=== PATIENT | male | born 1945 | race Caucasian/White ===

== ENCOUNTER 2016-05-31 23:19 | Inpatient (IN) | payer OTHER, BC ==
[2016-05-31 23:43] VITALS: BMI 30.3
--- NOTE | 2016-06-01 01:01 | PDOC ---
History of Present Illness - General History Source: Patient <Ilya Ashford - Last Filed: 06/01/16 03:55> - General History Source: Patient Exam Limitations: No Limitations - History of Present Illness Initial Comments: 06/01/16 01:01 The patient is a 71 year old male with a significant past medical history of diabetes, GOUT, HTN, HLD, CAD s/p stents x3 and hiatal hernia who presents to the ED with complaints of shortness of breath for 2 weeks. The patient reports shortness of breath worsened with exertion. He state he is unable to go up half a flight of stairs without having to catch his breath. He notes he sleeps in a chair. Patient also reports pallor and generalized weakness associated with present symptoms. Patient states that for the last several months he has had recurrent pneumonia. He states he had a bronchoscopy and drained his right lung in March. He visited Dr. Waters last week and was diagnosed with a sinus infection and put on an antibiotic. Patient visited Dr. Trujillo yesterday and is scheduled for a bronchoscopy of the right lung on Friday. Denies fevers or chills. Denies chest pain or cough. Denies abdominal pain, nausea, vomiting, or diarrhea. Denies any other symptoms. PCP: Dr. Boris Rojas <Daniela Cramer - Last Filed: 06/01/16 07:01> - General Chief Complaint: Shortness of Breath Stated Complaint: SOB Time Seen by Provider: 06/01/16 00:56 Past History - Past Medical History Anemia: No Asthma: No Cancer: Yes (SKIN) Cardiac Disorders: Yes (STENTS ) CVA: No COPD: No (hx pneumonia) CHF: Yes Dementia: No Diabetes: Yes GI Disorders: No Disorders: No HTN: Yes Hypercholesterolemia: Yes Liver Disease: No Seizures: No Thyroid Disease: No - Surgical History Abdominal Surgery: Yes (HERNIA) Cardiac Surgery: Yes (STENTS /) Lung Surgery: (bronchoscopy 03/17) - Immunization History Td Vaccination: Yes Immunization Up to Date: Yes - Psycho/Social/Smoking Cessation Hx Anxiety: Yes Suicidal Ideation: No Smoking Status: No Smoking History: Unknown if ever smoked Have you smoked in the past 12 months: No Number of Cigarettes Smoked Daily: 0 If you are a former smoker, when did you quit?: 35 YEARS AGO 'Breaking Loose' booklet given: 08/15/15 Hx Alcohol Use: No Drug/Substance Use Hx: No Substance Use Type: None <Ilya Ashford - Last Filed: 06/01/16 03:55> <Daniela Cramer - Last Filed: 06/01/16 07:01> - Past Medical History Allergies/Adverse Reactions: Allergies Allergy/AdvReac Type Severity Reaction Status Date / Time pioglitazone HCl [From Actos] AdvReac Severe CHF Verified 05/31/16 23:39 Home Medications: Ambulatory Orders Allopurinol [Zyloprim -] 300 mg PO DAILY 04/03/14 Carvedilol 25 mg PO BID 04/03/14 Cholecalciferol (Vitamin D3) [Vitamin D3] 1,000 unit PO DAILY 04/03/14 Furosemide [Lasix -] 20 mg PO DAILY 04/03/14 Glyburide 10 mg PO BID 04/03/14 Aspirin [Ecotrin] 81 mg PO DAILY 03/26/16 Gabapentin 600 mg PO HS 03/26/16 Vitamin B Complex 1 each PO DAILY 03/26/16 Review of Systems - Review of Systems Able to Perform ROS?: Yes Comments:: 06/01/16 01:01 CONSTITUTIONAL: + generalized weakness No reported: Fever, Chills, Diaphoresis, Malaise, Loss of Appetite HEENT: No reported: Rhinorrhea, Nasal Congestion, Throat Pain, Throat Swelling, Difficulty Swallowing, Mouth Swelling, Ear Pain, Eye Pain, Visual Changes CARDIOVASCULAR: No reported: Chest Pain, Syncope, Palpitations, Irregular Heart Rate, Lightheadedness, Peripheral Edema RESPIRATORY: + Shortness of Breath, SOB with Exertion No reported: Cough, Orthopnea, Wheezing, Stridor, Hemoptysis GASTROINTESTINAL: No reported: Abdominal pain, Abdominal Distension, Nausea, Vomiting, Diarrhea, Constipation, Melena, Hematochezia GENITOURINARY: No reported: Dysuria, Frequency, Urgency, Hesitancy, Flank Pain, Genital Pain MUSCULOSKELETAL: No reported: Myalgia, Arthralgia, Joint Swelling, Back pain, Neck Pain SKIN: + pallor No reported: Rash, Itching HEMEATOLOGIC/IMMUNOLOGIC: No reported: Easy Bleeding, Easy Bruising, Lymphadenopathy, Frequent infections ENDOCRINE: No reported: Unexplained Weight Gain, Unexplained Weight Loss, Heat Intolerance , Cold Intolerance NEUROLOGIC: No reported: Headache, Focal Weakness, Paresthesias, Vertigo, Lightheadedness, Unsteady Gait, Seizure, Mental Status Changes, Incontinence PSYCHIATRIC: No reported: Anxiety, Depression All Other Systems: Reviewed and Negative <Daniela Cramer - Last Filed: 06/01/16 07:01> *Physical Exam - Vital Signs Last Vital Signs Temp Pulse Resp BP Pulse Ox 98.2 F 90 20 137/75 95 05/31/16 23:41 05/31/16 23:41 05/31/16 23:41 05/31/16 23:41 05/31/16 23:41 <BartraIlya - Last Filed: 06/01/16 03:55> - Vital Signs Last Vital Signs Temp Pulse Resp BP Pulse Ox 98.2 F 90 20 137/75 95 05/31/16 23:41 05/31/16 23:41 05/31/16 23:41 05/31/16 23:41 05/31/16 23:41 - Physical Exam Comments: 06/01/16 01:01 GENERAL: Well developed, well nourished. Awake and alert. No acute distress. HEENT: Normocephalic, atraumatic. PERRLA, EOMI. No conjunctival pallor. Sclera are non- icteric. Moist mucous membranes. Oropharynx is clear. NECK: Supple. Full ROM. No JVD. Carotid pulses 2+ and symmetric, without bruits. No thyromegaly. No lymphadenopathy. CARDIOVASCULAR: Regular rate and rhythm. No murmurs, rubs, or gallops. Distal pulses are 2+ and symmetric. PULMONARY: + diffuse wheezing most prominent in the left upper lobe. No rales or rhonchi. ABDOMINAL: Soft. Non-tender. Non-distended. No rebound or guarding. No organomegaly. Normoactive bowel sounds. MUSCULOSKELETAL Normal range of motion at all joints. No bony deformities or tenderness. No CVA tenderness. EXTREMITIES: No cyanosis. No clubbing. No edema. No calf tenderness. SKIN: Warm and dry. Normal capillary refill. No rashes. No jaundice. NEUROLOGICAL: Alert, awake, appropriate. Cranial nerves 2-12 intact. No deficits to light touch and temperature in face, upper extremities and lower extremities. No motor deficits in the in face, upper extremities and lower extremities. Normoreflexic in the upper and lower extremities. Normal speech. Toes are down- going bilaterally. Gait is normal without ataxia. PSYCHIATRIC: Cooperative. Good eye contact. Appropriate mood and affect. <Daniela Cramer - Last Filed: 06/01/16 07:01> Heart Score/ECG Review #1 06/01/16 01:01 Reviewed and interpreted by Dr. Ashford: Impression: Sinus rhythm with occasional premature ventricular complexes Possible Left atrial enlargement Left axis deviation Anteroseptal infarct, age undetermined T wave abnormality, consider lateral ischemia Vent rate 93 bpm [place] interval 192 ms QRS duration 100 ms <Daniela Cramer - Last Filed: 06/01/16 07:01> ED Treatment Course - LABORATORY CBC & Chemistry Diagram: 06/01/16 01:20 06/01/16 01:20 <Ilya Ashford - Last Filed: 06/01/16 03:55> - LABORATORY CBC & Chemistry Diagram: 06/01/16 01:20 06/01/16 01:20 - RADIOLOGY Radiograph Interpretation: 06/01/16 07:01 CHEST X-RAY: Impression: Pneumonia Reported by: Dr. Ashford <Daniela Cramer - Last Filed: 06/01/16 07:01> Medical Decision Making - Medical Decision Making 06/01/16 03:55 Dr. Ashford: The scribe's documentation has been prepared under my direction and personally reviewed by me in its entirery. I confirm that the note above accurately reflects all work, treatment, procedures, and medical decision making performed by me. <Ilya Ashford - Last Filed: 06/01/16 03:55> *DC/Admit/Observation/Transfer - Discharge Dispostion Admit: Yes <Ilya Ashford - Last Filed: 06/01/16 03:55> <Daniela Cramer - Last Filed: 06/01/16 07:01> Diagnosis at time of Disposition: Pneumonia Qualifiers: Laterality: right Lung location: lower lobe of lung - Referrals
[2016-06-01 01:46] LABS: BASOPHIL 0.9 % (0-2.0); EOSINOPHIL 5.3 % (0-4.5); MCH 29.5 pg (25.7-33.7); MCHC 32.3 g/dl (32.0-35.9); MEAN CELL VOLUME 91.4 fl (80-96); MEAN PLT VOLUME 8.3 fl (7.5-11.1); NEUTROPHILS 54.9 % (42.8-82.8); PLATELET COUNT 168 K/MM3 (134-434); RDW 19.6 % (11.9-15.9); WHITE BLOOD COUNT 5.7 K/mm3 (4.0-10.0)
[2016-06-01 02:38] LABS: ALBUMIN 2.7 g/dl (3.4-5.0); ANION GAP 11 (8-16); BILIRUBIN,TOTAL 0.7 mg/dL (0.2-1.0); CALCIUM 8.4 mg/dL (8.5-10.1); CO2 28 mmol/L (21-32); CREATININE 1.1 mg/dL (0.7-1.3); GLUCOSE,RANDOM 170 mg/dL (74-106); MAGNESIUM 1.9 mg/dL (1.8-2.4); SGOT/AST 13 U/L (15-37); SGPT/ALT 29 U/L (12-78); TOT PROT 7.2 g/dl (6.4-8.2)
[2016-06-01 02:40] LABS: ALK PHOS 129 U/L (45-117)
[2016-06-01] MEDS ORDERED: LORAZEPAM CARPU-JECT 2 MG/ML DISP.SYRIN IVPUSH ONE ×2 (02:48→05:49)
[2016-06-01] MEDS ORDERED: LORAZEPAM CARPU-JECT 2 MG/ML DISP.SYRIN ONE ×2 (02:52→05:50)
[2016-06-01] MEDS ORDERED: LEVOFLOXACIN 750 MG IVPB 150 ML IVPB ONE ×2 (03:53→22:00)
--- NOTE | 2016-06-01 04:02 | PN ---
Teaching Attending Note ATTENDING PHYSICIAN STATEMENT I saw and evaluated the patient. I reviewed the resident's note and discussed the case with the resident. I agree with the resident's findings and plan as documented. SUBJECTIVE: OBJECTIVE: ASSESSMENT AND PLAN:
[2016-06-01] MEDS ORDERED: FUROSEMIDE 40 MG/4 ML INJECTABLE VIAL IVPUSH ONE (04:04)
--- NOTE | 2016-06-01 04:05 | PN ---
<Jacqueline Sharma - Last Filed: 06/01/16 04:04> Teaching Attending Note Name of Resident: Marisela Jenkins ATTENDING PHYSICIAN STATEMENT I saw and evaluated the patient. I reviewed the resident's note and discussed the case with the resident. I agree with the resident's findings and plan as documented. SUBJECTIVE: OBJECTIVE: ASSESSMENT AND PLAN: <Flor Villayna - Last Filed: 06/01/16 04:54> Teaching Attending Note ATTENDING PHYSICIAN STATEMENT I saw and evaluated the patient. I reviewed the resident's note and discussed the case with the resident. I agree with the resident's findings and plan as documented. SUBJECTIVE: The patient is a 71 year old male with a significant past medical history of diabetes, HTN, HLD, CAD s/p stents x3, gout and hiatal hernia who presents to the ED with complaints of shortness of breath for two weeks. He notes his SOB is worse with exertion. He also reports severe orthopnea. States that he had recurrent pneumonia and s/p bronch of right lung. He notes recent dx of sinusitis was placed on abx. He states he has a bronchoscopy of right lung on 06/04. He denies any chest pain or pressure. He also notes that SOB has improved. OBJECTIVE: Physical: VS: Last Vital Signs Temp Pulse Resp BP Pulse Ox 98.2 F 90 20 137/75 95 05/31/16 23:41 05/31/16 23:41 05/31/16 23:41 05/31/16 23:41 05/31/16 23:41 GEN: resting in bed, no distress HEENT: NCAT, PERRLA CARD: RRR, S1S2 RESP: decreased breath sounds at bases bilaterally ABD: soft, non tender, BWS x4 EXT: 2+ pitting edema up to mid calf bilateral LE LABS: CBCD WBC 5.7 K/mm3 (4.0-10.0) D 06/01/16 01:20 RBC 4.03 M/mm3 (4.00-5.60) 06/01/16 01:20 Hgb 11.9 GM/dL (11.7-16.9) 06/01/16 01:20 Hct 36.9 % (35.4-49) 06/01/16 01:20 MCV 91.4 fl (80-96) 06/01/16 01:20 MCHC 32.3 g/dl (32.0-35.9) 06/01/16 01:20 RDW 19.6 % (11.9-15.9) H 06/01/16 01:20 Plt Count 168 K/MM3 (134-434) 06/01/16 01:20 MPV 8.3 fl (7.5-11.1) D 06/01/16 01:20 CMP Sodium 145 mmol/L (136-145) 06/01/16 01:20 Potassium 4.2 mmol/L (3.5-5.1) 06/01/16 01:20 Chloride 106 mmol/L (98-107) 06/01/16 01:20 Carbon Dioxide 28 mmol/L (21-32) 06/01/16 01:20 Anion Gap 11 (8-16) 06/01/16 01:20 BUN 27 mg/dL (7-18) H 06/01/16 01:20 Creatinine 1.1 mg/dL (0.7-1.3) 06/01/16 01:20 Creat Clearance w eGFR > 60 (>60) 06/01/16 01:20 Calcium 8.4 mg/dL (8.5-10.1) L 06/01/16 01:20 Total Bilirubin 0.7 mg/dL (0.2-1.0) 06/01/16 01:20 AST 13 U/L (15-37) L D 06/01/16 01:20 ALT 29 U/L (12-78) 06/01/16 01:20 Alkaline Phosphatase 129 U/L (45-117) H 06/01/16 01:20 Total Protein 7.2 g/dl (6.4-8.2) 06/01/16 01:20 Albumin 2.7 g/dl (3.4-5.0) L 06/01/16 01:20 ASSESSMENT AND PLAN: The patient is a 71 year old male with a significant past medical history of diabetes, HTN, HLD, CAD s/p stents x3, who presents with SOB being admitted for CHF and community acquired pneumonia. 1.) Community acquired pneumonia - Continue with Levaquin - Urine antigens - Sputum culture - CT chest with contrast 2.) CHF - ECHO in AM - No prior ECHO on record - Trend troponin - Chest Xray - mild vascular congestion, patchy infiltrates bilaterally - Fluid restrict - Strict I&O - Sodium restricted diet - Daily weight - S/p Lasix 40 IV 3.) Diabetes - Finger sticks - Q4 RISS 4.) CAD - Continue home meds 5.) HTN - Continue home meds 6.) HLD - Continue Statin - Continue home meds 7.) DVT ppx - Heparin 5,000 Q8 Admit to Med-Surg. Documentation prepared by Jamila Villa, acting as medical device sales for Jacqueline Sharma D.O.
--- NOTE | 2016-06-01 04:17 | HP ---
CHIEF COMPLAINT: I have trouble breathing PCP:Dr. Boris Rojas HISTORY OF PRESENT ILLNESS: This is a 71 YO M with PMH of DM, HTN, HLD, CHF, CAD s/p stents x3, skin CA, GOUT and hiatal hernia, who presents due to worsening SOB x 2 weeks. He reports worsening exertional SOB, unable to climb half a flight of stairs, worsening orthopnea (sleeps litting up) and cough productive of clear flem. He also reports generalized weakness and LE edema. In March he was hospitalized with R middle and lower lobe PNA and had a bronchoscopy of R lung done by Dr Paul. 1 Month ago he had a chest CT that showed persistent R mid lobe atelectais, scarring and infiltrate and persistent RLL atelectasis, scarring and trace effusion. 1 W ago he was diagnosed by [facility] with sinus infection due to copious green nasal discharge and was placed on abx with symptom resolution. He saw Dr. Trujillo yesterday and is scheduled for a bronchoscopy of the R lung on Fri. He denies f/c, chest pain, palpitations, hemoptysis, n/v, diarrhea/ costipation or dysuria. ER course was notable for: (1)lasix, levaquion (2)cxr (3)labs Recent Travel: denies PAST MEDICAL HISTORY: as above PAST SURGICAL HISTORY: hernia repair, cardiac stents 1994, 1995, broncoscopy Social History: lives at home Smoking: denies Alcohol:denies Drugs: denies Allergies pioglitazone HCl [From Actos] Adverse Reaction (Severe, Verified 05/31/16 23:39) HOME MEDICATIONS: Medication Instructions Recorded Allopurinol [Zyloprim -] 300 mg PO DAILY 04/03/14 Carvedilol 25 mg PO BID 04/03/14 Cholecalciferol (Vitamin D3) 1,000 unit PO DAILY 04/03/14 [Vitamin D3] Furosemide [Lasix -] 20 mg PO DAILY 04/03/14 Glyburide 10 mg PO BID 04/03/14 Aspirin [Ecotrin] 81 mg PO DAILY 03/26/16 Gabapentin 600 mg PO HS 03/26/16 Vitamin B Complex 1 each PO DAILY 03/26/16 REVIEW OF SYSTEMS CONSTITUTIONAL: Absent: fever, chills, loss of appetite, weight change HEENT: Absent: rhinorrhea, throat pain, throat swelling, difficulty swallowing, ear pain CARDIOVASCULAR: Absent: chest pain, syncope, palpitations, irregular heart rate, lightheadedness RESPIRATORY: Absent: wheezing, stridor, hemoptysis GASTROINTESTINAL: Absent: abdominal pain, abdominal distension, nausea, vomiting, diarrhea, constipation GENITOURINARY: Absent: dysuria MUSCULOSKELETAL: Absent: myalgia, arthralgia SKIN: Absent: rash, itching, pallor HEMATOLOGIC/IMMUNOLOGIC: Absent: frequent infections ENDOCRINE: Absent: unexplained weight gain, unexplained weight loss NEUROLOGIC: Absent: headache, focal weakness or paresthesias, dizziness, unsteady gait, seizure PSYCHIATRIC: Absent: anxiety, depression PHYSICAL EXAMINATION Vital Signs - 24 hr 05/31/16 23:41 Temperature 98.2 F Pulse Rate 90 Respiratory 20 Rate Blood Pressure 137/75 O2 Sat by Pulse 95 Oximetry (%) GENERAL: Awake, alert, and fully oriented, in no acute distress. HEAD: Normal with no signs of trauma. EYES: Pupils equal, round and reactive to light, extraocular movements intact, sclera anicteric, conjunctiva clear. EARS, NOSE, THROAT: oropharynx clear without exudates. Moist mucous membranes. NECK: supple without lymphadenopathy LUNGS: reduced breath sounds at bases b/l. bibasilar ronchi HEART: Regular rate and rhythm, normal S1 and S2 ABDOMEN: Soft, nontender, not distended, normoactive bowel sounds MUSCULOSKELETAL: No CVA tenderness. UPPER EXTREMITIES: 2+ pulses, warm, well-perfused. No peripheral edema. LOWER EXTREMITIES: 2+ pulses, warm, well-perfused. No calf tenderness. 2+ peripheral edema up to knees b/l. NEUROLOGICAL: Cranial nerves II-XII grossly intact. Slurred speech. PSYCHIATRIC: Cooperative. Good eye contact. Appropriate mood and affect. SKIN: Warm, dry Laboratory Results - last 24 hr 06/01/16 06/01/16 06/01/16 01:20 01:20 01:45 WBC 5.7 D RBC 4.03 Hgb 11.9 Hct 36.9 MCV 91.4 MCHC 32.3 RDW 19.6 H Plt Count 168 MPV 8.3 D Neutrophils % 54.9 Lymphocytes % 29.3 Monocytes % 9.6 Eosinophils % 5.3 H Basophils % 0.9 Sodium 145 Potassium 4.2 Chloride 106 Carbon Dioxide 28 Anion Gap 11 BUN 27 H Creatinine 1.1 Creat Clearance w eGFR > 60 Random Glucose 170 H D Lactic Acid 1.007 Calcium 8.4 L Magnesium 1.9 Total Bilirubin 0.7 AST 13 L D ALT 29 Alkaline Phosphatase 129 H B-Natriuretic Peptide 6071.45 H Total Protein 7.2 Albumin 2.7 L ASSESSMENT/PLAN: This is a 71 YO M with PMH of DM, HTN, HLD, CHF, CAD s/p stents x3, skin CA, GOUT and hiatal hernia, who presents due to worsening SOB x 2 weeks. + exertional SOB, +orthopnea +cough productive of clear flem +generalized weakness + LE edema. chest CT May 01: persistent R mid lobe atelectais, scarring and infiltrate and persistent RLL atelectasis, scarring and trace effusion. Today CXR: persistent R mid lobe atelectasisi compared to March but increased b/l vessel cephalization and bibasilar opacities Acute on chronic CHF exacerbation vs PNA -imaging and clinical presentation more consistent with chf exacerbation -BNP elevated 6071, no baseline to compare -trend trop -Ct chest w/o contrast -TTE -volume overloaded; s/p IV lasix; consider daily IV lasix -am BMP -Strict I and O, daily weights -continue levaquin -f/u blood cultures -Pulm consult HTN -diurese with IV lasix. -ideally should be on Acei or Arb HLD -lipid panel CAD -resume coreg 25 bid once confirmed -resume asa 81 once confirmed -resume clopidogrel once confirmed DM -fingerstick TIDAC -85 Kg weight based -Levemir 21 u HS -novolog 7 u TID AC -Sliding scale Gout -currently asymptomatic -resume allopurinol and colchicine once confirmed FEN diurese stable lytes DVT GI PPX: SCD, hep, PPI Diabetic diet Dispo: admit to med surge Problem List - Problem (1) Pneumonia Code(s): J18.9 - PNEUMONIA, UNSPECIFIED ORGANISM Qualifiers: Laterality: right Lung location: lower lobe of lung (2) CAD (coronary artery disease) Code(s): I25.10 - ATHSCL HEART DISEASE OF [place] CORONARY ARTERY W/O ANG PCTRS (3) HTN (hypertension) Code(s): I10 - ESSENTIAL (PRIMARY) HYPERTENSION (4) Hyperlipidemia Code(s): E78.5 - HYPERLIPIDEMIA, UNSPECIFIED (5) Insulin dependent diabetes mellitus Code(s): E11.9 - TYPE 2 DIABETES MELLITUS WITHOUT COMPLICATIONS Z79.4 - SKILLED NURSING (CURRENT) USE OF INSULIN (6) CHF (congestive heart failure) Code(s): I50.9 - HEART FAILURE, UNSPECIFIED (7) CHF (congestive heart failure), NYHA class III Code(s): I50.9 - HEART FAILURE, UNSPECIFIED (8) CHF exacerbation Code(s): I50.9 - HEART FAILURE, UNSPECIFIED Visit type - Emergency Visit Emergency Visit: Yes Care time: The patient presented to the Emergency Department on the above date and was hospitalized for further evaluation of their emergent condition. - New Patient This patient is new to me today: Yes Date on this admission: 06/01/16 - Critical Care Critical Care patient: No
[2016-06-01] MEDS ORDERED: LEVOFLOXACIN 250 MG IVPB 50 ML IVPB ONE (04:51)
[2016-06-01] MEDS ORDERED: FUROSEMIDE 40 MG/4 ML INJECTABLE VIAL ONE (04:51)
[2016-06-01] MEDS ORDERED: LEVOFLOXACIN 500 MG IVPB 100 ML IVPB ONE (04:51)
[2016-06-01] MEDS: INSULIN (NOVOLOG) ASPART 100 UNITS/ML 10ML VIAL SQ SCH ×3 (07:00→17:37)
[2016-06-01] MEDS ORDERED: INSULIN SLIDING SCALE (NOVOLOG) 1 VIAL SQ SCH (07:00)
[2016-06-01] MEDS ORDERED: PANTOPRAZOLE 20 MG TABLET (FP) PO SCH (10:00)
--- NOTE | 2016-06-01 10:21 | CONSULT ---
Consult Consult Specialty:: PULM/CCM Referred by:: ENA Reason for Consultation:: SOB - History of Present Illness Chief Complaint: SOB History of Present Illness: 71 M, with history of DM, HTN, HLD, CHF, CAD s/p stents x3, skin CA, gout, hiatal hernia, and Bronchoscopy 03/2016 here at [facility]. Microbiology on one sample revealed MRSA (? colonization). I do not see any cytology report. He was recently seen by ENT and was placed on an unknown ABX. He is schedule for a repeat bronchoscopy on 06/05/2016. Admitted due to [place], generalized weakness, bilateral LE edema, and orthopnea. No travel history or sick contacts. No hemoptysis. Denies fever or chills. CT Chest is pending. - History Source History Provided By: Patient, Medical Record Limitations to Obtaining History: Poor Historian - Past Medical History Cardio/Vascular: Yes: CAD, CHF, HTN, Hyperlipdemia, SC Gastrointestinal: Yes: GERD, Irritable Bowel Disease Renal/: Yes: BPH Musculoskeletal: Yes: Osteoarthritis Endocrine: Yes: Diabetes Mellitus, Other (Hypogonadism Nodular goiter) - Past Surgical History Past Surgical History: Yes: Cataract Removal (both eyes), Hernia Repair ( umbillical) - Alcohol/Substance Use Hx Alcohol Use: No History of Substance Use: reports: None - Smoking History Smoking history: Unknown if ever smoked Have you smoked in the past 12 months: No Aproximately how many cigarettes per day: 0 If you are a former smoker, when did you quit?: 35 YEARS AGO - Social History ADL: Independent History of Recent Travel: No Home Medications - Allergies Allergies/Adverse Reactions: Allergies Allergy/AdvReac Type Severity Reaction Status Date / Time pioglitazone HCl [From Actos] AdvReac Severe CHF Verified 05/31/16 23:39 - Home Medications Home Medications: Ambulatory Orders Allopurinol [Zyloprim -] 300 mg PO DAILY 04/03/14 Carvedilol 25 mg PO BID 04/03/14 Cholecalciferol (Vitamin D3) [Vitamin D3] 1,000 unit PO DAILY 04/03/14 Furosemide [Lasix -] 20 mg PO DAILY 04/03/14 Glyburide 10 mg PO BID 04/03/14 Aspirin [Ecotrin] 81 mg PO DAILY 03/26/16 Gabapentin 600 mg PO HS 03/26/16 Vitamin B Complex 1 each PO DAILY 03/26/16 Review of Systems - Review of Systems Constitutional: reports: Lethargy, Loss of Appetite, Malaise, Weakness. denies : Chills, Fever, Night Sweats Eyes: reports: No Symptoms HENT: reports: Nasal Congestion. denies: Epistaxis Neck: reports: No Symptoms Cardiovascular: reports: Edema, Shortness of Breath. denies: Chest Pain, Palpitations Respiratory: reports: Cough, Orthopnea, Snoring, SOB, SOB on Exertion. denies: Hemoptysis, Wheezing Gastrointestinal: reports: No Symptoms Genitourinary: reports: No Symptoms Musculoskeletal: reports: Muscle Cramps, Muscle Weakness Integumentary: reports: No Symptoms Neurological: reports: No Symptoms Endocrine: reports: No Symptoms Hematology/Lymphatic: reports: No Symptoms Psychiatric: reports: No Symptoms Physical Exam Vital Sings: Vital Signs Temperature 98.2 F 05/31/16 23:41 Pulse Rate 87 06/01/16 09:37 Respiratory Rate 18 06/01/16 09:37 Blood Pressure 137/80 06/01/16 09:37 O2 Sat by Pulse Oximetry (%) 99 06/01/16 09:37 Constitutional: Yes: No Distress, Calm, Pallor Eyes: Yes: WNL, Conjunctiva Clear, EOM Intact HENT: Yes: Atraumatic, Normocephalic. No: Epistaxis, Pharyngeal Erythema Neck: Yes: WNL Cardiovascular: Yes: Regular Rate and Rhythm. No: JVD, Gallop Respiratory: Yes: Diminished, On Nasal O2, Rhonchi. No: Accessory Muscle Use, Stridor, Wheezes ...Inspection: Yes: WNL ...Clubbing: No Gastrointestinal: Yes: Normal Bowel Sounds, Soft Musculoskeletal: Yes: WNL Extremities: Yes: WNL Edema: Yes Peripheral Pulses WNL: Yes Integumentary: Yes: WNL Neurological: Yes: Alert, Oriented. No: Dysarthria, Facial Droop ...Motor Strength: WNL Psychiatric: Yes: Alert, Oriented Imaging - Results Chest X-ray: Report Reviewed, Image Reviewed (Bilateral congestive changes / infiltrates / cephalization of vessels) Problem List - Problems (1) CHF (congestive heart failure) Code(s): I50.9 - HEART FAILURE, UNSPECIFIED (2) CHF exacerbation Code(s): I50.9 - HEART FAILURE, UNSPECIFIED (3) Pneumonia Code(s): J18.9 - PNEUMONIA, UNSPECIFIED ORGANISM Qualifiers: Laterality: right Lung location: lower lobe of lung (4) CAD (coronary artery disease) Code(s): I25.10 - ATHSCL HEART DISEASE OF [place] CORONARY ARTERY W/O ANG PCTRS (5) HTN (hypertension) Code(s): I10 - ESSENTIAL (PRIMARY) HYPERTENSION (6) Hyperlipidemia Code(s): E78.5 - HYPERLIPIDEMIA, UNSPECIFIED (7) Insulin dependent diabetes mellitus Code(s): E11.9 - TYPE 2 DIABETES MELLITUS WITHOUT COMPLICATIONS Z79.4 - NURSING HOME (CURRENT) USE OF INSULIN Assessment/Plan PLAN: Agree with empiric Levaquin MRSA on bronchoscopy from 03/2016 may be colonization Repeat sputums O2 to maintain saturation For CT Chest BD TX Daily Medrol Daily assessment for Lasix If stable -> Bronchoscopy is scheduled Dr Bella
[2016-06-01] MEDS ORDERED: HEPARIN NA (PORCINE) 5,000 UNITS/ML 1ML VIAL ONE (11:09)
[2016-06-01] MEDS: PANTOPRAZOLE 40 MG TABLET (FP) PO SCH (11:16)
[2016-06-01] MEDS: HEPARIN NA (PORCINE) 5,000 UNITS/ML 1ML VIAL SQ SCH ×2 (11:16→22:05)
[2016-06-01] MEDS: INSULIN SLIDING SCALE (NOVOLOG) 1 VIAL SQ SCH ×2 (11:42→17:22)
[2016-06-01] MEDS ORDERED: INSULIN (NOVOLOG) ASPART 100 UNITS/ML 10ML VIAL ONE (11:44)
[2016-06-01] MEDS ORDERED: ONDANSETRON 4 MG/2 ML VIAL ONE (11:59)
[2016-06-01] MEDS ORDERED: ONDANSETRON 4 MG/2 ML VIAL IVPUSH ONE (11:59)
--- NOTE | 2016-06-01 13:54 | EKG ---
Test Reason : Blood Pressure : / mmHG Vent. Rate : 093 BPM Atrial Rate : 093 BPM P-R Int : 192 ms QRS Dur : 100 ms QT Int : 356 ms P-R-T Axes : 050 -34 126 degrees QTc Int : 442 ms POOR DATA QUALITY, INTERPRETATION MAY BE ADVERSELY AFFECTED SINUS RHYTHM WITH OCCASIONAL PREMATURE VENTRICULAR COMPLEXES POSSIBLE LEFT ATRIAL ENLARGEMENT LEFT AXIS DEVIATION ANTEROSEPTAL INFARCT (CITED ON OR BEFORE 26-MAR-2016) T WAVE ABNORMALITY, CONSIDER LATERAL ISCHEMIA ABNORMAL ECG Confirmed by MD YUSRA, CAROLINE ([id number]) on 06/01/2016 1:54:33 PM Referred By: Overread By: CAROLINE MENG MD
[2016-06-01 16:44] LABS: CALCIUM 8.7 mg/dL (8.5-10.1); MAGNESIUM 1.9 mg/dL (1.8-2.4); PHOSPHOROUS 4.2 mg/dL (2.5-4.9)
--- NOTE | 2016-06-01 16:58 | HOSP ---
Subjective - Review of Symptoms Subjective: resting comfortable in bed. states SOB has significantly improved since admission. continues to have non productive cough. denies CP, SOB, fever, chills. General Lethargic Lungs coarse breath sounds anteriorly. no wheezing Plan: 1. CAP- currently saturating 97% on 2L NC. on Levaquin. Ulegionella pending. f/ u Cx. pulmonary consulted. and possibility of bronch. will hold asa/plavix for possible procedure. continue supplemental oxygen to maintain SpO2 >90% 2. Acute CHF exacerbation- no old echo to review. lasix 40mg given today with good effect. will cont for now, strict I&O, daily weights 3. DM- hold oral hypoglycemics. cont lantus. iss, bgm 4. HTN- controlled. 5. DVT ppx- hep sq Physical Examination Vital Signs: Vital Signs Temperature 98.2 F 05/31/16 23:41 Pulse Rate 88 06/01/16 15:03 Respiratory Rate 18 06/01/16 15:03 Blood Pressure 121/88 06/01/16 15:03 O2 Sat by Pulse Oximetry (%) 100 06/01/16 15:03 Labs: CBC, BMP 06/01/16 16:10
[2016-06-01] MEDS: CARVEDILOL 25 MG TABLET (FP) PO SCH (21:57)
[2016-06-01] MEDS: GABAPENTIN 300 MG CAPSULE (FP) PO SCH (21:57)
[2016-06-01] MEDS ORDERED: INSULIN DETEMIR 100 UNITS/ML MDV SQ SCH (22:00)
[2016-06-02 00:19] LABS: TROPONIN I 0.07 ng/ml (0.00-0.05)
[2016-06-02] MEDS: INSULIN (NOVOLOG) ASPART 100 UNITS/ML 10ML VIAL SQ SCH (06:33)
[2016-06-02] MEDS: INSULIN SLIDING SCALE (NOVOLOG) 1 VIAL SQ SCH ×3 (06:34→17:19)
[2016-06-02] MEDS ORDERED: DEXTROSE 50%-WATER 50 ML VIAL IVPUSH ONE (07:28)
[2016-06-02] MEDS ORDERED: DEXTROSE 50%-WATER 50 ML DISP.SYRIN ONE (07:32)
--- NOTE | 2016-06-02 07:36 | PN ---
Physical Exam: SUBJECTIVE: Patient seen and examined at be side this am. Patient sitting comfortably reports feeling better, breathing better attributes it to oxygen NC.has occasional productive cough whitish to green. Denies fevers, chills , N/V/D, CP, palpitations, last BM 2 days ago. OBJECTIVE: Vital Signs Period Temp Pulse Resp BP Sys/Desai Pulse Ox Last 24 Hr 97.3 F-97.8 F 81-88 18-22 117-143/68-88 96-100 GENERAL: Awake, alert, and fully oriented, in no acute distress. HEAD: Normal with no signs of trauma. EYES: Pupils equal, round and reactive to light, extraocular movements intact, sclera anicteric, conjunctiva clear. EARS, NOSE, THROAT: oropharynx clear without exudates. Moist mucous membranes. NECK: supple without lymphadenopathy LUNGS: reduced breath sounds at bibasilar , bibasilar ronchi HEART: Regular rate and rhythm, normal S1 and S2 ABDOMEN: Soft, nontender, not distended, normoactive bowel sounds MUSCULOSKELETAL: No CVA tenderness. LOWER EXTREMITIES: 2+ pulses, warm, well-perfused. No calf tenderness. 2+ peripheral edema up to knees b/l. NEUROLOGICAL: Cranial nerves II-XII grossly intact. Slurred speech. PSYCHIATRIC: Cooperative. Good eye contact. Appropriate mood and affect. SKIN: Warm, dry Laboratory Results - last 24 hr 06/01/16 06/01/16 06/01/16 07:51 11:38 16:10 Sodium 141 Potassium 4.5 Chloride 104 Carbon Dioxide 29 Anion Gap 8 BUN 24 H Creatinine 1.0 POC Glucometer 142.94137 [phone] Random Glucose 154 H Calcium 8.7 Phosphorus 4.2 Magnesium 1.9 Creatine Kinase Troponin I 06/01/16 06/01/16 06/01/16 16:10 17:17 22:00 Sodium Potassium Chloride Carbon Dioxide Anion Gap BUN Creatinine POC Glucometer 140 128 Random Glucose Calcium Phosphorus Magnesium Creatine Kinase Troponin I 0.07 H 06/01/16 06/02/16 23:30 06:32 Sodium Potassium Chloride Carbon Dioxide Anion Gap BUN Creatinine POC Glucometer 50 Random Glucose Calcium Phosphorus Magnesium Creatine Kinase 64 Troponin I 0.07 H Active Medications Generic Name Dose Route Start Last Admin Trade Name Freq PRN Reason Stop Dose Admin Carvedilol 25 mg 06/01/16 22:00 06/01/16 21:57 Coreg - PO 25 mg BID MARY Administration Cholecalciferol 1,000 unit 06/02/16 10:00 Vitamin D3 - PO DAILY MARY Clopidogrel Bisulfate 75 mg 06/02/16 10:00 Plavix - PO DAILY MARY Gabapentin 600 mg 06/01/16 22:00 06/01/16 21:57 Neurontin - PO 600 mg HS MARY Administration Heparin Sodium (Porcine) 5,000 unit 06/01/16 10:00 06/01/16 22:05 Heparin - SQ 5,000 unit BID MARY Administration Levofloxacin 150 mls @ 100 mls/hr 06/02/16 10:00 Levaquin 750 Mg Premixed Ivpb - IVPB DAILY [facility] Insulin Aspart 7 units 06/01/16 07:00 06/02/16 06:33 Novolog Vial SQ Not Given TIDAC [facility] Protocol Insulin Aspart 1 vial 06/01/16 08:04 06/02/16 06:34 Novolog Vial Sliding Scale - SQ Not Given TIDAC [facility] Protocol Insulin Detemir 21 units 06/01/16 22:00 06/01/16 22:05 Levemir Vial SQ Not Given HS MARY Pantoprazole Sodium 40 mg 06/01/16 10:00 06/01/16 11:16 Protonix - PO 40 mg DAILY MARY Administration Active Medications Levofloxacin (Levaquin 750 Mg Premixed Ivpb -) 150 mls @ 100 mls/hr IVPB DAILY [facility] Carvedilol (Coreg -) 25 mg PO BID [facility] Cholecalciferol (Vitamin D3 -) 1,000 unit PO DAILY [facility] Clopidogrel Bisulfate (Plavix -) 75 mg PO DAILY [facility] Gabapentin (Neurontin -) 600 mg PO HS [facility] Insulin Aspart (Novolog Vial) 7 units SQ TIDAC [facility] Insulin Aspart (Novolog Vial Sliding Scale -) 1 vial SQ TIDAC [facility] Insulin Detemir (Levemir Vial) 21 units SQ HS [facility] Pantoprazole Sodium (Protonix -) 40 mg PO DAILY [facility] Heparin Sodium (Porcine) (Heparin -) 5,000 unit SQ BID SC ASSESSMENT/PLAN: BS in 50's and 40's thsi am, despite levemir or ISS was held last night: gave 1 am 50% dextrose, repeat BS This is a 71 YO M with PMH of DM, HTN, HLD, CHF, CAD s/p stents x3, skin CA, GOUT and hiatal hernia, who presents due to worsening SOB x 2 weeks. +exertional SOB, +orthopnea +cough productive of clear flem +generalized weakness + LE edema. chest CT May 01: persistent R mid lobe atelectais, scarring and infiltrate and persistent RLL atelectasis, scarring and trace effusion. CXR: persistent R mid lobe atelectasisi compared to March but increased b/l vessel cephalization and bibasilar opacities Acute on chronic CHF exacerbation vs PNA-imaging and clinical presentation more consistent with chf exacerbation: saturating 95% on 2L NC. -BNP elevated 6071, no baseline to compare -trend trop -Ct chest w/o contrast -TTE -plan for outpatient bronchoscopy prior to admission. plan to do inpatient vs thoracentesis? per pulmonary. -am BMP -Strict I and O, daily weights -continue levaquin day 2 -f/u blood cultures - continue to diurese HTN -diurese with IV lasix. -ideally should be on Acei or Arb HLD -lipid panel CAD -resume coreg 25 bid once confirmed -resume asa 81 once confirmed -resume clopidogrel once confirmed DM_ episode hypoglycemia over night will hold novolog standing and lantus and monitor sugars -fingerstick TIDAC -85 Kg weight based -Sliding scale will slowly re-start meds and titrate to optimize control. Gout -currently asymptomatic -resume allopurinol and colchicine once confirmed FEN diurese stable lytes DVT GI PPX: SCD, hep, PPI Diabetic diet Dispo: admit to med surge Visit type - Emergency Visit Emergency Visit: Yes ED Registration Date: 06/01/16 Care time: The patient presented to the Emergency Department on the above date and was hospitalized for further evaluation of their emergent condition. - New Patient This patient is new to me today: No - Critical Care Critical Care patient: No
[2016-06-02 08:08] LABS: BASOPHIL 0.6 % (0-2.0); EOSINOPHIL 3.2 % (0-4.5); MCH 30.4 pg (25.7-33.7); MEAN CELL VOLUME 92.3 fl (80-96); MEAN PLT VOLUME 8.5 fl (7.5-11.1); NEUTROPHILS 69.9 % (42.8-82.8); PLATELET COUNT 158 K/MM3 (134-434); WHITE BLOOD COUNT 7.1 K/mm3 (4.0-10.0)
[2016-06-02 08:20] LABS: ALBUMIN 2.5 g/dl (3.4-5.0); BILIRUBIN,TOTAL 0.9 mg/dL (0.2-1.0); CALCIUM 8.8 mg/dL (8.5-10.1); CREATININE 1.3 mg/dL (0.7-1.3); TOT PROT 6.6 g/dl (6.4-8.2)
--- NOTE | 2016-06-02 10:45 | PN ---
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 (short form) - Note 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: PULMONARY MILD SUBJECTIVE IMPROVEMENT VSS/ ANICTERIC DIMINISHED BREATH SOUNDS WITH DULLNESS TO PERCUSSION B/L BASES R>L S1S2 W ECTOPICS BS+ NO EDEMA LABS/MEDS/NOTES/IMAGING/MICRO REVIEWED B/L LARGE PLEURAL EFFUSIONS W COMPRESSIVE ATELECTASIS CAD/PCI STENTS DM/GOUT/HTN/HPL/H/H WOULD CHECK ECHO HOLD PLAVIX FOR THORACENTESIS CONSIDER CARDIOLOGY CONSULT WILL FOLLOW Yusuf ARGUELLO MD
[2016-06-02] MEDS ORDERED: INSULIN (NOVOLOG) ASPART 100 UNITS/ML 10ML VIAL ONE ×2 (11:07→16:59)
[2016-06-02] MEDS: PANTOPRAZOLE 40 MG TABLET (FP) PO SCH (11:09)
[2016-06-02] MEDS: CLOPIDOGREL BISULFATE 75 MG TABLET (FP) PO SCH ×2 (11:09→11:23)
[2016-06-02] MEDS: CHOLECALCIFEROL (VITAMIN D3) 1,000 UNIT TABLET (FP) PO SCH (11:09)
[2016-06-02] MEDS: HEPARIN NA (PORCINE) 5,000 UNITS/ML 1ML VIAL SQ SCH ×3 (11:10→23:01)
[2016-06-02] MEDS: LEVOFLOXACIN 750 MG IVPB 150 ML IVPB SCH (11:10)
[2016-06-02] MEDS: CARVEDILOL 25 MG TABLET (FP) PO SCH ×2 (11:10→21:10)
[2016-06-02] MEDS ORDERED: FUROSEMIDE 40 MG/4 ML INJECTABLE VIAL IVPUSH ONE (12:25)
--- NOTE | 2016-06-02 14:18 | PN ---
Teaching Attending Note Name of Resident: Kena Daigle ATTENDING PHYSICIAN STATEMENT I saw and evaluated the patient. I reviewed the resident's note and discussed the case with the resident. I agree with the resident's findings and plan as documented. SUBJECTIVE:states his breathing has improved but continues to be dyspnic at rest. has occasional productive cough whitish to green. but this has improved over the course of the past month. states he feels like he still requires oxygen. does not use at home. denies CP, fever, chills, N/V/C/D OBJECTIVE: Last Vital Signs Temp Pulse Resp BP Pulse Ox 97.3 F L 74 16 107/53 96 06/02/16 06:00 06/02/16 06:00 06/02/16 06:00 06/02/16 06:00 06/01/16 21:00 Intake & Output 05/30/16 05/31/16 06/01/16 06/02/16 23:59 23:59 23:59 23:59 Output Total 400 Balance -400 Weight 188 lb 182 lb 4 oz 181 lb 6.4 oz General NAD A&Ox3 CV S1 S2 RRR no murmur/rub/gallop Lungs course breath sounds diffusely. decreased breath sound at the bases ASSESSMENT AND PLAN: 71yo M with PMH CHF, DM, HTN, CAD s/p stent, presented to the ER and was admitted for further evaluation of their emergent condition 1. SOB- likley due to PNA and pleural effusion. clinically improved since yesterday. saturating 95% on 2L NC. productive cough improving. cont levaquin day 2. plan for outpatient bronchoscopy prior to admission. plan to do inpatient vs thoracentesis? per pulmonary. will cont to diurese (decrease 7 pounds since admission). if no improvement in effusion sounds reasonable. hold asa/plavix for pending procedure 2. DM- episode of hypoglycemia this morning, improved with d50 amp. will hold novolog standing and lantus and monitor sugars. expected to improve now that mental status is improved and eating better. will slowly re-start meds and titrate to optimize control. cont iss, diabetic diet 3. HTN- controlled. cont coreg. holding clnidine patch. 4. DVT ppx- hep sq
[2016-06-02] MEDS ORDERED: MAG HYDROX/AL HYDROX/SIMETH 30 ML UNIT-DOSE CUP PO ONE (20:57)
[2016-06-02] MEDS: GABAPENTIN 300 MG CAPSULE (FP) PO SCH (21:10)
[2016-06-02] MEDS ORDERED: ALPRAZolam 0.25 MG TABLET PO ONE (21:21)
[2016-06-03] MEDS: INSULIN SLIDING SCALE (NOVOLOG) 1 VIAL SQ SCH ×3 (06:14→16:51)
[2016-06-03 08:51] LABS: MCH 30.6 pg (25.7-33.7); MCHC 32.8 g/dl (32.0-35.9); MEAN CELL VOLUME 93.4 fl (80-96); MEAN PLT VOLUME 8.7 fl (7.5-11.1); PLATELET COUNT 135 K/MM3 (134-434); RDW 19.7 % (11.9-15.9); WHITE BLOOD COUNT 6.1 K/mm3 (4.0-10.0)
[2016-06-03 09:18] LABS: CALCIUM 8.7 mg/dL (8.5-10.1); CREATININE 1.8 mg/dL (0.7-1.3); MAGNESIUM 2.1 mg/dL (1.8-2.4); PHOSPHOROUS 4.5 mg/dL (2.5-4.9)
--- NOTE | 2016-06-03 09:32 | PN ---
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, Physician History of Present Illness: pulmonary alert,feeling better,less dyspneic,+cough - Current Medication List Current Medications: Active Medications Carvedilol (Coreg -) 25 mg PO BID [facility] Last Admin: 06/02/16 21:10 Dose: 25 mg Cholecalciferol (Vitamin D3 -) 1,000 unit PO DAILY [facility] Last Admin: 06/02/16 11:09 Dose: 1,000 unit Clopidogrel Bisulfate (Plavix -) 75 mg PO DAILY [facility] Last Admin: 06/02/16 11:23 Dose: Not Given Gabapentin (Neurontin -) 600 mg PO HS [facility] Last Admin: 06/02/16 21:10 Dose: 600 mg Heparin Sodium (Porcine) (Heparin -) 5,000 unit SQ BID [facility] Last Admin: 06/02/16 23:01 Dose: 5,000 unit Levofloxacin (Levaquin 750 Mg Premixed Ivpb -) 150 mls @ 100 mls/hr IVPB DAILY [facility] Last Admin: 06/02/16 11:10 Dose: 100 mls/hr Insulin Aspart (Novolog Vial Sliding Scale -) 1 vial SQ TIDAC [facility] PRN Reason: Protocol Last Admin: 06/03/16 06:14 Dose: Not Given Pantoprazole Sodium (Protonix -) 40 mg PO DAILY [facility] Last Admin: 06/02/16 11:09 Dose: 40 mg - Objective Vital Signs: Vital Signs Temperature 97.9 F 06/03/16 06:03 Pulse Rate 82 06/03/16 06:03 Respiratory Rate 20 06/03/16 06:03 Blood Pressure 106/60 06/03/16 06:03 O2 Sat by Pulse Oximetry (%) 95 06/02/16 21:00 Constitutional: Yes: Well Nourished, Calm Eyes: Yes: WNL HENT: Yes: WNL Neck: Yes: WNL Cardiovascular: Yes: Regular Rate and Rhythm, S1, S2 Respiratory: Yes: Diminished, Rales (few crackles on r) Gastrointestinal: Yes: Normal Bowel Sounds, Soft Extremities: Yes: WNL Edema: No Labs: CBC, BMP 06/03/16 07:20 06/03/16 07:20 - ....Imaging Chest X-ray: Report Reviewed, Image Reviewed (improving congestion,+r pleural effusion) Assessment/Plan Problem List - Problems (1) CHF (congestive heart failure) Code(s): I50.9 - HEART FAILURE, UNSPECIFIED clinically improving (2) CHF exacerbation Code(s): I50.9 - HEART FAILURE, UNSPECIFIED (3) Pneumonia Code(s): J18.9 - PNEUMONIA, UNSPECIFIED ORGANISM Qualifiers: Laterality: right Lung location: lower lobe of lung (4) CAD (coronary artery disease) Code(s): I25.10 - ATHSCL HEART DISEASE OF [place] CORONARY ARTERY W/O ANG PCTRS (5) HTN (hypertension) Code(s): I10 - ESSENTIAL (PRIMARY) HYPERTENSION (6) Hyperlipidemia Code(s): E78.5 - HYPERLIPIDEMIA, UNSPECIFIED (7) Insulin dependent diabetes mellitus Code(s): E11.9 - TYPE 2 DIABETES MELLITUS WITHOUT COMPLICATIONS Z79.4 - CHCF (CURRENT) USE OF INSULIN Assessment/Plan PLAN: Glenna STANTON CARDIOLOGY EVAL Repeat sputums O2 to maintain saturation BD TX Daily Medrol Thoracentesis Bronchoscopy later this week if cleared by cardiology
[2016-06-03] MEDS: HEPARIN NA (PORCINE) 5,000 UNITS/ML 1ML VIAL SQ SCH (10:02)
[2016-06-03] MEDS: PANTOPRAZOLE 40 MG TABLET (FP) PO SCH (10:03)
[2016-06-03] MEDS: LEVOFLOXACIN 750 MG IVPB 150 ML IVPB SCH (10:03)
[2016-06-03] MEDS: CHOLECALCIFEROL (VITAMIN D3) 1,000 UNIT TABLET (FP) PO SCH (10:03)
[2016-06-03] MEDS: CARVEDILOL 25 MG TABLET (FP) PO SCH ×2 (10:03→21:23)
--- NOTE | 2016-06-03 15:01 | CONSULT ---
Consult Consult Specialty:: Cardiology Referred by:: Dr. Trujillo Reason for Consultation:: Evaluate for possible CHF - History of Present Illness Chief Complaint: SOB History of Present Illness: 71 yo male with DM, HTN, hyperlipidemia, CHF, CAD, prior anterolateral MS 1994 w/ PCI of LAD & ramus, PCI of LAD 05/1996 (with 100% occluded ramus and patent RCA). He was admitted with worsening dsypnea over the past several weeks with productive cough. Patient recently treated in March for right middle and lower lobe pneumonia, and underwent bronchoscopy on 03/27/16. He was also recently diagnosed with sinus infection and was treated with antibiotics. CT chest on 06/01/16 demonstrate right middle lobe infiltrate, interstitial pulmonary vascular congestion, and moderate right sided and small left sided pleural effusion. Patient is currently pending repeat bronchoscopy and possible thoracentesis for pleural effusion. Patient was given furosemide 40 mg IV x1 on 06/01/16 and 06/02/16 with resulting renal failure with Cr 1.8 today (Normal Cr 1.1 on 06/01/16). BNP elevated at 6071 on admission. Cardiology was consulted for evaluation of possible CHF. Patient was last seen in our office by Dr. Chacon on 08/29/15. Prior cardiac studies: 1) 09/19/15 Lexiscan sestamibi: Medium sized moderate to severe infarct of apical , apical lateral, apical anterior, mid anterolateral, and mid to basal anterior moura. No ischemia in remainder of LV. Mild apical lateral and mid anterolateral hypokinesis with calculated LVEF 49%. 2) 09/06/15 Echocardiogram: Technically difficult study. Normal LV size and estimated LVEF 55-60%. Mild diastolic dysfunction. Min TR. No pulm HTN. - History Source History Provided By: Patient, Medical Record Limitations to Obtaining History: No Limitations - Past Medical History Cardio/Vascular: Yes: CAD (prior anterolateral MS 03/1995 w/ PCI of LAD & ramus , PCI of LAD 05/1996 (with 100% occluded ramus and patent RCA)), CHF, Hyperlipdemia, MS (anterolateral MS 1994) Gastrointestinal: Yes: GERD, Irritable Bowel Disease Renal/: Yes: BPH, Renal Calculi Musculoskeletal: Yes: Osteoarthritis Rheumatology: Yes: Gout Endocrine: Yes: Diabetes Mellitus, Other (Hypogonadism, nodular goiter) - Past Surgical History Past Surgical History: Yes: Cataract Removal (bilateral), Hernia Repair ( umbillical) Additional Surgical History: Salivary gland surgery 1999 -> benign tumor - Alcohol/Substance Use Hx Alcohol Use: No History of Substance Use: reports: None - Smoking History Smoking history: Unknown if ever smoked Have you smoked in the past 12 months: No Aproximately how many cigarettes per day: 0 If you are a former smoker, when did you quit?: 35 YEARS AGO - Social History ADL: Independent History of Recent Travel: No Home Medications - Allergies Allergies/Adverse Reactions: Allergies Allergy/AdvReac Type Severity Reaction Status Date / Time pioglitazone HCl [From Actos] AdvReac Severe CHF Verified 05/31/16 23:39 - Home Medications Home Medications: Ambulatory Orders Allopurinol [Zyloprim -] 300 mg PO DAILY 04/03/14 Carvedilol 25 mg PO BID 04/03/14 Cholecalciferol (Vitamin D3) [Vitamin D3] 1,000 unit PO DAILY 04/03/14 Furosemide [Lasix -] 20 mg PO DAILY 04/03/14 Glyburide 10 mg PO BID 04/03/14 Aspirin [Ecotrin] 81 mg PO DAILY 03/26/16 Gabapentin 600 mg PO HS 03/26/16 Vitamin B Complex 1 each PO DAILY 03/26/16 Clindamycin [Cleocin -] 150 mg PO Q6H 06/01/16 Clonidine Patch [Catapres Tts Patch -] 0.1 mg TD WEEKLY 06/01/16 Family Disease History - Family Disease History Family Disease History: Heart Disease: Mother (CHF) Review of Systems - Review of Systems Constitutional: reports: No Symptoms Eyes: reports: No Symptoms HENT: reports: No Symptoms Neck: reports: No Symptoms Cardiovascular: denies: Chest Pain, Edema, Palpitations, Shortness of Breath Respiratory: reports: Cough, SOB Gastrointestinal: reports: No Symptoms Genitourinary: reports: No Symptoms Endocrine: reports: No Symptoms Hematology/Lymphatic: reports: No Symptoms Psychiatric: reports: Anxiety Vital Signs: Vital Signs Temperature 97.6 F 06/03/16 10:00 Pulse Rate 80 06/03/16 11:12 Respiratory Rate 18 06/03/16 10:00 Blood Pressure 112/63 06/03/16 10:00 O2 Sat by Pulse Oximetry (%) 98 06/03/16 11:12 Constitutional: Yes: Well Nourished, No Distress Eyes: Yes: Conjunctiva Clear, EOM Intact HENT: Yes: Atraumatic, Normocephalic Respiratory: Yes: Diminished (at right base only) Gastrointestinal: Yes: Normal Bowel Sounds, Soft. No: Tenderness, Rebound Cardiovascular: Yes: Regular Rate and Rhythm JVD: No Carotid Bruit: No Heart Sounds: Yes: S1, S2 Murmur: No: Systolic Murmur Edema: No Peripheral Pulses WNL: No Neurological: Yes: Alert, Oriented, Cran Nerves II-XII Intact ...Motor Strength: WNL Psychiatric: Yes: Alert, Oriented - Other Data Labs, Other Data: CBC, BMP 06/03/16 07:20 06/03/16 07:20 06/01/16 ECG: Sinus rhythm with PVCs, anteroseptal infarct (old), non-specific ST-T abnormalities. No significant changes from ECG in our office on 08/29/15. Imaging - Results Chest X-ray: Report Reviewed (Right pleural effusion), Image Reviewed Cat Scan: Report Reviewed (06/01/[address]: Right middle lobe infiltrate, interstitial pulmonary vascular congestion, and moderate right sided and small left sided pleural effusion.) Assessment/Plan 71 yo male with DM, HTN, hyperlipidemia, CHF, CAD, prior anterolateral MS 1994 w/ PCI of LAD & ramus, PCI of LAD 05/1996 (with 100% occluded ramus and patent RCA). He was admitted with worsening dsypnea over the past several weeks with productive cough. Patient recently treated in March for right middle and lower lobe pneumonia, and underwent bronchoscopy on 03/27/16. He was also recently diagnosed with sinus infection and was treated with antibiotics. CT chest on 06/01/16 demonstrate right middle lobe infiltrate, interstitial pulmonary vascular congestion, and moderate right sided and small left sided pleural effusion. Patient is currently pending repeat bronchoscopy and possible thoracentesis for pleural effusion. Patient was given furosemide 40 mg IV x1 on 06/01/16 and 06/02/16 with resulting renal failure with Cr 1.8 today (Normal Cr 1.1 on 06/01/16). BNP elevated at 6071 on admission. Cardiology was consulted for evaluation of possible CHF. Prior cardiac studies: 1) 09/19/15 Lexiscan sestamibi: Medium sized moderate to severe infarct of apical , apical lateral, apical anterior, mid anterolateral, and mid to basal anterior moura. No ischemia in remainder of LV. Mild apical lateral and mid anterolateral hypokinesis with calculated LVEF 49%. 2) 09/06/15 Echocardiogram: Technically difficult study. Normal LV size and estimated LVEF 55-60%. Mild diastolic dysfunction. Min TR. No pulm HTN. 06/01/16 ECG: Sinus rhythm with PVCs, anteroseptal infarct (old), non-specific ST-T abnormalities. No significant changes from ECG in our office on 08/29/15. Low suspicion for grossly decompensated CHF at this time given acute renal failure with IV lasix (x 2 doses with normal Cr on admission), lack of peripheral edema, and no JVD currently. Suspect that patient's right pleural effusion is due to recent pneumonia treated in March. RECS: Would stop further diuresis at this time and would give IVF hydration to correct acute renal failure likely due to overdiuresis. Continue carvedilol. Repeat echo ordered and pending. Patient may proceed with right sided thoracentesis (for both therapeutic and diagnostic purposes) and bronchoscopy as per pulmonary service. There are no cardiac contraindications to pending procedures. Will follow. Call with questions. Plan discussed with hospitalist service.
[2016-06-03] MEDS ORDERED: SODIUM CHLORIDE 500 ML IV STA (15:38)
--- NOTE | 2016-06-03 16:57 | PN ---
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 (short form) - Note 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: states he is currently asymptomatic. denies SOB, fever, chills, cough, N/V/C/D Current Medications Generic Name Dose Route Start Last Admin Trade Name Amy PRN Reason Stop Dose Admin Carvedilol 25 mg 06/01/16 22:00 06/03/16 10:03 Coreg - PO 25 mg BID MARY Administration Cholecalciferol 1,000 unit 06/02/16 10:00 06/03/16 10:03 Vitamin D3 - PO 1,000 unit DAILY MARY Administration Gabapentin 600 mg 06/01/16 22:00 06/02/16 21:10 Neurontin - PO 600 mg HS MARY Administration Heparin Sodium (Porcine) 5,000 unit 06/01/16 10:00 06/03/16 10:02 Heparin - SQ 5,000 unit BID MARY Administration Levofloxacin 150 mls @ 100 mls/hr 06/02/16 10:00 06/03/16 10:03 Levaquin 750 Mg Premixed Ivpb - IVPB 100 mls/hr DAILY MARY Administration Insulin Aspart 1 vial 06/01/16 08:04 06/03/16 10:59 Novolog Vial Sliding Scale - SQ 4 unit TIDAC MARY Administration Protocol Pantoprazole Sodium 40 mg 06/01/16 10:00 06/03/16 10:03 Protonix - PO 40 mg DAILY MARY Administration Last Vital Signs Temp Pulse Resp BP Pulse Ox 97.8 F 78 20 109/62 98 06/03/16 14:27 06/03/16 14:27 06/03/16 14:27 06/03/16 14:27 06/03/16 11:12 General NAD A&Ox3 CV S1 S2 RRR no murmur/rub/gallop Lungs decreased breath sound R mid lung field to base no wheezing CBCD WBC 6.1 K/mm3 (4.0-10.0) 06/03/16 07:20 RBC 3.57 M/mm3 (4.00-5.60) L 06/03/16 07:20 Hgb 10.9 GM/dL (11.7-16.9) L 06/03/16 07:20 Hct 33.3 % (35.4-49) L 06/03/16 07:20 MCV 93.4 fl (80-96) 06/03/16 07:20 MCHC 32.8 g/dl (32.0-35.9) 06/03/16 07:20 RDW 19.7 % (11.9-15.9) H 06/03/16 07:20 Plt Count 135 K/MM3 (134-434) 06/03/16 07:20 MPV 8.7 fl (7.5-11.1) 06/03/16 07:20 CMP Sodium 141 mmol/L (136-145) 06/03/16 07:20 Potassium 4.6 mmol/L (3.5-5.1) 06/03/16 07:20 Chloride 105 mmol/L (98-107) 06/03/16 07:20 Carbon Dioxide 29 mmol/L (21-32) 06/03/16 07:20 Anion Gap 7 (8-16) L 06/03/16 07:20 BUN 32 mg/dL (7-18) H 06/03/16 07:20 Creatinine 1.8 mg/dL (0.7-1.3) H D 06/03/16 07:20 Creat Clearance w eGFR 54.11 (>60) 06/02/16 06:00 Calcium 8.7 mg/dL (8.5-10.1) 06/03/16 07:20 Total Bilirubin 0.9 mg/dL (0.2-1.0) D 06/02/16 06:00 AST 13 U/L (15-37) L 06/02/16 06:00 ALT 22 U/L (12-78) D 06/02/16 06:00 Alkaline Phosphatase 89 U/L (45-117) D 06/02/16 06:00 Total Protein 6.6 g/dl (6.4-8.2) 06/02/16 06:00 Albumin 2.5 g/dl (3.4-5.0) L 06/02/16 06:00 ASSESSMENT AND PLAN: 71yo M with PMH CHF, DM, HTN, CAD s/p stent, presented to the ER and was admitted for further evaluation of their emergent condition 1. SOB- likley due to PNA and pleural effusion. continues to clinically improve. on levaquin. repeat CXR shows worsening R pleural effusion. will likely benefit from therapeutic and diagnostic thoracentesis. spoke with Dr Trujillo and remains on the schedule for bronchoscopy on friday which was scheduled prior to admission. echo ordered. hold asa/plavix for pending procedure 2. SPIKE- likely due to overdiuresis. give 500cc bolus by cardio. will hold lasix. monitor. hold nephrotoxic medications 2. DM- continues to have asymptomatic hypoglycemic episodes in the AM. will check 2am BGM to further evaluate. cont to hold long acting insulin. only ISS for now. diabetic diet 3. HTN- controlled. cont coreg. holding clnidine patch. 4. DVT ppx- hep sq, hold morning dose Visit type - Emergency Visit Emergency Visit: Yes ED Registration Date: 06/01/16 Care time: The patient presented to the Emergency Department on the above date and was hospitalized for further evaluation of their emergent condition. - New Patient This patient is new to me today: No - Critical Care Critical Care patient: No - Discharge Referral Referred to [facility] Med P.C.: No
[2016-06-03] MEDS: DOCUSATE SODIUM 100 MG CAPSULE (FP) PO SCH (20:13)
[2016-06-03] MEDS: GABAPENTIN 300 MG CAPSULE (FP) PO SCH (21:23)
[2016-06-04] MEDS: INSULIN SLIDING SCALE (NOVOLOG) 1 VIAL SQ SCH ×3 (06:09→16:46)
[2016-06-04 09:16] LABS: CALCIUM 8.9 mg/dL (8.5-10.1); CREATININE 1.9 mg/dL (0.7-1.3)
[2016-06-04] MEDS: CHOLECALCIFEROL (VITAMIN D3) 1,000 UNIT TABLET (FP) PO SCH (09:45)
[2016-06-04] MEDS: LEVOFLOXACIN 750 MG IVPB 150 ML IVPB SCH (09:45)
[2016-06-04] MEDS: DOCUSATE SODIUM 100 MG CAPSULE (FP) PO SCH (09:45)
[2016-06-04] MEDS: PANTOPRAZOLE 40 MG TABLET (FP) PO SCH (09:45)
[2016-06-04] MEDS: CARVEDILOL 25 MG TABLET (FP) PO SCH ×2 (09:45→21:12)
--- NOTE | 2016-06-04 10:21 | PN ---
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, Physician History of Present Illness: Denies chest pain. Reports dyspnea present but better per patient this AM. - Current Medication List Current Medications: Active Medications Carvedilol (Coreg -) 25 mg PO BID [facility] Last Admin: 06/04/16 09:45 Dose: 25 mg Cholecalciferol (Vitamin D3 -) 1,000 unit PO DAILY [facility] Last Admin: 06/04/16 09:45 Dose: 1,000 unit Docusate Sodium (Colace -) 100 mg PO DAILY [facility] Last Admin: 06/04/16 09:45 Dose: 100 mg Gabapentin (Neurontin -) 600 mg PO HS [facility] Last Admin: 06/03/16 21:23 Dose: 600 mg Levofloxacin (Levaquin 750 Mg Premixed Ivpb -) 150 mls @ 100 mls/hr IVPB Q2D [facility] Last Admin: 06/04/16 09:45 Dose: 100 mls/hr Insulin Aspart (Novolog Vial Sliding Scale -) 1 vial SQ TIDAC [facility] PRN Reason: Protocol Last Admin: 06/04/16 06:09 Dose: Not Given Pantoprazole Sodium (Protonix -) 40 mg PO DAILY [facility] Last Admin: 06/04/16 09:45 Dose: 40 mg - Objective Vital Signs: Vital Signs Temperature 97.7 F 06/04/16 02:10 Pulse Rate 75 06/04/16 02:10 Respiratory Rate 18 06/04/16 02:10 Blood Pressure 106/63 06/04/16 02:10 O2 Sat by Pulse Oximetry (%) 96 06/03/16 20:48 Constitutional: Yes: No Distress Eyes: Yes: Conjunctiva Clear, EOM Intact HENT: Yes: Atraumatic, Normocephalic Cardiovascular: Yes: Regular Rate and Rhythm. No: JVD Respiratory: Yes: Dullness (at right base) Gastrointestinal: Yes: Normal Bowel Sounds, Soft. No: Tenderness Edema: No Neurological: Yes: Alert, Oriented Labs: CBC, BMP 06/03/16 07:20 06/04/16 08:25 Assessment/Plan 71 yo male with DM, HTN, hyperlipidemia, CHF, CAD, prior anterolateral [place] 1994 w/ PCI of LAD & ramus, PCI of LAD 05/1996 (with 100% occluded ramus and patent RCA). He was admitted with worsening dsypnea over the past several weeks with productive cough. Patient recently treated in March for right middle and lower lobe pneumonia, and underwent bronchoscopy on 03/27/16. He was also recently diagnosed with sinus infection and was treated with antibiotics. CT chest on 06/01/16 demonstrate right middle lobe infiltrate, interstitial pulmonary vascular congestion, and moderate right sided and small left sided pleural effusion. Patient is currently pending repeat bronchoscopy and possible thoracentesis for pleural effusion. Patient was given furosemide 40 mg IV x1 on 06/01/16 and 06/02/16 with resulting renal failure with Cr 1.8 today (Normal Cr 1.1 on 06/01/16). BNP elevated at 6071 on admission. Cardiology was consulted for evaluation of possible CHF. Prior cardiac studies: 1) 09/19/15 Lexiscan sestamibi: Medium sized moderate to severe infarct of apical , apical lateral, apical anterior, mid anterolateral, and mid to basal anterior moura. No ischemia in remainder of LV. Mild apical lateral and mid anterolateral hypokinesis with calculated LVEF 49%. 2) 09/06/15 Echocardiogram: Technically difficult study. Normal LV size and estimated LVEF 55-60%. Mild diastolic dysfunction. Min TR. No pulm HTN. 06/01/16 ECG: Sinus rhythm with PVCs, anteroseptal infarct (old), non-specific ST-T abnormalities. No significant changes from ECG in our office on 08/29/15. Low suspicion for grossly decompensated CHF at this time given acute renal failure with IV lasix (x 2 doses with normal Cr on admission), lack of peripheral edema, and no JVD currently. Suspect that patient's right pleural effusion is due to recent pneumonia treated in March. INR 1.9 today. Given NS 500 cc bolus yesterday. RECS: Hold further diuresis at this time. Will start IV fluids with NS at 100 cc/hr. Monitor renal function with hydration as acute renal failure likely due to overdiuresis. Continue carvedilol. Repeat echo ordered and pending. Patient may proceed with right sided thoracentesis (for both therapeutic and diagnostic purposes) and bronchoscopy as per pulmonary service. There are no cardiac contraindications to pending procedures. Will follow. Call with questions.
--- NOTE | 2016-06-04 11:59 | PN ---
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 (short form) - Note 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: NAD on NC O2. Breathing is mildly better since admission. No CP. Intake & Output 06/01/16 06/02/16 06/03/16 06/04/16 23:59 23:59 23:59 23:59 Intake Total 300 1835 Output Total 400 700 Balance -400 -400 1835 Weight 182 lb 4 oz 181 lb 6.4 oz 181 lb 9 oz 182 lb 3 oz Last Vital Signs Temp Pulse Resp BP Pulse Ox 97.7 F 75 18 106/63 96 06/04/16 02:10 06/04/16 02:10 06/04/16 02:10 06/04/16 02:10 06/03/16 20:48 Active Medications Carvedilol (Coreg -) 25 mg PO BID [facility] Last Admin: 06/04/16 09:45 Dose: 25 mg Cholecalciferol (Vitamin D3 -) 1,000 unit PO DAILY [facility] Last Admin: 06/04/16 09:45 Dose: 1,000 unit Docusate Sodium (Colace -) 100 mg PO DAILY [facility] Last Admin: 06/04/16 09:45 Dose: 100 mg Gabapentin (Neurontin -) 600 mg PO HS [facility] Last Admin: 06/03/16 21:23 Dose: 600 mg Levofloxacin (Levaquin 750 Mg Premixed Ivpb -) 150 mls @ 100 mls/hr IVPB Q2D [facility] Last Admin: 06/04/16 09:45 Dose: 100 mls/hr Sodium Chloride (Normal Saline -) 1,000 mls @ 100 mls/hr IV ASDIR [facility] Insulin Aspart (Novolog Vial Sliding Scale -) 1 vial SQ TIDAC [facility] PRN Reason: Protocol Last Admin: 06/04/16 10:47 Dose: Not Given Pantoprazole Sodium (Protonix -) 40 mg PO DAILY [facility] Last Admin: 06/04/16 09:45 Dose: 40 mg Constitutional: Yes: Awake and alert, NAD Eyes: Yes: WNL HENT: Yes: WNL Neck: Yes: WNL Cardiovascular: Yes: Regular Rate and Rhythm, S1, S2 Respiratory: Yes: Diminished at the bases, Bibasilar Rales/rhonchi Gastrointestinal: Yes: Normal Bowel Sounds, Soft Extremities: Yes: WNL Edema: No Labs: Laboratory Results - last 24 hr 06/02/16 06/03/16 06/04/16 07:24 16:48 02:36 Sodium Potassium Chloride Carbon Dioxide Anion Gap BUN Creatinine POC Glucometer 48 188 197 Random Glucose Calcium 06/04/16 06/04/16 06/04/16 06:06 08:25 10:45 Sodium 140 Potassium 4.5 Chloride 105 Carbon Dioxide 29 Anion Gap 6 L BUN 40 H D Creatinine 1.9 H POC Glucometer 168 190 Random Glucose 156 H Calcium 8.9 Assessment/Plan Problem List - Problems (1) CHF (congestive heart failure) Code(s): I50.9 - HEART FAILURE, UNSPECIFIED clinically improving (2) CHF exacerbation Code(s): I50.9 - HEART FAILURE, UNSPECIFIED (3) Pneumonia Code(s): J18.9 - PNEUMONIA, UNSPECIFIED ORGANISM Qualifiers: Laterality: right Lung location: lower lobe of lung (4) CAD (coronary artery disease) Code(s): I25.10 - ATHSCL HEART DISEASE OF [place] CORONARY ARTERY W/O ANG PCTRS (5) HTN (hypertension) Code(s): I10 - ESSENTIAL (PRIMARY) HYPERTENSION (6) Hyperlipidemia Code(s): E78.5 - HYPERLIPIDEMIA, UNSPECIFIED (7) Insulin dependent diabetes mellitus Code(s): E11.9 - TYPE 2 DIABETES MELLITUS WITHOUT COMPLICATIONS Z79.4 - RESIDENTIAL (CURRENT) USE OF INSULIN (8) ARF likely from [facility] Assessment/Plan ABX -> may need to adjust dose depending on CrCl O2 to maintain saturation BD TX Medrol Thoracentesis Daily BMP Consider Renal evaluation Caution with IVF as CT images were consistent with volume overload Would hold on bronchoscopy for now and likely schedule as an outpatient Dr Bella Problem List - Problems (1) CHF (congestive heart failure) Code(s): I50.9 - HEART FAILURE, UNSPECIFIED (2) CHF exacerbation Code(s): I50.9 - HEART FAILURE, UNSPECIFIED (3) Pneumonia Code(s): J18.9 - PNEUMONIA, UNSPECIFIED ORGANISM Qualifiers: Laterality: right Lung location: lower lobe of lung (4) CAD (coronary artery disease) Code(s): I25.10 - ATHSCL HEART DISEASE OF [place] CORONARY ARTERY W/O ANG PCTRS (5) HTN (hypertension) Code(s): I10 - ESSENTIAL (PRIMARY) HYPERTENSION (6) Hyperlipidemia Code(s): E78.5 - HYPERLIPIDEMIA, UNSPECIFIED (7) Insulin dependent diabetes mellitus Code(s): E11.9 - TYPE 2 DIABETES MELLITUS WITHOUT COMPLICATIONS Z79.4 - RESIDENTIAL (CURRENT) USE OF INSULIN
[2016-06-04 13:54] LABS: GLUCOSE,PLEURAL FLUID 193.124
[2016-06-04 13:56] LABS: TOTAL PROTEIN,PLEURAL FLUID 3.286
[2016-06-04] MEDS: SODIUM CHLORIDE 1,000 ML IV SCH ×2 (14:02)
[2016-06-04 14:06] LABS: CHLORIDE PLEURAL FLUID 106
[2016-06-04 15:56] LABS: PLEURAL FLUID SOURCE PLEURAL
[2016-06-04 15:57] LABS: PLEURAL FLUID APPEARANCE CLOUDY; PLEURAL FLUID COLOR YELLOW
--- NOTE | 2016-06-04 16:23 | PN ---
Teaching Attending Note Name of Resident: Kena Daigle ATTENDING PHYSICIAN STATEMENT I saw and evaluated the patient. I reviewed the resident's note and discussed the case with the resident. I agree with the resident's findings and plan as documented. SUBJECTIVE: seen and evaluated at the bedside OBJECTIVE: resting comfortably on gearny on the way to interventional radiology ASSESSMENT AND PLAN: 71 YO M with PMH of DM, HTN, HLD, CHF, CAD s/p stents x3, skin CA, GOUT and hiatal hernia admitted for new B/L pleural effusions Pleural Effusions -right greater than left -was initially thought to be due to acute on chronic CHF and was treated with IV lasix but creat worsened and diureis has since stopped -now s/p thoracentesis; follow up pleural fluid analysis -follow up echo -in emperic levofloxacin (now renally dosed) Acute Renal failure -effusion was initially thought to be due to acute on chronic CHF and was treated with IV lasix but creat worsened -diureis has since been stopped -now on normal saline @ 100/hr as ordered by cardio attending -trend creat in the AM
[2016-06-04] MEDS ORDERED: guaiFENesin 200 MG/10 ML 10 ML UNIT-DOSE CUPS PO PRN (16:27)
[2016-06-04] MEDS ORDERED: SODIUM CHLORIDE 1,000 ML IV SCH (16:30)
[2016-06-04 16:59] LABS: ALBUMIN 2.9 g/dl (3.4-5.0); TOT PROT 7.1 g/dl (6.4-8.2)
[2016-06-04 17:44] LABS: PLEURAL FLUID LYMPHOCYTES 55 %; PLEURAL FLUID MACROPHAGES 32 %; PLEURAL FLUID NEUTROPHIL 1 %
--- NOTE | 2016-06-04 19:51 | PN ---
Physical Exam: SUBJECTIVE: Patient seen and examined this am. feeling better today. anxious about procedure. denies any cp, sob, palpitations, fevers, chills, N/V/D OBJECTIVE: Vital Signs Period Temp Pulse Resp BP Sys/Desai Pulse Ox Last 24 Hr 97.3 F-98.9 F 72-86 18-20 106-129/63-78 96-98 GENERAL: The patient is awake, alert, and fully oriented, in no acute distress. HEAD: Normal with no signs of trauma. EYES: PERRL, extraocular movements intact, sclera anicteric, conjunctiva clear. No ptosis. ENT: Ears normal, nares patent, oropharynx clear without exudates, moist mucous membranes. NECK: Trachea midline, full range of motion, supple. LUNGS: Breath sounds decreased on R, Dullness right base, no wheezes, no crackles, no accessory muscle use. HEART: Regular rate and rhythm, S1, S2 without murmur, rub or gallop. ABDOMEN: Soft, nontender, nondistended, normoactive bowel sounds, no guarding, no rebound, no hepatosplenomegaly, no masses. EXTREMITIES: 2+ pulses, warm, well-perfused, no edema. NEUROLOGICAL: Cranial nerves II through XII grossly intact. Normal speech, gait not observed. PSYCH: Normal mood, normal affect. SKIN: Warm, dry, normal turgor, no rashes or lesions noted Laboratory Results - last 24 hr 06/02/16 06/04/16 06/04/16 07:24 02:36 06:06 Sodium Potassium Chloride Carbon Dioxide Anion Gap BUN Creatinine POC Glucometer 48 197 168 Random Glucose Calcium LD Total Total Protein Albumin Pleural Fluid Source Pleural Color Pleural Appearance Pleural WBC Pleural RBC Pleural Neutrophils Pleural Lymphocytes Pleural Monocytes Pleural Macrophages Pleural Mesothelial Pleural Chloride Pleural Total Protein Pleural Albumin Pleural LDH Pleural Glucose Pleural Amylase Pleural Cholesterol Pleural Triglycerides 06/04/16 06/04/16 06/04/16 08:25 10:45 12:30 Sodium 140 Potassium 4.5 Chloride 105 Carbon Dioxide 29 Anion Gap 6 L BUN 40 H D Creatinine 1.9 H POC Glucometer 190 Random Glucose 156 H Calcium 8.9 LD Total 185 Total Protein 7.1 Albumin 2.9 L Pleural Fluid Source Pleural Pleural Color Yellow Pleural Appearance Cloudy Pleural WBC 708 Pleural RBC 8702 Pleural Neutrophils 1 Pleural Lymphocytes 55 Pleural Monocytes 9 Pleural Macrophages 32 Pleural Mesothelial 3 Pleural Chloride 106 Pleural Total Protein 3.286 Pleural Albumin 2 Pleural LDH 87 Pleural Glucose 193.124 Pleural Amylase 22.836 Pleural Cholesterol < 50 Pleural Triglycerides 13 06/04/16 06/04/16 14:30 16:42 Sodium Potassium Chloride Carbon Dioxide Anion Gap BUN Creatinine POC Glucometer 184 Random Glucose Calcium LD Total Cancelled Total Protein Albumin Pleural Fluid Source Pleural Color Pleural Appearance Pleural WBC Pleural RBC Pleural Neutrophils Pleural Lymphocytes Pleural Monocytes Pleural Macrophages Pleural Mesothelial Pleural Chloride Pleural Total Protein Pleural Albumin Pleural LDH Pleural Glucose Pleural Amylase Pleural Cholesterol Pleural Triglycerides Active Medications Generic Name Dose Route Start Last Admin Trade Name Freq PRN Reason Stop Dose Admin Carvedilol 25 mg 06/01/16 22:00 06/04/16 09:45 Coreg - PO 25 mg BID MARY Administration Cholecalciferol 1,000 unit 06/02/16 10:00 06/04/16 09:45 Vitamin D3 - PO 1,000 unit DAILY MARY Administration Docusate Sodium 100 mg 06/03/16 20:00 06/04/16 09:45 Colace - PO 100 mg DAILY MARY Administration Gabapentin 600 mg 06/01/16 22:00 06/03/16 21:23 Neurontin - PO 600 mg HS MARY Administration Guaifenesin 10 ml 06/04/16 16:27 06/04/16 16:50 Robitussin - PO 10 ml Q6H PRN Administration COUGH Levofloxacin 150 mls @ 100 mls/hr 06/04/16 10:00 06/04/16 09:45 Levaquin 750 Mg Premixed Ivpb - IVPB 100 mls/hr Q2D MARY Administration Sodium Chloride 1,000 mls @ 100 mls/hr 06/04/16 16:30 06/04/16 19:10 Normal Saline - IV 06/04/16 20:29 Not Given ASDIR [facility] Insulin Aspart 1 vial 06/01/16 08:04 06/04/16 16:46 Novolog Vial Sliding Scale - SQ Not Given TIDAC [facility] Protocol Pantoprazole Sodium 40 mg 06/01/16 10:00 06/04/16 09:45 Protonix - PO 40 mg DAILY [facility]ARY Administration ASSESSMENT/PLAN: This is a 71 YO M with PMH of DM, HTN, HLD, CHF, CAD s/p stents x3, skin CA, GOUT and hiatal hernia, who presents due to worsening SOB x 2 weeks. found o have new B/L pleural effusions R>L. Pleural Effusions -was initially thought to be due to acute on chronic CHF and was treated with IV lasix but creat worsened and diureis has since stoppe - s/p thoracentesis today ; -follow up pleural fluid analysis -in emperic levofloxacin renal dosing -follow up echo -Strict I and O, daily weights -continue levaquin -f/u blood cultures -Pulm Would hold on bronchoscopy for now and likely schedule as an outpatient HTN -diurese with IV lasix. -ideally should be on Acei or Arb Acute Renal failure 2/2 to diuresis- inc in cr -hold lasix -given normal saline @ 100/hr per cardio HLD -lipid panel CAD -resume coreg 25 bid once confirmed -resume asa 81 once confirmed -resume clopidogrel once confirmed DM -fingerstick TIDAC -85 Kg weight based -Levemir 21 u HS -novolog 7 u TID AC -Sliding scale Gout -currently asymptomatic -resume allopurinol and colchicine once confirmed FEN diurese stable lytes DVT GI PPX: SCD, hep, PPI Diabetic diet Visit type - Emergency Visit Emergency Visit: Yes ED Registration Date: 06/01/16 Care time: The patient presented to the Emergency Department on the above date and was hospitalized for further evaluation of their emergent condition. - New Patient This patient is new to me today: No - Critical Care Critical Care patient: No
[2016-06-04] MEDS: GABAPENTIN 300 MG CAPSULE (FP) PO SCH (21:12)
[2016-06-05] MEDS: INSULIN SLIDING SCALE (NOVOLOG) 1 VIAL SQ SCH ×3 (06:09→17:11)
[2016-06-05 09:12] LABS: CALCIUM 8.9 mg/dL (8.5-10.1); CREATININE 1.7 mg/dL (0.7-1.3)
[2016-06-05] MEDS: CHOLECALCIFEROL (VITAMIN D3) 1,000 UNIT TABLET (FP) PO SCH (09:48)
[2016-06-05] MEDS: PANTOPRAZOLE 40 MG TABLET (FP) PO SCH (09:48)
[2016-06-05] MEDS: DOCUSATE SODIUM 100 MG CAPSULE (FP) PO SCH (09:48)
[2016-06-05] MEDS: CARVEDILOL 25 MG TABLET (FP) PO SCH ×2 (09:48→22:48)
--- NOTE | 2016-06-05 10:18 | PN ---
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, Physician History of Present Illness: PULMONARY ALERT,FEELING BETTER,LESS DYSPNEIC. PT S/P THORACENTESIS TOLERATED PROCEDURE WELL. PLEURAL FLUID LIKELY TRANSUDATE,LDH<200, CHOLESTEROL<50. ELEVATED PROTEIN LIKELY SECONDARY TO ACUTE DIURESIS. - Current Medication List Current Medications: Active Medications Carvedilol (Coreg -) 25 mg PO BID [facility] Last Admin: 06/05/16 09:48 Dose: 25 mg Cholecalciferol (Vitamin D3 -) 1,000 unit PO DAILY [facility] Last Admin: 06/05/16 09:48 Dose: 1,000 unit Docusate Sodium (Colace -) 100 mg PO DAILY [facility] Last Admin: 06/05/16 09:48 Dose: 100 mg Gabapentin (Neurontin -) 600 mg PO HS [facility] Last Admin: 06/04/16 21:12 Dose: 600 mg Guaifenesin (Robitussin -) 10 ml PO Q6H PRN PRN Reason: COUGH Last Admin: 06/04/16 16:50 Dose: 10 ml Levofloxacin (Levaquin 750 Mg Premixed Ivpb -) 150 mls @ 100 mls/hr IVPB Q2D [facility] Last Admin: 06/04/16 09:45 Dose: 100 mls/hr Insulin Aspart (Novolog Vial Sliding Scale -) 1 vial SQ TIDAC [facility] PRN Reason: Protocol Last Admin: 06/05/16 06:09 Dose: Not Given Pantoprazole Sodium (Protonix -) 40 mg PO DAILY [facility] Last Admin: 06/05/16 09:48 Dose: 40 mg - Objective Vital Signs: Vital Signs Temperature 97.8 F 06/05/16 05:48 Pulse Rate 82 06/05/16 05:48 Respiratory Rate 18 06/05/16 05:48 Blood Pressure 122/60 06/05/16 05:48 O2 Sat by Pulse Oximetry (%) 95 06/04/16 20:28 Constitutional: Yes: Well Nourished, Calm Eyes: Yes: WNL HENT: Yes: WNL Neck: Yes: WNL Cardiovascular: Yes: Regular Rate and Rhythm, S1, S2 Respiratory: Yes: Diminished Gastrointestinal: Yes: WNL Extremities: Yes: WNL Edema: No Labs: CBC, BMP 06/03/16 07:20 06/05/16 08:00 - ....Imaging Chest X-ray: Report Reviewed, Image Reviewed Assessment/Plan Problem List - Problems (1) CHF (congestive heart failure) Code(s): I50.9 - HEART FAILURE, UNSPECIFIED clinically improving (2) CHF exacerbation Code(s): I50.9 - HEART FAILURE, UNSPECIFIED (3) Pneumonia Code(s): J18.9 - PNEUMONIA, UNSPECIFIED ORGANISM Qualifiers: Laterality: right Lung location: lower lobe of lung (4) CAD (coronary artery disease) Code(s): I25.10 - ATHSCL HEART DISEASE OF [place] CORONARY ARTERY W/O ANG PCTRS (5) HTN (hypertension) Code(s): I10 - ESSENTIAL (PRIMARY) HYPERTENSION (6) Hyperlipidemia Code(s): E78.5 - HYPERLIPIDEMIA, UNSPECIFIED (7) Insulin dependent diabetes mellitus Code(s): E11.9 - TYPE 2 DIABETES MELLITUS WITHOUT COMPLICATIONS Z79.4 - [place] (CURRENT) USE OF INSULIN Assessment/Plan PLAN: Levaquin adjust for renal O2 to maintain saturation BD TX Daily Medrol Thoracentesis Bronchoscopy as outpatient ID eval monitor renal function DR JENSEN
[2016-06-05] MEDS ORDERED: SODIUM CHLORIDE 500 ML IV SCH (13:15)
--- NOTE | 2016-06-05 13:21 | PN ---
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, Physician History of Present Illness: Denies chest pain. Dyspnea improved following thoracentesis. - Current Medication List Current Medications: Active Medications Carvedilol (Coreg -) 25 mg PO BID [facility] Last Admin: 06/05/16 09:48 Dose: 25 mg Cholecalciferol (Vitamin D3 -) 1,000 unit PO DAILY [facility] Last Admin: 06/05/16 09:48 Dose: 1,000 unit Docusate Sodium (Colace -) 100 mg PO DAILY [facility] Last Admin: 06/05/16 09:48 Dose: 100 mg Gabapentin (Neurontin -) 600 mg PO HS [facility] Last Admin: 06/04/16 21:12 Dose: 600 mg Guaifenesin (Robitussin -) 10 ml PO Q6H PRN PRN Reason: COUGH Last Admin: 06/04/16 16:50 Dose: 10 ml Levofloxacin (Levaquin 750 Mg Premixed Ivpb -) 150 mls @ 100 mls/hr IVPB Q2D [facility] Last Admin: 06/04/16 09:45 Dose: 100 mls/hr Insulin Aspart (Novolog Vial Sliding Scale -) 1 vial SQ TIDAC [facility] PRN Reason: Protocol Last Admin: 06/05/16 11:30 Dose: Not Given Pantoprazole Sodium (Protonix -) 40 mg PO DAILY [facility] Last Admin: 06/05/16 09:48 Dose: 40 mg - Objective Vital Signs: Vital Signs Temperature 97.8 F 06/05/16 09:00 Pulse Rate 82 06/05/16 09:00 Respiratory Rate 17 06/05/16 09:00 Blood Pressure 127/74 06/05/16 09:00 O2 Sat by Pulse Oximetry (%) 96 06/05/16 09:00 Constitutional: Yes: No Distress Eyes: Yes: Conjunctiva Clear, EOM Intact HENT: Yes: Atraumatic, Normocephalic Cardiovascular: Yes: Regular Rate and Rhythm. No: JVD, Murmur Respiratory: Yes: CTA Bilaterally Gastrointestinal: Yes: Normal Bowel Sounds, Soft. No: Tenderness, Rebound Edema: No Neurological: Yes: Alert, Oriented, Cran Nerves II-XII Intact Labs: CBC, BMP 06/03/16 07:20 06/05/16 08:00 Assessment/Plan 71 yo male with DM, HTN, hyperlipidemia, CHF, CAD, prior anterolateral [place] 1994 w/ PCI of LAD & ramus, PCI of LAD 05/1996 (with 100% occluded ramus and patent RCA). He was admitted with worsening dsypnea over the past several weeks with productive cough. Patient recently treated in March for right middle and lower lobe pneumonia, and underwent bronchoscopy on 03/27/16. He was also recently diagnosed with sinus infection and was treated with antibiotics. CT chest on 06/01/16 demonstrate right middle lobe infiltrate, interstitial pulmonary vascular congestion, and moderate right sided and small left sided pleural effusion. Patient is currently pending repeat bronchoscopy and possible thoracentesis for pleural effusion. Patient was given furosemide 40 mg IV x1 on 06/01/16 and 06/02/16 with resulting renal failure with Cr 1.8 today (Normal Cr 1.1 on 06/01/16). BNP elevated at 6071 on admission. Cardiology was consulted for evaluation of possible CHF. Prior cardiac studies: 1) 09/19/15 Lexiscan sestamibi: Medium sized moderate to severe infarct of apical , apical lateral, apical anterior, mid anterolateral, and mid to basal anterior moura. No ischemia in remainder of LV. Mild apical lateral and mid anterolateral hypokinesis with calculated LVEF 49%. 2) 09/06/15 Echocardiogram: Technically difficult study. Normal LV size and estimated LVEF 55-60%. Mild diastolic dysfunction. Min TR. No pulm HTN. 06/01/16 ECG: Sinus rhythm with PVCs, anteroseptal infarct (old), non-specific ST-T abnormalities. No significant changes from ECG in our office on 08/29/15. Low suspicion for grossly decompensated CHF at this time given acute renal failure with IV lasix (x 2 doses with normal Cr on admission), lack of peripheral edema, and no JVD currently. Suspect that patient's right pleural effusion is due to recent pneumonia treated in March. Cr 1.7 today (improved from 1.9 on 06/05/16) after being given NS 1 liter yesterday (06/05/16). Thoracentesis yesterday removed 1000 cc of serous sanguinous fluid. Pleural fluid analysis demonstrated protein ratio 0.46, LDH ratio 0.47, which is suggestive of transudative fluid. RECS: No further diuresis. Acute renal failure due to overdiuresis. Patient does not appear to be in gross CHF at this time. Will given another 500 cc NS at 100 cc/hr today given improvement in renal function. Monitor Cr. Continue carvedilol. Repeat echo being performed today. Will follow. Call with questions. If patient remains clinically stable and Cr continue to improve, patient may be discharged from cardiac standpoint. Discharge planning as per primary team and pulmonary.
--- NOTE | 2016-06-05 13:57 | CONSULT ---
Consultation: REQUESTING PROVIDER: CONSULT REQUEST: We have been asked to medically evaluate this patient for pneumonia. HISTORY OF PRESENT ILLNESS: 71 year old male came in to the hospital with the chief complaints of difficulty in breathing and cough since 2weeks. Patient has been sick on/off since July, ever since he returned back from [facility] Travelled from till 18 August. Patient mentions that he had productive cough, was yellowish in color. Also reported he had difficulty in lying flat so slept on propped up position, had increased SOB while climbing up the stairs. Last week, he visited Dr. Waters and was given unknown antibiotics for sinusitis. After taking it for a few days, he received a phone call from the doctor and changed the antibiotic which he was taking until he came here. May be he took Clindamycin since it was in his home med record. Patient had bronchoscopy done last march for mucus plug. Plan was to do bronchoscopy this admission but on hold for now. Patient says he feels much better after thoracocentesis done yesterday. Has cough on/off but better than yesterday. Still coughing up phelgm whitish in color. 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 REVIEW OF SYSTEMS: CONSTITUTIONAL: Absent: fever, chills, diaphoresis, generalized weakness, malaise, loss of appetite, weight change HEENT: Absent: rhinorrhea, nasal congestion, throat pain, throat swelling, difficulty swallowing, mouth swelling, ear pain, eye pain, visual changes CARDIOVASCULAR: Absent: chest pain, syncope, palpitations, irregular heart rate, lightheadedness , peripheral edema RESPIRATORY: Present: cough, shortness of breath, orthopnea, dyspnea with exertion. Absent: , wheezing, stridor, hemoptysis GASTROINTESTINAL: Absent: abdominal pain, abdominal distension, nausea, vomiting, diarrhea, constipation, melena, hematochezia GENITOURINARY: Absent: dysuria, frequency, urgency, hesitancy, hematuria, flank pain, genital pain MUSCULOSKELETAL: Absent: myalgia, arthralgia, joint swelling, back pain, neck pain SKIN: Absent: rash, itching, pallor HEMATOLOGIC/IMMUNOLOGIC: Absent: easy bleeding, easy bruising, lymphadenopathy, frequent infections ENDOCRINE: Absent: unexplained weight gain, unexplained weight loss, heat intolerance, cold intolerance NEUROLOGIC: Absent: headache, focal weakness or paresthesias, dizziness, unsteady gait, seizure, mental status changes, bladder or bowel incontinence PSYCHIATRIC: Absent: anxiety, depression, suicidal or homicidal ideation, hallucinations. PHYSICAL EXAMINATION Vital Signs - 24 hr 06/04/16 06/04/16 06/04/16 19:53 20:28 23:00 Temperature 97.4 F L 98.0 F Pulse Rate 71 76 Respiratory 18 Rate Blood Pressure 121/68 128/66 O2 Sat by Pulse 95 Oximetry (%) 06/05/16 06/05/16 05:48 09:00 Temperature 97.8 F 97.8 F Pulse Rate 82 82 Respiratory 18 17 Rate Blood Pressure 122/60 127/74 O2 Sat by Pulse 96 Oximetry (%) GENERAL: Patient is sitting upright, eating lunch, Awake, alert, and fully oriented x 3, in no acute distress. HEAD: Normal with no signs of trauma. EYES: PEERLA, no icterus, no pallor. EARS, NOSE, THROAT: Ears normal NECK: No JVD or masses. LUNGS: On Percussion, dullness over the right lung base, Breath sounds decreased more towards the Right bases, crackles + right base. HEART: Regular rate and rhythm, normal S1 and S2 without murmur. ABDOMEN: Soft, nontender, not distended, normoactive bowel sounds, no guarding, no rebound, no masses. No hepatomegaly or splenomegaly. MUSCULOSKELETAL: Normal range of motion at all joints. No bony deformities or tenderness. No CVA tenderness. UPPER EXTREMITIES: 2+ pulses, warm, well-perfused. No cyanosis. No clubbing. LOWER EXTREMITIES: 2+ pulses, warm, well-perfused. No calf tenderness. B/L pitting edema in ankles, trace pitting edema B/L upto the knees. NEUROLOGICAL: Cranial nerves II-XII intact. Normal speech. Gait not observed. PSYCHIATRIC: Cooperative. Good eye contact. Appropriate mood and affect. SKIN: Warm, dry, normal turgor, no rashes or lesions noted. Laboratory Results - last 24 hr 06/04/16 06/04/16 06/04/16 08:25 12:30 14:30 Sodium Potassium Chloride Carbon Dioxide Anion Gap BUN Creatinine POC Glucometer Random Glucose Calcium LD Total 185 Cancelled Total Protein 7.1 Albumin 2.9 L Pleural Fluid Source Pleural Pleural Color Yellow Pleural Appearance Cloudy Pleural WBC 708 Pleural RBC 8702 Pleural Neutrophils 1 Pleural Lymphocytes 55 Pleural Monocytes 9 Pleural Macrophages 32 Pleural Mesothelial 3 Pleural Chloride 106 Pleural Total Protein 3.286 Pleural Albumin 2 Pleural LDH 87 Pleural Glucose 193.124 Pleural Amylase 22.836 Pleural Cholesterol < 50 Pleural Triglycerides 13 06/04/16 06/05/16 06/05/16 16:42 02:54 05:57 Sodium Potassium Chloride Carbon Dioxide Anion Gap BUN Creatinine POC Glucometer 184 163 183 Random Glucose Calcium LD Total Total Protein Albumin Pleural Fluid Source Pleural Color Pleural Appearance Pleural WBC Pleural RBC Pleural Neutrophils Pleural Lymphocytes Pleural Monocytes Pleural Macrophages Pleural Mesothelial Pleural Chloride Pleural Total Protein Pleural Albumin Pleural LDH Pleural Glucose Pleural Amylase Pleural Cholesterol Pleural Triglycerides 06/05/16 06/05/16 08:00 11:29 Sodium 139 Potassium 4.5 Chloride 104 Carbon Dioxide 28 Anion Gap 7 L BUN 38 H Creatinine 1.7 H POC Glucometer 196 Random Glucose 172 H Calcium 8.9 LD Total Total Protein Albumin Pleural Fluid Source Pleural Color Pleural Appearance Pleural WBC Pleural RBC Pleural Neutrophils Pleural Lymphocytes Pleural Monocytes Pleural Macrophages Pleural Mesothelial Pleural Chloride Pleural Total Protein Pleural Albumin Pleural LDH Pleural Glucose Pleural Amylase Pleural Cholesterol Pleural Triglycerides Active Medications Generic Name Dose Route Start Last Admin Trade Name Freq PRN Reason Stop Dose Admin Carvedilol 25 mg 06/01/16 22:00 06/05/16 09:48 Coreg - PO 25 mg BID MARY Administration Cholecalciferol 1,000 unit 06/02/16 10:00 06/05/16 09:48 Vitamin D3 - PO 1,000 unit DAILY MARY Administration Docusate Sodium 100 mg 06/03/16 20:00 06/05/16 09:48 Colace - PO 100 mg DAILY MARY Administration Gabapentin 600 mg 06/01/16 22:00 06/04/16 21:12 Neurontin - PO 600 mg HS MARY Administration Guaifenesin 10 ml 06/04/16 16:27 06/04/16 16:50 Robitussin - PO 10 ml Q6H PRN Administration COUGH Levofloxacin 150 mls @ 100 mls/hr 06/04/16 10:00 01/03/17 09:45 Levaquin 750 Mg Premixed Ivpb - IVPB 100 mls/hr Q2D MARY Administration Sodium Chloride 500 mls @ 100 mls/hr 06/05/16 13:15 Normal Saline - IV 06/05/16 18:14 ASDIR MARY Insulin Aspart 1 vial 06/01/16 08:04 06/05/16 11:30 Novolog Vial Sliding Scale - SQ Not Given TIDAC [facility] Protocol Pantoprazole Sodium 40 mg 06/01/16 10:00 06/05/16 09:48 Protonix - PO 40 mg DAILY MARY Administration chest CT 06/01- In comparision to a previous CT exam of 05/01/2016 interval developement of intersitial pulmonary vascular congestion is noted with moderate right sided and small left sided pleural effusion, mild cardiomegaly. Right middle lobe infiltrate is seen which appears mildly increased in size in comparision to the prior study. Development of a nonspecific 1.5 cm x 0.6 cm left upper lobe pulmonary nodule is noted. ASSESSMENT/PLAN: 71 year old male with significant past medical history of DM, HTN, HLD, CHF, CAD s/p stents x3, skin CA, GOUT and hiatal hernia came in to the hospital with the chief complaints of difficulty in breathing and cough since 2weeks. # Congestive heart failure with pleural effusion with possible infiltrate Presented with difficulty in breathing and cough CT chest report mentioned above s/p thoracocentesis, patient felt much better after the removal of the fluid Pleural effusion most likely due to CHF (Transudative fluid on pleural fluid analysis) Patient on Levofloxacin Bronchoscopy on hold for now CXR to be repeated tomorrow # Acute Kidney Injury Most likely since patient was over diuresed, lasix on hold, Only 1L of fluid to be given today. # FEN Restricted to 1L of IV Fluids today Electrolytes to be repeated tomorrow Diabetic diet # Prophylaxis For DVT- Not indicated For GI- On Pantoprazole Rest per primary. Illness, Investigation and Plan of care explained to the patient. He verbalized understanding. Case seen and discussed with Dr. Torres. Visit type - Emergency Visit Emergency Visit: Yes ED Registration Date: 06/01/16 Care time: The patient presented to the Emergency Department on the above date and was hospitalized for further evaluation of their emergent condition. - New Patient This patient is new to me today: Yes Date on this admission: 06/05/16 - Critical Care Critical Care patient: No
--- NOTE | 2016-06-05 16:16 | PN ---
Teaching Attending Note Name of Resident: Ute Gutierrez ATTENDING PHYSICIAN STATEMENT I saw and evaluated the patient. I reviewed the resident's note and discussed the case with the resident. I agree with the resident's findings and plan as documented. SUBJECTIVE: chart reviewed admitted with SOB, cough, pitting edema right pleural effusion no fever/no leukocytosis feels great s/p thoracentesis yesterday- fluid transudative OBJECTIVE: Vital Signs Period Temp Pulse Resp BP Sys/Desai Pulse Ox Last 24 Hr 97.4 F-98.0 F 71-87 17-18 121-128/60-74 95-96 no thrush cor-rrr lungs crackles right base abd soft, nt ext no edema CBC, BMP 06/03/16 07:20 06/05/16 08:00 Microbiology 06/04/16 12:30 Pleural Fluid KEL Preparation - Preliminary 06/04/16 12:30 Pleural Fluid Fungal Culture - Preliminary 06/04/16 12:30 Pleural Fluid Body Fluid Culture - Preliminary NO AEROBIC GROWTH, 24 HRS 06/01/16 01:20 Blood - Peripheral Venous Blood Culture - Preliminary NO GROWTH OBTAINED AFTER 96 HOURS, INCUBATION TO CONTINUE FOR 1 DAYS. 06/01/16 16:10 Blood - Peripheral Venous Blood Culture - Preliminary NO GROWTH OBTAINED AFTER 72 HOURS, INCUBATION TO CONTINUE FOR 2 DAYS. 06/01/16 05:15 Urine For Antigen Detection Legionella Antigen - Final 06/01/16 05:15 Urine For Antigen Detection Streptococcus pneumoniae Antigen (M - Final ASSESSMENT AND PLAN: clinical scenario most c/w CHF has been on long course of antibiotics po for sinusitis before admission and now day #4 levaquin d/c antibiotics after am dose pulmonary f/u as outpt f/u cytology
[2016-06-05] MEDS: GABAPENTIN 300 MG CAPSULE (FP) PO SCH (22:48)
[2016-06-06] MEDS: INSULIN SLIDING SCALE (NOVOLOG) 1 VIAL SQ SCH ×2 (06:43→13:01)
--- NOTE | 2016-06-06 06:46 | PN ---
Physical Exam: SUBJECTIVE: Patient seen and examined at bed side feeling well. Would like to go home. post thoracentesis Day #1 no fevers, chills, N/V/D, cp, palpitations, Afebrile, sat 96% RA at rest, saturated on RA post walk 87%. will require home oxygen on discharge, will follow up eithy pul and cardio crackles, wheezing R>L OBJECTIVE: Vital Signs Period Temp Pulse Resp BP Sys/Desai Pulse Ox Last 24 Hr 97.3 F-98.9 F 80-87 16-20 109-133/62-74 96-99 GENERAL: The patient is awake, alert, and fully oriented, in no acute distress. HEAD: Normal with no signs of trauma. EYES: extraocular movements intact, sclera anicteric, conjunctiva clear. ENT: Ears normal, nares patent, oropharynx clear without exudates, membranes. NECK: Trachea midline, full range of motion, supple. LUNGS: Breath sounds decreased on R, Dullness right base, no wheezes, no crackles, no accessory muscle use. HEART: Regular rate and rhythm, S1, S2 without murmur, rub or gallop. ABDOMEN: Soft, nontender, nondistended, normoactive bowel sounds, no guarding, no rebound, no hepatosplenomegaly, no masses. EXTREMITIES: 2+ pulses, warm, well-perfused, no edema. NEUROLOGICAL: Cranial nerves II through XII grossly intact. Normal speech, gait not observed. Laboratory Results - last 24 hr 06/05/16 06/05/16 06/05/16 08:00 11:29 17:00 Sodium 139 Potassium 4.5 Chloride 104 Carbon Dioxide 28 Anion Gap 7 L BUN 38 H Creatinine 1.7 H POC Glucometer 196 237 Random Glucose 172 H Calcium 8.9 06/06/16 05:14 Sodium Potassium Chloride Carbon Dioxide Anion Gap BUN Creatinine POC Glucometer 181 Random Glucose Calcium Active Medications Generic Name Dose Route Start Last Admin Trade Name Freq PRN Reason Stop Dose Admin Carvedilol 25 mg 06/01/16 22:00 06/05/16 22:48 Coreg - PO 25 mg BID MAYR Administration Cholecalciferol 1,000 unit 06/02/16 10:00 06/05/16 09:48 Vitamin D3 - PO 1,000 unit DAILY MARY Administration Docusate Sodium 100 mg 06/03/16 20:00 01/04/17 09:48 Colace - PO 100 mg DAILY MARY Administration Gabapentin 600 mg 06/01/16 22:00 06/05/16 22:48 Neurontin - PO 600 mg HS MARY Administration Guaifenesin 10 ml 06/04/16 16:27 06/04/16 16:50 Robitussin - PO 10 ml Q6H PRN Administration COUGH Levofloxacin 150 mls @ 100 mls/hr 06/04/16 10:00 06/04/16 09:45 Levaquin 750 Mg Premixed Ivpb - IVPB 100 mls/hr Q2D MARY Administration Insulin Aspart 1 vial 06/01/16 08:04 06/06/16 06:43 Novolog Vial Sliding Scale - SQ Not Given TIDAC [facility] Protocol Pantoprazole Sodium 40 mg 06/01/16 10:00 06/05/16 09:48 Protonix - PO 40 mg DAILY MARY Administration Active Medications Carvedilol (Coreg -) 25 mg PO BID [facility] Last Admin: 06/05/16 22:48 Dose: 25 mg Cholecalciferol (Vitamin D3 -) 1,000 unit PO DAILY [facility] Last Admin: 06/05/16 09:48 Dose: 1,000 unit Docusate Sodium (Colace -) 100 mg PO DAILY [facility] Last Admin: 06/05/16 09:48 Dose: 100 mg Gabapentin (Neurontin -) 600 mg PO HS [facility] Last Admin: 06/05/16 22:48 Dose: 600 mg Guaifenesin (Robitussin -) 10 ml PO Q6H PRN PRN Reason: COUGH Last Admin: 06/04/16 16:50 Dose: 10 ml Levofloxacin (Levaquin 750 Mg Premixed Ivpb -) 150 mls @ 100 mls/hr IVPB Q2D [facility] Last Admin: 06/04/16 09:45 Dose: 100 mls/hr Insulin Aspart (Novolog Vial Sliding Scale -) 1 vial SQ TIDAC [facility] PRN Reason: Protocol Last Admin: 06/06/16 06:43 Dose: Not Given Pantoprazole Sodium (Protonix -) 40 mg PO DAILY [facility] Last Admin: 06/05/16 09:48 Dose: 40 mg ASSESSMENT/PLAN: This is a 71 YO M with PMH of DM, HTN, HLD, CHF, CAD s/p stents x3, skin CA, GOUT and hiatal hernia, who presents due to worsening SOB x 2 weeks. found o have new B/L pleural effusions R>L. Pleural Effusions: right greater than left was initially thought to be due to acute on chronic CHF and was treated with IV lasix but creat worsened and diureis has since stopped, now s/p thoracentesis; pleural fluid analysis suggestive of transudative process likely from CHF as pt does not have cirrhosis or nephrotic syndrom - s/p thoracentesis day 2 -follow up pleural fluid analysis -in emperic levofloxacin renal dosing -follow up echo -Strict I and O, daily weights -continue levaquin -f/u blood cultures -Pulm Would hold on bronchoscopy for now and likely schedule as an outpatient HTN -ideally should be on Acei or Arb Acute Renal failure 2/2 to diuresis- inc in cr -hold lasix -given normal saline @ 100/hr per cardio HLD -lipid panel CAD-echo shows poor EF with global hypokinesis -resume coreg 25 bid once confirmed -resume asa 81 once confirmed -resume clopidogrel once confirmed out -currently asymptomatic -resume allopurinol and colchicine once confirmed FEN diurese stable lytes DVT GI PPX: SCD, hep, PPI Diabetic diet Visit type - Emergency Visit Emergency Visit: Yes ED Registration Date: 06/01/16 Care time: The patient presented to the Emergency Department on the above date and was hospitalized for further evaluation of their emergent condition. - New Patient This patient is new to me today: No - Critical Care Critical Care patient: No
[2016-06-06 08:33] LABS: CALCIUM 8.5 mg/dL (8.5-10.1); CREATININE 1.5 mg/dL (0.7-1.3)
--- NOTE | 2016-06-06 09:51 | PN ---
Physical Exam: SUBJECTIVE: Patient seen and examined at bed side this morning. Still complaints of cough with production of whitish sputum. No acute events overnight. Bowel/Bladder normal. Sleep/Appetite Normal. OBJECTIVE: Vital Signs Period Temp Pulse Resp BP Sys/Desai Pulse Ox Last 24 Hr 97.3 F-98.9 F 80-87 16-20 109-133/62-63 99 GENERAL: Patient is in supine position, Awake, alert, and fully oriented x 3, in no acute distress. HEAD: Normal with no signs of trauma. EYES: PEERLA, no icterus, no pallor. EARS, NOSE, THROAT: Ears normal NECK: No JVD or masses. LUNGS: On Percussion, dullness over the right lung base, Breath sounds decreased more towards the Right bases, crackles + right base. HEART: Regular rate and rhythm, normal S1 and S2 without murmur. ABDOMEN: Soft, nontender, not distended, normoactive bowel sounds, no guarding, no rebound, no masses. No hepatomegaly or splenomegaly. MUSCULOSKELETAL: Normal range of motion at all joints. No bony deformities or tenderness. No CVA tenderness. UPPER EXTREMITIES: 2+ pulses, warm, well-perfused. No cyanosis. No clubbing. LOWER EXTREMITIES: 2+ pulses, warm, well-perfused. No calf tenderness. B/L pitting edema in ankles, trace pitting edema B/L upto the mid calf. NEUROLOGICAL: Cranial nerves II-XII intact. Normal speech. Gait not observed. PSYCHIATRIC: Cooperative. Good eye contact. Appropriate mood and affect. SKIN: Warm, dry, normal turgor, no rashes or lesions noted. Laboratory Results - last 24 hr 06/05/16 06/05/16 06/06/16 11:29 17:00 05:14 Sodium Potassium Chloride Carbon Dioxide Anion Gap BUN Creatinine POC Glucometer 196 237 181 Random Glucose Calcium 06/06/16 07:35 Sodium 142 Potassium 4.1 Chloride 106 Carbon Dioxide 28 Anion Gap 8 BUN 36 H Creatinine 1.5 H POC Glucometer Random Glucose 153 H Calcium 8.5 Active Medications Generic Name Dose Route Start Last Admin Trade Name Freq PRN Reason Stop Dose Admin Carvedilol 25 mg 06/01/16 22:00 06/05/16 22:48 Coreg - PO 25 mg BID MARY Administration Cholecalciferol 1,000 unit 06/02/16 10:00 06/05/16 09:48 Vitamin D3 - PO 1,000 unit DAILY MARY Administration Docusate Sodium 100 mg 06/03/16 20:00 06/05/16 09:48 Colace - PO 100 mg DAILY MARY Administration Gabapentin 600 mg 06/01/16 22:00 06/05/16 22:48 Neurontin - PO 600 mg HS MARY Administration Guaifenesin 10 ml 06/04/16 16:27 06/04/16 16:50 Robitussin - PO 10 ml Q6H PRN Administration COUGH Levofloxacin 150 mls @ 100 mls/hr 06/04/16 10:00 06/04/16 09:45 Levaquin 750 Mg Premixed Ivpb - IVPB 100 mls/hr Q2D MARY Administration Insulin Aspart 1 vial 06/01/16 08:04 06/06/16 06:43 Novolog Vial Sliding Scale - SQ Not Given TIDAC [facility] Protocol Pantoprazole Sodium 40 mg 06/01/16 10:00 06/05/16 09:48 Protonix - PO 40 mg DAILY MARY Administration chest CT 06/01- In comparision to a previous CT exam of 05/01/2016 interval developement of interstitial pulmonary vascular congestion is noted with moderate right sided and small left sided pleural effusion, mild cardiomegaly. Right middle lobe infiltrate is seen which appears mildly increased in size in comparision to the prior study. Development of a nonspecific 1.5 cm x 0.6 cm left upper lobe pulmonary nodule is noted. ASSESSMENT/PLAN: 71 year old male with significant past medical history of DM, HTN, HLD, CHF, CAD s/p stents x3, skin CA, GOUT and hiatal hernia came in to the hospital with the chief complaints of difficulty in breathing and cough since 2weeks. # Congestive heart failure with pleural effusion with possible infiltrate Presented with difficulty in breathing and cough CT chest report mentioned above s/p thoracocentesis, patient felt much better after the removal of the fluid Pleural effusion most likely due to CHF (Transudative fluid on pleural fluid analysis) Patient on Levofloxacin Bronchoscopy on hold for now CXR to be repeated tomorrow # Acute Kidney Injury Most likely since patient was over diuresed, lasix on hold, Only 1L of fluid to be given today. # FEN Restricted to 1L of IV Fluids today Electrolytes to be repeated tomorrow Diabetic diet # Prophylaxis For DVT- Not indicated For GI- On Pantoprazole Rest per primary. Illness, Investigation and Plan of care explained to the patient. He verbalized understanding. Case seen and discussed with Dr. Garcia. Visit type - Emergency Visit Emergency Visit: Yes ED Registration Date: 06/01/16 Care time: The patient presented to the Emergency Department on the above date and was hospitalized for further evaluation of their emergent condition. - New Patient This patient is new to me today: No - Critical Care Critical Care patient: No
[2016-06-06] MEDS: CHOLECALCIFEROL (VITAMIN D3) 1,000 UNIT TABLET (FP) PO SCH (09:58)
[2016-06-06] MEDS: CARVEDILOL 25 MG TABLET (FP) PO SCH (09:58)
[2016-06-06] MEDS: LEVOFLOXACIN 750 MG IVPB 150 ML IVPB SCH (09:58)
[2016-06-06] MEDS: DOCUSATE SODIUM 100 MG CAPSULE (FP) PO SCH (09:58)
[2016-06-06] MEDS: PANTOPRAZOLE 40 MG TABLET (FP) PO SCH (09:58)
--- NOTE | 2016-06-06 11:26 | PN ---
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 (short form) - Note 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: NAD on RA. Overall feels better after thoracentesis (Transudative effusion). Intake & Output 06/03/16 06/04/16 06/05/16 06/06/16 23:59 23:59 23:59 23:59 Intake Total 1835 1150 750 240 Output Total 200 Balance 1835 1150 550 240 Weight 181 lb 9 oz 182 lb 3 oz 181 lb 184 lb 4 oz Last Vital Signs Temp Pulse Resp BP Pulse Ox 97.6 F 81 20 121/63 99 06/06/16 06:28 06/06/16 06:28 06/06/16 06:28 06/06/16 06:28 06/05/16 21:00 Active Medications Carvedilol (Coreg -) 25 mg PO BID [facility] Last Admin: 06/06/16 09:58 Dose: 25 mg Cholecalciferol (Vitamin D3 -) 1,000 unit PO DAILY [facility] Last Admin: 06/06/16 09:58 Dose: 1,000 unit Docusate Sodium (Colace -) 100 mg PO DAILY [facility] Last Admin: 06/06/16 09:58 Dose: 100 mg Gabapentin (Neurontin -) 600 mg PO HS [facility] Last Admin: 06/05/16 22:48 Dose: 600 mg Guaifenesin (Robitussin -) 10 ml PO Q6H PRN PRN Reason: COUGH Last Admin: 06/04/16 16:50 Dose: 10 ml Levofloxacin (Levaquin 750 Mg Premixed Ivpb -) 150 mls @ 100 mls/hr IVPB Q2D [facility] Last Admin: 06/06/16 09:58 Dose: 100 mls/hr Insulin Aspart (Novolog Vial Sliding Scale -) 1 vial SQ TIDAC [facility] PRN Reason: Protocol Last Admin: 06/06/16 06:43 Dose: Not Given Pantoprazole Sodium (Protonix -) 40 mg PO DAILY [facility] Last Admin: 06/06/16 09:58 Dose: 40 mg Constitutional: Yes: Awake and alert, NAD Eyes: Yes: WNL HENT: Yes: WNL Neck: Yes: WNL Cardiovascular: Yes: Regular Rate and Rhythm, S1, S2 Respiratory: Yes: Few scattered rhonchi Gastrointestinal: Yes: Normal Bowel Sounds, Soft Extremities: Yes: WNL Edema: No Labs: Laboratory Results - last 24 hr 06/05/16 06/05/16 06/06/16 11:29 17:00 05:14 Sodium Potassium Chloride Carbon Dioxide Anion Gap BUN Creatinine POC Glucometer 196 237 181 Random Glucose Calcium 06/06/16 07:35 Sodium 142 Potassium 4.1 Chloride 106 Carbon Dioxide 28 Anion Gap 8 BUN 36 H Creatinine 1.5 H POC Glucometer Random Glucose 153 H Calcium 8.5 Assessment/Plan Problem List - Problems (1) CHF (congestive heart failure) Code(s): I50.9 - HEART FAILURE, UNSPECIFIED clinically improving (2) CHF exacerbation Code(s): I50.9 - HEART FAILURE, UNSPECIFIED (3) Pneumonia Code(s): J18.9 - PNEUMONIA, UNSPECIFIED ORGANISM Qualifiers: Laterality: right Lung location: lower lobe of lung (4) CAD (coronary artery disease) Code(s): I25.10 - ATHSCL HEART DISEASE OF [place] CORONARY ARTERY W/O ANG PCTRS (5) HTN (hypertension) Code(s): I10 - ESSENTIAL (PRIMARY) HYPERTENSION (6) Hyperlipidemia Code(s): E78.5 - HYPERLIPIDEMIA, UNSPECIFIED (7) Insulin dependent diabetes mellitus Code(s): E11.9 - TYPE 2 DIABETES MELLITUS WITHOUT COMPLICATIONS Z79.4 - SCALE EXPERT (CURRENT) USE OF INSULIN (8) ARF likely from [place] Assessment/Plan Agree with ID that he should be monitored ABX from today Pre and post ambulation saturation BD TX PRN Would hold on bronchoscopy for now and reschedule if needed as an outpatient No Pulmonary contraindication for D/C planning Dr Bella Problem List - Problems (1) CHF (congestive heart failure) Code(s): I50.9 - HEART FAILURE, UNSPECIFIED (2) CHF exacerbation Code(s): I50.9 - HEART FAILURE, UNSPECIFIED (3) Pneumonia Code(s): J18.9 - PNEUMONIA, UNSPECIFIED ORGANISM Qualifiers: Laterality: right Lung location: lower lobe of lung (4) CAD (coronary artery disease) Code(s): I25.10 - ATHSCL HEART DISEASE OF [place] CORONARY ARTERY W/O ANG PCTRS (5) HTN (hypertension) Code(s): I10 - ESSENTIAL (PRIMARY) HYPERTENSION (6) Hyperlipidemia Code(s): E78.5 - HYPERLIPIDEMIA, UNSPECIFIED (7) Insulin dependent diabetes mellitus Code(s): E11.9 - TYPE 2 DIABETES MELLITUS WITHOUT COMPLICATIONS Z79.4 - SCALE EXPERT (CURRENT) USE OF INSULIN
--- NOTE | 2016-06-06 11:43 | PATH ---
Cytology Non-Gynecological Report Patient Name: ROSA MARIA GAGE Med. Rec. #: [id number] /Age/Gender: 1945 (Age: 71) / M Account: [id number] Location: [address] [place] [address] Taken: 06/04/2016 Received: 06/04/2016 Reported: 06/06/2016 Physicians: Sara Burciaga M.D. Specimen(s) Received A: RUQ PLEURAL FLUID IN 50% ALCOHOL B: RUQ PLEURAL FLUID FRESH Clinical History Pleural effusion Final Diagnosis A,B. PLEURAL FLUID, RIGHT UPPER QUADRANT, THORACENTESIS: SATISFACTORY FOR EVALUATION. NO MALIGNANT CELLS IDENTIFIED. REACTIVE MESOTHELIAL CELLS, HISTIOCYTES AND LYMPHOCYTES. Comment: Immunohistochemical stains performed and interpreted [facility] on cell blocks A and B show the cells in the effusion are negative for BerEP4/JIN and TTF1 immunostains; CK7 highlights mesothelial cells. These results are supportive of the interpretation above. Electronically Signed Steven Philip M.D. Gross Description A. Received is a 50 cc of reddish fluid in 50% alcohol. One cytofunnel slide and one cell block are made. B. Received is 1000 cc of red fluid fresh. One cytofunnel slide and one cell block are made.
[2016-06-06] MEDS ORDERED: ALBUTEROL SO4 0.083% IH SOL 2.5 MG/3 ML VIAL.NEB. NEB ONE (12:00)
[2016-06-06] MEDS ORDERED: ACETYLCYSTEINE 20% 200MG/ML 30 ML VIAL *FOR ORAL / INH USE ONLY NEB ONE (12:00)
[2016-06-06 12:21] VITALS: PULSE 88
[2016-06-06] MEDS ORDERED: ASPIRIN 81 MG CHEWABLE TABLETS PO SCH (12:45)
[2016-06-06] MEDS ORDERED: INSULIN (NOVOLOG) ASPART 100 UNITS/ML 10ML VIAL ONE (13:01)
--- NOTE | 2016-06-06 13:13 | PN ---
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, Physician History of Present Illness: Denies chest pain. Dyspnea improved following thoracentesis. Continues to deny any significant dyspnea. - Current Medication List Current Medications: Active Medications Aspirin (Asa -) 81 mg PO DAILY [facility] Last Admin: 06/06/16 12:53 Dose: 81 mg Atorvastatin Calcium (Lipitor -) 40 mg PO HS [facility] Carvedilol (Coreg -) 25 mg PO BID [facility] Last Admin: 06/06/16 09:58 Dose: 25 mg Cholecalciferol (Vitamin D3 -) 1,000 unit PO DAILY [facility] Last Admin: 06/06/16 09:58 Dose: 1,000 unit Docusate Sodium (Colace -) 100 mg PO DAILY [facility] Last Admin: 06/06/16 09:58 Dose: 100 mg Gabapentin (Neurontin -) 600 mg PO HS [facility] Last Admin: 06/05/16 22:48 Dose: 600 mg Guaifenesin (Robitussin -) 10 ml PO Q6H PRN PRN Reason: COUGH Last Admin: 06/04/16 16:50 Dose: 10 ml Levofloxacin (Levaquin 750 Mg Premixed Ivpb -) 150 mls @ 100 mls/hr IVPB Q2D [facility] Last Admin: 06/06/16 09:58 Dose: 100 mls/hr Insulin Aspart (Novolog Vial Sliding Scale -) 1 vial SQ TIDAC [facility] PRN Reason: Protocol Last Admin: 06/06/16 13:01 Dose: 4 unit Pantoprazole Sodium (Protonix -) 40 mg PO DAILY [facility] Last Admin: 06/06/16 09:58 Dose: 40 mg - Objective Vital Signs: Vital Signs Temperature 97.5 F L 06/06/16 11:37 Pulse Rate 88 06/06/16 11:45 Respiratory Rate 18 06/06/16 11:37 Blood Pressure 132/70 06/06/16 11:37 O2 Sat by Pulse Oximetry (%) 96 06/06/16 11:45 Constitutional: Yes: No Distress Eyes: Yes: Conjunctiva Clear, EOM Intact HENT: Yes: Atraumatic, Normocephalic Cardiovascular: Yes: Regular Rate and Rhythm. No: JVD Respiratory: Yes: CTA Bilaterally Gastrointestinal: Yes: Normal Bowel Sounds, Soft. No: Tenderness Edema: No Neurological: Yes: Alert, Oriented, Cran Nerves II-XII Intact Psychiatric: Yes: WNL Labs: CBC, BMP 06/03/16 07:20 06/06/16 07:35 Assessment/Plan 71 yo male with DM, HTN, hyperlipidemia, CHF, CAD, prior anterolateral NM 1994 w/ PCI of LAD & ramus, PCI of LAD 05/1996 (with 100% occluded ramus and patent RCA). He was admitted with worsening dsypnea over the past several weeks with productive cough. Patient recently treated in March for right middle and lower lobe pneumonia, and underwent bronchoscopy on 03/27/16. He was also recently diagnosed with sinus infection and was treated with antibiotics. CT chest on 06/01/16 demonstrate right middle lobe infiltrate, interstitial pulmonary vascular congestion, and moderate right sided and small left sided pleural effusion. Patient is currently pending repeat bronchoscopy and possible thoracentesis for pleural effusion. Patient was given furosemide 40 mg IV x1 on 06/01/16 and 06/02/16 with resulting renal failure with Cr 1.8 today (Normal Cr 1.1 on 06/01/16). BNP elevated at 6071 on admission. Cardiology was consulted for CHF evaluation. Prior cardiac studies in our office: 1) 09/19/15 Lexiscan sestamibi: Medium sized moderate to severe infarct of apical , apical lateral, apical anterior, mid anterolateral, and mid to basal anterior moura. No ischemia in remainder of LV. Mild apical lateral and mid anterolateral hypokinesis with calculated LVEF 49%. 2) 09/06/15 Echocardiogram: Technically difficult study. Normal LV size and estimated LVEF 55-60%. Mild diastolic dysfunction. Min TR. No pulm HTN. 06/01/16 ECG: Sinus rhythm with PVCs, anteroseptal infarct (old), non-specific ST-T abnormalities. No significant changes from ECG in our office on 08/29/15. Patient likely had CHF on admission, but developed acute renal failure with overdiuresis (IV lasix x 2 doses, with normal Cr on admission). Currently does not appear to be in grossly decompensated HF at this time. Cr improved to 1.5 today with IV fluid hydration. Currently euvolemic. Thoracentesis on 06/04/16 removed 1000 cc of serous sanguinous fluid. Pleural fluid analysis demonstrated protein ratio 0.46, LDH ratio 0.47, which is suggestive of transudative fluid. 06/05/16 Echo: Severe LV systolic dysfunction with apical, apical septal, and anterior wall akinesis, and severe hypokinesis of septal wall. Mild MR. Mod to severe TR. PASP 50-60 mmHg. RECS: No further diuresis. Acute renal failure due to overdiuresis. Patient does not appear to be in grossly decompensated CHF at this time. Continue carvedilol. Patient may be discharged today from cardiac standpoint with outpatient cardiology follow-up in 1 week in our office. Patient's pile driving setter is Dr. Beau Chacon but may follow-up with anyone in our office who is available in 1 week. Patient will need to undergo outpatient right and left cardiac catheterization given reduction in LV systolic function compared to echo and nuclear stress test in September 2015. Spoke with resident regarding plan. Call with questions.
[2016-06-06 13:37] VITALS: BP 136/78; TEMP 97.2
--- NOTE | 2016-06-06 14:41 | PN ---
Teaching Attending Note Name of Resident: Kena Daigle ATTENDING PHYSICIAN STATEMENT I saw and evaluated the patient. I reviewed the resident's note and discussed the case with the resident. I agree with the resident's findings and plan as documented. SUBJECTIVE: seen and evaluated at the bedside OBJECTIVE: resting comfortably on gearny on the way to interventional radiology ASSESSMENT AND PLAN: 71 YO M with PMH of DM, HTN, HLD, CHF, CAD s/p stents x3, skin CA, GOUT and hiatal hernia admitted for new B/L pleural effusions Pleural Effusions -right greater than left -was initially thought to be due to acute on chronic CHF and was treated with IV lasix but creat worsened and diureis has since stopped -now s/p thoracentesis; pleural fluid analysis suggestive of transudative process likely from CHF as pt does not have cirrhosis or nephrotic syndrome -echo shows poor EF with global hypokinesis -was onemperic levofloxacin (now renally dosed) but will discontinue as cultures negative and pleural fluid is transudative Acute Renal failure -effusion was initially thought to be due to acute on chronic CHF and was treated with IV lasix but creat worsened -diureis has since been stopped -creat improved with IVF ordered by cardio attending -should be on [id number] and lasix for CHF but hold at this time until labs can be repeated next week by cardio as an outpatient Dispo -for discharge today
[2016-06-06 14:48] LABS: URINE APPEARANCE CLEAR; URINE BILIRUBIN NEGATIVE (NEGATIVE); URINE COLOR YELLOW; URINE GLUCOSE (UA) 1+ (NEGATIVE); URINE KETONE NEGATIVE (NEGATIVE); URINE LEUK ESTERASE NEGATIVE (NEGATIVE); URINE NITRITE NEGATIVE (NEGATIVE); URINE UROBILINOGEN NEGATIVE E.U./dl (0.2-1.0)
[2016-06-06 14:52] LABS: URINE BLOOD 1+ (NEGATIVE); URINE PROTEIN 1+ (NEGATIVE)
[2016-06-06 14:54] LABS: GRANULAR CASTS 4 /lpf; URINE HYALINE CAST 24 /lpf; URINE MUCUS RARE; URINE RBC 3 /hpf (0-3); URINE WBC 2 /hpf (3-5)
--- NOTE | 2016-06-06 15:27 | PN ---
Physical Exam: SUBJECTIVE: Patient seen and examined saturated on RA post walk 87%. will require home oxygen on discharge, will follow up eithy pul and cardio OBJECTIVE: Vital Signs Period Temp Pulse Resp BP Sys/Desai Pulse Ox Last 24 Hr 97.2 F-98.9 F 77-88 16-20 109-136/62-78 96-99 GENERAL: The patient is awake, alert, and fully oriented, in no acute distress. HEAD: Normal with no signs of trauma. EYES: PERRL, extraocular movements intact, sclera anicteric, conjunctiva clear. No ptosis. ENT: Ears normal, nares patent, oropharynx clear without exudates, moist mucous membranes. NECK: Trachea midline, full range of motion, supple. LUNGS: Breath sounds equal, clear to auscultation bilaterally, no wheezes, no crackles, no accessory muscle use. HEART: Regular rate and rhythm, S1, S2 without murmur, rub or gallop. ABDOMEN: Soft, nontender, nondistended, normoactive bowel sounds, no guarding, no rebound, no hepatosplenomegaly, no masses. EXTREMITIES: 2+ pulses, warm, well-perfused, no edema. NEUROLOGICAL: Cranial nerves II through XII grossly intact. Normal speech, gait not observed. PSYCH: Normal mood, normal affect. SKIN: Warm, dry, normal turgor, no rashes or lesions noted Laboratory Results - last 24 hr 06/05/16 06/06/16 06/06/16 17:00 05:14 07:35 Sodium 142 Potassium 4.1 Chloride 106 Carbon Dioxide 28 Anion Gap 8 BUN 36 H Creatinine 1.5 H POC Glucometer 237 181 Random Glucose 153 H Calcium 8.5 Urine Color Urine Appearance Urine pH Ur Specific Belva Urine Protein Urine Glucose (UA) Urine Ketones Urine Blood Urine Nitrite Urine Bilirubin Urine Urobilinogen Ur Leukocyte Esterase Urine RBC Urine WBC Hyaline Casts Granular Casts Urine Mucus 06/06/16 06/06/16 12:57 13:30 Sodium Potassium Chloride Carbon Dioxide Anion Gap BUN Creatinine POC Glucometer 261 Random Glucose Calcium Urine Color Yellow Urine Appearance Clear Urine pH 5.0 Ur Specific Belva 1.017 Urine Protein 1+ H Urine Glucose (UA) 1+ H Urine Ketones Negative Urine Blood 1+ H Urine Nitrite Negative Urine Bilirubin Negative Urine Urobilinogen Negative Ur Leukocyte Esterase Negative Urine RBC 3 Urine WBC 2 Hyaline Casts 24 Granular Casts 4 Urine Mucus Rare Active Medications Generic Name Dose Route Start Last Admin Trade Name Yannq PRN Reason Stop Dose Admin Aspirin 81 mg 06/06/16 12:45 06/06/16 12:53 Asa - PO 81 mg DAILY MARY Administration Atorvastatin Calcium 40 mg 06/06/16 22:00 Lipitor - PO HS MARY Carvedilol 25 mg 06/01/16 22:00 06/06/16 09:58 Coreg - PO 25 mg BID MARY Administration Cholecalciferol 1,000 unit 06/02/16 10:00 06/06/16 09:58 Vitamin D3 - PO 1,000 unit DAILY MARY Administration Docusate Sodium 100 mg 06/03/16 20:00 06/06/16 09:58 Colace - PO 100 mg DAILY MARY Administration Gabapentin 600 mg 06/01/16 22:00 06/05/16 22:48 Neurontin - PO 600 mg HS MARY Administration Guaifenesin 10 ml 06/04/16 16:27 06/04/16 16:50 Robitussin - PO 10 ml Q6H PRN Administration COUGH Levofloxacin 150 mls @ 100 mls/hr 06/04/16 10:00 06/06/16 09:58 Levaquin 750 Mg Premixed Ivpb - IVPB 100 mls/hr Q2D MARY Administration Insulin Aspart 1 vial 06/01/16 08:04 06/06/16 13:01 Novolog Vial Sliding Scale - SQ 4 unit TIDAC [facility] Administration Protocol Pantoprazole Sodium 40 mg 06/01/16 10:00 06/06/16 09:58 Protonix - PO 40 mg DAILY MARY Administration ASSESSMENT/PLAN:
[2016-06-06] MEDS ORDERED: ATORVASTATIN CA 40 MG TABLET (FP) PO SCH (22:00)
== END 2016-06-06 19:03 | disposition home or self-care (01) | DRG 291 ==
LOC: JER 23:19 → SUPCPDRO 23:19 → UNDOADMIN 06-01 04:02 → JERBED 06-01 04:02 → J6S 06-01 15:17
PROVIDERS: ADMIT Internal Medicine; ATTEND Internal Medicine
PROC: 0W993ZX Drainage of Right Pleural Cavity, Percutaneous Approach, Diagnostic (ICD-10-PCS; principal; 2016-06-04)
DX: I11.0 Hypertensive heart disease with heart failure (principal); J18.9 Pneumonia, unspecified organism; J90 Pleural effusion, not elsewhere classified; N17.9 Acute kidney failure, unspecified; I25.10 Atherosclerotic heart disease of native coronary artery without angina pectoris; I50.9 Heart failure, unspecified; E78.5 Hyperlipidemia, unspecified; I10 Essential (primary) hypertension; M10.9 Gout, unspecified; K44.9 Diaphragmatic hernia without obstruction or gangrene; C44.89 Other specified malignant neoplasm of overlapping sites of skin; E11.9 Type 2 diabetes mellitus without complications; E78.00 Pure hypercholesterolemia, unspecified; I25.2 Old myocardial infarction; K21.9 Gastro-esophageal reflux disease without esophagitis; N40.0 Benign prostatic hyperplasia without lower urinary tract symptoms; N20.0 Calculus of kidney; E29.1 Testicular hypofunction; E04.9 Nontoxic goiter, unspecified; K58.8 Other irritable bowel syndrome; Z79.4 Long term (current) use of insulin; Z95.5 Presence of coronary angioplasty implant and graft
CPT/HCPCS: 36415; 71010-TC; 71020-TC; 71260-TC; 76942; 80048; 80053; 81003; 81015; 82040; 82042; 82150; 82438; 82550; 82945; 83605; 83615; 83735; 83880; 84100; 84155; 84157; 84311; 84478; 84484; 85025; 85027; 87040; 87070; 87075; 87102; 87116; 87205; 87206; 87210; 87899; 88108; 88305-TC; 88341-TC; 89051; 93005; 93010; 93306-TC; 94761; 97001-GP; 97116-GP; 99285-25; J1644

== ENCOUNTER 2016-11-05 00:43 | Inpatient (IN) | payer OTHER, BC ==
[2016-11-05] MEDS ORDERED: IBUPROFEN 400 MG TABLET (FP) PO ONE ×2 (01:26→01:31)
[2016-11-05] MEDS ORDERED: SODIUM CHLORIDE 1,000 ML IV SCH ×2 (01:30→05:45)
[2016-11-05 02:01] LABS: BASOPHIL 0.5 % (0-2.0); EOSINOPHIL 1.4 % (0-4.5); MCH 31.6 pg (25.7-33.7); MCHC 33.1 g/dl (32.0-35.9); MEAN CELL VOLUME 95.7 fl (80-96); MEAN PLT VOLUME 9.1 fl (7.5-11.1); NEUTROPHILS 82.1 % (42.8-82.8); PLATELET COUNT 123 K/MM3 (134-434); WHITE BLOOD COUNT 8.1 K/mm3 (4.0-10.0)
--- NOTE | 2016-11-05 02:11 | PDOC ---
*Physical Exam - Vital Signs Last Vital Signs Temp Pulse Resp BP Pulse Ox 99.3 F 108 H 26 H 160/74 90 L 11/05/16 01:09 11/05/16 01:09 11/05/16 01:09 11/05/16 01:09 11/05/16 01:09 ED Treatment Course - LABORATORY CBC & Chemistry Diagram: 11/07/16 05:35 11/07/16 05:35 - Medications Given in the ED: ED Medications Discontinued Medications Generic Name Dose Route Start Last Admin Trade Name Freq PRN Reason Stop Dose Admin Ibuprofen 800 mg 11/05/16 01:26 11/05/16 01:33 Motrin - PO 11/05/16 01:27 800 mg ONCE ONE Administration Medical Decision Making - Medical Decision Making 11/05/16 02:10 Pt seen by the Advanced Practice Provider under my direct supervision Ancillary studies reviewed I agree with plan as outlined by the Advanced Practice Provider ELDA Zavala *DC/Admit/Observation/Transfer Diagnosis at time of Disposition: Pneumonia, Hypoxia - Discharge Dispostion Disposition: HOME Condition at time of disposition: Stable - Prescriptions
[2016-11-05] MEDS ORDERED: AZITHROMYCIN IVPB 500 MG in DEXTROSE 5%-WATER - 250 ML IVPB ONE (02:18)
[2016-11-05] MEDS ORDERED: cefTRIAXone 2 GM/100 ML BAG (PRE-DOCKED) IVPB ONE (02:18)
[2016-11-05] MEDS ORDERED: methylPREDNISolone NA SUCC 125 MG/2 ML VIAL IVPB ONE (02:19)
--- NOTE | 2016-11-05 02:21 | PDOC ---
History of Present Illness - General Chief Complaint: SIRS, Suspected/Possible Stated Complaint: FEVER Time Seen by Provider: 11/05/16 01:15 History Source: Patient Exam Limitations: No Limitations - History of Present Illness Initial Comments: 11/05/16 02:22 71yo Male patient w/ PmHx: Heart Disease, 6 Cardiac Stents, DM, HTN, PNA x 2, presents to ED c/o cough, fever, generalized illness. Patient reports having heart surgery 8 weeks ago (Jul 30) for 3 stent placement w/ Dr. Clarke at [facility]. He states that he visited with Dr. Waters (ENT) last week to have "fluid from his lung and nose removed." Patient states tonight having coughing fits, bringing up greenish-yellowish phelgm, and fever (102.0). OTC Tylenol taken at 11pml. He denies any other complaints. PCP- Dr. Nunez. Timing/Duration: reports: week Severity: reports: moderate Possible Cause: Yes: illness exposure Modifying Factors: worse with: activity, albuterol inhaler, albuterol nebulizer , antibiotics, coughing, lying down, oxygen, rest, other Associated Symptoms: reports: cough, fever/chills, shortness of breath Aspirin Received prior to arrival: Yes: 81 mg x 1, provided at home ASA Contraindications(Core Measure): Yes: Plavix Past History - Travel Traveled outside of the country in the last 30 days: No Close contact w/someone who was outside of country & ill: No - Past Medical History Allergies/Adverse Reactions: Allergies Allergy/AdvReac Type Severity Reaction Status Date / Time pioglitazone HCl [From Actos] AdvReac Severe CHF Verified 11/05/16 01:10 Home Medications: Ambulatory Orders Cholecalciferol (Vitamin D3) [Vitamin D3] 1,000 unit PO DAILY 04/03/14 Aspirin [Ecotrin] 81 mg PO DAILY 03/26/16 Vitamin B Complex 1 each PO DAILY 03/26/16 Docusate Sodium 100 mg PO TID capsule 07/18/16 Multivit-Min/FA/Lycopen/Lutein [Centrum Silver Tablet] 1 each PO DAILY tablet 07/18/16 Carvedilol 25 mg PO BID tablet 10/04/16 Glyburide 5 mg PO BID tablet 10/04/16 Hydralazine HCl 50 mg PO TID tablet 10/29/16 Isosorbide Dinitrate 20 mg PO TID 10/29/16 Sacubitril/Valsartan [Entresto 24 Mg-26 Mg Tablet] 1 each PO BID tablet Acetaminophen [Tylenol] 650 mg PO QID PRN 11/05/16 Anemia: No Asthma: No Cancer: Yes (SKIN) Cardiac Disorders: Yes (STENTS , 07/30/16) CVA: No COPD: No (hx pneumonia) CHF: Yes Dementia: No Diabetes: Yes GI Disorders: No Disorders: No HTN: Yes Hypercholesterolemia: Yes Liver Disease: No Seizures: No Thyroid Disease: No - Surgical History Abdominal Surgery: Yes (HERNIA) Cardiac Surgery: Yes (STENTS ) Lung Surgery: (bronchoscopy 03/17) - Immunization History Td Vaccination: Yes Immunization Up to Date: Yes - Psycho/Social/Smoking Cessation Hx Anxiety: Yes Suicidal Ideation: No Smoking Status: No Smoking History: Former smoker Have you smoked in the past 12 months: No Number of Cigarettes Smoked Daily: 0 If you are a former smoker, when did you quit?: 35 YEARS AGO Information on smoking cessation initiated: No 'Breaking Loose' booklet given: 08/15/15 Hx Alcohol Use: No Drug/Substance Use Hx: No Substance Use Type: None Respiratory Specific PMHX - Complaint Specific PMHX Angina: No Bronchitis: No Pneumonia: Yes Pulmonary Embolus: No TB (Tuberculosis): No Review of Systems - Review of Systems Able to Perform ROS?: Yes Is the patient limited Peruvian proficient: No Constitutional: Yes: Chills, Fever HEENTM: No: Ear Pain, Nose Congestion, Nose Bleeding, Throat Pain, Difficulty Swallowing Respiratory: Yes: Cough, Shortness of Breath, Wheezing, Productive cough. No: Stridor, Hemoptysis Cardiac (ROS): No: Chest Pain, Lightheadedness, Palpitations, Syncope, Chest Tightness ABD/GI: No: Constipated, Diarrhea, Nausea, Poor Appetite, Poor Fluid Intake, Rectal Bleeding, Vomiting, Abdominal cramping, Tarry Stools : No: Burning, Dysuria, Frequency, Flank Pain, Hematuria, Pain, Urgency Musculoskeletal: No: Back Pain Integumentary: No: Bruising, Erythema, Rash, Sweating Neurological: No: Headache, Seizure, Unsteady Gait, Ataxia, Dizziness All Other Systems: Reviewed and Negative *Physical Exam - Vital Signs Last Vital Signs Temp Pulse Resp BP Pulse Ox 99.3 F 108 H 26 H 160/74 90 L 11/05/16 01:09 11/05/16 01:09 11/05/16 01:11/05/16 01:11/05/16 01:09 - Physical Exam General Appearance: Yes: Nourished, Appropriately Dressed, Mild Distress. No: Apparent Distress, Moderate Distress, Severe Distress Neck: positive: Trachea midline, Supple. negative: Decreased range of motion, Stridor, Lymphadenopathy (R), Lymphadenopathy (L) Respiratory/Chest: positive: Decreased Breath Sounds, Rhonchi, Wheezing Cardiovascular: positive: Tachycardia Gastrointestinal/Abdominal: positive: Normal Bowel Sounds, Soft. negative: Distended, Guarding, Rebound, Tenderness Musculoskeletal: positive: Normal Inspection. negative: CVA Tenderness Extremity: positive: Normal Capillary Refill, Normal Inspection, Normal Range of Motion. negative: Swelling, Calf Tenderness, Erythema, Inflammation Integumentary: positive: Normal Color, Dry, Warm. negative: Hives, Petechiae, Rash, Swelling Neurologic: positive: personal coach II-XII NML intact, Fully Oriented, Alert, Normal Mood/ Affect, Normal Response, Motor Strength 5/ ED Treatment Course - LABORATORY CBC & Chemistry Diagram: 11/05/16 01:50 11/05/16 01:50 - RADIOLOGY Radiology Studies Ordered: Category Date Time Status CHEST PA & LAT [RAD] Stat Radiology 11/05/16 01:26 Taken - Medications Given in the ED: ED Medications Discontinued Medications Generic Name Dose Route Start Last Admin Trade Name Amy PRN Reason Stop Dose Admin Ibuprofen 800 mg 11/05/16 01:26 11/05/16 01:33 Motrin - PO 11/05/16 01:27 800 mg ONCE ONE Administration *DC/Admit/Observation/Transfer Diagnosis at time of Disposition: Hypoxia Pneumonia Qualifiers: Pneumonia type: due to unspecified organism Laterality: right Lung location: middle lobe of lung Qualified Code(s): J18.1 - Lobar pneumonia, unspecified organism - Discharge Dispostion Condition at time of disposition: Fair Admit: Yes
[2016-11-05 02:26] LABS: INR 1.15 (0.82-1.09); PROTHROMBIN TIME (PATIENT) 12.7 SEC (9.98-11.88)
[2016-11-05] MEDS ORDERED: ALBUTEROL SO4 0.083% IH SOL 2.5 MG/3 ML VIAL.NEB. NEB ONE (02:48)
[2016-11-05] MEDS ORDERED: methylPREDNISolone NA SUCC 125 MG/2 ML VIAL ONE (02:49)
[2016-11-05] MEDS ORDERED: CEFTRIAXONE 100 ML IVPB ONE (02:49)
[2016-11-05] MEDS ORDERED: AZITHROMYCIN IVPB 250 ML IVPB ONE (02:49)
[2016-11-05] MEDS: ALBUTEROL SO4 0.083% IH SOL 2.5 MG/3 ML VIAL.NEB. NEB SCH (03:03)
[2016-11-05 03:18] LABS: URINE APPEARANCE CLEAR; URINE BILIRUBIN NEGATIVE (NEGATIVE); URINE BLOOD NEGATIVE (NEGATIVE); URINE COLOR LTYELLOW; URINE GLUCOSE (UA) NEGATIVE (NEGATIVE); URINE KETONE NEGATIVE (NEGATIVE); URINE LEUK ESTERASE NEGATIVE (NEGATIVE); URINE NITRITE NEGATIVE (NEGATIVE); URINE UROBILINOGEN NEGATIVE E.U./dl (0.2-1.0)
[2016-11-05 03:20] LABS: URINE PROTEIN 2+ (NEGATIVE)
[2016-11-05 03:21] LABS: URINE BACTERIA RARE /hpf (NONE SEEN); URINE HYALINE CAST 1 /lpf; URINE RBC 4 /hpf (0-3); URINE WBC 1 /hpf (3-5)
[2016-11-05 03:52] LABS: ALBUMIN 3.3 g/dl (3.4-5.0); BILIRUBIN,TOTAL 0.8 mg/dL (0.2-1.0); CALCIUM 8.3 mg/dL (8.5-10.1); COCKROFT - GAULT 39.86; CREATININE 1.8 mg/dL (0.7-1.3); TOT PROT 6.6 g/dl (6.4-8.2)
[2016-11-05 03:54] LABS: TROPONIN I 0.03 ng/ml (0.00-0.05)
--- NOTE | 2016-11-05 05:20 | PN ---
Teaching Attending Note Name of Resident: Pratibha Nuno ATTENDING PHYSICIAN STATEMENT I saw and evaluated the patient. I reviewed the resident's note and discussed the case with the resident. I agree with the resident's findings and plan as documented. SUBJECTIVE: 71 yo M with pmhx of DM, HTN, HLD, CAD s/p Stents X6 (last 07/30), gout, hiatal hernia who presents with cough, Fever (Tm 102), and sputum production, whoch is green in color. Notes shortness of breath improved at bedside. OBJECTIVE: Physical: VS: Vital Signs Period Temp Pulse Resp BP Sys/Desai Pulse Ox Last 24 Hr 99.3 F 108 26 160/74 90 RR 20 GEN: NAD, Sitting in bed, able to speak full sentences HEENT: NCAT, PERRL CARD: RRR S1, S2 RESP: Decreased breath sounds, R>L, course crackles at base ABD: BSX4, NTD to Palpation EXT: +1 pitting edema, bilateral and equal CXR- RML Infilterate ASSESSMENT AND PLAN: 71 yo M with pmhx of HTN, DM, HLD, CAD s/p Stents, hiatal hernia, who presents with cough and fever found to have a right middle lobe pneumonia. 1.) Sepsis secondary to PNA - C/w Abx, broaden if worsening - Urine Antigens - Ricardo Cx - Repeat LA - Ceftriaxone, Azithro given in ED 2.) CHF - Bnp increased in light of renal failure - Clinically does not look overloaded - Continue home Lasix dose - Daily wieght, NA restric, Fluid restrict - Last echo 06/18- Ef 51% 3.) SPIKE- - Monitor duiresis - Trend - U lytes - Avoid Nephrotoxins 4.) CAD S/P Stents - C/W Home meds - FU EKG 5.) Anemia- Normocytic - Chk B12, folate - Outpt. Fu 6.) DM - FS - RAISS 7.) Dvt PPx - Heparin [address] in Med-Sx
[2016-11-05] MEDS ORDERED: ACETAMINOPHEN 325 MG TABLET (FP) PO PRN (05:32)
--- NOTE | 2016-11-05 05:41 | HP ---
CHIEF COMPLAINT: cough PCP: Dr. Mcnamara HISTORY OF PRESENT ILLNESS: 71 year old male with a PMHx of CHF, DM, HTN, CAD, presents to the emergency room with productive cough with shortness of breath. Patient has started with these symptoms for the past week, they were accompanied with low grade fever and malaise. He went to his PCP last week, he was supposed to have follow up appointment with him today. Patient was not on any antibiotics. He has taken only Tylenol for fever. Patient denies chills, LAMA, n, v, chest pain, sob, leg swelling, dysuria, GI or complaints. He does sleep with 2 pillow at night. NO sick contacts. He has been hospitalized twice before for PNA in the past year. ER course was notable for patient being hypoxic, O2 on RA 90 and tachcardic, with increased respiratory rate. Patient was put on venti mask at 50%. On labs, no leukocytosis. Patient was found to be anemic with acute kidney injury, and elevated bnp. CXR showing right middle lobe pneumonia. Recent Travel: no PAST MEDICAL HISTORY: CHF, DM, HTN, CAD PAST SURGICAL HISTORY: cardiac stents Social History: Smoking:no Alcohol:no Drugs: no Family History: Allergies pioglitazone HCl [From Trubates] Adverse Reaction (Severe, Verified 11/05/16 01:10) CHF pt does not remember HOME MEDICATIONS: Home Medications Medication Instructions Recorded Cholecalciferol (Vitamin D3) 1,000 unit PO DAILY 04/03/14 [Vitamin D3] Aspirin [Ecotrin] 81 mg PO DAILY 03/26/16 Vitamin B Complex 1 each PO DAILY 03/26/16 Docusate Sodium 100 mg PO TID capsule 07/18/16 Multivit-Min/FA/Lycopen/Lutein 1 each PO DAILY tablet 07/18/16 [Centrum Silver Tablet] Carvedilol 25 mg PO BID tablet 10/04/16 Glyburide 5 mg PO BID tablet 10/04/16 Hydralazine HCl 50 mg PO TID tablet 10/29/16 Isosorbide Dinitrate 20 mg PO TID 10/29/16 Sacubitril/Valsartan [Entresto 24 1 each PO BID tablet 10/29/16 Mg-26 Mg Tablet] Acetaminophen [Tylenol] 650 mg PO QID PRN 11/05/16 REVIEW OF SYSTEMS CONSTITUTIONAL: Positive: fever, malaise Absent: chills, diaphoresis, generalized weakness, loss of appetite, weight change HEENT: Absent: rhinorrhea, nasal congestion, throat pain, throat swelling, difficulty swallowing, mouth swelling, ear pain, eye pain, visual changes CARDIOVASCULAR: Absent: chest pain, syncope, palpitations, irregular heart rate, lightheadedness , peripheral edema RESPIRATORY: Positive: sob. cough, orthopnea Absent: dyspnea with exertion, wheezing, stridor, hemoptysis GASTROINTESTINAL: Absent: abdominal pain, abdominal distension, nausea, vomiting, diarrhea, constipation, melena, hematochezia GENITOURINARY: Absent: dysuria, frequency, urgency, hesitancy, hematuria, flank pain, genital pain MUSCULOSKELETAL: Absent: myalgia, arthralgia, joint swelling, back pain, neck pain SKIN: Absent: rash, itching, pallor HEMATOLOGIC/IMMUNOLOGIC: Absent: easy bleeding, easy bruising, lymphadenopathy, frequent infections ENDOCRINE: Absent: unexplained weight gain, unexplained weight loss, heat intolerance, cold intolerance NEUROLOGIC: Absent: headache, focal weakness or paresthesias, dizziness, unsteady gait, seizure, mental status changes, bladder or bowel incontinence PSYCHIATRIC: Absent: anxiety, depression, suicidal or homicidal ideation, hallucinations. PHYSICAL EXAMINATION Vital Signs - 24 hr 11/05/16 01:09 Temperature 99.3 F Pulse Rate 108 H Respiratory 26 H Rate Blood Pressure 160/74 O2 Sat by Pulse 90 L Oximetry (%) GENERAL: Awake, alert, and fully oriented, in no acute distress. on venti mask HEAD: Normal with no signs of trauma. EYES: Pupils equal, round and reactive to light, extraocular movements intact, sclera anicteric, conjunctiva clear. No lid lag. LUNGS: course Breath sounds No wheezes, and mild crackles. No accessory muscle use. HEART: Regular rate and rhythm, normal S1 and S2 without murmur, rub or gallop. ABDOMEN: Soft, nontender, not distended, normoactive bowel sounds, no guarding, no rebound, no masses. No hepatomegaly or splenomegaly. UPPER EXTREMITIES: 2+ pulses, warm, well-perfused. No cyanosis. No clubbing. No peripheral edema. LOWER EXTREMITIES: 2+ pulses, warm, well-perfused. No calf tenderness. No peripheral edema. PSYCHIATRIC: Cooperative. Good eye contact. Appropriate mood and affect. SKIN: Warm, dry, normal turgor, no rashes or lesions noted, normal capillary refill. CBCD WBC 8.1 K/mm3 (4.0-10.0) D 11/05/16 01:50 RBC 3.46 M/mm3 (4.00-5.60) L 11/05/16 01:50 Hgb 10.9 GM/dL (11.7-16.9) L 11/05/16 01:50 Hct 33.1 % (35.4-49) L 11/05/16 01:50 MCV 95.7 fl (80-96) 11/05/16 01:50 MCHC 33.1 g/dl (32.0-35.9) 11/05/16 01:50 RDW 16.0 % (11.9-15.9) H D 11/05/16 01:50 Plt Count 123 K/MM3 (134-434) L 11/05/16 01:50 MPV 9.1 fl (7.5-11.1) 11/05/16 01:50 CMP Sodium 143 mmol/L (136-145) 11/05/16 01:50 Potassium 4.7 mmol/L (3.5-5.1) 11/05/16 01:50 Chloride 112 mmol/L (98-107) H 11/05/16 01:50 Carbon Dioxide 20 mmol/L (21-32) L D 11/05/16 01:50 Anion Gap 11 (8-16) 11/05/16 01:50 BUN 55 mg/dL (7-18) H D 11/05/16 01:50 Creatinine 1.8 mg/dL (0.7-1.3) H 11/05/16 01:50 Creat Clearance w eGFR 37.17 (>60) 11/05/16 01:50 Random Glucose 118 mg/dL (74-106) H D 11/05/16 01:50 Calcium 8.3 mg/dL (8.5-10.1) L 11/05/16 01:50 Total Bilirubin 0.8 mg/dL (0.2-1.0) 11/05/16 01:50 AST 13 U/L (15-37) L 11/05/16 01:50 ALT 25 U/L (12-78) 11/05/16 01:50 Alkaline Phosphatase 112 U/L (45-117) D 11/05/16 01:50 Total Protein 6.6 g/dl (6.4-8.2) 11/05/16 01:50 Albumin 3.3 g/dl (3.4-5.0) L 11/05/16 01:50 CARDIAC ENZYMES Creatine Kinase 99 IU/L (39-308) 11/05/16 01:50 Troponin I 0.03 ng/ml (0.00-0.05) D 11/05/16 01:50 ASSESSMENT/PLAN: 71 year old male with a past medical history of CAD, HTN, DM, presents with cough and sob admitted for sepsis secondary to pneumonia. Patient also found to have acute kidney injury and anemia. #sepsis secondary to right middle lobe pneumonia: -IVF was given inER; stopped due to hx of CHF and no evidence of lactic acidosis -IV ceftriaxone/ IV azithromycin -f/u blood cultures, urine antigens #acute hypoxic respiratory failure secondary to pneumonia -on venti mask sating well 98 -consider NC keep O2>92% #normocytic anemia: -baseline wnl -no hx dark stools; last colonoscopy wnl limits as per patient -iron studies, vit b12, folate -FOBT #microscopic hematuria: -had on previous admission -consider repear UA; renal/baldder US; #diabetes mellitus: -insulin SS ; BGM ACHS #Hx of CHf with mildly reduced ejection fraction: -bnp elevated; no peripheral edema; mild crackles -continue home lasix 40mg po qOD -last echo 06/18 EF 51% #SPIKE possible secondary to sepsis/ prerenal -patient was given IVF in ER; stopped did not want to fluid overload; -hold anette/arbs -urine electrolytes, urine cr avoid nephrotoxic agents #HTN: -Hydralazine 50mg tid FEN: Fluids: hold for now; po Electrolytes:wnl Diet: diabetic VTE prophylaxis: heparin sq Dispo: med surg, cont current management Problem List - Problem (1) CAD (coronary artery disease) Code(s): I25.10 - ATHSCL HEART DISEASE OF [place] CORONARY ARTERY W/O ANG PCTRS (2) HTN (hypertension) Code(s): I10 - ESSENTIAL (PRIMARY) HYPERTENSION (3) CHF (congestive heart failure) Code(s): I50.9 - HEART FAILURE, UNSPECIFIED (4) Pneumonia Code(s): J18.9 - PNEUMONIA, UNSPECIFIED ORGANISM Qualifiers: Laterality: right Lung location: lower lobe of lung (5) Diabetes Code(s): E11.9 - TYPE 2 DIABETES MELLITUS WITHOUT COMPLICATIONS (6) Microcytic anemia Code(s): D50.9 - IRON DEFICIENCY ANEMIA, UNSPECIFIED (7) Asymptomatic microscopic hematuria Code(s): R31.21 - ASYMPTOMATIC MICROSCOPIC HEMATURIA (8) Acute kidney failure Code(s): N17.9 - ACUTE KIDNEY FAILURE, UNSPECIFIED Visit type - Emergency Visit Emergency Visit: Yes Care time: The patient presented to the Emergency Department on the above date and was hospitalized for further evaluation of their emergent condition. - New Patient This patient is new to me today: Yes Date on this admission: 11/05/16 - Critical Care Critical Care patient: No
[2016-11-05] MEDS ORDERED: AZITHROMYCIN IVPB 250 MG in DEXTROSE 5%-WATER - 250 ML IVPB ONE (06:02)
[2016-11-05] MEDS ORDERED: DOCUSATE SODIUM 100 MG CAPSULE (FP) PO ONE (06:25)
[2016-11-05] MEDS ORDERED: hydrALAZINE HCL 25 MG TABLET (FP) ONE (06:25)
[2016-11-05] MEDS: hydrALAZINE HCL 50 MG TABLET (FP) PO SCH ×3 (06:33→22:30)
[2016-11-05] MEDS: DOCUSATE SODIUM 100 MG CAPSULE (FP) PO SCH ×3 (06:33→22:30)
[2016-11-05] MEDS: INSULIN SLIDING SCALE (NOVOLOG) 1 VIAL SQ SCH ×4 (08:29→22:31)
[2016-11-05] MEDS ORDERED: FUROSEMIDE 40 MG TABLET (FP) PO SCH (10:00)
[2016-11-05] MEDS ORDERED: cefTRIAXone 1 GM/50 ML BAG (PRE-DOCKED) IVPB SCH (10:00)
[2016-11-05] MEDS: CARVEDILOL 25 MG TABLET (FP) PO SCH ×2 (10:53→22:30)
[2016-11-05] MEDS: GABAPENTIN 300 MG CAPSULE (FP) PO SCH ×2 (10:54→22:30)
[2016-11-05] MEDS: HEPARIN NA (PORCINE) 5,000 UNITS/ML 1ML VIAL SQ SCH ×2 (10:54→18:21)
[2016-11-05] MEDS: ASPIRIN COATED 81 MG TABLET.EC PO SCH (10:54)
[2016-11-05] MEDS: CLOPIDOGREL BISULFATE 75 MG TABLET (FP) PO SCH (10:55)
[2016-11-05] MEDS: MULTIVITAMINS THER W-MINERALS COMBO TABLET (FP) PO SCH (10:55)
[2016-11-05] MEDS: CHOLECALCIFEROL (VITAMIN D3) 1,000 UNIT TABLET (FP) PO SCH (10:56)
--- NOTE | 2016-11-05 11:03 | EKG ---
Test Reason : Blood Pressure : / mmHG Vent. Rate : 106 BPM Atrial Rate : 106 BPM P-R Int : 182 ms QRS Dur : 090 ms QT Int : 326 ms P-R-T Axes : 064 -38 112 degrees QTc Int : 433 ms SINUS TACHYCARDIA LEFT AXIS DEVIATION T WAVE ABNORMALITY, CONSIDER LATERAL ISCHEMIA ABNORMAL ECG WHEN COMPARED WITH ECG OF 01-JUN-2016 00:30, PREMATURE VENTRICULAR COMPLEXES ARE NO LONGER PRESENT T WAVE INVERSION LESS EVIDENT IN LATERAL LEADS CLINICAL CORRELATION IS RECOMMENDED Confirmed by JULES ANDERSON, JADEN ([id number]) on 11/05/2016 11:02:41 AM Referred By: Confirmed By:JADEN VICENTE MD
[2016-11-05] MEDS ORDERED: INSULIN DETEMIR 100 UNITS/ML MDV SQ ONE (11:15)
[2016-11-05] MEDS ORDERED: FUROSEMIDE 40 MG/4 ML INJECTABLE VIAL IVPUSH ONE (11:23)
--- NOTE | 2016-11-05 12:31 | CON.PULM ---
Consult Consult Specialty:: PULMONARY Referred by:: Dr. Fernandez Reason for Consultation:: pneumonia - History of Present Illness Chief Complaint: fever History of Present Illness: 71yo male with h/o HTN, DM, CAD s/p multiple stents, LV systolic dysfunction, pulmonary HTN, h/o pneumonia who presents with worsening cough and fever x 1 day. Denies shortness of breath or chest pain. No nausea, vomiting or diarrhea. No sick contacts or recent travel. Last seen in March for bronchoscopy where his RML was occluded by mucous plugs without evidence of endobronchial lesions. BAL cultures at that time grew MRSA. No antibiotics given but pt was doing clinically well. Had admission for decompensated CHF with bilateral pleural effusions s/p thoracentesis which was consistent with transudate subsequently had cardiac cath and more stent placements. - History Source History Provided By: Patient, Significant Other Limitations to Obtaining History: No Limitations - Past Medical History Cardio/Vascular: Yes: CAD (prior anterolateral [place] 03/1995 w/ PCI of LAD & ramus , PCI of LAD 05/1996 (with 100% occluded ramus and patent RCA)), CHF, Hyperlipdemia, [place] (anterolateral [place] 1994) Gastrointestinal: Yes: GERD, Irritable Bowel Disease Renal/: Yes: BPH, Renal Calculi Musculoskeletal: Yes: Osteoarthritis Rheumatology: Yes: Gout Endocrine: Yes: Diabetes Mellitus, Other (Hypogonadism, nodular goiter) - Past Surgical History Past Surgical History: Yes: Cataract Removal (bilateral), Hernia Repair ( umbillical) - Alcohol/Substance Use Hx Alcohol Use: No History of Substance Use: reports: None - Smoking History Smoking history: Former smoker Have you smoked in the past 12 months: No Aproximately how many cigarettes per day: 0 If you are a former smoker, when did you quit?: 35 YEARS AGO - Social History ADL: Independent History of Recent Travel: No Home Medications - Allergies Allergies/Adverse Reactions: Allergies Allergy/AdvReac Type Severity Reaction Status Date / Time pioglitazone HCl [From Actos] AdvReac Severe CHF Verified 11/05/16 01:10 - Home Medications Home Medications: Ambulatory Orders Cholecalciferol (Vitamin D3) [Vitamin D3] 1,000 unit PO DAILY 04/03/14 Aspirin [Ecotrin] 81 mg PO DAILY 03/26/16 Vitamin B Complex 1 each PO DAILY 03/26/16 Docusate Sodium 100 mg PO TID capsule 07/18/16 Multivit-Min/FA/Lycopen/Lutein [Centrum Silver Tablet] 1 each PO DAILY tablet 07/18/16 Carvedilol 25 mg PO BID tablet 10/04/16 Glyburide 5 mg PO BID tablet 10/04/16 Hydralazine HCl 50 mg PO TID tablet 10/29/16 Isosorbide Dinitrate 20 mg PO TID 10/29/16 Sacubitril/Valsartan [Entresto 24 Mg-26 Mg Tablet] 1 each PO BID tablet Acetaminophen [Tylenol] 650 mg PO QID PRN 11/05/16 Family Disease History - Family Disease History Family Disease History: Heart Disease: Mother (CHF) Review of Systems - Review of Systems Constitutional: reports: Chills, Fever, Malaise Eyes: denies: Recent Change in Vision HENT: denies: Nasal Congestion, Throat Pain Neck: denies: Stiffness, Tenderness Cardiovascular: denies: Chest Pain, Palpitations, Shortness of Breath Respiratory: reports: Cough. denies: Hemoptysis, SOB, Wheezing Gastrointestinal: denies: Abdominal Pain, Nausea, Vomiting Genitourinary: denies: Dysuria, Hematuria Neurological: denies: Dizziness, Headache Physical Exam Vital Sings: Vital Signs Temperature 97.6 F 11/05/16 10:52 Pulse Rate 74 11/05/16 10:52 Respiratory Rate 18 11/05/16 10:52 Blood Pressure 114/51 11/05/16 10:52 O2 Sat by Pulse Oximetry (%) 97 11/05/16 10:52 Constitutional: Yes: No Distress, Calm Eyes: Yes: Conjunctiva Clear, EOM Intact HENT: Yes: Atraumatic, Normocephalic Neck: Yes: Supple, Trachea Midline Cardiovascular: Yes: Regular Rate and Rhythm Respiratory: Yes: Rhonchi (scattered) ...Clubbing: No Gastrointestinal: Yes: Normal Bowel Sounds, Soft. No: Tenderness Edema: No Imaging - Results Chest X-ray: Report Reviewed, Image Reviewed Problem List - Problems (1) Pneumonia Code(s): J18.9 - PNEUMONIA, UNSPECIFIED ORGANISM Qualifiers: Laterality: right Lung location: lower lobe of lung (2) CAD (coronary artery disease) Code(s): I25.10 - ATHSCL HEART DISEASE OF [place] CORONARY ARTERY W/O ANG PCTRS (3) Chronic left systolic heart failure Code(s): I50.22 - CHRONIC SYSTOLIC (CONGESTIVE) HEART FAILURE (4) Pulmonary hypertension Code(s): I27.2 - OTHER SECONDARY PULMONARY HYPERTENSION Assessment/Plan r/o Pneumonia Atelectasis LV Systolic Dysfunction Pulmonary HTN CAD s/p PCI HTN DM - received empiric antibiotics in ER, will continue same for now - sputum culture - for CT chest - O2 as needed - inhaled bronchodilators - f/u echocardiogram - DVT prophylaxis - further recommendations pending CT chest Thank you for this consult Bebeto Paul MD
--- NOTE | 2016-11-05 13:14 | PN ---
Teaching Attending Note Name of Resident: Daniel Hale ATTENDING PHYSICIAN STATEMENT I saw and evaluated the patient. I reviewed the resident's note and discussed the case with the resident. I agree with the resident's findings and plan as documented. SUBJECTIVE: no cp or SOB. feels better . reports cough with sputum production inpast week. he thinks he had fever 100 at home. denies sore throat. has no abd pain or diarrhea. He thinks that his legs might have been getting more swollen . he reports eating a lot of mohawk food last week. he reports being compliant with his medications . OBJECTIVE: NAD , AAOx3. pleasant and cooperative. CV: RRR, no MRG, NO JVD, but positive hepatojugular reflux. Lungs : decreased breath sounds at R base , and has crackles on L base Ext : no 1+ edema on Legs exp R . varicose veins . Abd : soft, NT, + hepatojugular reflux, liver is not percussed or palpated. A/P : 71 y/o gentleman with h/o HTN, chronic Systolic heart failure , HLP, DM , CAD s /p stenting , and recnet admissions for SOB, s/p bronch(mucus plugging), and R paracentesis who presented with SOB and cough . 1- SOB: no clear etiology at this time. history and exam findings suggest fluid overload from S CHF ( hepatojugular reflux, decreased breath sounds on R and crackles on left, LE edema ,BUN of 55 and h/o Karl food last week, ). Although he reported fever at home, PNA is still questionable with NL WBC, and no objective fever here. still covering for PNA is reasonable for now Cxray shows a well demarcated area in R lung which is likely atelectsis vs flulid in fissure - check CT scan w/o contrat of lungs. eval for pleural effusion,infiltrate . other - Repeat echo ( last one in 06/18 with severely reduced EF, PHTN 50-60, severe TR) . - try 20 of IV lasix and montor response - strict I&O - cont Abx for now - sputum cx - pulm consult appreciated. - cont coreg. 2- SPIKE: base line cr 1.1 . ? CKD as has chronic protein uria. no blood in urine. likely prerenal azotemia from decreaed ICU NURSE. - monitor with diuresis - US pending 3- HTN: cont coreg and HZN 4- DM: - hold glyburide nad cont insulin levemir 5- CAD , s/p recent stenting .EKG reviewed, LAD with flat TW in V6 ( improved from prior EKG) cont ASa and plavix. cont BB dispo : HLOC
--- NOTE | 2016-11-05 14:29 | PN ---
Physical Exam: SUBJECTIVE: Patient seen and examined at bedside. No new complaints. States he feels better. Continues to have some SOB. Denies CP,LAMA, palpitations, abd.pain, N/V. OBJECTIVE: Vital Signs Period Temp Pulse Resp BP Sys/Desai Pulse Ox Last 24 Hr 97.5 F-97.8 F 73-81 18-20 101-120/46-55 95-97 GENERAL: AAOx3 , NAD HEAD: NC/AT EYES: PERRL, EOMI, sclera anicteric, conjunctiva clear. No ptosis. ENT: moist mucous membranes. NECK: No JVD, supple. LUNGS: Disminshed BS of right lung field. Left side basilar rales. HEART: RRR, no M/G/R ABDOMEN: Soft, nt, nd, BS(+). EXTREMITIES: 2+ pulses, warm, well-perfused, 1+ bliateral lower ext. edema. NEUROLOGICAL: Cranial nerves II through XII grossly intact. Normal speech, gait not observed. PSYCH: Normal mood, normal affect. SKIN: Warm, dry, normal turgor, no rashes or lesions noted Laboratory Results - last 24 hr 11/05/16 11/05/16 11/05/16 08:06 11:00 11:57 POC Glucometer [phone] Ur Random Sodium 28 Ur Random Potassium 37.9 Ur Random Chloride 28 Urine Creatinine 117.0 Active Medications Generic Name Dose Route Start Last Admin Trade Name Freq PRN Reason Stop Dose Admin Acetaminophen 650 mg 11/05/16 05:32 Tylenol - PO Q4H PRN FEVER OR PAIN Aspirin 81 mg 11/05/16 10:00 11/05/16 10:54 Ecotrin - PO 81 mg DAILY MARY Administration Atorvastatin Calcium 80 mg 11/05/16 22:00 Lipitor - PO HS MARY Carvedilol 25 mg 11/05/16 10:00 11/05/16 10:53 Coreg - PO Not Given BID MARY Cholecalciferol 1,000 unit 11/05/16 10:00 11/05/16 10:56 Vitamin D3 - PO 1,000 unit DAILY MARY Administration Clopidogrel Bisulfate 75 mg 11/05/16 10:00 11/05/16 10:55 Plavix - PO 75 mg DAILY MARY Administration Docusate Sodium 100 mg 11/05/16 06:00 11/05/16 06:33 Colace - PO 100 mg TID MARY Administration Gabapentin 600 mg 11/05/16 10:00 11/05/16 10:54 Neurontin - PO 600 mg BID MARY Administration Heparin Sodium (Porcine) 5,000 unit 11/05/16 10:00 11/05/16 10:54 Heparin - SQ 5,000 unit Q8H-IV MARY Administration Hydralazine HCl 50 mg 11/05/16 06:00 11/05/16 06:33 Apresoline - PO 50 mg TID MARY Administration Azithromycin 250 mls @ 250 mls/hr 11/06/16 10:00 Zithromax 500mg Ivpb (Pre-Docked) IVPB DAILY MARY Ceftriaxone Sodium 50 mls @ 100 mls/hr 11/06/16 10:00 Rocephin 1gm Ivpb (Pre-Docked) IVPB DAILY MARY Insulin Aspart 1 vial 11/05/16 07:00 11/05/16 12:02 Novolog Vial Sliding Scale - SQ 6 unit ACHS MARY Administration Protocol Multivitamins/Minerals 1 each 11/05/16 10:00 11/05/16 10:55 Theragran-M PO 1 each DAILY MARY Administration ASSESSMENT/PLAN: 71 yo M with PMhx of CHF, CAD(s/p 3 stents), DM, HLD, and gout admitted for acute exacerbation of CHF. Problem List - Problems (1) Shortness of breath Assessment/Plan: * unclear etiology at this time. * CT chest shows right pleural effusion with lower lobe atelectasis. With additional area of consolidation/atelectasis within R middle lobe. * His history and exam are more suggestive of acute exacerbation of CHF( LE edema, elevated BUN, Lung crackles and effusion, and h/o increase salt in diet. * PNA is still possible with CT showing consolidationof R middle lobe will continue Abx. for now. However given that no fevers here and no leukocytosis less likely. * Will give 20mg IV lasix and monitory I/O's * Sputum culture and urine antigens pending. * Consult pulmonary. (2) CHF (congestive heart failure), NYHA class III Assessment/Plan: * Given PE and history acute exacerbation possible. * Previous echo in jun 2016 showed RVSP 50-60, Severely reduced LV function, and severe TR. * Will get repeat echo * stat dose of Lasix 20mg IV now. * Will monitor I/O's * daily weights. (3) Pleural effusion Assessment/Plan: * Seen on CT in 2015 (4) Acute kidney failure Assessment/Plan: * This is pre-renal with FeNa of 0.3% most likely from hypoperfusion v. volume depletion. * Will monitor for now. * US pending (5) Diabetes Assessment/Plan: * ADA diet * ISS ACTID * BGM ACHS * Levamir 25 units. (6) CAD (coronary artery disease) Assessment/Plan: * continue ASA and plavix (7) HTN (hypertension) Assessment/Plan: * Continue Coreg and Hydralazine. (8) Hyperlipidemia Assessment/Plan: * Continue Lipitor. Visit type - Emergency Visit Emergency Visit: Yes ED Registration Date: 11/05/16 Care time: The patient presented to the Emergency Department on the above date and was hospitalized for further evaluation of their emergent condition. - New Patient This patient is new to me today: Yes Date on this admission: 11/06/16 - Critical Care Critical Care patient: No
[2016-11-05] MEDS: ATORVASTATIN CA 80 MG TABLET (FP) PO SCH (22:30)
[2016-11-05 23:41] VITALS: BMI 27.8
[2016-11-06] MEDS: HEPARIN NA (PORCINE) 5,000 UNITS/ML 1ML VIAL SQ SCH ×3 (01:43→17:15)
[2016-11-06] MEDS: INSULIN SLIDING SCALE (NOVOLOG) 1 VIAL SQ SCH ×4 (06:41→21:44)
[2016-11-06] MEDS: hydrALAZINE HCL 50 MG TABLET (FP) PO SCH ×3 (06:42→21:43)
[2016-11-06] MEDS: DOCUSATE SODIUM 100 MG CAPSULE (FP) PO SCH ×3 (06:42→21:43)
[2016-11-06] MEDS ORDERED: INSULIN (NOVOLOG) ASPART 100 UNITS/ML 10ML VIAL ONE (07:00)
[2016-11-06 07:18] LABS: BASOPHIL 0.1 % (0-2.0); MCH 32.4 pg (25.7-33.7); MCHC 33.8 g/dl (32.0-35.9); MEAN CELL VOLUME 95.7 fl (80-96); MEAN PLT VOLUME 9.4 fl (7.5-11.1); NEUTROPHILS 90.4 % (42.8-82.8); PLATELET COUNT 123 K/MM3 (134-434); RDW 16.5 % (11.9-15.9)
[2016-11-06 07:21] LABS: CALCIUM 8.5 mg/dL (8.5-10.1)
[2016-11-06 07:22] LABS: COCKROFT - GAULT 47.66; CREATININE 1.5 mg/dL (0.7-1.3)
[2016-11-06] MEDS: MULTIVITAMINS THER W-MINERALS COMBO TABLET (FP) PO SCH (10:04)
[2016-11-06] MEDS: CEFTRIAXONE 50 ML IVPB SCH (10:04)
[2016-11-06] MEDS: GABAPENTIN 300 MG CAPSULE (FP) PO SCH ×2 (10:04→21:43)
[2016-11-06] MEDS: ASPIRIN COATED 81 MG TABLET.EC PO SCH (10:04)
[2016-11-06] MEDS: CHOLECALCIFEROL (VITAMIN D3) 1,000 UNIT TABLET (FP) PO SCH (10:04)
[2016-11-06] MEDS: CARVEDILOL 25 MG TABLET (FP) PO SCH ×2 (10:04→21:43)
[2016-11-06] MEDS: CLOPIDOGREL BISULFATE 75 MG TABLET (FP) PO SCH (10:05)
[2016-11-06] MEDS: AZITHROMYCIN IVPB 250 ML IVPB SCH (10:06)
[2016-11-06] MEDS: FUROSEMIDE 20 MG TABLET (FP) PO SCH (10:53)
--- NOTE | 2016-11-06 12:58 | PN ---
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 (short form) - Note 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: PULMONARY CHART REVIEWED WANTS TO PLAY GOLF SRAVAN DENIES CP/SOME SOB VSS/AFEBRILE ANICTERIC DIMINISHED RIGHT BASE WITH DULLNESS EXTENDING UP1/4 LUNG FIELD S1S2 BS+ NONTENDER NO EDEMA LABS/MEDS/CT/NOTES/MICRO REVIEWED RIGHT SIDED INFILTRATE RIGHT PLEURAL EFFUSION TAPPED IN PAST FOUND TO BE TRANSUDATIVE IN NATURE(06/2016) PATIENT HAD BRONCHO DONE 03/2016 FOUND TO HAVE MUCOUS PLUGGING RML NO LESIONS NOTED S/P PCI STENT PLACED DRUG ELUTING APPROX 12 WEEKS AGO ADMITTED NOW WITH FEVER/HYPOXEMIA/INFILTRATE/PLEURAL EFFUSION (RIGHT) WOULD TREAT FOR PNEUMONIA/IV ABS/O2/BRONCHODILATORS NEEDED PLEURAL EFFUSION UNABLE TO BE RE-TAPPED AT THIS TIME DUE TO RECENT CARDIAC INTERVENTION SUGGEST CARDIO CONSULT GIVEN ABOVE HISTORY Yusuf ARGUELLO MD
--- NOTE | 2016-11-06 16:55 | PN ---
Physical Exam: SUBJECTIVE: Patient seen and examined at bedside. He feels much better today. Breathing has improved. Denies CP,LAMA, SOB, palpitations, abd. pain, N/V. OBJECTIVE: Vital Signs Period Temp Pulse Resp BP Sys/Desai Pulse Ox Last 24 Hr 97.8 F-98.2 F 76-87 16-19 106-143/49-68 94-98 GENERAL: AAOx3 , NAD HEAD: NC/AT EYES: PERRL, EOMI, sclera anicteric, conjunctiva clear. No ptosis. ENT: moist mucous membranes. NECK: No JVD, supple. LUNGS: improved BS of right lung field. Left side basilar rales. HEART: RRR, no M/G/R ABDOMEN: Soft, nt, nd, BS(+). EXTREMITIES: 2+ pulses, warm, well-perfused, 1+ bliateral lower ext. edema. NEUROLOGICAL: Cranial nerves II through XII grossly intact. Normal speech, gait not observed. PSYCH: Normal mood, normal affect. SKIN: Warm, dry, normal turgor, no rashes or lesions noted Laboratory Results - last 24 hr 11/05/16 11/05/16 11/06/16 17:30 22:29 05:38 WBC 10.0 RBC 3.70 L Hgb 12.0 D Hct 35.4 MCV 95.7 MCHC 33.8 RDW 16.5 H Plt Count 123 L MPV 9.4 Neutrophils % 90.4 H Lymphocytes % 6.6 L D Monocytes % 2.9 L Eosinophils % 0.0 D Basophils % 0.1 Sodium Potassium Chloride Carbon Dioxide Anion Gap BUN Creatinine POC Glucometer [phone] Random Glucose Calcium 11/06/16 11/06/16 11/06/16 05:38 05:38 12:28 WBC RBC Hgb Hct MCV MCHC RDW Plt Count MPV Neutrophils % Lymphocytes % Monocytes % Eosinophils % Basophils % Sodium 142 Potassium 4.5 Chloride 110 H Carbon Dioxide 20 L Anion Gap 12 BUN 60 H Creatinine 1.5 H POC Glucometer 210 407 Random Glucose 218 H D Calcium 8.5 11/06/16 12:35 WBC RBC Hgb Hct MCV MCHC RDW Plt Count MPV Neutrophils % Lymphocytes % Monocytes % Eosinophils % Basophils % Sodium Potassium Chloride Carbon Dioxide Anion Gap BUN Creatinine POC Glucometer Random Glucose 351 H* D Calcium Active Medications Generic Name Dose Route Start Last Admin Trade Name Freq PRN Reason Stop Dose Admin Acetaminophen 650 mg 11/05/16 05:32 Tylenol - PO Q4H PRN FEVER OR PAIN Aspirin 81 mg 11/05/16 10:00 11/06/16 10:04 Ecotrin - PO 81 mg DAILY MARY Administration Atorvastatin Calcium 80 mg 11/05/16 22:00 11/05/16 22:30 Lipitor - PO 80 mg HS MARY Administration Carvedilol 25 mg 11/05/16 10:00 11/06/16 10:04 Coreg - PO 25 mg BID MARY Administration Cholecalciferol 1,000 unit 11/05/16 10:00 11/06/16 10:04 Vitamin D3 - PO 1,000 unit DAILY MARY Administration Clopidogrel Bisulfate 75 mg 11/05/16 10:00 11/06/16 10:05 Plavix - PO 75 mg DAILY MARY Administration Docusate Sodium 100 mg 11/05/16 06:00 11/06/16 14:43 Colace - PO 100 mg TID MARY Administration Furosemide 20 mg 11/06/16 10:00 11/06/16 10:53 Lasix - PO 20 mg DAILY MARY Administration Gabapentin 600 mg 11/05/16 10:00 11/06/16 10:04 Neurontin - PO 600 mg BID MARY Administration Heparin Sodium (Porcine) 5,000 unit 11/05/16 10:00 11/06/16 10:05 Heparin - SQ 5,000 unit Q8H-IV MARY Administration Hydralazine HCl 50 mg 11/05/16 06:00 11/06/16 14:43 Apresoline - PO 50 mg TID MARY Administration Azithromycin 250 mls @ 250 mls/hr 11/06/16 10:00 11/06/16 10:06 Zithromax 500mg Ivpb (Pre-Docked) IVPB 250 mls/hr DAILY MARY Administration Ceftriaxone Sodium 50 mls @ 100 mls/hr 11/06/16 10:00 11/06/16 10:04 Rocephin 1gm Ivpb (Pre-Docked) IVPB 100 mls/hr DAILY MARY Administration Insulin Aspart 1 vial 11/05/16 07:00 11/06/16 12:29 Novolog Vial Sliding Scale - SQ 10 unit ACHS MARY Administration Protocol Multivitamins/Minerals 1 each 11/05/16 10:00 11/06/16 10:04 Theragran-M PO 1 each DAILY MARY Administration ASSESSMENT/PLAN: 71 yo M with PMhx of CHF, CAD(s/p 3 stents), DM, HLD, and gout admitted for acute exacerbation of CHF Problem List - Problems (1) Shortness of breath Assessment/Plan: * CT chest shows right pleural effusion with lower lobe atelectasis. With additional area of consolidation/atelectasis within R middle lobe. * Sputum culture and urine antigens pending. * Consult pulmonary. * Continue IV abx for possible PNA * Duonebs PRN * IV steroids. (2) CHF (congestive heart failure), NYHA class III Assessment/Plan: * Previous echo in jun 2016 showed RVSP 50-60, Severely reduced LV function, and severe TR. * repeat echo * Continue Lasix 20mg PO daily * Will monitor I/O's * daily weights. * Cardiology consult. (3) Pleural effusion Assessment/Plan: * Seen on CT in 2015 * Smaller now than before * Unable to tap at this time due to being on Plavix. (4) Acute kidney failure Assessment/Plan: * improved * FeNa of 0.3% most likely from hypoperfusion v. volume depletion. * Will monitor for now. * avoid nephrotoxins (5) Diabetes Assessment/Plan: * ADA diet * ISS ACTID * BGM ACHS * Levamir 25 units. (6) CAD (coronary artery disease) Assessment/Plan: * continue ASA and plavix (7) HTN (hypertension) Assessment/Plan: * Continue Coreg and Hydralazine. (8) Hyperlipidemia Assessment/Plan: * Continue Lipitor. Visit type - Emergency Visit Emergency Visit: Yes ED Registration Date: 11/05/16 Care time: The patient presented to the Emergency Department on the above date and was hospitalized for further evaluation of their emergent condition. - New Patient This patient is new to me today: No - Critical Care Critical Care patient: No
--- NOTE | 2016-11-06 20:14 | PN ---
Teaching Attending Note Name of Resident: Daniel Hale ATTENDING PHYSICIAN STATEMENT I saw and evaluated the patient. I reviewed the resident's note and discussed the case with the resident. I agree with the resident's findings and plan as documented. SUBJECTIVE: Patient looks comfortable, would like to go home. OBJECTIVE: Vital Signs Temperature 98.0 F 11/06/16 18:00 Pulse Rate 86 11/06/16 18:00 Respiratory Rate 18 11/06/16 18:00 Blood Pressure 126/60 11/06/16 18:00 O2 Sat by Pulse Oximetry (%) 98 11/06/16 09:00 CBCD WBC 10.0 K/mm3 (4.0-10.0) 11/06/16 05:38 RBC 3.70 M/mm3 (4.00-5.60) L 11/06/16 05:38 Hgb 12.0 GM/dL (11.7-16.9) D 11/06/16 05:38 Hct 35.4 % (35.4-49) 11/06/16 05:38 MCV 95.7 fl (80-96) 11/06/16 05:38 MCHC 33.8 g/dl (32.0-35.9) 11/06/16 05:38 RDW 16.5 % (11.9-15.9) H 11/06/16 05:38 Plt Count 123 K/MM3 (134-434) L 11/06/16 05:38 MPV 9.4 fl (7.5-11.1) 11/06/16 05:38 CMP Sodium 142 mmol/L (136-145) 11/06/16 05:38 Potassium 4.5 mmol/L (3.5-5.1) 11/06/16 05:38 Chloride 110 mmol/L (98-107) H 11/06/16 05:38 Carbon Dioxide 20 mmol/L (21-32) L 11/06/16 05:38 Anion Gap 12 (8-16) 11/06/16 05:38 BUN 60 mg/dL (7-18) H 11/06/16 05:38 Creatinine 1.5 mg/dL (0.7-1.3) H 11/06/16 05:38 Creat Clearance w eGFR 37.17 (>60) 11/05/16 01:50 Random Glucose 351 mg/dL (74-106) H* D 11/06/16 12:35 Calcium 8.5 mg/dL (8.5-10.1) 11/06/16 05:38 Total Bilirubin 0.8 mg/dL (0.2-1.0) 11/05/16 01:50 AST 13 U/L (15-37) L 11/05/16 01:50 ALT 25 U/L (12-78) 11/05/16 01:50 Alkaline Phosphatase 112 U/L (45-117) D 11/05/16 01:50 Total Protein 6.6 g/dl (6.4-8.2) 11/05/16 01:50 Albumin 3.3 g/dl (3.4-5.0) L 11/05/16 01:50 CARDIAC ENZYMES Creatine Kinase 99 IU/L (39-308) 11/05/16 01:50 Troponin I 0.03 ng/ml (0.00-0.05) D 11/05/16 01:50 Current Medications Generic Name Dose Route Start Last Admin Trade Name Freq PRN Reason Stop Dose Admin Acetaminophen 650 mg 11/05/16 05:32 Tylenol - PO Q4H PRN FEVER OR PAIN Aspirin 81 mg 11/05/16 10:00 11/06/16 10:04 Ecotrin - PO 81 mg DAILY MARY Administration Atorvastatin Calcium 80 mg 11/05/16 22:00 11/05/16 22:30 Lipitor - PO 80 mg HS MARY Administration Carvedilol 25 mg 11/05/16 10:00 11/06/16 10:04 Coreg - PO 25 mg BID MARY Administration Cholecalciferol 1,000 unit 11/05/16 10:00 11/06/16 10:04 Vitamin D3 - PO 1,000 unit DAILY MARY Administration Clopidogrel Bisulfate 75 mg 11/05/16 10:00 11/06/16 10:05 Plavix - PO 75 mg DAILY MARY Administration Docusate Sodium 100 mg 11/05/16 06:00 11/06/16 14:43 Colace - PO 100 mg TID MARY Administration Furosemide 20 mg 11/06/16 10:00 11/06/16 10:53 Lasix - PO 20 mg DAILY MARY Administration Gabapentin 600 mg 11/05/16 10:00 11/06/16 10:04 Neurontin - PO 600 mg BID MARY Administration Heparin Sodium (Porcine) 5,000 unit 11/05/16 10:00 11/06/16 17:15 Heparin - SQ 5,000 unit Q8H-IV MARY Administration Hydralazine HCl 50 mg 11/05/16 06:00 11/06/16 14:43 Apresoline - PO 50 mg TID MARY Administration Azithromycin 250 mls @ 250 mls/hr 11/06/16 10:00 11/06/16 10:06 Zithromax 500mg Ivpb (Pre-Docked) IVPB 250 mls/hr DAILY MARY Administration Ceftriaxone Sodium 50 mls @ 100 mls/hr 11/06/16 10:00 11/06/16 10:04 Rocephin 1gm Ivpb (Pre-Docked) IVPB 100 mls/hr DAILY MARY Administration Insulin Aspart 1 vial 11/05/16 07:00 11/06/16 17:15 Novolog Vial Sliding Scale - SQ Not Given ACHS MARY Protocol Multivitamins/Minerals 1 each 11/05/16 10:00 11/06/16 10:04 Theragran-M PO 1 each DAILY MARY Administration Home Medications Medication Instructions Recorded Cholecalciferol (Vitamin D3) 1,000 unit PO DAILY 04/03/14 [Vitamin D3] Aspirin [Ecotrin] 81 mg PO DAILY 03/26/16 Vitamin B Complex 1 each PO DAILY 03/26/16 Docusate Sodium 100 mg PO TID capsule 07/18/16 Multivit-Min/FA/Lycopen/Lutein 1 each PO DAILY tablet 07/18/16 [Centrum Silver Tablet] Carvedilol 25 mg PO BID tablet 10/04/16 Glyburide 5 mg PO BID tablet 10/04/16 Hydralazine HCl 50 mg PO TID tablet 10/29/16 Isosorbide Dinitrate 20 mg PO TID 10/29/16 Sacubitril/Valsartan [Entresto 24 1 each PO BID tablet 10/29/16 Mg-26 Mg Tablet] Acetaminophen [Tylenol] 650 mg PO QID PRN 11/05/16 Laboratory Results - last 24 hr 06/04/16 06/04/16 06/04/16 08:25 12:30 14:30 Sodium Potassium Chloride Carbon Dioxide Anion Gap BUN Creatinine POC Glucometer Random Glucose Calcium LD Total 185 Cancelled Total Protein 7.1 Albumin 2.9 L Pleural Fluid Source Pleural Pleural Color Yellow Pleural Appearance Cloudy Pleural WBC 708 Pleural RBC 8702 Pleural Neutrophils 1 Pleural Lymphocytes 55 Pleural Monocytes 9 Pleural Macrophages 32 Pleural Mesothelial 3 Pleural Chloride 106 Pleural Total Protein 3.286 Pleural Albumin 2 Pleural LDH 87 Pleural Glucose 193.124 Pleural Amylase 22.836 Pleural Cholesterol < 50 Pleural Triglycerides 13 06/04/16 06/05/16 06/05/16 16:42 02:54 05:57 Sodium Potassium Chloride Carbon Dioxide Anion Gap BUN Creatinine POC Glucometer 184 163 183 Random Glucose Calcium LD Total Total Protein Albumin Pleural Fluid Source Pleural Color Pleural Appearance Pleural WBC Pleural RBC Pleural Neutrophils Pleural Lymphocytes Pleural Monocytes Pleural Macrophages Pleural Mesothelial Pleural Chloride Pleural Total Protein Pleural Albumin Pleural LDH Pleural Glucose Pleural Amylase Pleural Cholesterol Pleural Triglycerides 06/05/16 06/05/16 08:00 11:29 Sodium 139 Potassium 4.5 Chloride 104 Carbon Dioxide 28 Anion Gap 7 L BUN 38 H Creatinine 1.7 H POC Glucometer 196 Random Glucose 172 H Calcium 8.9 LD Total Total Protein Albumin Pleural Fluid Source Pleural Color Pleural Appearance Pleural WBC Pleural RBC Pleural Neutrophils Pleural Lymphocytes Pleural Monocytes Pleural Macrophages Pleural Mesothelial Pleural Chloride Pleural Total Protein Pleural Albumin Pleural LDH Pleural Glucose Pleural Amylase Pleural Cholesterol Pleural Triglycerides PE: per resident's note ASSESSMENT AND PLAN: 71 y/o gentleman with h/o HTN, chronic Systolic heart failure , HLP, DM , CAD s /p stenting , and recnet admissions for SOB, s/p bronch(mucus plugging), and R paracentesis who presented with SOB and cough . #s/p sepsis secondary to right middle lobe pneumonia: On Iv antibiotic continue #acute hypoxic respiratory failure due to pneumonia improving, on NC keep O2> 92%, check o2 sat pre & post oxygen #Hx of CHf with mildly reduced ejection fraction: bnp elevated; no peripheral edema; mild crackles -continue home lasix 20mg po daily , last echo 06/18 EF 51% # Acute on chronic kidney failure ; base line cr 1.1. ordered US , nephro consult #HTN:Hydralazine 50mg , coreg and Htz # DM: hold glyburide , cont insulin levemir # CAD , s/p recent stenting will continue Plavix and aspirin, Plavix can't be stopped at this time due to having a recent stent. Therefore can't do thoracocentesis, has to wait for now. WIll be decided by . LAD with flat TW in V6 ( improved from prior EKG) cont ASa and plavix ,cont BB #normocytic anemia: baseline wnl DVT px: Heparin
[2016-11-06] MEDS: ATORVASTATIN CA 80 MG TABLET (FP) PO SCH (21:43)
[2016-11-07] MEDS: HEPARIN NA (PORCINE) 5,000 UNITS/ML 1ML VIAL SQ SCH ×2 (01:51→09:58)
[2016-11-07 06:06] LABS: SERUM IRON 40 ug/dL (38-169); TOTAL IRON BINDING CAPACITY 261 ug/dL (250-450); UIBC 221 ug/dL (111-343)
[2016-11-07] MEDS: hydrALAZINE HCL 50 MG TABLET (FP) PO SCH ×2 (06:50→14:18)
[2016-11-07] MEDS: DOCUSATE SODIUM 100 MG CAPSULE (FP) PO SCH ×2 (06:50→14:18)
[2016-11-07] MEDS: INSULIN SLIDING SCALE (NOVOLOG) 1 VIAL SQ SCH ×2 (06:51→12:00)
--- NOTE | 2016-11-07 07:18 | CON.CARD ---
Consult Consult Specialty:: Cardiology Referred by:: Dr. Daniel Hale Reason for Consultation:: CHF, CAD - History of Present Illness Chief Complaint: Productive cough, dypsnea History of Present Illness: 71 yo male with DM, HTN, hyperlipidemia, CHF, CAD, prior anterolateral [place] 1994 w/ PCI of LAD & ramus, PCI of LAD 05/1996 (with 100% occluded ramus and patent RCA), and rotoblator & PCI w/ Xience stent prox LAD & prox/mid Cfx . He was admitted on 11/05/16 with productive cough & shortness of breath x 1 week with reported low grade fever and malaise. Chest CT demonstrated right middle lobe pneumonia and right pleural effusion (but decreased in size compared to prior study in 05/2016). Cardiology consult was requested due to patient's known CAD/CHF and right pleural effusion management. Patient currently reports significant clinical improvement since admission and is requesting to go home. - History Source History Provided By: Patient Limitations to Obtaining History: No Limitations - Past Medical History Cardio/Vascular: Yes: CAD (prior anterolateral [place] 03/1995 w/ PCI of LAD & ramus , PCI of LAD 05/1996 (with 100% occluded ramus and patent RCA), rotoblator & PCI w/ Xience stent prox LAD & prox/mid Cfx 07/30/16), CHF, Hyperlipdemia, [place] ( anterolateral [place] 1994) Pulmonary: Yes: Pneumonia (03/2016), Other (Chronic right pleural effusion ) Gastrointestinal: Yes: GERD, Irritable Bowel Disease Renal/: Yes: BPH, Renal Calculi Musculoskeletal: Yes: Osteoarthritis Rheumatology: Yes: Gout Endocrine: Yes: Diabetes Mellitus, Other (Hypogonadism, nodular goiter) - Past Surgical History Past Surgical History: Yes: Cataract Removal (bilateral), Hernia Repair ( umbillical) - Alcohol/Substance Use Hx Alcohol Use: No History of Substance Use: reports: None - Smoking History Smoking history: Former smoker Have you smoked in the past 12 months: No Aproximately how many cigarettes per day: 0 If you are a former smoker, when did you quit?: 35 YEARS AGO - Social History ADL: Independent History of Recent Travel: No Home Medications - Allergies Allergies/Adverse Reactions: Allergies Allergy/AdvReac Type Severity Reaction Status Date / Time pioglitazone HCl [From Actos] AdvReac Severe CHF Verified 11/05/16 01:10 - Home Medications Home Medications: Ambulatory Orders Cholecalciferol (Vitamin D3) [Vitamin D3] 1,000 unit PO DAILY 04/03/14 Aspirin [Ecotrin] 81 mg PO DAILY 03/26/16 Vitamin B Complex 1 each PO DAILY 03/26/16 Docusate Sodium 100 mg PO TID capsule 07/18/16 Multivit-Min/FA/Lycopen/Lutein [Centrum Silver Tablet] 1 each PO DAILY tablet 07/18/16 Carvedilol 25 mg PO BID tablet 10/04/16 Glyburide 5 mg PO BID tablet 10/04/16 Hydralazine HCl 50 mg PO TID tablet 10/29/16 Isosorbide Dinitrate 20 mg PO TID 10/29/16 Sacubitril/Valsartan [Entresto 24 Mg-26 Mg Tablet] 1 each PO BID tablet Acetaminophen [Tylenol] 650 mg PO QID PRN 11/05/16 Family Disease History - Family Disease History Family Disease History: Heart Disease: Mother (CHF) Review of Systems - Review of Systems Constitutional: reports: No Symptoms Eyes: reports: No Symptoms HENT: reports: No Symptoms Neck: reports: No Symptoms Cardiovascular: reports: Shortness of Breath (improved). denies: Chest Pain, Edema, Palpitations Respiratory: reports: SOB (improved) Gastrointestinal: reports: No Symptoms Genitourinary: reports: No Symptoms Musculoskeletal: reports: No Symptoms Neurological: reports: No Symptoms Endocrine: reports: No Symptoms Vital Signs: Vital Signs Temperature 98.2 F 11/07/16 05:00 Pulse Rate 73 11/07/16 05:00 Respiratory Rate 18 11/07/16 05:00 Blood Pressure 113/55 11/07/16 05:00 O2 Sat by Pulse Oximetry (%) 97 11/06/16 21:00 Constitutional: Yes: Well Nourished, No Distress Eyes: Yes: Conjunctiva Clear, EOM Intact HENT: Yes: Atraumatic, Normocephalic Respiratory: Yes: Diminished (at right right base otherwise clear) Gastrointestinal: Yes: Normal Bowel Sounds, Soft. No: Tenderness Cardiovascular: Yes: Regular Rate and Rhythm JVD: No Carotid Bruit: No PMI: Non-Displaced Murmur: No: Systolic Murmur Edema: No Peripheral Pulses WNL: No Neurological: Yes: Alert, Oriented, Cran Nerves II-XII Intact ...Motor Strength: WNL Psychiatric: Yes: WNL - Other Data Labs, Other Data: INR, PTT INR 1.15 (0.82-1.09) H 11/05/16 01:50 Echo: Report Reviewed (11/05/16 Echo: Normal LV size and low normal systolic function. Mild MR/TR. Mild LAE. Mod pulm HTN (PASP 50-60 mmHg).), Image Reviewed Imaging - Results Cat Scan: Report Reviewed (11/05/[address]:) Assessment/Plan 71 yo male with DM, HTN, hyperlipidemia, CHF, CAD, prior anterolateral [place] 1994 w/ PCI of LAD & ramus, PCI of LAD 05/1996 (with 100% occluded ramus and patent RCA), and rotoblator & PCI w/ Xience stent prox LAD & prox/mid Cfx . Admitted on 11/05/16 with pneumonia. Cardiology consult was requested due to patient's known CAD/CHF and right pleural effusion management. Echocardiogram 11/05/16 reported low normal systolic function, mild MR/TR, mod pulm HTN (PASP 50-60 mmHg). Patient currently reports significant clinical improvement since admission and is requesting to go home. RECS: Given patient's recent PCI on 07/30/16, would not discontinue his Plavix before 6 months (end of December) unless absolutely necessary. Given clinical improvement in his symptoms with current management of his pneumonia, would not pursue thoracentesis at this time for reason stated above. Patient appears to be clinically stable from cardiac standpoint. Continue current cardiac medical regimen. Patient should make follow-up appt in our office with Dr. Chacon in 2-3 weeks. Patient may be discharged from cardiac standpoint. Will see as needed. Please call with questions.
[2016-11-07 07:23] LABS: MCH 32.1 pg (25.7-33.7); MCHC 33.1 g/dl (32.0-35.9); MEAN PLT VOLUME 9.1 fl (7.5-11.1); PLATELET COUNT 130 K/MM3 (134-434); RDW 16.5 % (11.9-15.9); WHITE BLOOD COUNT 9.8 K/mm3 (4.0-10.0)
[2016-11-07 07:51] LABS: CALCIUM 8.8 mg/dL (8.5-10.1); COCKROFT - GAULT 54.99; CREATININE 1.3 mg/dL (0.7-1.3)
[2016-11-07] MEDS: CLOPIDOGREL BISULFATE 75 MG TABLET (FP) PO SCH (09:57)
[2016-11-07] MEDS: MULTIVITAMINS THER W-MINERALS COMBO TABLET (FP) PO SCH (09:57)
[2016-11-07] MEDS: CHOLECALCIFEROL (VITAMIN D3) 1,000 UNIT TABLET (FP) PO SCH (09:57)
[2016-11-07] MEDS: FUROSEMIDE 20 MG TABLET (FP) PO SCH (09:57)
[2016-11-07] MEDS: ASPIRIN COATED 81 MG TABLET.EC PO SCH (09:57)
[2016-11-07] MEDS: CARVEDILOL 25 MG TABLET (FP) PO SCH (09:57)
[2016-11-07] MEDS: CEFTRIAXONE 50 ML IVPB SCH (09:57)
[2016-11-07] MEDS: GABAPENTIN 300 MG CAPSULE (FP) PO SCH (09:58)
[2016-11-07] MEDS: AZITHROMYCIN IVPB 250 ML IVPB SCH (10:33)
--- NOTE | 2016-11-07 15:01 | PN ---
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 (short form) - Note 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: PULMONARY Still with cough productive of yellow sputum. No fevers or chills. Last Vital Signs Temp Pulse Resp BP Pulse Ox 97.8 F 79 18 117/47 95 11/07/16 09:00 11/07/16 09:00 11/07/16 09:00 11/07/16 09:00 11/07/16 09:00 Gen: NAD at rest Heart: RRR Lung: decreased breath sounds right base Abd: soft, nontender Ext: no edema CBC, BMP 11/07/16 05:35 11/07/16 05:35 Active Medications Acetaminophen (Tylenol -) 650 mg PO Q4H PRN PRN Reason: FEVER OR PAIN Aspirin (Ecotrin -) 81 mg PO DAILY [facility] Last Admin: 11/07/16 09:57 Dose: 81 mg Atorvastatin Calcium (Lipitor -) 80 mg PO HS [facility] Last Admin: 11/06/16 21:43 Dose: 80 mg Carvedilol (Coreg -) 25 mg PO BID [facility] Last Admin: 11/07/16 09:57 Dose: 25 mg Cholecalciferol (Vitamin D3 -) 1,000 unit PO DAILY [facility] Last Admin: 11/07/16 09:57 Dose: 1,000 unit Clopidogrel Bisulfate (Plavix -) 75 mg PO DAILY [facility] Last Admin: 11/07/16 09:57 Dose: 75 mg Docusate Sodium (Colace -) 100 mg PO TID [facility] Last Admin: 11/07/16 14:18 Dose: Not Given Furosemide (Lasix -) 20 mg PO DAILY [facility] Last Admin: 11/07/16 09:57 Dose: 20 mg Gabapentin (Neurontin -) 600 mg PO BID [facility] Last Admin: 11/07/16 09:58 Dose: 600 mg Heparin Sodium (Porcine) (Heparin -) 5,000 unit SQ Q8H-IV [facility] Last Admin: 11/07/16 09:58 Dose: 5,000 unit Hydralazine HCl (Apresoline -) 50 mg PO TID [facility] Last Admin: 11/07/16 14:18 Dose: 50 mg Azithromycin (Zithromax 500mg Ivpb (Pre-Docked)) 250 mls @ 250 mls/hr IVPB DAILY [facility] Last Admin: 11/07/16 10:33 Dose: 250 mls/hr Ceftriaxone Sodium (Rocephin 1gm Ivpb (Pre-Docked)) 50 mls @ 100 mls/hr IVPB DAILY MARY Last Admin: 11/07/16 09:57 Dose: 100 mls/hr Insulin Aspart (Novolog Vial Sliding Scale -) 1 vial SQ ACHS MARY PRN Reason: Protocol Last Admin: 11/07/16 12:00 Dose: 4 unit Multivitamins/Minerals (Theragran-M) 1 each PO DAILY MARY Last Admin: 11/07/16 09:57 Dose: 1 each A/P Pneumonia Atelectasis LV Systolic Dysfunction Pulmonary HTN CAD s/p PCI HTN DM - complete antibiotics - O2 as needed - inhaled bronchodilators - DVT prophylaxis - outpt f/u - can discharge home from pulmonary standpoint Problem List - Problems (1) Pneumonia Code(s): J18.9 - PNEUMONIA, UNSPECIFIED ORGANISM Qualifiers: Laterality: right Lung location: lower lobe of lung (2) CAD (coronary artery disease) Code(s): I25.10 - ATHSCL HEART DISEASE OF [place] CORONARY ARTERY W/O ANG PCTRS Qualifiers: Coronary Disease-Associated Artery/Lesion type: [place] artery [place] vs. transplanted heart: [place] heart Associated angina: with unspecified angina Qualified Code(s): I25.119 - Atherosclerotic heart disease of [place] coronary artery with unspecified angina pectoris (3) Chronic left systolic heart failure Code(s): I50.22 - CHRONIC SYSTOLIC (CONGESTIVE) HEART FAILURE (4) Pulmonary hypertension Code(s): I27.2 - OTHER SECONDARY PULMONARY HYPERTENSION
[2016-11-07 15:18] VITALS: BP 122/53; PULSE 76; TEMP 97.6
--- NOTE | 2016-11-07 15:22 | CONSULT ---
Consultation: REQUESTING PROVIDER: CONSULT REQUEST: We have been asked to medically evaluate this patient for ( nephro). HISTORY OF PRESENT ILLNESS: Patient was admitted for chf excerbration, pneumonia and SPIKE. Patient creatnine has improved on lasix Patient states that his swelling in legs has decreased. Still has cough and is producing a yellow and white color sputum. Denies fever and chills. Patient states that he feels better and want to go and play golf REVIEW OF SYSTEMS: CONSTITUTIONAL: Absent: fever, chills, diaphoresis, CARDIOVASCULAR: Absent: chest pain, syncope, palpitations, RESPIRATORY: Absent: cough, shortness of breath, GASTROINTESTINAL: Absent: abdominal pain, abdominal distension, nausea, vomiting, d GENITOURINARY: Absent: dysuria, frequency, urgency, hesitancy, hematuria, flank pain, genital pain PHYSICAL EXAMINATION Vital Signs - 24 hr 11/06/16 11/06/16 11/07/16 18:00 21:00 01:00 Temperature 98.0 F 97.7 F 99 F Pulse Rate 86 88 86 Respiratory 18 18 18 Rate Blood Pressure 126/60 145/69 115/58 O2 Sat by Pulse 97 Oximetry (%) 11/07/16 11/07/16 05:00 09:00 Temperature 98.2 F 97.8 F Pulse Rate 73 79 Respiratory 18 18 Rate Blood Pressure 113/55 117/47 O2 Sat by Pulse 95 Oximetry (%) GENERAL: Awake, alert, and fully oriented, in no acute distress. HEAD: Normal with no signs of trauma.. NECK: Normal range of motion LUNGS: Breath sounds equal, crackels present on right side. HEART: s1s2 normal ABDOMEN: Soft, nontender, not distended, normoactive bowel sounds, no guarding, no rebound, no masses. MUSCULOSKELETAL: Normal range of motion at all joints. No bony deformities or tenderness. No CVA tenderness. LOWER EXTREMITIES: warm, well-perfused. No calf tenderness. No peripheral edema. Laboratory Results - last 24 hr 11/06/16 11/06/16 11/06/16 12:28 17:14 21:33 WBC RBC Hgb Hct MCV MCHC RDW Plt Count MPV Sodium Potassium Chloride Carbon Dioxide Anion Gap BUN Creatinine POC Glucometer 407 132 325 Random Glucose Calcium 11/06/16 11/07/16 11/07/16 21:34 05:35 05:35 WBC 9.8 RBC 3.75 L Hgb 12.0 Hct 36.4 MCV 97.0 H MCHC 33.1 RDW 16.5 H Plt Count 130 L MPV 9.1 Sodium 144 Potassium 4.3 Chloride 113 H Carbon Dioxide 21 Anion Gap 10 BUN 63 H Creatinine 1.3 POC Glucometer 209 Random Glucose 127 H D Calcium 8.8 11/07/16 11/07/16 05:46 11:35 WBC RBC Hgb Hct MCV MCHC RDW Plt Count MPV Sodium Potassium Chloride Carbon Dioxide Anion Gap BUN Creatinine POC Glucometer 109 213 Random Glucose Calcium Active Medications Generic Name Dose Route Start Last Admin Trade Name Freq PRN Reason Stop Dose Admin Acetaminophen 650 mg 11/05/16 05:32 Tylenol - PO Q4H PRN FEVER OR PAIN Aspirin 81 mg 11/05/16 10:00 11/07/16 09:57 Ecotrin - PO 81 mg DAILY MARY Administration Atorvastatin Calcium 80 mg 11/05/16 22:00 11/06/16 21:43 Lipitor - PO 80 mg HS MARY Administration Carvedilol 25 mg 11/05/16 10:00 11/07/16 09:57 Coreg - PO 25 mg BID MARY Administration Cholecalciferol 1,000 unit 11/05/16 10:00 11/07/16 09:57 Vitamin D3 - PO 1,000 unit DAILY MARY Administration Clopidogrel Bisulfate 75 mg 11/05/16 10:00 11/07/16 09:57 Plavix - PO 75 mg DAILY MARY Administration Docusate Sodium 100 mg 11/05/16 06:00 11/07/16 14:18 Colace - PO Not Given TID MARY Furosemide 20 mg 11/06/16 10:00 11/07/16 09:57 Lasix - PO 20 mg DAILY MARY Administration Gabapentin 600 mg 11/05/16 10:00 11/07/16 09:58 Neurontin - PO 600 mg BID MARY Administration Heparin Sodium (Porcine) 5,000 unit 11/05/16 10:00 11/07/16 09:58 Heparin - SQ 5,000 unit Q8H-IV MARY Administration Hydralazine HCl 50 mg 11/05/16 06:00 11/07/16 14:18 Apresoline - PO 50 mg TID MARY Administration Azithromycin 250 mls @ 250 mls/hr 11/06/16 10:00 11/07/16 10:33 Zithromax 500mg Ivpb (Pre-Docked) IVPB 250 mls/hr DAILY MARY Administration Ceftriaxone Sodium 50 mls @ 100 mls/hr 11/06/16 10:00 11/07/16 09:57 Rocephin 1gm Ivpb (Pre-Docked) IVPB 100 mls/hr DAILY MARY Administration Insulin Aspart 1 vial 11/05/16 07:00 11/07/16 12:00 Novolog Vial Sliding Scale - SQ 4 unit ACHS MARY Administration Protocol Multivitamins/Minerals 1 each 11/05/16 10:00 11/07/16 09:57 Theragran-M PO 1 each DAILY MARY Administration Microbiology Urine Test Results Urine Color Ltyellow 11/05/16 03:09 Urine Appearance Clear 11/05/16 03:09 Urine pH 5.0 (5.0-8.0) 11/05/16 03:09 Ur Specific [place] 1.015 (1.005-1.025) 11/05/16 03:09 Urine Protein 2+ (NEGATIVE) H 11/05/16 03:09 Urine Glucose (UA) Negative (NEGATIVE) 11/05/16 03:09 Urine Ketones Negative (NEGATIVE) 11/05/16 03:09 Urine Blood Negative (NEGATIVE) 11/05/16 03:09 Urine Nitrite Negative (NEGATIVE) 11/05/16 03:09 Urine Bilirubin Negative (NEGATIVE) 11/05/16 03:09 Ur Leukocyte Esterase Negative (NEGATIVE) 11/05/16 03:09 Urine RBC 4 /hpf (0-3) 11/05/16 03:09 Urine WBC 1 /hpf (3-5) 11/05/16 03:09 Urine Bacteria Rare /hpf (NONE SEEN) 11/05/16 03:09 CBCD WBC 9.8 K/mm3 (4.0-10.0) 11/07/16 05:35 RBC 3.75 M/mm3 (4.00-5.60) L 11/07/16 05:35 Hgb 12.0 GM/dL (11.7-16.9) 11/07/16 05:35 Hct 36.4 % (35.4-49) 11/07/16 05:35 MCV 97.0 fl (80-96) H 11/07/16 05:35 MCHC 33.1 g/dl (32.0-35.9) 11/07/16 05:35 RDW 16.5 % (11.9-15.9) H 11/07/16 05:35 Plt Count 130 K/MM3 (134-434) L 11/07/16 05:35 MPV 9.1 fl (7.5-11.1) 11/07/16 05:35 CMP Sodium 144 mmol/L (136-145) 11/07/16 05:35 Potassium 4.3 mmol/L (3.5-5.1) 11/07/16 05:35 Chloride 113 mmol/L (98-107) H 11/07/16 05:35 Carbon Dioxide 21 mmol/L (21-32) 11/07/16 05:35 Anion Gap 10 (8-16) 11/07/16 05:35 BUN 63 mg/dL (7-18) H 11/07/16 05:35 Creatinine 1.3 mg/dL (0.7-1.3) 11/07/16 05:35 Creat Clearance w eGFR 37.17 (>60) 11/05/16 01:50 Random Glucose 127 mg/dL (74-106) H D 11/07/16 05:35 Calcium 8.8 mg/dL (8.5-10.1) 11/07/16 05:35 Total Bilirubin 0.8 mg/dL (0.2-1.0) 11/05/16 01:50 AST 13 U/L (15-37) L 11/05/16 01:50 ALT 25 U/L (12-78) 11/05/16 01:50 Alkaline Phosphatase 112 U/L (45-117) D 11/05/16 01:50 Total Protein 6.6 g/dl (6.4-8.2) 11/05/16 01:50 Albumin 3.3 g/dl (3.4-5.0) L 11/05/16 01:50 CARDIAC ENZYMES Creatine Kinase 99 IU/L (39-308) 11/05/16 01:50 Troponin I 0.03 ng/ml (0.00-0.05) D 11/05/16 01:50 11/05/16 16:17 Sputum - Expectorated Gram Stain - Final 11/05/16 16:17 Sputum - Expectorated Sputum Culture - Preliminary Presumptive Mrsa (Pbp2a Pos) 11/05/16 01:50 Blood - Peripheral Venous Blood Culture - Preliminary NO GROWTH OBTAINED AFTER 48 HOURS, INCUBATION TO CONTINUE FOR 3 DAYS. 11/05/16 01:50 Blood - Peripheral Venous Blood Culture - Preliminary NO GROWTH OBTAINED AFTER 48 HOURS, INCUBATION TO CONTINUE FOR 3 DAYS. 11/05/16 03:09 Urine - Urine Clean Catch Urine Culture - Final NO GROWTH OBTAINED 11/05/16 11:00 Urine For Antigen Detection Legionella Antigen - Final 11/05/16 11:00 Urine For Antigen Detection Streptococcus pneumoniae Antigen (M - Final ASSESSMENT/PLAN: (1) CHF (congestive heart failure), NYHA class III (2) Pleural effusion (3) Pneumonia (4) Acute kidney failure (5) Diabetes (6) CAD (coronary artery disease) (7) HTN (hypertension) (8) Hyperlipidemia Plan SPIKE could be due to cradiorenal syndrome. FeNa 0.3 Creatnine has improved on lasix. Continue with lasix. Avoid nephrotoxic drugs. Work up for protein urea can be done as an outpatient. Monitor creatnine. Antibiotics according to primary and pulmonary team. Visit type - Emergency Visit Emergency Visit: Yes ED Registration Date: 11/05/16 Care time: The patient presented to the Emergency Department on the above date and was hospitalized for further evaluation of their emergent condition. - New Patient This patient is new to me today: Yes Date on this admission: 11/07/16 - Critical Care Critical Care patient: No
--- NOTE | 2016-11-07 15:54 | CONSULT ---
Consult Consult Specialty:: Nephrology Reason for Consultation:: azotemia - History of Present Illness Chief Complaint: shortness of breath History of Present Illness: Pt is a 71 year old male with pmhx of CHF, CAD, HTN, and Hyperlipidemia who presents to the ER with cough and shortness of breath. He says it began about one week ago. He denies chest pain. He was found to have elevated creatinine and we were called to evaluate him. He denies dysuria or hematuria. He denies nsaid use. He is on diuretics at home. He does not remember all of his meds. He was given lasix and his renal function has begun to improve. - History Source History Provided By: Patient, Medical Record - Past Medical History Cardio/Vascular: Yes: CAD (prior anterolateral OH 03/1995 w/ PCI of LAD & ramus , PCI of LAD 05/1996 (with 100% occluded ramus and patent RCA), rotoblator & PCI w/ Xience stent prox LAD & prox/mid Cfx 07/30/16), CHF, Hyperlipdemia, OH ( anterolateral OH 1994) Pulmonary: Yes: Pneumonia (03/2016), Other (Chronic right pleural effusion ) Gastrointestinal: Yes: GERD, Irritable Bowel Disease Renal/: Yes: Renal Inusuff, BPH, Renal Calculi Musculoskeletal: Yes: Osteoarthritis Rheumatology: Yes: Gout Endocrine: Yes: Diabetes Mellitus, Other (Hypogonadism, nodular goiter) - Past Surgical History Past Surgical History: Yes: Cataract Removal (bilateral), Hernia Repair ( umbillical) - Alcohol/Substance Use Hx Alcohol Use: No History of Substance Use: reports: None - Smoking History Smoking history: Former smoker Have you smoked in the past 12 months: No Aproximately how many cigarettes per day: 0 If you are a former smoker, when did you quit?: 35 YEARS AGO - Social History ADL: Independent History of Recent Travel: No Home Medications - Allergies Allergies/Adverse Reactions: Allergies Allergy/AdvReac Type Severity Reaction Status Date / Time pioglitazone HCl [From Actos] AdvReac Severe CHF Verified 11/05/16 01:10 - Home Medications Home Medications: Ambulatory Orders RX: Cholecalciferol (Vitamin D3) [Vitamin D3] 1,000 unit PO DAILY 04/03/14 RX: Aspirin [Ecotrin] 81 mg PO DAILY 03/26/16 RX: Vitamin B Complex 1 each PO DAILY 03/26/16 Multivit-Min/FA/Lycopen/Lutein [Centrum Silver Tablet] 1 each PO DAILY tablet 07/18/16 RX: Docusate Sodium 100 mg PO TID capsule 07/18/16 RX: Carvedilol 25 mg PO BID tablet 10/04/16 RX: Glyburide 5 mg PO BID tablet 10/04/16 RX: Hydralazine HCl 50 mg PO TID tablet 10/29/16 RX: Isosorbide Dinitrate 20 mg PO TID 10/29/16 Sacubitril/Valsartan [Entresto 24 Mg-26 Mg Tablet] 1 each PO BID tablet Acetaminophen [Tylenol] 650 mg PO QID PRN 11/05/16 Family Disease History - Family Disease History Family Disease History: Heart Disease: Mother (CHF) Review of Systems - Review of Systems Constitutional: reports: No Symptoms Eyes: reports: No Symptoms HENT: reports: No Symptoms Neck: reports: No Symptoms Cardiovascular: reports: Edema, Shortness of Breath Respiratory: reports: Cough, SOB, SOB on Exertion Genitourinary: reports: No Symptoms Musculoskeletal: reports: No Symptoms Integumentary: reports: No Symptoms Neurological: reports: No Symptoms Endocrine: reports: No Symptoms Hematology/Lymphatic: reports: No Symptoms Psychiatric: reports: No Symptoms Physical Exam Vital Signs: Vital Signs Temperature 97.6 F 11/07/16 14:17 Pulse Rate 76 11/07/16 14:17 Respiratory Rate 16 11/07/16 14:17 Blood Pressure 122/53 11/07/16 14:17 O2 Sat by Pulse Oximetry (%) 95 11/07/16 09:00 Constitutional: Yes: Calm Eyes: Yes: Conjunctiva Clear HENT: Yes: Atraumatic Neck: Yes: Supple Cardiovascular: Yes: S1, S2 Respiratory: Yes: Other (right lower lobe crackles) Gastrointestinal: Yes: Soft Renal/: Yes: WNL Musculoskeletal: Yes: WNL Edema: No Neurological: Yes: Oriented Psychiatric: Yes: Oriented Labs: CBC, BMP 11/07/16 05:35 11/07/16 05:35 Laboratory Tests 09/14/14 03/08/15 08/20/15 13:00 16:45 06:15 WBC Hgb INR PTT ([place] FS) Sodium Potassium Chloride Carbon Dioxide Anion Gap BUN Creatinine 1.6 H 1.5 H 1.4 H Urine Protein Urine Blood 08/21/15 08/22/15 08/23/15 18:08 07:00 08:00 WBC Hgb INR PTT ([place] FS) Sodium Potassium Chloride Carbon Dioxide Anion Gap BUN Creatinine 1.0 1.0 1.2 Urine Protein Urine Blood 08/24/15 01/02/16 06/01/16 08:00 17:40 01:20 WBC Hgb INR PTT ([place] FS) Sodium Potassium Chloride Carbon Dioxide Anion Gap BUN Creatinine 1.1 1.4 H D 1.1 Urine Protein Urine Blood 06/02/16 06/05/16 06/06/16 06:00 08:00 07:35 WBC Hgb INR PTT ([place] FS) Sodium Potassium Chloride Carbon Dioxide Anion Gap BUN Creatinine 1.3 D 1.7 H 1.5 H Urine Protein Urine Blood 10/29/16 11/05/16 11/05/16 16:00 01:50 01:50 WBC Hgb 10.9 L INR 1.15 H PTT ([place] FS) 34.0 Sodium Potassium Chloride Carbon Dioxide Anion Gap BUN Creatinine 1.3 Urine Protein Urine Blood 11/05/16 11/05/16 11/06/16 01:50 03:09 05:38 WBC Hgb 12.0 D INR PTT ([place] FS) Sodium Potassium Chloride Carbon Dioxide Anion Gap BUN Creatinine 1.8 H Urine Protein 2+ H Urine Blood Negative 11/06/16 11/07/16 11/07/16 05:38 05:35 05:35 WBC 9.8 Hgb 12.0 INR PTT ([place]in FS) Sodium 144 Potassium 4.3 Chloride 113 H Carbon Dioxide 21 Anion Gap 10 BUN 63 H Creatinine 1.5 H 1.3 Urine Protein Urine Blood Imaging - Results Cat Scan: Report Reviewed Other: Report Reviewed (echo reviewed) Problem List - Problems (1) Diabetes Code(s): E11.9 - TYPE 2 DIABETES MELLITUS WITHOUT COMPLICATIONS Qualifiers: Diabetes mellitus type: type 2 Diabetes mellitus complication status: with kidney complications Diabetes mellitus complication detail: with chronic kidney disease (2) Pleural effusion Code(s): J90 - PLEURAL EFFUSION, NOT ELSEWHERE CLASSIFIED (3) Shortness of breath Code(s): R06.02 - SHORTNESS OF BREATH (4) CAD (coronary artery disease) Code(s): I25.10 - ATHSCL HEART DISEASE OF [place] CORONARY ARTERY W/O ANG PCTRS Qualifiers: Coronary Disease-Associated Artery/Lesion type: [place] artery [place] vs. transplanted heart: [place] heart Associated angina: with unspecified angina Qualified Code(s): I25.119 - Atherosclerotic heart disease of [place] coronary artery with unspecified angina pectoris (5) CHF (congestive heart failure) Code(s): I50.9 - HEART FAILURE, UNSPECIFIED (6) CKD (chronic kidney disease) Code(s): N18.9 - CHRONIC KIDNEY DISEASE, UNSPECIFIED Assessment/Plan Current Medications Generic Name Dose Route Start Last Admin Trade Name Freq PRN Reason Stop Dose Admin Acetaminophen 650 mg 11/05/16 05:32 Tylenol - PO Q4H PRN FEVER OR PAIN Aspirin 81 mg 11/05/16 10:00 11/07/16 09:57 Ecotrin - PO 81 mg DAILY MARY Administration Atorvastatin Calcium 80 mg 11/05/16 22:00 11/06/16 21:43 Lipitor - PO 80 mg HS MARY Administration Carvedilol 25 mg 11/05/16 10:00 11/07/16 09:57 Coreg - PO 25 mg BID MARY Administration Cholecalciferol 1,000 unit 11/05/16 10:00 11/07/16 09:57 Vitamin D3 - PO 1,000 unit DAILY MARY Administration Clopidogrel Bisulfate 75 mg 11/05/16 10:00 11/07/16 09:57 Plavix - PO 75 mg DAILY MARY Administration Docusate Sodium 100 mg 11/05/16 06:00 11/07/16 14:18 Colace - PO Not Given TID MARY Furosemide 20 mg 11/06/16 10:00 11/07/16 09:57 Lasix - PO 20 mg DAILY MARY Administration Gabapentin 600 mg 11/05/16 10:00 11/07/16 09:58 Neurontin - PO 600 mg BID MARY Administration Heparin Sodium (Porcine) 5,000 unit 11/05/16 10:00 11/07/16 09:58 Heparin - SQ 5,000 unit Q8H-IV MARY Administration Hydralazine HCl 50 mg 11/05/16 06:00 11/07/16 14:18 Apresoline - PO 50 mg TID MARY Administration Azithromycin 250 mls @ 250 mls/hr 11/06/16 10:00 11/07/16 10:33 Zithromax 500mg Ivpb (Pre-Docked) IVPB 250 mls/hr DAILY MARY Administration Ceftriaxone Sodium 50 mls @ 100 mls/hr 11/06/16 10:00 11/07/16 09:57 Rocephin 1gm Ivpb (Pre-Docked) IVPB 100 mls/hr DAILY MARY Administration Insulin Aspart 1 vial 11/05/16 07:00 11/07/16 12:00 Novolog Vial Sliding Scale - SQ 4 unit ACHS MARY Administration Protocol Multivitamins/Minerals 1 each 11/05/16 10:00 11/07/16 09:57 Theragran-M PO 1 each DAILY MARY Administration Impression 1. CKD with acute component 2. CHF 3. CAD 4. DM 5. HTN 6. hyperlipidemia 7. BPH 8. pleural effusions 9. PNA Plan - renal function in improving - cont with lasix - pt does have 2 plus protein in urine, will order a urine protein to creatinine ratio to quantify proteinuria - check ultrasound of the kidneys and bladder - pt could have had cardiorenal disease - will need to workup proteinuria, this can be done as outpt - will follow Dr Menezes
--- NOTE | 2016-11-07 16:31 | DS ---
Physical Exam: SUBJECTIVE: Patient seen and examined at bedside. No new complaints. States he feels better. SOB improved. Denies CP,LAMA, palpitations, abd.pain, N/V. OBJECTIVE: Vital Signs Period Temp Pulse Resp BP Sys/Desai Pulse Ox Last 24 Hr 97.6 F-99 F 73-88 16-18 113-145/47-69 95-97 PHYSICAL EXAM GENERAL: AAOx3 , NAD HEAD: NC/AT EYES: PERRL, EOMI, sclera anicteric, conjunctiva clear. No ptosis. ENT: moist mucous membranes. NECK: No JVD, supple. LUNGS: improved BS of right lung field. Left side basilar rales. HEART: RRR, no M/G/R ABDOMEN: Soft, nt, nd, BS(+). EXTREMITIES: 2+ pulses, warm, well-perfused, no edema. NEUROLOGICAL: Cranial nerves II through XII grossly intact. Normal speech, gait not observed. PSYCH: Normal mood, normal affect. SKIN: Warm, dry, normal turgor, no rashes or lesions noted LABS Laboratory Results - last 24 hr 11/06/16 11/06/16 11/06/16 17:14 21:33 21:34 WBC RBC Hgb Hct MCV MCHC RDW Plt Count MPV Sodium Potassium Chloride Carbon Dioxide Anion Gap BUN Creatinine POC Glucometer 132 325 209 Random Glucose Calcium 11/07/16 11/07/16 11/07/16 05:35 05:35 05:46 WBC 9.8 RBC 3.75 L Hgb 12.0 Hct 36.4 MCV 97.0 H MCHC 33.1 RDW 16.5 H Plt Count 130 L MPV 9.1 Sodium 144 Potassium 4.3 Chloride 113 H Carbon Dioxide 21 Anion Gap 10 BUN 63 H Creatinine 1.3 POC Glucometer 109 Random Glucose 127 H D Calcium 8.8 11/07/16 11:35 WBC RBC Hgb Hct MCV MCHC RDW Plt Count MPV Sodium Potassium Chloride Carbon Dioxide Anion Gap BUN Creatinine POC Glucometer 213 Random Glucose Calcium HOSPITAL COURSE: 71 y/o gentleman with h/o HTN, chronic Systolic heart failure , HLP, DM , CAD s /p stenting , and recnet admissions for SOB, s/p bronch(mucus plugging), and R paracentesis who presented with SOB and cough admitted for sepsis secondary to PNA. CT chest showed right pleural effusion with lower lobe atelectasis with additional area of consolidation/atelectasis within R middle lobe. Patient was treated with IV antibiotics and given oral Ceftin 500mg po bid for 7 more days. Will continue home o2 as needed. Signs of CHF exacerbation improved clinically with administration of IV Lasix. SPIKE responded to diuresis and returned to baseline advised to follow up with nephrology as outpatient. Pleural effusion noted and seen by clearance rep. No thoracentisis done will follow up with pulmonary in one week. Diabetes managed with ADA diet, novolog sliding scale, and levamir. Continue ASA and plavix for his CAD. HTN and HLD managed with continuation of home meds.Follow up with cardiology in 2-3 weeks. Follow up with primary in one week. Patient stable for discharge. Date of Admission:11/05/16 Date of Discharge: 11/07/16 Minutes to complete discharge: 42 <Daniel Hale - Last Filed: 11/14/16 01:00> Physical Exam: SUBJECTIVE: Patient seen and examined OBJECTIVE: PHYSICAL EXAM GENERAL: The patient is awake, alert, and fully oriented, in no acute distress. HEAD: Normal with no signs of trauma. EYES: PERRL, extraocular movements intact, sclera anicteric, conjunctiva clear. ENT: Ears normal, nares patent, oropharynx clear without exudates, moist mucous membranes. NECK: Trachea midline, full range of motion, supple. LUNGS: Breath sounds equal, clear to auscultation bilaterally, no wheezes, no crackles, no accessory muscle use. HEART: Regular rate and rhythm, S1, S2 without murmur, rub or gallop. ABDOMEN: Soft, nontender, nondistended, normoactive bowel sounds, no guarding, no rebound, no hepatosplenomegaly, no masses. EXTREMITIES: 2+ pulses, warm, well-perfused, no edema. NEUROLOGICAL: Cranial nerves II through XII grossly intact. Normal speech, gait not observed. PSYCH: Normal mood, normal affect. SKIN: Warm, dry, normal turgor, no rashes or lesions noted. LABS HOSPITAL COURSE: Date of Admission:11/05/16 Date of Discharge: 11/17/16 NO thoracocentesis was done since patient was on Plavix and Asa for having a recent stent. <Jen Herrera - Last Filed: 11/17/16 05:16> Discharge Summary Reason For Visit: PNEUMONIA HYPOXIA Current Active Problems Acute kidney failure (Acute) Asymptomatic microscopic hematuria (Acute) CKD (chronic kidney disease) (Acute) Chronic left systolic heart failure (Acute) Diabetes (Acute) Hyperbilirubinemia (Acute) Microcytic anemia (Acute) Pleural effusion (Acute) Pneumonia (Acute) Pulmonary hypertension (Acute) Shortness of breath (Acute) CAD (coronary artery disease) (Chronic) HTN (hypertension) (Chronic) Hyperlipidemia (Chronic) Insulin dependent diabetes mellitus (Chronic) - Home Medications Comprehensive Discharge Medication List: Ambulatory Orders Cholecalciferol (Vitamin D3) [Vitamin D3] 1,000 unit PO DAILY 04/03/14 Aspirin [Ecotrin] 81 mg PO DAILY 03/26/16 Vitamin B Complex 1 each PO DAILY 03/26/16 Docusate Sodium 100 mg PO TID capsule 07/18/16 Multivit-Min/FA/Lycopen/Lutein [Centrum Silver Tablet] 1 each PO DAILY tablet 07/18/16 Carvedilol 25 mg PO BID tablet 10/04/16 Glyburide 5 mg PO BID tablet 10/04/16 Hydralazine HCl 50 mg PO TID tablet 10/29/16 Isosorbide Dinitrate 20 mg PO TID 10/29/16 Sacubitril/Valsartan [Entresto 24 mg-26 mg Tablet] 1 each PO BID tablet Acetaminophen [Tylenol] 650 mg PO QID PRN 11/05/16 Cefuroxime Axetil [Ceftin -] 500 mg PO Q12H #14 tablet 11/07/16 <Daniel Hale - Last Filed: 11/14/16 01:00> Current Active Problems Hyperbilirubinemia (Acute) CAD (coronary artery disease) (Chronic) HTN (hypertension) (Chronic) Hyperlipidemia (Chronic) Insulin dependent diabetes mellitus (Chronic) - Home Medications Comprehensive Discharge Medication List: Ambulatory Orders Cholecalciferol (Vitamin D3) [Vitamin D3] 1,000 unit PO DAILY 04/03/14 Aspirin [Ecotrin] 81 mg PO DAILY 03/26/16 Vitamin B Complex 1 each PO DAILY 03/26/16 Docusate Sodium 100 mg PO TID capsule 07/18/16 Multivit-Min/FA/Lycopen/Lutein [Centrum Silver Tablet] 1 each PO DAILY tablet 07/18/16 Carvedilol 25 mg PO BID tablet 10/04/16 Glyburide 5 mg PO BID tablet 10/04/16 Hydralazine HCl 50 mg PO TID tablet 10/29/16 Sacubitril/Valsartan [Entresto 24 mg-26 mg Tablet] 1 each PO BID tablet Acetaminophen [Tylenol] 650 mg PO QID PRN 11/05/16 Cefuroxime Axetil [Ceftin -] 500 mg PO Q12H #14 tablet 11/07/16 Furosemide 40 mg PO DAILY tablet 11/12/16 Gabapentin 300 mg PO BID capsule 11/12/16 Isosorbide Dinitrate 20 mg PO TID tablet 11/12/16 <Jen Herrera - Last Filed: 11/17/16 05:16> Condition: Stable - Instructions Diet, Activity, Other Instructions: -Please continue your antibiotics Ceftin 500 twice a day for seven days. -Follow up with Dr. Trujillo in one week. -Follow up with Dr. Menezes Polishing Machine Operator Helper in one week. -Follow up with estate and trust tax principal in one week. -Low sodium diet. -Increase activity as tolerated. Referrals: Gurpreet Trujillo MD [Primary Care Provider] - Disposition: HOME Problem List - Problems (1) Shortness of breath (2) CHF (congestive heart failure), NYHA class III (3) Pleural effusion (4) Acute kidney failure (5) Diabetes (6) CAD (coronary artery disease) (7) HTN (hypertension) (8) Hyperlipidemia <Daniel Hale - Last Filed: 11/14/16 01:00> This patient is new to me today: No Emergency Visit: Yes ED Registration Date: 11/05/16 Care time: The patient presented to the Emergency Department on the above date and was hospitalized for further evaluation of their emergent condition. Critical Care patient: No - Discharge Referral Referred to [facility] Med [facility] No <Daniel Hale - Last Filed: 11/14/16 01:00>
--- NOTE | 2016-11-07 18:05 | PN ---
Teaching Attending Note Name of Resident: Daniel Hale ATTENDING PHYSICIAN STATEMENT I saw and evaluated the patient. I reviewed the resident's note and discussed the case with the resident. I agree with the resident's findings and plan as documented. SUBJECTIVE: Patient is feeling better, with no acute distress. OBJECTIVE: Vital Signs Temperature 97.6 F 11/07/16 14:17 Pulse Rate 76 11/07/16 14:17 Respiratory Rate 16 11/07/16 14:17 Blood Pressure 122/53 11/07/16 14:17 O2 Sat by Pulse Oximetry (%) 95 11/07/16 09:00 CBCD WBC 9.8 K/mm3 (4.0-10.0) 11/07/16 05:35 RBC 3.75 M/mm3 (4.00-5.60) L 11/07/16 05:35 Hgb 12.0 GM/dL (11.7-16.9) 11/07/16 05:35 Hct 36.4 % (35.4-49) 11/07/16 05:35 MCV 97.0 fl (80-96) H 11/07/16 05:35 MCHC 33.1 g/dl (32.0-35.9) 11/07/16 05:35 RDW 16.5 % (11.9-15.9) H 11/07/16 05:35 Plt Count 130 K/MM3 (134-434) L 11/07/16 05:35 MPV 9.1 fl (7.5-11.1) 11/07/16 05:35 CMP Sodium 144 mmol/L (136-145) 11/07/16 05:35 Potassium 4.3 mmol/L (3.5-5.1) 11/07/16 05:35 Chloride 113 mmol/L (98-107) H 11/07/16 05:35 Carbon Dioxide 21 mmol/L (21-32) 11/07/16 05:35 Anion Gap 10 (8-16) 11/07/16 05:35 BUN 63 mg/dL (7-18) H 11/07/16 05:35 Creatinine 1.3 mg/dL (0.7-1.3) 11/07/16 05:35 Creat Clearance w eGFR 37.17 (>60) 11/05/16 01:50 Random Glucose 127 mg/dL (74-106) H D 11/07/16 05:35 Calcium 8.8 mg/dL (8.5-10.1) 11/07/16 05:35 Total Bilirubin 0.8 mg/dL (0.2-1.0) 11/05/16 01:50 AST 13 U/L (15-37) L 11/05/16 01:50 ALT 25 U/L (12-78) 11/05/16 01:50 Alkaline Phosphatase 112 U/L (45-117) D 11/05/16 01:50 Total Protein 6.6 g/dl (6.4-8.2) 11/05/16 01:50 Albumin 3.3 g/dl (3.4-5.0) L 11/05/16 01:50 CARDIAC ENZYMES Creatine Kinase 99 IU/L (39-308) 11/05/16 01:50 Troponin I 0.03 ng/ml (0.00-0.05) D 11/05/16 01:50 Home Medications Medication Instructions Recorded Cholecalciferol (Vitamin D3) 1,000 unit PO DAILY 04/03/14 [Vitamin D3] Aspirin [Ecotrin] 81 mg PO DAILY 03/26/16 Vitamin B Complex 1 each PO DAILY 03/26/16 Docusate Sodium 100 mg PO TID capsule 07/18/16 Multivit-Min/FA/Lycopen/Lutein 1 each PO DAILY tablet 07/18/16 [Centrum Silver Tablet] Carvedilol 25 mg PO BID tablet 10/04/16 Glyburide 5 mg PO BID tablet 10/04/16 Hydralazine HCl 50 mg PO TID tablet 10/29/16 Isosorbide Dinitrate 20 mg PO TID 10/29/16 Sacubitril/Valsartan [Entresto 24 1 each PO BID tablet 10/29/16 mg-26 mg Tablet] Acetaminophen [Tylenol] 650 mg PO QID PRN 11/05/16 Cefuroxime Axetil [Ceftin -] 500 mg PO Q12H #14 tablet 11/07/16 Lungs: CTA BL, no wheeze/rales/rhonchi PE: per resident's note ASSESSMENT AND PLAN: 71 y/o gentleman with h/o HTN, chronic Systolic heart failure , HLP, DM , CAD s /p stenting , and recnet admissions for SOB, s/p bronch(mucus plugging), and R paracentesis who presented with SOB and cough . #s/p sepsis secondary to right middle lobe pneumonia: will discharge the patient home on po antibiotic Ceftin 500mg po bid for 7 more days #s/p acute hypoxic respiratory failure due to pneumonia improved getting discharged home on po meds., off oxygen now, patient has oxygen at home to use prn #Hx of CHf with mildly reduced ejection fraction: bnp elevated; no peripheral edema; mild crackles, continue home lasix 20mg po daily vs 40mg po qOD, last echo 06/18 EF 51% # Acute on chronic kidney failure ; base line cr 1.1. no blood in urine. Cr.is down to 1.3 #HTN:Hydralazine 50mg , coreg and Htz # DM: hold glyburide , cont insulin levemir # CAD , s/p recent stenting on Plavix/aspirin .EKG reviewed, LAD with flat TW in V6 ( improved from prior EKG) cont BB #normocytic anemia: baseline wnl Discharge patient home.
== END 2016-11-07 17:25 | disposition home or self-care (01) | DRG 871 ==
LOC: JER 00:43 → JERBED 05:34 → J4S 20:56
PROVIDERS: ADMIT Internal Medicine; ATTEND Internal Medicine
DX: A41.9 Sepsis, unspecified organism (principal); J18.9 Pneumonia, unspecified organism; J96.01 Acute respiratory failure with hypoxia; N17.9 Acute kidney failure, unspecified; I13.0 Hypertensive heart and chronic kidney disease with heart failure and stage 1 through stage 4 chronic kidney disease, or unspecified chronic kidney disease; I50.22 Chronic systolic (congestive) heart failure; J98.11 Atelectasis; D64.9 Anemia, unspecified; R31.29 Other microscopic hematuria; E78.5 Hyperlipidemia, unspecified; I25.10 Atherosclerotic heart disease of native coronary artery without angina pectoris; Z98.61 Coronary angioplasty status; E11.22 Type 2 diabetes mellitus with diabetic chronic kidney disease; N18.9 Chronic kidney disease, unspecified; Z87.891 Personal history of nicotine dependence; I27.2 Other secondary pulmonary hypertension; I36.1 Nonrheumatic tricuspid (valve) insufficiency
CPT/HCPCS: 36415; 71020-TC; 71250-TC; 80048; 80053; 81003; 81015; 82436; 82550; 82570; 82607; 82746; 82947; 83540; 83550; 83605; 83880; 84133; 84300; 84484; 85025; 85027; 85610; 85730; 87040; 87070; 87086; 87186; 87205; 87899; 93005; 93010; 93306-TC; 99285-25; J1644

== ENCOUNTER 2017-07-31 06:39 | Day surgery (SDC) | payer OTHER, BC ==
[2017-07-29 15:18] VITALS: BMI 27.4
[2017-07-31 08:25] VITALS: TEMP 98
[2017-07-31 12:33] VITALS: BP 115/57; PULSE 72
--- NOTE | 2017-08-01 15:27 | PATH ---
Cytology Non-Gynecological Report Patient Name: ROSA MARIA [facility]. Rec. #: [id number] /Age/Gender: 1945 (Age: 72) / M Account: [id number] Location: RADIOLOGY Taken: 07/31/2017 Received: 07/31/2017 Reported: 08/01/2017 Physicians: Gurpreet Trujillo M.D. Specimen(s) Received A: RIGHT PLEURAL FLUID B: RIGHT PLEURAL FLUID Clinical History Pleural effusion Final Diagnosis A & B. PLEURAL FLUID, RIGHT, THORACENTESIS: SATISFACTORY FOR EVALUATION NO MALIGNANT CELLS IDENTIFIED. MESOTHELIAL CELLS, MACROPHAGES, SCATTERED LYMPHOCYTES AND RARE NEUTROPHILS PRESENT. Electronically Signed Magaly Juares M.D. Gross Description A. Approximately 50 cc of yellow fluid received fixed in 50% alcohol. Two cytofunnels and one cellblock prepared. B. Approximately 1500 cc of yellow fluid received fresh. Two cytofunnels and one cellblock prepared.
== END 2017-07-31 12:10 | disposition home or self-care (01) ==
LOC: JRADIR 06:39
PROVIDERS: ATTEND Internal Medicine Pulmonary Disease
PROC: 0W993ZZ Drainage of Right Pleural Cavity, Percutaneous Approach (ICD-10-PCS; principal; 2017-07-31)
DX: J90 Pleural effusion, not elsewhere classified (principal)
CPT/HCPCS: 71045-TC-FY; 76942; 84311; 88108; 88305-TC

== ENCOUNTER 2017-08-06 10:59 | Inpatient (IN) | payer OTHER, BC ==
[2017-08-06 11:10] VITALS: BMI 27.4
--- NOTE | 2017-08-06 11:40 | PDOC ---
Attending Attestation - HPI HPI: 08/06/17 12:18 The patient is a 72 year old male with a significant PMH of diabetes, CHF, CAD, multiple pneumonias, pleural effusion, HTN, and hyperlipidemia who presents to the emergency department with 1 week of generalized fatigue and weakness and 1 day of fever (T. max 102.1F). He also reports a dry cough but denies increased shortness of breath. The patient reports recently having a pleural effusion drained on 07/31/[address] Trujillo and notes feeling generally weak and fatigued since then. He denies chest pain. He denies nausea, vomiting, or diarrhea. He denies any other complaints. Allergies: Pioglitazone HCl PCP: Dr. Rojas Pulm: Dr. Trujillo <Jalil Dumont - Last Filed: 08/06/17 12:19> - Resident Resident Name: BlancaAman - ED Attending Attestation I have performed the following: I have examined & evaluated the patient, The case was reviewed & discussed with the resident, I agree w/resident's findings & plan, Exceptions are as noted - Physicial Exam PE: GENERAL: Awake, alert, and fully oriented, in no acute distress HEAD: No signs of trauma EYES: PERRLA, EOMI, sclera anicteric, conjunctiva clear ENT: Auricles normal inspection, hearing grossly normal, nares patent, oropharynx clear without exudates. Dry mucosa NECK: Normal ROM, supple, no lymphadenopathy, JVD, or masses LUNGS: Good air entry B/L. +Dec breath sounds at bases B/L. No wheezes, and no crackles HEART: Regular rate and rhythm, normal S1 and S2, no murmurs, rubs or gallops ABDOMEN: Soft, nontender, normoactive bowel sounds. No guarding, no rebound. No masses EXTREMITIES: Normal range of motion, no edema. No clubbing or cyanosis. No cords, erythema, or tenderness NEUROLOGICAL: Cranial nerves II through XII grossly intact. Normal speech. Motor and sensation intact. Gait not tested due to nature of complaint. SKIN: Warm, Dry, normal turgor, no rashes or lesions noted. - Medical Decision Making Pt presents with weakness, found to have fever, mild hypoxia, probable infiltrate on CXR (and clinically his appearance is consistent with pneumonia). Will place on abx (broad coverage, as he has had pna multiple times in the past) , admit. <Iona Robin - Last Filed: 08/06/17 13:25>
--- NOTE | 2017-08-06 11:43 | PDOC ---
History of Present Illness - General Chief Complaint: Weakness Stated Complaint: POST-OP/ FEVER, FATIGUE Time Seen by Provider: 08/06/17 11:29 - History of Present Illness Initial Comments: 08/06/17 12:02 The patient is a 72 year old male with a history of DM, CHF, CAD, HTN, HLD who presents for evaluation of fevers, cough, and generalized weakness and fatigue. The patient reports that he recently had a pleural effusion drained by Dr. Jones 1 week ago and since his procedure, he has been experiencing severe fatigue and generalized weakness with an associated cough. The patient measured a fever of 102.1 at home and given his continued symptoms decided to present to the ED for evaluation. The patient has a history of multiple pneumonias in the past as well and notes that his recent pleural effusion was due to CHF. He otherwise denies chest pain, SOB, nausea, vomiting, abdominal pain, or changes with urination or bowel movements. Past History - Past Medical History Allergies/Adverse Reactions: Allergies Allergy/AdvReac Type Severity Reaction Status Date / Time pioglitazone HCl [From Actos] AdvReac Severe CHF Verified 08/06/17 11:12 Home Medications: Ambulatory Orders Cholecalciferol (Vitamin D3) [Vitamin D3] 1,000 unit PO DAILY 04/03/14 Aspirin [Ecotrin] 81 mg PO DAILY 03/26/16 Vitamin B Complex 1 each PO DAILY 03/26/16 Docusate Sodium 100 mg PO TID capsule 07/18/16 Carvedilol 25 mg PO BID tablet 10/04/16 Glyburide 5 mg PO BID tablet 10/04/16 Sacubitril/Valsartan [Entresto 24 mg-26 mg Tablet] 1 each PO BID tablet Acetaminophen [Tylenol] 650 mg PO QID PRN 11/05/16 Furosemide 40 mg PO DAILY tablet 11/12/16 Gabapentin 300 mg PO BID capsule 11/12/16 Isosorbide Dinitrate 20 mg PO TID tablet 11/12/16 Anemia: No Asthma: No Cancer: Yes (SKIN) Cardiac Disorders: Yes (STENTS , 07/30/16, has heart monitor) CVA: No COPD: No (hx pneumonia) CHF: Yes Dementia: No Diabetes: Yes GI Disorders: No Disorders: No HTN: Yes Hypercholesterolemia: Yes Liver Disease: No Seizures: No Thyroid Disease: No - Surgical History Abdominal Surgery: Yes (HERNIA) Appendectomy: No Cardiac Surgery: Yes (STENTS 95/, 07/2016) Cholecystectomy: No Lung Surgery: No (bronchoscopy 03/17) Neurologic Surgery: No Orthopedic Surgery: No - Immunization History Td Vaccination: Yes Immunization Up to Date: Yes - Suicide/Smoking/Psychosocial Hx Smoking Status: No Smoking History: Never smoked Have you smoked in the past 12 months: No Number of Cigarettes Smoked Daily: 0 If you are a former smoker, when did you quit?: 35 YEARS AGO Information on smoking cessation initiated: No 'Breaking Loose' booklet given: 08/15/15 Hx Alcohol Use: No Drug/Substance Use Hx: No Substance Use Type: None Hx Substance Use Treatment: No Review of Systems - Review of Systems Comments:: 08/06/17 12:10 Constitutional: Fevers, Chills, Fatigue. No malaise HEENT: No Rhinorrhea, nasal congestion, visual changes Cardiovascular: No chest pain, syncope, palpitations, lightheadedness Respiratory: Cough. No SOB, Hemoptysis, Gastrointestinal: No Abdominal pain, Nausea, Vomiting, Constipation, Diarrhea, Melena Genitourinary: No Dysuria, Frequency, Urgency, Hesitancy, Hematuria, Flank pain Musculoskeletal: No Myalgia, arthralgia Skin: No rashes, itching, bruising, pallor Neurologic: No Headache, Dizziness, Numbness, Weakness, or Tingling Psychiatric: No Hallucinations. No SI or HI *Physical Exam - Vital Signs Last Vital Signs Temp Pulse Resp BP Pulse Ox 98.8 F 94 H 19 102/54 91 L 08/06/17 11:07 08/06/17 11:07 08/06/17 11:07 08/06/17 11:07 08/06/17 11:07 - Physical Exam Comments: 08/06/17 12:11 General Appearance: Nourished. No Apparent Distress HEENT: EOMI, [place]. No Pharyngeal Erythema, Tonsillar Exudate, Tonsillar Erythema Neck: No Cervical Lymphadenopathy Respiratory/Chest: Lungs Clear, Diminished Breath sounds bilaterally. No Crackles, Rales, Rhonchi, Wheezing Cardiovascular: Regular Rhythm, Regular Rate. No Murmur, Gallops, Rubs Gastrointestinal/Abdominal: Normal Bowel Sounds, Soft. No Guarding, Rebound, Tenderness Musculoskeletal: No CVA Tenderness Extremity: Normal Capillary Refill Integumentary: Normal Color, Dry, Warm Neurologic: Fully Oriented, Alert, Normal Mood/Affect, Normal Response, Heart Score/ECG Review #1 ECG reviewed & interpreted by me at: 12:13 (Left Scammon Deviation. Incomplete right bundle branch block) General ECG Interpretation: Sinus Rhythm, Normal Rate, Normal Intervals, No acute ischemic changes Compared to previous ECG there are: No significant change ED Treatment Course - LABORATORY CBC & Chemistry Diagram: 08/06/17 12:25 08/06/17 12:25 - RADIOLOGY Radiology Studies Ordered: Category Date Time Status CHEST X-RAY PORTABLE* [RAD] Stat Radiology 08/06/17 11:40 Ordered Medical Decision Making - Medical Decision Making 08/06/17 12:16 The patient is a 72 year old male with a history of DM, CHF, CAD, HTN, HLD who presents for evaluation of fevers, cough, and generalized weakness and fatigue. Differential includes but is not limited to: Sepsis, Pneumonia, CHF, infectious, metabolic derangement. Given the patient's fevers, and cough as well as recent procedure, we are concerned for a pneumonia or sepsis. We will obtain a cbc, cmp, troponin, lactate, blood cultures, ua, urine cultures, vbg, chest plain film, ekg to evaluate further. We will continue to monitor and reassess. 08/06/17 13:01 CBC is unremarkable. CMP demonstrates an elevated creatinine to 2.2. Chest plain film demonstrates possible early left infiltrate. The patient will require admission for further management of his symptoms. We are giving fluids conservatively due to the patient's history of CHF at this time. We will treat with azithromycin and zosyn here in the ED. We will continue to monitor and reassess. 08/06/17 14:04 Discussed with the hospitalist team who accepted the patient for admission. *DC/Admit/Observation/Transfer Diagnosis at time of Disposition: Pneumonia Qualifiers: Pneumonia type: due to unspecified organism Laterality: unspecified laterality Lung location: unspecified part of lung Qualified Code(s): J18.9 - Pneumonia, unspecified organism Sepsis Qualifiers: Sepsis type: sepsis due to unspecified organism Qualified Code(s): A41.9 - Sepsis, unspecified organism - Discharge Dispostion Condition at time of disposition: Stable Admit: Yes - Referrals Referrals: Boris Rojas MD [Primary Care Provider] - - Patient Instructions - Post Discharge Activity
[2017-08-06 12:38] LABS: VENOUS PH 7.34 (7.32-7.42)
[2017-08-06 12:39] LABS: VENOUS PC02 42.5 mmHg (38-52)
[2017-08-06] MEDS ORDERED: ACETAMINOPHEN 1000 MG/100 ML VIAL (NON FORMULARY) IVPB ONE (12:40)
[2017-08-06 12:41] LABS: HEMOGLOBIN 11.5 GM/dL (11.7-16.9); MONO % 6.9 % (3.8-10.2); NEUT % 80.5 % (42.8-82.8)
[2017-08-06 12:45] LABS: INR 1.13 (0.82-1.09); PROTHROMBIN TIME (PATIENT) 12.8 SEC (9.98-11.88)
[2017-08-06 12:47] LABS: ACTIVATED PTT 29.1 SECONDS (26.9-34.4)
[2017-08-06 12:48] LABS: BASO % 0.4 % (0-2.0); EOS % 1.4 % (0-4.5); HEMATOCRIT 34.5 % (35.4-49); LYMPH % 10.8 % (8-40); MCH 31.6 pg (25.7-33.7); MCHC 33.5 g/dl (32.0-35.9); MEAN CELL VOLUME 94.4 fl (80-96); PLATELET COUNT 130 K/MM3 (134-434); RBC 3.65 M/mm3 (4.00-5.60); RDW 14.9 % (11.9-15.9); WHITE BLOOD COUNT 8.5 K/mm3 (4.0-10.0)
[2017-08-06 12:50] LABS: URINE APPEARANCE SLCLOUDY; URINE BILIRUBIN NEGATIVE (NEGATIVE); URINE BLOOD 2+ (NEGATIVE); URINE COLOR YELLOW; URINE GLUCOSE (UA) NEGATIVE (NEGATIVE); URINE KETONE NEGATIVE (NEGATIVE); URINE LEUK ESTERASE TRACE (NEGATIVE); URINE NITRITE NEGATIVE (NEGATIVE)
[2017-08-06 12:51] LABS: URINE PROTEIN 1+ (NEGATIVE)
[2017-08-06 12:53] LABS: EPI CELLS RARE /HPF (FEW); URINE HYALINE CAST 10 /lpf; URINE MUCUS RARE
[2017-08-06 12:55] LABS: ALBUMIN 2.6 g/dl (3.4-5.0); ALK PHOS 124 U/L (45-117); ANION GAP 10 (8-16); BILIRUBIN,TOTAL 0.7 mg/dL (0.2-1.0); BLOOD UREA NITROGEN 72 mg/dL (7-18); CHLORIDE 108 mmol/L (98-107); CO2 22 mmol/L (21-32); CREATININE 2.2 mg/dL (0.7-1.3); GLUCOSE,RANDOM 293 mg/dL (74-106); POTASSIUM 5.3 mmol/L (3.5-5.1); SGOT/AST 14 U/L (15-37); SGPT/ALT 27 U/L (12-78); SODIUM 140 mmol/L (136-145); TOT PROT 6.7 g/dl (6.4-8.2)
[2017-08-06] MEDS ORDERED: ACETAMINOPHEN INJECTION 100 ML IVPB ONE (12:58)
[2017-08-06] MEDS ORDERED: SODIUM CHLORIDE 500 ML IV STA (13:00)
[2017-08-06] MEDS ORDERED: AZITHROMYCIN IVPB 500 MG in DEXTROSE 5%-WATER - 250 ML IVPB ONE (13:04)
[2017-08-06] MEDS ORDERED: PIPERACILLIN/TAZOB 3.375 GM 50 ML IVPB ONE (13:04)
[2017-08-06] MEDS ORDERED: PIPERACILLIN/TAZOB 3.375 GM 3.375 GM/50 ML BAG IVPB ONE (13:55)
[2017-08-06] MEDS ORDERED: AZITHROMYCIN IVPB 250 ML IVPB ONE (13:55)
--- NOTE | 2017-08-06 14:34 | EKG ---
Test Reason : Blood Pressure : / mmHG Vent. Rate : 086 BPM Atrial Rate : 086 BPM P-R Int : 176 ms QRS Dur : 112 ms QT Int : 368 ms P-R-T Axes : 052 -45 099 degrees QTc Int : 440 ms NORMAL SINUS RHYTHM LEFT AXIS DEVIATION INCOMPLETE RIGHT BUNDLE BRANCH BLOCK ANTEROSEPTAL INFARCT , AGE UNDETERMINED ABNORMAL ECG WHEN COMPARED WITH ECG OF 05-NOV-2016 01:35, INCOMPLETE RIGHT BUNDLE BRANCH BLOCK IS NOW PRESENT ANTEROSEPTAL INFARCT IS NOW PRESENT Confirmed by KINA ANDERSON, CLAUDY ([id number]) on 08/06/2017 2:34:22 PM Referred By: Confirmed By:CLAUDY CASTANON MD
--- NOTE | 2017-08-06 15:25 | HP ---
CHIEF COMPLAINT: Fever, chills, cough PCP: Dr. Alexandre Pulmonary: Dr. Trujillo HISTORY OF PRESENT ILLNESS: 71 year-old male with a PMH of HTN, HLD, CAD s/p multiple stents, systolic heart failure, pulmonary HTN, recurrent pneumonia, repeated thoracenteses, IDDM , who presented to the ED with generalized weakness and fatigue since undergoing thoracentesis with Dr. Trujillo on 07/31. Over the past 24 hours, developed fever to 102.1 and rigoring chills. Patient states he has had a cough productive of yellowish sputum. Patient denies nausea, vomiting, diarrhea. Denies chest pain, palpitations, orthopnea, PND, and lower extremity edema. No change in bowel or bladder. ER course was notable for: (1) T101.1 p94 BP 93/48 (2) Tylenol 1g x 1; azithromycin 500mg x 1; Zosyn 3.375mg x 1; NS 500cc x 1 (3) CXR: possible early LLL infiltrate Recent Travel: No PAST MEDICAL HISTORY: Hypertension Coronary artery disease Systolic heart faiure Pulmonary hypertension Recurrent pneumonia IDDM GERD IBD PAST SURGICAL HISTORY: Cardiac stents Thoracentesis (07/31/17, Ronnie) Social History: Smoking: quit 35 years ago Alcohol: no Drugs: no Family History: Allergies pioglitazone HCl [From [employer]] Adverse Reaction (Severe, Verified 08/06/17 11:12) HOME MEDICATIONS: Medication Instructions Recorded Cholecalciferol (Vitamin D3) 1,000 unit PO DAILY 04/03/14 [Vitamin D3] Aspirin [Ecotrin] 81 mg PO DAILY 03/26/16 Vitamin B Complex 1 each PO DAILY 03/26/16 Docusate Sodium 100 mg PO TID capsule 07/18/16 Carvedilol 25 mg PO BID tablet 10/04/16 Glyburide 5 mg PO BID tablet 10/04/16 Sacubitril/Valsartan [Entresto 24 1 each PO BID tablet 10/29/16 mg-26 mg Tablet] Acetaminophen [Tylenol] 650 mg PO QID PRN 11/05/16 Furosemide 40 mg PO DAILY tablet 11/12/16 Gabapentin 300 mg PO BID capsule 11/12/16 Isosorbide Dinitrate 20 mg PO TID tablet 11/12/16 REVIEW OF SYSTEMS CONSTITUTIONAL: +rigors, fever, generalized weakness Absent: fever, chills, diaphoresis, malaise, loss of appetite, weight change HEENT: Absent: rhinorrhea, nasal congestion, throat pain, throat swelling, difficulty swallowing, mouth swelling, ear pain, eye pain, visual changes CARDIOVASCULAR: Absent: chest pain, syncope, palpitations, irregular heart rate, lightheadedness , peripheral edema RESPIRATORY: +cough, SOB, [place] Absent: cough, orthopnea, wheezing, stridor, hemoptysis GASTROINTESTINAL: Absent: abdominal pain, abdominal distension, nausea, vomiting, diarrhea, constipation, melena, hematochezia GENITOURINARY: Absent: dysuria, frequency, urgency, hesitancy, hematuria, flank pain, genital pain MUSCULOSKELETAL: Absent: myalgia, arthralgia, joint swelling, back pain, neck pain SKIN: Absent: rash, itching, pallor HEMATOLOGIC/IMMUNOLOGIC: Absent: easy bleeding, easy bruising, lymphadenopathy, frequent infections ENDOCRINE: Absent: unexplained weight gain, unexplained weight loss, heat intolerance, cold intolerance NEUROLOGIC: Absent: headache, focal weakness or paresthesias, dizziness, unsteady gait, seizure, mental status changes, bladder or bowel incontinence PSYCHIATRIC: Absent: anxiety, depression, suicidal or homicidal ideation, hallucinations. PHYSICAL EXAMINATION Vital Signs - 24 hr 08/06/17 08/06/17 08/06/17 11:07 12:15 14:00 Temperature 98.8 F 101.1 F H Pulse Rate 94 H Pulse Rate [ Right Radial] Respiratory 19 20 Rate Blood Pressure 102/54 Blood Pressure [Left Arm] O2 Sat by Pulse 91 L 93 L Oximetry (%) 08/06/17 08/06/17 14:15 15:17 Temperature Pulse Rate Pulse Rate [ 87 74 Right Radial] Respiratory 20 18 Rate Blood Pressure Blood Pressure 93/48 95/51 [Left Arm] O2 Sat by Pulse 93 L 97 Oximetry (%) GENERAL: Awake, alert, and fully oriented, in no acute distress. HEAD: Normal with no signs of trauma. EYES: Pupils equal, round and reactive to light, extraocular movements intact, sclera anicteric, conjunctiva clear. No lid lag. EARS, NOSE, THROAT: Ears normal, nares patent, oropharynx clear without exudates. NECK: Normal range of motion, supple without lymphadenopathy, JVD, or masses. LUNGS: Decreased sounds at bases. No wheezes, and no crackles. No accessory muscle use. HEART: Regular rate and rhythm, normal S1 and S2 ABDOMEN: Soft, nontender, not distended, normoactive bowel sounds, no guarding, no rebound, no masses MUSCULOSKELETAL: Normal range of motion at all joints. No bony deformities or tenderness. No CVA tenderness. UPPER EXTREMITIES: 2+ pulses, warm, well-perfused. No cyanosis. No clubbing. No peripheral edema. LOWER EXTREMITIES: 2+ pulses, warm, well-perfused. No calf tenderness. No peripheral edema. NEUROLOGICAL: Cranial nerves II-XII intact. Normal speech. Laboratory Results - last 24 hr 08/06/17 08/06/17 08/06/17 12:25 12:25 12:25 WBC 8.5 RBC 3.65 L Hgb 11.5 L Hct 34.5 L MCV 94.4 MCH 31.6 MCHC 33.5 RDW 14.9 Plt Count 130 L MPV 9.0 Neutrophils % 80.5 Lymphocytes % 10.8 D Monocytes % 6.9 D Eosinophils % 1.4 D Basophils % 0.4 D PT with INR 12.80 H INR 1.13 PTT (Actin FS) 29.1 VBG pH 7.34 POC VBG pCO2 42.5 POC VBG pO2 21.0 L Mixed VBG HCO3 22.3 Sodium Potassium Chloride Carbon Dioxide Anion Gap BUN Creatinine Creat Clearance w eGFR Random Glucose Lactic Acid Calcium Total Bilirubin AST ALT Alkaline Phosphatase Troponin I Total Protein Albumin Urine Color Urine Appearance Urine pH Ur Specific [place] Urine Protein Urine Glucose (UA) Urine Ketones Urine Blood Urine Nitrite Urine Bilirubin Urine Urobilinogen Ur Leukocyte Esterase Urine WBC (Auto) Urine RBC (Auto) Ur Epithelial Cells Hyaline Casts Urine Mucus 08/06/17 08/06/17 08/06/17 12:25 12:25 12:25 WBC RBC Hgb Hct MCV MCH MCHC RDW Plt Count MPV Neutrophils % Lymphocytes % Monocytes % Eosinophils % Basophils % PT with INR INR PTT (Actin FS) VBG pH POC VBG pCO2 POC VBG pO2 Mixed VBG HCO3 Sodium 140 Potassium 5.3 H D Chloride 108 H Carbon Dioxide 22 Anion Gap 10 BUN 72 H Creatinine 2.2 H D Creat Clearance w eGFR 29.41 Random Glucose 293 H D Lactic Acid 1.4 Calcium 8.0 L Total Bilirubin 0.7 AST 14 L ALT 27 Alkaline Phosphatase 124 H Troponin I 0.02 D Cancelled Total Protein 6.7 Albumin 2.6 L D Urine Color Urine Appearance Urine pH Ur Specific [place] Urine Protein Urine Glucose (UA) Urine Ketones Urine Blood Urine Nitrite Urine Bilirubin Urine Urobilinogen Ur Leukocyte Esterase Urine WBC (Auto) Urine RBC (Auto) Ur Epithelial Cells Hyaline Casts Urine Mucus 08/06/17 12:35 WBC RBC Hgb Hct MCV MCH MCHC RDW Plt Count MPV Neutrophils % Lymphocytes % Monocytes % Eosinophils % Basophils % PT with INR INR PTT (Actin FS) VBG pH POC VBG pCO2 POC VBG pO2 Mixed VBG HCO3 Sodium Potassium Chloride Carbon Dioxide Anion Gap BUN Creatinine Creat Clearance w eGFR Random Glucose Lactic Acid Calcium Total Bilirubin AST ALT Alkaline Phosphatase Troponin I Total Protein Albumin Urine Color Yellow Urine Appearance Slcloudy Urine pH 5.0 Ur Specific [place] 1.013 Urine Protein 1+ H Urine Glucose (UA) Negative Urine Ketones Negative Urine Blood 2+ H Urine Nitrite Negative Urine Bilirubin Negative Urine Urobilinogen 2.0 Ur Leukocyte Esterase Trace Urine WBC (Auto) 6 Urine RBC (Auto) 6 Ur Epithelial Cells Rare Hyaline Casts 10 Urine Mucus Rare ASSESSMENT/PLAN: 71 year-old male with a PMH of HTN, HLD, CAD s/p multiple stents, systolic heart failure, pulmonary HTN, recurrent pneumonia, IDDM, and gout, admitted for sepsis possibly due to pneumonia. Sepsis possibly secondary to pneumonia --T 101.1, p 94, CXR shows left basilar atelectatic changes, possible early infiltrate --has been symptomatic since 07/31 thoracentesis --start Vanc and Zosyn both renally dosed --empiric Tamiflu renally dosed --flu swab, cultures pending SPIKE Azotemia --Cr 2.2, baseline 1.2 --likely prerenal --hold Lasix Hypertension --initially hypotensive in ED, now 151/75 --hold carvedilol due to sepsis Hyperlipidemia --continue Lipitor Coronary artery disease s/p multiple stents --contnue ASA, Plavix, Lipitor, isosordil --hold carvedilol for now Systolic heart failure Pulmonary hypertension --holding lasix for now due to sepsis IDDM --Novolog sliding scale coverage Gout --allopurinol FEN Fluids: PO intake adequate Electrolytes: replete as indicated Nutrition: low sodium, diabetic DVT prophylaxis: subq heparin Physical therapy evaluation Daily PT Dispo: continues to require inpatient care. Full code. Visit type - Emergency Visit Emergency Visit: Yes ED Registration Date: 08/06/17 Care time: The patient presented to the Emergency Department on the above date and was hospitalized for further evaluation of their emergent condition. - New Patient This patient is new to me today: Yes Date on this admission: 08/06/17 - Critical Care Critical Care patient: No Hospitalist Screening - Colonoscopy Questionnaire Colonoscopy Questionnaire: Colonoscopy Questionnaire - Patient: 50 - 75 years old and never had a screening colonoscopy: Unknown History of colon or rectal polyps, or CA: Unknown History of IBD, Crohn's disease or UC: Unknown History of abdominal radiation therapy as a child: Unknown - Relative: 1 with colon or rectal CA, or polyps at age 60 or younger: Unknown Colon or rectal CA diagnosed at age 45 or younger: Unknown Multiple relatives with colon or rectal CA: Unknown - Outcome: Screening Result: Negative Screen
[2017-08-06] MEDS ORDERED: INSULIN (NOVOLOG) ASPART 100 UNITS/ML 10ML VIAL SQ SCH (16:30)
[2017-08-06] MEDS ORDERED: VANCOMYCIN 1,250 MG in DEXTROSE 5%-WATER - 250 ML IVPB STA (17:03)
[2017-08-06] MEDS ORDERED: PIPERACILLIN/TAZOB 2.25 GM 2.25 GM in DEXTROSE 5%-WATER - 50 ML IVPB SCH ×2 (17:30→21:00)
[2017-08-06] MEDS: INSULIN SLIDING SCALE (NOVOLOG) 1 VIAL SQ SCH ×2 (17:49→22:21)
[2017-08-06] MEDS: SODIUM CHLORIDE 1,000 ML IV SCH (17:49)
[2017-08-06] MEDS ORDERED: VANCOMYCIN 1,250 MG in DEXTROSE 5%-WATER - 250 ML IVPB SCH (18:00)
[2017-08-06] MEDS ORDERED: VANCOMYCIN 1,000 MG in DEXTROSE 5%-WATER - 250 ML IVPB SCH (18:00)
[2017-08-06] MEDS ORDERED: PIPERACILLIN/TAZOB 2.25 GM/50 ML PREMIX BAG IVPB SCH (21:00)
[2017-08-06] MEDS ORDERED: OSELTAMIVIR PHOSPHATE 75 MG CAPSULE PO SCH (22:00)
[2017-08-06] MEDS: HEPARIN NA (PORCINE) 5,000 UNITS/ML 1ML VIAL SQ SCH (22:19)
[2017-08-06] MEDS: OSELTAMIVIR PHOSPHATE 30 MG CAPSULE PO SCH (22:19)
[2017-08-06] MEDS: ATORVASTATIN CA 80 MG TABLET (FP) PO SCH (22:19)
[2017-08-06] MEDS: DOCUSATE SODIUM 100 MG CAPSULE (FP) PO SCH (22:19)
[2017-08-06] MEDS: GABAPENTIN 300 MG CAPSULE (FP) PO SCH (22:19)
[2017-08-06] MEDS: CARVEDILOL 25 MG TABLET (FP) PO SCH (22:19)
[2017-08-06] MEDS: ISOSORBIDE DINITRATE 20 MG TABLET (FP) PO SCH (22:27)
[2017-08-06] MEDS: SACUBITRIL/VALSARTAN 24 MG-26 MG TABLET PO SCH (22:27)
[2017-08-07] MEDS: PIPERACILLIN/TAZOB 2.25 GM 2.25 GM in DEXTROSE 5%-WATER - 50 ML IVPB SCH ×2 (00:32→06:18)
[2017-08-07] MEDS: DOCUSATE SODIUM 100 MG CAPSULE (FP) PO SCH ×3 (05:21→22:14)
[2017-08-07] MEDS: HEPARIN NA (PORCINE) 5,000 UNITS/ML 1ML VIAL SQ SCH ×4 (05:21→22:19)
[2017-08-07] MEDS: ISOSORBIDE DINITRATE 20 MG TABLET (FP) PO SCH ×3 (05:21→18:15)
[2017-08-07] MEDS ORDERED: VANCOMYCIN 1,250 MG in DEXTROSE 5%-WATER - 250 ML IVPB SCH (06:00)
[2017-08-07] MEDS: INSULIN SLIDING SCALE (NOVOLOG) 1 VIAL SQ SCH ×4 (06:18→22:19)
[2017-08-07 07:37] LABS: BASO % 0.5 % (0-2.0); HEMATOCRIT 30.5 % (35.4-49); HEMOGLOBIN 10.5 GM/dL (11.7-16.9); LYMPH % 14.1 % (8-40); MCH 32.2 pg (25.7-33.7); MCHC 34.3 g/dl (32.0-35.9); MEAN CELL VOLUME 93.8 fl (80-96); MONO % 7.8 % (3.8-10.2); NEUT % 75.6 % (42.8-82.8); PLATELET COUNT 117 K/MM3 (134-434); RBC 3.25 M/mm3 (4.00-5.60); RDW 14.7 % (11.9-15.9); WHITE BLOOD COUNT 8.6 K/mm3 (4.0-10.0)
[2017-08-07 07:41] LABS: ALBUMIN 2.1 g/dl (3.4-5.0); ANION GAP 10 (8-16); BILIRUBIN,TOTAL 0.8 mg/dL (0.2-1.0); BLOOD UREA NITROGEN 72 mg/dL (7-18); CALCIUM 7.8 mg/dL (8.5-10.1); CHLORIDE 112 mmol/L (98-107); CO2 21 mmol/L (21-32); CREATININE 2.1 mg/dL (0.7-1.3); GLUCOSE,RANDOM 55 mg/dL (74-106); MAGNESIUM 2.4 mg/dL (1.8-2.4); PHOSPHOROUS 3.3 mg/dL (2.5-4.9); SGOT/AST 14 U/L (15-37); SGPT/ALT 26 U/L (12-78); SODIUM 143 mmol/L (136-145); TOT PROT 5.4 g/dl (6.4-8.2)
[2017-08-07 07:58] LABS: ALK PHOS 90 U/L (45-117)
--- NOTE | 2017-08-07 10:21 | PN ---
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 (short form) - Note 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: ID Consult dictated Community acquired vs. atypical LLL pneumonia S/P R thoracentesis Thrombocytopenia Azotemia Await sepsis workup Empiric zithromax/ ceftriaxone/ Tamiflu Pulmonary follow up
[2017-08-07] MEDS: CARVEDILOL 25 MG TABLET (FP) PO SCH (10:25)
[2017-08-07] MEDS: SACUBITRIL/VALSARTAN 24 MG-26 MG TABLET PO SCH ×3 (10:25→22:14)
[2017-08-07] MEDS ORDERED: PT OWN MED DRAWER 7, Y5N ONE ×4 (10:28→23:11)
[2017-08-07] MEDS: ASPIRIN COATED 81 MG TABLET.EC PO SCH (10:29)
[2017-08-07] MEDS: GABAPENTIN 300 MG CAPSULE (FP) PO SCH ×2 (10:29→22:15)
[2017-08-07] MEDS: CLOPIDOGREL BISULFATE 75 MG TABLET (FP) PO SCH (10:29)
[2017-08-07] MEDS: ALLOPURINOL 100 MG TABLET (FP) PO SCH (10:30)
[2017-08-07] MEDS: OSELTAMIVIR PHOSPHATE 30 MG CAPSULE PO SCH ×2 (10:30→22:15)
--- NOTE | 2017-08-07 11:16 | CON.PULM ---
Consult Consult Specialty:: PULMONARY Referred by:: ENA Reason for Consultation:: PNEUMONIA - History of Present Illness Chief Complaint: SOB/WEAKNESS/COUGH History of Present Illness: The patient is a 72 year old male with a history of DM, CHF, CAD, HTN, HLD who presents for evaluation of fevers, cough, and generalized weakness and fatigue. The patient reports that he recently had a pleural effusion drained 1 week ago and since his procedure, he has been experiencing severe fatigue and generalized weakness with an associated cough. The patient has a fever of 102.1 at home and given his continued symptoms decided to present to the ED for evaluation. The patient has a history of multiple pneumonias in the past as well and notes that his recent pleural effusion was due to CHF. He otherwise denies chest pain, nausea, vomiting, abdominal pain, or changes with urination or bowel movements. 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 No: AFIB Pulmonary: Yes: Pneumonia (03/2016), Other (Chronic right pleural effusion ) Gastrointestinal: Yes: GERD, Irritable Bowel Disease Renal/: Yes: Renal Inusuff, BPH, Renal Calculi Musculoskeletal: Yes: Osteoarthritis Rheumatology: Yes: Gout Endocrine: Yes: Diabetes Mellitus, Other (Hypogonadism, nodular goiter) - Past Surgical History Past Surgical History: Yes: Cataract Removal (bilateral), Hernia Repair ( umbillical) - Alcohol/Substance Use Hx Alcohol Use: No History of Substance Use: reports: None - Smoking History Smoking history: Never smoked Have you smoked in the past 12 months: No Aproximately how many cigarettes per day: 0 If you are a former smoker, when did you quit?: 35 YEARS AGO - Social History ADL: Independent History of Recent Travel: No Home Medications - Allergies Allergies/Adverse Reactions: Allergies Allergy/AdvReac Type Severity Reaction Status Date / Time No Known Drug Allergies Allergy Verified 08/06/17 16:28 pioglitazone HCl [From Actos] AdvReac Severe CHF Verified 08/06/17 11:12 - Home Medications Home Medications: Ambulatory Orders Cholecalciferol (Vitamin D3) [Vitamin D3] 1,000 unit PO DAILY 04/03/14 Aspirin [Ecotrin] 81 mg PO DAILY 03/26/16 Vitamin B Complex 1 each PO DAILY 03/26/16 Docusate Sodium 100 mg PO TID capsule 07/18/16 Carvedilol 25 mg PO BID tablet 10/04/16 Glyburide 5 mg PO BID tablet 10/04/16 Sacubitril/Valsartan [Entresto 24 mg-26 mg Tablet] 1 each PO BID tablet Acetaminophen [Tylenol] 650 mg PO QID PRN 11/05/16 Furosemide 40 mg PO DAILY tablet 11/12/16 Gabapentin 300 mg PO BID capsule 11/12/16 Isosorbide Dinitrate 20 mg PO TID tablet 11/12/16 Family Disease History - Family Disease History Family Disease History: Heart Disease: Mother (CHF) Review of Systems - Review of Systems Constitutional: reports: Fever, Lethargy, Weakness Eyes: denies: Blurred Vision HENT: denies: Difficult Swallowing Neck: denies: Decreased ROM Cardiovascular: denies: Chest Pain Respiratory: reports: Cough, Exercise Intolerance, SOB, SOB on Exertion. denies : Hemoptysis, Orthopnea, Wheezing Gastrointestinal: reports: No Symptoms Neurological: reports: No Symptoms Physical Exam Vital Sings: Vital Signs Temperature 99.6 F 08/07/17 06:00 Pulse Rate 80 08/07/17 06:00 Respiratory Rate 20 08/07/17 06:00 Blood Pressure 98/50 08/07/17 06:00 O2 Sat by Pulse Oximetry (%) 95 08/06/17 21:00 Constitutional: Yes: Calm Eyes: Yes: EOM Intact HENT: Yes: Normocephalic Neck: Yes: Trachea Midline Cardiovascular: Yes: Regular Rate and Rhythm Respiratory: Yes: Diminished (bibasilar) Gastrointestinal: Yes: Soft, Abdomen, Obese Edema: No Neurological: Yes: Alert Labs: CBC, BMP 08/07/17 06:00 08/07/17 06:00 rest reviewed Imaging - Results Chest X-ray: Report Reviewed, Image Reviewed Cat Scan: Report Reviewed, Image Reviewed Problem List - Problems (1) Pneumonia Code(s): J18.9 - PNEUMONIA, UNSPECIFIED ORGANISM Qualifiers: Pneumonia type: due to unspecified organism Laterality: unspecified laterality Lung location: unspecified part of lung Qualified Code(s): J18.9 - Pneumonia, unspecified organism (2) CHF (congestive heart failure) Code(s): I50.9 - HEART FAILURE, UNSPECIFIED (3) Chronic left systolic heart failure Code(s): I50.22 - CHRONIC SYSTOLIC (CONGESTIVE) HEART FAILURE (4) Diabetes Code(s): E11.9 - TYPE 2 DIABETES MELLITUS WITHOUT COMPLICATIONS Qualifiers: Diabetes mellitus type: type 2 Diabetes mellitus complication status: with kidney complications Diabetes mellitus complication detail: with chronic kidney disease (5) Pleural effusion Code(s): J90 - PLEURAL EFFUSION, NOT ELSEWHERE CLASSIFIED (6) Pulmonary hypertension Code(s): I27.2 - OTHER SECONDARY PULMONARY HYPERTENSION * DO NOT USE * (7) CAD (coronary artery disease) Code(s): I25.10 - ATHSCL HEART DISEASE OF [place] CORONARY ARTERY W/O ANG PCTRS Qualifiers: Coronary Disease-Associated Artery/Lesion type: [place] artery [place] vs. transplanted heart: [place] heart Associated angina: with unspecified angina Qualified Code(s): I25.119 - Atherosclerotic heart disease of [place] coronary artery with unspecified angina pectoris (8) Insulin dependent diabetes mellitus Code(s): E11.9 - TYPE 2 DIABETES MELLITUS WITHOUT COMPLICATIONS; Z79.4 - PENITENTIARY (CURRENT) USE OF INSULIN Assessment/Plan RECENT THORACENTESIS LIKELY NOT RESPONSIBLE FOR PRESENT ADMISSION LEFT LOWER LOBE INFILTRATE NOTED ON CXR RIGHT PLEURAL LIQUID WITH EXUDATIVE CHARACTERISTICS BASED ON T.PROTEIN MEASUREMENT AGREE WITH ANTIBIOTICS/GRAM STAIN CULTURE OF PLEURAL TAP NEGATIVE CHECK CULTURES STILL PENDING CT CHEST NO CONTRAST ORDERED WILL FOLLOW Yusuf ARGUELLO MD
--- NOTE | 2017-08-07 11:49 | CONS ---
INFECTIOUS DISEASE CONSULTATION DATE OF CONSULTATION: DATE OF DICTATION: 08/07/2017 REASON FOR CONSULTATION: The patient is a 72-year-old male with a history of pulmonary hypertension, coronary artery disease, chronic right pleural effusion, and recurrent pneumonias, now evaluated for pneumonia. HISTORY OF PRESENT ILLNESS: The patient underwent a diagnostic paracentesis as an outpatient on July 31, 2017. He reports that he felt fine initially after the procedure. However, later on, developed profound weakness, fatigue, and rigors. He reports having fever to 102 at home and a dry cough. He presented to the emergency room on August 06, where a chest x-ray was performed and showed left basilar atelectatic changes, possible early infiltrate. He was empirically treated with Zithromax and Zosyn as well as Tamiflu. At the present time, the patient complains of profound weakness. He has an occasional cough productive of whitish sputum. He denies any chest pain. No hemoptysis. He has had documented fever in the hospital and has recurrent rigors. Patient lives at home with his who is well. She has no respiratory tract symptoms. Denies any recent hospitalizations. No recent travel. PAST MEDICAL HISTORY: Positive for pulmonary hypertension, diabetes mellitus, hypertension, hyperlipidemia, congestive heart failure, coronary artery disease status post coronary artery stent, recurrent pneumonias, chronic right pleural effusion status post thoracentesis on July 31. ALLERGIES: No known allergies. MEDICATIONS: Aspirin, Colace, carvedilol, glyburide, Tylenol, Lasix, Neurontin. SOCIAL HISTORY: Former smoker, reports stopping approximately 35 years ago. SYSTEMS REVIEW: Neurologic: No loss of consciousness, seizure activity, or focal weakness. Cardiac: Negative chest pain and palpitations. Respiratory: As per HPI. Gastrointestinal: Negative vomiting or diarrhea. Genitourinary: Negative for urinary tract infection. LABORATORY DATA: White count 8.6, with 75% neutrophils, 14 lymphocytes, 7 monocytes; hematocrit 30.5; platelet count 117. BUN 72, creatinine 2.1. Urinalysis: White cells 1. Blood and urine cultures are pending. C-reactive protein 21.0. Influenza swab pending. Thoracentesis: Protein 4.5, LDH 108, white cells 378, neutrophils 16%, macrophages 55, lymphocytes 27. Chest x-ray showed some increased markings at the left base. PHYSICAL EXAMINATION: General: He is awake and alert. He is supine in bed. He is weak appearing. Breathing is non-labored. No cough noted. Vital Signs: Temperature 99.6, T-max 101.1. Blood pressure 98/50; pulse 80, regular; respirations 20 per minute. HEENT: Sclerae are anicteric. Heart: Sounds S1, S2. No murmur. Lungs: Clear bilaterally. No rhonchi, rales, or wheezing. Abdomen: Soft. No tenderness elicited. No mass, rebound, or rigidity. Extremities: Edema 1+. IMPRESSION: A 72-year-old male with 1-week history of weakness, fatigue, fever, rigors, dry cough, status post recent diagnostic thoracentesis. 1. Probable community-acquired versus atypical left lower lobe pneumonia. 2. Possible sepsis secondary to pneumonia. 3. Right pleural effusion status post diagnostic thoracentesis. 4. Thrombocytopenia. 5. Azotemia. RECOMMENDATIONS: Await sepsis workup. Empiric antibiotic coverage for possible community-acquired left lower lobe pneumonia with Zithromax and ceftriaxone. Thoracentesis results noted. Pleural fluid analysis consistent with exudate. However, cultures have been negative, as well as Gram stain. We will continue Tamiflu pending influenza swab. Pulmonary follow. Will follow. Thank you for the kind referral. SHANDRA RAMOS M.D. MARLENY/[id number]
--- NOTE | 2017-08-07 12:23 | EKG ---
Test Reason : Blood Pressure : / mmHG Vent. Rate : 078 BPM Atrial Rate : 078 BPM P-R Int : 182 ms QRS Dur : 104 ms QT Int : 386 ms P-R-T Axes : 048 -38 095 degrees QTc Int : 440 ms NORMAL SINUS RHYTHM LEFT AXIS DEVIATION ANTERIOR INFARCT (CITED ON OR BEFORE 06-AUG-2017) ABNORMAL ECG WHEN COMPARED WITH ECG OF 06-AUG-2017 11:50, NO SIGNIFICANT CHANGE WAS FOUND Confirmed by JOSE CRUZ ANDERSON, ROSEMARY ([id number]) on 08/07/2017 12:22:41 PM Referred By: Confirmed By:ROSEMARY BILLINGSLEY MD
[2017-08-07] MEDS: CEFTRIAXONE 2 GM in DEXTROSE 5%-WATER - 100 ML IVPB SCH (13:21)
--- NOTE | 2017-08-07 14:29 | CON.CARD ---
Consult Consult Specialty:: cardiology Referred by:: Elan Reason for Consultation:: Shortness of breath - History of Present Illness Chief Complaint: Fatigue and fever History of Present Illness: The patient is a 72-year-old man with a history of diabetes, hypertension, coronary artery disease, status post multiple stents, systolic heart failure, pulmonary hypertension, recurrent pneumonias, status post recent thoracentesis, now presenting with fatigue and fevers. The patient denies chest pains. No palpitations. Is currently fairly comfortable. 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 No: AFIB Pulmonary: Yes: Pneumonia (03/2016), Other (Chronic right pleural effusion ) Gastrointestinal: Yes: GERD, Irritable Bowel Disease Renal/: Yes: Renal Inusuff, BPH, Renal Calculi Musculoskeletal: Yes: Osteoarthritis Rheumatology: Yes: Gout Endocrine: Yes: Diabetes Mellitus, Other (Hypogonadism, nodular goiter) - Past Surgical History Past Surgical History: Yes: Cataract Removal (bilateral), Hernia Repair ( umbillical) - Alcohol/Substance Use Hx Alcohol Use: No History of Substance Use: reports: None - Smoking History Smoking history: Never smoked Have you smoked in the past 12 months: No Aproximately how many cigarettes per day: 0 If you are a former smoker, when did you quit?: 35 YEARS AGO - Social History ADL: Independent History of Recent Travel: No Home Medications - Allergies Allergies/Adverse Reactions: Allergies Allergy/AdvReac Type Severity Reaction Status Date / Time pioglitazone HCl [From Actos] AdvReac Severe CHF Verified 08/06/17 11:12 - Home Medications Home Medications: Ambulatory Orders Cholecalciferol (Vitamin D3) [Vitamin D3] 1,000 unit PO DAILY 04/03/14 Aspirin [Ecotrin] 81 mg PO DAILY 03/26/16 Vitamin B Complex 1 each PO DAILY 03/26/16 Docusate Sodium 100 mg PO TID capsule 07/18/16 Carvedilol 25 mg PO BID tablet 10/04/16 Glyburide 5 mg PO BID tablet 10/04/16 Sacubitril/Valsartan [Entresto 24 mg-26 mg Tablet] 1 each PO BID tablet Acetaminophen [Tylenol] 650 mg PO QID PRN 11/05/16 Furosemide 40 mg PO DAILY tablet 11/12/16 Gabapentin 300 mg PO BID capsule 11/12/16 Isosorbide Dinitrate 20 mg PO TID tablet 11/12/16 Family Disease History - Family Disease History Family Disease History: Heart Disease: Mother (CHF) Review of Systems - Review of Systems Constitutional: reports: Fever, Lethargy Eyes: reports: No Symptoms HENT: reports: No Symptoms Neck: reports: No Symptoms Cardiovascular: reports: No Symptoms Respiratory: reports: Cough, SOB Gastrointestinal: reports: No Symptoms Genitourinary: reports: No Symptoms Breasts: reports: No Symptoms Reported Musculoskeletal: reports: No Symptoms Integumentary: reports: No Symptoms Neurological: reports: No Symptoms Endocrine: reports: No Symptoms Hematology/Lymphatic: reports: No Symptoms Psychiatric: reports: No Symptoms Vital Signs: Vital Signs Temperature 98.0 F 08/07/17 10:00 Pulse Rate 81 08/07/17 13:20 Respiratory Rate 20 08/07/17 13:20 Blood Pressure 100/51 08/07/17 13:20 O2 Sat by Pulse Oximetry (%) 95 08/06/17 21:00 Constitutional: Yes: Well Nourished, No Distress, Calm Eyes: Yes: WNL, Conjunctiva Clear, EOM Intact, Tearing HENT: Yes: WNL, Atraumatic, Normocephalic Neck: Yes: WNL, Supple, Trachea Midline Respiratory: Yes: Regular, Accessory Muscle Use, Cough, Rhonchi, SOB Gastrointestinal: Yes: WNL, Normal Bowel Sounds, Soft Renal/: Yes: WNL Cardiovascular: Yes: WNL, Regular Rate and Rhythm JVD: No Carotid Bruit: No PMI: Non-Displaced Heart Sounds: Yes: S1, S2 Murmur: Yes: Systolic Murmur, Grade 2 Musculoskeletal: Yes: WNL Extremities: Yes: WNL Edema: No Peripheral Pulses: 1+ Left Carotid, 1+ Right Carotid, 1+ Left Femoral, 1+ Right Femoral, 1+ Left Popliteal, 1+ Right Popliteal, 1+ Left Doralis Pedis, 1+ Right Dorsalis Pedis Integumentary: Yes: WNL Neurological: Yes: WNL, Alert, Oriented ...Motor Strength: WNL Psychiatric: Yes: WNL - Other Data Labs, Other Data: CBC, BMP 08/07/17 06:00 08/07/17 06:00 INR, PTT INR 1.13 (0.82-1.09) 08/06/17 12:25 Assessment/Plan 72-year-old man, we've a history of diabetes, hypertension, coronary artery disease and multiple stents, systolic heart failure, chronic kidney disease, pulmonary hypertension, recurrent pneumonias, status post recent thoracentesis, now presenting with fever and fatigue. Likely recurrent pneumonia. There is no evidence of ischemia nor acute coronary syndrome. No angina. No acute ECG changes. The patient is in sinus rhythm. Continue antibiotics as currently. Salt and fluid restrictions. Continue home medications. There is no need for further cardiac workup at this point. Is no need for cardiac monitoring. The patient is stable from the cardiac standpoint. Please do not hesitate to call us PRN
[2017-08-07] MEDS: AZITHROMYCIN IVPB 500 MG in DEXTROSE 5%-WATER - 250 ML IVPB SCH (14:46)
[2017-08-07] MEDS ORDERED: PIPERACILLIN/TAZOB 2.25 GM 2.25 GM in DEXTROSE 5%-WATER - 50 ML IVPB SCH (15:00)
--- NOTE | 2017-08-07 16:48 | PN ---
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 (short form) - Note 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: Subjective: The patient was seen and examined at the bedside, he states he is feeling better today and would like to try and get out of bed and walk. Current Medications Generic Name Dose Route Start Last Admin Trade Name Amy PRN Reason Stop Dose Admin Allopurinol 100 mg 08/07/17 10:00 08/07/17 10:30 Zyloprim - PO 100 mg DAILY MARY Administration Aspirin 81 mg 08/07/17 10:00 08/07/17 10:29 Ecotrin - PO 81 mg DAILY MARY Administration Atorvastatin Calcium 80 mg 08/06/17 22:00 08/06/17 22:19 Lipitor - PO 80 mg HS MARY Administration Carvedilol 25 mg 08/06/17 22:00 08/07/17 10:25 Coreg - PO Not Given BID MARY Clopidogrel Bisulfate 75 mg 08/07/17 10:00 08/07/17 10:29 Plavix - PO 75 mg DAILY MARY Administration Docusate Sodium 100 mg 08/06/17 22:00 08/07/17 13:20 Colace - PO Not Given TID MARY Gabapentin 300 mg 08/06/17 22:00 08/07/17 10:29 Neurontin - PO 300 mg BID MARY Administration Heparin Sodium (Porcine) 5,000 unit 08/06/17 22:00 08/07/17 13:21 Heparin - SQ 5,000 unit TID MARY Administration Sodium Chloride 1,000 mls @ 42 mls/hr 08/06/17 17:45 08/07/17 18:19 Normal Saline - IV Not Given ASDIR MARY Azithromycin 500 mg/ Dextrose 250 mls @ 250 mls/hr 08/07/17 11:30 08/07/17 14 :46 IVPB 250 mls/hr DAILY MARY Administration Ceftriaxone Sodium 2 gm/ 100 mls @ 200 mls/hr 08/07/17 11:30 08/07/17 13:21 Dextrose IVPB 200 mls/hr DAILY MARY Administration Insulin Aspart 1 vial 08/06/17 16:30 08/07/17 18:20 Novolog Vial Sliding Scale - SQ Not Given ACHS [facility] Protocol Isosorbide Dinitrate 20 mg 08/07/17 13:00 08/07/17 18:15 Isordil - PO Not Given TIDISORDIL [facility] Oseltamivir Phosphate 30 mg 08/06/17 22:00 08/07/17 10:30 Tamiflu - PO 08/11/17 10:01 30 mg BID MARY Administration Objective: Vital Signs Period Temp Pulse Resp BP Sys/Desai Pulse Ox Last 24 Hr 97.9 F-99.7 F 66-86 18-22 98-109/48-56 95-99 Physical Exam: General: NAD, A&Ox3 Lungs: Diminished breath sounds b/l Heart: RRR, S1S2 Abd: Soft, non-tender, non-distended. Normoactive bowel sounds Ext: Warm, well-perfused. 2+ DP/PT bilaterally Neuro: CN 2-12 intact CBCD WBC 8.6 K/mm3 (4.0-10.0) 08/07/17 06:00 RBC 3.25 M/mm3 (4.00-5.60) L 08/07/17 06:00 Hgb 10.5 GM/dL (11.7-16.9) L 08/07/17 06:00 Hct 30.5 % (35.4-49) L 08/07/17 06:00 MCV 93.8 fl (80-96) 08/07/17 06:00 MCHC 34.3 g/dl (32.0-35.9) 08/07/17 06:00 RDW 14.7 % (11.9-15.9) 08/07/17 06:00 Plt Count 117 K/MM3 (134-434) L 08/07/17 06:00 MPV 9.0 fl (7.5-11.1) 08/07/17 06:00 CMP Sodium 143 mmol/L (136-145) 08/07/17 06:00 Potassium 5.0 mmol/L (3.5-5.1) 08/07/17 06:00 Chloride 112 mmol/L (98-107) H 08/07/17 06:00 Carbon Dioxide 21 mmol/L (21-32) 08/07/17 06:00 Anion Gap 10 (8-16) 08/07/17 06:00 BUN 72 mg/dL (7-18) H 08/07/17 06:00 Creatinine 2.1 mg/dL (0.7-1.3) H 08/07/17 06:00 Creat Clearance w eGFR 31.03 (>60) 08/07/17 06:00 Random Glucose 55 mg/dL (74-106) L D 08/07/17 06:00 Calcium 7.8 mg/dL (8.5-10.1) L 08/07/17 06:00 Total Bilirubin 0.8 mg/dL (0.2-1.0) 08/07/17 06:00 AST 14 U/L (15-37) L 08/07/17 06:00 ALT 26 U/L (12-78) 08/07/17 06:00 Alkaline Phosphatase 90 U/L (45-117) D 08/07/17 06:00 Total Protein 5.4 g/dl (6.4-8.2) L 08/07/17 06:00 Albumin 2.1 g/dl (3.4-5.0) L 08/07/17 06:00 CARDIAC ENZYMES Troponin I 0.02 ng/ml (0.00-0.05) D 08/06/17 12:25 Microbiology 08/06/17 12:25 Blood - Peripheral Venous Blood Culture - Preliminary NO GROWTH OBTAINED AFTER 24 HOURS, INCUBATION TO CONTINUE FOR 4 DAYS. 08/06/17 12:25 Blood - Peripheral Venous Blood Culture - Preliminary NO GROWTH OBTAINED AFTER 24 HOURS, INCUBATION TO CONTINUE FOR 4 DAYS. 08/06/17 18:30 Nasopharyngeal Swab Influenza Types A,B Antigen (HARDY) - Preliminary 08/06/17 18:30 Nasopharyngeal Swab - Preliminary Assessment: This is a 72 year old female with PMHx of HTN, hyperlipidemia, CAD s /p stenting, recurrent pneumonia, repeated thoratcentesis, IDDM, systolic heart failure, pulmonary HTN, recurrent pneumonia, IDDM, gout, who presented to the ED with generalized weakness, fever, chills, and fatigue since undergoing a thoracentesis on 07/31 Plan: 1) Sepsis 2/2 pneumonia - CAP vs. atypical LLL pneumonia - S/p thoracentesis on 07/31 appears to be exudative: Gram stain and cultures negative - 06/04/17 pleural effusion: no malignant cells identified. Reactive mesothelial cells, histiocytes and lymphocytes - CT chest 08/07/17: right middle lobe atelectasis. Also small amount of platelike atelectasis within the right upper lobe. Patchy consolidation left lower lobe, moderate right pleural effusion and trace left pleural effusion. Mild mediastinal lymphadenopathy and trace pericardial effusion - Borderline/enlarged mediastinal lymph nodes noted on all prior CT chest dating back to 02/27/16 - Continue empiric zithromax, ceftriaxone, tamiflu - Appreciate ID consult - Appreciate pulmonary consult 2) SPIKE - Cr baseline ~1.5 - Cr now 2.2->2.1 - F/u urine electrolytes - F/u kidney/bladder ultrasound 3) HTN - Now with hypotension - Hold all antihypertensives at this time 4) CAD s/p stenting - Continue ASA - Continue Plavix - Continue Lipitor - Continue isordil
[2017-08-07] MEDS ORDERED: VANCOMYCIN 1,000 MG in DEXTROSE 5%-WATER - 250 ML IVPB SCH (18:00)
[2017-08-07] MEDS: SODIUM CHLORIDE 1,000 ML IV SCH (18:19)
[2017-08-07] MEDS ORDERED: INSULIN (NOVOLOG) ASPART 100 UNITS/ML 10ML VIAL ONE (21:43)
[2017-08-07] MEDS: ATORVASTATIN CA 80 MG TABLET (FP) PO SCH (22:14)
[2017-08-08] MEDS: DOCUSATE SODIUM 100 MG CAPSULE (FP) PO SCH ×3 (06:22→21:39)
[2017-08-08] MEDS: HEPARIN NA (PORCINE) 5,000 UNITS/ML 1ML VIAL SQ SCH ×3 (06:22→21:40)
[2017-08-08] MEDS: INSULIN SLIDING SCALE (NOVOLOG) 1 VIAL SQ SCH ×4 (06:27→21:46)
[2017-08-08] MEDS ORDERED: PT OWN MED DRAWER 7, Y5N ONE ×2 (08:26→09:35)
[2017-08-08] MEDS: ISOSORBIDE DINITRATE 20 MG TABLET (FP) PO SCH ×3 (08:32→18:03)
[2017-08-08 08:46] LABS: BASO % 0.4 % (0-2.0); EOS % 0.7 % (0-4.5); HEMATOCRIT 34.7 % (35.4-49); HEMOGLOBIN 11.7 GM/dL (11.7-16.9); LYMPH % 11.2 % (8-40); MCH 31.8 pg (25.7-33.7); MCHC 33.6 g/dl (32.0-35.9); MEAN CELL VOLUME 94.7 fl (80-96); MEAN PLT VOLUME 8.7 fl (7.5-11.1); MONO % 7.4 % (3.8-10.2); NEUT % 80.3 % (42.8-82.8); PLATELET COUNT 143 K/MM3 (134-434); RBC 3.67 M/mm3 (4.00-5.60); RDW 14.9 % (11.9-15.9); WHITE BLOOD COUNT 9.2 K/mm3 (4.0-10.0)
[2017-08-08 09:10] LABS: ANION GAP 9 (8-16); BLOOD UREA NITROGEN 71 mg/dL (7-18); CALCIUM 7.6 mg/dL (8.5-10.1); CHLORIDE 112 mmol/L (98-107); CO2 21 mmol/L (21-32); CREATININE 2.2 mg/dL (0.7-1.3); GLUCOSE,RANDOM 94 mg/dL (74-106); POTASSIUM 4.6 mmol/L (3.5-5.1); SODIUM 142 mmol/L (136-145)
[2017-08-08] MEDS: ASPIRIN COATED 81 MG TABLET.EC PO SCH (09:41)
[2017-08-08] MEDS: GABAPENTIN 300 MG CAPSULE (FP) PO SCH ×2 (09:42→21:39)
[2017-08-08] MEDS: CLOPIDOGREL BISULFATE 75 MG TABLET (FP) PO SCH (09:42)
[2017-08-08] MEDS: SACUBITRIL/VALSARTAN 24 MG-26 MG TABLET PO SCH ×2 (09:42→21:39)
[2017-08-08] MEDS: CEFTRIAXONE 2 GM in DEXTROSE 5%-WATER - 100 ML IVPB SCH (09:43)
[2017-08-08] MEDS: ALLOPURINOL 100 MG TABLET (FP) PO SCH (09:43)
[2017-08-08] MEDS: AZITHROMYCIN IVPB 500 MG in DEXTROSE 5%-WATER - 250 ML IVPB SCH (09:44)
--- NOTE | 2017-08-08 10:32 | PN ---
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 (short form) - Note 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: Subjective: The patient was seen and examined at the bedside, he states he is feeling better today and would like to try and get out of bed and walk. Current Medications Generic Name Dose Route Start Last Admin Trade Name Amy PRN Reason Stop Dose Admin Allopurinol 100 mg 08/07/17 10:00 08/07/17 10:30 Zyloprim - PO 100 mg DAILY MARY Administration Aspirin 81 mg 08/07/17 10:00 08/07/17 10:29 Ecotrin - PO 81 mg DAILY MARY Administration Atorvastatin Calcium 80 mg 08/06/17 22:00 08/06/17 22:19 Lipitor - PO 80 mg HS MARY Administration Carvedilol 25 mg 08/06/17 22:00 08/07/17 10:25 Coreg - PO Not Given BID MARY Clopidogrel Bisulfate 75 mg 08/07/17 10:00 08/07/17 10:29 Plavix - PO 75 mg DAILY MARY Administration Docusate Sodium 100 mg 08/06/17 22:00 08/07/17 13:20 Colace - PO Not Given TID MARY Gabapentin 300 mg 08/06/17 22:00 08/07/17 10:29 Neurontin - PO 300 mg BID MARY Administration Heparin Sodium (Porcine) 5,000 unit 08/06/17 22:00 08/07/17 13:21 Heparin - SQ 5,000 unit TID MARY Administration Sodium Chloride 1,000 mls @ 42 mls/hr 08/06/17 17:45 08/07/17 18:19 Normal Saline - IV Not Given ASDIR MARY Azithromycin 500 mg/ Dextrose 250 mls @ 250 mls/hr 08/07/17 11:30 08/07/17 14 :46 IVPB 250 mls/hr DAILY MARY Administration Ceftriaxone Sodium 2 gm/ 100 mls @ 200 mls/hr 08/07/17 11:30 08/07/17 13:21 Dextrose IVPB 200 mls/hr DAILY MARY Administration Insulin Aspart 1 vial 08/06/17 16:30 08/07/17 18:20 Novolog Vial Sliding Scale - SQ Not Given ACHS PENDING SALE TO [facility] Protocol Isosorbide Dinitrate 20 mg 08/07/17 13:00 08/07/17 18:15 Isordil - PO Not Given TIDISORDIL PENDING SALE TO [facility] Oseltamivir Phosphate 30 mg 08/06/17 22:00 08/07/17 10:30 Tamiflu - PO 08/11/17 10:01 30 mg BID MARY Administration Objective: Vital Signs Period Temp Pulse Resp BP Sys/Desai Pulse Ox Last 24 Hr 97.9 F-99.7 F 66-86 18-22 98-109/48-56 95-99 Physical Exam: General: NAD, A&Ox3 Lungs: Diminished breath sounds b/l Heart: RRR, S1S2 Abd: Soft, non-tender, non-distended. Normoactive bowel sounds Ext: Warm, well-perfused. 2+ DP/PT bilaterally Neuro: CN 2-12 intact CBCD WBC 8.6 K/mm3 (4.0-10.0) 08/07/17 06:00 RBC 3.25 M/mm3 (4.00-5.60) L 08/07/17 06:00 Hgb 10.5 GM/dL (11.7-16.9) L 08/07/17 06:00 Hct 30.5 % (35.4-49) L 08/07/17 06:00 MCV 93.8 fl (80-96) 08/07/17 06:00 MCHC 34.3 g/dl (32.0-35.9) 08/07/17 06:00 RDW 14.7 % (11.9-15.9) 08/07/17 06:00 Plt Count 117 K/MM3 (134-434) L 08/07/17 06:00 MPV 9.0 fl (7.5-11.1) 08/07/17 06:00 CMP Sodium 143 mmol/L (136-145) 08/07/17 06:00 Potassium 5.0 mmol/L (3.5-5.1) 08/07/17 06:00 Chloride 112 mmol/L (98-107) H 08/07/17 06:00 Carbon Dioxide 21 mmol/L (21-32) 08/07/17 06:00 Anion Gap 10 (8-16) 08/07/17 06:00 BUN 72 mg/dL (7-18) H 08/07/17 06:00 Creatinine 2.1 mg/dL (0.7-1.3) H 08/07/17 06:00 Creat Clearance w eGFR 31.03 (>60) 08/07/17 06:00 Random Glucose 55 mg/dL (74-106) L D 08/07/17 06:00 Calcium 7.8 mg/dL (8.5-10.1) L 08/07/17 06:00 Total Bilirubin 0.8 mg/dL (0.2-1.0) 08/07/17 06:00 AST 14 U/L (15-37) L 08/07/17 06:00 ALT 26 U/L (12-78) 08/07/17 06:00 Alkaline Phosphatase 90 U/L (45-117) D 08/07/17 06:00 Total Protein 5.4 g/dl (6.4-8.2) L 08/07/17 06:00 Albumin 2.1 g/dl (3.4-5.0) L 08/07/17 06:00 CARDIAC ENZYMES Troponin I 0.02 ng/ml (0.00-0.05) D 08/06/17 12:25 Microbiology 08/06/17 12:25 Blood - Peripheral Venous Blood Culture - Preliminary NO GROWTH OBTAINED AFTER 24 HOURS, INCUBATION TO CONTINUE FOR 4 DAYS. 08/06/17 12:25 Blood - Peripheral Venous Blood Culture - Preliminary NO GROWTH OBTAINED AFTER 24 HOURS, INCUBATION TO CONTINUE FOR 4 DAYS. 08/06/17 18:30 Nasopharyngeal Swab Influenza Types A,B Antigen (HARDY) - Preliminary 08/06/17 18:30 Nasopharyngeal Swab - Preliminary Assessment: This is a 72 year old female with PMHx of HTN, hyperlipidemia, CAD s /p stenting, recurrent pneumonia, repeated thoratcentesis, IDDM, systolic heart failure, pulmonary HTN, recurrent pneumonia, IDDM, gout, who presented to the ED with generalized weakness, fever, chills, and fatigue since undergoing a thoracentesis on 07/31 Plan: 1) Sepsis 2/2 pneumonia - CAP vs. atypical LLL pneumonia - S/p thoracentesis on 07/31 appears to be exudative: Gram stain and cultures negative - 06/04/17 pleural effusion: no malignant cells identified. Reactive mesothelial cells, histiocytes and lymphocytes - CT chest 08/07/17: right middle lobe atelectasis. Also small amount of platelike atelectasis within the right upper lobe. Patchy consolidation left lower lobe, moderate right pleural effusion and trace left pleural effusion. Mild mediastinal lymphadenopathy and trace pericardial effusion - Borderline/enlarged mediastinal lymph nodes noted on all prior CT chest dating back to 02/27/16 - Continue empiric zithromax, ceftriaxone, tamiflu - Appreciate ID consult - Appreciate pulmonary consult 2) SPIKE - Cr baseline ~1.5 - Likely 2/2 hypovolemia - Cr now 2.2 - Kidney ultrasound: morphologically normal kidneys, no hydronephrosis - F/u urine electrolytes 3) HTN - BP wnl, continue to monitor - Hold all antihypertensives at this time, patient with periods of hypotension 4) CAD s/p stenting - Continue ASA - Continue Plavix - Continue Lipitor - Continue isordil Visit type - Emergency Visit Emergency Visit: Yes ED Registration Date: 08/06/17 Care time: The patient presented to the Emergency Department on the above date and was hospitalized for further evaluation of their emergent condition. - New Patient This patient is new to me today: No - Critical Care Critical Care patient: No
[2017-08-08] MEDS: OSELTAMIVIR PHOSPHATE 30 MG CAPSULE PO SCH ×2 (10:54→21:38)
[2017-08-08] MEDS: SODIUM CHLORIDE 1,000 ML IV SCH ×2 (11:08→20:01)
--- NOTE | 2017-08-08 15:08 | PN ---
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, Physician History of Present Illness: PULMONARY ALERT,OOB-CHAIR,FEELING BETTER,LESS COUGH,LESS DYSPNEIC - Current Medication List Current Medications: Active Medications Allopurinol (Zyloprim -) 100 mg PO DAILY [facility] Last Admin: 08/08/17 09:43 Dose: 100 mg Aspirin (Ecotrin -) 81 mg PO DAILY [facility] Last Admin: 08/08/17 09:41 Dose: 81 mg Atorvastatin Calcium (Lipitor -) 80 mg PO HS [facility] Last Admin: 08/07/17 22:14 Dose: 80 mg Clopidogrel Bisulfate (Plavix -) 75 mg PO DAILY [facility] Last Admin: 08/08/17 09:42 Dose: 75 mg Docusate Sodium (Colace -) 100 mg PO TID [facility] Last Admin: 08/08/17 13:52 Dose: Not Given Gabapentin (Neurontin -) 300 mg PO BID [facility] Last Admin: 08/08/17 09:42 Dose: 300 mg Heparin Sodium (Porcine) (Heparin -) 5,000 unit SQ TID [facility] Last Admin: 08/08/17 13:52 Dose: 5,000 unit Sodium Chloride (Normal Saline -) 1,000 mls @ 42 mls/hr IV ASDIR [facility] Last Admin: 08/08/17 11:08 Dose: 42 mls/hr Azithromycin 500 mg/ Dextrose 250 mls @ 250 mls/hr IVPB DAILY [facility] Last Admin: 08/08/17 09:44 Dose: 250 mls/hr Ceftriaxone Sodium 2 gm/ (Dextrose) 100 mls @ 200 mls/hr IVPB DAILY [facility] Last Admin: 08/08/17 09:43 Dose: 200 mls/hr Insulin Aspart (Novolog Vial Sliding Scale -) 1 vial SQ ACHS [facility] PRN Reason: Protocol Last Admin: 08/08/17 11:31 Dose: 4 units Isosorbide Dinitrate (Isordil -) 20 mg PO TIDISORDIL [facility] Last Admin: 08/08/17 13:04 Dose: Not Given Oseltamivir Phosphate (Tamiflu -) 30 mg PO BID [facility] Stop: 08/11/17 10:01 Last Admin: 08/08/17 10:54 Dose: 30 mg - Objective Vital Signs: Vital Signs Temperature 97.7 F 08/08/17 14:22 Pulse Rate 70 08/08/17 14:22 Respiratory Rate 18 08/08/17 14:22 Blood Pressure 101/37 08/08/17 14:22 O2 Sat by Pulse Oximetry (%) 99 08/07/17 21:00 Constitutional: Yes: Well Nourished, Calm Eyes: Yes: WNL HENT: Yes: WNL Neck: Yes: WNL Cardiovascular: Yes: Regular Rate and Rhythm, S1, S2 Respiratory: Yes: Rales (CRACKLES LEFT BASE) Gastrointestinal: Yes: Normal Bowel Sounds, Soft Extremities: Yes: WNL Edema: No Labs: CBC, BMP 08/08/17 08:30 08/08/17 08:30 INR, PTT INR 1.13 (0.82-1.09) 08/06/17 12:25 - ....Imaging Cat Scan: Report Reviewed, Image Reviewed (LLL INFILTRATE,R PLEURAL EFFUSION) Assessment/Plan Problem List - Problems (1) Pneumonia Code(s): J18.9 - PNEUMONIA, UNSPECIFIED ORGANISM Qualifiers: Pneumonia type: due to unspecified organism Laterality: unspecified laterality Lung location: unspecified part of lung Qualified Code(s): J18.9 - Pneumonia, unspecified organism (2) CHF (congestive heart failure) Code(s): I50.9 - HEART FAILURE, UNSPECIFIED (3) Chronic left systolic heart failure Code(s): I50.22 - CHRONIC SYSTOLIC (CONGESTIVE) HEART FAILURE (4) Diabetes Code(s): E11.9 - TYPE 2 DIABETES MELLITUS WITHOUT COMPLICATIONS Qualifiers: Diabetes mellitus type: type 2 Diabetes mellitus complication status: with kidney complications Diabetes mellitus complication detail: with chronic kidney disease (5) Pleural effusion Code(s): J90 - PLEURAL EFFUSION, NOT ELSEWHERE CLASSIFIED (6) Pulmonary hypertension Code(s): I27.2 - OTHER SECONDARY PULMONARY HYPERTENSION * DO NOT USE * (7) CAD (coronary artery disease) Code(s): I25.10 - ATHSCL HEART DISEASE OF [place] CORONARY ARTERY W/O ANG PCTRS Qualifiers: Coronary Disease-Associated Artery/Lesion type: [place] artery [place] vs. transplanted heart: [place] heart Associated angina: with unspecified angina Qualified Code(s): I25.119 - Atherosclerotic heart disease of [place] coronary artery with unspecified angina pectoris (8) Insulin dependent diabetes mellitus Code(s): E11.9 - TYPE 2 DIABETES MELLITUS WITHOUT COMPLICATIONS; Z79.4 - [employer] (CURRENT) USE OF INSULIN Assessment/Plan RECENT THORACENTESIS LIKELY NOT RESPONSIBLE FOR PRESENT ADMISSION LEFT LOWER LOBE INFILTRATE RIGHT PLEURAL EFFUSION LIKELY ? EXUDATE CHF ATELECTASIS AGREE WITH ANTIBIOTIC MONITOR LYTES,RENAL FUNCTION O2 F/U CHEST X-RAYS DR JENSEN
--- NOTE | 2017-08-08 15:42 | PN ---
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, Physician History of Present Illness: OOB in chair More alert No complaints offerred Denies chest pain/ dyspnea Occasional cough Temps down afebrile WBC WNL - Current Medication List Current Medications: Active Medications Allopurinol (Zyloprim -) 100 mg PO DAILY [facility] Last Admin: 08/08/17 09:43 Dose: 100 mg Aspirin (Ecotrin -) 81 mg PO DAILY [facility] Last Admin: 08/08/17 09:41 Dose: 81 mg Atorvastatin Calcium (Lipitor -) 80 mg PO HS [facility] Last Admin: 08/07/17 22:14 Dose: 80 mg Clopidogrel Bisulfate (Plavix -) 75 mg PO DAILY [facility] Last Admin: 08/08/17 09:42 Dose: 75 mg Docusate Sodium (Colace -) 100 mg PO TID [facility] Last Admin: 08/08/17 13:52 Dose: Not Given Gabapentin (Neurontin -) 300 mg PO BID [facility] Last Admin: 08/08/17 09:42 Dose: 300 mg Heparin Sodium (Porcine) (Heparin -) 5,000 unit SQ TID [facility] Last Admin: 08/08/17 13:52 Dose: 5,000 unit Sodium Chloride (Normal Saline -) 1,000 mls @ 42 mls/hr IV ASDIR [facility] Last Admin: 08/08/17 11:08 Dose: 42 mls/hr Azithromycin 500 mg/ Dextrose 250 mls @ 250 mls/hr IVPB DAILY [facility] Last Admin: 08/08/17 09:44 Dose: 250 mls/hr Ceftriaxone Sodium 2 gm/ (Dextrose) 100 mls @ 200 mls/hr IVPB DAILY [facility] Last Admin: 08/08/17 09:43 Dose: 200 mls/hr Insulin Aspart (Novolog Vial Sliding Scale -) 1 vial SQ ACHS [facility] PRN Reason: Protocol Last Admin: 08/08/17 11:31 Dose: 4 units Isosorbide Dinitrate (Isordil -) 20 mg PO TIDISORDIL [facility] Last Admin: 08/08/17 13:04 Dose: Not Given Oseltamivir Phosphate (Tamiflu -) 30 mg PO BID [facility] Stop: 08/11/17 10:01 Last Admin: 08/08/17 10:54 Dose: 30 mg - Objective Vital Signs: Vital Signs Temperature 97.7 F 08/08/17 14:22 Pulse Rate 70 08/08/17 14:22 Respiratory Rate 18 08/08/17 14:22 Blood Pressure 101/37 08/08/17 14:22 O2 Sat by Pulse Oximetry (%) 99 08/07/17 21:00 Constitutional: Yes: No Distress Eyes: Yes: Conjunctiva Clear Cardiovascular: Yes: Regular Rate and Rhythm, S1, S2 Respiratory: Yes: Diminished Gastrointestinal: Yes: Normal Bowel Sounds, Soft. No: Tenderness Edema: Yes Labs: CBC, BMP 08/08/17 08:30 08/08/17 08:30 INR, PTT INR 1.13 (0.82-1.09) 08/06/17 12:25 Assessment/Plan LLL pneumonia R pleural effusion s/p thoracentesis Azotemia Thrombocytopenia- resolved Await c/s Continue empiric zithromax/ ceftriaxone/ Tamiflu
--- NOTE | 2017-08-08 16:42 | CONSULT ---
Consult Consult Specialty:: Nephrology Reason for Consultation:: SPIKE - History of Present Illness Chief Complaint: fatigue, weakness and cough History of Present Illness: Pt is a 72 year old male with pmhx of DM, CHF, CAD, HTN, CKD and HLD who presents to the ER with one week of fatigue and fever. He complains of cough that is dry. He was found to have elevated creatinine and I was called to evaluate him. He says that he feels better today. He has not followed with me in the office. He denies nsaid use. He denies dysuria or hematuria. - History Source History Provided By: Patient - Past Medical History Cardio/Vascular: Yes: CAD (prior anterolateral SD 03/1995 w/ PCI of LAD & ramus , PCI of LAD 05/1996 (with 100% occluded ramus and patent RCA), rotoblator & PCI w/ Xience stent prox LAD & prox/mid Cfx 07/30/16), CHF, Hyperlipdemia, SD ( anterolateral SD 1994) Pulmonary: Yes: Pneumonia (03/2016), Other (Chronic right pleural effusion ) Gastrointestinal: Yes: GERD, Irritable Bowel Disease Renal/: Yes: Renal Inusuff, BPH, Renal Calculi Musculoskeletal: Yes: Osteoarthritis Rheumatology: Yes: Gout Endocrine: Yes: Diabetes Mellitus, Other (Hypogonadism, nodular goiter) - Past Surgical History Past Surgical History: Yes: Cataract Removal (bilateral), Hernia Repair ( umbillical) - Alcohol/Substance Use Hx Alcohol Use: No History of Substance Use: reports: None - Smoking History Smoking history: Never smoked Have you smoked in the past 12 months: No Aproximately how many cigarettes per day: 0 If you are a former smoker, when did you quit?: 35 YEARS AGO - Social History ADL: Independent History of Recent Travel: No Home Medications - Allergies Allergies/Adverse Reactions: Allergies Allergy/AdvReac Type Severity Reaction Status Date / Time pioglitazone HCl [From Actos] AdvReac Severe CHF Verified 08/06/17 11:12 - Home Medications Home Medications: Ambulatory Orders Cholecalciferol (Vitamin D3) [Vitamin D3] 1,000 unit PO DAILY 04/03/14 Aspirin [Ecotrin] 81 mg PO DAILY 03/26/16 Vitamin B Complex 1 each PO DAILY 03/26/16 Docusate Sodium 100 mg PO TID capsule 07/18/16 Carvedilol 25 mg PO BID tablet 10/04/16 Glyburide 5 mg PO BID tablet 10/04/16 Sacubitril/Valsartan [Entresto 24 mg-26 mg Tablet] 1 each PO BID tablet Acetaminophen [Tylenol] 650 mg PO QID PRN 11/05/16 Furosemide 40 mg PO DAILY tablet 11/12/16 Gabapentin 300 mg PO BID capsule 11/12/16 Isosorbide Dinitrate 20 mg PO TID tablet 11/12/16 Family Disease History - Family Disease History Family Disease History: Heart Disease: Mother (CHF) Review of Systems - Review of Systems Constitutional: reports: Chills, Fever, Malaise Eyes: reports: No Symptoms HENT: reports: No Symptoms Neck: reports: No Symptoms Cardiovascular: reports: No Symptoms Respiratory: reports: Cough Gastrointestinal: reports: No Symptoms Genitourinary: reports: No Symptoms Musculoskeletal: reports: No Symptoms Integumentary: reports: No Symptoms Neurological: reports: No Symptoms Endocrine: reports: No Symptoms Hematology/Lymphatic: reports: No Symptoms Psychiatric: reports: No Symptoms Physical Exam Vital Signs: Vital Signs Temperature 97.7 F 08/08/17 14:22 Pulse Rate 70 08/08/17 14:22 Respiratory Rate 18 08/08/17 14:22 Blood Pressure 101/37 08/08/17 14:22 O2 Sat by Pulse Oximetry (%) 99 08/07/17 21:00 Constitutional: Yes: Calm Eyes: Yes: Conjunctiva Clear HENT: Yes: Atraumatic Cardiovascular: Yes: S1, S2 Respiratory: Yes: CTA Bilaterally Gastrointestinal: Yes: Normal Bowel Sounds, Soft Renal/: Yes: WNL Musculoskeletal: Yes: WNL Edema: No Neurological: Yes: Oriented Psychiatric: Yes: Oriented Labs: CBC, BMP 08/08/17 08:30 08/08/17 08:30 Laboratory Tests 11/20/16 03/18/17 07/07/17 14:13 13:30 10:00 WBC Hgb VBG pH POC VBG pCO2 POC VBG pO2 Mixed VBG HCO3 BUN Creatinine 1.2 D 1.4 H 1.5 H Urine Protein Urine Blood 08/06/17 08/06/17 08/06/17 12:25 12:25 12:35 WBC Hgb VBG pH 7.34 POC VBG pCO2 42.5 POC VBG pO2 21.0 L Mixed VBG HCO3 22.3 BUN Creatinine 2.2 H D Urine Protein 1+ H Urine Blood 2+ H 08/07/17 08/07/17 08/08/17 06:00 06:00 08:30 WBC 9.2 Hgb 10.5 L 11.7 D VBG pH POC VBG pCO2 POC VBG pO2 Mixed VBG HCO3 BUN Creatinine 2.1 H Urine Protein Urine Blood 08/08/17 08:30 WBC Hgb VBG pH POC VBG pCO2 POC VBG pO2 Mixed VBG HCO3 BUN 71 H Creatinine 2.2 H Urine Protein Urine Blood Imaging - Results Chest X-ray: Report Reviewed Ultrasound: Report Reviewed Problem List - Problems (1) Pneumonia Code(s): J18.9 - PNEUMONIA, UNSPECIFIED ORGANISM Qualifiers: Pneumonia type: due to unspecified organism Laterality: unspecified laterality Lung location: unspecified part of lung Qualified Code(s): J18.9 - Pneumonia, unspecified organism (2) Acute kidney failure Code(s): N17.9 - ACUTE KIDNEY FAILURE, UNSPECIFIED Qualifiers: Acute renal failure type: with other specified pathological lesion Qualified Code(s): N17.8 - Other acute kidney failure (3) CHF (congestive heart failure) Code(s): I50.9 - HEART FAILURE, UNSPECIFIED Assessment/Plan Current Medications Generic Name Dose Route Start Last Admin Trade Name Freq PRN Reason Stop Dose Admin Allopurinol 100 mg 08/07/17 10:00 08/08/17 09:43 Zyloprim - PO 100 mg DAILY MARY Administration Aspirin 81 mg 08/07/17 10:00 08/08/17 09:41 Ecotrin - PO 81 mg DAILY MARY Administration Atorvastatin Calcium 80 mg 08/06/17 22:00 08/07/17 22:14 Lipitor - PO 80 mg HS MARY Administration Clopidogrel Bisulfate 75 mg 08/07/17 10:00 08/08/17 09:42 Plavix - PO 75 mg DAILY MARY Administration Docusate Sodium 100 mg 08/06/17 22:00 08/08/17 13:52 Colace - PO Not Given TID MARY Gabapentin 300 mg 08/06/17 22:00 08/08/17 09:42 Neurontin - PO 300 mg BID MARY Administration Heparin Sodium (Porcine) 5,000 unit 08/06/17 22:00 08/08/17 13:52 Heparin - SQ 5,000 unit TID MARY Administration Sodium Chloride 1,000 mls @ 42 mls/hr 08/06/17 17:45 08/08/17 11:08 Normal Saline - IV 42 mls/hr ASDIR MARY Administration Azithromycin 500 mg/ Dextrose 250 mls @ 250 mls/hr 08/07/17 11:30 08/08/17 09 :44 IVPB 250 mls/hr DAILY MARY Administration Ceftriaxone Sodium 2 gm/ 100 mls @ 200 mls/hr 08/07/17 11:30 08/08/17 09:43 Dextrose IVPB 200 mls/hr DAILY [facility]ARY Administration Insulin Aspart 1 vial 08/06/17 16:30 08/08/17 11:31 Novolog Vial Sliding Scale - SQ 4 units ACHS MARY Administration Protocol Isosorbide Dinitrate 20 mg 08/07/17 13:00 08/08/17 13:04 Isordil - PO Not Given TIDISORDIL MARY Oseltamivir Phosphate 30 mg 08/06/17 22:00 08/08/17 10:54 Tamiflu - PO 08/11/17 10:01 30 mg BID MARY Administration Impression 1. CKD with acute component 2. hx CHF 3. CAD 4. DM 5. HTN 6. hyperlipidemia 7. BPH 8. pleural effusions 9. 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
[2017-08-08] MEDS: ATORVASTATIN CA 80 MG TABLET (FP) PO SCH (21:38)
[2017-08-09] MEDS: HEPARIN NA (PORCINE) 5,000 UNITS/ML 1ML VIAL SQ SCH ×3 (05:43→21:16)
[2017-08-09] MEDS: DOCUSATE SODIUM 100 MG CAPSULE (FP) PO SCH ×3 (05:44→21:15)
[2017-08-09] MEDS: SODIUM CHLORIDE 1,000 ML IV SCH (05:59)
[2017-08-09] MEDS: INSULIN SLIDING SCALE (NOVOLOG) 1 VIAL SQ SCH ×4 (06:16→21:24)
[2017-08-09 08:50] LABS: ANION GAP 11 (8-16); BLOOD UREA NITROGEN 73 mg/dL (7-18); CALCIUM 7.8 mg/dL (8.5-10.1); CHLORIDE 112 mmol/L (98-107); CO2 18 mmol/L (21-32); GLUCOSE,RANDOM 112 mg/dL (74-106); SODIUM 141 mmol/L (136-145)
--- NOTE | 2017-08-09 09:40 | PN ---
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 (short form) - Note 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: Subjective: The patient was seen and examined at the bedside, he reports feeling better today. He states he had some neuropathy on his feet overnight that has resolved Current Medications Generic Name Dose Route Start Last Admin Trade Name Amy PRN Reason Stop Dose Admin Allopurinol 100 mg 08/07/17 10:00 08/08/17 09:43 Zyloprim - PO 100 mg DAILY MARY Administration Aspirin 81 mg 08/07/17 10:00 08/08/17 09:41 Ecotrin - PO 81 mg DAILY MARY Administration Atorvastatin Calcium 80 mg 08/06/17 22:00 08/08/17 21:38 Lipitor - PO 80 mg HS MARY Administration Clopidogrel Bisulfate 75 mg 08/07/17 10:00 08/08/17 09:42 Plavix - PO 75 mg DAILY MARY Administration Docusate Sodium 100 mg 08/06/17 22:00 08/09/17 05:44 Colace - PO Not Given TID MARY Gabapentin 300 mg 08/06/17 22:00 08/08/17 21:39 Neurontin - PO 300 mg BID MARY Administration Heparin Sodium (Porcine) 5,000 unit 08/06/17 22:00 08/09/17 05:43 Heparin - SQ 5,000 unit TID MARY Administration Sodium Chloride 1,000 mls @ 42 mls/hr 08/06/17 17:45 08/09/17 05:59 Normal Saline - IV 42 mls/hr ASDIR MARY Administration Azithromycin 500 mg/ Dextrose 250 mls @ 250 mls/hr 08/07/17 11:30 08/08/17 09 :44 IVPB 250 mls/hr DAILY MARY Administration Ceftriaxone Sodium 2 gm/ 100 mls @ 200 mls/hr 08/07/17 11:30 08/08/17 09:43 Dextrose IVPB 200 mls/hr DAILY MARY Administration Insulin Aspart 1 vial 08/06/17 16:30 08/09/17 06:16 Novolog Vial Sliding Scale - SQ Not Given ACHS MARY Protocol Isosorbide Dinitrate 20 mg 08/07/17 13:00 08/08/17 18:03 Isordil - PO 20 mg TIDISORDIL MARY Administration Oseltamivir Phosphate 30 mg 08/06/17 22:00 08/08/17 21:38 Tamiflu - PO 08/11/17 10:01 30 mg BID MARY Administration Objective: Vital Signs Period Temp Pulse Resp BP Sys/Desai Pulse Ox Last 24 Hr 97.6 F-98.5 F 69-83 18-20 101-147/37-72 99 Physical Exam: General: NAD, A&Ox3 Lungs: Diminished breath sounds b/l Heart: RRR, S1S2 Abd: Soft, non-tender, non-distended. Normoactive bowel sounds Ext: Warm, well-perfused. 2+ DP/PT bilaterally Neuro: CN 2-12 intact CBCD WBC 9.2 K/mm3 (4.0-10.0) 08/08/17 08:30 RBC 3.67 M/mm3 (4.00-5.60) L 08/08/17 08:30 Hgb 11.7 GM/dL (11.7-16.9) D 08/08/17 08:30 Hct 34.7 % (35.4-49) L 08/08/17 08:30 MCV 94.7 fl (80-96) 08/08/17 08:30 MCHC 33.6 g/dl (32.0-35.9) 08/08/17 08:30 RDW 14.9 % (11.9-15.9) 08/08/17 08:30 Plt Count 143 K/MM3 (134-434) D 08/08/17 08:30 MPV 8.7 fl (7.5-11.1) 08/08/17 08:30 CMP Sodium 141 mmol/L (136-145) 08/09/17 07:20 Potassium 5.0 mmol/L (3.5-5.1) 08/09/17 07:20 Chloride 112 mmol/L (98-107) H 08/09/17 07:20 Carbon Dioxide 18 mmol/L (21-32) L 08/09/17 07:20 Anion Gap 11 (8-16) 08/09/17 07:20 BUN 73 mg/dL (7-18) H 08/09/17 07:20 Creatinine 2.0 mg/dL (0.7-1.3) H 08/09/17 07:20 Creat Clearance w eGFR 31.03 (>60) 08/07/17 06:00 Random Glucose 112 mg/dL (74-106) H 08/09/17 07:20 Calcium 7.8 mg/dL (8.5-10.1) L 08/09/17 07:20 Total Bilirubin 0.8 mg/dL (0.2-1.0) 08/07/17 06:00 AST 14 U/L (15-37) L 08/07/17 06:00 ALT 26 U/L (12-78) 08/07/17 06:00 Alkaline Phosphatase 90 U/L (45-117) D 08/07/17 06:00 Total Protein 5.4 g/dl (6.4-8.2) L 08/07/17 06:00 Albumin 2.1 g/dl (3.4-5.0) L 08/07/17 06:00 CARDIAC ENZYMES Troponin I 0.02 ng/ml (0.00-0.05) D 08/06/17 12:25 Microbiology 08/06/17 12:25 Blood - Peripheral Venous Blood Culture - Preliminary NO GROWTH OBTAINED AFTER 48 HOURS, INCUBATION TO CONTINUE FOR 3 DAYS. 08/06/17 12:25 Blood - Peripheral Venous Blood Culture - Preliminary NO GROWTH OBTAINED AFTER 48 HOURS, INCUBATION TO CONTINUE FOR 3 DAYS. 08/06/17 12:35 Urine - Urine Clean Catch Urine Culture - Final NO GROWTH OBTAINED 08/07/17 16:30 Urine For Antigen Detection Legionella Antigen - Final 08/07/17 16:30 Urine For Antigen Detection Streptococcus pneumoniae Antigen (M - Final 08/06/17 18:30 Nasopharyngeal Swab Influenza Types A,B Antigen (HARDY) - Preliminary 08/06/17 18:30 Nasopharyngeal Swab - Preliminary Assessment: This is a 72 year old female with PMHx of HTN, hyperlipidemia, CAD s /p stenting, recurrent pneumonia, repeated thoratcentesis, IDDM, systolic heart failure, pulmonary HTN, recurrent pneumonia, IDDM, gout, who presented to the ED with generalized weakness, fever, chills, and fatigue since undergoing a thoracentesis on 07/31 Plan: 1) Sepsis 2/2 pneumonia - CAP vs. atypical LLL pneumonia - S/p thoracentesis on 07/31 appears to be exudative: Gram stain and cultures negative - 06/04/17 pleural effusion: no malignant cells identified. Reactive mesothelial cells, histiocytes and lymphocytes - CT chest 08/07/17: right middle lobe atelectasis. Also small amount of platelike atelectasis within the right upper lobe. Patchy consolidation left lower lobe, moderate right pleural effusion and trace left pleural effusion. Mild mediastinal lymphadenopathy and trace pericardial effusion - Borderline/enlarged mediastinal lymph nodes noted on all prior CT chest dating back to 02/27/16. Discussed with Dr. Trujillo, will need outpatient CT follow -up - Continue empiric zithromax, ceftriaxone, tamiflu - Appreciate ID consult - Appreciate pulmonary consult 2) SPIKE - Cr baseline ~1.5 - Likely 2/2 hypovolemia - Cr improving 2.2->2 - Kidney ultrasound: morphologically normal kidneys, no hydronephrosis - F/u urine electrolytes 3) HTN - BP wnl, continue to monitor - Hold Entresto 2/2 SPIKE and periods of hypotension 4) CAD s/p stenting - Continue ASA - Continue Plavix - Continue Lipitor - Continue isordil Visit type - Emergency Visit Emergency Visit: Yes ED Registration Date: 08/06/17 Care time: The patient presented to the Emergency Department on the above date and was hospitalized for further evaluation of their emergent condition. - New Patient This patient is new to me today: No - Critical Care Critical Care patient: No
[2017-08-09] MEDS: GABAPENTIN 300 MG CAPSULE (FP) PO SCH ×2 (10:15→21:17)
[2017-08-09] MEDS: AZITHROMYCIN IVPB 500 MG in DEXTROSE 5%-WATER - 250 ML IVPB SCH (10:15)
[2017-08-09] MEDS: CEFTRIAXONE 2 GM in DEXTROSE 5%-WATER - 100 ML IVPB SCH (10:15)
[2017-08-09] MEDS: ASPIRIN COATED 81 MG TABLET.EC PO SCH (10:16)
[2017-08-09] MEDS: CLOPIDOGREL BISULFATE 75 MG TABLET (FP) PO SCH (10:16)
[2017-08-09] MEDS: ALLOPURINOL 100 MG TABLET (FP) PO SCH (10:16)
[2017-08-09] MEDS: OSELTAMIVIR PHOSPHATE 30 MG CAPSULE PO SCH ×2 (10:17→21:16)
[2017-08-09] MEDS: ISOSORBIDE DINITRATE 20 MG TABLET (FP) PO SCH ×3 (10:18→17:23)
--- NOTE | 2017-08-09 13:36 | PN ---
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, Physician History of Present Illness: pulmonary alert,feeling better,+cough,-sob - Current Medication List Current Medications: Active Medications Allopurinol (Zyloprim -) 100 mg PO DAILY [facility] Last Admin: 08/09/17 10:16 Dose: 100 mg Aspirin (Ecotrin -) 81 mg PO DAILY [facility] Last Admin: 08/09/17 10:16 Dose: 81 mg Atorvastatin Calcium (Lipitor -) 80 mg PO HS [facility] [place] Last Admin: 08/08/17 21:38 Dose: 80 mg Clopidogrel Bisulfate (Plavix -) 75 mg PO DAILY [facility] Last Admin: 08/09/17 10:16 Dose: 75 mg Docusate Sodium (Colace -) 100 mg PO TID [facility] Last Admin: 08/09/17 05:44 Dose: Not Given Gabapentin (Neurontin -) 300 mg PO BID [facility] [place] Last Admin: 08/09/17 10:15 Dose: 300 mg Heparin Sodium (Porcine) (Heparin -) 5,000 unit SQ TID [facility] Last Admin: 08/09/17 05:43 Dose: 5,000 unit Sodium Chloride (Normal Saline -) 1,000 mls @ 42 mls/hr IV ASDIR [facility] [place] Last Admin: 08/09/17 05:59 Dose: 42 mls/hr Azithromycin 500 mg/ Dextrose 250 mls @ 250 mls/hr IVPB DAILY [facility] Last Admin: 08/09/17 10:15 Dose: 250 mls/hr Ceftriaxone Sodium 2 gm/ (Dextrose) 100 mls @ 200 mls/hr IVPB DAILY [facility] [place] Last Admin: 08/09/17 10:15 Dose: 200 mls/hr Insulin Aspart (Novolog Vial Sliding Scale -) 1 vial SQ ACHS [facility] PRN Reason: Protocol Last Admin: 08/09/17 12:21 Dose: Not Given Isosorbide Dinitrate (Isordil -) 20 mg PO TIDISORDIL [facility] Last Admin: 08/09/17 10:18 Dose: 20 mg Oseltamivir Phosphate (Tamiflu -) 30 mg PO BID [facility] [place] Stop: 08/11/17 10:01 Last Admin: 08/09/17 10:17 Dose: 30 mg - Objective Vital Signs: Vital Signs Temperature 98.4 F 08/09/17 10:00 Pulse Rate 86 08/09/17 10:00 Respiratory Rate 18 08/09/17 10:00 Blood Pressure 149/78 08/09/17 10:00 O2 Sat by Pulse Oximetry (%) 99 08/08/17 21:00 Constitutional: Yes: Well Nourished, Calm Eyes: Yes: WNL HENT: Yes: WNL Neck: Yes: WNL Cardiovascular: Yes: Regular Rate and Rhythm, S1 Respiratory: Yes: Rales (crackles r base) Gastrointestinal: Yes: Normal Bowel Sounds, Soft Extremities: Yes: WNL Edema: No Labs: CBC, BMP 08/08/17 08:30 08/09/17 07:20 INR, PTT INR 1.13 (0.82-1.09) 08/06/17 12:25 Assessment/Plan Problem List - Problems (1) Pneumonia Code(s): J18.9 - PNEUMONIA, UNSPECIFIED ORGANISM Qualifiers: Pneumonia type: due to unspecified organism Laterality: unspecified laterality Lung location: unspecified part of lung Qualified Code(s): J18.9 - Pneumonia, unspecified organism (2) CHF (congestive heart failure) Code(s): I50.9 - HEART FAILURE, UNSPECIFIED (3) Chronic left systolic heart failure Code(s): I50.22 - CHRONIC SYSTOLIC (CONGESTIVE) HEART FAILURE (4) Diabetes Code(s): E11.9 - TYPE 2 DIABETES MELLITUS WITHOUT COMPLICATIONS Qualifiers: Diabetes mellitus type: type 2 Diabetes mellitus complication status: with kidney complications Diabetes mellitus complication detail: with chronic kidney disease (5) Pleural effusion Code(s): J90 - PLEURAL EFFUSION, NOT ELSEWHERE CLASSIFIED (6) Pulmonary hypertension Code(s): I27.2 - OTHER SECONDARY PULMONARY HYPERTENSION * DO NOT USE * (7) CAD (coronary artery disease) Code(s): I25.10 - ATHSCL HEART DISEASE OF [place] CORONARY ARTERY W/O ANG PCTRS Qualifiers: Coronary Disease-Associated Artery/Lesion type: [place] artery [place] vs. transplanted heart: [place] heart Associated angina: with unspecified angina Qualified Code(s): I25.119 - Atherosclerotic heart disease of [place] coronary artery with unspecified angina pectoris (8) Insulin dependent diabetes mellitus Code(s): E11.9 - TYPE 2 DIABETES MELLITUS WITHOUT COMPLICATIONS; Z79.4 - RETIREMENT (CURRENT) USE OF INSULIN Assessment/Plan RECENT THORACENTESIS LIKELY NOT RESPONSIBLE FOR PRESENT ADMISSION LEFT LOWER LOBE INFILTRATE RIGHT PLEURAL EFFUSION LIKELY ? EXUDATE CHF ATELECTASIS ACUTE ON CHRONIC KIDNEY DISEASE AGREE WITH ANTIBIOTIC MONITOR BERNARENAL FUNCTION O2 F/U CHEST X-RAYS DR JENSEN
--- NOTE | 2017-08-09 16:22 | PN ---
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, Physician History of Present Illness: Pt seen and examined at bedside. He is awake and alert. He says that he is starting to feel better. - Current Medication List Current Medications: Active Medications Allopurinol (Zyloprim -) 100 mg PO DAILY [facility] Last Admin: 08/09/17 10:16 Dose: 100 mg Aspirin (Ecotrin -) 81 mg PO DAILY [facility] Last Admin: 08/09/17 10:16 Dose: 81 mg Atorvastatin Calcium (Lipitor -) 80 mg PO HS [facility] Last Admin: 08/08/17 21:38 Dose: 80 mg Clopidogrel Bisulfate (Plavix -) 75 mg PO DAILY [facility] Last Admin: 08/09/17 10:16 Dose: 75 mg Docusate Sodium (Colace -) 100 mg PO TID [facility] Last Admin: 08/09/17 15:57 Dose: Not Given Gabapentin (Neurontin -) 300 mg PO BID [facility] Last Admin: 08/09/17 10:15 Dose: 300 mg Heparin Sodium (Porcine) (Heparin -) 5,000 unit SQ TID [facility] Last Admin: 08/09/17 16:09 Dose: 5,000 unit Sodium Chloride (Normal Saline -) 1,000 mls @ 42 mls/hr IV ASDIR [facility] Last Admin: 08/09/17 05:59 Dose: 42 mls/hr Azithromycin 500 mg/ Dextrose 250 mls @ 250 mls/hr IVPB DAILY [facility] Last Admin: 08/09/17 10:15 Dose: 250 mls/hr Ceftriaxone Sodium 2 gm/ (Dextrose) 100 mls @ 200 mls/hr IVPB DAILY [facility] Last Admin: 08/09/17 10:15 Dose: 200 mls/hr Insulin Aspart (Novolog Vial Sliding Scale -) 1 vial SQ ACHS [facility] PRN Reason: Protocol Last Admin: 08/09/17 12:21 Dose: Not Given Isosorbide Dinitrate (Isordil -) 20 mg PO TIDISORDIL [facility] Last Admin: 08/09/17 15:57 Dose: Not Given Oseltamivir Phosphate (Tamiflu -) 30 mg PO BID [facility] Stop: 08/11/17 10:01 Last Admin: 08/09/17 10:17 Dose: 30 mg - Objective Vital Signs: Vital Signs Temperature 98.0 F 08/09/17 15:52 Pulse Rate 83 08/09/17 15:52 Respiratory Rate 18 08/09/17 15:52 Blood Pressure 103/53 08/09/17 15:52 O2 Sat by Pulse Oximetry (%) 99 08/08/17 21:00 Constitutional: Yes: Calm Eyes: Yes: Conjunctiva Clear HENT: Yes: Atraumatic Neck: Yes: Supple Cardiovascular: Yes: S1, S2 Respiratory: Yes: CTA Bilaterally Gastrointestinal: Yes: Normal Bowel Sounds, Soft Genitourinary: Yes: WNL Musculoskeletal: Yes: WNL Edema: No Neurological: Yes: Oriented Psychiatric: Yes: Oriented Labs: CBC, BMP 08/08/17 08:30 08/09/17 07:20 INR, PTT INR 1.13 (0.82-1.09) 08/06/17 12:25 Problem List - Problems (1) Pneumonia Code(s): J18.9 - PNEUMONIA, UNSPECIFIED ORGANISM Qualifiers: Pneumonia type: due to unspecified organism Laterality: unspecified laterality Lung location: unspecified part of lung Qualified Code(s): J18.9 - Pneumonia, unspecified organism (2) Acute kidney failure Code(s): N17.9 - ACUTE KIDNEY FAILURE, UNSPECIFIED Qualifiers: Acute renal failure type: with other specified pathological lesion Qualified Code(s): N17.8 - Other acute kidney failure (3) CHF (congestive heart failure) Code(s): I50.9 - HEART FAILURE, UNSPECIFIED Assessment/Plan Current Medications Generic Name Dose Route Start Last Admin Trade Name Freq PRN Reason Stop Dose Admin Allopurinol 100 mg 08/07/17 10:00 08/09/17 10:16 Zyloprim - PO 100 mg DAILY MARY Administration Aspirin 81 mg 08/07/17 10:00 08/09/17 10:16 Ecotrin - PO 81 mg DAILY MARY Administration Atorvastatin Calcium 80 mg 08/06/17 22:00 08/08/17 21:38 Lipitor - PO 80 mg HS MARY Administration Clopidogrel Bisulfate 75 mg 08/07/17 10:00 08/09/17 10:16 Plavix - PO 75 mg DAILY MARY Administration Docusate Sodium 100 mg 08/06/17 22:00 08/09/17 15:57 Colace - PO Not Given TID MARY Gabapentin 300 mg 08/06/17 22:00 08/09/17 10:15 Neurontin - PO 300 mg BID MARY Administration Heparin Sodium (Porcine) 5,000 unit 08/06/17 22:00 08/09/17 16:09 Heparin - SQ 5,000 unit TID MARY Administration Sodium Chloride 1,000 mls @ 42 mls/hr 08/06/17 17:45 08/09/17 05:59 Normal Saline - IV 42 mls/hr ASDIR MARY Administration Azithromycin 500 mg/ Dextrose 250 mls @ 250 mls/hr 08/07/17 11:30 08/09/17 10 :15 IVPB 250 mls/hr DAILY MARY Administration Ceftriaxone Sodium 2 gm/ 100 mls @ 200 mls/hr 08/07/17 11:30 08/09/17 10:15 Dextrose IVPB 200 mls/hr DAILY MARY Administration Insulin Aspart 1 vial 08/06/17 16:30 08/09/17 12:21 Novolog Vial Sliding Scale - SQ Not Given ACHS [facility] Protocol Isosorbide Dinitrate 20 mg 08/07/17 13:00 08/09/17 15:57 Isordil - PO Not Given TIDISORDIL [facility] Oseltamivir Phosphate 30 mg 08/06/17 22:00 08/09/17 10:17 Tamiflu - PO 08/11/17 10:01 30 mg BID MARY Administration Laboratory Tests 08/08/17 20:45 Ur Random Sodium 27 Impression 1. CKD with acute component 2. hx CHF 3. CAD 4. DM 5. HTN 6. hyperlipidemia 7. BPH 8. pleural effusions 9. PNA Plan - change fluids to 1/2 ns - repeat labs in am - pt likely does have a prerenal component to his renal failure - will need outpt ck workup and follow up - will follow Dr Menezes
[2017-08-09] MEDS: ATORVASTATIN CA 80 MG TABLET (FP) PO SCH (21:16)
[2017-08-10] MEDS: INSULIN SLIDING SCALE (NOVOLOG) 1 VIAL SQ SCH ×4 (06:55→22:11)
[2017-08-10] MEDS: HEPARIN NA (PORCINE) 5,000 UNITS/ML 1ML VIAL SQ SCH ×3 (06:56→22:11)
[2017-08-10] MEDS: DOCUSATE SODIUM 100 MG CAPSULE (FP) PO SCH ×3 (06:56→22:13)
--- NOTE | 2017-08-10 09:12 | PN ---
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 (short form) - Note 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: Subjective: The patient was seen and examined at the bedside, he reports feeling better today. For Chest X-ray Patient refusing labs this AM Current Medications Generic Name Dose Route Start Last Admin Trade Name Amy PRN Reason Stop Dose Admin Allopurinol 100 mg 08/07/17 10:00 08/09/17 10:16 Zyloprim - PO 100 mg DAILY MARY Administration Aspirin 81 mg 08/07/17 10:00 08/09/17 10:16 Ecotrin - PO 81 mg DAILY MARY Administration Atorvastatin Calcium 80 mg 08/06/17 22:00 08/09/17 21:16 Lipitor - PO 80 mg HS MARY Administration Clopidogrel Bisulfate 75 mg 08/07/17 10:00 08/09/17 10:16 Plavix - PO 75 mg DAILY MARY Administration Docusate Sodium 100 mg 08/06/17 22:00 08/10/17 06:56 Colace - PO 100 mg TID MARY Administration Gabapentin 300 mg 08/06/17 22:00 08/09/17 21:17 Neurontin - PO 300 mg BID MARY Administration Heparin Sodium (Porcine) 5,000 unit 08/06/17 22:00 08/10/17 06:56 Heparin - SQ 5,000 unit TID MARY Administration Sodium Chloride 1,000 mls @ 42 mls/hr 08/06/17 17:45 08/09/17 05:59 Normal Saline - IV 42 mls/hr ASDIR MARY Administration Azithromycin 500 mg/ Dextrose 250 mls @ 250 mls/hr 08/07/17 11:30 08/09/17 10 :15 IVPB 250 mls/hr DAILY MARY Administration Ceftriaxone Sodium 2 gm/ 100 mls @ 200 mls/hr 08/07/17 11:30 08/09/17 10:15 Dextrose IVPB 200 mls/hr DAILY MARY Administration Insulin Aspart 1 vial 08/06/17 16:30 08/10/17 06:55 Novolog Vial Sliding Scale - SQ Not Given ACHS MARY Protocol Isosorbide Dinitrate 20 mg 08/07/17 13:00 08/09/17 17:23 Isordil - PO 20 mg TIDISORDIL MARY Administration Oseltamivir Phosphate 30 mg 08/06/17 22:00 08/09/17 21:16 Tamiflu - PO 08/11/17 10:01 30 mg BID MARY Administration Objective: Vital Signs Period Temp Pulse Resp BP Sys/Desai Pulse Ox Last 24 Hr 97.6 F-98.4 F 75-86 18-20 103-149/53-78 Physical Exam: General: NAD, A&Ox3 Refused exam CBCD WBC 9.2 K/mm3 (4.0-10.0) 08/08/17 08:30 RBC 3.67 M/mm3 (4.00-5.60) L 08/08/17 08:30 Hgb 11.7 GM/dL (11.7-16.9) D 08/08/17 08:30 Hct 34.7 % (35.4-49) L 08/08/17 08:30 MCV 94.7 fl (80-96) 08/08/17 08:30 MCHC 33.6 g/dl (32.0-35.9) 08/08/17 08:30 RDW 14.9 % (11.9-15.9) 08/08/17 08:30 Plt Count 143 K/MM3 (134-434) D 08/08/17 08:30 MPV 8.7 fl (7.5-11.1) 08/08/17 08:30 CMP Sodium 141 mmol/L (136-145) 08/09/17 07:20 Potassium 5.0 mmol/L (3.5-5.1) 08/09/17 07:20 Chloride 112 mmol/L (98-107) H 08/09/17 07:20 Carbon Dioxide 18 mmol/L (21-32) L 08/09/17 07:20 Anion Gap 11 (8-16) 08/09/17 07:20 BUN 73 mg/dL (7-18) H 08/09/17 07:20 Creatinine 2.0 mg/dL (0.7-1.3) H 08/09/17 07:20 Creat Clearance w eGFR 31.03 (>60) 08/07/17 06:00 Random Glucose 112 mg/dL (74-106) H 08/09/17 07:20 Calcium 7.8 mg/dL (8.5-10.1) L 08/09/17 07:20 Total Bilirubin 0.8 mg/dL (0.2-1.0) 08/07/17 06:00 AST 14 U/L (15-37) L 08/07/17 06:00 ALT 26 U/L (12-78) 08/07/17 06:00 Alkaline Phosphatase 90 U/L (45-117) D 08/07/17 06:00 Total Protein 5.4 g/dl (6.4-8.2) L 08/07/17 06:00 Albumin 2.1 g/dl (3.4-5.0) L 08/07/17 06:00 CARDIAC ENZYMES Troponin I 0.02 ng/ml (0.00-0.05) D 08/06/17 12:25 Microbiology 08/09/17 07:00 Sputum - Expectorated Gram Stain - Final 08/06/17 12:25 Blood - Peripheral Venous Blood Culture - Preliminary NO GROWTH OBTAINED AFTER 72 HOURS, INCUBATION TO CONTINUE FOR 2 DAYS. 08/06/17 12:25 Blood - Peripheral Venous Blood Culture - Preliminary NO GROWTH OBTAINED AFTER 72 HOURS, INCUBATION TO CONTINUE FOR 2 DAYS. 08/06/17 12:35 Urine - Urine Clean Catch Urine Culture - Final NO GROWTH OBTAINED 08/07/17 16:30 Urine For Antigen Detection Legionella Antigen - Final 08/07/17 16:30 Urine For Antigen Detection Streptococcus pneumoniae Antigen (M - Final 08/06/17 18:30 Nasopharyngeal Swab Influenza Types A,B Antigen (HARDY) - Preliminary 08/06/17 18:30 Nasopharyngeal Swab - Preliminary Assessment: This is a 72 year old female with PMHx of HTN, hyperlipidemia, CAD s /p stenting, recurrent pneumonia, repeated thoratcentesis, IDDM, systolic heart failure, pulmonary HTN, recurrent pneumonia, IDDM, gout, who presented to the ED with generalized weakness, fever, chills, and fatigue since undergoing a thoracentesis on 07/31 Plan: 1) Sepsis 2/2 pneumonia - CAP vs. atypical LLL pneumonia - S/p thoracentesis on 07/31 appears to be exudative: Gram stain and cultures negative - 06/04/17 pleural effusion: no malignant cells identified. Reactive mesothelial cells, histiocytes and lymphocytes - CT chest 08/07/17: right middle lobe atelectasis. Also small amount of platelike atelectasis within the right upper lobe. Patchy consolidation left lower lobe, moderate right pleural effusion and trace left pleural effusion. Mild mediastinal lymphadenopathy and trace pericardial effusion - Borderline/enlarged mediastinal lymph nodes noted on all prior CT chest dating back to 02/27/16. Discussed with Dr. Trujillo, will need outpatient CT follow -up - F/u chest x-ray today - Continue empiric zithromax, ceftriaxone, tamiflu - Appreciate ID consult - Appreciate pulmonary consult 2) SPIKE - Patient refused labs today - Cr baseline ~1.5 - Likely 2/2 hypovolemia - FeNa 0.3%: prerenal - Cr improving 2.2->2 - Kidney ultrasound: morphologically normal kidneys, no hydronephrosis - Appreciate nephrology consult 3) HTN - BP wnl, continue to monitor - Hold Entresto 2/2 SPIKE 4) CAD s/p stenting - Continue ASA - Continue Plavix - Continue Lipitor - Continue isordil 5) Systolic heart failure - Chest X-ray with increased congestion - Will resume Lasix 40mg po daily - Holding entresto 2/2 SPIKE 6) IDDM - BGM ACHS - ISS ACHS 7) F/E/N: - Monitor electrolytes - Diabetic/sodium controlled diet 8) Prophylaxis: - PT - Heparin 5,000u sq tid 9) Dispo: - Requires continued inpatient care CODE STATUS: FULL CODE Problem List - Problems (1) Pneumonia Code(s): J18.9 - PNEUMONIA, UNSPECIFIED ORGANISM Qualifiers: Pneumonia type: due to unspecified organism Laterality: unspecified laterality Lung location: unspecified part of lung Qualified Code(s): J18.9 - Pneumonia, unspecified organism (2) Sepsis Code(s): A41.9 - SEPSIS, UNSPECIFIED ORGANISM Qualifiers: Sepsis type: sepsis due to unspecified organism Qualified Code(s): A41.9 - Sepsis, unspecified organism (3) Acute kidney failure Code(s): N17.9 - ACUTE KIDNEY FAILURE, UNSPECIFIED Qualifiers: Acute renal failure type: with other specified pathological lesion Qualified Code(s): N17.8 - Other acute kidney failure (4) Asymptomatic microscopic hematuria Code(s): R31.21 - ASYMPTOMATIC MICROSCOPIC HEMATURIA (5) CHF (congestive heart failure) Code(s): I50.9 - HEART FAILURE, UNSPECIFIED (6) CKD (chronic kidney disease) Code(s): N18.9 - CHRONIC KIDNEY DISEASE, UNSPECIFIED (7) Chronic left systolic heart failure Code(s): I50.22 - CHRONIC SYSTOLIC (CONGESTIVE) HEART FAILURE Visit type - Emergency Visit Emergency Visit: Yes ED Registration Date: 08/06/17 Care time: The patient presented to the Emergency Department on the above date and was hospitalized for further evaluation of their emergent condition. - New Patient This patient is new to me today: No - Critical Care Critical Care patient: No
[2017-08-10] MEDS ORDERED: PT OWN MED DRAWER 7, Y5N ONE ×2 (09:17→10:02)
[2017-08-10] MEDS: CLOPIDOGREL BISULFATE 75 MG TABLET (FP) PO SCH (09:46)
[2017-08-10] MEDS: GABAPENTIN 300 MG CAPSULE (FP) PO SCH ×2 (09:46→22:12)
[2017-08-10] MEDS: AZITHROMYCIN IVPB 500 MG in DEXTROSE 5%-WATER - 250 ML IVPB SCH (09:46)
[2017-08-10] MEDS: ASPIRIN COATED 81 MG TABLET.EC PO SCH (09:47)
[2017-08-10] MEDS: ISOSORBIDE DINITRATE 20 MG TABLET (FP) PO SCH ×3 (09:47→17:58)
[2017-08-10] MEDS: OSELTAMIVIR PHOSPHATE 30 MG CAPSULE PO SCH ×2 (09:47→22:12)
[2017-08-10] MEDS: SODIUM CHLORIDE 1,000 ML IV SCH ×2 (09:48→17:57)
[2017-08-10] MEDS: ALLOPURINOL 100 MG TABLET (FP) PO SCH (09:50)
[2017-08-10] MEDS ORDERED: FUROSEMIDE 40 MG TABLET (FP) PO ONE (10:00)
[2017-08-10 10:16] LABS: ANION GAP 9 (8-16); BLOOD UREA NITROGEN 71 mg/dL (7-18); CALCIUM 7.7 mg/dL (8.5-10.1); CHLORIDE 116 mmol/L (98-107); CO2 18 mmol/L (21-32); CREATININE 1.7 mg/dL (0.7-1.3); GLUCOSE,RANDOM 143 mg/dL (74-106); POTASSIUM 4.7 mmol/L (3.5-5.1); SODIUM 143 mmol/L (136-145)
[2017-08-10] MEDS: CEFTRIAXONE 2 GM in DEXTROSE 5%-WATER - 100 ML IVPB SCH (12:36)
--- NOTE | 2017-08-10 13:45 | PN ---
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, Physician History of Present Illness: PULMONARY ALERT,FEELING BETTER,-SOB,+ COUGH - Current Medication List Current Medications: Active Medications Allopurinol (Zyloprim -) 100 mg PO DAILY REPLACED BY [facility] Last Admin: 08/10/17 09:50 Dose: 100 mg Aspirin (Ecotrin -) 81 mg PO DAILY REPLACED BY [facility] Last Admin: 08/10/17 09:47 Dose: 81 mg Atorvastatin Calcium (Lipitor -) 80 mg PO HS REPLACED BY [facility] Last Admin: 08/09/17 21:16 Dose: 80 mg Clopidogrel Bisulfate (Plavix -) 75 mg PO DAILY REPLACED BY [facility] Last Admin: 08/10/17 09:46 Dose: 75 mg Docusate Sodium (Colace -) 100 mg PO TID REPLACED BY [facility] Last Admin: 08/10/17 06:56 Dose: 100 mg Gabapentin (Neurontin -) 300 mg PO BID REPLACED BY [facility] Last Admin: 08/10/17 09:46 Dose: 300 mg Heparin Sodium (Porcine) (Heparin -) 5,000 unit SQ TID REPLACED BY [facility] Last Admin: 08/10/17 06:56 Dose: 5,000 unit Sodium Chloride (Normal Saline -) 1,000 mls @ 42 mls/hr IV ASDIR REPLACED BY [facility] Last Admin: 08/10/17 09:48 Dose: Not Given Azithromycin 500 mg/ Dextrose 250 mls @ 250 mls/hr IVPB DAILY REPLACED BY [facility] Last Admin: 08/10/17 09:46 Dose: 250 mls/hr Ceftriaxone Sodium 2 gm/ (Dextrose) 100 mls @ 200 mls/hr IVPB DAILY REPLACED BY [facility] Last Admin: 08/10/17 12:36 Dose: 200 mls/hr Insulin Aspart (Novolog Vial Sliding Scale -) 1 vial SQ ACHS REPLACED BY [facility] PRN Reason: Protocol Last Admin: 08/10/17 11:47 Dose: 6 units Isosorbide Dinitrate (Isordil -) 20 mg PO TIDISORDIL REPLACED BY [facility] Last Admin: 08/10/17 09:47 Dose: 20 mg Oseltamivir Phosphate (Tamiflu -) 30 mg PO BID REPLACED BY [facility] Stop: 08/11/17 10:01 Last Admin: 08/10/17 09:47 Dose: 30 mg - Objective Vital Signs: Vital Signs Temperature 98.2 F 08/10/17 06:00 Pulse Rate 80 08/10/17 06:00 Respiratory Rate 20 08/10/17 06:00 Blood Pressure 126/57 08/10/17 06:00 O2 Sat by Pulse Oximetry (%) 99 08/08/17 21:00 Constitutional: Yes: Well Nourished, Calm Eyes: Yes: WNL HENT: Yes: WNL Neck: Yes: WNL Cardiovascular: Yes: Regular Rate and Rhythm, S1, S2 Respiratory: Yes: Rales (CRACKLES LEFT BASE) Gastrointestinal: Yes: Normal Bowel Sounds, Soft Extremities: Yes: WNL Edema: No Labs: CBC, BMP 08/10/17 09:40 - ....Imaging Chest X-ray: Report Reviewed, Image Reviewed (NO CHANGE) Assessment/Plan Problem List - Problems (1) Pneumonia Code(s): J18.9 - PNEUMONIA, UNSPECIFIED ORGANISM Qualifiers: Pneumonia type: due to unspecified organism Laterality: unspecified laterality Lung location: unspecified part of lung Qualified Code(s): J18.9 - Pneumonia, unspecified organism (2) CHF (congestive heart failure) Code(s): I50.9 - HEART FAILURE, UNSPECIFIED (3) Chronic left systolic heart failure Code(s): I50.22 - CHRONIC SYSTOLIC (CONGESTIVE) HEART FAILURE (4) Diabetes Code(s): E11.9 - TYPE 2 DIABETES MELLITUS WITHOUT COMPLICATIONS Qualifiers: Diabetes mellitus type: type 2 Diabetes mellitus complication status: with kidney complications Diabetes mellitus complication detail: with chronic kidney disease (5) Pleural effusion Code(s): J90 - PLEURAL EFFUSION, NOT ELSEWHERE CLASSIFIED (6) Pulmonary hypertension Code(s): I27.2 - OTHER SECONDARY PULMONARY HYPERTENSION * DO NOT USE * (7) CAD (coronary artery disease) Code(s): I25.10 - ATHSCL HEART DISEASE OF [place] CORONARY ARTERY W/O ANG PCTRS Qualifiers: Coronary Disease-Associated Artery/Lesion type: [place] artery [place] vs. 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 EXUDATE CHF ATELECTASIS ACUTE ON CHRONIC KIDNEY DISEASE ANTIBIOTICS PER ID MONITOR LYTES,RENAL FUNCTION O2 F/U CHEST X-RAYS DR JENSEN
--- NOTE | 2017-08-10 19:46 | PN ---
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, Physician History of Present Illness: Pt seen and examined at bedside. He is awake and alert. He denies shortness of breath. - Current Medication List Current Medications: Active Medications Allopurinol (Zyloprim -) 100 mg PO DAILY [facility] Last Admin: 08/10/17 09:50 Dose: 100 mg Aspirin (Ecotrin -) 81 mg PO DAILY [facility] Last Admin: 08/10/17 09:47 Dose: 81 mg Atorvastatin Calcium (Lipitor -) 80 mg PO HS [facility] Last Admin: 08/09/17 21:16 Dose: 80 mg Clopidogrel Bisulfate (Plavix -) 75 mg PO DAILY [facility] Last Admin: 08/10/17 09:46 Dose: 75 mg Docusate Sodium (Colace -) 100 mg PO TID [facility] Last Admin: 08/10/17 14:25 Dose: Not Given Gabapentin (Neurontin -) 300 mg PO BID [facility] Last Admin: 08/10/17 09:46 Dose: 300 mg Heparin Sodium (Porcine) (Heparin -) 5,000 unit SQ TID [facility] Last Admin: 08/10/17 14:52 Dose: 5,000 unit Sodium Chloride (Normal Saline -) 1,000 mls @ 42 mls/hr IV ASDIR [facility] Last Admin: 08/10/17 17:57 Dose: Not Given Azithromycin 500 mg/ Dextrose 250 mls @ 250 mls/hr IVPB DAILY [facility] Last Admin: 08/10/17 09:46 Dose: 250 mls/hr Ceftriaxone Sodium 2 gm/ (Dextrose) 100 mls @ 200 mls/hr IVPB DAILY [facility] Last Admin: 08/10/17 12:36 Dose: 200 mls/hr Insulin Aspart (Novolog Vial Sliding Scale -) 1 vial SQ ACHS [facility] PRN Reason: Protocol Last Admin: 08/10/17 17:56 Dose: 10 units Isosorbide Dinitrate (Isordil -) 20 mg PO TIDISORDIL [facility] Last Admin: 08/10/17 17:58 Dose: 20 mg Oseltamivir Phosphate (Tamiflu -) 30 mg PO BID [facility] Stop: 08/11/17 10:01 Last Admin: 08/10/17 09:47 Dose: 30 mg - Objective Vital Signs: Vital Signs Temperature 98.8 F 08/10/17 16:30 Pulse Rate 79 08/10/17 16:30 Respiratory Rate 20 08/10/17 16:30 Blood Pressure 116/60 08/10/17 16:30 O2 Sat by Pulse Oximetry (%) 99 08/08/17 21:00 Constitutional: Yes: Calm Eyes: Yes: Conjunctiva Clear HENT: Yes: Atraumatic Cardiovascular: Yes: S1, S2 Respiratory: Yes: Rhonchi Gastrointestinal: Yes: Soft Genitourinary: Yes: WNL Musculoskeletal: Yes: WNL Edema: No Neurological: Yes: Oriented Psychiatric: Yes: Oriented Labs: CBC, BMP 08/08/17 08:30 08/10/17 09:40 INR, PTT INR 1.13 (0.82-1.09) 08/06/17 12:25 Problem List - Problems (1) Pneumonia Code(s): J18.9 - PNEUMONIA, UNSPECIFIED ORGANISM Qualifiers: Pneumonia type: due to unspecified organism Laterality: unspecified laterality Lung location: unspecified part of lung Qualified Code(s): J18.9 - Pneumonia, unspecified organism (2) Acute kidney failure Code(s): N17.9 - ACUTE KIDNEY FAILURE, UNSPECIFIED Qualifiers: Acute renal failure type: with other specified pathological lesion Qualified Code(s): N17.8 - Other acute kidney failure (3) CHF (congestive heart failure) Code(s): I50.9 - HEART FAILURE, UNSPECIFIED Assessment/Plan Current Medications Generic Name Dose Route Start Last Admin Trade Name Freq PRN Reason Stop Dose Admin Allopurinol 100 mg 08/07/17 10:00 08/10/17 09:50 Zyloprim - PO 100 mg DAILY MARY Administration Aspirin 81 mg 08/07/17 10:00 08/10/17 09:47 Ecotrin - PO 81 mg DAILY MARY Administration Atorvastatin Calcium 80 mg 08/06/17 22:00 08/09/17 21:16 Lipitor - PO 80 mg HS MARY Administration Clopidogrel Bisulfate 75 mg 08/07/17 10:00 08/10/17 09:46 Plavix - PO 75 mg DAILY MARY Administration Docusate Sodium 100 mg 08/06/17 22:00 08/10/17 14:25 Colace - PO Not Given TID MARY Gabapentin 300 mg 08/06/17 22:00 08/10/17 09:46 Neurontin - PO 300 mg BID MARY Administration Heparin Sodium (Porcine) 5,000 unit 08/06/17 22:00 08/10/17 14:52 Heparin - SQ 5,000 unit TID MARY Administration Sodium Chloride 1,000 mls @ 42 mls/hr 08/06/17 17:45 08/10/17 17:57 Normal Saline - IV Not Given ASDIR MARY Azithromycin 500 mg/ Dextrose 250 mls @ 250 mls/hr 08/07/17 11:30 08/10/17 09 :46 IVPB 250 mls/hr DAILY MARY Administration Ceftriaxone Sodium 2 gm/ 100 mls @ 200 mls/hr 08/07/17 11:30 08/10/17 12:36 Dextrose IVPB 200 mls/hr DAILY AMRY Administration Insulin Aspart 1 vial 08/06/17 16:30 08/10/17 17:56 Novolog Vial Sliding Scale - SQ 10 units ACHS MARY Administration Protocol Isosorbide Dinitrate 20 mg 08/07/17 13:00 08/10/17 17:58 Isordil - PO 20 mg TIDISORDIL MARY Administration Oseltamivir Phosphate 30 mg 08/06/17 22:00 08/10/17 09:47 Tamiflu - PO 08/11/17 10:01 30 mg BID MARY Administration Impression 1. CKD with acute component 2. hx CHF 3. CAD 4. DM 5. HTN 6. hyperlipidemia 7. BPH 8. pleural effusions 9. PNA Plan - d/c fluids - renal function is improving - repeat labs in am - will need outpt ck workup and follow up - will follow Dr Menezes
[2017-08-10] MEDS: ATORVASTATIN CA 80 MG TABLET (FP) PO SCH (22:12)
[2017-08-11] MEDS: HEPARIN NA (PORCINE) 5,000 UNITS/ML 1ML VIAL SQ SCH ×2 (05:31→14:44)
[2017-08-11] MEDS: DOCUSATE SODIUM 100 MG CAPSULE (FP) PO SCH ×2 (05:31→14:44)
[2017-08-11] MEDS: INSULIN SLIDING SCALE (NOVOLOG) 1 VIAL SQ SCH ×2 (06:57→12:41)
[2017-08-11 08:53] LABS: BASO % 0.5 % (0-2.0); EOS % 2.3 % (0-4.5); HEMATOCRIT 32.6 % (35.4-49); LYMPH % 16.8 % (8-40); MCH 31.8 pg (25.7-33.7); MCHC 33.7 g/dl (32.0-35.9); MEAN CELL VOLUME 94.5 fl (80-96); MEAN PLT VOLUME 8.9 fl (7.5-11.1); MONO % 8.6 % (3.8-10.2); NEUT % 71.8 % (42.8-82.8); PLATELET COUNT 156 K/MM3 (134-434); RBC 3.45 M/mm3 (4.00-5.60); RDW 14.8 % (11.9-15.9); WHITE BLOOD COUNT 6.2 K/mm3 (4.0-10.0)
--- NOTE | 2017-08-11 09:34 | PN ---
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, Physician History of Present Illness: Awake, alert Seated in bed No complaints Afebrile WBC WNL Azotemia improved Sputum c/s normal cherie Legionella ag(-) - Current Medication List Current Medications: Active Medications Allopurinol (Zyloprim -) 100 mg PO DAILY [facility] Last Admin: 08/10/17 09:50 Dose: 100 mg Aspirin (Ecotrin -) 81 mg PO DAILY [facility] Last Admin: 08/10/17 09:47 Dose: 81 mg Atorvastatin Calcium (Lipitor -) 80 mg PO HS [facility] Last Admin: 08/10/17 22:12 Dose: 80 mg Clopidogrel Bisulfate (Plavix -) 75 mg PO DAILY [facility] Last Admin: 08/10/17 09:46 Dose: 75 mg Docusate Sodium (Colace -) 100 mg PO TID [facility] Last Admin: 08/11/17 05:31 Dose: 100 mg Gabapentin (Neurontin -) 300 mg PO BID [facility] Last Admin: 08/10/17 22:12 Dose: 300 mg Heparin Sodium (Porcine) (Heparin -) 5,000 unit SQ TID [facility] Last Admin: 08/11/17 05:31 Dose: 5,000 unit Azithromycin 500 mg/ Dextrose 250 mls @ 250 mls/hr IVPB DAILY [facility] Last Admin: 08/10/17 09:46 Dose: 250 mls/hr Ceftriaxone Sodium 2 gm/ (Dextrose) 100 mls @ 200 mls/hr IVPB DAILY [facility] Last Admin: 08/10/17 12:36 Dose: 200 mls/hr Insulin Aspart (Novolog Vial Sliding Scale -) 1 vial SQ ACHS [facility] PRN Reason: Protocol Last Admin: 08/11/17 06:57 Dose: Not Given Isosorbide Dinitrate (Isordil -) 20 mg PO TIDISORDIL [facility] Last Admin: 08/10/17 17:58 Dose: 20 mg Oseltamivir Phosphate (Tamiflu -) 30 mg PO BID [facility] Stop: 08/11/17 10:01 Last Admin: 08/10/17 22:12 Dose: 30 mg - Objective Vital Signs: Vital Signs Temperature 97.5 F L 08/11/17 06:56 Pulse Rate 82 08/11/17 06:56 Respiratory Rate 20 08/11/17 06:56 Blood Pressure 155/69 08/11/17 06:56 O2 Sat by Pulse Oximetry (%) 99 08/08/17 21:00 Constitutional: Yes: No Distress Eyes: Yes: Conjunctiva Clear Cardiovascular: Yes: Regular Rate and Rhythm, S1, S2 Respiratory: Yes: Other Gastrointestinal: Yes: Normal Bowel Sounds, Soft. No: Tenderness Edema: No Labs: CBC, BMP 08/11/17 08:30 INR, PTT INR 1.13 (0.82-1.09) 08/06/17 12:25 Assessment/Plan LLL pneumonia clinically improved R pleural effusion s/p thoracentesis Azotemia improved Thrombocytopenia- resolved Completing course of empiric Tamiflu Substitute Augmentin 875 mg po bid x 7d
[2017-08-11 09:37] LABS: ALBUMIN 1.9 g/dl (3.4-5.0); ALK PHOS 99 U/L (45-117); ANION GAP 12 (8-16); BILIRUBIN,TOTAL 0.5 mg/dL (0.2-1.0); BLOOD UREA NITROGEN 58 mg/dL (7-18); CHLORIDE 116 mmol/L (98-107); CO2 18 mmol/L (21-32); CREATININE 1.4 mg/dL (0.7-1.3); GLUCOSE,RANDOM 117 mg/dL (74-106); POTASSIUM 4.4 mmol/L (3.5-5.1); SGOT/AST 40 U/L (15-37); SGPT/ALT 75 U/L (12-78); SODIUM 146 mmol/L (136-145); TOT PROT 5.7 g/dl (6.4-8.2)
[2017-08-11] MEDS ORDERED: PT OWN MED DRAWER 7, Y5N ONE ×3 (09:40→14:48)
[2017-08-11] MEDS: OSELTAMIVIR PHOSPHATE 30 MG CAPSULE PO SCH (09:52)
[2017-08-11] MEDS: GABAPENTIN 300 MG CAPSULE (FP) PO SCH (09:52)
[2017-08-11] MEDS: ASPIRIN COATED 81 MG TABLET.EC PO SCH (09:52)
[2017-08-11] MEDS: CLOPIDOGREL BISULFATE 75 MG TABLET (FP) PO SCH (09:52)
[2017-08-11] MEDS: CEFTRIAXONE 2 GM in DEXTROSE 5%-WATER - 100 ML IVPB SCH (09:52)
[2017-08-11] MEDS: ISOSORBIDE DINITRATE 20 MG TABLET (FP) PO SCH ×2 (09:52→14:54)
[2017-08-11] MEDS: ALLOPURINOL 100 MG TABLET (FP) PO SCH (09:53)
--- NOTE | 2017-08-11 11:04 | PN ---
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 (short form) - Note 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: OOB to chair. Overall better. Some residual dry cough. NAD on RA. Intake & Output 08/08/17 08/09/17 08/10/17 08/11/17 22:59 22:59 23:59 23:59 Intake Total Output Total Balance Last Vital Signs Temp Pulse Resp BP Pulse Ox 97.5 F L 82 20 155/69 99 08/11/17 06:56 08/11/17 06:56 08/11/17 06:56 08/11/17 06:56 08/08/17 21:00 Active Medications Allopurinol (Zyloprim -) 100 mg PO DAILY [facility] Last Admin: 08/11/17 09:53 Dose: 100 mg Aspirin (Ecotrin -) 81 mg PO DAILY [facility] Last Admin: 08/11/17 09:52 Dose: 81 mg Atorvastatin Calcium (Lipitor -) 80 mg PO HS [facility] Last Admin: 08/10/17 22:12 Dose: 80 mg Clopidogrel Bisulfate (Plavix -) 75 mg PO DAILY [facility] Last Admin: 08/11/17 09:52 Dose: 75 mg Docusate Sodium (Colace -) 100 mg PO TID [facility] Last Admin: 08/11/17 05:31 Dose: 100 mg Gabapentin (Neurontin -) 300 mg PO BID [facility] Last Admin: 08/11/17 09:52 Dose: 300 mg Heparin Sodium (Porcine) (Heparin -) 5,000 unit SQ TID [facility] Last Admin: 08/11/17 05:31 Dose: 5,000 unit Azithromycin 500 mg/ Dextrose 250 mls @ 250 mls/hr IVPB DAILY [facility] Last Admin: 08/10/17 09:46 Dose: 250 mls/hr Ceftriaxone Sodium 2 gm/ (Dextrose) 100 mls @ 200 mls/hr IVPB DAILY [facility] Last Admin: 08/11/17 09:52 Dose: 200 mls/hr Insulin Aspart (Novolog Vial Sliding Scale -) 1 vial SQ ACHS [facility] PRN Reason: Protocol Last Admin: 08/11/17 06:57 Dose: Not Given Isosorbide Dinitrate (Isordil -) 20 mg PO TIDISORDIL [facility] Last Admin: 08/11/17 09:52 Dose: 20 mg Constitutional: Yes: Well Nourished, NAD Eyes: Yes: WNL HENT: Yes: WNL Neck: Yes: WNL Cardiovascular: Yes: Regular Rate and Rhythm, S1, S2 Respiratory: Yes: Residual basilar rhonchi/crackles Gastrointestinal: Yes: Normal Bowel Sounds, Soft Extremities: Yes: WNL Edema: No Labs: Laboratory Results - last 24 hr 08/10/17 08/10/17 08/10/17 11:44 17:51 22:10 WBC RBC Hgb Hct MCV MCH MCHC RDW Plt Count MPV Neutrophils % Lymphocytes % Monocytes % Eosinophils % Basophils % Sodium Potassium Chloride Carbon Dioxide Anion Gap BUN Creatinine Creat Clearance w eGFR POC Glucometer 265 360 141 Random Glucose Calcium Total Bilirubin AST ALT Alkaline Phosphatase Total Protein Albumin 08/11/17 08/11/17 08/11/17 05:30 08:30 08:30 WBC 6.2 D RBC 3.45 L Hgb 11.0 L Hct 32.6 L MCV 94.5 MCH 31.8 MCHC 33.7 RDW 14.8 Plt Count 156 MPV 8.9 Neutrophils % 71.8 Lymphocytes % 16.8 D Monocytes % 8.6 Eosinophils % 2.3 D Basophils % 0.5 Sodium 146 H Potassium 4.4 Chloride 116 H Carbon Dioxide 18 L Anion Gap 12 BUN 58 H Creatinine 1.4 H Creat Clearance w eGFR 49.54 POC Glucometer 88 Random Glucose 117 H Calcium 8.0 L Total Bilirubin 0.5 D AST 40 H D ALT 75 D Alkaline Phosphatase 99 Total Protein 5.7 L Albumin 1.9 L Assessment/Plan Problem List - Problems (1) Pneumonia Code(s): J18.9 - PNEUMONIA, UNSPECIFIED ORGANISM Qualifiers: Pneumonia type: due to unspecified organism Laterality: unspecified laterality Lung location: unspecified part of lung Qualified Code(s): J18.9 - Pneumonia, unspecified organism (2) CHF (congestive heart failure) Code(s): I50.9 - HEART FAILURE, UNSPECIFIED (3) Chronic left systolic heart failure Code(s): I50.22 - CHRONIC SYSTOLIC (CONGESTIVE) HEART FAILURE (4) Diabetes Code(s): E11.9 - TYPE 2 DIABETES MELLITUS WITHOUT COMPLICATIONS Qualifiers: Diabetes mellitus type: type 2 Diabetes mellitus complication status: with kidney complications Diabetes mellitus complication detail: with chronic kidney disease (5) Pleural effusion Code(s): J90 - PLEURAL EFFUSION, NOT ELSEWHERE CLASSIFIED (6) Pulmonary hypertension Code(s): I27.2 - OTHER SECONDARY PULMONARY HYPERTENSION * DO NOT USE * (7) CAD (coronary artery disease) Code(s): I25.10 - ATHSCL HEART DISEASE OF [place] CORONARY ARTERY W/O ANG PCTRS Qualifiers: Coronary Disease-Associated Artery/Lesion type: [place] artery [place] vs. 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 EXUDATE CHF ATELECTASIS ACUTE ON CHRONIC KIDNEY DISEASE PO ANTIBIOTICS PER ID FOLLOW CXR AN OUTPATIENT NO PULMONARY CONTRAINDICATION FOR D/C DR FENTON
[2017-08-11] MEDS: AZITHROMYCIN IVPB 500 MG in DEXTROSE 5%-WATER - 250 ML IVPB SCH (11:52)
--- NOTE | 2017-08-11 12:23 | DS ---
Physical Exam: SUBJECTIVE: Patient seen and examined. He denies sob, chest pain, fever, chills , he is eager to go home OBJECTIVE: Vital Signs Period Temp Pulse Resp BP Sys/Desai Pulse Ox Last 24 Hr 97.3 F-98.8 F 76-82 20-20 105-155/48-69 PE Neuro: alert, awake, cn 2-12intact Pulm: left base rhonchi CV: s1 s2 rrr Abd: s nt nd + bs Ext: warm no le edema Laboratory Results - last 24 hr 08/11/17 08/11/17 08:30 08:30 WBC 6.2 D RBC 3.45 L Hgb 11.0 L Hct 32.6 L MCV 94.5 MCH 31.8 MCHC 33.7 RDW 14.8 Plt Count 156 MPV 8.9 Neutrophils % 71.8 Lymphocytes % 16.8 D Monocytes % 8.6 Eosinophils % 2.3 D Basophils % 0.5 Sodium 146 H Potassium 4.4 Chloride 116 H Carbon Dioxide 18 L Anion Gap 12 BUN 58 H Creatinine 1.4 H Creat Clearance w eGFR 49.54 POC Glucometer Random Glucose 117 H Calcium 8.0 L Total Bilirubin 0.5 D AST 40 H D ALT 75 D Alkaline Phosphatase 99 Total Protein 5.7 L Albumin 1.9 L HOSPITAL COURSE: Date of Admission:08/06/17 Date of Discharge: 08/11/17 Minutes to complete discharge: 37 Discharge Summary Reason For Visit: SEPSIS; PNEUMONIA Current Active Problems Pneumonia (Acute) Sepsis (Acute) Hospital Course: Initial Hospital Course: Briefly, this 71 year old male with a PMH of HTN, HLD, CAD s/p multiple stents, systolic heart failure, pulmonary HTN, recurrent pneumonia, repeated thoracenteses, IDDM, presented to the ED with generalized weakness and fatigue. On 07/31 he had a pleural effusion d/t CHF drained a week ago and since has been experiencing severe fatigue and weakness with cough. After recording a fever of 102.1 and rigoring chills he came to the ED. Subsequent Hospital Course/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/DC summary: A: 72 year old female with PMHx of HTN, hyperlipidemia, CAD s/p stenting, recurrent pneumonia, repeated thoratcentesis, IDDM, systolic heart failure, pulmonary HTN, recurrent pneumonia, IDDM, gout, admitted with generalized weakness, fever, chills, and fatigue since undergoing a thoracentesis on 07/31 Plan: 1. Sepsis 2/2 pneumonia - CAP vs. atypical LLL pneumonia - S/p thoracentesis on 07/31 appears to be exudative: Gram stain and cultures negative - 06/04/17 pleural effusion: no malignant cells identified. Reactive mesothelial cells, histiocytes and lymphocytes - CT chest 08/07/17: right middle lobe atelectasis. Also small amount of platelike atelectasis within the right upper lobe. Patchy consolidation left lower lobe, moderate right pleural effusion and trace left pleural effusion. Mild mediastinal lymphadenopathy and trace pericardial effusion - Borderline/enlarged mediastinal lymph nodes noted on all prior CT chest dating back to 02/27/16. Will need outpatient CT follow-up - Completed Tamiflu - s/p azithro/ceftriaxone - Home with augmentin 875 BID x7 days 2. SPIKE on CKD - Cr improved, likely pre renal - Resume home entresto, lasix - Will need further CKD work up as oupt, referral for Dr. Menezes enclosed 3. HTN - Resume home meds - Entresto, coreg 4. CAD s/p stenting - Continue ASA - Continue Plavix - Continue Lipitor - Continue isordil 5. Systolic heart failure - Resume home lasix, entresto on DC 6 IDDM - Resume home insulin regimen Dispo: - Home with above meds and plan for followup Condition: Stable - Instructions Diet, Activity, Other Instructions: Please return to the ED for any new, persistent, or worsening symptoms. Follow up with your PCP in 1 week Resume home medications as directed Complete antibiotic as directed for 7 more days Follow up kidney doctor Clif for continued work up up Follow up with Pulmonary for repeat imaging of cat scan of chest Referrals have been made for above doctors, call and make appointments they are expecting you Referrals: Boris Rojas MD [Primary Care Provider] - Demetrius Bella MD [Staff Physician] - (Follow up for Repeat cat scan for MEDIASTINAL lymphnode ) Layton Menezes MD [Staff Physician] - 1 Week (Make an appt to continue work up for chronic kidney disease in office. Dr. Menezes has office on Wednesdays ) Disposition: HOME - Home Medications Comprehensive Discharge Medication List: Ambulatory Orders Cholecalciferol (Vitamin D3) [Vitamin D3] 1,000 unit PO DAILY 04/03/14 Aspirin [Ecotrin] 81 mg PO DAILY 03/26/16 Vitamin B Complex 1 each PO DAILY 03/26/16 Docusate Sodium 100 mg PO TID capsule 07/18/16 Carvedilol 25 mg PO BID tablet 10/04/16 Glyburide 5 mg PO BID tablet 10/04/16 Sacubitril/Valsartan [Entresto 24 mg-26 mg Tablet] 1 each PO BID tablet Acetaminophen [Tylenol] 650 mg PO QID PRN 11/05/16 Furosemide 40 mg PO DAILY tablet 11/12/16 Gabapentin 300 mg PO BID capsule 11/12/16 Isosorbide Dinitrate 20 mg PO TID tablet 11/12/16 Amoxicillin/Potassium Clav [Augmentin 875-125 Tablet] 1 each PO BID #14 tablet 08/11/17 This patient is new to me today: Yes Date on this admission: 08/12/17 Emergency Visit: Yes ED Registration Date: 08/06/17 Care time: The patient presented to the Emergency Department on the above date and was hospitalized for further evaluation of their emergent condition. Critical Care patient: No - Discharge Referral Referred to [facility] Yes Physician Referral: Boris Rojas MD (Int Med)
[2017-08-11 13:18] VITALS: BP 134/79; PULSE 85; TEMP 97.9
== END 2017-08-11 15:07 | disposition home or self-care (01) | DRG 871 ==
LOC: JER 10:59 → JERBED 14:05 → J8W 15:52
PROVIDERS: ADMIT Internal Medicine; ATTEND Nurse Practitioner Acute Care
DX: A41.9 Sepsis, unspecified organism (principal); J18.9 Pneumonia, unspecified organism; N17.9 Acute kidney failure, unspecified; E23.0 Hypopituitarism; I13.0 Hypertensive heart and chronic kidney disease with heart failure and stage 1 through stage 4 chronic kidney disease, or unspecified chronic kidney disease; I50.20 Unspecified systolic (congestive) heart failure; J90 Pleural effusion, not elsewhere classified; J98.11 Atelectasis; I25.10 Atherosclerotic heart disease of native coronary artery without angina pectoris; E11.9 Type 2 diabetes mellitus without complications; I10 Essential (primary) hypertension; E78.5 Hyperlipidemia, unspecified; I27.20 Pulmonary hypertension, unspecified; K21.9 Gastro-esophageal reflux disease without esophagitis; K58.8 Other irritable bowel syndrome; M10.9 Gout, unspecified; D69.6 Thrombocytopenia, unspecified; N40.0 Benign prostatic hyperplasia without lower urinary tract symptoms; M19.90 Unspecified osteoarthritis, unspecified site; E11.22 Type 2 diabetes mellitus with diabetic chronic kidney disease; N18.9 Chronic kidney disease, unspecified; R59.1 Generalized enlarged lymph nodes; I25.2 Old myocardial infarction; E04.9 Nontoxic goiter, unspecified; Z95.5 Presence of coronary angioplasty implant and graft; Z85.828 Personal history of other malignant neoplasm of skin; Z87.442 Personal history of urinary calculi; Z79.4 Long term (current) use of insulin
CPT/HCPCS: 36415; 71045-TC-FY; 71046-TC-FY; 71250-TC; 76775-TC; 80048; 80053; 81003; 81015; 82436; 82570; 82803; 82962; 83605; 83735; 84100; 84133; 84300; 84484; 84540; 85025; 85610; 85730; 86140; 87040; 87070; 87086; 87205; 87804; 87899; 93005; 93010; 97116-GP; 97161-GP; 99283-25; J1644

== ENCOUNTER 2017-09-10 12:44 | Day surgery (SDC) | payer OTHER, BC ==
[2017-09-09 17:50] VITALS: BMI 27.4
[2017-09-10 13:23] LABS: BASO % 1.4 % (0-2.0); EOS % 4.5 % (0-4.5); HEMATOCRIT 37.3 % (35.4-49); HEMOGLOBIN 12.3 GM/dL (11.7-16.9); LYMPH % 23.4 % (8-40); MEAN CELL VOLUME 96.9 fl (80-96); MEAN PLT VOLUME 9.6 fl (7.5-11.1); MONO % 6.6 % (3.8-10.2); NEUT % 64.1 % (42.8-82.8); PLATELET COUNT 112 K/MM3 (134-434); RBC 3.85 M/mm3 (4.00-5.60); RDW 16.7 % (11.9-15.9); WHITE BLOOD COUNT 5.9 K/mm3 (4.0-10.0)
[2017-09-10 13:32] LABS: INR 1.12 (0.82-1.09); PROTHROMBIN TIME (PATIENT) 12.7 SEC (9.98-11.88)
[2017-09-10 14:22] VITALS: TEMP 98.1
[2017-09-10 19:56] VITALS: PULSE 84
[2017-09-10 19:57] VITALS: BP 148/76
== END 2017-09-10 18:40 | disposition home or self-care (01) ==
LOC: JRADIR 12:44
PROVIDERS: ATTEND Internal Medicine Pulmonary Disease
PROC: 0W9930Z Drainage of Right Pleural Cavity with Drainage Device, Percutaneous Approach (ICD-10-PCS; principal; 2017-09-10)
DX: I50.9 Heart failure, unspecified (principal); J91.8 Pleural effusion in other conditions classified elsewhere
CPT/HCPCS: 32550; 36415; 71045-TC-FY; 76098-TC-FY; 76998-TC; 85025; 85610; 87070; 87075; 87102; 87116; 87205; 87206; 87210; 87899; C1729; C1769; C1894

== ENCOUNTER 2017-09-18 20:42 | Emergency (ER) | payer OTHER, BC ==
--- NOTE | 2017-09-18 20:57 | PDOC ---
Rapid Medical Evaluation Time Seen by Provider: 09/18/17 20:55 Medical Evaluation: Allergies Allergy/AdvReac Type Severity Reaction Status Date / Time pioglitazone HCl [From Actos] AdvReac Severe CHF Verified 09/09/17 17:31 09/18/17 20:56 I have performed a brief in-person evaluation of this patient. The patient presents with a chief complaint of: can't breathe - chronic pleural effusions, has pigtail in but doesn't know how to drain it Pertinent physical exam findings: O2 sat 91 I have ordered the following: nothing The patient will proceed to the ED for further evaluation.
[2017-09-18 21:00] VITALS: TEMP 97.9; BMI 29.0
--- NOTE | 2017-09-18 21:28 | PDOC ---
History of Present Illness - General History Source: Patient, Family <Ilya Ashford - Last Filed: 09/18/17 22:01> - General History Source: Patient, Family, Old Records Exam Limitations: No Limitations - History of Present Illness Initial Comments: 09/18/17 22:24 Patient is a 72 year old male with a significant past medical history of Heart failure, diabetes, (insulin dependent), who presents to the ED for draining of his pleural port. Patient reports having portal drain being placed by Dr. Alvarez last week, stating the last time his port was drained was 6 days. Patient reports experiencing associated shortness of breath as well as slight bilateral leg swelling. As per patient's , she was trained in to drain the port but felt uncomfortable doing the procedure due to the associated Sob. Denies chest pain. Denies nausea, vomiting. Denies diarrhea, constipation, dysuria, hematuria. Denies fevers, chills. Denies any other symptoms. Allergies: Pioglitazone HCL. Social history: No alcohol, No smoking. No illicit drugs. Surgical history: Stents, s/p 1994 PMD: Dr. Mondragon <Padilla Root - Last Filed: 09/18/17 22:25> - General Chief Complaint: Shortness of Breath Stated Complaint: DIFFICULTY BREATHING Time Seen by Provider: 09/18/17 20:55 Past History - Past Medical History Anemia: No Asthma: No Cancer: Yes (skin) Cardiac Disorders: Yes CVA: No COPD: Yes (hx pneumonia) CHF: Yes Dementia: No Diabetes: Yes GI Disorders: No Disorders: No HTN: Yes Hypercholesterolemia: Yes Liver Disease: No Seizures: No Thyroid Disease: No - Surgical History Abdominal Surgery: Yes (HERNIA) Appendectomy: No Cardiac Surgery: Yes (STENTS , 07/2016) Cholecystectomy: No Lung Surgery: No (bronchoscopy 03/17) Neurologic Surgery: No Orthopedic Surgery: No - Immunization History Td Vaccination: Yes Immunization Up to Date: Yes - Suicide/Smoking/Psychosocial Hx Smoking Status: No Smoking History: Unknown if ever smoked Have you smoked in the past 12 months: No Number of Cigarettes Smoked Daily: 0 If you are a former smoker, when did you quit?: 35 YEARS AGO 'Breaking Loose' booklet given: 08/15/15 Hx Alcohol Use: No Drug/Substance Use Hx: No Substance Use Type: None Hx Substance Use Treatment: No <Ilya Ashford - Last Filed: 09/18/17 22:01> <Padilla Root - Last Filed: 09/18/17 22:25> - Past Medical History Allergies/Adverse Reactions: Allergies Allergy/AdvReac Type Severity Reaction Status Date / Time pioglitazone HCl [From Actos] AdvReac Severe CHF Verified 09/18/17 20:56 Home Medications: Ambulatory Orders Cholecalciferol (Vitamin D3) [Vitamin D3] 1,000 unit PO DAILY 04/03/14 Aspirin [Ecotrin] 81 mg PO DAILY 03/26/16 Vitamin B Complex 1 each PO DAILY 03/26/16 Carvedilol 25 mg PO BID tablet 10/04/16 Glyburide 5 mg PO BID tablet 10/04/16 Sacubitril/Valsartan [Entresto 24 mg-26 mg Tablet] 1 each PO BID tablet Furosemide 40 mg PO DAILY tablet 11/12/16 Gabapentin 300 mg PO BID capsule 11/12/16 Isosorbide Dinitrate 20 mg PO TID tablet 11/12/16 Diazepam [Valium] 5 mg PO PRN PRN 09/09/17 Insulin (Novolog) [Novolog] 0 units SQ BID PRN 09/09/17 Review of Systems - Review of Systems Able to Perform ROS?: Yes Comments:: 09/18/17 22:24 CONSTITUTIONAL: Absent: fever, no chills, no fatigue EYES: Absent: visual changes ENT: Absent: ear pain, no sore throat CARDIOVASCULAR: Absent: chest pain, no palpitations RESPIRATORY: +Shortness of breath Absent: cough, no SOB GI: Absent: abdominal pain, no nausea, no vomiting, no constipation, no diarrhea GENITOURINARY: Absent: dysuria, no frequency, no hematuria MUSCULOSKELETAL: Absent: back pain, no arthralgia, no myalgia SKIN: Absent: rash <Padilla Root - Last Filed: 09/18/17 22:25> *Physical Exam - Vital Signs Last Vital Signs Temp Pulse Resp BP Pulse Ox 97.9 F 82 22 170/74 90 L 09/18/17 20:58 09/18/17 20:58 09/18/17 20:58 09/18/17 20:58 09/18/17 20:58 <Ilya Ashford - Last Filed: 09/18/17 22:01> - Vital Signs Last Vital Signs Temp Pulse Resp BP Pulse Ox 97.9 F 88 17 156/69 90 L 09/18/17 20:58 09/18/17 22:20 09/18/17 22:20 09/18/17 22:20 09/18/17 22:20 - Physical Exam Comments: 09/18/17 22:24 GENERAL: Well-appearing, well-nourished. No apparent distress. HEENT: Normocephalic, atraumatic. PERRL, EOM intact. CARDIOVASCULAR: Normal S1, S2. Regular rate and rhythm. CHEST: +Cath lateral right chest with no surrounding erythema. No drainage. Non tender. PULMONARY: +Moderate right decreased breath sounds. +Mild left breath sounds. Clear to auscultation bilaterally. ABDOMEN: Soft, non-distended, non-tender. EXTREMITIES: Normal ROM in all four extremities. No gross deformities. SKIN: Warm, dry. No rash NEUROLOGICAL: No focal neurological deficits. <Padilla Root - Last Filed: 09/18/17 22:25> Medical Decision Making - Medical Decision Making 09/18/17 22:02 Dr. Ashford: The scribe's documentation has been prepared under my direction and personally reviewed by me in its entirery. I confirm that the note above accurately reflects all work, treatment, procedures, and medical decision making performed by me. One liter of fluid drained from right side of chest and pt feels better. Will observe for 20 mins. Check BP and the discharge <Ilya Ashford - Last Filed: 09/18/17 22:01> *DC/Admit/Observation/Transfer - Discharge Dispostion Admit: No <Ilya Ashford - Last Filed: 09/18/17 22:01> - Attestations Scribe Attestion: 09/18/17 22:25 Documentation prepared by Padilla Root, acting as medical aides teacher for Ilya Ashford MD/. <Padilla Root - Last Filed: 09/18/17 22:25> Diagnosis at time of Disposition: Pleural effusion - Discharge Dispostion Disposition: HOME Condition at time of disposition: Stable - Referrals Referrals: Siobhan Mondragon MD [Primary Care Provider] -
[2017-09-18 22:21] VITALS: BP 156/69; PULSE 88
== END 2017-09-18 22:23 | disposition home or self-care (01) ==
LOC: JER 20:42
PROC: 0W9830Z Drainage of Chest Wall with Drainage Device, Percutaneous Approach (ICD-10-PCS; principal; 2017-09-18)
DX: J90 Pleural effusion, not elsewhere classified (principal); Z87.891 Personal history of nicotine dependence; I25.10 Atherosclerotic heart disease of native coronary artery without angina pectoris; I11.0 Hypertensive heart disease with heart failure; Z95.5 Presence of coronary angioplasty implant and graft; E11.9 Type 2 diabetes mellitus without complications; Z79.4 Long term (current) use of insulin; Z79.82 Long term (current) use of aspirin
CPT/HCPCS: 99282-25

== ENCOUNTER 2017-09-29 15:49 | Observation (INO) | payer OTHER, BC ==
--- NOTE | 2017-09-29 15:53 | PDOC ---
Rapid Medical Evaluation Time Seen by Provider: 09/29/17 15:50 Medical Evaluation: Allergies Allergy/AdvReac Type Severity Reaction Status Date / Time pioglitazone HCl [From Actos] AdvReac Severe CHF Verified 09/29/17 15:50 I have performed a brief in-person evaluation of this patient. The patient presents with a chief complaint of: feet swelling x 3 weeks with [place]. has CHF, taking lasix. Uses oxygen at night. Dr. Trujillo instructed him to come in Pertinent physical exam findings: 2+ pitting edema b/l LE. Patient appears pale. Drain in right midaxillary chest - patient drains himself. I have ordered the following: ekg, CXR, labs The patient will proceed to the ED for further evaluation. PMD is Dr. Mondragon Sole Sewer Hand is Dr. Trujillo First Dyer is Dr. Velazquez Discharge Disposition - Diagnosis Leg swelling, Shortness of breath - Referrals - Patient Instructions - Post Discharge Activity
[2017-09-29 16:29] LABS: EOS % 7.1 % (0-4.5); HEMATOCRIT 37.4 % (35.4-49); HEMOGLOBIN 12.8 GM/dL (11.7-16.9); LYMPH % 29.6 % (8-40); MCH 32.7 pg (25.7-33.7); MCHC 34.2 g/dl (32.0-35.9); MEAN CELL VOLUME 95.8 fl (80-96); MEAN PLT VOLUME 9.4 fl (7.5-11.1); MONO % 7.8 % (3.8-10.2); NEUT % 54.5 % (42.8-82.8); PLATELET COUNT 145 K/MM3 (134-434); WHITE BLOOD COUNT 4.8 K/mm3 (4.0-10.0)
[2017-09-29 16:54] LABS: ALBUMIN 2.8 g/dl (3.4-5.0); ANION GAP 1 (8-16); BILIRUBIN,TOTAL 0.9 mg/dL (0.2-1.0); CALCIUM 8.2 mg/dL (8.5-10.1); CHLORIDE 111 mmol/L (98-107); CO2 30 mmol/L (21-32); CREATININE 1.4 mg/dL (0.7-1.3); GLUCOSE,RANDOM 218 mg/dL (74-106); SGPT/ALT 21 U/L (12-78); SODIUM 142 mmol/L (136-145); TOT PROT 6.6 g/dl (6.4-8.2)
[2017-09-29 16:57] LABS: ALK PHOS 134 U/L (45-117); BLOOD UREA NITROGEN 46 mg/dL (7-18); N-TERMINAL BNP 4030.34 pg/ml (5-125)
--- NOTE | 2017-09-29 17:10 | PDOC ---
History of Present Illness - General Chief Complaint: Edema Stated Complaint: SWOLLEN LEGS Time Seen by Provider: 09/29/17 15:50 - History of Present Illness Initial Comments: 09/29/17 17:44 The patient is a 72 year old male with a history of HTN, HLD, COPD, DM, CHF, Pleural effusions who presents for evaluation of lower extremity edema. The patient reports worsening bilateral lower extremity edema over the past 3 weeks. 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 Trujillo who informed the patient that he should be evaluated in the ED. The patient reports worsening SOB as well and has a pleural drain in place for chronic pleural effusion due to his CHF. The patient otherwise denies fevers, chills, chest pain, nausea, vomiting, abdominal pain, or changes with urination or bowel movements. Past History - Past Medical History Allergies/Adverse Reactions: Allergies Allergy/AdvReac Type Severity Reaction Status Date / Time pioglitazone HCl [From Actos] AdvReac Severe CHF Verified 09/29/17 15:50 Home Medications: Ambulatory Orders Cholecalciferol (Vitamin D3) [Vitamin D3] 1,000 unit PO DAILY 04/03/14 Aspirin [Ecotrin] 81 mg PO DAILY 03/26/16 Vitamin B Complex 1 each PO DAILY 03/26/16 Carvedilol 25 mg PO BID tablet 10/04/16 Glyburide 5 mg PO BID tablet 10/04/16 Sacubitril/Valsartan [Entresto 24 mg-26 mg Tablet] 1 each PO BID tablet Furosemide 40 mg PO DAILY tablet 11/12/16 Gabapentin 300 mg PO BID capsule 11/12/16 Isosorbide Dinitrate 20 mg PO TID tablet 11/12/16 Insulin (Novolog) [Novolog] 0 units SQ BID PRN 09/09/17 Anemia: No Asthma: No Cancer: Yes (skin) Cardiac Disorders: Yes (cad) CVA: No COPD: Yes (hx pneumonia) CHF: Yes Dementia: No Diabetes: Yes GI Disorders: No Disorders: No HTN: Yes Hypercholesterolemia: Yes Liver Disease: No Seizures: No Thyroid Disease: No - Surgical History Abdominal Surgery: Yes (HERNIA) Appendectomy: No Cardiac Surgery: Yes (STENTS , 07/2016) Cholecystectomy: No Lung Surgery: No (bronchoscopy 10/16) Neurologic Surgery: No Orthopedic Surgery: No - Immunization History Td Vaccination: Yes Immunization Up to Date: Yes - Suicide/Smoking/Psychosocial Hx Smoking Status: No Smoking History: Former smoker Have you smoked in the past 12 months: No Number of Cigarettes Smoked Daily: 0 If you are a former smoker, when did you quit?: 35 YEARS AGO Information on smoking cessation initiated: No 'Breaking Loose' booklet given: 08/15/15 Hx Alcohol Use: No Drug/Substance Use Hx: No Substance Use Type: None Hx Substance Use Treatment: No Review of Systems - Review of Systems Comments:: 09/29/17 18:04 Constitutional: No fevers, chills, fatigue, malaise HEENT: No Rhinorrhea, nasal congestion, visual changes Cardiovascular: No chest pain, syncope, palpitations, lightheadedness Respiratory: SOB. No Cough, Hemoptysis, Gastrointestinal: No Abdominal pain, Nausea, Vomiting, Constipation, Diarrhea, Melena Genitourinary: No Dysuria, Frequency, Urgency, Hesitancy, Hematuria, Flank pain Musculoskeletal: Lower Extremity Swelling. No Myalgia, arthralgia Skin: No rashes, itching, bruising, pallor Neurologic: No Headache, Dizziness, Numbness, Weakness, or Tingling Psychiatric: No Hallucinations. No SI or HI *Physical Exam - Vital Signs Last Vital Signs Temp Pulse Resp BP Pulse Ox 98.3 F 73 18 167/91 95 09/29/17 15:50 09/29/17 15:50 09/29/17 15:50 09/29/17 15:50 09/29/17 15:50 - Physical Exam Comments: 09/29/17 18:04 General Appearance: Nourished. No Apparent Distress HEENT: EOMI, [place]. No Pharyngeal Erythema, Tonsillar Exudate, Tonsillar Erythema Neck: No Cervical Lymphadenopathy Respiratory/Chest: Lungs Clear, Normal Breath Sounds. Bibasilar Rales noted on exam. No Rhonchi, Wheezing Cardiovascular: Regular Rhythm, Regular Rate. No Murmur, Gallops, Rubs Gastrointestinal/Abdominal: Normal Bowel Sounds, Soft. No Guarding, Rebound, Tenderness Musculoskeletal: No CVA Tenderness Extremity: 3+ pitting edema in the lower extremities bilaterally to the knee. Normal Capillary Refill Integumentary: Normal Color, Dry, Warm Neurologic: Fully Oriented, Alert, Normal Mood/Affect, Normal Response, Heart Score/ECG Review #1 ECG reviewed & interpreted by me at: 17:30 General ECG Interpretation: Sinus Rhythm, Normal Rate, Normal Intervals, No acute ischemic changes Compared to previous ECG there are: No significant change (08/07/17) ED Treatment Course - LABORATORY CBC & Chemistry Diagram: 09/29/17 16:15 09/29/17 16:15 - ADDITIONAL ORDERS Additional order review: 09/29/17 16:15 RBC 3.90 L MCV 95.8 MCHC 34.2 RDW 16.0 H MPV 9.4 Neutrophils % 54.5 Lymphocytes % 29.6 D Monocytes % 7.8 Eosinophils % 7.1 H Basophils % 1.0 Medical Decision Making - Medical Decision Making 09/29/17 18:05 The patient is a 72 year old male with a history of HTN, HLD, COPD, DM, CHF, Pleural effusions who presents for evaluation of lower extremity edema. Differential includes but is not limited to: CHF, Fluid Overload, Dependent Edema, Infectious, Metabolic derangement. Given the patient's history of CHF, his symptoms are likely due to CHF or fluid overload. We will obtain a cbc, cmp , troponin, bnp, chest plain film, and ekg to evaluate further for possible etiologies. We will treat in the ED with iv lasix and the patient will likely require admission for further management. We will continue to monitor and reassess. 09/29/17 19:16 CBC, cmp, troponin, is unremarkable. BNP is elevated to 4000s. Chest plain film is unchanged from previous as preliminarily read by ER physician. We discussed the case with Dr. Mondragon who agrees to accept the patient for observation admission. *DC/Admit/Observation/Transfer Diagnosis at time of Disposition: Leg swelling, Shortness of breath - Discharge Dispostion Condition at time of disposition: Stable Admit: Yes - Referrals - Patient Instructions - Post Discharge Activity
[2017-09-29] MEDS ORDERED: FUROSEMIDE 40 MG/4 ML INJECTABLE VIAL IVPUSH ONE (17:11)
[2017-09-29 18:03] LABS: POTASSIUM 5.3 mmol/L (3.5-5.1); SGOT/AST 18 U/L (15-37)
[2017-09-29] MEDS ORDERED: FUROSEMIDE 40 MG/4 ML INJECTABLE VIAL ONE (18:05)
--- NOTE | 2017-09-29 18:58 | PDOC ---
Attending Attestation - HPI HPI: 09/29/17 19:00 Pt is a 72 yo M with a PMHx of HTN, HLD, COPD, DM, CHF, Pleural effusions who presents to the ED with worsening bilateral lower extremity edema for the past 3 weeks. Patient reports occasional SOB however this improves after he drains fluids off his lung using the pig tail catheter in his R lung. He was able to drain fluid off this morning and thus denies SOB today. He called Dr. Trujillo today about the LE edema, however, and he recommended that he come to the ED for evaluation. Denies chest pain, palpitations, diaphoresis, headache or dizziness. Denies F/C, weakness, abd pain. Has been compliant with PO lasix at home. PCP: Dr. Goetz - Physicial Exam PE: 09/29/17 19:00 GENERAL: Awake, alert, and fully oriented, in no acute distress HEAD: No signs of trauma EYES: PERRLA, EOMI, sclera anicteric, conjunctiva clear ENT: Auricles normal inspection, hearing grossly normal, nares patent, oropharynx clear without exudates. Moist mucosa NECK: Normal ROM, supple, no lymphadenopathy, JVD, or masses LUNGS: R sided pig tail catheter in place, dressed with sterile gauze with no erythema or drainage. breath sounds equal, clear to auscultation bilaterally. No wheezes, and no crackles HEART: Regular rate and rhythm, normal S1 and S2, no murmurs, rubs or gallops ABDOMEN: Soft, nontender, normoactive bowel sounds. No guarding, no rebound. No masses EXTREMITIES: Normal range of motion. No clubbing or cyanosis. No cords, erythema , or tenderness. +2+ pitting edema bilterally, R slightly greater than L. BACK: No midline spinal tenderness in cervical/thoracic/lumbar region NEUROLOGICAL: Normal speech, cranial nerves intact, negative pronator drift, 5/ 5 strength in all 4 extremities, normal sensation to light touch in all 4 extremities, normal cerebellar exam, normal gait, normal reflexes and tone SKIN: Warm, Dry, normal turgor, no rashes or lesions noted. - Medical Decision Making 09/29/17 19:00 Documentation prepared by Dorota Newton, acting as emergency medicine medical director for Sanna Marrufo MD 04/30/18 18:[address] Raymond via cell phone number. Message left. 09/29/17 19:[address] Raymond via cell phone number. Message left. 09/29/17 19:08 Dr. Trujillo returned the call and the patient's case was discussed. <Dorota Newton - Last Filed: 09/29/17 19:06> - Resident Resident Name: Aman Rios - ED Attending Attestation I have performed the following: I have examined & evaluated the patient, The case was reviewed & discussed with the resident, I agree w/resident's findings & plan, Exceptions are as noted - Medical Decision Making 09/29/17 18:56 72yo M with MMP including CHF presents to the ED c/o 3 weeks of progressive LE edema. BP elevated on arrival, on my exam 154/80. Exam with 2+ LE pitting edema R>L. Likely 2/2 fluid overload, will treat with lasix 40mg IV. Will get US to eval for DVT. WIll discuss with Dr. Trujillo re dispo since he sent him in. 09/29/17 19:26 BNP elevated to 4000s's. Pt given 4mg lasix. Will admit for diureses. Case discussed with Dr. goetz who accepts pt for admission. <Sanna Marrufo - Last Filed: 10/01/17 00:04>
[2017-09-29] MEDS ORDERED: ATORVASTATIN CA 80 MG TABLET (FP) PO SCH (22:00)
--- NOTE | 2017-09-29 22:10 | HP ---
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 This is a 72 yo male who recently presented to my office for a "meet and great the doctor visit". He has h/o CHF with recurrent pleural right effusions since August. While on a dose of Lasix 80 mg daily he developed pleural effusion which required thoracentesis twice in August, each time with the extraction of 1000cc fluid. The 3rd time when he presented to the hospital for thoracentesis a pigtail pleural catheter was inserted. Since then he is extracting approximately 1 l of fluid every week. Post thoracentesis his dose of Lasix was decreased to 40 mg po daily. This morning although the patient did not have dyspnea he drained 1 l of fluid and then he came to ER. In ER he received 40mg of Lasix with an output of approximately 2000 cc. He denies any chest pain, he is not coughing amd his edema of the lower extremities decreased significantly since. 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: Peripheral Neuropathy Cardiovascular: Yes: CAD (prior anterolateral ME 03/1995 w/ PCI of LAD & ramus, PCI of LAD 05/1996 (with 100% occluded ramus and patent RCA), rotoblator & PCI w / Xience stent prox LAD & prox/mid Cfx 07/30/16), CHF, Hyperlipdemia, ME ( anterolateral ME 1994) Pulmonary: Yes: Pneumonia (03/2016), Other (Chronic right pleural effusion ) Gastrointestinal: Yes: GERD, Irritable Bowel Disease Renal/: Yes: Renal Inusuff, BPH, Renal Calculi Musculoskeletal: Yes: Osteoarthritis Rheumatology: Yes: Gout Endocrine: Yes: Diabetes Mellitus, Other (Hypogonadism, nodular goiter) - Past Surgical History Past Surgical History: Yes: Cataract Removal (bilateral), Hernia Repair ( umbillical) - Smoking History Smoking history: Former smoker Have you smoked in the past 12 months: No Aproximately how many cigarettes per day: 0 If you are a former smoker, when did you quit?: 35 YEARS AGO - Alcohol/Substance Use Hx Alcohol Use: No History of Substance Use: reports: None - Social History ADL: Independent History of Recent Travel: No Home Medications - Allergies Allergies/Adverse Reactions: Allergies Allergy/AdvReac Type Severity Reaction Status Date / Time pioglitazone HCl [From Actos] AdvReac Severe CHF Verified 09/29/17 15:50 - Home Medications Home Medications: Ambulatory Orders Cholecalciferol (Vitamin D3) [Vitamin D3] 1,000 unit PO DAILY 04/03/14 Aspirin [Ecotrin] 81 mg PO DAILY 03/26/16 Vitamin B Complex 1 each PO DAILY 03/26/16 Carvedilol 25 mg PO BID tablet 10/04/16 Glyburide 5 mg PO BID tablet 10/04/16 Furosemide 40 mg PO DAILY tablet 11/12/16 Gabapentin 300 mg PO BID capsule 11/12/16 Isosorbide Dinitrate 20 mg PO TID tablet 11/12/16 Insulin (Novolog) [Novolog] 0 units SQ BID PRN 09/09/17 Allopurinol [Zyloprim -] 100 mg PO DAILY tablet 09/30/17 Aspirin [ASA -] 81 mg PO DAILY tab.chew 09/30/17 Atorvastatin Ca [Lipitor] 80 mg PO HS tablet 09/30/17 Carvedilol [Coreg -] 25 mg PO BID tablet 09/30/17 Clopidogrel Bisulfate [Plavix -] 75 mg PO DAILY tablet 09/30/17 Docusate Sodium [Colace -] 300 mg PO HS capsule 09/30/17 Furosemide [Lasix -] 40 mg PO DAILY tablet 09/30/17 Gabapentin [Neurontin -] 100 mg PO BID capsule 09/30/17 Insulin Sliding Scale [Novolog Vial Sliding Scale -] 1 vial SQ ACHS units 09/30 Isosorbide Dinitrate [Isordil -] 20 mg PO TIDISORDIL tablet 09/30/17 Sacubitril/Valsartan [Entresto 49 mg-51 mg Tablet] 1 tab PO BID tablet Family Disease History - Family Disease History Family Disease History: Heart Disease: Mother (CHF) Review of Systems - Review of Systems Constitutional: reports: No Symptoms Eyes: reports: No Symptoms HENT: reports: No Symptoms Neck: reports: No Symptoms Cardiovascular: reports: Edema Respiratory: reports: No Symptoms Gastrointestinal: reports: Constipation Genitourinary: reports: No Symptoms Breasts: reports: No Symptoms Reported Musculoskeletal: reports: No Symptoms Integumentary: reports: Erythema (serpiginous in shape located on the left forearm) Neurological: reports: No Symptoms Endocrine: reports: No Symptoms Hematology/Lymphatic: reports: No Symptoms Psychiatric: reports: No Symptoms Physical Examination Vital Signs: Vital Signs Temperature 98.3 F 09/29/17 15:50 Pulse Rate 74 09/29/17 20:50 Respiratory Rate 20 09/29/17 20:50 Blood Pressure 158/87 09/29/17 20:50 O2 Sat by Pulse Oximetry (%) 95 09/29/17 20:50 Labs: CBC, BMP 09/29/17 16:15 09/29/17 16:15 Problem List - Problems (1) CHF (congestive heart failure) Assessment/Plan: restart LAsix 40 mg po daily increase Entresto to 49/51 mg po bid ECHO in am Code(s): I50.9 - HEART FAILURE, UNSPECIFIED (2) Pleural effusion Assessment/Plan: recurrent, unfortunately the patient continues to collect fluid, once pigtail catheter is inserted there is a lower likelihood that the fluid will resolve spontaneously Code(s): J90 - PLEURAL EFFUSION, NOT ELSEWHERE CLASSIFIED (3) CHF (congestive heart failure), NYHA class III Assessment/Plan: increased Entresto 49/51 mg bid maintain same dosage of Lasix 40 mg daily po monitor BUN/Creatinine monitor weight EChO in am Code(s): I50.9 - HEART FAILURE, UNSPECIFIED Qualifiers: Congestive heart failure type: systolic Congestive heart failure chronicity : chronic Qualified Code(s): I50.22 - Chronic systolic (congestive) heart failure (4) Diabetes 1.5, managed as type 2 Assessment/Plan: accuchecks and add Glipizide Code(s): E10.9 - TYPE 1 DIABETES MELLITUS WITHOUT COMPLICATIONS (5) CKD (chronic kidney disease) Assessment/Plan: monitor kidney function Code(s): N18.9 - CHRONIC KIDNEY DISEASE, UNSPECIFIED
[2017-09-29] MEDS: GABAPENTIN 100 MG CAPSULE (FP) PO SCH (23:05)
[2017-09-29] MEDS: SACUBITRIL/VALSARTAN 49 MG-51 MG TABLET PO SCH (23:05)
[2017-09-29] MEDS: CARVEDILOL 25 MG TABLET (FP) PO SCH (23:05)
[2017-09-29] MEDS: ISOSORBIDE DINITRATE 20 MG TABLET (FP) PO SCH (23:06)
[2017-09-29] MEDS: INSULIN SLIDING SCALE (NOVOLOG) 1 VIAL SQ SCH (23:43)
[2017-09-30 01:08] VITALS: BMI 27.6
[2017-09-30] MEDS: INSULIN SLIDING SCALE (NOVOLOG) 1 VIAL SQ SCH ×2 (06:13→12:13)
[2017-09-30] MEDS ORDERED: glipiZIDE 5 MG TABLET (FP) PO SCH (07:00)
[2017-09-30 07:47] LABS: ALBUMIN 2.4 g/dl (3.4-5.0); ANION GAP 3 (8-16); BLOOD UREA NITROGEN 42 mg/dL (7-18); CALCIUM 7.8 mg/dL (8.5-10.1); CHLORIDE 109 mmol/L (98-107); CO2 30 mmol/L (21-32); CREATININE 1.2 mg/dL (0.7-1.3); GLUCOSE,RANDOM 123 mg/dL (74-106); SGOT/AST 10 U/L (15-37); SGPT/ALT 16 U/L (12-78); SODIUM 142 mmol/L (136-145)
[2017-09-30 07:49] LABS: ALK PHOS 95 U/L (45-117); BILIRUBIN,TOTAL 1.1 mg/dL (0.2-1.0); TOT PROT 5.5 g/dl (6.4-8.2)
[2017-09-30] MEDS ORDERED: PT OWN MED DRAWER 7, Y5N ONE ×2 (09:16→11:21)
[2017-09-30] MEDS: CARVEDILOL 25 MG TABLET (FP) PO SCH (09:38)
[2017-09-30] MEDS: ISOSORBIDE DINITRATE 20 MG TABLET (FP) PO SCH ×2 (09:39→14:44)
[2017-09-30] MEDS: GABAPENTIN 100 MG CAPSULE (FP) PO SCH (09:39)
[2017-09-30] MEDS ORDERED: ALLOPURINOL 100 MG TABLET (FP) PO SCH (10:00)
[2017-09-30] MEDS ORDERED: CLOPIDOGREL BISULFATE 75 MG TABLET (FP) PO SCH (10:00)
[2017-09-30] MEDS ORDERED: ASPIRIN 81 MG CHEWABLE TABLETS PO SCH (10:00)
[2017-09-30] MEDS ORDERED: FUROSEMIDE 40 MG TABLET (FP) PO SCH (10:00)
[2017-09-30] MEDS: SACUBITRIL/VALSARTAN 49 MG-51 MG TABLET PO SCH (11:12)
--- NOTE | 2017-09-30 11:51 | PN ---
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 (short form) - Note 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: PULMONARY CONSULTATION DICTATED 09/30/17 IMP ACUTE ON CHRONIC CHF ASHD S/P ND ,S/P STENT CHRONIC R PLEURAL EFFUSION S/P PLEUR-X ACUTE ON CHRONIC KIDNEY DISEASE COPD HTN HLD PLAN LASIX O2 PRN ENTRESTO MONITOR LYTES,RENAL FUNCTION DAILY WTS DR JESNEN Problem List - Problems (1) [id number] kidney injury Code(s): N17.9 - ACUTE KIDNEY FAILURE, UNSPECIFIED; N18.9 - CHRONIC KIDNEY DISEASE, UNSPECIFIED (2) Leg swelling Code(s): M79.89 - OTHER SPECIFIED SOFT TISSUE DISORDERS (3) Shortness of breath Code(s): R06.02 - SHORTNESS OF BREATH (4) CHF (congestive heart failure) Code(s): I50.9 - HEART FAILURE, UNSPECIFIED (5) Diabetes Code(s): E11.9 - TYPE 2 DIABETES MELLITUS WITHOUT COMPLICATIONS Qualifiers: Diabetes mellitus type: type 2 Diabetes mellitus complication status: with kidney complications Diabetes mellitus complication detail: with chronic kidney disease (6) Pleural effusion Code(s): J90 - PLEURAL EFFUSION, NOT ELSEWHERE CLASSIFIED (7) CAD (coronary artery disease) Code(s): I25.10 - ATHSCL HEART DISEASE OF [place] CORONARY ARTERY W/O ANG PCTRS Qualifiers: Coronary Disease-Associated Artery/Lesion type: [place] artery [place] vs. transplanted heart: [place] heart Associated angina: with unspecified angina Qualified Code(s): I25.119 - Atherosclerotic heart disease of [place] coronary artery with unspecified angina pectoris (8) HTN (hypertension) Code(s): I10 - ESSENTIAL (PRIMARY) HYPERTENSION Qualifiers: Hypertension type: essential hypertension Qualified Code(s): I10 - Essential (primary) hypertension (9) Hyperlipidemia Code(s): E78.5 - HYPERLIPIDEMIA, UNSPECIFIED Qualifiers: Hyperlipidemia type: unspecified Qualified Code(s): E78.5 - Hyperlipidemia , unspecified
[2017-09-30] MEDS ORDERED: DOCUSATE SODIUM 100 MG CAPSULE (FP) PO PRN (11:52)
--- NOTE | 2017-09-30 12:20 | CONS ---
DATE OF CONSULTATION: 09/30/2017 REFERRING PHYSICIAN: Siobhan Mondragon MD HISTORY: The patient is a 72-year-old white male known to me from previous hospitalizations as well as office follow up with past medical history of chronic obstructive pulmonary disease, history of CHF, chronic right pleural effusion requiring multiple thoracenteses status post PleurX catheter about a month ago, hyperlipidemia, hypertension, diabetes admitted to [facility] with the complaint of increasing lower extremity edema. He states that the past 3 weeks he was diagnosed with increasing lower extremity edema as well as some dyspnea on exertion. He denied any chest pain, nausea, vomiting, or diaphoresis. He denied hemoptysis. He presented to the emergency room. In the ER, he was administered Lasix 40 mg with good clinical response and transferred to telemetry unit for further monitoring. He denies any chest pain or palpitations. He states that since his PleurX was inserted his breathing is much improved. He denies any fevers, weight loss, or night sweats. He denies any history of occupational exposures to chemicals or fumes. He has a history of smoking and quit greater than 35 years ago. PAST MEDICAL HISTORY: Again includes ASHD, status post CA, status post stents, hypertension, CHF, chronic right pleural effusion, exudate by protein criteria, which may be explained by chronicity of effusion. Otherwise, the other lab values of LDH and cholesterol level are all consistent with transudate. Hypertension, hyperlipidemia, COPD. REVIEW OF SYSTEMS: No orthopnea, no PND, no chest pain, no palpitations, no nausea, no vomiting. Positive mild dyspnea. Positive lower extremity edema. CURRENT MEDICATIONS: Include Neurontin, Entresto, Zyloprim, Coreg, Lipitor, Norvasc, Lasix, Isordil, aspirin, Plavix, and Glucotrol. PHYSICAL EXAMINATION: General: The patient is a well-developed, well-nourished male awake and alert currently in no acute distress. Vital Signs: He is afebrile. Blood pressure 138/58, respiratory rate 20, weight 169 pounds, O2 saturation 95% on room air. HEENT: Normocephalic and atraumatic. Neck: Supple. Heart: Regular S1, S2. Chest: A few crackles at the right base. Abdomen: Soft. Bowel sounds are positive. Extremities: Trace lower extremity edema. LABORATORIES: WBC 4.8, hemoglobin 12.8, hematocrit 37.4 with a platelet count of 145,000. BUN 42, creatinine 1.2. BNP 4030. Chest x-ray: Some pleural fluid and atelectasis of the right base. IMPRESSION: 1. Acute on chronic congestive heart failure. 2. Acute on chronic kidney disease. 3. Chronic obstructive pulmonary disease. 4. Chronic right pleural effusion status post PleurX catheter. 5. Hypertension. 6. Hyperlipidemia. 7. Arteriosclerotic heart disease status post myocardial infarction status post stents. PLAN: Give Lasix. Supplemental O2 p.r.n. Inhaled bronchodilators p.r.n. PleurX drainage as required if patient develops increasing respiratory distress. LIBBY JENSEN M.D. RICHARD/[id number] MTDD
[2017-09-30] MEDS ORDERED: MAG HYDROX/AL HYDROX/SIMETH 30 ML UNIT-DOSE CUP PO ONE (12:29)
[2017-09-30] MEDS ORDERED: MAGNESIUM HYDROX 2400MG/30ML ORAL SUSPENSION 30 ML CUP PO ONE (13:15)
[2017-09-30 15:18] VITALS: BP 131/61; PULSE 63; TEMP 98.3
--- NOTE | 2017-09-30 15:30 | DS ---
Physical Examination Vital Signs: Vital Signs Temperature 98.3 F 09/30/17 13:00 Pulse Rate 63 09/30/17 13:00 Respiratory Rate 20 09/30/17 13:00 Blood Pressure 131/61 09/30/17 13:00 O2 Sat by Pulse Oximetry (%) 95 09/30/17 12:45 Findings/Remarks: 72 yo male admitted for edema of thew lower extremities. He was given IV LAsix 40 mg once and responded very well to the treatment with significant diuresis totalinf approximately 2 l fluid Constitutional: Yes: No Distress Eyes: Yes: Conjunctiva Clear HENT: Yes: Atraumatic, Normocephalic Neck: Yes: Supple, Trachea Midline Cardiovascular: Yes: Regular Rate and Rhythm, S1, S2 Respiratory: Yes: Regular, CTA Bilaterally. No: Cough, Orthopnea, Rales, Rhonchi, Tachypnea, Wheezes Gastrointestinal: Yes: Normal Bowel Sounds, Soft, Abdomen, Obese. No: Ascites, Hepatomegaly, Splenomegaly Extremities: No: Calf Tenderness Edema: No Peripheral Pulses WNL: Yes Neurological: Yes: Alert, Oriented Psychiatric: Yes: Alert, Oriented Labs: CBC, BMP 09/29/17 16:15 09/30/17 06:00 Discharge Summary Reason For Visit: SWELLING OF LOWER EXTREMITY Current Active Problems [id number] kidney injury (Acute) Diabetes 1.5, managed as type 2 (Acute) Leg swelling (Acute) Shortness of breath (Acute) Hospital Course: Uneventful hospital course and response to IV LAsix. The patient's dose of Entresto was increased to 49/51 mg twice daily. The patient is tolerating very well and currently he has no dyspnea, no edema and no cough. Condition: Stable - Instructions Referrals: Siobhan Mondragon MD [Primary Care Provider] - Disposition: HOME - Home Medications Comprehensive Discharge Medication List: Ambulatory Orders Cholecalciferol (Vitamin D3) [Vitamin D3] 1,000 unit PO DAILY 04/03/14 Aspirin [Ecotrin] 81 mg PO DAILY 03/26/16 Vitamin B Complex 1 each PO DAILY 03/26/16 Carvedilol 25 mg PO BID tablet 10/04/16 Glyburide 5 mg PO BID tablet 10/04/16 Sacubitril/Valsartan [Entresto 24 mg-26 mg Tablet] 1 each PO BID tablet Furosemide 40 mg PO DAILY tablet 11/12/16 Gabapentin 300 mg PO BID capsule 11/12/16 Isosorbide Dinitrate 20 mg PO TID tablet 11/12/16 Insulin (Novolog) [Novolog] 0 units SQ BID PRN 09/09/17
[2017-09-30] MEDS ORDERED: DOCUSATE SODIUM 100 MG CAPSULE (FP) PO SCH (22:00)
--- NOTE | 2017-10-01 10:36 | EKG ---
Test Reason : Blood Pressure : / mmHG Vent. Rate : 068 BPM Atrial Rate : 068 BPM P-R Int : 186 ms QRS Dur : 120 ms QT Int : 430 ms P-R-T Axes : 051 -47 079 degrees QTc Int : 457 ms SINUS RHYTHM WITH PREMATURE ATRIAL COMPLEXES LEFT AXIS DEVIATION ANTEROSEPTAL INFARCT (CITED ON OR BEFORE 06-AUG-2017) ABNORMAL ECG WHEN COMPARED WITH ECG OF 07-AUG-2017 09:24, PREMATURE ATRIAL COMPLEXES ARE NOW PRESENT QUESTIONABLE CHANGE IN INITIAL FORCES OF SEPTAL LEADS Confirmed by KINA ANDERSON, CLAUDY ([id number]) on 10/01/2017 10:36:30 AM Referred By: Confirmed By:CLAUDY CASTANON MD
== END 2017-09-30 16:28 | disposition home or self-care (01) ==
LOC: JER 15:49 → JERBED 19:18 → J4S 23:17
PROVIDERS: ADMIT Internal Medicine; ATTEND Internal Medicine
PROC: 3E033GC Introduction of Other Therapeutic Substance into Peripheral Vein, Percutaneous Approach (ICD-10-PCS; principal; 2017-09-29)
PROC: 3E013VG Introduction of Insulin into Subcutaneous Tissue, Percutaneous Approach (ICD-10-PCS; 2017-09-29)
DX: I50.23 Acute on chronic systolic (congestive) heart failure (principal); E10.22 Type 1 diabetes mellitus with diabetic chronic kidney disease; I12.9 Hypertensive chronic kidney disease with stage 1 through stage 4 chronic kidney disease, or unspecified chronic kidney disease; N17.9 Acute kidney failure, unspecified; N18.9 Chronic kidney disease, unspecified; J90 Pleural effusion, not elsewhere classified; I25.2 Old myocardial infarction; I25.10 Atherosclerotic heart disease of native coronary artery without angina pectoris; R60.0 Localized edema; R06.02 Shortness of breath; E78.5 Hyperlipidemia, unspecified; J44.9 Chronic obstructive pulmonary disease, unspecified; Z97.8 Presence of other specified devices; G62.9 Polyneuropathy, unspecified; Z79.82 Long term (current) use of aspirin; Z87.891 Personal history of nicotine dependence; Z79.4 Long term (current) use of insulin; Z79.84 Long term (current) use of oral hypoglycemic drugs; Z95.5 Presence of coronary angioplasty implant and graft; Z85.828 Personal history of other malignant neoplasm of skin
CPT/HCPCS: 36415; 71046-TC-FY; 80053; 82550; 82962; 83880; 84484; 85025; 87081; 93005; 93010; 93306-TC; 93970-TC; 96372; 96374; 99285-25; G0378

== ENCOUNTER 2017-10-30 15:36 | Observation (INO) | payer OTHER, BC ==
--- NOTE | 2017-10-30 15:48 | PDOC ---
Rapid Medical Evaluation Chief Complaint: Pain Time Seen by Provider: 10/30/17 15:44 Medical Evaluation: Allergies Allergy/AdvReac Type Severity Reaction Status Date / Time pioglitazone HCl [From Actos] AdvReac Severe CHF Verified 10/30/17 15:41 I have performed a brief in-person evaluation of this patient. The patient presents with a chief complaint of: blood coming from his pleural effusion chest drain. Patient is on Plavix and aspirin Pertinent physical exam findings: bloody fluid in bottle I have ordered the following: labs, CXR The patient will proceed to the ED for further evaluation. Discharge Disposition - Diagnosis Pleural effusion - Referrals - Patient Instructions - Post Discharge Activity
[2017-10-30 16:06] LABS: BASO % 1.4 % (0-2.0); EOS % 5.6 % (0-4.5); HEMOGLOBIN 12.4 GM/dL (11.7-16.9); LYMPH % 28.8 % (8-40); MCH 31.1 pg (25.7-33.7); MCHC 32.6 g/dl (32.0-35.9); MEAN CELL VOLUME 95.6 fl (80-96); MEAN PLT VOLUME 8.8 fl (7.5-11.1); MONO % 9.4 % (3.8-10.2); NEUT % 54.8 % (42.8-82.8); PLATELET COUNT 140 K/MM3 (134-434); RBC 3.97 M/mm3 (4.00-5.60); RDW 15.7 % (11.9-15.9); WHITE BLOOD COUNT 4.4 K/mm3 (4.0-10.0)
[2017-10-30 16:17] LABS: INR 1.01 (0.82-1.09); PROTHROMBIN TIME (PATIENT) 11.4 SEC (9.7-13.0)
[2017-10-30 16:20] LABS: ACTIVATED PTT 33.1 SECONDS (26.9-34.4)
[2017-10-30 16:39] LABS: ALBUMIN 2.7 g/dl (3.4-5.0); ALK PHOS 125 U/L (45-117); ANION GAP 7 (8-16); BILIRUBIN,TOTAL 0.5 mg/dL (0.2-1.0); BLOOD UREA NITROGEN 58 mg/dL (7-18); CALCIUM 8.2 mg/dL (8.5-10.1); CHLORIDE 115 mmol/L (98-107); CO2 22 mmol/L (21-32); CREATININE 1.6 mg/dL (0.7-1.3); GLUCOSE,RANDOM 204 mg/dL (74-106); POTASSIUM 5.4 mmol/L (3.5-5.1); SGOT/AST 8 U/L (15-37); SGPT/ALT 20 U/L (12-78); SODIUM 144 mmol/L (136-145); TOT PROT 6.4 g/dl (6.4-8.2)
--- NOTE | 2017-10-30 16:56 | PDOC ---
History of Present Illness - General Chief Complaint: Pain Stated Complaint: RECTAL BLEEDING Time Seen by Provider: 10/30/17 15:44 - History of Present Illness Initial Comments: 10/30/17 17:38 The patient is a 72 year old male with a history of HTN, HLD, DM, CHF, Pleural Effusions s/p Right Pleural Fluid Drain who presents for concerns of bloody pleural fluid. The patient reports noting blood after draining his pleural fluid 3 days ago and again today prompting his presentation to the ED for further evaluation. The patient follows with Dr. Trujillo who sent the patient in for admission given the new blood in the pleural fluid. The patient otherwise denies fevers, chills, SOB, chest pain, abdominal pain, nausea, vomiting, or changes with urination or bowel movements. Past History - Past Medical History Allergies/Adverse Reactions: Allergies Allergy/AdvReac Type Severity Reaction Status Date / Time pioglitazone HCl [From Actos] AdvReac Severe CHF Verified 10/30/17 15:41 Home Medications: Ambulatory Orders Cholecalciferol (Vitamin D3) [Vitamin D3] 1,000 unit PO DAILY 04/03/14 Aspirin [Ecotrin] 81 mg PO DAILY 03/26/16 Vitamin B Complex 1 each PO DAILY 03/26/16 Carvedilol 25 mg PO BID tablet 10/04/16 Glyburide 5 mg PO BID tablet 10/04/16 Furosemide 40 mg PO DAILY tablet 11/12/16 Gabapentin 300 mg PO BID capsule 11/12/16 Isosorbide Dinitrate 20 mg PO TID tablet 11/12/16 Insulin (Novolog) [Novolog] 0 units SQ BID PRN 09/09/17 Allopurinol [Zyloprim -] 100 mg PO DAILY tablet 09/30/17 Aspirin [ASA -] 81 mg PO DAILY tab.chew 09/30/17 Atorvastatin Ca [Lipitor] 80 mg PO HS tablet 09/30/17 Carvedilol [Coreg -] 25 mg PO BID tablet 09/30/17 Clopidogrel Bisulfate [Plavix -] 75 mg PO DAILY tablet 09/30/17 Docusate Sodium [Colace -] 300 mg PO HS capsule 09/30/17 Furosemide [Lasix -] 40 mg PO DAILY tablet 09/30/17 Gabapentin [Neurontin -] 100 mg PO BID capsule 09/30/17 Insulin Sliding Scale [Novolog Vial Sliding Scale -] 1 vial SQ ACHS units 09/30 Isosorbide Dinitrate [Isordil -] 20 mg PO TIDISORDIL tablet 09/30/17 Sacubitril/Valsartan [Entresto 49 mg-51 mg Tablet] 1 tab PO BID tablet Anemia: No Asthma: No Cancer: Yes (skin) Cardiac Disorders: Yes (cad) CVA: No COPD: No CHF: Yes Dementia: No Diabetes: Yes Dialysis: No (CKD) GI Disorders: No Disorders: No HTN: Yes Hypercholesterolemia: Yes Liver Disease: No Seizures: No Thyroid Disease: No - Surgical History Abdominal Surgery: Yes (HERNIA) Appendectomy: No Cardiac Surgery: Yes (STENTS , 07/2016) Cholecystectomy: No Lung Surgery: No (bronchoscopy 03/17) Neurologic Surgery: No Orthopedic Surgery: No - Immunization History Td Vaccination: Yes Immunization Up to Date: Yes - Suicide/Smoking/Psychosocial Hx Smoking Status: No Smoking History: Former smoker Have you smoked in the past 12 months: No Number of Cigarettes Smoked Daily: 0 If you are a former smoker, when did you quit?: 35 YEARS AGO Information on smoking cessation initiated: No 'Breaking Loose' booklet given: 08/15/15 Hx Alcohol Use: No Drug/Substance Use Hx: No Substance Use Type: None Hx Substance Use Treatment: No Review of Systems - Review of Systems Comments:: 10/30/17 17:43 Constitutional: No fevers, chills, fatigue, malaise HEENT: No Rhinorrhea, nasal congestion, visual changes Cardiovascular: No chest pain, syncope, palpitations, lightheadedness Respiratory: No Cough, SOB, Hemoptysis, Gastrointestinal: No Abdominal pain, Nausea, Vomiting, Constipation, Diarrhea, Melena Genitourinary: No Dysuria, Frequency, Urgency, Hesitancy, Hematuria, Flank pain Musculoskeletal: No Myalgia, arthralgia Skin: No rashes, itching, bruising, pallor Neurologic: No Headache, Dizziness, Numbness, Weakness, or Tingling Psychiatric: No Hallucinations. No SI or HI *Physical Exam - Vital Signs Last Vital Signs Temp Pulse Resp BP Pulse Ox 98.5 F 69 18 126/66 98 10/30/17 15:43 10/30/17 15:43 10/30/17 15:43 10/30/17 15:43 10/30/17 15:43 - Physical Exam Comments: 10/30/17 17:43 General Appearance: Nourished. No Apparent Distress HEENT: EOMI, JEFFERSON. No Pharyngeal Erythema, Tonsillar Exudate, Tonsillar Erythema Neck: No Cervical Lymphadenopathy Respiratory/Chest: Lungs Clear, Normal Breath Sounds. Right pleural drain in place. No Crackles, Rales, Rhonchi, Wheezing Cardiovascular: Regular Rhythm, Regular Rate. No Murmur, Gallops, Rubs Gastrointestinal/Abdominal: Normal Bowel Sounds, Soft. No Guarding, Rebound, Tenderness Musculoskeletal: No CVA Tenderness Extremity: Normal Capillary Refill Integumentary: Normal Color, Dry, Warm Neurologic: Fully Oriented, Alert, Normal Mood/Affect, Normal Response, ED Treatment Course - LABORATORY CBC & Chemistry Diagram: 10/30/17 15:55 10/30/17 15:55 - ADDITIONAL ORDERS Additional order review: Laboratory Results 10/30/17 10/30/17 15:55 15:55 PT with INR 11.40 INR 1.01 PTT (Actin FS) 33.1 Sodium 144 Potassium 5.4 H D Chloride 115 H Carbon Dioxide 22 D Anion Gap 7 L BUN 58 H D Creatinine 1.6 H D Creat Clearance w eGFR 42.46 Random Glucose 204 H D Calcium 8.2 L Total Bilirubin 0.5 D AST 8 L ALT 20 D Alkaline Phosphatase 125 H D Total Protein 6.4 Albumin 2.7 L 10/30/17 15:55 RBC 3.97 L MCV 95.6 MCHC 32.6 RDW 15.7 MPV 8.8 Neutrophils % 54.8 Lymphocytes % 28.8 Monocytes % 9.4 Eosinophils % 5.6 H Basophils % 1.4 Medical Decision Making - Medical Decision Making 10/30/17 17:44 The patient is a 72 year old male with a history of HTN, HLD, DM, CHF, Pleural Effusions s/p Right Pleural Fluid Drain who presents for concerns of bloody pleural fluid. CBC, sent in traige was unremarkable. CMP demonstrated an elevated potassium to 5.4. Chest plain film is demonstrates a right pleural effusion that is somewhat improved from priors as read by our radiologist. We discussed the case with Dr. Trujillo who would like the patient admitted to the hospitalists for evaluation with IR tomorrow morning and further monitoring. We agree with Dr. Trujillo and will admit the patient to the hospital. 10/30/17 18:30 We discussed the case with the admitting team who accepted the patient for admission. *DC/Admit/Observation/Transfer Diagnosis at time of Disposition: Pleural effusion - Discharge Dispostion Condition at time of disposition: Stable Decision to Admit order: Yes - Referrals Referrals: Siobhan Mondragon MD [Primary Care Provider] - - Patient Instructions - Post Discharge Activity
--- NOTE | 2017-10-30 17:25 | PDOC ---
Attending Attestation - HPI HPI: 10/30/17 17:38 The patient is a 72 year old male, with a significant PMH of hypertension, hyperlipidemia, COPD, diabetes mellitus, congestive heart failure and right polar pleural drain in place for chronic right pleural effusions who presents to the emergency department complaining of blood within the pleural fluid. The patient states he noted blood within the pleural fluid on Friday and called Dr. Trujillo who advised the patient to come to the emergency room. The patient states he waited until today when he drained the pleural fluid again and noted blood once more in the pleural fluid which prompted him to come to the ER. The patient denies chest pain, shortness of breath, headache and dizziness. Denies fever, chills, nausea, vomit, diarrhea and constipation. Denies dysuria, frequency, urgency and hematuria. Allergies: pioglitazone HCL PCP: Dr. Mondragon Documentation prepared by Kush De Jesus, acting as medical policy specialist for Iona Robin MD. <Kush De Jesus - Last Filed: 10/30/17 17:38> - Resident Resident Name: Aman Rios - ED Attending Attestation I have performed the following: I have examined & evaluated the patient, The case was reviewed & discussed with the resident, I agree w/resident's findings & plan, Exceptions are as noted - Physicial Exam PE: GENERAL: Awake, alert, and fully oriented, in no acute distress HEAD: No signs of trauma EYES: PERRLA, EOMI, sclera anicteric, conjunctiva clear ENT: Auricles normal inspection, hearing grossly normal, nares patent, oropharynx clear without exudates. Moist mucosa NECK: Normal ROM, supple, no lymphadenopathy, JVD, or masses LUNGS: Breath sounds equal, clear to auscultation bilaterally. No wheezes, and no crackles HEART: Regular rate and rhythm, normal S1 and S2, no murmurs, rubs or gallops ABDOMEN: Soft, nontender, normoactive bowel sounds. No guarding, no rebound. No masses EXTREMITIES: Normal range of motion, no edema. No clubbing or cyanosis. No cords, erythema, or tenderness NEUROLOGICAL: Cranial nerves II through XII grossly intact. Normal speech, normal gait SKIN: Warm, Dry, normal turgor, no rashes or lesions noted. +Pleural catheter to R lower chest wall. - Medical Decision Making Case d/w Dr. Trujillo, recommended placement on obs for further evaluation. <Iona Robin - Last Filed: 10/30/17 17:50>
--- NOTE | 2017-10-30 18:31 | HP ---
CHIEF COMPLAINT: Pleurx catheter drainage and pain PCP: Pulmonary: Dr. Trujillo, Cardiology: Dr. Chacon HISTORY OF PRESENT ILLNESS: The patient is a 72 year old male with a significant PMH of hypertension, hyperlipidemia, COPD, diabetes mellitus, congestive heart failure and right anterior Pleurx catheter drain for chronic right pleural effusions. Patient reports to the ED today after noting increased bloody drainage from his right Pleurx cateter. As per patient, he drains his pleura cateher every 3-4 days without difficulty. He reports the drainage is usually a straw color, with no blood. This past Friday, he noted streaks of blood in the catheter when his drained it, and was advised to be evaluated in the ED by Dr. Trujillo. The patient states that today when he drained the pleural fluid, he noted more blood which prompted him to come to the ED. In the ED patient was asymptomatic and denies any chest pain or shortness of breath. He reports no hematuria nor any other signs of bleeding. ER course was notable for: (1) 500cc of bloody drainage on Pleurx catheter, cytology sent (2) Chest Ct (3) Recent Travel: PAST MEDICAL HISTORY: PAST SURGICAL HISTORY: Social History: Smoking: denies Alcohol: denies Drugs: denies Family History: Allergies pioglitazone HCl [From [facility]] Adverse Reaction (Severe, Verified 10/30/17 15:41) CHF pt does not remember HOME MEDICATIONS: Home Medications Medication Instructions Recorded Cholecalciferol (Vitamin D3) 1,000 unit PO DAILY 04/03/14 [Vitamin D3] Aspirin [Ecotrin] 81 mg PO DAILY 03/26/16 Vitamin B Complex 1 each PO DAILY 03/26/16 Carvedilol 25 mg PO BID tablet 10/04/16 Glyburide 5 mg PO BID tablet 10/04/16 Furosemide 40 mg PO DAILY tablet 11/12/16 Gabapentin 300 mg PO BID capsule 11/12/16 Isosorbide Dinitrate 20 mg PO TID tablet 11/12/16 Insulin (Novolog) [Novolog] 0 units SQ BID PRN 09/09/17 Allopurinol [Zyloprim -] 100 mg PO DAILY tablet 09/30/17 Aspirin [ASA -] 81 mg PO DAILY tab.chew 09/30/17 Atorvastatin Ca [Lipitor] 80 mg PO HS tablet 09/30/17 Carvedilol [Coreg -] 25 mg PO BID tablet 09/30/17 Clopidogrel Bisulfate [Plavix -] 75 mg PO DAILY tablet 09/30/17 Docusate Sodium [Colace -] 300 mg PO HS capsule 09/30/17 Furosemide [Lasix -] 40 mg PO DAILY tablet 09/30/17 Gabapentin [Neurontin -] 100 mg PO BID capsule 09/30/17 Insulin Sliding Scale [Novolog 1 vial SQ ACHS units 09/30/17 Vial Sliding Scale -] Isosorbide Dinitrate [Isordil -] 20 mg PO TIDISORDIL tablet 09/30/17 Sacubitril/Valsartan [Entresto 49 1 tab PO BID tablet 09/30/17 mg-51 mg Tablet] REVIEW OF SYSTEMS CONSTITUTIONAL: Absent: fever, chills, diaphoresis, generalized weakness, malaise, loss of appetite, weight change HEENT: Absent: rhinorrhea, nasal congestion, throat pain, throat swelling, difficulty swallowing, mouth swelling, ear pain, eye pain, visual changes CARDIOVASCULAR: Absent: chest pain, syncope, palpitations, irregular heart rate, lightheadedness , peripheral edema RESPIRATORY: Absent: cough, shortness of breath, dyspnea with exertion, orthopnea, wheezing, stridor, hemoptysis GASTROINTESTINAL: Absent: abdominal pain, abdominal distension, nausea, vomiting, diarrhea, constipation, melena, hematochezia GENITOURINARY: Absent: dysuria, frequency, urgency, hesitancy, hematuria, flank pain, genital pain MUSCULOSKELETAL: Absent: myalgia, arthralgia, joint swelling, back pain, neck pain SKIN: Absent: rash, itching, pallor HEMATOLOGIC/IMMUNOLOGIC: Absent: easy bleeding, easy bruising, lymphadenopathy, frequent infections ENDOCRINE: Absent: unexplained weight gain, unexplained weight loss, heat intolerance, cold intolerance NEUROLOGIC: Absent: headache, focal weakness or paresthesias, dizziness, unsteady gait, seizure, mental status changes, bladder or bowel incontinence PSYCHIATRIC: Absent: anxiety, depression, suicidal or homicidal ideation, hallucinations. PHYSICAL EXAMINATION Vital Signs - 24 hr 10/30/17 15:43 Temperature 98.5 F Pulse Rate 69 Respiratory 18 Rate Blood Pressure 126/66 O2 Sat by Pulse 98 Oximetry (%) GENERAL: Awake, alert, and fully oriented, in no acute distress. HEAD: Normal with no signs of trauma. EYES: Pupils equal, round and reactive to light, extraocular movements intact, sclera anicteric, conjunctiva clear. No lid lag. EARS, NOSE, THROAT: Ears normal, nares patent, oropharynx clear without exudates. Moist mucous membranes. NECK: Normal range of motion, supple without lymphadenopathy, JVD, or masses. LUNGS: Breath sounds equal, clear to auscultation bilaterally. No wheezes, and no crackles. No accessory muscle use. HEART: Regular rate and rhythm, normal S1 and S2 without murmur, rub or gallop. ABDOMEN: Soft, nontender, not distended, normoactive bowel sounds, no guarding, no rebound, no masses. No hepatomegaly or splenomegaly. MUSCULOSKELETAL: Normal range of motion at all joints. No bony deformities or tenderness. No CVA tenderness. UPPER EXTREMITIES: 2+ pulses, warm, well-perfused. No cyanosis. No clubbing. No peripheral edema. LOWER EXTREMITIES: 2+ pulses, warm, well-perfused. No calf tenderness. No peripheral edema. NEUROLOGICAL: Cranial nerves II-XII intact. Normal speech. Normal gait. PSYCHIATRIC: Cooperative. Good eye contact. Appropriate mood and affect. SKIN: Warm, dry, normal turgor, no rashes or lesions noted, normal capillary refill. Laboratory Results - last 24 hr 10/30/17 10/30/17 10/30/17 15:55 15:55 15:55 WBC 4.4 RBC 3.97 L Hgb 12.4 Hct 38.0 MCV 95.6 MCH 31.1 MCHC 32.6 RDW 15.7 Plt Count 140 MPV 8.8 Neutrophils % 54.8 Lymphocytes % 28.8 Monocytes % 9.4 Eosinophils % 5.6 H Basophils % 1.4 Nucleated RBC % 0 PT with INR 11.40 INR 1.01 PTT (Actin FS) 33.1 Sodium 144 Potassium 5.4 H D Chloride 115 H Carbon Dioxide 22 D Anion Gap 7 L BUN 58 H D Creatinine 1.6 H D Creat Clearance w eGFR 42.46 Random Glucose 204 H D Calcium 8.2 L Total Bilirubin 0.5 D AST 8 L ALT 20 D Alkaline Phosphatase 125 H D Total Protein 6.4 Albumin 2.7 L Blood Type Antibody Screen 10/30/17 15:55 WBC RBC Hgb Hct MCV MCH MCHC RDW Plt Count MPV Neutrophils % Lymphocytes % Monocytes % Eosinophils % Basophils % Nucleated RBC % PT with INR INR PTT (Actin FS) Sodium Potassium Chloride Carbon Dioxide Anion Gap BUN Creatinine Creat Clearance w eGFR Random Glucose Calcium Total Bilirubin AST ALT Alkaline Phosphatase Total Protein Albumin Blood Type O NEGATIVE Antibody Screen Negative ASSESSMENT/PLAN: The patient is a 72 year old male with a significant PMH of hypertension, hyperlipidemia, COPD, diabetes mellitus, congestive heart failure and right anterior Pleurx catheter drain for chronic right pleural effusions. Patient reports to the ED today after noting increased bloody drainage from his right Pleurx cateter. As per patient, he drains his pleura cateher every 3-4 days without difficulty. He reports the drainage is usually a straw color, with no blood. This past Friday, he noted streaks of blood in the catheter when his drained it, and was advised to be evaluated in the ED by Dr. Trujillo. The patient states that today when he drained the pleural fluid, he noted more blood which prompted him to come to the ED. In the ED patient was asymptomatic and denies any chest pain or shortness of breath. He reports no hematuria nor any other signs of bleeding. Pleurx Catheter Bloody drainage from Pleurx catheter, patient denies trauma or falls, not short of breath CT scan Monitor respiratory status Evaluation by IR No signs of pain, infection on surrounding skin On ASA and Plavix Hypertension, chronic Continue home meds COPD, stable Albuterol prn Diabetes Mellitus, chronic on SS CHF,chronic Monitor intake and outpt Lasix F.E.N. Fluids: PO adequate Electrolytes monitor Nutrition: diabetic diet Prophy: DVT: LOS < 48 hours GI: deferred Visit type - Emergency Visit Emergency Visit: Yes ED Registration Date: 10/30/17 Care time: The patient presented to the Emergency Department on the above date and was hospitalized for further evaluation of their emergent condition. - New Patient This patient is new to me today: Yes Date on this admission: 10/31/17 - Critical Care Critical Care patient: No Hospitalist Screening - Colonoscopy Questionnaire Colonoscopy Questionnaire: Colonoscopy Questionnaire - Patient: 50 - 75 years old and never had a screening colonoscopy: Unknown History of colon or rectal polyps, or CA: Unknown History of IBD, Crohn's disease or UC: Unknown History of abdominal radiation therapy as a child: Unknown - Relative: 1 with colon or rectal CA, or polyps at age 60 or younger: Unknown Colon or rectal CA diagnosed at age 45 or younger: Unknown Multiple relatives with colon or rectal CA: Unknown - Outcome: Screening Result: Negative Screen
[2017-10-30 19:52] LABS: GLUCOSE,PLEURAL FLUID 234.148
[2017-10-30 19:53] LABS: TOTAL PROTEIN,PLEURAL FLUID 3.045
[2017-10-30 20:30] LABS: PLEURAL FLD EOSINOPHIL 1 %; PLEURAL FLUID APPEARANCE HAZY; PLEURAL FLUID COLOR RED; PLEURAL FLUID LYMPHOCYTES 91 %; PLEURAL FLUID MESOTHELIAL 6 %; PLEURAL FLUID NEUTROPHIL 2 %
[2017-10-30] MEDS: CARVEDILOL 25 MG TABLET (FP) PO SCH (21:57)
[2017-10-30] MEDS: INSULIN SLIDING SCALE (NOVOLOG) 1 VIAL SQ SCH (21:57)
[2017-10-30] MEDS ORDERED: ATORVASTATIN CA 80 MG TABLET (FP) PO SCH (22:00)
[2017-10-30] MEDS ORDERED: ALBUTEROL SO4 2.5/IPRATROPIUM 0.5 INH SOL 3 ML VIAL.NEB. NEB PRN (22:44)
[2017-10-31 02:26] VITALS: BMI 27.8
[2017-10-31 02:36] LABS: URINE APPEARANCE CLEAR; URINE BILIRUBIN NEGATIVE (<2.0 mg/dL); URINE COLOR LTYELLOW; URINE GLUCOSE (UA) NEGATIVE (NEGATIVE); URINE KETONE NEGATIVE (NEGATIVE); URINE LEUK ESTERASE NEGATIVE (NEGATIVE); URINE NITRITE NEGATIVE (NEGATIVE); URINE UROBILINOGEN NEGATIVE mg/dL (0.2-1.0)
[2017-10-31 02:39] LABS: URINE PROTEIN 2+ (NEGATIVE)
[2017-10-31] MEDS: INSULIN SLIDING SCALE (NOVOLOG) 1 VIAL SQ SCH ×2 (06:08→11:44)
[2017-10-31 07:36] LABS: HEMATOCRIT 37.6 % (35.4-49); HEMOGLOBIN 12.4 GM/dL (11.7-16.9); MCH 31.3 pg (25.7-33.7); MCHC 32.9 g/dl (32.0-35.9); MEAN CELL VOLUME 95.3 fl (80-96); PLATELET COUNT 123 K/MM3 (134-434); RBC 3.95 M/mm3 (4.00-5.60); RDW 15.3 % (11.9-15.9)
[2017-10-31 08:10] LABS: INR 1.03 (0.82-1.09); PROTHROMBIN TIME (PATIENT) 11.6 SEC (9.7-13.0)
[2017-10-31 08:32] LABS: CHLORIDE 117 mmol/L (98-107); POTASSIUM 5.4 mmol/L (3.5-5.1); SODIUM 145 mmol/L (136-145)
[2017-10-31] MEDS ORDERED: PT OWN MED DRAWER 7, Y5N ONE (09:01)
[2017-10-31 09:08] LABS: ALBUMIN 2.6 g/dl (3.4-5.0); ALK PHOS 107 U/L (45-117); ANION GAP 5 (8-16); BILIRUBIN,TOTAL 0.4 mg/dL (0.2-1.0); BLOOD UREA NITROGEN 51 mg/dL (7-18); CO2 23 mmol/L (21-32); CREATININE 1.6 mg/dL (0.7-1.3); GLUCOSE,RANDOM 96 mg/dL (74-106); MAGNESIUM 2.3 mg/dL (1.8-2.4); SGOT/AST 10 U/L (15-37); SGPT/ALT 18 U/L (12-78); TOT PROT 5.8 g/dl (6.4-8.2)
[2017-10-31] MEDS: CARVEDILOL 25 MG TABLET (FP) PO SCH (09:11)
[2017-10-31] MEDS: ISOSORBIDE DINITRATE 20 MG TABLET (FP) PO SCH ×2 (09:11→13:44)
[2017-10-31] MEDS ORDERED: ALLOPURINOL 100 MG TABLET (FP) PO SCH (10:00)
[2017-10-31] MEDS ORDERED: FUROSEMIDE 40 MG TABLET (FP) PO SCH (10:00)
--- NOTE | 2017-10-31 10:14 | EKG ---
Test Reason : Blood Pressure : / mmHG Vent. Rate : 069 BPM Atrial Rate : 069 BPM P-R Int : 196 ms QRS Dur : 122 ms QT Int : 416 ms P-R-T Axes : 057 -46 101 degrees QTc Int : 445 ms NORMAL SINUS RHYTHM LEFT AXIS DEVIATION ANTEROSEPTAL INFARCT (CITED ON OR BEFORE 06-AUG-2017) NONSPECIFIC ST ABNORMALITY ABNORMAL ECG Confirmed by SHANDRA ZUNIGA MD ([id number]) on 10/31/2017 10:14:16 AM Referred By: Confirmed By:SHANDRA ZUNIGA MD
--- NOTE | 2017-10-31 13:13 | PN ---
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 (short form) - Note 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: PULMONARY CONSULTATION DICTATED 10/31/17 IMP CHRONIC R PLEURAL EFFUSION S/P PLEUR-X HEMMORAGIC R EFFUSION LIKELY SECONDARY TO LOCAL TRAUMA ASHD CHF CKD DM PLAN IR CONSULT MONITOR H+H PLEURAL FLUID CYTOLOGY CONTINUE CURRENT MEDS DR JENSEN Problem List - Problems (1) Pleural effusion Code(s): J90 - PLEURAL EFFUSION, NOT ELSEWHERE CLASSIFIED (2) CHF (congestive heart failure) Code(s): I50.9 - HEART FAILURE, UNSPECIFIED (3) CHF (congestive heart failure), NYHA class III Code(s): I50.9 - HEART FAILURE, UNSPECIFIED Qualifiers: Congestive heart failure type: systolic Congestive heart failure chronicity : chronic Qualified Code(s): I50.22 - Chronic systolic (congestive) heart failure (4) CKD (chronic kidney disease) Code(s): N18.9 - CHRONIC KIDNEY DISEASE, UNSPECIFIED (5) Diabetes Code(s): E11.9 - TYPE 2 DIABETES MELLITUS WITHOUT COMPLICATIONS Qualifiers: Diabetes mellitus type: type 2 Diabetes mellitus complication status: with kidney complications Diabetes mellitus complication detail: with chronic kidney disease (6) Pulmonary hypertension Code(s): I27.2 - OTHER SECONDARY PULMONARY HYPERTENSION * DO NOT USE * (7) HTN (hypertension) Code(s): I10 - ESSENTIAL (PRIMARY) HYPERTENSION Qualifiers: Hypertension type: essential hypertension Qualified Code(s): I10 - Essential (primary) hypertension (8) Hyperlipidemia Code(s): E78.5 - HYPERLIPIDEMIA, UNSPECIFIED Qualifiers: Hyperlipidemia type: unspecified Qualified Code(s): E78.5 - Hyperlipidemia , unspecified
[2017-10-31 14:05] LABS: URINE APPEARANCE CLEAR; URINE BILIRUBIN NEGATIVE (<2.0 mg/dL); URINE COLOR STRAW; URINE GLUCOSE (UA) NEGATIVE (NEGATIVE); URINE KETONE NEGATIVE (NEGATIVE); URINE LEUK ESTERASE NEGATIVE (NEGATIVE); URINE NITRITE NEGATIVE (NEGATIVE); URINE UROBILINOGEN NEGATIVE mg/dL (0.2-1.0)
[2017-10-31 14:06] LABS: URINE PROTEIN 1+ (NEGATIVE)
[2017-10-31 14:07] LABS: URINE HYALINE CAST 4 /lpf; URINE MUCUS RARE
--- NOTE | 2017-10-31 14:17 | DS ---
Physical Examination Vital Signs: Vital Signs Temperature 97.7 F 10/31/17 04:00 Pulse Rate 65 10/31/17 08:00 Respiratory Rate 20 10/31/17 10:10 Blood Pressure 152/79 10/31/17 08:00 O2 Sat by Pulse Oximetry (%) 96 10/31/17 10:10 Constitutional: Yes: No Distress, Calm Eyes: Yes: Conjunctiva Clear, EOM Intact HENT: Yes: Atraumatic, Normocephalic Neck: Yes: Supple, Trachea Midline Cardiovascular: Yes: Regular Rate and Rhythm, S1, S2 Respiratory: Yes: Regular, CTA Bilaterally, Other (crepittaions bilaterally, no rales, no wheezes) Gastrointestinal: Yes: Normal Bowel Sounds, Soft, Abdomen, Obese. No: Hepatomegaly, Melena ...Rectal Exam: Yes: Deferred Labs: CBC, BMP 10/31/17 06:30 10/31/17 06:30 Discharge Summary Reason For Visit: PLEURAL EFFUSION Current Active Problems Pleural effusion (Acute) 72 yo male with an indwelling right pleural catheter, developed blood tinged pleural secretions during his routine drainage at [facility]. The patient waited for 2 days and drained the fluid again, he became concerned because the blood persisted, called the feed research aide and was instructed to present to ER.Blood testing , Ct scan and anlyssi of latanya fluid were preformed,.Pleural fludi was sent out for c/s and analysis. Procedures: Principal: Ct scan of the chest Condition: Stable - Instructions Referrals: Siobhan Mondragon MD [Primary Care Provider] - - Home Medications Comprehensive Discharge Medication List: Ambulatory Orders Carvedilol 25 mg PO BID tablet 10/04/16 Furosemide 40 mg PO DAILY tablet 11/12/16 Allopurinol [Zyloprim -] 100 mg PO DAILY tablet 09/30/17 Aspirin [ASA -] 81 mg PO DAILY tab.chew 09/30/17 Atorvastatin Ca [Lipitor] 80 mg PO HS tablet 09/30/17 Carvedilol [Coreg -] 25 mg PO BID tablet 09/30/17 Clopidogrel Bisulfate [Plavix -] 75 mg PO DAILY tablet 09/30/17 Docusate Sodium [Colace -] 300 mg PO HS capsule 09/30/17 Furosemide [Lasix -] 40 mg PO DAILY tablet 09/30/17 Gabapentin [Neurontin -] 100 mg PO BID capsule 09/30/17 Insulin Sliding Scale [Novolog Vial Sliding Scale -] 1 vial SQ ACHS units 09/30 Isosorbide Dinitrate [Isordil -] 20 mg PO TIDISORDIL tablet 09/30/17 Sacubitril/Valsartan [Entresto 49 mg-51 mg Tablet] 1 tab PO BID tablet Glyburide 5 mg PO BID 10/30/17
[2017-10-31 14:56] VITALS: BP 105/56; PULSE 68; TEMP 97.3
--- NOTE | 2017-10-31 15:42 | CONS ---
DATE OF CONSULTATION: 10/31/2017 PULMONARY CONSULTATION REFERRING PHYSICIAN: Siobhan Mondragon M.D. HISTORY OF PRESENT ILLNESS: The patient is a 72-year-old white male known to me from previous hospitalizations as well as office followup with a past medical history of congestive heart failure, chronic right pleural effusion status post multiple thoracentesis, initial thoracentesis consistent with transudate. Patient is status post PleurX catheter insertion secondary to reaccumulation of fluid requiring repeated thoracentesis, history of diabetes, ASHD, hypertension, hyperlipidemia status post stents, history of bronchoscopy secondary to atelectasis that revealed no evidence of endobronchial pathology and cytology negative, history of tobacco use quit greater than 35 years ago, admitted to [facility] secondary to hemorrhagic pleural effusion. The patient's called me 2 days prior to admission and at the time said when draining the PleurX catheter that she noted blood in the pleural fluid. At the time he was advised to go to the emergency room. He initially did not go to the ER and his called me again yesterday with the above complaint, at which time again was advised to go to the emergency room. In the ER he underwent CT scan and chest which revealed no evidence of acute pathology, which revealed evidence of small to moderate right pleural effusion which has improved somewhat from previous. Patient denies any chest pain, shortness of breath, cough, or hemoptysis. Denies any fevers or chills, weight loss, or night sweats. PAST MEDICAL HISTORY: Again includes ASHD status post stents, congestive heart failure, history of chronic right pleural effusion status post multiple thoracentesis status post PleurX catheter, CHF, diabetes, hypertension, hyperlipidemia. REVIEW OF SYSTEMS: No orthopnea, shortness of breath, no chest pain, no palpitation, no cough, no hemoptysis, no abdominal pain, no lower extremity edema. CURRENT MEDICATIONS: Include Zyloprim, DuoNeb, Coreg, Lipitor, Novolog, Lasix, and Isordil. PHYSICAL EXAMINATION: General: The patient is a well-developed, well-nourished male, awake, alert, in no acute distress. Vital signs: He is currently afebrile, blood pressure 152/79, respiratory rate 20, O2 saturation is 96% on room air. HEENT: Head is normocephalic, atraumatic. Neck: Supple. Heart: Regular. S1, S2. Chest: Few bibasilar crackles and mildly diminished breath sounds in right base. Abdomen: Soft. Bowel sounds positive. Extremities: No cyanosis, edema. LABORATORY: WBC is 4.0, hemoglobin 12.4, hematocrit 37.6 with platelet count of 123,000. BUN 51, creatinine 1.6. Chest CT as noted earlier. IMPRESSION: 1. Chronic right pleural effusion. 2. Hemorrhagic pleural effusion, most likely secondary to local trauma secondary to PleurX catheter. 3. Chronic kidney disease. 4. Congestive heart failure. 5. Atherosclerotic heart disease status post stents. 6. Hypertension. 7. Hyperlipidemia. PLAN: 1. Interventional radiology. Reevaluate PleurX placement. 2. Send pleural fluid for cytology. 3. Follow up chest x-rays. Monitor renal functions. Supplemental O2. Inhaled bronchodilators Sara Mcneal/[id number]
--- NOTE | 2017-11-03 14:09 | PATH ---
Cytology Non-Gynecological Report Patient Name: ROSA MARIA GAGE Med. Rec. #: [id number] /Age/Gender: 1945 (Age: 72) / M Account: [id number] Location: [facility] MED/SURG Taken: 10/31/2017 Received: 10/31/2017 Reported: 11/03/2017 Physicians: Juvenal Marr M.D. Specimen(s) Received CATHETER DRAINAGE Clinical History Pleural effusion Final Diagnosis PLEURAL FLUID, CATHETER DRAINAGE: SATISFACTORY FOR EVALUATION NO MALIGNANT CELLS IDENTIFIED. FEW MESOTHELIAL CELLS AND LYMPHOCYTES PRESENT. Electronically Signed Gurdeep Mendoza M.D. Gross Description [id number] of bloody fluid received fresh. Two cytofunnels and one cellblock prepared.
== END 2017-10-31 14:53 | disposition home or self-care (01) ==
LOC: JER 15:36 → JERBED 18:04 → J7W 20:37
PROVIDERS: ADMIT Internal Medicine; ATTEND Internal Medicine
PROC: 3E013VG Introduction of Insulin into Subcutaneous Tissue, Percutaneous Approach (ICD-10-PCS; principal; 2017-10-30)
DX: J90 Pleural effusion, not elsewhere classified (principal); E11.22 Type 2 diabetes mellitus with diabetic chronic kidney disease; I12.9 Hypertensive chronic kidney disease with stage 1 through stage 4 chronic kidney disease, or unspecified chronic kidney disease; N18.9 Chronic kidney disease, unspecified; Z79.4 Long term (current) use of insulin; I25.10 Atherosclerotic heart disease of native coronary artery without angina pectoris; I50.22 Chronic systolic (congestive) heart failure; I27.20 Pulmonary hypertension, unspecified; E78.5 Hyperlipidemia, unspecified; J44.9 Chronic obstructive pulmonary disease, unspecified; Z85.828 Personal history of other malignant neoplasm of skin; Z87.891 Personal history of nicotine dependence; Z95.5 Presence of coronary angioplasty implant and graft; Z79.82 Long term (current) use of aspirin
CPT/HCPCS: 32554; 36415; 71045-TC-FY; 71250-TC; 80053; 81003; 81015; 82150; 82945; 82962; 83615; 83735; 84157; 84311; 85025; 85027; 85610; 85730; 86850; 86900; 86901; 87070; 87075; 87205; 87899; 88108; 88305-TC; 89051; 93005; 93010; 96372; 99285-25; G0378

== ENCOUNTER 2017-11-11 11:07 | Observation (INO) | payer OTHER, BC ==
--- NOTE | 2017-11-11 11:30 | PDOC ---
History of Present Illness <Isela Levine - Last Filed: 11/11/17 17:12> - General History Source: Patient Exam Limitations: No Limitations - History of Present Illness Initial Comments: 11/11/17 11:45 The patient is a 72 year old male, with a significant PMH of hypertension, hyperlipidemia, COPD, diabetes mellitus, congestive heart failure and right polar pleural drain in place for chronic right pleural effusions, who presents to the emergency department sent in by PCP Dr. Mondragon for abnormal lab values of elevated Potassium. The patient states that he went for blood work yesterday and received a call at work today advising him to come to the ER secondary to elevated potassium levels. At presentation, the patient states he feels well and denies any complaints. The patient denies chest pain, shortness of breath, headache and dizziness. Denies fever, chills, nausea, vomit, diarrhea and constipation. Denies dysuria, frequency, urgency and hematuria. Allergies: pioglitazone HCL PCP: Dr. Mondragon <Kush De Jesus - Last Filed: 11/11/17 17:16> - General Chief Complaint: Revisit, Lab Variance Stated Complaint: LAB VARIANCE HIGH K Time Seen by Provider: 11/11/17 11:30 Past History - Past Medical History Anemia: No Asthma: No Cancer: Yes (skin) Cardiac Disorders: Yes (cad) CVA: No COPD: No CHF: Yes DVT: No Dementia: No Diabetes: Yes Dialysis: No (CKD) GI Disorders: No Disorders: No HTN: Yes Hypercholesterolemia: Yes Liver Disease: No Seizures: No Thyroid Disease: No - Surgical History Abdominal Surgery: Yes (HERNIA) Appendectomy: No Cardiac Surgery: Yes (STENTS /, 07/2016) Cholecystectomy: No Lung Surgery: No (bronchoscopy 03/17) Neurologic Surgery: No Orthopedic Surgery: No - Immunization History Td Vaccination: Yes Immunization Up to Date: Yes - Suicide/Smoking/Psychosocial Hx Smoking Status: No Smoking History: Never smoked Have you smoked in the past 12 months: No Number of Cigarettes Smoked Daily: 0 If you are a former smoker, when did you quit?: 35 YEARS AGO Information on smoking cessation initiated: No 'Breaking Loose' booklet given: 08/15/15 Hx Alcohol Use: No Drug/Substance Use Hx: No Substance Use Type: None Hx Substance Use Treatment: No <Isela Levine - Last Filed: 11/11/17 17:12> <NealKush - Last Filed: 11/11/17 17:16> - Past Medical History Allergies/Adverse Reactions: Allergies Allergy/AdvReac Type Severity Reaction Status Date / Time pioglitazone HCl [From Actos] Allergy Severe CHF Verified 11/11/17 11:08 Home Medications: Ambulatory Orders Clopidogrel Bisulfate [Plavix -] 75 mg PO DAILY tablet 09/30/17 Glyburide 5 mg PO BID 10/30/17 Albuterol 2.5/Ipratropium 0.5 [Duoneb -] 1 amp NEB Q6H PRN #20 amp 10/31/17 Allopurinol [Zyloprim -] 100 mg PO DAILY 30 Days #0 tablet 10/31/17 Aspirin [ASA -] 81 mg PO DAILY #30 tab.chew 10/31/17 Atorvastatin Ca [Lipitor] 80 mg PO HS #30 tablet 10/31/17 Carvedilol [Coreg -] 25 mg PO BID #60 tablet 10/31/17 Docusate Sodium [Colace -] 300 mg PO HS #30 capsule 10/31/17 Insulin Sliding Scale [Novolog Vial Sliding Scale -] 1 vial SQ ACHS units 10/31 Sacubitril/Valsartan [Entresto 49 mg-51 mg Tablet] 1 tab PO BID #60 tablet 10/31 Cholecalciferol (Vitamin D3) [Vitamin D3 -] 1,000 unit PO DAILY 11/11/17 Gabapentin [Neurontin -] 600 mg PO BID 11/11/17 Isosorbide Dinitrate [Isordil -] 40 mg PO TID 11/11/17 Review of Systems - Review of Systems Comments:: 11/11/17 11:46 GENERAL/CONSTITUTIONAL: No fever or chills. No weakness. HEAD, EYES, EARS, NOSE AND THROAT: No change in vision. No ear pain or discharge. No sore throat. CARDIOVASCULAR: No chest pain or shortness of breath. RESPIRATORY: No cough, wheezing, or hemoptysis. GASTROINTESTINAL: No nausea, vomiting, diarrhea or constipation. GENITOURINARY: No dysuria, frequency, or change in urination. MUSCULOSKELETAL: No joint or muscle swelling or pain. No neck or back pain. SKIN: No rash NEUROLOGIC: No headache, vertigo, loss of consciousness, or change in strength/ sensation. ENDOCRINE: No increased thirst. No abnormal weight change. HEMATOLOGIC/LYMPHATIC: No anemia, easy bleeding, or history of blood clots. ALLERGIC/IMMUNOLOGIC: No hives or skin allergy. <Kush De Jesus - Last Filed: 11/11/17 17:16> *Physical Exam - Vital Signs Last Vital Signs Temp Pulse Resp BP Pulse Ox 98.0 F 76 18 125/57 100 11/11/17 11:09 11/11/17 11:09 11/11/17 11:09 11/11/17 11:09 11/11/17 11:09 <Isela Levine - Last Filed: 11/11/17 17:12> - Vital Signs Last Vital Signs Temp Pulse Resp BP Pulse Ox 98.0 F 76 18 125/57 100 11/11/17 11:09 11/11/17 11:09 11/11/17 11:09 11/11/17 11:09 11/11/17 11:09 - Physical Exam Comments: 11/11/17 11:46 GENERAL: Awake, alert, and fully oriented, in no acute distress HEAD: No signs of trauma EYES: PERRLA, EOMI, sclera anicteric, conjunctiva clear ENT: Auricles normal inspection, hearing grossly normal, nares patent, oropharynx clear without exudates. Moist mucosa NECK: Normal ROM, supple, no lymphadenopathy, JVD, or masses LUNGS: Breath sounds equal, clear to auscultation bilaterally. No wheezes, and no crackles HEART: Regular rate and rhythm, normal S1 and S2, no murmurs, rubs or gallops ABDOMEN: Soft, nontender, normoactive bowel sounds. No guarding, no rebound. No masses EXTREMITIES: (+) 1+ Pitting edema bilaterally. Normal range of motion. No clubbing or cyanosis. No cords, erythema, or tenderness NEUROLOGICAL: Cranial nerves II through XII grossly intact. Normal speech, normal gait SKIN: Warm, Dry, normal turgor, no rashes or lesions noted. <Kush De Jesus - Last Filed: 11/11/17 17:16> ED Treatment Course - LABORATORY CBC & Chemistry Diagram: 11/11/17 12:18 11/11/17 15:14 <Isela Levine - Last Filed: 11/11/17 17:12> - LABORATORY CBC & Chemistry Diagram: 11/11/17 12:18 11/11/17 15:14 <Kush De Jesus - Last Filed: 11/11/17 17:16> Medical Decision Making - Medical Decision Making 11/11/17 13:08 Pt presents to the ED after called at home and told to come to the ED secondary to hyperkalemia. Blood work was drawn in PMD's office yesterday. Patient denies complaints. Will check labs and EKG and treat for hyperkalemia with diuresis, bicarb and insulin if K is elevated on labs. <Isela Levine - Last Filed: 11/11/17 17:12> - Medical Decision Making 11/11/17 13:[address] Mondragon. Pending return phone call. Second call to Dr. Mondragon at 2:40 pm. Call answered and discussed with Dr. Mondragon. Dr. Mondragon states he would like to see the patient in her office on . Call placed to Dr. Mondragon at 4:03 pm. Pending return phone call. Second call to Dr. Mondragon at 4:59. Call answered and discussed with Dr. Mondragon. <Kush De Jesus - Last Filed: 11/11/17 17:16> *DC/Admit/Observation/Transfer - Discharge Dispostion Decision to Admit order: Yes <Isela Levine - Last Filed: 11/11/17 17:12> - Attestations Scribe Attestion: 11/11/17 11:46 Documentation prepared by Kush De Jesus, acting as medical or surgical instrument maker for Isela Levine MD. <Kush De Jesus - Last Filed: 11/11/17 17:16> Diagnosis at time of Disposition: Hyperkalemia - Discharge Dispostion Disposition: HOME Condition at time of disposition: Good - Referrals Referrals: Siobhan Mondragon MD [Primary Care Provider] -
[2017-11-11 12:42] LABS: BASO % 1.2 % (0-2.0); EOS % 4.4 % (0-4.5); HEMATOCRIT 38.2 % (35.4-49); HEMOGLOBIN 12.6 GM/dL (11.7-16.9); LYMPH % 29.4 % (8-40); MCH 31.4 pg (25.7-33.7); MEAN CELL VOLUME 95.1 fl (80-96); MEAN PLT VOLUME 8.9 fl (7.5-11.1); MONO % 8.5 % (3.8-10.2); NEUT % 56.5 % (42.8-82.8); PLATELET COUNT 142 K/MM3 (134-434); RBC 4.02 M/mm3 (4.00-5.60); RDW 15.7 % (11.9-15.9); WHITE BLOOD COUNT 4.9 K/mm3 (4.0-10.0)
[2017-11-11 13:30] LABS: ALBUMIN 2.8 g/dl (3.4-5.0); ALK PHOS 124 U/L (45-117); ANION GAP 6 (8-16); BILIRUBIN,TOTAL 0.5 mg/dL (0.2-1.0); BLOOD UREA NITROGEN 75 mg/dL (7-18); CHLORIDE 116 mmol/L (98-107); CO2 19 mmol/L (21-32); CREATININE 1.5 mg/dL (0.7-1.3); GLUCOSE,RANDOM 222 mg/dL (74-106); SGOT/AST 10 U/L (15-37); SGPT/ALT 23 U/L (12-78); SODIUM 141 mmol/L (136-145); TOT PROT 6.6 g/dl (6.4-8.2)
[2017-11-11 13:31] LABS: POTASSIUM 7.2 mmol/L (3.5-5.1)
[2017-11-11] MEDS ORDERED: DEXTROSE 50%-WATER - 25 GM/50 ML VIAL IVPUSH ONE (13:36)
[2017-11-11] MEDS ORDERED: SODIUM BICARBONATE 8.4% 50 MEQ/50 ML DISP.SYRIN IVPUSH ONE (13:36)
[2017-11-11] MEDS ORDERED: INSULIN REGULAR HUMAN 100 UNITS/ML *VIAL IVPUSH ONE (13:36)
[2017-11-11] MEDS ORDERED: FUROSEMIDE 40 MG/4 ML INJECTABLE VIAL IVPUSH ONE ×2 (13:37→16:57)
[2017-11-11] MEDS ORDERED: DEXTROSE 50%-WATER 25 GM/50 ML DISP.SYRIN ONE (13:56)
[2017-11-11] MEDS ORDERED: INSULIN (NOVOLOG) ASPART 100 UNITS/ML 10ML VIAL ONE (13:56)
[2017-11-11] MEDS ORDERED: SODIUM BICARBONATE 8.4% 50 MEQ/50 ML VIAL ONE (13:56)
[2017-11-11] MEDS ORDERED: FUROSEMIDE 40 MG/4 ML INJECTABLE VIAL ONE (14:23)
--- NOTE | 2017-11-11 14:59 | EKG ---
Test Reason : Blood Pressure : / mmHG Vent. Rate : 063 BPM Atrial Rate : 063 BPM P-R Int : 198 ms QRS Dur : 132 ms QT Int : 432 ms P-R-T Axes : 042 -47 106 degrees QTc Int : 442 ms NORMAL SINUS RHYTHM LEFT AXIS DEVIATION NON-SPECIFIC INTRA-VENTRICULAR CONDUCTION BLOCK CANNOT RULE OUT ANTEROSEPTAL INFARCT (CITED ON OR BEFORE 06-AUG-2017) ABNORMAL ECG WHEN COMPARED WITH ECG OF 30-OCT-2017 17:54, NO SIGNIFICANT CHANGE WAS FOUND Confirmed by MD YUSRA, CAROLINE ([id number]) on 11/11/2017 2:59:40 PM Referred By: Confirmed By:CAROLINE MENG MD
[2017-11-11 15:49] LABS: ALBUMIN 2.9 g/dl (3.4-5.0); ANION GAP 6 (8-16); BLOOD UREA NITROGEN 72 mg/dL (7-18); CALCIUM 8.2 mg/dL (8.5-10.1); CHLORIDE 117 mmol/L (98-107); CO2 21 mmol/L (21-32); GLUCOSE,RANDOM 99 mg/dL (74-106); SODIUM 144 mmol/L (136-145)
[2017-11-11 15:54] LABS: ALK PHOS 126 U/L (45-117); BILIRUBIN,TOTAL 0.6 mg/dL (0.2-1.0); CREATININE 1.5 mg/dL (0.7-1.3); SGOT/AST 11 U/L (15-37); SGPT/ALT 24 U/L (12-78); TOT PROT 6.7 g/dl (6.4-8.2)
[2017-11-11 15:55] LABS: POTASSIUM 6.3 mmol/L (3.5-5.1)
[2017-11-11] MEDS ORDERED: SODIUM POLYSTYRENE SULFONATE 15 GM/60 ML BOTTLE PO ONE (17:05)
[2017-11-11] MEDS ORDERED: SODIUM POLYSTYRENE SULFONATE 15 GM/60 ML BOTTLE ONE (17:10)
[2017-11-11] MEDS ORDERED: oxyCODONE HCL 5 MG TABLET PO ONE (21:00)
[2017-11-11] MEDS ORDERED: ACETAMINOPHEN 325 MG TABLET (FP) PO ONE (21:00)
[2017-11-11] MEDS ORDERED: oxyCODONE HCL 5 MG TABLET PO PRN (21:26)
[2017-11-11] MEDS ORDERED: ACETAMINOPHEN 325 MG TABLET (FP) PO PRN (21:27)
--- NOTE | 2017-11-11 21:43 | HP ---
Admitting History and Physical - Admission Chief Complaint: elevated potassium History of Present Illness: 72 yo male with PMH of CHF , DM type 2, and with an indwelling Pleurx catheter, presented to my office last week complaining of dizziness, weakness and lightheadedness. At that time his Lasix was placed on hold because he was found to have orthostatic hypotension. The patient is using his Pleurx catheter to drain pleural fluid approximately 3 times a week, but lately he noticed that the amount of pleural fluid extracted was less. His kidney function has been monitored closely by me and during the last blood testing his K was found to be elevated at 6.8. He was referred to ER. Today his admission K level was 7. The patient denies any arrhythmia and says that his blood sugar levels are not dropping below 70 mg/dl. 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[employer]: Yes: Peripheral Neuropathy Cardiovascular: Yes: CAD (prior anterolateral NH 03/1995 w/ PCI of LAD & ramus, PCI of LAD 05/1996 (with 100% occluded ramus and patent RCA), rotoblator & PCI w / Xience stent prox LAD & prox/mid Cfx 07/30/16), CHF, Hyperlipdemia, NH ( anterolateral NH 1994) Pulmonary: Yes: Pneumonia (03/2016), Other (Chronic right pleural effusion ) Gastrointestinal: Yes: GERD, Irritable Bowel Disease Renal/: Yes: Renal Inusuff, BPH, Renal Calculi Musculoskeletal: Yes: Osteoarthritis Rheumatology: Yes: Gout Endocrine: Yes: Diabetes Mellitus, Other (Hypogonadism, nodular goiter) - Past Surgical History Past Surgical History: Yes: Cataract Removal (bilateral), Hernia Repair ( umbillical) - Smoking History Smoking history: Never smoked Have you smoked in the past 12 months: No Aproximately how many cigarettes per day: 0 If you are a former smoker, when did you quit?: 35 YEARS AGO - Alcohol/Substance Use Hx Alcohol Use: No History of Substance Use: reports: None - Social History ADL: Independent History of Recent Travel: No Home Medications - Allergies Allergies/Adverse Reactions: Allergies Allergy/AdvReac Type Severity Reaction Status Date / Time pioglitazone HCl [From Actos] Allergy Severe CHF Verified 11/11/17 11:08 - Home Medications Home Medications: Ambulatory Orders Clopidogrel Bisulfate [Plavix -] 75 mg PO DAILY tablet 09/30/17 Allopurinol [Zyloprim -] 100 mg PO DAILY 30 Days #0 tablet 10/31/17 Aspirin [ASA -] 81 mg PO DAILY #30 tab.chew 10/31/17 Atorvastatin Ca [Lipitor] 80 mg PO HS #30 tablet 10/31/17 Carvedilol [Coreg -] 25 mg PO BID #60 tablet 10/31/17 Cholecalciferol (Vitamin D3) [Vitamin D -] 1,000 unit PO DAILY 11/11/17 Gabapentin [Neurontin -] 600 mg PO BID 11/11/17 Isosorbide Dinitrate [Isordil -] 40 mg PO TID 11/11/17 Aspirin [ASA -] 81 mg PO DAILY tab.chew 11/12/17 Atorvastatin Ca [Lipitor] 80 mg PO HS tablet 11/12/17 Clopidogrel Bisulfate [Plavix -] 75 mg PO DAILY tablet 11/12/17 Docusate Sodium [Colace -] 300 mg PO DAILY 11/12/17 Gabapentin [Neurontin -] 600 mg PO BID capsule 11/12/17 Insulin Sliding Scale [Novolog Vial Sliding Scale -] 1 vial SQ ACHS units 11/12 Insulin Sliding Scale [Novolog Vial Sliding Scale -] 1 vial SQ BIDAC 11/12/17 Sacubitril/Valsartan [Entresto 24 mg-26 mg Tablet] 1 tab PO BID tablet Family Disease History - Family Disease History Family Disease History: Heart Disease: Mother (CHF) Review of Systems - Review of Systems Constitutional: reports: Weakness, Other (dizziness) HENT: reports: Other (tooth ache this evening) Neck: reports: No Symptoms Cardiovascular: reports: No Symptoms Respiratory: reports: No Symptoms Gastrointestinal: reports: No Symptoms Genitourinary: reports: Frequency Breasts: reports: No Symptoms Reported Integumentary: reports: No Symptoms Hematology/Lymphatic: reports: No Symptoms Psychiatric: reports: No Symptoms Physical Examination Vital Signs: Vital Signs Temperature 97.5 F L 11/11/17 15:34 Pulse Rate 67 11/11/17 15:34 Respiratory Rate 17 11/11/17 15:34 Blood Pressure 131/69 11/11/17 15:34 O2 Sat by Pulse Oximetry (%) 99 11/11/17 15:34 Constitutional: Yes: No Distress, Calm Eyes: Yes: Conjunctiva Clear, EOM Intact HENT: Yes: Atraumatic, Normocephalic Neck: Yes: Supple, Trachea Midline Cardiovascular: Yes: Regular Rate and Rhythm, S1, S2 Respiratory: Yes: Regular, CTA Bilaterally Gastrointestinal: Yes: Normal Bowel Sounds, Soft, Abdomen, Obese. No: Ascites, Hepatomegaly, Splenomegaly Breast(s): Yes: WNL Musculoskeletal: Yes: WNL Extremities: No: Calf Tenderness Edema: Yes Edema: LLE: 1+, RLE: 1+ Peripheral Pulses WNL: Yes Wound/Incision: Yes: Clean/Dry Neurological: Yes: Alert, Oriented Psychiatric: Yes: Alert, Oriented Labs: CBC, BMP 11/11/17 12:18 11/11/17 15:14 Problem List - Problems (1) Acute hyperkalemia Assessment/Plan: KAyexalate 30 gm po, repeat K in am Code(s): E87.5 - HYPERKALEMIA (2) Acute kidney failure Assessment/Plan: hold Lasix, hold Entresto Code(s): N17.9 - ACUTE KIDNEY FAILURE, UNSPECIFIED Qualifiers: Acute renal failure type: with other specified pathological lesion Qualified Code(s): N17.8 - Other acute kidney failure (3) [id number] kidney injury Assessment/Plan: continue monitoring electrolytes Code(s): N17.9 - ACUTE KIDNEY FAILURE, UNSPECIFIED; N18.9 - CHRONIC KIDNEY DISEASE, UNSPECIFIED (4) CHF (congestive heart failure) Assessment/Plan: monitor intake and output, hold Lasix and Entresto for now Code(s): I50.9 - HEART FAILURE, UNSPECIFIED (5) CHF (congestive heart failure), NYHA class III Assessment/Plan: hold Lasix Code(s): I50.9 - HEART FAILURE, UNSPECIFIED Qualifiers: Congestive heart failure type: systolic Congestive heart failure chronicity : chronic Qualified Code(s): I50.22 - Chronic systolic (congestive) heart failure (6) Diabetes Assessment/Plan: accuchecks AC HS hold Glipizide, hold Glucophage Code(s): E11.9 - TYPE 2 DIABETES MELLITUS WITHOUT COMPLICATIONS Qualifiers: Diabetes mellitus type: type 2 Diabetes mellitus complication status: with kidney complications Diabetes mellitus complication detail: with chronic kidney disease (7) Pleural effusion Assessment/Plan: stable Code(s): J90 - PLEURAL EFFUSION, NOT ELSEWHERE CLASSIFIED (8) Prerenal renal failure Assessment/Plan: hold Entresto Code(s): N19 - UNSPECIFIED KIDNEY FAILURE (9) Tooth infection Assessment/Plan: pain management Percocet Code(s): K04.7 - PERIAPICAL ABSCESS WITHOUT SINUS
[2017-11-11] MEDS ORDERED: ATORVASTATIN CA 80 MG TABLET (FP) PO SCH (22:00)
[2017-11-11] MEDS: GABAPENTIN 300 MG CAPSULE (FP) PO SCH (23:00)
[2017-11-11] MEDS: INSULIN SLIDING SCALE (NOVOLOG) 1 VIAL SQ SCH (23:01)
[2017-11-12 00:14] VITALS: BMI 27.9
[2017-11-12] MEDS: INSULIN SLIDING SCALE (NOVOLOG) 1 VIAL SQ SCH ×2 (06:09→11:43)
[2017-11-12 09:09] LABS: ALBUMIN 2.7 g/dl (3.4-5.0); BLOOD UREA NITROGEN 64 mg/dL (7-18); CALCIUM 8.3 mg/dL (8.5-10.1); CHLORIDE 114 mmol/L (98-107); POTASSIUM 5.9 mmol/L (3.5-5.1); SGOT/AST 7 U/L (15-37); SGPT/ALT 21 U/L (12-78); SODIUM 144 mmol/L (136-145)
[2017-11-12 09:13] LABS: ALK PHOS 108 U/L (45-117); ANION GAP 9 (8-16); BILIRUBIN,TOTAL 0.5 mg/dL (0.2-1.0); CO2 21 mmol/L (21-32); CREATININE 1.3 mg/dL (0.7-1.3); GLUCOSE,RANDOM 111 mg/dL (74-106); TOT PROT 6.2 g/dl (6.4-8.2)
[2017-11-12] MEDS ORDERED: CLOPIDOGREL BISULFATE 75 MG TABLET (FP) PO SCH (10:00)
[2017-11-12] MEDS ORDERED: ASPIRIN 81 MG CHEWABLE TABLETS PO SCH (10:00)
[2017-11-12] MEDS ORDERED: INSULIN (NOVOLOG) ASPART 100 UNITS/ML 10ML VIAL ONE (10:10)
[2017-11-12 10:33] VITALS: PULSE 78
[2017-11-12] MEDS: GABAPENTIN 300 MG CAPSULE (FP) PO SCH (10:36)
[2017-11-12] MEDS ORDERED: SACUBITRIL/VALSARTAN 24 MG-26 MG TABLET PO SCH (14:15)
--- NOTE | 2017-11-12 14:25 | DS ---
Physical Examination Vital Signs: Vital Signs Temperature 98.2 F 11/12/17 09:00 Pulse Rate 78 11/12/17 09:00 Respiratory Rate 18 11/12/17 09:00 Blood Pressure 159/88 11/12/17 09:00 O2 Sat by Pulse Oximetry (%) 97 11/12/17 13:00 Constitutional: Yes: Well Nourished, No Distress, Calm Eyes: Yes: Conjunctiva Clear, EOM Intact HENT: Yes: Atraumatic, Normocephalic Neck: Yes: Supple, Trachea Midline Cardiovascular: Yes: Regular Rate and Rhythm Respiratory: Yes: Regular, CTA Bilaterally Gastrointestinal: Yes: Normal Bowel Sounds, Soft, Abdomen, Obese. No: Hepatomegaly, Splenomegaly Breast(s): Yes: WNL Musculoskeletal: Yes: WNL Extremities: No: Calf Tenderness Edema: No Peripheral Pulses WNL: Yes Integumentary: Yes: WNL Neurological: Yes: Alert, Oriented Psychiatric: Yes: Alert, Oriented Labs: CBC, BMP 11/11/17 12:18 11/12/17 08:20 Discharge Summary Reason For Visit: HYPERKALEMIA Current Active Problems Acute hyperkalemia (Acute) Hyperkalemia (Acute) Prerenal renal failure (Acute) Tooth infection (Acute) Procedures: Principal: telemetry momitoring, treatment of hyperkaliemia Condition: Good - Instructions Diet, Activity, Other Instructions: drain Pleurx only once a week follow up blood testing daily at the hospital lab hold oral diabetic mediations Referrals: Siobhan Mondragon MD [Primary Care Provider] - Disposition: HOME - Home Medications Comprehensive Discharge Medication List: Ambulatory Orders Clopidogrel Bisulfate [Plavix -] 75 mg PO DAILY tablet 09/30/17 Allopurinol [Zyloprim -] 100 mg PO DAILY 30 Days #0 tablet 10/31/17 Aspirin [ASA -] 81 mg PO DAILY #30 tab.chew 10/31/17 Atorvastatin Ca [Lipitor] 80 mg PO HS #30 tablet 10/31/17 Carvedilol [Coreg -] 25 mg PO BID #60 tablet 10/31/17 Cholecalciferol (Vitamin D3) [Vitamin D -] 1,000 unit PO DAILY 11/11/17 Gabapentin [Neurontin -] 600 mg PO BID 11/11/17 Isosorbide Dinitrate [Isordil -] 40 mg PO TID 11/11/17 Aspirin [ASA -] 81 mg PO DAILY tab.chew 11/12/17 Atorvastatin Ca [Lipitor] 80 mg PO HS tablet 11/12/17 Clopidogrel Bisulfate [Plavix -] 75 mg PO DAILY tablet 11/12/17 Docusate Sodium [Colace -] 300 mg PO DAILY 11/12/17 Gabapentin [Neurontin -] 600 mg PO BID capsule 11/12/17 Insulin Sliding Scale [Novolog Vial Sliding Scale -] 1 vial SQ ACHS units 11/12 Insulin Sliding Scale [Novolog Vial Sliding Scale -] 1 vial SQ BIDAC 11/12/17 Sacubitril/Valsartan [Entresto 24 mg-26 mg Tablet] 1 tab PO BID tablet
[2017-11-12 14:27] VITALS: BP 137/68; TEMP 97.7
--- NOTE | 2017-11-12 21:06 | PN ---
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, Physician Chief Complaint: elevated K level and tooth ache History of Present Illness: 72 yo male was admitted for monitoring because his K level was elevated. He was given Kayexalate and had a couple of diarrheic stools over night. His tooth ache continues to bother him but it responds to Percocet administration. - Objective Vital Signs: Vital Signs Temperature 97.7 F 11/12/17 14:05 Pulse Rate 78 11/12/17 14:05 Respiratory Rate 16 11/12/17 14:05 Blood Pressure 137/68 11/12/17 14:05 O2 Sat by Pulse Oximetry (%) 97 11/12/17 13:00 Constitutional: Yes: No Distress, Calm Eyes: Yes: Conjunctiva Clear, EOM Intact HENT: Yes: Atraumatic, Normocephalic Neck: Yes: Supple, Trachea Midline Cardiovascular: Yes: Regular Rate and Rhythm Respiratory: Yes: Regular, CTA Bilaterally Gastrointestinal: Yes: Normal Bowel Sounds, Soft, Abdomen, Obese. No: Hepatomegaly, Splenomegaly ...Rectal Exam: Yes: Deferred Genitourinary: Yes: WNL Breast(s): Yes: WNL Musculoskeletal: Yes: WNL Extremities: No: Calf Tenderness Edema: LLE: Trace, RLE: Trace Peripheral Pulses WNL: Yes Integumentary: Yes: WNL Wound/Incision: Yes: Other (Pleurx catehter present right hemithorax) Neurological: Yes: Alert, Oriented Psychiatric: Yes: Alert, Oriented Labs: CBC, BMP 11/11/17 12:18 11/12/17 08:20 Problem List - Problems (1) Acute hyperkalemia Assessment/Plan: k level improved lower Entresto dose to 24 mg bid repeat CMP daily for the next 3 days discharge home today Code(s): E87.5 - HYPERKALEMIA (2) Acute kidney failure Assessment/Plan: hold Lasix, restart Entresto under close monitoring Code(s): N17.9 - ACUTE KIDNEY FAILURE, UNSPECIFIED Qualifiers: Acute renal failure type: with other specified pathological lesion Qualified Code(s): N17.8 - Other acute kidney failure (3) Mbsxw-kx-wifudgk kidney injury Assessment/Plan: continue monitoring electrolytes as outpatient Code(s): N17.9 - ACUTE KIDNEY FAILURE, UNSPECIFIED; N18.9 - CHRONIC KIDNEY DISEASE, UNSPECIFIED (4) CHF (congestive heart failure) Assessment/Plan: monitor intake and output, hold Lasix instructed patient to drain the pleural effusion once a week or if catheter if dyspneic restart Entresto 24/26 mg bid and recheck blood daily Code(s): I50.9 - HEART FAILURE, UNSPECIFIED Qualifiers: Heart failure type: combined systolic and diastolic Heart failure chronicity: chronic Qualified Code(s): I50.42 - 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) heart failure (5) Diabetes Assessment/Plan: accuchecks AC HS with JOSR to be continued at home hold Glipizide, hold Glucophage Code(s): E11.9 - TYPE 2 DIABETES MELLITUS WITHOUT COMPLICATIONS Qualifiers: Diabetes mellitus type: type 2 Diabetes mellitus complication status: with kidney complications Diabetes mellitus complication detail: with chronic kidney disease (6) Pleural effusion Assessment/Plan: stable drain via the Pleurx only once a week if possible Code(s): J90 - PLEURAL EFFUSION, NOT ELSEWHERE CLASSIFIED (7) Prerenal renal failure Assessment/Plan: restart Entresto at a lower dose 24/26 mg bid Code(s): N19 - UNSPECIFIED KIDNEY FAILURE (8) Tooth infection Assessment/Plan: pain management Percocet will give amoxicillin as outpatient follow up with dentist Code(s): K04.7 - PERIAPICAL ABSCESS WITHOUT SINUS
== END 2017-11-12 16:10 | disposition home or self-care (01) ==
LOC: JER 11:07 → JERBED 17:15 → J4S 20:13
PROVIDERS: ADMIT Internal Medicine; ATTEND Internal Medicine
PROC: 3E033VG Introduction of Insulin into Peripheral Vein, Percutaneous Approach (ICD-10-PCS; principal; 2017-11-11)
PROC: 3E033GC Introduction of Other Therapeutic Substance into Peripheral Vein, Percutaneous Approach (ICD-10-PCS; 2017-11-11)
PROC: 3E013VG Introduction of Insulin into Subcutaneous Tissue, Percutaneous Approach (ICD-10-PCS; 2017-11-11)
DX: E87.5 Hyperkalemia (principal); E11.22 Type 2 diabetes mellitus with diabetic chronic kidney disease; I12.9 Hypertensive chronic kidney disease with stage 1 through stage 4 chronic kidney disease, or unspecified chronic kidney disease; N18.9 Chronic kidney disease, unspecified; J44.9 Chronic obstructive pulmonary disease, unspecified; I50.9 Heart failure, unspecified; I25.10 Atherosclerotic heart disease of native coronary artery without angina pectoris; J90 Pleural effusion, not elsewhere classified; Z95.5 Presence of coronary angioplasty implant and graft; Z88.8 Allergy status to other drugs, medicaments and biological substances; I25.2 Old myocardial infarction; G62.9 Polyneuropathy, unspecified; E04.9 Nontoxic goiter, unspecified; N17.8 Other acute kidney failure; K04.7 Periapical abscess without sinus; M19.90 Unspecified osteoarthritis, unspecified site; K21.9 Gastro-esophageal reflux disease without esophagitis; Z79.84 Long term (current) use of oral hypoglycemic drugs; Z79.4 Long term (current) use of insulin; Z85.828 Personal history of other malignant neoplasm of skin; Z79.82 Long term (current) use of aspirin
CPT/HCPCS: 36415; 80053; 82962; 85025; 93005; 93010; 96372; 96374; 96375; 96376; 99283-25; G0378

== ENCOUNTER 2018-01-12 07:44 | Inpatient (IN) | payer OTHER, BC ==
--- NOTE | 2018-01-12 08:20 | PDOC ---
History of Present Illness - General Chief Complaint: Shortness of Breath Stated Complaint: FEVER/SHORTNESS OF BREATH Time Seen by Provider: 01/12/18 07:58 - History of Present Illness Initial Comments: 01/12/18 08:15 72 year old male, with a significant PMH of hypertension, hyperlipidemia, COPD, diabetes mellitus, congestive heart failure and right polar pleural drain in place for chronic right pleural effusions, here with the chief complaint that his right polar drain is not functioning properly which is causing him to be short of breath. He usually drains the port once every 3 to 4 days depending on how he feels. He last drained it on without any difficulties. He tried draining it last night and today but the fluid did not come out and there was bubbles along with blood. The patient believes the port is malfunctioning and it needs to be fixed. Now the water is redistributing to his abdomen, as the patient says he usually does not have fluid in his abdomen, but today he does. He says he does not have any abdominal pain. He feels well today and has no complaints other than the mild shortness of breath. On Friday night he had a fever of 101. He also had a fever yesterday but took 650 mg of tylenol as well as applied ice packs and he said the fever went away. He said he did not have a fever this morning. The patient denies chest pain, headache and dizziness. Denies chills, nausea, vomit, diarrhea and constipation. Denies dysuria, frequency, urgency and hematuria. Allergies: pioglitazone HCL PCP: Dr. Mondragon 01/12/18 08:25 Past History - Past Medical History Allergies/Adverse Reactions: Allergies Allergy/AdvReac Type Severity Reaction Status Date / Time pioglitazone HCl [From Actos] Allergy Severe CHF Verified 01/12/18 07:56 Home Medications: Ambulatory Orders Clopidogrel Bisulfate [Plavix -] 75 mg PO DAILY tablet 09/30/17 Allopurinol [Zyloprim -] 100 mg PO DAILY 30 Days #0 tablet 10/31/17 Carvedilol [Coreg -] 25 mg PO BID #60 tablet 10/31/17 Cholecalciferol (Vitamin D3) [Vitamin D -] 1,000 unit PO DAILY 11/11/17 Gabapentin [Neurontin -] 600 mg PO BID 11/11/17 Isosorbide Dinitrate [Isordil -] 40 mg PO TID 11/11/17 Aspirin [ASA -] 81 mg PO DAILY tab.chew 11/12/17 Atorvastatin Ca [Lipitor] 80 mg PO HS tablet 11/12/17 Docusate Sodium [Colace -] 300 mg PO DAILY 11/12/17 Insulin Sliding Scale [Novolog Vial Sliding Scale -] 1 vial SQ ACHS units 11/12 Insulin Sliding Scale [Novolog Vial Sliding Scale -] 1 vial SQ BIDAC 11/12/17 Sacubitril/Valsartan [Entresto 24 mg-26 mg Tablet] 1 tab PO BID tablet Anemia: No Asthma: No Cancer: Yes (skin) Cardiac Disorders: Yes (cad- cardiac cath, 6 stents total) CVA: No COPD: Yes CHF: Yes DVT: No Dementia: No Diabetes: Yes Dialysis: No (CKD) GI Disorders: No Disorders: No HTN: Yes Hypercholesterolemia: Yes Liver Disease: No Seizures: No Thyroid Disease: No - Surgical History Abdominal Surgery: Yes (HERNIA repair) Appendectomy: No Cardiac Surgery: Yes (STENTS /, 07/2016) Cholecystectomy: No Lung Surgery: Yes (bronchoscopy 03/17, right chest pleural catheter) Neurologic Surgery: No Orthopedic Surgery: No - Immunization History Td Vaccination: Yes Immunization Up to Date: Yes - Suicide/Smoking/Psychosocial Hx Smoking Status: No Smoking History: Former smoker Have you smoked in the past 12 months: No Number of Cigarettes Smoked Daily: 0 If you are a former smoker, when did you quit?: 35yrs ago Information on smoking cessation initiated: No 'Breaking Loose' booklet given: 08/15/15 Hx Alcohol Use: No Drug/Substance Use Hx: No Substance Use Type: None Hx Substance Use Treatment: No Review of Systems - Review of Systems Comments:: 01/12/18 08:28 CONSTITUTIONAL: Positive: Fever Absent: chills, diaphoresis, generalized weakness, malaise, loss of appetite HEENT: Absent: rhinorrhea, nasal congestion, throat pain, throat swelling, difficulty swallowing, mouth swelling, ear pain, eye pain, visual Changes CARDIOVASCULAR: Positive: Peripheral edema Absent: chest pain, syncope, palpitations, irregular heart rate, lightheadedness RESPIRATORY: Positive: Shortness of breath, dyspnea with exertion Absent: cough, orthopnea, wheezing, stridor, hemoptysis GASTROINTESTINAL: Positive: Abdominal distension Absent: abdominal pain, nausea, vomiting, diarrhea, constipation, melena, hematochezia GENITOURINARY: Absent: dysuria, frequency, urgency, hesitancy, hematuria, flank pain, genital pain MUSCULOSKELETAL: Absent: myalgia, arthralgia, joint swelling SKIN: Absent: rash, itching, pallor HEMATOLOGIC/IMMUNOLOGIC: Absent: easy bleeding, easy bruising, lymphadenopathy, frequent infections ENDOCRINE: Absent: unexplained weight gain, unexplained weight loss, heat intolerance, cold intolerance NEUROLOGIC: Absent: headache, focal weakness or paresthesias, dizziness, unsteady gait, seizure, mental status changes, bladder or bowel incontinence PSYCHIATRIC: Absent: anxiety, depression, suicidal or homicidal ideation, hallucinations. *Physical Exam - Vital Signs Last Vital Signs Temp Pulse Resp BP Pulse Ox 97.4 F L 71 20 139/64 95 01/12/18 07:45 01/12/18 07:45 01/12/18 07:45 01/12/18 07:45 01/12/18 07:45 - Physical Exam Comments: 01/12/18 08:30 GENERAL: Well developed, well nourished. Awake and alert. No acute distress. HEENT: Normocephalic, atraumatic. PERRLA, EOMI. No conjunctival pallor. Sclera are non- icteric. Moist mucous membranes. Oropharynx is clear. NECK: Supple. Full ROM. No JVD. Carotid pulses 2+ and symmetric, without bruits. No thyromegaly. No lymphadenopathy. CARDIOVASCULAR: Regular rate and rhythm. No murmurs, rubs, or gallops. Distal pulses are 2+ and symmetric. PULMONARY: There are dull breath sounds on the Right side. No evidence of respiratory distress. No wheezing, rales or rhonchi. ABDOMINAL: Abdomen is distended with a fluid wave. It is still soft and non-tender. There is No rebound or guarding. No organomegaly. Normoactive bowel sounds. MUSCULOSKELETAL Normal range of motion at all joints. No bony deformities or tenderness. No CVA tenderness. EXTREMITIES: There is 1+ edema in both ankles. No cyanosis. No clubbing. No calf tenderness. SKIN: Warm and dry. Normal capillary refill. No rashes. No jaundice. NEUROLOGICAL: Alert, awake, appropriate. Cranial nerves 2-12 intact. No deficits to light touch and temperature in face, upper extremities and lower extremities. No motor deficits in the in face, upper extremities and lower extremities. PSYCHIATRIC: Cooperative. Good eye contact. Appropriate mood and affect. ED Treatment Course - LABORATORY CBC & Chemistry Diagram: 01/12/18 08:40 01/12/18 08:40 Medical Decision Making - Medical Decision Making 01/12/18 08:37 72 yo M w a hx of hypertension, hyperlipidemia, COPD, diabetes mellitus, congestive heart failure and right polar pleural drain in place for chronic right pleural effusions is here bc his pleural drain is not working appropriately and he is having a difficult time draining his chest. The water is now redistributing to his stomach. He said he had a fever for the past 2 days but it went away after taking tylenol. Plan: Cbc, cmp, bnp, cxr, ekg, consult Dr. Alvarez regarding his malfunctioning port. IR called and requested a Chest CT be taken. Chest CT showed probable PNA with a possible parapneumonic effusion. Patient will be admitted, IR will come and fix the pleural catheter. Giving patient Ceftriaxone and azithromycin. 01/12/18 16:09 01/12/18 16:46 01/12/18 17:11 *DC/Admit/Observation/Transfer Diagnosis at time of Disposition: Pneumonia, CHF (congestive heart failure) - Discharge Dispostion Condition at time of disposition: Guarded - Referrals Referrals: Siobhan Mondragon MD [Primary Care Provider] - - Patient Instructions - Post Discharge Activity
--- NOTE | 2018-01-12 08:41 | PDOC ---
Attending Attestation - HPI HPI: 01/12/18 08:46 72m Pmhx: chronic right pleural drain pleural effusion, Lung ca, htn, hld, copd, Cc: Drain not working Drain every 3 days, last drain was usually a clear fluid comes out, which occurred yesterday and today. Today the fluid comes out as bloody and bubbly Not able to drain fluid from chest properly and water is redistributing in abdomen Has now developed some shortness of breath Fever of 101 on fri and friday 650 mg of tylenol with alleviation to fever No other complaints. Allergies: Pioglitazone HCl <Melvin Sanabria - Last Filed: 01/12/18 13:42> - Resident Resident Name: Kush Heath - ED Attending Attestation I have performed the following: I have examined & evaluated the patient, The case was reviewed & discussed with the resident, I agree w/resident's findings & plan, Exceptions are as noted - Physicial Exam PE: 01/12/18 09:01 Upon attempting to assess Mr Davis he states "I don't know what is going on here" "What do you want" Please refer to resident examination - Medical Decision Making 01/12/18 09:03 Pt presenting to the ER with a complaint of pleurex cathether dysfunction Cathether was placed per chart review by Dr liao Will do: Labs CXR consult Dr Liao for tube adjustment 01/12/18 10:11 EKG: NSR, rate of 74 bpm, Left axis deviation, no st elevations or depressions Intervals are abnormal - pr nml, QRS at upper limit of nml (120 ms), t waves upright Laboratory Tests 01/12/18 01/12/18 01/12/18 08:40 08:40 09:05 WBC 8.4 Hgb 11.7 Hct 34.3 L Plt Count 152 INR 1.20 H Sodium 142 Potassium 4.7 Chloride 109 H Carbon Dioxide 25 BUN 63 H Creatinine 1.9 H Random Glucose 160 H B-Natriuretic Peptide 7304.80 H CXR reveals some right pleural effusion Pt case being reviewed by Dr. Liao he is requesting US of the abdomen States pt does not need repeat CT, there is likely no drainage because of decreased fluid in the thorax 01/12/18 10:34 Dr Trujillo requesting pt to be admitted Dr Liao will instill cathflo and remove tomorrow Clinical Impression: pleurex cathether dysfunction vs. decreased pleural effusion <Tram Tam - Last Filed: 01/14/18 11:31>
[2018-01-12 08:56] LABS: BASO % 0.4 % (0-2.0); EOS % 1.2 % (0-4.5); HEMATOCRIT 34.3 % (35.4-49); HEMOGLOBIN 11.7 GM/dL (11.7-16.9); LYMPH % 10.9 % (8-40); MCH 31.1 pg (25.7-33.7); MEAN CELL VOLUME 91.5 fl (80-96); MEAN PLT VOLUME 7.9 fl (7.5-11.1); NEUT % 78.5 % (42.8-82.8); PLATELET COUNT 152 K/MM3 (134-434); RBC 3.75 M/mm3 (4.00-5.60); RDW 15.1 % (11.9-15.9); WHITE BLOOD COUNT 8.4 K/mm3 (4.0-10.0)
[2018-01-12 09:28] LABS: ALBUMIN 2.3 g/dl (3.4-5.0); ANION GAP 8 (8-16); BLOOD UREA NITROGEN 63 mg/dL (7-18); CALCIUM 8.1 mg/dL (8.5-10.1); CHLORIDE 109 mmol/L (98-107); CO2 25 mmol/L (21-32); CREATININE 1.9 mg/dL (0.7-1.3); GLUCOSE,RANDOM 160 mg/dL (74-106); POTASSIUM 4.7 mmol/L (3.5-5.1); SGOT/AST 11 U/L (15-37); SGPT/ALT 17 U/L (12-78); SODIUM 142 mmol/L (136-145)
[2018-01-12 09:31] LABS: INR 1.2 (0.83-1.09); PROTHROMBIN TIME (PATIENT) 13.6 SEC (9.7-13.0)
[2018-01-12 09:32] LABS: ALK PHOS 99 U/L (45-117); BILIRUBIN,TOTAL 0.8 mg/dL (0.2-1.0)
[2018-01-12 10:37] LABS: URINE APPEARANCE CLEAR; URINE BILIRUBIN NEGATIVE (<2.0 mg/dL); URINE COLOR YELLOW; URINE GLUCOSE (UA) NEGATIVE (NEGATIVE); URINE KETONE NEGATIVE (NEGATIVE); URINE LEUK ESTERASE NEGATIVE (NEGATIVE); URINE NITRITE NEGATIVE (NEGATIVE); URINE UROBILINOGEN NEGATIVE mg/dL (0.2-1.0)
[2018-01-12 10:38] LABS: URINE PROTEIN 2+ (NEGATIVE)
[2018-01-12 11:01] LABS: URINE HYALINE CAST 1 /lpf; URINE MUCUS RARE
--- NOTE | 2018-01-12 13:43 | EKG ---
Test Reason : Blood Pressure : / mmHG Vent. Rate : 074 BPM Atrial Rate : 074 BPM P-R Int : 182 ms QRS Dur : 120 ms QT Int : 428 ms P-R-T Axes : 051 -47 094 degrees QTc Int : 475 ms NORMAL SINUS RHYTHM LEFT AXIS DEVIATION POSSIBLE ANTEROSEPTAL INFARCT (CITED ON OR BEFORE 06-AUG-2017) ABNORMAL ECG WHEN COMPARED WITH ECG OF 11-NOV-2017 12:34, NO SIGNIFICANT CHANGE WAS FOUND Confirmed by FRANCISCA LOPEZ MD ([id number]) on 01/12/2018 1:43:24 PM Referred By: Confirmed By:FRANCISCA LOPEZ MD
--- NOTE | 2018-01-12 16:43 | PN ---
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 (short form) - Note 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: PULMONARY CONSULTATION DICTATED 01/12/18 IMP RLL PNEUMONIA LOCULATED R PLEURAL EFFUSION NEW CHRONIC R PLEURAL EFFUSION S/P PLEUR-X ASHD S/P MULTIPLE STENTS CHF ACUTE ON CHRONIC KIDNEY DISEASE HTN PLAN IV ABX O2 MONITOR LYTES, RENAL FUNCTION CULTURE INTRA-PLEURAL TPA IR DR JENSEN Problem List - Problems (1) CHF (congestive heart failure) Code(s): I50.9 - HEART FAILURE, UNSPECIFIED Qualifiers: (2) Pneumonia Code(s): J18.9 - PNEUMONIA, UNSPECIFIED ORGANISM (3) Emrbd-jk-bsrksso kidney injury Code(s): N17.9 - ACUTE KIDNEY FAILURE, UNSPECIFIED; N18.9 - CHRONIC KIDNEY DISEASE, UNSPECIFIED (4) CKD (chronic kidney disease) Code(s): N18.9 - CHRONIC KIDNEY DISEASE, UNSPECIFIED (5) Chronic left systolic heart failure Code(s): I50.22 - CHRONIC SYSTOLIC (CONGESTIVE) HEART FAILURE (6) Diabetes Code(s): E11.9 - TYPE 2 DIABETES MELLITUS WITHOUT COMPLICATIONS (7) Leg swelling Code(s): M79.89 - OTHER SPECIFIED SOFT TISSUE DISORDERS (8) Pulmonary hypertension Code(s): I27.2 - OTHER SECONDARY PULMONARY HYPERTENSION * DO NOT USE * (9) Shortness of breath Code(s): R06.02 - SHORTNESS OF BREATH (10) CAD (coronary artery disease) Code(s): I25.10 - ATHSCL HEART DISEASE OF [place] CORONARY ARTERY W/O ANG PCTRS Qualifiers: (11) HTN (hypertension) Code(s): I10 - ESSENTIAL (PRIMARY) HYPERTENSION Qualifiers: (12) Hyperlipidemia Code(s): E78.5 - HYPERLIPIDEMIA, UNSPECIFIED Qualifiers: (13) Pleural effusion Code(s): J90 - PLEURAL EFFUSION, NOT ELSEWHERE CLASSIFIED
[2018-01-12] MEDS ORDERED: AZITHROMYCIN IVPB 500 MG in DEXTROSE 5%-WATER - 250 ML IVPB ONE (17:09)
[2018-01-12] MEDS ORDERED: AZITHROMYCIN IVPB 250 ML IVPB ONE (18:23)
--- NOTE | 2018-01-12 19:13 | HP ---
Admitting History and Physical - Primary Care Physician PCP: James Mar - Admission Chief Complaint: SOB History of Present Illness: Pt with significant Hx/o chronic pleural effusion, PleureX catheter, self draining (with his help) pleural effusion Q3days when starts to feel SOB, came to ER after trying to drain pleural fluid and came out a little "bloody fluid and some bubbles". Pt's pleural effusion was last time drained last week. Pt also report weakness , night sweats, subjective fever over the last couple of days. History Source: Patient - Past Medical History [employer]: Yes: Peripheral Neuropathy Cardiovascular: Yes: CAD (prior anterolateral MO 03/1995 w/ PCI of LAD & ramus, PCI of LAD 05/1996 (with 100% occluded ramus and patent RCA), rotoblator & PCI w / Xience stent prox LAD & prox/mid Cfx 07/30/16), CHF, Hyperlipdemia, [place] ( anterolateral MO 1994), Other (CHF) Pulmonary: Yes: Pneumonia (03/2016), Other (Chronic right pleural effusion ) Gastrointestinal: Yes: GERD, Irritable Bowel Disease Renal/: Yes: Renal Inusuff, BPH, Renal Calculi Musculoskeletal: Yes: Osteoarthritis Rheumatology: Yes: Gout Endocrine: Yes: Diabetes Mellitus (with peripheral neuropathy), Other ( Hypogonadism, nodular goiter) - Past Surgical History Past Surgical History: Yes: Cataract Removal (bilateral), Hernia Repair ( umbillical) - Smoking History Smoking history: Former smoker Have you smoked in the past 12 months: No Aproximately how many cigarettes per day: 0 If you are a former smoker, when did you quit?: 35yrs ago - Alcohol/Substance Use Hx Alcohol Use: No History of Substance Use: reports: None - Social History ADL: Independent History of Recent Travel: No Home Medications - Allergies Allergies/Adverse Reactions: Allergies Allergy/AdvReac Type Severity Reaction Status Date / Time pioglitazone HCl [From Actos] Allergy Severe CHF Verified 01/12/18 07:56 - Home Medications Home Medications: Ambulatory Orders Clopidogrel Bisulfate [Plavix -] 75 mg PO DAILY tablet 09/30/17 Allopurinol [Zyloprim -] 100 mg PO DAILY 30 Days #0 tablet 10/31/17 Carvedilol [Coreg -] 25 mg PO BID #60 tablet 10/31/17 Cholecalciferol (Vitamin D3) [Vitamin D -] 1,000 unit PO DAILY 11/11/17 Gabapentin [Neurontin -] 600 mg PO BID 11/11/17 Isosorbide Dinitrate [Isordil -] 40 mg PO TID 11/11/17 Aspirin [ASA -] 81 mg PO DAILY tab.chew 11/12/17 Atorvastatin Ca [Lipitor] 80 mg PO HS tablet 11/12/17 Docusate Sodium [Colace -] 300 mg PO DAILY 11/12/17 Insulin Sliding Scale [Novolog Vial Sliding Scale -] 1 vial SQ ACHS units 11/12 Insulin Sliding Scale [Novolog Vial Sliding Scale -] 1 vial SQ BIDAC 11/12/17 Sacubitril/Valsartan [Entresto 24 mg-26 mg Tablet] 1 tab PO BID tablet Family Disease History - Family Disease History Family Disease History: Heart Disease: Mother (CHF) Review of Systems - Review of Systems Constitutional: reports: Fever (subjective), Weakness. denies: Chills Eyes: denies: Blurred Vision, Double Vision HENT: denies: Difficult Swallowing, Ear Pain, Epistaxis, Nasal Congestion, Throat Pain Neck: denies: Pain on Movement, Stiffness Cardiovascular: denies: Chest Pain, Edema, Palpitations Respiratory: reports: Cough, SOB. denies: Wheezing Gastrointestinal: denies: Abdominal Pain, Nausea, Vomiting Genitourinary: denies: Burning, Discharge Musculoskeletal: denies: Back Pain, Muscle Pain Neurological: denies: Confusion, Dizziness Endocrine: denies: Intolerance to Cold, Intolerance to Heat Hematology/Lymphatic: denies: Easily Bruised, Excessive Bleeding Physical Examination Vital Signs: Vital Signs Temperature 97.4 F L 01/12/18 07:45 Pulse Rate 75 01/12/18 18:46 Respiratory Rate 16 01/12/18 18:46 Blood Pressure 142/69 01/12/18 18:46 O2 Sat by Pulse Oximetry (%) 99 01/12/18 18:46 Constitutional: Yes: No Distress, Calm Eyes: Yes: Conjunctiva Clear, EOM Intact HENT: No: Epistaxis, Pharyngeal Erythema, Rhinnorhea Neck: Yes: Trachea Midline. No: Lymphadenopathy Cardiovascular: Yes: Regular Rate and Rhythm, S1, S2 Respiratory: Yes: Regular, Rhonchi (scattered), Other (decreased BS on right side). No: Wheezes Gastrointestinal: Yes: Normal Bowel Sounds, Soft. No: Tenderness ...Rectal Exam: Yes: Deferred Renal/: No: CVA Tenderness - Left, CVA Tenderness - Right Extremities: No: Cold, Cool, Cyanosis Edema: LLE: Trace, RLE: Trace Neurological: Yes: Alert, Oriented, Other (motor and sensory examination is symmetric) Psychiatric: Yes: Alert, Oriented Labs: CBC, BMP 01/12/18 08:40 01/12/18 08:40 Imaging - Results Chest X-ray: Report Reviewed, Image Reviewed Cat Scan: Image Reviewed Problem List - Problems (1) Pneumonia Code(s): J18.9 - PNEUMONIA, UNSPECIFIED ORGANISM (2) Pleural effusion Assessment/Plan: it seems loculated Code(s): J90 - PLEURAL EFFUSION, NOT ELSEWHERE CLASSIFIED (3) CHF (congestive heart failure) Code(s): I50.9 - HEART FAILURE, UNSPECIFIED (4) CAD (coronary artery disease) Code(s): I25.10 - ATHSCL HEART DISEASE OF [place] CORONARY ARTERY W/O ANG PCTRS Qualifiers: Qualified Code(s): I25.119 - Atherosclerotic heart disease of [place] coronary artery with unspecified angina pectoris (5) Hlyyt-rv-dwiscbr kidney injury Code(s): N17.9 - ACUTE KIDNEY FAILURE, UNSPECIFIED; N18.9 - CHRONIC KIDNEY DISEASE, UNSPECIFIED (6) CKD (chronic kidney disease) Code(s): N18.9 - CHRONIC KIDNEY DISEASE, UNSPECIFIED (7) Diabetes mellitus Code(s): E11.9 - TYPE 2 DIABETES MELLITUS WITHOUT COMPLICATIONS (8) Lung nodule Code(s): R91.1 - SOLITARY PULMONARY NODULE Assessment/Plan IV abtx Pulmonary consult IR consult AM labs (Covering Dr. Mondragon)
--- NOTE | 2018-01-12 19:27 | CONS ---
DATE OF CONSULTATION: 01/12/2018 REFERRING PHYSICIAN: Siobhan Mondragon MD The patient is a 72-year-old white male, known to me from previous hospitalization as well as office followup. Past medical history includes congestive heart failure, hypertension, hyperlipidemia, diabetes, chronic right pleural effusion, status post Pleurx catheter, admitted to [facility] with complaint of 2-day history of increasing shortness of breath. The patient apparently 2 days ago started developing a fever. He had temperature to 101.6 and yesterday developed fever 102.6. He also denied any complaint of cough or wheezing. According to his , last night he had profuse night sweats. Today, when trying to drain his Pleurx catheter, it was noted not much fluid was coming out, with small amount of bloody fluid, at which time he came to the emergency room. In the ER, he had a CT scan of his chest performed, which revealed a loculated right pleural effusion, which is new, as well as a right lower lobe consolidation. The patient denies any hemoptysis. Denies any nausea, vomiting, or diaphoresis. There is no history of tobacco use. There is no history of recent travel. Past medical history, again, includes ASHD, status post stents, congestive heart failure, history of skin cancer, COPD, history of chronic right pleural effusion, hypertension, hyperlipidemia, diabetes. REVIEW OF SYSTEMS: No orthopnea, no PND. Positive shortness of breath. Positive fever, positive chills. No abdominal pain. Positive mild lower extremity edema. Medications prior to admission include Plavix, Zyloprim, Coreg, Vitamin D3, Neurontin, Isordil, aspirin, Lipitor, Colace, and Entresto. PHYSICAL EXAMINATION: General: The patient is a well-developed, well-nourished male, awake, alert, in no acute distress. Vital Signs: He is afebrile. Blood pressure is 139/64. Respiratory rate 20. O2 saturation is 95%. HEENT: Normocephalic, atraumatic. Neck: Supple. Heart: Regular, S1, S2. Chest: Few crackles at the right base. Abdomen: Soft. Bowel sounds positive. Extremities: Bilateral lower extremity edema. LABORATORY DATA: WBC 8.4, hemoglobin 11.7, hematocrit 34.3, platelet count 152,000. BUN 63, creatinine 1.9. WBC is 8.4, hemoglobin 11.7, hematocrit 34.3, platelet count 152,000. Chest CT reveals, as noted earlier, loculated right pleural effusion, right lower lobe consolidation. IMPRESSION: 1. Pneumonia, right lower lobe. 2. Right pleural effusion, chronic. 3. Loculated right pleural effusion, possibly secondary to complicated parapneumonic effusion. 4. Arteriosclerotic heart disease, status post multiple stents. 5. Congestive heart failure. 6. Hypertension. 7. Acute on chronic kidney disease. PLAN: IV antibiotics, inhaled bronchodilators, supplemental O2. Cultures, as well as will have Interventional Radiology infuse tPA into Pleurx so we can break up the loculations and the loculated pleural fluid. LIBBY JENSEN M.D. RICHARD/[id number]
[2018-01-12] MEDS ORDERED: guaiFENesin/D-M SUGAR-FREE/ACLHOL-FREE 118 ML BOTTLE PO PRN (19:39)
[2018-01-12] MEDS ORDERED: SACUBITRIL/VALSARTAN 24 MG-26 MG TABLET PO SCH (22:00)
[2018-01-12] MEDS: ATORVASTATIN CA 80 MG TABLET (FP) PO SCH (22:33)
[2018-01-12] MEDS: CARVEDILOL 25 MG TABLET (FP) PO SCH (22:33)
[2018-01-12] MEDS: GABAPENTIN 300 MG CAPSULE (FP) PO SCH (22:34)
[2018-01-12] MEDS: ISOSORBIDE DINITRATE 20 MG TABLET (FP) PO SCH (23:00)
[2018-01-12] MEDS: INSULIN SLIDING SCALE (NOVOLOG) 1 VIAL SQ SCH (23:17)
[2018-01-13] MEDS ORDERED: ONDANSETRON 4 MG/2 ML VIAL IVPUSH PRN (03:37)
[2018-01-13] MEDS: INSULIN SLIDING SCALE (NOVOLOG) 1 VIAL SQ SCH ×3 (06:39→17:47)
[2018-01-13] MEDS ORDERED: PT OWN MED DRAWER 7, Y5N ONE ×7 (09:00→18:05)
[2018-01-13] MEDS: ISOSORBIDE DINITRATE 20 MG TABLET (FP) PO SCH ×3 (09:06→17:53)
[2018-01-13 09:29] LABS: HEMATOCRIT 32.9 % (35.4-49); HEMOGLOBIN 10.9 GM/dL (11.7-16.9); MCH 30.4 pg (25.7-33.7); MCHC 33.1 g/dl (32.0-35.9); MEAN CELL VOLUME 91.7 fl (80-96); MEAN PLT VOLUME 8.2 fl (7.5-11.1); PLATELET COUNT 164 K/MM3 (134-434); RBC 3.59 M/mm3 (4.00-5.60); RDW 15.1 % (11.9-15.9); WHITE BLOOD COUNT 6.3 K/mm3 (4.0-10.0)
[2018-01-13 09:52] LABS: ALK PHOS 90 U/L (45-117); ANION GAP 7 (8-16); BILIRUBIN,TOTAL 0.8 mg/dL (0.2-1.0); BLOOD UREA NITROGEN 59 mg/dL (7-18); CALCIUM 7.8 mg/dL (8.5-10.1); CHLORIDE 107 mmol/L (98-107); CO2 24 mmol/L (21-32); CREATININE 1.8 mg/dL (0.7-1.3); GLUCOSE,RANDOM 182 mg/dL (74-106); SGOT/AST 18 U/L (15-37); SGPT/ALT 29 U/L (12-78); SODIUM 138 mmol/L (136-145); TOT PROT 5.4 g/dl (6.4-8.2)
[2018-01-13] MEDS ORDERED: ALTEPLASE 2 MG VIAL NR ONE (10:00)
[2018-01-13] MEDS ORDERED: DEXTROSE 5%-WATER - 50 ML IVPB ONE (11:01)
[2018-01-13] MEDS ORDERED: cefTRIAXone SODIUM 1 GM VIAL ONE (11:01)
[2018-01-13] MEDS: CARVEDILOL 25 MG TABLET (FP) PO SCH ×2 (11:04→21:37)
[2018-01-13] MEDS: CHOLECALCIFEROL (VITAMIN D3) 1,000 UNIT TABLET (FP) PO SCH (11:05)
[2018-01-13] MEDS: ALLOPURINOL 100 MG TABLET (FP) PO SCH (11:05)
[2018-01-13] MEDS: ASPIRIN 81 MG CHEWABLE TABLETS PO SCH (11:05)
[2018-01-13] MEDS: CLOPIDOGREL BISULFATE 75 MG TABLET (FP) PO SCH (11:05)
[2018-01-13] MEDS: GABAPENTIN 300 MG CAPSULE (FP) PO SCH ×2 (11:05→21:38)
[2018-01-13] MEDS: DOCUSATE SODIUM 100 MG CAPSULE (FP) PO SCH (11:05)
[2018-01-13] MEDS: CEFTRIAXONE 1 GM in DEXTROSE 5%-WATER - 50 ML IVPB SCH (11:06)
[2018-01-13] MEDS: AZITHROMYCIN IVPB 500 MG in DEXTROSE 5%-WATER - 250 ML IVPB SCH (11:36)
[2018-01-13] MEDS ORDERED: INSULIN (NOVOLOG) ASPART 100 UNITS/ML 10ML VIAL ONE ×4 (12:51→21:11)
--- NOTE | 2018-01-13 13:31 | PN ---
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, Physician History of Present Illness: PULMONARY ALERT,TMAX 100.4. PT S/P INTRA-PLEURAL TPA EARLIER TOLERATED PROCEDURE WELL - Current Medication List Current Medications: Active Medications Acetaminophen (Tylenol -) 650 mg PO Q6H PRN PRN Reason: FEVER/PAIN LEVEL 1-5 Allopurinol (Zyloprim -) 100 mg PO DAILY [facility] Last Admin: 01/13/18 11:05 Dose: 100 mg Aspirin (Asa -) 81 mg PO DAILY [facility] Last Admin: 01/13/18 11:05 Dose: 81 mg Atorvastatin Calcium (Lipitor -) 80 mg PO HS [facility] Last Admin: 01/12/18 22:33 Dose: 80 mg Carvedilol (Coreg -) 25 mg PO BID [facility] Last Admin: 01/13/18 11:04 Dose: 25 mg Cholecalciferol (Vitamin D3 -) 1,000 unit PO DAILY [facility] Last Admin: 01/13/18 11:05 Dose: 1,000 unit Clopidogrel Bisulfate (Plavix -) 75 mg PO DAILY [facility] Last Admin: 01/13/18 11:05 Dose: 75 mg Docusate Sodium (Colace -) 300 mg PO DAILY [facility] Last Admin: 01/13/18 11:05 Dose: 300 mg Gabapentin (Neurontin -) 600 mg PO BID [facility] Last Admin: 01/13/18 11:05 Dose: 600 mg Guaifenesin (Diabetic Tussin Dm -) 10 ml PO Q6H PRN PRN Reason: COUGH Azithromycin 500 mg/ Dextrose 250 mls @ 250 mls/hr IVPB DAILY [facility] Last Admin: 01/13/18 11:36 Dose: 250 mls/hr Ceftriaxone Sodium 1 gm/ (Dextrose) 50 mls @ 100 mls/hr IVPB DAILY [facility] Last Admin: 01/13/18 11:06 Dose: 100 mls/hr Insulin Aspart (Novolog Vial Sliding Scale -) 1 vial SQ ACHS [facility]; Protocol Last Admin: 01/13/18 12:57 Dose: 4 units Isosorbide Dinitrate (Isordil -) 40 mg PO TIDISORDIL [facility] Last Admin: 01/13/18 12:58 Dose: 40 mg Ondansetron HCl (Zofran Injection) 4 mg IVPUSH Q6H PRN PRN Reason: NAUSEA AND/OR VOMITING Sacubitril/Valsartan (Entresto 24 Mg-26 Mg Tablet) 1 tab PO BID [facility] - Objective Vital Signs: Vital Signs Temperature 99.6 F 01/13/18 06:52 Pulse Rate 84 01/13/18 06:52 Respiratory Rate 20 01/13/18 06:52 Blood Pressure 134/66 01/13/18 06:52 O2 Sat by Pulse Oximetry (%) 98 01/13/18 02:28 Constitutional: Yes: Well Nourished, Calm Eyes: Yes: WNL HENT: Yes: WNL Neck: Yes: WNL Cardiovascular: Yes: Regular Rate and Rhythm, S1, S2 Respiratory: Yes: Rales (BIBASAILR CRACKLES) Gastrointestinal: Yes: Normal Bowel Sounds, Soft Extremities: Yes: WNL Edema: Yes Labs: CBC, BMP 01/13/18 09:00 01/13/18 09:00 INR, PTT INR 1.20 (0.83-1.09) H 01/12/18 09:05 Problem List - Problems (1) CHF (congestive heart failure) Code(s): I50.9 - HEART FAILURE, UNSPECIFIED Qualifiers: (2) Pneumonia Code(s): J18.9 - PNEUMONIA, UNSPECIFIED ORGANISM (3) Xlrfc-cq-vitqozi kidney injury Code(s): N17.9 - ACUTE KIDNEY FAILURE, UNSPECIFIED; N18.9 - CHRONIC KIDNEY DISEASE, UNSPECIFIED (4) CKD (chronic kidney disease) Code(s): N18.9 - CHRONIC KIDNEY DISEASE, UNSPECIFIED (5) Chronic left systolic heart failure Code(s): I50.22 - CHRONIC SYSTOLIC (CONGESTIVE) HEART FAILURE (6) Diabetes Code(s): E11.9 - TYPE 2 DIABETES MELLITUS WITHOUT COMPLICATIONS (7) Leg swelling Code(s): M79.89 - OTHER SPECIFIED SOFT TISSUE DISORDERS (8) Pulmonary hypertension Code(s): I27.2 - OTHER SECONDARY PULMONARY HYPERTENSION * DO NOT USE * (9) Shortness of breath Code(s): R06.02 - SHORTNESS OF BREATH (10) CAD (coronary artery disease) Code(s): I25.10 - ATHSCL HEART DISEASE OF [place] CORONARY ARTERY W/O ANG PCTRS Qualifiers: (11) HTN (hypertension) Code(s): I10 - ESSENTIAL (PRIMARY) HYPERTENSION Qualifiers: (12) Hyperlipidemia Code(s): E78.5 - HYPERLIPIDEMIA, UNSPECIFIED Qualifiers: (13) Pleural effusion Code(s): J90 - PLEURAL EFFUSION, NOT ELSEWHERE CLASSIFIED Assessment/Plan IMP RLL PNEUMONIA LOCULATED R PLEURAL EFFUSION NEW S/P MTPA CHRONIC R PLEURAL EFFUSION S/P PLEUR-X ASHD S/P MULTIPLE STENTS CHF ACUTE ON CHRONIC KIDNEY DISEASE HTN PLAN IV ABX O2 MONITOR LYTES, RENAL FUNCTION F/U CHEST X-RAYS DR JENSEN Problem List - Problems (1) CHF (congestive heart failure) Code(s): I50.9 - HEART FAILURE, UNSPECIFIED Qualifiers: (2) Pneumonia Code(s): J18.9 - PNEUMONIA, UNSPECIFIED ORGANISM (3) Stqsd-ik-oovfown kidney injury Code(s): N17.9 - ACUTE KIDNEY FAILURE, UNSPECIFIED; N18.9 - CHRONIC KIDNEY DISEASE, UNSPECIFIED (4) CKD (chronic kidney disease) Code(s): N18.9 - CHRONIC KIDNEY DISEASE, UNSPECIFIED (5) Chronic left systolic heart failure Code(s): I50.22 - CHRONIC SYSTOLIC (CONGESTIVE) HEART FAILURE (6) Diabetes Code(s): E11.9 - TYPE 2 DIABETES MELLITUS WITHOUT COMPLICATIONS (7) Leg swelling Code(s): M79.89 - OTHER SPECIFIED SOFT TISSUE DISORDERS (8) Pulmonary hypertension Code(s): I27.2 - OTHER SECONDARY PULMONARY HYPERTENSION * DO NOT USE * (9) Shortness of breath Code(s): R06.02 - SHORTNESS OF BREATH (10) CAD (coronary artery disease) Code(s): I25.10 - ATHSCL HEART DISEASE OF [place] CORONARY ARTERY W/O ANG PCTRS Qualifiers: (11) HTN (hypertension) Code(s): I10 - ESSENTIAL (PRIMARY) HYPERTENSION Qualifiers: (12) Hyperlipidemia Code(s): E78.5 - HYPERLIPIDEMIA, UNSPECIFIED Qualifiers: (13) Pleural effusion Code(s): J90 - PLEURAL EFFUSION, NOT ELSEWHERE CLASSIFIED
[2018-01-13] MEDS ORDERED: IBUPROFEN 800 MG/8 ML IJ IVPB ONE ×2 (13:50→14:07)
--- NOTE | 2018-01-13 20:12 | PN ---
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, Physician Chief Complaint: dyspnea and inability to drain fluid from pleurx catheter. History of Present Illness: 72 yo male with PMH of CHF , DM type 2 and recurrent pleural effusions and peramanent Pleurx catheter was admitted after being unable to drain his catheter. Earlier today he developed low grade fever and left chest pain. He was rushed to IR where his catheter was treated with Ateplase. Approximately 900 cc fluid were drained afterwards.The fluid was sent for cultures. - Current Medication List Current Medications: Active Medications Acetaminophen (Tylenol -) 650 mg PO Q6H PRN PRN Reason: FEVER/PAIN LEVEL 1-5 Allopurinol (Zyloprim -) 100 mg PO DAILY [facility] Last Admin: 01/13/18 11:05 Dose: 100 mg Aspirin (Asa -) 81 mg PO DAILY [facility] Last Admin: 01/13/18 11:05 Dose: 81 mg Atorvastatin Calcium (Lipitor -) 80 mg PO HS [facility] Last Admin: 01/12/18 22:33 Dose: 80 mg Carvedilol (Coreg -) 25 mg PO BID [facility] Last Admin: 01/13/18 11:04 Dose: 25 mg Cholecalciferol (Vitamin D3 -) 1,000 unit PO DAILY [facility] Last Admin: 01/13/18 11:05 Dose: 1,000 unit Clopidogrel Bisulfate (Plavix -) 75 mg PO DAILY [facility] Last Admin: 01/13/18 11:05 Dose: 75 mg Docusate Sodium (Colace -) 300 mg PO DAILY [facility] Last Admin: 01/13/18 11:05 Dose: 300 mg Gabapentin (Neurontin -) 600 mg PO BID [facility] Last Admin: 01/13/18 11:05 Dose: 600 mg Guaifenesin (Diabetic Tussin Dm -) 10 ml PO Q6H PRN PRN Reason: COUGH Azithromycin 500 mg/ Dextrose 250 mls @ 250 mls/hr IVPB DAILY [facility] Last Admin: 01/13/18 11:36 Dose: 250 mls/hr Ceftriaxone Sodium 1 gm/ (Dextrose) 50 mls @ 100 mls/hr IVPB DAILY [facility] Last Admin: 01/13/18 11:06 Dose: 100 mls/hr Insulin Aspart (Novolog Vial Sliding Scale -) 1 vial SQ ACHS [facility]; Protocol Last Admin: 01/13/18 17:47 Dose: 2 units Isosorbide Dinitrate (Isordil -) 40 mg PO TIDISORDIL [facility] Last Admin: 01/13/18 17:53 Dose: 40 mg Ondansetron HCl (Zofran Injection) 4 mg IVPUSH Q6H PRN PRN Reason: NAUSEA AND/OR VOMITING - Objective Vital Signs: Vital Signs Temperature 98.2 F 01/13/18 19:45 Pulse Rate 69 01/13/18 19:45 Respiratory Rate 18 01/13/18 19:45 Blood Pressure 102/43 01/13/18 19:45 O2 Sat by Pulse Oximetry (%) 98 01/13/18 02:28 Constitutional: Yes: No Distress, Calm Eyes: Yes: Conjunctiva Clear, EOM Intact HENT: Yes: Atraumatic, Normocephalic Neck: Yes: Trachea Midline Cardiovascular: Yes: Regular Rate and Rhythm, S1, S2 Respiratory: Yes: Regular, CTA Bilaterally Gastrointestinal: Yes: Normal Bowel Sounds, Soft, Abdomen, Obese. No: Ascites, Hepatomegaly, Splenomegaly ...Rectal Exam: Yes: Deferred Genitourinary: Yes: Urethral Discharge Musculoskeletal: Yes: WNL Extremities: No: Calf Tenderness Edema: No Peripheral Pulses WNL: Yes Neurological: Yes: Alert, Oriented Psychiatric: Yes: Alert, Oriented Labs: CBC, BMP 01/13/18 09:00 01/13/18 09:00 INR, PTT INR 1.20 (0.83-1.09) H 01/12/18 09:05 - ....Imaging X-ray: Other (post drainage: cardiomegaly, septation of the right lung base) Problem List - Problems (1) CHF (congestive heart failure) Assessment/Plan: monitor fluid status, add lasix if no orthostatism Code(s): I50.9 - HEART FAILURE, UNSPECIFIED Qualifiers: (2) Pleural effusion Assessment/Plan: possibly infected continue IV Ceftriaxone and Zithromax 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, MRSA nares was performed and results are pending with Pleurx catheter present right hemithorax s/p Ateplase Code(s): J90 - PLEURAL EFFUSION, NOT ELSEWHERE CLASSIFIED (3) Diabetes mellitus Assessment/Plan: monitor BGM and correct with regular insulin off Glipizide Code(s): E11.9 - TYPE 2 DIABETES MELLITUS WITHOUT COMPLICATIONS (4) Lung nodule Assessment/Plan: unclear etiology Code(s): R91.1 - SOLITARY PULMONARY NODULE (5) CKD (chronic kidney disease) Assessment/Plan: will restart LAsix if no orthostatism Code(s): N18.9 - CHRONIC KIDNEY DISEASE, UNSPECIFIED
--- NOTE | 2018-01-13 21:22 | HOSP ---
Physical Examination Vital Signs: Vital Signs Temperature 98.2 F 01/13/18 19:45 Pulse Rate 69 01/13/18 19:45 Respiratory Rate 18 01/13/18 19:45 Blood Pressure 102/43 01/13/18 19:45 O2 Sat by Pulse Oximetry (%) 98 01/13/18 02:28 Labs: CBC, BMP 01/13/18 09:00 01/13/18 09:00 Hospitalist Encounter Assessment: Called to examine pt s/p unwitnessed fall. Pt states he did not sustain any injuries during the fall and denied any head trauma Exam performed No acute distress No focal neurological deficits RRR Lungs noted with crackles No point tenderness anywhere, no decreased ROM Discussed need for head CT following unwitnessed fall, Pt denied any trauma from fall and refuses head CT. Neuro checks Q2 per protocol. Visit type - Emergency Visit Emergency Visit: Yes ED Registration Date: 01/12/18 Care time: The patient presented to the Emergency Department on the above date and was hospitalized for further evaluation of their emergent condition. - New Patient This patient is new to me today: Yes Date on this admission: 01/13/18 - Critical Care Critical Care patient: No
[2018-01-13] MEDS: ATORVASTATIN CA 80 MG TABLET (FP) PO SCH (21:37)
[2018-01-13] MEDS ORDERED: INSULIN SLIDING SCALE (NOVOLOG) 1 VIAL SQ SCH (22:00)
[2018-01-14] MEDS: ISOSORBIDE DINITRATE 20 MG TABLET (FP) PO SCH ×3 (08:13→18:31)
[2018-01-14 08:46] LABS: BASO % 0.5 % (0-2.0); EOS % 2.6 % (0-4.5); HEMATOCRIT 33.5 % (35.4-49); HEMOGLOBIN 11.4 GM/dL (11.7-16.9); LYMPH % 11.4 % (8-40); MCH 30.8 pg (25.7-33.7); MCHC 33.8 g/dl (32.0-35.9); MEAN PLT VOLUME 8.6 fl (7.5-11.1); MONO % 9.4 % (3.8-10.2); NEUT % 76.1 % (42.8-82.8); PLATELET COUNT 198 K/MM3 (134-434); RBC 3.68 M/mm3 (4.00-5.60); RDW 15.1 % (11.9-15.9); WHITE BLOOD COUNT 5.5 K/mm3 (4.0-10.0)
[2018-01-14] MEDS ORDERED: cefTRIAXone SODIUM 1 GM VIAL ONE (10:21)
[2018-01-14] MEDS ORDERED: PT OWN MED DRAWER 7, Y5N ONE ×3 (10:21→18:27)
[2018-01-14] MEDS ORDERED: DEXTROSE 5%-WATER - 50 ML IVPB ONE (10:22)
[2018-01-14] MEDS: CARVEDILOL 25 MG TABLET (FP) PO SCH ×2 (10:24→21:55)
[2018-01-14] MEDS: CEFTRIAXONE 1 GM in DEXTROSE 5%-WATER - 50 ML IVPB SCH (10:25)
[2018-01-14] MEDS: ASPIRIN 81 MG CHEWABLE TABLETS PO SCH (10:25)
[2018-01-14] MEDS: GABAPENTIN 300 MG CAPSULE (FP) PO SCH ×2 (10:25→21:55)
[2018-01-14] MEDS: ALLOPURINOL 100 MG TABLET (FP) PO SCH (10:26)
[2018-01-14] MEDS: CHOLECALCIFEROL (VITAMIN D3) 1,000 UNIT TABLET (FP) PO SCH (10:26)
[2018-01-14] MEDS: CLOPIDOGREL BISULFATE 75 MG TABLET (FP) PO SCH (10:26)
[2018-01-14] MEDS: DOCUSATE SODIUM 100 MG CAPSULE (FP) PO SCH (10:26)
[2018-01-14] MEDS: AZITHROMYCIN IVPB 500 MG in DEXTROSE 5%-WATER - 250 ML IVPB SCH (10:59)
--- NOTE | 2018-01-14 14:19 | PN ---
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, Physician History of Present Illness: pulmonary alert,comfortable,-sob,-cp - Current Medication List Current Medications: Active Medications Acetaminophen (Tylenol -) 650 mg PO Q6H PRN PRN Reason: FEVER/PAIN LEVEL 1-5 Allopurinol (Zyloprim -) 100 mg PO DAILY [facility] Last Admin: 01/14/18 10:26 Dose: 100 mg Aspirin (Asa -) 81 mg PO DAILY [facility] Last Admin: 01/14/18 10:25 Dose: 81 mg Atorvastatin Calcium (Lipitor -) 80 mg PO HS [facility] Last Admin: 01/13/18 21:37 Dose: 80 mg Carvedilol (Coreg -) 25 mg PO BID [facility] Last Admin: 01/14/18 10:24 Dose: Not Given Cholecalciferol (Vitamin D3 -) 1,000 unit PO DAILY [facility] Last Admin: 01/14/18 10:26 Dose: 1,000 unit Clopidogrel Bisulfate (Plavix -) 75 mg PO DAILY [facility] Last Admin: 01/14/18 10:26 Dose: 75 mg Docusate Sodium (Colace -) 300 mg PO DAILY [facility] Last Admin: 01/14/18 10:26 Dose: 300 mg Gabapentin (Neurontin -) 600 mg PO BID [facility] Last Admin: 01/14/18 10:25 Dose: 600 mg Guaifenesin (Diabetic Tussin Dm -) 10 ml PO Q6H PRN PRN Reason: COUGH Azithromycin 500 mg/ Dextrose 250 mls @ 250 mls/hr IVPB DAILY [facility] Last Admin: 01/14/18 10:59 Dose: 250 mls/hr Ceftriaxone Sodium 1 gm/ (Dextrose) 50 mls @ 100 mls/hr IVPB DAILY [facility] Last Admin: 01/14/18 10:25 Dose: 100 mls/hr Isosorbide Dinitrate (Isordil -) 20 mg PO TIDISORDIL [facility] Last Admin: 01/14/18 13:24 Dose: Not Given Ondansetron HCl (Zofran Injection) 4 mg IVPUSH Q6H PRN PRN Reason: NAUSEA AND/OR VOMITING - Objective Vital Signs: Vital Signs Temperature 98.5 F 01/14/18 12:52 Pulse Rate 65 01/14/18 12:52 Respiratory Rate 20 01/14/18 12:52 Blood Pressure 100/52 01/14/18 12:52 O2 Sat by Pulse Oximetry (%) 98 01/13/18 02:28 Constitutional: Yes: Well Nourished, Calm Eyes: Yes: WNL HENT: Yes: WNL Neck: Yes: WNL Cardiovascular: Yes: Regular Rate and Rhythm, S1, S2 Respiratory: Yes: Rales (few crakes r base) Gastrointestinal: Yes: Normal Bowel Sounds, Soft Extremities: Yes: WNL Edema: No Labs: CBC, BMP 01/14/18 08:15 01/13/18 09:00 INR, PTT INR 1.20 (0.83-1.09) H 01/12/18 09:05 Problem List - Problems (1) CHF (congestive heart failure) Code(s): I50.9 - HEART FAILURE, UNSPECIFIED Qualifiers: (2) Pneumonia Code(s): J18.9 - PNEUMONIA, UNSPECIFIED ORGANISM (3) Hzaaw-ua-jfmiipp kidney injury Code(s): N17.9 - ACUTE KIDNEY FAILURE, UNSPECIFIED; N18.9 - CHRONIC KIDNEY DISEASE, UNSPECIFIED (4) CKD (chronic kidney disease) Code(s): N18.9 - CHRONIC KIDNEY DISEASE, UNSPECIFIED (5) Chronic left systolic heart failure Code(s): I50.22 - CHRONIC SYSTOLIC (CONGESTIVE) HEART FAILURE (6) Diabetes Code(s): E11.9 - TYPE 2 DIABETES MELLITUS WITHOUT COMPLICATIONS (7) Leg swelling Code(s): M79.89 - OTHER SPECIFIED SOFT TISSUE DISORDERS (8) Pulmonary hypertension Code(s): I27.2 - OTHER SECONDARY PULMONARY HYPERTENSION * DO NOT USE * (9) Shortness of breath Code(s): R06.02 - SHORTNESS OF BREATH (10) CAD (coronary artery disease) Code(s): I25.10 - ATHSCL HEART DISEASE OF [place] CORONARY ARTERY W/O ANG PCTRS Qualifiers: (11) HTN (hypertension) Code(s): I10 - ESSENTIAL (PRIMARY) HYPERTENSION Qualifiers: (12) Hyperlipidemia Code(s): E78.5 - HYPERLIPIDEMIA, UNSPECIFIED Qualifiers: (13) Pleural effusion Code(s): J90 - PLEURAL EFFUSION, NOT ELSEWHERE CLASSIFIED Assessment/Plan IMP RLL PNEUMONIA LOCULATED R PLEURAL EFFUSION NEW S/P TPA CHRONIC R PLEURAL EFFUSION S/P PLEUR-X ASHD S/P MULTIPLE STENTS CHF ACUTE ON CHRONIC KIDNEY DISEASE HTN PLAN IV ABX O2 MONITOR LYTES, RENAL FUNCTION F/U CHEST X-RAY IN AM DR JENSEN Problem List - Problems (1) CHF (congestive heart failure) Code(s): I50.9 - HEART FAILURE, UNSPECIFIED Qualifiers: (2) Pneumonia Code(s): J18.9 - PNEUMONIA, UNSPECIFIED ORGANISM (3) Oruki-mc-imfkejc kidney injury Code(s): N17.9 - ACUTE KIDNEY FAILURE, UNSPECIFIED; N18.9 - CHRONIC KIDNEY DISEASE, UNSPECIFIED (4) CKD (chronic kidney disease) Code(s): N18.9 - CHRONIC KIDNEY DISEASE, UNSPECIFIED (5) Chronic left systolic heart failure Code(s): I50.22 - CHRONIC SYSTOLIC (CONGESTIVE) HEART FAILURE (6) Diabetes Code(s): E11.9 - TYPE 2 DIABETES MELLITUS WITHOUT COMPLICATIONS (7) Leg swelling Code(s): M79.89 - OTHER SPECIFIED SOFT TISSUE DISORDERS (8) Pulmonary hypertension Code(s): I27.2 - OTHER SECONDARY PULMONARY HYPERTENSION * DO NOT USE * (9) Shortness of breath Code(s): R06.02 - SHORTNESS OF BREATH (10) CAD (coronary artery disease) Code(s): I25.10 - ATHSCL HEART DISEASE OF [place] CORONARY ARTERY W/O ANG PCTRS Qualifiers: (11) HTN (hypertension) Code(s): I10 - ESSENTIAL (PRIMARY) HYPERTENSION Qualifiers: (12) Hyperlipidemia Code(s): E78.5 - HYPERLIPIDEMIA, UNSPECIFIED Qualifiers: (13) Pleural effusion Code(s): J90 - PLEURAL EFFUSION, NOT ELSEWHERE CLASSIFIED
--- NOTE | 2018-01-14 14:36 | PN ---
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 (short form) - Note 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: ID consult dictated imp/reccd 72 year old man with recurrent pleural effusion, s/p pleurx for about 6 months , admitted with fevers, pain at catheter site minimal drainage from catheter chest ct noted with increased infiltrate and loculated effusions s/p TPA feels much better drained 900 cc from tube- sent for culture history of MRSA sputum 2017 loculated pleural effusion s/p tpa of pleurx pneumonia- continue rocephin, zithromax f/u pleural fluid cultures check legionella urinary antigen, can d/c zithromax if negative legionella antigen no w afebrile contact isolation for MRSA Problem List - Problems (1) Pneumonia Code(s): J18.9 - PNEUMONIA, UNSPECIFIED ORGANISM (2) Pleural effusion Code(s): J90 - PLEURAL EFFUSION, NOT ELSEWHERE CLASSIFIED (3) MRSA (methicillin resistant Staphylococcus aureus) colonization Code(s): Z22.322 - CARRIER OR SUSPECTED CARRIER OF METHICILLIN RESIS STAPH
--- NOTE | 2018-01-14 18:58 | CONS ---
DATE OF CONSULTATION: 01/14/2018 REQUESTING PROVIDER: Siobhan Mondragon MD This is a 72-year-old man who has a chronic right pleural effusion secondary to CHF, which is being managed with a PleurX for about the last 6 months. He was admitted with fever and pain at the catheter site. He also had minimal drainage from the catheter site. CT scan was done with noted increased infiltrate and loculated effusions in the right lung. He was admitted on the . He was given on the tPA through the catheter site, after which it drained about 900 mL and his pleural pain disappeared. He had some fever he reports at home for several days before he came in. Was febrile on admission to 100.6 and he has now defervesced. He was started on ceftriaxone and Zithromax for possible pneumonia. PAST MEDICAL HISTORY: Notable for a history of atherosclerotic heart disease with stent, congestive heart failure, skin cancer, COPD, chronic right pleural effusion, hypertension, hyperlipidemia, and diabetes. SURGICAL HISTORY: Notable for hernia repair, stents, and the catheter placement. ALLERGIES: ACTOS. MEDICATIONS AT HOME: Include Plavix, allopurinol, Coreg, vitamin D, Neurontin, Isordil, aspirin, atorvastatin, Colace, insulin, and Entresto. SOCIAL HISTORY: He lives at home with his . 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 He is a former smoker. He quit 35 years ago. No history of substance use. REVIEW OF SYSTEMS: Notable for being normally drained every 4 or 5 days of about 900 mL of pleural fluid and this had been dropping off and then he started having a lot of pain on that side. PHYSICAL EXAMINATION: General: Pleasant man, awake, and alert. Vital Signs: Temperature is 97.7, pulse is 66, blood pressure 115/55, respiratory rate is 20. HEENT: He is normocephalic. Eyes are anicteric. Neck: Supple. Lungs: Diminished breath sounds at the right base. The left lung is clear. He has a PleurX device that is wrapped and covered on his right lower chest. Heart: Regular rate and rhythm. Abdomen: Soft, nontender. Extremities: Without edema. LABORATORY: Notable for white count of 5.5, hemoglobin 11.4, platelets of 198. BUN is 59 and creatinine is 1.8. Urinalysis has a white count of 2. Pleural fluid culture is pending. A MRSA screen of his nose is pending. He has been on antibiotics; it is now day 3. IN SUMMARY: This is a 72-year-old man with a loculated pleural effusion status post tPA of the PleurX, pneumonia. I would continue his Rocephin and Zithromax. History of prior MRSA in his sputum from 2017. I would maintain contact isolation and follow up cultures. I would hold off on empiric vancomycin and clinically he appears much improved. Will check a Legionella urinary antigen. Can stop the Zithromax if negative and follow up pleural fluid cultures. Further recommendations to follow. Sara [id number]
[2018-01-14] MEDS: ATORVASTATIN CA 80 MG TABLET (FP) PO SCH (21:54)
--- NOTE | 2018-01-14 22:19 | PN ---
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, Physician Chief Complaint: dyspnea and inability to drain fluid from pleurx catheter. History of Present Illness: 72 yo male with PMH of CHF , DM type 2 and recurrent pleural effusions with a permanent Pleurx catheter was admitted after being unable to drain his catheter. His catheter was treated with Alteplase and approximately 900 cc fluid were drained afterwards.The fluid cultures results are pending. Today he feels better, there was no more fever, and his appetites improved here is no dyspnea or chest pain. Last night the patient fell while in the bathroom. He was standing up next to the toilette and suddenly he felt shaky,. His left lower extremity became very weak and the patient fell, without hitting his head or losing his consciousness. The patient had similar episodes in the past associated with weakness in the left lower extremity which were attributed to lumbar disc disease and radiculitis. - Current Medication List Current Medications: Active Medications Acetaminophen (Tylenol -) 650 mg PO Q6H PRN PRN Reason: FEVER/PAIN LEVEL 1-5 Allopurinol (Zyloprim -) 100 mg PO DAILY [facility] Last Admin: 01/14/18 10:26 Dose: 100 mg Aspirin (Asa -) 81 mg PO DAILY [facility] Last Admin: 01/14/18 10:25 Dose: 81 mg Atorvastatin Calcium (Lipitor -) 80 mg PO HS [facility] Last Admin: 01/14/18 21:54 Dose: 80 mg Carvedilol (Coreg -) 25 mg PO BID [facility] Last Admin: 01/14/18 21:55 Dose: 25 mg Cholecalciferol (Vitamin D3 -) 1,000 unit PO DAILY [facility] Last Admin: 01/14/18 10:26 Dose: 1,000 unit Clopidogrel Bisulfate (Plavix -) 75 mg PO DAILY [facility] Last Admin: 01/14/18 10:26 Dose: 75 mg Docusate Sodium (Colace -) 300 mg PO DAILY [facility] Last Admin: 01/14/18 10:26 Dose: 300 mg Gabapentin (Neurontin -) 600 mg PO BID [facility] Last Admin: 01/14/18 21:55 Dose: 600 mg Guaifenesin (Diabetic Tussin Dm -) 10 ml PO Q6H PRN PRN Reason: COUGH Azithromycin 500 mg/ Dextrose 250 mls @ 250 mls/hr IVPB DAILY [facility] Last Admin: 01/14/18 10:59 Dose: 250 mls/hr Ceftriaxone Sodium 1 gm/ (Dextrose) 50 mls @ 100 mls/hr IVPB DAILY [facility] Last Admin: 01/14/18 10:25 Dose: 100 mls/hr Isosorbide Dinitrate (Isordil -) 20 mg PO TIDISORDIL [facility] Last Admin: 01/14/18 18:31 Dose: 20 mg Ondansetron HCl (Zofran Injection) 4 mg IVPUSH Q6H PRN PRN Reason: NAUSEA AND/OR VOMITING - Objective Vital Signs: Vital Signs Temperature 97.7 F 01/14/18 16:15 Pulse Rate 66 01/14/18 16:15 Respiratory Rate 20 01/14/18 16:15 Blood Pressure 115/55 01/14/18 16:15 O2 Sat by Pulse Oximetry (%) 95 01/14/18 09:00 Constitutional: Yes: No Distress, Calm Eyes: Yes: Conjunctiva Clear, EOM Intact HENT: Yes: Atraumatic, Normocephalic Neck: Yes: Supple, Trachea Midline Cardiovascular: Yes: Regular Rate and Rhythm, S1, S2 Respiratory: Yes: Regular, CTA Bilaterally Gastrointestinal: Yes: Normal Bowel Sounds, Soft, Abdomen, Obese. No: Hepatomegaly, Melena, Splenomegaly Genitourinary: Yes: WNL Musculoskeletal: Yes: WNL, Other (right hemithorax Pleurx catheter present.) Extremities: No: Calf Tenderness Edema: No Peripheral Pulses WNL: Yes Neurological: Yes: Alert, Oriented Psychiatric: Yes: Alert, Oriented Labs: CBC, BMP 01/14/18 08:15 01/13/18 09:00 INR, PTT INR 1.20 (0.83-1.09) H 01/12/18 09:05 Problem List - Problems (1) CHF (congestive heart failure) Assessment/Plan: monitor fluid status, add lasix if no orthostatism Code(s): I50.9 - HEART FAILURE, UNSPECIFIED Qualifiers: Heart failure type: combined systolic and diastolic Heart failure chronicity: chronic Qualified Code(s): I50.42 - 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) heart failure (2) Pleural effusion Assessment/Plan: possibly infected continue IV Ceftriaxone and Zithromax 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, MRSA nares was performed and results are pending with Pleurx catheter present right hemithorax s/p Alteplase Code(s): J90 - PLEURAL EFFUSION, NOT ELSEWHERE CLASSIFIED (3) Diabetes mellitus Assessment/Plan: monitor BGM and correct with regular insulin off Glipizide for now until stable Code(s): E11.9 - TYPE 2 DIABETES MELLITUS WITHOUT COMPLICATIONS (4) Lung nodule Assessment/Plan: unclear etiology will follow up as an outpatient Code(s): R91.1 - SOLITARY PULMONARY NODULE (5) CKD (chronic kidney disease) Assessment/Plan: will restart LAsix if no orthostatism Code(s): N18.9 - CHRONIC KIDNEY DISEASE, UNSPECIFIED (6) Radiculitis of leg Assessment/Plan: left lower extremity Code(s): M54.10 - RADICULOPATHY, SITE UNSPECIFIED (7) Fall Code(s): W19.XXXA - UNSPECIFIED FALL, INITIAL ENCOUNTER (8) Fall during current hospitalization Assessment/Plan: rule out orthostatic hypotension Code(s): W19.XXXA - UNSPECIFIED FALL, INITIAL ENCOUNTER; Y92.239 - UNSP PLACE IN HOSPITAL PLACE
[2018-01-15 08:17] LABS: BASO % 0.4 % (0-2.0); EOS % 1.7 % (0-4.5); HEMATOCRIT 32.3 % (35.4-49); LYMPH % 16.5 % (8-40); MCH 30.8 pg (25.7-33.7); MEAN CELL VOLUME 90.7 fl (80-96); MEAN PLT VOLUME 8.3 fl (7.5-11.1); MONO % 12.6 % (3.8-10.2); NEUT % 68.8 % (42.8-82.8); PLATELET COUNT 173 K/MM3 (134-434); RBC 3.56 M/mm3 (4.00-5.60); RDW 15.1 % (11.9-15.9); WHITE BLOOD COUNT 5.8 K/mm3 (4.0-10.0)
[2018-01-15 08:49] LABS: ALBUMIN 1.6 g/dl (3.4-5.0); ANION GAP 8 (8-16); BLOOD UREA NITROGEN 77 mg/dL (7-18); CALCIUM 7.1 mg/dL (8.5-10.1); CHLORIDE 107 mmol/L (98-107); CO2 24 mmol/L (21-32); CREATININE 2.6 mg/dL (0.7-1.3); GLUCOSE,RANDOM 262 mg/dL (74-106); SGOT/AST 37 U/L (15-37); SGPT/ALT 55 U/L (12-78); SODIUM 139 mmol/L (136-145)
[2018-01-15 08:51] LABS: ALK PHOS 97 U/L (45-117); BILIRUBIN,TOTAL 0.3 mg/dL (0.2-1.0); TOT PROT 4.9 g/dl (6.4-8.2)
--- NOTE | 2018-01-15 09:56 | PN ---
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 (short form) - Note 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: PULMONARY Feels better today. Minimal cough. No fevers or chills. Vital Signs Period Temp Pulse Resp BP Sys/Desai Pulse Ox Last 24 Hr 97.7 F-99.2 F 65-81 20-20 100-115/50-63 Gen: NAD at rest Heart: RRR Lung: decreased breath sounds right base Abd: soft, nontender Ext: no edema CBC, BMP 01/15/18 07:30 01/15/18 07:30 Active Medications Acetaminophen (Tylenol -) 650 mg PO Q6H PRN PRN Reason: FEVER/PAIN LEVEL 1-5 Allopurinol (Zyloprim -) 100 mg PO DAILY [facility] Last Admin: 01/14/18 10:26 Dose: 100 mg Aspirin (Asa -) 81 mg PO DAILY [facility] Last Admin: 01/14/18 10:25 Dose: 81 mg Atorvastatin Calcium (Lipitor -) 80 mg PO HS [facility] Last Admin: 01/14/18 21:54 Dose: 80 mg Carvedilol (Coreg -) 25 mg PO BID [facility] Last Admin: 01/14/18 21:55 Dose: 25 mg Cholecalciferol (Vitamin D3 -) 1,000 unit PO DAILY [facility] Last Admin: 01/14/18 10:26 Dose: 1,000 unit Clopidogrel Bisulfate (Plavix -) 75 mg PO DAILY [facility] Last Admin: 01/14/18 10:26 Dose: 75 mg Docusate Sodium (Colace -) 300 mg PO DAILY [facility] Last Admin: 01/14/18 10:26 Dose: 300 mg Gabapentin (Neurontin -) 600 mg PO BID [facility] Last Admin: 01/14/18 21:55 Dose: 600 mg Guaifenesin (Diabetic Tussin Dm -) 10 ml PO Q6H PRN PRN Reason: COUGH Azithromycin 500 mg/ Dextrose 250 mls @ 250 mls/hr IVPB DAILY [facility] Last Admin: 01/14/18 10:59 Dose: 250 mls/hr Ceftriaxone Sodium 1 gm/ (Dextrose) 50 mls @ 100 mls/hr IVPB DAILY [facility] Last Admin: 01/14/18 10:25 Dose: 100 mls/hr Isosorbide Dinitrate (Isordil -) 20 mg PO TIDISORDIL [facility] Last Admin: 01/14/18 18:31 Dose: 20 mg Ondansetron HCl (Zofran Injection) 4 mg IVPUSH Q6H PRN PRN Reason: NAUSEA AND/OR VOMITING A/P RLL Pneumonia Loculated R Pleural Effusion s/p pleur-x/tPA r/o Empyema CAD Acute on Chronic Renal Failure HTN LV Systolic/Diastolic Dysfunction - continue antibiotics - f/u pleural fluid cultures - O2 to keep SpO2 >90% - continue cardiac meds - DVT prophylaxis
[2018-01-15] MEDS ORDERED: cefTRIAXone SODIUM 1 GM VIAL ONE (10:18)
[2018-01-15] MEDS ORDERED: PT OWN MED DRAWER 7, Y5N ONE ×3 (10:18→17:56)
[2018-01-15] MEDS ORDERED: DEXTROSE 5%-WATER - 50 ML IVPB ONE (10:18)
[2018-01-15] MEDS: CARVEDILOL 25 MG TABLET (FP) PO SCH ×2 (10:24→21:37)
[2018-01-15] MEDS: ISOSORBIDE DINITRATE 20 MG TABLET (FP) PO SCH ×3 (10:24→17:59)
[2018-01-15] MEDS: GABAPENTIN 300 MG CAPSULE (FP) PO SCH ×2 (10:24→21:36)
[2018-01-15] MEDS: CEFTRIAXONE 1 GM in DEXTROSE 5%-WATER - 50 ML IVPB SCH (10:24)
[2018-01-15] MEDS: CLOPIDOGREL BISULFATE 75 MG TABLET (FP) PO SCH (10:24)
[2018-01-15] MEDS: CHOLECALCIFEROL (VITAMIN D3) 1,000 UNIT TABLET (FP) PO SCH (10:24)
[2018-01-15] MEDS: DOCUSATE SODIUM 100 MG CAPSULE (FP) PO SCH (10:24)
[2018-01-15] MEDS: ASPIRIN 81 MG CHEWABLE TABLETS PO SCH (10:24)
[2018-01-15] MEDS: ALLOPURINOL 100 MG TABLET (FP) PO SCH (10:24)
[2018-01-15] MEDS: AZITHROMYCIN IVPB 500 MG in DEXTROSE 5%-WATER - 250 ML IVPB SCH (11:27)
--- NOTE | 2018-01-15 17:29 | PN ---
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, Physician Chief Complaint: low grade fever today whil sudhakar antibiotics for possible pneaumonia, orthostatic by blood pressrue History of Present Illness: 72 yo male with PMH of CHF , DM type 2 and recurrent pleural effusions with a permanent Pleurx catheter was admitted after being unable to drain his catheter. His catheter was treated with Alteplase and approximately 900 cc fluid were drained afterwards.The fluid cultures results are are growing staph. Today the patient had fever, there is no dyspnea or chest pain. He was standing up next to the toilette and suddenly he felt shaky,. His left lower extremity became very weak and the patient fell, without hitting his head or losing his consciousness. - Current Medication List Current Medications: Active Medications Acetaminophen (Tylenol -) 650 mg PO Q6H PRN PRN Reason: FEVER/PAIN LEVEL 1-5 Allopurinol (Zyloprim -) 100 mg PO DAILY [facility] Last Admin: 01/15/18 10:24 Dose: 100 mg Aspirin (Asa -) 81 mg PO DAILY [facility] Last Admin: 01/15/18 10:24 Dose: 81 mg Atorvastatin Calcium (Lipitor -) 80 mg PO HS [facility] Last Admin: 01/14/18 21:54 Dose: 80 mg Carvedilol (Coreg -) 25 mg PO BID [facility] Last Admin: 01/15/18 10:24 Dose: 25 mg Cholecalciferol (Vitamin D3 -) 1,000 unit PO DAILY [facility] Last Admin: 01/15/18 10:24 Dose: 1,000 unit Clopidogrel Bisulfate (Plavix -) 75 mg PO DAILY [facility] Last Admin: 01/15/18 10:24 Dose: 75 mg Docusate Sodium (Colace -) 300 mg PO DAILY [facility] Last Admin: 01/15/18 10:24 Dose: Not Given Gabapentin (Neurontin -) 600 mg PO BID [facility] Last Admin: 01/15/18 10:24 Dose: 600 mg Guaifenesin (Diabetic Tussin Dm -) 10 ml PO Q6H PRN PRN Reason: COUGH Azithromycin 500 mg/ Dextrose 250 mls @ 250 mls/hr IVPB DAILY [facility] Last Admin: 01/15/18 11:27 Dose: 250 mls/hr Ceftriaxone Sodium 1 gm/ (Dextrose) 50 mls @ 100 mls/hr IVPB DAILY [facility] Last Admin: 01/15/18 10:24 Dose: 100 mls/hr Isosorbide Dinitrate (Isordil -) 20 mg PO TIDISORDIL [facility] Last Admin: 01/15/18 14:48 Dose: 20 mg Ondansetron HCl (Zofran Injection) 4 mg IVPUSH Q6H PRN PRN Reason: NAUSEA AND/OR VOMITING - Objective Vital Signs: Vital Signs Temperature 98 F 01/15/18 16:30 Pulse Rate 67 01/15/18 16:30 Respiratory Rate 20 01/15/18 16:30 Blood Pressure 117/56 01/15/18 16:30 O2 Sat by Pulse Oximetry (%) 95 01/15/18 09:00 Labs: CBC, BMP 01/15/18 07:30 01/15/18 07:30 INR, PTT INR 1.20 (0.83-1.09) H 01/12/18 09:05 Problem List - Problems (1) CHF (congestive heart failure) Code(s): I50.9 - HEART FAILURE, UNSPECIFIED Qualifiers: Heart failure type: combined systolic and diastolic Heart failure chronicity: chronic Qualified Code(s): I50.42 - 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) heart failure (2) Pleural effusion Code(s): J90 - PLEURAL EFFUSION, NOT ELSEWHERE CLASSIFIED (3) Diabetes mellitus Code(s): E11.9 - TYPE 2 DIABETES MELLITUS WITHOUT COMPLICATIONS (4) Lung nodule Code(s): R91.1 - SOLITARY PULMONARY NODULE (5) CKD (chronic kidney disease) Code(s): N18.9 - CHRONIC KIDNEY DISEASE, UNSPECIFIED (6) Radiculitis of leg Code(s): M54.10 - RADICULOPATHY, SITE UNSPECIFIED (7) Fall Code(s): W19.XXXA - UNSPECIFIED FALL, INITIAL ENCOUNTER (8) Fall during current hospitalization Code(s): W19.XXXA - UNSPECIFIED FALL, INITIAL ENCOUNTER; Y92.239 - UNSP PLACE IN HOSPITAL PLACE
[2018-01-15] MEDS ORDERED: SODIUM CHLORIDE 0.45% 1,000 ML IV SCH (17:45)
[2018-01-15] MEDS: ATORVASTATIN CA 80 MG TABLET (FP) PO SCH (21:36)
[2018-01-15] MEDS: ACETAMINOPHEN 325 MG TABLET (FP) PO PRN (21:42)
[2018-01-16 08:10] LABS: BASO % 0.4 % (0-2.0); EOS % 1.8 % (0-4.5); HEMATOCRIT 29.9 % (35.4-49); HEMOGLOBIN 10.1 GM/dL (11.7-16.9); LYMPH % 13.6 % (8-40); MCH 30.8 pg (25.7-33.7); MCHC 33.9 g/dl (32.0-35.9); MEAN PLT VOLUME 8.5 fl (7.5-11.1); MONO % 11.1 % (3.8-10.2); NEUT % 73.1 % (42.8-82.8); PLATELET COUNT 167 K/MM3 (134-434); RBC 3.28 M/mm3 (4.00-5.60); RDW 14.9 % (11.9-15.9); WHITE BLOOD COUNT 6.2 K/mm3 (4.0-10.0)
[2018-01-16 08:31] LABS: CHLORIDE 105 mmol/L (98-107); SODIUM 138 mmol/L (136-145)
[2018-01-16 08:47] LABS: ALBUMIN 1.4 g/dl (3.4-5.0); ALK PHOS 102 U/L (45-117); ANION GAP 9 (8-16); BILIRUBIN,TOTAL 0.3 mg/dL (0.2-1.0); BLOOD UREA NITROGEN 79 mg/dL (7-18); CALCIUM 7.3 mg/dL (8.5-10.1); CO2 24 mmol/L (21-32); CREATININE 2.6 mg/dL (0.7-1.3); GLUCOSE,RANDOM 239 mg/dL (74-106); SGOT/AST 53 U/L (15-37); SGPT/ALT 84 U/L (12-78); TOT PROT 4.6 g/dl (6.4-8.2)
[2018-01-16] MEDS ORDERED: PT OWN MED DRAWER 7, Y5N ONE ×5 (09:10→17:49)
[2018-01-16] MEDS ORDERED: cefTRIAXone SODIUM 1 GM VIAL ONE (09:10)
[2018-01-16] MEDS ORDERED: DEXTROSE 5%-WATER - 50 ML IVPB ONE (09:10)
--- NOTE | 2018-01-16 09:21 | PN ---
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 (short form) - Note 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: PULMONARY VSS/AFEBRILE FRUSTRATED THAT HE CAN NOT GET OUT OF BED DUE TO RECENT FALL. ANICTERIC DIMINISHED BREATH SOUNDSON RIGHT/PLEUREX IN [place]ACE S1S2 BS+ NO EDEMA LABS/MEDS/MICRO/NOTES/IMAGES REVIEWED IMP RLL PNEUMONIA STAPH IN PLEURAL FLUID LOCULATED R PLEURAL EFFUSION S/P TPA CHRONIC R PLEURAL EFFUSION S/P PLEUR-X ASHD S/P MULTIPLE STENTS CHF ACUTE ON CHRONIC KIDNEY DISEASE HTN PLAN IV ABX O2 MONITOR LYTES, RENAL FUNCTION F/U CHEST X-RAY CONTINUE CURRENT TREATMENT R JOS ANDESRON
[2018-01-16] MEDS: CARVEDILOL 25 MG TABLET (FP) PO SCH ×2 (09:30→21:25)
[2018-01-16] MEDS: ALLOPURINOL 100 MG TABLET (FP) PO SCH (09:30)
[2018-01-16] MEDS: CHOLECALCIFEROL (VITAMIN D3) 1,000 UNIT TABLET (FP) PO SCH (09:30)
[2018-01-16] MEDS: DOCUSATE SODIUM 100 MG CAPSULE (FP) PO SCH (09:30)
[2018-01-16] MEDS: CEFTRIAXONE 1 GM in DEXTROSE 5%-WATER - 50 ML IVPB SCH (09:30)
[2018-01-16] MEDS: CLOPIDOGREL BISULFATE 75 MG TABLET (FP) PO SCH (09:31)
[2018-01-16] MEDS: ASPIRIN 81 MG CHEWABLE TABLETS PO SCH (09:31)
[2018-01-16] MEDS: ISOSORBIDE DINITRATE 20 MG TABLET (FP) PO SCH ×3 (09:31→17:56)
[2018-01-16] MEDS: GABAPENTIN 300 MG CAPSULE (FP) PO SCH ×2 (09:31→21:24)
[2018-01-16] MEDS: AZITHROMYCIN IVPB 500 MG in DEXTROSE 5%-WATER - 250 ML IVPB SCH (10:15)
--- NOTE | 2018-01-16 11:32 | PN ---
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 (short form) - Note 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: febrile overnight Vital Signs Period Temp Pulse Resp BP Sys/Desai Pulse Ox Last 24 Hr 97.7 F-101.2 F 66-89 18-20 117-135/56-65 95-96 cor-rrr lungs decreased bs left lung abd soft,nt ext no edema CBC, BMP 01/16/18 07:30 01/16/18 07:30 Microbiology 01/13/18 14:00 Pleural Fluid Gram Stain - Final 01/13/18 14:00 Pleural Fluid Body Fluid Culture - Preliminary Staphylococcus Coagulase Neg Pending Organism#2 Pending Organism 01/13/18 14:00 Pleural Fluid Anaerobic Culture - Final NO ANAEROBES WERE ISOLATED 01/13/18 15:00 Nares - Mrsa Screen - Left MRSA Screen - Final S Aureus 01/13/18 15:00 Nares - Mrsa Screen - Right MRSA Screen - Final S Aureus Current Medications Acetaminophen (Tylenol -) 650 mg PO Q6H PRN PRN Reason: FEVER/PAIN LEVEL 1-5 Last Admin: 01/15/18 21:42 Dose: 650 mg Allopurinol (Zyloprim -) 100 mg PO DAILY [facility] Last Admin: 01/16/18 09:30 Dose: 100 mg Aspirin (Asa -) 81 mg PO DAILY [facility] Last Admin: 01/16/18 09:31 Dose: 81 mg Atorvastatin Calcium (Lipitor -) 80 mg PO HS [facility] Last Admin: 01/15/18 21:36 Dose: 80 mg Carvedilol (Coreg -) 25 mg PO BID [facility] Last Admin: 01/16/18 09:30 Dose: 25 mg Cholecalciferol (Vitamin D3 -) 1,000 unit PO DAILY [facility] Last Admin: 01/16/18 09:30 Dose: 1,000 unit Clopidogrel Bisulfate (Plavix -) 75 mg PO DAILY [facility] Last Admin: 01/16/18 09:31 Dose: 75 mg Docusate Sodium (Colace -) 300 mg PO DAILY [facility] Last Admin: 01/16/18 09:30 Dose: Not Given Gabapentin (Neurontin -) 600 mg PO BID [facility] Last Admin: 01/16/18 09:31 Dose: 600 mg Guaifenesin (Diabetic Tussin Dm -) 10 ml PO Q6H PRN PRN Reason: COUGH Azithromycin 500 mg/ Dextrose 250 mls @ 250 mls/hr IVPB DAILY [facility] Last Admin: 08/17/18 10:15 Dose: 250 mls/hr Ceftriaxone Sodium 1 gm/ (Dextrose) 50 mls @ 100 mls/hr IVPB DAILY [facility] Last Admin: 01/16/18 09:30 Dose: 100 mls/hr Sodium Chloride (1/2 Normal Saline) 1,000 mls @ 50 mls/hr IV ASDIR [facility] Stop: 01/16/18 17:44 Last Admin: 01/15/18 17:59 Dose: 50 mls/hr Isosorbide Dinitrate (Isordil -) 20 mg PO TIDISORDIL [facility] Last Admin: 01/16/18 09:31 Dose: 20 mg Ondansetron HCl (Zofran Injection) 4 mg IVPUSH Q6H PRN PRN Reason: NAUSEA AND/OR VOMITING imp/reccd 72 year old man with recurrent pleural effusion, s/p pleurx for about 6 months , admitted with fevers, pain at catheter site minimal drainage from catheter chest ct noted with increased infiltrate and loculated effusions s/p TPA +pleural fluid culture- ?empyema add vancomycin one dose repeat cxray worsening renal function Problem List - Problems (1) Pneumonia Code(s): J18.9 - PNEUMONIA, UNSPECIFIED ORGANISM (2) Pleural effusion Code(s): J90 - PLEURAL EFFUSION, NOT ELSEWHERE CLASSIFIED (3) MRSA (methicillin resistant Staphylococcus aureus) colonization Code(s): Z22.322 - CARRIER OR SUSPECTED CARRIER OF METHICILLIN RESIS STAPH
[2018-01-16] MEDS ORDERED: VANCOMYCIN 1 GM PREMIX - 1 GM/200 ML BAG IVPB ONE (12:00)
[2018-01-16] MEDS ORDERED: VANCOMYCIN 1,000 MG in DEXTROSE 5%-WATER - 250 ML IVPB ONE (12:00)
--- NOTE | 2018-01-16 20:32 | PN ---
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, Physician Chief Complaint: PAtient admitted for inability to drain right pleural effusion via the indwelling PeurX catheter developed lowe grade fever. His Fluid cultures grew Staphyloccocus and the sensitivity is still pending. He received empiric antibiotic treatment while the final cultures results are pending. Today the patient had no fever, he is not dyspneic and started to develop dry cough. History of Present Illness: 72 yo male with PMH of CHF , DM type 2 and recurrent pleural effusions with a permanent Pleurx catheter was admitted after being unable to drain his catheter. His catheter was treated with Alteplase and approximately 900 cc fluid were drained afterwards.The fluid cultures results are are growing staph. - Current Medication List Current Medications: Active Medications Acetaminophen (Tylenol -) 650 mg PO Q6H PRN PRN Reason: FEVER/PAIN LEVEL 1-5 Last Admin: 01/15/18 21:42 Dose: 650 mg Allopurinol (Zyloprim -) 100 mg PO DAILY [facility] Last Admin: 01/16/18 09:30 Dose: 100 mg Aspirin (Asa -) 81 mg PO DAILY [facility] Last Admin: 01/16/18 09:31 Dose: 81 mg Atorvastatin Calcium (Lipitor -) 80 mg PO HS [facility] Last Admin: 01/15/18 21:36 Dose: 80 mg Carvedilol (Coreg -) 25 mg PO BID [facility] Last Admin: 01/16/18 09:30 Dose: 25 mg Cholecalciferol (Vitamin D3 -) 1,000 unit PO DAILY [facility] Last Admin: 01/16/18 09:30 Dose: 1,000 unit Clopidogrel Bisulfate (Plavix -) 75 mg PO DAILY [facility] Last Admin: 01/16/18 09:31 Dose: 75 mg Docusate Sodium (Colace -) 300 mg PO DAILY [facility] Last Admin: 01/16/18 09:30 Dose: Not Given Gabapentin (Neurontin -) 600 mg PO BID [facility] Last Admin: 01/16/18 09:31 Dose: 600 mg Guaifenesin (Diabetic Tussin Dm -) 10 ml PO Q6H PRN PRN Reason: COUGH Ceftriaxone Sodium 1 gm/ (Dextrose) 50 mls @ 100 mls/hr IVPB DAILY [facility] Last Admin: 01/16/18 09:30 Dose: 100 mls/hr Isosorbide Dinitrate (Isordil -) 20 mg PO TIDISORDIL [facility] Last Admin: 08/17/18 17:56 Dose: 20 mg Ondansetron HCl (Zofran Injection) 4 mg IVPUSH Q6H PRN PRN Reason: NAUSEA AND/OR VOMITING - Objective Vital Signs: Vital Signs Temperature 97.7 F 01/16/18 16:30 Pulse Rate 70 01/16/18 16:30 Respiratory Rate 18 01/16/18 16:30 Blood Pressure 112/52 01/16/18 16:30 O2 Sat by Pulse Oximetry (%) 96 01/16/18 09:00 Constitutional: Yes: No Distress, Calm Eyes: Yes: Conjunctiva Clear, EOM Intact HENT: Yes: Atraumatic, Normocephalic Neck: Yes: Supple, Trachea Midline Cardiovascular: Yes: Regular Rate and Rhythm, S1, S2 Respiratory: Yes: Other (decreased air entry at the right base) Gastrointestinal: Yes: Normal Bowel Sounds, Soft, Abdomen, Obese. No: Hepatomegaly, Splenomegaly Extremities: No: Calf Tenderness Edema: No Peripheral Pulses WNL: Yes Neurological: Yes: Alert, Oriented Psychiatric: Yes: Alert, Oriented Labs: CBC, BMP 01/16/18 07:30 01/16/18 07:30 INR, PTT INR 1.20 (0.83-1.09) H 01/12/18 09:05 Problem List - Problems (1) CHF (congestive heart failure) Assessment/Plan: monitor fluid status, check for orthostatism Code(s): I50.9 - HEART FAILURE, UNSPECIFIED Qualifiers: Heart failure type: combined systolic and diastolic Heart failure chronicity: chronic Qualified Code(s): I50.42 - 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) heart failure (2) Pleural effusion Assessment/Plan: infected continue IV Ceftriaxone and Zithromax 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 right hemithorax s/p Alteplase Code(s): J90 - PLEURAL EFFUSION, NOT ELSEWHERE CLASSIFIED (3) Diabetes mellitus Assessment/Plan: monitor BGM and correct with regular insulin off Glipizide for now until stable Code(s): E11.9 - TYPE 2 DIABETES MELLITUS WITHOUT COMPLICATIONS (4) Lung nodule Assessment/Plan: unclear etiology will follow up as an outpatient Code(s): R91.1 - SOLITARY PULMONARY NODULE (5) CKD (chronic kidney disease) Assessment/Plan: will restart LAsix if no orthostatism Code(s): N18.9 - CHRONIC KIDNEY DISEASE, UNSPECIFIED (6) Radiculitis of leg Assessment/Plan: left lower extremity radiculitis Code(s): M54.10 - RADICULOPATHY, SITE UNSPECIFIED (7) Fall Code(s): W19.XXXA - UNSPECIFIED FALL, INITIAL ENCOUNTER (8) Fall during current hospitalization Assessment/Plan: the patient has orthostatic hypotension received 1/2 NS iv fluid Code(s): W19.XXXA - UNSPECIFIED FALL, INITIAL ENCOUNTER; Y92.239 - UNSP PLACE IN HOSPITAL PLACE (9) Orthostatic hypotension Assessment/Plan: 1/2 NS completed repeat CMp in am Code(s): I95.1 - ORTHOSTATIC HYPOTENSION
[2018-01-16] MEDS: ATORVASTATIN CA 80 MG TABLET (FP) PO SCH (21:24)
[2018-01-16] MEDS: ACETAMINOPHEN 325 MG TABLET (FP) PO PRN (21:26)
[2018-01-17] MEDS: ISOSORBIDE DINITRATE 20 MG TABLET (FP) PO SCH ×3 (08:40→17:19)
[2018-01-17] MEDS ORDERED: cefTRIAXone SODIUM 1 GM VIAL ONE (08:51)
[2018-01-17] MEDS ORDERED: DEXTROSE 5%-WATER - 50 ML IVPB ONE (08:51)
[2018-01-17] MEDS: CEFTRIAXONE 1 GM in DEXTROSE 5%-WATER - 50 ML IVPB SCH (09:09)
[2018-01-17] MEDS: DOCUSATE SODIUM 100 MG CAPSULE (FP) PO SCH (09:11)
[2018-01-17] MEDS: CARVEDILOL 25 MG TABLET (FP) PO SCH ×2 (09:11→22:57)
[2018-01-17] MEDS: CLOPIDOGREL BISULFATE 75 MG TABLET (FP) PO SCH (09:11)
[2018-01-17] MEDS: ALLOPURINOL 100 MG TABLET (FP) PO SCH (09:11)
[2018-01-17] MEDS: GABAPENTIN 300 MG CAPSULE (FP) PO SCH ×2 (09:11→22:57)
[2018-01-17] MEDS: CHOLECALCIFEROL (VITAMIN D3) 1,000 UNIT TABLET (FP) PO SCH (09:11)
[2018-01-17] MEDS: ASPIRIN 81 MG CHEWABLE TABLETS PO SCH (09:11)
[2018-01-17 10:18] LABS: ALBUMIN 1.7 g/dl (3.4-5.0); ALK PHOS 135 U/L (45-117); ANION GAP 9 (8-16); BILIRUBIN,TOTAL 0.5 mg/dL (0.2-1.0); BLOOD UREA NITROGEN 78 mg/dL (7-18); CALCIUM 7.7 mg/dL (8.5-10.1); CHLORIDE 104 mmol/L (98-107); CO2 22 mmol/L (21-32); CREATININE 2.4 mg/dL (0.7-1.3); GLUCOSE,RANDOM 241 mg/dL (74-106); POTASSIUM 5.4 mmol/L (3.5-5.1); SGOT/AST 63 U/L (15-37); SGPT/ALT 110 U/L (12-78); SODIUM 135 mmol/L (136-145); TOT PROT 5.7 g/dl (6.4-8.2)
--- NOTE | 2018-01-17 11:30 | PN ---
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 (short form) - Note 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: PULMONARY VSS/AFEBRILE FRUSTRATED THAT HE CAN NOT GET OUT OF BED DUE TO RECENT FALL. CXR ENLARGING RIGHT EFFUSION ANICTERIC DIMINISHED BREATH SOUNDS ON RIGHT/PLEUREX IN PLACE S1S2 BS+ NO EDEMA LABS/MEDS/MICRO/NOTES/IMAGES REVIEWED IMP RLL PNEUMONIA STAPH IN PLEURAL FLUID LOCULATED R PLEURAL EFFUSION S/P TPA CHRONIC R PLEURAL EFFUSION S/P PLEUR-X ASHD S/P MULTIPLE STENTS CHF ACUTE ON CHRONIC KIDNEY DISEASE HTN PLAN IV ABX/NEEDS DRAINAGE TODAY O2 MONITOR LYTES, RENAL FUNCTION F/U CHEST X-RAY CONTINUE CURRENT TREATMENT Yusuf ARGUELLO MD
--- NOTE | 2018-01-17 14:07 | PN ---
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, Physician History of Present Illness: Awake, alert Supine in bed No c/o chest pain/ dyspnea + low grade fever WBC WNL - Current Medication List Current Medications: Active Medications Acetaminophen (Tylenol -) 650 mg PO Q6H PRN PRN Reason: FEVER/PAIN LEVEL 1-5 Last Admin: 01/16/18 21:26 Dose: 650 mg Allopurinol (Zyloprim -) 100 mg PO DAILY [facility] Last Admin: 01/17/18 09:11 Dose: 100 mg Aspirin (Asa -) 81 mg PO DAILY [facility] Last Admin: 01/17/18 09:11 Dose: 81 mg Atorvastatin Calcium (Lipitor -) 80 mg PO HS [facility] Last Admin: 01/16/18 21:24 Dose: 80 mg Carvedilol (Coreg -) 25 mg PO BID [facility] Last Admin: 01/17/18 09:11 Dose: 25 mg Cholecalciferol (Vitamin D3 -) 1,000 unit PO DAILY [facility] Last Admin: 01/17/18 09:11 Dose: 1,000 unit Clopidogrel Bisulfate (Plavix -) 75 mg PO DAILY [facility] Last Admin: 01/17/18 09:11 Dose: 75 mg Docusate Sodium (Colace -) 300 mg PO DAILY [facility] Last Admin: 01/17/18 09:11 Dose: 300 mg Gabapentin (Neurontin -) 600 mg PO BID [facility] Last Admin: 01/17/18 09:11 Dose: 600 mg Guaifenesin (Diabetic Tussin Dm -) 10 ml PO Q6H PRN PRN Reason: COUGH Ceftriaxone Sodium 1 gm/ (Dextrose) 50 mls @ 100 mls/hr IVPB DAILY [facility] Last Admin: 01/17/18 09:09 Dose: 100 mls/hr Isosorbide Dinitrate (Isordil -) 20 mg PO TIDISORDIL [facility] Last Admin: 01/17/18 13:02 Dose: 20 mg Ondansetron HCl (Zofran Injection) 4 mg IVPUSH Q6H PRN PRN Reason: NAUSEA AND/OR VOMITING - Objective Vital Signs: Vital Signs Temperature 98.4 F 01/17/18 10:00 Pulse Rate 82 01/17/18 10:00 Respiratory Rate 18 01/17/18 10:00 Blood Pressure 142/62 01/17/18 10:00 O2 Sat by Pulse Oximetry (%) 95 01/16/18 21:00 Constitutional: Yes: No Distress Eyes: Yes: Conjunctiva Clear Cardiovascular: Yes: Regular Rate and Rhythm, S1, S2 Respiratory: Yes: Other (decreased BS R lower lung field) Gastrointestinal: Yes: Normal Bowel Sounds, Soft. No: Tenderness Edema: LLE: 1+, RLE: 1+ Labs: CBC, BMP 01/16/18 07:30 01/17/18 09:15 INR, PTT INR 1.20 (0.83-1.09) H 01/12/18 09:05 Assessment/Plan Recurrent pleural effusion S/P Pleurx RLL infiltrate Renal failure Continue ceftriaxone Redose vancomycin
[2018-01-17] MEDS ORDERED: VANCOMYCIN 1 GM PREMIX - 1 GM/200 ML BAG IVPB ONE (15:00)
[2018-01-17] MEDS ORDERED: INSULIN (NOVOLOG) ASPART 100 UNITS/ML 10ML VIAL SQ ONE (19:30)
--- NOTE | 2018-01-17 20:55 | PN ---
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, Physician Chief Complaint: The patient is more dyspneic and had low grade fever last night and associated dry cough History of Present Illness: 72 yo male with PMH of CHF , DM type 2 and recurrent pleural effusions with a permanent Pleurx catheter was admitted after being unable to drain his catheter. His catheter was treated with Alteplase and 900 cc fluid were obtained.The fluid culture results are positive for staph. - Current Medication List Current Medications: Active Medications Acetaminophen (Tylenol -) 650 mg PO Q6H PRN PRN Reason: FEVER/PAIN LEVEL 1-5 Last Admin: 01/16/18 21:26 Dose: 650 mg Allopurinol (Zyloprim -) 100 mg PO DAILY [facility] Last Admin: 01/17/18 09:11 Dose: 100 mg Aspirin (Asa -) 81 mg PO DAILY [facility] Last Admin: 01/17/18 09:11 Dose: 81 mg Atorvastatin Calcium (Lipitor -) 80 mg PO HS [facility] Last Admin: 01/16/18 21:24 Dose: 80 mg Carvedilol (Coreg -) 25 mg PO BID [facility] Last Admin: 01/17/18 09:11 Dose: 25 mg Cholecalciferol (Vitamin D3 -) 1,000 unit PO DAILY [facility] Last Admin: 01/17/18 09:11 Dose: 1,000 unit Clopidogrel Bisulfate (Plavix -) 75 mg PO DAILY [facility] Last Admin: 01/17/18 09:11 Dose: 75 mg Docusate Sodium (Colace -) 300 mg PO DAILY [facility] Last Admin: 01/17/18 09:11 Dose: 300 mg Gabapentin (Neurontin -) 600 mg PO BID [facility] Last Admin: 01/17/18 09:11 Dose: 600 mg Guaifenesin (Diabetic Tussin Dm -) 10 ml PO Q6H PRN PRN Reason: COUGH Ceftriaxone Sodium 1 gm/ (Dextrose) 50 mls @ 100 mls/hr IVPB DAILY [facility] Last Admin: 01/17/18 09:09 Dose: 100 mls/hr Insulin Aspart (Novolog Vial Sliding Scale -) vial SQ ACHS [facility]; Protocol Isosorbide Dinitrate (Isordil -) 20 mg PO TIDISORDIL [facility] Last Admin: 01/17/18 17:19 Dose: 20 mg Ondansetron HCl (Zofran Injection) 4 mg IVPUSH Q6H PRN PRN Reason: NAUSEA AND/OR VOMITING - Objective Vital Signs: Vital Signs Temperature 98.7 F 01/17/18 17:15 Pulse Rate 77 01/17/18 17:15 Respiratory Rate 20 01/17/18 17:15 Blood Pressure 111/52 01/17/18 17:15 O2 Sat by Pulse Oximetry (%) 97 01/17/18 09:00 Constitutional: Yes: No Distress, Calm Eyes: Yes: Conjunctiva Clear, EOM Intact HENT: Yes: Atraumatic, Normocephalic Neck: Yes: Supple, Trachea Midline Cardiovascular: Yes: Regular Rate and Rhythm, S1, S2 Respiratory: Yes: Regular, CTA Bilaterally Gastrointestinal: Yes: Normal Bowel Sounds, Soft. No: Hepatomegaly, Splenomegaly Extremities: No: Calf Tenderness Edema: No Peripheral Pulses WNL: Yes Wound/Incision: Yes: Other Neurological: Yes: Alert Psychiatric: Yes: Alert, Oriented Labs: CBC, BMP 01/16/18 07:30 01/17/18 09:15 INR, PTT INR 1.20 (0.83-1.09) H 01/12/18 09:05 Problem List - Problems (1) CHF (congestive heart failure) Assessment/Plan: monitor fluid status, check for orthostatism Code(s): I50.9 - HEART FAILURE, UNSPECIFIED Qualifiers: Heart failure type: combined systolic and diastolic Heart failure chronicity: chronic Qualified Code(s): I50.42 - 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) heart failure (2) Pleural effusion Assessment/Plan: pleural fluid was drained and 900 cc obtained pleural fluid cultures grew Staph, further identification is pending continue IV Ceftriaxone and Zithromax 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 right hemithorax s/p Alteplase Code(s): J90 - PLEURAL EFFUSION, NOT ELSEWHERE CLASSIFIED (3) Diabetes mellitus Assessment/Plan: monitor BGM and correct with regular insulin off Glipizide for now until stable Code(s): E11.9 - TYPE 2 DIABETES MELLITUS WITHOUT COMPLICATIONS (4) Lung nodule Assessment/Plan: unclear etiology will follow up as an outpatient Code(s): R91.1 - SOLITARY PULMONARY NODULE (5) CKD (chronic kidney disease) Assessment/Plan: creatinine better but not at baseline poor proteo caloric status add NEPRO Code(s): N18.9 - CHRONIC KIDNEY DISEASE, UNSPECIFIED (6) Radiculitis of leg Assessment/Plan: left lower extremity radiculitis Code(s): M54.10 - RADICULOPATHY, SITE UNSPECIFIED (7) Fall Code(s): W19.XXXA - UNSPECIFIED FALL, INITIAL ENCOUNTER (8) Fall during current hospitalization Assessment/Plan: no sign of trauma the patient has orthostatic hypotension received 1/2 NS iv fluid administer an additional l 1/2NS Code(s): W19.XXXA - UNSPECIFIED FALL, INITIAL ENCOUNTER; Y92.239 - UNSP PLACE IN HOSPITAL PLACE (9) Orthostatic hypotension Assessment/Plan: 1/2 NS completed repeat CMp in am Code(s): I95.1 - ORTHOSTATIC HYPOTENSION
[2018-01-17] MEDS: SODIUM CHLORIDE 0.45% 1,000 ML IV SCH (22:49)
[2018-01-17] MEDS: ATORVASTATIN CA 80 MG TABLET (FP) PO SCH (22:57)
[2018-01-17] MEDS: INSULIN SLIDING SCALE (NOVOLOG) 1 VIAL SQ SCH (22:57)
[2018-01-18] MEDS: INSULIN SLIDING SCALE (NOVOLOG) 1 VIAL SQ SCH ×4 (06:36→22:58)
[2018-01-18 08:41] LABS: BASO % 0.4 % (0-2.0); EOS % 3.1 % (0-4.5); HEMATOCRIT 29.7 % (35.4-49); HEMOGLOBIN 10.2 GM/dL (11.7-16.9); LYMPH % 16.4 % (8-40); MCH 30.7 pg (25.7-33.7); MCHC 34.3 g/dl (32.0-35.9); MEAN CELL VOLUME 89.6 fl (80-96); MEAN PLT VOLUME 8.2 fl (7.5-11.1); NEUT % 70.1 % (42.8-82.8); PLATELET COUNT 206 K/MM3 (134-434); RBC 3.31 M/mm3 (4.00-5.60); RDW 14.6 % (11.9-15.9); WHITE BLOOD COUNT 5.3 K/mm3 (4.0-10.0)
[2018-01-18] MEDS ORDERED: DEXTROSE 5%-WATER - 50 ML IVPB ONE (09:25)
[2018-01-18] MEDS ORDERED: cefTRIAXone SODIUM 1 GM VIAL ONE (09:25)
[2018-01-18 09:29] LABS: ALBUMIN 1.4 g/dl (3.4-5.0); ANION GAP 10 (8-16); BLOOD UREA NITROGEN 75 mg/dL (7-18); CALCIUM 7.3 mg/dL (8.5-10.1); CHLORIDE 106 mmol/L (98-107); CO2 21 mmol/L (21-32); GLUCOSE,RANDOM 148 mg/dL (74-106); POTASSIUM 5.1 mmol/L (3.5-5.1); SODIUM 137 mmol/L (136-145)
[2018-01-18] MEDS: CEFTRIAXONE 1 GM in DEXTROSE 5%-WATER - 50 ML IVPB SCH (09:32)
[2018-01-18] MEDS: DOCUSATE SODIUM 100 MG CAPSULE (FP) PO SCH (09:32)
[2018-01-18] MEDS: GABAPENTIN 300 MG CAPSULE (FP) PO SCH ×2 (09:32→22:57)
[2018-01-18] MEDS: CLOPIDOGREL BISULFATE 75 MG TABLET (FP) PO SCH (09:33)
[2018-01-18] MEDS: CARVEDILOL 25 MG TABLET (FP) PO SCH ×2 (09:33→22:57)
[2018-01-18] MEDS: ALLOPURINOL 100 MG TABLET (FP) PO SCH (09:33)
[2018-01-18] MEDS: CHOLECALCIFEROL (VITAMIN D3) 1,000 UNIT TABLET (FP) PO SCH (09:33)
[2018-01-18] MEDS: ASPIRIN 81 MG CHEWABLE TABLETS PO SCH (09:33)
[2018-01-18] MEDS: ISOSORBIDE DINITRATE 20 MG TABLET (FP) PO SCH ×3 (09:33→18:52)
[2018-01-18 09:43] LABS: ALK PHOS 108 U/L (45-117); BILIRUBIN,TOTAL 0.4 mg/dL (0.2-1.0); CREATININE 1.9 mg/dL (0.7-1.3); SGOT/AST 77 U/L (15-37); SGPT/ALT 111 U/L (12-78); TOT PROT 4.8 g/dl (6.4-8.2)
--- NOTE | 2018-01-18 10:19 | PN ---
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 (short form) - Note 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: PULMONARY VSS/AFEBRILE 800 cc PLEURAL FLUID REMOVED YESTERDAY SUBJECTIVE IMPROVEMENT ANICTERIC DIMINISHED BREATH SOUNDS ON RIGHT/PLEUREX IN PLACE S1S2 BS+ NO EDEMA LABS/MEDS/MICRO/NOTES/IMAGES REVIEWED IMP RLL PNEUMONIA STAPH IN PLEURAL FLUID CHRONIC R PLEURAL EFFUSION S/P PLEUR-X ASHD S/P MULTIPLE STENTS CHF ACUTE ON CHRONIC KIDNEY DISEASE HTN PLAN IV ABX/ O2 MONITOR LYTES, RENAL FUNCTION F/U CHEST X-RAY CONTINUE CURRENT TREATMENT Yusuf ARGUELLO MD
[2018-01-18] MEDS ORDERED: INSULIN (NOVOLOG) ASPART 100 UNITS/ML 10ML VIAL ONE (18:01)
--- NOTE | 2018-01-18 18:09 | PN ---
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, Physician Chief Complaint: less cough, had 900 cc fluid drained last night from the right hemithorax and feels much better with improved appetite History of Present Illness: 72 yo male with PMH of CHF , DM type 2 and recurrent pleural effusions with a permanent Pleurx catheter was admitted after being unable to drain his catheter. His catheter was treated with Alteplase and 900 cc fluid were obtained.The fluid culture results are positive for staph, MSSA and he is a MRSA career - Current Medication List Current Medications: Active Medications Acetaminophen (Tylenol -) 650 mg PO Q6H PRN PRN Reason: FEVER/PAIN LEVEL 1-5 Last Admin: 01/16/18 21:26 Dose: 650 mg Allopurinol (Zyloprim -) 100 mg PO DAILY [facility] Last Admin: 01/18/18 09:33 Dose: 100 mg Aspirin (Asa -) 81 mg PO DAILY [facility] Last Admin: 01/18/18 09:33 Dose: 81 mg Atorvastatin Calcium (Lipitor -) 80 mg PO HS [facility] Last Admin: 01/17/18 22:57 Dose: 80 mg Carvedilol (Coreg -) 25 mg PO BID [facility] Last Admin: 01/18/18 09:33 Dose: 25 mg Cholecalciferol (Vitamin D3 -) 1,000 unit PO DAILY [facility] Last Admin: 01/18/18 09:33 Dose: 1,000 unit Clopidogrel Bisulfate (Plavix -) 75 mg PO DAILY [facility] Last Admin: 01/18/18 09:33 Dose: 75 mg Docusate Sodium (Colace -) 300 mg PO DAILY [facility] Last Admin: 01/18/18 09:32 Dose: 300 mg Gabapentin (Neurontin -) 600 mg PO BID [facility] Last Admin: 01/18/18 09:32 Dose: 600 mg Guaifenesin (Diabetic Tussin Dm -) 10 ml PO Q6H PRN PRN Reason: COUGH Ceftriaxone Sodium 1 gm/ (Dextrose) 50 mls @ 100 mls/hr IVPB DAILY [facility] Last Admin: 01/18/18 09:32 Dose: 100 mls/hr Sodium Chloride (1/2 Normal Saline) 1,000 mls @ 42 mls/hr IV ASDIR [facility] Last Admin: 01/17/18 22:49 Dose: 42 mls/hr Insulin Aspart (Novolog Vial Sliding Scale -) 1 vial SQ ACHS [facility]; Protocol Last Admin: 01/18/18 17:45 Dose: Not Given Isosorbide Dinitrate (Isordil -) 20 mg PO TIDISORDIL [facility] Last Admin: 01/18/18 12:50 Dose: 20 mg Ondansetron HCl (Zofran Injection) 4 mg IVPUSH Q6H PRN PRN Reason: NAUSEA AND/OR VOMITING - Objective Vital Signs: Vital Signs Temperature 97.4 F L 01/18/18 17:26 Pulse Rate 67 01/18/18 17:26 Respiratory Rate 20 01/18/18 17:26 Blood Pressure 138/59 01/18/18 17:26 O2 Sat by Pulse Oximetry (%) 97 01/18/18 09:00 Constitutional: Yes: No Distress, Calm Eyes: Yes: Conjunctiva Clear, EOM Intact HENT: Yes: Atraumatic, Normocephalic Neck: Yes: Supple, Trachea Midline. No: Tenderness Cardiovascular: Yes: Regular Rate and Rhythm, S1, S2 Respiratory: Yes: Regular, CTA Bilaterally, Other (good air entry bilaterally) Gastrointestinal: Yes: Normal Bowel Sounds, Soft, Abdomen, Obese. No: Hepatomegaly, Splenomegaly ...Rectal Exam: Yes: WNL Genitourinary: No: Hematuria Extremities: No: Calf Tenderness Edema: No Peripheral Pulses WNL: Yes Neurological: Yes: Alert, Oriented Psychiatric: Yes: Alert, Oriented Labs: CBC, BMP 01/18/18 08:00 01/18/18 08:00 INR, PTT INR 1.20 (0.83-1.09) H 01/12/18 09:05 Problem List - Problems (1) CHF (congestive heart failure) Assessment/Plan: monitor fluid status, check for orthostatism Code(s): I50.9 - HEART FAILURE, UNSPECIFIED Qualifiers: Heart failure type: combined systolic and diastolic Heart failure chronicity: chronic Qualified Code(s): I50.42 - 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) heart failure (2) Pleural effusion Assessment/Plan: pleural fluid was drained and 900 cc obtained pleural fluid cultures grew Staph, further identification is pending continue IV Ceftriaxone and Zithromax 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 right hemithorax s/p Alteplase Code(s): J90 - PLEURAL EFFUSION, NOT ELSEWHERE CLASSIFIED (3) Diabetes mellitus Assessment/Plan: monitor BGM and correct with regular insulin off Glipizide for now until stable Code(s): E11.9 - TYPE 2 DIABETES MELLITUS WITHOUT COMPLICATIONS (4) Lung nodule Assessment/Plan: unclear etiology will follow up as an outpatient Code(s): R91.1 - SOLITARY PULMONARY NODULE (5) CKD (chronic kidney disease) Assessment/Plan: creatinine better but not at baseline poor proteo caloric status add NEPRO Code(s): N18.9 - CHRONIC KIDNEY DISEASE, UNSPECIFIED (6) Radiculitis of leg Assessment/Plan: left lower extremity radiculitis Code(s): M54.10 - RADICULOPATHY, SITE UNSPECIFIED (7) Fall Code(s): W19.XXXA - UNSPECIFIED FALL, INITIAL ENCOUNTER (8) Fall during current hospitalization Assessment/Plan: no sign of trauma the patient has orthostatic hypotension received 1/2 NS iv fluid administer an additional l 1/2NS Code(s): W19.XXXA - UNSPECIFIED FALL, INITIAL ENCOUNTER; Y92.239 - UNSP PLACE IN HOSPITAL PLACE (9) Orthostatic hypotension Assessment/Plan: 1/2 NS completed repeat CMp in am Code(s): I95.1 - ORTHOSTATIC HYPOTENSION
[2018-01-18] MEDS: ATORVASTATIN CA 80 MG TABLET (FP) PO SCH (22:57)
[2018-01-18] MEDS: SODIUM CHLORIDE 0.45% 1,000 ML IV SCH (22:57)
[2018-01-19] MEDS: INSULIN SLIDING SCALE (NOVOLOG) 1 VIAL SQ SCH ×4 (06:14→21:10)
[2018-01-19] MEDS: ISOSORBIDE DINITRATE 20 MG TABLET (FP) PO SCH ×3 (08:55→17:23)
[2018-01-19] MEDS ORDERED: DEXTROSE 5%-WATER - 50 ML IVPB ONE (09:19)
[2018-01-19] MEDS ORDERED: cefTRIAXone SODIUM 1 GM VIAL ONE (09:19)
[2018-01-19] MEDS: CEFTRIAXONE 1 GM in DEXTROSE 5%-WATER - 50 ML IVPB SCH (09:26)
[2018-01-19] MEDS: DOCUSATE SODIUM 100 MG CAPSULE (FP) PO SCH (09:27)
[2018-01-19] MEDS: ALLOPURINOL 100 MG TABLET (FP) PO SCH (09:27)
[2018-01-19] MEDS: CARVEDILOL 25 MG TABLET (FP) PO SCH ×2 (09:27→21:07)
[2018-01-19] MEDS: GABAPENTIN 300 MG CAPSULE (FP) PO SCH ×2 (09:27→21:07)
[2018-01-19] MEDS: ASPIRIN 81 MG CHEWABLE TABLETS PO SCH (09:27)
[2018-01-19] MEDS: CHOLECALCIFEROL (VITAMIN D3) 1,000 UNIT TABLET (FP) PO SCH (09:27)
[2018-01-19] MEDS: CLOPIDOGREL BISULFATE 75 MG TABLET (FP) PO SCH (09:27)
--- NOTE | 2018-01-19 11:55 | PN ---
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 (short form) - Note 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: Feels better today. Comfortable on RA. Minimal cough. No fevers or chills. Intake & Output 01/16/18 01/17/18 01/18/18 01/19/18 23:59 23:59 23:59 23:59 Intake Total 1650 1300 2450 200 Output Total 750 1200 1190 520 Balance 487 648 8368 -320 Weight 176 lb 8 oz 175 lb 5 oz 177 lb 1 oz 175 lb 11.2 oz Last Vital Signs Temp Pulse Resp BP Pulse Ox 98.3 F 85 18 143/63 93 L 01/19/18 09:29 01/19/18 09:29 01/19/18 09:29 01/19/18 09:29 01/19/18 09:00 Active Medications Acetaminophen (Tylenol -) 650 mg PO Q6H PRN PRN Reason: FEVER/PAIN LEVEL 1-5 Last Admin: 01/16/18 21:26 Dose: 650 mg Allopurinol (Zyloprim -) 100 mg PO DAILY [facility] Last Admin: 01/19/18 09:27 Dose: 100 mg Aspirin (Asa -) 81 mg PO DAILY [facility] Last Admin: 01/19/18 09:27 Dose: 81 mg Atorvastatin Calcium (Lipitor -) 80 mg PO HS [facility] Last Admin: 01/18/18 22:57 Dose: 80 mg Carvedilol (Coreg -) 25 mg PO BID [facility] Last Admin: 01/19/18 09:27 Dose: 25 mg Cholecalciferol (Vitamin D3 -) 1,000 unit PO DAILY [facility] Last Admin: 01/19/18 09:27 Dose: 1,000 unit Clopidogrel Bisulfate (Plavix -) 75 mg PO DAILY [facility] Last Admin: 01/19/18 09:27 Dose: 75 mg Docusate Sodium (Colace -) 300 mg PO DAILY [facility] Last Admin: 01/19/18 09:27 Dose: 300 mg Gabapentin (Neurontin -) 600 mg PO BID [facility] Last Admin: 01/19/18 09:27 Dose: 600 mg Guaifenesin (Diabetic Tussin Dm -) 10 ml PO Q6H PRN PRN Reason: COUGH Ceftriaxone Sodium 1 gm/ (Dextrose) 50 mls @ 100 mls/hr IVPB DAILY [facility] Last Admin: 01/19/18 09:26 Dose: 100 mls/hr Sodium Chloride (1/2 Normal Saline) 1,000 mls @ 42 mls/hr IV ASDIR [facility] Last Admin: 01/18/18 22:57 Dose: 42 mls/hr Insulin Aspart (Novolog Vial Sliding Scale -) 1 vial SQ ACHS [facility]; Protocol Last Admin: 01/19/18 06:14 Dose: Not Given Isosorbide Dinitrate (Isordil -) 20 mg PO TIDISORDIL [facility] Last Admin: 01/19/18 08:55 Dose: 20 mg Ondansetron HCl (Zofran Injection) 4 mg IVPUSH Q6H PRN PRN Reason: NAUSEA AND/OR VOMITING Gen: NAD at rest Heart: RRR Lung: decreased breath sounds right base, right PleureX intact Abd: soft, nontender Ext: no edema Intake & Output 01/16/18 01/17/18 01/18/18 01/19/18 23:59 23:59 23:59 23:59 Intake Total 1650 1300 2450 200 Output Total 750 1200 1190 520 Balance 497 063 7667 -320 Weight 176 lb 8 oz 175 lb 5 oz 177 lb 1 oz 175 lb 11.2 oz Last Vital Signs Temp Pulse Resp BP Pulse Ox 98.3 F 85 18 143/63 93 L 01/19/18 09:29 01/19/18 09:29 01/19/18 09:29 01/19/18 09:29 01/19/18 09:00 Active Medications Acetaminophen (Tylenol -) 650 mg PO Q6H PRN PRN Reason: FEVER/PAIN LEVEL 1-5 Last Admin: 01/16/18 21:26 Dose: 650 mg Allopurinol (Zyloprim -) 100 mg PO DAILY [facility] Last Admin: 01/19/18 09:27 Dose: 100 mg Aspirin (Asa -) 81 mg PO DAILY [facility] Last Admin: 01/19/18 09:27 Dose: 81 mg Atorvastatin Calcium (Lipitor -) 80 mg PO HS [facility] Last Admin: 01/18/18 22:57 Dose: 80 mg Carvedilol (Coreg -) 25 mg PO BID [facility] Last Admin: 01/19/18 09:27 Dose: 25 mg Cholecalciferol (Vitamin D3 -) 1,000 unit PO DAILY [facility] Last Admin: 01/19/18 09:27 Dose: 1,000 unit Clopidogrel Bisulfate (Plavix -) 75 mg PO DAILY [facility] Last Admin: 01/19/18 09:27 Dose: 75 mg Docusate Sodium (Colace -) 300 mg PO DAILY [facility] Last Admin: 01/19/18 09:27 Dose: 300 mg Gabapentin (Neurontin -) 600 mg PO BID [facility] Last Admin: 01/19/18 09:27 Dose: 600 mg Guaifenesin (Diabetic Tussin Dm -) 10 ml PO Q6H PRN PRN Reason: COUGH Ceftriaxone Sodium 1 gm/ (Dextrose) 50 mls @ 100 mls/hr IVPB DAILY [facility] Last Admin: 01/19/18 09:26 Dose: 100 mls/hr Sodium Chloride (1/2 Normal Saline) 1,000 mls @ 42 mls/hr IV ASDIR [facility] Last Admin: 01/18/18 22:57 Dose: 42 mls/hr Insulin Aspart (Novolog Vial Sliding Scale -) 1 vial SQ ACHS [facility]; Protocol Last Admin: 01/19/18 06:14 Dose: Not Given Isosorbide Dinitrate (Isordil -) 20 mg PO TIDISORDIL [facility] Last Admin: 01/19/18 08:55 Dose: 20 mg Ondansetron HCl (Zofran Injection) 4 mg IVPUSH Q6H PRN PRN Reason: NAUSEA AND/OR VOMITING A/P RLL Pneumonia Loculated R Pleural Effusion s/p pleur-x/tPA r/o Empyema CAD Acute on Chronic Renal Failure HTN LV Systolic/Diastolic Dysfunction - continue antibiotics - f/u pleural fluid cultures - O2 to keep SpO2 >90% - continue cardiac meds - DVT prophylaxis Dr Bella
[2018-01-19] MEDS ORDERED: INSULIN (NOVOLOG) ASPART 100 UNITS/ML 10ML VIAL ONE ×3 (13:00→20:44)
[2018-01-19] MEDS ORDERED: VANCOMYCIN 1,000 MG in DEXTROSE 5%-WATER - 250 ML IVPB SCH (14:15)
--- NOTE | 2018-01-19 14:27 | PN ---
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 (short form) - Note 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: no fevers got vancomycin this weekend Vital Signs Period Temp Pulse Resp BP Sys/Desai Pulse Ox Last 24 Hr 97.4 F-99.3 F 67-85 18-20 112-143/57-63 93-96 cor-rrr llungs decreased bs on the right abd soft,nt ext no edema CBC, BMP 01/18/18 08:00 01/18/18 08:00 Current Medications Acetaminophen (Tylenol -) 650 mg PO Q6H PRN PRN Reason: FEVER/PAIN LEVEL 1-5 Last Admin: 01/16/18 21:26 Dose: 650 mg Allopurinol (Zyloprim -) 100 mg PO DAILY [facility] Last Admin: 01/19/18 09:27 Dose: 100 mg Aspirin (Asa -) 81 mg PO DAILY [facility] Last Admin: 01/19/18 09:27 Dose: 81 mg Atorvastatin Calcium (Lipitor -) 80 mg PO HS [facility] Last Admin: 01/18/18 22:57 Dose: 80 mg Carvedilol (Coreg -) 25 mg PO BID [facility] Last Admin: 01/19/18 09:27 Dose: 25 mg Cholecalciferol (Vitamin D3 -) 1,000 unit PO DAILY [facility] Last Admin: 01/19/18 09:27 Dose: 1,000 unit Clopidogrel Bisulfate (Plavix -) 75 mg PO DAILY [facility] Last Admin: 01/19/18 09:27 Dose: 75 mg Docusate Sodium (Colace -) 300 mg PO DAILY [facility] Last Admin: 01/19/18 09:27 Dose: 300 mg Gabapentin (Neurontin -) 600 mg PO BID [facility] Last Admin: 01/19/18 09:27 Dose: 600 mg Guaifenesin (Diabetic Tussin Dm -) 10 ml PO Q6H PRN PRN Reason: COUGH Ceftriaxone Sodium 1 gm/ (Dextrose) 50 mls @ 100 mls/hr IVPB DAILY [facility] Last Admin: 01/19/18 09:26 Dose: 100 mls/hr Sodium Chloride (1/2 Normal Saline) 1,000 mls @ 42 mls/hr IV ASDIR [facility] Last Admin: 01/18/18 22:57 Dose: 42 mls/hr Insulin Aspart (Novolog Vial Sliding Scale -) 1 vial SQ ACHS [facility]; Protocol Last Admin: 01/19/18 12:49 Dose: 2 units Isosorbide Dinitrate (Isordil -) 20 mg PO TIDISORDIL [facility] Last Admin: 01/19/18 14:09 Dose: 20 mg Ondansetron HCl (Zofran Injection) 4 mg IVPUSH Q6H PRN PRN Reason: NAUSEA AND/OR VOMITING Microbiology 01/15/18 11:45 Blood - Arterial Blood Culture - Preliminary NO GROWTH OBTAINED AFTER 96 HOURS, INCUBATION TO CONTINUE FOR 1 DAYS. 01/15/18 11:30 Blood - Arterial Blood Culture - Preliminary NO GROWTH OBTAINED AFTER 96 HOURS, INCUBATION TO CONTINUE FOR 1 DAYS. 01/13/18 14:00 Pleural Fluid Gram Stain - Final 01/13/18 14:00 Pleural Fluid Body Fluid Culture - Final Staphylococcus Epidermidis Micrococcus & Related Species Diphtheroid/Corynebacterium 01/13/18 14:00 Pleural Fluid Anaerobic Culture - Final NO ANAEROBES WERE ISOLATED 01/16/18 20:30 Urine For Antigen Detection Legionella Antigen - Final 01/16/18 20:30 Urine For Antigen Detection Streptococcus pneumoniae Antigen (M - Final 01/13/18 15:00 Nares - Mrsa Screen - Left MRSA Screen - Final S Aureus 01/13/18 15:00 Nares - Mrsa Screen - Right MRSA Screen - Final S Aureus imp/reccd 72 year old man with recurrent pleural effusion, s/p pleurx for about 6 months , admitted with fevers, pain at catheter site minimal drainage from catheter chest ct noted with increased infiltrate and loculated effusions s/p TPA +pleural fluid culture- ?empyema redose vancomycin today continue rocephin repeat cultures and cell count when fluid is drained in the am d/w pulmonary Problem List - Problems (1) Pneumonia Code(s): J18.9 - PNEUMONIA, UNSPECIFIED ORGANISM (2) Pleural effusion Code(s): J90 - PLEURAL EFFUSION, NOT ELSEWHERE CLASSIFIED (3) MRSA (methicillin resistant Staphylococcus aureus) colonization Code(s): Z22.322 - CARRIER OR SUSPECTED CARRIER OF METHICILLIN RESIS STAPH
[2018-01-19] MEDS ORDERED: VANCOMYCIN 1 GM PREMIX - 1 GM/200 ML BAG IVPB ONE (15:00)
[2018-01-19] MEDS: ATORVASTATIN CA 80 MG TABLET (FP) PO SCH (21:07)
--- NOTE | 2018-01-19 21:44 | PN ---
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, Physician Chief Complaint: The patient received a second dose of Vancomycin today. He had no fever and he has no dyspnea. His appetite is still decreased. There is no more cough and denies chest pain. History of Present Illness: 72 yo male with PMH of CHF , DM type 2 and recurrent pleural effusions with a permanent Pleurx catheter was admitted after being unable to drain his catheter. His catheter was treated with Alteplase and 900 cc fluid were obtained.The fluid culture results are positive for staph epidermidis, strep dyphtheroides and corynebacterium and he is an intranasal MRSA career - Current Medication List Current Medications: Active Medications Acetaminophen (Tylenol -) 650 mg PO Q6H PRN PRN Reason: FEVER/PAIN LEVEL 1-5 Last Admin: 01/16/18 21:26 Dose: 650 mg Allopurinol (Zyloprim -) 100 mg PO DAILY [facility] Last Admin: 01/19/18 09:27 Dose: 100 mg Aspirin (Asa -) 81 mg PO DAILY [facility] Last Admin: 01/19/18 09:27 Dose: 81 mg Atorvastatin Calcium (Lipitor -) 80 mg PO HS [facility] Last Admin: 01/19/18 21:07 Dose: 80 mg Carvedilol (Coreg -) 25 mg PO BID [facility] Last Admin: 01/19/18 21:07 Dose: 25 mg Cholecalciferol (Vitamin D3 -) 1,000 unit PO DAILY [facility] Last Admin: 01/19/18 09:27 Dose: 1,000 unit Clopidogrel Bisulfate (Plavix -) 75 mg PO DAILY [facility] Last Admin: 01/19/18 09:27 Dose: 75 mg Docusate Sodium (Colace -) 300 mg PO DAILY [facility] Last Admin: 01/19/18 09:27 Dose: 300 mg Gabapentin (Neurontin -) 600 mg PO BID [facility] Last Admin: 01/19/18 21:07 Dose: 600 mg Guaifenesin (Diabetic Tussin Dm -) 10 ml PO Q6H PRN PRN Reason: COUGH Ceftriaxone Sodium 1 gm/ (Dextrose) 50 mls @ 100 mls/hr IVPB DAILY [facility] Last Admin: 01/19/18 09:26 Dose: 100 mls/hr Sodium Chloride (1/2 Normal Saline) 1,000 mls @ 42 mls/hr IV ASDIR [facility] Last Admin: 01/18/18 22:57 Dose: 42 mls/hr Insulin Aspart (Novolog Vial Sliding Scale -) 1 vial SQ ACHS [facility]; Protocol Last Admin: 01/19/18 21:10 Dose: 2 units Isosorbide Dinitrate (Isordil -) 20 mg PO TIDISORDIL [facility] Last Admin: 01/19/18 17:23 Dose: 20 mg Ondansetron HCl (Zofran Injection) 4 mg IVPUSH Q6H PRN PRN Reason: NAUSEA AND/OR VOMITING - Objective Vital Signs: Vital Signs Temperature 98.5 F 01/19/18 17:01 Pulse Rate 69 01/19/18 17:01 Respiratory Rate 20 01/19/18 17:01 Blood Pressure 137/59 01/19/18 17:01 O2 Sat by Pulse Oximetry (%) 93 L 01/19/18 09:00 Constitutional: Yes: No Distress, Calm Eyes: Yes: Conjunctiva Clear, EOM Intact HENT: Yes: Atraumatic, Normocephalic Neck: Yes: Supple, Trachea Midline Cardiovascular: Yes: Regular Rate and Rhythm, Tachycardia, S1 Respiratory: Yes: Other (good air entry bilaterally). No: Cough, Dullness, Tachypnea, Wheezes Gastrointestinal: Yes: Normal Bowel Sounds, Abdomen, Obese. 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 right hemithorax s/p Alteplase Code(s): J90 - PLEURAL EFFUSION, NOT ELSEWHERE CLASSIFIED (2) CHF (congestive heart failure) Assessment/Plan: off Lasix now Code(s): I50.9 - HEART FAILURE, UNSPECIFIED Qualifiers: Heart failure type: combined systolic and diastolic Heart failure chronicity: chronic Qualified Code(s): I50.42 - 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) heart failure (3) Diabetes mellitus Assessment/Plan: monitor BGM and correct with regular insulin off Glipizide for now until stable Code(s): E11.9 - TYPE 2 DIABETES MELLITUS WITHOUT COMPLICATIONS (4) Lung nodule Assessment/Plan: unclear etiology will follow up as an outpatient Code(s): R91.1 - SOLITARY PULMONARY NODULE (5) CKD (chronic kidney disease) Assessment/Plan: creatinine better but not at baseline poor proteo caloric status stop iv fluids add NEPRO Code(s): N18.9 - CHRONIC KIDNEY DISEASE, UNSPECIFIED
[2018-01-20] MEDS: INSULIN SLIDING SCALE (NOVOLOG) 1 VIAL SQ SCH ×4 (06:00→21:42)
[2018-01-20 08:17] LABS: BASO % 0.4 % (0-2.0); EOS % 2.3 % (0-4.5); HEMATOCRIT 32.4 % (35.4-49); HEMOGLOBIN 10.7 GM/dL (11.7-16.9); LYMPH % 7.3 % (8-40); MCH 29.6 pg (25.7-33.7); MEAN CELL VOLUME 89.8 fl (80-96); MEAN PLT VOLUME 7.7 fl (7.5-11.1); MONO % 9.9 % (3.8-10.2); NEUT % 80.1 % (42.8-82.8); PLATELET COUNT 223 K/MM3 (134-434); RBC 3.61 M/mm3 (4.00-5.60); RDW 14.7 % (11.9-15.9)
[2018-01-20 08:49] LABS: ALBUMIN 1.6 g/dl (3.4-5.0); ALK PHOS 130 U/L (45-117); ANION GAP 9 (8-16); BILIRUBIN,TOTAL 0.5 mg/dL (0.2-1.0); BLOOD UREA NITROGEN 65 mg/dL (7-18); CALCIUM 7.8 mg/dL (8.5-10.1); CHLORIDE 106 mmol/L (98-107); CO2 22 mmol/L (21-32); CREATININE 1.5 mg/dL (0.7-1.3); GLUCOSE,RANDOM 140 mg/dL (74-106); POTASSIUM 5.2 mmol/L (3.5-5.1); SGOT/AST 65 U/L (15-37); SGPT/ALT 117 U/L (12-78); SODIUM 137 mmol/L (136-145); TOT PROT 5.7 g/dl (6.4-8.2)
[2018-01-20] MEDS ORDERED: PT OWN MED DRAWER 7, Y5N ONE ×3 (09:47→18:06)
[2018-01-20] MEDS ORDERED: cefTRIAXone SODIUM 1 GM VIAL ONE (09:47)
[2018-01-20] MEDS ORDERED: DEXTROSE 5%-WATER - 50 ML IVPB ONE (09:48)
[2018-01-20] MEDS: CEFTRIAXONE 1 GM in DEXTROSE 5%-WATER - 50 ML IVPB SCH (10:02)
[2018-01-20] MEDS: DOCUSATE SODIUM 100 MG CAPSULE (FP) PO SCH (10:03)
[2018-01-20] MEDS: CHOLECALCIFEROL (VITAMIN D3) 1,000 UNIT TABLET (FP) PO SCH (10:03)
[2018-01-20] MEDS: ALLOPURINOL 100 MG TABLET (FP) PO SCH (10:03)
[2018-01-20] MEDS: ASPIRIN 81 MG CHEWABLE TABLETS PO SCH (10:03)
[2018-01-20] MEDS: CARVEDILOL 25 MG TABLET (FP) PO SCH ×2 (10:03→21:42)
[2018-01-20] MEDS: CLOPIDOGREL BISULFATE 75 MG TABLET (FP) PO SCH (10:03)
[2018-01-20] MEDS: GABAPENTIN 300 MG CAPSULE (FP) PO SCH ×2 (10:03→21:39)
[2018-01-20] MEDS: ISOSORBIDE DINITRATE 20 MG TABLET (FP) PO SCH ×3 (10:04→18:13)
--- NOTE | 2018-01-20 10:51 | PN ---
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 (short form) - Note 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: Feels ok today. Reports no drainage yesterday. Minimal cough. No fevers or chills. Intake & Output 01/17/18 01/18/18 01/19/18 01/20/18 23:59 23:59 23:59 23:59 Intake Total 1300 2450 1680 Output Total 1200 1190 970 200 Balance 100 1260 710 -200 Weight 175 lb 5 oz 177 lb 1 oz 175 lb 177 lb 3.2 oz Last Vital Signs Temp Pulse Resp BP Pulse Ox 98.5 F 76 18 131/55 95 01/20/18 06:27 01/19/18 22:00 01/20/18 06:27 01/20/18 06:27 01/19/18 21:00 Active Medications Acetaminophen (Tylenol -) 650 mg PO Q6H PRN PRN Reason: FEVER/PAIN LEVEL 1-5 Last Admin: 01/16/18 21:26 Dose: 650 mg Allopurinol (Zyloprim -) 100 mg PO DAILY [facility] Last Admin: 01/20/18 10:03 Dose: 100 mg Aspirin (Asa -) 81 mg PO DAILY [facility] Last Admin: 01/20/18 10:03 Dose: 81 mg Atorvastatin Calcium (Lipitor -) 80 mg PO HS [facility] Last Admin: 01/19/18 21:07 Dose: 80 mg Carvedilol (Coreg -) 25 mg PO BID [facility] Last Admin: 01/20/18 10:03 Dose: 25 mg Cholecalciferol (Vitamin D3 -) 1,000 unit PO DAILY [facility] Last Admin: 01/20/18 10:03 Dose: 1,000 unit Clopidogrel Bisulfate (Plavix -) 75 mg PO DAILY [facility] Last Admin: 01/20/18 10:03 Dose: 75 mg Docusate Sodium (Colace -) 300 mg PO DAILY [facility] Last Admin: 01/20/18 10:03 Dose: 300 mg Gabapentin (Neurontin -) 600 mg PO BID [facility] Last Admin: 01/20/18 10:03 Dose: 600 mg Guaifenesin (Diabetic Tussin Dm -) 10 ml PO Q6H PRN PRN Reason: COUGH Ceftriaxone Sodium 1 gm/ (Dextrose) 50 mls @ 100 mls/hr IVPB DAILY [facility] Last Admin: 01/20/18 10:02 Dose: 100 mls/hr Insulin Aspart (Novolog Vial Sliding Scale -) 1 vial SQ ACHS [facility]; Protocol Last Admin: 01/20/18 06:00 Dose: 2 units Isosorbide Dinitrate (Isordil -) 20 mg PO TIDISORDIL [facility] Last Admin: 01/20/18 10:04 Dose: 20 mg Ondansetron HCl (Zofran Injection) 4 mg IVPUSH Q6H PRN PRN Reason: NAUSEA AND/OR VOMITING Gen: NAD at rest Heart: RRR Lung: decreased breath sounds right base, right PleureX intact Abd: soft, nontender Ext: no edema Laboratory Results - last 24 hr 01/19/18 01/19/18 01/19/18 12:08 17:21 21:09 WBC RBC Hgb Hct MCV MCH MCHC RDW Plt Count MPV Absolute Neuts (auto) Neutrophils % Lymphocytes % Monocytes % Eosinophils % Basophils % Nucleated RBC % Sodium Potassium Chloride Carbon Dioxide Anion Gap BUN Creatinine Creat Clearance w eGFR POC Glucometer 193 204 177 Random Glucose Calcium Total Bilirubin AST ALT Alkaline Phosphatase Total Protein Albumin Random Vancomycin 01/20/18 01/20/18 01/20/18 05:45 08:00 08:00 WBC 6.0 RBC 3.61 L Hgb 10.7 L Hct 32.4 L MCV 89.8 MCH 29.6 MCHC 33.0 RDW 14.7 Plt Count 223 MPV 7.7 Absolute Neuts (auto) 4.8 Neutrophils % 80.1 Lymphocytes % 7.3 L D Monocytes % 9.9 Eosinophils % 2.3 Basophils % 0.4 Nucleated RBC % 0 Sodium Potassium Chloride Carbon Dioxide Anion Gap BUN Creatinine Creat Clearance w eGFR POC Glucometer 162 Random Glucose Calcium Total Bilirubin AST ALT Alkaline Phosphatase Total Protein Albumin Random Vancomycin 15.64 01/20/18 08:00 WBC RBC Hgb Hct MCV MCH MCHC RDW Plt Count MPV Absolute Neuts (auto) Neutrophils % Lymphocytes % Monocytes % Eosinophils % Basophils % Nucleated RBC % Sodium 137 Potassium 5.2 H Chloride 106 Carbon Dioxide 22 Anion Gap 9 BUN 65 H Creatinine 1.5 H Creat Clearance w eGFR 45.75 POC Glucometer Random Glucose 140 H Calcium 7.8 L Total Bilirubin 0.5 AST 65 H ALT 117 H Alkaline Phosphatase 130 H D Total Protein 5.7 L Albumin 1.6 L Random Vancomycin A/P RLL Pneumonia Loculated R Pleural Effusion s/p pleur-x/tPA r/o Empyema CAD Acute on Chronic Renal Failure HTN LV Systolic/Diastolic Dysfunction - D/W RN: Pleural fluid to be sent for repeat cultures - continue antibiotics per iD - O2 to keep SpO2 >90% - DVT prophylaxis Dr Bella
--- NOTE | 2018-01-20 18:32 | PN ---
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, Physician Chief Complaint: no fever today, the pleurx catheter was drained for 500 cc pleural fluids, the patient denies any dyspnea History of Present Illness: 72 yo male with PMH of CHF , DM type 2 and recurrent pleural effusions with a permanent right Pleurx catheter was admitted after being unable to drain his catheter. His catheter was treated with Alteplase and approximately 900 cc fluid were drained afterwards.The fluid cultures results are are growing staph. The patient is relatively comfortable - Current Medication List Current Medications: Active Medications Acetaminophen (Tylenol -) 650 mg PO Q6H PRN PRN Reason: FEVER/PAIN LEVEL 1-5 Last Admin: 01/16/18 21:26 Dose: 650 mg Allopurinol (Zyloprim -) 100 mg PO DAILY [facility] Last Admin: 01/20/18 10:03 Dose: 100 mg Aspirin (Asa -) 81 mg PO DAILY [facility] Last Admin: 01/20/18 10:03 Dose: 81 mg Atorvastatin Calcium (Lipitor -) 80 mg PO HS [facility] Last Admin: 01/19/18 21:07 Dose: 80 mg Carvedilol (Coreg -) 25 mg PO BID [facility] Last Admin: 01/20/18 10:03 Dose: 25 mg Cholecalciferol (Vitamin D3 -) 1,000 unit PO DAILY [facility] Last Admin: 01/20/18 10:03 Dose: 1,000 unit Clopidogrel Bisulfate (Plavix -) 75 mg PO DAILY [facility] Last Admin: 01/20/18 10:03 Dose: 75 mg Docusate Sodium (Colace -) 300 mg PO DAILY [facility] Last Admin: 01/20/18 10:03 Dose: 300 mg Gabapentin (Neurontin -) 600 mg PO BID [facility] Last Admin: 01/20/18 10:03 Dose: 600 mg Guaifenesin (Diabetic Tussin Dm -) 10 ml PO Q6H PRN PRN Reason: COUGH Ceftriaxone Sodium 1 gm/ (Dextrose) 50 mls @ 100 mls/hr IVPB DAILY [facility] Last Admin: 01/20/18 10:02 Dose: 100 mls/hr Insulin Aspart (Novolog Vial Sliding Scale -) 1 vial SQ ACHS [facility]; Protocol Last Admin: 01/20/18 17:54 Dose: 2 units Isosorbide Dinitrate (Isordil -) 20 mg PO TIDISORDIL [facility] Last Admin: 01/20/18 18:13 Dose: 20 mg Ondansetron HCl (Zofran Injection) 4 mg IVPUSH Q6H PRN PRN Reason: NAUSEA AND/OR VOMITING - Objective Vital Signs: Vital Signs Temperature 98.6 F 01/20/18 17:12 Pulse Rate 82 01/20/18 17:12 Respiratory Rate 20 01/20/18 17:12 Blood Pressure 131/62 01/20/18 17:12 O2 Sat by Pulse Oximetry (%) 95 01/19/18 21:00 Constitutional: Yes: No Distress, Anxious (about not being able to be discharged ) Eyes: Yes: Conjunctiva Clear, EOM Intact HENT: Yes: Atraumatic, Normocephalic Neck: Yes: Supple, Trachea Midline Cardiovascular: Yes: Regular Rate and Rhythm, S1, S2 Respiratory: Yes: Regular, CTA Bilaterally, Other (right hemithorax pleurx catheter present). No: Rales, Rhonchi, SOB, Wheezes Gastrointestinal: Yes: Normal Bowel Sounds, Soft, Abdomen, Obese. 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 right hemithorax s/p Alteplase Code(s): J90 - PLEURAL EFFUSION, NOT ELSEWHERE CLASSIFIED (2) CHF (congestive heart failure) Assessment/Plan: stopped iv hydration will start Lasix in am Code(s): I50.9 - HEART FAILURE, UNSPECIFIED Qualifiers: Heart failure type: combined systolic and diastolic Heart failure chronicity: chronic Qualified Code(s): I50.42 - 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) heart failure (3) Diabetes mellitus Assessment/Plan: monitor BGM and correct with regular insulin off Glipizide for now until stable Code(s): E11.9 - TYPE 2 DIABETES MELLITUS WITHOUT COMPLICATIONS (4) Lung nodule Assessment/Plan: unclear etiology will follow up as an outpatient Code(s): R91.1 - SOLITARY PULMONARY NODULE (5) CKD (chronic kidney disease) Assessment/Plan: creatinine better but not at baseline poor proteo caloric status added NEPRO Code(s): N18.9 - CHRONIC KIDNEY DISEASE, UNSPECIFIED Assessment/Plan 72 yo male admitted for loculated right pleural effusion, had his Pleurx catheter treated with Alteplase. He was treated with iv antibiotics for empyema and had the fluid drained and sent for chemistry today. Results are pending. I will attempt discharge home tomorrow.
[2018-01-20 20:03] LABS: PLEURAL FLUID APPEARANCE HAZY; PLEURAL FLUID COLOR RED
[2018-01-20 20:18] LABS: GLUCOSE,PLEURAL FLUID 102.79; TOTAL PROTEIN,PLEURAL FLUID 2.808
[2018-01-20 20:59] LABS: PLEURAL FLUID LYMPHOCYTES 14 %; PLEURAL FLUID MONOCYTE 1 %; PLEURAL FLUID NEUTROPHIL 84 %
[2018-01-20 21:00] LABS: PLEURAL FLD EOSINOPHIL 1 %
[2018-01-20] MEDS: ATORVASTATIN CA 80 MG TABLET (FP) PO SCH (21:39)
[2018-01-21] MEDS: INSULIN SLIDING SCALE (NOVOLOG) 1 VIAL SQ SCH ×4 (06:08→21:11)
[2018-01-21] MEDS ORDERED: PT OWN MED DRAWER 7, Y5N ONE ×4 (07:52→19:44)
[2018-01-21] MEDS: ISOSORBIDE DINITRATE 20 MG TABLET (FP) PO SCH ×3 (08:14→19:46)
[2018-01-21] MEDS ORDERED: cefTRIAXone SODIUM 1 GM VIAL ONE (10:15)
[2018-01-21] MEDS ORDERED: DEXTROSE 5%-WATER - 50 ML IVPB ONE (10:15)
--- NOTE | 2018-01-21 10:21 | PN ---
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, Physician Chief Complaint: no fever today, dry cough, no orthopnea History of Present Illness: 72 yo male with right hemithorax pleurx catheter since spring 2017, secondary to recurrent CHF pleural fluid came in with empyema. Ct showed loculated pleural fluid. Altepalse was given with improvement of the drainage. - Current Medication List Current Medications: Active Medications Acetaminophen (Tylenol -) 650 mg PO Q6H PRN PRN Reason: FEVER/PAIN LEVEL 1-5 Last Admin: 01/16/18 21:26 Dose: 650 mg Allopurinol (Zyloprim -) 100 mg PO DAILY [facility] Last Admin: 01/20/18 10:03 Dose: 100 mg Aspirin (Asa -) 81 mg PO DAILY [facility] Last Admin: 01/20/18 10:03 Dose: 81 mg Atorvastatin Calcium (Lipitor -) 80 mg PO HS [facility] Last Admin: 01/20/18 21:39 Dose: 80 mg Carvedilol (Coreg -) 25 mg PO BID [facility] Last Admin: 01/20/18 21:42 Dose: 25 mg Cholecalciferol (Vitamin D3 -) 1,000 unit PO DAILY [facility] Last Admin: 01/20/18 10:03 Dose: 1,000 unit Clopidogrel Bisulfate (Plavix -) 75 mg PO DAILY [facility] Last Admin: 01/20/18 10:03 Dose: 75 mg Docusate Sodium (Colace -) 300 mg PO DAILY [facility] Last Admin: 01/20/18 10:03 Dose: 300 mg Gabapentin (Neurontin -) 600 mg PO BID [facility] Last Admin: 01/20/18 21:39 Dose: 600 mg Guaifenesin (Diabetic Tussin Dm -) 10 ml PO Q6H PRN PRN Reason: COUGH Ceftriaxone Sodium 1 gm/ (Dextrose) 50 mls @ 100 mls/hr IVPB DAILY [facility] Last Admin: 01/20/18 10:02 Dose: 100 mls/hr Insulin Aspart (Novolog Vial Sliding Scale -) 1 vial SQ ACHS [facility]; Protocol Last Admin: 01/21/18 06:08 Dose: 2 units Isosorbide Dinitrate (Isordil -) 20 mg PO TIDISORDIL [facility] Last Admin: 01/21/18 08:14 Dose: 20 mg Ondansetron HCl (Zofran Injection) 4 mg IVPUSH Q6H PRN PRN Reason: NAUSEA AND/OR VOMITING - Objective Vital Signs: Vital Signs Temperature 98.4 F 01/21/18 06:53 Pulse Rate 80 01/21/18 06:53 Respiratory Rate 20 01/21/18 06:53 Blood Pressure 130/64 01/21/18 06:53 O2 Sat by Pulse Oximetry (%) 100 01/20/18 09:00 Constitutional: Yes: No Distress, Calm, Other (depressed) Eyes: Yes: Conjunctiva Clear, EOM Intact HENT: Yes: Atraumatic, Normocephalic Neck: Yes: Supple, Trachea Midline Cardiovascular: Yes: Regular Rate and Rhythm, S1, S2 Respiratory: Yes: Regular, CTA Bilaterally Gastrointestinal: Yes: Normal Bowel Sounds, Soft, Abdomen, Obese. No: Hepatomegaly, Splenomegaly Extremities: No: Calf Tenderness Edema: No Peripheral Pulses WNL: Yes Integumentary: Yes: Other (erytem of the perirectal area, tender to touch) Neurological: Yes: Alert, Oriented Psychiatric: Yes: Alert, Oriented Labs: CBC, BMP 01/20/18 08:00 01/20/18 08:00 INR, PTT INR 1.20 (0.83-1.09) H 01/12/18 09:05 Problem List - Problems (1) Pleural effusion Assessment/Plan: CT surgeon consult, for possible pleurodesis pleural fluid was drained yesterday suggestive for transudate: added serum LDh and fluid albumin repeat gram stain pending repeat cultures pending will restart LAsix continue IV Ceftriaxone 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 right hemithorax s/p Alteplase Code(s): J90 - PLEURAL EFFUSION, NOT ELSEWHERE CLASSIFIED (2) CHF (congestive heart failure) Assessment/Plan: stopped iv hydration will restart Lasix Code(s): I50.9 - HEART FAILURE, UNSPECIFIED Qualifiers: Heart failure type: combined systolic and diastolic Heart failure chronicity: chronic Qualified Code(s): I50.42 - 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) heart failure (3) Diabetes mellitus Assessment/Plan: monitor BGM and correct with regular insulin off Glipizide for now until stable Code(s): E11.9 - TYPE 2 DIABETES MELLITUS WITHOUT COMPLICATIONS (4) Lung nodule Assessment/Plan: unclear etiology will follow up as an outpatient Code(s): R91.1 - SOLITARY PULMONARY NODULE (5) CKD (chronic kidney disease) Assessment/Plan: creatininest baseline restart Lasix poor proteo caloric status added NEPRO Code(s): N18.9 - CHRONIC KIDNEY DISEASE, UNSPECIFIED
[2018-01-21] MEDS ORDERED: FUROSEMIDE 20 MG TABLET (FP) PO ONE ×2 (10:23→11:30)
[2018-01-21] MEDS: ALLOPURINOL 100 MG TABLET (FP) PO SCH (10:28)
[2018-01-21] MEDS: CHOLECALCIFEROL (VITAMIN D3) 1,000 UNIT TABLET (FP) PO SCH (10:28)
[2018-01-21] MEDS: DOCUSATE SODIUM 100 MG CAPSULE (FP) PO SCH (10:28)
[2018-01-21] MEDS: GABAPENTIN 300 MG CAPSULE (FP) PO SCH ×2 (10:29→21:11)
[2018-01-21] MEDS: CARVEDILOL 25 MG TABLET (FP) PO SCH ×2 (10:29→21:11)
[2018-01-21] MEDS: CEFTRIAXONE 1 GM in DEXTROSE 5%-WATER - 50 ML IVPB SCH (10:29)
[2018-01-21] MEDS: CLOPIDOGREL BISULFATE 75 MG TABLET (FP) PO SCH (10:29)
[2018-01-21] MEDS: ASPIRIN 81 MG CHEWABLE TABLETS PO SCH (10:30)
[2018-01-21 11:43] LABS: LDH 207 U/L (87-241)
[2018-01-21] MEDS ORDERED: VANCOMYCIN 1 GM PREMIX - 1 GM/200 ML BAG IVPB ONE (12:30)
--- NOTE | 2018-01-21 15:00 | PN ---
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 (short form) - Note 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: no fevers day #9 ceftriaxone, day #6 vancomycin Vital Signs Period Temp Pulse Resp BP Sys/Desai Pulse Ox Last 24 Hr 98.1 F-98.6 F 70-98 16-20 116-131/57-78 100 cor-rrr lungs decreased bs at bases abd soft,nt ext no edema CBC, BMP 01/20/18 08:00 18 08:00 Microbiology 01/20/18 14:56 Gram Stain - Final Pleural Fluid 01/15/18 11:45 Blood Culture - Final Blood - Arterial NO GROWTH AFTER 5 DAYS INCUBATION 01/15/18 11:30 Blood Culture - Final Blood - Arterial NO GROWTH AFTER 5 DAYS INCUBATION imp/reccd 72 year old man with recurrent pleural effusion, s/p pleurx for about 6 months , admitted with fevers, pain at catheter site minimal drainage from catheter chest ct noted with increased infiltrate and loculated effusions s/p TPA +pleural fluid culture- ?empyema redose vancomycin today continue rocephin repeat cultures pending from pleural space, if negative in am can switch to po augmentin the prior cultures were when tube was clogged and c/w skin pathogens d/w pulmonary Problem List - Problems (1) Pneumonia Code(s): J18.9 - PNEUMONIA, UNSPECIFIED ORGANISM (2) Pleural effusion Code(s): J90 - PLEURAL EFFUSION, NOT ELSEWHERE CLASSIFIED (3) MRSA (methicillin resistant Staphylococcus aureus) colonization Code(s): Z22.322 - CARRIER OR SUSPECTED CARRIER OF METHICILLIN RESIS STAPH
--- NOTE | 2018-01-21 15:24 | PN ---
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, Physician History of Present Illness: pulmonary alert,weak,-sob,-cp - Current Medication List Current Medications: Active Medications Acetaminophen (Tylenol -) 650 mg PO Q6H PRN PRN Reason: FEVER/PAIN LEVEL 1-5 Last Admin: 01/16/18 21:26 Dose: 650 mg Allopurinol (Zyloprim -) 100 mg PO DAILY [facility] Last Admin: 01/21/18 10:28 Dose: 100 mg Aspirin (Asa -) 81 mg PO DAILY [facility] Last Admin: 01/21/18 10:30 Dose: 81 mg Atorvastatin Calcium (Lipitor -) 80 mg PO HS [facility] Last Admin: 01/20/18 21:39 Dose: 80 mg Carvedilol (Coreg -) 25 mg PO BID [facility] Last Admin: 01/21/18 10:29 Dose: 25 mg Cholecalciferol (Vitamin D3 -) 1,000 unit PO DAILY [facility] Last Admin: 01/21/18 10:28 Dose: 1,000 unit Clopidogrel Bisulfate (Plavix -) 75 mg PO DAILY [facility] Last Admin: 01/21/18 10:29 Dose: 75 mg Docusate Sodium (Colace -) 300 mg PO DAILY [facility] Last Admin: 01/21/18 10:28 Dose: 300 mg Gabapentin (Neurontin -) 600 mg PO BID [facility] Last Admin: 01/21/18 10:29 Dose: 600 mg Guaifenesin (Diabetic Tussin Dm -) 10 ml PO Q6H PRN PRN Reason: COUGH Ceftriaxone Sodium 1 gm/ (Dextrose) 50 mls @ 100 mls/hr IVPB DAILY [facility] Last Admin: 01/21/18 10:29 Dose: 100 mls/hr Insulin Aspart (Novolog Vial Sliding Scale -) 1 vial SQ ACHS [facility]; Protocol Last Admin: 01/21/18 12:30 Dose: 4 units Isosorbide Dinitrate (Isordil -) 20 mg PO TIDISORDIL [facility] Last Admin: 01/21/18 12:30 Dose: 20 mg Ondansetron HCl (Zofran Injection) 4 mg IVPUSH Q6H PRN PRN Reason: NAUSEA AND/OR VOMITING - Objective Vital Signs: Vital Signs Temperature 98.1 F 01/21/18 14:36 Pulse Rate 78 01/21/18 14:36 Respiratory Rate 18 01/21/18 14:36 Blood Pressure 116/78 01/21/18 14:36 O2 Sat by Pulse Oximetry (%) 100 01/21/18 09:00 Constitutional: Yes: Well Nourished, Calm Eyes: Yes: WNL HENT: Yes: WNL Neck: Yes: WNL Cardiovascular: Yes: Regular Rate and Rhythm, S1, S2 Respiratory: Yes: Diminished (diminished bs r base) Gastrointestinal: Yes: Normal Bowel Sounds, Soft Extremities: Yes: WNL Edema: No Labs: CBC, BMP 01/20/18 08:00 01/20/18 08:00 INR, PTT INR 1.20 (0.83-1.09) H 01/12/18 09:05 Problem List - Problems (1) CHF (congestive heart failure) Code(s): I50.9 - HEART FAILURE, UNSPECIFIED Qualifiers: Heart failure type: combined systolic and diastolic Heart failure chronicity: chronic Qualified Code(s): I50.42 - 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) heart failure (2) Pneumonia Code(s): J18.9 - PNEUMONIA, UNSPECIFIED ORGANISM (3) [id number]-[id number] kidney injury Code(s): N17.9 - ACUTE KIDNEY FAILURE, UNSPECIFIED; N18.9 - CHRONIC KIDNEY DISEASE, UNSPECIFIED (4) CKD (chronic kidney disease) Code(s): N18.9 - CHRONIC KIDNEY DISEASE, UNSPECIFIED (5) Chronic left systolic heart failure Code(s): I50.22 - CHRONIC SYSTOLIC (CONGESTIVE) HEART FAILURE (6) Diabetes Code(s): E11.9 - TYPE 2 DIABETES MELLITUS WITHOUT COMPLICATIONS (7) Leg swelling Code(s): M79.89 - OTHER SPECIFIED SOFT TISSUE DISORDERS (8) Pulmonary hypertension Code(s): I27.2 - OTHER SECONDARY PULMONARY HYPERTENSION * DO NOT USE * (9) Shortness of breath Code(s): R06.02 - SHORTNESS OF BREATH (10) CAD (coronary artery disease) Code(s): I25.10 - ATHSCL HEART DISEASE OF [place] CORONARY ARTERY W/O ANG PCTRS Qualifiers: (11) HTN (hypertension) Code(s): I10 - ESSENTIAL (PRIMARY) HYPERTENSION Qualifiers: (12) Hyperlipidemia Code(s): E78.5 - HYPERLIPIDEMIA, UNSPECIFIED Qualifiers: (13) Pleural effusion Code(s): J90 - PLEURAL EFFUSION, NOT ELSEWHERE CLASSIFIED Assessment/Plan IMP RLL PNEUMONIA LOCULATED R PLEURAL EFFUSION NEW S/P TPA CHRONIC R PLEURAL EFFUSION S/P PLEUR-X ASHD S/P MULTIPLE STENTS CHF ACUTE ON CHRONIC KIDNEY DISEASE HTN PLAN IV ABX PER ID O2 MONITOR LYTES, RENAL FUNCTION F/U CHEST X-RAY DR JENSEN Problem List - Problems (1) CHF (congestive heart failure) Code(s): I50.9 - HEART FAILURE, UNSPECIFIED Qualifiers: (2) Pneumonia Code(s): J18.9 - PNEUMONIA, UNSPECIFIED ORGANISM (3) [id number]-pucpvxu kidney injury Code(s): N17.9 - ACUTE KIDNEY FAILURE, UNSPECIFIED; N18.9 - CHRONIC KIDNEY DISEASE, UNSPECIFIED (4) CKD (chronic kidney disease) Code(s): N18.9 - CHRONIC KIDNEY DISEASE, UNSPECIFIED (5) Chronic left systolic heart failure Code(s): I50.22 - CHRONIC SYSTOLIC (CONGESTIVE) HEART FAILURE (6) Diabetes Code(s): E11.9 - TYPE 2 DIABETES MELLITUS WITHOUT COMPLICATIONS (7) Leg swelling Code(s): M79.89 - OTHER SPECIFIED SOFT TISSUE DISORDERS (8) Pulmonary hypertension Code(s): I27.2 - OTHER SECONDARY PULMONARY HYPERTENSION * DO NOT USE * (9) Shortness of breath Code(s): R06.02 - SHORTNESS OF BREATH (10) CAD (coronary artery disease) Code(s): I25.10 - ATHSCL HEART DISEASE OF [place] CORONARY ARTERY W/O ANG PCTRS Qualifiers: (11) HTN (hypertension) Code(s): I10 - ESSENTIAL (PRIMARY) HYPERTENSION Qualifiers: (12) Hyperlipidemia Code(s): E78.5 - HYPERLIPIDEMIA, UNSPECIFIED Qualifiers: (13) Pleural effusion Code(s): J90 - PLEURAL EFFUSION, NOT ELSEWHERE CLASSIFIED
[2018-01-21] MEDS ORDERED: INSULIN (NOVOLOG) ASPART 100 UNITS/ML 10ML VIAL ONE (17:12)
--- NOTE | 2018-01-21 17:40 | CONSULT ---
Consult Consult Specialty:: Thoracic Surgery Referred by:: Dr. Trujillo/Shayne/Gabriela Reason for Consultation:: Loculated pleural effusion - History of Present Illness Chief Complaint: Pleur-x not draining History of Present Illness: 72M former smoker with chronic right pleural effusion s/p pleur-x 6 months ago, DM, CAD, stents (on plavix), CHF, CRI, h/o hernia repair, admitted ~6mos ago with pleural effusion and had pleur-x placed. drained at home. Does have home oxygen but uses rarely. No weight loss or hemoptysis. Tube stopped draining. Came to ED. Had fever. TPA infused and has been here ~1 week. Culutures grew staph. Unclear whether they were drawn in sterile fashion or if this could be contaminant. 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: Peripheral Neuropathy Cardio/Vascular: Yes: CAD (prior anterolateral ND 03/1995 w/ PCI of LAD & ramus , PCI of LAD 05/1996 (with 100% occluded ramus and patent RCA), rotoblator & PCI w/ Xience stent prox LAD & prox/mid Cfx 07/30/16), CHF, Hyperlipdemia, ND ( anterolateral ND 1994), Other (CHF) Pulmonary: Yes: Pneumonia (03/2016), Other (Chronic right pleural effusion ) Gastrointestinal: Yes: GERD, Irritable Bowel Disease Renal/: Yes: Renal Inusuff, BPH, Renal Calculi Musculoskeletal: Yes: Osteoarthritis Rheumatology: Yes: Gout Endocrine: Yes: Diabetes Mellitus (with peripheral neuropathy), Other ( Hypogonadism, nodular goiter) - Past Surgical History Past Surgical History: Yes: Cataract Removal (bilateral), Hernia Repair ( umbillical) - Alcohol/Substance Use Hx Alcohol Use: No History of Substance Use: reports: None - Smoking History Smoking history: Former smoker Have you smoked in the past 12 months: No Aproximately how many cigarettes per day: 0 If you are a former smoker, when did you quit?: 35yrs ago - Social History ADL: Independent History of Recent Travel: No Home Medications - Allergies Allergies/Adverse Reactions: Allergies Allergy/AdvReac Type Severity Reaction Status Date / Time pioglitazone HCl [From Actos] Allergy Severe CHF Verified 01/12/18 07:56 - Home Medications Home Medications: Ambulatory Orders Clopidogrel Bisulfate [Plavix -] 75 mg PO DAILY tablet 09/30/17 Allopurinol [Zyloprim -] 100 mg PO DAILY 30 Days #0 tablet 10/31/17 Carvedilol [Coreg -] 25 mg PO BID #60 tablet 10/31/17 Cholecalciferol (Vitamin D3) [Vitamin D -] 1,000 unit PO DAILY 11/11/17 Gabapentin [Neurontin -] 600 mg PO BID 11/11/17 Isosorbide Dinitrate [Isordil -] 40 mg PO TID 11/11/17 Aspirin [ASA -] 81 mg PO DAILY tab.chew 11/12/17 Atorvastatin Ca [Lipitor] 80 mg PO HS tablet 11/12/17 Docusate Sodium [Colace -] 300 mg PO DAILY 11/12/17 Insulin Sliding Scale [Novolog Vial Sliding Scale -] 1 vial SQ ACHS units 11/12 Insulin Sliding Scale [Novolog Vial Sliding Scale -] 1 vial SQ BIDAC 11/12/17 Sacubitril/Valsartan [Entresto 24 mg-26 mg Tablet] 1 tab PO BID tablet Family Disease History - Family Disease History Family Disease History: Heart Disease: Father, Mother (CHF) Review of Systems - Review of Systems Constitutional: reports: No Symptoms Eyes: reports: No Symptoms HENT: reports: No Symptoms Neck: reports: No Symptoms Cardiovascular: reports: Shortness of Breath Respiratory: reports: SOB on Exertion Gastrointestinal: reports: No Symptoms Genitourinary: reports: No Symptoms Breasts: reports: No Symptoms Reported Neurological: reports: Unsteady Gait Physical Exam Vital Signs: Vital Signs Temperature 98.3 F 01/21/18 16:47 Pulse Rate 75 01/21/18 16:47 Respiratory Rate 20 01/21/18 16:47 Blood Pressure 129/62 01/21/18 16:47 O2 Sat by Pulse Oximetry (%) 100 01/21/18 09:00 Constitutional: Yes: Well Nourished Eyes: Yes: WNL Cardiovascular: Yes: Regular Rate and Rhythm Respiratory: Yes: Other (diminished breath sounds right at base; chest tube in place without erythema.) Edema: No Labs: CBC, BMP 01/20/18 08:00 01/20/18 08:00 Imaging - Results Cat Scan: Image Reviewed Problem List - Problems (1) CHF (congestive heart failure) Code(s): I50.9 - HEART FAILURE, UNSPECIFIED (2) Pleural effusion Code(s): J90 - PLEURAL EFFUSION, NOT ELSEWHERE CLASSIFIED (3) CKD (chronic kidney disease) Code(s): N18.9 - CHRONIC KIDNEY DISEASE, UNSPECIFIED (4) Diabetes Code(s): E11.9 - TYPE 2 DIABETES MELLITUS WITHOUT COMPLICATIONS (5) CAD (coronary artery disease) Code(s): I25.10 - ATHSCL HEART DISEASE OF [place] CORONARY ARTERY W/O ANG PCTRS Qualifiers: (6) Hyperlipidemia Code(s): E78.5 - HYPERLIPIDEMIA, UNSPECIFIED Qualifiers: Assessment/Plan Chronic loculated pleural effusion, pleur-x recently stopped draining, CT subtly worse than few months prior. At this time no obvious infection but grew staph. WBC count low on fluid relative to RBC's. pH was not done apparently. -Recommend continue abx x 7 day course at least; -Would continue pleur-x drainage; -Will d/w Dr. Trujillo and Dr. Marr the goals of pleur-x drainage in the future and whether he could tolerate VATS (if vats decort could remove tube after a few days but he would have to go off plavix -I would recommend discharge on outpatient abx with drainage at home. We will have to consider possible VATS in future to attempt to expand lung if Dr. Trujillo and his pharmacist believe he can tolerate this much surgery and OK to be off plavix for ~10 days total barring setbacks.
[2018-01-21] MEDS: ATORVASTATIN CA 80 MG TABLET (FP) PO SCH (21:11)
[2018-01-22] MEDS: INSULIN SLIDING SCALE (NOVOLOG) 1 VIAL SQ SCH ×4 (06:36→21:31)
[2018-01-22 07:58] LABS: BASO % 0.5 % (0-2.0); EOS % 2.1 % (0-4.5); HEMATOCRIT 28.6 % (35.4-49); HEMOGLOBIN 9.5 GM/dL (11.7-16.9); LYMPH % 15.1 % (8-40); MCH 29.9 pg (25.7-33.7); MCHC 33.2 g/dl (32.0-35.9); MONO % 10.4 % (3.8-10.2); NEUT % 71.9 % (42.8-82.8); PLATELET COUNT 222 K/MM3 (134-434); RBC 3.18 M/mm3 (4.00-5.60); RDW 14.8 % (11.9-15.9); WHITE BLOOD COUNT 5.7 K/mm3 (4.0-10.0)
[2018-01-22] MEDS ORDERED: PT OWN MED DRAWER 7, Y5N ONE (08:13)
[2018-01-22 08:30] LABS: ALBUMIN 1.4 g/dl (3.4-5.0); ANION GAP 11 MMOL/L (8-16); BLOOD UREA NITROGEN 65 mg/dL (7-18); CALCIUM 7.5 mg/dL (8.5-10.1); CHLORIDE 107 mmol/L (98-107); CO2 22 mmol/L (21-32); GLUCOSE,RANDOM 137 mg/dL (74-106); POTASSIUM 4.9 mmol/L (3.5-5.1); SODIUM 140 mmol/L (136-145)
[2018-01-22 08:34] LABS: ALK PHOS 116 U/L (45-117); BILIRUBIN,TOTAL 0.4 mg/dL (0.2-1.0); CREATININE 1.5 mg/dL (0.7-1.3); LDH 135 U/L (87-241); SGOT/AST 47 U/L (15-37); SGPT/ALT 97 U/L (12-78); TOT PROT 5.1 g/dl (6.4-8.2)
[2018-01-22] MEDS: ISOSORBIDE DINITRATE 20 MG TABLET (FP) PO SCH ×3 (08:34→17:15)
[2018-01-22] MEDS ORDERED: DEXTROSE 5%-WATER - 50 ML IVPB ONE (10:23)
[2018-01-22] MEDS ORDERED: cefTRIAXone SODIUM 1 GM VIAL ONE (10:23)
[2018-01-22] MEDS: CARVEDILOL 25 MG TABLET (FP) PO SCH ×2 (10:26→21:30)
[2018-01-22] MEDS: ASPIRIN 81 MG CHEWABLE TABLETS PO SCH (10:26)
[2018-01-22] MEDS: DOCUSATE SODIUM 100 MG CAPSULE (FP) PO SCH (10:26)
[2018-01-22] MEDS: CEFTRIAXONE 1 GM in DEXTROSE 5%-WATER - 50 ML IVPB SCH (10:27)
[2018-01-22] MEDS: CHOLECALCIFEROL (VITAMIN D3) 1,000 UNIT TABLET (FP) PO SCH (10:27)
[2018-01-22] MEDS: ALLOPURINOL 100 MG TABLET (FP) PO SCH (10:27)
[2018-01-22] MEDS: CLOPIDOGREL BISULFATE 75 MG TABLET (FP) PO SCH (10:27)
[2018-01-22] MEDS: GABAPENTIN 300 MG CAPSULE (FP) PO SCH ×2 (10:27→21:30)
--- NOTE | 2018-01-22 10:48 | PN ---
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 (short form) - Note 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: Feels overall better. Repeat pleural cultures reveal no growth after 24 hours. Minimal cough dry cough. No fevers or chills. Intake & Output 01/19/18 01/20/18 01/21/18 01/22/18 23:59 23:59 23:59 23:59 Intake Total 8523 244 9749 Output Total 970 950 300 100 Balance 710 -600 750 -100 Weight 175 lb 177 lb 3.2 oz 175 lb 3 oz 175 lb 1.6 oz Last Vital Signs Temp Pulse Resp BP Pulse Ox 98.2 F 75 20 110/61 100 01/22/18 06:00 01/22/18 06:00 01/22/18 06:00 01/22/18 06:00 01/21/18 09:00 Active Medications Acetaminophen (Tylenol -) 650 mg PO Q6H PRN PRN Reason: FEVER/PAIN LEVEL 1-5 Last Admin: 01/16/18 21:26 Dose: 650 mg Allopurinol (Zyloprim -) 100 mg PO DAILY [facility] Last Admin: 01/22/18 10:27 Dose: 100 mg Aspirin (Asa -) 81 mg PO DAILY [facility] Last Admin: 01/22/18 10:26 Dose: 81 mg Atorvastatin Calcium (Lipitor -) 80 mg PO HS [facility] Last Admin: 01/21/18 21:11 Dose: 80 mg Carvedilol (Coreg -) 25 mg PO BID [facility] Last Admin: 01/22/18 10:26 Dose: 25 mg Cholecalciferol (Vitamin D3 -) 1,000 unit PO DAILY [facility] Last Admin: 01/22/18 10:27 Dose: 1,000 unit Clopidogrel Bisulfate (Plavix -) 75 mg PO DAILY [facility] Last Admin: 01/22/18 10:27 Dose: 75 mg Docusate Sodium (Colace -) 300 mg PO DAILY [facility] Last Admin: 01/22/18 10:26 Dose: 300 mg Gabapentin (Neurontin -) 600 mg PO BID [facility] Last Admin: 01/22/18 10:27 Dose: 600 mg Guaifenesin (Diabetic Tussin Dm -) 10 ml PO Q6H PRN PRN Reason: COUGH Ceftriaxone Sodium 1 gm/ (Dextrose) 50 mls @ 100 mls/hr IVPB DAILY [facility] Last Admin: 01/22/18 10:27 Dose: 100 mls/hr Insulin Aspart (Novolog Vial Sliding Scale -) 1 vial SQ ACHS [facility]; Protocol Last Admin: 01/22/18 06:36 Dose: Not Given Isosorbide Dinitrate (Isordil -) 20 mg PO TIDISORDIL [facility] Last Admin: 01/22/18 08:34 Dose: 20 mg Ondansetron HCl (Zofran Injection) 4 mg IVPUSH Q6H PRN PRN Reason: NAUSEA AND/OR VOMITING Gen: NAD at rest Heart: RRR Lung: decreased breath sounds right base, right PleureX intact Abd: soft, nontender Ext: no edema Laboratory Results - last 24 hr 01/20/18 01/20/18 01/21/18 08:00 14:56 12:15 WBC RBC Hgb Hct MCV MCH MCHC RDW Plt Count MPV Absolute Neuts (auto) Neutrophils % Lymphocytes % Monocytes % Eosinophils % Basophils % Nucleated RBC % Sodium 137 Potassium 5.2 H Chloride 106 Carbon Dioxide 22 Anion Gap 9 BUN 65 H Creatinine 1.5 H Creat Clearance w eGFR 45.75 POC Glucometer 212 Random Glucose 140 H Calcium 7.8 L Total Bilirubin 0.5 AST 65 H ALT 117 H Alkaline Phosphatase 130 H D LD Total 207 Total Protein 5.7 L Albumin 1.6 L Pleural Fluid Source Pleural Pleural Color Red Pleural Appearance Hazy Pleural WBC 539 Pleural RBC 57,991 Pleural Neutrophils 84 Pleural Lymphocytes 14 Pleural Monocytes 1 Pleural Eosinophils 1 Pleural Total Protein 2.808 Pleural Albumin 1 Pleural LDH 444 Pleural Glucose 102.79 Pleural Amylase 28.12 Pleural Cholesterol < 50 01/21/18 01/21/18 01/22/18 17:41 21:00 06:35 WBC RBC Hgb Hct MCV MCH MCHC RDW Plt Count MPV Absolute Neuts (auto) Neutrophils % Lymphocytes % Monocytes % Eosinophils % Basophils % Nucleated RBC % Sodium Potassium Chloride Carbon Dioxide Anion Gap BUN Creatinine Creat Clearance w eGFR POC Glucometer 259 214 148 Random Glucose Calcium Total Bilirubin AST ALT Alkaline Phosphatase LD Total Total Protein Albumin Pleural Fluid Source Pleural Color Pleural Appearance Pleural WBC Pleural RBC Pleural Neutrophils Pleural Lymphocytes Pleural Monocytes Pleural Eosinophils Pleural Total Protein Pleural Albumin Pleural LDH Pleural Glucose Pleural Amylase Pleural Cholesterol 01/22/18 01/22/18 07:00 07:00 WBC 5.7 RBC 3.18 L Hgb 9.5 L Hct 28.6 L MCV 90.0 MCH 29.9 MCHC 33.2 RDW 14.8 Plt Count 222 MPV 8.0 Absolute Neuts (auto) 4.1 Neutrophils % 71.9 Lymphocytes % 15.1 D Monocytes % 10.4 H Eosinophils % 2.1 Basophils % 0.5 Nucleated RBC % 0 Sodium 140 Potassium 4.9 Chloride 107 Carbon Dioxide 22 Anion Gap 11 BUN 65 H Creatinine 1.5 H Creat Clearance w eGFR 45.75 POC Glucometer Random Glucose 137 H Calcium 7.5 L Total Bilirubin 0.4 AST 47 H D ALT 97 H Alkaline Phosphatase 116 D LD Total 135 D Total Protein 5.1 L Albumin 1.4 L Pleural Fluid Source Pleural Color Pleural Appearance Pleural WBC Pleural RBC Pleural Neutrophils Pleural Lymphocytes Pleural Monocytes Pleural Eosinophils Pleural Total Protein Pleural Albumin Pleural LDH Pleural Glucose Pleural Amylase Pleural Cholesterol A/P RLL Pneumonia Loculated R Pleural Effusion s/p pleur-x/tPA r/o Empyema CAD Acute on Chronic Renal Failure HTN LV Systolic/Diastolic Dysfunction - CTS consult noted: agree that watchful waiting at this point would be a good option. After ABX is complete and if effusion re-accumulates then VATS can be considered if cleared by Cardiology - ABX per ID - O2 to keep SpO2 >90% - DVT prophylaxis Dr Bella
--- NOTE | 2018-01-22 19:39 | PN ---
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, Physician Chief Complaint: Patient had no fever today, there is still some dry cough. He is complaining of pain in both heels, and pain in the sacral area. he did not ambulate today, History of Present Illness: 72 yo male with right hemithorax pleurx catheter since spring 2017, secondary to recurrent CHF pleural fluid came in with empyema and nonfunctioniong catheter.. Ct showed right loculated pleural fluid. Altepalse was given with improvement of the drainage. - Current Medication List Current Medications: Active Medications Acetaminophen (Tylenol -) 650 mg PO Q6H PRN PRN Reason: FEVER/PAIN LEVEL 1-5 Last Admin: 01/16/18 21:26 Dose: 650 mg Allopurinol (Zyloprim -) 100 mg PO DAILY [facility] Last Admin: 01/22/18 10:27 Dose: 100 mg Aspirin (Asa -) 81 mg PO DAILY [facility] Last Admin: 01/22/18 10:26 Dose: 81 mg Atorvastatin Calcium (Lipitor -) 80 mg PO HS [facility] Last Admin: 01/21/18 21:11 Dose: 80 mg Carvedilol (Coreg -) 25 mg PO BID [facility] Last Admin: 01/22/18 10:26 Dose: 25 mg Cholecalciferol (Vitamin D3 -) 1,000 unit PO DAILY [facility] Last Admin: 01/22/18 10:27 Dose: 1,000 unit Clopidogrel Bisulfate (Plavix -) 75 mg PO DAILY [facility] Last Admin: 01/22/18 10:27 Dose: 75 mg Docusate Sodium (Colace -) 300 mg PO DAILY [facility] Last Admin: 01/22/18 10:26 Dose: 300 mg Gabapentin (Neurontin -) 600 mg PO BID [facility] Last Admin: 01/22/18 10:27 Dose: 600 mg Guaifenesin (Diabetic Tussin Dm -) 10 ml PO Q6H PRN PRN Reason: COUGH Ceftriaxone Sodium 1 gm/ (Dextrose) 50 mls @ 100 mls/hr IVPB DAILY [facility] Last Admin: 01/22/18 10:27 Dose: 100 mls/hr Insulin Aspart (Novolog Vial Sliding Scale -) 1 vial SQ ACHS [facility]; Protocol Last Admin: 01/22/18 17:17 Dose: 2 units Isosorbide Dinitrate (Isordil -) 20 mg PO TIDISORDIL [facility] Last Admin: 01/22/18 17:15 Dose: 20 mg Ondansetron HCl (Zofran Injection) 4 mg IVPUSH Q6H PRN PRN Reason: NAUSEA AND/OR VOMITING - Objective Vital Signs: Vital Signs Temperature 98.1 F 01/22/18 17:00 Pulse Rate 76 01/22/18 17:00 Respiratory Rate 20 01/22/18 17:00 Blood Pressure 134/59 01/22/18 17:00 O2 Sat by Pulse Oximetry (%) 99 01/22/18 09:00 Constitutional: Yes: No Distress, Calm Eyes: Yes: Conjunctiva Clear, EOM Intact HENT: Yes: Atraumatic, Normocephalic Neck: Yes: Supple, Trachea Midline Cardiovascular: Yes: Regular Rate and Rhythm, S1, S2 Gastrointestinal: Yes: Normal Bowel Sounds, Soft, Abdomen, Obese. No: Hepatomegaly, Splenomegaly ...Rectal Exam: No: Mass Breast(s): Yes: WNL Extremities: No: Calf Tenderness Edema: No Peripheral Pulses WNL: Yes Neurological: Yes: Alert, Oriented Psychiatric: Yes: Alert, Oriented Labs: CBC, BMP 01/22/18 07:00 01/22/18 07:00 INR, PTT INR 1.20 (0.83-1.09) H 01/12/18 09:05 Problem List - Problems (1) Pleural effusion Assessment/Plan: CT surgeon consult was done today, conservative management advised repeat gram stain 01/20/18 showing rare PMN no bacteria repeat cultures pending restarted LAsix continue IV Ceftriaxone to be switched to Augmentin in am and discharge planning 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 right hemithorax s/p Alteplase Code(s): J90 - PLEURAL EFFUSION, NOT ELSEWHERE CLASSIFIED (2) CHF (congestive heart failure) Assessment/Plan: stopped iv hydration restarted Lasix po Code(s): I50.9 - HEART FAILURE, UNSPECIFIED Qualifiers: Heart failure type: combined systolic and diastolic Heart failure chronicity: chronic Qualified Code(s): I50.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
[2018-01-22] MEDS: ATORVASTATIN CA 80 MG TABLET (FP) PO SCH (21:30)
[2018-01-23] MEDS: INSULIN SLIDING SCALE (NOVOLOG) 1 VIAL SQ SCH ×2 (06:17→11:48)
[2018-01-23] MEDS ORDERED: PT OWN MED DRAWER 7, Y5N ONE ×2 (07:40→10:07)
[2018-01-23] MEDS: ISOSORBIDE DINITRATE 20 MG TABLET (FP) PO SCH ×2 (07:52→12:54)
[2018-01-23] MEDS ORDERED: DEXTROSE 5%-WATER - 50 ML IVPB ONE (10:08)
[2018-01-23] MEDS ORDERED: cefTRIAXone SODIUM 1 GM VIAL ONE (10:08)
[2018-01-23] MEDS: CARVEDILOL 25 MG TABLET (FP) PO SCH (10:32)
[2018-01-23] MEDS: DOCUSATE SODIUM 100 MG CAPSULE (FP) PO SCH (10:32)
[2018-01-23] MEDS: ASPIRIN 81 MG CHEWABLE TABLETS PO SCH (10:32)
[2018-01-23] MEDS: GABAPENTIN 300 MG CAPSULE (FP) PO SCH (10:33)
[2018-01-23] MEDS: CLOPIDOGREL BISULFATE 75 MG TABLET (FP) PO SCH (10:33)
[2018-01-23] MEDS: ALLOPURINOL 100 MG TABLET (FP) PO SCH (10:33)
[2018-01-23] MEDS: CHOLECALCIFEROL (VITAMIN D3) 1,000 UNIT TABLET (FP) PO SCH (10:33)
[2018-01-23] MEDS: CEFTRIAXONE 1 GM in DEXTROSE 5%-WATER - 50 ML IVPB SCH (10:34)
[2018-01-23 11:01] VITALS: TEMP 98.4
--- NOTE | 2018-01-23 11:10 | PN ---
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, Physician Chief Complaint: Patient had no fever today, there is still some dry cough. He is complaining of pain in both heels, and pain in the sacral area. He did not ambulate today yet. - Current Medication List Current Medications: Active Medications Acetaminophen (Tylenol -) 650 mg PO Q6H PRN PRN Reason: FEVER/PAIN LEVEL 1-5 Last Admin: 01/16/18 21:26 Dose: 650 mg Allopurinol (Zyloprim -) 100 mg PO DAILY [facility] Last Admin: 01/23/18 10:33 Dose: 100 mg Amoxicillin/Clavulanate Potassium (Augmentin - 875mg Tablet) 1 tab PO BID@0800, 1730 [facility] Aspirin (Asa -) 81 mg PO DAILY [facility] Last Admin: 01/23/18 10:32 Dose: 81 mg Atorvastatin Calcium (Lipitor -) 80 mg PO HS [facility] Last Admin: 01/22/18 21:30 Dose: 80 mg Carvedilol (Coreg -) 25 mg PO BID [facility] Last Admin: 01/23/18 10:32 Dose: 25 mg Cholecalciferol (Vitamin D3 -) 1,000 unit PO DAILY [facility] Last Admin: 01/23/18 10:33 Dose: 1,000 unit Clopidogrel Bisulfate (Plavix -) 75 mg PO DAILY [facility] Last Admin: 01/23/18 10:33 Dose: 75 mg Docusate Sodium (Colace -) 300 mg PO DAILY [facility] Last Admin: 01/23/18 10:32 Dose: 300 mg Gabapentin (Neurontin -) 600 mg PO BID [facility] Last Admin: 01/23/18 10:33 Dose: 600 mg Guaifenesin (Diabetic Tussin Dm -) 10 ml PO Q6H PRN PRN Reason: COUGH Ceftriaxone Sodium 1 gm/ (Dextrose) 50 mls @ 100 mls/hr IVPB DAILY [facility] Last Admin: 01/23/18 10:34 Dose: 100 mls/hr Insulin Aspart (Novolog Vial Sliding Scale -) 1 vial SQ ACHS [facility]; Protocol Last Admin: 01/23/18 06:17 Dose: 2 units Isosorbide Dinitrate (Isordil -) 20 mg PO TIDISORDIL [facility] Last Admin: 01/23/18 07:52 Dose: 20 mg Ondansetron HCl (Zofran Injection) 4 mg IVPUSH Q6H PRN PRN Reason: NAUSEA AND/OR VOMITING - Objective Vital Signs: Vital Signs Temperature 98.4 F 01/23/18 07:55 Pulse Rate 83 01/23/18 07:55 Respiratory Rate 20 01/23/18 07:55 Blood Pressure 116/50 01/23/18 07:55 O2 Sat by Pulse Oximetry (%) 99 01/22/18 21:00 Constitutional: Yes: No Distress, Calm Eyes: Yes: Conjunctiva Clear, EOM Intact HENT: Yes: Atraumatic, Normocephalic Neck: Yes: Supple, Trachea Midline Cardiovascular: Yes: Regular Rate and Rhythm, S1, S2 Respiratory: Yes: Regular, CTA Bilaterally Gastrointestinal: Yes: Normal Bowel Sounds, Soft, Abdomen, Obese. No: Hepatomegaly, Splenomegaly Genitourinary: Yes: WNL Breast(s): Yes: WNL Musculoskeletal: Yes: WNL Extremities: No: Calf Tenderness Edema: No Peripheral Pulses WNL: Yes Neurological: Yes: Alert, Oriented Psychiatric: Yes: Alert, Oriented Labs: CBC, BMP 01/22/18 07:00 01/22/18 07:00 INR, PTT INR 1.20 (0.83-1.09) H 01/12/18 09:05 Problem List - Problems (1) Pleural effusion Assessment/Plan: CT surgeon consult reviewed, conservative management advised repeat gram stain 01/20/18 showing rare PMN no bacteria repeat cultures pending but negative at 24 hours restarted LAsix stop Ceftriaxone, switched to Augmentin in am and discharge planning 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 right hemithorax s/p Alteplase Code(s): J90 - PLEURAL EFFUSION, NOT ELSEWHERE CLASSIFIED (2) CHF (congestive heart failure) Assessment/Plan: stopped iv hydration restarted Lasix po Code(s): I50.9 - HEART FAILURE, UNSPECIFIED Qualifiers: Heart failure type: combined systolic and diastolic Heart failure chronicity: chronic Qualified Code(s): I50.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
[2018-01-23] MEDS ORDERED: LACTOBACILLUS ACIDOPHILUS 1 TABLET PO SCH (11:15)
[2018-01-23 11:17] VITALS: BMI 27.6
[2018-01-23] MEDS ORDERED: INSULIN (NOVOLOG) ASPART 100 UNITS/ML 10ML VIAL ONE (11:40)
[2018-01-23 14:21] VITALS: BP 114/70; PULSE 84
[2018-01-23] MEDS ORDERED: AMOX TR/POT CLAV 875MG/125MG TABLETS (FP) PO SCH (17:30)
== END 2018-01-23 14:51 | disposition home or self-care (01) | DRG 919 ==
LOC: JER 07:44 → JERBED 16:44 → J8W 01-13 04:17
PROVIDERS: ADMIT Internal Medicine; ATTEND Internal Medicine
PROC: 0W9930Z Drainage of Right Pleural Cavity with Drainage Device, Percutaneous Approach (ICD-10-PCS; principal; 2018-01-13)
DX: T85.618A Breakdown (mechanical) of other specified internal prosthetic devices, implants and grafts, initial encounter (principal); J18.9 Pneumonia, unspecified organism; J86.9 Pyothorax without fistula; J90 Pleural effusion, not elsewhere classified; E23.0 Hypopituitarism; N17.9 Acute kidney failure, unspecified; M51.06 Intervertebral disc disorders with myelopathy, lumbar region; I13.0 Hypertensive heart and chronic kidney disease with heart failure and stage 1 through stage 4 chronic kidney disease, or unspecified chronic kidney disease; I50.42 Chronic combined systolic (congestive) and diastolic (congestive) heart failure; I25.10 Atherosclerotic heart disease of native coronary artery without angina pectoris; K21.9 Gastro-esophageal reflux disease without esophagitis; N40.0 Benign prostatic hyperplasia without lower urinary tract symptoms; K58.9 Irritable bowel syndrome, unspecified; M19.90 Unspecified osteoarthritis, unspecified site; M10.9 Gout, unspecified; E11.42 Type 2 diabetes mellitus with diabetic polyneuropathy; E04.9 Nontoxic goiter, unspecified; E78.5 Hyperlipidemia, unspecified; I25.2 Old myocardial infarction; I27.20 Pulmonary hypertension, unspecified; M79.89 Other specified soft tissue disorders; R06.02 Shortness of breath; E66.8 Other obesity; Z68.27 Body mass index [BMI] 27.0-27.9, adult; M54.10 Radiculopathy, site unspecified; R91.1 Solitary pulmonary nodule; W18.39XA Other fall on same level, initial encounter; Y92.231 Patient bathroom in hospital as the place of occurrence of the external cause; E11.22 Type 2 diabetes mellitus with diabetic chronic kidney disease; N18.9 Chronic kidney disease, unspecified; Z87.442 Personal history of urinary calculi; Y83.8 Other surgical procedures as the cause of abnormal reaction of the patient, or of later complication, without mention of misadventure at the time of the procedure; Y92.89 Other specified places as the place of occurrence of the external cause; I95.1 Orthostatic hypotension; B95.62 Methicillin resistant Staphylococcus aureus infection as the cause of diseases classified elsewhere
CPT/HCPCS: 32555; 36415; 36593; 71045-TC-FY; 71046-TC-FY; 71250-TC; 76098-TC-FY; 76604-TC; 76700-TC; 80053; 81003; 81015; 82042; 82150; 82945; 82962; 83615; 83880; 84157; 84311; 85025; 85027; 85610; 87040; 87070; 87075; 87077; 87081; 87186; 87205; 87899; 89051; 93005; 93010; 97116-GP; 97161-GP; 99284-25; G0480

== ENCOUNTER 2018-01-28 15:37 | Inpatient (IN) | payer OTHER, BC ==
--- NOTE | 2018-01-28 16:34 | PDOC ---
History of Present Illness - History of Present Illness Initial Comments: 01/28/18 18:06 The patient is a 72 year old male with past medical history of right pleural effusion s/p pleur-x, diabetes, CAD s/p stenting (on Plavix), COPD, CHF, CRI, history of hernia repair who was sent in by Dr. Mondragon for clogged lung catheter in right lung pleurivac. As per , they usually drain the catheter every few days without issues, but the past few days they havent been able to get any fluid out. The patient was seen in the ED two weeks ago for a similar occurrence requiring TPA to remove the blockage. In the ED the patient states he is becoming increasingly short of breath but denies any other complaints. Denies any fever or chills. PCP: Dr. Mondragon Pulm: Dr. Trujillo <Marla Dawson - Last Filed: 01/28/18 18:59> - General History Source: Patient Exam Limitations: No Limitations <Tram Tam - Last Filed: 01/28/18 19:26> - General Chief Complaint: Revisit,Radiology Variance Stated Complaint: ADMITT PT BY DOCTOR Time Seen by Provider: 01/28/18 16:34 Past History <Maral Dawson - Last Filed: 01/28/18 18:59> - Past Medical History Anemia: No Asthma: No Cancer: Yes (skin) Cardiac Disorders: Yes (cad- cardiac cath, 6 stents total) CVA: No COPD: Yes CHF: Yes DVT: No Dementia: No Diabetes: Yes Dialysis: No (CKD) GI Disorders: No Disorders: No HTN: Yes Hypercholesterolemia: Yes Liver Disease: No Seizures: No Thyroid Disease: No - Surgical History Abdominal Surgery: Yes (HERNIA repair) Appendectomy: No Cardiac Surgery: Yes (STENTS 95/96, 07/2016) Cholecystectomy: No Lung Surgery: Yes (bronchoscopy 03/17, right chest pleural catheter) Neurologic Surgery: No Orthopedic Surgery: No - Immunization History Td Vaccination: Yes Immunization Up to Date: Yes - Suicide/Smoking/Psychosocial Hx Smoking Status: No Smoking History: Former smoker Have you smoked in the past 12 months: No Number of Cigarettes Smoked Daily: 0 If you are a former smoker, when did you quit?: 35yrs ago Information on smoking cessation initiated: No 'Breaking Loose' booklet given: 08/15/15 Hx Alcohol Use: No Drug/Substance Use Hx: No Substance Use Type: None Hx Substance Use Treatment: No <Tram Tam - Last Filed: 01/28/18 19:26> - Past Medical History Allergies/Adverse Reactions: Allergies Allergy/AdvReac Type Severity Reaction Status Date / Time pioglitazone HCl [From Actos] Allergy Severe CHF Verified 01/28/18 15:55 Home Medications: Ambulatory Orders Clopidogrel Bisulfate [Plavix -] 75 mg PO DAILY tablet 09/30/17 Gabapentin [Neurontin -] 600 mg PO BID 11/11/17 Isosorbide Dinitrate [Isordil -] 40 mg PO TID 11/11/17 Docusate Sodium [Colace -] 300 mg PO DAILY 11/12/17 Acetaminophen [Tylenol .Regular Strength -] 650 mg PO Q6H PRN tablet 01/23/18 Allopurinol [Zyloprim -] 100 mg PO DAILY tablet 01/23/18 Aspirin [ASA -] 81 mg PO DAILY tab.chew 01/23/18 Atorvastatin Ca [Lipitor] 80 mg PO HS tablet 01/23/18 Carvedilol [Coreg -] 25 mg PO BID tablet 01/23/18 Cholecalciferol (Vitamin D3) [Vitamin D3 -] 1,000 unit PO DAILY tab 01/23/18 Isosorbide Dinitrate [Isordil -] 20 mg PO TIDISORDIL tablet 01/23/18 Review of Systems - Review of Systems Able to Perform ROS?: Yes Comments:: 01/28/18 18:06 GENERAL/CONSTITUTIONAL: No fever or chills. No weakness. HEAD, EYES, EARS, NOSE AND THROAT: No change in vision. No ear pain or discharge. No sore throat. CARDIOVASCULAR: No chest pain. RESPIRATORY: (+) SOB. No cough, wheezing, or hemoptysis. GASTROINTESTINAL: No nausea, vomiting, diarrhea or constipation. GENITOURINARY: No dysuria, frequency, or change in urination. MUSCULOSKELETAL: No joint or muscle swelling or pain. No neck or back pain. SKIN: No rash NEUROLOGIC: No headache, vertigo, loss of consciousness, or change in strength/ sensation. ENDOCRINE: No increased thirst. No abnormal weight change. HEMATOLOGIC/LYMPHATIC: No anemia, easy bleeding, or history of blood clots. ALLERGIC/IMMUNOLOGIC: No hives or skin allergy. All Other Systems: Reviewed and Negative <Maral Dawson - Last Filed: 01/28/18 18:59> *Physical Exam - Vital Signs Last Vital Signs Temp Pulse Resp BP Pulse Ox 98.9 F 79 19 142/75 95 01/28/18 15:56 01/28/18 15:56 01/28/18 15:56 01/28/18 15:56 01/28/18 15:56 - Physical Exam Comments: 01/28/18 18:07 GENERAL: Awake, alert, and fully oriented, in no acute distress HEAD: No signs of trauma EYES: PERRLA, EOMI, sclera anicteric, conjunctiva clear ENT: Auricles normal inspection, hearing grossly normal, nares patent, oropharynx clear without exudates. Moist mucosa NECK: Normal ROM, supple, no lymphadenopathy, JVD, or masses LUNGS: Decreased breath sounds at right base. No wheezes, and no crackles HEART: Regular rate and rhythm, normal S1 and S2, no murmurs, rubs or gallops ABDOMEN: Soft, nontender, normoactive bowel sounds. No guarding, no rebound. No masses EXTREMITIES: Normal range of motion, no edema. No clubbing or cyanosis. No cords, erythema, or tenderness NEUROLOGICAL: Cranial nerves II through XII grossly intact. Normal speech, normal gait SKIN: Warm, Dry, normal turgor, no rashes or lesions noted. <Maral Dawson - Last Filed: 01/28/18 18:59> - Vital Signs Last Vital Signs Temp Pulse Resp BP Pulse Ox 98.9 F 79 19 142/75 95 01/28/18 15:56 01/28/18 15:56 01/28/18 15:56 01/28/18 15:56 01/28/18 15:56 <Tram Tam - Last Filed: 01/28/18 19:26> ED Treatment Course - LABORATORY CBC & Chemistry Diagram: 01/28/18 17:07 01/28/18 17:07 <Maral Dawson - Last Filed: 01/28/18 18:59> - LABORATORY CBC & Chemistry Diagram: 01/28/18 17:07 01/28/18 17:07 <Tram Tam - Last Filed: 01/28/18 19:26> Medical Decision Making - Medical Decision Making 01/28/18 18:59 Phone call placed to Dr. Mondragon, and call was returned promptly. Case was discussed. Phone call placed to Dr. Vale, awaiting call back. <Maral Dawson - Last Filed: 01/28/18 18:59> - Medical Decision Making 01/28/18 17:10 Mr Davis is a 72 yo M former smoker with chronic right pleural effusion s/p pleur -x 6 months ago, DM, CAD, stents (on plavix), CHF, CRI. Pleurex typically drains 1L every 2-3 days. Pt was admitted to the hospital recently due to cathether dysfunction TPA injected with minimal improvement Pt found to have a multiloculated effusion (Culutures grew staph? contaminant) Pt was sent in to the ER due to decreased return of fluid No fevers or chills Pt states minimal activity --> shortness of brath On exam: Pt awake and alert Speaking with clear and complete sentences RRR Lungs: decreased breath sounds on right side otherwise, lungs clear Will do labs CXR Will admit EKG: SR rate of 84 bpm, Let axis deviation, no st elevations or depression, incomplete RBBB, no st elevations, prominent anterior T waves 01/28/18 19:[address] Morrison HOLD PLAVIX for possible intervention Recommends CT chest Recommends IR consult for possible TPA tomorrow States VATS would only be pursued if space is infected <Tram Tam - Last Filed: 01/28/18 19:26> *DC/Admit/Observation/Transfer - Attestations Scribe Attestion: 01/28/18 18:08 Documentation prepared by Maral Dawson, acting as claim review medical director for Tram Tam MD. <Maral Dawson - Last Filed: 01/28/18 18:59> - Discharge Dispostion Decision to Admit order: Yes <Tram Tam - Last Filed: 01/28/18 19:26> Diagnosis at time of Disposition: Pleural effusion - Discharge Dispostion Condition at time of disposition: Stable - Referrals Referrals: Siobhan Mondragon MD [Primary Care Provider] - - Patient Instructions - Post Discharge Activity
[2018-01-28 18:01] LABS: BASO % 0.6 % (0-2.0); EOS % 1.6 % (0-4.5); HEMATOCRIT 29.1 % (35.4-49); HEMOGLOBIN 9.7 GM/dL (11.7-16.9); LYMPH % 13.2 % (8-40); MCHC 33.3 g/dl (32.0-35.9); MEAN CELL VOLUME 90.1 fl (80-96); MEAN PLT VOLUME 8.4 fl (7.5-11.1); MONO % 8.8 % (3.8-10.2); NEUT % 75.8 % (42.8-82.8); PLATELET COUNT 314 K/MM3 (134-434); RBC 3.23 M/mm3 (4.00-5.60); RDW 15.1 % (11.9-15.9); WHITE BLOOD COUNT 5.7 K/mm3 (4.0-10.0)
[2018-01-28 18:33] LABS: CHLORIDE 109 mmol/L (98-107); SODIUM 142 mmol/L (136-145)
[2018-01-28 18:39] LABS: ALBUMIN 1.8 g/dl (3.4-5.0); ALK PHOS 128 U/L (45-117); ANION GAP 9 MMOL/L (8-16); BILIRUBIN,TOTAL 0.6 mg/dL (0.2-1.0); BLOOD UREA NITROGEN 47 mg/dL (7-18); CO2 24 mmol/L (21-32); CREATININE 1.2 mg/dL (0.7-1.3); GLUCOSE,RANDOM 187 mg/dL (74-106); SGPT/ALT 65 U/L (12-78); TOT PROT 6.4 g/dl (6.4-8.2)
[2018-01-28 18:44] LABS: POTASSIUM 5.8 mmol/L (3.5-5.1)
[2018-01-28 18:45] LABS: SGOT/AST 34 U/L (15-37)
[2018-01-28 19:01] LABS: INR 1.2 (0.83-1.09); PROTHROMBIN TIME (PATIENT) 13.6 SEC (9.7-13.0)
--- NOTE | 2018-01-28 21:17 | HP ---
Admitting History and Physical - Admission Chief Complaint: no fluid draining form the Pleurx catheter History of Present Illness: 72 yo male recently discharged from the hospital for infected pleural fluid and minimal pleural drain due to clotted Pleurx, presented to my office for a follow up post discharge. The patient had difficulty draining since the discharge. The amount of fluid is scanty, hemorrhagic and with "gel" like consistency. There is no dyspnea but the patient's lower extremities became edematous. He is coming in for further treatment. History Source: Patient Limitations to Obtaining History: No Limitations - Past Medical History [employer]ER: Yes: Peripheral Neuropathy Cardiovascular: Yes: CAD (prior anterolateral [place] 03/1995 w/ PCI of LAD & ramus, PCI of LAD 05/1996 (with 100% occluded ramus and patent RCA), rotoblator & PCI w / Xience stent prox LAD & prox/mid Cfx 07/30/16), CHF, Hyperlipdemia, [place] ( anterolateral [place] 1994), Other (CHF) Pulmonary: Yes: Pneumonia (03/2016), Other (Chronic right pleural effusion ) Gastrointestinal: Yes: GERD, Irritable Bowel Disease Renal/: Yes: Renal Inusuff, BPH, Renal Calculi Musculoskeletal: Yes: Osteoarthritis Rheumatology: Yes: Gout Endocrine: Yes: Diabetes Mellitus (with peripheral neuropathy), Other ( Hypogonadism, nodular goiter) - Past Surgical History Past Surgical History: Yes: Cataract Removal (bilateral), Hernia Repair ( umbillical) - Smoking History Smoking history: Former smoker Have you smoked in the past 12 months: No Aproximately how many cigarettes per day: 0 If you are a former smoker, when did you quit?: 35yrs ago - Alcohol/Substance Use Hx Alcohol Use: No History of Substance Use: reports: None - Social History ADL: Independent History of Recent Travel: No Home Medications - Allergies Allergies/Adverse Reactions: Allergies Allergy/AdvReac Type Severity Reaction Status Date / Time pioglitazone HCl [From Actos] Allergy Severe CHF Verified 01/28/18 15:55 - Home Medications Home Medications: Ambulatory Orders Clopidogrel Bisulfate [Plavix -] 75 mg PO DAILY tablet 09/30/17 Gabapentin [Neurontin -] 600 mg PO BID 11/11/17 Isosorbide Dinitrate [Isordil -] 40 mg PO TID 11/11/17 Docusate Sodium [Colace -] 300 mg PO DAILY 11/12/17 Acetaminophen [Tylenol .Regular Strength -] 650 mg PO Q6H PRN tablet 01/23/18 Allopurinol [Zyloprim -] 100 mg PO DAILY tablet 01/23/18 Aspirin [ASA -] 81 mg PO DAILY tab.chew 01/23/18 Atorvastatin Ca [Lipitor] 80 mg PO HS tablet 01/23/18 Carvedilol [Coreg -] 25 mg PO BID tablet 01/23/18 Cholecalciferol (Vitamin D3) [Vitamin D3 -] 1,000 unit PO DAILY tab 01/23/18 Isosorbide Dinitrate [Isordil -] 20 mg PO TIDISORDIL tablet 01/23/18 Family Disease History - Family Disease History Family Disease History: Heart Disease: Father, Mother (CHF) Review of Systems - Review of Systems Constitutional: reports: No Symptoms Eyes: reports: No Symptoms HENT: reports: No Symptoms Neck: reports: No Symptoms Cardiovascular: reports: Edema, Other (minimal dyspnea). denies: Palpitations Gastrointestinal: reports: No Symptoms Breasts: reports: No Symptoms Reported Musculoskeletal: reports: No Symptoms Neurological: reports: No Symptoms Endocrine: reports: No Symptoms Hematology/Lymphatic: reports: No Symptoms Psychiatric: reports: No Symptoms Physical Examination Vital Signs: Vital Signs Temperature 98.9 F 01/28/18 15:56 Pulse Rate 79 01/28/18 15:56 Respiratory Rate 19 01/28/18 15:56 Blood Pressure 142/75 01/28/18 15:56 O2 Sat by Pulse Oximetry (%) 95 01/28/18 15:56 Labs: CBC, BMP 01/28/18 17:07 01/28/18 17:07 Imaging - Results Chest X-ray: Other (right pleural effusion) Problem List - Problems (1) Pleural effusion Assessment/Plan: VATS being considered Code(s): J90 - PLEURAL EFFUSION, NOT ELSEWHERE CLASSIFIED (2) CHF (congestive heart failure) Assessment/Plan: LAsix 40 mg po daily Code(s): I50.9 - HEART FAILURE, UNSPECIFIED Qualifiers: Heart failure type: combined systolic and diastolic Heart failure chronicity: chronic Qualified Code(s): I50.42 - 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) heart failure (3) CKD (chronic kidney disease) Assessment/Plan: KAyexalate 15 gm po once Code(s): N18.9 - CHRONIC KIDNEY DISEASE, UNSPECIFIED (4) Diabetes mellitus type 2 with complications Code(s): E11.8 - TYPE 2 DIABETES MELLITUS WITH UNSPECIFIED COMPLICATIONS
[2018-01-28] MEDS ORDERED: FUROSEMIDE 40 MG/4 ML INJECTABLE VIAL IVPUSH SCH (22:00)
[2018-01-28] MEDS: ATORVASTATIN CA 80 MG TABLET (FP) PO SCH (22:30)
[2018-01-28] MEDS: CARVEDILOL 25 MG TABLET (FP) PO SCH (22:30)
[2018-01-28] MEDS: GABAPENTIN 300 MG CAPSULE (FP) PO SCH (22:30)
[2018-01-28] MEDS: INSULIN SLIDING SCALE (NOVOLOG) 1 VIAL SQ SCH (23:00)
[2018-01-28] MEDS ORDERED: CARVEDILOL 12.5 MG TABLET (FP) ONE (23:13)
[2018-01-28] MEDS ORDERED: INSULIN (NOVOLOG) ASPART 100 UNITS/ML 10ML VIAL ONE (23:14)
[2018-01-28] MEDS ORDERED: GABAPENTIN 100 MG CAPSULE (FP) ONE (23:14)
[2018-01-28] MEDS ORDERED: FUROSEMIDE 40 MG/4 ML INJECTABLE VIAL ONE (23:14)
[2018-01-28] MEDS: ISOSORBIDE DINITRATE 20 MG TABLET (FP) PO SCH (23:30)
[2018-01-29 00:41] LABS: URINE APPEARANCE SLCLOUDY; URINE BILIRUBIN NEGATIVE (<2.0 mg/dL); URINE COLOR YELLOW; URINE GLUCOSE (UA) 1+ (NEGATIVE); URINE KETONE NEGATIVE (NEGATIVE); URINE LEUK ESTERASE TRACE (NEGATIVE); URINE NITRITE NEGATIVE (NEGATIVE); URINE UROBILINOGEN NEGATIVE mg/dL (0.2-1.0)
[2018-01-29 01:04] LABS: URINE PROTEIN 2+ (NEGATIVE)
[2018-01-29 01:05] LABS: EPI CELLS RARE /HPF (FEW); URINE MUCUS RARE
[2018-01-29 04:56] VITALS: BMI 27.3
[2018-01-29] MEDS ORDERED: PT OWN MED DRAWER 7, Y5N ONE ×2 (06:24→09:28)
[2018-01-29] MEDS: ISOSORBIDE DINITRATE 20 MG TABLET (FP) PO SCH ×3 (06:57→21:56)
[2018-01-29] MEDS: INSULIN SLIDING SCALE (NOVOLOG) 1 VIAL SQ SCH ×4 (07:00→21:57)
[2018-01-29 07:25] LABS: BASO % 0.5 % (0-2.0); EOS % 1.3 % (0-4.5); HEMATOCRIT 26.6 % (35.4-49); HEMOGLOBIN 8.8 GM/dL (11.7-16.9); LYMPH % 13.1 % (8-40); MCH 29.9 pg (25.7-33.7); MEAN CELL VOLUME 90.5 fl (80-96); MEAN PLT VOLUME 7.6 fl (7.5-11.1); MONO % 8.9 % (3.8-10.2); NEUT % 76.2 % (42.8-82.8); PLATELET COUNT 261 K/MM3 (134-434); RBC 2.94 M/mm3 (4.00-5.60); RDW 14.7 % (11.9-15.9); WHITE BLOOD COUNT 6.9 K/mm3 (4.0-10.0)
[2018-01-29 08:08] LABS: ALBUMIN 1.6 g/dl (3.4-5.0); ANION GAP 7 MMOL/L (8-16); BLOOD UREA NITROGEN 39 mg/dL (7-18); CALCIUM 7.6 mg/dL (8.5-10.1); CHLORIDE 110 mmol/L (98-107); CO2 25 mmol/L (21-32); GLUCOSE,RANDOM 99 mg/dL (74-106); SODIUM 142 mmol/L (136-145)
[2018-01-29 08:12] LABS: ALK PHOS 112 U/L (45-117); BILIRUBIN,TOTAL 0.6 mg/dL (0.2-1.0); CREATININE 1.2 mg/dL (0.7-1.3); SGPT/ALT 54 U/L (12-78); TOT PROT 5.8 g/dl (6.4-8.2)
[2018-01-29 08:14] LABS: POTASSIUM 5.2 mmol/L (3.5-5.1); SGOT/AST 30 U/L (15-37)
[2018-01-29] MEDS ORDERED: DEXTROSE 5%-0.45% SALINE 1,000 ML IV SCH (08:15)
[2018-01-29] MEDS ORDERED: SODIUM POLYSTYRENE SULFONATE 15 GM/60 ML BOTTLE PO ONE (08:30)
[2018-01-29] MEDS: CARVEDILOL 25 MG TABLET (FP) PO SCH ×2 (09:49→21:56)
[2018-01-29] MEDS: ALLOPURINOL 100 MG TABLET (FP) PO SCH (09:49)
[2018-01-29] MEDS: GABAPENTIN 300 MG CAPSULE (FP) PO SCH ×2 (09:49→21:56)
[2018-01-29] MEDS ORDERED: PNEUMOC 13-VAL CONJ-DIP CRM/PF 0.5 ML DISP.SYRIN IM ONE (10:00)
--- NOTE | 2018-01-29 11:18 | CON.CARD ---
Consult Consult Specialty:: Cardiology Referred by:: Siobhan Mondragon MD Reason for Consultation:: Pre-operative CV evaluation - History of Present Illness Chief Complaint: Loculated right effusion pre-VATS History of Present Illness: cc: Loculated pleural effusion and Pleur-x not draining History of Present Illness: 72M former smoker with h/o CAD s/p multivessel stents, DM, HTN, systolic dysfunction with pulm HTN, chronic right pleural effusion s/p pleur-x 6 months ago, CKD, h/o hernia repair, developed ~6mos ago with right pleural effusion and had pleur-x placed. drained at home. Does have home oxygen but uses rarely. No weight loss or hemoptysis. Tube stopped draining with fever TPA infused. Culutures grew staph. Unclear whether they were drawn in sterile fashion or if this could be contaminant, treated with course of abx for presumptive RLL PNA re-presents for minimal pleural drainage without fevers. He denies chest pain, dyspnea worse than baseline, palpitations, near or true syncope, orthopnea, PND or worsening LE edema, dry weight 170 lbs. 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 [facility] - History Source History Provided By: Patient Limitations to Obtaining History: No Limitations - Past Medical History PHYS THER: Yes: Peripheral Neuropathy Cardio/Vascular: Yes: CAD (prior anterolateral [place] 03/1995 w/ PCI of LAD & ramus , PCI of LAD 05/1996 (with 100% occluded ramus and patent RCA), rotoblator & PCI w/ Xience stent prox LAD & prox/mid Cfx 07/30/16), CHF, Hyperlipdemia, [place] ( anterolateral [place] 1994), Other (CHF) Pulmonary: Yes: Pneumonia (03/2016), Other (Chronic right pleural effusion ) Gastrointestinal: Yes: GERD, Irritable Bowel Disease Renal/: Yes: Renal Inusuff, BPH, Renal Calculi Musculoskeletal: Yes: Osteoarthritis Rheumatology: Yes: Gout Endocrine: Yes: Diabetes Mellitus (with peripheral neuropathy), Other ( Hypogonadism, nodular goiter) - Past Surgical History Past Surgical History: Yes: Cataract Removal (bilateral), Hernia Repair ( umbillical) - Alcohol/Substance Use Hx Alcohol Use: No History of Substance Use: reports: None - Smoking History Smoking history: Former smoker Have you smoked in the past 12 months: No Aproximately how many cigarettes per day: 0 If you are a former smoker, when did you quit?: 35yrs ago - Social History ADL: Independent History of Recent Travel: No Home Medications - Allergies Allergies/Adverse Reactions: Allergies Allergy/AdvReac Type Severity Reaction Status Date / Time pioglitazone HCl [From Actos] Allergy Severe CHF Verified 01/28/18 15:55 - Home Medications Home Medications: Ambulatory Orders Clopidogrel Bisulfate [Plavix -] 75 mg PO DAILY tablet 09/30/17 Gabapentin [Neurontin -] 600 mg PO BID 11/11/17 Isosorbide Dinitrate [Isordil -] 40 mg PO TID 11/11/17 Docusate Sodium [Colace -] 300 mg PO DAILY 11/12/17 Acetaminophen [Tylenol .Regular Strength -] 650 mg PO Q6H PRN tablet 01/23/18 Allopurinol [Zyloprim -] 100 mg PO DAILY tablet 01/23/18 Aspirin [ASA -] 81 mg PO DAILY tab.chew 01/23/18 Atorvastatin Ca [Lipitor] 80 mg PO HS tablet 01/23/18 Carvedilol [Coreg -] 25 mg PO BID tablet 01/23/18 Cholecalciferol (Vitamin D3) [Vitamin D3 -] 1,000 unit PO DAILY tab 01/23/18 Isosorbide Dinitrate [Isordil -] 20 mg PO TIDISORDIL tablet 01/23/18 Family Disease History - Family Disease History Family Disease History: Heart Disease: Father, Mother (CHF) Review of Systems - Review of Systems Respiratory: reports: Other (Loculated right pleural effusion with non- funtioning PleurX catheter) Vital Signs: Vital Signs Temperature 97.9 F 01/29/18 09:39 Pulse Rate 82 01/29/18 09:39 Respiratory Rate 18 01/29/18 09:39 Blood Pressure 117/56 01/29/18 09:39 O2 Sat by Pulse Oximetry (%) 98 01/29/18 10:00 Constitutional: Yes: No Distress, Calm, Thin Neck: Yes: Supple Respiratory: Yes: Regular, Diminished Gastrointestinal: Yes: Normal Bowel Sounds, Soft Cardiovascular: Yes: Regular Rate and Rhythm JVD: No Carotid Bruit: No Heart Sounds: Yes: S1, S2 Edema: No - Other Data Labs, Other Data: CBC, BMP 01/29/18 06:10 01/29/18 06:10 INR, PTT INR 1.20 (0.83-1.09) H 01/28/18 17:07 NSR @ 84 LAD, IRBBB Imaging - Results Cat Scan: Report Reviewed (Loculated right effusion) Problem List - Problems (1) S/P coronary artery stent placement Code(s): Z95.5 - PRESENCE OF CORONARY ANGIOPLASTY IMPLANT AND GRAFT (2) Old myocardial infarction Code(s): I25.2 - OLD MYOCARDIAL INFARCTION (3) Pre-operative cardiovascular examination Code(s): Z01.810 - ENCOUNTER FOR PREPROCEDURAL CARDIOVASCULAR EXAMINATION (4) Pleural effusion Code(s): J90 - PLEURAL EFFUSION, NOT ELSEWHERE CLASSIFIED (5) CKD (chronic kidney disease) Code(s): N18.9 - CHRONIC KIDNEY DISEASE, UNSPECIFIED Qualifiers: Chronic kidney disease stage: stage 2 (mild) Qualified Code(s): N18.2 - Chronic kidney disease, stage 2 (mild) (6) CAD (coronary artery disease) Code(s): I25.10 - ATHSCL HEART DISEASE OF [place] CORONARY ARTERY W/O ANG PCTRS Qualifiers: Coronary Disease-Associated Artery/Lesion type: [place] artery [place] vs. transplanted heart: [place] heart Associated angina: without angina Qualified Code(s): I25.10 - Atherosclerotic heart disease of [place] coronary artery without angina pectoris (7) HTN (hypertension) Code(s): I10 - ESSENTIAL (PRIMARY) HYPERTENSION Qualifiers: Hypertension type: essential hypertension Qualified Code(s): I10 - Essential (primary) hypertension (8) Hyperlipidemia Code(s): E78.5 - HYPERLIPIDEMIA, UNSPECIFIED Qualifiers: Hyperlipidemia type: pure hypercholesterolemia Qualified Code(s): E78.00 - Pure hypercholesterolemia, unspecified; E78.0 - Pure hypercholesterolemia (9) Insulin dependent diabetes mellitus Code(s): E11.9 - TYPE 2 DIABETES MELLITUS WITHOUT COMPLICATIONS; Z79.4 - DETENTION (CURRENT) USE OF INSULIN (10) Diastolic dysfunction without heart failure Code(s): I51.89 - OTHER ILL-DEFINED HEART DISEASES Assessment/Plan 10/17 Echo: Normal LV size and low normal LVEF 50% improved from 07/2016 Rotablation [place]ATT prox LAD, prox LCx and mid LCx for ISR with improvement on LV fxn s/p anterolateral [place] s/p BMS LAD, ramus [place] s/p BMS LCx 1. Pre-operative cardiovascular evaluation prior to possible VATS in future to attempt to expand lung with chronic loculated non-draining right effusion despite TPA 2. CAD h/o [place], s/p multivessel stent 3. Type 2 DM 4. HTN 5. Diastolic dysfunction, pulm HTN 6. CKD with h/o hyperkalemia on entresto since d/siomn P:1. Given absence of acute coronary syndrome, decompensated CHF or malignant arrhythmia, may proceed with VATS decortication from CV-standpoint without further testing. Regarding Plavix use, he had most recent stents placed 07/2016 greater than one year ago so Plavix may be held for 5 days prior and resumed 5 days post per CTS. However, given the proximal nature of his LAD and LCx stents would recommend continuation of ASA 81 qd during the perioperative period if at all possible to decrease risk of catastrophic very late stent thrombosis off both antiplatelet agents. 2. Continue ASA 81 qd, Lipitor 80 qd, carvedilol 25 bid, isordil 40 tid, not on YUKI-I/ARB due to hyperkalemia 3. Patient has plans for Lexiscan MIBI at Dr. Chacon's office later in year, he saw him last December 01, 2017 4. Thank you for consultative opportunity
--- NOTE | 2018-01-29 11:52 | EKG ---
Test Reason : Blood Pressure : / mmHG Vent. Rate : 084 BPM Atrial Rate : 084 BPM P-R Int : 182 ms QRS Dur : 114 ms QT Int : 384 ms P-R-T Axes : 044 -45 100 degrees QTc Int : 453 ms NORMAL SINUS RHYTHM LEFT AXIS DEVIATION INCOMPLETE RIGHT BUNDLE BRANCH BLOCK SEPTAL INFARCT (CITED ON OR BEFORE 06-AUG-2017) ABNORMAL ECG WHEN COMPARED WITH ECG OF 12-JAN-2018 09:11, QUESTIONABLE CHANGE IN INITIAL FORCES OF ANTEROSEPTAL LEADS T WAVE INVERSION LESS EVIDENT IN LATERAL LEADS Confirmed by ROSEMARY BILLINGSLEY MD ([id number]) on 01/29/2018 11:51:38 AM Referred By: Confirmed By:ROSEMARY BILLINGSLEY MD
--- NOTE | 2018-01-29 12:32 | CONSULT ---
- Consultation REQUESTING PROVIDER: CONSULT REQUEST: We have been asked to surgically evaluate this patient for chronic Right pleural effusion and non functioning pleurex catheter PCP:Siobhan Mondragon HISTORY OF PRESENT ILLNESS: 72yo M h/o chronic Right pleural effusion s/p pleurex catheter known to CT surgery service. Pt was admitted recently for worsening leg swelling and concern for fluid overload. Pt states that he has not been able to drain his pleurex for 5 days and only thick gel comes out when he tries. Pt denies worsening SOB, is currently on nasal canula O2, but is also on home O2. Pt states that he is able to walk around his home without SOB. Denies fever, chills, n/v. PMHx: CAD, CHF, CKD Home Medications Medication Instructions Recorded Clopidogrel Bisulfate [Plavix -] 75 mg PO DAILY tablet 09/30/17 Gabapentin [Neurontin -] 600 mg PO BID 11/11/17 Isosorbide Dinitrate [Isordil -] 40 mg PO TID 11/11/17 Docusate Sodium [Colace -] 300 mg PO DAILY 11/12/17 Acetaminophen [Tylenol .Regular 650 mg PO Q6H PRN tablet 01/23/18 Strength -] Allopurinol [Zyloprim -] 100 mg PO DAILY tablet 01/23/18 Aspirin [ASA -] 81 mg PO DAILY tab.chew 01/23/18 Atorvastatin Ca [Lipitor] 80 mg PO HS tablet 01/23/18 Carvedilol [Coreg -] 25 mg PO BID tablet 01/23/18 Cholecalciferol (Vitamin D3) 1,000 unit PO DAILY tab 01/23/18 [Vitamin D3 -] Isosorbide Dinitrate [Isordil -] 20 mg PO TIDISORDIL tablet 01/23/18 Allergies Allergy/AdvReac Type Severity Reaction Status Date / Time pioglitazone HCl [From Actos] Allergy Severe CHF Verified 01/28/18 15:55 REVIEW OF SYSTEMS: CONSTITUTIONAL: Absent: fever, chills, diaphoresis, generalized weakness, malaise, loss of appetite, weight change CARDIOVASCULAR: Absent: chest pain, syncope, palpitations, irregular heart rate, lightheadedness , peripheral edema RESPIRATORY: Absent: cough, mild shortness of breath, dyspnea with exertion, wheezing, stridor, hemoptysis GASTROINTESTINAL: Absent: abdominal pain, abdominal distension, nausea, vomiting, diarrhea, constipation, melena, hematochezia SKIN: Absent: rash, itching, pallor PSYCHIATRIC: Absent: anxiety, depression, suicidal or homicidal ideation, hallucinations. PHYSICAL EXAM: GENERAL: Awake, alert, and fully oriented, in no acute distress. HEAD: Normal with no signs of trauma. EYES: PERRL, sclera anicteric, conjunctiva clear. NECK: Normal ROM, supple without lymphadenopathy, JVD, or masses. LUNGS: Decreased breath sounds on Right. No wheezes, and no crackles. No accessory muscle use. HEART: Regular rate and rhythm. No murmurs ABDOMEN: Soft, nontender, not distended, normoactive bowel sounds, no guarding, no rebound, no masses. No organomegaly. MUSCULOSKELETAL: Normal ROM at all joints. No bony deformities or tenderness. No CVA tenderness. UPPER EXTREMITIES: 2+ pulses, warm, well-perfused. No cyanosis. Cap refill <2 seconds. No peripheral edema. LOWER EXTREMITIES: 2+ pulses, warm, well-perfused. No calf tenderness. +2 edema LLE and +1 edema RLE NEUROLOGICAL: Normal speech, gait not observed. PSYCH: Cooperative. Good eye contact. Appropriate mood and affect. SKIN: Warm, dry, normal turgor, no rashes or lesions noted. Vital Signs Temperature 97.9 F 01/29/18 09:39 Pulse Rate 82 01/29/18 09:39 Respiratory Rate 18 01/29/18 09:39 Blood Pressure 117/56 01/29/18 09:39 O2 Sat by Pulse Oximetry (%) 98 01/29/18 10:00 Lab Results WBC 6.9 K/mm3 (4.0-10.0) 01/29/18 06:10 RBC 2.94 M/mm3 (4.00-5.60) L 01/29/18 06:10 Hgb 8.8 GM/dL (11.7-16.9) L 01/29/18 06:10 Hct 26.6 % (35.4-49) L 01/29/18 06:10 MCV 90.5 fl (80-96) 01/29/18 06:10 MCHC 33.0 g/dl (32.0-35.9) 01/29/18 06:10 RDW 14.7 % (11.9-15.9) 01/29/18 06:10 Plt Count 261 K/MM3 (134-434) 01/29/18 06:10 Sodium 142 mmol/L (136-145) 01/29/18 06:10 Potassium 5.2 mmol/L (3.5-5.1) H 01/29/18 06:10 Chloride 110 mmol/L (98-107) H 01/29/18 06:10 Carbon Dioxide 25 mmol/L (21-32) 01/29/18 06:10 Anion Gap 7 MMOL/L (8-16) L 01/29/18 06:10 BUN 39 mg/dL (7-18) H 01/29/18 06:10 Creatinine 1.2 mg/dL (0.7-1.3) 01/29/18 06:10 Random Glucose 99 mg/dL (74-106) D 01/29/18 06:10 Calcium 7.6 mg/dL (8.5-10.1) L 01/29/18 06:10 Blood Type O NEGATIVE 01/29/18 00:25 Antibody Screen Negative 01/29/18 00:25 INR 1.20 (0.83-1.09) H 01/28/18 17:07 Problem List - Problems (1) Pleural effusion Assessment/Plan: Plan -At this point no indication for VATS decort on this admission, pt does not have strong indication for surgery at this time and would need to be medically optimized and off Plavix for 7 days. -May consider TPA of pleurex to see if any improvement in output, would contact IR who placed pleurex to discuss TPA. -Would appreciate pulmonology input Code(s): J90 - PLEURAL EFFUSION, NOT ELSEWHERE CLASSIFIED
--- NOTE | 2018-01-29 14:16 | CON.PULM ---
Consult Consult Specialty:: PULMONARY Referred by:: Dr. Mondragon Reason for Consultation:: pleural effusion - History of Present Illness Chief Complaint: nondraining pleur-x History of Present Illness: 72yo male with h/o HTN, DM, CAD s/p stents, LV diastolic dysfunction, CKD, chronic right pleural effusion s/p pleur-x 6 months ago who was sent from [facility] after his pleur-x catheter stopped draining. Recently admitted for pneumonia and pleural fluid at that time grew staph epi, corynebacterium and micrococcus treated with prolonged course of antibiotics. Denies any shortness of breath or chest pain. No fevers, chills or sweats. Weight has been stable. CT chest done this admission showing increasing right sided loculated effusion. 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 Cardio/Vascular: Yes: CAD (prior anterolateral [place] 03/1995 w/ PCI of LAD & ramus , PCI of LAD 05/1996 (with 100% occluded ramus and patent RCA), rotoblator & PCI w/ Xience stent prox LAD & prox/mid Cfx 07/30/16), CHF, Hyperlipdemia, [place] ( anterolateral [place] 1994), Other (CHF) Pulmonary: Yes: Pneumonia (03/2016), Other (Chronic right pleural effusion ) Gastrointestinal: Yes: GERD, Irritable Bowel Disease Renal/: Yes: Renal Inusuff, BPH, Renal Calculi Musculoskeletal: Yes: Osteoarthritis Rheumatology: Yes: Gout Endocrine: Yes: Diabetes Mellitus (with peripheral neuropathy), Other ( Hypogonadism, nodular goiter) - Past Surgical History Past Surgical History: Yes: Cataract Removal (bilateral), Hernia Repair ( umbillical) - Alcohol/Substance Use Hx Alcohol Use: No History of Substance Use: reports: None - Smoking History Smoking history: Former smoker Have you smoked in the past 12 months: No Aproximately how many cigarettes per day: 0 If you are a former smoker, when did you quit?: 35yrs ago - Social History ADL: Independent History of Recent Travel: No Home Medications - Allergies Allergies/Adverse Reactions: Allergies Allergy/AdvReac Type Severity Reaction Status Date / Time pioglitazone HCl [From Actos] Allergy Severe CHF Verified 01/28/18 15:55 - Home Medications Home Medications: Ambulatory Orders Clopidogrel Bisulfate [Plavix -] 75 mg PO DAILY tablet 09/30/17 Gabapentin [Neurontin -] 600 mg PO BID 11/11/17 Isosorbide Dinitrate [Isordil -] 40 mg PO TID 11/11/17 Docusate Sodium [Colace -] 300 mg PO DAILY 11/12/17 Acetaminophen [Tylenol .Regular Strength -] 650 mg PO Q6H PRN tablet 01/23/18 Allopurinol [Zyloprim -] 100 mg PO DAILY tablet 01/23/18 Aspirin [ASA -] 81 mg PO DAILY tab.chew 01/23/18 Atorvastatin Ca [Lipitor] 80 mg PO HS tablet 01/23/18 Carvedilol [Coreg -] 25 mg PO BID tablet 01/23/18 Cholecalciferol (Vitamin D3) [Vitamin D3 -] 1,000 unit PO DAILY tab 01/23/18 Isosorbide Dinitrate [Isordil -] 20 mg PO TIDISORDIL tablet 01/23/18 Family Disease History - Family Disease History Family Disease History: Heart Disease: Father, Mother (CHF) Review of Systems - Review of Systems Constitutional: denies: Chills, Fever, Weakness Eyes: denies: Recent Change in Vision HENT: denies: Nasal Congestion, Throat Pain Neck: denies: Stiffness, Tenderness Cardiovascular: denies: Chest Pain, Palpitations, Shortness of Breath Respiratory: denies: Cough, Hemoptysis, Wheezing Gastrointestinal: denies: Abdominal Pain, Nausea, Vomiting Genitourinary: denies: Dysuria, Hematuria Neurological: denies: Dizziness, Headache Endocrine: denies: Unexplained Weight Loss Physical Exam Vital Sings: Vital Signs Temperature 97.9 F 01/29/18 09:39 Pulse Rate 82 01/29/18 09:39 Respiratory Rate 18 01/29/18 09:39 Blood Pressure 117/56 01/29/18 09:39 O2 Sat by Pulse Oximetry (%) 98 01/29/18 10:00 Constitutional: Yes: Calm Eyes: Yes: Conjunctiva Clear, EOM Intact HENT: Yes: Atraumatic, Normocephalic Neck: Yes: Supple, Trachea Midline Cardiovascular: Yes: Regular Rate and Rhythm Respiratory: Yes: Diminished (decreased breath sounds right base) ...Clubbing: No Gastrointestinal: Yes: Normal Bowel Sounds, Soft. No: Tenderness Edema: No Neurological: Yes: Alert, Oriented Labs: CBC, BMP 01/29/18 06:10 01/29/18 06:10 Imaging - Results Chest X-ray: Report Reviewed, Image Reviewed Cat Scan: Report Reviewed, Image Reviewed (right sided effusion increased from prior) Problem List - Problems (1) Pleural effusion Code(s): J90 - PLEURAL EFFUSION, NOT ELSEWHERE CLASSIFIED (2) CKD (chronic kidney disease) Code(s): N18.9 - CHRONIC KIDNEY DISEASE, UNSPECIFIED Qualifiers: Chronic kidney disease stage: stage 2 (mild) Qualified Code(s): N18.2 - Chronic kidney disease, stage 2 (mild) (3) Diabetes Code(s): E11.9 - TYPE 2 DIABETES MELLITUS WITHOUT COMPLICATIONS (4) Pulmonary hypertension Code(s): I27.2 - OTHER SECONDARY PULMONARY HYPERTENSION * DO NOT USE * (5) CAD (coronary artery disease) Code(s): I25.10 - ATHSCL HEART DISEASE OF [place] CORONARY ARTERY W/O ANG PCTRS Qualifiers: Coronary Disease-Associated Artery/Lesion type: [place] artery [place] vs. transplanted heart: [place] heart Associated angina: without angina Qualified Code(s): I25.10 - Atherosclerotic heart disease of [place] coronary artery without angina pectoris (6) HTN (hypertension) Code(s): I10 - ESSENTIAL (PRIMARY) HYPERTENSION Qualifiers: Hypertension type: essential hypertension Qualified Code(s): I10 - Essential (primary) hypertension (7) Hyperlipidemia Code(s): E78.5 - HYPERLIPIDEMIA, UNSPECIFIED Qualifiers: Hyperlipidemia type: pure hypercholesterolemia Qualified Code(s): E78.00 - Pure hypercholesterolemia, unspecified; E78.0 - Pure hypercholesterolemia Assessment/Plan Right Pleural Effusion s/p pleur-x placement now not draining CAD LV Diastolic Dysfunction Pulmonary HTN CKD HTN DM Hyperlipidemia - pt asymptomatic with increased effusion - would d/c pleur-x catheter as it is not draining - hold plavix - thoracic surgery evaluation for possible R VATS/decortication but will need to be off plavix - DVT prophylaxis Thank you for this consult Bebeto Paul MD
[2018-01-29] MEDS: ASPIRIN 81 MG CHEWABLE TABLETS PO SCH (14:40)
--- NOTE | 2018-01-29 16:48 | PN ---
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, Physician Chief Complaint: dyspnea last night now comfortable History of Present Illness: 72 yo male admitted with chronic right pleural effusion and inability to drain pleurx catheter, was evaluated by the Vocational Guidance Counselor and Shopper'S Aide in view of possible VATS procedure. An attempted was made this afternoon to drain his right pleural effusion without successs . I discussed the case with the IR. Patient's last dose of PLavix was yesterday. He is off PLavix as of now but ASA is still being given to prevent cardiac stent occlusion. Discussed the case with Dr. Vale who will see the patient tomorrow morning, - Current Medication List Current Medications: Active Medications Allopurinol (Zyloprim -) 100 mg PO DAILY [facility] Last Admin: 01/29/18 09:49 Dose: 100 mg Aspirin (Asa -) 81 mg PO DAILY [facility] Last Admin: 01/29/18 14:40 Dose: 81 mg Atorvastatin Calcium (Lipitor -) 80 mg PO HS [facility] Last Admin: 01/28/18 22:30 Dose: 80 mg Carvedilol (Coreg -) 25 mg PO BID [facility] Last Admin: 01/29/18 09:49 Dose: 25 mg Furosemide (Lasix Injection -) 40 mg IVPUSH DAILY [facility] Last Admin: 01/28/18 22:30 Dose: 40 mg Gabapentin (Neurontin -) 600 mg PO BID [facility] Last Admin: 01/29/18 09:49 Dose: 600 mg Insulin Aspart (Novolog Vial Sliding Scale -) 1 vial SQ [facility]; Protocol Last Admin: 01/29/18 16:27 Dose: 4 unit Isosorbide Dinitrate (Isordil -) 20 mg PO TID [facility] Last Admin: 01/29/18 14:41 Dose: 20 mg - Objective Vital Signs: Vital Signs Temperature 98.1 F 01/29/18 14:59 Pulse Rate 87 01/29/18 14:59 Respiratory Rate 22 01/29/18 14:59 Blood Pressure 154/78 01/29/18 14:59 O2 Sat by Pulse Oximetry (%) 98 01/29/18 10:00 Constitutional: Yes: No Distress, Calm Eyes: Yes: Conjunctiva Clear, EOM Intact HENT: Yes: Atraumatic, Normocephalic Neck: Yes: Supple, Trachea Midline Cardiovascular: Yes: Regular Rate and Rhythm, S1, S2 Respiratory: Yes: Regular, Other (decraesed breath sounds at the right base, no rales no crepitations) Gastrointestinal: Yes: Normal Bowel Sounds, Soft ...Rectal Exam: Yes: Deferred Breast(s): Yes: WNL Edema: No Peripheral Pulses WNL: Yes Integumentary: Yes: Pressure Ulcer (of te hsacral area stage 2) Neurological: Yes: Alert, Oriented Psychiatric: Yes: Alert, Oriented Labs: CBC, BMP 01/29/18 06:10 01/29/18 06:10 INR, PTT INR 1.20 (0.83-1.09) H 01/28/18 17:07 Problem List - Problems (1) Pleural effusion Assessment/Plan: VATS being considered off Plavix Code(s): J90 - PLEURAL EFFUSION, NOT ELSEWHERE CLASSIFIED (2) CHF (congestive heart failure) Assessment/Plan: LAsix 40 mg po in am Code(s): I50.9 - HEART FAILURE, UNSPECIFIED Qualifiers: Heart failure type: combined systolic and diastolic Heart failure chronicity: chronic Qualified Code(s): I50.42 - 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) heart failure (3) CKD (chronic kidney disease) Assessment/Plan: KAyexalate 15 gm po once given for hyperkaliemia Code(s): N18.9 - CHRONIC KIDNEY DISEASE, UNSPECIFIED Qualifiers: Chronic kidney disease stage: stage 2 (mild) Qualified Code(s): N18.2 - Chronic kidney disease, stage 2 (mild) (4) Diabetes mellitus type 2 with complications Assessment/Plan: on Glipizide as outpatient and using regular Insulin now Ac and HS Code(s): E11.8 - TYPE 2 DIABETES MELLITUS WITH UNSPECIFIED COMPLICATIONS (5) S/P coronary artery stent placement Assessment/Plan: continue ASA and hold Plavix for now in case he is scheduled for VATS Code(s): Z95.5 - PRESENCE OF CORONARY ANGIOPLASTY IMPLANT AND GRAFT (6) Pressure ulcer of sacral region, stage 2 Assessment/Plan: apply Santyl daily Code(s): L89.152 - PRESSURE ULCER OF [place], STAGE 2 Assessment/Plan will be assessed 72 yo male with CAD, s/p stenting, chronic pleural effusion and Pleurx catheter , DM type 2 , CKD will be assessed for possible VATS procedure or decortication.
[2018-01-29] MEDS: COLLAGENASE CLOSTRIDIUM HIST. 30 GRAMS TUBE TP SCH (21:55)
[2018-01-29] MEDS: ATORVASTATIN CA 80 MG TABLET (FP) PO SCH (21:56)
[2018-01-29] MEDS ORDERED: ACETAMINOPHEN 325 MG TABLET (FP) PO PRN (22:42)
[2018-01-30 07:23] LABS: BASO % 0.7 % (0-2.0); EOS % 1.3 % (0-4.5); HEMATOCRIT 27.1 % (35.4-49); HEMOGLOBIN 9.1 GM/dL (11.7-16.9); LYMPH % 11.4 % (8-40); MCHC 33.4 g/dl (32.0-35.9); MEAN CELL VOLUME 89.6 fl (80-96); MEAN PLT VOLUME 7.7 fl (7.5-11.1); MONO % 7.4 % (3.8-10.2); NEUT % 79.2 % (42.8-82.8); PLATELET COUNT 243 K/MM3 (134-434); RBC 3.03 M/mm3 (4.00-5.60); RDW 14.7 % (11.9-15.9); WHITE BLOOD COUNT 6.6 K/mm3 (4.0-10.0)
[2018-01-30 07:43] LABS: CHLORIDE 110 mmol/L (98-107); POTASSIUM 5.3 mmol/L (3.5-5.1); SODIUM 144 mmol/L (136-145)
[2018-01-30] MEDS: INSULIN SLIDING SCALE (NOVOLOG) 1 VIAL SQ SCH ×2 (08:00→12:20)
[2018-01-30 08:01] LABS: ALBUMIN 1.6 g/dl (3.4-5.0); ALK PHOS 109 U/L (45-117); ANION GAP 9 MMOL/L (8-16); BILIRUBIN,TOTAL 0.9 mg/dL (0.2-1.0); BLOOD UREA NITROGEN 33 mg/dL (7-18); CALCIUM 7.7 mg/dL (8.5-10.1); CO2 25 mmol/L (21-32); GLUCOSE,RANDOM 132 mg/dL (74-106); SGOT/AST 20 U/L (15-37); SGPT/ALT 48 U/L (12-78); TOT PROT 5.8 g/dl (6.4-8.2)
[2018-01-30] MEDS: GABAPENTIN 300 MG CAPSULE (FP) PO SCH (09:56)
[2018-01-30] MEDS: ISOSORBIDE DINITRATE 20 MG TABLET (FP) PO SCH ×2 (09:56→14:19)
[2018-01-30] MEDS: ALLOPURINOL 100 MG TABLET (FP) PO SCH (09:57)
[2018-01-30] MEDS: CARVEDILOL 25 MG TABLET (FP) PO SCH (09:57)
[2018-01-30] MEDS ORDERED: ALLOPURINOL 100 MG TABLET (FP) PO SCH (10:00)
[2018-01-30] MEDS ORDERED: CHOLECALCIFEROL (VITAMIN D3) 1,000 UNIT TABLET (FP) PO SCH (10:00)
[2018-01-30] MEDS ORDERED: GABAPENTIN 100 MG CAPSULE (FP) PO SCH (10:00)
[2018-01-30] MEDS ORDERED: FUROSEMIDE 20 MG TABLET (FP) PO SCH ×2 (10:00)
[2018-01-30] MEDS ORDERED: ASPIRIN 81 MG CHEWABLE TABLETS PO SCH (10:00)
[2018-01-30] MEDS ORDERED: DOCUSATE SODIUM 100 MG CAPSULE (FP) PO SCH (10:00)
[2018-01-30] MEDS ORDERED: CARVEDILOL 25 MG TABLET (FP) PO SCH (10:00)
[2018-01-30] MEDS ORDERED: LIDOCAINE HCL 1%, 10 MG/ML (20ML VIAL) ONE (11:02)
--- NOTE | 2018-01-30 11:50 | PROC ---
Procedure Note Procedure: Tunneled chest tube removal Procedure: Pt was placed supine on his bed and area around tube was cleaned and 10 ml of 1 % lidocaine was injected into the tunneled chest tube tract. Chest tube was then removed and dry clean dressing was placed. Pt tolerated the procedure well. Bleeding minimal Follow up CXR ordered.
--- NOTE | 2018-01-30 12:13 | PN ---
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 (short form) - Note 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: PULMONARY VSS/AFEBRILE WELL KNOWN BY OUR SERVICE PALE/ANICTERIC DIMINISHED BREATH SOUNDS S1S2 BS+ SOFT NONTENDER NO EDEMA LABS/MEDS/NOTES/IMAGES CHRONIC LOCULATED RIGHT PLEURAL EFFUSION WITH FAILURE OF PLEUREX TO DRAIN DESPITE PAST ATTEMPTS WITH TPA. PATIENT WANTS TO GO HOME TODAY. BEST SCENARIO WOULD BE TO HOLD PLAVIX FOR 5 DAYS AND SCHEDULE SAME DAY SURGERY FOR VAT/DECORTICATION/PLEURODESIS. PATIENT WILL CONSIDER THIS OPTION Yusuf ARGUELLO MD
[2018-01-30] MEDS: ASPIRIN 81 MG CHEWABLE TABLETS PO SCH (13:00)
--- NOTE | 2018-01-30 14:11 | PN ---
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, Physician History of Present Illness: Not dyspneic, non-functioning Pleurx catheter removed. - Current Medication List Current Medications: Active Medications Acetaminophen (Tylenol -) 650 mg PO Q6H PRN PRN Reason: FEVER/PAIN LEVEL 1-5 Allopurinol (Zyloprim -) 100 mg PO DAILY [facility] Last Admin: 01/30/18 09:57 Dose: 100 mg Aspirin (Asa -) 81 mg PO DAILY [facility] Last Admin: 01/30/18 13:00 Dose: 81 mg Atorvastatin Calcium (Lipitor -) 80 mg PO HS [facility] Last Admin: 01/29/18 21:56 Dose: 80 mg Carvedilol (Coreg -) 25 mg PO BID [facility] Last Admin: 01/30/18 09:57 Dose: 25 mg Cholecalciferol (Vitamin D3 -) 1,000 unit PO DAILY [facility] Last Admin: 01/30/18 09:57 Dose: 1,000 unit Collagenase (Santyl -) 1 applic TP DAILY [facility]; Protocol Last Admin: 01/29/18 21:55 Dose: 1 applic Docusate Sodium (Colace -) 300 mg PO DAILY [facility] Last Admin: 01/30/18 10:03 Dose: Not Given Furosemide (Lasix -) 40 mg PO DAILY [facility] Last Admin: 01/30/18 09:57 Dose: 40 mg Gabapentin (Neurontin -) 600 mg PO BID [facility] Last Admin: 01/30/18 09:56 Dose: 600 mg Insulin Aspart (Novolog Vial Sliding Scale -) 1 vial SQ ACHS [facility]; Protocol Last Admin: 01/30/18 12:20 Dose: Not Given Isosorbide Dinitrate (Isordil -) 20 mg PO TIDISORDIL [facility] Last Admin: 01/30/18 09:56 Dose: 20 mg - Objective Vital Signs: Vital Signs Temperature 98.0 F 01/30/18 09:00 Pulse Rate 80 01/30/18 09:00 Respiratory Rate 18 01/30/18 09:00 Blood Pressure 153/7 01/30/18 09:00 O2 Sat by Pulse Oximetry (%) 97 01/30/18 09:00 Constitutional: Yes: No Distress, Calm Neck: Yes: Supple Cardiovascular: Yes: Regular Rate and Rhythm Respiratory: Yes: Regular, Diminished Gastrointestinal: Yes: Normal Bowel Sounds, Soft Edema: No Labs: CBC, BMP 01/30/18 06:00 01/30/18 06:00 INR, PTT INR 1.20 (0.83-1.09) H 01/28/18 17:07 - ....Imaging Chest X-ray: Report Reviewed (Unchanged) Problem List - Problems (1) S/P coronary artery stent placement Code(s): Z95.5 - PRESENCE OF CORONARY ANGIOPLASTY IMPLANT AND GRAFT (2) Old myocardial infarction Code(s): I25.2 - OLD MYOCARDIAL INFARCTION (3) Pre-operative cardiovascular examination Code(s): Z01.810 - ENCOUNTER FOR PREPROCEDURAL CARDIOVASCULAR EXAMINATION (4) Pleural effusion Code(s): J90 - PLEURAL EFFUSION, NOT ELSEWHERE CLASSIFIED (5) CKD (chronic kidney disease) Code(s): N18.9 - CHRONIC KIDNEY DISEASE, UNSPECIFIED Qualifiers: Chronic kidney disease stage: stage 2 (mild) Qualified Code(s): N18.2 - Chronic kidney disease, stage 2 (mild) (6) CAD (coronary artery disease) Code(s): I25.10 - ATHSCL HEART DISEASE OF [place] CORONARY ARTERY W/O ANG PCTRS Qualifiers: Coronary Disease-Associated Artery/Lesion type: [place] artery [place] vs. transplanted heart: [place] heart Associated angina: without angina Qualified Code(s): I25.10 - Atherosclerotic heart disease of [place] coronary artery without angina pectoris (7) HTN (hypertension) Code(s): I10 - ESSENTIAL (PRIMARY) HYPERTENSION Qualifiers: Hypertension type: essential hypertension Qualified Code(s): I10 - Essential (primary) hypertension (8) Hyperlipidemia Code(s): E78.5 - HYPERLIPIDEMIA, UNSPECIFIED Qualifiers: Hyperlipidemia type: pure hypercholesterolemia Qualified Code(s): E78.00 - Pure hypercholesterolemia, unspecified; E78.0 - Pure hypercholesterolemia (9) Insulin dependent diabetes mellitus Code(s): E11.9 - TYPE 2 DIABETES MELLITUS WITHOUT COMPLICATIONS; Z79.4 - SENIOR LIVING (CURRENT) USE OF INSULIN (10) Diastolic dysfunction without heart failure Code(s): I51.89 - OTHER ILL-DEFINED HEART DISEASES Assessment/Plan 10/17 Echo: Normal LV size and low normal LVEF 50% improved from 07/2016 Rotablation WYATT prox LAD, prox LCx and mid LCx for ISR with improvement on LV fxn s/p anterolateral [place] s/p BMS LAD, ramus [place] s/p BMS LCx 1. Pre-operative cardiovascular evaluation prior to possible VATS in future to attempt to expand lung with chronic loculated non-draining right effusion despite TPA 2. CAD h/o VA, s/p multivessel stent 3. Type 2 DM 4. HTN 5. Diastolic dysfunction, pulm HTN 6. CKD with h/o hyperkalemia on entresto since d/simon P:1. Given absence of acute coronary syndrome, decompensated CHF or malignant arrhythmia, may proceed with VATS decortication and pleurodesis from CV- standpoint without further testing. Regarding Plavix use, he had most recent stents placed 07/2016 greater than one year ago so Plavix may be held for 5 days prior and resumed 5 days post per CTS. However, given the proximal nature of his LAD and LCx stents would recommend continuation of ASA 81 qd during the perioperative period if at all possible to decrease risk of catastrophic very late stent thrombosis off both antiplatelet agents. 2. Continue ASA 81 qd, Lipitor 80 qd, carvedilol 25 bid, isordil 40 tid, not on YUKI-I/ARB due to hyperkalemia 3. Patient has plans for Lexiscan MIBI at Dr. Chacon's office later in year, he saw him last December 01, 2017 4. Non-functioning Pleurx catheter has been removed
[2018-01-30] MEDS: COLLAGENASE CLOSTRIDIUM HIST. 30 GRAMS TUBE TP SCH (14:19)
--- NOTE | 2018-01-30 14:59 | DS ---
Physical Examination Vital Signs: Vital Signs Temperature 98.0 F 01/30/18 09:00 Pulse Rate 80 01/30/18 09:00 Respiratory Rate 18 01/30/18 09:00 Blood Pressure 153/7 01/30/18 09:00 O2 Sat by Pulse Oximetry (%) 97 01/30/18 09:00 Findings/Remarks: Chest tube removed, patient being discharged today with short term follow up and CXR as outpatient on Friday or Friday Labs: CBC, BMP 01/30/18 06:00 01/30/18 06:00 Discharge Summary Reason For Visit: PLEURAL EFFUSION Current Active Problems Diabetes mellitus type 2 with complications (Acute) Diastolic dysfunction without heart failure (Acute) Old myocardial infarction (Acute) Pleural effusion (Acute) Pre-operative cardiovascular examination (Acute) Pressure ulcer of sacral region, stage 2 (Acute) S/P coronary artery stent placement (Acute) Condition: Stable - Instructions Referrals: Siobhan Mondragon MD [Primary Care Provider] - - Home Medications Comprehensive Discharge Medication List: Ambulatory Orders Gabapentin [Neurontin -] 600 mg PO BID 11/11/17 Isosorbide Dinitrate [Isordil -] 40 mg PO TID 11/11/17 Docusate Sodium [Colace -] 300 mg PO DAILY 11/12/17 Acetaminophen [Tylenol .Regular Strength -] 650 mg PO Q6H PRN tablet 01/23/18 Allopurinol [Zyloprim -] 100 mg PO DAILY tablet 01/23/18 Aspirin [ASA -] 81 mg PO DAILY tab.chew 01/23/18 Atorvastatin Ca [Lipitor] 80 mg PO HS tablet 01/23/18 Carvedilol [Coreg -] 25 mg PO BID tablet 01/23/18 Cholecalciferol (Vitamin D3) [Vitamin D3 -] 1,000 unit PO DAILY tab 01/23/18 Isosorbide Dinitrate [Isordil -] 20 mg PO TIDISORDIL tablet 01/23/18 Acetaminophen [Tylenol .Regular Strength -] 650 mg PO Q6H PRN tablet 01/30/18 Allopurinol [Zyloprim -] 100 mg PO DAILY tablet 01/30/18 Allopurinol [Zyloprim -] 100 mg PO DAILY tablet 01/30/18 Aspirin [ASA -] 81 mg PO DAILY tab.chew 01/30/18 Aspirin [ASA -] 81 mg PO DAILY tab.chew 01/30/18 Atorvastatin Ca [Lipitor] 80 mg PO HS tablet 01/30/18 Atorvastatin Ca [Lipitor] 80 mg PO HS tablet 01/30/18 Carvedilol [Coreg -] 25 mg PO BID tablet 01/30/18 Carvedilol [Coreg -] 25 mg PO BID tablet 01/30/18 Cholecalciferol (Vitamin D3) [Vitamin D3 -] 1,000 unit PO DAILY tab 01/30/18 Collagenase Clostridium Hist. [Santyl -] 1 applic TP DAILY tube 01/30/18 Docusate Sodium [Colace -] 300 mg PO DAILY capsule 01/30/18 Furosemide [Lasix -] 40 mg PO DAILY tablet 01/30/18 Gabapentin [Neurontin -] 600 mg PO BID capsule 01/30/18 Gabapentin [Neurontin -] 600 mg PO BID capsule 01/30/18 Isosorbide Dinitrate [Isordil -] 20 mg PO TID tablet 01/30/18 Isosorbide Dinitrate [Isordil -] 20 mg PO TIDISORDIL tablet 01/30/18
[2018-01-30 15:01] VITALS: BP 150/78; PULSE 79; TEMP 98.5
--- NOTE | 2018-01-30 18:03 | CONSULT ---
Consult Consult Specialty:: Thoracic Surgery Referred by:: Dr. Mondragon Reason for Consultation:: Non-draining pleural catheter - History of Present Illness Chief Complaint: non-draining pleural catheter History of Present Illness: 72M with CAD s/p stents, pulmonary hypertension, chronic pleural effusion s/p pleur-x by IR, DM, GERD, CRI, p/w non-draining pleurx, s/p TPA, and then recurrence of non-draining. Unclear if resp sx significantly worse. No evidence of infection. He has been on home oxygen. 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 Cardio/Vascular: Yes: CAD (prior anterolateral OK 03/1995 w/ PCI of LAD & ramus , PCI of LAD 05/1996 (with 100% occluded ramus and patent RCA), rotoblator & PCI w/ Xience stent prox LAD & prox/mid Cfx 07/30/16), CHF, Hyperlipdemia, OK ( anterolateral OK 1994), Other (CHF) Pulmonary: Yes: Pneumonia (03/2016), Other (Chronic right pleural effusion ) Gastrointestinal: Yes: GERD, Irritable Bowel Disease Renal/: Yes: Renal Inusuff, BPH, Renal Calculi Musculoskeletal: Yes: Osteoarthritis Rheumatology: Yes: Gout Endocrine: Yes: Diabetes Mellitus (with peripheral neuropathy), Other ( Hypogonadism, nodular goiter) - Past Surgical History Past Surgical History: Yes: Cataract Removal (bilateral), Hernia Repair ( umbillical) - Alcohol/Substance Use Hx Alcohol Use: No History of Substance Use: reports: None - Smoking History Smoking history: Former smoker Have you smoked in the past 12 months: No Aproximately how many cigarettes per day: 0 If you are a former smoker, when did you quit?: 35yrs ago - Social History ADL: Independent History of Recent Travel: No Home Medications - Allergies Allergies/Adverse Reactions: Allergies Allergy/AdvReac Type Severity Reaction Status Date / Time pioglitazone HCl [From Actos] Allergy Severe CHF Verified 01/28/18 15:55 - Home Medications Home Medications: Ambulatory Orders Gabapentin [Neurontin -] 600 mg PO BID 11/11/17 Isosorbide Dinitrate [Isordil -] 40 mg PO TID 11/11/17 Docusate Sodium [Colace -] 300 mg PO DAILY 11/12/17 Acetaminophen [Tylenol .Regular Strength -] 650 mg PO Q6H PRN tablet 01/23/18 Allopurinol [Zyloprim -] 100 mg PO DAILY tablet 01/23/18 Aspirin [ASA -] 81 mg PO DAILY tab.chew 01/23/18 Atorvastatin Ca [Lipitor] 80 mg PO HS tablet 01/23/18 Carvedilol [Coreg -] 25 mg PO BID tablet 01/23/18 Cholecalciferol (Vitamin D3) [Vitamin D3 -] 1,000 unit PO DAILY tab 01/23/18 Isosorbide Dinitrate [Isordil -] 20 mg PO TIDISORDIL tablet 01/23/18 Acetaminophen [Tylenol .Regular Strength -] 650 mg PO Q6H PRN tablet 01/30/18 Allopurinol [Zyloprim -] 100 mg PO DAILY tablet 01/30/18 Allopurinol [Zyloprim -] 100 mg PO DAILY tablet 01/30/18 Aspirin [ASA -] 81 mg PO DAILY tab.chew 01/30/18 Aspirin [ASA -] 81 mg PO DAILY tab.chew 01/30/18 Atorvastatin Ca [Lipitor] 80 mg PO HS tablet 01/30/18 Atorvastatin Ca [Lipitor] 80 mg PO HS tablet 01/30/18 Carvedilol [Coreg -] 25 mg PO BID tablet 01/30/18 Carvedilol [Coreg -] 25 mg PO BID tablet 01/30/18 Cholecalciferol (Vitamin D3) [Vitamin D3 -] 1,000 unit PO DAILY tab 01/30/18 Collagenase Clostridium Hist. [Santyl -] 1 applic TP DAILY tube 01/30/18 Docusate Sodium [Colace -] 300 mg PO DAILY capsule 01/30/18 Furosemide [Lasix -] 40 mg PO DAILY tablet 01/30/18 Gabapentin [Neurontin -] 600 mg PO BID capsule 01/30/18 Gabapentin [Neurontin -] 600 mg PO BID capsule 01/30/18 Isosorbide Dinitrate [Isordil -] 20 mg PO TID tablet 01/30/18 Isosorbide Dinitrate [Isordil -] 20 mg PO TIDISORDIL tablet 01/30/18 Family Disease History - Family Disease History Family Disease History: Heart Disease: Father, Mother (CHF) Review of Systems - Review of Systems Constitutional: reports: No Symptoms Eyes: reports: No Symptoms Cardiovascular: reports: Shortness of Breath Respiratory: reports: Exercise Intolerance Musculoskeletal: reports: No Symptoms Integumentary: reports: No Symptoms Endocrine: reports: No Symptoms Physical Exam Vital Signs: Vital Signs Temperature 98.5 F 01/30/18 14:58 Pulse Rate 79 01/30/18 14:58 Respiratory Rate 18 01/30/18 14:58 Blood Pressure 150/78 01/30/18 14:58 O2 Sat by Pulse Oximetry (%) 97 01/30/18 09:00 Constitutional: Yes: Well Nourished HENT: Yes: WNL Cardiovascular: Yes: Regular Rate and Rhythm Respiratory: Yes: Diminished (right side. Pleur-x site without inflammation.) Labs: CBC, BMP 01/30/18 06:00 01/30/18 06:00 Imaging - Results Cat Scan: Image Reviewed Problem List - Problems (1) Tdonm-im-nzpguif kidney injury Code(s): N17.9 - ACUTE KIDNEY FAILURE, UNSPECIFIED; N18.9 - CHRONIC KIDNEY DISEASE, UNSPECIFIED (2) CHF (congestive heart failure) Code(s): I50.9 - HEART FAILURE, UNSPECIFIED Qualifiers: Heart failure type: combined systolic and diastolic Heart failure chronicity: chronic Qualified Code(s): I50.42 - 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) heart failure (3) Diabetes Code(s): E11.9 - TYPE 2 DIABETES MELLITUS WITHOUT COMPLICATIONS (4) Pleural effusion Code(s): J90 - PLEURAL EFFUSION, NOT ELSEWHERE CLASSIFIED (5) Pulmonary hypertension Code(s): I27.2 - OTHER SECONDARY PULMONARY HYPERTENSION * DO NOT USE * (6) S/P coronary artery stent placement Code(s): Z95.5 - PRESENCE OF CORONARY ANGIOPLASTY IMPLANT AND GRAFT (7) CAD (coronary artery disease) Code(s): I25.10 - ATHSCL HEART DISEASE OF [place] CORONARY ARTERY W/O ANG PCTRS Qualifiers: Coronary Disease-Associated Artery/Lesion type: [place] artery [place] vs. transplanted heart: [place] heart Associated angina: without angina Qualified Code(s): I25.10 - Atherosclerotic heart disease of [place] coronary artery without angina pectoris Assessment/Plan 72M with multiple medical problems including CAD on plavix and pulmonary hypertension. He has had a pleur-x in for several months that did initially expand his lung and then decreased drainage. The etiology of the effusion is believed to be from heart failure. In the last month, drainage has decreased and he has had increased loculation. No fevers. Cultures negative. -Pleur-x drain pulled at bedside with YANA Yeboah--CXR showed no significant change; -He is to f/u with Dr. Mondragon on Friday and get repeat CXR; -We are considering VATS to improve lung expansion although he will have some risk with his pulmonary hypertension. Plavix is held.
[2018-01-30] MEDS ORDERED: ATORVASTATIN CA 80 MG TABLET (FP) PO SCH (22:00)
== END 2018-01-30 15:22 | disposition home or self-care (01) | DRG 920 ==
LOC: JER 15:37 → JERBED 19:55 → J5S 01-29 00:37
PROVIDERS: ADMIT Internal Medicine; ATTEND Internal Medicine
PROC: 0WP930Z Removal of Drainage Device from Right Pleural Cavity, Percutaneous Approach (ICD-10-PCS; principal; 2018-01-28)
DX: T85.698A Other mechanical complication of other specified internal prosthetic devices, implants and grafts, initial encounter (principal); J90 Pleural effusion, not elsewhere classified; I50.42 Chronic combined systolic (congestive) and diastolic (congestive) heart failure; I13.0 Hypertensive heart and chronic kidney disease with heart failure and stage 1 through stage 4 chronic kidney disease, or unspecified chronic kidney disease; I25.10 Atherosclerotic heart disease of native coronary artery without angina pectoris; L89.152 Pressure ulcer of sacral region, stage 2; N18.9 Chronic kidney disease, unspecified; I27.20 Pulmonary hypertension, unspecified; Z98.61 Coronary angioplasty status; E78.5 Hyperlipidemia, unspecified; E11.22 Type 2 diabetes mellitus with diabetic chronic kidney disease; Y83.9 Surgical procedure, unspecified as the cause of abnormal reaction of the patient, or of later complication, without mention of misadventure at the time of the procedure; K21.9 Gastro-esophageal reflux disease without esophagitis
CPT/HCPCS: 36415; 71045-TC-FY; 71250-TC; 80053; 81003; 81015; 82962; 85025; 85610; 86850; 86900; 86901; 87086; 93005; 93010; 99285-25

== ENCOUNTER 2018-02-04 09:33 | Inpatient (IN) | payer OTHER, BC ==
[2018-02-04] MEDS ORDERED: PROPOFOL 20 ML ONE (12:09)
[2018-02-04] MEDS ORDERED: MIDAZOLAM HCL 2 MG/2 ML SINGLE DOSE VIAL ONE (12:09)
[2018-02-04] MEDS ORDERED: ROCURONIUM BROMIDE 50 MG/5 ML VIAL ONE (12:09)
[2018-02-04] MEDS ORDERED: BUPIVACAINE HCL/PF 0.5% (5MG/ML) 10 ML VIAL ONE (12:23)
[2018-02-04] MEDS ORDERED: LIDOCAINE 1%/EPI 1:100000 (20 ML MULTI DOSE VIAL) ONE (12:23)
[2018-02-04] MEDS ORDERED: ceFAZolin SODIUM 1 GM VIAL IVPB ONE (12:30)
[2018-02-04] MEDS ORDERED: BUPIVACAINE HCL/PF 0.25% (2.5MG/ML) 10 ML VIAL ONE (13:06)
[2018-02-04] MEDS ORDERED: ceFAZolin SODIUM 1 GM VIAL ONE (13:10)
[2018-02-04] MEDS ORDERED: DOXYCYCLINE HYCLATE 100 MG VIAL NR ONE (13:15)
[2018-02-04] MEDS ORDERED: BUPIVACAINE HCL/PF 0.25% (2.5MG/ML) 10 ML VIAL IJ ONE (13:19)
[2018-02-04] MEDS ORDERED: LIDOCAINE 1%/EPI 1:100000 (20 ML MULTI DOSE VIAL) IJ ONE (13:19)
[2018-02-04] MEDS ORDERED: ONDANSETRON 4 MG/2 ML VIAL IVPUSH PRN (15:36)
[2018-02-04] MEDS ORDERED: ACETAMINOPHEN 325 MG TABLET (FP) PO PRN ×3 (15:36→16:01)
--- NOTE | 2018-02-04 15:37 | OP ---
Operative Note - Note: Operative Date: 02/04/18 Pre-Operative Diagnosis: Loculated pleural effusion Operation: Bronchoscopy, right vats, pneumolysis, partial decortication, intercostal nerve block Findings: Bronchoscopy: normal airway; VATS: fibrinous exudate in chest with ~200cc effusion, some old clot, pleuritis throughout, adhesions of RML to anterior mediastinum and diaphragm, RLL to diaphragm and posterior mediastinum, and right upper lobe to anterior mediastinum, trapped lung (right lower lobe), at end of procedure RLL expanded to fill most but not all of space. Surgeon: Aman Vale Security Systems Manager: Kush Yeboah Specimens Removed: pleural rind, pleural contents Estimated Blood Loss (mls): 100 Drains & Tubes with Location: 2 chest tubes Operative Report Dictated: Yes
[2018-02-04] MEDS ORDERED: ALBUTEROL SO4 2.5/IPRATROPIUM 0.5 INH SOL 3 ML VIAL.NEB. NEB PRN (15:42)
[2018-02-04] MEDS ORDERED: LACTATED RINGERS SOLUTION 1,000 ML IV SCH (15:45)
--- NOTE | 2018-02-04 15:56 | SURG ---
Surgery Outbound Sales Specialist Note Outbound Sales Specialist: Kush Yeboah PA-C Date of Service: 02/04/18 Diagnosis: Right loculated pleural effusion Procedure: Bronchoscopy, right vats, pneumolysis, partial decortication, intercostal nerve block I was present for the entirety of the operative procedure. For further detail, please refer to operative report.
--- NOTE | 2018-02-04 18:01 | OPR ---
Patient Name: Sami Davis MR#: [id number] Procedure Date: 02/04/18 Date of Admission: 02/04/18 Inpatient/FENG Procedure Preoperative Diagnosis: 1. Recurrent loculated pleural effusion; 2. CAD s/p stents; 3. CHF; 4. Hyperlipidemia. Postoperative Diagnosis: Same Procedure: 1. Bronchoscopy; 2. Right VATS pneumolysis and pleural biopsy; 3. Partial decortication; 4. Intercostal nerve block. Indication: as above Surgeon(s): Dr. Aman Vale [employer] Supervisor: Kush Yeboah. Anesthesia: General Endotracheal Wound Classification: Clean Antibiotic Prophylaxis: n/a Findings: Bronchoscopy: normal; VATS: RLL adherent to diaphragm and posterior mediastinum; RML adherent to anterior mediastinum/heart and diaphragm, right upper lobe adherent to anterior mediastinum; small amounts of fluid with significant fibrinous exudate near the posterior lower lobe, fissure, and posterior to upper lobe, and over diaphragm; peel necessitating decortication of lower lobe; consolidated right lower lobe; Lung expanded adequately after procedure on VATS with some space below lower lobe. Specimens Sent: BAL cultures; pleural fluid cultures; pleural tissue for culture and pathology. Complications: none Drains / Tubes / Catheters: 2 right chest tubes Hardware / Implants: n/a Blood / Fluid Losses: 100cc Blood / Fluids Administered: per anesthesia Post-Operative Condition: stable, extubated to PACU Indications: This patient is a 72 year-old male former smoker with CAD and some CHF who had recurrent benign effusions treated with a pleur-x catheter. The tube stopped draining and his lung became trapped. He was referred for definitive therapy despite the risk as he was more symptomatic. He was explained the risks, benefits, and alternatives of a bronchoscopy, vats, and thoracoscopy, and he agreed and understood. Details of Procedure: The patient was taken into the operating room and placed supine on the table. He was monitored with pulse oximetry and blood pressure monitoring, including an arterial line. Sequential compression devices were placed. He was given sedation and intubated with a double-lumen tube. I performed a bronchoscopy. His airway was normal. He was then positioned in the left lateral decubitus postion and the position of the tube was reconfirmed. His chest was prepared and draped in sterile fashion. We made 3 total ports after giving local anesthesia. We performed pneumolysis and drained multiple loculated pockets. There were significant adhesions from the lower lobe to the diaphragm and from the middle lobe to the mediastinum and diaphragm. These were lysed. A partial decortication was performed on the lower lobe. Multiple cultures were sent. We then placed 2 chest tube. We gave an intercostal nerve block from intercostal spaces 4-8. We expanded the lung after ensuring good hemostasis. The lung expanded well. The chest tube was secured and the ports were closed with absorbable sutures and kimberly. Sterile dressings were placed. The patient was transferred extubated to the PACU. He tolerated the procedure well and was taken to the PACU in hemodynamically stable condition.
[2018-02-04] MEDS: oxyCODONE HCL 5 MG TABLET PO PRN (18:12)
--- NOTE | 2018-02-04 18:43 | CONSULT ---
Consultation: REQUESTING PROVIDER: CONSULT REQUEST: ICU HISTORY OF PRESENT ILLNESS: The patient is a 72 year old male with a PMH of HTN, hyperlipidemia, systolic CHF, CAD, s/p 6 stents, DMII, h/o of chronic pleural effusions, s/p pleur x cathete, admitted to ICU s/p Bronchoscopy, right vats, pneumolysis, partial decortication, intercostal nerve block. The patient states that he has chest tube inserted since July. In the past 2 weeks it was not draining so he decided to visit Dr Vale. On arrival to ICU he AAOx3, complaining of 7/10 pain on right side of his chest , worse with inspiration. He states that he can already feel improvement in breathing after the procedure. His BP 161/82, HR 75, Oxyg Sat 100 on 3 L. The patient is also coughing up small amount of blood. he denies dizziness, fever, chills. Blood loss 100 ml, exudate in chest with ~200cc effusion. Surgical History; umbilical hernia repair, removal of left parotid tumor, cataract b/l, S/P PTCA and Stents, Left Forearm Skin Tumor-Benign Implant of cardiac loop recorder Social HistoryDOESN'T DRINK Family History; FATHER AGE 77 HEART DISEASE, MOTHER AGE 86 DM , CAD, HTN, 1 SISTER HTN. Lives with . REVIEW OF SYSTEMS: CONSTITUTIONAL: Absent: fever, chills, diaphoresis, generalized weakness HEENT: Absent: nasal congestion, throat pain, throat swelling, difficulty swallowing, mouth swelling CARDIOVASCULAR: Absent: chest pain, syncope, palpitations, irregular heart rate, lightheadedness , peripheral edema RESPIRATORY: cough, pain with inspiration Absent: shortness of breath, dyspnea with exertion, orthopnea, wheezing GASTROINTESTINAL: Absent: abdominal pain, abdominal distension, nausea, vomiting, diarrhea, constipation GENITOURINARY: Absent: dysuria, frequency, urgency, hesitancy, hematuria MUSCULOSKELETAL: Absent: myalgia, back pain, neck pain SKIN: Absent: rash ENDOCRINE: Absent: unexplained weight gain, unexplained weight loss NEUROLOGIC: Absent: headache, focal weakness or paresthesias, dizziness PSYCHIATRIC: Absent: anxiety, depression PHYSICAL EXAMINATION Vital Signs - 24 hr 02/04/18 02/04/18 02/04/18 09:58 10:27 15:32 Temperature 97.6 F 97.7 F Pulse Rate 68 70 Respiratory 20 21 Rate Blood Pressure 149/76 180/78 O2 Sat by Pulse 97 100 Oximetry (%) 02/04/18 02/04/18 02/04/18 15:45 16:00 16:15 Temperature Pulse Rate 71 71 71 Respiratory 17 14 13 Rate Blood Pressure 181/75 188/69 172/69 O2 Sat by Pulse 100 100 100 Oximetry (%) 02/04/18 02/04/18 02/04/18 16:30 16:45 17:00 Temperature Pulse Rate 72 70 72 Respiratory 16 12 15 Rate Blood Pressure 179/73 180/67 181/64 O2 Sat by Pulse 100 100 100 Oximetry (%) 02/04/18 02/04/18 02/04/18 17:15 17:30 18:22 Temperature 97.6 F 97.6 F Pulse Rate 71 74 74 Respiratory 15 18 19 Rate Blood Pressure 177/66 174/64 161/82 O2 Sat by Pulse 100 100 100 Oximetry (%) GENERAL: Awake, alert, and fully oriented, in no acute distress. HEAD: Normal with no signs of trauma. EYES: Pupils equal, round and reactive to light, extraocular movements intact. EARS, NOSE, THROAT: Oropharynx clear without exudates. Moist mucous membranes. NECK: Normal range of motion, supple without lymphadenopathy, JVD, or masses. LUNGS: Breath sounds equal, clear to auscultation bilaterally. No wheezes, and no crackles. Two chest tubes; anterior and lateral, draining serosanguineous fluid, dressing applied. HEART: Regular rate and rhythm, normal S1 and S2 without murmur, rub or gallop. ABDOMEN: Soft, nontender, not distended, normoactive bowel sounds. UPPER EXTREMITIES: No peripheral edema. LOWER EXTREMITIES: Trace peripheral edema. NEUROLOGICAL: Non focal PSYCHIATRIC: Cooperative. Good eye contact. Appropriate mood and affect. SKIN: Warm, dry, normal turgor, no rashes. Active Medications Generic Name Dose Route Start Last Admin Trade Name Freq PRN Reason Stop Dose Admin Acetaminophen 650 mg 02/04/18 15:36 Tylenol - PO Q4H PRN FEVER Acetaminophen 325 mg 02/04/18 16:00 Tylenol - PO 02/07/18 15:59 Q4H PRN PAIN LEVEL 1-5 Acetaminophen 650 mg 02/04/18 16:01 02/04/18 18:18 Tylenol - PO 02/07/18 16:00 650 mg Q4H PRN Administration PAIN LEVEL 6-10 Albuterol/Ipratropium 1 amp 02/04/18 15:42 Duoneb - NEB Q4H PRN SHORTNESS OF BREATH Allopurinol 100 mg 02/05/18 10:00 Zyloprim - PO DAILY REPLACED BY [facility] Aspirin 81 mg 02/05/18 10:00 Ecotrin - PO DAILY REPLACED BY [facility] Atorvastatin Calcium 80 mg 02/04/18 22:00 Lipitor - PO HS REPLACED BY [facility] Carvedilol 25 mg 02/04/18 22:00 Coreg - PO BID REPLACED BY [facility] Cholecalciferol 1,000 unit 02/05/18 10:00 Vitamin D3 - PO DAILY REPLACED BY [facility] Diphenhydramine HCl 25 mg 02/04/18 15:36 Benadryl Injection - IVPB Q4H PRN FOR ITCHING Docusate Sodium 300 mg 02/05/18 10:00 Colace - PO DAILY REPLACED BY [facility] Fentanyl 50 mcg 02/04/18 15:50 02/04/18 16:45 Sublimaze Injection - IVPUSH 50 mcg [id number] PRN Administration PAIN-PACU ORDER X 4 DOSES ONLY Furosemide 40 mg 02/05/18 10:00 Lasix - PO DAILY REPLACED BY [facility] Gabapentin 600 mg 02/04/18 22:00 Neurontin - PO BID REPLACED BY [facility] Heparin Sodium (Porcine) 5,000 unit 02/04/18 22:00 Heparin - SQ TID REPLACED BY [facility] Lactated Ringer's 1,000 mls @ 100 mls/hr 02/04/18 15:45 02/04/18 18:09 Lactated Ringers Solution IV 100 mls/hr ASDIR REPLACED BY [facility] Administration Isosorbide Dinitrate 20 mg 02/04/18 18:00 Isordil - PO TIDISORDIL REPLACED BY [facility] Ondansetron HCl 4 mg 02/04/18 15:50 Zofran Injection IVPUSH Q6H PRN NAUSEA AND/OR VOMITING Oxycodone HCl 5 mg 02/04/18 16:00 Roxicodone - PO Q4H PRN PAIN LEVEL 1-5 Oxycodone HCl 10 mg 02/04/18 16:01 02/04/18 18:12 Roxicodone - PO 10 mg Q4H PRN Administration PAIN LEVEL 6-10 ASSESSMENT/PLAN: The patient is a 72 year old male with a PMH of HTN, hyperlipidemia, systolic CHF, CAD, DMII, h/o of chronic pleural effusion admitted to ICU s/p Bronchoscopy , right vats, pneumolysis, partial decortication, intercostal nerve block. The patient states that he has chest tube inserted since July. chronic pleural effusions CAD systolic CHF DMII spinal stenosis hld HTN MRSA in nares Plan: recommendations as per surgery fluids were stopped monitor chest tubes output at pressure of 40 continue pain control with Oxycodone and Tylenol PO home meds restarted ISS ACHS BGM ACHS full liquid diet advanced to diabetic in AM CXR in AM f/u labs in AM Dispo: We will continue to follow the patient. Thank you for this consultative opportunity. Problem List - Problems (1) CHF (congestive heart failure) Code(s): I50.9 - HEART FAILURE, UNSPECIFIED Qualifiers: Heart failure type: combined systolic and diastolic Heart failure chronicity: chronic Qualified Code(s): I50.42 - 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) heart failure (2) Diabetes Code(s): E11.9 - TYPE 2 DIABETES MELLITUS WITHOUT COMPLICATIONS (3) MRSA (methicillin resistant Staphylococcus aureus) colonization Code(s): Z22.322 - CARRIER OR SUSPECTED CARRIER OF METHICILLIN RESIS STAPH (4) Pleural effusion Code(s): J90 - PLEURAL EFFUSION, NOT ELSEWHERE CLASSIFIED (5) S/P coronary artery stent placement Code(s): Z95.5 - PRESENCE OF CORONARY ANGIOPLASTY IMPLANT AND GRAFT (6) CAD (coronary artery disease) Code(s): I25.10 - ATHSCL HEART DISEASE OF [place] CORONARY ARTERY W/O ANG PCTRS Qualifiers: Coronary Disease-Associated Artery/Lesion type: [place] artery [place] vs. transplanted heart: [place] heart Associated angina: without angina Qualified Code(s): I25.10 - Atherosclerotic heart disease of [place] coronary artery without angina pectoris (7) HTN (hypertension) Code(s): I10 - ESSENTIAL (PRIMARY) HYPERTENSION Qualifiers: Hypertension type: essential hypertension Qualified Code(s): I10 - Essential (primary) hypertension (8) Hyperlipidemia Code(s): E78.5 - HYPERLIPIDEMIA, UNSPECIFIED Qualifiers: Hyperlipidemia type: pure hypercholesterolemia Qualified Code(s): E78.00 - Pure hypercholesterolemia, unspecified; E78.0 - Pure hypercholesterolemia (9) Insulin dependent diabetes mellitus Code(s): E11.9 - TYPE 2 DIABETES MELLITUS WITHOUT COMPLICATIONS; 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 - New Patient This patient is new to me today: Yes Date on this admission: 02/04/18 - Critical Care Critical Care patient: Yes Total Critical Care Time (in minutes): 40 Critical Care Statement: The care of this patient involved high complexity decision making to prevent further life threatening deterioration of the patient 's condition and/or to evaluate & treat vital organ system(s) failure or risk of failure.
[2018-02-04] MEDS: ISOSORBIDE DINITRATE 20 MG TABLET (FP) PO SCH (18:58)
--- NOTE | 2018-02-04 19:59 | PN ---
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 ,was omn PLavox , Palvoix was placed on hold prior to the procedure - Current Medication List Current Medications: Active Medications Acetaminophen (Tylenol -) 650 mg PO Q4H PRN PRN Reason: FEVER Acetaminophen (Tylenol -) 325 mg PO Q4H PRN PRN Reason: PAIN LEVEL 1-5 Stop: 02/07/18 15:59 Acetaminophen (Tylenol -) 650 mg PO Q4H PRN PRN Reason: PAIN LEVEL 6-10 Stop: 02/07/18 16:00 Last Admin: 02/04/18 18:18 Dose: 650 mg Albuterol/Ipratropium (Duoneb -) 1 amp NEB Q4H PRN PRN Reason: SHORTNESS OF BREATH Allopurinol (Zyloprim -) 100 mg PO DAILY [facility] Aspirin (Ecotrin -) 81 mg PO DAILY [facility] Atorvastatin Calcium (Lipitor -) 80 mg PO HS [facility] Carvedilol (Coreg -) 25 mg PO BID [facility] Cholecalciferol (Vitamin D3 -) 1,000 unit PO DAILY [facility] Diphenhydramine HCl (Benadryl Injection -) 25 mg IVPB Q4H PRN PRN Reason: FOR ITCHING Docusate Sodium (Colace -) 300 mg PO DAILY [facility] Fentanyl (Sublimaze Injection -) 50 mcg IVPUSH [id number] PRN PRN Reason: PAIN-PACU ORDER X 4 DOSES ONLY Last Admin: 02/04/18 16:45 Dose: 50 mcg Furosemide (Lasix -) 40 mg PO DAILY [facility] Gabapentin (Neurontin -) 600 mg PO BID [facility] Heparin Sodium (Porcine) (Heparin -) 5,000 unit SQ TID [facility] Insulin Aspart (Novolog Vial Sliding Scale -) 1 vial SQ ACHS [facility]; Protocol Isosorbide Dinitrate (Isordil -) 20 mg PO TIDISORDIL [facility] Last Admin: 02/04/18 18:58 Dose: 20 mg Ondansetron HCl (Zofran Injection) 4 mg IVPUSH Q6H PRN PRN Reason: NAUSEA AND/OR VOMITING Oxycodone HCl (Roxicodone -) 5 mg PO Q4H PRN PRN Reason: PAIN LEVEL 1-5 Oxycodone HCl (Roxicodone -) 10 mg PO Q4H PRN PRN Reason: PAIN LEVEL 6-10 Last Admin: 02/04/18 18:12 Dose: 10 mg - Objective Vital Signs: Vital Signs Temperature 97.6 F 02/04/18 18:22 Pulse Rate 74 02/04/18 18:22 Respiratory Rate 19 02/04/18 18:22 Blood Pressure 161/82 02/04/18 18:22 O2 Sat by Pulse Oximetry (%) 100 02/04/18 18:22 Constitutional: Yes: No Distress, Calm Eyes: Yes: Conjunctiva Clear, EOM Intact HENT: Yes: Atraumatic, Normocephalic Neck: Yes: Supple, Trachea Midline Cardiovascular: Yes: Regular Rate and Rhythm, S1, S2 Respiratory: Yes: Regular, Other (rales at the right base, draining hemorrhagic fluid) Gastrointestinal: Yes: Soft, Abdomen, Obese. No: Hepatomegaly, Splenomegaly Musculoskeletal: No: Joint Stiffness, Joint Swelling, Muscle Pain Extremities: No: Calf Tenderness Edema: No Peripheral Pulses WNL: Yes Problem List - Problems (1) S/P thoracostomy tube placement Assessment/Plan: performed during the afternoon, the patient is alert and comfortable, saying that he is breathing better chest tube draining hemorrhagic fluid Code(s): Z93.8 - OTHER ARTIFICIAL OPENING STATUS (2) S/P coronary artery stent placement Assessment/Plan: confirmed with patient and procedure done in spring off Plavix for now, on ASA 81 mg daily drainage fluid is dark pink hemorrhagic Code(s): Z95.5 - PRESENCE OF CORONARY ANGIOPLASTY IMPLANT AND GRAFT (3) Diabetes mellitus type 2 with complications Assessment/Plan: nephropathy complications Code(s): E11.8 - TYPE 2 DIABETES MELLITUS WITH UNSPECIFIED COMPLICATIONS (4) Pressure ulcer of sacral region, stage 2 Assessment/Plan: Santyl daily Code(s): L89.152 - PRESSURE ULCER OF SACR[place] REGION, STAGE 2 (5) CKD (chronic kidney disease) Assessment/Plan: monitor K, change diet to renal diabetic low sodium diet, repeat k level Code(s): N18.9 - CHRONIC KIDNEY DISEASE, UNSPECIFIED Qualifiers: Chronic kidney disease stage: stage 2 (mild) Qualified Code(s): N18.2 - Chronic kidney disease, stage 2 (mild) (6) CHF (congestive heart failure) Assessment/Plan: LAsix restarted, will help with k levels Isordil 20 mg po tid Code(s): I50.9 - HEART FAILURE, UNSPECIFIED Qualifiers: Heart failure type: combined systolic and diastolic Heart failure chronicity: chronic Qualified Code(s): I50.42 - 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) heart failure (7) MRSA (methicillin resistant Staphylococcus aureus) colonization Assessment/Plan: applications of Mupirocin intra nasally Code(s): Z22.322 - CARRIER OR SUSPECTED CARRIER OF METHICILLIN RESIS STAPH (8) Chronic hyperkalemia Assessment/Plan: monitor K Code(s): E87.5 - HYPERKALEMIA
[2018-02-04] MEDS: HEPARIN NA (PORCINE) 5,000 UNITS/ML 1ML VIAL SQ SCH (21:09)
[2018-02-04] MEDS: ATORVASTATIN CA 80 MG TABLET (FP) PO SCH (21:09)
[2018-02-04] MEDS: GABAPENTIN 300 MG CAPSULE (FP) PO SCH (21:09)
[2018-02-04] MEDS: CARVEDILOL 25 MG TABLET (FP) PO SCH (21:09)
[2018-02-04] MEDS: INSULIN SLIDING SCALE (NOVOLOG) 1 VIAL SQ SCH (21:11)
[2018-02-05] MEDS: oxyCODONE HCL 5 MG TABLET PO PRN ×2 (01:34→14:46)
[2018-02-05] MEDS ORDERED: MORPHINE SULFATE 2 MG/ML VIAL IVPUSH ONE (01:45)
[2018-02-05] MEDS: ONDANSETRON 4 MG/2 ML VIAL IVPUSH PRN ×2 (01:48→09:04)
[2018-02-05] MEDS: HEPARIN NA (PORCINE) 5,000 UNITS/ML 1ML VIAL SQ SCH ×3 (06:03→21:18)
[2018-02-05] MEDS: INSULIN SLIDING SCALE (NOVOLOG) 1 VIAL SQ SCH ×4 (06:08→21:37)
--- NOTE | 2018-02-05 07:32 | PN ---
Physical Exam: SUBJECTIVE: Patient seen and examined this AM. Chest tubes draining red, serosanguineous fluid with air bubbles. Seal around chest tubes adjusted, and flow into chest tube collection improved, with minimal bubbles. Pt complained of nausea and 1x NBNB vomiting after taking his medication, since he took the meds on an empty stomach. Pt was provided zofran and was able to eat this morning, and nausea improved. Pt complains this AM of only minimal pain over the R chest wall, he states his breathing has improved significantly since the procedure. He denies any fevers/chills overnight, and has been urinating without difficulty. He has not had a BM, but is passing gas. OBJECTIVE: Vital Signs Period Temp Pulse Resp BP Sys/Desai Pulse Ox Last 24 Hr 97.5 F-97.7 F 62-76 10-21 134-188/56-82 97-100 GENERAL: The patient is awake, alert, and fully oriented, in no acute distress. Pt able to lie comfortably and speak full sentences. HEAD: Normal with no signs of trauma. EYES: Extraocular movements intact, sclera anicteric, conjunctiva clear. No ptosis. ENT: External ears normal, nares patent, oropharynx clear without exudates, moist mucous membranes. NECK: Trachea midline, full range of motion, supple. LUNGS: Breath sounds clear over L lung herrera anterior and posterior with no wheezing. Breath sounds in R lung herrera coarse anterior and posterior, no wheezing. No accessory muscle use. 2 chest tubes draining serosanguineous fluid (~520 from R anterior, ~25 from R lateral). HEART: Regular rate and rhythm, S1, S2 without murmur, rub or gallop. ABDOMEN: Soft, nontender, nondistended, normoactive bowel sounds, no guarding, no rebound, no hepatosplenomegaly, no masses. EXTREMITIES: 2+ pulses, warm, well-perfused, no edema. NEUROLOGICAL: Cranial nerves II through XII grossly intact. Normal speech, gait not observed. PSYCH: Normal mood, normal affect. SKIN: Warm, dry, normal turgor, no rashes or lesions noted. Laboratory Results - last 24 hr 02/04/18 20:58 POC Glucometer [id number] Active Medications Generic Name Dose Route Start Last Admin Trade Name Freq PRN Reason Stop Dose Admin Acetaminophen 650 mg 02/04/18 15:36 Tylenol - PO Q4H PRN FEVER Acetaminophen 325 mg 02/04/18 16:00 Tylenol - PO 02/07/18 15:59 Q4H PRN PAIN LEVEL 1-5 Acetaminophen 650 mg 02/04/18 16:01 02/04/18 18:18 Tylenol - PO 02/07/18 16:00 650 mg Q4H PRN Administration PAIN LEVEL 6-10 Albuterol/Ipratropium 1 amp 02/04/18 15:42 Duoneb - NEB Q4H PRN SHORTNESS OF BREATH Allopurinol 100 mg 02/05/18 10:00 Zyloprim - PO DAILY [facility] Aspirin 81 mg 02/05/18 10:00 Ecotrin - PO DAILY [facility] Atorvastatin Calcium 80 mg 02/04/18 22:00 02/04/18 21:09 Lipitor - PO 80 mg HS [facility] Administration Carvedilol 25 mg 02/04/18 22:00 02/04/18 21:09 Coreg - PO 25 mg BID [facility] Administration Cholecalciferol 1,000 unit 02/05/18 10:00 Vitamin D3 - PO DAILY [facility] Diphenhydramine HCl 25 mg 02/04/18 15:36 Benadryl Injection - IVPB Q4H PRN FOR ITCHING Docusate Sodium 300 mg 02/05/18 10:00 Colace - PO DAILY [facility] Fentanyl 50 mcg 02/04/18 15:50 02/04/18 16:45 Sublimaze Injection - IVPUSH 50 mcg [id number] PRN Administration PAIN-PACU ORDER X 4 DOSES ONLY Furosemide 40 mg 02/05/18 10:00 Lasix - PO DAILY [facility] Gabapentin 600 mg 02/04/18 22:00 02/04/18 21:09 Neurontin - PO 600 mg BID [facility] Administration Heparin Sodium (Porcine) 5,000 unit 02/04/18 22:00 02/05/18 06:03 Heparin - SQ 5,000 unit TID [facility] Administration Insulin Aspart 1 vial 02/04/18 22:00 02/05/18 06:08 Novolog Vial Sliding Scale - SQ 4 units ACHS [facility] Administration Protocol Isosorbide Dinitrate 20 mg 02/04/18 18:00 02/04/18 18:58 Isordil - PO 20 mg TIDISORDIL [facility] Administration Ondansetron HCl 4 mg 02/04/18 15:50 02/05/18 01:48 Zofran Injection IVPUSH 4 mg Q6H PRN Administration NAUSEA AND/OR VOMITING Oxycodone HCl 5 mg 02/04/18 16:00 Roxicodone - PO Q4H PRN PAIN LEVEL 1-5 Oxycodone HCl 10 mg 02/04/18 16:01 02/05/18 01:34 Roxicodone - PO 10 mg Q4H PRN Administration PAIN LEVEL 6-10 ASSESSMENT/PLAN: 72 yo M, with PMH of HTN, HLD, sCHF, CAD (6 stents), DM, chronic R pleural effusion, and infected pleurx tube, presents to ICU s/p bronchoscopy, R VATS, partial decortication, and intercostal nerve block performed by Dr. Vale. 1. Pulmonary -Pleural effusion: Duoneb Q4hr, Lasix 40 Qday 1 gm of Ancef was given prior to surgery -Continue to monitor chest tube output: Per Dr. Vale: "continue tubes to - 40 suction to maximize chances of pleural symphysis. Will decrease suction on Friday." Will order daily chest x-ray. -Oxycodone and Acetaminophen provided for pain PRN, dependent on pain level. 2. CVS (HTN, HLD, CAD/stents/cardiac loop device, CHF) -25 coreg BID, 81 ASA Qday, Isordil 20 Qday -Atorvastatin 80 QHS -Continue to monitor BP and cardiac monitoring 3. Endocrine -DM: Novolog sliding scale 4. Renal -BUN/Cr today 55/1.6, not significantly elevated from pt prior visits. Cannot provide too much fluid, as pt CHF. Will continue to monitor and intervene if necessary 5. Electrolytes -HyperK today (reached 6.1). Stat repeat K ordered, no ECG changes/no peaked T waves. Repeat K 5.6 Per primary team, 15 kayexalate to be given once Will continue to monitor 6. GI -Zofran 4mg Q6hr scheduled for nausea; no QT prolongation on ECG -Colace PRN for constipation -Will continue to monitor nausea and BM frequency 7. Prophylaxis/ID -SCD b/l -Heparin 5000 TID -PT consult ordered; pt can sit in chair as tolerated. -Mupirocin ordered (prior MRSA in nares). Will re-test to remove from isolation precautions -Will hold Plavix, as pt has increased bleeding risk, per Dr. Vale and Dr. Tabor Dispo: continue to monitor in ICU. Problem List - Problems (1) S/P thoracostomy tube placement Code(s): Z93.8 - OTHER ARTIFICIAL OPENING STATUS (2) [id number] kidney injury Code(s): N17.9 - ACUTE KIDNEY FAILURE, UNSPECIFIED; N18.9 - CHRONIC KIDNEY DISEASE, UNSPECIFIED (3) CHF (congestive heart failure) Code(s): I50.9 - HEART FAILURE, UNSPECIFIED Qualifiers: Heart failure type: combined systolic and diastolic Heart failure chronicity: chronic Qualified Code(s): I50.42 - 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) heart failure (4) Chronic left systolic heart failure Code(s): I50.22 - CHRONIC SYSTOLIC (CONGESTIVE) HEART FAILURE (5) Diabetes mellitus Code(s): E11.9 - TYPE 2 DIABETES MELLITUS WITHOUT COMPLICATIONS (6) Hyperkalemia Code(s): E87.5 - HYPERKALEMIA (7) S/P coronary artery stent placement Code(s): Z95.5 - PRESENCE OF CORONARY ANGIOPLASTY IMPLANT AND GRAFT (8) HTN (hypertension) Code(s): I10 - ESSENTIAL (PRIMARY) HYPERTENSION Qualifiers: Hypertension type: essential hypertension Qualified Code(s): I10 - Essential (primary) hypertension (9) Hyperlipidemia Code(s): E78.5 - HYPERLIPIDEMIA, UNSPECIFIED Qualifiers: Hyperlipidemia type: pure hypercholesterolemia Qualified Code(s): E78.00 - Pure hypercholesterolemia, unspecified; E78.0 - Pure hypercholesterolemia Visit type - Emergency Visit Emergency Visit: No - New Patient This patient is new to me today: Yes Date on this admission: 02/05/18 - Critical Care Critical Care patient: Yes Total Critical Care Time (in minutes): 30 Critical Care Statement: The care of this patient involved high complexity decision making to prevent further life threatening deterioration of the patient 's condition and/or to evaluate & treat vital organ system(s) failure or risk of failure. - Discharge Referral Referred to [facility] Med P.C.: Yes
--- NOTE | 2018-02-05 08:34 | PN ---
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 (short form) - Note 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: surgery POD #1 patient seen and examined at bedside with no complaints He was anxious last night but feeling much better now. Refused AM labs but agreeable now to lab draw.Has some discomfort with movement as expected. Vital Signs Temp 97.5 F L 02/05/18 02:00 Pulse 62 02/05/18 06:00 Resp 10 L 02/05/18 06:00 BP 143/67 02/05/18 06:00 Pulse Ox 100 02/04/18 21:00 Intake & Output 02/04/18 02/04/18 02/05/18 11:59 23:59 11:59 Intake Total 850 Output Total 1180 100 Balance -330 -100 Intake: IV 850 Lactated Ringers Solution 100 1,000 ml @ 100 mls/hr IV ASDIR MARY Rx#: [id number] Output: Chest Tube Drainage 880 Right Anterior Chest 506 Right Lateral Chest 10 Urine 250 100 Void 200 100 Estimated Blood Loss 50 Other: Voiding Method Urinal Bowel Movement No No PE: A&Ox3, NAD Unlabored resp on 3L NC, corse ronchi heard on auscultation or right chest, clear on left chest. Right chest surgical sites dressings c/d/I with no evidence of d/c. Two chest tubes inplace with bloody d/c CT #1 put out @750 [address] CT #2 put out 180 post op. no evidence of air leak in either tube. B/L LE compartments soft, supple and non-tender to palpation, scds in place. CXR (Right effusion, 2 right chest tubes, no PTX) Problem List - Problems (1) Lung nodule Assessment/Plan: s/p VATS POD#1 with bloody d/c in chest tubes H&H stable 1) Trend CBC watch for drop in H&H 2) wean O2 as tolerated 3) OOB to chair 4) Chest tubes x 2 on continuous suction at 40 5) will keep in unit today Evaluation and plan discussed with Dr Vale Code(s): R91.1 - SOLITARY PULMONARY NODULE
[2018-02-05] MEDS: DOCUSATE SODIUM 100 MG CAPSULE (FP) PO SCH (09:08)
[2018-02-05] MEDS: ISOSORBIDE DINITRATE 20 MG TABLET (FP) PO SCH ×3 (09:08→17:22)
[2018-02-05] MEDS: GABAPENTIN 300 MG CAPSULE (FP) PO SCH ×2 (09:10→21:18)
[2018-02-05] MEDS: CARVEDILOL 25 MG TABLET (FP) PO SCH ×2 (09:15→21:18)
[2018-02-05] MEDS: CHOLECALCIFEROL (VITAMIN D3) 1,000 UNIT TABLET (FP) PO SCH (09:15)
[2018-02-05] MEDS: ALLOPURINOL 100 MG TABLET (FP) PO SCH (09:15)
[2018-02-05] MEDS: ASPIRIN COATED 81 MG TABLET.EC PO SCH (09:15)
[2018-02-05] MEDS ORDERED: FUROSEMIDE 40 MG TABLET (FP) PO SCH (10:00)
--- NOTE | 2018-02-05 11:28 | CON.CARD ---
Consult Consult Specialty:: Cardiology Referred by:: Siobhan Mondragon MD Reason for Consultation:: Multivessel stent post-op recommendations - History of Present Illness Chief Complaint: s/p left VATs for loculated pleural effusion History of Present Illness: 72M former smoker with h/o CAD s/p multivessel stents, DM, HTN, systolic dysfunction with pulm HTN, chronic loculated right pleural effusion s/p pleur-x 6 months ago which stopped draining despite TPA and subsequently removed, CKD, h /o hernia repair who underwent right VATS, pneumolysis, pleural biopsy and partial decortication. He denies chest pain, dyspnea worse than baseline, palpitations, near or true syncope, orthopnea, PND or worsening LE edema, dry weight 170 lbs, off Plavix pre-op. 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: Peripheral Neuropathy Cardio/Vascular: Yes: CAD (prior anterolateral FL 03/1995 w/ PCI of LAD & ramus , PCI of LAD 05/1996 (with 100% occluded ramus and patent RCA), rotoblator & PCI w/ Xience stent prox LAD & prox/mid Cfx 07/30/16), CHF, Hyperlipdemia, FL ( anterolateral FL 1994), Other (CHF) Pulmonary: Yes: Pneumonia (03/2016), Other (Chronic right pleural effusion ) Gastrointestinal: Yes: GERD, Irritable Bowel Disease Renal/: Yes: Renal Inusuff, BPH, Renal Calculi Musculoskeletal: Yes: Osteoarthritis Rheumatology: Yes: Gout Endocrine: Yes: Diabetes Mellitus (with peripheral neuropathy), Other ( Hypogonadism, nodular goiter) - Past Surgical History Past Surgical History: Yes: Cataract Removal (bilateral), Hernia Repair ( umbillical) - Alcohol/Substance Use Hx Alcohol Use: No History of Substance Use: reports: None - Smoking History Smoking history: Former smoker Have you smoked in the past 12 months: No Aproximately how many cigarettes per day: 0 If you are a former smoker, when did you quit?: 35yrs ago - Social History ADL: Independent History of Recent Travel: No Home Medications - Allergies Allergies/Adverse Reactions: Allergies Allergy/AdvReac Type Severity Reaction Status Date / Time pioglitazone HCl [From Actos] Allergy Severe CHF Verified 02/03/18 12:55 - Home Medications Home Medications: Ambulatory Orders Acetaminophen [Pain Relief] 650 mg PO PRN 02/03/18 Allopurinol [Zyloprim -] 100 mg PO DAILY 02/03/18 Aspirin [Ecotrin] 81 mg PO DAILY 02/03/18 Atorvastatin Ca [Lipitor] 80 mg PO HS 02/03/18 Carvedilol 25 mg PO BID 02/03/18 Cholecalciferol (Vitamin D3) [Vitamin D3] 1,000 unit PO DAILY 02/03/18 Clopidogrel Bisulfate [Plavix] 75 mg PO DAILY 02/03/18 Docusate Sodium [Dulcolax Stool Softener] 300 mg PO DAILY 02/03/18 Furosemide 40 mg PO DAILY 02/03/18 Gabapentin [Neurontin] 600 mg PO BID 02/03/18 Isosorbide Dinitrate [Isordil -] 20 mg PO TID 02/03/18 Family Disease History - Family Disease History Family Disease History: Heart Disease: Father, Mother (CHF) Review of Systems - Review of Systems Cardiovascular: reports: No Symptoms Respiratory: reports: No Symptoms Vital Signs: Vital Signs Temperature 97.5 F L 02/05/18 02:00 Pulse Rate 62 02/05/18 06:00 Respiratory Rate 10 L 02/05/18 06:00 Blood Pressure 143/67 02/05/18 06:00 O2 Sat by Pulse Oximetry (%) 100 02/04/18 21:00 Constitutional: Yes: No Distress, Calm Neck: Yes: Supple Respiratory: Yes: Regular, Diminished, Other (Right chest tubes in place) Gastrointestinal: Yes: Normal Bowel Sounds, Soft Cardiovascular: Yes: Regular Rate and Rhythm JVD: No Carotid Bruit: No Heart Sounds: Yes: S1, S2 Edema: No - Other Data NSR @ 84 LAD Imaging - Results Chest X-ray: Report Reviewed (Right effusion, 2 right chest tubes, no PTX) Problem List - Problems (1) S/P thoracostomy tube placement Code(s): Z93.8 - OTHER ARTIFICIAL OPENING STATUS (2) CKD (chronic kidney disease) Code(s): N18.9 - CHRONIC KIDNEY DISEASE, UNSPECIFIED Qualifiers: Chronic kidney disease stage: stage 2 (mild) Qualified Code(s): N18.2 - Chronic kidney disease, stage 2 (mild) (3) Chronic left systolic heart failure Code(s): I50.22 - CHRONIC SYSTOLIC (CONGESTIVE) HEART FAILURE (4) Diastolic dysfunction without heart failure Code(s): I51.89 - OTHER ILL-DEFINED HEART DISEASES (5) Hyperkalemia Code(s): E87.5 - HYPERKALEMIA (6) Pleural effusion Code(s): J90 - PLEURAL EFFUSION, NOT ELSEWHERE CLASSIFIED (7) Pulmonary hypertension Code(s): I27.2 - OTHER SECONDARY PULMONARY HYPERTENSION * DO NOT USE * (8) S/P coronary artery stent placement Code(s): Z95.5 - PRESENCE OF CORONARY ANGIOPLASTY IMPLANT AND GRAFT (9) CAD (coronary artery disease) Code(s): I25.10 - ATHSCL HEART DISEASE OF [place] CORONARY ARTERY W/O ANG PCTRS Qualifiers: Coronary Disease-Associated Artery/Lesion type: [place] artery [place] vs. transplanted heart: [place] heart Associated angina: without angina Qualified Code(s): I25.10 - Atherosclerotic heart disease of [place] coronary artery without angina pectoris (10) HTN (hypertension) Code(s): I10 - ESSENTIAL (PRIMARY) HYPERTENSION Qualifiers: Hypertension type: essential hypertension Qualified Code(s): I10 - Essential (primary) hypertension (11) Hyperlipidemia Code(s): E78.5 - HYPERLIPIDEMIA, UNSPECIFIED Qualifiers: Hyperlipidemia type: pure hypercholesterolemia Qualified Code(s): E78.00 - Pure hypercholesterolemia, unspecified; E78.0 - Pure hypercholesterolemia (12) Insulin dependent diabetes mellitus Code(s): E11.9 - TYPE 2 DIABETES MELLITUS WITHOUT COMPLICATIONS; Z79.4 - CERTIFIED ORTHOTIST (CURRENT) USE OF INSULIN Assessment/Plan 10/17 Echo: Normal LV size and low normal LVEF 50% improved from 2017 07/2016 Rotablation WYATT prox LAD, prox LCx and mid LCx for ISR with improvement on LV fxn s/p anterolateral FL s/p BMS LAD, ramus [place] s/p BMS LCx 1. POD#1 R VATS pneumolysis, pleural biopsy and partial decortication to expand lung with chronic loculated non-draining right effusion despite TPA. He is stable cardiovascular-phan. 2. CAD h/o FL, s/p multivessel stent 3. Type 2 DM 4. HTN 5. Diastolic dysfunction, pulm HTN 6. CKD with h/o hyperkalemia on entresto since d/simon P:1. As previously recommended, resumed Plavix once hemostasis assured per CTS. However, given the proximal nature of his LAD and LCx stents would recommend continuation of ASA 81 qd during the perioperative period if at all possible to decrease risk of catastrophic very late stent thrombosis off both antiplatelet agents. 2. Continue ASA 81 qd, Lipitor 80 qd, carvedilol 25 bid, isordil 20 tid, not on YUKI-I/ARB due to hyperkalemia 3. Patient has plans for Lexiscan MIBI at Dr. Chacon's office later in year, he saw him last December 01, 2017 4. Thank you for consultative opportunity
[2018-02-05 12:00] LABS: BASO % 0.2 % (0-2.0); HEMOGLOBIN 8.8 GM/dL (11.7-16.9); LYMPH % 5.7 % (8-40); MCH 29.6 pg (25.7-33.7); MCHC 32.7 g/dl (32.0-35.9); MEAN CELL VOLUME 90.7 fl (80-96); MEAN PLT VOLUME 7.8 fl (7.5-11.1); MONO % 4.1 % (3.8-10.2); PLATELET COUNT 274 K/MM3 (134-434); RBC 2.98 M/mm3 (4.00-5.60); RDW 15.4 % (11.9-15.9); WHITE BLOOD COUNT 8.1 K/mm3 (4.0-10.0)
--- NOTE | 2018-02-05 12:00 | PN ---
Teaching Attending Note Name of Resident: Brianda Romero ATTENDING PHYSICIAN STATEMENT I saw and evaluated the patient. I reviewed the resident's note and discussed the case with the resident. I agree with the resident's findings and plan as documented. SUBJECTIVE: Pt seen and examined in the ICU. s/p R VATS/partial decortication/pneumolysis. [address] with serosanguinous drainage. No air leak noted. Pain controlled. Denies shortness of breath or chest pain. OBJECTIVE: Vital Signs Period Temp Pulse Resp BP Sys/Desai Pulse Ox Last 24 Hr 97.5 F-97.7 F 62-76 10-21 134-188/56-82 100-100 Intake & Output 02/02/18 02/03/18 02/04/18 02/05/18 23:59 23:59 23:59 23:59 Intake Total 850 Output Total 1180 100 Balance -330 -100 Weight 76.657 kg Gen: NAD at rest Heart: RRR Lung: right base rales Abd: soft, nontender Ext: no edema Chest tube: serosanguinous fluid, no air leak Active Medications Acetaminophen (Tylenol -) 650 mg PO Q4H PRN PRN Reason: FEVER Acetaminophen (Tylenol -) 325 mg PO Q4H PRN PRN Reason: PAIN LEVEL 1-5 Stop: 02/07/18 15:59 Acetaminophen (Tylenol -) 650 mg PO Q4H PRN PRN Reason: PAIN LEVEL 6-10 Stop: 02/07/18 16:00 Last Admin: 02/04/18 18:18 Dose: 650 mg Albuterol/Ipratropium (Duoneb -) 1 amp NEB Q4H PRN PRN Reason: SHORTNESS OF BREATH Allopurinol (Zyloprim -) 100 mg PO DAILY [facility] Last Admin: 02/05/18 09:15 Dose: 100 mg Aspirin (Ecotrin -) 81 mg PO DAILY [facility] Last Admin: 02/05/18 09:15 Dose: 81 mg Atorvastatin Calcium (Lipitor -) 80 mg PO HS [facility] Last Admin: 02/04/18 21:09 Dose: 80 mg Carvedilol (Coreg -) 25 mg PO BID [facility] Last Admin: 02/05/18 09:15 Dose: 25 mg Chlorhexidine Gluconate (Hibiclens For Decolonization -) 1 applic TP [facility] Cholecalciferol (Vitamin D3 -) 1,000 unit PO DAILY [facility] Last Admin: 02/05/18 09:15 Dose: 1,000 unit Diphenhydramine HCl (Benadryl Injection -) 25 mg IVPB Q4H PRN PRN Reason: FOR ITCHING Docusate Sodium (Colace -) 300 mg PO DAILY [facility] Last Admin: 02/05/18 09:08 Dose: 300 mg Fentanyl (Sublimaze Injection -) 50 mcg IVPUSH [id number] PRN PRN Reason: PAIN-PACU ORDER X 4 DOSES ONLY Last Admin: 02/04/18 16:45 Dose: 50 mcg Furosemide (Lasix -) 40 mg PO DAILY [facility] Last Admin: 02/05/18 09:09 Dose: 40 mg Gabapentin (Neurontin -) 600 mg PO BID [facility] Last Admin: 02/05/18 09:10 Dose: 600 mg Heparin Sodium (Porcine) (Heparin -) 5,000 unit SQ TID [facility] Last Admin: 02/05/18 06:03 Dose: 5,000 unit Insulin Aspart (Novolog Vial Sliding Scale -) 1 vial SQ ACHS [facility]; Protocol Last Admin: 02/05/18 06:08 Dose: 4 units Isosorbide Dinitrate (Isordil -) 20 mg PO TIDISORDIL [facility] Last Admin: 02/05/18 09:08 Dose: 20 mg Mupirocin (Bactroban Ointment (For Decolonization) -) 1 applic NS BID [facility] Stop: 02/10/18 11:19 Oxycodone HCl (Roxicodone -) 5 mg PO Q4H PRN PRN Reason: PAIN LEVEL 1-5 Oxycodone HCl (Roxicodone -) 10 mg PO Q4H PRN PRN Reason: PAIN LEVEL 6-10 Last Admin: 02/05/18 01:34 Dose: 10 mg ASSESSMENT AND PLAN: Chronic Pleural Effusion s/p R VATS/pleural biopsy/pneumolysis/partial decortication CAD s/p multivessel stent LV Diastolic Dysfunction Pulmonary HTN HTN DM CKD - pain control - incentive spirometry - O2 to keep SpO2>90% - monitor chest tube output - f/u pathology, pleural studies - restart antiplatelets when ok with surgery - PO as tolerated - DVT prophylaxis - continue ICU monitoring for now
[2018-02-05 12:28] LABS: ALBUMIN 1.6 g/dl (3.4-5.0); ANION GAP 5 MMOL/L (8-16); BLOOD UREA NITROGEN 53 mg/dL (7-18); CALCIUM 8.2 mg/dL (8.5-10.1); CHLORIDE 107 mmol/L (98-107); CO2 29 mmol/L (21-32); CREATININE 1.5 mg/dL (0.7-1.3); GLUCOSE,RANDOM 230 mg/dL (74-106); MAGNESIUM 2.3 mg/dL (1.8-2.4); PHOSPHOROUS 5.1 mg/dL (2.5-4.9); SGOT/AST 14 U/L (15-37); SODIUM 141 mmol/L (136-145)
[2018-02-05 12:31] LABS: ALK PHOS 101 U/L (45-117); BILIRUBIN,TOTAL 0.5 mg/dL (0.2-1.0); SGPT/ALT 29 U/L (12-78); TOT PROT 5.6 g/dl (6.4-8.2)
[2018-02-05 12:35] LABS: POTASSIUM 6.1 mmol/L (3.5-5.1)
[2018-02-05] MEDS: MUPIROCIN 2% TOPICAL OINTMENT FOR DECOLONIZATION NS SCH ×2 (12:40→21:20)
[2018-02-05] MEDS ORDERED: ALBUTEROL SO4 0.083% IH SOL 2.5 MG/3 ML VIAL.NEB. NEB ONE (12:41)
[2018-02-05] MEDS ORDERED: PT OWN MED DRAWER 7, Y5N ONE (13:12)
[2018-02-05] MEDS ORDERED: DEXTROSE 50%-WATER - 25 GM/50 ML VIAL IVPUSH ONE (13:15)
[2018-02-05] MEDS ORDERED: SODIUM POLYSTYRENE SULFONATE 15 GM/60 ML BOTTLE PO ONE ×2 (13:30→15:31)
[2018-02-05] MEDS ORDERED: CALCIUM GLUCONATE 10% - 1,000 MG/10 ML VIAL IVPUSH ONE (13:30)
[2018-02-05] MEDS ORDERED: CALCIUM GLUCONATE 10% - 1,000 MG/10 ML VIAL IVPB ONE (13:30)
[2018-02-05] MEDS ORDERED: INSULIN REGULAR HUMAN 100 UNITS/ML *VIAL IVPUSH ONE (13:30)
--- NOTE | 2018-02-05 13:43 | EKG ---
Test Reason : Blood Pressure : / mmHG Vent. Rate : 071 BPM Atrial Rate : 071 BPM P-R Int : 182 ms QRS Dur : 120 ms QT Int : 436 ms P-R-T Axes : 043 -40 084 degrees QTc Int : 473 ms NORMAL SINUS RHYTHM LEFT AXIS DEVIATION ANTERIOR INFARCT (CITED ON OR BEFORE 06-AUG-2017) ABNORMAL ECG WHEN COMPARED WITH ECG OF 28-JAN-2018 17:41, QUESTIONABLE CHANGE IN INITIAL [employer] OF [employer]PTAL [employer]ADS Confirmed by ROSEMARY BILLINGSLEY MD ([id number]) on 02/05/2018 1:43:14 PM Referred By: Aman Vale Confirmed By:ROSEMARY BILLINGSLEY MD
--- NOTE | 2018-02-05 13:58 | PN ---
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 (short form) - Note 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: Anesthesia POD#1 S/P Brochoscopy Right VATS under GA VSS,some nausea yesterday,better today,pain is controlled. No complications seen. Emy Arechiga MD.
[2018-02-05] MEDS ORDERED: DEXTROSE 50%-WATER 25 GM/50 ML DISP.SYRIN ONE (14:15)
--- NOTE | 2018-02-05 14:25 | PN ---
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 (short form) - Note 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: POD#1 Pain controlled. Breathing well. CT drainage serosanguineous, no leak currently. Plan: Transfer to Dr. Mondragon's service, continue ASA but hold plavix for few more days as he has high bleed risk, OOB ambulate (can take tubes off suction when ambulating), continue tubes to -40 suction to maximize chances of pleural symphysis. Will decrease suction on Friday. Daily CXR.
[2018-02-05 15:15] LABS: POTASSIUM 5.6 mmol/L (3.5-5.1); SODIUM 140 mmol/L (136-145)
--- NOTE | 2018-02-05 15:19 | PN ---
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, Physician Chief Complaint: S/p VATS and partial right lung decortication for recurrent right pleural effusion doing well day 2 # s/p procedure, the chest tube is draining hemorrhagic fluid, and the patient is breathing better and with pain well controlled - Current Medication List Current Medications: Active Medications Acetaminophen (Tylenol -) 650 mg PO Q4H PRN PRN Reason: FEVER Acetaminophen (Tylenol -) 325 mg PO Q4H PRN PRN Reason: PAIN LEVEL 1-5 Stop: 02/07/18 15:59 Last Admin: 02/05/18 14:46 Dose: 325 mg Acetaminophen (Tylenol -) 650 mg PO Q4H PRN PRN Reason: PAIN LEVEL 6-10 Stop: 02/07/18 16:00 Last Admin: 02/04/18 18:18 Dose: 650 mg Albuterol/Ipratropium (Duoneb -) 1 amp NEB Q4H PRN PRN Reason: SHORTNESS OF BREATH Allopurinol (Zyloprim -) 100 mg PO DAILY [facility] Last Admin: 02/05/18 09:15 Dose: 100 mg Aspirin (Ecotrin -) 81 mg PO DAILY [facility] Last Admin: 02/05/18 09:15 Dose: 81 mg Atorvastatin Calcium (Lipitor -) 80 mg PO HS [facility] Last Admin: 02/04/18 21:09 Dose: 80 mg Carvedilol (Coreg -) 25 mg PO BID [facility] Last Admin: 02/05/18 09:15 Dose: 25 mg Chlorhexidine Gluconate (Hibiclens For Decolonization -) 1 applic TP [facility] Cholecalciferol (Vitamin D3 -) 1,000 unit PO DAILY [facility] Last Admin: 02/05/18 09:15 Dose: 1,000 unit Collagenase (Santyl -) 1 applic TP DAILY [facility]; Protocol Docusate Sodium (Colace -) 300 mg PO DAILY [facility] Last Admin: 02/05/18 09:08 Dose: 300 mg Fentanyl (Sublimaze Injection -) 50 mcg IVPUSH [id number] PRN PRN Reason: PAIN-PACU ORDER X 4 DOSES ONLY Last Admin: 02/04/18 16:45 Dose: 50 mcg Furosemide (Lasix -) 40 mg PO DAILY [facility] Last Admin: 02/05/18 09:09 Dose: 40 mg Gabapentin (Neurontin -) 600 mg PO BID [facility] Last Admin: 02/05/18 09:10 Dose: 600 mg Heparin Sodium (Porcine) (Heparin -) 5,000 unit SQ TID [facility] Last Admin: 02/05/18 14:26 Dose: 5,000 unit Insulin Aspart (Novolog Vial Sliding Scale -) 1 vial SQ ACHS [facility]; Protocol Last Admin: 02/05/18 12:38 Dose: 4 units Isosorbide Dinitrate (Isordil -) 20 mg PO TIDISORDIL [facility] Last Admin: 02/05/18 14:43 Dose: 20 mg Mupirocin (Bactroban Ointment (For Decolonization) -) 1 applic NS BID [facility] Stop: 02/10/18 11:19 Last Admin: 02/05/18 12:40 Dose: 1 applic Oxycodone HCl (Roxicodone -) 5 mg PO Q4H PRN PRN Reason: PAIN LEVEL 1-5 Last Admin: 02/05/18 14:46 Dose: 5 mg Oxycodone HCl (Roxicodone -) 10 mg PO Q4H PRN PRN Reason: PAIN LEVEL 6-10 Last Admin: 02/05/18 01:34 Dose: 10 mg - Objective Vital Signs: Vital Signs Temperature 97.5 F L 02/05/18 02:00 Pulse Rate 62 02/05/18 06:00 Respiratory Rate 10 L 02/05/18 06:00 Blood Pressure 143/67 02/05/18 06:00 O2 Sat by Pulse Oximetry (%) 100 02/04/18 21:00 Constitutional: Yes: No Distress, Calm Eyes: Yes: Conjunctiva Clear, EOM Intact HENT: Yes: Atraumatic, Normocephalic Neck: Yes: Supple, Trachea Midline Cardiovascular: Yes: Regular Rate and Rhythm, S1, S2 Respiratory: Yes: Regular, CTA Bilaterally, Cough, On Nasal O2. No: Dullness, Orthopnea, Rhonchi, Tachypnea, Wheezes Gastrointestinal: Yes: Normal Bowel Sounds, Abdomen, Obese, Vomiting (earlier after receiveing Doxycicline). No: Hepatomegaly, Splenomegaly Breast(s): Yes: WNL Musculoskeletal: Yes: WNL Extremities: No: Calf Tenderness Edema: No Peripheral Pulses WNL: Yes Integumentary: Yes: Other (stahe 2 sacral pressure ulcer) Neurological: Yes: Alert, Oriented Psychiatric: Yes: Alert, Oriented Labs: CBC, BMP 02/05/18 11:40 - ....Imaging Chest X-ray: Other (right chest tube and right lower lung atelectasis and possibly fluid) EKG: Other (12;51 pm EKG: NSR, 71 b/min, ALFREDO, normal ID interval, DIVC and LAD , QRS axis at -30 degrees, Q avr, V1, V2 NONSPECIFIC sT-t CHANGES) Problem List - Problems (1) S/P thoracostomy tube placement Assessment/Plan: DAY 2 POST PROCEDURE the patient is alert and comfortable, saying that he is breathing better chest tube draining hemorrhagic fluid Code(s): Z93.8 - OTHER ARTIFICIAL OPENING STATUS (2) S/P coronary artery stent placement Assessment/Plan: confirmed with patient and procedure done in spring off Plavix for now, on ASA 81 mg daily drainage fluid is dark pink hemorrhagic Code(s): Z95.5 - PRESENCE OF CORONARY ANGIOPLASTY IMPLANT AND GRAFT (3) Diabetes mellitus type 2 with complications Assessment/Plan: nephropathy complications continue accuchecks with JOSR Code(s): E11.8 - TYPE 2 DIABETES MELLITUS WITH UNSPECIFIED COMPLICATIONS (4) Pressure ulcer of sacral region, stage 2 Assessment/Plan: Santyl daily to the sacrum Code(s): L89.152 - PRESSURE ULCER OF SACRAL REGION, STAGE 2 (5) CKD (chronic kidney disease) Assessment/Plan: monitor K, change diet to renal diabetic low sodium diet, repeat k level today since elevated EKG without acute hyperkaliemia changes add Nepro due to poor nutritional status Code(s): N18.9 - CHRONIC KIDNEY DISEASE, UNSPECIFIED Qualifiers: Chronic kidney disease stage: stage 2 (mild) Qualified Code(s): N18.2 - Chronic kidney disease, stage 2 (mild) (6) CHF (congestive heart failure) Assessment/Plan: LAsix restarted, will help with k levels Isordil 20 mg po tid monitor hydration status Code(s): I50.9 - HEART FAILURE, UNSPECIFIED Qualifiers: Heart failure type: combined systolic and diastolic Heart failure chronicity: chronic Qualified Code(s): I50.42 - 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) heart failure (7) MRSA (methicillin resistant Staphylococcus aureus) colonization Assessment/Plan: applications of Mupirocin intra nasally Code(s): Z22.322 - CARRIER OR SUSPECTED CARRIER OF METHICILLIN RESIS STAPH (8) Chronic hyperkalemia Assessment/Plan: monitor K Code(s): E87.5 - HYPERKALEMIA
[2018-02-05 15:26] LABS: ANION GAP 7 MMOL/L (8-16); BLOOD UREA NITROGEN 55 mg/dL (7-18); CALCIUM 7.8 mg/dL (8.5-10.1); CHLORIDE 107 mmol/L (98-107); CO2 27 mmol/L (21-32); CREATININE 1.6 mg/dL (0.7-1.3); GLUCOSE,RANDOM 247 mg/dL (74-106)
[2018-02-05] MEDS ORDERED: ONDANSETRON 4 MG/2 ML VIAL IVPUSH PRN (15:54)
[2018-02-05] MEDS ORDERED: ONDANSETRON 4 MG/2 ML VIAL ONE (16:02)
[2018-02-05] MEDS: COLLAGENASE CLOSTRIDIUM HIST. 30 GRAMS TUBE TP SCH (16:04)
[2018-02-05] MEDS: ATORVASTATIN CA 80 MG TABLET (FP) PO SCH (21:18)
[2018-02-05] MEDS ORDERED: CHLORHEXIDINE GLUCONATE 4% CLEANSER FOR DECOLONIZATION TP SCH (22:00)
[2018-02-06] MEDS: HEPARIN NA (PORCINE) 5,000 UNITS/ML 1ML VIAL SQ SCH ×2 (05:51→13:10)
[2018-02-06] MEDS: INSULIN SLIDING SCALE (NOVOLOG) 1 VIAL SQ SCH ×4 (06:01→21:40)
[2018-02-06 06:12] LABS: BASO % 0.3 % (0-2.0); EOS % 0.7 % (0-4.5); HEMATOCRIT 25.2 % (35.4-49); HEMOGLOBIN 8.1 GM/dL (11.7-16.9); LYMPH % 11.6 % (8-40); MCH 29.5 pg (25.7-33.7); MCHC 32.4 g/dl (32.0-35.9); MEAN CELL VOLUME 91.1 fl (80-96); MEAN PLT VOLUME 7.7 fl (7.5-11.1); MONO % 5.6 % (3.8-10.2); NEUT % 81.8 % (42.8-82.8); PLATELET COUNT 237 K/MM3 (134-434); RBC 2.76 M/mm3 (4.00-5.60); RDW 15.1 % (11.9-15.9); WHITE BLOOD COUNT 7.2 K/mm3 (4.0-10.0)
[2018-02-06 06:31] LABS: ALBUMIN 1.6 g/dl (3.4-5.0); ANION GAP 4 MMOL/L (8-16); BLOOD UREA NITROGEN 59 mg/dL (7-18); CALCIUM 7.7 mg/dL (8.5-10.1); CHLORIDE 107 mmol/L (98-107); CO2 29 mmol/L (21-32); GLUCOSE,RANDOM 188 mg/dL (74-106); MAGNESIUM 2.3 mg/dL (1.8-2.4); POTASSIUM 5.1 mmol/L (3.5-5.1); SGOT/AST 12 U/L (15-37); SGPT/ALT 24 U/L (12-78); SODIUM 140 mmol/L (136-145)
[2018-02-06 06:33] LABS: ALK PHOS 93 U/L (45-117); BILIRUBIN,TOTAL 0.5 mg/dL (0.2-1.0); TOT PROT 5.5 g/dl (6.4-8.2)
[2018-02-06] MEDS: ISOSORBIDE DINITRATE 20 MG TABLET (FP) PO SCH ×3 (08:59→17:30)
--- NOTE | 2018-02-06 09:39 | PN ---
Teaching Attending Note Name of Resident: Brianda Romero ATTENDING PHYSICIAN STATEMENT I saw and evaluated the patient. I reviewed the resident's note and discussed the case with the resident. I agree with the resident's findings and plan as documented. SUBJECTIVE: Pt seen and examined in the ICU. Pain controlled. Denies shortness of breath. Air leak now present in anterior tube. OBJECTIVE: Vital Signs Period Temp Pulse Resp BP Sys/Desai Pulse Ox Last 24 Hr 97.6 F-98.3 F 49-68 9-17 82-144/41-56 Intake & Output 02/03/18 02/04/18 02/05/18 02/06/18 23:59 23:59 23:59 23:59 Intake Total 850 100 Output Total 1180 940 325 Balance -330 -940 -225 Weight 76.657 kg 76.657 kg Gen: NAD at rest Heart: RRR Lung: decreased breath sounds right base Abd: soft, nontender Ext: no edema CBC, BMP 02/06/18 05:30 02/06/18 05:30 Active Medications Acetaminophen (Tylenol -) 650 mg PO Q4H PRN PRN Reason: FEVER Acetaminophen (Tylenol -) 325 mg PO Q4H PRN PRN Reason: PAIN LEVEL 1-5 Stop: 02/07/18 15:59 Last Admin: 02/05/18 14:46 Dose: 325 mg Acetaminophen (Tylenol -) 650 mg PO Q4H PRN PRN Reason: PAIN LEVEL 6-10 Stop: 02/07/18 16:00 Last Admin: 02/04/18 18:18 Dose: 650 mg Albuterol/Ipratropium (Duoneb -) 1 amp NEB Q4H PRN PRN Reason: SHORTNESS OF BREATH Allopurinol (Zyloprim -) 100 mg PO DAILY [facility] Last Admin: 02/05/18 09:15 Dose: 100 mg Aspirin (Ecotrin -) 81 mg PO DAILY [facility] Last Admin: 02/05/18 09:15 Dose: 81 mg Atorvastatin Calcium (Lipitor -) 80 mg PO HS [facility] Last Admin: 02/05/18 21:18 Dose: 80 mg Carvedilol (Coreg -) 25 mg PO BID [facility] Last Admin: 02/05/18 21:18 Dose: 25 mg Chlorhexidine Gluconate (Hibiclens For Decolonization -) 1 applic TP [facility] Last Admin: 02/05/18 21:21 Dose: 1 applic Cholecalciferol (Vitamin D3 -) 1,000 unit PO DAILY [facility] Last Admin: 02/05/18 09:15 Dose: 1,000 unit Collagenase (Santyl -) 1 applic TP DAILY [facility]; Protocol Last Admin: 02/05/18 16:04 Dose: 1 applic Docusate Sodium (Colace -) 300 mg PO DAILY [facility] Last Admin: 02/05/18 09:08 Dose: 300 mg Fentanyl (Sublimaze Injection -) 50 mcg IVPUSH [id number] PRN PRN Reason: PAIN-PACU ORDER X 4 DOSES ONLY Last Admin: 02/04/18 16:45 Dose: 50 mcg Furosemide (Lasix -) 40 mg PO DAILY [facility] Last Admin: 02/05/18 09:09 Dose: 40 mg Gabapentin (Neurontin -) 600 mg PO BID [facility] Last Admin: 02/05/18 21:18 Dose: 600 mg Heparin Sodium (Porcine) (Heparin -) 5,000 unit SQ TID [facility] Last Admin: 02/06/18 05:51 Dose: 5,000 unit Insulin Aspart (Novolog Vial Sliding Scale -) 1 vial SQ ACHS [facility]; Protocol Last Admin: 02/06/18 06:01 Dose: 4 units Isosorbide Dinitrate (Isordil -) 20 mg PO TIDISORDIL [facility] Last Admin: 02/06/18 08:59 Dose: 20 mg Mupirocin (Bactroban Ointment (For Decolonization) -) 1 applic NS BID [facility] Stop: 02/10/18 11:19 Last Admin: 02/05/18 21:20 Dose: 1 applic Ondansetron HCl (Zofran Injection) 4 mg IVPUSH Q6H PRN PRN Reason: NAUSEA AND/OR VOMITING Last Admin: 02/05/18 16:04 Dose: 4 mg Oxycodone HCl (Roxicodone -) 5 mg PO Q4H PRN PRN Reason: PAIN LEVEL 1-5 Last Admin: 02/05/18 14:46 Dose: 5 mg Oxycodone HCl (Roxicodone -) 10 mg PO Q4H PRN PRN Reason: PAIN LEVEL 6-10 Last Admin: 02/05/18 01:34 Dose: 10 mg ASSESSMENT AND PLAN: Chronic Pleural Effusion s/p R VATS/pleural biopsy/pneumolysis/partial decortication CAD s/p multivessel stent LV Diastolic Dysfunction Pulmonary HTN HTN DM CKD - pain control - incentive spirometry - O2 to keep SpO2>90% - monitor chest tube output, air leak - f/u pathology, pleural studies - continue ASA, restart plavix when ok with surgery - PO as tolerated - OOB to chair - DVT prophylaxis - can monitor on [place]
[2018-02-06] MEDS ORDERED: SODIUM CHLORIDE 0.45% 1,000 ML IV SCH ×2 (09:45→14:18)
--- NOTE | 2018-02-06 09:52 | PN ---
Physical Exam: SUBJECTIVE: Patient seen and examined this AM. Chest tubes draining red, serosanguineous fluid with air bubbles. The seal around the chest tube was re- adjusted with tape again by Dr. Paul, with flow and tidaling within the tube improved. Pt states his breathing and pain over the R chest wall has improved since yesterday. He is able to speak in full sentences without pausing. He denies any fevers/chills overnight, nausea/vomiting, and has been urinating without difficulty. He has not had a BM, but is passing gas. OBJECTIVE: Vital Signs Period Temp Pulse Resp BP Sys/Desai Pulse Ox Last 24 Hr 97.6 F-98.3 F 49-68 9-17 82-144/41-56 GENERAL: The patient is awake, alert, and fully oriented, in no acute distress. Pt able to lie comfortably and speak full sentences. HEAD: Normal with no signs of trauma. EYES: Extraocular movements intact, sclera anicteric, conjunctiva clear. No ptosis. ENT: External ears normal, nares patent, oropharynx clear without exudates, moist mucous membranes. NECK: Trachea midline, full range of motion, supple. LUNGS: Breath sounds clear over L lung herrera anterior and posterior with no wheezing. Breath sounds in R lung herrera slightly diminshed and coarse anterior and posterior (significantly improved from yesterday), no wheezing. No accessory muscle use. 2 chest tubes draining serosanguineous fluid (~600 from R anterior, ~70 from R lateral). HEART: Regular rate and rhythm, S1, S2 without murmur, rub or gallop. No pitting edema. ABDOMEN: Soft, nontender, nondistended, normoactive bowel sounds, no guarding, no rebound, no hepatosplenomegaly, no masses. EXTREMITIES: 2+ pulses, warm, well-perfused, no edema. NEUROLOGICAL: Cranial nerves II through XII grossly intact. Normal speech, gait not observed. PSYCH: Normal mood, normal affect. SKIN: Warm, dry, normal turgor, no rashes or lesions noted. I/O: additional ~90 cc from anterior tube, ~additional 45 in lateral tube since yesterday. Total I/O: 850/1180 (200 urine) Laboratory Results - last 24 hr 09/06/18 09/06/18 09/06/18 06:03 11:40 11:40 WBC 8.1 RBC 2.98 L Hgb 8.8 L Hct 27.0 L MCV 90.7 MCH 29.6 MCHC 32.7 RDW 15.4 Plt Count 274 MPV 7.8 Absolute Neuts (auto) 7.3 Neutrophils % 90.0 H Lymphocytes % 5.7 L D Monocytes % 4.1 Eosinophils % 0.0 D Basophils % 0.2 Nucleated RBC % 0 Sodium 141 Potassium 6.1 H* Chloride 107 Carbon Dioxide 29 Anion Gap 5 L BUN 53 H Creatinine 1.5 H Creat Clearance w eGFR 45.75 POC Glucometer [phone] Random Glucose 230 H D Calcium 8.2 L Phosphorus 5.1 H D Magnesium 2.3 Total Bilirubin 0.5 AST 14 L D ALT 29 D Alkaline Phosphatase 101 Total Protein 5.6 L Albumin 1.6 L 02/05/18 02/05/18 02/05/18 12:38 14:40 15:00 WBC RBC Hgb Hct MCV MCH MCHC RDW Plt Count MPV Absolute Neuts (auto) Neutrophils % Lymphocytes % Monocytes % Eosinophils % Basophils % Nucleated RBC % Sodium 140 Cancelled Potassium 5.6 H Cancelled Chloride 107 Cancelled Carbon Dioxide 27 Cancelled Anion Gap 7 L Cancelled BUN 55 H Cancelled Creatinine 1.6 H Cancelled Creat Clearance w eGFR 42.46 Cancelled POC Glucometer [phone] Random Glucose 247 H Cancelled Calcium 7.8 L Cancelled Phosphorus Magnesium Total Bilirubin AST ALT Alkaline Phosphatase Total Protein Albumin 02/05/18 02/05/18 02/06/18 17:23 21:28 05:30 WBC 7.2 RBC 2.76 L Hgb 8.1 L Hct 25.2 L MCV 91.1 MCH 29.5 MCHC 32.4 RDW 15.1 Plt Count 237 MPV 7.7 Absolute Neuts (auto) 5.9 Neutrophils % 81.8 Lymphocytes % 11.6 D Monocytes % 5.6 Eosinophils % 0.7 D Basophils % 0.3 Nucleated RBC % 0 Sodium Potassium Chloride Carbon Dioxide Anion Gap BUN Creatinine Creat Clearance w eGFR POC Glucometer [phone] Random Glucose Calcium Phosphorus Magnesium Total Bilirubin AST ALT Alkaline Phosphatase Total Protein Albumin 02/06/18 02/06/18 05:30 05:31 WBC RBC Hgb Hct MCV MCH MCHC RDW Plt Count MPV Absolute Neuts (auto) Neutrophils % Lymphocytes % Monocytes % Eosinophils % Basophils % Nucleated RBC % Sodium 140 Potassium 5.1 Chloride 107 Carbon Dioxide 29 Anion Gap 4 L BUN 59 H Creatinine 2.0 H Creat Clearance w eGFR 32.82 POC Glucometer [phone] Random Glucose 188 H D Calcium 7.7 L Phosphorus 5.0 H Magnesium 2.3 Total Bilirubin 0.5 AST 12 L ALT 24 Alkaline Phosphatase 93 Total Protein 5.5 L Albumin 1.6 L Active Medications Generic Name Dose Route Start Last Admin Trade Name Freq PRN Reason Stop Dose Admin Acetaminophen 650 mg 02/04/18 15:36 Tylenol - PO Q4H PRN FEVER Acetaminophen 325 mg 02/04/18 16:00 02/05/18 14:46 Tylenol - PO 02/07/18 15:59 325 mg Q4H PRN Administration PAIN LEVEL 1-5 Acetaminophen 650 mg 02/04/18 16:01 02/04/18 18:18 Tylenol - PO 02/07/18 16:00 650 mg Q4H PRN Administration PAIN LEVEL 6-10 Albuterol/Ipratropium 1 amp 02/04/18 15:42 Duoneb - NEB Q4H PRN SHORTNESS OF BREATH Allopurinol 100 mg 02/05/18 10:00 02/05/18 09:15 Zyloprim - PO 100 mg DAILY MARY Administration Aspirin 81 mg 02/05/18 10:00 02/05/18 09:15 Ecotrin - PO 81 mg DAILY MARY Administration Atorvastatin Calcium 80 mg 02/04/18 22:00 02/05/18 21:18 Lipitor - PO 80 mg HS MARY Administration Carvedilol 25 mg 02/04/18 22:00 02/05/18 21:18 Coreg - PO 25 mg BID MARY Administration Chlorhexidine Gluconate 1 applic 02/05/18 22:00 02/05/18 21:21 Hibiclens For Decolonization - TP 1 applic HS MARY Administration Cholecalciferol 1,000 unit 02/05/18 10:00 02/05/18 09:15 Vitamin D3 - PO 1,000 unit DAILY MARY Administration Collagenase 1 applic 02/05/18 15:15 02/05/18 16:04 Santyl - TP 1 applic DAILY MARY Administration Protocol Docusate Sodium 300 mg 02/05/18 10:00 02/05/18 09:08 Colace - PO 300 mg DAILY MARY Administration Furosemide 40 mg 02/05/18 10:00 02/05/18 09:09 Lasix - PO 40 mg DAILY MARY Administration Gabapentin 600 mg 02/04/18 22:00 02/05/18 21:18 Neurontin - PO 600 mg BID MARY Administration Heparin Sodium (Porcine) 5,000 unit 02/04/18 22:00 02/06/18 05:51 Heparin - SQ 5,000 unit TID MARY Administration Sodium Chloride 1,000 mls @ 75 mls/hr 02/06/18 09:45 1/2 Normal Saline IV ASDIR MARY Insulin Aspart 1 vial 02/04/18 22:00 02/06/18 06:01 Novolog Vial Sliding Scale - SQ 4 units ACHS MARY Administration Protocol Isosorbide Dinitrate 20 mg 02/04/18 18:00 02/06/18 08:59 Isordil - PO 20 mg TIDISORDIL MARY Administration Mupirocin 1 applic 02/05/18 11:20 02/05/18 21:20 Bactroban Ointment (For Decolonization) - NS 02/10/18 11:19 1 applic BID MARY Administration Ondansetron HCl 4 mg 02/05/18 15:54 02/05/18 16:04 Zofran Injection IVPUSH 4 mg Q6H PRN Administration NAUSEA AND/OR VOMITING Oxycodone HCl 5 mg 02/04/18 16:00 02/05/18 14:46 Roxicodone - PO 5 mg Q4H PRN Administration PAIN LEVEL 1-5 Oxycodone HCl 10 mg 02/04/18 16:01 02/05/18 01:34 Roxicodone - PO 10 mg Q4H PRN Administration PAIN LEVEL 6-10 ASSESSMENT/PLAN: 72 yo M, with PMH of HTN, HLD, sCHF, CAD (6 stents), DM, chronic R pleural effusion, and infected pleurx tube, presents to ICU s/p bronchoscopy, R VATS, partial decortication, and intercostal nerve block performed by Dr. Vale. 1. Pulmonary -Pleural effusion: Duoneb Q4hr, Lasix 40 Qday 1 gm of Ancef was given prior to surgery Holding Lasix today and providing 1/2 NS @75 cc/hr (BUN/Cr today 59/2.0) -Continue to monitor chest tube output: Per Dr. Vale: "continue tubes to - 40 suction to maximize chances of pleural symphysis. Will decrease suction on Friday." Will order daily chest x-ray. R effusion on chest x-ray appeared improved from yesterday. -Oxycodone and Acetaminophen provided for pain PRN, dependent on pain level. 2. CVS (HTN, HLD, CAD/stents/cardiac loop device, CHF) -25 coreg BID, 81 ASA Qday, Isordil 20 Qday -Atorvastatin 80 QHS -Continue to monitor BP and cardiac monitoring 3. Endocrine -DM: Novolog sliding scale 4. Renal -BUN/Cr today (59/2.0), elevated from 53/1.5 yesterday. Providing 1/2 NS @75 cc/ hr. Will continue to monitor and intervene if necessary 5. Electrolytes -HyperK yesterday (reached 6.1). Stat repeat K ordered, no ECG changes/no peaked T waves. Repeat K 5.6, today 5.1 Per primary team, 15 kayexalate was given once Will continue to monitor 6. GI -Zofran 4mg Q6hr scheduled for nausea; no QT prolongation on ECG -Colace PRN for constipation -Will continue to monitor nausea and BM frequency 7. Prophylaxis/ID -SCD b/l -Heparin 5000 TID -PT consult ordered; pt can sit in chair as tolerated. -Mupirocin ordered (prior MRSA in nares). Will re-test to remove from isolation precautions -Will hold Plavix, as pt has increased bleeding risk, per Dr. Vale and Dr. Tabor Dispo: [facility] floor ([facility]) Problem List - Problems (1) S/P thoracostomy tube placement Code(s): Z93.8 - OTHER ARTIFICIAL OPENING STATUS (2) [id number] kidney injury Code(s): N17.9 - ACUTE KIDNEY FAILURE, UNSPECIFIED; N18.9 - CHRONIC KIDNEY DISEASE, UNSPECIFIED (3) CHF (congestive heart failure) Code(s): I50.9 - HEART FAILURE, UNSPECIFIED Qualifiers: Heart failure type: combined systolic and diastolic Heart failure chronicity: chronic Qualified Code(s): I50.42 - 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) heart failure (4) Chronic left systolic heart failure Code(s): I50.22 - CHRONIC SYSTOLIC (CONGESTIVE) HEART FAILURE (5) Diabetes mellitus Code(s): E11.9 - TYPE 2 DIABETES MELLITUS WITHOUT COMPLICATIONS (6) Hyperkalemia Code(s): E87.5 - HYPERKALEMIA (7) S/P coronary artery stent placement Code(s): Z95.5 - PRESENCE OF CORONARY ANGIOPLASTY IMPLANT AND GRAFT (8) HTN (hypertension) Code(s): I10 - ESSENTIAL (PRIMARY) HYPERTENSION Qualifiers: Hypertension type: essential hypertension Qualified Code(s): I10 - Essential (primary) hypertension (9) Hyperlipidemia Code(s): E78.5 - HYPERLIPIDEMIA, UNSPECIFIED Qualifiers: Hyperlipidemia type: pure hypercholesterolemia Qualified Code(s): E78.00 - Pure hypercholesterolemia, unspecified; E78.0 - Pure hypercholesterolemia Visit type - Emergency Visit Emergency Visit: Yes ED Registration Date: 02/04/18 Care time: The patient presented to the Emergency Department on the above date and was hospitalized for further evaluation of their emergent condition. - New Patient This patient is new to me today: No - Critical Care Critical Care patient: Yes Total Critical Care Time (in minutes): 35 Critical Care Statement: The care of this patient involved high complexity decision making to prevent further life threatening deterioration of the patient 's condition and/or to evaluate & treat vital organ system(s) failure or risk of failure. - Discharge Referral Referred to [facility] Yes
[2018-02-06] MEDS: CARVEDILOL 25 MG TABLET (FP) PO SCH ×2 (10:04→21:33)
[2018-02-06] MEDS: ASPIRIN COATED 81 MG TABLET.EC PO SCH (10:04)
[2018-02-06] MEDS: CHOLECALCIFEROL (VITAMIN D3) 1,000 UNIT TABLET (FP) PO SCH (10:04)
[2018-02-06] MEDS: DOCUSATE SODIUM 100 MG CAPSULE (FP) PO SCH (10:05)
[2018-02-06] MEDS: MUPIROCIN 2% TOPICAL OINTMENT FOR DECOLONIZATION NS SCH ×2 (10:05→21:33)
[2018-02-06] MEDS: GABAPENTIN 300 MG CAPSULE (FP) PO SCH ×2 (10:06→21:35)
[2018-02-06] MEDS: ALLOPURINOL 100 MG TABLET (FP) PO SCH (10:19)
[2018-02-06] MEDS ORDERED: INSULIN (NOVOLOG) ASPART 100 UNITS/ML 10ML VIAL ONE (11:01)
[2018-02-06] MEDS: COLLAGENASE CLOSTRIDIUM HIST. 30 GRAMS TUBE TP SCH (11:06)
--- NOTE | 2018-02-06 11:20 | PN ---
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 (short form) - Note 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: 72yo M s/p Right VATS and decorit POD 2. Pt seen at bedside in ICU. Pt states that he is feeling well, states that breathing is improved. Denies n/v, fever, chills. Last Vital Signs Temp Pulse Resp BP Pulse Ox 97.1 F L 67 14 129/61 100 02/06/18 10:00 02/06/18 10:00 02/06/18 10:00 02/06/18 10:00 02/04/18 21:00 CBC, BMP 02/06/18 05:30 02/06/18 05:30 PE: Gen: A&O x3 Resp: breathing comfortably Chest: Right sided chest tubes x 2, in place no erythema. Serosanguinous discharge noted. Ouput Ant: 110ml Lat: 15ml Problem List - Problems (1) S/P thoracostomy tube placement Assessment/Plan: Plan -pt appears to be doing well, pt can be transferred to floor. -continuous suction on chest tubes -chest PT -incentive spirometry -dvt ppx Will continue to follow. Code(s): Z93.8 - OTHER ARTIFICIAL OPENING STATUS
--- NOTE | 2018-02-06 12:50 | PN ---
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, Physician History of Present Illness: He denies chest pain, dyspnea , palpitations, near or true syncope, orthopnea, PND or worsening LE edema, dry weight 170 lbs, off Plavix post-op. 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 [facility] - Current Medication List Current Medications: Active Medications Acetaminophen (Tylenol -) 650 mg PO Q4H PRN PRN Reason: FEVER Acetaminophen (Tylenol -) 325 mg PO Q4H PRN PRN Reason: PAIN LEVEL 1-5 Stop: 02/07/18 15:59 Last Admin: 02/05/18 14:46 Dose: 325 mg Acetaminophen (Tylenol -) 650 mg PO Q4H PRN PRN Reason: PAIN LEVEL 6-10 Stop: 02/07/18 16:00 Last Admin: 02/04/18 18:18 Dose: 650 mg Albuterol/Ipratropium (Duoneb -) 1 amp NEB Q4H PRN PRN Reason: SHORTNESS OF BREATH Allopurinol (Zyloprim -) 100 mg PO DAILY [facility] Last Admin: 02/06/18 10:19 Dose: 100 mg Aspirin (Ecotrin -) 81 mg PO DAILY [facility] Last Admin: 02/06/18 10:04 Dose: 81 mg Atorvastatin Calcium (Lipitor -) 80 mg PO HS [facility] Last Admin: 02/05/18 21:18 Dose: 80 mg Carvedilol (Coreg -) 25 mg PO BID [facility] Last Admin: 02/06/18 10:04 Dose: 25 mg Chlorhexidine Gluconate (Hibiclens For Decolonization -) 1 applic TP HS [facility] Last Admin: 02/05/18 21:21 Dose: 1 applic Cholecalciferol (Vitamin D3 -) 1,000 unit PO DAILY [facility] Last Admin: 02/06/18 10:04 Dose: 1,000 unit Collagenase (Santyl -) 1 applic TP DAILY [facility]; Protocol Last Admin: 02/06/18 11:06 Dose: 1 applic Docusate Sodium (Colace -) 300 mg PO DAILY [facility] Last Admin: 02/06/18 10:05 Dose: 300 mg Furosemide (Lasix -) 40 mg PO DAILY [facility] Last Admin: 02/05/18 09:09 Dose: 40 mg Gabapentin (Neurontin -) 600 mg PO BID [facility] Last Admin: 02/06/18 10:06 Dose: 600 mg Heparin Sodium (Porcine) (Heparin -) 5,000 unit SQ TID [facility] Last Admin: 02/06/18 05:51 Dose: 5,000 unit Sodium Chloride (1/2 Normal Saline) 1,000 mls @ 75 mls/hr IV ASDIR [facility] Last Admin: 02/06/18 10:05 Dose: 75 mls/hr Insulin Aspart (Novolog Vial Sliding Scale -) 1 vial SQ ACHS [facility]; Protocol Last Admin: 02/06/18 11:06 Dose: 4 units Isosorbide Dinitrate (Isordil -) 20 mg PO TIDISORDIL [facility] Last Admin: 02/06/18 12:45 Dose: 20 mg Mupirocin (Bactroban Ointment (For Decolonization) -) 1 applic NS BID [facility] Stop: 02/10/18 11:19 Last Admin: 02/06/18 10:05 Dose: 1 applic Ondansetron HCl (Zofran Injection) 4 mg IVPUSH Q6H PRN PRN Reason: NAUSEA AND/OR VOMITING Last Admin: 02/05/18 16:04 Dose: 4 mg Oxycodone HCl (Roxicodone -) 5 mg PO Q4H PRN PRN Reason: PAIN LEVEL 1-5 Last Admin: 02/05/18 14:46 Dose: 5 mg Oxycodone HCl (Roxicodone -) 10 mg PO Q4H PRN PRN Reason: PAIN LEVEL 6-10 Last Admin: 02/05/18 01:34 Dose: 10 mg - Objective Vital Signs: Vital Signs Temperature 97.1 F L 02/06/18 10:00 Pulse Rate 65 02/06/18 12:00 Respiratory Rate 15 02/06/18 12:00 Blood Pressure 110/46 02/06/18 12:00 O2 Sat by Pulse Oximetry (%) 100 02/04/18 21:00 Constitutional: Yes: No Distress, Calm Neck: Yes: Supple Cardiovascular: Yes: Regular Rate and Rhythm Respiratory: Yes: Regular, Diminished, On Nasal O2, Other (Right-sided chest tube) Edema: No Labs: CBC, BMP 02/06/18 05:30 02/06/18 05:30 - ....Imaging Chest X-ray: Report Reviewed (Improved right aeration) Problem List - Problems (1) S/P thoracostomy tube placement Code(s): Z93.8 - OTHER ARTIFICIAL OPENING STATUS (2) CKD (chronic kidney disease) Code(s): N18.9 - CHRONIC KIDNEY DISEASE, UNSPECIFIED Qualifiers: Chronic kidney disease stage: stage 2 (mild) Qualified Code(s): N18.2 - Chronic kidney disease, stage 2 (mild) (3) Chronic left systolic heart failure Code(s): I50.22 - CHRONIC SYSTOLIC (CONGESTIVE) HEART FAILURE (4) Diastolic dysfunction without heart failure Code(s): I51.89 - OTHER ILL-DEFINED HEART DISEASES (5) Hyperkalemia Code(s): E87.5 - HYPERKALEMIA (6) Pleural effusion Code(s): J90 - PLEURAL EFFUSION, NOT ELSEWHERE CLASSIFIED (7) Pulmonary hypertension Code(s): I27.2 - OTHER SECONDARY PULMONARY HYPERTENSION * DO NOT USE * (8) S/P coronary artery stent placement Code(s): Z95.5 - PRESENCE OF CORONARY ANGIOPLASTY IMPLANT AND GRAFT (9) CAD (coronary artery disease) Code(s): I25.10 - ATHSCL HEART DISEASE OF [place] CORONARY ARTERY W/O ANG PCTRS Qualifiers: Coronary Disease-Associated Artery/Lesion type: [place] artery [place] vs. transplanted heart: [place] heart Associated angina: without angina Qualified Code(s): I25.10 - Atherosclerotic heart disease of [place] coronary artery without angina pectoris (10) HTN (hypertension) Code(s): I10 - ESSENTIAL (PRIMARY) HYPERTENSION Qualifiers: Hypertension type: essential hypertension Qualified Code(s): I10 - Essential (primary) hypertension (11) Hyperlipidemia Code(s): E78.5 - HYPERLIPIDEMIA, UNSPECIFIED Qualifiers: Hyperlipidemia type: pure hypercholesterolemia Qualified Code(s): E78.00 - Pure hypercholesterolemia, unspecified; E78.0 - Pure hypercholesterolemia (12) Insulin dependent diabetes mellitus Code(s): E11.9 - TYPE 2 DIABETES MELLITUS WITHOUT COMPLICATIONS; Z79.4 - MILLER KIL[place] DRIED SALT (CURRENT) USE OF INSULIN Assessment/Plan 10/17 Echo: Normal LV size and low normal LVEF 50% improved from 07/2016 Rotablation WYATT prox LAD, prox LCx and mid LCx for ISR with improvement on LV fxn s/p anterolateral VT s/p BMS LAD, ramus USA s/p BMS LCx 1. POD#2 R VATS pneumolysis, pleural biopsy and partial decortication to expand lung with chronic loculated non-draining right effusion despite TPA. He is stable cardiovascular-phan. 2. CAD h/o VT, s/p multivessel stent 3. Type 2 DM 4. HTN 5. Diastolic dysfunction, pulm HTN 6. CKD with h/o hyperkalemia on entresto since d/simon P:1. As previously recommended, resumed Plavix once hemostasis assured per CTS. Given the proximal nature of his LAD and LCx stents continue ASA 81 qd during the perioperative period to decrease risk of catastrophic very late stent thrombosis while off both antiplatelet agents. 2. Continue ASA 81 qd, Lipitor 80 qd, carvedilol 25 bid, isordil 20 tid, Lasix 40 qd, not on YUKI-I/ARB due to hyperkalemia 3. Patient has plans for Lexiscan MIBI at Dr. Chacon's office later in year, he saw him last December 01, 2017 4. Analgesia, BD prn, IS, FIO2 to maintain saO2>90%, monitor chest tube output, air leak, f/u pathology, pleural studies, OOB to chair, DVT prophylaxis
[2018-02-06] MEDS: oxyCODONE HCL 5 MG TABLET PO PRN (13:07)
[2018-02-06] MEDS ORDERED: ALBUTEROL SO4 2.5/IPRATROPIUM 0.5 INH SOL 3 ML VIAL.NEB. NEB PRN (14:18)
[2018-02-06] MEDS ORDERED: oxyCODONE HCL 5 MG TABLET PO PRN (14:18)
[2018-02-06] MEDS ORDERED: ACETAMINOPHEN 325 MG TABLET (FP) PO PRN ×2 (14:18)
[2018-02-06] MEDS ORDERED: ONDANSETRON 4 MG/2 ML VIAL IVPUSH PRN (14:18)
--- NOTE | 2018-02-06 14:31 | PATH ---
Surgical Pathology Report Patient Name: ROSA MARIA GAGE [facility]. Rec. 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 Specimen(s) Received A: PLEURAL CONTENTS B: PLEURA CONTENTS Clinical History Pleural effusion Intraoperative Consult Diagnosis Pleural contents: Negative for malignancy. Jared Rdz M.D., 02/04/18 Final Diagnosis A. PLEURAL CONTENTS, RIGHT, BIOPSY (FS): FIBROMEMBRANOUS TISSUE WITH MODERATE LYMPHOPLASMACYTIC AND HISTIOCYTIC INFILTRATE, LYMPHOID AGGREGATES, AND REACTIVE CHANGES IN A BACKGROUND OF BLOOD AND FIBRINOUS MATERIAL. NO MALIGNANCY IDENTIFIED. B. PLEURAL CONTENTS, RIGHT, VATS, DECORTICATION: FIBROMEMBRANOUS TISSUE WITH MILD LYMPHOPLASMACYTIC AND HISTIOCYTIC INFILTRATE, AND REACTIVE CHANGES IN A BACKGROUND OF FIBRINOUS MATERIAL AND BLOOD. NO MALIGNANCY IDENTIFIED. Electronically Signed Magaly Juares M.D. Gross Description A. Received fresh labeled "pleura," is a 2.0 x 2.0 x 0.1 cm aggregate of bentley red soft tissue fragments, consistent with portions of pleura. The specimen is submitted in toto for frozen section. The frozen section residue is entirely submitted in one cassette. B. Received in formalin labeled "pleural contents," is a 5.5 x 4.4 x 0.6 cm aggregate of bentley pham portions of soft tissue, consistent with pleura. Import Coordination And Production Head sections are submitted in 4 cassettes. /02/04/201802/04/2018
--- NOTE | 2018-02-06 16:39 | PATH ---
Cytology Non-Gynecological Report Patient Name: ROSA MARIA GAGE [facility]. Rec. 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 Specimen(s) Received PLEURAL FLUID Clinical History Pleural effusion Final Diagnosis PLEURAL FLUID FOR CYTOLOGY: SATISFACTORY FOR EVALUATION MACROPHAGES AND RARE LYMPHOCYTES IN A BACKGROUND OF PROTEINACEOUS MATERIAL. SKELETAL MUSCLE AND FIBRIN BEST SEEN IN CELL BLOCK NOTED. Comment: See surgical material from pleura ([id number]). Electronically Signed Magaly Juares M.D. Gross Description Approximately 20 cc of opaque fluid received fresh. One cytofunnel Pap stained and one cellblock prepared.
[2018-02-06] MEDS: CLOPIDOGREL BISULFATE 75 MG TABLET (FP) PO SCH (17:00)
--- NOTE | 2018-02-06 17:42 | PN ---
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 (short form) - Note 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: ID consult dictated Imp/reccd 72 year old man history of recurrent pleural effusion- he had a pleurx for several months was admitted last month with a clogged plurx catheter and received tpa had some fevers and was treated for pneumonia noted to have several skin cherie pathogens in the pleural fluid at that time set most likely contaminants from the clogged tube noted to have locultaed effusion admitted end of december for catheter removal readmitted 02/04 for Vats now with 2 chest tubes feels well history of nares MRSA colonization pleural fluid very rare coag negative staph no need to treat contact isolation MRSA colonization of nares management chest tubes per surgery please call back if needed
--- NOTE | 2018-02-06 19:41 | PN ---
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, Physician Chief Complaint: S/p VATS and partial right lung decortication for recurrent right pleural effusion, day #3. I examined the patient in the evening. He is comfortable and says that his respiratory status improved compared to yesterday. He can inhale approximately 700cc with his incentive spirometer and denies dyspnea, or palpitations. He tolerates well the right hemithorax pain and does not require opioid pain medications. He ate food brought from home including Maltese fries which elevated his glycemc levels. The patient did not have a bowel movement after the administration of Kayexalate yesterday. Overall he did not feel as good for a long time and wants to go "back to work" as soon as possible. His 2 chest tubes are draining fluid that seems slightly more hemorrhagic then yesterday afternoon, but in a smaller amount. The top installer showed stable rhythm. - Current Medication List Current Medications: Active Medications Acetaminophen (Tylenol -) 650 mg PO Q4H PRN PRN Reason: FEVER Acetaminophen (Tylenol -) 325 mg PO Q4H PRN PRN Reason: PAIN LEVEL 1-5 Stop: 02/07/18 15:59 Acetaminophen (Tylenol -) 650 mg PO Q4H PRN PRN Reason: PAIN LEVEL 6-10 Stop: 02/07/18 16:00 Albuterol/Ipratropium (Duoneb -) 1 amp NEB Q4H PRN PRN Reason: SHORTNESS OF BREATH Allopurinol (Zyloprim -) 100 mg PO DAILY [facility] Aspirin (Ecotrin -) 81 mg PO DAILY [facility] Atorvastatin Calcium (Lipitor -) 80 mg PO HS [facility] Carvedilol (Coreg -) 25 mg PO BID [facility] Chlorhexidine Gluconate (Hibiclens For Decolonization -) 1 applic TP HS [facility] Cholecalciferol (Vitamin D3 -) 1,000 unit PO DAILY [facility] Clopidogrel Bisulfate (Plavix -) 75 mg PO DAILY [facility] Last Admin: 02/06/18 17:00 Dose: 75 mg Collagenase (Santyl -) 1 applic TP DAILY [facility]; Protocol Docusate Sodium (Colace -) 300 mg PO DAILY [facility] Furosemide (Lasix -) 40 mg PO DAILY [facility] Gabapentin (Neurontin -) 600 mg PO BID [facility] Insulin Aspart (Novolog Vial Sliding Scale -) 1 vial SQ ACHS [facility]; Protocol Last Admin: 02/06/18 15:59 Dose: 8 units Isosorbide Dinitrate (Isordil -) 20 mg PO TIDISORDIL [facility] Last Admin: 02/06/18 17:30 Dose: 20 mg Mupirocin (Bactroban Ointment (For Decolonization) -) 1 applic NS BID [facility] Stop: 02/10/18 11:19 Ondansetron HCl (Zofran Injection) 4 mg IVPUSH Q6H PRN PRN Reason: NAUSEA AND/OR VOMITING Oxycodone HCl (Roxicodone -) 5 mg PO Q4H PRN PRN Reason: PAIN LEVEL 1-5 Oxycodone HCl (Roxicodone -) 10 mg PO Q4H PRN PRN Reason: PAIN LEVEL 6-10 - Objective Vital Signs: Vital Signs Temperature 97.1 F L 02/06/18 10:00 Pulse Rate 72 02/06/18 18:00 Respiratory Rate 17 02/06/18 18:00 Blood Pressure 107/48 02/06/18 18:00 O2 Sat by Pulse Oximetry (%) 100 02/04/18 21:00 Constitutional: Yes: No Distress, Calm Eyes: Yes: Conjunctiva Clear, EOM Intact HENT: Yes: Atraumatic, Normocephalic Neck: Yes: Supple Cardiovascular: Yes: Regular Rate and Rhythm, S1, S2 Respiratory: Yes: Regular, CTA Bilaterally, On Nasal O2. No: Dullness, Rales, Rhonchi, SOB, SOB on Exertion, Tachypnea, Wheezes Gastrointestinal: Yes: Normal Bowel Sounds, Abdomen, Obese. No: Hepatomegaly, Splenomegaly Edema: No Peripheral Pulses WNL: Yes Integumentary: Yes: Other (stae 2 sacral decubitus ulcer) Wound/Incision: Yes: Other (right hemitghorax chest tubes, hemorrhagic fluid draining, slightly darker then yesterday) Neurological: Yes: Alert, Oriented Psychiatric: Yes: Alert, Oriented Labs: CBC, BMP 02/06/18 05:30 02/06/18 05:30 Problem List - Problems (1) S/P thoracostomy tube placement Assessment/Plan: DAY 3 POST PROCEDURE the patient is alert and comfortable, saying that he is breathing better chest tube draining hemorrhagic fluid, darker than yesterday hold Heparin 5000iu q8 for now, continue SCD fluid showing low count MSSA, no PMN's, possible contamination ID consult appreciated await final results and hold off antibiotics Code(s): Z93.8 - OTHER ARTIFICIAL OPENING STATUS (2) S/P coronary artery stent placement Assessment/Plan: Plavix on hold for now until pleural fluid less hemorrhagic, awaiting for the thoracic surgery input in am continue ASA 81 mg daily EKG in am Code(s): Z95.5 - PRESENCE OF CORONARY ANGIOPLASTY IMPLANT AND GRAFT (3) CKD (chronic kidney disease) Assessment/Plan: the patient's creatinine has been 1.9-2 and requires diuresis stop IV fluid for now since there was no hypotension and the patient has good po intake continue Nepro and avoid Glucerna monitor K, change diet to renal diabetic low sodium diet, repeat k level today since elevated LAsix changed to 20 m g po daily Code(s): N18.9 - CHRONIC KIDNEY DISEASE, UNSPECIFIED Qualifiers: Chronic kidney disease stage: stage 5, not on chronic dialysis Qualified Code(s): N18.5 - Chronic kidney disease, stage 5 (4) Chronic hyperkalemia Assessment/Plan: monitor K managed as outpatient with intermittent doses of Kayexalate will continue the same in hospital in conjunction with low K diet Code(s): E87.5 - HYPERKALEMIA (5) Pressure ulcer of sacral region, stage 2 Assessment/Plan: Santyl daily to the sacrum Code(s): L89.152 - PRESSURE ULCER OF SACRAL REGION, STAGE 2 (6) CHF (congestive heart failure) Assessment/Plan: LAsix restarted, it will help bring down k levels Isordil 20 mg po tid monitor hydration status avid overload with iv fluids d/c / NS Code(s): I50.9 - HEART FAILURE, UNSPECIFIED Qualifiers: Heart failure type: combined systolic and diastolic Heart failure chronicity: chronic Qualified Code(s): I50.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
[2018-02-06] MEDS: CHLORHEXIDINE GLUCONATE 4% CLEANSER FOR DECOLONIZATION TP SCH (21:34)
[2018-02-06] MEDS: ATORVASTATIN CA 80 MG TABLET (FP) PO SCH (21:35)
[2018-02-06] MEDS ORDERED: HEPARIN NA (PORCINE) 5,000 UNITS/ML 1ML VIAL SQ SCH (22:00)
[2018-02-07] MEDS: ACETAMINOPHEN 325 MG TABLET (FP) PO PRN (05:14)
[2018-02-07] MEDS: INSULIN SLIDING SCALE (NOVOLOG) 1 VIAL SQ SCH ×4 (06:05→21:31)
[2018-02-07 06:29] LABS: BASO % 0.4 % (0-2.0); EOS % 2.6 % (0-4.5); HEMATOCRIT 25.6 % (35.4-49); HEMOGLOBIN 8.3 GM/dL (11.7-16.9); LYMPH % 17.9 % (8-40); MCH 29.4 pg (25.7-33.7); MCHC 32.3 g/dl (32.0-35.9); MEAN CELL VOLUME 91.1 fl (80-96); MEAN PLT VOLUME 7.7 fl (7.5-11.1); MONO % 8.3 % (3.8-10.2); NEUT % 70.8 % (42.8-82.8); PLATELET COUNT 215 K/MM3 (134-434); RBC 2.81 M/mm3 (4.00-5.60); RDW 15.5 % (11.9-15.9); WHITE BLOOD COUNT 4.8 K/mm3 (4.0-10.0)
[2018-02-07 06:51] LABS: ALBUMIN 1.7 g/dl (3.4-5.0); ANION GAP 10 MMOL/L (8-16); BLOOD UREA NITROGEN 58 mg/dL (7-18); CALCIUM 7.7 mg/dL (8.5-10.1); CHLORIDE 106 mmol/L (98-107); CO2 26 mmol/L (21-32); GLUCOSE,RANDOM 211 mg/dL (74-106); MAGNESIUM 2.2 mg/dL (1.8-2.4); POTASSIUM 5.1 mmol/L (3.5-5.1); SODIUM 142 mmol/L (136-145)
[2018-02-07 06:55] LABS: ALK PHOS 110 U/L (45-117); BILIRUBIN,TOTAL 0.4 mg/dL (0.2-1.0); CREATININE 1.8 mg/dL (0.7-1.3); PHOSPHOROUS 4.3 mg/dL (2.5-4.9); SGOT/AST 12 U/L (15-37); SGPT/ALT 25 U/L (12-78); TOT PROT 5.7 g/dl (6.4-8.2)
--- NOTE | 2018-02-07 08:29 | CONS ---
DATE OF CONSULTATION: DATE OF DICTATION: 02/07/2018 REQUESTING PHYSICIAN: Siobhan Mondragon MD HISTORY: This is a 72-year-old man I know from his admission in mid-December. When he came to the hospital he had a longstanding PleurX for a chronic effusion that was being drained at home for about the last 6 months. He had pain at the site of the catheter and had minimal drainage from there. He was noted to have an infiltrate and a loculated effusion. He was given tPA through the catheter. It drained. He had some cultures that grew skin cherie. He had some intermittent fever for 72 hours and was treated with vancomycin and ceftriaxone. He was discharged on Augmentin. He was seen by Dr. Vale at that time. Consideration for VATS was made with plans for outpatient follow up. He did well and went home. He was readmitted for diminished drainage again from the PleurX. At the end of December, the PleurX catheter was removed, and plans were made for a VATS. He was admitted on the , and he underwent VATS. At that time, he was treated perioperatively with cefazolin. He was noted to have fibrinous exudate in the chest with a 200-mL effusion and adhesions. He underwent bronchoscopy, a VATS, partial decortication, and 2 chest tubes were placed. I am asked to see him for his prior history of MRSA and recent surgery. He is currently awake and alert without any complaints. He feels well. He has had no fevers or chills. PAST MEDICAL HISTORY: Notable for coronary artery disease with stent, congestive heart failure, which is felt to be the basis of his chronic effusion, skin cancer, COPD, chronic right pleural effusion, hypertension, hyperlipidemia, and diabetes. PAST SURGICAL HISTORY: Notable for hernia repair, cardiac stents, the PleurX catheter, and now the recent VATS. ALLERGIES: ACTOS. MEDICATIONS: At home at the time of admission included Isordil, Neurontin, furosemide, Dulcolax. His Plavix was on hold. Vitamin D, Coreg, Lipitor, Ecotrin, Zyloprim. SOCIAL HISTORY: He lives with his . 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 He quit smoking 35 years ago. No history of substance use. FAMILY HISTORY: Noncontributory. REVIEW OF SYSTEMS: Reports currently feeling great. He had no fever after discharge, and he feels well. PHYSICAL EXAMINATION: General: He is a pleasant man in no acute distress. Vital Signs: He has been afebrile since admission. Temperature 97.1, pulse 129, pulse 67, blood pressure 129/61, respiratory rate is 14. HEENT: He is normocephalic. Eyes are anicteric. Neck: Supple. Lungs: Some diminished breath sounds at the bases. He has [address] draining blood-tinged fluid. Abdomen: Soft. Extremities: Without edema. DIAGNOSTIC DATA: White count is 7.2, hemoglobin 8.1, platelets 237. Chemistries: BUN 59, creatinine 2. Pleural fluid showed 539 white cells with 57,000 red cells. Bronchial culture is negative. Pleural fluid culture, which was repeated prior to his discharge, was negative and is growing very rare coagulase-negative staphylococcus. Chest x-ray shows slight improvement at the right hemithorax. Chest x-ray shows 2 right chest tubes and better aeration in the right lung. In summary, this is a 72-year-old man with a history of MRSA colonization of his nares status post VATS for loculated effusion. I do not think he has an active lung infection at this time. No need to treat. Would maintain contact isolation for the MRSA and management of the chest tube per surgery. Please call back if needed. GRECIA MUNGUIA M.D. [id number]
--- NOTE | 2018-02-07 08:39 | PN ---
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, Physician Chief Complaint: S/p VATS and partial right lung decortication for recurrent right pleural effusion doing well day 4 # s/p procedure, the chest tube is draining hemorrhagic fluid purchasing intern in color compared to last evening. The patient had a couple of runs of V tach last night. his electrolyte panel is pending. He is comfortable, denies left side chest pain, denies dyspnea, right side chest pain is well tolerated and present with movements. - Current Medication List Current Medications: Active Medications Acetaminophen (Tylenol -) 650 mg PO Q4H PRN PRN Reason: FEVER Last Admin: 02/07/18 05:14 Dose: 650 mg Acetaminophen (Tylenol -) 325 mg PO Q4H PRN PRN Reason: PAIN LEVEL 1-5 Stop: 02/07/18 15:59 Acetaminophen (Tylenol -) 650 mg PO Q4H PRN PRN Reason: PAIN LEVEL 6-10 Stop: 02/07/18 16:00 Albuterol/Ipratropium (Duoneb -) 1 amp NEB Q4H PRN PRN Reason: SHORTNESS OF BREATH Allopurinol (Zyloprim -) 100 mg PO DAILY [facility] Aspirin (Ecotrin -) 81 mg PO DAILY [facility] Atorvastatin Calcium (Lipitor -) 80 mg PO HS [facility] Last Admin: 02/06/18 21:35 Dose: 80 mg Carvedilol (Coreg -) 25 mg PO BID [facility] Last Admin: 02/06/18 21:33 Dose: 25 mg Chlorhexidine Gluconate (Hibiclens For Decolonization -) 1 applic TP HS [facility] Last Admin: 02/06/18 21:34 Dose: 1 applic Cholecalciferol (Vitamin D3 -) 1,000 unit PO DAILY [facility] Clopidogrel Bisulfate (Plavix -) 75 mg PO DAILY [facility] Last Admin: 02/06/18 17:00 Dose: 75 mg Collagenase (Santyl -) 1 applic TP DAILY [facility]; Protocol Docusate Sodium (Colace -) 300 mg PO DAILY [facility] Furosemide (Lasix -) 20 mg PO DAILY [facility] Gabapentin (Neurontin -) 600 mg PO BID [facility] Last Admin: 02/06/18 21:35 Dose: 600 mg Insulin Aspart (Novolog Vial Sliding Scale -) 1 vial SQ ACHS [facility]; Protocol Last Admin: 02/07/18 06:05 Dose: 4 units Isosorbide Dinitrate (Isordil -) 20 mg PO TIDISORDIL [facility] Last Admin: 02/06/18 17:30 Dose: 20 mg Mupirocin (Bactroban Ointment (For Decolonization) -) 1 applic NS BID [facility] Stop: 02/10/18 11:19 Last Admin: 02/06/18 21:33 Dose: 1 applic Ondansetron HCl (Zofran Injection) 4 mg IVPUSH Q6H PRN PRN Reason: NAUSEA AND/OR VOMITING Oxycodone HCl (Roxicodone -) 5 mg PO Q4H PRN PRN Reason: PAIN LEVEL 1-5 Last Admin: 02/07/18 05:13 Dose: 5 mg Oxycodone HCl (Roxicodone -) 10 mg PO Q4H PRN PRN Reason: PAIN LEVEL 6-10 - Objective Vital Signs: Vital Signs Temperature 98.1 F 02/07/18 08:00 Pulse Rate 72 02/07/18 08:00 Respiratory Rate 18 02/07/18 08:00 Blood Pressure 115/58 02/07/18 08:00 O2 Sat by Pulse Oximetry (%) 100 02/04/18 21:00 Constitutional: Yes: No Distress, Calm Eyes: Yes: Conjunctiva Clear, EOM Intact HENT: Yes: Atraumatic, Normocephalic Neck: Yes: Supple, Trachea Midline Cardiovascular: Yes: Regular Rate and Rhythm, S1, S2, Other (no calf tenderness) Respiratory: Yes: Regular, CTA Bilaterally, On Nasal O2, Other (2 chest tubes present in the right hemithorax, draining hemorhagic fluid, but lighte in color compared to last night, the amount of fluid is decreasing). No: Orthopnea, Rhonchi, SOB Gastrointestinal: Yes: Normal Bowel Sounds, Soft, Abdomen, Obese. No: Hepatomegaly, Splenomegaly ...Rectal Exam: Yes: Deferred Breast(s): Yes: WNL Extremities: No: Calf Tenderness Edema: No Peripheral Pulses WNL: Yes Wound/Incision: Yes: Other (right hemithorax chest tube isertion areas x2, with no inflammation, and no discharge) Neurological: Yes: Alert, Oriented Psychiatric: Yes: Alert, Oriented Labs: CBC, BMP 02/07/18 05:30 02/07/18 05:30 - ....Imaging X-ray: Other (pending) EKG: Other (EKG this am is pending,had 3 runs of V tack last night) Problem List - Problems (1) S/P thoracostomy tube placement Assessment/Plan: DAY 4 POST PROCEDURE the patient is alert and comfortable, saying that he is breathing better chest tube draining hemorrhagic fluid purchasing intern in color compared to last night, heparin sc was discontinued Code(s): Z93.8 - OTHER ARTIFICIAL OPENING STATUS (2) S/P coronary artery stent placement Assessment/Plan: confirmed with patient and procedure done in spring will start Plavix now as per CT recruiting operations consultant, Dr. Vale continue ASA 81 mg daily drainage fluid is light in color will continue monitoring color and amount Code(s): Z95.5 - PRESENCE OF CORONARY ANGIOPLASTY IMPLANT AND GRAFT (3) Diabetes mellitus type 2 with complications Assessment/Plan: nephropathy complications continue accuchecks with JOSR Nepro for supplenemts Code(s): E11.8 - TYPE 2 DIABETES MELLITUS WITH UNSPECIFIED COMPLICATIONS (4) Pressure ulcer of sacral region, stage 2 Assessment/Plan: Santyl daily to the sacrum Code(s): L89.152 - PRESSURE ULCER OF SACRAL REGION, STAGE 2 (5) CKD (chronic kidney disease) Assessment/Plan: monitor K, change diet to renal diabetic low sodium diet, repeat k level today since elevated EKG without acute hyperkaliemia changes add Nepro due to poor nutritional status Lasix on hold and decreased the dosage to 20 mg daily, will start LAsix probably tomorrow, while checking the CXR for today( CXR form this am is pending ) Code(s): N18.9 - CHRONIC KIDNEY DISEASE, UNSPECIFIED Qualifiers: Chronic kidney disease stage: stage 5, not on chronic dialysis Qualified Code(s): N18.5 - Chronic kidney disease, stage 5 (6) CHF (congestive heart failure) Assessment/Plan: LAsix 20 mg daily to be restarted today or tomorrow according to CXR look, the patient is not clinically fluid overloaded during my examintion Isordil 20 mg po tid monitor hydration status Code(s): I50.9 - HEART FAILURE, UNSPECIFIED Qualifiers: Heart failure type: combined systolic and diastolic Heart failure chronicity: chronic Qualified Code(s): I50.42 - 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) heart failure (7) MRSA (methicillin resistant Staphylococcus aureus) colonization Assessment/Plan: applications of Mupirocin intra nasally Code(s): Z22.322 - CARRIER OR SUSPECTED CARRIER OF METHICILLIN RESIS STAPH (8) Chronic hyperkalemia Assessment/Plan: monitor K use kionix as needed Code(s): E87.5 - HYPERKALEMIA
[2018-02-07] MEDS: ISOSORBIDE DINITRATE 20 MG TABLET (FP) PO SCH ×3 (09:00→17:19)
[2018-02-07] MEDS: DOCUSATE SODIUM 100 MG CAPSULE (FP) PO SCH (09:24)
[2018-02-07] MEDS: CLOPIDOGREL BISULFATE 75 MG TABLET (FP) PO SCH (09:24)
[2018-02-07] MEDS: CARVEDILOL 25 MG TABLET (FP) PO SCH ×2 (09:24→21:25)
[2018-02-07] MEDS: ASPIRIN COATED 81 MG TABLET.EC PO SCH (09:25)
[2018-02-07] MEDS: CHOLECALCIFEROL (VITAMIN D3) 1,000 UNIT TABLET (FP) PO SCH (09:25)
[2018-02-07] MEDS: GABAPENTIN 300 MG CAPSULE (FP) PO SCH ×2 (09:25→21:25)
[2018-02-07] MEDS: ALLOPURINOL 100 MG TABLET (FP) PO SCH (09:25)
[2018-02-07] MEDS: MUPIROCIN 2% TOPICAL OINTMENT FOR DECOLONIZATION NS SCH ×2 (09:29→21:34)
[2018-02-07] MEDS: FUROSEMIDE 20 MG TABLET (FP) PO SCH (09:29)
[2018-02-07] MEDS: COLLAGENASE CLOSTRIDIUM HIST. 30 GRAMS TUBE TP SCH (09:30)
[2018-02-07] MEDS ORDERED: CLOPIDOGREL BISULFATE 75 MG TABLET (FP) PO SCH (10:00)
[2018-02-07] MEDS ORDERED: FUROSEMIDE 40 MG TABLET (FP) PO SCH (10:00)
--- NOTE | 2018-02-07 10:11 | PN ---
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 (short form) - Note 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: Seen and examined in the ICU Denies: CP/SOB/f/c/n/diarrhea afebrile, BP stable, Hgb stable Sat 90% on RA, placed on 1lpm 02 Chest tubes with ~175ml of serogan fluid w/ persistent air leak on anterior tube (#2) Current Medications Acetaminophen (Tylenol -) 650 mg PO Q4H PRN PRN Reason: FEVER Last Admin: 02/07/18 05:14 Dose: 650 mg Acetaminophen (Tylenol -) 325 mg PO Q4H PRN PRN Reason: PAIN LEVEL 1-5 Stop: 02/07/18 15:59 Acetaminophen (Tylenol -) 650 mg PO Q4H PRN PRN Reason: PAIN LEVEL 6-10 Stop: 02/07/18 16:00 Albuterol/Ipratropium (Duoneb -) 1 amp NEB Q4H PRN PRN Reason: SHORTNESS OF BREATH Allopurinol (Zyloprim -) 100 mg PO DAILY [facility] Last Admin: 02/07/18 09:25 Dose: 100 mg Aspirin (Ecotrin -) 81 mg PO DAILY [facility] Last Admin: 02/07/18 09:25 Dose: 81 mg Atorvastatin Calcium (Lipitor -) 80 mg PO HS [facility] Last Admin: 02/06/18 21:35 Dose: 80 mg Carvedilol (Coreg -) 25 mg PO BID [facility] Last Admin: 02/07/18 09:24 Dose: 25 mg Chlorhexidine Gluconate (Hibiclens For Decolonization -) 1 applic TP HS [facility] Last Admin: 02/06/18 21:34 Dose: 1 applic Cholecalciferol (Vitamin D3 -) 1,000 unit PO DAILY [facility] Last Admin: 02/07/18 09:25 Dose: 1,000 unit Clopidogrel Bisulfate (Plavix -) 75 mg PO DAILY [facility] Last Admin: 02/07/18 09:24 Dose: 75 mg Collagenase (Santyl -) 1 applic TP DAILY [facility]; Protocol Last Admin: 02/07/18 09:30 Dose: 1 applic Docusate Sodium (Colace -) 300 mg PO DAILY [facility] Last Admin: 02/07/18 09:24 Dose: 300 mg Furosemide (Lasix -) 20 mg PO DAILY [facility] Last Admin: 02/07/18 09:29 Dose: 20 mg Gabapentin (Neurontin -) 600 mg PO BID [facility] Last Admin: 02/07/18 09:25 Dose: 600 mg Insulin Aspart (Novolog Vial Sliding Scale -) 1 vial SQ ACHS [facility]; Protocol Last Admin: 02/07/18 06:05 Dose: 4 units Isosorbide Dinitrate (Isordil -) 20 mg PO TIDISORDIL [facility] Last Admin: 02/07/18 09:00 Dose: 20 mg Mupirocin (Bactroban Ointment (For Decolonization) -) 1 applic NS BID [facility] Stop: 02/10/18 11:19 Last Admin: 02/07/18 09:29 Dose: 1 applic Ondansetron HCl (Zofran Injection) 4 mg IVPUSH Q6H PRN PRN Reason: NAUSEA AND/OR VOMITING Oxycodone HCl (Roxicodone -) 5 mg PO Q4H PRN PRN Reason: PAIN LEVEL 1-5 Last Admin: 02/07/18 05:13 Dose: 5 mg Oxycodone HCl (Roxicodone -) 10 mg PO Q4H PRN PRN Reason: PAIN LEVEL 6-10 Vital Signs Period Temp Pulse Resp BP Sys/Desai Pulse Ox Last 24 Hr 98.1 F-98.2 F 55-78 15-28 101-136/46-83 Intake & Output 02/04/18 02/05/18 02/06/18 02/07/18 23:59 23:59 23:59 23:59 Intake Total 850 1225 200 Output Total 1180 940 625 625 Balance -330 -940 600 -425 Weight 76.657 kg 76.657 kg General: awake, aler and cooperative w/o distress HEENT: PERRL, no JVD CV: RRR pulm: Right side crackles, CT: Ant (#2) 55ml serosang drainage w/ air leak, CT lateral (#1) ~120ml no air leak Abd: SNTND Ext: WWP, trace LE edema Neuro: CN grossly intact, AOx3, ARCHER CBC, BMP 02/07/18 05:30 02/07/18 05:30 CXR: relativel unchanged. both chest tubes in good position, cont to have right side effusion/pleural changes Microbiology 02/04/18 14:18 Lung - Right Upper Lobe Gram Stain - Final 02/04/18 14:18 Lung - Right Upper Lobe Tissue Culture - Preliminary NO AEROBIC GROWTH, 24 HRS 02/04/18 14:18 Lung - Right Upper Lobe Anaerobic Culture - Final NO ANAEROBES WERE ISOLATED 02/04/18 13:48 Pleural Fluid Gram Stain - Final 02/04/18 13:48 Pleural Fluid Body Fluid Culture - Preliminary Staphylococcus Coagulase Neg 02/04/18 13:48 Pleural Fluid Anaerobic Culture - Final NO ANAEROBES WERE ISOLATED ASSESSMENT AND PLAN: Chronic Pleural Effusion s/p R VATS/pleural biopsy/pneumolysis/partial decortication CAD s/p multivessel stent LV Diastolic Dysfunction Pulmonary HTN HTN DM CKD - pain control - incentive spirometry - no ABX per ID - O2 to keep SpO2>90% (wears NOC O2 at home 1-2lpm) - monitor chest tube output, air leak noted #2 anterior tube - f/u pathology, pleural studies - continue ASA, restart plavix when ok with surgery - PO as tolerated - OOB to chair - DVT prophylaxis - can monitor on [place]
--- NOTE | 2018-02-07 12:50 | PN ---
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, Physician Chief Complaint: Events noted Remains in ICU Not in distress History of Present Illness: Patient was seen and examined. Awake and alert. Chart was reviewed Denies chest pain or palpitations Chest tube in place - Current Medication List Current Medications: Active Medications Acetaminophen (Tylenol -) 650 mg PO Q4H PRN PRN Reason: FEVER Last Admin: 02/07/18 05:14 Dose: 650 mg Acetaminophen (Tylenol -) 325 mg PO Q4H PRN PRN Reason: PAIN LEVEL 1-5 Stop: 02/07/18 15:59 Acetaminophen (Tylenol -) 650 mg PO Q4H PRN PRN Reason: PAIN LEVEL 6-10 Stop: 02/07/18 16:00 Albuterol/Ipratropium (Duoneb -) 1 amp NEB Q4H PRN PRN Reason: SHORTNESS OF BREATH Allopurinol (Zyloprim -) 100 mg PO DAILY [facility] Last Admin: 02/07/18 09:25 Dose: 100 mg Aspirin (Ecotrin -) 81 mg PO DAILY [facility] Last Admin: 02/07/18 09:25 Dose: 81 mg Atorvastatin Calcium (Lipitor -) 80 mg PO HS [facility] Last Admin: 02/06/18 21:35 Dose: 80 mg Carvedilol (Coreg -) 25 mg PO BID [facility] Last Admin: 02/07/18 09:24 Dose: 25 mg Chlorhexidine Gluconate (Hibiclens For Decolonization -) 1 applic TP HS [facility] Last Admin: 02/06/18 21:34 Dose: 1 applic Cholecalciferol (Vitamin D3 -) 1,000 unit PO DAILY [facility] Last Admin: 02/07/18 09:25 Dose: 1,000 unit Clopidogrel Bisulfate (Plavix -) 75 mg PO DAILY [facility] Last Admin: 02/07/18 09:24 Dose: 75 mg Collagenase (Santyl -) 1 applic TP DAILY [facility]; Protocol Last Admin: 02/07/18 09:30 Dose: 1 applic Docusate Sodium (Colace -) 300 mg PO DAILY [facility] Last Admin: 02/07/18 09:24 Dose: 300 mg Furosemide (Lasix -) 20 mg PO DAILY [facility] Last Admin: 02/07/18 09:29 Dose: 20 mg Gabapentin (Neurontin -) 600 mg PO BID [facility] Last Admin: 02/07/18 09:25 Dose: 600 mg Insulin Aspart (Novolog Vial Sliding Scale -) 1 vial SQ ACHS [facility]; Protocol Last Admin: 02/07/18 11:27 Dose: 6 units Isosorbide Dinitrate (Isordil -) 20 mg PO TIDISORDIL [facility] Last Admin: 02/07/18 12:31 Dose: 20 mg Mupirocin (Bactroban Ointment (For Decolonization) -) 1 applic NS BID [facility] Stop: 02/10/18 11:19 Last Admin: 02/07/18 09:29 Dose: 1 applic Ondansetron HCl (Zofran Injection) 4 mg IVPUSH Q6H PRN PRN Reason: NAUSEA AND/OR VOMITING Oxycodone HCl (Roxicodone -) 5 mg PO Q4H PRN PRN Reason: PAIN LEVEL 1-5 Last Admin: 02/07/18 05:13 Dose: 5 mg Oxycodone HCl (Roxicodone -) 10 mg PO Q4H PRN PRN Reason: PAIN LEVEL 6-10 - Objective Vital Signs: Vital Signs Temperature 98.3 F 02/07/18 12:00 Pulse Rate 53 L 02/07/18 12:00 Respiratory Rate 02/07/18 12:00 Blood Pressure 126/55 02/07/18 12:00 O2 Sat by Pulse Oximetry (%) 100 02/04/18 21:00 Neck: Yes: Supple Cardiovascular: Yes: Regular Rate and Rhythm, S1, S2 Respiratory: Yes: Diminished Gastrointestinal: Yes: Normal Bowel Sounds, Soft. No: Tenderness Edema: No Additional Findings/Remarks: ROS: HEENT: denies headache, photophobia, blurring of vision CARD: denies chest pain or palpitation RESP: denies cough, sputum, hemoptysis, as outline post chest tube and VATS GI: denies nausea, vomiting, diarrhea, abdominal pain, melena, hematemesis MUSC: denies joint pains NEURO: denies seizure, syncope Labs: CBC, BMP 02/07/18 05:30 02/07/18 05:30 Problem List - Problems (1) S/P thoracostomy tube placement Code(s): Z93.8 - OTHER ARTIFICIAL OPENING STATUS (2) Bobay-yl-pxmewja kidney injury Code(s): N17.9 - ACUTE KIDNEY FAILURE, UNSPECIFIED; N18.9 - CHRONIC KIDNEY DISEASE, UNSPECIFIED (3) Chronic left systolic heart failure Code(s): I50.22 - CHRONIC SYSTOLIC (CONGESTIVE) HEART FAILURE (4) Diabetes mellitus Code(s): E11.9 - TYPE 2 DIABETES MELLITUS WITHOUT COMPLICATIONS (5) Diastolic dysfunction without heart failure Code(s): I51.89 - OTHER ILL-DEFINED HEART DISEASES (6) Old myocardial infarction Code(s): I25.2 - OLD MYOCARDIAL INFARCTION (7) Pulmonary hypertension Code(s): I27.2 - OTHER SECONDARY PULMONARY HYPERTENSION * DO NOT USE * (8) S/P coronary artery stent placement Code(s): Z95.5 - PRESENCE OF CORONARY ANGIOPLASTY IMPLANT AND GRAFT (9) CAD (coronary artery disease) Code(s): I25.10 - ATHSCL HEART DISEASE OF [place] CORONARY ARTERY W/O ANG PCTRS Qualifiers: Coronary Disease-Associated Artery/Lesion type: [place] artery [place] vs. transplanted heart: [place] heart Associated angina: without angina Qualified Code(s): I25.10 - Atherosclerotic heart disease of [place] coronary artery without angina pectoris (10) HTN (hypertension) Code(s): I10 - ESSENTIAL (PRIMARY) HYPERTENSION Qualifiers: Hypertension type: essential hypertension Qualified Code(s): I10 - Essential (primary) hypertension (11) Hyperlipidemia Code(s): E78.5 - HYPERLIPIDEMIA, UNSPECIFIED Qualifiers: Hyperlipidemia type: pure hypercholesterolemia Qualified Code(s): E78.00 - Pure hypercholesterolemia, unspecified; E78.0 - Pure hypercholesterolemia Assessment/Plan 1. S/P right VATS pneumolysis, pleural biopsy and partial decortication to expand lung with chronic loculated non-draining right effusion 2. CAD h/o [place], s/p multivessel stent 3. Type 2 DM 4. HTN 5. Diastolic dysfunction and pulm HTN 6. CKD with h/o hyperkalemia PLAN: 1. ASA and Plavix 2. Continue Lipitor, Carvedilol, Isordil and Lasix. Currently not on ACEI/ARB due to hyperkalemia 3. Patient has plans for Lexiscan MIBI with Dr. Chacon in the office later in the year (last saw him December 01, 2017) 4. Analgesia, bronchodilator prn, FIO2 to maintain saO2>90%, monitor chest tube output, air leak, f/u pathology, OOB to chair and DVT prophylaxis Dannie Coon MD
[2018-02-07] MEDS: oxyCODONE HCL 5 MG TABLET PO PRN (15:07)
[2018-02-07] MEDS: CHLORHEXIDINE GLUCONATE 4% CLEANSER FOR DECOLONIZATION TP SCH (21:25)
[2018-02-07] MEDS: ATORVASTATIN CA 80 MG TABLET (FP) PO SCH (21:25)
[2018-02-08 06:30] LABS: BASO % 0.6 % (0-2.0); EOS % 3.1 % (0-4.5); HEMATOCRIT 22.6 % (35.4-49); HEMOGLOBIN 7.5 GM/dL (11.7-16.9); LYMPH % 13.5 % (8-40); MCH 29.8 pg (25.7-33.7); MCHC 32.9 g/dl (32.0-35.9); MEAN CELL VOLUME 90.7 fl (80-96); MEAN PLT VOLUME 7.8 fl (7.5-11.1); MONO % 6.4 % (3.8-10.2); NEUT % 76.4 % (42.8-82.8); PLATELET COUNT 225 K/MM3 (134-434); RDW 15.1 % (11.9-15.9); WHITE BLOOD COUNT 5.4 K/mm3 (4.0-10.0)
[2018-02-08 06:32] LABS: INR 1.14 (0.83-1.09); PROTHROMBIN TIME (PATIENT) 12.9 SEC (9.7-13.0)
[2018-02-08] MEDS: INSULIN SLIDING SCALE (NOVOLOG) 1 VIAL SQ SCH ×4 (06:32→23:50)
[2018-02-08 06:45] LABS: ALBUMIN 1.6 g/dl (3.4-5.0); ANION GAP 10 MMOL/L (8-16); CALCIUM 7.8 mg/dL (8.5-10.1); CHLORIDE 107 mmol/L (98-107); CO2 26 mmol/L (21-32); CREATININE 1.4 mg/dL (0.7-1.3); GLUCOSE,RANDOM 189 mg/dL (74-106); SGOT/AST 11 U/L (15-37); SGPT/ALT 22 U/L (12-78); SODIUM 143 mmol/L (136-145)
[2018-02-08 06:47] LABS: ALK PHOS 108 U/L (45-117); BILIRUBIN,TOTAL 0.5 mg/dL (0.2-1.0); BLOOD UREA NITROGEN 53 mg/dL (7-18); TOT PROT 5.5 g/dl (6.4-8.2)
--- NOTE | 2018-02-08 08:32 | PN ---
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, Physician Chief Complaint: S/p VATS and partial right lung decortication for recurrent right pleural effusion doing well day 5 # s/p procedure, the chest tube is draining hemorrhagic fluid material flow engineer in color compared to last evening although the amount of fluid collected in the canisters is increased. He is comfortable, denies left side chest pain, denies dyspnea, right side chest pain is well tolerated and present with movements.H/H dropped, but the patient has no dyspnea or right sided chest pain. He had no BM since admission. - Current Medication List Current Medications: Active Medications Acetaminophen (Tylenol -) 650 mg PO Q4H PRN PRN Reason: FEVER Last Admin: 02/07/18 05:14 Dose: 650 mg Albuterol/Ipratropium (Duoneb -) 1 amp NEB Q4H PRN PRN Reason: SHORTNESS OF BREATH Allopurinol (Zyloprim -) 100 mg PO DAILY [facility] Last Admin: 02/07/18 09:25 Dose: 100 mg Aspirin (Ecotrin -) 81 mg PO DAILY [facility] Last Admin: 02/07/18 09:25 Dose: 81 mg Atorvastatin Calcium (Lipitor -) 80 mg PO HS [facility] Last Admin: 02/07/18 21:25 Dose: 80 mg Carvedilol (Coreg -) 25 mg PO BID [facility] Last Admin: 02/07/18 21:25 Dose: 25 mg Chlorhexidine Gluconate (Hibiclens For Decolonization -) 1 applic TP [facility] Last Admin: 02/07/18 21:25 Dose: 1 applic Cholecalciferol (Vitamin D3 -) 1,000 unit PO DAILY [facility] Last Admin: 02/07/18 09:25 Dose: 1,000 unit Clopidogrel Bisulfate (Plavix -) 75 mg PO DAILY [facility] Last Admin: 02/07/18 09:24 Dose: 75 mg Collagenase (Santyl -) 1 applic TP DAILY [facility]; Protocol Last Admin: 02/07/18 09:30 Dose: 1 applic Docusate Sodium (Colace -) 300 mg PO DAILY [facility] Last Admin: 02/07/18 09:24 Dose: 300 mg Furosemide (Lasix -) 20 mg PO DAILY [facility] Last Admin: 02/07/18 09:29 Dose: 20 mg Gabapentin (Neurontin -) 600 mg PO BID [facility] Last Admin: 02/07/18 21:25 Dose: 600 mg Insulin Aspart (Novolog Vial Sliding Scale -) 1 vial SQ ACHS [facility]; Protocol Last Admin: 02/08/18 06:32 Dose: 4 units Isosorbide Dinitrate (Isordil -) 20 mg PO TIDISORDIL [facility] Last Admin: 02/07/18 17:19 Dose: 20 mg Mupirocin (Bactroban Ointment (For Decolonization) -) 1 applic NS BID [facility] Stop: 02/10/18 11:19 Last Admin: 02/07/18 21:34 Dose: 1 applic Ondansetron HCl (Zofran Injection) 4 mg IVPUSH Q6H PRN PRN Reason: NAUSEA AND/OR VOMITING Oxycodone HCl (Roxicodone -) 5 mg PO Q4H PRN PRN Reason: PAIN LEVEL 1-5 Last Admin: 02/07/18 05:13 Dose: 5 mg Oxycodone HCl (Roxicodone -) 10 mg PO Q4H PRN PRN Reason: PAIN LEVEL 6-10 Last Admin: 02/07/18 15:07 Dose: 10 mg - Objective Vital Signs: Vital Signs Temperature 98.3 F 02/08/18 06:00 Pulse Rate 71 02/08/18 08:00 Respiratory Rate 18 02/08/18 08:00 Blood Pressure 110/53 02/08/18 08:00 O2 Sat by Pulse Oximetry (%) 100 02/04/18 21:00 Constitutional: Yes: No Distress, Calm Eyes: Yes: Conjunctiva Clear, EOM Intact HENT: Yes: Atraumatic, Normocephalic Neck: Yes: Supple, Trachea Midline Cardiovascular: Yes: Regular Rate and Rhythm, S1, S2 Respiratory: Yes: Regular, CTA Bilaterally, On Nasal O2, Other (right chast tubes X2, draining material flow engineer red fluid) Gastrointestinal: Yes: Normal Bowel Sounds, Soft, Abdomen, Obese. No: Hepatomegaly, Splenomegaly Extremities: No: Calf Tenderness Edema: No Peripheral Pulses WNL: Yes Neurological: Yes: Alert, Oriented Psychiatric: Yes: Alert, Oriented Labs: CBC, BMP 02/08/18 05:30 02/08/18 05:30 INR, PTT INR 1.14 (0.83-1.09) H 02/08/18 05:30 Problem List - Problems (1) Acute blood loss anemia Assessment/Plan: transfuse 1 unit PRBC Code(s): D62 - ACUTE POSTHEMORRHAGIC ANEMIA (2) S/P thoracostomy tube placement Assessment/Plan: DAY 5 POST PROCEDURE the patient is alert and comfortable, saying that he is breathing better chest tube draining hemorrhagic fluid light in color started Plavix Code(s): Z93.8 - OTHER ARTIFICIAL OPENING STATUS (3) S/P coronary artery stent placement Assessment/Plan: confirmed with patient and procedure done in spring started Plavix continue ASA 81 mg daily drainage fluid is light in color will continue monitoring color and amount Code(s): Z95.5 - PRESENCE OF CORONARY ANGIOPLASTY IMPLANT AND GRAFT (4) Diabetes mellitus type 2 with complications Assessment/Plan: nephropathy complications continue accuchecks with JOSR Zhang for supplenemts Code(s): E11.8 - TYPE 2 DIABETES MELLITUS WITH UNSPECIFIED COMPLICATIONS (5) Pressure ulcer of sacral region, stage 2 Assessment/Plan: Santyl daily to the sacrum Code(s): L89.152 - PRESSURE ULCER OF [place] REG[place], STAGE 2 (6) CHF (congestive heart failure) Code(s): I50.9 - HEART FAILURE, UNSPECIFIED Qualifiers: Heart failure type: combined systolic and diastolic Heart failure chronicity: chronic Qualified Code(s): I50.42 - 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) heart failure (7) MRSA (methicillin resistant Staphylococcus aureus) colonization Assessment/Plan: applications of Mupirocin intra nasally Code(s): Z22.322 - CARRIER OR SUSPECTED CARRIER OF METHICILLIN RESIS STAPH (8) Chronic hyperkalemia Assessment/Plan: monitor K use kionix as needed Code(s): E87.5 - HYPERKALEMIA
--- NOTE | 2018-02-08 08:50 | PN ---
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 (short form) - Note 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: Seen and examined in the ICU Ant Chest tube cont to have air leak decreased Serosang drainage from both ~65ml down from 175ml PRBC x1 ordered this AM Active Medications Acetaminophen (Tylenol -) 650 mg PO Q4H PRN PRN Reason: FEVER Last Admin: 02/07/18 05:14 Dose: 650 mg Albuterol/Ipratropium (Duoneb -) 1 amp NEB Q4H PRN PRN Reason: SHORTNESS OF BREATH Allopurinol (Zyloprim -) 100 mg PO DAILY [facility] Last Admin: 02/07/18 09:25 Dose: 100 mg Aspirin (Ecotrin -) 81 mg PO DAILY [facility] Last Admin: 02/07/18 09:25 Dose: 81 mg Atorvastatin Calcium (Lipitor -) 80 mg PO HS [facility] Last Admin: 02/07/18 21:25 Dose: 80 mg Carvedilol (Coreg -) 25 mg PO BID [facility] Last Admin: 02/07/18 21:25 Dose: 25 mg Chlorhexidine Gluconate (Hibiclens For Decolonization -) 1 applic TP HS [facility] Last Admin: 02/07/18 21:25 Dose: 1 applic Cholecalciferol (Vitamin D3 -) 1,000 unit PO DAILY [facility] Last Admin: 02/07/18 09:25 Dose: 1,000 unit Clopidogrel Bisulfate (Plavix -) 75 mg PO DAILY [facility] Last Admin: 02/07/18 09:24 Dose: 75 mg Collagenase (Santyl -) 1 applic TP DAILY [facility]; Protocol Last Admin: 02/07/18 09:30 Dose: 1 applic Docusate Sodium (Colace -) 300 mg PO DAILY [facility] Last Admin: 02/07/18 09:24 Dose: 300 mg Furosemide (Lasix -) 20 mg PO DAILY [facility] Last Admin: 02/07/18 09:29 Dose: 20 mg Gabapentin (Neurontin -) 600 mg PO BID [facility] Last Admin: 02/07/18 21:25 Dose: 600 mg Insulin Aspart (Novolog Vial Sliding Scale -) 1 vial SQ ACHS [facility]; Protocol Last Admin: 02/08/18 06:32 Dose: 4 units Isosorbide Dinitrate (Isordil -) 20 mg PO TIDISORDIL [facility] Last Admin: 02/07/18 17:19 Dose: 20 mg Mupirocin (Bactroban Ointment (For Decolonization) -) 1 applic NS BID [facility] Stop: 02/10/18 11:19 Last Admin: 02/07/18 21:34 Dose: 1 applic Ondansetron HCl (Zofran Injection) 4 mg IVPUSH Q6H PRN PRN Reason: NAUSEA AND/OR VOMITING Oxycodone HCl (Roxicodone -) 5 mg PO Q4H PRN PRN Reason: PAIN LEVEL 1-5 Last Admin: 02/07/18 05:13 Dose: 5 mg Oxycodone HCl (Roxicodone -) 10 mg PO Q4H PRN PRN Reason: PAIN LEVEL 6-10 Last Admin: 02/07/18 15:07 Dose: 10 mg Vital Signs Period Temp Pulse Resp BP Sys/Desai Pulse Ox Last 24 Hr 97.6 F-98.3 F 52-82 13-20 99-144/48-67 Intake & Output 02/05/18 02/06/18 02/07/18 02/08/18 23:59 23:59 23:59 23:59 Intake Total 1225 500 150 Output Total 964 843 9371 515 Balance -940 600 -745 -365 Weight 76.657 kg 76.657 kg 78.131 kg General: awake, aler and cooperative w/o distress HEENT: PERRL, no JVD CV: RRR pulm: Right side crackles, CT: Ant (#2) 0 drainage w/ intermittent air leak, CT lateral (#1) ~65ml no air leak Abd: SNTND Ext: WWP, trace LE edema Neuro: CN grossly intact, AOx3, ARCHER CBC, BMP 02/08/18 05:30 02/08/18 05:30 CXR: CT in good position, no pneumo seen. cont to have unchanged right sided pleural changes Microbiology 02/04/18 14:18 Lung - Right Upper Lobe Gram Stain - Final 02/04/18 14:18 Lung - Right Upper Lobe Tissue Culture - Preliminary NO AEROBIC GROWTH, 24 HRS 02/04/18 14:18 Lung - Right Upper Lobe Anaerobic Culture - Final NO ANAEROBES WERE ISOLATED 02/04/18 13:48 Pleural Fluid Gram Stain - Final 02/04/18 13:48 Pleural Fluid Body Fluid Culture - Preliminary Staphylococcus Coagulase Neg 09/05/18 13:48 Pleural Fluid Anaerobic Culture - Final NO ANAEROBES WERE ISOLATED ASSESSMENT AND PLAN: Chronic Pleural Effusion s/p R VATS/pleural biopsy/pneumolysis/partial decortication CAD s/p multivessel stent LV Diastolic Dysfunction Pulmonary HTN HTN DM CKD - pain control - incentive spirometry - no ABX per ID - O2 to keep SpO2>90% (wears NOC O2 at home 1-2lpm) - monitor chest tube output, intermittent air leak noted #2 anterior tube - f/u pathology, pleural studies - continue ASA, restart plavix when ok with surgery - PO as tolerated - OOB to chair - DVT prophylaxis - can monitor on [facility]
[2018-02-08] MEDS: ISOSORBIDE DINITRATE 20 MG TABLET (FP) PO SCH ×3 (09:00→17:08)
[2018-02-08] MEDS: FUROSEMIDE 20 MG TABLET (FP) PO SCH (09:43)
[2018-02-08] MEDS: ALLOPURINOL 100 MG TABLET (FP) PO SCH (09:43)
[2018-02-08] MEDS: CHOLECALCIFEROL (VITAMIN D3) 1,000 UNIT TABLET (FP) PO SCH (09:43)
[2018-02-08] MEDS: DOCUSATE SODIUM 100 MG CAPSULE (FP) PO SCH (09:43)
[2018-02-08] MEDS: CLOPIDOGREL BISULFATE 75 MG TABLET (FP) PO SCH (09:43)
[2018-02-08] MEDS: CARVEDILOL 25 MG TABLET (FP) PO SCH ×2 (09:43→22:08)
[2018-02-08] MEDS: GABAPENTIN 300 MG CAPSULE (FP) PO SCH ×2 (09:44→22:08)
[2018-02-08] MEDS: ASPIRIN COATED 81 MG TABLET.EC PO SCH (09:44)
[2018-02-08] MEDS: MUPIROCIN 2% TOPICAL OINTMENT FOR DECOLONIZATION NS SCH ×2 (09:45→22:08)
--- NOTE | 2018-02-08 10:55 | PN ---
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, Physician Chief Complaint: Events noted Remains in ICU Not in distress History of Present Illness: Patient was seen and examined. Awake and alert. Chart was reviewed Denies chest pain or palpitations Chest tube in place NSVT 4 beats last night - Current Medication List Current Medications: Active Medications Acetaminophen (Tylenol -) 650 mg PO Q4H PRN PRN Reason: FEVER Last Admin: 02/07/18 05:14 Dose: 650 mg Albuterol/Ipratropium (Duoneb -) 1 amp NEB Q4H PRN PRN Reason: SHORTNESS OF BREATH Allopurinol (Zyloprim -) 100 mg PO DAILY [facility] Last Admin: 02/08/18 09:43 Dose: 100 mg Aspirin (Ecotrin -) 81 mg PO DAILY [facility] Last Admin: 02/08/18 09:44 Dose: 81 mg Atorvastatin Calcium (Lipitor -) 80 mg PO HS [facility] Last Admin: 02/07/18 21:25 Dose: 80 mg Carvedilol (Coreg -) 25 mg PO BID [facility] Last Admin: 02/08/18 09:43 Dose: 25 mg Chlorhexidine Gluconate (Hibiclens For Decolonization -) 1 applic TP HS [facility] Last Admin: 02/07/18 21:25 Dose: 1 applic Cholecalciferol (Vitamin D3 -) 1,000 unit PO DAILY [facility] Last Admin: 02/08/18 09:43 Dose: 1,000 unit Clopidogrel Bisulfate (Plavix -) 75 mg PO DAILY [facility] Last Admin: 02/08/18 09:43 Dose: 75 mg Collagenase (Santyl -) 1 applic TP DAILY [facility]; Protocol Last Admin: 02/07/18 09:30 Dose: 1 applic Docusate Sodium (Colace -) 300 mg PO DAILY [facility] Last Admin: 02/08/18 09:43 Dose: 300 mg Furosemide (Lasix -) 20 mg PO DAILY [facility] Last Admin: 02/08/18 09:43 Dose: 20 mg Gabapentin (Neurontin -) 600 mg PO BID [facility] Last Admin: 02/08/18 09:44 Dose: 600 mg Insulin Aspart (Novolog Vial Sliding Scale -) 1 vial SQ ACHS [facility]; Protocol Last Admin: 02/08/18 06:32 Dose: 4 units Isosorbide Dinitrate (Isordil -) 20 mg PO TIDISORDIL [facility] Last Admin: 02/08/18 09:00 Dose: 20 mg Mupirocin (Bactroban Ointment (For Decolonization) -) 1 applic NS BID [facility] Stop: 02/10/18 11:19 Last Admin: 02/08/18 09:45 Dose: 1 applic Ondansetron HCl (Zofran Injection) 4 mg IVPUSH Q6H PRN PRN Reason: NAUSEA AND/OR VOMITING Oxycodone HCl (Roxicodone -) 5 mg PO Q4H PRN PRN Reason: PAIN LEVEL 1-5 Last Admin: 02/07/18 05:13 Dose: 5 mg Oxycodone HCl (Roxicodone -) 10 mg PO Q4H PRN PRN Reason: PAIN LEVEL 6-10 Last Admin: 02/07/18 15:07 Dose: 10 mg - Objective Vital Signs: Vital Signs Temperature 98.3 F 02/08/18 06:00 Pulse Rate 68 02/08/18 10:00 Respiratory Rate 22 02/08/18 10:00 Blood Pressure 140/55 02/08/18 10:00 O2 Sat by Pulse Oximetry (%) 100 02/04/18 21:00 Neck: Yes: Supple Cardiovascular: Yes: Regular Rate and Rhythm, S1, S2 Respiratory: Yes: Diminished, Other (Chest tube drain) Gastrointestinal: Yes: Normal Bowel Sounds, Soft. No: Tenderness Edema: No Additional Findings/Remarks: ROS: HEENT: denies headache, photophobia, blurring of vision CARD: denies chest pain or palpitation RESP: denies cough, sputum, hemoptysis, as outline post chest tube and VATS GI: denies nausea, vomiting, diarrhea, abdominal pain, melena, hematemesis MUSC: denies joint pains NEURO: denies seizure, syncope Labs: CBC, BMP 02/08/18 05:30 02/08/18 05:30 INR, PTT INR 1.14 (0.83-1.09) H 02/08/18 05:30 Problem List - Problems (1) S/P thoracostomy tube placement Code(s): Z93.8 - OTHER ARTIFICIAL OPENING STATUS (2) Vcoix-ju-dcksbbb kidney injury Code(s): N17.9 - ACUTE KIDNEY FAILURE, UNSPECIFIED; N18.9 - CHRONIC KIDNEY DISEASE, UNSPECIFIED (3) Chronic left systolic heart failure Code(s): I50.22 - CHRONIC SYSTOLIC (CONGESTIVE) HEART FAILURE (4) Diabetes mellitus Code(s): E11.9 - TYPE 2 DIABETES MELLITUS WITHOUT COMPLICATIONS (5) Diastolic dysfunction without heart failure Code(s): I51.89 - OTHER ILL-DEFINED HEART DISEASES (6) Old myocardial infarction Code(s): I25.2 - OLD MYOCARDIAL INFARCTION (7) Pulmonary hypertension Code(s): I27.2 - OTHER SECONDARY PULMONARY HYPERTENSION * DO NOT USE * (8) S/P coronary artery stent placement Code(s): Z95.5 - PRESENCE OF CORONARY ANGIOPLASTY IMPLANT AND GRAFT (9) CAD (coronary artery disease) Code(s): I25.10 - ATHSCL HEART DISEASE OF [place] CORONARY ARTERY W/O ANG PCTRS Qualifiers: Coronary Disease-Associated Artery/Lesion type: [place] artery [place] vs. transplanted heart: [place] heart Associated angina: without angina Qualified Code(s): I25.10 - Atherosclerotic heart disease of [place] coronary artery without angina pectoris (10) HTN (hypertension) Code(s): I10 - ESSENTIAL (PRIMARY) HYPERTENSION Qualifiers: Hypertension type: essential hypertension Qualified Code(s): I10 - Essential (primary) hypertension (11) Hyperlipidemia Code(s): E78.5 - HYPERLIPIDEMIA, UNSPECIFIED Qualifiers: Hyperlipidemia type: pure hypercholesterolemia Qualified Code(s): E78.00 - Pure hypercholesterolemia, unspecified; E78.0 - Pure hypercholesterolemia Assessment/Plan 1. S/P right VATS pneumolysis, pleural biopsy and partial decortication to expand lung with chronic loculated non-draining right effusion 2. CAD h/o [place], s/p multivessel stent 3. Type 2 DM 4. HTN 5. Diastolic dysfunction and pulm HTN 6. CKD with h/o hyperkalemia PLAN: 1. ASA and Plavix 2. Continue Lipitor, Carvedilol, Isordil and Lasix. Currently not on ACEI/ARB due to hyperkalemia 3. Patient has plans for Lexiscan MIBI with Dr. Chacon in the office later in the year (last saw him December 01, 2017) 4. Analgesia, bronchodilator prn, FIO2 to maintain saO2>90%, monitor chest tube output, air leak, f/u pathology, OOB to chair and DVT prophylaxis 5. Monitor H/H and transfuse PRBC if indicated (to be transfused this morning) Dannie Coon MD
[2018-02-08] MEDS: COLLAGENASE CLOSTRIDIUM HIST. 30 GRAMS TUBE TP SCH (12:50)
[2018-02-08 17:49] LABS: BASO % 0.7 % (0-2.0); EOS % 2.9 % (0-4.5); HEMOGLOBIN 9.5 GM/dL (11.7-16.9); LYMPH % 17.7 % (8-40); MCH 30.6 pg (25.7-33.7); MEAN CELL VOLUME 90.1 fl (80-96); MEAN PLT VOLUME 7.7 fl (7.5-11.1); NEUT % 70.7 % (42.8-82.8); PLATELET COUNT 235 K/MM3 (134-434); RDW 14.9 % (11.9-15.9); WHITE BLOOD COUNT 5.2 K/mm3 (4.0-10.0)
[2018-02-08] MEDS: oxyCODONE HCL 5 MG TABLET PO PRN (18:05)
[2018-02-08] MEDS: ACETAMINOPHEN 325 MG TABLET (FP) PO PRN (18:21)
[2018-02-08] MEDS: CHLORHEXIDINE GLUCONATE 4% CLEANSER FOR DECOLONIZATION TP SCH (22:08)
[2018-02-08] MEDS: ATORVASTATIN CA 80 MG TABLET (FP) PO SCH (22:08)
[2018-02-09] MEDS: ACETAMINOPHEN 325 MG TABLET (FP) PO PRN ×3 (05:36→22:24)
[2018-02-09] MEDS: oxyCODONE HCL 5 MG TABLET PO PRN (05:38)
[2018-02-09] MEDS: INSULIN SLIDING SCALE (NOVOLOG) 1 VIAL SQ SCH ×4 (06:04→21:18)
[2018-02-09 06:55] LABS: HEMATOCRIT 29.4 % (35.4-49); HEMOGLOBIN 9.7 GM/dL (11.7-16.9); MCH 29.7 pg (25.7-33.7); MCHC 32.9 g/dl (32.0-35.9); MEAN CELL VOLUME 90.5 fl (80-96); MEAN PLT VOLUME 8.2 fl (7.5-11.1); PLATELET COUNT 237 K/MM3 (134-434); RBC 3.25 M/mm3 (4.00-5.60); WHITE BLOOD COUNT 4.8 K/mm3 (4.0-10.0)
[2018-02-09 07:06] LABS: INR 1.2 (0.83-1.09); PROTHROMBIN TIME (PATIENT) 13.6 SEC (9.7-13.0)
[2018-02-09 07:09] LABS: ACTIVATED PTT 32.2 SECONDS (25.2-36.5)
[2018-02-09 07:15] LABS: ANION GAP 5 MMOL/L (8-16); BLOOD UREA NITROGEN 47 mg/dL (7-18); CHLORIDE 105 mmol/L (98-107); CO2 31 mmol/L (21-32); GLUCOSE,RANDOM 129 mg/dL (74-106); MAGNESIUM 2.3 mg/dL (1.8-2.4); POTASSIUM 5.1 mmol/L (3.5-5.1); SODIUM 141 mmol/L (136-145)
[2018-02-09 07:18] LABS: CREATININE 1.2 mg/dL (0.7-1.3); PHOSPHOROUS 3.7 mg/dL (2.5-4.9)
[2018-02-09] MEDS ORDERED: PT OWN MED DRAWER 7, Y5N ONE (09:24)
--- NOTE | 2018-02-09 09:27 | PN ---
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 (short form) - Note 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: 72yo M s/p Right VATS and decort and Rt chest tube placement x 2. Pt seen at bedside, with no complaints. Pt states that he is breathing well, no requiring O2. Denies fever, chills, n/v. Pt ambulating. Last Vital Signs Temp Pulse Resp BP Pulse Ox 97.7 F 58 L 11 L 122/52 100 02/09/18 06:00 02/09/18 08:00 02/09/18 08:00 02/09/18 08:00 02/04/18 21:00 CBC, BMP 02/09/18 05:30 02/09/18 05:30 PE: Gen: A&O X3 Resp: breathing comfortably ABd: soft, nondistended Chest: Chest tubes in place with serosanguinous drainage, no erythema Output ant: 0ml Output Lat: 135ml Problem List - Problems (1) S/P thoracostomy tube placement Assessment/Plan: Plan -Anterior chest tube was removed at the bedside without incident and vasoline gauze dressing was placed. -Portable chest x-ray ordered -If pt continues to do well will consider removing other chest tube tomorrow 02/10 -incentive spirometry -dvt ppx -OOB/ ambulate Patient discussed with Dr. Vale who agrees with plan Code(s): Z93.8 - OTHER ARTIFICIAL OPENING STATUS
[2018-02-09] MEDS: FUROSEMIDE 20 MG TABLET (FP) PO SCH (09:43)
[2018-02-09] MEDS: DOCUSATE SODIUM 100 MG CAPSULE (FP) PO SCH (09:44)
[2018-02-09] MEDS: CLOPIDOGREL BISULFATE 75 MG TABLET (FP) PO SCH (09:45)
[2018-02-09] MEDS: CARVEDILOL 25 MG TABLET (FP) PO SCH ×2 (09:45→21:17)
[2018-02-09] MEDS: ASPIRIN COATED 81 MG TABLET.EC PO SCH (09:45)
[2018-02-09] MEDS: ALLOPURINOL 100 MG TABLET (FP) PO SCH (09:45)
[2018-02-09] MEDS: GABAPENTIN 300 MG CAPSULE (FP) PO SCH ×2 (09:45→21:17)
[2018-02-09] MEDS: ISOSORBIDE DINITRATE 20 MG TABLET (FP) PO SCH ×3 (09:45→18:14)
[2018-02-09] MEDS: CHOLECALCIFEROL (VITAMIN D3) 1,000 UNIT TABLET (FP) PO SCH (09:45)
[2018-02-09] MEDS: MUPIROCIN 2% TOPICAL OINTMENT FOR DECOLONIZATION NS SCH ×2 (09:47→21:16)
[2018-02-09] MEDS: COLLAGENASE CLOSTRIDIUM HIST. 30 GRAMS TUBE TP SCH (09:47)
--- NOTE | 2018-02-09 10:34 | EKG ---
Test Reason : Blood Pressure : / mmHG Vent. Rate : 078 BPM Atrial Rate : 078 BPM P-R Int : 176 ms QRS Dur : 122 ms QT Int : 408 ms P-R-T Axes : 044 -47 107 degrees QTc Int : 465 ms NORMAL SINUS RHYTHM WITH SINUS ARRHYTHMIA LEFT AXIS DEVIATION POSSIBLE ANTERIOR INFARCT (CITED ON OR BEFORE 06-AUG-2017) ABNORMAL ECG WHEN COMPARED WITH ECG OF 07-FEB-2018 14:23, NO SIGNIFICANT CHANGE WAS FOUND Confirmed by CITLALI ANDERSON, MISAEL ([id number]) on 02/09/2018 10:33:40 AM Referred By: Aman Vale Confirmed By:MISAEL GODWIN MD
--- NOTE | 2018-02-09 10:42 | EKG ---
Test Reason : Blood Pressure : / mmHG Vent. Rate : 056 BPM Atrial Rate : 056 BPM P-R Int : 180 ms QRS Dur : 114 ms QT Int : 472 ms P-R-T Axes : 035 -43 097 degrees QTc Int : 455 ms SINUS BRADYCARDIA LEFT AXIS DEVIATION ANTERIOR INFARCT (CITED ON OR BEFORE 06-AUG-2017) ABNORMAL ECG WHEN COMPARED WITH ECG OF 07-FEB-2018 08:54, NO SIGNIFICANT CHANGE WAS FOUND Confirmed by CITLALI ANDERSON, MISAEL ([id number]) on 02/09/2018 10:42:18 AM Referred By: Aman Vale Confirmed By:MISAEL GODWIN MD
--- NOTE | 2018-02-09 11:07 | PN ---
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, Physician History of Present Illness: He denies chest pain, dyspnea , palpitations, near or true syncope, orthopnea, PND or worsening LE edema, dry weight 170 lbs, anterior chest tube removed. Associate Accountant: Dr. Beau Chacon [facility] - Current Medication List Current Medications: Active Medications Acetaminophen (Tylenol -) 650 mg PO Q4H PRN PRN Reason: FEVER Last Admin: 02/09/18 05:36 Dose: 650 mg Albuterol/Ipratropium (Duoneb -) 1 amp NEB Q4H PRN PRN Reason: SHORTNESS OF BREATH Allopurinol (Zyloprim -) 100 mg PO DAILY [facility] Last Admin: 02/09/18 09:45 Dose: 100 mg Aspirin (Ecotrin -) 81 mg PO DAILY [facility] Last Admin: 02/09/18 09:45 Dose: 81 mg Atorvastatin Calcium (Lipitor -) 80 mg PO HS [facility] Last Admin: 02/08/18 22:08 Dose: 80 mg Carvedilol (Coreg -) 25 mg PO BID [facility] Last Admin: 02/09/18 09:45 Dose: 25 mg Chlorhexidine Gluconate (Hibiclens For Decolonization -) 1 applic TP HS [facility] Last Admin: 02/08/18 22:08 Dose: 1 applic Cholecalciferol (Vitamin D3 -) 1,000 unit PO DAILY [facility] Last Admin: 02/09/18 09:45 Dose: 1,000 unit Clopidogrel Bisulfate (Plavix -) 75 mg PO DAILY [facility] Last Admin: 02/09/18 09:45 Dose: 75 mg Collagenase (Santyl -) 1 applic TP DAILY [facility]; Protocol Last Admin: 02/09/18 09:47 Dose: 1 applic Docusate Sodium (Colace -) 300 mg PO DAILY [facility] Last Admin: 02/09/18 09:44 Dose: 300 mg Furosemide (Lasix -) 20 mg PO DAILY [facility] Last Admin: 02/09/18 09:43 Dose: 20 mg Gabapentin (Neurontin -) 600 mg PO BID [facility] Last Admin: 02/09/18 09:45 Dose: 600 mg Insulin Aspart (Novolog Vial Sliding Scale -) 1 vial SQ ACHS [facility]; Protocol Last Admin: 02/09/18 06:04 Dose: 2 units Isosorbide Dinitrate (Isordil -) 20 mg PO TIDISORDIL [facility] Last Admin: 02/09/18 09:45 Dose: 20 mg Mupirocin (Bactroban Ointment (For Decolonization) -) 1 applic NS BID [facility] Stop: 02/10/18 11:19 Last Admin: 02/09/18 09:47 Dose: 1 applic Ondansetron HCl (Zofran Injection) 4 mg IVPUSH Q6H PRN PRN Reason: NAUSEA AND/OR VOMITING Oxycodone HCl (Roxicodone -) 5 mg PO Q4H PRN PRN Reason: PAIN LEVEL 1-5 Last Admin: 02/07/18 05:13 Dose: 5 mg Oxycodone HCl (Roxicodone -) 10 mg PO Q4H PRN PRN Reason: PAIN LEVEL 6-10 Last Admin: 02/09/18 05:38 Dose: 10 mg - Objective Vital Signs: Vital Signs Temperature 97.6 F 02/09/18 10:00 Pulse Rate 56 L 02/09/18 10:00 Respiratory Rate 12 02/09/18 10:00 Blood Pressure 123/50 02/09/18 10:00 O2 Sat by Pulse Oximetry (%) 100 02/04/18 21:00 Constitutional: Yes: No Distress, Calm, Thin Neck: Yes: Supple Cardiovascular: Yes: Regular Rate and Rhythm Respiratory: Yes: Regular, Diminished, On Nasal O2, Other (Right chest tube in) Gastrointestinal: Yes: Normal Bowel Sounds, Soft Edema: No Labs: CBC, BMP 02/09/18 05:30 02/09/18 05:30 INR, PTT INR 1.20 (0.83-1.09) H 02/09/18 05:30 - ....Imaging EKG: Report Reviewed (Tele: NSR) Problem List - Problems (1) S/P thoracostomy tube placement Code(s): Z93.8 - OTHER ARTIFICIAL OPENING STATUS (2) CKD (chronic kidney disease) Code(s): N18.9 - CHRONIC KIDNEY DISEASE, UNSPECIFIED Qualifiers: Chronic kidney disease stage: stage 5, not on chronic dialysis Qualified Code(s): N18.5 - Chronic kidney disease, stage 5 (3) Chronic left systolic heart failure Code(s): I50.22 - CHRONIC SYSTOLIC (CONGESTIVE) HEART FAILURE (4) Diastolic dysfunction without heart failure Code(s): I51.89 - OTHER ILL-DEFINED HEART DISEASES (5) Hyperkalemia Code(s): E87.5 - HYPERKALEMIA (6) Pleural effusion Code(s): J90 - PLEURAL EFFUSION, NOT ELSEWHERE CLASSIFIED (7) Pulmonary hypertension Code(s): I27.2 - OTHER SECONDARY PULMONARY HYPERTENSION * DO NOT USE * (8) S/P coronary artery stent placement Code(s): Z95.5 - PRESENCE OF CORONARY ANGIOPLASTY IMPLANT AND GRAFT (9) CAD (coronary artery disease) Code(s): I25.10 - ATHSCL HEART DISEASE OF [place] CORONARY ARTERY W/O ANG PCTRS Qualifiers: Coronary Disease-Associated Artery/Lesion type: [place] artery [place] vs. transplanted heart: [place] heart Associated angina: without angina Qualified Code(s): I25.10 - Atherosclerotic heart disease of [place] coronary artery without angina pectoris (10) HTN (hypertension) Code(s): I10 - ESSENTIAL (PRIMARY) HYPERTENSION Qualifiers: Hypertension type: essential hypertension Qualified Code(s): I10 - Essential (primary) hypertension (11) Hyperlipidemia Code(s): E78.5 - HYPERLIPIDEMIA, UNSPECIFIED Qualifiers: Hyperlipidemia type: pure hypercholesterolemia Qualified Code(s): E78.00 - Pure hypercholesterolemia, unspecified; E78.0 - Pure hypercholesterolemia (12) Insulin dependent diabetes mellitus Code(s): E11.9 - TYPE 2 DIABETES MELLITUS WITHOUT COMPLICATIONS; Z79.4 - 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 POD#5 R VATS pneumolysis, pleural biopsy and partial decortication to expand lung with chronic loculated non-draining right effusion despite TPA. He is stable cardiovascular-phan. 2. CAD h/o AK, s/p multivessel stent 3. Type 2 DM 4. HTN 5. Diastolic dysfunction, pulm HTN 6. CKD with h/o hyperkalemia on entresto since d/simon 7. Anemia post transfusion P:1. Continue ASA 81 qd, Plavix 75 qd, Lipitor 80 qd, carvedilol 25 bid, isordil 20 tid, Lasix 20 qd, not on YUKI-I/ARB due to hyperkalemia 2. Patient has plans for Lexiscan MIBI at Dr. Chacon's office later in year, he saw him last December 01, 2017 3. Analgesia, BD prn, IS, FIO2 to maintain saO2>90%, monitor chest tube output, air leak, f/u pathology, pleural studies, OOB to chair, DVT prophylaxis 4. Monitor H/H and transfuse PRBC if indicated
--- NOTE | 2018-02-09 11:08 | EKG ---
Test Reason : Blood Pressure : / mmHG Vent. Rate : 064 BPM Atrial Rate : 064 BPM P-R Int : 178 ms QRS Dur : 114 ms QT Int : 460 ms P-R-T Axes : 043 -46 091 degrees QTc Int : 474 ms NORMAL SINUS RHYTHM LEFT AXIS DEVIATION INCOMPLETE RIGHT BUNDLE BRANCH BLOCK ANTERIOR INFARCT (CITED ON OR BEFORE 06-AUG-2017) ABNORMAL ECG WHEN COMPARED WITH ECG OF 05-FEB-2018 12:51, NO SIGNIFICANT CHANGE WAS FOUND Confirmed by MISAEL GODWIN MD ([id number]) on 02/09/2018 11:08:17 AM Referred By: Aman Vale Confirmed By:MISAEL GODWIN MD
--- NOTE | 2018-02-09 12:43 | PN ---
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 (short form) - Note 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: Patient seen and examined in the [facility]-ICU. Noted anterior CT removed-> CXR: No PTX Intake & Output 02/06/18 02/07/18 02/08/18 02/09/18 23:59 23:59 23:59 23:59 Intake Total 1559 680 1121 150 Output Total 625 1245 885 360 Balance 600 -745 190 -210 Weight 169 lb 172 lb 4 oz 166 lb 2 oz Last Vital Signs Temp Pulse Resp BP Pulse Ox 97.6 F 56 L 12 123/50 100 02/09/18 10:00 02/09/18 10:00 02/09/18 10:00 02/09/18 10:00 02/04/18 21:00 Active Medications Acetaminophen (Tylenol -) 650 mg PO Q4H PRN PRN Reason: FEVER Last Admin: 02/09/18 05:36 Dose: 650 mg Albuterol/Ipratropium (Duoneb -) 1 amp NEB Q4H PRN PRN Reason: SHORTNESS OF BREATH Allopurinol (Zyloprim -) 100 mg PO DAILY [facility] Last Admin: 02/09/18 09:45 Dose: 100 mg Aspirin (Ecotrin -) 81 mg PO DAILY [facility] Last Admin: 02/09/18 09:45 Dose: 81 mg Atorvastatin Calcium (Lipitor -) 80 mg PO HS [facility] Last Admin: 02/08/18 22:08 Dose: 80 mg Carvedilol (Coreg -) 25 mg PO BID [facility] Last Admin: 02/09/18 09:45 Dose: 25 mg Chlorhexidine Gluconate (Hibiclens For Decolonization -) 1 applic TP HS [facility] Last Admin: 02/08/18 22:08 Dose: 1 applic Cholecalciferol (Vitamin D3 -) 1,000 unit PO DAILY [facility] Last Admin: 02/09/18 09:45 Dose: 1,000 unit Clopidogrel Bisulfate (Plavix -) 75 mg PO DAILY [facility] Last Admin: 02/09/18 09:45 Dose: 75 mg Collagenase (Santyl -) 1 applic TP DAILY [facility]; Protocol Last Admin: 02/09/18 09:47 Dose: 1 applic Docusate Sodium (Colace -) 300 mg PO DAILY [facility] Last Admin: 02/09/18 09:44 Dose: 300 mg Furosemide (Lasix -) 20 mg PO DAILY [facility] Last Admin: 02/09/18 09:43 Dose: 20 mg Gabapentin (Neurontin -) 600 mg PO BID [facility] Last Admin: 02/09/18 09:45 Dose: 600 mg Insulin Aspart (Novolog Vial Sliding Scale -) 1 vial SQ ACHS [facility]; Protocol Last Admin: 02/09/18 06:04 Dose: 2 units Isosorbide Dinitrate (Isordil -) 20 mg PO TIDISORDIL [facility] Last Admin: 02/09/18 09:45 Dose: 20 mg Mupirocin (Bactroban Ointment (For Decolonization) -) 1 applic NS BID [facility] Stop: 02/10/18 11:19 Last Admin: 02/09/18 09:47 Dose: 1 applic Ondansetron HCl (Zofran Injection) 4 mg IVPUSH Q6H PRN PRN Reason: NAUSEA AND/OR VOMITING Oxycodone HCl (Roxicodone -) 5 mg PO Q4H PRN PRN Reason: PAIN LEVEL 1-5 Last Admin: 02/07/18 05:13 Dose: 5 mg Oxycodone HCl (Roxicodone -) 10 mg PO Q4H PRN PRN Reason: PAIN LEVEL 6-10 Last Admin: 02/09/18 05:38 Dose: 10 mg General: awake, alert, NAD HEENT: PERRL, no JVD CV: RRR PULM: scattered rhonchi Right > Left; CT Intact without an air leak Abd: SNTND Ext: WWP, trace LE edema Neuro: CN grossly intact, AOx3 Laboratory Results - last 24 hr 02/08/18 02/08/18 02/08/18 06:13 09:45 12:32 WBC RBC Hgb Hct MCV MCH MCHC RDW Plt Count MPV Absolute Neuts (auto) Neutrophils % Lymphocytes % Monocytes % Eosinophils % Basophils % Nucleated RBC % PT with INR INR PTT (Actin FS) Sodium Potassium Chloride Carbon Dioxide Anion Gap BUN Creatinine Creat Clearance w eGFR POC Glucometer 212.02346 330.47291 Random Glucose Calcium Phosphorus Magnesium Blood Type O NEGATIVE Antibody Screen Negative Crossmatch See Detail 02/08/18 02/08/18 02/08/18 17:06 17:30 22:24 WBC 5.2 RBC 3.10 L Hgb 9.5 L Hct 28.0 L D MCV 90.1 MCH 30.6 MCHC 34.0 RDW 14.9 Plt Count 235 MPV 7.7 Absolute Neuts (auto) 3.7 Neutrophils % 70.7 Lymphocytes % 17.7 D Monocytes % 8.0 Eosinophils % 2.9 Basophils % 0.7 Nucleated RBC % 0 PT with INR INR PTT (Actin FS) Sodium Potassium Chloride Carbon Dioxide Anion Gap BUN Creatinine Creat Clearance w eGFR POC Glucometer 168.25643 169.38436 Random Glucose Calcium Phosphorus Magnesium Blood Type Antibody Screen Crossmatch 02/09/18 02/09/18 02/09/18 05:30 05:30 05:30 WBC 4.8 RBC 3.25 L Hgb 9.7 L Hct 29.4 L MCV 90.5 MCH 29.7 MCHC 32.9 RDW 15.0 Plt Count 237 MPV 8.2 Absolute Neuts (auto) Neutrophils % Lymphocytes % Monocytes % Eosinophils % Basophils % Nucleated RBC % PT with INR 13.60 H INR 1.20 H PTT (Actin FS) 32.2 Sodium 141 Potassium 5.1 Chloride 105 Carbon Dioxide 31 Anion Gap 5 L BUN 47 H Creatinine 1.2 Creat Clearance w eGFR 59.18 POC Glucometer Random Glucose 129 H D Calcium 8.0 L Phosphorus 3.7 Magnesium 2.3 Blood Type Antibody Screen Crossmatch 02/09/18 02/09/18 06:02 11:11 WBC RBC Hgb Hct MCV MCH MCHC RDW Plt Count MPV Absolute Neuts (auto) Neutrophils % Lymphocytes % Monocytes % Eosinophils % Basophils % Nucleated RBC % PT with INR INR PTT (Actin FS) Sodium Potassium Chloride Carbon Dioxide Anion Gap BUN Creatinine Creat Clearance w eGFR POC Glucometer 153.46020 [phone] Random Glucose Calcium Phosphorus Magnesium Blood Type Antibody Screen Crossmatch ASSESSMENT AND PLAN: Chronic Pleural Effusion s/p R VATS/pleural biopsy/pneumolysis/partial decortication CAD s/p multivessel stent LV Diastolic Dysfunction Pulmonary HTN HTN DM CKD - pain control - incentive spirometry - no ABX per ID - O2 to keep SpO2>90% - monitor chest tube output - f/u pathology, pleural studies - continue ASA, restart plavix when ok with surgery - PO as tolerated - OOB to chair - DVT prophylaxis - Floor Dr Bella
[2018-02-09 13:41] VITALS: BMI 26.8
--- NOTE | 2018-02-09 13:47 | PN ---
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 (short form) - Note 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: POD#5 s/p right VATS Breathing well off oxygen. CT removed x 1. No air-leak. Other CT to water seal now. Follow drainage. Plavix restarted since Tuesday 02/06. Possible dc of remaining chest tube tomorrow.
--- NOTE | 2018-02-09 19:03 | PN ---
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, Physician Chief Complaint: S/p VATS and partial right lung decortication for recurrent right pleural effusion doing well day 6 # s/p procedure. One of the patient's chest tubes was removed. The patient tolerated well the procedure. There is minimal sero- hemorrhagic fluid discharge from the site. The patient is comfortable, denies left side chest pain, denies dyspnea, right side chest pain is well tolerated and manifests with movements. H/H dropped yesterday and it was corrected with one unit of PRBC. The corrected H/h was appropriate to the expected values. He had no BM since admission and there is no abdominal pain.. History of Present Illness: 72 yo male admitted with dyspnea and nondraining right pleurx catheter. He underwent VATS & decortication procedure for the right lung. HE is currently day 6 post procedure. - Current Medication List Current Medications: Active Medications Acetaminophen (Tylenol -) 650 mg PO Q4H PRN PRN Reason: FEVER Last Admin: 02/09/18 15:15 Dose: 650 mg Albuterol/Ipratropium (Duoneb -) 1 amp NEB Q4H PRN PRN Reason: SHORTNESS OF BREATH Allopurinol (Zyloprim -) 100 mg PO DAILY [facility] Last Admin: 02/09/18 09:45 Dose: 100 mg Aspirin (Ecotrin -) 81 mg PO DAILY [facility] Last Admin: 02/09/18 09:45 Dose: 81 mg Atorvastatin Calcium (Lipitor -) 80 mg PO HS [facility] Last Admin: 02/08/18 22:08 Dose: 80 mg Carvedilol (Coreg -) 25 mg PO BID [facility] Last Admin: 02/09/18 09:45 Dose: 25 mg Chlorhexidine Gluconate (Hibiclens For Decolonization -) 1 applic TP HS [facility] Last Admin: 02/08/18 22:08 Dose: 1 applic Cholecalciferol (Vitamin D3 -) 1,000 unit PO DAILY [facility] Last Admin: 02/09/18 09:45 Dose: 1,000 unit Clopidogrel Bisulfate (Plavix -) 75 mg PO DAILY [facility] Last Admin: 02/09/18 09:45 Dose: 75 mg Collagenase (Santyl -) 1 applic TP DAILY [facility]; Protocol Last Admin: 02/09/18 09:47 Dose: 1 applic Docusate Sodium (Colace -) 300 mg PO DAILY [facility] Last Admin: 02/09/18 09:44 Dose: 300 mg Furosemide (Lasix -) 20 mg PO DAILY [facility] Last Admin: 02/09/18 09:43 Dose: 20 mg Gabapentin (Neurontin -) 600 mg PO BID [facility] Last Admin: 02/09/18 09:45 Dose: 600 mg Insulin Aspart (Novolog Vial Sliding Scale -) 1 vial SQ ACHS [facility]; Protocol Last Admin: 02/09/18 16:50 Dose: 4 units Isosorbide Dinitrate (Isordil -) 20 mg PO TIDISORDIL [facility] Last Admin: 02/09/18 18:14 Dose: 20 mg Mupirocin (Bactroban Ointment (For Decolonization) -) 1 applic NS BID [facility] Stop: 02/10/18 11:19 Last Admin: 02/09/18 09:47 Dose: 1 applic Ondansetron HCl (Zofran Injection) 4 mg IVPUSH Q6H PRN PRN Reason: NAUSEA AND/OR VOMITING - Objective Vital Signs: Vital Signs Temperature 97.8 F 02/09/18 14:00 Pulse Rate 62 02/09/18 18:00 Respiratory Rate 14 02/09/18 18:00 Blood Pressure 117/58 02/09/18 18:00 O2 Sat by Pulse Oximetry (%) 100 02/04/18 21:00 Constitutional: Yes: No Distress, Calm Eyes: Yes: Conjunctiva Clear, EOM Intact HENT: Yes: Normocephalic Neck: Yes: Supple, Trachea Midline Cardiovascular: Yes: Regular Rate and Rhythm, S1, S2 Respiratory: Yes: Regular, CTA Bilaterally, Other (right hemithorax chest tube present, sero sangvinolent discharge from the site of the removed catheter) Gastrointestinal: Yes: Normal Bowel Sounds, Soft, Abdomen, Obese, Hepatomegaly, Splenomegaly Breast(s): Yes: WNL Musculoskeletal: Yes: Muscle Weakness (in th elower etxremities). No: Joint Stiffness Extremities: No: Calf Tenderness Edema: No Peripheral Pulses WNL: Yes Neurological: Yes: Alert, Oriented Psychiatric: Yes: Alert, Oriented Labs: CBC, BMP 02/09/18 05:30 02/09/18 05:30 INR, PTT INR 1.20 (0.83-1.09) H 02/09/18 05:30 - ....Imaging Chest X-ray: Other (congestive changes bilaterally, right lung with no pneumothorax, no cahnges compared to previous CXR) Problem List - Problems (1) Acute blood loss anemia Assessment/Plan: received 1 unit PRBC he corrected H/h was appropriate to the expected values Code(s): D62 - ACUTE POSTHEMORRHAGIC ANEMIA (2) S/P thoracostomy tube placement Assessment/Plan: DAY 6 POST PROCEDURE, started Plavix the patient is alert and comfortable, saying that he is breathing better one chest was tube removed, without pneumothorax, and one chest tube is remaining and draining sero hemorrhagic fluid Code(s): Z93.8 - OTHER ARTIFICIAL OPENING STATUS (3) S/P coronary artery stent placement Assessment/Plan: confirmed with patient and procedure done in spring started Plavix continue ASA 81 mg daily the patient had sporadic PVC's, Code(s): Z95.5 - PRESENCE OF CORONARY ANGIOPLASTY IMPLANT AND GRAFT (4) Diabetes mellitus type 2 with complications Assessment/Plan: nephropathy complications continue accuchecks with OJSR Zhang for supplenemts Code(s): E11.8 - TYPE 2 DIABETES MELLITUS WITH UNSPECIFIED COMPLICATIONS (5) Pressure ulcer of sacral region, stage 2 Assessment/Plan: Santyl daily to the sacrum Code(s): L89.152 - PRESSURE ULCER OF SACRAL REGION, STAGE 2 (6) CHF (congestive heart failure) Assessment/Plan: LAsix 20 mg daily was restarted, the patient is not clinically fluid overloaded during my examination Isordil 20 mg po tid monitor hydration status Code(s): I50.9 - HEART FAILURE, UNSPECIFIED Qualifiers: Heart failure type: combined systolic and diastolic Heart failure chronicity: chronic Qualified Code(s): I50.42 - 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) heart failure (7) MRSA (methicillin resistant Staphylococcus aureus) colonization Assessment/Plan: applications of Mupirocin intra nasally Code(s): Z22.322 - CARRIER OR SUSPECTED CARRIER OF METHICILLIN RESIS STAPH (8) Chronic hyperkalemia Assessment/Plan: monitor K use kionix as needed Code(s): E87.5 - HYPERKALEMIA (9) Constipation Assessment/Plan: Milk of magnesia 30 c po once in am Code(s): K59.00 - CONSTIPATION, UNSPECIFIED
[2018-02-09] MEDS: ATORVASTATIN CA 80 MG TABLET (FP) PO SCH (21:17)
[2018-02-09] MEDS: CHLORHEXIDINE GLUCONATE 4% CLEANSER FOR DECOLONIZATION TP SCH (21:17)
[2018-02-10] MEDS: ACETAMINOPHEN 325 MG TABLET (FP) PO PRN ×2 (05:48→15:55)
[2018-02-10] MEDS: INSULIN SLIDING SCALE (NOVOLOG) 1 VIAL SQ SCH ×3 (06:03→17:57)
[2018-02-10 06:16] LABS: ALBUMIN 1.6 g/dl (3.4-5.0); ANION GAP 2 MMOL/L (8-16); BLOOD UREA NITROGEN 41 mg/dL (7-18); CALCIUM 7.9 mg/dL (8.5-10.1); CHLORIDE 110 mmol/L (98-107); CO2 29 mmol/L (21-32); GLUCOSE,RANDOM 220 mg/dL (74-106); POTASSIUM 4.9 mmol/L (3.5-5.1); SODIUM 141 mmol/L (136-145)
[2018-02-10 06:21] LABS: ALK PHOS 119 U/L (45-117); BILIRUBIN,TOTAL 0.5 mg/dL (0.2-1.0); SGOT/AST 10 U/L (15-37); SGPT/ALT 18 U/L (12-78); TOT PROT 5.4 g/dl (6.4-8.2)
[2018-02-10 06:22] LABS: BASO % 0.9 % (0-2.0); EOS % 3.2 % (0-4.5); HEMATOCRIT 28.8 % (35.4-49); HEMOGLOBIN 9.3 GM/dL (11.7-16.9); LYMPH % 19.7 % (8-40); MCH 29.2 pg (25.7-33.7); MCHC 32.3 g/dl (32.0-35.9); MEAN CELL VOLUME 90.4 fl (80-96); MEAN PLT VOLUME 7.6 fl (7.5-11.1); MONO % 9.4 % (3.8-10.2); NEUT % 66.8 % (42.8-82.8); PLATELET COUNT 234 K/MM3 (134-434); RBC 3.19 M/mm3 (4.00-5.60); RDW 15.4 % (11.9-15.9); WHITE BLOOD COUNT 5.1 K/mm3 (4.0-10.0)
--- NOTE | 2018-02-10 06:55 | PN ---
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 (short form) - Note 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: Chief Complaint: Events noted, notes reviewed, denies any chest pain or dyspnea , anxious to be D/C home, sinus rhythm is noted History of Present Illness: Seen and examined in the ICU. Events noted, notes reviewed, denies any chest pain or dyspnea, anxious to be D/C home, sinus rhythm is noted Echocardiography dated 10/17 revealed normal LV size and low normal LVEF 50% improved from 2017 Manufacturing Area Manager: Dr. Beau Chacon [facility] Medications: Current Medications Acetaminophen (Tylenol -) 650 mg PO Q4H PRN PRN Reason: FEVER Last Admin: 02/10/18 05:48 Dose: 650 mg Albuterol/Ipratropium (Duoneb -) 1 amp NEB Q4H PRN PRN Reason: SHORTNESS OF BREATH Allopurinol (Zyloprim -) 100 mg PO DAILY [facility] Last Admin: 02/09/18 09:45 Dose: 100 mg Aspirin (Ecotrin -) 81 mg PO DAILY [facility] Last Admin: 02/09/18 09:45 Dose: 81 mg Atorvastatin Calcium (Lipitor -) 80 mg PO HS [facility] Last Admin: 02/09/18 21:17 Dose: 80 mg Carvedilol (Coreg -) 25 mg PO BID [facility] Last Admin: 02/09/18 21:17 Dose: 25 mg Chlorhexidine Gluconate (Hibiclens For Decolonization -) 1 applic TP HS [facility] Last Admin: 02/09/18 21:17 Dose: 1 applic Cholecalciferol (Vitamin D3 -) 1,000 unit PO DAILY [facility] Last Admin: 02/09/18 09:45 Dose: 1,000 unit Clopidogrel Bisulfate (Plavix -) 75 mg PO DAILY [facility] Last Admin: 02/09/18 09:45 Dose: 75 mg Collagenase (Santyl -) 1 applic TP DAILY [facility]; Protocol Last Admin: 02/09/18 09:47 Dose: 1 applic Docusate Sodium (Colace -) 300 mg PO DAILY [facility] Last Admin: 02/09/18 09:44 Dose: 300 mg Furosemide (Lasix -) 20 mg PO DAILY [facility] Last Admin: 02/09/18 09:43 Dose: 20 mg Gabapentin (Neurontin -) 600 mg PO BID [facility] Last Admin: 02/09/18 21:17 Dose: 600 mg Insulin Aspart (Novolog Vial Sliding Scale -) 1 vial SQ [facility]; Protocol Last Admin: 02/10/18 06:03 Dose: 4 units Isosorbide Dinitrate (Isordil -) 20 mg PO TIDISORDIL [facility] Last Admin: 02/09/18 18:14 Dose: 20 mg Mupirocin (Bactroban Ointment (For Decolonization) -) 1 applic NS BID [facility] Stop: 02/10/18 11:19 Last Admin: 02/09/18 21:16 Dose: 1 applic Ondansetron HCl (Zofran Injection) 4 mg IVPUSH Q6H PRN PRN Reason: NAUSEA AND/OR VOMITING Review of Systems - Review of Systems Constitutional: denies: Chills or Fever Cardiovascular: as noted above Gastrointestinal: denies: Nausea, Vomiting, Diarrhea, Constipation or Abdominal Pain Genitourinary: No symptoms reported Neurological: No symptoms reported Vital Signs: Last Vital Signs Temp Pulse Resp BP Pulse Ox 97.8 F 61 13 133/60 100 02/10/18 06:00 02/10/18 06:00 02/10/18 06:00 02/10/18 06:00 02/04/18 21:00 Intake & Output 02/07/18 02/08/18 02/09/18 02/10/18 23:59 23:59 23:59 23:59 Intake Total 500 1075 1230 100 Output Total 9245 965 8234 280 Balance -745 190 150 -180 Weight 169 lb 172 lb 4 oz 166 lb 2 oz 172 lb 5 oz Neck: Supple Negative JVD No Bruit Respiratory: Diminished Breath Sounds at the Bases Cardiovascular: S1 S2 Regularly Rate and Rhythm Gastrointestinal: Soft Benign Normal Bowel Sounds Ext: Negative Edema Labs: CBC, BMP 02/10/18 05:30 02/10/18 05:30 Assessment/Plan ASSESSMENT: 1. POD#6 R VATS pneumo-lysis, pleural biopsy and partial decortication for chronic loculated non-draining right pleural effusion despite TPA 2. CAD post [place] post multi-vessel PCI/stent angina pectoris 3. Systolic/diastolic LV dysfunction with class 0 NYHA classification LV failure 4. HTN 5. DM 6. Hypercholesterolemia 7. CKD with history of hyperkalemia 8. Anemia post transfusion PLAN: 1. Continue ASA and Plavix with caution 2. Continue Lipitor 3. Continue Carvedilol 4. Continue Nitrates but initiate Imdur in substitution for Isordil 5. Continue Lasix with caution and close monitoring of renal function 6. Ideally should be on on YUKI-I or ARBS but to be deferred related to drug induced to hyperkalemia 7. Monitor H/H and transfuse PRBC if indicated, maintain Hg equal or > 8.0 Kevin Smith M.D.
--- NOTE | 2018-02-10 08:21 | PN ---
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 (short form) - Note 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: 72yo M s/p Right VATS and decort. Pt seen at bedside with no complaints, states breathing well. Pt had one of his chest tubes removed yesterday without incident. Pt other chest tube currently on waterseal. Pt denies n/v, fever, chills. Last Vital Signs Temp Pulse Resp BP Pulse Ox 97.8 F 61 13 133/60 100 02/10/18 06:00 02/10/18 06:00 02/10/18 06:00 02/10/18 06:00 02/04/18 21:00 CBC, BMP 02/10/18 05:30 02/10/18 05:30 PE: Gen: A&O x3 Resp: breathing comfortably, diminished lung sounds RLL Heart: RRR Chest: RT chest tube with serosanguinous drainage. Ouput: 70ml Problem List - Problems (1) S/P thoracostomy tube placement Assessment/Plan: Plan -pt appears to be doing well, will review cxr this am if ok will pull chest tube. -continue incentive spirometry -chest PT Will follow up after cxr Code(s): Z93.8 - OTHER ARTIFICIAL OPENING STATUS
[2018-02-10] MEDS ORDERED: MAGNESIUM HYDROX 2400MG/30ML ORAL SUSPENSION 30 ML CUP PO ONE (09:00)
--- NOTE | 2018-02-10 10:19 | PROC ---
Procedure Note Procedure: After reviewing this mornings xray and discussed findings with Dr. Vale (he remotely reviewed image as well), approved removal of CxT. Right chest tube removed fully intact. Xeroform, 4x4 and occlusive dressing applied. Patient tolerated procedure well. Post-pull CXR ordered --> if ok, patient can be discharged today w/ f/u in Dr. Vale's office in 1-2 weeks
[2018-02-10] MEDS ORDERED: PT OWN MED DRAWER 7, Y5N ONE ×2 (10:44→17:31)
[2018-02-10] MEDS: MUPIROCIN 2% TOPICAL OINTMENT FOR DECOLONIZATION NS SCH (11:03)
[2018-02-10] MEDS: DOCUSATE SODIUM 100 MG CAPSULE (FP) PO SCH (11:04)
[2018-02-10] MEDS: ALLOPURINOL 100 MG TABLET (FP) PO SCH (11:04)
[2018-02-10] MEDS: ASPIRIN COATED 81 MG TABLET.EC PO SCH (11:05)
[2018-02-10] MEDS: ISOSORBIDE DINITRATE 20 MG TABLET (FP) PO SCH ×3 (11:05→17:55)
[2018-02-10] MEDS: CARVEDILOL 25 MG TABLET (FP) PO SCH (11:05)
[2018-02-10] MEDS: GABAPENTIN 300 MG CAPSULE (FP) PO SCH (11:06)
[2018-02-10] MEDS: FUROSEMIDE 20 MG TABLET (FP) PO SCH (11:06)
[2018-02-10] MEDS: CLOPIDOGREL BISULFATE 75 MG TABLET (FP) PO SCH (11:06)
[2018-02-10] MEDS: CHOLECALCIFEROL (VITAMIN D3) 1,000 UNIT TABLET (FP) PO SCH (11:07)
[2018-02-10] MEDS: COLLAGENASE CLOSTRIDIUM HIST. 30 GRAMS TUBE TP SCH (11:08)
[2018-02-10 19:13] VITALS: TEMP 98.1
--- NOTE | 2018-02-10 19:27 | DS ---
Physical Examination Vital Signs: Vital Signs Temperature 98.1 F 02/10/18 14:00 Pulse Rate 70 02/10/18 18:00 Respiratory Rate 18 02/10/18 18:00 Blood Pressure 129/64 02/10/18 18:00 O2 Sat by Pulse Oximetry (%) 100 02/04/18 21:00 Constitutional: Yes: No Distress, Calm Eyes: Yes: Conjunctiva Clear, EOM Intact HENT: Yes: Atraumatic, Normocephalic Neck: Yes: Supple, Trachea Midline Cardiovascular: Yes: Regular Rate and Rhythm, S1, S2 Respiratory: Yes: Regular, CTA Bilaterally Gastrointestinal: Yes: Normal Bowel Sounds, Soft, Abdomen, Obese. No: Hepatomegaly, Splenomegaly Breast(s): Yes: WNL Musculoskeletal: Yes: Other (right chest painwith movement) Extremities: No: Calf Tenderness Edema: No Peripheral Pulses WNL: Yes Wound/Incision: Yes: Other (chest tibe removed) Neurological: Yes: Alert, Oriented Psychiatric: Yes: Alert, Oriented Labs: CBC, BMP 02/10/18 05:30 02/10/18 05:30 Discharge Summary Reason For Visit: PLEURAL EFFUSION Current Active Problems Acute blood loss anemia (Acute) Chronic hyperkalemia (Acute) Constipation (Acute) S/P thoracostomy tube placement (Acute) DM type 2 with nephropathy CKD CHF systolo diastolic Chronic hyperkaliemia Pressure ulcer of the sacral area stage 2 Other Procedures: blood transfusion 1 unit PRBC Hospital Course: 72 yo male admitted with dyspnea and non draining pleurx catheter. The patient had VATS procedure and partial decortication of the right lung which he tolerated well. The patient had his second chest tube removed today and feels fine. He denies and shortness of breath his Spirometry is up to 1000 cc. His CXRays consistently show expansion of the lung and no accumulation of fluid. During the admission the patient received 1 unit of PRBC for correction of acute blood loss anemia. PMH: CAD s/p stenting, DM type 2 with nephropathy, HTN, CHF, recurrent right pleural effusion The patient is discharged today with instructions to resume all his medications including Glipizide tablets of 5 mg 1.5 tablet twice a day. The dosage of Lasix was modified to 20 mg daily alternating with 40 mg daily. The patient will follow up with his CT surgeon Dr Vale in 2 weeks, his Regional Maintenance Manager Margarito Chacon and Senior Sharepoint Architect Dr. Flores within latanya next 2 weeks or so. I will see him 3 days post discharge for a repeat blood work, and evaluation. A request for [facility] services for wound care and PT was made by me. Condition: Good - Instructions Diet, Activity, Other Instructions: Thoracic Surgery - Aman Vale MD Post Operative Instructions Physical activity Resume your normal everyday activity as tolerated no heavy lifting or exercise until seen by your surgeon. You may walk unlimited amounts of and climb stairs. You may resume driving the car when you feel safe and comfortable behind the wheel. Wound care If you have a bandage, leave it on, and keep dry for 48 - 72 hours. After that time discard the outer bandage. Skin kimberly to be removed by Dr. Vale in 10 days. Keep incisions clean and dry. You may shower starting tomorrow. Change dressings to right chest wall daily with 4x4 and tape. No pools, baths or hot tubs (don't want wounds to be submerged under water) until seen by Dr. Vale Diet There are no dietary restrictions. Eat healthy, high-fiber foods. Drink 6 to 8 glasses of liquid each day. This will assist in keeping your bowels are regular. Pain management You may take Tylenol or acetaminophen or Ibuprofen (for example, Motrin, Advil etc.) Any pain prescription medication ordered should be taken as prescribed for moderate to severe pain. Call Dr. Vale for any of the following: Inability to urinate Call the office for a post operative appointment in 7 - 10 days. Disposition: VNS/HOME HEALTH CARE - Home Medications Comprehensive Discharge Medication List: Ambulatory Orders Acetaminophen [Pain Relief] 650 mg PO PRN 02/03/18 Allopurinol [Zyloprim -] 100 mg PO DAILY 02/03/18 Aspirin [Ecotrin] 81 mg PO DAILY 02/03/18 Atorvastatin Ca [Lipitor] 80 mg PO HS 02/03/18 Carvedilol 25 mg PO BID 02/03/18 Clopidogrel Bisulfate [Plavix] 75 mg PO DAILY 02/03/18 Docusate Sodium [Dulcolax Stool Softener] 300 mg PO DAILY 02/03/18 Furosemide 40 mg PO DAILY 02/03/18 Gabapentin [Neurontin] 600 mg PO BID 02/03/18 Isosorbide Dinitrate [Isordil -] 20 mg PO TID 02/03/18 Acetaminophen [Tylenol .Regular Strength -] 650 mg PO Q4H PRN tablet 02/10/18 Allopurinol [Zyloprim -] 100 mg PO DAILY tablet 02/10/18 Aspirin Coated [Ecotrin -] 81 mg PO DAILY tablet.ec 02/10/18 Carvedilol [Coreg -] 25 mg PO BID tablet 02/10/18 Cholecalciferol (Vitamin D3) [Vitamin D3 -] 1,000 unit PO DAILY tab 02/10/18 Clopidogrel Bisulfate [Plavix -] 75 mg PO DAILY tablet 02/10/18 Collagenase Clostridium Hist. [Santyl -] 1 applic TP DAILY tube 02/10/18 Docusate Sodium [Colace -] 300 mg PO DAILY capsule 02/10/18 Furosemide [Lasix -] 20 mg PO Q2D #30 tablet 02/10/18 Gabapentin [Neurontin -] 600 mg PO BID capsule 02/10/18 Mupirocin Ointment [Bactroban Ointment (For Decolonization) -] 1 applic NS BID 30 Days #1 tube 02/10/18
[2018-02-10 21:49] VITALS: BP 126/62; PULSE 76
== END 2018-02-10 20:35 | disposition home health service (06) | DRG 164 ==
LOC: JSAMEDAYSX 09:33 → EDSTATUS 12:00 → JICU 17:45
PROVIDERS: ADMIT Surgery; ATTEND Internal Medicine
PROC: 0BNF4ZZ Release Right Lower Lung Lobe, Percutaneous Endoscopic Approach (ICD-10-PCS; principal; 2018-02-04 12:00)
PROC: 0B9 Respiratory System, Drainage (ICD-10-PCS; 2018-02-04 12:00)
PROC: 0B9 Respiratory System, Drainage (ICD-10-PCS; 2018-02-04 12:00)
PROC: 30233N1 Transfusion of Nonautologous Red Blood Cells into Peripheral Vein, Percutaneous Approach (ICD-10-PCS; 2018-02-08)
DX: J90 Pleural effusion, not elsewhere classified (principal); I50.42 Chronic combined systolic (congestive) and diastolic (congestive) heart failure; D62 Acute posthemorrhagic anemia; N18.5 Chronic kidney disease, stage 5; I13.0 Hypertensive heart and chronic kidney disease with heart failure and stage 1 through stage 4 chronic kidney disease, or unspecified chronic kidney disease; I47.1 Supraventricular tachycardia; L89.152 Pressure ulcer of sacral region, stage 2; E87.5 Hyperkalemia; K59.00 Constipation, unspecified; E11.21 Type 2 diabetes mellitus with diabetic nephropathy; I25.119 Atherosclerotic heart disease of native coronary artery with unspecified angina pectoris; Z98.61 Coronary angioplasty status; I27.20 Pulmonary hypertension, unspecified; E78.5 Hyperlipidemia, unspecified
CPT/HCPCS: 36415; 36430; 71045-TC-FY; 71046-TC-FY; 80048; 80053; 82550; 82962; 83735; 84100; 84484; 85025; 85027; 85610; 85730; 86850; 86900; 86901; 86922; 87070; 87075; 87186; 87205; 88108; 88305-TC; 88331-TC; 93005; 93010; 94010; 94640; 94760; 97116-GP; 97162-GP; J1644; P9038; P9058

== ENCOUNTER 2018-03-28 02:27 | Inpatient (IN) | payer OTHER, BC ==
--- NOTE | 2018-03-28 02:41 | PDOC ---
History of Present Illness - General History Source: Patient, Family Exam Limitations: No Limitations - History of Present Illness Initial Comments: 03/28/18 03:09 This is a 73 year old male with a medical history of DMII, CKD, CHF, s/p VATS and partial decortication the right lung, who was BIBA due to a syncopal like episode at home. at bedside with patient, both giving history. states patient states got up from bed, to walk to bathroom, legs weak chronically, was sitting on toilet and passed out while going to the bathroom. He fell to floor. states he was diaphoretic, pale, and drooping. She called 911, firefighters arrived at scene and started to bag ventilate patient due to hypoxia. According to EMS team, when they arrived to scene they got the patient to sit upright and he passed out again. These episodes lasted a few minutes. Patient does not remember everything that happened. He currently denies fever, chills, n, v, tongue bitting, bowel or bladder incontinence, chest pain, sob, cough, leg swelling. endorses unintentional weight loss, 15lbs in one month. Poor appetite. PMHx: DMII, CKD, HTN, CHF systolic/diastolic, chronic hyperkalemia, pressure ulcer, PNA, pleural effusion,VATS Surgical hx: VATS Social hx: was a smoker quit 30yrs ago, denies alcohol Allergies:pioglitazone 1 <Pratibha Nuno - Last Filed: 03/28/18 04:47> <Lizzie Santos - Last Filed: 03/28/18 05:35> - General Chief Complaint: Syncope/Near Syncope Stated Complaint: syncope Time Seen by Provider: 03/28/18 02:41 Past History - Past Medical History Anemia: No Asthma: No Cancer: Yes (skin) Cardiac Disorders: Yes (cad- cardiac cath, 6 stents total) CVA: No COPD: Yes CHF: Yes DVT: No Dementia: No Diabetes: Yes Dialysis: No (CKD) GI Disorders: No Disorders: No HTN: Yes Hypercholesterolemia: Yes Liver Disease: No Seizures: No Thyroid Disease: No - Surgical History Abdominal Surgery: Yes (HERNIA repair) Appendectomy: No Cardiac Surgery: Yes (STENTS , 07/2016) Cholecystectomy: No Lung Surgery: Yes (bronchoscopy 03/17, right chest pleural catheter) Neurologic Surgery: No Orthopedic Surgery: No - Immunization History Td Vaccination: Yes Immunization Up to Date: Yes - Suicide/Smoking/Psychosocial Hx Smoking Status: No Smoking History: Never smoked Have you smoked in the past 12 months: No Number of Cigarettes Smoked Daily: 0 If you are a former smoker, when did you quit?: 35yrs ago Information on smoking cessation initiated: No 'Breaking Loose' booklet given: 08/15/15 Hx Alcohol Use: No Drug/Substance Use Hx: No Substance Use Type: None Hx Substance Use Treatment: No <Pratibha Nuno - Last Filed: 03/28/18 04:47> <Lizzie Santos - Last Filed: 03/28/18 05:35> - Past Medical History Allergies/Adverse Reactions: Allergies Allergy/AdvReac Type Severity Reaction Status Date / Time pioglitazone HCl [From Likeedsos] Allergy Severe CHF Verified 03/28/18 02:30 Home Medications: Ambulatory Orders Acetaminophen [Pain Relief] 650 mg PO PRN 02/03/18 Allopurinol [Zyloprim -] 100 mg PO DAILY 02/03/18 Aspirin [Ecotrin] 81 mg PO DAILY 02/03/18 Atorvastatin Ca [Lipitor] 80 mg PO HS 02/03/18 Carvedilol 25 mg PO BID 02/03/18 Clopidogrel Bisulfate [Plavix] 75 mg PO DAILY 02/03/18 Docusate Sodium [Dulcolax Stool Softener] 300 mg PO DAILY 02/03/18 Furosemide 40 mg PO DAILY 02/03/18 Gabapentin [Neurontin] 600 mg PO BID 02/03/18 Isosorbide Dinitrate [Isordil -] 20 mg PO TID 02/03/18 Acetaminophen [Tylenol .Regular Strength -] 650 mg PO Q4H PRN tablet 02/10/18 Allopurinol [Zyloprim -] 100 mg PO DAILY tablet 02/10/18 Aspirin Coated [Ecotrin -] 81 mg PO DAILY tablet.ec 02/10/18 Carvedilol [Coreg -] 25 mg PO BID tablet 02/10/18 Cholecalciferol (Vitamin D3) [Vitamin D3 -] 1,000 unit PO DAILY tab 02/10/18 Clopidogrel Bisulfate [Plavix -] 75 mg PO DAILY tablet 02/10/18 Collagenase Clostridium Hist. [Santyl -] 1 applic TP DAILY tube 02/10/18 Docusate Sodium [Colace -] 300 mg PO DAILY capsule 02/10/18 Furosemide [Lasix -] 20 mg PO Q2D #30 tablet 02/10/18 Gabapentin [Neurontin -] 600 mg PO BID capsule 02/10/18 Mupirocin Ointment [Bactroban Ointment (For Decolonization) -] 1 applic NS BID 30 Days #1 tube 02/10/18 Review of Systems - Review of Systems Able to Perform ROS?: Yes Is the patient limited Malian proficient: Yes Constitutional: Yes: Loss of Appetite, Unintentional Wgt. Loss (15lb in a month) . No: Chills, Diaphoresis, Fever HEENTM: No: Eye Pain, Blurred Vision Respiratory: No: Cough, Orthopnea, Shortness of Breath, SOB with Exertion, Wheezing, Productive cough Cardiac (ROS): Yes: Lightheadedness, Syncope. No: Chest Pain, Edema, Irregular Heart Rate, Palpitations ABD/GI: Yes: Constipated. No: Abdominal Distended, Abd. Pain w/ defecation, Difficulty Swallowing : No: Burning, Discharge, Frequency Musculoskeletal: Yes: Gout. No: Joint Pain Neurological: Yes: Weakness (bilateral legs). No: Headache, Numbness Psychiatric: No: Anxiety, Depression <Pratibha Nuno - Last Filed: 03/28/18 04:47> *Physical Exam - Vital Signs Last Vital Signs Temp Pulse Resp BP Pulse Ox 97.8 F 60 18 125/65 95 03/28/18 02:34 03/28/18 02:30 03/28/18 02:30 03/28/18 02:30 03/28/18 02:30 - Physical Exam General Appearance: Yes: Appropriately Dressed, Other (yellow skin tone) HEENT: positive: Normal ENT Inspection, Normal Voice Neck: negative: Carotid bruit Respiratory/Chest: positive: Crackles (L>R), Wheezing. negative: Respiratory Distress Cardiovascular: positive: Regular Rhythm, Regular Rate, S1, S2 Vascular Pulses: Carotid (R): 2+, Carotid (L): 2+, Dorsalis-Pedis (R): 2+, Doralis-Pedis (L): 2+ Gastrointestinal/Abdominal: positive: Normal Bowel Sounds. negative: Tender Musculoskeletal: positive: Normal Inspection Extremity: positive: Normal Capillary Refill, Normal Range of Motion Integumentary: positive: Jaundice, Pale Neurologic: positive: fairground operator II-XII NML intact, Fully Oriented, Normal Mood/Affect , Normal Response, Motor Strength 5/5. negative: Facial Droop, Numbness, Sensory Deficit, Confused Deep Tendon Reflexes: Ankle (L): 2+, Ankle (R): 2+, Knee (L): 2+, Knee (R): 2+, Bicep (L): 2+, Bicep (R): 2+, Tricep (L): 2+, Tricep (R): 2+ <Pratibha Nuno - Last Filed: 03/28/18 04:47> - Vital Signs Last Vital Signs Temp Pulse Resp BP Pulse Ox 97.8 F 60 18 125/65 95 03/28/18 02:34 03/28/18 02:30 03/28/18 02:30 03/28/18 02:30 03/28/18 02:30 <Lizzie Santos - Last Filed: 03/28/18 05:35> ED Treatment Course - LABORATORY CBC & Chemistry Diagram: 03/28/18 03:47 03/28/18 03:06 <Pratibha Nuno - Last Filed: 03/28/18 04:47> - LABORATORY CBC & Chemistry Diagram: 03/28/18 03:47 03/28/18 03:06 - ADDITIONAL ORDERS Additional order review: Laboratory Results 03/28/18 03:06 Sodium 141 Potassium 4.1 Chloride 104 Carbon Dioxide 31 Anion Gap 6 L BUN 30 H Creatinine 1.1 Creat Clearance w eGFR > 60 Random Glucose 93 Calcium 7.5 L Phosphorus 3.7 Magnesium 2.1 Total Bilirubin 0.7 AST 16 ALT 22 Alkaline Phosphatase 113 Creatine Kinase 50 Troponin I 0.03 Total Protein 6.5 Albumin 1.7 L TSH 3.61 D 03/28/18 03:47 RBC 3.00 L MCV 86.9 MCHC 32.8 RDW 18.0 H MPV 7.8 Neutrophils % 71.4 Lymphocytes % 19.5 D Monocytes % 6.8 Eosinophils % 1.7 Basophils % 0.6 - RADIOLOGY Radiology Studies Ordered: Category Date Time Status HEAD CT WITHOUT CONTRAST [CT] Stat CT Scan 03/28/18 02:46 Taken - Medications Given in the ED: ED Medications Discontinued Medications Generic Name Dose Route Start Last Admin Trade Name Amy PRN Reason Stop Dose Admin Sodium Chloride 1,000 ml 03/28/18 02:45 03/28/18 03:11 Normal Saline - IV 03/28/18 02:46 1,000 ml ONCE ONE Administration <Lizzie Santos - Last Filed: 03/28/18 05:35> Medical Decision Making - Medical Decision Making 03/28/18 03:26 This is a 73 year old male with multiple medical problems, incluind DMII, HTN, CKD, HTN, CHF, PNA, plueral effusions, s/p VATS and partial decortication of the right lung, who was BIBA after 2 syncopal like episodes at home. R/O ACS, arrhythmia, seizure, hypo/hyperglycemia, vasovagal, orthostatic hypotension, hypoxia, stroke/tia. #syncope; -cbc, cmp, pt/inr, tsh -head CT -carotid doppler -ecg -cxr -orthostatic bp 03/28/18 03:48 03/28/18 04:47 Will discuss admission for further work up due to multiple co morbidities <Pratibha Nuno - Last Filed: 03/28/18 04:47> *DC/Admit/Observation/Transfer - Discharge Dispostion Decision to Admit order: Yes <Pratibha Nuno - Last Filed: 03/28/18 04:47> - Discharge Dispostion Decision to Admit order: Yes <Lizzie Santos - Last Filed: 03/28/18 05:35> Diagnosis at time of Disposition: Syncope and collapse - Discharge Dispostion Condition at time of disposition: Guarded
--- NOTE | 2018-03-28 02:42 | PDOC ---
Attending Attestation - Resident Resident Name: Pratibha Nuno - ED Attending Attestation I have performed the following: I have examined & evaluated the patient, The case was reviewed & discussed with the resident, I agree w/resident's findings & plan - HPI HPI: 03/28/18 05:47 Pt comes with syncope at home once when he got up to go to the bathroom; another time witnessed by [employer] and EMS when they were called. - Physicial Exam PE: 03/28/18 05:46 Agree with the resident exam - Medical Decision Making 03/28/18 05:26 Patient Name: ROSA MARIA GAGE THIS IS A PRELIMINARY REPORT FROM [facility] DATE OF SERVICE: 2018-03-28 04:41:19 IMAGES: 140 EXAM: HEAD CT WITHOUT CONTRAST HISTORY: Syncope COMPARISON: None. FINDINGS: No evidence of hemorrhage, acute territorial infarction, mass effect, midline shift, hydrocephalus, or extra-axial collections Age-appropriate volume loss with moderate microangiopathic chronic ischemic changes Vascular calcifications of the carotid siphons No hyperdense arterial or venous sign Clear paranasal sinuses, mastoid air cells, and middle ear cavities Status post bilateral cataract surgery The calvarium is intact. IMPRESSION: 1. No acute intracranial pathology 03/28/18 05:46 Dr. Mondragon is aware of the patient
[2018-03-28] MEDS ORDERED: SODIUM CHLORIDE 0.9% 500 ML INFUS.BAG IV ONE (02:45)
[2018-03-28 03:54] LABS: BASO % 0.6 % (0-2.0); EOS % 1.7 % (0-4.5); HEMATOCRIT 26.1 % (35.4-49); HEMOGLOBIN 8.5 GM/dL (11.7-16.9); LYMPH % 19.5 % (8-40); MCH 28.5 pg (25.7-33.7); MCHC 32.8 g/dl (32.0-35.9); MEAN CELL VOLUME 86.9 fl (80-96); MEAN PLT VOLUME 7.8 fl (7.5-11.1); MONO % 6.8 % (3.8-10.2); NEUT % 71.4 % (42.8-82.8); PLATELET COUNT 269 K/MM3 (134-434); WHITE BLOOD COUNT 7.2 K/mm3 (4.0-10.0)
[2018-03-28 05:23] LABS: ALBUMIN 1.7 g/dl (3.4-5.0); ALK PHOS 113 U/L (45-117); ANION GAP 6 MMOL/L (8-16); BILIRUBIN,TOTAL 0.7 mg/dL (0.2-1); BLOOD UREA NITROGEN 30 mg/dL (7-18); CALCIUM 7.5 mg/dL (8.5-10.1); CHLORIDE 104 mmol/L (98-107); CO2 31 mmol/L (21-32); CREATININE 1.1 mg/dL (0.55-1.3); GLUCOSE,RANDOM 93 mg/dL (74-106); MAGNESIUM 2.1 mg/dL (1.8-2.4); PHOSPHOROUS 3.7 mg/dL (2.5-4.9); POTASSIUM 4.1 mmol/L (3.5-5.1); SGOT/AST 16 U/L (15-37); SGPT/ALT 22 U/L (13-61); SODIUM 141 mmol/L (136-145); TOT PROT 6.5 g/dl (6.4-8.2)
[2018-03-28 05:36] LABS: INR 1.19 (0.83-1.09); PROTHROMBIN TIME (PATIENT) 14.1 SEC (9.7-13.0)
[2018-03-28] MEDS ORDERED: FUROSEMIDE 40 MG TABLET (FP) PO SCH ×2 (10:00→16:20)
--- NOTE | 2018-03-28 14:54 | EKG ---
Test Reason : Blood Pressure : / mmHG Vent. Rate : 063 BPM Atrial Rate : 063 BPM P-R Int : 180 ms QRS Dur : 120 ms QT Int : 498 ms P-R-T Axes : 038 -49 084 degrees QTc Int : 509 ms SINUS RHYTHM WITH PREMATURE ATRIAL COMPLEXES LEFT AXIS DEVIATION POSSIBLE ANTERIOR INFARCT (CITED ON OR BEFORE 06-AUG-2017) ABNORMAL ECG lateral t wave abnormalities Confirmed by MD Majo, Anjum ([id number]) on 03/28/2018 2:54:19 PM Referred By: Confirmed By:Anjum Kasper MD
--- NOTE | 2018-03-28 16:00 | HP ---
Admitting History and Physical - Admission Chief Complaint: syncope X2 early this morning History of Present Illness: 73 yo male with PMH CAD, CHF secondary to systolo- diastolic heart failure, S/ P VATS 02/17 procedure for right chronic loculated pleural effusion, chronic Atrial fibrillation, presented to ER with 2 episodes of witnessed syncope. The patient got up from sleep around 1:30 am and while walking to the bathroom he felt his knees very shaky. He fainted while sitting on the toilette. EMS was activated. The patient regained consciousness and then fainted again. According to the patient's , EMS recorded a HR of 36 b/min, during the episode. Unfortunately the ER records do not document any of these findings but the is a reliable source of information. The patient had similar complaints of "weak and shaky" lower extremities and actually he fell 5 days ago while walking. In my office I've never found him bradycardic. The patient has h/o CAD with revascularization with PTCA/WYATT of a proximal LAD stenosis and PTCA/WYATT for a circumflex and in-stent restenosis on . in September 2017 left ventricular systolic performance showed normal size with EF of 50% The patient has a loop recorder which will be re evaluated in the office of his Network Firewall Engineer dr. Lawrence Padilla in May 2018. The anticipated Lexiscan sestamibi is scheduled by his bundle person in 2019. 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 Cardiovascular: Yes: CAD (prior anterolateral CA 03/1995 w/ PCI of LAD & ramus, PCI of LAD 05/1996 (with 100% occluded ramus and patent RCA), rotoblator & PCI w / Xience stent prox LAD & prox/mid Cfx 07/30/16), CHF, Hyperlipdemia, CA ( anterolateral CA 1994), Other (CHF) Pulmonary: Yes: Pneumonia (03/2016), Other (Chronic right pleural effusion ) Gastrointestinal: Yes: GERD, Irritable Bowel Disease Renal/: Yes: Renal Inusuff, BPH, Renal Calculi Musculoskeletal: Yes: Osteoarthritis Rheumatology: Yes: Gout Endocrine: Yes: Diabetes Mellitus (with peripheral neuropathy), Other ( Hypogonadism, nodular goiter) - Past Surgical History Past Surgical History: Yes: Cataract Removal (bilateral), Hernia Repair ( umbillical) - Smoking History Smoking history: Never smoked Have you smoked in the past 12 months: No Aproximately how many cigarettes per day: 0 If you are a former smoker, when did you quit?: 35yrs ago - Alcohol/Substance Use Hx Alcohol Use: No History of Substance Use: reports: None - Social History ADL: Independent History of Recent Travel: No Home Medications - Allergies Allergies/Adverse Reactions: Allergies Allergy/AdvReac Type Severity Reaction Status Date / Time pioglitazone HCl [From Actos] Allergy Severe CHF Verified 03/28/18 02:30 - Home Medications Home Medications: Ambulatory Orders Allopurinol [Zyloprim -] 100 mg PO DAILY 02/03/18 Aspirin [Ecotrin] 81 mg PO DAILY 02/03/18 Atorvastatin Ca [Lipitor] 80 mg PO HS 02/03/18 Carvedilol 25 mg PO BID 02/03/18 Docusate Sodium [Dulcolax Stool Softener] 300 mg PO DAILY 02/03/18 Gabapentin [Neurontin] 600 mg PO BID 02/03/18 Isosorbide Dinitrate [Isordil -] 20 mg PO BID 02/03/18 Acetaminophen [Tylenol .Regular Strength -] 650 mg PO Q4H PRN tablet 02/10/18 Clopidogrel Bisulfate [Plavix -] 75 mg PO DAILY tablet 02/10/18 Furosemide [Lasix -] 80 mg PO Q2D 03/28/18 Family Disease History - Family Disease History Family Disease History: Heart Disease: Father, Mother (CHF) Review of Systems - Review of Systems Constitutional: reports: No Symptoms Eyes: reports: No Symptoms HENT: reports: No Symptoms Neck: reports: No Symptoms Cardiovascular: reports: Shortness of Breath (at baseline) Respiratory: denies: Orthopnea, PND, Wheezing Genitourinary: reports: Frequency Breasts: reports: No Symptoms Reported Endocrine: reports: No Symptoms Psychiatric: reports: No Symptoms Physical Examination Vital Signs: Vital Signs Temperature 98.9 F 03/28/18 08:03 Pulse Rate 66 03/28/18 12:01 Respiratory Rate 18 03/28/18 11:39 Blood Pressure 144/75 03/28/18 12:01 O2 Sat by Pulse Oximetry (%) 97 03/28/18 11:39 Constitutional: Yes: No Distress, Calm Eyes: Yes: Conjunctiva Clear, EOM Intact HENT: Yes: Atraumatic, Normocephalic Neck: Yes: Supple, Trachea Midline Cardiovascular: Yes: Regular Rate and Rhythm, S1, S2 Respiratory: Yes: Regular, CTA Bilaterally Gastrointestinal: Yes: Normal Bowel Sounds, Soft, Abdomen, Obese. No: Hepatomegaly, Palpable Mass, Splenomegaly, Tenderness ...Rectal Exam: Yes: Deferred Extremities: No: Calf Tenderness, Erythema Edema: No Edema: LLE: 1+, RLE: 1+ Peripheral Pulses WNL: Yes Neurological: Yes: Alert, Oriented Psychiatric: Yes: Alert, Oriented Labs: CBC, BMP 03/28/18 03:47 03/28/18 03:06 Imaging - Results Chest X-ray: Other (cardiomegaly, right atelectasis, clear left lung base) EKG: Other (NSR, 63 b/min, [place] at -45, LAD , new T inversion V5, V6) Problem List - Problems (1) Syncope and collapse Assessment/Plan: vaso vagal vs symptomatic bradycardia? requires telemetry monitoring and possible recorder interrogation rule out orthostatism d/c Neurontin Code(s): R55 - SYNCOPE AND COLLAPSE (2) Bradycardia with 31-40 beats per minute Assessment/Plan: this information was obtained from the and apparently recorded during the EMS activation, since the bradycardia could be the manifestation of a vaso vagal reaction I will continue the Coreg the patient has a loop recorder implanted that can be interrogated Code(s): R00.1 - BRADYCARDIA, UNSPECIFIED (3) Atrial fibrillation Assessment/Plan: I will administer Coreg and admit the patient to telemetry, loop recorder interrogation?, Holter? Code(s): I48.91 - UNSPECIFIED ATRIAL FIBRILLATION (4) Status post placement of implantable loop recorder Assessment/Plan: possible need for interrogation Code(s): Z95.818 - PRESENCE OF OTHER CARDIAC IMPLANTS AND GRAFTS (5) T wave inversion in EKG Assessment/Plan: repeat EKG serial cardiac enzymes Code(s): R94.31 - ABNORMAL ELECTROCARDIOGRAM [ECG] [EKG] (6) CHF (congestive heart failure) Assessment/Plan: continue LAsix as previously does not tolerate YUKI inhibitors due to Kidney failure there is no orthostatic hypotension will continue monitoring for orthostatism Code(s): I50.9 - HEART FAILURE, UNSPECIFIED Qualifiers: Heart failure type: combined systolic and diastolic Heart failure chronicity: chronic Qualified Code(s): I50.42 - 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 Assessment/Plan: hold oral hypoglicemics for now and treat with short acting insulin AC and HS Code(s): E11.21 - TYPE 2 DIABETES MELLITUS WITH DIABETIC NEPHROPATHY (8) CKD (chronic kidney disease) stage 3, GFR 30-59 ml/min Assessment/Plan: triggered by YUKI inhibitors and possibly related to Diabetes kidney function recovered after the discontinuation of Entresto and is significantly better since the VATS procedure Code(s): N18.3 - CHRONIC KIDNEY DISEASE, STAGE 3 (MODERATE)
[2018-03-28] MEDS: CLOPIDOGREL BISULFATE 75 MG TABLET (FP) PO SCH (16:12)
[2018-03-28] MEDS: ASPIRIN 81 MG CHEWABLE TABLETS PO SCH (16:12)
[2018-03-28] MEDS: INSULIN SLIDING SCALE (NOVOLOG) 1 VIAL SQ SCH ×2 (17:45→21:50)
[2018-03-28] MEDS: ISOSORBIDE DINITRATE 20 MG TABLET (FP) PO SCH (18:08)
[2018-03-28] MEDS: ATORVASTATIN CA 80 MG TABLET (FP) PO SCH (21:44)
[2018-03-29] MEDS: INSULIN SLIDING SCALE (NOVOLOG) 1 VIAL SQ SCH ×4 (06:24→21:09)
[2018-03-29] MEDS: CLOPIDOGREL BISULFATE 75 MG TABLET (FP) PO SCH (09:57)
[2018-03-29] MEDS: ASPIRIN 81 MG CHEWABLE TABLETS PO SCH (09:57)
[2018-03-29] MEDS: ISOSORBIDE DINITRATE 20 MG TABLET (FP) PO SCH ×3 (09:57→17:25)
[2018-03-29] MEDS ORDERED: FUROSEMIDE 40 MG TABLET (FP) PO SCH (10:00)
--- NOTE | 2018-03-29 10:49 | PN ---
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 (short form) - Note 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: Chief Complaint: Events noted, notes reviewed, recurrent syncopal episodes, denies any chest pain or dyspnea, sinus rhythm is noted with non sustained wide complex rhythm History of Present Illness: Seen and examined on telemetry. Full consult dictated Echocardiography dated 10/17 revealed normal LV size and low normal LVEF 50% improved from 2017 Data retrieval from loop recorder, [employer] service contacted, revealed no events till 2:15 AM this morning, prior episodes of paroxysmal atrial fibrillation most recent episode was early March lasting 18 minutes, rate controlled Loan Closer: Dr. Beau Chacon [facility] Medications: Current Medications Aspirin (Asa -) 81 mg PO DAILY [facility] Last Admin: 03/29/18 09:57 Dose: 81 mg Atorvastatin Calcium (Lipitor -) 80 mg PO HS [facility] Last Admin: 03/28/18 21:44 Dose: 80 mg Clopidogrel Bisulfate (Plavix -) 75 mg PO DAILY [facility] Last Admin: 03/29/18 09:57 Dose: 75 mg Furosemide (Lasix -) 80 mg PO Q2D@1000 [facility] Last Admin: 03/29/18 09:57 Dose: 80 mg Furosemide (Lasix -) 40 mg PO Q2D@1000 [facility] Insulin Aspart (Novolog Vial Sliding Scale -) 1 vial SQ ACHS [facility]; Protocol Last Admin: 03/29/18 06:24 Dose: Not Given Isosorbide Dinitrate (Isordil -) 20 mg PO TIDISORDIL [facility] Last Admin: 03/29/18 09:57 Dose: 20 mg Review of Systems - Review of Systems Constitutional: denies: Chills or Fever Cardiovascular: as noted above Gastrointestinal: denies: Nausea, Vomiting, Diarrhea, Constipation or Abdominal Pain Genitourinary: No symptoms reported Neurological: No symptoms reported Vital Signs: Last Vital Signs Temp Pulse Resp BP Pulse Ox 97.6 F 74 18 146/80 94 L 03/29/18 06:00 03/29/18 06:00 03/29/18 06:00 03/29/18 06:00 03/28/18 21:00 Intake & Output 03/26/18 03/27/18 03/28/18 03/29/18 23:59 23:59 23:59 23:59 Intake Total 200 10 Output Total 300 500 Balance -100 -490 Weight 152 lb 6.4 oz 150 lb 6.4 oz Neck: Supple Negative JVD No Bruit Respiratory: Diminished Breath Sounds at the Bases Cardiovascular: S1 S2 Regularly Rate and Rhythm Gastrointestinal: Soft Benign Normal Bowel Sounds Ext: Negative Edema Labs: CBC, BMP 03/28/18 03:47 03/28/18 03:06 Hepatic Panel Total Bilirubin 0.7 mg/dL (0.2-1) 03/28/18 03:06 AST 16 U/L (15-37) 03/28/18 03:06 ALT 22 U/L (13-61) 03/28/18 03:06 Alkaline Phosphatase 113 U/L (45-117) 03/28/18 03:06 Albumin 1.7 g/dl (3.4-5.0) L 03/28/18 03:06 Troponin, BNP 03/28/18 19:50 Troponin I 0.02 Assessment/Plan ASSESSMENT: 1. Recurrent syncope/syncopal episodes neurocardiogenic syncope vs. vasovagal syncope vs. tachy-arrhythmia/galindo-arrhythmia (no evidence thus far in reference to arrhythmia) 2. CAD post NM post multi-vessel PCI/stent angina pectoris 3. Systolic/diastolic LV dysfunction with class 0 NYHA classification LV failure 4. Post [employer] loop recorder implant 5. Paroxysmal atrial fibrillation with [id number] score of 5 on no A/C, short runs 6. HTN 7. DM 8. Hypercholesterolemia 9. History of VATS pneumo-lysis, pleural biopsy and partial decortication for chronic loculated non-draining right pleural effusion 10. CKD 11. Anemia PLAN: 1. Continue ASA and Plavix with caution, long tem use of Plavix to be re- evaluated, and considering the above noted paroxysmal atrial fibrillation with [id number] score of 5 mcc A/C to be considered 2. Continue Lipitor 3. Recommend resumption of Carvedilol provided no documented bradycardia (full device interrogation pending) 4. Recommend avoidance of Nitrates specially with recurrent syncopal episodes 5. Continue Lasix with caution and close monitoring of renal function, but dose needs to be reduced related to the above noted presentation and pre-renal azotemia 6. As outlined in prior notes ideally should be on on YUKI-I or ARBS but to be deferred related to drug induced to hyperkalemia 7. Monitor H/H and transfuse PRBC if indicated, maintain Hg equal or > 8.0 8. Full device interrogation Above was reviewed in detail with the patient and his Kevin Smith M.D.
--- NOTE | 2018-03-29 11:53 | PN ---
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, Physician Chief Complaint: Patient seen, at bedsite asymptomatic History of Present Illness: 73 yo male with PMH of CAD , Afib , S/P VATS procedure for right lung chronic loculated pleural effusion was admitted for 2 episodes of syncope. He was admitted for observation and monitoring of his HR. There were no incidents since admission. During the EMS evaluation the MS was 35. We are not sure if this was recorded by auscultation or pulse rate. He has a loop recorder in situ planted since November 2016. - Current Medication List Current Medications: Active Medications Alprazolam (Xanax -) 0.25 mg PO Q8H PRN PRN Reason: ANXIETY Aspirin (Asa -) 81 mg PO DAILY [facility] Last Admin: 03/29/18 09:57 Dose: 81 mg Atorvastatin Calcium (Lipitor -) 80 mg PO HS [facility] Last Admin: 03/28/18 21:44 Dose: 80 mg Clopidogrel Bisulfate (Plavix -) 75 mg PO DAILY [facility] Last Admin: 03/29/18 09:57 Dose: 75 mg Furosemide (Lasix -) 80 mg PO Q2D@1000 [facility] Last Admin: 03/29/18 09:57 Dose: 80 mg Furosemide (Lasix -) 40 mg PO Q2D@1000 [facility] Insulin Aspart (Novolog Vial Sliding Scale -) 1 vial SQ ACHS [facility]; Protocol Last Admin: 03/29/18 06:24 Dose: Not Given Isosorbide Dinitrate (Isordil -) 20 mg PO TIDISORDIL [facility] Last Admin: 03/29/18 09:57 Dose: 20 mg - Objective Vital Signs: Vital Signs Temperature 97.6 F 03/29/18 06:00 Pulse Rate 74 03/29/18 06:00 Respiratory Rate 18 03/29/18 06:00 Blood Pressure 146/80 03/29/18 06:00 O2 Sat by Pulse Oximetry (%) 94 L 03/28/18 21:00 Constitutional: Yes: No Distress, Anxious Eyes: Yes: Conjunctiva Clear, EOM Intact HENT: Yes: Atraumatic, Normocephalic Neck: Yes: Supple, Trachea Midline Cardiovascular: Yes: Regular Rate and Rhythm, S1, S2 Respiratory: Yes: Regular, CTA Bilaterally, SOB on Exertion. No: Rales, Rhonchi Gastrointestinal: Yes: Soft. No: Abdomen, Obese, Hepatomegaly, Splenomegaly ...Rectal Exam: Yes: Deferred Extremities: No: Calf Tenderness Edema: No Peripheral Pulses WNL: Yes Wound/Incision: Yes: Other (presacral ulver stage 3) Labs: CBC, BMP 03/28/18 03:47 03/28/18 03:06 INR, PTT INR 1.19 (0.83-1.09) H 03/28/18 02:48 - ....Imaging EKG: Other (NSR, reversal of the T wave inverson in leads V5, V6) Problem List - Problems (1) Syncope and collapse Assessment/Plan: vaso vagal vs symptomatic bradycardia? vs fast A fib or tachyarhythmia with low peripheral pulse rate requires telemetry monitoring and possible recorder interrogation continue to monitor for orthostatism d/c Neurontin Code(s): R55 - SYNCOPE AND COLLAPSE (2) Bradycardia with 31-40 beats per minute Assessment/Plan: this information was obtained from the and apparently recorded during the EMS activation, since the bradycardia could be the manifestation of a vaso vagal reaction I will continue the Coreg the patient has a loop recorder implanted that will be interrogated Code(s): R00.1 - BRADYCARDIA, UNSPECIFIED (3) Atrial fibrillation Assessment/Plan: I will administer Coreg and admit the patient to telemetry, loop recorder interrogation?, Holter? Code(s): I48.91 - UNSPECIFIED ATRIAL FIBRILLATION (4) Status post placement of implantable loop recorder Assessment/Plan: possible need for interrogation Code(s): Z95.818 - PRESENCE OF OTHER CARDIAC IMPLANTS AND GRAFTS (5) T wave inversion in EKG Assessment/Plan: repeat EKG demonstrated normalization of the T wave serial cardiac enzymes Code(s): R94.31 - ABNORMAL ELECTROCARDIOGRAM [ECG] [EKG] (6) CHF (congestive heart failure) Assessment/Plan: continue LAsix as previously did not tolerate YUKI inhibitors in the past and developed AKD there is no orthostatic hypotension since admission will continue monitoring for orthostatism Code(s): I50.9 - HEART FAILURE, UNSPECIFIED Qualifiers: Heart failure type: combined systolic and diastolic Heart failure chronicity: chronic Qualified Code(s): I50.42 - 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 Assessment/Plan: hold oral hypoglicemics for now and treat with short acting insulin AC and HS Code(s): E11.21 - TYPE 2 DIABETES MELLITUS WITH DIABETIC NEPHROPATHY (8) CKD (chronic kidney disease) stage 3, GFR 30-59 ml/min Assessment/Plan: triggered by YUKI inhibitors and possibly related to Diabetes kidney function recovered after the discontinuation of Entresto and is significantly better since the VATS procedure Code(s): N18.3 - CHRONIC KIDNEY DISEASE, STAGE 3 (MODERATE) (9) Pressure ulcer of sacral region, stage 3 Assessment/Plan: application of Collagenase daily keep the area clean Code(s): L89.153 - PRESSURE ULCER OF [place], STAGE 3
[2018-03-29] MEDS ORDERED: ALPRAZolam 0.25 MG TABLET PO PRN (12:16)
--- NOTE | 2018-03-29 12:33 | CONS ---
DATE OF CONSULTATION: 03/29/2018 CONSULTATION REQUESTED BY: Siobhan Mondragon MD CHIEF COMPLAINT: Syncopal episode, cardiovascular evaluation. Patient known to our service from a recent hospitalization. Patient of Dr. Beau Chacon, Cardiology, at [facility]. A 73-year-old male with known history of coronary artery disease, status post myocardial infarction, status post multivessel percutaneous coronary intervention and stenting, angina pectoris, systolic/diastolic left ventricular dysfunction with history of congestive heart failure and chronic right pleural effusions, hypertensive cardiovascular disease, diabetes mellitus, hypercholesterolemia, chronic kidney disease who was recently hospitalized with persistent effusion requiring intervention and subsequent discharge. Patient presented to [facility] after sustaining a syncopal episode. According to the patient, he ambulated to the bathroom where, initially, he had a syncopal episode and, subsequently while in the bathroom, had a repeat episode. The patient did not report any injuries. Patient has had an implantable loop recorder inserted by his primary hide trimmer, [employer] device. The patient did not have any preceding symptomatology, i.e. dizziness or lightheadedness. The patient continues to report persistence of dyspnea with mild to moderate physical exertion. The patient denies any orthopnea or paroxysmal nocturnal dyspnea. The patient reports intermittent bilateral lower extremity edema that worsens in the latter part of the day. The patient denies any chest discomfort. The patient denies any palpitations. The patient reports fatigue and tiredness. PAST MEDICAL HISTORY: Coronary artery disease, post myocardial infarction, post percutaneous coronary intervention and stenting, angina pectoris, systolic/diastolic left ventricular dysfunction with chronic Class 1 [place] Heart Association Classification left ventricular failure, hypertensive cardiovascular disease, diabetes mellitus, hypercholesterolemia, recurrent syncope, post implantable loop recorder, gastroesophageal reflux disease, chronic kidney disease, nephrolithiasis, degenerative joint disease. SOCIAL HISTORY: Prior history of tobacco abuse. FAMILY HISTORY: Positive coronary artery disease. ALLERGIES: PIOGLITAZONE. MEDICAL THERAPY AT HOME: Lasix 80 mg alternating with 40 mg once every other day; allopurinol 100 mg once a day; Ecotrin 81 mg once a day; Lipitor 80 mg once a day; Coreg 25 mg twice a day; Colace 300 mg once a day; Neurontin 600 mg twice a day; Isordil 20 mg twice a day; Plavix 75 mg once a day. REVIEW OF SYSTEMS: Head/Neck: Patient denies headache, photophobia, blurring of vision. Respiratory: No cough or sputum production. Cardiovascular: As noted above. Gastrointestinal: Patient denies nausea, vomiting, diarrhea, abdominal discomfort. Genitourinary: No symptoms reported. Musculoskeletal: History of degenerative joint disease. PHYSICAL EXAMINATION: Vital Signs: Blood pressure is 146/80 mmHg, pulse rate is 74 beats/min. Head/Neck: Pupils equally reactive to light and accommodation. External ocular muscles are intact. Anicteric sclerae. Negative JVD. No bruit appreciated. Chest: Diminished breath sounds at the bases bilaterally. Cardiovascular: S1, S2, regular. Grade 1/6 systolic ejection murmur. No clicks or gallops. Abdomen: Soft, benign. Normoactive bowel sounds. Extremities: Negative edema. Decreased distal pulses. There is no calf tenderness. Electrocardiogram reveals sinus rhythm, left axis deviation, poor R-wave progression with nonspecific T-wave abnormality. Chest x-ray report was noted. CT scan of the head report was noted. Carotid Doppler report was noted; moderate atherosclerotic disease bilaterally. CBC revealed a white cell count 7.3, hemoglobin 8.5, platelet count 269. INR 1.19. Basic metabolic profile revealed sodium 141, potassium 4.1, BUN of 30, creatinine 1.1, glucose 93. TSH is 3.61. [employer] device remote monitoring service was contacted and, up to 2:15 this a.m., there was no evidence of any bradyarrhythmia or tachyarrhythmia. There was evidence of paroxysmal atrial fibrillation, which was noted in the beginning of March; longest episode lasting 18 seconds, rate controlled. ASSESSMENT: 1. Recurrent syncope/syncopal episodes, neurocardiogenic syncope versus vasovagal syncope versus tachyarrhythmia/bradyarrhythmia. No evidence thus far in reference to arrhythmia, post device interrogation. 2. Coronary artery disease, post myocardial infarction, post multivessel percutaneous coronary intervention and stenting, angina pectoris. 3. Systolic/diastolic left ventricular dysfunction with Class 0 [place] Heart Association Classification left ventricular failure. 4. Post [employer] loop recorder implantation. 5. Paroxysmal atrial fibrillation with CHADS2-VASc Score of 5, on no anticoagulation therapy, short runs. 6. Hypertensive cardiovascular disease. 7. Diabetes mellitus. 8. Hypercholesterolemia. 9. History of video-assisted thoracoscopy, pneumolysis, pleural biopsy, partial decortication of chronic, loculated, nondraining right pleural effusion. 10. Chronic kidney disease. 11. Anemia. RECOMMENDATIONS: 1. Continuation of aspirin and Plavix with caution; long-term use of Plavix to be reevaluated and, considering the above-noted paroxysmal atrial fibrillation with CHADS2-VASc Score of 5, long-term anticoagulation to be considered unless it is absolutely contraindicated. 2. Continuation of Lipitor. 3. Recommend resumption of carvedilol therapy, provided no documented bradyarrhythmia. Full device interrogation is pending; to be performed tomorrow. 4. Recommend avoidance of nitrates, especially with recurrent syncopal episodes. 5. Continue Lasix with caution and close monitoring of renal function, but dose needs to be reduced related to the above-noted presentation with syncope and evidence of prerenal azotemia. 6. As outlined in prior notes, ideally, should be on YUKI inhibitor or angiotensin receptor blockers, but to be deferred related to drug-induced hyperkalemia. 7. Monitor hemoglobin and transfuse as needed, maintaining hemoglobin greater than 8.0. 8. Full device interrogation, as noted above. The above was reviewed in detail with the patient and his , who was at the bedside. Thank you for the kind referral. JADEN VICENTE M.D. [place] [id number]
--- NOTE | 2018-03-29 14:02 | EKG ---
Test Reason : Blood Pressure : / mmHG Vent. Rate : 069 BPM Atrial Rate : 069 BPM P-R Int : 176 ms QRS Dur : 122 ms QT Int : 432 ms P-R-T Axes : 039 -48 095 degrees QTc Int : 462 ms NORMAL SINUS RHYTHM LEFT AXIS DEVIATION RSR' OR QR PATTERN IN V1 SUGGESTS RIGHT VENTRICULAR CONDUCTION DELAY SEPTAL INFARCT (CITED ON OR BEFORE 06-AUG-2017) ABNORMAL ECG WHEN COMPARED WITH ECG OF 28-MAR-2018 03:34, PREMATURE ATRIAL COMPLEXES ARE NO LONGER PRESENT RSR' PATTERN IN V1 IS NOW PRESENT Confirmed by MD Majo, Anjum ([id number]) on 03/29/2018 2:01:33 PM Referred By: Confirmed By:Anjum Kasper MD
[2018-03-29] MEDS ORDERED: PT OWN MED DRAWER 7, Y5N ONE (14:35)
[2018-03-29] MEDS: COLLAGENASE CLOSTRIDIUM HIST. 30 GRAMS TUBE TP SCH (14:41)
[2018-03-29] MEDS ORDERED: INSULIN (NOVOLOG) ASPART 100 UNITS/ML 10ML VIAL ONE (20:27)
[2018-03-29] MEDS: ATORVASTATIN CA 80 MG TABLET (FP) PO SCH (21:09)
[2018-03-30] MEDS: INSULIN SLIDING SCALE (NOVOLOG) 1 VIAL SQ SCH ×2 (06:24→11:50)
[2018-03-30 07:53] LABS: BASO % 0.9 % (0-2.0); EOS % 3.1 % (0-4.5); HEMATOCRIT 27.1 % (35.4-49); HEMOGLOBIN 8.7 GM/dL (11.7-16.9); LYMPH % 31.1 % (8-40); MCHC 32.2 g/dl (32.0-35.9); MEAN CELL VOLUME 87.1 fl (80-96); MEAN PLT VOLUME 7.4 fl (7.5-11.1); MONO % 9.6 % (3.8-10.2); NEUT % 55.3 % (42.8-82.8); PLATELET COUNT 214 K/MM3 (134-434); RBC 3.11 M/mm3 (4.00-5.60); RDW 18.3 % (11.9-15.9); WHITE BLOOD COUNT 5.6 K/mm3 (4.0-10.0)
[2018-03-30 08:28] LABS: ALBUMIN 1.7 g/dl (3.4-5.0); ALK PHOS 105 U/L (45-117); ANION GAP 5 MMOL/L (8-16); BILIRUBIN,TOTAL 0.7 mg/dL (0.2-1); BLOOD UREA NITROGEN 25 mg/dL (7-18); CALCIUM 7.9 mg/dL (8.5-10.1); CHLORIDE 103 mmol/L (98-107); CO2 32 mmol/L (21-32); CREATININE 0.8 mg/dL (0.55-1.3); GLUCOSE,RANDOM 123 mg/dL (74-106); POTASSIUM 3.7 mmol/L (3.5-5.1); SGOT/AST 15 U/L (15-37); SGPT/ALT 19 U/L (13-61); SODIUM 140 mmol/L (136-145); TOT PROT 6.4 g/dl (6.4-8.2)
[2018-03-30] MEDS: ISOSORBIDE DINITRATE 20 MG TABLET (FP) PO SCH (09:10)
[2018-03-30] MEDS: CLOPIDOGREL BISULFATE 75 MG TABLET (FP) PO SCH (09:10)
[2018-03-30] MEDS: ASPIRIN 81 MG CHEWABLE TABLETS PO SCH (09:10)
[2018-03-30] MEDS ORDERED: FUROSEMIDE 40 MG TABLET (FP) PO SCH (10:00)
--- NOTE | 2018-03-30 10:14 | PN ---
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, Physician History of Present Illness: ILR interrogation confirms episodes of PAF, 8 episodes of bradycardia w/o high ventricular rates. No further syncope since admission. - Current Medication List Current Medications: Active Medications Alprazolam (Xanax -) 0.25 mg PO Q8H PRN PRN Reason: ANXIETY Last Admin: 03/29/18 12:24 Dose: 0.25 mg Aspirin (Asa -) 81 mg PO DAILY [facility] Last Admin: 03/30/18 09:10 Dose: 81 mg Atorvastatin Calcium (Lipitor -) 80 mg PO HS [facility] Last Admin: 03/29/18 21:09 Dose: 80 mg Clopidogrel Bisulfate (Plavix -) 75 mg PO DAILY [facility] Last Admin: 03/30/18 09:10 Dose: 75 mg Collagenase (Santyl -) 1 applic TP DAILY [facility]; Protocol Last Admin: 03/29/18 14:41 Dose: 1 applic Furosemide (Lasix -) 40 mg PO DAILY [facility] Last Admin: 03/30/18 09:10 Dose: 40 mg Insulin Aspart (Novolog Vial Sliding Scale -) 1 vial SQ ACHS [facility]; Protocol Last Admin: 03/30/18 06:24 Dose: Not Given Isosorbide Dinitrate (Isordil -) 20 mg PO TIDISORDIL [facility] Last Admin: 03/30/18 09:10 Dose: 20 mg - Objective Vital Signs: Vital Signs Temperature 97.9 F 03/30/18 09:17 Pulse Rate 75 03/30/18 09:17 Respiratory Rate 20 03/30/18 09:17 Blood Pressure 157/75 03/30/18 09:17 O2 Sat by Pulse Oximetry (%) 100 03/29/18 20:51 Constitutional: Yes: No Distress, Calm, Thin Neck: Yes: Supple Cardiovascular: Yes: Regular Rate and Rhythm Respiratory: Yes: Regular, CTA Bilaterally Gastrointestinal: Yes: Normal Bowel Sounds, Soft Edema: No Labs: CBC, BMP 03/30/18 07:30 03/30/18 07:30 INR, PTT INR 1.19 (0.83-1.09) H 03/28/18 02:48 - ....Imaging EKG: Report Reviewed (Tele: SR occ PVC no pauses) Problem List - Problems (1) Atrial fibrillation Code(s): I48.91 - UNSPECIFIED ATRIAL FIBRILLATION Qualifiers: Atrial fibrillation type: paroxysmal Qualified Code(s): I48.0 - Paroxysmal atrial fibrillation (2) Status post placement of implantable loop recorder Code(s): Z95.818 - PRESENCE OF OTHER CARDIAC IMPLANTS AND GRAFTS (3) Syncope and collapse Code(s): R55 - SYNCOPE AND COLLAPSE (4) Diastolic dysfunction without heart failure Code(s): I51.89 - OTHER ILL-DEFINED HEART DISEASES (5) S/P coronary artery stent placement Code(s): Z95.5 - PRESENCE OF CORONARY ANGIOPLASTY IMPLANT AND GRAFT (6) CAD (coronary artery disease) Code(s): I25.10 - ATHSCL HEART DISEASE OF [place] CORONARY ARTERY W/O ANG PCTRS Qualifiers: Coronary Disease-Associated Artery/Lesion type: [place] artery [place] vs. transplanted heart: [place] heart Associated angina: without angina Qualified Code(s): I25.10 - Atherosclerotic heart disease of [place] coronary artery without angina pectoris (7) HTN (hypertension) Code(s): I10 - ESSENTIAL (PRIMARY) HYPERTENSION Qualifiers: Hypertension type: essential hypertension Qualified Code(s): I10 - Essential (primary) hypertension (8) Hyperlipidemia Code(s): E78.5 - HYPERLIPIDEMIA, UNSPECIFIED Qualifiers: Hyperlipidemia type: pure hypercholesterolemia Qualified Code(s): E78.00 - Pure hypercholesterolemia, unspecified; E78.0 - Pure hypercholesterolemia (9) Insulin dependent diabetes mellitus Code(s): E11.9 - TYPE 2 DIABETES MELLITUS WITHOUT COMPLICATIONS; Z79.4 - PENITENTIARY (CURRENT) USE OF INSULIN Assessment/Plan Echocardiography dated 10/17 revealed normal LV size and low normal LVEF 50% improved from 2017 Data retrieval from loop recorder, [employer]'s service contacted, revealed no events till 2:15 AM this morning, prior episodes of paroxysmal atrial fibrillation most recent episode was early March lasting 18 minutes, rate controlled 1. Neurocardiogenic syncope vs. vasovagal/situational syncope while on toilet 2. CAD post [place] post multi-vessel PCI/stent angina pectoris 3. Systolic/diastolic LV dysfunction with class 0 NYHA classification LV failure 4. Post [employer] loop recorder implant 5. Paroxysmal atrial fibrillation with [id number] score of 5 on no A/C, short runs 6. HTN 7. DM 8. Hypercholesterolemia 9. History of VATS pneumo-lysis, pleural biopsy and partial decortication for chronic loculated non-draining right pleural effusion 10. CKD 11. Anemia PLAN: 1. Continue ASA 81 qd and d/c Plavix 75 qd with start Eliquis 5 bid considering the above noted paroxysmal atrial fibrillation with [id number] score of 5 2. Continue Lipitor 80 qhs 3. Decrease carvedilol 6.25 bid (previously on carvedilol 25 bid per office notes) given documented bradycardia on ILR 4. Recommend avoidance of Nitrates specially with recurrent syncopal episodes 5. Decreased Lasix 40 qd due to the above noted presentation and pre-renal azotemia 6. As outlined in prior notes ideally should be on on YUKI-I or ARBS but to be deferred related to drug induced to hyperkalemia 7. Monitor H/H and transfuse PRBC if indicated, maintain Hg equal or > 8.0 8. Reviewed prior records, plan of care d/w Dr. Chacon with whom he will f/u with , may d/c from [facility] Consultant: Dr. Beau Chacon - [facility]
[2018-03-30] MEDS ORDERED: PT OWN MED DRAWER 7, Y5N ONE (10:15)
[2018-03-30 11:49] VITALS: BMI 24.2
[2018-03-30] MEDS ORDERED: CARVEDILOL 6.25 MG TABLET (FP) PO ONE (12:15)
[2018-03-30] MEDS: COLLAGENASE CLOSTRIDIUM HIST. 30 GRAMS TUBE TP SCH (14:12)
--- NOTE | 2018-03-30 15:11 | DS ---
Physical Examination Vital Signs: Vital Signs Temperature 97.9 F 03/30/18 09:17 Pulse Rate 75 03/30/18 09:17 Respiratory Rate 20 03/30/18 09:17 Blood Pressure 157/75 03/30/18 09:17 O2 Sat by Pulse Oximetry (%) 100 03/29/18 20:51 Constitutional: Yes: No Distress, Anxious Eyes: Yes: Conjunctiva Clear, EOM Intact HENT: Yes: Atraumatic, Normocephalic Neck: Yes: Supple, Trachea Midline Cardiovascular: Yes: Regular Rate and Rhythm, S1, S2 Respiratory: Yes: Regular, CTA Bilaterally Gastrointestinal: Yes: Normal Bowel Sounds, Soft, Abdomen, Obese. No: Hepatomegaly, Splenomegaly Extremities: No: Calf Tenderness Edema: No Peripheral Pulses WNL: Yes Neurological: Yes: Alert, Oriented Psychiatric: Yes: Alert, Oriented Labs: CBC, BMP 03/30/18 07:30 03/30/18 07:30 Discharge Summary Reason For Visit: SYNCOPE AND COLLAPSE Current Active Problems Atrial fibrillation (Acute) Bradycardia with 31-40 beats per minute (Acute) CKD (chronic kidney disease) stage 3, GFR 30-59 ml/min (Acute) Pressure ulcer of sacral region, stage 3 (Acute) Status post placement of implantable loop recorder (Acute) Syncope and collapse (Acute) T wave inversion in EKG (Acute) Type 2 diabetes mellitus with nephropathy (Acute) Procedures: Principal: Telemetry monitoring Hospital Course: 73 yo male admitted for 2 succcessive syncopal episode. He was monitored during his stay and his loop recorder was interrogated with findings of bradycardia alternating with episodes of a fib. His medications were adjusted: Neurontin, Plavix, Isordil, were stopped, Lasix was decreased to 40 mg daily. Condition: Stable - Instructions Disposition: HOME - Home Medications Comprehensive Discharge Medication List: Ambulatory Orders Allopurinol [Zyloprim -] 100 mg PO DAILY 02/03/18 Aspirin [Ecotrin] 81 mg PO DAILY 02/03/18 Atorvastatin Ca [Lipitor] 80 mg PO HS 02/03/18 Docusate Sodium [Dulcolax Stool Softener] 300 mg PO DAILY 02/03/18 Apixaban [Eliquis -] 5 mg PO BID 30 Days #60 tablet 03/30/18 Aspirin [ASA -] 81 mg PO DAILY tab.chew 03/30/18 Atorvastatin Ca [Lipitor] 80 mg PO HS tablet 03/30/18 Carvedilol [Coreg -] 6.25 mg PO BID #60 tablet 03/30/18 Collagenase Clostridium Hist. [Santyl -] 1 applic TP DAILY tube 03/30/18 Furosemide [Lasix -] 40 mg PO DAILY tablet 03/30/18
[2018-03-30 15:15] VITALS: BP 158/76; PULSE 64; TEMP 98.2
[2018-03-30] MEDS ORDERED: DOCUSATE SODIUM 100 MG CAPSULE (FP) PO SCH (15:15)
[2018-03-30] MEDS ORDERED: ASPIRIN COATED 81 MG TABLET.EC PO SCH (15:15)
[2018-03-30] MEDS ORDERED: CARVEDILOL 6.25 MG TABLET (FP) PO SCH (22:00)
[2018-03-30] MEDS ORDERED: ATORVASTATIN CA 80 MG TABLET (FP) PO SCH (22:00)
[2018-03-30] MEDS ORDERED: APIXABAN 5 MG TABLET PO SCH (22:00)
[2018-03-31] MEDS ORDERED: ALLOPURINOL 100 MG TABLET (FP) PO SCH (10:00)
== END 2018-03-30 16:52 | disposition home or self-care (01) | DRG 308 ==
LOC: JER 02:27 → JERBED 05:35 → UNDOADMOB 05:41 → OBSVTOIN 15:35 → J4S 17:25
PROVIDERS: ADMIT Internal Medicine; ATTEND Internal Medicine
DX: I48.0 Paroxysmal atrial fibrillation (principal); L89.153 Pressure ulcer of sacral region, stage 3; I13.0 Hypertensive heart and chronic kidney disease with heart failure and stage 1 through stage 4 chronic kidney disease, or unspecified chronic kidney disease; I50.42 Chronic combined systolic (congestive) and diastolic (congestive) heart failure; E23.0 Hypopituitarism; R55 Syncope and collapse; E11.22 Type 2 diabetes mellitus with diabetic chronic kidney disease; N18.3 Chronic kidney disease, stage 3 (moderate); I25.10 Atherosclerotic heart disease of native coronary artery without angina pectoris; I25.2 Old myocardial infarction; E78.5 Hyperlipidemia, unspecified; D64.9 Anemia, unspecified; E11.42 Type 2 diabetes mellitus with diabetic polyneuropathy; M10.9 Gout, unspecified; E04.9 Nontoxic goiter, unspecified; K21.9 Gastro-esophageal reflux disease without esophagitis; K58.9 Irritable bowel syndrome, unspecified; R00.1 Bradycardia, unspecified; Z95.818 Presence of other cardiac implants and grafts; R94.31 Abnormal electrocardiogram [ECG] [EKG]; Z87.442 Personal history of urinary calculi; Z79.4 Long term (current) use of insulin
CPT/HCPCS: 36415; 70450-TC; 71045-TC-FY; 80053; 82550; 82962; 83735; 84100; 84443; 84484; 85025; 85610; 93005; 93010; 93880-TC; 97110-GP; 97140-GP; 99284-25; G0378

== ENCOUNTER 2018-12-23 07:41 | Day surgery (SDC) | payer OTHER, BC ==
[2018-12-23] MEDS ORDERED: FUROSEMIDE 40 MG/4 ML INJECTABLE VIAL IVPUSH ONE (14:00)
== END 2018-12-23 17:42 | disposition home or self-care (01) ==
LOC: FM/S 07:41 → FBLOOD 07:41 → FM/S 07:53 → FBLOOD 17:42
PROVIDERS: ATTEND Internal Medicine
PROC: 30233N1 Transfusion of Nonautologous Red Blood Cells into Peripheral Vein, Percutaneous Approach (ICD-10-PCS; principal; 2018-12-23)
PROC: 3E033GC Introduction of Other Therapeutic Substance into Peripheral Vein, Percutaneous Approach (ICD-10-PCS; 2018-12-23)
DX: D64.9 Anemia, unspecified (principal)
CPT/HCPCS: 36430

== ENCOUNTER 2019-05-07 00:56 | Emergency (ER) | payer OTHER, BC ==
[2019-05-07 01:31] VITALS: TEMP 97.4; BMI 22.6
[2019-05-07] MEDS ORDERED: TRANEXAMIC ACID 1000 MG/10 ML VIAL IVPUSH ONE (02:01)
[2019-05-07] MEDS ORDERED: TRANEXAMIC ACID 1000 MG/10 ML VIAL ONE (02:05)
--- NOTE | 2019-05-07 02:16 | PDOC ---
History of Present Illness - General Chief Complaint: Nasal Bleeding Stated Complaint: NOSE BLEED Time Seen by Provider: 05/07/19 01:52 History Source: Patient Exam Limitations: No Limitations - History of Present Illness Initial Comments: 05/07/19 02:18 Patient is 74M with history of DM, CKD, CHF, s/p VATS, on eliquis here today with nosebleed. Patient reports that he had a procedure done by ENT Dr Waters yesterday to evaluate his hearing which provoked a nosebleed. It was stopped with cauterization. Patient reports the nose bleed returned after he blew his nose. Denies chest pain. Patient states his shortness of breath is at his baseline. Denies fevers, chills, nausea, vomiting. Denies ear pain, eye pain. Past History - Past Medical History Allergies/Adverse Reactions: Allergies Allergy/AdvReac Type Severity Reaction Status Date / Time pioglitazone HCl [From Actos] Allergy Severe CHF Verified 05/07/19 01:29 Home Medications: Ambulatory Orders Allopurinol [Zyloprim -] 100 mg PO DAILY 02/03/18 Aspirin [Ecotrin] 81 mg PO DAILY 02/03/18 Atorvastatin Ca [Lipitor] 80 mg PO HS 02/03/18 Docusate Sodium [Dulcolax Stool Softener] 300 mg PO DAILY 02/03/18 Apixaban [Eliquis -] 5 mg PO BID 30 Days #60 tablet 03/30/18 Aspirin [ASA -] 81 mg PO DAILY tab.chew 03/30/18 Atorvastatin Ca [Lipitor] 80 mg PO HS tablet 03/30/18 Carvedilol [Coreg -] 6.25 mg PO BID #60 tablet 03/30/18 Collagenase Clostridium Hist. [Santyl -] 1 applic TP DAILY tube 03/30/18 Furosemide [Lasix -] 40 mg PO DAILY tablet 03/30/18 Isosorbide Dinitrate [Isordil] 20 mg PO TIDISORDIL tablet 03/30/18 Anemia: No Asthma: No Cancer: Yes (skin) Cardiac Disorders: Yes (cad- cardiac cath, 6 stents total) CVA: No COPD: Yes CHF: Yes DVT: No Dementia: No Diabetes: Yes Dialysis: No (CKD) GI Disorders: No Disorders: No HTN: Yes Hypercholesterolemia: Yes Liver Disease: No Seizures: No Thyroid Disease: No - Surgical History Abdominal Surgery: Yes (HERNIA repair) Appendectomy: No Cardiac Surgery: Yes (STENTS 95/96, 07/2016) Cholecystectomy: No Lung Surgery: Yes (bronchoscopy 03/17, right chest pleural catheter) Neurologic Surgery: No Orthopedic Surgery: No - Immunization History Td Vaccination: Yes Immunization Up to Date: Yes - Psycho Social/Smoking Cessation Hx Smoking Status: No Smoking History: Never smoked Have you smoked in the past 12 months: No Number of Cigarettes Smoked Daily: 0 If you are a former smoker, when did you quit?: 35yrs ago Information on smoking cessation initiated: No 'Breaking Loose' booklet given: 08/15/15 Hx Alcohol Use: No Drug/Substance Use Hx: No Substance Use Type: None Hx Substance Use Treatment: No Review of Systems - Review of Systems Able to Perform ROS?: Yes Comments:: 05/07/19 02:20 GENERAL/CONSTITUTIONAL: No fever or chills. No weakness. HEAD, EYES, EARS, NOSE AND THROAT: No change in vision. No ear pain or discharge. No sore throat. CARDIOVASCULAR: No chest pain or shortness of breath RESPIRATORY: No cough, wheezing, or hemoptysis. GASTROINTESTINAL: No nausea, vomiting, diarrhea or constipation. SKIN: No rash NEUROLOGIC: No headache, vertigo, loss of consciousness, or change in strength/ sensation. ENDOCRINE: No increased thirst. No abnormal weight change *Physical Exam - Vital Signs Last Vital Signs Temp Pulse Resp BP Pulse Ox 97.4 F L 82 20 127/51 L 96 05/07/19 01:29 05/07/19 01:29 05/07/19 01:29 05/07/19 01:29 05/07/19 01:29 - Physical Exam 05/07/19 02:21 GENERAL: Awake, alert, and fully oriented, in no acute distress HEAD: No signs of trauma, normocephalic, atraumatic EYES: PERRLA, EOMI, sclera anicteric, conjunctiva clear ENT: Auricles normal inspection, hearing grossly normal, nares patent, oropharynx clear without exudates. Moist mucosa. Small bleed on medial aspect of distal nare NECK: Normal ROM, supple, no lymphadenopathy, JVD, or masses LUNGS: No distress, speaks full sentences, clear to auscultation bilaterally HEART: Regular rate and rhythm, normal S1 and S2, no murmurs, rubs or gallops, peripheral pulses normal and equal bilaterally. ABDOMEN: Soft, nontender, normoactive bowel sounds. No guarding, no rebound. No masses EXTREMITIES: Normal inspection, Normal range of motion, no edema. No clubbing or cyanosis. NEUROLOGICAL: Cranial nerves II through XII grossly intact. Normal speech, normal gait, no focal sensorimotor deficits SKIN: Warm, Dry, normal turgor, no rashes or lesions noted. Medical Decision Making - Medical Decision Making 05/07/19 02:22 Patient is 74M with history of CHF, CKD, s/p vats, dm here today with nosebleed. Vitals normal and stable. Bleed mostly controlled with pressure, patient not tolerating firm pressure. TXA pledget given. 05/07/19 02:39 Bleeding controlled. Will dc home with Dr Waters following up. Discharge - Discharge Information Problems reviewed: Yes Clinical Impression/Diagnosis: Nosebleed Condition: Good Disposition: HOME - Admission No - Follow up/Referral Referrals: Siobhan Mondragon MD [Primary Care Provider] - Beau Waters MD [Staff Physician] - - Patient Discharge Instructions Patient Printed Discharge Instructions: DI for Nosebleed Additional Instructions: Please follow up with your ENT doctor in the next few days. Please return if your nosebleed returns and is not controlled with direct pressure. Please avoid blowing your nose or putting anything in your nose for the next few days. - Post Discharge Activity
--- NOTE | 2019-05-07 02:42 | PDOC ---
Attending Attestation - Resident Resident Name: Rey Easley - ED Attending Attestation I have performed the following: I have examined & evaluated the patient, The case was reviewed & discussed with the resident, I agree w/resident's findings & plan, Exceptions are as noted - HPI HPI: 05/07/19 04:34 See resident HPI - Physicial Exam PE: 05/07/19 04:34 Agree with exam as documented by resident - Medical Decision Making 05/07/19 04:35 Frontal epistaxis resolved with local TXA DC f/u ent
[2019-05-07 02:52] VITALS: BP 125/55; PULSE 76
== END 2019-05-07 02:45 | disposition home or self-care (01) ==
LOC: JER 00:56
PROC: 3E033GC Introduction of Other Therapeutic Substance into Peripheral Vein, Percutaneous Approach (ICD-10-PCS; principal; 2019-05-07)
DX: R04.0 Epistaxis (principal); E11.22 Type 2 diabetes mellitus with diabetic chronic kidney disease; Z79.01 Long term (current) use of anticoagulants; E78.00 Pure hypercholesterolemia, unspecified; I10 Essential (primary) hypertension; I13.0 Hypertensive heart and chronic kidney disease with heart failure and stage 1 through stage 4 chronic kidney disease, or unspecified chronic kidney disease; Z87.891 Personal history of nicotine dependence; Z88.8 Allergy status to other drugs, medicaments and biological substances
CPT/HCPCS: 96374; 99282-25

== ENCOUNTER 2019-05-13 12:50 | Inpatient (IN) | payer OTHER, BC ==
--- NOTE | 2019-05-13 13:43 | PDOC ---
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 Per the patient, his " kidney number" is elevated. He admits to dysuria but is not sure how long that has been going on for. Denies fever, chills, abd pain, hematuria, nausea, vomiting, CP, SOB. Past History - Past Medical History Allergies/Adverse Reactions: Allergies Allergy/AdvReac Type Severity Reaction Status Date / Time pioglitazone HCl [From Actos] Allergy Severe CHF Verified 05/13/19 13:01 Home Medications: Ambulatory Orders Allopurinol [Zyloprim -] 100 mg PO DAILY 02/03/18 Aspirin [Ecotrin] 81 mg PO DAILY 02/03/18 Atorvastatin Ca [Lipitor] 80 mg PO HS 02/03/18 Docusate Sodium [Dulcolax Stool Softener] 300 mg PO DAILY 02/03/18 Apixaban [Eliquis -] 5 mg PO BID 30 Days #60 tablet 03/30/18 Aspirin [ASA -] 81 mg PO DAILY tab.chew 03/30/18 Atorvastatin Ca [Lipitor] 80 mg PO HS tablet 03/30/18 Carvedilol [Coreg -] 6.25 mg PO BID #60 tablet 03/30/18 Collagenase Clostridium Hist. [Santyl -] 1 applic TP DAILY tube 03/30/18 Furosemide [Lasix -] 40 mg PO DAILY tablet 03/30/18 Isosorbide Dinitrate [Isordil] 20 mg PO TIDISORDIL tablet 03/30/18 Anemia: No Asthma: No Cancer: Yes (skin) Cardiac Disorders: Yes (cad- cardiac cath, 6 stents total) CVA: No COPD: Yes CHF: Yes DVT: No Dementia: No Diabetes: Yes Dialysis: No (CKD) GI Disorders: No Disorders: No HTN: Yes Hypercholesterolemia: Yes Liver Disease: No Seizures: No Thyroid Disease: No - Surgical History Abdominal Surgery: Yes (HERNIA repair) Appendectomy: No Cardiac Surgery: Yes (STENTS 95/96, 07/2016) Cholecystectomy: No Lung Surgery: Yes (bronchoscopy 03/17, right chest pleural catheter) Neurologic Surgery: No Orthopedic Surgery: No - Immunization History Td Vaccination: Yes Immunization Up to Date: Yes - Psycho Social/Smoking Cessation Hx Smoking Status: No Smoking History: Never smoked Have you smoked in the past 12 months: No Number of Cigarettes Smoked Daily: 0 If you are a former smoker, when did you quit?: 35yrs ago 'Breaking Loose' booklet given: 08/15/15 Hx Alcohol Use: No Drug/Substance Use Hx: No Substance Use Type: None Hx Substance Use Treatment: No Review of Systems - Review of Systems Able to Perform ROS?: Yes Comments:: 05/13/19 13:50 GENERAL/CONSTITUTIONAL: No fever or chills. No weakness. HEAD, EYES, EARS, NOSE AND THROAT: No change in vision. No ear pain or discharge. No sore throat. CARDIOVASCULAR: No chest pain, palpitations, or lightheadedness. RESPIRATORY: No cough, wheezing, shortness of breath, or hemoptysis. GASTROINTESTINAL: No abdominal pain, nausea, vomiting, diarrhea, or constipation. GENITOURINARY: + for dysuria. No frequency, hematuria, or change in urination. MUSCULOSKELETAL: No joint or muscle swelling or pain. No neck or back pain. SKIN: No rash or lesions. NEUROLOGIC: No headache, numbness, tingling, focal weakness, loss of consciousness, or change in strength/sensation. Is the patient limited Frisian proficient: No *Physical Exam - Vital Signs Last Vital Signs Temp Pulse Resp BP Pulse Ox 97.6 F 83 18 114/48 L 98 05/13/19 12:57 05/13/19 12:57 05/13/19 12:57 05/13/19 12:57 05/13/19 12:57 - Physical Exam 05/13/19 13:50 GENERAL: Well developed, well nourished. Awake and alert. No acute distress. HEENT: Normocephalic, atraumatic. Hearing grossly normal. Moist mucous membranes. PERRLA, EOMI. No conjunctival pallor. Sclera are non-icteric. NECK: Supple. Full ROM. No JVD. CARDIOVASCULAR: Regular rate and rhythm. No murmurs, rubs, or gallops. PULMONARY: No evidence of respiratory distress. Lungs clear to auscultation bilaterally. No wheezing, rales or rhonchi. ABDOMINAL: Soft. Non-tender. Non-distended. No rebound or guarding. GENITOURINARY: No CVA tenderness bilaterally. MUSCULOSKELETAL: Normal range of motion at all joints. No bony deformities or tenderness. EXTREMITIES: No cyanosis. No clubbing. No edema. No calf tenderness or swelling. SKIN: Warm and dry. Normal capillary refill. No rashes. No jaundice. NEUROLOGICAL: Alert, awake, appropriate. Cranial nerves 2-12 grossly intact. Normal speech. Gait is normal without ataxia. PSYCHIATRIC: Cooperative. Good eye contact. Appropriate mood and affect. ED Treatment Course - LABORATORY CBC & Chemistry Diagram: 05/13/19 14:42 05/13/19 14:42 Medical Decision Making - Medical Decision Making 05/13/19 13:51 74M with a PMH of CKD, HTN, DM who presents to the ER for abnormal labs. WIll obtain CBC, CMP, UA, UCx and d/w Dr. Flores for disposition. 05/13/19 15:48 BUN/CR elevated with SPIKE of 3.1 f 2.6 and BUN of 139.8. Will hydrate. D/w nurse of Dr. Flores. Will admit. 05/13/19 15:54 Dr. Mondragon paged for admission. Discharge - Discharge Information Problems reviewed: Yes Clinical Impression/Diagnosis: SPIKE (acute kidney injury) Condition: Guarded - Admission Yes - Follow up/Referral - Patient Discharge Instructions - Post Discharge Activity
--- NOTE | 2019-05-13 13:47 | PDOC ---
Attending Attestation - Resident Resident Name: JevonAbdoul steinberg - HPI HPI: 05/14/19 16:53 Pt presents to the ED after sent in by Dr. Flores for increasing BUN/Cr. Patient is asymptomatic, but BUN and Cr were greatly increased from previous. Denies nausea, vomiting, confusion or passing out. Denies symptoms of fluid overload. As per Dr. Flores, patient recently completed a course of steroids that made him extremely hyperglycemic. The hyperglycemia has improved, but Dr. Flores believes that the patient is extremely dehydrated. Does complain of some burning with urination that started today. Recent negative UA and cultures as per Dr. Flores.; 05/14/19 16:57 - Physicial Exam PE: 05/14/19 16:57 Agree with resident exam. patient is alert and oriented and in no acute distress. Lungs are clear. Heart regular rate and rhythm. Abdomen soft, non tender and non distended. - Medical Decision Making 05/14/19 16:58 Pt presents to the Ed after sent in for acute on chronic renal failure. Will admit to medicine for gentle hydration.
[2019-05-13 14:57] LABS: BASO % 0.5 % (0-2.0); EOS % 2.1 % (0-4.5); HEMATOCRIT 28.7 % (35.4-49); HEMOGLOBIN 9.2 GM/dL (11.7-16.9); LYMPH % 20.6 % (8-40); MCH 31.1 pg (25.7-33.7); MEAN CELL VOLUME 97.2 fl (80-96); MEAN PLT VOLUME 8.1 fl (7.5-11.1); MONO % 6.5 % (3.8-10.2); NEUT % 70.3 % (42.8-82.8); PLATELET COUNT 170 K/MM3 (134-434); RBC 2.95 M/mm3 (4.00-5.60); RDW 15.7 % (11.9-15.9); WHITE BLOOD COUNT 6.1 K/mm3 (4.0-10.0)
[2019-05-13 15:06] LABS: EPI CELLS 0.9 /HPF (0-5/HPF); HYALINE CASTS 1 /lpf (0-8); URINE APPEARANCE CLEAR; URINE BACTERIA 12.4 /hpf (NEGATIVE); URINE BILIRUBIN NEGATIVE (NEGATIVE); URINE COLOR YELLOW; URINE GLUCOSE (UA) NEGATIVE (NEGATIVE); URINE KETONE NEGATIVE (NEGATIVE); URINE LEUK ESTERASE TRACE (NEGATIVE); URINE NITRITE NEGATIVE (NEGATIVE); URINE PROTEIN 1+ (NEGATIVE); URINE RBC 8 /hpf (0-4); URINE UROBILINOGEN 0.2 mg/dL (0.2-1.0); URINE WBC 4 /hpf (0-5)
[2019-05-13 15:41] LABS: ALBUMIN 2.6 g/dl (3.4-5.0); BILIRUBIN,TOTAL 0.3 mg/dL (0.2-1); CALCIUM 8.3 mg/dL (8.5-10.1); CREATININE 3.1 mg/dL (0.55-1.3); POTASSIUM 4.9 mmol/L (3.5-5.1); TOT PROT 6.2 g/dl (6.4-8.2)
[2019-05-13 15:43] LABS: BLOOD UREA NITROGEN 139.8 mg/dL (7-18)
[2019-05-13] MEDS ORDERED: LACTATED RINGERS SOLUTION 1000 ML INFUS.BAG IV ONE (16:01)
[2019-05-13 18:06] LABS: N-TERMINAL BNP 2612.4 pg/ml (5-450)
[2019-05-13] MEDS ORDERED: SODIUM CHLORIDE 0.45% 1,000 ML IV SCH (20:45)
--- NOTE | 2019-05-13 20:58 | HP ---
Admitting History and Physical - Admission Chief Complaint: abnormal blood tests results History of Present Illness: 74 yo male with PMH of CAD, systolo-diastolic CHF, and loop recorder in situ , was admitted for abnormally elevated BUN and creatinine. The patient has a chronic right pleural effusion and is S/P pleural catheter for approximately 1 year, removed in spring. He is Oxygen dependent. His renal function deteriorated progressively during the past few months, and dropped acutely during the past week. He did not have any fever, diarrhea, or vomiting and his appetite and fluid intake has been at baseline. He feels weak. In addition there significant weight loss, anemia and poor appetite. Patient required blood transfusions during lat[place] past 6 months. There is o recent colonoscopy or endoscopy. He is on chronic anticoagulation with Eliquis and ASA History Source: Patient, Family Member - Past Medical History PHONE COUNSELOR: Yes: Peripheral Neuropathy Cardiovascular: Yes: CAD (prior anterolateral PA 03/1995 w/ PCI of LAD & ramus, PCI of LAD 05/1996 (with 100% occluded ramus and patent RCA), rotoblator & PCI w / Xience stent prox LAD & prox/mid Cfx 07/30/16), CHF, Hyperlipdemia, PA ( anterolateral PA 1994), Other (CHF) Pulmonary: Yes: Pneumonia (03/2016), Other (Chronic right pleural effusion ) Gastrointestinal: Yes: GERD Renal/: Yes: Renal Inusuff, BPH, Renal Calculi Heme/Onc: Yes: Anemia Psych: Yes: Anxiety, Depression Musculoskeletal: Yes: Osteoarthritis Rheumatology: Yes: Gout Endocrine: Yes: Diabetes Mellitus (with peripheral neuropathy), Other ( Hypogonadism, nodular goiter) - Past Surgical History Past Surgical History: Yes: Cataract Removal (bilateral), Hernia Repair ( umbillical) - Smoking History Smoking history: Never smoked Have you smoked in the past 12 months: No Aproximately how many cigarettes per day: 0 If you are a former smoker, when did you quit?: 35yrs ago - Alcohol/Substance Use Hx Alcohol Use: No History of Substance Use: reports: None - Social History ADL: Independent History of Recent Travel: No Home Medications - Allergies Allergies/Adverse Reactions: Allergies Allergy/AdvReac Type Severity Reaction Status Date / Time pioglitazone HCl [From Actos] Allergy Severe CHF Verified 05/13/19 13:01 - Home Medications Home Medications: Ambulatory Orders Allopurinol [Zyloprim -] 100 mg PO DAILY 02/03/18 Aspirin [Ecotrin] 81 mg PO DAILY 02/03/18 Docusate Sodium [Dulcolax Stool Softener] 300 mg PO DAILY 02/03/18 Apixaban [Eliquis -] 5 mg PO BID 30 Days #60 tablet 03/30/18 Aspirin [ASA -] 81 mg PO DAILY tab.chew 03/30/18 Atorvastatin Ca [Lipitor] 80 mg PO HS tablet 03/30/18 Carvedilol [Coreg -] 6.25 mg PO BID #60 tablet 03/30/18 Collagenase Clostridium Hist. [Santyl -] 1 applic TP DAILY tube 03/30/18 Furosemide [Lasix -] 40 mg PO DAILY tablet 03/30/18 Isosorbide Dinitrate [Isordil] 20 mg PO TIDISORDIL tablet 03/30/18 Review of Systems - Review of Systems Constitutional: reports: Weakness Eyes: reports: No Symptoms Cardiovascular: reports: Edema, Shortness of Breath Respiratory: reports: SOB on Exertion. denies: Wheezing Gastrointestinal: reports: No Symptoms Genitourinary: reports: Burning, Frequency Physical Examination Vital Signs: Vital Signs Temperature 97.3 F L 05/13/19 19:40 Pulse Rate 91 H 05/13/19 19:40 Respiratory Rate 18 05/13/19 19:40 Blood Pressure 169/61 05/13/19 19:40 O2 Sat by Pulse Oximetry (%) 96 05/13/19 19:40 Constitutional: Yes: No Distress, Calm Eyes: Yes: Conjunctiva Clear, EOM Intact HENT: Yes: Atraumatic, Normocephalic Neck: Yes: Supple, Trachea Midline Cardiovascular: Yes: Regular Rate and Rhythm, S1, S2 Respiratory: Yes: Regular, CTA Bilaterally, SOB. No: Orthopnea, Rhonchi, Wheezes Extremities: No: Calf Tenderness Peripheral Pulses WNL: Yes Labs: CBC, BMP 05/13/19 14:42 05/13/19 14:42 Imaging - Results Chest X-ray: Other (reviewed by me. No plural effusn, no infltrate., no mass) Problem List - Problems (1) [id number] kidney injury Assessment/Plan: hold Entresto hold Lasix repeat CMP renal and pelvis US before and after void Code(s): N17.9 - ACUTE KIDNEY FAILURE, UNSPECIFIED; N18.9 - CHRONIC KIDNEY DISEASE, UNSPECIFIED (2) Atrial fibrillation Assessment/Plan: Coreg BId Code(s): I48.91 - UNSPECIFIED ATRIAL FIBRILLATION Qualifiers: Atrial fibrillation type: paroxysmal Qualified Code(s): I48.0 - Paroxysmal atrial fibrillation (3) Microcytic anemia Assessment/Plan: repeat CMP, GI evaluation Iron sulfate 325 mg bid Code(s): D50.9 - IRON DEFICIENCY ANEMIA, UNSPECIFIED (4) Diabetes Assessment/Plan: [facility]'s regular insulin coverage HBA1C Code(s): E11.9 - TYPE 2 DIABETES MELLITUS WITHOUT COMPLICATIONS
[2019-05-13 21:15] VITALS: BMI 21.9
[2019-05-13] MEDS ORDERED: PT OWN MED DRAWER 7, Y5N ONE (21:25)
[2019-05-13] MEDS: ATORVASTATIN CA 80 MG TABLET (FP) PO SCH (21:29)
[2019-05-13] MEDS: CARVEDILOL 25 MG TABLET (FP) PO SCH (21:29)
[2019-05-13] MEDS: APIXABAN 5 MG TABLET PO SCH (21:29)
[2019-05-13] MEDS: INSULIN SLIDING SCALE (NOVOLOG) 1 VIAL SQ SCH (21:30)
[2019-05-13] MEDS: hydrALAZINE HCL 10 MG TABLET PO SCH (22:46)
[2019-05-14] MEDS ORDERED: PT OWN MED DRAWER 7, Y5N ONE ×3 (04:41→20:34)
[2019-05-14] MEDS: hydrALAZINE HCL 10 MG TABLET PO SCH ×3 (05:28→21:12)
[2019-05-14] MEDS: INSULIN SLIDING SCALE (NOVOLOG) 1 VIAL SQ SCH ×4 (06:09→21:12)
[2019-05-14 08:27] LABS: BASO % 0.7 % (0-2.0); EOS % 2.6 % (0-4.5); HEMATOCRIT 22.9 % (35.4-49); HEMOGLOBIN 7.6 GM/dL (11.7-16.9); LYMPH % 25.6 % (8-40); MCH 31.2 pg (25.7-33.7); MCHC 33.3 g/dl (32.0-35.9); MEAN CELL VOLUME 93.5 fl (80-96); MEAN PLT VOLUME 8.7 fl (7.5-11.1); MONO % 8.5 % (3.8-10.2); NEUT % 62.6 % (42.8-82.8); PLATELET COUNT 158 K/MM3 (134-434); RBC 2.44 M/mm3 (4.00-5.60); RDW 15.3 % (11.9-15.9); WHITE BLOOD COUNT 4.3 K/mm3 (4.0-10.0)
[2019-05-14 08:55] LABS: ALBUMIN 2.2 g/dl (3.4-5.0); BILIRUBIN,TOTAL 0.3 mg/dL (0.2-1); CALCIUM 7.6 mg/dL (8.5-10.1); CREATININE 2.8 mg/dL (0.55-1.3); POTASSIUM 4.9 mmol/L (3.5-5.1); TOT PROT 5.2 g/dl (6.4-8.2)
[2019-05-14 09:03] LABS: BLOOD UREA NITROGEN 133.2 mg/dL (7-18)
[2019-05-14] MEDS: FERROUS SO4 325 MG TABLET (FP) PO SCH (09:52)
[2019-05-14] MEDS: CARVEDILOL 25 MG TABLET (FP) PO SCH ×2 (09:52→21:12)
[2019-05-14] MEDS: APIXABAN 5 MG TABLET PO SCH ×2 (09:52→21:12)
[2019-05-14] MEDS ORDERED: ASPIRIN 81 MG CHEWABLE TABLETS PO SCH (10:00)
--- NOTE | 2019-05-14 10:25 | CON.CARD ---
Consult Consult Specialty:: Cardiology Referred by:: Siobhan Mondragon MD Reason for Consultation:: CAD s/p multivessel PCI, ischemic cardiomyopathy - History of Present Illness Chief Complaint: Acute on CKD History of Present Illness: 74M former smoker with h/o CAD s/p multivessel stents, DM, HTN, systolic dysfunction with pulm HTN, chronic loculated right pleural effusion s/p pleur-x which stopped draining despite TPA and subsequently removed followed by right VATS, pneumolysis, pleural biopsy and partial decortication, CKD, h/o hernia repair admitted for acute on CKD, weakness, significant weight loss, anemia and poor appetite, receiving pRBC transfusion. There is no recent colonoscopy or endoscopy. He is on chronic anticoagulation with Eliquis and ASA, planned for UGI series Friday. He denies chest pain, dyspnea worse than baseline, palpitations, near or true syncope, orthopnea, PND or worsening LE edema, last saw Dr. Chacon several months ago. 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: Peripheral Neuropathy Cardio/Vascular: Yes: CAD (prior anterolateral ME 03/1995 w/ PCI of LAD & ramus , PCI of LAD 05/1996 (with 100% occluded ramus and patent RCA), rotoblator & PCI w/ Xience stent prox LAD & prox/mid Cfx 07/30/16), CHF, Hyperlipdemia, [place] ( anterolateral ME 1994), Other (CHF) Pulmonary: Yes: Pneumonia (03/2016), Other (Chronic right pleural effusion ) Gastrointestinal: Yes: GERD Renal/: Yes: Renal Inusuff, BPH, Renal Calculi Psych: Yes: Anxiety, Depression Musculoskeletal: Yes: Osteoarthritis Rheumatology: Yes: Gout Endocrine: Yes: Diabetes Mellitus (with peripheral neuropathy), Other ( Hypogonadism, nodular goiter) - Past Surgical History Past Surgical History: Yes: Cataract Removal (bilateral), Hernia Repair ( umbillical) - Alcohol/Substance Use Hx Alcohol Use: No History of Substance Use: reports: None - Smoking History Smoking history: Never smoked Have you smoked in the past 12 months: No Aproximately how many cigarettes per day: 0 If you are a former smoker, when did you quit?: 35yrs ago - Social History ADL: Independent History of Recent Travel: No Home Medications - Allergies Allergies/Adverse Reactions: Allergies Allergy/AdvReac Type Severity Reaction Status Date / Time pioglitazone HCl [From Actos] Allergy Severe CHF Verified 05/13/19 13:01 - Home Medications Home Medications: Ambulatory Orders Allopurinol [Zyloprim -] 100 mg PO DAILY 02/03/18 Aspirin [Ecotrin] 81 mg PO DAILY 02/03/18 Docusate Sodium [Dulcolax Stool Softener] 300 mg PO DAILY 02/03/18 Apixaban [Eliquis -] 5 mg PO BID 30 Days #60 tablet 03/30/18 Aspirin [ASA -] 81 mg PO DAILY tab.chew 03/30/18 Atorvastatin Ca [Lipitor] 80 mg PO HS tablet 03/30/18 Carvedilol [Coreg -] 6.25 mg PO BID #60 tablet 03/30/18 Collagenase Clostridium Hist. [Santyl -] 1 applic TP DAILY tube 03/30/18 Furosemide [Lasix -] 40 mg PO DAILY tablet 03/30/18 Isosorbide Dinitrate [Isordil] 20 mg PO TIDISORDIL tablet 03/30/18 Review of Systems - Review of Systems Constitutional: reports: Lethargy, Weakness Vital Signs: Vital Signs Temperature 98.4 F 05/14/19 06:55 Pulse Rate 71 05/14/19 06:55 Respiratory Rate 20 05/14/19 06:55 Blood Pressure 106/49 L 05/14/19 06:55 O2 Sat by Pulse Oximetry (%) 96 05/13/19 19:40 Constitutional: Yes: No Distress, Calm Neck: Yes: Supple Respiratory: Yes: Regular, CTA Bilaterally Gastrointestinal: Yes: Soft, Hypoactive Bowel Sounds Cardiovascular: Yes: Regular Rate and Rhythm JVD: No Carotid Bruit: No Heart Sounds: Yes: S1, S2 Edema: No - Other Data Labs, Other Data: CBC, BMP 05/14/19 07:50 05/14/19 07:50 Troponin, BNP 05/13/19 14:42 Troponin I 0.03 B-Natriuretic Peptide 2612.4 H Troponin, BNP 05/13/19 14:42 Troponin I 0.03 B-Natriuretic Peptide 2612.4 H NSR @ 90 IVCD Ejection Fraction %: LVEF > or = 40 % Imaging - Results Chest X-ray: Report Reviewed (Stable right chronic changes) Problem List - Problems (1) [id number] kidney injury Code(s): N17.9 - ACUTE KIDNEY FAILURE, UNSPECIFIED; N18.9 - CHRONIC KIDNEY DISEASE, UNSPECIFIED Qualifiers: Chronic kidney disease stage: stage 4 (severe) (2) Atrial fibrillation Code(s): I48.91 - UNSPECIFIED ATRIAL FIBRILLATION Qualifiers: Atrial fibrillation type: paroxysmal Qualified Code(s): I48.0 - Paroxysmal atrial fibrillation (3) Chronic left systolic heart failure Code(s): I50.22 - CHRONIC SYSTOLIC (CONGESTIVE) HEART FAILURE (4) Diastolic dysfunction without heart failure Code(s): I51.89 - OTHER ILL-DEFINED HEART DISEASES (5) Pulmonary hypertension Code(s): I27.2 - OTHER SECONDARY PULMONARY HYPERTENSION * DO NOT USE * (6) S/P coronary artery stent placement Code(s): Z95.5 - PRESENCE OF CORONARY ANGIOPLASTY IMPLANT AND GRAFT (7) S/P thoracostomy tube placement Code(s): Z93.8 - OTHER ARTIFICIAL OPENING STATUS (8) Status post placement of implantable loop recorder Code(s): Z95.818 - PRESENCE OF OTHER CARDIAC IMPLANTS AND GRAFTS (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 transplanted heart: [place] heart Associated angina: without angina Qualified Code(s): I25.10 - Atherosclerotic heart disease of [place] coronary artery without angina pectoris (11) HTN (hypertension) Code(s): I10 - ESSENTIAL (PRIMARY) HYPERTENSION Qualifiers: Hypertension type: essential hypertension Qualified Code(s): I10 - Essential (primary) hypertension (12) Hyperlipidemia Code(s): E78.5 - HYPERLIPIDEMIA, UNSPECIFIED Qualifiers: Hyperlipidemia type: pure hypercholesterolemia Qualified Code(s): E78.00 - Pure hypercholesterolemia, unspecified; E78.0 - Pure hypercholesterolemia Assessment/Plan 12/22/2018 Echo: Normal LV size with mild cLVH mild decreased LV fxn LVEF 46%, prob diastolic dysfunction, normal RV size and fxn, severe LAE, tr MR, mild-mod TR RVSP 64 mmHg severe pulm HTN, small posterior pericardial effusion Echocardiography dated 10/17 revealed normal LV size and low normal LVEF 50% improved from 2017 09/19/2015 Lexiscan Myoview: Medium sized mod-severe infarct of apical, apical lateral, apical anterior, mid anterolateral and mid-basal anterior moura 03/19/2019 Biotronik ILR: No PAF or sig pause/bradycardia 1. Acute on CKD 2. Anemia of CKD 3. H/o neurocardiogenic syncope vs. vasovagal/situational syncope while on toilet 4. CAD post ME post multi-vessel PCI/stent angina pectoris 5. Systolic/diastolic LV dysfunction with class 0 NYHA classification LV failure 6. Post Biotronik loop recorder implant 7. Paroxysmal atrial fibrillation with [id number] score of 5 on no A/C, short runs 8. HTN 9. Type 2 DM 10. Hypercholesterolemia 10. History of VATS pneumo-lysis, pleural biopsy and partial decortication for chronic loculated non-draining right pleural effusion PLAN: 1. Agree with holding Lasix and Entresto pending renal recovery, judicious IV hydration, check renal US 2. D/c ASA 81 qd as CAD stable and continue Eliquis 5 bid with monitor Hgb due to elevated [id number] score of 5 3. Continue Lipitor 80 qhs, carvedilol 25 bid and hydralazine 10 tid as hemodynamics tolerate 4. Monitor H/H and transfuse PRBC if indicated, maintain Hg equal or > 8.0, declined endoscopy, f/u abd/pelvic CT, plan for UGI series Friday 5. Reviewed prior records of Dr. Chacon with whom he will f/u with upon d/c 6. 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 Beau Chacon - [facility]
--- NOTE | 2019-05-14 10:42 | CON.GI ---
Consult Consult Specialty:: GI Referred by:: Dr. Mondragon Reason for Consultation:: Anemia - History of Present Illness Chief Complaint: Sent by internal revenue agent secondary to worsening renal function History of Present Illness: 74M sent to [facility] by internal revenue agent due to worsening renal function. Asked to evaluate anemia. In review of [facility], has been anemic from 2018. MCV has been elevated. He describes diminished appetite and 20 pound weight loss over the last 2 years. He denies nausea, vomiting, dysphagia, odynophagia, early satiety, rectal bleeding, melena, change in bowel habits, change in stool caliber. He has chronic constipation for which he uses stool softeners. He says that he simply loses his appetite when eating. He believes that he had a colonoscopy in the past (maybe 5 years ago) by Dr. Fredrick Queasda that was unremarkable. There is no family history of colorectal cancer or other GI malignancy. 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 Cardio/Vascular: Yes: CAD (prior anterolateral [place] 03/1995 w/ PCI of LAD & ramus , PCI of LAD 05/1996 (with 100% occluded ramus and patent RCA), rotoblator & PCI w/ Xience stent prox LAD & prox/mid Cfx 07/30/16), CHF, Hyperlipdemia, [place] ( anterolateral [place] 1994), Other (CHF) Pulmonary: Yes: Pneumonia (03/2016), Other (Chronic right pleural effusion ) Gastrointestinal: Yes: GERD Renal/: Yes: Renal Inusuff, BPH, Renal Calculi Psych: Yes: Anxiety, Depression Musculoskeletal: Yes: Osteoarthritis Rheumatology: Yes: Gout Endocrine: Yes: Diabetes Mellitus (with peripheral neuropathy), Other ( Hypogonadism, nodular goiter) - Past Surgical History Past Surgical History: Yes: Cataract Removal (bilateral), Hernia Repair ( umbillical), Stent - Alcohol/Substance Use Hx Alcohol Use: No History of Substance Use: reports: None - Smoking History Smoking history: Never smoked Have you smoked in the past 12 months: No Aproximately how many cigarettes per day: 0 If you are a former smoker, when did you quit?: 35yrs ago - Social History ADL: Independent History of Recent Travel: No Home Medications - Allergies Allergies/Adverse Reactions: Allergies Allergy/AdvReac Type Severity Reaction Status Date / Time pioglitazone HCl [From Actos] Allergy Severe CHF Verified 05/13/19 13:01 - Home Medications Home Medications: Ambulatory Orders Allopurinol [Zyloprim -] 100 mg PO DAILY 02/03/18 Aspirin [Ecotrin] 81 mg PO DAILY 02/03/18 Docusate Sodium [Dulcolax Stool Softener] 300 mg PO DAILY 02/03/18 Apixaban [Eliquis -] 5 mg PO BID 30 Days #60 tablet 03/30/18 Aspirin [ASA -] 81 mg PO DAILY tab.chew 03/30/18 Atorvastatin Ca [Lipitor] 80 mg PO HS tablet 03/30/18 Carvedilol [Coreg -] 6.25 mg PO BID #60 tablet 03/30/18 Collagenase Clostridium Hist. [Santyl -] 1 applic TP DAILY tube 03/30/18 Furosemide [Lasix -] 40 mg PO DAILY tablet 03/30/18 Isosorbide Dinitrate [Isordil] 20 mg PO TIDISORDIL tablet 03/30/18 Family Medical History Other Family History: Mother: : Fall at home. Father: : [place]. 2 sisters : Healthy. No children. No family history of colorectal cancer Review of Systems - Review of Systems Constitutional: denies: Chills Cardiovascular: denies: Chest Pain Respiratory: denies: SOB Gastrointestinal: reports: Constipation. denies: Diarrhea, Dysphagia, Indigestion, Melena, Nausea, Rectal Bleeding, Vomiting, Vomiting Blood Physical Exam-GI Vital Signs: Vital Signs Temperature 98.4 F 05/14/19 06:55 Pulse Rate 71 05/14/19 06:55 Respiratory Rate 20 05/14/19 06:55 Blood Pressure 106/49 L 05/14/19 06:55 O2 Sat by Pulse Oximetry (%) 96 05/13/19 19:40 Constitutional: Yes: Calm Eyes: No: Sclera Icterus Cardiovascular: Yes: Regular Rate and Rhythm Respiratory: Yes: CTA Bilaterally Gastrointestinal Inspection: Yes: Scars (periumbuilical) ...Auscultate: Yes: Normoactive Bowel Sounds ...Palpate: Yes: Soft. No: Hepatomegaly, Splenomegaly, Tenderness ...Percussion: No: Tympanitic ...Rectal Exam: Yes: Other (No external lesions, no masses, light brown stool in rectal vault, guaiac negative) Edema: No (No LE edema) Neurological: Yes: Alert, Oriented Labs: CBC, BMP 05/14/19 07:50 05/14/19 07:50 Assessment/Plan Anemia: Macrocytic Guaiac negative on exam Suspect multifactorial etiology Discussed upper endoscopy / colonoscopy to evaluate weight loss / diminished appetite and exclude sources of GI blood loss such as but bleeding blood vessels , polyps, PUD or tumors of GI tract such as colon cancer. We discussed potential risks of the procedure like but not limited to bleeding, perforation requiring surgery to repair, infection, sedation medication effects all of which could be potentially life threatening. He has declined the procedures.Would need cardiology clearance and A/C held prior to procedures. If considered high risk and he is amenable to procedures, could consider further evaluation for endoscopi testing at a tertiary care center. Agreeable to UGIS, for friday. Consider hematology evaluation given mactrocytosis
--- NOTE | 2019-05-14 13:18 | EKG ---
Test Reason : Blood Pressure : / mmHG Vent. Rate : 090 BPM Atrial Rate : 090 BPM P-R Int : 186 ms QRS Dur : 126 ms QT Int : 388 ms P-R-T Axes : 040 -45 095 degrees QTc Int : 474 ms NORMAL SINUS RHYTHM LEFT AXIS DEVIATION NON-SPECIFIC INTRA-VENTRICULAR CONDUCTION BLOCK CANNOT RULE OUT ANTEROSEPTAL INFARCT (CITED ON OR BEFORE 06-AUG-2017) ABNORMAL ECG Confirmed by SHANDRA ZUNIGA MD ([id number]) on 05/14/2019 1:18:01 PM Referred By: Confirmed By:SHANDRA ZUNIGA MD
--- NOTE | 2019-05-14 14:11 | PN ---
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, Physician Chief Complaint: feels better, receiving blood - Current Medication List Current Medications: Active Medications Apixaban (Eliquis -) 5 mg PO BID [facility] Last Admin: 05/14/19 09:52 Dose: 5 mg Aspirin (Asa -) 81 mg PO DAILY [facility] Last Admin: 05/14/19 09:52 Dose: 81 mg Atorvastatin Calcium (Lipitor -) 80 mg PO HS [facility] Last Admin: 05/13/19 21:29 Dose: 80 mg Carvedilol (Coreg -) 25 mg PO BID [facility] Last Admin: 05/14/19 09:52 Dose: 25 mg Ferrous Sulfate (Feosol -) 325 mg PO DAILY [facility] Last Admin: 05/14/19 09:52 Dose: 325 mg Hydralazine HCl (Apresoline -) 10 mg PO TID [facility] Last Admin: 05/14/19 05:28 Dose: 10 mg Sodium Chloride (1/2 Normal Saline) 1,000 mls @ 75 mls/hr IV ASDIR [facility] Last Admin: 05/13/19 21:37 Dose: 75 mls/hr Insulin Aspart (Novolog Vial Sliding Scale -) 1 vial SQ [facility]; Protocol Last Admin: 05/14/19 12:42 Dose: Not Given - Objective Vital Signs: Vital Signs Temperature 98 F 05/14/19 09:57 Pulse Rate 77 05/14/19 09:57 Respiratory Rate 20 05/14/19 10:00 Blood Pressure 121/58 L 05/14/19 09:57 O2 Sat by Pulse Oximetry (%) 96 05/14/19 10:00 Constitutional: Yes: No Distress, Calm Eyes: Yes: Conjunctiva Clear, EOM Intact HENT: Yes: Atraumatic, Normocephalic Neck: Yes: Supple, Trachea Midline Cardiovascular: Yes: Regular Rate and Rhythm, S1, S2 Respiratory: Yes: Regular, CTA Bilaterally Gastrointestinal: Yes: Normal Bowel Sounds, Soft Breast(s): Yes: WNL Edema: No Peripheral Pulses WNL: Yes Neurological: Yes: Alert, Oriented Labs: CBC, BMP 05/14/19 07:50 05/14/19 07:50 Problem List - Problems (1) Wfqak-ks-[id number] kidney injury Assessment/Plan: hold Entresto hold Lasix repeat CMP renal and pelvis US before and after void Code(s): N17.9 - ACUTE KIDNEY FAILURE, UNSPECIFIED; N18.9 - CHRONIC KIDNEY DISEASE, UNSPECIFIED (2) Atrial fibrillation Assessment/Plan: Coreg BId Code(s): I48.91 - UNSPECIFIED ATRIAL FIBRILLATION Qualifiers: Atrial fibrillation type: paroxysmal Qualified Code(s): I48.0 - Paroxysmal atrial fibrillation (3) Microcytic anemia Assessment/Plan: repeat CMP, GI evaluation Iron sulfate 325 mg bid Code(s): D50.9 - IRON DEFICIENCY ANEMIA, UNSPECIFIED (4) Diabetes Assessment/Plan: [facility]'s regular insulin coverage HBA1C Code(s): E11.9 - TYPE 2 DIABETES MELLITUS WITHOUT COMPLICATIONS
[2019-05-14] MEDS ORDERED: SODIUM CHLORIDE 0.45% 1,000 ML IV SCH (19:14)
--- NOTE | 2019-05-14 19:14 | CONSULT ---
Consult Consult Specialty:: Nephrology Reason for Consultation:: SPIKE on CKD - History of Present Illness Chief Complaint: sent in for worsening renal failure History of Present Illness: Pt is a 74 year old male with pmhx of CKD, DM, CHF and VATS who was sent in for worsening renal failure. He does have history of CKD and follows with Dr Flores. He is on epogen as outpt. He was found to be in worsening renal failure and I was called to evaluate him. He is on entresto as well. He denies shortness of breath or chest pain. His renal function did improve with fluids. He was found to have worsening anemia and is getting a unit of blood. He denies shortness of breath or edema. He denies dysuria or hematuria. He was recently given steroids by ENT, unclear how many days he was on them. 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: Peripheral Neuropathy Cardio/Vascular: Yes: CAD (prior anterolateral CT 03/1995 w/ PCI of LAD & ramus , PCI of LAD 05/1996 (with 100% occluded ramus and patent RCA), rotoblator & PCI w/ Xience stent prox LAD & prox/mid Cfx 07/30/16), CHF, Hyperlipdemia, CT ( anterolateral CT 1994), Other (CHF) Pulmonary: Yes: Pneumonia (03/2016), Other (Chronic right pleural effusion ) Gastrointestinal: Yes: GERD Renal/: Yes: Renal Inusuff, BPH, Renal Calculi Psych: Yes: Anxiety, Depression Musculoskeletal: Yes: Osteoarthritis Rheumatology: Yes: Gout Endocrine: Yes: Diabetes Mellitus (with peripheral neuropathy), Other ( Hypogonadism, nodular goiter) - Past Surgical History Past Surgical History: Yes: Cataract Removal (bilateral), Hernia Repair ( umbillical) - Alcohol/Substance Use Hx Alcohol Use: No History of Substance Use: reports: None - Smoking History Smoking history: Never smoked Have you smoked in the past 12 months: No Aproximately how many cigarettes per day: 0 If you are a former smoker, when did you quit?: 35yrs ago - Social History ADL: Independent History of Recent Travel: No Home Medications - Allergies Allergies/Adverse Reactions: Allergies Allergy/AdvReac Type Severity Reaction Status Date / Time pioglitazone HCl [From Actos] Allergy Severe CHF Verified 05/13/19 13:01 - Home Medications Home Medications: Ambulatory Orders Allopurinol [Zyloprim -] 100 mg PO DAILY 02/03/18 Aspirin [Ecotrin] 81 mg PO DAILY 02/03/18 Docusate Sodium [Dulcolax Stool Softener] 300 mg PO DAILY 02/03/18 Apixaban [Eliquis -] 5 mg PO BID 30 Days #60 tablet 03/30/18 Aspirin [ASA -] 81 mg PO DAILY tab.chew 03/30/18 Atorvastatin Ca [Lipitor] 80 mg PO HS tablet 03/30/18 Carvedilol [Coreg -] 6.25 mg PO BID #60 tablet 03/30/18 Collagenase Clostridium Hist. [Santyl -] 1 applic TP DAILY tube 03/30/18 Furosemide [Lasix -] 40 mg PO DAILY tablet 03/30/18 Isosorbide Dinitrate [Isordil] 20 mg PO TIDISORDIL tablet 03/30/18 Family Medical History Family History: Denies Review of Systems - Review of Systems Constitutional: reports: No Symptoms Eyes: reports: No Symptoms HENT: reports: No Symptoms Neck: reports: No Symptoms Cardiovascular: reports: No Symptoms Respiratory: reports: SOB on Exertion Genitourinary: reports: No Symptoms Musculoskeletal: reports: No Symptoms Integumentary: reports: No Symptoms Neurological: reports: No Symptoms Endocrine: reports: No Symptoms Hematology/Lymphatic: reports: No Symptoms Physical Exam Vital Signs: Vital Signs Temperature 97.6 F 05/14/19 17:26 Pulse Rate 76 05/14/19 17:26 Respiratory Rate 18 05/14/19 17:26 Blood Pressure 142/58 L 05/14/19 17:26 O2 Sat by Pulse Oximetry (%) 96 05/14/19 10:00 Constitutional: Yes: Calm Eyes: Yes: Conjunctiva Clear HENT: Yes: Atraumatic Neck: Yes: Supple Cardiovascular: Yes: S1, S2 Respiratory: Yes: CTA Bilaterally Gastrointestinal: Yes: Normal Bowel Sounds, Soft Renal/: Yes: WNL Musculoskeletal: Yes: WNL Edema: No Neurological: Yes: Oriented Psychiatric: Yes: Oriented Labs: CBC, BMP 05/14/19 07:50 05/14/19 07:50 Laboratory Tests 04/02/19 04/19/19 05/08/19 10:21 09:45 09:01 Hgb Sodium Potassium Carbon Dioxide BUN 88.8 H 83.0 H 111.8 H* Creatinine 2.3 H 2.2 H 2.6 H Urine Protein Urine Blood 05/13/19 05/13/19 05/13/19 14:42 14:42 14:42 Hgb 9.2 L Sodium 144 Potassium 4.9 Carbon Dioxide 16 L BUN 139.8 H* Creatinine 3.1 H Urine Protein 1+ H Urine Blood Negative 05/14/19 05/14/19 07:50 07:50 Hgb 7.6 L Sodium 146 H Potassium 4.9 Carbon Dioxide 20 L BUN 133.2 H* Creatinine 2.8 H Urine Protein Urine Blood Imaging - Results Chest X-ray: Report Reviewed Problem List - Problems (1) Diabetes Code(s): E11.9 - TYPE 2 DIABETES MELLITUS WITHOUT COMPLICATIONS (2) Acute kidney failure Code(s): N17.9 - ACUTE KIDNEY FAILURE, UNSPECIFIED Qualifiers: Acute renal failure type: with other specified pathological lesion Qualified Code(s): N17.8 - Other acute kidney failure (3) CHF (congestive heart failure) Code(s): I50.9 - HEART FAILURE, UNSPECIFIED Qualifiers: Heart failure type: combined systolic and diastolic Heart failure chronicity: chronic Qualified Code(s): I50.42 - 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) heart failure Assessment/Plan Current Medications Generic Name Dose Route Start Last Admin Trade Name Freq PRN Reason Stop Dose Admin Apixaban 5 mg 05/13/19 22:00 05/14/19 09:52 Eliquis - PO 5 mg BID MARY Administration Atorvastatin Calcium 80 mg 05/13/19 22:00 05/13/19 21:29 Lipitor - PO 80 mg HS MARY Administration Carvedilol 25 mg 05/13/19 22:00 05/14/19 09:52 Coreg - PO 25 mg BID MARY Administration Ferrous Sulfate 325 mg 05/14/19 10:00 05/14/19 09:52 Feosol - PO 325 mg DAILY MARY Administration Hydralazine HCl 10 mg 05/13/19 22:00 05/14/19 14:56 Apresoline - PO 10 mg TID MARY Administration Sodium Chloride 1,000 mls @ 75 mls/hr 05/13/19 20:45 05/13/19 21:37 1/2 Normal Saline IV 75 mls/hr ASDIR MARY Administration Insulin Aspart 1 vial 05/13/19 22:00 05/14/19 17:47 Novolog Vial Sliding Scale - SQ 8 unit ACHS MARY Administration Protocol Impression 1. CKD with acute component 2. hx CHF 3. CAD 4. DM 5. HTN 6. hyperlipidemia 7. BPH 8. pleural effusions 9. SPIKE Plan - monitor hg - pt gettitng prbc - hold entresto for now until renal function stabilizes - cardio eval - steroids could have contributed to elevated bun - check stool for occult blood - will discuss with Dr Flores - decrease rate of fluids - will follow Dr Menezes
[2019-05-14] MEDS: ATORVASTATIN CA 80 MG TABLET (FP) PO SCH (21:12)
[2019-05-15] MEDS ORDERED: PT OWN MED DRAWER 7, Y5N ONE ×2 (06:45→13:36)
[2019-05-15] MEDS: hydrALAZINE HCL 10 MG TABLET PO SCH ×3 (06:49→22:41)
[2019-05-15] MEDS: INSULIN SLIDING SCALE (NOVOLOG) 1 VIAL SQ SCH ×4 (06:50→21:20)
--- NOTE | 2019-05-15 08:07 | PN ---
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 (short form) - Note 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: Pt denies abdominal pain, states he has no appetite. Abdomen: bowel sounds present, soft, nontender, no palpable masses. Possible etiologies of his loss of appetite include: 1) uremia - BUN 133! 2) diabetic gastroparesis - somewhat less likely as he denies vomiting or nausea , and gastroparesis tends to cause episodic symptoms rather than continuous loss of appetite. Nevertheless it is a possibility. 3) depression - he admits he is depressed about his deteriorating health. 4) occult malignancy, particularly pancreatic, but as his weight loss has been going on for 2 years, that seems unlikely 5) mesenteric vascular insufficiency - usually such persons complain of pain after eating rather than loss of appetite, so again I put this one low down on the list. 6) discomfort from p.o. Feosol. Agree with abd/pelvic CT scan. If negative would suggest holding Feosol for a few days, obtain a gastric emptying study, and a vascular sonogram of the celiac axis (inspiration and expirational Doppler flow study.), and, of course, correction of uremia. Additionally, mirtazapine (Remeron) can treat depression and weight loss. Would begin with 7.5 mg hs x 3 days, then increase to 15 mg hs.
[2019-05-15 09:13] LABS: ALBUMIN 2.2 g/dl (3.4-5.0); BILIRUBIN,TOTAL 0.8 mg/dL (0.2-1); CALCIUM 7.9 mg/dL (8.5-10.1); CREATININE 2.4 mg/dL (0.55-1.3); TOT PROT 5.6 g/dl (6.4-8.2)
[2019-05-15 09:20] LABS: BLOOD UREA NITROGEN 115.7 mg/dL (7-18)
[2019-05-15] MEDS: FERROUS SO4 325 MG TABLET (FP) PO SCH (09:45)
[2019-05-15] MEDS: APIXABAN 5 MG TABLET PO SCH ×2 (09:45→21:19)
[2019-05-15] MEDS: CARVEDILOL 25 MG TABLET (FP) PO SCH ×2 (09:45→21:19)
[2019-05-15 11:39] LABS: BASO % 0.5 % (0-2.0); EOS % 3.2 % (0-4.5); HEMATOCRIT 30.8 % (35.4-49); HEMOGLOBIN 10.1 GM/dL (11.7-16.9); LYMPH % 19.8 % (8-40); MCH 30.5 pg (25.7-33.7); MCHC 32.7 g/dl (32.0-35.9); MEAN CELL VOLUME 93.1 fl (80-96); MONO % 7.8 % (3.8-10.2); NEUT % 68.7 % (42.8-82.8); PLATELET COUNT 163 K/MM3 (134-434); RBC 3.31 M/mm3 (4.00-5.60); RDW 16.2 % (11.9-15.9); WHITE BLOOD COUNT 6.4 K/mm3 (4.0-10.0)
[2019-05-15] MEDS ORDERED: PANTOPRAZOLE 40 MG TABLET (FP) PO ONE (18:15)
--- NOTE | 2019-05-15 19:24 | PN ---
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, Physician Chief Complaint: feels better, more energetic, complains of insomnia - Current Medication List Current Medications: Active Medications Apixaban (Eliquis -) 5 mg PO BID [facility] Last Admin: 05/15/19 09:45 Dose: 5 mg Atorvastatin Calcium (Lipitor -) 80 mg PO HS [facility] Last Admin: 05/14/19 21:12 Dose: 80 mg Carvedilol (Coreg -) 25 mg PO BID [facility] Last Admin: 05/15/19 09:45 Dose: 25 mg Ferrous Sulfate (Feosol -) 325 mg PO DAILY [facility] Last Admin: 05/15/19 09:45 Dose: 325 mg Hydralazine HCl (Apresoline -) 10 mg PO TID [facility] Last Admin: 05/15/19 13:38 Dose: 10 mg Sodium Chloride (1/2 Normal Saline) 1,000 mls @ 40 mls/hr IV ASDIR [facility] Last Admin: 05/14/19 21:12 Dose: 40 mls/hr Insulin Aspart (Novolog Vial Sliding Scale -) 1 vial SQ ACHS [facility]; Protocol Last Admin: 05/15/19 17:49 Dose: Not Given Pantoprazole Sodium (Protonix -) 40 mg PO DAILY [facility] Zolpidem Tartrate (Ambien -) 10 mg PO HS PRN PRN Reason: INSOMNIA - Objective Vital Signs: Vital Signs Temperature 97.4 F L 05/15/19 15:00 Pulse Rate 73 05/15/19 15:00 Respiratory Rate 20 05/15/19 15:00 Blood Pressure 141/72 05/15/19 15:00 O2 Sat by Pulse Oximetry (%) 96 05/14/19 10:00 Constitutional: Yes: No Distress, Calm Eyes: Yes: Conjunctiva Clear, EOM Intact HENT: Yes: Atraumatic, Normocephalic Neck: Yes: Supple, Trachea Midline Cardiovascular: Yes: Regular Rate and Rhythm, S1, S2 Respiratory: Yes: On Nasal O2 Gastrointestinal: Yes: Normal Bowel Sounds, Soft Extremities: No: Calf Tenderness Edema: No Peripheral Pulses WNL: Yes Integumentary: Yes: Other (stage 1 decubitus ulcer in [place] sacral area) Neurological: Yes: Alert, Oriented Psychiatric: Yes: Alert, Oriented Labs: CBC, BMP 05/15/19 07:40 05/15/19 07:15 Problem List - Problems (1) [id number] kidney injury Assessment/Plan: hold Entresto hold Lasix continue hydration renal and pelvis US before and after void without significant changes Code(s): N17.9 - ACUTE KIDNEY FAILURE, UNSPECIFIED; N18.9 - CHRONIC KIDNEY DISEASE, UNSPECIFIED Qualifiers: Chronic kidney disease stage: stage 4 (severe) (2) Atrial fibrillation Assessment/Plan: Coreg BId ASA Eliquis Code(s): I48.91 - UNSPECIFIED ATRIAL FIBRILLATION Qualifiers: Atrial fibrillation type: paroxysmal Qualified Code(s): I48.0 - Paroxysmal atrial fibrillation (3) Diabetes Code(s): E11.9 - TYPE 2 DIABETES MELLITUS WITHOUT COMPLICATIONS (4) Acute kidney failure Assessment/Plan: continue Hydration repeat CMP in am Code(s): N17.9 - ACUTE KIDNEY FAILURE, UNSPECIFIED Qualifiers: Acute renal failure type: with other specified pathological lesion Qualified Code(s): N17.8 - Other acute kidney failure (5) Anemia Assessment/Plan: most likely a combination of mycrocitic and macrocytic continue Iron, add B12 Code(s): D64.9 - ANEMIA, UNSPECIFIED
--- NOTE | 2019-05-15 19:58 | PN ---
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, Physician History of Present Illness: Pt seen and examined at bedside. He is awake and alert. he denies shortness of breath. - Current Medication List Current Medications: Active Medications Apixaban (Eliquis -) 5 mg PO BID [facility] Last Admin: 05/15/19 09:45 Dose: 5 mg Atorvastatin Calcium (Lipitor -) 80 mg PO HS [facility] Last Admin: 05/14/19 21:12 Dose: 80 mg Carvedilol (Coreg -) 25 mg PO BID [facility] Last Admin: 05/15/19 09:45 Dose: 25 mg Ferrous Sulfate (Feosol -) 325 mg PO DAILY [facility] Last Admin: 05/15/19 09:45 Dose: 325 mg Hydralazine HCl (Apresoline -) 10 mg PO TID [facility] Last Admin: 05/15/19 13:38 Dose: 10 mg Sodium Chloride (1/2 Normal Saline) 1,000 mls @ 40 mls/hr IV ASDIR [facility] Last Admin: 05/14/19 21:12 Dose: 40 mls/hr Insulin Aspart (Novolog Vial Sliding Scale -) 1 vial SQ ACHS [facility]; Protocol Last Admin: 05/15/19 17:49 Dose: Not Given Pantoprazole Sodium (Protonix -) 40 mg PO DAILY [facility] Zolpidem Tartrate (Ambien -) 5 mg PO HS PRN PRN Reason: INSOMNIA - Objective Vital Signs: Vital Signs Temperature 97.7 F 05/15/19 19:55 Pulse Rate 76 05/15/19 19:55 Respiratory Rate 20 05/15/19 19:55 Blood Pressure 149/64 05/15/19 19:55 O2 Sat by Pulse Oximetry (%) 96 05/14/19 10:00 Constitutional: Yes: Calm Eyes: Yes: Conjunctiva Clear HENT: Yes: Atraumatic Neck: Yes: Supple Cardiovascular: Yes: S1, S2 Respiratory: Yes: CTA Bilaterally Gastrointestinal: Yes: Soft Genitourinary: Yes: WNL Extremities: Yes: WNL Edema: No Neurological: Yes: Oriented Psychiatric: Yes: Oriented Labs: CBC, BMP 05/15/19 07:40 05/15/19 07:15 Problem List - Problems (1) Diabetes Code(s): E11.9 - TYPE 2 DIABETES MELLITUS WITHOUT COMPLICATIONS (2) Acute kidney failure Code(s): N17.9 - ACUTE KIDNEY FAILURE, UNSPECIFIED Qualifiers: Acute renal failure type: with other specified pathological lesion Qualified Code(s): N17.8 - Other acute kidney failure (3) CHF (congestive heart failure) Code(s): I50.9 - HEART FAILURE, UNSPECIFIED Qualifiers: Heart failure type: combined systolic and diastolic Heart failure chronicity: chronic Qualified Code(s): I50.42 - 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) heart failure Assessment/Plan Current Medications Generic Name Dose Route Start Last Admin Trade Name Freq PRN Reason Stop Dose Admin Apixaban 5 mg 05/13/19 22:00 05/15/19 09:45 Eliquis - PO 5 mg BID [facility] Administration Atorvastatin Calcium 80 mg 05/13/19 22:00 05/14/19 21:12 Lipitor - PO 80 mg HS [facility] Administration Carvedilol 25 mg 05/13/19 22:00 05/15/19 09:45 Coreg - PO 25 mg BID [facility] Administration Ferrous Sulfate 325 mg 05/14/19 10:00 05/15/19 09:45 Feosol - PO 325 mg DAILY [facility] Administration Hydralazine HCl 10 mg 05/13/19 22:00 05/15/19 13:38 Apresoline - PO 10 mg TID [facility] Administration Sodium Chloride 1,000 mls @ 40 mls/hr 05/14/19 19:14 05/14/19 21:12 1/2 Normal Saline IV 40 mls/hr ASDIR [facility] Administration Insulin Aspart 1 vial 05/13/19 22:00 05/15/19 17:49 Novolog Vial Sliding Scale - SQ Not Given ACHS [facility] Protocol Pantoprazole Sodium 40 mg 05/16/19 10:00 Protonix - PO DAILY [facility] Zolpidem Tartrate 5 mg 05/15/19 19:22 Ambien - PO HS PRN INSOMNIA Impression 1. CKD with acute component 2. hx CHF 3. CAD 4. DM 5. HTN 6. hyperlipidemia 7. BPH 8. pleural effusions 9. SPIKE Plan - monitor lytes - gentle hydration - repeat labs in am - will hold fluids overnight - repeat labs in am - hold entresto for now until renal function stabilizes - pt says appetite is improved - will follow Dr Menezes
[2019-05-15] MEDS ORDERED: DEXTROSE 5%-WATER - 1,000 ML IV SCH ×2 (20:00)
[2019-05-15] MEDS: ATORVASTATIN CA 80 MG TABLET (FP) PO SCH (21:19)
[2019-05-15] MEDS: ZOLPIDEM TARTRATE 5 MG TABLET PO PRN (22:42)
[2019-05-16] MEDS: hydrALAZINE HCL 10 MG TABLET PO SCH ×3 (06:53→21:15)
[2019-05-16] MEDS: INSULIN SLIDING SCALE (NOVOLOG) 1 VIAL SQ SCH ×4 (06:53→21:18)
[2019-05-16 08:21] LABS: ALBUMIN 2.2 g/dl (3.4-5.0); BILIRUBIN,TOTAL 0.7 mg/dL (0.2-1); CALCIUM 7.8 mg/dL (8.5-10.1); CREATININE 2.4 mg/dL (0.55-1.3); POTASSIUM 5.1 mmol/L (3.5-5.1); TOT PROT 5.3 g/dl (6.4-8.2)
[2019-05-16 08:40] LABS: BLOOD UREA NITROGEN 107.2 mg/dL (7-18)
[2019-05-16] MEDS: PANTOPRAZOLE 40 MG TABLET (FP) PO SCH (10:17)
[2019-05-16] MEDS: CARVEDILOL 25 MG TABLET (FP) PO SCH ×2 (10:17→21:16)
[2019-05-16] MEDS: APIXABAN 5 MG TABLET PO SCH ×2 (10:17→21:16)
[2019-05-16] MEDS: FERROUS SO4 325 MG TABLET (FP) PO SCH (10:17)
[2019-05-16] MEDS ORDERED: SODIUM CHLORIDE 0.45% 1,000 ML IV SCH ×2 (10:45→20:30)
[2019-05-16] MEDS ORDERED: SODIUM CHLORIDE 1,000 ML IV SCH (12:00)
--- NOTE | 2019-05-16 12:25 | PN ---
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, Physician Chief Complaint: feels better, more energetic, complains of insomnia - Current Medication List Current Medications: Active Medications Apixaban (Eliquis -) 5 mg PO BID [facility] Last Admin: 05/16/19 10:17 Dose: 5 mg Atorvastatin Calcium (Lipitor -) 80 mg PO HS [facility] Last Admin: 05/15/19 21:19 Dose: 80 mg Carvedilol (Coreg -) 25 mg PO BID [facility] Last Admin: 05/16/19 10:17 Dose: 25 mg Ferrous Sulfate (Feosol -) 325 mg PO DAILY [facility] Last Admin: 05/16/19 10:17 Dose: 325 mg Hydralazine HCl (Apresoline -) 10 mg PO TID [facility] Last Admin: 05/16/19 06:53 Dose: 10 mg Sodium Chloride (1/2 Normal Saline) 1,000 mls @ 40 mls/hr IV ASDIR [facility] Stop: 05/16/19 22:44 Sodium Chloride (Normal Saline -) 1,000 mls @ 50 mls/hr IV ASDIR [facility] Stop: 05/17/19 11:57 Insulin Aspart (Novolog Vial Sliding Scale -) 1 vial SQ ACHS [facility]; Protocol Last Admin: 05/16/19 11:59 Dose: Not Given Mupirocin (Bactroban Ointment (For Decolonization) -) 1 applic NS BID [facility] Stop: 05/21/19 12:29 Pantoprazole Sodium (Protonix -) 40 mg PO DAILY [facility] Last Admin: 05/16/19 10:17 Dose: 40 mg Zolpidem Tartrate (Ambien -) 5 mg PO HS PRN PRN Reason: INSOMNIA Last Admin: 05/15/19 22:42 Dose: 5 mg - Objective Vital Signs: Vital Signs Temperature 98.7 F 05/16/19 06:00 Pulse Rate 68 05/16/19 06:00 Respiratory Rate 20 05/16/19 06:00 Blood Pressure 115/51 L 05/16/19 06:00 O2 Sat by Pulse Oximetry (%) 96 05/14/19 10:00 Constitutional: Yes: No Distress, Calm Eyes: Yes: Conjunctiva Clear, EOM Intact HENT: Yes: Atraumatic, Normocephalic, Other (left ear discharge minimal) Cardiovascular: Yes: Regular Rate and Rhythm, S1, S2 Respiratory: Yes: Regular, CTA Bilaterally Gastrointestinal: Yes: Normal Bowel Sounds, Soft. No: Hepatomegaly, Splenomegaly ...Rectal Exam: Yes: Deferred Musculoskeletal: Yes: Muscle Weakness Extremities: No: Calf Tenderness Edema: No Peripheral Pulses WNL: Yes Integumentary: Yes: Pressure Ulcer (of the sacral area stage 1) Neurological: Yes: Alert, Oriented Psychiatric: Yes: Alert, Oriented Labs: CBC, BMP 05/15/19 07:40 05/16/19 07:03 Problem List - Problems (1) Symdi-he-pptzznp kidney injury Assessment/Plan: hold Entresto hold Lasix continue iv hydration renal and pelvis US before and after void without significant changes CT of the abdomen and pelvis is pending Code(s): N17.9 - ACUTE KIDNEY FAILURE, UNSPECIFIED; N18.9 - CHRONIC KIDNEY DISEASE, UNSPECIFIED Qualifiers: Chronic kidney disease stage: stage 4 (severe) (2) Atrial fibrillation Assessment/Plan: Coreg BId discontinue ASA Eliquis Code(s): I48.91 - UNSPECIFIED ATRIAL FIBRILLATION Qualifiers: Atrial fibrillation type: paroxysmal Qualified Code(s): I48.0 - Paroxysmal atrial fibrillation (3) Diabetes Assessment/Plan: [facility] regular insulin coverage HBA1C Code(s): E11.9 - TYPE 2 DIABETES MELLITUS WITHOUT COMPLICATIONS (4) Acute kidney failure Assessment/Plan: continue Hydration repeat CMP in am Code(s): N17.9 - ACUTE KIDNEY FAILURE, UNSPECIFIED Qualifiers: Acute renal failure type: with other specified pathological lesion Qualified Code(s): N17.8 - Other acute kidney failure (5) Anemia Assessment/Plan: most likely a combination of mycrocitic and macrocytic continue Iron, add B12 CT scan of [facility] abdomen pending Code(s): D64.9 - ANEMIA, UNSPECIFIED (6) Pressure ulcer Assessment/Plan: Prutect Allevyn dressing Code(s): L89.90 - PRESSURE ULCER OF UNSPECIFIED SITE, UNSPECIFIED STAGE Qualifiers: Pressure injury location: other site
[2019-05-16] MEDS ORDERED: MUPIROCIN 2% TOPICAL OINTMENT FOR DECOLONIZATION NS SCH (12:30)
[2019-05-16] MEDS ORDERED: PT OWN MED DRAWER 7, Y5N ONE ×2 (14:59→21:02)
--- NOTE | 2019-05-16 18:24 | PN ---
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, Physician Chief Complaint: Pt A&Ox3; no chest pain or dyspnea; no abdominal pain. Anxious about his heart, asking "Why, if I worked for 50 years without any problems, did my heart "stop" ? (heart failure). Wants to go home. History of Present Illness: 74 yr old white man, former smoker with h/o CAD s/p multivessel stents, DM, HTN , systolic dysfunction with pulm HTN, chronic loculated right pleural effusion s /p pleur-x which stopped draining despite TPA and subsequently removed followed by right VATS, pneumolysis, pleural biopsy and partial decortication, CKD, h/o hernia repair admitted for acute on CKD, weakness, significant weight loss, anemia and poor appetite, receiving pRBC transfusion. There is no recent colonoscopy or endoscopy. He is on chronic anticoagulation with Eliquis and ASA , planned for UGI series Friday. He denies chest pain, dyspnea worse than baseline, palpitations, near or true syncope, orthopnea, PND or worsening LE edema, last saw Dr. Chacon several months ago. Feature Writer: Dr. Beau Chacon - [facility] - Current Medication List Current Medications: Active Medications Apixaban (Eliquis -) 5 mg PO BID [facility] Last Admin: 05/16/19 10:17 Dose: 5 mg Atorvastatin Calcium (Lipitor -) 80 mg PO HS [facility] Last Admin: 05/15/19 21:19 Dose: 80 mg Carvedilol (Coreg -) 25 mg PO BID [facility] Last Admin: 05/16/19 10:17 Dose: 25 mg Ferrous Sulfate (Feosol -) 325 mg PO DAILY [facility] Last Admin: 05/16/19 10:17 Dose: 325 mg Hydralazine HCl (Apresoline -) 10 mg PO TID [facility] Last Admin: 05/16/19 15:03 Dose: 10 mg Sodium Chloride (1/2 Normal Saline) 1,000 mls @ 40 mls/hr IV ASDIR [facility] Stop: 05/16/19 22:44 Last Admin: 05/16/19 12:55 Dose: Not Given Insulin Aspart (Novolog Vial Sliding Scale -) 1 vial SQ ACHS [facility]; Protocol Last Admin: 05/16/19 17:58 Dose: 2 unit Mupirocin (Bactroban Ointment (For Decolonization) -) 1 applic NS BID [facility] Stop: 05/21/19 12:29 Pantoprazole Sodium (Protonix -) 40 mg PO DAILY [facility] Last Admin: 05/16/19 10:17 Dose: 40 mg Zolpidem Tartrate (Ambien -) 5 mg PO HS PRN PRN Reason: INSOMNIA Last Admin: 05/15/19 22:42 Dose: 5 mg - Objective Vital Signs: Vital Signs Temperature 97.8 F 05/16/19 14:00 Pulse Rate 77 05/16/19 14:00 Respiratory Rate 20 05/16/19 14:00 Blood Pressure 156/70 05/16/19 14:00 O2 Sat by Pulse Oximetry (%) 96 05/14/19 10:00 Constitutional: Yes: Anxious Eyes: Yes: WNL HENT: Yes: WNL Cardiovascular: Yes: Pulse Irregular, S1 (normal), S2 Respiratory: Yes: WNL Labs: CBC, BMP 05/15/19 07:40 05/16/19 07:03 Problem List - Problems (1) Systolic CHF Assessment/Plan: Entresto held pending workup for renal dysfunction. Code(s): I50.20 - UNSPECIFIED SYSTOLIC (CONGESTIVE) HEART FAILURE (2) Anemia Assessment/Plan: s/p PRBCs GI workup underway Code(s): D64.9 - ANEMIA, UNSPECIFIED (3) Diabetes Code(s): E11.9 - TYPE 2 DIABETES MELLITUS WITHOUT COMPLICATIONS (4) Atrial fibrillation Assessment/Plan: On carvedilol for AF, HTN On apixaban for anticoagulation. Code(s): I48.91 - UNSPECIFIED ATRIAL FIBRILLATION Qualifiers: Atrial fibrillation type: paroxysmal Qualified Code(s): I48.0 - Paroxysmal atrial fibrillation (5) CAD (coronary artery disease) Code(s): I25.10 - ATHSCL HEART DISEASE OF [place] CORONARY ARTERY W/O ANG PCTRS Qualifiers: Coronary Disease-Associated Artery/Lesion type: [place] artery [place] vs. transplanted heart: [place] heart Associated angina: without angina Qualified Code(s): I25.10 - Atherosclerotic heart disease of [place] coronary artery without angina pectoris (6) HTN (hypertension) Assessment/Plan: On carvedilol and hydralazine. F/u ECHO for LVEF, chamber thicknesses, valve status. Code(s): I10 - ESSENTIAL (PRIMARY) HYPERTENSION Qualifiers: Hypertension type: essential hypertension Qualified Code(s): I10 - Essential (primary) hypertension (7) Hyperlipidemia Code(s): E78.5 - HYPERLIPIDEMIA, UNSPECIFIED Qualifiers: Hyperlipidemia type: pure hypercholesterolemia Qualified Code(s): E78.00 - Pure hypercholesterolemia, unspecified; E78.0 - Pure hypercholesterolemia (8) Loss of appetite Assessment/Plan: GI workup underway For UGI series. Code(s): R63.0 - ANOREXIA (9) Acute on chronic renal insufficiency Assessment/Plan: f/u with telecom coordinator. Code(s): N28.9 - DISORDER OF KIDNEY AND URETER, UNSPECIFIED; N18.9 - CHRONIC KIDNEY DISEASE, UNSPECIFIED (10) Pleural effusion Assessment/Plan: chronic; loculated (s/p drainage). Code(s): J90 - PLEURAL EFFUSION, NOT ELSEWHERE CLASSIFIED
--- NOTE | 2019-05-16 20:26 | PN ---
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, Physician History of Present Illness: Pt seen and examined at bedside. He is awake and alert. He denies shortness of breath. - Current Medication List Current Medications: Active Medications Apixaban (Eliquis -) 5 mg PO BID [facility] Last Admin: 05/16/19 10:17 Dose: 5 mg Atorvastatin Calcium (Lipitor -) 80 mg PO HS [facility] Last Admin: 05/15/19 21:19 Dose: 80 mg Carvedilol (Coreg -) 25 mg PO BID [facility] Last Admin: 05/16/19 10:17 Dose: 25 mg Ferrous Sulfate (Feosol -) 325 mg PO DAILY [facility] Last Admin: 05/16/19 10:17 Dose: 325 mg Hydralazine HCl (Apresoline -) 10 mg PO TID [facility] Last Admin: 05/16/19 15:03 Dose: 10 mg Sodium Chloride (1/2 Normal Saline) 1,000 mls @ 40 mls/hr IV ASDIR [facility] Stop: 05/16/19 22:44 Last Admin: 05/16/19 12:55 Dose: Not Given Insulin Aspart (Novolog Vial Sliding Scale -) 1 vial SQ [facility]; Protocol Last Admin: 05/16/19 17:58 Dose: 2 unit Mupirocin (Bactroban Ointment (For Decolonization) -) 1 applic NS BID [facility] Stop: 05/21/19 12:29 Pantoprazole Sodium (Protonix -) 40 mg PO DAILY [facility] Last Admin: 05/16/19 10:17 Dose: 40 mg Zolpidem Tartrate (Ambien -) 5 mg PO HS PRN PRN Reason: INSOMNIA Last Admin: 05/15/19 22:42 Dose: 5 mg - Objective Vital Signs: Vital Signs Temperature 97.9 F 05/16/19 20:04 Pulse Rate 78 05/16/19 20:04 Respiratory Rate 20 05/16/19 20:04 Blood Pressure 94/47 L 05/16/19 20:04 O2 Sat by Pulse Oximetry (%) 96 05/14/19 10:00 Constitutional: Yes: Calm Eyes: Yes: Conjunctiva Clear HENT: Yes: Atraumatic Cardiovascular: Yes: S1, S2 Respiratory: Yes: On Nasal O2 Gastrointestinal: Yes: Normal Bowel Sounds, Soft Genitourinary: Yes: WNL Musculoskeletal: Yes: WNL Edema: No Neurological: Yes: Oriented Psychiatric: Yes: Oriented Labs: CBC, BMP 05/15/19 07:40 05/16/19 07:03 Problem List - Problems (1) Diabetes Code(s): E11.9 - TYPE 2 DIABETES MELLITUS WITHOUT COMPLICATIONS (2) Acute kidney failure Code(s): N17.9 - ACUTE KIDNEY FAILURE, UNSPECIFIED Qualifiers: Acute renal failure type: with other specified pathological lesion Qualified Code(s): N17.8 - Other acute kidney failure (3) CHF (congestive heart failure) Code(s): I50.9 - HEART FAILURE, UNSPECIFIED Qualifiers: Heart failure type: combined systolic and diastolic Heart failure chronicity: chronic Qualified Code(s): I50.42 - 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) heart failure Assessment/Plan Current Medications Generic Name Dose Route Start Last Admin Trade Name Freq PRN Reason Stop Dose Admin Apixaban 5 mg 05/13/19 22:00 05/16/19 10:17 Eliquis - PO 5 mg BID [facility] Administration Atorvastatin Calcium 80 mg 05/13/19 22:00 05/15/19 21:19 Lipitor - PO 80 mg HS [facility] Administration Carvedilol 25 mg 05/13/19 22:00 05/16/19 10:17 Coreg - PO 25 mg BID [facility] Administration Ferrous Sulfate 325 mg 05/14/19 10:00 05/16/19 10:17 Feosol - PO 325 mg DAILY [facility] Administration Hydralazine HCl 10 mg 05/13/19 22:00 05/16/19 15:03 Apresoline - PO 10 mg TID [facility] Administration Sodium Chloride 1,000 mls @ 40 mls/hr 05/16/19 10:45 05/16/19 12:55 1/2 Normal Saline IV 05/16/19 22:44 Not Given ASDIR [facility] Insulin Aspart 1 vial 05/13/19 22:00 05/16/19 17:58 Novolog Vial Sliding Scale - SQ 2 unit ACHS [facility] Administration Protocol Mupirocin 1 applic 05/16/19 12:30 Bactroban Ointment (For Decolonization) - NS 05/21/19 12:29 BID [facility] Pantoprazole Sodium 40 mg 05/16/19 10:00 05/16/19 10:17 Protonix - PO 40 mg DAILY [facility] Administration Zolpidem Tartrate 5 mg 05/15/19 19:22 05/15/19 22:42 Ambien - PO 5 mg HS PRN Administration INSOMNIA Impression 1. CKD with acute component 2. hx CHF 3. CAD 4. DM 5. HTN 6. hyperlipidemia 7. BPH 8. pleural effusions 9. SPIKE Plan - cont fluids - repeat labs in am - monitor renal function - low potassium diet - hold entresto for now until renal function stabilizes - will follow Dr Menezes
[2019-05-16] MEDS: ZOLPIDEM TARTRATE 5 MG TABLET PO PRN (21:16)
[2019-05-16] MEDS: ATORVASTATIN CA 80 MG TABLET (FP) PO SCH (21:16)
[2019-05-17] MEDS: hydrALAZINE HCL 10 MG TABLET PO SCH ×3 (06:39→22:53)
[2019-05-17] MEDS: INSULIN SLIDING SCALE (NOVOLOG) 1 VIAL SQ SCH ×4 (06:39→22:52)
[2019-05-17] MEDS: FERROUS SO4 325 MG TABLET (FP) PO SCH (10:08)
[2019-05-17] MEDS: PANTOPRAZOLE 40 MG TABLET (FP) PO SCH (10:08)
[2019-05-17] MEDS: APIXABAN 5 MG TABLET PO SCH ×2 (10:08→22:53)
[2019-05-17] MEDS: CARVEDILOL 25 MG TABLET (FP) PO SCH ×2 (10:08→22:53)
[2019-05-17 11:47] LABS: ALBUMIN 2.1 g/dl (3.4-5.0); BILIRUBIN,TOTAL 0.6 mg/dL (0.2-1); BLOOD UREA NITROGEN 88.8 mg/dL (7-18); CALCIUM 7.8 mg/dL (8.5-10.1); CREATININE 2.2 mg/dL (0.55-1.3); POTASSIUM 4.6 mmol/L (3.5-5.1); TOT PROT 5.4 g/dl (6.4-8.2)
[2019-05-17] MEDS ORDERED: INSULIN (NOVOLOG) ASPART 100 UNITS/ML 10ML VIAL ONE (12:50)
--- NOTE | 2019-05-17 14:04 | PN ---
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, Physician History of Present Illness: Pt seen and examined at bedside. He is awake and alert. He denies shortness of breath. - Current Medication List Current Medications: Active Medications Apixaban (Eliquis -) 5 mg PO BID [facility] Last Admin: 05/17/19 10:08 Dose: 5 mg Atorvastatin Calcium (Lipitor -) 80 mg PO HS [facility] Last Admin: 05/16/19 21:16 Dose: 80 mg Carvedilol (Coreg -) 25 mg PO BID [facility] Last Admin: 05/17/19 10:08 Dose: 25 mg Ferrous Sulfate (Feosol -) 325 mg PO DAILY [facility] Last Admin: 05/17/19 10:08 Dose: 325 mg Hydralazine HCl (Apresoline -) 10 mg PO TID [facility] Last Admin: 05/17/19 06:39 Dose: 10 mg Sodium Chloride (1/2 Normal Saline) 1,000 mls @ 42 mls/hr IV ASDIR [facility] Last Admin: 05/16/19 21:16 Dose: 42 mls/hr Insulin Aspart (Novolog Vial Sliding Scale -) [address] [facility]; Protocol Last Admin: 05/17/19 12:52 Dose: 2 unit Mupirocin (Bactroban Ointment (For Decolonization) -) 1 applic NS BID [facility] Stop: 05/21/19 12:29 Pantoprazole Sodium (Protonix -) 40 mg PO DAILY [facility] Last Admin: 05/17/19 10:08 Dose: 40 mg Zolpidem Tartrate (Ambien -) 5 mg PO HS PRN PRN Reason: INSOMNIA Last Admin: 05/16/19 21:16 Dose: 5 mg - Objective Vital Signs: Vital Signs Temperature 97.9 F 05/17/19 07:39 Pulse Rate 69 05/17/19 07:39 Respiratory Rate 20 05/17/19 07:39 Blood Pressure 120/68 05/17/19 07:39 O2 Sat by Pulse Oximetry (%) 96 05/14/19 10:00 Constitutional: Yes: Calm Eyes: Yes: Conjunctiva Clear HENT: Yes: Atraumatic Neck: Yes: Supple Cardiovascular: Yes: S1, S2 Respiratory: Yes: CTA Bilaterally Gastrointestinal: Yes: Normal Bowel Sounds, Soft Genitourinary: Yes: WNL Musculoskeletal: Yes: WNL Edema: No Neurological: Yes: Oriented Psychiatric: Yes: Oriented Labs: CBC, BMP 05/15/19 07:40 05/17/19 10:25 Problem List - Problems (1) Diabetes Code(s): E11.9 - TYPE 2 DIABETES MELLITUS WITHOUT COMPLICATIONS (2) Acute kidney failure Code(s): N17.9 - ACUTE KIDNEY FAILURE, UNSPECIFIED Qualifiers: Acute renal failure type: with other specified pathological lesion Qualified Code(s): N17.8 - Other acute kidney failure (3) CHF (congestive heart failure) Code(s): I50.9 - HEART FAILURE, UNSPECIFIED Qualifiers: Heart failure type: combined systolic and diastolic Heart failure chronicity: chronic Qualified Code(s): I50.42 - 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) heart failure Assessment/Plan Current Medications Generic Name Dose Route Start Last Admin Trade Name Freq PRN Reason Stop Dose Admin Apixaban 5 mg 05/13/19 22:00 05/17/19 10:08 Eliquis - PO 5 mg BID [facility] Administration Atorvastatin Calcium 80 mg 05/13/19 22:00 05/16/19 21:16 Lipitor - PO 80 mg HS [facility] Administration Carvedilol 25 mg 05/13/19 22:00 05/17/19 10:08 Coreg - PO 25 mg BID [facility] Administration Ferrous Sulfate 325 mg 05/14/19 10:00 05/17/19 10:08 Feosol - PO 325 mg DAILY [facility] Administration Hydralazine HCl 10 mg 05/13/19 22:00 05/17/19 06:39 Apresoline - PO 10 mg TID [facility] Administration Sodium Chloride 1,000 mls @ 42 mls/hr 05/16/19 20:30 05/16/19 21:16 1/2 Normal Saline IV 42 mls/hr ASDIR [facility] Administration Insulin Aspart 1 vial 05/13/19 22:00 05/17/19 12:52 Novolog Vial Sliding Scale - SQ 2 unit ACHS [facility] Administration Protocol Mupirocin 1 applic 05/16/19 12:30 Bactroban Ointment (For Decolonization) - NS 05/21/19 12:29 BID [facility] Pantoprazole Sodium 40 mg 05/16/19 10:00 05/17/19 10:08 Protonix - PO 40 mg DAILY [facility] Administration Zolpidem Tartrate 5 mg 05/15/19 19:22 05/16/19 21:16 Ambien - PO 5 mg HS PRN Administration INSOMNIA Impression 1. CKD with acute component 2. hx CHF 3. CAD 4. DM 5. HTN 6. hyperlipidemia 7. BPH 8. pleural effusions 9. SPIKE Plan - renal function is improved - pt tolerated fluids - will decrease rate of fluids and can stop fluids tonight - diuretics are on hold, will need to be re-introduced - entresto on hold - pt will need close outpt follow up after discharge - cardiology follow up Dr Menezes
[2019-05-17] MEDS ORDERED: PT OWN MED DRAWER 7, Y5N ONE ×2 (15:38→21:06)
[2019-05-17] MEDS: SODIUM CHLORIDE 0.45% 1,000 ML IV SCH (15:44)
--- NOTE | 2019-05-17 21:39 | PN ---
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, Physician Chief Complaint: feels better, more energetic, complains of insomnia - Current Medication List Current Medications: Active Medications Apixaban (Eliquis -) 5 mg PO BID [facility] Last Admin: 05/17/19 10:08 Dose: 5 mg Atorvastatin Calcium (Lipitor -) 80 mg PO HS [facility] Last Admin: 05/16/19 21:16 Dose: 80 mg Carvedilol (Coreg -) 25 mg PO BID [facility] Last Admin: 05/17/19 10:08 Dose: 25 mg Ferrous Sulfate (Feosol -) 325 mg PO DAILY [facility] Last Admin: 05/17/19 10:08 Dose: 325 mg Hydralazine HCl (Apresoline -) 10 mg PO TID [facility] Last Admin: 05/17/19 15:41 Dose: 10 mg Sodium Chloride (1/2 Normal Saline) 1,000 mls @ 35 mls/hr IV ASDIR [facility] Last Admin: 05/17/19 15:44 Dose: 35 mls/hr Insulin Aspart (Novolog Vial Sliding Scale -) 1 vial SQ ACHS [facility]; Protocol Last Admin: 05/17/19 17:38 Dose: 2 unit Mupirocin (Bactroban Ointment (For Decolonization) -) 1 applic NS BID [facility] Stop: 05/21/19 12:29 Pantoprazole Sodium (Protonix -) 40 mg PO DAILY [facility] Last Admin: 05/17/19 10:08 Dose: 40 mg Sitagliptin Phosphate (Januvia -) 25 mg PO DAILY@0700 [facility] Zolpidem Tartrate (Ambien -) 5 mg PO HS PRN PRN Reason: INSOMNIA Last Admin: 05/16/19 21:16 Dose: 5 mg - Objective Vital Signs: Vital Signs Temperature 98 F 05/17/19 18:50 Pulse Rate 73 05/17/19 18:50 Respiratory Rate 20 05/17/19 18:50 Blood Pressure 133/64 05/17/19 18:50 O2 Sat by Pulse Oximetry (%) 96 05/14/19 10:00 Constitutional: Yes: No Distress, Calm Eyes: Yes: Conjunctiva Clear, EOM Intact Neck: Yes: Supple, Trachea Midline Cardiovascular: Yes: Regular Rate and Rhythm Gastrointestinal: Yes: Normal Bowel Sounds, Soft. No: Hepatomegaly, Melena, Splenomegaly Labs: CBC, BMP 05/15/19 07:40 05/17/19 10:25 Problem List - Problems (1) [id number] kidney injury Assessment/Plan: hold Entresto hold Lasix continue iv hydration renal and pelvis US before and after void without significant changes CT of the abdomen and pelvis is pending Code(s): N17.9 - ACUTE KIDNEY FAILURE, UNSPECIFIED; N18.9 - CHRONIC KIDNEY DISEASE, UNSPECIFIED Qualifiers: Chronic kidney disease stage: stage 4 (severe) (2) Atrial fibrillation Assessment/Plan: Coreg BId discontinue ASA Eliquis Code(s): I48.91 - UNSPECIFIED ATRIAL FIBRILLATION Qualifiers: Atrial fibrillation type: paroxysmal Qualified Code(s): I48.0 - Paroxysmal atrial fibrillation (3) Diabetes Assessment/Plan: BG's regular insulin coverage HBA1C Code(s): E11.9 - TYPE 2 DIABETES MELLITUS WITHOUT COMPLICATIONS (4) Acute kidney failure Code(s): N17.9 - ACUTE KIDNEY FAILURE, UNSPECIFIED Qualifiers: Acute renal failure type: with other specified pathological lesion Qualified Code(s): N17.8 - Other acute kidney failure (5) Anemia Assessment/Plan: most likely a combination of mycrocitic and macrocytic continue Iron, add B12 CT scan of [facility] abdomen pending Code(s): D64.9 - ANEMIA, UNSPECIFIED (6) Pressure ulcer Code(s): L89.90 - PRESSURE ULCER OF UNSPECIFIED SITE, UNSPECIFIED STAGE Qualifiers: Pressure injury location: other site
[2019-05-17] MEDS: ATORVASTATIN CA 80 MG TABLET (FP) PO SCH (22:52)
[2019-05-17] MEDS: ZOLPIDEM TARTRATE 5 MG TABLET PO PRN (22:53)
[2019-05-18] MEDS ORDERED: PT OWN MED DRAWER 7, Y5N ONE ×2 (05:37→15:31)
[2019-05-18] MEDS: hydrALAZINE HCL 10 MG TABLET PO SCH ×2 (06:14→15:37)
[2019-05-18] MEDS: INSULIN SLIDING SCALE (NOVOLOG) 1 VIAL SQ SCH ×2 (06:15→12:02)
[2019-05-18] MEDS: SODIUM CHLORIDE 0.45% 1,000 ML IV SCH ×2 (06:18→15:36)
[2019-05-18 08:28] LABS: ALBUMIN 2.1 g/dl (3.4-5.0); BILIRUBIN,TOTAL 0.8 mg/dL (0.2-1); BLOOD UREA NITROGEN 74.3 mg/dL (7-18); CALCIUM 7.8 mg/dL (8.5-10.1); CREATININE 2.1 mg/dL (0.55-1.3); POTASSIUM 4.7 mmol/L (3.5-5.1); TOT PROT 5.2 g/dl (6.4-8.2)
[2019-05-18] MEDS: FERROUS SO4 325 MG TABLET (FP) PO SCH (11:22)
[2019-05-18] MEDS: CARVEDILOL 25 MG TABLET (FP) PO SCH (11:22)
[2019-05-18] MEDS: APIXABAN 5 MG TABLET PO SCH (11:22)
[2019-05-18] MEDS: PANTOPRAZOLE 40 MG TABLET (FP) PO SCH (11:22)
[2019-05-18 13:43] VITALS: TEMP 97.6
--- NOTE | 2019-05-18 15:38 | DS ---
Physical Examination Vital Signs: Vital Signs Temperature 97.6 F 05/18/19 10:00 Pulse Rate 73 05/18/19 10:00 Respiratory Rate 18 05/18/19 10:00 Blood Pressure 128/57 L 05/18/19 10:00 O2 Sat by Pulse Oximetry (%) 96 05/14/19 10:00 Constitutional: Yes: No Distress, Calm Eyes: Yes: Conjunctiva Clear, EOM Intact HENT: Yes: Atraumatic, Normocephalic Neck: Yes: Supple, Trachea Midline Cardiovascular: Yes: Regular Rate and Rhythm, S1, S2 Respiratory: Yes: Regular, CTA Bilaterally, On Nasal O2 Gastrointestinal: Yes: Normal Bowel Sounds, Soft. No: Hepatomegaly, Splenomegaly Renal/: Yes: WNL Breast(s): Yes: WNL Extremities: No: Calf Tenderness Edema: No Peripheral Pulses WNL: Yes Integumentary: Yes: Onychomycosis Neurological: Yes: Alert, Oriented Psychiatric: Yes: Alert, Oriented Labs: CBC, BMP 05/15/19 07:40 05/18/19 07:15 Discharge Summary Problems reviewed: Yes Reason For Visit: ACUTE RENAL FAILURE Current Active Problems Acute on chronic renal insufficiency (Acute) Anemia (Acute) Diabetes (Acute) Loss of appetite (Acute) Pressure ulcer (Acute) Systolic CHF (Acute) Procedures: Principal: iv hydration Other Procedures: Ct scan of the abdomen and pelvis Hospital Course: 74 yo male who was admitted for acute on chronic renal failure. He received iv hydration which improved his kidney function. He was found to have anemia for which he refused colonoscopy, endocospy work up. He had a CT scan of the abdomen and pelvis which was negative. Entresto, Lasix and ASA were discontinued. 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 He will be followed up by [facility] at home. Condition: Guarded - Instructions Disposition: HOME - Home Medications Comprehensive Discharge Medication List: Ambulatory Orders Allopurinol [Zyloprim -] 100 mg PO DAILY 02/03/18 Apixaban [Eliquis -] 5 mg PO BID 30 Days #60 tablet 03/30/18 Atorvastatin Ca [Lipitor] 80 mg PO HS tablet 03/30/18 Zolpidem Tartrate [Ambien Cr] 12.5 mg PO HS #7 tab.mphase MDD 1 05/15/19 Apixaban [Eliquis -] 5 mg PO BID tablet 05/18/19 Atorvastatin Ca [Lipitor] 80 mg PO HS tablet 05/18/19 Carvedilol [Coreg -] 25 mg PO BID tablet 05/18/19 Ferrous Sulfate [Feosol] 325 mg PO DAILY ud 05/18/19 Mupirocin Ointment [Bactroban Ointment (For Decolonization) -] 1 applic NS BID 30 Days applic 05/18/19 Pantoprazole Sodium [Protonix -] 40 mg PO DAILY 90 Days tablet.ec 05/18/19 Sitagliptin Phosphate [Januvia -] 25 mg PO DAILY@0700 90 Days #90 tab 05/18/19 hydrALAZINE HCL [Apresoline -] 10 mg PO TID tablet 05/18/19
[2019-05-18 15:40] VITALS: BP 146/68; PULSE 78
--- NOTE | 2019-05-18 17:02 | PN ---
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, Physician History of Present Illness: Pt seen and examined at bedside. He is awake and alert. He denies shortness of breath or lower ext edema. He is eager to go home. - Current Medication List Current Medications: Active Medications Apixaban (Eliquis -) 5 mg PO BID [facility] Last Admin: 05/18/19 11:22 Dose: 5 mg Atorvastatin Calcium (Lipitor -) 80 mg PO HS [facility] Last Admin: 05/17/19 22:52 Dose: 80 mg Carvedilol (Coreg -) 25 mg PO BID [facility] Last Admin: 05/18/19 11:22 Dose: 25 mg Ferrous Sulfate (Feosol -) 325 mg PO DAILY [facility] Last Admin: 05/18/19 11:22 Dose: 325 mg Hydralazine HCl (Apresoline -) 10 mg PO TID [facility] Last Admin: 05/18/19 15:37 Dose: 10 mg Sodium Chloride (1/2 Normal Saline) 1,000 mls @ 35 mls/hr IV ASDIR [facility] Last Admin: 05/18/19 15:36 Dose: Not Given Insulin Aspart (Novolog Vial Sliding Scale -) 1 vial SQ ACHS [facility]; Protocol Last Admin: 05/18/19 12:02 Dose: Not Given Mupirocin (Bactroban Ointment (For Decolonization) -) 1 applic NS BID [facility] Stop: 05/21/19 12:29 Pantoprazole Sodium (Protonix -) 40 mg PO DAILY [facility] Last Admin: 05/18/19 11:22 Dose: 40 mg Sitagliptin Phosphate (Januvia -) 25 mg PO DAILY@0700 [facility] Last Admin: 05/18/19 06:14 Dose: 25 mg Zolpidem Tartrate (Ambien -) 5 mg PO HS PRN PRN Reason: INSOMNIA Last Admin: 05/17/19 22:53 Dose: 5 mg - Objective Vital Signs: Vital Signs Temperature 97.6 F 05/18/19 10:00 Pulse Rate 78 05/18/19 15:39 Respiratory Rate 18 05/18/19 15:39 Blood Pressure 146/68 05/18/19 15:39 O2 Sat by Pulse Oximetry (%) 96 05/14/19 10:00 Constitutional: Yes: Calm Eyes: Yes: Conjunctiva Clear HENT: Yes: Atraumatic Cardiovascular: Yes: S1, S2 Respiratory: Yes: CTA Bilaterally Gastrointestinal: Yes: Normal Bowel Sounds, Soft Genitourinary: Yes: WNL Musculoskeletal: Yes: WNL Edema: No Integumentary: Yes: WNL Neurological: Yes: Oriented Psychiatric: Yes: Oriented Labs: CBC, BMP 05/15/19 07:40 05/18/19 07:15 Problem List - Problems (1) Diabetes Code(s): E11.9 - TYPE 2 DIABETES MELLITUS WITHOUT COMPLICATIONS (2) Acute kidney failure Code(s): N17.9 - ACUTE KIDNEY FAILURE, UNSPECIFIED Qualifiers: Acute renal failure type: with other specified pathological lesion Qualified Code(s): N17.8 - Other acute kidney failure (3) CHF (congestive heart failure) Code(s): I50.9 - HEART FAILURE, UNSPECIFIED Qualifiers: Heart failure type: combined systolic and diastolic Heart failure chronicity: chronic Qualified Code(s): I50.42 - 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) heart failure Assessment/Plan Current Medications Generic Name Dose Route Start Last Admin Trade Name Amy PRN Reason Stop Dose Admin Apixaban 5 mg 05/13/19 22:00 05/18/19 11:22 Eliquis - PO 5 mg BID MARY Administration Atorvastatin Calcium 80 mg 05/13/19 22:00 05/17/19 22:52 Lipitor - PO 80 mg HS MARY Administration Carvedilol 25 mg 05/13/19 22:00 05/18/19 11:22 Coreg - PO 25 mg BID MARY Administration Ferrous Sulfate 325 mg 05/14/19 10:00 05/18/19 11:22 Feosol - PO 325 mg DAILY MARY Administration Hydralazine HCl 10 mg 05/13/19 22:00 05/18/19 15:37 Apresoline - PO 10 mg TID MARY Administration Sodium Chloride 1,000 mls @ 35 mls/hr 05/17/19 14:04 05/18/19 15:36 1/2 Normal Saline IV Not Given ASDIR [facility] Insulin Aspart 1 vial 05/13/19 22:00 05/18/19 12:02 Novolog Vial Sliding Scale - SQ Not Given ACHS [facility] Protocol Mupirocin 1 applic 05/16/19 12:30 Bactroban Ointment (For Decolonization) - NS 05/21/19 12:29 BID [facility] Pantoprazole Sodium 40 mg 05/16/19 10:00 05/18/19 11:22 Protonix - PO 40 mg DAILY MARY Administration Sitagliptin Phosphate 25 mg 05/18/19 07:00 05/18/19 06:14 Januvia - PO 25 mg DAILY@0700 [facility] Administration Zolpidem Tartrate 5 mg 05/15/19 19:22 05/17/19 22:53 Ambien - PO 5 mg HS PRN Administration INSOMNIA Impression 1. CKD with acute component 2. hx CHF 3. CAD 4. DM 5. HTN 6. hyperlipidemia 7. BPH 8. pleural effusions 9. SPIKE Plan - renal function is improving - diuretics on hold - check weights and volume status daily - will need to follow with renal and cardio Dr Menezes
--- NOTE | 2019-05-18 18:42 | PN ---
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, Physician Chief Complaint: Events noted Not in distress History of Present Illness: Patient was seen and examined. Awake and alert. Chart was reviewed Denies chest pain, SOB or palpitations - Objective Vital Signs: Vital Signs Temperature 97.6 F 05/18/19 10:00 Pulse Rate 78 05/18/19 15:39 Respiratory Rate 18 05/18/19 15:39 Blood Pressure 146/68 05/18/19 15:39 O2 Sat by Pulse Oximetry (%) 96 05/14/19 10:00 Eyes: Yes: PERRL HENT: Yes: Atraumatic Neck: Yes: Supple Cardiovascular: Yes: Regular Rate and Rhythm, S1, S2 Respiratory: Yes: CTA Bilaterally Gastrointestinal: Yes: Normal Bowel Sounds, Soft. No: Tenderness Edema: No Labs: CBC, BMP 05/15/19 07:40 05/18/19 07:15 Problem List - Problems (1) Acute kidney failure Code(s): N17.9 - ACUTE KIDNEY FAILURE, UNSPECIFIED Qualifiers: Acute renal failure type: with other specified pathological lesion Qualified Code(s): N17.8 - Other acute kidney failure (2) [id number] kidney injury Code(s): N17.9 - ACUTE KIDNEY FAILURE, UNSPECIFIED; N18.9 - CHRONIC KIDNEY DISEASE, UNSPECIFIED Qualifiers: Chronic kidney disease stage: stage 4 (severe) (3) Anemia Code(s): D64.9 - ANEMIA, UNSPECIFIED (4) Atrial fibrillation Code(s): I48.91 - UNSPECIFIED ATRIAL FIBRILLATION Qualifiers: Atrial fibrillation type: paroxysmal Qualified Code(s): I48.0 - Paroxysmal atrial fibrillation (5) CHF (congestive heart failure) Code(s): I50.9 - HEART FAILURE, UNSPECIFIED Qualifiers: Heart failure type: combined systolic and diastolic Heart failure chronicity: chronic Qualified Code(s): I50.42 - 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) heart failure (6) Chronic left systolic heart failure Code(s): I50.22 - CHRONIC SYSTOLIC (CONGESTIVE) HEART FAILURE (7) Diabetes mellitus Code(s): E11.9 - TYPE 2 DIABETES MELLITUS WITHOUT COMPLICATIONS (8) Diastolic dysfunction without heart failure Code(s): I51.89 - OTHER ILL-DEFINED HEART DISEASES (9) S/P coronary artery stent placement Code(s): Z95.5 - PRESENCE OF CORONARY ANGIOPLASTY IMPLANT AND GRAFT (10) Status post placement of implantable loop recorder Code(s): Z95.818 - PRESENCE OF OTHER CARDIAC IMPLANTS AND GRAFTS (11) CAD (coronary artery disease) Code(s): I25.10 - ATHSCL HEART DISEASE OF [place] CORONARY ARTERY W/O ANG PCTRS Qualifiers: Coronary Disease-Associated Artery/Lesion type: [place] artery [place] vs. transplanted heart: [place] heart Associated angina: without angina Qualified Code(s): I25.10 - Atherosclerotic heart disease of [place] coronary artery without angina pectoris (12) HTN (hypertension) Code(s): I10 - ESSENTIAL (PRIMARY) HYPERTENSION Qualifiers: Hypertension type: essential hypertension Qualified Code(s): I10 - Essential (primary) hypertension (13) Hyperlipidemia Code(s): E78.5 - HYPERLIPIDEMIA, UNSPECIFIED Qualifiers: Hyperlipidemia type: pure hypercholesterolemia Qualified Code(s): E78.00 - Pure hypercholesterolemia, unspecified; E78.0 - Pure hypercholesterolemia Assessment/Plan 1. Acute on CKD 2. Anemia of CKD 3. History of neurocardiogenic syncope vs. vasovagal/situational syncope 4. CAD post ME post multi-vessel PCI/stent angina pectoris 5. Systolic/diastolic LV dysfunction with class 0 NYHA classification LV failure 6. Post Biotronik loop recorder implant 7. Paroxysmal atrial fibrillation with [id number] score of 5 on no A/C 8. HTN 9. Type 2 DM 10. Hypercholesterolemia 10. History of VATS pneumo-lysis, pleural biopsy and partial decortication for chronic loculated non-draining right pleural effusion PLAN: 1. Lasix and Entresto pending renal recovery. 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 Beau Chacon) for management 2. ASA stopped as CAD stable and continue Eliquis 5 mg BID 3. Continue Lipitor 80 mg QHS, Carvedilol 25 mg BID and Hydralazine 10 mg TID as hemodynamics tolerate 4. Monitor H/H and transfuse PRBC if indicated, maintain Hg equal or > 8.0, declined endoscopy 5. Patient will follow up with Dr. Beau Chacon upon discharge Dannie Coon MD
== END 2019-05-18 17:55 | disposition home or self-care (01) | DRG 683 ==
LOC: JER 12:50 → JERBED 15:49 → J8W 19:58
PROVIDERS: ADMIT Internal Medicine; ATTEND Internal Medicine
PROC: 30233N1 Transfusion of Nonautologous Red Blood Cells into Peripheral Vein, Percutaneous Approach (ICD-10-PCS; principal; 2019-05-14)
DX: N17.8 Other acute kidney failure (principal); I50.42 Chronic combined systolic (congestive) and diastolic (congestive) heart failure; I13.0 Hypertensive heart and chronic kidney disease with heart failure and stage 1 through stage 4 chronic kidney disease, or unspecified chronic kidney disease; I48.0 Paroxysmal atrial fibrillation; D50.9 Iron deficiency anemia, unspecified; R63.0 Anorexia; L89.156 Pressure-induced deep tissue damage of sacral region; D53.9 Nutritional anemia, unspecified; N40.0 Benign prostatic hyperplasia without lower urinary tract symptoms; N18.9 Chronic kidney disease, unspecified; Z98.61 Coronary angioplasty status; E78.5 Hyperlipidemia, unspecified; I25.119 Atherosclerotic heart disease of native coronary artery with unspecified angina pectoris; F41.8 Other specified anxiety disorders; K21.9 Gastro-esophageal reflux disease without esophagitis; E11.42 Type 2 diabetes mellitus with diabetic polyneuropathy; I25.5 Ischemic cardiomyopathy; E11.43 Type 2 diabetes mellitus with diabetic autonomic (poly)neuropathy; K31.84 Gastroparesis
CPT/HCPCS: 36415; 36430; 36511; 71045-TC-FY; 74176-TC; 76775-TC; 76856-TC; 80053; 81003; 82550; 82607; 82728; 82962; 83036; 83540; 83550; 83880; 84443; 84466; 84484; 85025; 85044; 86850; 86900; 86901; 86922; 87077; 87081; 87086; 87186; 93005; 93010; 97116-GP; 97161-GP; 99283-25; P9038; P9058; Q9967

== ENCOUNTER 2019-07-06 20:45 | Inpatient (IN) | payer OTHER, BC ==
[2019-07-06 21:16] VITALS: BMI 21.2
--- NOTE | 2019-07-06 21:42 | PDOC ---
History of Present Illness - General Chief Complaint: Shortness of Breath Stated Complaint: DIFF. BREATHING Time Seen by Provider: 07/06/19 21:41 - History of Present Illness Initial Comments: 07/06/19 21:41 Mr. Davis is a 74 yo male w/ pmh of DM, CKD, CHF, s/p VATS, on eliquis who presents for evaluation of 3 week history of worsening shortness of breath, weakness, and decreased appetite. Patient reports he was instructed to come in yesterday by costumer (Dr. Chacon) as well. The patient denies chest pain, and headache. Denies fever, chills, nausea, vomit , diarrhea and constipation. Denies dysuria, frequency, urgency and hematuria. Past History - Past Medical History Allergies/Adverse Reactions: Allergies Allergy/AdvReac Type Severity Reaction Status Date / Time pioglitazone HCl [From Actos] Allergy Severe CHF Verified 07/06/19 21:16 Home Medications: Ambulatory Orders Allopurinol [Zyloprim -] 100 mg PO DAILY 02/03/18 Apixaban [Eliquis -] 5 mg PO BID 30 Days #60 tablet 03/30/18 Atorvastatin Ca [Lipitor] 80 mg PO HS tablet 03/30/18 Zolpidem Tartrate [Ambien Cr] 12.5 mg PO HS #7 tab.mphase MDD 1 05/15/19 Apixaban [Eliquis -] 5 mg PO BID tablet 05/18/19 Atorvastatin Ca [Lipitor] 80 mg PO HS tablet 05/18/19 Carvedilol [Coreg -] 25 mg PO BID tablet 05/18/19 Ferrous Sulfate [Feosol] 325 mg PO DAILY ud 05/18/19 Mupirocin Ointment [Bactroban Ointment (For Decolonization) -] 1 applic NS BID 30 Days applic 05/18/19 Pantoprazole Sodium [Protonix -] 40 mg PO DAILY 90 Days tablet.ec 05/18/19 Sitagliptin Phosphate [Januvia -] 25 mg PO DAILY@0700 90 Days #90 tab 05/18/19 hydrALAZINE HCL [Apresoline -] 10 mg PO TID tablet 05/18/19 Anemia: No Asthma: No Cancer: Yes (skin) Cardiac Disorders: Yes (cad- cardiac cath, 6 stents total) CVA: No COPD: Yes CHF: Yes DVT: No Dementia: No Diabetes: Yes Dialysis: No (CKD) GI Disorders: No Disorders: No HTN: Yes Hypercholesterolemia: Yes Liver Disease: No Seizures: No Thyroid Disease: No - Surgical History Abdominal Surgery: Yes (HERNIA repair) Appendectomy: No Cardiac Surgery: Yes (STENTS , 07/2016) Cholecystectomy: No Lung Surgery: Yes (bronchoscopy 03/17, right chest pleural catheter) Neurologic Surgery: No Orthopedic Surgery: No - Immunization History Td Vaccination: Yes Immunization Up to Date: Yes - Psycho Social/Smoking Cessation Hx Smoking Status: No Smoking History: Never smoked Have you smoked in the past 12 months: No Number of Cigarettes Smoked Daily: 0 If you are a former smoker, when did you quit?: 35yrs ago 'Breaking Loose' booklet given: 08/15/15 Hx Alcohol Use: No Drug/Substance Use Hx: No Substance Use Type: None Hx Substance Use Treatment: No Review of Systems - Review of Systems Comments:: 07/06/19 21:41 GENERAL/CONSTITUTIONAL: +Generalized weakness for 3 weeks. Patient unable to ambulate easily. No fever or chills. HEAD, EYES, EARS, NOSE AND THROAT: No change in vision. No ear pain or discharge. No sore throat. CARDIOVASCULAR: +Increasing dyspnea on exertion and oxygen requirement. No chest pain RESPIRATORY: No cough, wheezing, or hemoptysis. GASTROINTESTINAL: No nausea, vomiting, diarrhea or constipation. GENITOURINARY: No dysuria, frequency, or change in urination. MUSCULOSKELETAL: No joint or muscle swelling or pain. No neck or back pain. SKIN: No rash NEUROLOGIC: No headache, vertigo, loss of consciousness, or change in strength/ sensation. ENDOCRINE: No increased thirst. No abnormal weight change HEMATOLOGIC/LYMPHATIC: No anemia, easy bleeding, or history of blood clots. ALLERGIC/IMMUNOLOGIC: No hives or skin allergy. *Physical Exam - Vital Signs Last Vital Signs Temp Pulse Resp BP Pulse Ox 98.6 F 81 20 165/88 95 07/06/19 20:50 07/06/19 20:50 07/06/19 20:50 07/06/19 20:50 07/06/19 20:50 - Physical Exam 07/06/19 21:42 GENERAL: +On 4L O2. Awake, alert, and fully oriented HEAD: No signs of trauma, normocephalic, atraumatic EYES: PERRLA, EOMI, sclera anicteric, conjunctiva clear ENT: Auricles normal inspection, hearing grossly normal, nares patent, oropharynx clear without exudates. Moist mucosa NECK: Normal ROM, supple, no lymphadenopathy, JVD, or masses LUNGS: +Coarse lung sounds appreciated on R. On 4L O2. No distress, speaks full sentences HEART: Regular rate and rhythm, normal S1 and S2, no murmurs, rubs or gallops, peripheral pulses normal and equal bilaterally. ABDOMEN: Soft, nontender, normoactive bowel sounds. No guarding, no rebound. No masses EXTREMITIES: Normal inspection, Normal range of motion, no edema. No clubbing or cyanosis. NEUROLOGICAL: Cranial nerves II through XII grossly intact. Normal speech, normal gait, no focal sensorimotor deficits SKIN: Warm, Dry, normal turgor, no rashes or lesions noted. ED Treatment Course - LABORATORY CBC & Chemistry Diagram: 07/06/19 23:00 07/06/19 23:00 Medical Decision Making - Medical Decision Making 07/07/19 00:18 Mr. Davis is a 74 yo male w/ pmh as described who presents for evaluation of symptoms concerning for fluid overload vs. cardiac process vs. lung process. Patient evaluated with labs as below and found to be severely hypervolemic. Patient given lasix and will be admitted for further care. 07/07/19 00:23 EKG unchanged from prior. Normal sinus rhythm noted. Left axis deviation and t- Laboratory Results - last 24 hr 07/06/19 07/06/19 07/06/19 23:00 23:00 23:00 WBC 5.1 RBC 3.09 L Hgb 9.3 L Hct 29.7 L MCV 95.9 MCH 30.1 MCHC 31.4 L RDW 17.4 H Plt Count 152 D MPV 8.9 Absolute Neuts (auto) 3.7 Neutrophils % 72.6 Lymphocytes % 17.3 Monocytes % 6.2 Eosinophils % 3.1 Basophils % 0.8 Nucleated RBC % 0 PT with INR 15.00 H INR 1.27 H PTT (Actin FS) 46.0 H Sodium 144 Potassium 5.2 H Chloride 113 H Carbon Dioxide 25 Anion Gap 6 L BUN 45.4 H Creatinine 1.7 H Est GFR (CKD-EPI)AfAm 44.41 Est GFR (CKD-EPI)NonAf 38.32 Random Glucose 179 H Calcium 8.0 L Total Bilirubin 0.8 AST 15 ALT 14 B-Natriuretic Peptide 27758.8 H Total Protein 6.5 Albumin 2.3 L TSH 1.56 D Discharge - Discharge Information Problems reviewed: Yes Clinical Impression/Diagnosis: Shortness of breath Hypervolemia Qualifiers: Hypervolemia type: unspecified Qualified Code(s): E87.70 - Fluid overload, unspecified Condition: Fair - Admission Yes - Follow up/Referral Referrals: Siobhan Mondragon MD [Primary Care Provider] - - Patient Discharge Instructions - Post Discharge Activity
--- NOTE | 2019-07-06 21:43 | PDOC ---
Attending Attestation - Resident Resident Name: Mikal Mac - ED Attending Attestation I have performed the following: I have examined & evaluated the patient, The case was reviewed & discussed with the resident, I agree w/resident's findings & plan - HPI HPI: 07/07/19 00:27 see resident hpi - Physicial Exam PE: 07/07/19 00:27 see resident exam - Medical Decision Making 07/07/19 00:27 74-year-old male complaining of shortness of breath and generalized weakness Chest x-ray and labs consistent with acute CHF exacerbation Patient given Lasix 40 mg IV in the emergency department EKG shows no significant changes from previous Troponin within normal limits We will admit to medical service for further management
[2019-07-06 23:20] LABS: BASO % 0.8 % (0-2.0); EOS % 3.1 % (0-4.5); HEMATOCRIT 29.7 % (35.4-49); HEMOGLOBIN 9.3 GM/dL (11.7-16.9); LYMPH % 17.3 % (8-40); MCH 30.1 pg (25.7-33.7); MCHC 31.4 g/dl (32.0-35.9); MEAN CELL VOLUME 95.9 fl (80-96); MEAN PLT VOLUME 8.9 fl (7.5-11.1); MONO % 6.2 % (3.8-10.2); NEUT % 72.6 % (42.8-82.8); PLATELET COUNT 152 K/MM3 (134-434); RBC 3.09 M/mm3 (4.00-5.60); RDW 17.4 % (11.9-15.9); WHITE BLOOD COUNT 5.1 K/mm3 (4.0-10.0)
[2019-07-06 23:32] LABS: INR 1.27 (0.83-1.09)
[2019-07-07 00:07] LABS: ALBUMIN 2.3 g/dl (3.4-5.0); BILIRUBIN,TOTAL 0.8 mg/dL (0.2-1); BLOOD UREA NITROGEN 45.4 mg/dL (7-18); CREATININE 1.7 mg/dL (0.55-1.3); N-TERMINAL BNP 19196.8 pg/ml (5-450); POTASSIUM 5.2 mmol/L (3.5-5.1); TOT PROT 6.5 g/dl (6.4-8.2)
[2019-07-07] MEDS ORDERED: FUROSEMIDE 40 MG/4 ML INJECTABLE VIAL IVPUSH ONE ×2 (00:18→06:46)
[2019-07-07] MEDS ORDERED: FUROSEMIDE 40 MG/4 ML INJECTABLE VIAL ONE (01:08)
[2019-07-07] MEDS ORDERED: INSULIN SLIDING SCALE (NOVOLOG) 1 VIAL SQ SCH (07:00)
[2019-07-07] MEDS: PANTOPRAZOLE 40 MG TABLET PO SCH (09:58)
[2019-07-07] MEDS: APIXABAN 5 MG TABLET PO SCH ×2 (09:58→21:13)
[2019-07-07] MEDS: CARVEDILOL 25 MG TABLET (FP) PO SCH ×2 (09:58→21:12)
[2019-07-07] MEDS: hydrALAZINE HCL 25 MG TABLET (FP) PO SCH ×2 (09:58→21:12)
[2019-07-07] MEDS: ALLOPURINOL 100 MG TABLET (FP) PO SCH (09:58)
--- NOTE | 2019-07-07 11:34 | HP ---
Admitting History and Physical - Admission Chief Complaint: dyspnea History of Present Illness: 4 yo male with PMH of CRF, DM type 2, CAD, CHF, s/p right VATS for chronic loculated pleural effusion presntedto ER with complaint of increased shortness of breath. Patient has not been feeling well since the beginning of the year when he developed unstable angina. Symptoms improved with administration of Inderal, he receives for his chronic anemia Procrit. 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: Peripheral Neuropathy Cardiovascular: Yes: AFIB, CAD (prior anterolateral CO 03/1995 w/ PCI of LAD & ramus, PCI of LAD 05/1996 (with 100% occluded ramus and patent RCA), rotoblator & PCI w/ Xience stent prox LAD & prox/mid Cfx 07/30/16), CHF, Hyperlipdemia, CO ( anterolateral CO 1994), Other (CHF) Pulmonary: Yes: O2 Dependent, Pneumonia (03/2016), Other (Chronic right pleural effusion S/p VATS procedure) Gastrointestinal: Yes: GERD Renal/: Yes: Renal Inusuff, BPH, Renal Calculi Heme/Onc: Yes: Anemia Psych: Yes: Anxiety, Depression Musculoskeletal: Yes: Osteoarthritis Rheumatology: Yes: Gout Endocrine: Yes: Diabetes Mellitus (with peripheral neuropathy), Other ( Hypogonadism, nodular goiter) - Past Surgical History Past Surgical History: Yes: Cataract Removal (bilateral), Hernia Repair ( umbillical) - Smoking History Smoking history: Never smoked Have you smoked in the past 12 months: No Aproximately how many cigarettes per day: 0 If you are a former smoker, when did you quit?: 35yrs ago - Alcohol/Substance Use Hx Alcohol Use: No History of Substance Use: reports: None - Social History ADL: Independent History of Recent Travel: No Home Medications - Allergies Allergies/Adverse Reactions: Allergies Allergy/AdvReac Type Severity Reaction Status Date / Time pioglitazone HCl [From Actos] Allergy Severe CHF Verified 07/06/19 21:16 - Home Medications Home Medications: Ambulatory Orders Allopurinol [Zyloprim -] 100 mg PO DAILY 02/03/18 Apixaban [Eliquis -] 5 mg PO BID 30 Days #60 tablet 03/30/18 Atorvastatin Ca [Lipitor] 80 mg PO HS tablet 10/29/18 Zolpidem Tartrate [Ambien Cr] 12.5 mg PO HS #7 tab.mphase MDD 1 05/15/19 Apixaban [Eliquis -] 5 mg PO BID tablet 05/18/19 Atorvastatin Ca [Lipitor] 80 mg PO HS tablet 05/18/19 Carvedilol [Coreg -] 25 mg PO BID tablet 05/18/19 Ferrous Sulfate [Feosol] 325 mg PO DAILY ud 05/18/19 Mupirocin Ointment [Bactroban Ointment (For Decolonization) -] 1 applic NS BID 30 Days applic 05/18/19 Pantoprazole Sodium [Protonix -] 40 mg PO DAILY 90 Days tablet.ec 05/18/19 Sitagliptin Phosphate [Januvia -] 25 mg PO DAILY@0700 90 Days #90 tab 05/18/19 hydrALAZINE HCL [Apresoline -] 10 mg PO TID tablet 05/18/19 Review of Systems - Review of Systems Constitutional: reports: Lethargy, Weakness Eyes: reports: No Symptoms HENT: reports: No Symptoms Neck: reports: No Symptoms Cardiovascular: reports: Shortness of Breath. denies: Chest Pain, Edema Respiratory: reports: Orthopnea, SOB, SOB on Exertion. denies: Wheezing Gastrointestinal: denies: Abdominal Pain Genitourinary: reports: No Symptoms Breasts: reports: No Symptoms Reported Musculoskeletal: reports: Muscle Weakness Neurological: reports: Weakness Psychiatric: reports: Depression Physical Examination Vital Signs: Vital Signs Temperature 98.0 F 07/07/19 09:33 Pulse Rate 80 07/07/19 09:33 Respiratory Rate 22 H 07/07/19 09:33 Blood Pressure 152/80 07/07/19 09:33 O2 Sat by Pulse Oximetry (%) 96 07/07/19 09:33 Constitutional: Yes: Cachectic, Mild Distress HENT: Yes: Atraumatic, Normocephalic Neck: Yes: Supple, Trachea Midline Cardiovascular: Yes: Regular Rate and Rhythm Respiratory: Yes: Orthopnea. No: Rhonchi, SOB Gastrointestinal: Yes: Normal Bowel Sounds, Soft, Abdomen, Obese. No: Hepatomegaly, Splenomegaly Breast(s): Yes: WNL Musculoskeletal: Yes: Muscle Weakness Extremities: No: Calf Tenderness Edema: No Peripheral Pulses WNL: Yes Integumentary: Yes: Pressure Ulcer (stage 1 [place] krystle) Neurological: Yes: Alert, Oriented Psychiatric: Yes: Alert, Oriented Labs: CBC, BMP 07/06/19 23:00 07/06/19 23:00 Imaging - Results Chest X-ray: Other (bi;aterla pleural effusn, right rena then the left, pulmonary edema present) Problem List - Problems (1) Pulmonary edema Assessment/Plan: Lasix 40 mg i v bid Coreg, Eliquis, Hydralazine,Inderal cardiaz enzymes EKG Code(s): J81.1 - CHRONIC PULMONARY EDEMA (2) Shortness of breath Assessment/Plan: Lasix, strict I/O, weights Code(s): R06.02 - SHORTNESS OF BREATH (3) CKD (chronic kidney disease) stage 3, GFR 30-59 ml/min Code(s): N18.3 - CHRONIC KIDNEY DISEASE, STAGE 3 (MODERATE) (4) Atrial fibrillation Assessment/Plan: Coreg and eliquis Code(s): I48.91 - UNSPECIFIED ATRIAL FIBRILLATION Qualifiers: Atrial fibrillation type: paroxysmal Qualified Code(s): I48.0 - Paroxysmal atrial fibrillation (5) Type 2 diabetes mellitus with nephropathy Code(s): E11.21 - TYPE 2 DIABETES MELLITUS WITH DIABETIC NEPHROPATHY (6) Coronary artery disease Code(s): I25.10 - ATHSCL HEART DISEASE OF [place] CORONARY ARTERY W/O ANG PCTRS (7) Anemia in chronic kidney disease Assessment/Plan: Procrit as needed and as per nephrology Code(s): N18.9 - CHRONIC KIDNEY DISEASE, UNSPECIFIED; D63.1 - ANEMIA IN CHRONIC KIDNEY DISEASE
--- NOTE | 2019-07-07 11:38 | EKG ---
Test Reason : Blood Pressure : / mmHG Vent. Rate : 083 BPM Atrial Rate : 083 BPM P-R Int : 182 ms QRS Dur : 136 ms QT Int : 410 ms P-R-T Axes : 039 -52 100 degrees QTc Int : 481 ms NORMAL SINUS RHYTHM LEFT AXIS DEVIATION NON-SPECIFIC INTRA-VENTRICULAR CONDUCTION BLOCK T WAVE ABNORMALITY, CONSIDER LATERAL ISCHEMIA ABNORMAL ECG WHEN COMPARED WITH ECG OF 13-MAY-2019 17:33, MINIMAL CRITERIA FOR ANTEROSEPTAL INFARCT ARE NO LONGER PRESENT Confirmed by Emerson Bledsoe MD ([id number]) on 07/07/2019 11:37:38 AM Referred By: Confirmed By:Emerson Bledsoe MD
[2019-07-07] MEDS: INSULIN SLIDING SCALE (NOVOLOG) 1 VIAL SQ SCH ×3 (11:55→21:14)
[2019-07-07] MEDS: ISOSORBIDE DINITRATE 10 MG TABLET (FP) PO SCH ×2 (13:03→18:00)
--- NOTE | 2019-07-07 13:36 | CON.CARD ---
Consult Consult Specialty:: Cardiology Referred by:: Siobhan Mondragon MD Reason for Consultation:: CAD s/p multivessel PCI, ischemic cardiomyopathy - History of Present Illness Chief Complaint: Dyspnea History of Present Illness: 74M former smoker with h/o CAD s/p multivessel stents, PAF on eliquis, DM, HTN, systolic dysfunction with pulm HTN, chronic loculated right pleural effusion s/ p pleur-x which stopped draining despite TPA and subsequently removed followed by right VATS, pneumolysis, pleural biopsy and partial decortication, CKD, h/o hernia repair presented to ER with complaint of increased shortness of breath, orthopnea, weakness, and decreased appetite found to have congestion and right recurrent pleural effusion on cxr. He denies chest pain, palpitations, near or true syncope, orthopnea, PND or worsening LE edema. 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: Peripheral Neuropathy Cardio/Vascular: Yes: AFIB, CAD (prior anterolateral [place] 03/1995 w/ PCI of LAD & ramus, PCI of LAD 05/1996 (with 100% occluded ramus and patent RCA), rotoblator & PCI w/ Xience stent prox LAD & prox/mid Cfx 07/30/16), CHF, Hyperlipdemia, [place] ( anterolateral [place] 1994), Other (CHF) Pulmonary: Yes: O2 Dependent, Pneumonia (03/2016), Other (Chronic right pleural effusion S/p VATS procedure) Gastrointestinal: Yes: GERD Renal/: Yes: Renal Inusuff, BPH, Renal Calculi Psych: Yes: Anxiety, Depression Musculoskeletal: Yes: Osteoarthritis Rheumatology: Yes: Gout Endocrine: Yes: Diabetes Mellitus (with peripheral neuropathy), Other ( Hypogonadism, nodular goiter) - Past Surgical History Past Surgical History: Yes: Cataract Removal (bilateral), Hernia Repair ( umbillical) - Alcohol/Substance Use Hx Alcohol Use: No History of Substance Use: reports: None - Smoking History Smoking history: Never smoked Have you smoked in the past 12 months: No Aproximately how many cigarettes per day: 0 If you are a former smoker, when did you quit?: 35yrs ago - Social History ADL: Independent History of Recent Travel: No Home Medications - Allergies Allergies/Adverse Reactions: Allergies Allergy/AdvReac Type Severity Reaction Status Date / Time pioglitazone HCl [From Actos] Allergy Severe CHF Verified 07/06/19 21:16 - Home Medications Home Medications: Ambulatory Orders Allopurinol [Zyloprim -] 100 mg PO DAILY 02/03/18 Apixaban [Eliquis -] 5 mg PO BID 30 Days #60 tablet 03/30/18 Atorvastatin Ca [Lipitor] 80 mg PO HS tablet 03/30/18 Zolpidem Tartrate [Ambien Cr] 12.5 mg PO HS #7 tab.mphase MDD 1 05/15/19 Apixaban [Eliquis -] 5 mg PO BID tablet 05/18/19 Atorvastatin Ca [Lipitor] 80 mg PO HS tablet 05/18/19 Carvedilol [Coreg -] 25 mg PO BID tablet 05/18/19 Ferrous Sulfate [Feosol] 325 mg PO DAILY ud 05/18/19 Mupirocin Ointment [Bactroban Ointment (For Decolonization) -] 1 applic NS BID 30 Days applic 05/18/19 Pantoprazole Sodium [Protonix -] 40 mg PO DAILY 90 Days tablet.ec 05/18/19 Sitagliptin Phosphate [Januvia -] 25 mg PO DAILY@0700 90 Days #90 tab 05/18/19 hydrALAZINE HCL [Apresoline -] 10 mg PO TID tablet 05/18/19 Review of Systems - Review of Systems Cardiovascular: reports: Shortness of Breath Respiratory: reports: Exercise Intolerance, Orthopnea, SOB, SOB on Exertion Vital Signs: Vital Signs Temperature 98.1 F 07/07/19 12:00 Pulse Rate 76 07/07/19 12:00 Respiratory Rate 20 07/07/19 12:00 Blood Pressure 131/69 07/07/19 12:00 O2 Sat by Pulse Oximetry (%) 98 07/07/19 12:00 Constitutional: Yes: No Distress, Calm, Thin Neck: Yes: Supple Respiratory: Yes: Regular, Diminished, On Nasal O2 Gastrointestinal: Yes: Soft, Hypoactive Bowel Sounds Cardiovascular: Yes: Regular Rate and Rhythm JVD: No Carotid Bruit: No Heart Sounds: Yes: S1, S2 Murmur: Yes: Systolic Murmur, Grade 1 Edema: No - Other Data Labs, Other Data: CBC, BMP 07/06/19 23:00 INR, PTT INR 1.27 (0.83-1.09) H 07/06/19 23:00 Troponin, BNP 07/06/19 07/07/19 23:00 11:28 Troponin I 0.04 0.11 H B-Natriuretic Peptide 33911.8 H Troponin, BNP 07/06/19 07/07/19 23:00 11:28 Troponin I 0.04 0.11 H B-Natriuretic Peptide 87322.8 H NSR @ 83 LAD, IVCD, lateral T wave changes Echo: Report Reviewed Ejection Fraction %: LVEF > or = 40 % Imaging - Results Chest X-ray: Report Reviewed (New congestion and right effusion with ATX) Problem List - Problems (1) Anemia in chronic kidney disease Code(s): N18.9 - CHRONIC KIDNEY DISEASE, UNSPECIFIED; D63.1 - ANEMIA IN CHRONIC KIDNEY DISEASE Qualifiers: Chronic kidney disease stage: stage 2 (mild) Qualified Code(s): N18.2 - Chronic kidney disease, stage 2 (mild); D63.1 - Anemia in chronic kidney disease (2) Coronary artery disease Code(s): I25.10 - ATHSCL HEART DISEASE OF [place] CORONARY ARTERY W/O ANG PCTRS Qualifiers: Coronary Disease-Associated Artery/Lesion type: [place] artery [place] vs. transplanted heart: [place] heart Associated angina: without angina Qualified Code(s): I25.10 - Atherosclerotic heart disease of [place] coronary artery without angina pectoris (3) Pulmonary edema Code(s): J81.1 - CHRONIC PULMONARY EDEMA Qualifiers: Chronicity: acute Qualified Code(s): J81.0 - Acute pulmonary edema (4) Shortness of breath Code(s): R06.02 - SHORTNESS OF BREATH (5) Atrial fibrillation Code(s): I48.91 - UNSPECIFIED ATRIAL FIBRILLATION Qualifiers: Atrial fibrillation type: paroxysmal Qualified Code(s): I48.0 - Paroxysmal atrial fibrillation (6) CHF (congestive heart failure) Code(s): I50.9 - HEART FAILURE, UNSPECIFIED Qualifiers: Heart failure type: combined systolic and diastolic Heart failure chronicity: chronic Qualified Code(s): I50.42 - 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) heart failure (7) CKD (chronic kidney disease) stage 3, GFR 30-59 ml/min Code(s): N18.3 - CHRONIC KIDNEY DISEASE, STAGE 3 (MODERATE) (8) Pulmonary hypertension Code(s): I27.2 - OTHER SECONDARY PULMONARY HYPERTENSION * DO NOT USE * (9) S/P coronary artery stent placement Code(s): Z95.5 - PRESENCE OF CORONARY ANGIOPLASTY IMPLANT AND GRAFT (10) Status post placement of implantable loop recorder Code(s): Z95.818 - PRESENCE OF OTHER CARDIAC IMPLANTS AND GRAFTS (11) Type 2 diabetes mellitus with nephropathy Code(s): E11.21 - TYPE 2 DIABETES MELLITUS WITH DIABETIC NEPHROPATHY (12) Hyperlipidemia Code(s): E78.5 - HYPERLIPIDEMIA, UNSPECIFIED Qualifiers: Hyperlipidemia type: pure hypercholesterolemia Qualified Code(s): E78.00 - Pure hypercholesterolemia, unspecified; E78.0 - Pure hypercholesterolemia (13) Pleural effusion Code(s): J90 - PLEURAL EFFUSION, NOT ELSEWHERE CLASSIFIED Assessment/Plan 10/31/2017 Echo: Low normal LV fxn, normal RV size and fxn tr TR 1. Acute on chronic diastolic failure with pleural effusion 2. CKD 3. Anemia of CKD 4. History of neurocardiogenic syncope vs. vasovagal/situational syncope 5. CAD post [place] post multi-vessel PCI/demand ischemia 6. Post Biotronik loop recorder implant 7. Paroxysmal atrial fibrillation with [id number] score of 5 on no A/C 8. HTN 9. Type 2 DM 10. Hypercholesterolemia 10. History of VATS pneumo-lysis, pleural biopsy and partial decortication for chronic loculated non-draining right pleural effusion PLAN: 1. Trend trops to document peak 2. IV diuresis with monitor diuretic response, renal fxn and electrolytes 3. Continue Eliquis 5 bid with GI protection, Lipitor 80 qd, carvedilol 25 bid, hydralazine 25 bid, isordil 10 tid as hemodynamics tolerate 4. Monitor H/H and transfuse PRBC if indicated, maintain Hg equal or > 8.0, previously declined endoscopy 5. Patient will follow up with Dr. Beau Chacon upon discharge, review outpatient records and most recent echo 6. Thank you for consultative opportunity
[2019-07-07] MEDS: FUROSEMIDE 40 MG/4 ML INJECTABLE VIAL IVPUSH SCH (13:57)
[2019-07-07 14:21] LABS: ALBUMIN 2.2 g/dl (3.4-5.0); BLOOD UREA NITROGEN 47.5 mg/dL (7-18); CALCIUM 8.2 mg/dL (8.5-10.1); CREATININE 1.7 mg/dL (0.55-1.3); POTASSIUM 4.2 mmol/L (3.5-5.1); TOT PROT 6.1 g/dl (6.4-8.2)
[2019-07-07] MEDS: ATORVASTATIN CA 80 MG TABLET (FP) PO SCH (21:13)
[2019-07-07 21:18] LABS: ALBUMIN 2.1 g/dl (3.4-5.0); BILIRUBIN,TOTAL 1.1 mg/dL (0.2-1); BLOOD UREA NITROGEN 48.8 mg/dL (7-18); CALCIUM 8.1 mg/dL (8.5-10.1); CREATININE 1.8 mg/dL (0.55-1.3); POTASSIUM 4.2 mmol/L (3.5-5.1); TOT PROT 5.7 g/dl (6.4-8.2)
[2019-07-08] MEDS: INSULIN SLIDING SCALE (NOVOLOG) 1 VIAL SQ SCH ×4 (06:28→21:33)
[2019-07-08] MEDS: FUROSEMIDE 40 MG/4 ML INJECTABLE VIAL IVPUSH SCH ×2 (06:37→14:10)
[2019-07-08] MEDS: ISOSORBIDE DINITRATE 10 MG TABLET (FP) PO SCH ×3 (08:00→18:06)
[2019-07-08] MEDS: PANTOPRAZOLE 40 MG TABLET PO SCH (09:48)
[2019-07-08] MEDS: hydrALAZINE HCL 25 MG TABLET (FP) PO SCH ×2 (09:48→22:08)
[2019-07-08] MEDS: APIXABAN 5 MG TABLET PO SCH ×2 (09:48→22:08)
[2019-07-08] MEDS: CARVEDILOL 25 MG TABLET (FP) PO SCH ×2 (09:48→22:08)
[2019-07-08] MEDS: ALLOPURINOL 100 MG TABLET (FP) PO SCH (09:48)
--- NOTE | 2019-07-08 11:27 | PN ---
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, Physician History of Present Illness: Shortness of breath, orthopnea, weakness, and decreased appetite found to have congestion and right recurrent pleural effusion on cxr, symptoms improving with diuresis. 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 - [facility] - Current Medication List Current Medications: Active Medications Allopurinol (Zyloprim -) 100 mg PO DAILY [facility] Last Admin: 07/08/19 09:48 Dose: 100 mg Apixaban (Eliquis -) 5 mg PO BID [facility] Last Admin: 07/08/19 09:48 Dose: 5 mg Atorvastatin Calcium (Lipitor -) 80 mg PO HS [facility] Last Admin: 07/07/19 21:13 Dose: 80 mg Carvedilol (Coreg -) 25 mg PO BID [facility] Last Admin: 07/08/19 09:48 Dose: 25 mg Furosemide (Lasix Injection -) 40 mg IVPUSH BID@0600,1400 [facility] Last Admin: 07/08/19 06:37 Dose: 40 mg Hydralazine HCl (Apresoline -) 25 mg PO BID [facility] Last Admin: 07/08/19 09:48 Dose: 25 mg Insulin Aspart (Novolog Vial Sliding Scale -) 1 vial SQ [facility]; Protocol Last Admin: 07/08/19 06:28 Dose: Not Given Isosorbide Dinitrate (Isordil -) 10 mg PO TIDISORDIL [facility] Last Admin: 07/07/19 13:03 Dose: 10 mg Pantoprazole Sodium (Protonix -) 40 mg PO DAILY [facility] Last Admin: 07/08/19 09:48 Dose: 40 mg - Objective Vital Signs: Vital Signs Temperature 98.0 F 07/08/19 10:00 Pulse Rate 76 07/08/19 10:00 Respiratory Rate 22 H 07/08/19 10:00 Blood Pressure 140/68 07/08/19 10:00 O2 Sat by Pulse Oximetry (%) 96 07/07/19 21:00 Constitutional: Yes: No Distress, Calm, Thin Neck: Yes: Supple Cardiovascular: Yes: Regular Rate and Rhythm Respiratory: Yes: Regular, Diminished, On Nasal O2 Gastrointestinal: Yes: Normal Bowel Sounds, Soft Edema: No Labs: CBC, BMP 07/06/19 23:00 07/07/19 20:15 INR, PTT INR 1.27 (0.83-1.09) H 02/04/20 23:00 - ....Imaging EKG: Report Reviewed (Tele: NSR) Problem List - Problems (1) Anemia in chronic kidney disease Code(s): N18.9 - CHRONIC KIDNEY DISEASE, UNSPECIFIED; D63.1 - ANEMIA IN CHRONIC KIDNEY DISEASE Qualifiers: Chronic kidney disease stage: stage 2 (mild) Qualified Code(s): N18.2 - Chronic kidney disease, stage 2 (mild); D63.1 - Anemia in chronic kidney disease (2) Coronary artery disease Code(s): I25.10 - ATHSCL HEART DISEASE OF [place] CORONARY ARTERY W/O ANG PCTRS Qualifiers: Coronary Disease-Associated Artery/Lesion type: [place] artery [place] vs. transplanted heart: [place] heart Associated angina: without angina Qualified Code(s): I25.10 - Atherosclerotic heart disease of [place] coronary artery without angina pectoris (3) Pulmonary edema Code(s): J81.1 - CHRONIC PULMONARY EDEMA Qualifiers: Chronicity: acute Qualified Code(s): J81.0 - Acute pulmonary edema (4) Shortness of breath Code(s): R06.02 - SHORTNESS OF BREATH (5) Atrial fibrillation Code(s): I48.91 - UNSPECIFIED ATRIAL FIBRILLATION Qualifiers: Atrial fibrillation type: paroxysmal Qualified Code(s): I48.0 - Paroxysmal atrial fibrillation (6) CHF (congestive heart failure) Code(s): I50.9 - HEART FAILURE, UNSPECIFIED Qualifiers: Heart failure type: combined systolic and diastolic Heart failure chronicity: chronic Qualified Code(s): I50.42 - 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) heart failure (7) CKD (chronic kidney disease) stage 3, GFR 30-59 ml/min Code(s): N18.3 - CHRONIC KIDNEY DISEASE, STAGE 3 (MODERATE) (8) Pulmonary hypertension Code(s): I27.2 - OTHER SECONDARY PULMONARY HYPERTENSION * DO NOT USE * (9) S/P coronary artery stent placement Code(s): Z95.5 - PRESENCE OF CORONARY ANGIOPLASTY IMPLANT AND GRAFT (10) Status post placement of implantable loop recorder Code(s): Z95.818 - PRESENCE OF OTHER CARDIAC IMPLANTS AND GRAFTS (11) Type 2 diabetes mellitus with nephropathy Code(s): E11.21 - TYPE 2 DIABETES MELLITUS WITH DIABETIC NEPHROPATHY (12) Hyperlipidemia Code(s): E78.5 - HYPERLIPIDEMIA, UNSPECIFIED Qualifiers: Hyperlipidemia type: pure hypercholesterolemia Qualified Code(s): E78.00 - Pure hypercholesterolemia, unspecified; E78.0 - Pure hypercholesterolemia (13) Pleural effusion Code(s): J90 - PLEURAL EFFUSION, NOT ELSEWHERE CLASSIFIED Assessment/Plan 10/31/2017 Echo: Low normal LV fxn, normal RV size and fxn tr TR 1. Acute on chronic diastolic failure with pleural effusion 2. CKD 3. Anemia of CKD 4. History of neurocardiogenic syncope vs. vasovagal/situational syncope 5. CAD post [place] post multi-vessel PCI/demand ischemia 6. Post Biotronik loop recorder implant 7. Paroxysmal atrial fibrillation with [id number] score of 5 on no A/C 8. HTN 9. Type 2 DM 10. Hypercholesterolemia 11. History of VATS pneumo-lysis, pleural biopsy and partial decortication for chronic loculated non-draining right pleural effusion PLAN: 1. Trops have plateaued 2. IV diuresis with monitor diuretic response, renal fxn and electrolytes 3. Continue Eliquis 5 bid with GI protection, Lipitor 80 qd, carvedilol 25 bid, hydralazine 25 bid, isordil 10 tid as hemodynamics tolerate 4. Monitor H/H and transfuse PRBC if indicated, maintain Hg equal or > 8.0, previously declined endoscopy, empiric Protonix 5. Patient will follow up with Dr. Beau Chacon upon discharge, review outpatient records and most recent echo
[2019-07-08] MEDS ORDERED: PT OWN MED DRAWER 7, Y5N ONE (13:39)
--- NOTE | 2019-07-08 18:09 | PN ---
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, Physician Chief Complaint: The patient is examined in bed. HE is less dyspneic, can tolerate supine and there is no cough, shortness of breath, palpitations or chest pain. HE complains of constipation History of Present Illness: 74 yo male who was admitted for shortness of breath secondary to pulmonary edema. He has h/o CAD, DM type 2, Atrial fibrillation and is S/P right VATS for chronic loculated pleural effusion. Prior to his admission patient was noncompliant to cardiac medications which possibly triggered the current episode of CHF. - Current Medication List Current Medications: Active Medications Allopurinol (Zyloprim -) 100 mg PO DAILY [facility] Last Admin: 07/08/19 09:48 Dose: 100 mg Apixaban (Eliquis -) 5 mg PO BID [facility] Last Admin: 07/08/19 09:48 Dose: 5 mg Atorvastatin Calcium (Lipitor -) 80 mg PO HS [facility] Last Admin: 07/07/19 21:13 Dose: 80 mg Carvedilol (Coreg -) 25 mg PO BID [facility] Last Admin: 07/08/19 09:48 Dose: 25 mg Docusate Sodium (Colace -) 100 mg PO [facility] Furosemide (Lasix Injection -) 40 mg IVPUSH BID@0600,1400 [facility] Last Admin: 07/08/19 14:10 Dose: 40 mg Hydralazine HCl (Apresoline -) 25 mg PO BID [facility] Last Admin: 07/08/19 09:48 Dose: 25 mg Insulin Aspart (Novolog Vial Sliding Scale -) 1 vial SQ [facility]; Protocol Last Admin: 07/08/19 17:17 Dose: Not Given Isosorbide Dinitrate (Isordil -) 10 mg PO TIDISORDIL [facility] Last Admin: 07/08/19 18:06 Dose: 10 mg Pantoprazole Sodium (Protonix -) 40 mg PO DAILY [facility] Last Admin: 07/08/19 09:48 Dose: 40 mg - Objective Vital Signs: Vital Signs Temperature 98.2 F 07/08/19 14:20 Pulse Rate 69 07/08/19 14:20 Respiratory Rate 20 07/08/19 14:20 Blood Pressure 127/57 L 07/08/19 14:20 O2 Sat by Pulse Oximetry (%) 98 07/08/19 09:00 Constitutional: Yes: No Distress, Calm Eyes: Yes: Conjunctiva Clear, EOM Intact HENT: Yes: Atraumatic, Normocephalic Neck: Yes: Supple, Trachea Midline Cardiovascular: Yes: Regular Rate and Rhythm, S1, S2 Respiratory: Yes: On Nasal O2, Orthopnea Gastrointestinal: Yes: Normal Bowel Sounds, Soft, Abdomen, Obese. No: Hepatomegaly, Splenomegaly Breast(s): Yes: WNL Musculoskeletal: Yes: Muscle Weakness Extremities: No: Calf Tenderness Edema: No Peripheral Pulses WNL: Yes Neurological: Yes: Alert, Oriented Psychiatric: Yes: Alert, Oriented Labs: CBC, BMP 07/06/19 23:00 07/07/19 20:15 INR, PTT INR 1.27 (0.83-1.09) H 07/06/19 23:00 Problem List - Problems (1) Pulmonary edema Assessment/Plan: continue Lasix 40 mg i v bid continue Coreg, Eliquis, Hydralazine,Inderal Code(s): J81.1 - CHRONIC PULMONARY EDEMA Qualifiers: Chronicity: acute Qualified Code(s): J81.0 - Acute pulmonary edema (2) Shortness of breath Assessment/Plan: Lasix, strict I/O, weights Code(s): R06.02 - SHORTNESS OF BREATH (3) CKD (chronic kidney disease) stage 3, GFR 30-59 ml/min Assessment/Plan: at baseline Code(s): N18.3 - CHRONIC KIDNEY DISEASE, STAGE 3 (MODERATE) (4) Atrial fibrillation Code(s): I48.91 - UNSPECIFIED ATRIAL FIBRILLATION Qualifiers: Atrial fibrillation type: paroxysmal Qualified Code(s): I48.0 - Paroxysmal atrial fibrillation (5) Type 2 diabetes mellitus with nephropathy Assessment/Plan: accuchecks Code(s): E11.21 - TYPE 2 DIABETES MELLITUS WITH DIABETIC NEPHROPATHY (6) Coronary artery disease Assessment/Plan: on Eliquis, continue current management Code(s): I25.10 - ATHSCL HEART DISEASE OF [place] CORONARY ARTERY W/O ANG PCTRS Qualifiers: Coronary Disease-Associated Artery/Lesion type: [place] artery [place] vs. transplanted heart: [place] heart Associated angina: without angina Qualified Code(s): I25.10 - Atherosclerotic heart disease of [place] coronary artery without angina pectoris (7) Anemia in chronic kidney disease Assessment/Plan: Procrit as needed and as per nephrology HT stable Code(s): N18.9 - CHRONIC KIDNEY DISEASE, UNSPECIFIED; D63.1 - ANEMIA IN CHRONIC KIDNEY DISEASE Qualifiers: Chronic kidney disease stage: stage 2 (mild) Qualified Code(s): N18.2 - Chronic kidney disease, stage 2 (mild); D63.1 - Anemia in chronic kidney disease
[2019-07-08] MEDS: ATORVASTATIN CA 80 MG TABLET (FP) PO SCH (22:09)
[2019-07-09] MEDS: INSULIN SLIDING SCALE (NOVOLOG) 1 VIAL SQ SCH ×4 (06:32→21:26)
[2019-07-09] MEDS: FUROSEMIDE 40 MG/4 ML INJECTABLE VIAL IVPUSH SCH ×2 (06:33→14:37)
[2019-07-09 08:10] LABS: ALBUMIN 2.1 g/dl (3.4-5.0); BILIRUBIN,TOTAL 1.1 mg/dL (0.2-1); BLOOD UREA NITROGEN 52.1 mg/dL (7-18); CALCIUM 8.1 mg/dL (8.5-10.1); CREATININE 1.9 mg/dL (0.55-1.3); TOT PROT 5.6 g/dl (6.4-8.2)
--- NOTE | 2019-07-09 08:44 | PN ---
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, Physician Chief Complaint: There is no dyspnea, can tolerate supine and there is no cough, shortness of breath, palpitations or chest pain. Patient had a bowel movement History of Present Illness: 74 yo male who was admitted for shortness of breath secondary to pulmonary edema. He has h/o CAD, DM type 2, Atrial fibrillation and is S/P right VATS for chronic loculated pleural effusion. Prior to his admission patient was noncompliant to cardiac medications which possibly triggered the present episode of CHF. - Current Medication List Current Medications: Active Medications Allopurinol (Zyloprim -) 100 mg PO DAILY [facility] Last Admin: 07/08/19 09:48 Dose: 100 mg Apixaban (Eliquis -) 5 mg PO BID [facility] Last Admin: 07/08/19 22:08 Dose: 5 mg Atorvastatin Calcium (Lipitor -) 80 mg PO [facility] Last Admin: 07/08/19 22:09 Dose: 80 mg Carvedilol (Coreg -) 25 mg PO BID [facility] Last Admin: 07/08/19 22:08 Dose: 25 mg Docusate Sodium (Colace -) 100 mg PO [facility] Furosemide (Lasix Injection -) 40 mg IVPUSH BID@0600,1400 [facility] Last Admin: 07/09/19 06:33 Dose: 40 mg Hydralazine HCl (Apresoline -) 25 mg PO BID [facility] Last Admin: 07/08/19 22:08 Dose: 25 mg Insulin Aspart (Novolog Vial Sliding Scale -) 1 vial SQ [facility]; Protocol Last Admin: 07/09/19 06:32 Dose: Not Given Isosorbide Dinitrate (Isordil -) 10 mg PO TIDISORDIL [facility] Last Admin: 07/08/19 18:06 Dose: 10 mg Pantoprazole Sodium (Protonix -) 40 mg PO DAILY [facility] Last Admin: 07/08/19 09:48 Dose: 40 mg - Objective Vital Signs: Vital Signs Temperature 97.7 F 07/09/19 06:30 Pulse Rate 74 07/09/19 06:30 Respiratory Rate 20 07/09/19 06:30 Blood Pressure 136/73 07/09/19 06:30 O2 Sat by Pulse Oximetry (%) 98 07/08/19 21:00 Constitutional: Yes: No Distress, Calm Eyes: Yes: Conjunctiva Clear, EOM Intact HENT: Yes: Atraumatic, Normocephalic Neck: Yes: Supple, Trachea Midline Cardiovascular: Yes: Regular Rate and Rhythm, S1, S2 Respiratory: Yes: Regular, CTA Bilaterally Gastrointestinal: Yes: Normal Bowel Sounds, Soft Extremities: No: Calf Tenderness Edema: LLE: Trace, RLE: Trace Peripheral Pulses WNL: Yes Neurological: Yes: Alert, Oriented Psychiatric: Yes: Alert, Oriented Labs: CBC, BMP 07/06/19 23:00 07/09/19 06:50 INR, PTT INR 1.27 (0.83-1.09) H 07/06/19 23:00 - ....Imaging Chest X-ray: Pending Problem List - Problems (1) Pulmonary edema Assessment/Plan: Lasix 40 mg i v bid Coreg, Eliquis, Hydralazine,Inderal cardiaz enzymes borderline repeat in am EKG unchanged Code(s): J81.1 - CHRONIC PULMONARY EDEMA Qualifiers: Chronicity: acute Qualified Code(s): J81.0 - Acute pulmonary edema (2) Shortness of breath Assessment/Plan: Lasix 40 mg iv bid Code(s): R06.02 - SHORTNESS OF BREATH (3) CKD (chronic kidney disease) stage 3, GFR 30-59 ml/min Assessment/Plan: at baseline Code(s): N18.3 - CHRONIC KIDNEY DISEASE, STAGE 3 (MODERATE) (4) Atrial fibrillation Assessment/Plan: Coreg and eliquis Code(s): I48.91 - UNSPECIFIED ATRIAL FIBRILLATION Qualifiers: Atrial fibrillation type: paroxysmal Qualified Code(s): I48.0 - Paroxysmal atrial fibrillation (5) Type 2 diabetes mellitus with nephropathy Assessment/Plan: accuchecks Code(s): E11.21 - TYPE 2 DIABETES MELLITUS WITH DIABETIC NEPHROPATHY (6) Coronary artery disease Assessment/Plan: on Eliquis, continue current management Code(s): I25.10 - ATHSCL HEART DISEASE OF [place] CORONARY ARTERY W/O ANG PCTRS Qualifiers: Coronary Disease-Associated Artery/Lesion type: [place] artery [place] vs. transplanted heart: [place] heart Associated angina: without angina Qualified Code(s): I25.10 - Atherosclerotic heart disease of [place] coronary artery without angina pectoris (7) Anemia in chronic kidney disease Assessment/Plan: Procrit as needed and as per nephrology Code(s): N18.9 - CHRONIC KIDNEY DISEASE, UNSPECIFIED; D63.1 - ANEMIA IN CHRONIC KIDNEY DISEASE Qualifiers: Chronic kidney disease stage: stage 2 (mild) Qualified Code(s): N18.2 - Chronic kidney disease, stage 2 (mild); D63.1 - Anemia in chronic kidney disease
[2019-07-09] MEDS ORDERED: PT OWN MED DRAWER 7, Y5N ONE ×4 (09:05→17:48)
[2019-07-09] MEDS: ISOSORBIDE DINITRATE 10 MG TABLET (FP) PO SCH ×3 (09:12→17:58)
[2019-07-09] MEDS: CARVEDILOL 25 MG TABLET (FP) PO SCH ×2 (09:12→21:26)
[2019-07-09] MEDS: hydrALAZINE HCL 25 MG TABLET (FP) PO SCH ×2 (09:12→21:26)
[2019-07-09] MEDS: PANTOPRAZOLE 40 MG TABLET PO SCH (09:12)
[2019-07-09] MEDS: ALLOPURINOL 100 MG TABLET (FP) PO SCH (09:12)
[2019-07-09] MEDS: APIXABAN 5 MG TABLET PO SCH ×2 (09:12→21:26)
--- NOTE | 2019-07-09 10:08 | PN ---
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, Physician History of Present Illness: Shortness of breath, orthopnea, weakness, and decreased appetite found to have congestion and right recurrent pleural effusion on cxr, symptoms improving with diuresis. Medication noncompliance described by PCP. [place]umping Station Supervisor: Dr. Beau Chacon - [facility] - Current Medication List Current Medications: Active Medications Allopurinol (Zyloprim -) 100 mg PO DAILY [facility] Last Admin: 07/09/19 09:12 Dose: 100 mg Apixaban (Eliquis -) 5 mg PO BID [facility] Last Admin: 07/09/19 09:12 Dose: 5 mg Atorvastatin Calcium (Lipitor -) 80 mg PO HS [facility] Last Admin: 07/08/19 22:09 Dose: 80 mg Carvedilol (Coreg -) 25 mg PO BID [facility] Last Admin: 07/09/19 09:12 Dose: 25 mg Docusate Sodium (Colace -) 100 mg PO [facility] Furosemide (Lasix Injection -) 40 mg IVPUSH BID@0600,1400 [facility] Last Admin: 07/09/19 06:33 Dose: 40 mg Hydralazine HCl (Apresoline -) 25 mg PO BID [facility] Last Admin: 07/09/19 09:12 Dose: 25 mg Insulin Aspart (Novolog Vial Sliding Scale -) 1 vial SQ [facility]; Protocol Last Admin: 07/09/19 06:32 Dose: Not Given Isosorbide Dinitrate (Isordil -) 10 mg PO TIDISORDIL [facility] Last Admin: 07/09/19 09:12 Dose: 10 mg Pantoprazole Sodium (Protonix -) 40 mg PO DAILY [facility] Last Admin: 07/09/19 09:12 Dose: 40 mg - Objective Vital Signs: Vital Signs Temperature 97.7 F 07/09/19 06:30 Pulse Rate 74 07/09/19 06:30 Respiratory Rate 20 07/09/19 06:30 Blood Pressure 136/73 07/09/19 06:30 O2 Sat by Pulse Oximetry (%) 98 07/08/19 21:00 Constitutional: Yes: No Distress, Calm, Thin Neck: Yes: Supple Cardiovascular: Yes: Regular Rate and Rhythm Respiratory: Yes: Regular, Diminished, On Nasal O2 Gastrointestinal: Yes: Normal Bowel Sounds, Soft Edema: No Labs: CBC, BMP 07/06/19 23:00 07/09/19 06:50 INR, PTT INR 1.27 (0.83-1.09) H 07/06/19 23:00 - ....Imaging EKG: Report Reviewed (Tele: NSR) Problem List - Problems (1) Anemia in chronic kidney disease Code(s): N18.9 - CHRONIC KIDNEY DISEASE, UNSPECIFIED; D63.1 - ANEMIA IN CHRONIC KIDNEY DISEASE Qualifiers: Chronic kidney disease stage: stage 2 (mild) Qualified Code(s): N18.2 - Chronic kidney disease, stage 2 (mild); D63.1 - Anemia in chronic kidney disease (2) Coronary artery disease Code(s): I25.10 - ATHSCL HEART DISEASE OF [place] CORONARY ARTERY W/O ANG PCTRS Qualifiers: Coronary Disease-Associated Artery/Lesion type: [place] artery [place] vs. transplanted heart: [place] heart Associated angina: without angina Qualified Code(s): I25.10 - Atherosclerotic heart disease of [place] coronary artery without angina pectoris (3) Pulmonary edema Code(s): J81.1 - CHRONIC PULMONARY EDEMA Qualifiers: Chronicity: acute Qualified Code(s): J81.0 - Acute pulmonary edema (4) Shortness of breath Code(s): R06.02 - SHORTNESS OF BREATH (5) Atrial fibrillation Code(s): I48.91 - UNSPECIFIED ATRIAL FIBRILLATION Qualifiers: Atrial fibrillation type: paroxysmal Qualified Code(s): I48.0 - Paroxysmal atrial fibrillation (6) CHF (congestive heart failure) Code(s): I50.9 - HEART FAILURE, UNSPECIFIED Qualifiers: Heart failure type: combined systolic and diastolic Heart failure chronicity: chronic Qualified Code(s): I50.42 - 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) heart failure (7) CKD (chronic kidney disease) stage 3, GFR 30-59 ml/min Code(s): N18.3 - CHRONIC KIDNEY DISEASE, STAGE 3 (MODERATE) (8) Pulmonary hypertension Code(s): I27.2 - OTHER SECONDARY PULMONARY HYPERTENSION * DO NOT USE * (9) S/P coronary artery stent placement Code(s): Z95.5 - PRESENCE OF CORONARY ANGIOPLASTY IMPLANT AND GRAFT (10) Status post placement of implantable loop recorder Code(s): Z95.818 - PRESENCE OF OTHER CARDIAC IMPLANTS AND GRAFTS (11) Type 2 diabetes mellitus with nephropathy Code(s): E11.21 - TYPE 2 DIABETES MELLITUS WITH DIABETIC NEPHROPATHY (12) Hyperlipidemia Code(s): E78.5 - HYPERLIPIDEMIA, UNSPECIFIED Qualifiers: Hyperlipidemia type: pure hypercholesterolemia Qualified Code(s): E78.00 - Pure hypercholesterolemia, unspecified; E78.0 - Pure hypercholesterolemia (13) Pleural effusion Code(s): J90 - PLEURAL EFFUSION, NOT ELSEWHERE CLASSIFIED Assessment/Plan 10/31/2017 Echo: Low normal LV fxn, normal RV size and fxn tr TR 1. Acute on chronic diastolic failure with pleural effusion triggered by medication noncompliance 2. Acute on CKD 3. Anemia of CKD 4. History of neurocardiogenic syncope vs. vasovagal/situational syncope 5. CAD post [place] post multi-vessel PCI/demand ischemia 6. Post [employer] loop recorder implant 7. Paroxysmal atrial fibrillation with [id number] score of 5 on no A/C 8. HTN 9. Type 2 DM 10. Hypercholesterolemia 11. History of VATS pneumo-lysis, pleural biopsy and partial decortication for chronic loculated non-draining right pleural effusion PLAN: 1. Trops have plateaued 2. IV diuresis with monitor diuretic response, renal fxn and electrolytes, f/u CXR, may need to decrease diuresis 3. Continue Eliquis 5 bid with GI protection, Lipitor 80 qd, carvedilol 25 bid, hydralazine 25 bid, isordil 10 tid as hemodynamics tolerate 4. Monitor H/H and transfuse PRBC if indicated, maintain Hg equal or > 8.0, previously declined endoscopy, empiric Protonix 5. Patient will follow up with Dr. Beau Chacon upon discharge, review outpatient records and most recent echo
[2019-07-09] MEDS ORDERED: SODIUM CHLORIDE NASAL SPRAY 44 ML BOTTLE NS PRN (13:54)
[2019-07-09] MEDS: diazePAM 2 MG TABLET PO PRN (21:26)
[2019-07-09] MEDS: DOCUSATE SODIUM 100 MG CAPSULE (FP) PO SCH (21:26)
[2019-07-09] MEDS: ATORVASTATIN CA 80 MG TABLET (FP) PO SCH (21:26)
[2019-07-10] MEDS: INSULIN SLIDING SCALE (NOVOLOG) 1 VIAL SQ SCH ×4 (06:14→21:12)
[2019-07-10] MEDS ORDERED: PT OWN MED DRAWER 7, Y5N ONE (08:06)
[2019-07-10 08:48] LABS: BILIRUBIN,TOTAL 0.8 mg/dL (0.2-1); CREATININE 2.1 mg/dL (0.55-1.3); MAGNESIUM 1.9 mg/dL (1.8-2.4); POTASSIUM 3.9 mmol/L (3.5-5.1); TOT PROT 5.5 g/dl (6.4-8.2)
[2019-07-10] MEDS: ISOSORBIDE DINITRATE 10 MG TABLET (FP) PO SCH ×3 (09:17→18:35)
[2019-07-10] MEDS ORDERED: FUROSEMIDE 40 MG/4 ML INJECTABLE VIAL IVPUSH SCH (10:00)
[2019-07-10] MEDS: PANTOPRAZOLE 40 MG TABLET PO SCH (11:16)
[2019-07-10] MEDS: ALLOPURINOL 100 MG TABLET (FP) PO SCH (11:16)
[2019-07-10] MEDS: diazePAM 2 MG TABLET PO PRN (11:16)
[2019-07-10] MEDS: hydrALAZINE HCL 25 MG TABLET (FP) PO SCH ×2 (11:16→21:13)
[2019-07-10] MEDS: APIXABAN 5 MG TABLET PO SCH ×2 (11:17→21:13)
[2019-07-10] MEDS: CARVEDILOL 25 MG TABLET (FP) PO SCH ×2 (11:17→21:12)
--- NOTE | 2019-07-10 11:51 | PN ---
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, Physician Chief Complaint: Pt A&Ox3; wants to go home. No chest pain or daypnea; feels weak (chronically) and wonders why he has lost 30 lbs over the past 2 years. History of Present Illness: 74 yo male w/ pmh of [place]; multivessel PCI, DM, CKD, borderline systolic (low normal LVEF 2018 ECHO)/diastolic CHF, s/p VATS, on eliquis, who presents for evaluation of 3 week history of worsening shortness of breath, weakness, and decreased appetite. Patient reports he was instructed to come in yesterday by ampoule sealer (Dr. Chacon) as well. - Current Medication List Current Medications: Active Medications Allopurinol (Zyloprim -) 100 mg PO DAILY [facility] Last Admin: 07/10/19 11:16 Dose: 100 mg Apixaban (Eliquis -) 5 mg PO BID [facility]S [facility] Last Admin: 07/10/19 11:17 Dose: 5 mg Atorvastatin Calcium (Lipitor -) [address] [facility] Last Admin: 07/09/19 21:26 Dose: 80 mg Carvedilol (Coreg -) 25 mg PO BID [facility] 234 BEDS [facility] Last Admin: 07/10/19 11:17 Dose: 25 mg Diazepam (Valium -) 2 mg PO Q8H PRN PRN Reason: ANXIETY Last Admin: 07/10/19 11:16 Dose: 2 mg Docusate Sodium (Colace -) [address] [facility] Last Admin: 07/09/19 21:26 Dose: 100 mg Furosemide (Lasix Injection -) 40 mg IVPUSH DAILY [facility] 234 [facility]S [facility] Last Admin: 07/10/19 11:17 Dose: 40 mg Hydralazine HCl (Apresoline -) 25 mg PO BID [facility]S [facility] Last Admin: 07/10/19 11:16 Dose: 25 mg Insulin Aspart (Novolog Vial Sliding Scale -) 1 vial SQ [facility] 234 BEDS [facility]; Protocol Last Admin: 07/10/19 06:14 Dose: Not Given Isosorbide Dinitrate (Isordil -) 10 mg PO TIDISORDIL [facility] 234 BEDS [facility] Last Admin: 07/10/19 11:17 Dose: 10 mg Pantoprazole Sodium (Protonix -) 40 mg PO DAILY [facility] 234 [facility] Last Admin: 07/10/19 11:16 Dose: 40 mg Sodium Chloride ([place] Nasal [place] -) 1 spray NS DAILY PRN PRN Reason: NASAL CONGESTION Last Admin: 07/09/19 15:30 Dose: 1 spray - Objective Vital Signs: Vital Signs Temperature 97.8 F 07/10/19 06:00 Pulse Rate 77 07/10/19 06:00 Respiratory Rate 20 07/10/19 06:00 Blood Pressure 125/66 07/10/19 06:00 O2 Sat by Pulse Oximetry (%) 92 L 07/09/19 21:00 Constitutional: Yes: Anxious, Thin Eyes: Yes: WNL HENT: Yes: WNL Neck: Yes: WNL Labs: CBC, BMP 07/06/19 23:00 07/10/19 07:20 INR, PTT INR 1.27 (0.83-1.09) H 07/06/19 23:00 Problem List - Problems (1) Hx of myocardial infarction Code(s): I25.2 - OLD MYOCARDIAL INFARCTION (2) Anemia in chronic kidney disease Code(s): N18.9 - CHRONIC KIDNEY DISEASE, UNSPECIFIED; D63.1 - ANEMIA IN CHRONIC KIDNEY DISEASE Qualifiers: Chronic kidney disease stage: stage 2 (mild) Qualified Code(s): N18.2 - Chronic kidney disease, stage 2 (mild); D63.1 - Anemia in chronic kidney disease (3) Coronary artery disease Code(s): I25.10 - ATHSCL HEART DISEASE OF [place] CORONARY ARTERY W/O ANG PCTRS Qualifiers: Coronary Disease-Associated Artery/Lesion type: [place] artery [place] vs. transplanted heart: [place] heart Associated angina: without angina Qualified Code(s): I25.10 - Atherosclerotic heart disease of [place] coronary artery without angina pectoris (4) Acute on chronic systolic and diastolic heart failure, NYHA class 2 Assessment/Plan: Vascular congestion: improving on CXR. No JVD. On hydralazine + isordil, carvedilol, and furosemide. On apixaban (for ?PAF). F/u BUn/Cr, electrolytes, daily weight, Is and Os. Code(s): I50.43 - ACUTE ON CHRONIC COMBINED SYSTOLIC AND DIASTOLIC HRT FAIL
--- NOTE | 2019-07-10 12:24 | PN ---
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, Physician Chief Complaint: There is no dyspnea, can tolerate supine and there is no cough, shortness of breath, palpitations or chest pain. H ei sfeeling well and waiting for PT to evaluate him. - Current Medication List Current Medications: Active Medications Allopurinol (Zyloprim -) 100 mg PO DAILY [facility] Last Admin: 07/10/19 11:16 Dose: 100 mg Apixaban (Eliquis -) 5 mg PO BID [facility] Last Admin: 07/10/19 11:17 Dose: 5 mg Atorvastatin Calcium (Lipitor -) 80 mg PO [facility] Last Admin: 07/09/19 21:26 Dose: 80 mg Carvedilol (Coreg -) 25 mg PO BID [facility] Last Admin: 07/10/19 11:17 Dose: 25 mg Diazepam (Valium -) 2 mg PO Q8H PRN PRN Reason: ANXIETY Last Admin: 07/10/19 11:16 Dose: 2 mg Docusate Sodium (Colace -) 100 mg PO [facility] Last Admin: 07/09/19 21:26 Dose: 100 mg Furosemide (Lasix Injection -) 40 mg IVPUSH DAILY [facility] Last Admin: 07/10/19 11:17 Dose: 40 mg Hydralazine HCl (Apresoline -) 25 mg PO BID [facility] Last Admin: 07/10/19 11:16 Dose: 25 mg Insulin Aspart (Novolog Vial Sliding Scale -) 1 vial SQ [facility]; Protocol Last Admin: 07/10/19 12:18 Dose: 2 units Isosorbide Dinitrate (Isordil -) 10 mg PO TIDISORDIL [facility] Last Admin: 07/10/19 12:19 Dose: 10 mg Pantoprazole Sodium (Protonix -) 40 mg PO DAILY [facility] Last Admin: 07/10/19 11:16 Dose: 40 mg Sodium Chloride ([place] Nasal [place] -) 1 spray NS DAILY PRN PRN Reason: NASAL CONGESTION Last Admin: 07/09/19 15:30 Dose: 1 spray - Objective Vital Signs: Vital Signs Temperature 97.8 F 07/10/19 06:00 Pulse Rate 77 07/10/19 06:00 Respiratory Rate 20 07/10/19 06:00 Blood Pressure 125/66 07/10/19 06:00 O2 Sat by Pulse Oximetry (%) 92 L 07/09/19 21:00 Constitutional: Yes: No Distress, Calm Eyes: Yes: Conjunctiva Clear, EOM Intact HENT: Yes: Atraumatic, Normocephalic Neck: Yes: Supple, Trachea Midline Cardiovascular: Yes: Regular Rate and Rhythm, Other (no hepatojugular reflux) Respiratory: Yes: Regular, CTA Bilaterally, On Nasal O2, Other (good air entry left lung and decreased air entry right lung at base) Gastrointestinal: Yes: Normal Bowel Sounds, Soft, Abdomen, Obese. No: Hepatomegaly, Splenomegaly Extremities: No: Calf Tenderness Edema: No Peripheral Pulses WNL: Yes Neurological: Yes: Alert, Oriented Psychiatric: Yes: Alert, Oriented Labs: CBC, BMP 07/06/19 23:00 07/10/19 07:20 INR, PTT INR 1.27 (0.83-1.09) H 07/06/19 23:00 Problem List - Problems (1) Pulmonary edema Assessment/Plan: Lasix 40 mg switch to po Coreg, Eliquis, Hydralazine,Inderal Code(s): J81.1 - CHRONIC PULMONARY EDEMA Qualifiers: Chronicity: acute Qualified Code(s): J81.0 - Acute pulmonary edema (2) Shortness of breath Assessment/Plan: Lasix 40 mg po bid Code(s): R06.02 - SHORTNESS OF BREATH (3) CKD (chronic kidney disease) stage 3, GFR 30-59 ml/min Assessment/Plan: at baseline patient was in the past on Entresto but developed renal failure and had to be taken off it, it is possible that this change in medication might have contributed to the current exacerbation Code(s): N18.3 - CHRONIC KIDNEY DISEASE, STAGE 3 (MODERATE) (4) Atrial fibrillation Assessment/Plan: Coreg and eliquis Code(s): I48.91 - UNSPECIFIED ATRIAL FIBRILLATION Qualifiers: Atrial fibrillation type: paroxysmal Qualified Code(s): I48.0 - Paroxysmal atrial fibrillation (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 transplanted heart: [place] heart Associated angina: without angina Qualified Code(s): I25.10 - Atherosclerotic heart disease of [place] coronary artery without angina pectoris (7) Anemia in chronic kidney disease Assessment/Plan: Procrit as needed and as per nephrology Code(s): N18.9 - CHRONIC KIDNEY DISEASE, UNSPECIFIED; D63.1 - ANEMIA IN CHRONIC KIDNEY DISEASE Qualifiers: Chronic kidney disease stage: stage 2 (mild) Qualified Code(s): N18.2 - Chronic kidney disease, stage 2 (mild); D63.1 - Anemia in chronic kidney disease
[2019-07-10] MEDS: ATORVASTATIN CA 80 MG TABLET (FP) PO SCH (21:13)
[2019-07-10] MEDS: DOCUSATE SODIUM 100 MG CAPSULE (FP) PO SCH (21:13)
[2019-07-11] MEDS: INSULIN SLIDING SCALE (NOVOLOG) 1 VIAL SQ SCH ×2 (06:32→10:59)
[2019-07-11] MEDS ORDERED: FUROSEMIDE 40 MG TABLET (FP) PO SCH (10:00)
[2019-07-11] MEDS: ISOSORBIDE DINITRATE 10 MG TABLET (FP) PO SCH (10:07)
[2019-07-11] MEDS: PANTOPRAZOLE 40 MG TABLET PO SCH (10:07)
[2019-07-11] MEDS: APIXABAN 5 MG TABLET PO SCH (10:08)
[2019-07-11] MEDS: hydrALAZINE HCL 25 MG TABLET (FP) PO SCH (10:08)
[2019-07-11] MEDS: CARVEDILOL 25 MG TABLET (FP) PO SCH (10:08)
[2019-07-11] MEDS: diazePAM 2 MG TABLET PO PRN (10:08)
[2019-07-11] MEDS: ALLOPURINOL 100 MG TABLET (FP) PO SCH (10:08)
--- NOTE | 2019-07-11 12:20 | DS ---
Physical Examination Vital Signs: Vital Signs Temperature 97.5 F L 07/11/19 06:00 Pulse Rate 65 07/11/19 06:00 Respiratory Rate 19 07/11/19 06:00 Blood Pressure 134/63 07/11/19 06:00 O2 Sat by Pulse Oximetry (%) 98 07/10/19 21:00 Constitutional: Yes: No Distress, Calm Eyes: Yes: Conjunctiva Clear, EOM Intact HENT: Yes: Atraumatic, Normocephalic Neck: Yes: Supple, Trachea Midline Cardiovascular: Yes: Regular Rate and Rhythm, S1, S2 Respiratory: Yes: Regular, CTA Bilaterally, On Nasal O2 Gastrointestinal: Yes: Normal Bowel Sounds, Soft. No: Hepatomegaly, Splenomegaly ...Rectal Exam: Yes: Deferred Breast(s): Yes: WNL Extremities: Yes: Other (weakness in lower extremities). No: Calf Tenderness Edema: No Peripheral Pulses WNL: Yes Neurological: Yes: Alert, Oriented Psychiatric: Yes: Alert, Oriented Labs: CBC, BMP 07/06/19 23:00 07/10/19 07:20 Discharge Summary Problems reviewed: Yes Reason For Visit: SHORTNESS OF BREATH, PLEURAL EFFUSION, Current Active Problems Acute on chronic systolic and diastolic heart failure, NYHA class 2 (Acute) Anemia in chronic kidney disease (Acute) Coronary artery disease (Acute) Hx of myocardial infarction (Acute) Hypervolemia (Acute) Pulmonary edema (Acute) Pulmonary edema cardiac cause (Acute) Shortness of breath (Acute) Hospital Course: 74 yo male with pmh of CAD, Cardiomyopathy, CKD, Chronic A fib, Diabetes mellitus type 2 was admitted for shortness of breath and found to be in acute pulmonary edema. Patient received iv Lasix diuresis 40 mg bid with improvement of his breathing. His repeat CXR showed resolution of the pulmonary congestion, and persisting pleural effusion at the right base. Serial cardiac enzymes and EKG's were unchanged. He is able to walk for short distances and is comfortable without cough or dyspnea while on oxygen. Blood work showed stable hb/Ht. His BS was well controlled during the hospital stay. He is discharged home with recommendation to continue Lasix 40 mg daily and follow up with the [facility] or myself in 1 week. Condition: Fair - Instructions Referrals: Siobhan Mondragon MD [Primary Care Provider] - Disposition: HOME - Home Medications Comprehensive Discharge Medication List: Ambulatory Orders Allopurinol [Zyloprim -] 100 mg PO DAILY 02/03/18 Apixaban [Eliquis -] 5 mg PO BID 30 Days #60 tablet 03/30/18 Atorvastatin Ca [Lipitor] 80 mg PO HS tablet 03/30/18 Zolpidem Tartrate [Ambien Cr] 12.5 mg PO HS #7 tab.mphase MDD 1 05/15/19 Atorvastatin Ca [Lipitor] 80 mg PO HS tablet 05/18/19 Carvedilol [Coreg -] 25 mg PO BID tablet 05/18/19 Pantoprazole Sodium [Protonix -] 40 mg PO DAILY 90 Days tablet.ec 05/18/19 Allopurinol [Zyloprim -] 100 mg PO DAILY tablet 07/11/19 Apixaban [Eliquis -] 5 mg PO BID #60 tablet 07/11/19 Atorvastatin Ca [Lipitor] 80 mg PO HS tablet 07/11/19 Carvedilol [Coreg -] 25 mg PO BID #60 tablet 07/11/19 Docusate Sodium [Colace -] 100 mg PO HS #90 capsule 07/11/19 Ferrous Sulfate [Feosol] 325 mg PO DAILY #30 ud 07/11/19 Furosemide [Lasix -] 40 mg PO DAILY #30 tablet 07/11/19 Pantoprazole Sodium [Protonix -] 40 mg PO DAILY tablet.ec 07/11/19 hydrALAZINE HCL [Apresoline -] 25 mg PO BID #60 tablet 07/11/19
[2019-07-11 15:00] VITALS: BP 124/74; PULSE 66; TEMP 98
== END 2019-07-11 14:30 | disposition home or self-care (01) | DRG 291 ==
LOC: JER 20:45 → JERBED 07-07 00:22 → J4W 07-07 16:16
PROVIDERS: ADMIT Internal Medicine; ATTEND Internal Medicine
DX: I13.0 Hypertensive heart and chronic kidney disease with heart failure and stage 1 through stage 4 chronic kidney disease, or unspecified chronic kidney disease (principal); I50.43 Acute on chronic combined systolic (congestive) and diastolic (congestive) heart failure; R64 Cachexia; I24.8 Other forms of acute ischemic heart disease; E11.22 Type 2 diabetes mellitus with diabetic chronic kidney disease; I48.0 Paroxysmal atrial fibrillation; N18.9 Chronic kidney disease, unspecified; I25.10 Atherosclerotic heart disease of native coronary artery without angina pectoris; E78.00 Pure hypercholesterolemia, unspecified; I42.9 Cardiomyopathy, unspecified; D64.9 Anemia, unspecified; J44.9 Chronic obstructive pulmonary disease, unspecified; I25.2 Old myocardial infarction; Z85.828 Personal history of other malignant neoplasm of skin; Z87.891 Personal history of nicotine dependence; Z79.4 Long term (current) use of insulin
CPT/HCPCS: 36415; 71045-TC-FY; 80053; 82550; 82962; 83735; 83880; 84443; 84484; 85025; 85610; 85730; 93005; 93010; 97116-GP; 97161-GP; 99285-25

== ENCOUNTER 2019-07-27 12:12 | Inpatient (IN) | payer OTHER, BC ==
[2019-07-27 13:39] LABS: BASO % 0.7 % (0-2.0); EOS % 3.3 % (0-4.5); HEMATOCRIT 24.1 % (35.4-49); HEMOGLOBIN 7.4 GM/dl (11.7-16.9); LYMPH % 16.7 % (8-40); MCH 29.8 pg (25.7-33.7); MCHC 30.9 g/dl (32.0-35.9); MEAN CELL VOLUME 96.5 fl (80-96); MEAN PLT VOLUME 8.9 fl (7.5-11.1); MONO % 6.8 % (3.8-10.2); NEUT % 72.5 % (42.8-82.8); PLATELET COUNT 141 K/MM3 (134-434); RDW 17.1 % (11.9-15.9); WHITE BLOOD COUNT 5.2 K/mm3 (4.0-10.8)
[2019-07-27 13:49] LABS: INR 2.18 (0.82-1.09)
[2019-07-27 13:56] LABS: ALBUMIN 2.6 g/dl (3.4-5.0); BILIRUBIN,TOTAL 0.9 mg/dl (0.2-1); CREATININE 2.1 mg/dl (0.55-1.3); POTASSIUM 5.1 mmol/L (3.5-5.1); TOT PROT 6.3 g/dl (6.4-8.2)
--- NOTE | 2019-07-27 14:39 | PDOC ---
History of Present Illness - General Chief Complaint: Respiratory Stated Complaint: CHF SHORT OF BREATH Time Seen by Provider: 07/27/19 12:27 - History of Present Illness Initial Comments: 07/27/19 14:51 74 years old past medical history significant for kidney disease stage IV, diabetes type 2, CAD, CHF status post right VATS for chronic loculated pleural effusion presents to the emergency department with progressively worsening shortness of breath 10 pound weight gain over the last 2 weeks was seen by his home inspector today in the office and was sent to the emergency department for admission diuresis and possible blood transfusion for chronic anemia Symptoms are moderate persistent constant worsening over the last 2 weeks. Past History - Past Medical History Allergies/Adverse Reactions: Allergies Allergy/AdvReac Type Severity Reaction Status Date / Time pioglitazone HCl [From Ebyline] Allergy Severe CHF Verified 07/27/19 12:16 Home Medications: Ambulatory Orders Allopurinol [Zyloprim -] 100 mg PO DAILY 07/27/19 Apixaban [Eliquis] 5 mg PO BID 07/27/19 Atorvastatin Ca [Lipitor] 80 mg PO HS 07/27/19 Carvedilol 25 mg PO BID 07/27/19 Cholecalciferol (Vitamin D3) [Vitamin D3 -] 1,000 unit PO DAILY 07/27/19 Cyproheptadine [Periactin -] 4 mg PO HS 07/27/19 Ferrous Sulfate [Iron] 325 mg PO DAILY 07/27/19 Folic Acid 1 mg PO DAILY 07/27/19 Furosemide 40 mg PO DAILY 07/27/19 Glipizide [Glipizide ER] 5 mg PO BID 07/27/19 Hydralazine HCl 25 mg PO BID 07/27/19 Insulin Sliding Scale [Novolog Vial Sliding Scale -] See Protocol PRN 07/27/19 Isosorbide Mononitrate [Isosorbide Mononitrate ER] 30 mg PO BID 07/27/19 Pantoprazole Sodium 40 mg PO DAILY 07/27/19 Anemia: No Asthma: No Cancer: Yes (skin) Cardiac Disorders: Yes (cad- cardiac cath, 6 stents total) CVA: No COPD: Yes CHF: Yes DVT: No Dementia: No Diabetes: Yes Dialysis: No (CKD) GI Disorders: No Disorders: No HTN: Yes Hypercholesterolemia: Yes Liver Disease: No Seizures: No Thyroid Disease: No Other medical history: KIDNEY DISEASE - Surgical History Abdominal Surgery: Yes (HERNIA repair) Appendectomy: No Cardiac Surgery: Yes (STENTS 95/, 07/2016) Cholecystectomy: No Lung Surgery: Yes (bronchoscopy 03/17, right chest pleural catheter) Neurologic Surgery: No Orthopedic Surgery: No - Immunization History Td Vaccination: Yes Immunization Up to Date: Yes - Psycho Social/Smoking Cessation Hx Smoking Status: No Smoking History: Former smoker Have you smoked in the past 12 months: No Number of Cigarettes Smoked Daily: 0 If you are a former smoker, when did you quit?: 35 YEARS AGO Information on smoking cessation initiated: No 'Breaking Loose' booklet given: 08/15/15 Hx Alcohol Use: No Drug/Substance Use Hx: No Substance Use Type: None Hx Substance Use Treatment: No Review of Systems - Review of Systems Comments:: 07/27/19 14:54 ROS: A complete review of 10 out of 10 review of systems is taken and is negative apart from what is previously mentioned below and in the HPI. *Physical Exam - Vital Signs Last Vital Signs Temp Pulse Resp BP Pulse Ox 97.5 F L 68 20 157/64 99 07/27/19 12:16 07/27/19 12:16 07/27/19 12:16 07/27/19 12:16 07/27/19 12:16 - Physical Exam 07/27/19 14:55 Vitals: Triage Vital signs reviewed General Appearance: No acute distress, well nourished well developed, Head: Atraumatic, Cardiac: Regular rate and rhythym, Lungs: Significant crackles to right side of lung Abdomen: Soft, non distended, normal bowel sounds, non tender to palpation Extremities: 3+ pitting edema bilaterally Skin: Warm and dry, no rashes or lesions, no rash, no petechiae Psych: Normal mood, normal affect Heart Score/ECG Review - ECG Impressions Comment:: 07/27/19 14:57 EKG performed at 1231 demonstrates normal sinus rhythm no ST elevations or T wave inversions left axis deviation incomplete right bundle branch block Interpreted by me ED Treatment Course - LABORATORY CBC & Chemistry Diagram: 07/27/19 12:50 07/27/19 12:50 - ADDITIONAL ORDERS Additional order review: Laboratory Results 07/27/19 07/27/19 07/27/19 12:50 12:50 12:50 PT with INR 24.0 H INR 2.18 H PTT (Actin FS) Sodium 140 Potassium 5.1 Chloride 110 H Carbon Dioxide 26 Anion Gap 4 L BUN 65.0 H Creatinine 2.1 H Est GFR (CKD-EPI)AfAm 34.40 Est GFR (CKD-EPI)NonAf 29.68 Random Glucose 175 H Calcium 8.0 L Total Bilirubin 0.9 AST 9 L ALT 11 L Alkaline Phosphatase 80 Troponin I 0.04 Total Protein 6.3 L Albumin 2.6 L 07/27/19 12:50 PT with INR INR PTT (Actin FS) 43.5 H D Sodium Potassium Chloride Carbon Dioxide Anion Gap BUN Creatinine Est GFR (CKD-EPI)AfAm Est GFR (CKD-EPI)NonAf Random Glucose Calcium Total Bilirubin AST ALT Alkaline Phosphatase Troponin I Total Protein Albumin 07/27/19 12:50 RBC 2.50 L MCV 96.5 H MCHC 30.9 L RDW 17.1 H D MPV 8.9 Neutrophils % 72.5 D Lymphocytes % 16.7 D Monocytes % 6.8 Eosinophils % 3.3 Basophils % 0.7 - RADIOLOGY Radiology Studies Ordered: Category Date Time Status CXRPORT [CHEST X-RAY PORTABLE*] [RAD] Stat Radiology 07/27/19 12:23 Completed Medical Decision Making - Medical Decision Making 07/27/19 14:55 74 years old with 10 pound weight gain crackles and edema consistent with CHF exacerbation chest x-ray notable for congestive changes to the right lung acute on chronic no fever no white count no shift findings most consistent with fluid versus infiltrate We will begin diuresis and admit to medicine for further management. Discharge - Discharge Information Problems reviewed: Yes Clinical Impression/Diagnosis: CHF (congestive heart failure) Qualifiers: Heart failure type: other Qualified Code(s): I50.9 - Heart failure, unspecified Condition: Fair Disposition: HOME - Admission Yes - Follow up/Referral Referrals: Beau Peterson MD [Primary Care Provider] - - Patient Discharge Instructions - Post Discharge Activity
[2019-07-27] MEDS ORDERED: FUROSEMIDE 40 MG/4 ML INJECTABLE VIAL IVPUSH ONE (14:50)
[2019-07-27] MEDS ORDERED: FUROSEMIDE 40 MG/4 ML INJECTABLE VIAL ONE (14:52)
--- NOTE | 2019-07-27 15:10 | EKG ---
Test Reason : Blood Pressure : / mmHG Vent. Rate : 068 BPM Atrial Rate : 068 BPM P-R Int : 174 ms QRS Dur : 132 ms QT Int : 446 ms P-R-T Axes : 037 -46 103 degrees QTc Int : 474 ms NORMAL SINUS RHYTHM LEFT AXIS DEVIATION NON-SPECIFIC INTRA-VENTRICULAR CONDUCTION BLOCK NONSPECIFIC T WAVE ABNORMALITY ABNORMAL ECG WHEN COMPARED WITH ECG OF 06-JUL-2019 22:40, NO SIGNIFICANT CHANGE WAS FOUND Confirmed by Emerson Bledsoe MD ([id number]) on 07/27/2019 3:10:06 PM Referred By: ROSEMARY DRUMMOND Confirmed By:Emerson Bledsoe MD
[2019-07-27] MEDS: ISOSORBIDE DINITRATE 10 MG TABLET (FP) PO SCH (19:59)
[2019-07-27] MEDS: CARVEDILOL 25 MG TABLET (FP) PO SCH (21:34)
[2019-07-27] MEDS: APIXABAN 5 MG TABLET PO SCH (21:34)
[2019-07-27] MEDS: hydrALAZINE HCL 25 MG TABLET (FP) PO SCH (21:34)
[2019-07-27] MEDS: ATORVASTATIN CA 80 MG TABLET (FP) PO SCH (21:34)
--- NOTE | 2019-07-27 22:45 | HP ---
Admitting History and Physical - Admission Chief Complaint: weight gain, weakness in the lower extremities, shortness of breath History of Present Illness: 74 yo male with PMH of CHF, CAD Chronic A fib s/p VATS for right pleural effusion, came in sent form the [employer] Operator Helper's office for complaints of weakness and shortness of breath. A few days prior to admission the patient had increased salt intake after which he started to experience dyspnea. 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: Peripheral Neuropathy Cardiovascular: Yes: AFIB, CAD (prior anterolateral MT 03/1995 w/ PCI of LAD & ramus, PCI of LAD 05/1996 (with 100% occluded ramus and patent RCA), rotoblator & PCI w/ Xience stent prox LAD & prox/mid Cfx 07/30/16), CHF, Hyperlipdemia, MT ( anterolateral MT 1994), Other (CHF) Pulmonary: Yes: O2 Dependent, Pneumonia (03/2016), Other (Chronic right pleural effusion S/p VATS procedure) Gastrointestinal: Yes: GERD Renal/: Yes: Renal Inusuff, BPH, Renal Calculi Heme/Onc: Yes: Anemia Psych: Yes: Anxiety, Depression Musculoskeletal: Yes: Osteoarthritis Rheumatology: Yes: Gout Endocrine: Yes: Diabetes Mellitus (with peripheral neuropathy), Other ( Hypogonadism, nodular goiter) - Past Surgical History Past Surgical History: Yes: Cataract Removal (bilateral), Hernia Repair ( umbillical) - Advance Directives Advance Directives: Yes: Health Care Proxy - Smoking History Smoking history: Former smoker Have you smoked in the past 12 months: No Aproximately how many cigarettes per day: 0 If you are a former smoker, when did you quit?: 35 YEARS AGO - Alcohol/Substance Use Hx Alcohol Use: No History of Substance Use: reports: None - Social History ADL: Independent History of Recent Travel: No Home Medications - Allergies Allergies/Adverse Reactions: Allergies Allergy/AdvReac Type Severity Reaction Status Date / Time pioglitazone HCl [From Actos] Allergy Severe CHF Verified 07/27/19 12:16 - Home Medications Home Medications: Ambulatory Orders Allopurinol [Zyloprim -] 100 mg PO DAILY 07/27/19 Apixaban [Eliquis] 5 mg PO BID 07/27/19 Atorvastatin Ca [Lipitor] 80 mg PO HS 07/27/19 Carvedilol 25 mg PO BID 07/27/19 Cholecalciferol (Vitamin D3) [Vitamin D3 -] 1,000 unit PO DAILY 07/27/19 Ferrous Sulfate [Iron] 325 mg PO DAILY 07/27/19 Folic Acid 1 mg PO DAILY 07/27/19 Furosemide 40 mg PO DAILY 07/27/19 Glipizide [Glipizide ER] 5 mg PO BID 07/27/19 Hydralazine HCl 25 mg PO BID 07/27/19 Isosorbide Mononitrate [Isosorbide Mononitrate ER] 30 mg PO BID 07/27/19 Allopurinol [Zyloprim -] 100 mg PO DAILY tablet 07/30/19 Apixaban [Eliquis -] 5 mg PO BID tablet 07/30/19 Atorvastatin Ca [Lipitor] 80 mg PO HS tablet 07/30/19 Carvedilol [Coreg -] 25 mg PO BID tablet 07/30/19 Glipizide [Glucotrol -] 5 mg PO BID@0700,1630 tablet 07/30/19 Pantoprazole Suspension [Protonix Packets For Oral Suspension -] 40 mg PO DAILY packet 07/30/19 hydrALAZINE HCL [Apresoline -] 25 mg PO BID tablet 07/30/19 Review of Systems - Review of Systems Constitutional: reports: Lethargy, Weakness Eyes: reports: No Symptoms HENT: reports: No Symptoms Cardiovascular: reports: Shortness of Breath Respiratory: reports: Orthopnea, SOB on Exertion Breasts: reports: No Symptoms Reported Musculoskeletal: reports: Muscle Weakness Physical Examination Vital Signs: Vital Signs Temperature 97.4 F L 07/27/19 20:13 Pulse Rate 74 07/27/19 20:13 Respiratory Rate 18 07/27/19 20:13 Blood Pressure 142/63 07/27/19 20:13 O2 Sat by Pulse Oximetry (%) 95 07/27/19 20:13 Constitutional: Yes: No Distress, Calm Eyes: Yes: Conjunctiva Clear, EOM Intact HENT: Yes: Atraumatic, Normocephalic Neck: Yes: Supple, Trachea Midline Cardiovascular: Yes: Regular Rate and Rhythm Respiratory: Yes: On Nasal O2, SOB on Exertion Gastrointestinal: Yes: Normal Bowel Sounds, Soft, Abdomen, Obese. No: Splenomegaly Musculoskeletal: Yes: Back Pain Extremities: No: Calf Tenderness Edema: Yes Edema: LLE: 1+, RLE: 1+ Peripheral Pulses WNL: Yes Integumentary: Yes: Other (pale) Neurological: Yes: Alert, Oriented Psychiatric: Yes: Alert, Oriented Labs: CBC, BMP 07/27/19 12:50 07/27/19 12:50 Imaging - Results Chest X-ray: Other (coongestive heart failure) Problem List - Problems (1) CHF (congestive heart failure) Assessment/Plan: Lasix 40 m g iv bid Code(s): I50.9 - HEART FAILURE, UNSPECIFIED Qualifiers: Heart failure type: combined systolic and diastolic Heart failure chronicity: acute on chronic Qualified Code(s): I50.43 - Acute on chronic combined systolic (congestive) and diastolic (congestive) heart failure (2) Anemia in chronic kidney disease Assessment/Plan: transfuse 1 unit PRBC today repeat CBC tonight LAsix 40 mg iv after the transfusion Code(s): N18.9 - CHRONIC KIDNEY DISEASE, UNSPECIFIED; D63.1 - ANEMIA IN CHRONIC KIDNEY DISEASE Qualifiers: Chronic kidney disease stage: stage 2 (mild) Qualified Code(s): N18.2 - Chronic kidney disease, stage 2 (mild); D63.1 - Anemia in chronic kidney disease (3) Diabetes 1.5, managed as type 2 Assessment/Plan: continue Glipizide Code(s): E10.9 - TYPE 1 DIABETES MELLITUS WITHOUT COMPLICATIONS (4) Malnutrition Assessment/Plan: secondary to chronic disease Code(s): E46 - UNSPECIFIED PROTEIN-CALORIE MALNUTRITION Qualifiers: Malnutrition type: protein-calorie malnutrition Protein-calorie malnutrition severity: mild Qualified Code(s): E44.1 - Mild protein-calorie malnutrition
[2019-07-27] MEDS ORDERED: ALPRAZolam 0.25 MG TABLET PO ONE (23:45)
[2019-07-28] MEDS: FUROSEMIDE 40 MG/4 ML INJECTABLE VIAL IVPUSH SCH ×2 (06:19→14:36)
[2019-07-28 07:52] LABS: ALBUMIN 2.2 g/dl (3.4-5.0); BILIRUBIN,TOTAL 0.9 mg/dl (0.2-1); CALCIUM 7.8 mg/dl (8.5-10); CREATININE 2.1 mg/dl (0.55-1.3); POTASSIUM 4.8 mmol/L (3.5-5.1); TOT PROT 5.4 g/dl (6.4-8.2)
[2019-07-28 08:11] LABS: BASO % 0.4 % (0-2.0); EOS % 3.6 % (0-4.5); HEMATOCRIT 21.6 % (35.4-49); LYMPH % 21.6 % (8-40); MCH 30.7 pg (25.7-33.7); MCHC 31.5 g/dl (32.0-35.9); MEAN CELL VOLUME 97.7 fl (80-96); MEAN PLT VOLUME 8.5 fl (7.5-11.1); MONO % 6.7 % (3.8-10.2); NEUT % 67.7 % (42.8-82.8); PLATELET COUNT 129 K/MM3 (134-434); RBC 2.22 M/mm3 (4.00-5.60); RDW 16.9 % (11.9-15.9); WHITE BLOOD COUNT 4.3 K/mm3 (4.0-10.8)
[2019-07-28 08:36] LABS: HEMOGLOBIN 6.8 GM/dl (11.7-16.9)
[2019-07-28] MEDS: glipiZIDE 5 MG TABLET (FP) PO SCH (09:50)
[2019-07-28] MEDS: APIXABAN 5 MG TABLET PO SCH ×2 (09:51→21:20)
[2019-07-28] MEDS: ISOSORBIDE DINITRATE 10 MG TABLET (FP) PO SCH ×2 (09:51→14:36)
[2019-07-28] MEDS: CARVEDILOL 25 MG TABLET (FP) PO SCH ×2 (09:51→21:20)
[2019-07-28] MEDS: hydrALAZINE HCL 25 MG TABLET (FP) PO SCH ×2 (09:51→21:19)
[2019-07-28] MEDS: ALLOPURINOL 100 MG TABLET (FP) PO SCH (09:51)
[2019-07-28] MEDS ORDERED: PANTOPRAZOLE 40 MG TABLET PO SCH (10:00)
[2019-07-28] MEDS: PANTOPRAZOLE SOD 40 MG SUSPENSION PACKET PO SCH (10:00)
[2019-07-28] MEDS: ALPRAZolam 0.25 MG TABLET PO PRN (11:34)
[2019-07-28] MEDS ORDERED: FUROSEMIDE 40 MG/4 ML INJECTABLE VIAL IVPUSH ONE (12:15)
[2019-07-28] MEDS ORDERED: FUROSEMIDE 40 MG/4 ML INJECTABLE VIAL ONE (12:15)
--- NOTE | 2019-07-28 12:18 | PN ---
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, Physician Chief Complaint: Increased dyspnea, after transfusion , unsteady on his feet and weak History of Present Illness: Patient received today 1 unit PRBc, and developed after transfusion dyspnea. Received LAsix 40 mg iv with improvement of his symptoms. - Current Medication List Current Medications: Active Medications Allopurinol (Zyloprim -) 100 mg PO DAILY [facility] Last Admin: 07/28/19 09:51 Dose: 100 mg Alprazolam (Xanax -) 0.25 mg PO BID PRN PRN Reason: ANXIETY Last Admin: 07/28/19 11:34 Dose: 0.25 mg Apixaban (Eliquis -) 5 mg PO BID [facility] Last Admin: 07/28/19 09:51 Dose: 5 mg Atorvastatin Calcium (Lipitor -) 80 mg PO HS [facility] Last Admin: 07/27/19 21:34 Dose: 80 mg Carvedilol (Coreg -) 25 mg PO BID [facility] Last Admin: 07/28/19 09:51 Dose: 25 mg Furosemide (Lasix Injection -) 40 mg IVPUSH BID@0600,1400 [facility] Last Admin: 07/28/19 06:19 Dose: 40 mg Furosemide (Lasix Injection -) 40 mg IVPUSH ONCE ONE Stop: 07/28/19 12:16 Glipizide (Glucotrol -) 5 mg PO BID@0700,1630 [facility] Last Admin: 07/28/19 09:50 Dose: 5 mg Hydralazine HCl (Apresoline -) 25 mg PO BID [facility] Last Admin: 07/28/19 09:51 Dose: 25 mg Isosorbide Dinitrate (Isordil -) 10 mg PO TIDISORDIL [facility] Last Admin: 07/28/19 09:51 Dose: 10 mg Pantoprazole Sodium (Protonix Packets For Oral Suspension -) 40 mg PO DAILY [facility] - Objective Vital Signs: Vital Signs Temperature 98.1 F 07/28/19 09:45 Pulse Rate 62 07/28/19 09:45 Respiratory Rate 18 07/28/19 09:45 Blood Pressure 127/58 L 07/28/19 09:45 O2 Sat by Pulse Oximetry (%) 97 07/28/19 03:00 Constitutional: Yes: Anxious, Severe Distress Eyes: Yes: Conjunctiva Clear HENT: Yes: Atraumatic, Normocephalic Neck: Yes: Supple, Trachea Midline Cardiovascular: Yes: Tachycardia, S1, S2 Respiratory: Yes: Regular, CTA Bilaterally, Orthopnea, SOB, Other (crepitations at both bases). No: Wheezes Gastrointestinal: Yes: Normal Bowel Sounds, Soft. No: Tenderness, Epigastrium Musculoskeletal: Yes: Muscle Weakness. No: Muscle Pain Extremities: No: Calf Tenderness Edema: No Peripheral Pulses WNL: Yes Neurological: Yes: Alert, Oriented Psychiatric: Yes: Alert, Oriented, Other (anxious) Labs: CBC, BMP 07/28/19 06:50 07/28/19 06:50 INR, PTT INR 2.18 (0.82-1.09) H 07/27/19 12:50 Problem List - Problems (1) Gait disturbance Assessment/Plan: physical therapy evaluation transfer to rehabilitation Code(s): R26.9 - UNSPECIFIED ABNORMALITIES OF GAIT AND MOBILITY (2) CHF (congestive heart failure) Assessment/Plan: Lasix 40 m g iv bid transfused to control CHF repeat cbc to evaluate need for additonal transfusion Code(s): I50.9 - HEART FAILURE, UNSPECIFIED Qualifiers: Heart failure type: combined systolic and diastolic Heart failure chronicity: acute on chronic Qualified Code(s): I50.43 - Acute on chronic combined systolic (congestive) and diastolic (congestive) heart failure (3) Anemia in chronic kidney disease Assessment/Plan: better post transfusion Code(s): N18.9 - CHRONIC KIDNEY DISEASE, UNSPECIFIED; D63.1 - ANEMIA IN CHRONIC KIDNEY DISEASE Qualifiers: Chronic kidney disease stage: stage 2 (mild) Qualified Code(s): N18.2 - Chronic kidney disease, stage 2 (mild); D63.1 - Anemia in chronic kidney disease (4) Diabetes 1.5, managed as type 2 Assessment/Plan: continue Glipizide Code(s): E10.9 - TYPE 1 DIABETES MELLITUS WITHOUT COMPLICATIONS (5) Acute on chronic renal insufficiency Code(s): N28.9 - DISORDER OF KIDNEY AND URETER, UNSPECIFIED; N18.9 - CHRONIC KIDNEY DISEASE, UNSPECIFIED Assessment/Plan patient to be transferred to subacute rehabilitation
[2019-07-28] MEDS ORDERED: PT OWN MED DRAWER 7, Y5N ONE (14:38)
[2019-07-28 18:12] LABS: BASO % 0.5 % (0-2.0); EOS % 2.4 % (0-4.5); HEMATOCRIT 25.9 % (35.4-49); HEMOGLOBIN 8.4 GM/dl (11.7-16.9); LYMPH % 15.2 % (8-40); MCH 30.8 pg (25.7-33.7); MCHC 32.2 g/dl (32.0-35.9); MEAN CELL VOLUME 95.6 fl (80-96); MEAN PLT VOLUME 8.4 fl (7.5-11.1); MONO % 5.7 % (3.8-10.2); NEUT % 76.2 % (42.8-82.8); PLATELET COUNT 130 K/MM3 (134-434); RBC 2.71 M/mm3 (4.00-5.60); RDW 16.5 % (11.9-15.9); WHITE BLOOD COUNT 4.8 K/mm3 (4.0-10.8)
[2019-07-28] MEDS: ATORVASTATIN CA 80 MG TABLET (FP) PO SCH (21:19)
[2019-07-29] MEDS: FUROSEMIDE 40 MG/4 ML INJECTABLE VIAL IVPUSH SCH ×2 (06:10→14:15)
[2019-07-29] MEDS: glipiZIDE 5 MG TABLET (FP) PO SCH ×2 (06:19→17:09)
[2019-07-29] MEDS ORDERED: PT OWN MED DRAWER 7, Y5N ONE (07:43)
[2019-07-29] MEDS: ISOSORBIDE DINITRATE 10 MG TABLET (FP) PO SCH ×3 (07:52→18:21)
[2019-07-29 07:57] LABS: BASO % 0.6 % (0-2.0); EOS % 3.7 % (0-4.5); HEMATOCRIT 25.3 % (35.4-49); LYMPH % 19.7 % (8-40); MCH 30.2 pg (25.7-33.7); MCHC 31.5 g/dl (32.0-35.9); MEAN PLT VOLUME 8.7 fl (7.5-11.1); MONO % 6.3 % (3.8-10.2); NEUT % 69.7 % (42.8-82.8); PLATELET COUNT 144 K/MM3 (134-434); RBC 2.64 M/mm3 (4.00-5.60); RDW 16.5 % (11.9-15.9); WHITE BLOOD COUNT 4.5 K/mm3 (4.0-10.8)
[2019-07-29 08:15] LABS: ALBUMIN 2.2 g/dl (3.4-5.0); BILIRUBIN,TOTAL 1.5 mg/dl (0.2-1); CALCIUM 7.9 mg/dl (8.5-10); POTASSIUM 4.6 mmol/L (3.5-5.1); TOT PROT 5.5 g/dl (6.4-8.2)
[2019-07-29] MEDS: hydrALAZINE HCL 25 MG TABLET (FP) PO SCH ×2 (09:18→21:54)
[2019-07-29] MEDS: APIXABAN 5 MG TABLET PO SCH ×2 (09:18→21:54)
[2019-07-29] MEDS: ALLOPURINOL 100 MG TABLET (FP) PO SCH (09:18)
[2019-07-29] MEDS: CARVEDILOL 25 MG TABLET (FP) PO SCH ×2 (09:18→21:54)
[2019-07-29] MEDS: PANTOPRAZOLE SOD 40 MG SUSPENSION PACKET PO SCH (10:42)
[2019-07-29 15:22] VITALS: BMI 22.8
[2019-07-29] MEDS: ALPRAZolam 0.25 MG TABLET PO PRN ×2 (17:00→23:08)
[2019-07-29] MEDS: ATORVASTATIN CA 80 MG TABLET (FP) PO SCH (21:54)
[2019-07-30] MEDS: FUROSEMIDE 40 MG/4 ML INJECTABLE VIAL IVPUSH SCH (06:34)
[2019-07-30] MEDS: glipiZIDE 5 MG TABLET (FP) PO SCH (06:34)
[2019-07-30 07:46] LABS: BASO % 0.5 % (0-2.0); EOS % 2.9 % (0-4.5); HEMATOCRIT 26.8 % (35.4-49); HEMOGLOBIN 8.7 GM/dl (11.7-16.9); LYMPH % 20.8 % (8-40); MCHC 32.5 g/dl (32.0-35.9); MEAN CELL VOLUME 95.3 fl (80-96); MEAN PLT VOLUME 8.8 fl (7.5-11.1); MONO % 8.6 % (3.8-10.2); NEUT % 67.2 % (42.8-82.8); PLATELET COUNT 134 K/MM3 (134-434); RBC 2.81 M/mm3 (4.00-5.60); RDW 16.1 % (11.9-15.9); WHITE BLOOD COUNT 5.1 K/mm3 (4.0-10.8)
[2019-07-30 07:47] LABS: ALBUMIN 2.4 g/dl (3.4-5.0); BILIRUBIN,TOTAL 1.2 mg/dl (0.2-1); CALCIUM 8.1 mg/dl (8.5-10); POTASSIUM 4.5 mmol/L (3.5-5.1); TOT PROT 5.8 g/dl (6.4-8.2)
[2019-07-30] MEDS: ISOSORBIDE DINITRATE 10 MG TABLET (FP) PO SCH (09:37)
[2019-07-30] MEDS: CARVEDILOL 25 MG TABLET (FP) PO SCH (09:38)
[2019-07-30] MEDS: PANTOPRAZOLE SOD 40 MG SUSPENSION PACKET PO SCH (09:38)
[2019-07-30] MEDS: ALPRAZolam 0.25 MG TABLET PO PRN (09:38)
[2019-07-30] MEDS: ALLOPURINOL 100 MG TABLET (FP) PO SCH (09:38)
[2019-07-30] MEDS: hydrALAZINE HCL 25 MG TABLET (FP) PO SCH (09:38)
[2019-07-30] MEDS: APIXABAN 5 MG TABLET PO SCH (09:38)
[2019-07-30 14:17] VITALS: BP 121/45; PULSE 66; TEMP 97.6
--- NOTE | 2019-08-02 22:20 | DS ---
Physical Examination Vital Signs: Vital Signs Temperature 97.6 F 07/30/19 14:00 Pulse Rate 66 07/30/19 14:00 Respiratory Rate 19 07/30/19 14:00 Blood Pressure 121/45 L 07/30/19 14:00 O2 Sat by Pulse Oximetry (%) 100 07/30/19 14:00 Constitutional: Yes: No Distress, Calm Eyes: Yes: Conjunctiva Clear, EOM Intact HENT: Yes: Atraumatic, Normocephalic Neck: Yes: Supple, Trachea Midline Cardiovascular: Yes: Regular Rate and Rhythm Respiratory: Yes: Regular, CTA Bilaterally, On Nasal O2 Gastrointestinal: Yes: Normal Bowel Sounds, Soft. No: Hepatomegaly, Splenomegaly Extremities: No: Calf Tenderness Peripheral Pulses WNL: Yes Neurological: Yes: Alert, Oriented Psychiatric: Yes: Alert, Oriented Labs: CBC, BMP 07/30/19 06:45 07/30/19 06:45 Discharge Summary Problems reviewed: Yes Reason For Visit: CONGESTIVE HEART FAILURE Procedures: Principal: PRBC transfusion. IV diuretic administration Hospital Course: improved clinically after the blood transfusion Condition: Fair - Instructions Referrals: Beau Peterson MD [Primary Care Provider] - Disposition: HOME - Home Medications Comprehensive Discharge Medication List: Ambulatory Orders Allopurinol [Zyloprim -] 100 mg PO DAILY 07/27/19 Apixaban [Eliquis] 5 mg PO BID 07/27/19 Atorvastatin Ca [Lipitor] 80 mg PO HS 07/27/19 Carvedilol 25 mg PO BID 07/27/19 Cholecalciferol (Vitamin D3) [Vitamin D3 -] 1,000 unit PO DAILY 07/27/19 Ferrous Sulfate [Iron] 325 mg PO DAILY 07/27/19 Folic Acid 1 mg PO DAILY 07/27/19 Furosemide 40 mg PO DAILY 07/27/19 Glipizide [Glipizide ER] 5 mg PO BID 07/27/19 Hydralazine HCl 25 mg PO BID 07/27/19 Isosorbide Mononitrate [Isosorbide Mononitrate ER] 30 mg PO BID 07/27/19 Allopurinol [Zyloprim -] 100 mg PO DAILY tablet 07/30/19 Apixaban [Eliquis -] 5 mg PO BID tablet 07/30/19 Atorvastatin Ca [Lipitor] 80 mg PO HS tablet 07/30/19 Carvedilol [Coreg -] 25 mg PO BID tablet 07/30/19 Glipizide [Glucotrol -] 5 mg PO BID@0700,1630 tablet 07/30/19 Pantoprazole Suspension [Protonix Packets For Oral Suspension -] 40 mg PO DAILY packet 07/30/19 hydrALAZINE HCL [Apresoline -] 25 mg PO BID tablet 07/30/19
== END 2019-07-30 17:20 | disposition home or self-care (01) | DRG 291 ==
LOC: FER 12:12 → FM/S 15:47 → OBSVTOIN 07-28 12:17
PROVIDERS: ADMIT Internal Medicine; ATTEND Internal Medicine
PROC: 30233N1 Transfusion of Nonautologous Red Blood Cells into Peripheral Vein, Percutaneous Approach (ICD-10-PCS; principal; 2019-07-28)
DX: I13.0 Hypertensive heart and chronic kidney disease with heart failure and stage 1 through stage 4 chronic kidney disease, or unspecified chronic kidney disease (principal); I50.33 Acute on chronic diastolic (congestive) heart failure; N18.4 Chronic kidney disease, stage 4 (severe); J90 Pleural effusion, not elsewhere classified; E44.1 Mild protein-calorie malnutrition; E11.22 Type 2 diabetes mellitus with diabetic chronic kidney disease; E11.40 Type 2 diabetes mellitus with diabetic neuropathy, unspecified; D63.1 Anemia in chronic kidney disease; I25.10 Atherosclerotic heart disease of native coronary artery without angina pectoris; K21.9 Gastro-esophageal reflux disease without esophagitis; F41.8 Other specified anxiety disorders; Z87.891 Personal history of nicotine dependence; M19.90 Unspecified osteoarthritis, unspecified site; E04.9 Nontoxic goiter, unspecified; R06.00 Dyspnea, unspecified; R26.9 Unspecified abnormalities of gait and mobility; Z95.5 Presence of coronary angioplasty implant and graft; Z79.84 Long term (current) use of oral hypoglycemic drugs
CPT/HCPCS: 36415; 36430; 36511; 71045-TC-FY; 80053; 82962; 83880; 84484; 85025; 85610; 85730; 86850; 86900; 86901; 86922; 93005; 97116-GP; 97161-GP; 99285-25; G0378; P9038; P9058

== ENCOUNTER 2019-08-07 04:01 | Inpatient (IN) | payer OTHER, BC ==
--- NOTE | 2019-08-07 04:06 | PDOC ---
Attending Attestation - Resident Resident Name: Nilton Arthur - ED Attending Attestation I have performed the following: I have examined & evaluated the patient, The case was reviewed & discussed with the resident, I agree w/resident's findings & plan - HPI HPI: 08/07/19 05:04 Pt fell out of the bed; DM, HTN. chronic lung problems. Pt is on eliquis. EMS got there in 15 min and they lifted him up, Pt is confused to time. - Physicial Exam PE: 08/08/19 01:25 Agree with resident exam - Medical Decision Making 08/08/19 01:25 labs and imaging pending Pt will be signed out to the day docs and they will dispo the patient.
[2019-08-07 05:33] LABS: EOS % 3.3 % (0-4.5); HEMATOCRIT 26.7 % (35.4-49); HEMOGLOBIN 8.9 GM/dL (11.7-16.9); LYMPH % 21.9 % (8-40); MCH 31.8 pg (25.7-33.7); MCHC 33.5 g/dl (32.0-35.9); MEAN CELL VOLUME 95.1 fl (80-96); MONO % 6.6 % (3.8-10.2); NEUT % 67.2 % (42.8-82.8); PLATELET COUNT 143 K/MM3 (134-434); RBC 2.81 M/mm3 (4.00-5.60)
--- NOTE | 2019-08-07 05:52 | PDOC ---
History of Present Illness - General Chief Complaint: Injury Stated Complaint: FALL Time Seen by Provider: 08/07/19 04:05 - History of Present Illness Initial Comments: The pt is a 74M w/ a history of DM, CKD, HTN who presents for evaluation after fall/slide out of bed. Denies head trauma/LOC. The pt denies any pain or injury. The pt's reports that he has had increasing SOB over the last 2-3 days. Denies fevers, N/V, abdominal pain, diarrhea, dysuria, wound, rash. Pt is on Eliquis The also reports that the pt is 'more confused' than his baseline. Pt denies any focal weakness/sensation changes 08/07/19 05:17 Past History - Past Medical History Allergies/Adverse Reactions: Allergies Allergy/AdvReac Type Severity Reaction Status Date / Time pioglitazone HCl [From Actos] Allergy Severe CHF Verified 08/07/19 04:03 Home Medications: Ambulatory Orders Allopurinol [Zyloprim -] 100 mg PO DAILY 07/27/19 Atorvastatin Ca [Lipitor] 80 mg PO HS 07/27/19 Carvedilol 25 mg PO BID 07/27/19 Cholecalciferol (Vitamin D3) [Vitamin D3 -] 1,000 unit PO DAILY 07/27/19 Ferrous Sulfate [Iron] 325 mg PO DAILY 07/27/19 Folic Acid 1 mg PO DAILY 07/27/19 Furosemide 40 mg PO DAILY 07/27/19 Hydralazine HCl 25 mg PO BID 07/27/19 Isosorbide Mononitrate [Isosorbide Mononitrate ER] 30 mg PO BID 07/27/19 Allopurinol [Zyloprim -] 100 mg PO DAILY tablet 07/30/19 Atorvastatin Ca [Lipitor] 80 mg PO HS tablet 07/30/19 Carvedilol [Coreg -] 25 mg PO BID tablet 07/30/19 Glipizide [Glucotrol -] 5 mg PO BID@0700,1630 tablet 07/30/19 Alprazolam [Xanax] 0.25 mg PO DAILY PRN 7 Days #60 tablet MDD 2 08/15/19 Apixaban [Eliquis -] 2.5 mg PO BID 90 Days #180 tablet 08/15/19 Atorvastatin Ca [Lipitor] 80 mg PO HS tablet 03/15/20 Bupropion HCl [Wellbutrin -] 75 mg PO BID@0800,1800 90 Days #180 tablet 08/15/19 Carvedilol [Coreg -] 25 mg PO BID tablet 08/15/19 Docusate Sodium [Colace -] 300 mg PO HS capsule 08/15/19 Ferrous Sulfate [Feosol] 325 mg PO DAILY ud 08/15/19 Glipizide [Glucotrol -] 5 mg PO BID@0700,1630 tablet 08/15/19 Isosorbide Mononitrate [Imdur -] 30 mg PO DAILY tab.sr.24h 08/15/19 Pantoprazole Sodium [Protonix -] 20 mg PO DAILY tablet.ec 08/15/19 hydrALAZINE HCL [Apresoline -] 25 mg PO TID tablet 08/15/19 hydrALAZINE HCL [Apresoline -] 25 mg PO TID #0 tablet 08/15/19 Anemia: No Asthma: No Cancer: Yes (skin) Cardiac Disorders: Yes (cad- cardiac cath, 6 stents total) CVA: No COPD: Yes CHF: Yes DVT: No Dementia: No Diabetes: Yes Dialysis: No (CKD) GI Disorders: No Disorders: No HTN: Yes Hypercholesterolemia: Yes Liver Disease: No Seizures: No Thyroid Disease: No - Surgical History Abdominal Surgery: Yes (HERNIA repair) Appendectomy: No Cardiac Surgery: Yes (STENTS , 07/2016) Cholecystectomy: No Lung Surgery: Yes (bronchoscopy 03/17, right chest pleural catheter) Neurologic Surgery: No Orthopedic Surgery: No - Immunization History Td Vaccination: Yes Immunization Up to Date: Yes - Psycho Social/Smoking Cessation Hx Smoking Status: No Smoking History: Former smoker Have you smoked in the past 12 months: No Number of Cigarettes Smoked Daily: 0 If you are a former smoker, when did you quit?: 1989 Information on smoking cessation initiated: No 'Breaking Loose' booklet given: 08/15/15 Hx Alcohol Use: No Drug/Substance Use Hx: No Substance Use Type: None Hx Substance Use Treatment: No Review of Systems - Review of Systems Able to Perform ROS?: Yes Comments:: GENERAL/CONSTITUTIONAL: No fever or chills. No weakness HEAD, EYES, EARS, NOSE AND THROAT: No change in vision. No change in hearing. No sore throat CARDIOVASCULAR: No chest pain or shortness of breath RESPIRATORY: Denies cough, hemoptysis GASTROINTESTINAL: No nausea, vomiting, diarrhea or constipation GENITOURINARY: No dysuria, frequency, or change in urination MUSCULOSKELETAL: No joint or muscle swelling or pain. No neck or back pain SKIN: No rash NEUROLOGIC: No headache, vertigo, loss of consciousness, or change in strength/sensation ENDOCRINE: No increased thirst. No abnormal weight change HEMATOLOGIC/LYMPHATIC: +eliquis ALLERGIC/IMMUNOLOGIC: No hives or skin allergy 08/07/19 05:52 Is the patient limited Uzbek proficient: No *Physical Exam - Vital Signs Last Vital Signs Temp Pulse Resp BP Pulse Ox 97.7 F 78 20 176/79 H 87 L 08/07/19 04:10 08/07/19 04:10 08/07/19 04:10 08/07/19 04:10 08/07/19 04:10 - Physical Exam GENERAL: Awake, alert, and oriented to name, [place], [facility] HEAD: No signs of trauma, normocephalic, atraumatic EYES: PERRLA, EOMI, sclera anicteric, conjunctiva clear ENT: Hearing grossly normal, nares patent, oropharynx clear without exudates LUNGS: No distress, on 3L NC, diminished at bases, poor inspiratory effort HEART: Regular rate and rhythm, normal S1 and S2, no murmurs appreciated ABDOMEN: Soft, nontender, normoactive bowel sounds. No guarding, no rebound EXTREMITIES: Moves all extremities independently NEUROLOGICAL: Cranial nerves II through XII grossly intact. No focal sensorimotor deficits SKIN: Warm, Dry ED Treatment Course - LABORATORY CBC & Chemistry Diagram: 08/15/19 06:30 08/15/19 06:30 - RADIOLOGY Radiology Studies Ordered: Category Date Time Status CERVICAL SPINE CT W/O CONTR [CT] Stat CT Scan 08/07/19 04:[address] WITHOUT CONTRAST [CT] Stat CT Scan 08/07/19 04:02 Ordered CHEST - PA [RAD] Stat Radiology 08/07/19 04:13 Ordered PELVIS [RAD] Stat Radiology 08/07/19 04:13 Ordered Medical Decision Making - Medical Decision Making The pt is a 74M w/ a history of DM, CKD, HTN who presents for evaluation after fall/slide out of bed. Denies head trauma/LOC. Pt/ also report worsening SOB and ?confusion. ED Course Labs sent ECG CXR, pelvis XR CT head/c-spine Results pending Pt signed out to day team for dispo 08/16/19 03:14 Discharge - Discharge Information Problems reviewed: Yes Clinical Impression/Diagnosis: SOB (shortness of breath) Fall Qualifiers: Encounter type: initial encounter Qualified Code(s): W19.XXXA - Unspecified fall, initial encounter Condition: Stable Disposition: HOME - Follow up/Referral - Patient Discharge Instructions - Post Discharge Activity
[2019-08-07 06:04] LABS: ALBUMIN 2.6 g/dl (3.4-5.0); BILIRUBIN,TOTAL 1.4 mg/dL (0.2-1); CALCIUM 8.2 mg/dL (8.5-10.1); CREATININE 2.3 mg/dL (0.55-1.3); MAGNESIUM 1.8 mg/dL (1.8-2.4); N-TERMINAL BNP 28133.3 pg/ml (5-450); POTASSIUM 4.3 mmol/L (3.5-5.1)
[2019-08-07 06:59] LABS: INR 1.87 (0.83-1.09); PROTHROMBIN TIME (PATIENT) 22.2 SEC (9.7-13.0)
[2019-08-07 07:00] LABS: ACTIVATED PTT 49.6 SECONDS (25.2-36.5)
[2019-08-07] MEDS ORDERED: FUROSEMIDE 40 MG/4 ML INJECTABLE VIAL IVPUSH ONE (07:54)
[2019-08-07 08:00] LABS: HYALINE CASTS 2 /lpf (0-8); URINE APPEARANCE CLEAR; URINE BACTERIA 11.2 /hpf (NEGATIVE); URINE BILIRUBIN NEGATIVE (NEGATIVE); URINE COLOR YELLOW; URINE GLUCOSE (UA) TRACE (NEGATIVE); URINE KETONE NEGATIVE (NEGATIVE); URINE LEUK ESTERASE TRACE (NEGATIVE); URINE NITRITE NEGATIVE (NEGATIVE); URINE PROTEIN 3+ (NEGATIVE); URINE RBC 494 /hpf (0-4); URINE UROBILINOGEN 0.2 mg/dL (0.2-1.0); URINE WBC 13 /hpf (0-5)
[2019-08-07] MEDS ORDERED: FUROSEMIDE 40 MG/4 ML INJECTABLE VIAL ONE ×3 (08:06→15:42)
--- NOTE | 2019-08-07 10:27 | EKG ---
Test Reason : Blood Pressure : / mmHG Vent. Rate : 078 BPM Atrial Rate : 078 BPM P-R Int : 174 ms QRS Dur : 136 ms QT Int : 426 ms P-R-T Axes : 038 -57 100 degrees QTc Int : 485 ms NORMAL SINUS RHYTHM LEFT AXIS DEVIATION NON-SPECIFIC INTRA-VENTRICULAR CONDUCTION BLOCK NONSPECIFIC T WAVE ABNORMALITY ABNORMAL ECG WHEN COMPARED WITH ECG OF 27-JUL-2019 12:31, NO SIGNIFICANT CHANGE WAS FOUND Confirmed by Emerson Bledsoe MD ([id number]) on 08/07/2019 10:27:11 AM Referred By: Confirmed By:Emerson Bledsoe MD
[2019-08-07] MEDS ORDERED: hydrALAZINE HCL 10 MG TABLET PO SCH (14:00)
[2019-08-07] MEDS ORDERED: APIXABAN 5 MG TABLET ONE ×3 (14:15→21:21)
[2019-08-07] MEDS ORDERED: CARVEDILOL 12.5 MG TABLET (FP) ONE ×3 (14:16→21:21)
[2019-08-07] MEDS ORDERED: ISOSORBIDE MONONITRATE 60 MG TAB.SR.24H (FP) PO ONE ×2 (14:16→15:42)
[2019-08-07] MEDS ORDERED: hydrALAZINE HCL 25 MG TABLET (FP) ONE ×3 (14:16→21:21)
[2019-08-07] MEDS ORDERED: glipiZIDE 5 MG TABLET (FP) ONE (15:42)
[2019-08-07] MEDS: FUROSEMIDE 40 MG/4 ML INJECTABLE VIAL IVPUSH SCH (16:02)
[2019-08-07] MEDS: APIXABAN 5 MG TABLET PO SCH ×2 (16:02→21:29)
[2019-08-07] MEDS: hydrALAZINE HCL 25 MG TABLET (FP) PO SCH ×2 (16:02→21:29)
[2019-08-07] MEDS: ISOSORBIDE MONONITRATE 30 MG TAB.SR.24H (FP) PO SCH (16:02)
[2019-08-07] MEDS: CARVEDILOL 25 MG TABLET (FP) PO SCH ×2 (16:02→21:29)
[2019-08-07] MEDS: glipiZIDE 5 MG TABLET (FP) PO SCH (16:03)
[2019-08-07] MEDS: ATORVASTATIN CA 80 MG TABLET (FP) PO SCH (23:13)
[2019-08-08] MEDS: FUROSEMIDE 40 MG/4 ML INJECTABLE VIAL IVPUSH SCH ×2 (06:44→16:29)
[2019-08-08] MEDS: hydrALAZINE HCL 25 MG TABLET (FP) PO SCH ×3 (06:44→22:11)
[2019-08-08] MEDS: glipiZIDE 5 MG TABLET (FP) PO SCH ×2 (06:44→16:32)
[2019-08-08 07:48] LABS: ALBUMIN 2.2 g/dl (3.4-5.0); BLOOD UREA NITROGEN 72.8 mg/dL (7-18); CALCIUM 8.3 mg/dL (8.5-10.1); CREATININE 2.2 mg/dL (0.55-1.3); POTASSIUM 4.3 mmol/L (3.5-5.1); TOT PROT 5.9 g/dl (6.4-8.2)
[2019-08-08] MEDS: ISOSORBIDE MONONITRATE 30 MG TAB.SR.24H (FP) PO SCH (09:07)
[2019-08-08] MEDS: APIXABAN 5 MG TABLET PO SCH ×2 (09:07→22:11)
[2019-08-08] MEDS: CARVEDILOL 25 MG TABLET (FP) PO SCH ×2 (09:08→22:11)
[2019-08-08] MEDS ORDERED: ALPRAZolam 0.25 MG TABLET PO PRN (21:21)
--- NOTE | 2019-08-08 21:34 | HP ---
Admitting History and Physical - Admission Chief Complaint: fell out of bed and increased weakness History of Present Illness: 74 yo male with PMH of systolo diastolic CHF, Chronic Atrial fibrillation, CRF and DM type 2 with nephropathy came in [facility] after sliding out of bed and not being able to get up. The patient had repeated recent hospital admissions due to exacerbation of his CHF and anemia for which he received blood transfusions. Patient had VATS in 2018 for recurrent right pleural effusion. 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: Peripheral Neuropathy Cardiovascular: Yes: AFIB, CAD (prior anterolateral RI 03/1995 w/ PCI of LAD & ramus, PCI of LAD 05/1996 (with 100% occluded ramus and patent RCA), rotoblator & PCI w/ Xience stent prox LAD & prox/mid Cfx 07/30/16), CHF, Hyperlipdemia, RI (anterolateral RI 1994), Other (CHF) Pulmonary: Yes: O2 Dependent, Pneumonia (03/2016), Other (Chronic right pleural effusion S/p VATS procedure) Gastrointestinal: Yes: GERD Renal/: Yes: Renal Inusuff, BPH, Renal Calculi Heme/Onc: Yes: Anemia Psych: Yes: Anxiety, Depression Musculoskeletal: Yes: Osteoarthritis Rheumatology: Yes: Gout Endocrine: Yes: Diabetes Mellitus (with peripheral neuropathy), Other (Hypogonadism, nodular goiter) - Past Surgical History Past Surgical History: Yes: Cataract Removal (bilateral), Hernia Repair (umbillical) - Smoking History Smoking history: Former smoker Have you smoked in the past 12 months: No Aproximately how many cigarettes per day: 0 If you are a former smoker, when did you quit?: 1989 - Alcohol/Substance Use Hx Alcohol Use: No History of Substance Use: reports: None - Social History ADL: Independent History of Recent Travel: No Home Medications - Allergies Allergies/Adverse Reactions: Allergies Allergy/AdvReac Type Severity Reaction Status Date / Time pioglitazone HCl [From Actos] Allergy Severe CHF Verified 08/07/19 04:03 - Home Medications Home Medications: Ambulatory Orders Allopurinol [Zyloprim -] 100 mg PO DAILY 07/27/19 Apixaban [Eliquis] 5 mg PO BID 07/27/19 Atorvastatin Ca [Lipitor] 80 mg PO HS 07/27/19 Carvedilol 25 mg PO BID 07/27/19 Cholecalciferol (Vitamin D3) [Vitamin D3 -] 1,000 unit PO DAILY 07/27/19 Ferrous Sulfate [Iron] 325 mg PO DAILY 07/27/19 Folic Acid 1 mg PO DAILY 07/27/19 Furosemide 40 mg PO DAILY 07/27/19 Glipizide [Glipizide ER] 5 mg PO BID 07/27/19 Hydralazine HCl 25 mg PO BID 07/27/19 Isosorbide Mononitrate [Isosorbide Mononitrate ER] 30 mg PO BID 07/27/19 Allopurinol [Zyloprim -] 100 mg PO DAILY tablet 07/30/19 Apixaban [Eliquis -] 5 mg PO BID tablet 07/30/19 Atorvastatin Ca [Lipitor] 80 mg PO HS tablet 07/30/19 Carvedilol [Coreg -] 25 mg PO BID tablet 07/30/19 Glipizide [Glucotrol -] 5 mg PO BID@0700,1630 tablet 07/30/19 Pantoprazole Suspension [Protonix Packets For Oral Suspension -] 40 mg PO DAILY packet 07/30/19 hydrALAZINE HCL [Apresoline -] 25 mg PO BID tablet 07/30/19 Family Medical History Family History: Unremarkable Review of Systems - Review of Systems Constitutional: reports: Weakness Eyes: reports: No Symptoms Neck: reports: No Symptoms Cardiovascular: reports: Shortness of Breath Gastrointestinal: reports: Constipation Genitourinary: reports: No Symptoms Breasts: reports: No Symptoms Reported Musculoskeletal: reports: Other (sacral pain) Psychiatric: reports: Altered Sleep Pattern, Anxiety, Depression Physical Examination Vital Signs: Vital Signs Temperature 97.3 F L 08/08/19 18:26 Pulse Rate 63 08/08/19 18:26 Respiratory Rate 20 08/08/19 18:26 Blood Pressure 117/58 L 08/08/19 18:26 O2 Sat by Pulse Oximetry (%) 98 08/08/19 09:00 Constitutional: Yes: Anxious, Pallor, Thin Cardiovascular: Yes: Regular Rate and Rhythm, S1, S2 Respiratory: Yes: Diminished (bilaterally diminished breth sounds), On Nasal O2, SOB, Tachypnea. No: Rhonchi, Wheezes Gastrointestinal: Yes: Normal Bowel Sounds, Soft Breast(s): Yes: WNL Musculoskeletal: Yes: Muscle Weakness Extremities: No: Calf Tenderness Edema: No Peripheral Pulses WNL: Yes Integumentary: Yes: WNL Neurological: Yes: Alert, Oriented Psychiatric: Yes: Alert, Oriented Labs: CBC, BMP 08/07/19 04:40 08/08/19 05:45 Imaging - Results Chest X-ray: Other (cardiomegaly, blunting o fthe CPA, hilar congestion) Problem List - Problems (1) Acute on chronic systolic and diastolic heart failure, NYHA class 2 Assessment/Plan: LAsix 40 mg iv bid check weight daily 800 cc fluid intake daily repeat CXR in am Code(s): I50.43 - ACUTE ON CHRONIC COMBINED SYSTOLIC AND DIASTOLIC HRT FAIL (2) [id number] kidney injury Assessment/Plan: at baseline monitor K levels Code(s): N17.9 - ACUTE KIDNEY FAILURE, UNSPECIFIED; N18.9 - CHRONIC KIDNEY DISEASE, UNSPECIFIED Qualifiers: Chronic kidney disease stage: stage 4 (severe) (3) Anemia in chronic kidney disease Assessment/Plan: iron sulfate 325 mg po daily Code(s): N18.9 - CHRONIC KIDNEY DISEASE, UNSPECIFIED; D63.1 - ANEMIA IN CHRONIC KIDNEY DISEASE Qualifiers: Chronic kidney disease stage: stage 2 (mild) Qualified Code(s): N18.2 - Chronic kidney disease, stage 2 (mild); D63.1 - Anemia in chronic kidney disease (4) Atrial fibrillation Assessment/Plan: continue Coreg 25 mg po bid Eliquis 5 mg po bid Code(s): I48.91 - UNSPECIFIED ATRIAL FIBRILLATION Qualifiers: Atrial fibrillation type: paroxysmal Qualified Code(s): I48.0 - Paroxysmal atrial fibrillation (5) CKD (chronic kidney disease) stage 3, GFR 30-59 ml/min Assessment/Plan: monitor fluid intake ad salt intake repeat CMP in am Code(s): N18.3 - CHRONIC KIDNEY DISEASE, STAGE 3 (MODERATE) (6) Diabetes 1.5, managed as type 2 Assessment/Plan: Glipizide accuchecks AC and HS with insulin coverage Code(s): E10.9 - TYPE 1 DIABETES MELLITUS WITHOUT COMPLICATIONS (7) Hx of myocardial infarction Code(s): I25.2 - OLD MYOCARDIAL INFARCTION (8) Malnutrition Assessment/Plan: pre albumin level Neupro Code(s): E46 - UNSPECIFIED PROTEIN-CALORIE MALNUTRITION Qualifiers: Malnutrition type: protein-calorie malnutrition Protein-calorie malnutrition severity: mild Qualified Code(s): E44.1 - Mild protein-calorie malnutrition
[2019-08-08] MEDS: ATORVASTATIN CA 80 MG TABLET (FP) PO SCH (22:11)
[2019-08-09] MEDS: hydrALAZINE HCL 25 MG TABLET (FP) PO SCH ×3 (06:23→22:19)
[2019-08-09] MEDS: glipiZIDE 5 MG TABLET (FP) PO SCH ×2 (06:23→17:05)
[2019-08-09] MEDS: FUROSEMIDE 40 MG/4 ML INJECTABLE VIAL IVPUSH SCH ×2 (06:23→17:06)
[2019-08-09] MEDS ORDERED: FUROSEMIDE 40 MG/4 ML INJECTABLE VIAL IVPUSH ONE (10:00)
[2019-08-09] MEDS: PANTOPRAZOLE 20 MG TABLET PO SCH (10:04)
[2019-08-09] MEDS: APIXABAN 5 MG TABLET PO SCH ×2 (10:04→22:19)
[2019-08-09] MEDS: CARVEDILOL 25 MG TABLET (FP) PO SCH ×2 (10:04→22:19)
[2019-08-09] MEDS: ISOSORBIDE MONONITRATE 30 MG TAB.SR.24H (FP) PO SCH (10:05)
--- NOTE | 2019-08-09 12:18 | EKG ---
Test Reason : Blood Pressure : / mmHG Vent. Rate : 074 BPM Atrial Rate : 074 BPM P-R Int : 170 ms QRS Dur : 134 ms QT Int : 436 ms P-R-T Axes : 047 -47 098 degrees QTc Int : 483 ms SINUS RHYTHM WITH OCCASIONAL PREMATURE VENTRICULAR COMPLEXES LEFT AXIS DEVIATION NON-SPECIFIC INTRA-VENTRICULAR CONDUCTION BLOCK ABNORMAL ECG WHEN COMPARED WITH ECG OF 07-AUG-2019 05:16, PREMATURE VENTRICULAR COMPLEXES ARE NOW PRESENT Confirmed by Rika Duarte ([id number]) on 08/09/2019 12:18:28 PM Referred By: EMMANUEL CORBIN Confirmed By:Rika Duarte
--- NOTE | 2019-08-09 19:05 | PN ---
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, Physician Chief Complaint: dyspnea History of Present Illness: 74 yo male with PMH of Chronic A fib, CHF, right pleural effusion s/p VATS, DM type 2, was admitted for fall from bed, weakness and increased shortness of breath. During the past month patient developed worsening dyspnea, associated with weight gain and resistance to diuretics. This morning he became hypoxic while on 4 l nc. The episode was brief and resolved after the patient was repositioned with his upper body elevated at 45 degrees. He denied any cough, palpitations or chest pain. Due to an earlier administration of the first LAsix dose he was given inadvertently a total of 120 mg of LAsix for the day. During my examination at 5 pm he is comfortable and in supine decubitus.. - Current Medication List Current Medications: Active Medications Apixaban (Eliquis -) 5 mg PO BID [facility] Last Admin: 08/09/19 10:04 Dose: 5 mg Documented by: Atorvastatin Calcium (Lipitor -) 80 mg PO [facility] Last Admin: 08/08/19 22:11 Dose: 80 mg Documented by: Carvedilol (Coreg -) 25 mg PO BID [facility] Last Admin: 08/09/19 10:04 Dose: 25 mg Documented by: Docusate Sodium (Colace -) 300 mg PO [facility] Furosemide (Lasix Injection -) 40 mg IVPUSH BID@0600,1400 [facility] Last Admin: 08/09/19 17:06 Dose: 40 mg Documented by: Glipizide (Glucotrol -) 5 mg PO BID@0700,1630 [facility] Last Admin: 08/09/19 17:05 Dose: 5 mg Documented by: Hydralazine HCl (Apresoline -) 25 mg PO TID [facility] Last Admin: 08/09/19 15:37 Dose: 25 mg Documented by: Isosorbide Mononitrate (Imdur -) 30 mg PO DAILY [facility] Last Admin: 08/09/19 10:05 Dose: 30 mg Documented by: Pantoprazole Sodium (Protonix -) 20 mg PO DAILY [facility] Last Admin: 08/09/19 10:04 Dose: 20 mg Documented by: - Objective Vital Signs: Vital Signs Temperature 98.1 F 08/09/19 16:14 Pulse Rate 69 08/09/19 16:14 Respiratory Rate 20 08/09/19 16:14 Blood Pressure 133/58 L 08/09/19 16:14 O2 Sat by Pulse Oximetry (%) 84 L 08/09/19 09:00 Constitutional: Yes: No Distress, Calm Eyes: Yes: Conjunctiva Clear, EOM Intact HENT: Yes: Atraumatic, Normocephalic Neck: Yes: Supple, Trachea Midline Cardiovascular: Yes: Regular Rate and Rhythm, S1, S2 Respiratory: Yes: On Nasal O2, Orthopnea Gastrointestinal: Yes: Normal Bowel Sounds, Soft ...Rectal Exam: Yes: Deferred Musculoskeletal: Yes: Muscle Weakness Extremities: No: Calf Tenderness Edema: No Peripheral Pulses WNL: Yes Integumentary: Yes: Other (stage 1 decubitus of the sacral area) Neurological: Yes: Alert, Oriented Psychiatric: Yes: Alert, Oriented Labs: CBC, BMP 08/07/19 04:40 08/08/19 05:45 INR, PTT INR 1.87 (0.83-1.09) H 08/07/19 05:10 - ....Imaging Chest X-ray: Other (cadiomegaly , bilateral pleural effusions, hilar congestion) EKG: Other (unchanged compared to admission Ekg) Problem List - Problems (1) Acute on chronic systolic and diastolic heart failure, NYHA class 2 Assessment/Plan: LAsix 40 mg iv bid, received today an additional dose of 40 mg iv for a total of 120 mg iv check weight daily 800 cc fluid intake daily repeat CXR demonstrated increased pleural effusion Code(s): I50.43 - ACUTE ON CHRONIC COMBINED SYSTOLIC AND DIASTOLIC HRT FAIL (2) [id number]-[id number] kidney injury Assessment/Plan: at baseline monitor K levels Code(s): N17.9 - ACUTE KIDNEY FAILURE, UNSPECIFIED; N18.9 - CHRONIC KIDNEY DISEASE, UNSPECIFIED Qualifiers: Chronic kidney disease stage: stage 4 (severe) (3) Anemia in chronic kidney disease Assessment/Plan: iron sulfate 325 mg po daily Code(s): N18.9 - CHRONIC KIDNEY DISEASE, UNSPECIFIED; D63.1 - ANEMIA IN CHRONIC KIDNEY DISEASE Qualifiers: Chronic kidney disease stage: stage 2 (mild) Qualified Code(s): N18.2 - Chronic kidney disease, stage 2 (mild); D63.1 - Anemia in chronic kidney disease (4) Atrial fibrillation Assessment/Plan: continue Coreg 25 mg po bid Eliquis 5 mg po bid Code(s): I48.91 - UNSPECIFIED ATRIAL FIBRILLATION Qualifiers: Atrial fibrillation type: paroxysmal Qualified Code(s): I48.0 - Paroxysmal atrial fibrillation (5) Diabetes 1.5, managed as type 2 Assessment/Plan: Glipizide accuchecks AC and HS with insulin coverage Code(s): E10.9 - TYPE 1 DIABETES MELLITUS WITHOUT COMPLICATIONS (6) Hx of myocardial infarction Assessment/Plan: Eliquis 5 mg po bid Hydralazine 25 mg po tid can not benefit form YUKI or ARB due to elevated baseline creatinine Code(s): I25.2 - OLD MYOCARDIAL INFARCTION (7) Malnutrition Assessment/Plan: pre albumin level low add Glucerna Code(s): E46 - UNSPECIFIED PROTEIN-CALORIE MALNUTRITION Qualifiers: Malnutrition type: protein-calorie malnutrition Protein-calorie malnutrition severity: mild Qualified Code(s): E44.1 - Mild protein-calorie malnutrition
[2019-08-09] MEDS: ATORVASTATIN CA 80 MG TABLET (FP) PO SCH (22:19)
[2019-08-09] MEDS: DOCUSATE SODIUM 100 MG CAPSULE (FP) PO SCH (22:19)
[2019-08-10] MEDS: hydrALAZINE HCL 25 MG TABLET (FP) PO SCH ×3 (05:40→22:25)
[2019-08-10] MEDS: FUROSEMIDE 40 MG/4 ML INJECTABLE VIAL IVPUSH SCH ×2 (05:40→15:39)
[2019-08-10] MEDS: glipiZIDE 5 MG TABLET (FP) PO SCH ×2 (06:00→15:38)
[2019-08-10 08:14] LABS: ALBUMIN 2.3 g/dl (3.4-5.0); BILIRUBIN,TOTAL 1.5 mg/dL (0.2-1); BLOOD UREA NITROGEN 70.8 mg/dL (7-18); CALCIUM 7.8 mg/dL (8.5-10.1); CREATININE 2.3 mg/dL (0.55-1.3); POTASSIUM 3.9 mmol/L (3.5-5.1); TOT PROT 5.8 g/dl (6.4-8.2)
[2019-08-10] MEDS: PANTOPRAZOLE 20 MG TABLET PO SCH (09:56)
[2019-08-10] MEDS: ISOSORBIDE MONONITRATE 30 MG TAB.SR.24H (FP) PO SCH (09:56)
[2019-08-10] MEDS: CARVEDILOL 25 MG TABLET (FP) PO SCH ×2 (09:57→22:25)
[2019-08-10] MEDS: APIXABAN 5 MG TABLET PO SCH ×2 (09:57→22:26)
[2019-08-10] MEDS: FERROUS SO4 325 MG TABLET (FP) PO SCH (09:57)
[2019-08-10] MEDS: INSULIN SLIDING SCALE (NOVOLOG) 1 VIAL SQ SCH ×3 (13:30→22:26)
[2019-08-10] MEDS: ATORVASTATIN CA 80 MG TABLET (FP) PO SCH (22:25)
[2019-08-10] MEDS: DOCUSATE SODIUM 100 MG CAPSULE (FP) PO SCH (22:25)
--- NOTE | 2019-08-10 22:43 | PN ---
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, Physician Chief Complaint: dyspnea and weakness persist History of Present Illness: 74 yo male with PMH of Chronic A fib, CHF, right pleural effusion s/p VATS, DM type 2, was admitted for fall from bed, weakness and increased shortness of breath. During the past month patient developed worsening dyspnea, associated with weight gain and resistance to diuretics. Dyspnea is reventing patient form ambulating, and it is associated with orthopnea - Current Medication List Current Medications: Active Medications Apixaban (Eliquis -) 5 mg PO BID [facility] Last Admin: 08/10/19 22:26 Dose: 5 mg Documented by: Atorvastatin Calcium (Lipitor -) 80 mg PO [facility] Last Admin: 08/10/19 22:25 Dose: 80 mg Documented by: Carvedilol (Coreg -) 25 mg PO BID [facility] Last Admin: 08/10/19 22:25 Dose: 25 mg Documented by: Docusate Sodium (Colace -) 300 mg PO [facility] Last Admin: 08/10/19 22:25 Dose: 300 mg Documented by: Ferrous Sulfate (Feosol -) 325 mg PO DAILY [facility] Last Admin: 08/10/19 09:57 Dose: 325 mg Documented by: Furosemide (Lasix Injection -) 40 mg IVPUSH BID@0600,1400 [facility] Last Admin: 08/10/19 15:39 Dose: 40 mg Documented by: Glipizide (Glucotrol -) 5 mg PO BID@0700,1630 [facility] Last Admin: 08/10/19 15:38 Dose: 5 mg Documented by: Hydralazine HCl (Apresoline -) 25 mg PO TID [facility] Last Admin: 08/10/19 22:25 Dose: 25 mg Documented by: Insulin Aspart (Novolog Vial Sliding Scale -) 1 vial SQ [facility]; Protocol Last Admin: 08/10/19 22:26 Dose: Not Given Documented by: Isosorbide Mononitrate (Imdur -) 30 mg PO DAILY [facility] Last Admin: 08/10/19 09:56 Dose: 30 mg Documented by: Pantoprazole Sodium (Protonix -) 20 mg PO DAILY [facility] Last Admin: 08/10/19 09:56 Dose: 20 mg Documented by: - Objective Vital Signs: Vital Signs Temperature 97.9 F 08/10/19 18:00 Pulse Rate 71 08/10/19 18:00 Respiratory Rate 20 08/10/19 18:00 Blood Pressure 123/55 L 08/10/19 18:00 O2 Sat by Pulse Oximetry (%) 100 08/10/19 09:00 Constitutional: Yes: No Distress, Calm Eyes: Yes: Conjunctiva Clear, EOM Intact HENT: Yes: Atraumatic, Normocephalic Neck: Yes: Supple, Trachea Midline Cardiovascular: Yes: Regular Rate and Rhythm, S1, S2 Respiratory: Yes: Regular, CTA Bilaterally, On Nasal O2, Orthopnea, SOB, SOB on Exertion Gastrointestinal: Yes: Normal Bowel Sounds, Soft Breast(s): Yes: WNL Musculoskeletal: Yes: WNL Edema: Yes Edema: LLE: Trace, RLE: Trace Peripheral Pulses WNL: Yes Psychiatric: Yes: Alert, Oriented Labs: CBC, BMP 08/07/19 04:40 08/10/19 06:35 INR, PTT INR 1.87 (0.83-1.09) H 08/07/19 05:10 Problem List - Problems (1) Acute on chronic systolic and diastolic heart failure, NYHA class 2 Assessment/Plan: LAsix 40 mg iv bid, check weight daily 800 cc fluid intake daily Code(s): I50.43 - ACUTE ON CHRONIC COMBINED SYSTOLIC AND DIASTOLIC HRT FAIL (2) Mobes-wr-[id number] kidney injury Assessment/Plan: at baseline monitor K levels Code(s): N17.9 - ACUTE KIDNEY FAILURE, UNSPECIFIED; N18.9 - CHRONIC KIDNEY DISEASE, UNSPECIFIED Qualifiers: Chronic kidney disease stage: stage 4 (severe) (3) Anemia in chronic kidney disease Assessment/Plan: iron sulfate 325 mg po daily Problems reviewed: Yes Code(s): N18.9 - CHRONIC KIDNEY DISEASE, UNSPECIFIED; D63.1 - ANEMIA IN CHRONIC KIDNEY DISEASE Qualifiers: Chronic kidney disease stage: stage 2 (mild) Qualified Code(s): N18.2 - Chronic kidney disease, stage 2 (mild); D63.1 - Anemia in chronic kidney disease (4) Atrial fibrillation Assessment/Plan: continue Coreg 25 mg po bid Eliquis 5 mg po bid Code(s): I48.91 - UNSPECIFIED ATRIAL FIBRILLATION Qualifiers: Atrial fibrillation type: paroxysmal Qualified Code(s): I48.0 - Paroxysmal atrial fibrillation (5) Diabetes 1.5, managed as type 2 Assessment/Plan: Glipizide accuchecks AC and HS with insulin coverage Code(s): E10.9 - TYPE 1 DIABETES MELLITUS WITHOUT COMPLICATIONS (6) Hx of myocardial infarction Assessment/Plan: Eliquis 5 mg po bid Hydralazine 25 mg po tid can not benefit form YUKI or ARB due to elevated baseline creatinine Code(s): I25.2 - OLD MYOCARDIAL INFARCTION (7) Malnutrition Assessment/Plan: pre albumin level low add Glucerna Code(s): E46 - UNSPECIFIED PROTEIN-CALORIE MALNUTRITION Qualifiers: Malnutrition type: protein-calorie malnutrition Protein-calorie mal nutrition severity: mild Qualified Code(s): E44.1 - Mild protein-calorie malnutrition
[2019-08-11] MEDS: FUROSEMIDE 40 MG/4 ML INJECTABLE VIAL IVPUSH SCH ×2 (06:08→14:23)
[2019-08-11] MEDS: glipiZIDE 5 MG TABLET (FP) PO SCH ×2 (06:08→17:48)
[2019-08-11] MEDS: hydrALAZINE HCL 25 MG TABLET (FP) PO SCH ×3 (06:08→22:48)
[2019-08-11] MEDS: INSULIN SLIDING SCALE (NOVOLOG) 1 VIAL SQ SCH ×4 (06:08→22:49)
[2019-08-11 08:01] LABS: BASO % 0.6 % (0-2.0); EOS % 2.5 % (0-4.5); HEMATOCRIT 21.4 % (35.4-49); HEMOGLOBIN 7.1 GM/dL (11.7-16.9); LYMPH % 24.5 % (8-40); MCH 31.4 pg (25.7-33.7); MEAN PLT VOLUME 9.4 fl (7.5-11.1); MONO % 9.2 % (3.8-10.2); NEUT % 63.2 % (42.8-82.8); PLATELET COUNT 119 K/MM3 (134-434); RBC 2.26 M/mm3 (4.00-5.60); RDW 17.4 % (11.9-15.9)
[2019-08-11 08:24] LABS: ALBUMIN 2.3 g/dl (3.4-5.0); BILIRUBIN,TOTAL 0.7 mg/dL (0.2-1); BLOOD UREA NITROGEN 69.2 mg/dL (7-18); CALCIUM 7.8 mg/dL (8.5-10.1); CREATININE 2.3 mg/dL (0.55-1.3); POTASSIUM 4.1 mmol/L (3.5-5.1)
[2019-08-11] MEDS: FERROUS SO4 325 MG TABLET (FP) PO SCH (10:01)
[2019-08-11] MEDS: PANTOPRAZOLE 20 MG TABLET PO SCH (10:01)
[2019-08-11] MEDS: APIXABAN 2.5 MG TABLET PO SCH ×2 (10:01→22:45)
[2019-08-11] MEDS: CARVEDILOL 25 MG TABLET (FP) PO SCH ×2 (10:01→22:46)
[2019-08-11] MEDS: ISOSORBIDE MONONITRATE 30 MG TAB.SR.24H (FP) PO SCH (10:01)
--- NOTE | 2019-08-11 11:33 | PN ---
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, Physician Chief Complaint: dyspnea is persisting History of Present Illness: 74 yo male with PMH of Chronic A fib, CHF, right pleural effusion s/p VATS, DM type 2, was admitted for fall from bed, weakness and increased shortness of breath. During the past month patient developed worsening dyspnea, associated with weight gain and resistance to diuretics. - Current Medication List Current Medications: Active Medications Alprazolam (Xanax) 0.25 mg PO DAILY PRN PRN Reason: ANXIETY Apixaban (Eliquis -) 2.5 mg PO BID [facility] Last Admin: 08/11/19 10:01 Dose: 2.5 mg Documented by: Atorvastatin Calcium (Lipitor -) 80 mg PO [facility] Last Admin: 08/10/19 22:25 Dose: 80 mg Documented by: Carvedilol (Coreg -) 25 mg PO BID [facility] Last Admin: 08/11/19 10:01 Dose: 25 mg Documented by: Docusate Sodium (Colace -) 300 mg PO [facility] Last Admin: 08/10/19 22:25 Dose: 300 mg Documented by: Ferrous Sulfate (Feosol -) 325 mg PO DAILY [facility] Last Admin: 08/11/19 10:01 Dose: 325 mg Documented by: Furosemide (Lasix Injection -) 40 mg IVPUSH BID@0600,1400 [facility] Last Admin: 08/11/19 06:08 Dose: 40 mg Documented by: Glipizide (Glucotrol -) 5 mg PO BID@0700,1630 [facility] Last Admin: 08/11/19 06:08 Dose: 5 mg Documented by: Hydralazine HCl (Apresoline -) 25 mg PO TID [facility] Last Admin: 08/11/19 06:08 Dose: 25 mg Documented by: Insulin Aspart (Novolog Vial Sliding Scale -) 1 vial SQ [facility]; Protocol Last Admin: 08/11/19 06:08 Dose: Not Given Documented by: Isosorbide Mononitrate (Imdur -) 30 mg PO DAILY [facility] Last Admin: 08/11/19 10:01 Dose: 30 mg Documented by: Pantoprazole Sodium (Protonix -) 20 mg PO DAILY [facility] Last Admin: 08/11/19 10:01 Dose: 20 mg Documented by: - Objective Vital Signs: Vital Signs Temperature 98.3 F 08/11/19 09:34 Pulse Rate 72 08/11/19 09:34 Respiratory Rate 20 08/11/19 09:34 Blood Pressure 136/65 08/11/19 09:34 O2 Sat by Pulse Oximetry (%) 96 08/10/19 21:00 Constitutional: Yes: No Distress, Anxious Eyes: Yes: Conjunctiva Clear, EOM Intact HENT: Yes: Atraumatic, Normocephalic Neck: Yes: Supple, Trachea Midline Cardiovascular: Yes: Regular Rate and Rhythm, S1, S2 Respiratory: Yes: On Nasal O2. No: SOB, Wheezes Gastrointestinal: Yes: Normal Bowel Sounds, Soft. No: Hepatomegaly, Splenomegaly Genitourinary: Yes: WNL Musculoskeletal: Yes: Muscle Weakness Extremities: No: Calf Tenderness Edema: No Peripheral Pulses WNL: Yes Neurological: Yes: Alert, Oriented Psychiatric: Yes: Alert, Other (anxious and depressed) Labs: CBC, BMP 08/11/19 06:40 08/11/19 06:40 INR, PTT INR 1.87 (0.83-1.09) H 08/07/19 05:10 Problem List - Problems (1) Acute on chronic systolic and diastolic heart failure, NYHA class 2 Assessment/Plan: LAsix 40 mg iv bid, check weight daily Code(s): I50.43 - ACUTE ON CHRONIC COMBINED SYSTOLIC AND DIASTOLIC HRT FAIL (2) Ibgnp-hw-xserpxn kidney injury Assessment/Plan: at baseline monitor K levels Code(s): N17.9 - ACUTE KIDNEY FAILURE, UNSPECIFIED; N18.9 - CHRONIC KIDNEY DISEASE, UNSPECIFIED Qualifiers: Chronic kidney disease stage: stage 4 (severe) (3) Anemia in chronic kidney disease Assessment/Plan: transfuse 1 unit PRBC iron sulfate 325 mg po daily Code(s): N18.9 - CHRONIC KIDNEY DISEASE, UNSPECIFIED; D63.1 - ANEMIA IN CHRONIC KIDNEY DISEASE Qualifiers: Chronic kidney disease stage: stage 2 (mild) Qualified Code(s): N18.2 - Chronic kidney disease, stage 2 (mild); D63.1 - Anemia in chronic kidney disease (4) Atrial fibrillation Assessment/Plan: continue Coreg 25 mg po bid Eliquis 5 mg po bid Code(s): I48.91 - UNSPECIFIED ATRIAL FIBRILLATION Qualifiers: Atrial fibrillation type: paroxysmal Qualified Code(s): I48.0 - Paroxysmal atrial fibrillation (5) Diabetes 1.5, managed as type 2 Assessment/Plan: Glipizide accuchecks AC and HS with insulin coverage Code(s): E10.9 - TYPE 1 DIABETES MELLITUS WITHOUT COMPLICATIONS (6) Hx of myocardial infarction Assessment/Plan: Eliquis 2.5 mg po bid Hydralazine 25 mg po tid can not benefit form YUKI or ARB due to elevated baseline creatinine Code(s): I25.2 - OLD MYOCARDIAL INFARCTION (7) Malnutrition Code(s): E46 - UNSPECIFIED PROTEIN-CALORIE MALNUTRITION Qualifiers: Malnutrition type: protein-calorie malnutrition Protein-calorie malnutrition severity: mild Qualified Code(s): E44.1 - Mild protein-calorie malnutrition
[2019-08-11] MEDS ORDERED: FUROSEMIDE 40 MG/4 ML INJECTABLE VIAL IVPUSH ONE (13:06)
[2019-08-11] MEDS ORDERED: PT OWN MED DRAWER 7, Y5N ONE (17:34)
[2019-08-11 21:55] LABS: HEMATOCRIT 25.6 % (35.4-49); HEMOGLOBIN 8.3 GM/dL (11.7-16.9); MCH 31.3 pg (25.7-33.7); MCHC 32.5 g/dl (32.0-35.9); MEAN CELL VOLUME 96.3 fl (80-96); MEAN PLT VOLUME 9.1 fl (7.5-11.1); PLATELET COUNT 122 K/MM3 (134-434); RBC 2.66 M/mm3 (4.00-5.60); RDW 16.6 % (11.9-15.9); WHITE BLOOD COUNT 4.6 K/mm3 (4.0-10.0)
[2019-08-11] MEDS: DOCUSATE SODIUM 100 MG CAPSULE (FP) PO SCH (22:45)
[2019-08-11] MEDS: ATORVASTATIN CA 80 MG TABLET (FP) PO SCH (22:45)
[2019-08-12] MEDS: ALPRAZolam 0.25 MG TABLET PO PRN ×2 (00:08→22:59)
[2019-08-12] MEDS: hydrALAZINE HCL 25 MG TABLET (FP) PO SCH ×3 (06:21→23:00)
[2019-08-12] MEDS: FUROSEMIDE 40 MG/4 ML INJECTABLE VIAL IVPUSH SCH ×2 (06:21→14:23)
[2019-08-12] MEDS: glipiZIDE 5 MG TABLET (FP) PO SCH ×2 (07:08→16:27)
[2019-08-12] MEDS: INSULIN SLIDING SCALE (NOVOLOG) 1 VIAL SQ SCH ×4 (07:08→23:00)
[2019-08-12] MEDS: APIXABAN 2.5 MG TABLET PO SCH ×2 (10:14→23:00)
[2019-08-12] MEDS: ISOSORBIDE MONONITRATE 30 MG TAB.SR.24H (FP) PO SCH (10:14)
[2019-08-12] MEDS: CARVEDILOL 25 MG TABLET (FP) PO SCH ×2 (10:14→23:00)
[2019-08-12] MEDS: FERROUS SO4 325 MG TABLET (FP) PO SCH (10:15)
[2019-08-12] MEDS: PANTOPRAZOLE 20 MG TABLET PO SCH (10:15)
--- NOTE | 2019-08-12 22:58 | PN ---
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, Physician Chief Complaint: feeling better, dyspnea manifests only when ambulating, ate well, received blood one unit yesterday History of Present Illness: 74 yo male with PMH of Chronic A fib, CHF, right pleural effusion s/p VATS, DM type 2, was admitted for fall from bed, weakness and increased shortness of breath. During the past month patient developed worsening dyspnea, associated with weight gain and resistance to diuretics. This morning he became hypoxic while on 4 l nc. The episode was brief and resolved after the patient was repositioned with his upper body elevated at 45 degrees. He denied any cough, palpitations or chest pain. Due to an earlier administration of the first LAsix dose he was given inadvertently a total of 120 mg of LAsix for the day. Patient is less dyspneic today and had better appetite. He is not in any acute distress. - Current Medication List Current Medications: Active Medications Alprazolam (Xanax -) 0.25 mg PO DAILY PRN PRN Reason: ANXIETY Last Admin: 08/12/19 00:08 Dose: 0.25 mg Documented by: Apixaban (Eliquis -) 2.5 mg PO BID [facility] Last Admin: 08/12/19 10:14 Dose: 2.5 mg Documented by: Atorvastatin Calcium (Lipitor -) 80 mg PO [facility] Last Admin: 08/11/19 22:45 Dose: 80 mg Documented by: Carvedilol (Coreg -) 25 mg PO BID [facility] Last Admin: 08/12/19 10:14 Dose: 25 mg Documented by: Docusate Sodium (Colace -) 300 mg PO [facility] Last Admin: 08/11/19 22:45 Dose: 300 mg Documented by: Ferrous Sulfate (Feosol -) 325 mg PO DAILY [facility] Last Admin: 08/12/19 10:15 Dose: 325 mg Documented by: Furosemide (Lasix Injection -) 40 mg IVPUSH BID@0600,1400 [facility] Last Admin: 08/12/19 14:23 Dose: 40 mg Documented by: Glipizide (Glucotrol -) 5 mg PO BID@0700,1630 [facility] Last Admin: 08/12/19 16:27 Dose: 5 mg Documented by: Hydralazine HCl (Apresoline -) 25 mg PO TID [facility] Last Admin: 08/12/19 14:23 Dose: 25 mg Documented by: Insulin Aspart (Novolog Vial Sliding Scale -) 1 vial SQ [facility]; Protocol Last Admin: 08/12/19 16:37 Dose: Not Given Documented by: Isosorbide Mononitrate (Imdur -) 30 mg PO DAILY [facility] Last Admin: 08/12/19 10:14 Dose: 30 mg Documented by: Pantoprazole Sodium (Protonix -) 20 mg PO DAILY [facility] Last Admin: 08/12/19 10:15 Dose: 20 mg Documented by: - Objective Vital Signs: Vital Signs Temperature 98.2 F 08/12/19 21:43 Pulse Rate 71 08/12/19 21:43 Respiratory Rate 22 H 08/12/19 21:43 Blood Pressure 125/56 L 08/12/19 21:43 O2 Sat by Pulse Oximetry (%) 99 08/12/19 21:00 Constitutional: Yes: No Distress, Calm Eyes: Yes: Conjunctiva Clear, EOM Intact HENT: Yes: Atraumatic, Normocephalic Cardiovascular: Yes: S1, S2 Gastrointestinal: Yes: Normal Bowel Sounds, Soft ...Rectal Exam: Yes: Deferred, Erythema Extremities: No: Calf Tenderness Labs: CBC, BMP 08/11/19 21:30 08/11/19 06:40 INR, PTT INR 1.87 (0.83-1.09) H 08/07/19 05:10 Problem List - Problems (1) Acute on chronic systolic and diastolic heart failure, NYHA class 2 Assessment/Plan: LAsix 40 mg iv bid, received today an additional dose of 40 mg iv for a total of 120 mg iv check weight daily 800 cc fluid intake daily repeat CXR demonstrated increased pleural effusion Code(s): I50.43 - ACUTE ON CHRONIC COMBINED SYSTOLIC AND DIASTOLIC HRT FAIL (2) Teakq-iz-yfhrtxk kidney injury Assessment/Plan: at baseline monitor K levels Code(s): N17.9 - ACUTE KIDNEY FAILURE, UNSPECIFIED; N18.9 - CHRONIC KIDNEY DISEASE, UNSPECIFIED Qualifiers: Chronic kidney disease stage: stage 4 (severe) (3) Anemia in chronic kidney disease Assessment/Plan: iron sulfate 325 mg po daily Code(s): N18.9 - CHRONIC KIDNEY DISEASE, UNSPECIFIED; D63.1 - ANEMIA IN CHRONIC KIDNEY DISEASE Qualifiers: Chronic kidney disease stage: stage 2 (mild) Qualified Code(s): N18.2 - Chronic kidney disease, stage 2 (mild); D63.1 - Anemia in chronic kidney disease (4) Atrial fibrillation Assessment/Plan: continue Coreg 25 mg po bid Eliquis 5 mg po bid Code(s): I48.91 - UNSPECIFIED ATRIAL FIBRILLATION Qualifiers: Atrial fibrillation type: paroxysmal Qualified Code(s): I48.0 - Paroxysmal atrial fibrillation (5) Diabetes 1.5, managed as type 2 Code(s): E10.9 - TYPE 1 DIABETES MELLITUS WITHOUT COMPLICATIONS (6) Hx of myocardial infarction Code(s): I25.2 - OLD MYOCARDIAL INFARCTION (7) Malnutrition Assessment/Plan: pre albumin level low add Glucerna Code(s): E46 - UNSPECIFIED PROTEIN-CALORIE MALNUTRITION Qualifiers: Malnutrition type: protein-calorie malnutrition Protein-calorie malnutrition severity: mild Qualified Code(s): E44.1 - Mild protein-calorie m alnutrition
[2019-08-12] MEDS: DOCUSATE SODIUM 100 MG CAPSULE (FP) PO SCH (23:00)
[2019-08-12] MEDS: ATORVASTATIN CA 80 MG TABLET (FP) PO SCH (23:00)
[2019-08-13] MEDS: FUROSEMIDE 40 MG/4 ML INJECTABLE VIAL IVPUSH SCH ×2 (06:26→17:23)
[2019-08-13] MEDS: hydrALAZINE HCL 25 MG TABLET (FP) PO SCH ×3 (06:27→21:16)
[2019-08-13] MEDS: INSULIN SLIDING SCALE (NOVOLOG) 1 VIAL SQ SCH ×4 (07:00→21:17)
[2019-08-13] MEDS: glipiZIDE 5 MG TABLET (FP) PO SCH ×2 (07:00→16:57)
[2019-08-13 07:40] LABS: BASO % 0.9 % (0-2.0); EOS % 3.6 % (0-4.5); HEMATOCRIT 24.9 % (35.4-49); HEMOGLOBIN 8.3 GM/dL (11.7-16.9); LYMPH % 21.7 % (8-40); MCH 31.7 pg (25.7-33.7); MCHC 33.4 g/dl (32.0-35.9); MEAN CELL VOLUME 94.8 fl (80-96); MEAN PLT VOLUME 8.8 fl (7.5-11.1); MONO % 8.4 % (3.8-10.2); NEUT % 65.4 % (42.8-82.8); PLATELET COUNT 115 K/MM3 (134-434); RBC 2.63 M/mm3 (4.00-5.60); RDW 16.7 % (11.9-15.9); WHITE BLOOD COUNT 4.2 K/mm3 (4.0-10.0)
[2019-08-13 08:44] LABS: ALBUMIN 2.3 g/dl (3.4-5.0); BILIRUBIN,TOTAL 0.8 mg/dL (0.2-1); BLOOD UREA NITROGEN 70.9 mg/dL (7-18); CALCIUM 7.6 mg/dL (8.5-10.1); CREATININE 2.4 mg/dL (0.55-1.3); POTASSIUM 4.3 mmol/L (3.5-5.1)
[2019-08-13] MEDS ORDERED: FUROSEMIDE 40 MG/4 ML INJECTABLE VIAL IVPUSH ONE (10:46)
[2019-08-13] MEDS: CARVEDILOL 25 MG TABLET (FP) PO SCH ×2 (11:21→21:16)
[2019-08-13] MEDS: APIXABAN 2.5 MG TABLET PO SCH ×2 (11:21→21:16)
[2019-08-13] MEDS: PANTOPRAZOLE 20 MG TABLET PO SCH (11:21)
[2019-08-13] MEDS: FERROUS SO4 325 MG TABLET (FP) PO SCH (11:21)
[2019-08-13] MEDS: ISOSORBIDE MONONITRATE 30 MG TAB.SR.24H (FP) PO SCH (11:21)
[2019-08-13] MEDS ORDERED: INSULIN (NOVOLOG) ASPART 100 UNITS/ML 10ML VIAL ONE ×3 (12:23→20:34)
[2019-08-13 13:44] VITALS: BMI 20.9
[2019-08-13] MEDS: DOCUSATE SODIUM 100 MG CAPSULE (FP) PO SCH (21:16)
[2019-08-13] MEDS: ATORVASTATIN CA 80 MG TABLET (FP) PO SCH (21:17)
--- NOTE | 2019-08-13 23:04 | PN ---
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, Physician Chief Complaint: continues to have dyspnea and experience weakness History of Present Illness: 74 yo male with PMH of Chronic A fib, CHF, right pleural effusion s/p VATS, DM type 2, was admitted for fall from bed, weakness and increased shortness of breath. During the past month patient developed worsening dyspnea, associated with weight gain and decrease improvement with diuretic administration. Patient received 1 unit of PRBC since admission . - Current Medication List Current Medications: Active Medications Alprazolam (Xanax -) 0.25 mg PO DAILY PRN PRN Reason: ANXIETY Last Admin: 08/12/19 22:59 Dose: 0.25 mg Documented by: Apixaban (Eliquis -) 2.5 mg PO BID [facility] Last Admin: 08/13/19 21:16 Dose: 2.5 mg Documented by: Atorvastatin Calcium (Lipitor -) 80 mg PO [facility] Last Admin: 08/13/19 21:17 Dose: 80 mg Documented by: Carvedilol (Coreg -) 25 mg PO BID [facility] Last Admin: 08/13/19 21:16 Dose: 25 mg Documented by: Docusate Sodium (Colace -) 300 mg PO [facility] Last Admin: 08/13/19 21:16 Dose: 300 mg Documented by: Ferrous Sulfate (Feosol -) 325 mg PO DAILY [facility] Last Admin: 08/13/19 11:21 Dose: 325 mg Documented by: Furosemide (Lasix Injection -) 40 mg IVPUSH BID@0600,1400 [facility] Last Admin: 08/13/19 17:23 Dose: Not Given Documented by: Glipizide (Glucotrol -) 5 mg PO BID@0700,1630 [facility] Last Admin: 08/13/19 16:57 Dose: 5 mg Documented by: Hydralazine HCl (Apresoline -) 25 mg PO TID [facility] Last Admin: 08/13/19 21:16 Dose: 25 mg Documented by: Insulin Aspart (Novolog Vial Sliding Scale -) 1 vial SQ [facility]; Protocol Last Admin: 08/13/19 21:17 Dose: Not Given Documented by: Isosorbide Mononitrate (Imdur -) 30 mg PO DAILY [facility] Last Admin: 08/13/19 11:21 Dose: 30 mg Documented by: Pantoprazole Sodium (Protonix -) 20 mg PO DAILY [facility] Last Admin: 08/13/19 11:21 Dose: 20 mg Documented by: - Objective Vital Signs: Vital Signs Temperature 97.7 F 08/13/19 21:17 Pulse Rate 72 08/13/19 21:17 Respiratory Rate 19 08/13/19 21:17 Blood Pressure 155/69 08/13/19 21:17 O2 Sat by Pulse Oximetry (%) 100 08/13/19 21:00 Constitutional: Yes: No Distress, Calm Eyes: Yes: Conjunctiva Clear, EOM Intact HENT: Yes: Atraumatic, Normocephalic Neck: Yes: Supple, Trachea Midline Cardiovascular: Yes: Regular Rate and Rhythm Respiratory: Yes: Regular, CTA Bilaterally, Diminished (air entry at bases) Gastrointestinal: Yes: Normal Bowel Sounds, Soft. No: Splenomegaly, Tenderness Breast(s): Yes: WNL Musculoskeletal: Yes: Muscle Weakness Extremities: No: Calf Tenderness Edema: No Peripheral Pulses WNL: Yes Integumentary: Yes: Other (stage 1 sacral decubitus ulcer) Neurological: Yes: Alert, Oriented Psychiatric: Yes: Alert, Oriented Labs: CBC, BMP 08/13/19 07:09 08/13/19 07:09 INR, PTT INR 1.87 (0.83-1.09) H 08/07/19 05:10 Problem List - Problems (1) Acute on chronic systolic and diastolic heart failure, NYHA class 2 Assessment/Plan: LAsix 40 mg iv bid, fluid restriction 1000cc Code(s): I50.43 - ACUTE ON CHRONIC COMBINED SYSTOLIC AND DIASTOLIC HRT FAIL (2) Roskk-zx-lisfqqm kidney injury Assessment/Plan: at baseline monitor K levels Code(s): N17.9 - ACUTE KIDNEY FAILURE, UNSPECIFIED; N18.9 - CHRONIC KIDNEY DISEASE, UNSPECIFIED Qualifiers: Chronic kidney disease stage: stage 4 (severe) (3) Anemia in chronic kidney disease Assessment/Plan: transfused 1 unit PRBC iron sulfate 325 mg po daily Problems reviewed: Yes Code(s): N18.9 - CHRONIC KIDNEY DISEASE, UNSPECIFIED; D63.1 - ANEMIA IN CHRONIC KIDNEY DISEASE Qualifiers: Chronic kidney disease stage: stage 2 (mild) Qualified Code(s): N18.2 - Chronic kidney disease, stage 2 (mild); D63.1 - Anemia in chronic kidney disease (4) Atrial fibrillation Assessment/Plan: continue Coreg 25 mg po bid Eliquis 2.5 mg po bid Hydralazine 25 mg po tid Code(s): I48.91 - UNSPECIFIED ATRIAL FIBRILLATION Qualifiers: Atrial fibrillation type: paroxysmal Qualified Code(s): I48.0 - Paroxysmal atrial fibrillation (5) Diabetes 1.5, managed as type 2 Assessment/Plan: Glipizide accuchecks AC and HS with insulin coverage Code(s): E10.9 - TYPE 1 DIABETES MELLITUS WITHOUT COMPLICATIONS (6) Malnutrition Assessment/Plan: pre albumin level low Glucerna Code(s): E46 - UNSPECIFIED PROTEIN-CALORIE MALNUTRITION Qualifiers: Malnutrition type: protein-calorie malnutrition Protein-calorie malnutrition severity: mild Qualified Code(s): E44.1 - Mild protein-calorie malnutrition (7) Pressure ulcer Assessment/Plan: Allevyn application every other day and as needed Code(s): L89.90 - PRESSURE ULCER OF UNSPECIFIED SITE, UNSPECIFIED STAGE Qualifiers: Pressure injury location: other site Pressure injury stage: stage 1 Qualified Code(s): L89.891 - Pressure ulcer of other site, stage 1
[2019-08-14] MEDS: ALPRAZolam 0.25 MG TABLET PO PRN ×2 (01:12→22:47)
[2019-08-14] MEDS: hydrALAZINE HCL 25 MG TABLET (FP) PO SCH ×3 (05:43→22:47)
[2019-08-14] MEDS: FUROSEMIDE 40 MG/4 ML INJECTABLE VIAL IVPUSH SCH ×2 (05:43→15:33)
[2019-08-14] MEDS: INSULIN SLIDING SCALE (NOVOLOG) 1 VIAL SQ SCH ×4 (06:01→22:48)
[2019-08-14] MEDS: glipiZIDE 5 MG TABLET (FP) PO SCH ×2 (06:01→17:30)
[2019-08-14 08:15] LABS: BASO % 0.8 % (0-2.0); EOS % 3.1 % (0-4.5); HEMOGLOBIN 9.4 GM/dL (11.7-16.9); MCH 31.7 pg (25.7-33.7); MCHC 33.5 g/dl (32.0-35.9); MEAN CELL VOLUME 94.7 fl (80-96); MEAN PLT VOLUME 9.3 fl (7.5-11.1); MONO % 9.8 % (3.8-10.2); NEUT % 67.3 % (42.8-82.8); PLATELET COUNT 119 K/MM3 (134-434); RBC 2.96 M/mm3 (4.00-5.60); RDW 16.3 % (11.9-15.9); WHITE BLOOD COUNT 4.3 K/mm3 (4.0-10.0)
[2019-08-14] MEDS ORDERED: PT OWN MED DRAWER 7, Y5N ONE ×3 (08:30→17:02)
[2019-08-14] MEDS: buPROPion HCL 75 MG TABLET PO SCH ×2 (08:34→17:30)
[2019-08-14 08:36] LABS: ALBUMIN 2.3 g/dl (3.4-5.0); BLOOD UREA NITROGEN 75.6 mg/dL (7-18); CREATININE 2.4 mg/dL (0.55-1.3); TOT PROT 6.1 g/dl (6.4-8.2)
[2019-08-14] MEDS: CARVEDILOL 25 MG TABLET (FP) PO SCH ×2 (09:25→22:48)
[2019-08-14] MEDS: APIXABAN 2.5 MG TABLET PO SCH ×2 (09:25→22:48)
[2019-08-14] MEDS: PANTOPRAZOLE 20 MG TABLET PO SCH (09:26)
[2019-08-14] MEDS: FERROUS SO4 325 MG TABLET (FP) PO SCH (09:26)
[2019-08-14] MEDS: ISOSORBIDE MONONITRATE 30 MG TAB.SR.24H (FP) PO SCH (09:26)
--- NOTE | 2019-08-14 20:08 | PN ---
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, Physician Chief Complaint: feeling better, received a second unit of blood today and feels well, there is anxiety associated with short moments of dyspnea History of Present Illness: 74 yo male with PMH of Chronic A fib, CHF, right pleural effusion s/p VATS, DM type 2, was admitted for fall from bed, weakness and increased shortness of breath. During the past month patient developed worsening dyspnea, associated with weight gain and resistance to diuretics. Patient received 2 units of PRBC since admission and is feeling better. - Current Medication List Current Medications: Active Medications Alprazolam (Xanax -) 0.25 mg PO DAILY PRN PRN Reason: ANXIETY Last Admin: 08/14/19 01:12 Dose: 0.25 mg Documented by: Apixaban (Eliquis -) 2.5 mg PO BID [facility] Last Admin: 08/14/19 09:25 Dose: 2.5 mg Documented by: Atorvastatin Calcium (Lipitor -) 80 mg PO [facility] Last Admin: 08/13/19 21:17 Dose: 80 mg Documented by: Bupropion HCl (Wellbutrin -) 75 mg PO BID@0800,1800 [facility] Last Admin: 08/14/19 17:30 Dose: 75 mg Documented by: Carvedilol (Coreg -) 25 mg PO BID [facility] Last Admin: 08/14/19 09:25 Dose: 25 mg Documented by: Docusate Sodium (Colace -) 300 mg PO [facility] Last Admin: 08/13/19 21:16 Dose: 300 mg Documented by: Ferrous Sulfate (Feosol -) 325 mg PO DAILY [facility] Last Admin: 08/14/19 09:26 Dose: 325 mg Documented by: Furosemide (Lasix Injection -) 40 mg IVPUSH BID@0600,1400 [facility] Last Admin: 08/14/19 15:33 Dose: 40 mg Documented by: Glipizide (Glucotrol -) 5 mg PO BID@0700,1630 [facility] Last Admin: 08/14/19 17:30 Dose: 5 mg Documented by: Hydralazine HCl (Apresoline -) 25 mg PO TID [facility] Last Admin: 08/14/19 15:34 Dose: 25 mg Documented by: Insulin Aspart (Novolog Vial Sliding Scale -) 1 vial SQ [facility]; Protocol Last Admin: 08/14/19 17:36 Dose: 2 units Documented by: Isosorbide Mononitrate (Imdur -) 30 mg PO DAILY [facility] Last Admin: 08/14/19 09:26 Dose: 30 mg Documented by: Pantoprazole Sodium (Protonix -) 20 mg PO DAILY [facility] Last Admin: 08/14/19 09:26 Dose: 20 mg Documented by: - Objective Vital Signs: Vital Signs Temperature 97.8 F 08/14/19 14:38 Pulse Rate 78 08/14/19 14:38 Respiratory Rate 18 08/14/19 14:38 Blood Pressure 122/58 L 08/14/19 14:38 O2 Sat by Pulse Oximetry (%) 100 08/14/19 09:00 Constitutional: Yes: No Distress, Calm Eyes: Yes: Conjunctiva Clear, EOM Intact HENT: Yes: Atraumatic, Normocephalic Neck: Yes: Supple, Trachea Midline Cardiovascular: Yes: Regular Rate and Rhythm, S1, S2 Respiratory: Yes: Regular, CTA Bilaterally, Other (crackles at bases). No: SOB, Wheezes Gastrointestinal: Yes: Normal Bowel Sounds, Soft. No: Splenomegaly, Tenderness Breast(s): Yes: WNL Musculoskeletal: Yes: Muscle Weakness Extremities: No: Calf Tenderness Edema: No Neurological: Yes: Alert, Oriented Psychiatric: Yes: Alert, Oriented, Other (depressed, anxious). No: Suicidal I deation Labs: CBC, BMP 08/14/19 07:28 08/14/19 07:28 INR, PTT INR 1.87 (0.83-1.09) H 08/07/19 05:10 Problem List - Problems (1) Acute on chronic systolic and diastolic heart failure, NYHA class 2 Assessment/Plan: LAsix 40 mg iv bid, discontinue fluid restriction CXR in am Code(s): I50.43 - ACUTE ON CHRONIC COMBINED SYSTOLIC AND DIASTOLIC HRT FAIL (2) Hdyot-vc-mojizag kidney injury Assessment/Plan: at baseline monitor K levels Problems reviewed: Yes Code(s): N17.9 - ACUTE KIDNEY FAILURE, UNSPECIFIED; N18.9 - CHRONIC KIDNEY DISEASE, UNSPECIFIED Qualifiers: Chronic kidney disease stage: stage 4 (severe) (3) Anemia in chronic kidney disease Assessment/Plan: S/P transfusion of 2 UPRBC iron sulfate 325 mg po daily Problems reviewed: Yes Code(s): N18.9 - CHRONIC KIDNEY DISEASE, UNSPECIFIED; D63.1 - ANEMIA IN CHRONIC KIDNEY DISEASE Qualifiers: Chronic kidney disease stage: stage 2 (mild) Qualified Code(s): N18.2 - Chronic kidney disease, stage 2 (mild); D63.1 - Anemia in chronic kidney disease (4) Atrial fibrillation Assessment/Plan: continue Coreg 25 mg po bid Eliquis 2.5 mg po bid Problems reviewed: Yes Code(s): I48.91 - UNSPECIFIED ATRIAL FIBRILLATION Qualifiers: Atrial fibrillation type: paroxysmal Qualified Code(s): I48.0 - Paroxysmal atrial fibrillation (5) Diabetes 1.5, managed as type 2 Assessment/Plan: Glipizide accuchecks AC and HS with insulin coverage Code(s): E10.9 - TYPE 1 DIABETES MELLITUS WITHOUT COMPLICATIONS (6) Malnutrition Assessment/Plan: pre albumin level low change Glucerna to Nepro Code(s): E46 - UNSPECIFIED PROTEIN-CALORIE MALNUTRITION Qualifiers: Malnutrition type: protein-calorie malnutrition Protein-calorie malnutrition severity: mild Qualified Code(s): E44.1 - Mild protein-calorie malnutrition (7) Depression Assessment/Plan: with anxiety start Wellbutrin 75 mg po bid Code(s): F32.9 - MAJOR DEPRESSIVE DISORDER, SINGLE EPISODE, UNSPECIFIED
[2019-08-14] MEDS: ATORVASTATIN CA 80 MG TABLET (FP) PO SCH (22:47)
[2019-08-14] MEDS: DOCUSATE SODIUM 100 MG CAPSULE (FP) PO SCH (22:48)
[2019-08-15] MEDS: INSULIN SLIDING SCALE (NOVOLOG) 1 VIAL SQ SCH ×3 (06:30→18:13)
[2019-08-15] MEDS: glipiZIDE 5 MG TABLET (FP) PO SCH ×2 (06:30→18:13)
[2019-08-15] MEDS: hydrALAZINE HCL 25 MG TABLET (FP) PO SCH ×2 (06:43→15:41)
[2019-08-15] MEDS: FUROSEMIDE 40 MG/4 ML INJECTABLE VIAL IVPUSH SCH ×2 (06:43→15:40)
[2019-08-15 07:09] LABS: BASO % 0.7 % (0-2.0); EOS % 3.5 % (0-4.5); HEMATOCRIT 27.5 % (35.4-49); HEMOGLOBIN 9.2 GM/dL (11.7-16.9); LYMPH % 22.8 % (8-40); MCHC 33.5 g/dl (32.0-35.9); MEAN CELL VOLUME 95.6 fl (80-96); MEAN PLT VOLUME 8.8 fl (7.5-11.1); MONO % 8.7 % (3.8-10.2); NEUT % 64.3 % (42.8-82.8); PLATELET COUNT 116 K/MM3 (134-434); RBC 2.88 M/mm3 (4.00-5.60); RDW 16.1 % (11.9-15.9); WHITE BLOOD COUNT 4.2 K/mm3 (4.0-10.0)
[2019-08-15 07:59] LABS: ALBUMIN 2.3 g/dl (3.4-5.0); BILIRUBIN,TOTAL 0.9 mg/dL (0.2-1); BLOOD UREA NITROGEN 82.7 mg/dL (7-18); CALCIUM 8.2 mg/dL (8.5-10.1); CREATININE 2.7 mg/dL (0.55-1.3); POTASSIUM 4.1 mmol/L (3.5-5.1)
[2019-08-15] MEDS ORDERED: PT OWN MED DRAWER 7, Y5N ONE (10:20)
[2019-08-15] MEDS: buPROPion HCL 75 MG TABLET PO SCH ×2 (10:38→18:13)
[2019-08-15] MEDS: ISOSORBIDE MONONITRATE 30 MG TAB.SR.24H (FP) PO SCH (10:38)
[2019-08-15] MEDS: CARVEDILOL 25 MG TABLET (FP) PO SCH (10:38)
[2019-08-15] MEDS: APIXABAN 2.5 MG TABLET PO SCH (10:38)
[2019-08-15] MEDS: FERROUS SO4 325 MG TABLET (FP) PO SCH (10:38)
[2019-08-15] MEDS: PANTOPRAZOLE 20 MG TABLET PO SCH (10:38)
[2019-08-15 14:12] VITALS: BP 136/72; PULSE 71; TEMP 98
--- NOTE | 2019-08-15 18:41 | DS ---
Physical Examination Vital Signs: Vital Signs Temperature 98.0 F 08/15/19 14:10 Pulse Rate 71 08/15/19 14:10 Respiratory Rate 18 08/15/19 14:10 Blood Pressure 136/72 08/15/19 14:10 O2 Sat by Pulse Oximetry (%) 97 08/15/19 10:43 Constitutional: Yes: No Distress, Calm Eyes: Yes: Conjunctiva Clear, EOM Intact HENT: Yes: Atraumatic, Normocephalic Neck: Yes: Supple, Trachea Midline Cardiovascular: Yes: Regular Rate and Rhythm, S1, S2 Respiratory: Yes: On Nasal O2, Other (scattered crackles at both bases). No: Orthopnea, SOB, SOB on Exertion Gastrointestinal: Yes: Normal Bowel Sounds, Soft. No: Distention, Melena, Splenomegaly Extremities: No: Calf Tenderness Edema: No Peripheral Pulses WNL: Yes Integumentary: Yes: Other (stage 1 decubitus ulcer) Neurological: Yes: Alert, Oriented Psychiatric: Yes: Alert, Oriented Labs: CBC, BMP 08/15/19 06:30 08/15/19 06:30 Discharge Summary Problems reviewed: Yes Reason For Visit: CONGESTIVE HEART FAILURE CHF Anemia CRF A fib Procedures: Principal: transfusion 2 uPRBC. IV diuresis Hospital Course: 74 yo male was admitted for fall from bed at home and weakness with increased shortness of breath. The patient was found to have ARF on top of CRF and exacerbation of chronic anemia.In the past the patient had repeated episodes of anemia for which he was transfused. He is refusing endoscopy or colonoscopy. During the current admission the patient had a CT scan of the brain which was negative. 2 units of PRBC were transfused correcting his HT from a level of 21 to 27. Cardiac enzymes panel was negative and the EKG's were unchanged. Currently the patient tolerates ambulation and is comfortable on 3 l nc with saturations of 97%. Repeat CXR showed improved congestion, persisting left pleural effusion. He will be discharged today with instructions to continue all previous medications and LAsix at a dose of 40 mg . He was advised to follow up with his [facility] and [facility] for diuretic dosage adjustment. Condition: Stable - Instructions Referrals: Siobhan Mondragon MD [Primary Care Provider] - - Home Medications Comprehensive Discharge Medication List: Ambulatory Orders Allopurinol [Zyloprim -] 100 mg PO DAILY 07/27/19 Atorvastatin Ca [Lipitor] 80 mg PO HS 07/27/19 Carvedilol 25 mg PO BID 07/27/19 Cholecalciferol (Vitamin D3) [Vitamin D3 -] 1,000 unit PO DAILY 07/27/19 Ferrous Sulfate [Iron] 325 mg PO DAILY 07/27/19 Folic Acid 1 mg PO DAILY 07/27/19 Furosemide 40 mg PO DAILY 07/27/19 Hydralazine HCl 25 mg PO BID 07/27/19 Isosorbide Mononitrate [Isosorbide Mononitrate ER] 30 mg PO BID 07/27/19 Allopurinol [Zyloprim -] 100 mg PO DAILY tablet 07/30/19 Atorvastatin Ca [Lipitor] 80 mg PO HS tablet 07/30/19 Carvedilol [Coreg -] 25 mg PO BID tablet 07/30/19 Glipizide [Glucotrol -] 5 mg PO BID@0700,1630 tablet 07/30/19 Alprazolam [Xanax] 0.25 mg PO DAILY PRN 7 Days #60 tablet MDD 2 08/15/19 Apixaban [Eliquis -] 2.5 mg PO BID 90 Days #180 tablet 08/15/19 Atorvastatin Ca [Lipitor] 80 mg PO HS tablet 08/15/19 Bupropion HCl [Wellbutrin -] 75 mg PO BID@0800,1800 90 Days #180 tablet 08/15/19 Carvedilol [Coreg -] 25 mg PO BID tablet 08/15/19 Docusate Sodium [Colace -] 300 mg PO HS capsule 08/15/19 Ferrous Sulfate [Feosol] 325 mg PO DAILY ud 08/15/19 Glipizide [Glucotrol -] 5 mg PO BID@0700,1630 tablet 08/15/19 Isosorbide Mononitrate [Imdur -] 30 mg PO DAILY tab.sr.24h 08/15/19 Pantoprazole Sodium [Protonix -] 20 mg PO DAILY tablet.ec 08/15/19 hydrALAZINE HCL [Apresoline -] 25 mg PO TID tablet 08/15/19 hydrALAZINE HCL [Apresoline -] 25 mg PO TID #0 tablet 08/15/19
== END 2019-08-15 19:20 | disposition home or self-care (01) | DRG 291 ==
LOC: JER 04:01 → JERBED 07:50 → J7W 22:06
PROVIDERS: ADMIT Internal Medicine; ATTEND Internal Medicine
PROC: 30233N1 Transfusion of Nonautologous Red Blood Cells into Peripheral Vein, Percutaneous Approach (ICD-10-PCS; principal; 2019-08-11)
PROC: 30233N1 Transfusion of Nonautologous Red Blood Cells into Peripheral Vein, Percutaneous Approach (ICD-10-PCS; 2019-08-13)
DX: I13.0 Hypertensive heart and chronic kidney disease with heart failure and stage 1 through stage 4 chronic kidney disease, or unspecified chronic kidney disease (principal); I50.43 Acute on chronic combined systolic (congestive) and diastolic (congestive) heart failure; N17.9 Acute kidney failure, unspecified; E46 Unspecified protein-calorie malnutrition; E11.40 Type 2 diabetes mellitus with diabetic neuropathy, unspecified; E11.22 Type 2 diabetes mellitus with diabetic chronic kidney disease; N18.3 Chronic kidney disease, stage 3 (moderate); I48.91 Unspecified atrial fibrillation; R09.02 Hypoxemia; D63.1 Anemia in chronic kidney disease; I25.10 Atherosclerotic heart disease of native coronary artery without angina pectoris; W06.XXXA Fall from bed, initial encounter; Y93.9 Activity, unspecified; Y92.003 Bedroom of unspecified non-institutional (private) residence as the place of occurrence of the external cause; Y99.9 Unspecified external cause status; C44.90 Unspecified malignant neoplasm of skin, unspecified; I25.2 Old myocardial infarction; E78.5 Hyperlipidemia, unspecified; K21.9 Gastro-esophageal reflux disease without esophagitis; F41.8 Other specified anxiety disorders; M19.90 Unspecified osteoarthritis, unspecified site; R06.00 Dyspnea, unspecified; N28.9 Disorder of kidney and ureter, unspecified; D29.1 Benign neoplasm of prostate; N20.0 Calculus of kidney; M10.9 Gout, unspecified; E04.9 Nontoxic goiter, unspecified; E78.00 Pure hypercholesterolemia, unspecified; R53.1 Weakness; Z79.01 Long term (current) use of anticoagulants; Z79.84 Long term (current) use of oral hypoglycemic drugs; Z87.891 Personal history of nicotine dependence; Z98.890 Other specified postprocedural states; Z99.81 Dependence on supplemental oxygen; Z95.5 Presence of coronary angioplasty implant and graft; Z98.41 Cataract extraction status, right eye; Z98.42 Cataract extraction status, left eye
CPT/HCPCS: 36415; 36430; 36511; 70450-TC; 71045-TC-FY; 71046-TC-FY; 72125-TC; 72170-TC-FY; 80053; 81003; 82962; 83735; 83880; 84134; 84484; 85025; 85027; 85610; 85730; 86850; 86900; 86901; 86922; 87086; 87186; 87804; 93005; 93010; 97116-GP; 97161-GP; 99285-25; P9038; P9058

== ENCOUNTER 2019-11-25 11:59 | Inpatient (IN) | payer OTHER, BC ==
[2019-11-25] MEDS ORDERED: ACETAMINOPHEN 1000 MG/100 ML VIAL (NON FORMULARY) IVPB ONE (12:26)
--- NOTE | 2019-11-25 12:33 | PDOC ---
History of Present Illness - General Chief Complaint: Injury Stated Complaint: Injury Time Seen by Provider: 11/25/19 12:06 History Source: Patient, EMS, Old Records Exam Limitations: No Limitations - History of Present Illness Initial Comments: HPI: 74 y/o male presenting to [facility] ER via EMS from home complaining of pain to the anterior portion of his right thigh after falling at home approx. 30 min prior to arrival. Pt states he was standing up from the toilet when his socks slipped on the tile floor. He fell onto the right hip. Denies striking his head or neck. Denies LOC. Unable to stand and walk after the fall. No h/o orthopedic surgery. In usual state of health recently. Historical records indicate he is on Eliquis, but the pt cannot recall the names of his medications. Medical Hx: HTN, DM, HLD, Anxiety, Depression, CKD, CAD (anterolateral lMI s/p PCI 1994/1995/2016) CHF, Afib ( on Eliquis), chronic right sided pleural effusion s/p VATS On home oxygen PRN. Past History - Medical History Allergies/Adverse Reactions: Allergies Allergy/AdvReac Type Severity Reaction Status Date / Time pioglitazone HCl [From Actos] Allergy Severe CHF Verified 11/25/19 13:46 Home Medications: Ambulatory Orders Cholecalciferol (Vitamin D3) [Vitamin D3 -] 1,000 unit PO DAILY 07/27/19 Ferrous Sulfate [Iron] 325 mg PO DAILY 07/27/19 Folic Acid 1 mg PO DAILY 07/27/19 Furosemide 40 mg PO DAILY 07/27/19 Isosorbide Mononitrate [Isosorbide Mononitrate ER] 30 mg PO BID 07/27/19 Allopurinol [Zyloprim -] 100 mg PO DAILY tablet 07/30/19 Carvedilol [Coreg -] 25 mg PO BID tablet 07/30/19 Glipizide [Glucotrol -] 5 mg PO BID@0700,1630 tablet 07/30/19 Alprazolam [Xanax] 0.25 mg PO DAILY PRN 7 Days #60 tablet MDD 2 08/15/19 Apixaban [Eliquis -] 2.5 mg PO BID 90 Days #180 tablet 08/15/19 Atorvastatin Ca [Lipitor] 80 mg PO HS tablet 08/15/19 Docusate Sodium [Colace -] 300 mg PO HS capsule 08/15/19 Pantoprazole Sodium [Protonix -] 20 mg PO DAILY tablet.ec 08/15/19 hydrALAZINE HCL [Apresoline -] 25 mg PO TID #0 tablet 08/15/19 Cyproheptadine [Periactin -] 4 mg PO HS 10/28/19 Escitalopram Oxalate [Lexapro -] 10 mg PO DAILY 10/28/19 Nitroglycerin Sublingual [Nitrostat -] 0.4 mg SL PRN PRN 10/28/19 Allopurinol [Zyloprim -] 100 mg PO DAILY tablet 10/30/19 Alprazolam [Xanax] 0.25 mg PO Q12H PRN tablet 10/30/19 Apixaban [Eliquis -] 2.5 mg PO BID tablet 10/30/19 Atorvastatin Ca [Lipitor] 80 mg PO HS tablet 10/30/19 Carvedilol [Coreg -] 25 mg PO BID tablet 10/30/19 Escitalopram Oxalate [Lexapro -] 20 mg PO DAILY tablet 10/30/19 Anemia: No Asthma: No Cancer: Yes (skin) Cardiac Disorders: Yes (cad- cardiac cath, 6 stents total) CVA: No COPD: Yes CHF: Yes DVT: No Dementia: No Diabetes: Yes Dialysis: No (CKD) GI Disorders: No Disorders: No HTN: Yes Hypercholesterolemia: Yes Liver Disease: No Seizures: No Thyroid Disease: No - Surgical History Abdominal Surgery: Yes (HERNIA repair) Appendectomy: No Cardiac Surgery: Yes (STENTS , 07/2016) Cholecystectomy: No Lung Surgery: Yes (bronchoscopy 03/17, right chest pleural catheter) Neurologic Surgery: No Orthopedic Surgery: No - Immunization History Td Vaccination: Yes Immunization Up to Date: Yes - Psycho-Social/Smoking History Smoking Status: No Smoking History: Former smoker Have you smoked in the past 12 months: No Number of Cigarettes Smoked Daily: 0 If you are a former smoker, when did you quit?: 1989 'Breaking Loose' booklet given: 08/15/15 Review of Systems - Review of Systems Able to Perform ROS?: Yes Comments:: 10 point review of systems completed. All systems negative except as noted above. *Physical Exam - Physical Exam Vital signs and nursing notes reviewed. Constitutional- Nontoxic elderly adult male in no acute distress but obvious discomfort. Found supine on hospital stretcher. Answered all questions appropriately and completely. Head- Normocephalic. No obvious external signs of trauma. Eyes- Pupils 3mm and PERRL. Sclerae white. Conjunctiva moist and not injected. Ears- No discharge. Nose- No nasal discharge. Neck- Supple, trachea is midline. No c-spine tenderness. Able to laterally rotate neck >45 degrees to R and L. Cardiovascular / Chest- Regular rate. No anterior chest wall tenderness. Respiratory- Nasal cannula in place. Breathing unlabored. Speaking in multi-word responses without pausing. No respiratory distress. Gastrointestinal- abdomen is soft, non-tender, non-distended. No overlying skin lesions or obvious signs of trauma. Neuro- Alert and oriented x4. Moving all four extremities spontaneously. No facial asymmetry. No slurred speech. Skin / MSK- Diffuse tenderness overlying R anterior hip. No overlying skin breakdown or signs of trauma. Pelvis stable and nontender with lateral compression. Unable to flex or extend from the hip secondary to pain. Dorsiflexion and plantarflexion 5/5 bilaterally. Sensation intact bilaterally. Weak but symmetric DPL present. Skin- Warm and dry. Psych- Affect- appropriate. Mood- normal. Speech was non-labored, non- pressured. ED Treatment Course - LABORATORY CBC & Chemistry Diagram: 11/25/19 12:55 11/25/19 12:55 - RADIOLOGY Radiology Studies Ordered: Category Date Time Status CERVICAL SPINE CT W/O CONTR [CT] Stat CT Scan 11/25/19 12:[address] WITHOUT CONTRAST [CT] Stat CT Scan 11/25/19 12:27 Ordered CHEST - PA [RAD] Stat Radiology 11/25/19 12:27 Ordered HIP & PELVIS-RIGHT [RAD] Stat Radiology 11/25/19 12:26 Ordered Medical Decision Making - Medical Decision Making 74 y/o male with traumatic right IT compression fracture s/p suspected mechanical slip and fall. On DOAC. HCT and C-Spine CT unremarkable for acute injury. Given Fentanyl and Acetaminophen for pain relief. Pre-op labs ordered. Reviewed laboratory data. Noted anemia, which is consistent with documented baseline in [facility]. Noted mild hyperkalemia. No EKG changes noted. Consistent with pts h/o CKD and hyperkalemia. Discussed with Dr. Menezes of nephrology service at bedside. He is familiar with the pt. Will evaluate the pt. Telephone discussion with YANA Diaz of Dr. [facility]. Verbally appraised of the pts HPI, ED course, and current plan of management. Will evaluate the pt on admission. ED Attending discussed admission with Dr. Miller. Case discussed with ED Attending Dr. Devorah Gutierrez M.D., PGY2 Emergency Medicine Resident Discharge - Discharge Information Problems reviewed: Yes Clinical Impression/Diagnosis: Closed right hip fracture Qualifiers: Encounter type: initial encounter Qualified Code(s): S72.001A - Fracture of unspecified part of neck of right femur, initial encounter for closed fracture Condition: Stable - Admission Yes - Follow up/Referral - Patient Discharge Instructions - Post Discharge Activity
[2019-11-25] MEDS ORDERED: ACETAMINOPHEN INJECTION 100 ML IVPB ONE (12:39)
[2019-11-25 13:48] LABS: BASO % 0.8 % (0-2.0); EOS % 2.3 % (0-4.5); HEMATOCRIT 28.2 % (35.4-49); HEMOGLOBIN 9.2 GM/dL (11.7-16.9); LYMPH % 12.7 % (8-40); MCHC 32.7 g/dl (32.0-35.9); MEAN CELL VOLUME 97.8 fl (80-96); MONO % 5.4 % (3.8-10.2); NEUT % 78.8 % (42.8-82.8); PLATELET COUNT 123 K/MM3 (134-434); RBC 2.88 M/mm3 (4.00-5.60); WHITE BLOOD COUNT 5.8 K/mm3 (4.0-10.0)
[2019-11-25 13:57] LABS: INR 1.49 (0.83-1.09); PROTHROMBIN TIME (PATIENT) 17.6 SEC (9.7-13.0)
[2019-11-25 14:00] LABS: ACTIVATED PTT 37.5 SECONDS (25.2-36.5)
--- NOTE | 2019-11-25 14:06 | PDOC ---
Documentation entered by Amy Travis SCRIBE, acting as scribe for Zari Fairchild MD. Zari Fairchild MD: This documentation has been prepared by the meganibThaddeus winston Sydney, SCRIBE, under my direction and personally reviewed by me in its entirety. I confirm that the documentation accurately reflects all work, treatment, procedures, and medical decision making performed by me. Attending Attestation - Resident Resident Name: GutierrezMehran - ED Attending Attestation I have performed the following: I have examined & evaluated the patient, The case was reviewed & discussed with the resident, I agree w/resident's findings & plan, Exceptions are as noted - HPI HPI: 11/25/19 14:00 74 yo M p/w R hip pain s/p mechanical fall this morning. Patient states he was getting up from the toilet this morning, was wearing socks and slipped on the tile floor and hit his R hip. Denies head trauma or LOC. Is on a/c but doesn't remember which one. As per EMR, pt is on abixaban. Denies headache or changes in vision. Has not been able to ambulate since the incident. No other injuries or complaints. - Physicial Exam PE: 11/25/19 14:03 General: well appearing, NAD HEENT: NCAT Extremities: warm and well perfused, +ttp over R lateral hip, able to wiggle toes and dorsiflex/plantarflex but ROM limited at hip Neuro: awake, alert, responds to questions appropriately, speech fluent, face symmetric, unable to assess gait - Medical Decision Making 11/25/19 14:05 74 yo M with R hip pain s/p mechanical fall, concerning for R IT fx. Much lower suspicion for ICH as patient denies head trauma however given age and a/c use will get CT head. Plan: -labs -cxr -pelvis xray -CT head -CT c-spine -ortho consult -admit This clinical encounter is taking place during a federal and state health care emergency attributable to the novel [place] Virus pandemic. The [place] of the Department of Health and Human Services has declared, pursuant to the Public Health Service Act 319F-3 (42 U.S.C. 247d-6d), that a covered persons activities related to medical countermeasures against COVID-19 will be immune from liability under Federal and State law. Discharge - Discharge Information Problems reviewed: Yes Clinical Impression/Diagnosis: Closed right hip fracture Qualifiers: Encounter type: initial encounter Qualified Code(s): S72.001A - Fracture of unspecified part of neck of right femur, initial encounter for closed fracture Condition: Stable - Follow up/Referral - Patient Discharge Instructions - Post Discharge Activity
[2019-11-25 14:22] LABS: ALBUMIN 2.5 g/dl (3.4-5.0); BLOOD UREA NITROGEN 79.5 mg/dL (7-18); CALCIUM 8.6 mg/dL (8.5-10.1); CREATININE 2.5 mg/dL (0.55-1.3); MAGNESIUM 2.2 mg/dL (1.8-2.4); POTASSIUM 5.4 mmol/L (3.5-5.1); TOT PROT 6.9 g/dl (6.4-8.2)
[2019-11-25 14:23] LABS: BILIRUBIN,TOTAL 0.7 mg/dL (0.2-1)
--- NOTE | 2019-11-25 17:00 | PN ---
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 (short form) - Note 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: Ortho full consult to be dictated. Right it fx a/p OR for right IM gamma nail surgical clearance npo after midnight hold eliquis OR tomorrow if cleared
--- NOTE | 2019-11-25 17:35 | EKG ---
Test Reason : Blood Pressure : / mmHG Vent. Rate : 066 BPM Atrial Rate : 066 BPM P-R Int : 188 ms QRS Dur : 134 ms QT Int : 454 ms P-R-T Axes : 041 -48 097 degrees QTc Int : 475 ms NORMAL SINUS RHYTHM LEFT AXIS DEVIATION NON-SPECIFIC INTRA-VENTRICULAR CONDUCTION BLOCK CANNOT RULE OUT ANTERIOR INFARCT (CITED ON OR BEFORE 29-OCT-2019) ABNORMAL ECG WHEN COMPARED WITH ECG OF 29-OCT-2019 09:39, QUESTIONABLE CHANGE IN INITIAL FORCES OF ANTEROSEPTAL LEADS Confirmed by ROSEMARY BILLINGSLEY MD ([id number]) on 11/25/2019 5:35:21 PM Referred By: Confirmed By:ROSEMARY BILLINGSLEY MD
--- NOTE | 2019-11-25 18:35 | CONSULT ---
Consult Consult Specialty:: Nephrology Reason for Consultation:: CKD and hyperkalemia - History of Present Illness Chief Complaint: s/p fall History of Present Illness: Pt us a 74 year old male with pmhx of htn, dm, hld, anxiety, depression, cad, chf, ckd, a-fib who presents to the ER after a fall. He complains of right thigh pain. He was found to have a fracture. I was called to evaluate him for worsening renal failure and hyperkalemia. He denies shortness of breath, chest pain or palpitations. He denies dysuria or hematuria. He is awake and alert. 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 Cardio/Vascular: Yes: AFIB, CAD (prior anterolateral GA 03/1995 w/ PCI of LAD & ramus, PCI of LAD 05/1996 (with 100% occluded ramus and patent RCA), rotoblator & PCI w/ Xience stent prox LAD & prox/mid Cfx 07/30/16), CHF, Hyperlipdemia, GA (anterolateral GA 1994), Other (CHF) Pulmonary: Yes: O2 Dependent, Pneumonia (03/2016), Other (Chronic right pleural effusion S/p VATS procedure) Gastrointestinal: Yes: GERD Renal/: Yes: Renal Inusuff, BPH, Renal Calculi Psych: Yes: Anxiety, Depression Musculoskeletal: Yes: Osteoarthritis Rheumatology: Yes: Gout Endocrine: Yes: Diabetes Mellitus (with peripheral neuropathy), Other (Hypogonadism, nodular goiter) - Past Surgical History Past Surgical History: Yes: Cataract Removal (bilateral), Hernia Repair (umbillical) - Alcohol/Substance Use Hx Alcohol Use: No History of Substance Use: reports: None - Smoking History Smoking history: Former smoker Have you smoked in the past 12 months: No Aproximately how many cigarettes per day: 0 If you are a former smoker, when did you quit?: 1989 - Social History ADL: Independent History of Recent Travel: No Home Medications - Allergies Allergies/Adverse Reactions: Allergies Allergy/AdvReac Type Severity Reaction Status Date / Time pioglitazone HCl [From Actos] Allergy Severe CHF Verified 11/25/19 13:46 - Home Medications Home Medications: Ambulatory Orders Cholecalciferol (Vitamin D3) [Vitamin D3 -] 1,000 unit PO DAILY 07/27/19 Ferrous Sulfate [Iron] 325 mg PO DAILY 07/27/19 Folic Acid 1 mg PO DAILY 07/27/19 Furosemide 40 mg PO DAILY 07/27/19 Isosorbide Mononitrate [Isosorbide Mononitrate ER] 30 mg PO BID 07/27/19 Allopurinol [Zyloprim -] 100 mg PO DAILY tablet 07/30/19 Carvedilol [Coreg -] 25 mg PO BID tablet 07/30/19 Glipizide [Glucotrol -] 5 mg PO BID@0700,1630 tablet 07/30/19 Alprazolam [Xanax] 0.25 mg PO DAILY PRN 7 Days #60 tablet MDD 2 08/15/19 Apixaban [Eliquis -] 2.5 mg PO BID 90 Days #180 tablet 08/15/19 Atorvastatin Ca [Lipitor] 80 mg PO HS tablet 08/15/19 Docusate Sodium [Colace -] 300 mg PO HS capsule 08/15/19 Pantoprazole Sodium [Protonix -] 20 mg PO DAILY tablet.ec 08/15/19 hydrALAZINE HCL [Apresoline -] 25 mg PO TID #0 tablet 08/15/19 Cyproheptadine [Periactin -] 4 mg PO HS 10/28/19 Escitalopram Oxalate [Lexapro -] 10 mg PO DAILY 10/28/19 Nitroglycerin Sublingual [Nitrostat -] 0.4 mg SL PRN PRN 10/28/19 Allopurinol [Zyloprim -] 100 mg PO DAILY tablet 10/30/19 Alprazolam [Xanax] 0.25 mg PO Q12H PRN tablet 10/30/19 Apixaban [Eliquis -] 2.5 mg PO BID tablet 10/30/19 Atorvastatin Ca [Lipitor] 80 mg PO HS tablet 10/30/19 Carvedilol [Coreg -] 25 mg PO BID tablet 10/30/19 Escitalopram Oxalate [Lexapro -] 20 mg PO DAILY tablet 10/30/19 Family Medical History Family History: Denies Review of Systems - Review of Systems Constitutional: reports: No Symptoms Eyes: reports: No Symptoms HENT: reports: No Symptoms Neck: reports: No Symptoms Cardiovascular: reports: No Symptoms Respiratory: reports: No Symptoms Gastrointestinal: reports: No Symptoms Genitourinary: reports: No Symptoms Musculoskeletal: reports: Other (right thigh pain) Neurological: reports: No Symptoms Endocrine: reports: No Symptoms Hematology/Lymphatic: reports: No Symptoms Psychiatric: reports: No Symptoms Physical Exam Vital Signs: Vital Signs Temperature 97.5 F L 11/25/19 16:17 Pulse Rate 73 11/25/19 16:17 Respiratory Rate 20 11/25/19 16:17 Blood Pressure 147/73 11/25/19 16:17 O2 Sat by Pulse Oximetry (%) 96 11/25/19 16:36 Constitutional: Yes: Calm Eyes: Yes: Conjunctiva Clear HENT: Yes: Atraumatic Cardiovascular: Yes: S1, S2 Respiratory: Yes: CTA Bilaterally Gastrointestinal: Yes: Soft Renal/: Yes: WNL Musculoskeletal: Yes: Other (right thigh pain) Extremities: Yes: WNL Edema: No Neurological: Yes: Oriented Psychiatric: Yes: Oriented Labs: CBC, BMP 11/25/19 12:55 11/25/19 12:55 Laboratory Tests 11/25/19 11/25/19 12:55 13:50 Sodium 145 Potassium 5.4 H BUN 79.5 H Creatinine 2.5 H COVID-19 (YUAN) Pending Imaging - Results Chest X-ray: Report Reviewed X-ray: Report Reviewed Cat Scan: Report Reviewed Problem List - Problems (1) CKD (chronic kidney disease) Code(s): N18.9 - CHRONIC KIDNEY DISEASE, UNSPECIFIED (2) Hyperkalemia Code(s): E87.5 - HYPERKALEMIA (3) Acute kidney failure Code(s): N17.9 - ACUTE KIDNEY FAILURE, UNSPECIFIED Qualifiers: Acute renal failure type: with other specified pathological lesion Q ualified Code(s): N17.8 - Other acute kidney failure (4) CHF (congestive heart failure) Code(s): I50.9 - HEART FAILURE, UNSPECIFIED Qualifiers: Heart failure type: combined systolic and diastolic Heart failure chronicity: chronic Qualified Code(s): I50.42 - Chronic combined systolic (congestive) and diastolic (congestive) heart failure (5) HTN (hypertension) Code(s): I10 - ESSENTIAL (PRIMARY) HYPERTENSION Qualifiers: Hypertension type: essential hypertension Qualified Code(s): I10 - Essential (primary) hypertension Assessment/Plan Impression 1. CKD with acute component 2. hx CHF 3. CAD 4. DM 5. HTN 6. hyperlipidemia 7. BPH 8. pleural effusions 9. SPIKE 10. hyperkalemia 11. 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
[2019-11-25] MEDS ORDERED: SODIUM ZIRCONIUM CYCLOSILICATE (LOKELMA) 5 GM PACKET PO SCH (18:45)
[2019-11-25] MEDS ORDERED: SODIUM CHLORIDE 0.45% 1,000 ML IV SCH (18:45)
[2019-11-25] MEDS ORDERED: oxyCODONE HCL 5 MG TABLET PO ONE (22:29)
[2019-11-25] MEDS ORDERED: ACETAMINOPHEN 325 MG TABLET (FP) PO ONE (22:30)
--- NOTE | 2019-11-25 22:50 | HP ---
Admitting History and Physical - Admission Chief Complaint: pain in the right hip History of Present Illness: 74 yo male with pmh of CAD, Chronic Atrial Fibrillation, CRF, CHF, chronic right pleural effusion fell when trying to move his walker. He did not hit his head but he was unable to get up from the floor. SInce the fall the patient is complaining of right upper femur pain and inability to walk. ER Xray showed right intertrochanteric fractire. The patient has aterosclerotic heart disease. In he had anterior wall DC with LAD ramus lesion treated with PCTA/WYATT. In he had PCTA/WYATT of the left circumflex. in 06/18 he had restenosis of the proximal LAD. ECHO in November showed 46 % EF. 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 Cardiovascular: Yes: AFIB, CAD (prior anterolateral DC 03/1995 w/ PCI of LAD & ramus, PCI of LAD 05/1996 (with 100% occluded ramus and patent RCA), rotoblator & PCI w/ Xience stent prox LAD & prox/mid Cfx 07/30/16), CHF, Hyperlipdemia, [place] (anterolateral DC 1994), Other (CHF) Pulmonary: Yes: O2 Dependent, Pneumonia (03/2016), Other (Chronic right pleural effusion S/p VATS procedure) Gastrointestinal: Yes: GERD Renal/: Yes: Renal Inusuff, BPH, Renal Calculi Heme/Onc: Yes: Anemia Psych: Yes: Anxiety, Depression Musculoskeletal: Yes: Osteoarthritis Rheumatology: Yes: Gout Endocrine: Yes: Diabetes Mellitus (with peripheral neuropathy), Other (Hypogonadism, nodular goiter) - Past Surgical History Past Surgical History: Yes: Cataract Removal (bilateral), Hernia Repair (umbillical) - Advance Directives Advance Directives: Yes: Health Care Proxy - Smoking History Smoking history: Former smoker Have you smoked in the past 12 months: No Aproximately how many cigarettes per day: 0 If you are a former smoker, when did you quit?: 1989 - Alcohol/Substance Use Hx Alcohol Use: No History of Substance Use: reports: None - Social History ADL: Independent History of Recent Travel: No Home Medications - Allergies Allergies/Adverse Reactions: Allergies Allergy/AdvReac Type Severity Reaction Status Date / Time pioglitazone HCl [From Actos] Allergy Severe CHF Verified 11/25/19 13:46 - Home Medications Home Medications: Ambulatory Orders Cholecalciferol (Vitamin D3) [Vitamin D3 -] 1,000 unit PO DAILY 07/27/19 Ferrous Sulfate [Iron] 325 mg PO DAILY 07/27/19 Folic Acid 1 mg PO DAILY 07/27/19 Furosemide 40 mg PO DAILY 07/27/19 Isosorbide Mononitrate [Isosorbide Mononitrate ER] 30 mg PO BID 07/27/19 Allopurinol [Zyloprim -] 100 mg PO DAILY tablet 07/30/19 Carvedilol [Coreg -] 25 mg PO BID tablet 07/30/19 Glipizide [Glucotrol -] 5 mg PO BID@0700,1630 tablet 07/30/19 Alprazolam [Xanax] 0.25 mg PO DAILY PRN 7 Days #60 tablet MDD 2 08/15/19 Apixaban [Eliquis -] 2.5 mg PO BID 90 Days #180 tablet 08/15/19 Atorvastatin Ca [Lipitor] 80 mg PO HS tablet 08/15/19 Docusate Sodium [Colace -] 300 mg PO HS capsule 08/15/19 Pantoprazole Sodium [Protonix -] 20 mg PO DAILY tablet.ec 08/15/19 hydrALAZINE HCL [Apresoline -] 25 mg PO TID #0 tablet 08/15/19 Cyproheptadine [Periactin -] 4 mg PO HS 10/28/19 Escitalopram Oxalate [Lexapro -] 10 mg PO DAILY 10/28/19 Nitroglycerin Sublingual [Nitrostat -] 0.4 mg SL PRN PRN 10/28/19 Allopurinol [Zyloprim -] 100 mg PO DAILY tablet 10/30/19 Alprazolam [Xanax] 0.25 mg PO Q12H PRN tablet 10/30/19 Apixaban [Eliquis -] 2.5 mg PO BID tablet 10/30/19 Atorvastatin Ca [Lipitor] 80 mg PO HS tablet 10/30/19 Carvedilol [Coreg -] 25 mg PO BID tablet 10/30/19 Escitalopram Oxalate [Lexapro -] 20 mg PO DAILY tablet 10/30/19 Review of Systems - Review of Systems Constitutional: reports: Weakness Eyes: reports: No Symptoms HENT: reports: Hearing Loss Cardiovascular: reports: Shortness of Breath (with ambulation). denies: Chest Pain, Edema, Palpitations Physical Examination Vital Signs: Vital Signs Temperature 97.5 F L 11/25/19 16:17 Pulse Rate 73 11/25/19 16:17 Respiratory Rate 20 11/25/19 21:00 Blood Pressure 147/73 11/25/19 16:17 O2 Sat by Pulse Oximetry (%) 96 11/25/19 21:00 Labs: CBC, BMP 11/25/19 12:55 11/25/19 12:55 Imaging - Results Chest X-ray: Other (cardiomegaly, right pleural effusion) X-ray: Other (right femur intertrochanteric fracture) Problem List - Problems (1) CKD (chronic kidney disease) Assessment/Plan: stable, Problems reviewed: Yes Code(s): N18.9 - CHRONIC KIDNEY DISEASE, UNSPECIFIED (2) Diabetes 1.5, managed as type 2 Assessment/Plan: regular insulin coverage start IV D5 1/2 NS at 75 cc if surgery tomorrow Code(s): E10.9 - TYPE 1 DIABETES MELLITUS WITHOUT COMPLICATIONS (3) Closed right hip fracture Assessment/Plan: for Gamma nail tomorrow Cardiac clearance in am Code(s): S72.001A - FRACTURE OF UNSP PART OF NECK OF RIGHT FEMUR, INIT Qualifiers: Encounter type: initial encounter Qualified Code(s): S72.001A - Fracture of unspecified part of neck of right femur, initial encounter for closed fracture (4) Anemia in chronic kidney disease Assessment/Plan: received transfusions in the past Code(s): N18.9 - CHRONIC KIDNEY DISEASE, UNSPECIFIED; D63.1 - ANEMIA IN CHRONIC KIDNEY DISEASE Qualifiers: Chronic kidney disease stage: stage 2 (mild) Qualified Code(s): N18.2 - Chronic kidney disease, stage 2 (mild); D63.1 - Anemia in chronic kidney disease (5) Atrial fibrillation Assessment/Plan: chronic Eliquis is on hold in view of surgery Code(s): I48.91 - UNSPECIFIED ATRIAL FIBRILLATION Qualifiers: Atrial fibrillation type: paroxysmal Qualified Code(s): I48.0 - Paroxysmal atrial fibrillation (6) CHF (congestive heart failure) Assessment/Plan: gentle hydration Code(s): I50.9 - HEART FAILURE, UNSPECIFIED Qualifiers: Heart failure type: combined systolic and diastolic Heart failure chronicity: chronic Qualified Code(s): I50.42 - Chronic combined systolic (congestive) and diastolic (congestive) heart failure (7) Coronary artery disease Assessment/Plan: patient will require Cardiac clearance Code(s): I25.10 - ATHSCL HEART DISEASE OF [place] CORONARY ARTERY W/O ANG PCTRS Qualifiers: Coronary Disease-Associated Artery/Lesion type: [place] artery [place] vs. transplanted heart: [place] heart Associated angina: without angina Qualified Code(s): I25.10 - Atherosclerotic heart disease of [place] coronary artery without angina pectoris Assessment/Plan PAtient is class III clear for gamma nail implant pending CArdiology clearance
[2019-11-25] MEDS: CARVEDILOL 25 MG TABLET (FP) PO SCH (23:30)
[2019-11-25] MEDS: hydrALAZINE HCL 25 MG TABLET (FP) PO SCH (23:30)
[2019-11-26] MEDS: oxyCODONE HCL 5 MG TABLET PO PRN ×2 (05:43→17:01)
[2019-11-26] MEDS: INSULIN SLIDING SCALE (NOVOLOG) 1 VIAL SQ SCH ×4 (06:21→21:45)
[2019-11-26] MEDS ORDERED: DEXTROSE 5%-0.45% SALINE 1,000 ML IV SCH (09:00)
--- NOTE | 2019-11-26 09:43 | PN ---
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 (short form) - Note 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: 74 yo male with pmh of CAD, Chronic Atrial Fibrillation, CRF, CHF, chronic right pleural effusion fell when trying to move his walker. He did not hit his head but he was unable to get up from the floor. SInce the fall the patient is complaining of right upper femur pain and inability to walk. ER Xray showed right intertrochanteric fracture for preop evaluation. The patient has aterosclerotic heart disease. In he had anterior wall FL with LAD ramus lesion treated with PCTA/WYATT. In he had PCTA/WYATT of the left circumflex. in 06/18 he had restenosis of the proximal LAD, LCX both stented, lakhwinder followed by cardio (most recently few weeks ago), been doing rehab as well: no CP, been stable cardiacwise, apparently has had stress test as well. ECHO in November 2018 showed 46 % EF. 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 Cardiovascular: Yes: AFIB, CAD (prior anterolateral FL 03/1995 w/ PCI of LAD & ramus, PCI of LAD 05/1996 (with 100% occluded ramus and patent RCA), rotoblator & PCI w/ Xience stent prox LAD & prox/mid Cfx 07/30/16), CHF, Hyperlipdemia, FL (anterolateral FL 1994), Other (CHF) Pulmonary: Yes: O2 Dependent, Pneumonia (03/2016), Other (Chronic right pleural effusion S/p VATS procedure) Gastrointestinal: Yes: GERD Renal/: Yes: Renal Inusuff, BPH, Renal Calculi Heme/Onc: Yes: Anemia Psych: Yes: Anxiety, Depression Musculoskeletal: Yes: Osteoarthritis Rheumatology: Yes: Gout Endocrine: Yes: Diabetes Mellitus (with peripheral neuropathy), Other (Hypogonadism, nodular goiter) - Past Surgical History Past Surgical History: Yes: Cataract Removal (bilateral), Hernia Repair (umbillical) - Advance Directives Advance Directives: Yes: Health Care Proxy - Smoking History Smoking history: Former smoker Have you smoked in the past 12 months: No Aproximately how many cigarettes per day: 0 If you are a former smoker, when did you quit?: 1989 - Alcohol/Substance Use Hx Alcohol Use: No History of Substance Use: reports: None - Social History ADL: Independent History of Recent Travel: No Home Medications - Allergies Allergies/Adverse Reactions: Allergies Allergy/AdvReac Type Severity Reaction Status Date / Time pioglitazone HCl [From Actos] Allergy Severe CHF Verified 11/25/19 13:46 - Home Medications Home Medications: Ambulatory Orders Cholecalciferol (Vitamin D3) [Vitamin D3 -] 1,000 unit PO DAILY 07/27/19 Ferrous Sulfate [Iron] 325 mg PO DAILY 07/27/19 Folic Acid 1 mg PO DAILY 07/27/19 Furosemide 40 mg PO DAILY 07/27/19 Isosorbide Mononitrate [Isosorbide Mononitrate ER] 30 mg PO BID 07/27/19 Allopurinol [Zyloprim -] 100 mg PO DAILY tablet 07/30/19 Carvedilol [Coreg -] 25 mg PO BID tablet 07/30/19 Glipizide [Glucotrol -] 5 mg PO BID@0700,1630 tablet 07/30/19 Alprazolam [Xanax] 0.25 mg PO DAILY PRN 7 Days #60 tablet MDD 2 08/15/19 Apixaban [Eliquis -] 2.5 mg PO BID 90 Days #180 tablet 08/15/19 Atorvastatin Ca [Lipitor] 80 mg PO HS tablet 08/15/19 Docusate Sodium [Colace -] 300 mg PO HS capsule 08/15/19 Pantoprazole Sodium [Protonix -] 20 mg PO DAILY tablet.ec 08/15/19 hydrALAZINE HCL [Apresoline -] 25 mg PO TID #0 tablet 08/15/19 Cyproheptadine [Periactin -] 4 mg PO HS 10/28/19 Escitalopram Oxalate [Lexapro -] 10 mg PO DAILY 10/28/19 Nitroglycerin Sublingual [Nitrostat -] 0.4 mg SL PRN PRN 10/28/19 Allopurinol [Zyloprim -] 100 mg PO DAILY tablet 10/30/19 Alprazolam [Xanax] 0.25 mg PO Q12H PRN tablet 10/30/19 Apixaban [Eliquis -] 2.5 mg PO BID tablet 05/30/20 Atorvastatin Ca [Lipitor] 80 mg PO HS tablet 10/30/19 Carvedilol [Coreg -] 25 mg PO BID tablet 10/30/19 Escitalopram Oxalate [Lexapro -] 20 mg PO DAILY tablet 10/30/19 Review of Systems Negative except in HPI Physical Examination Vital Signs: Vital Signs Temperature 97.8 F 11/26/19 05:47 Pulse Rate 82 11/26/19 05:47 Respiratory Rate 20 11/25/19 23:34 Blood Pressure 119/62 11/26/19 05:47 O2 Sat by Pulse Oximetry (%) 96 11/25/19 21:00 A&Ox3 NAD Anicteric sclerae No JVP L: no rales/wheezing H:RRR,S1S2, 1/6 Sm base Abd: soft Ext: RLE rotated CBC,CMP WBC 5.8 K/mm3 (4.0-10.0) 11/25/19 12:55 RBC 2.88 M/mm3 (4.00-5.60) L 11/25/19 12:55 Hgb 9.2 GM/dL (11.7-16.9) L 11/25/19 12:55 Hct 28.2 % (35.4-49) L 11/25/19 12:55 MCV 97.8 fl (80-96) H 11/25/19 12:55 MCH 32.0 pg (25.7-33.7) 11/25/19 12:55 MCHC 32.7 g/dl (32.0-35.9) 11/25/19 12:55 RDW 18.0 % (11.9-15.9) H 11/25/19 12:55 Plt Count 123 K/MM3 (134-434) L 11/25/19 12:55 MPV 9.0 fl (7.5-11.1) 11/25/19 12:55 Absolute Neuts (auto) 4.5 K/mm3 (1.5-8.0) 11/25/19 12:55 Neutrophils % 78.8 % (42.8-82.8) 11/25/19 12:55 Lymphocytes % 12.7 % (8-40) D 11/25/19 12:55 Monocytes % 5.4 % (3.8-10.2) 11/25/19 12:55 Eosinophils % 2.3 % (0-4.5) 11/25/19 12:55 Basophils % 0.8 % (0-2.0) 11/25/19 12:55 Nucleated RBC % 0 % (0-0) 11/25/19 12:55 Sodium 145 mmol/L (136-145) 11/25/19 12:55 Potassium 5.4 mmol/L (3.5-5.1) H 11/25/19 12:55 Chloride 114 mmol/L (98-107) H 11/25/19 12:55 Carbon Dioxide 26 mmol/L (21-32) 11/25/19 12:55 Anion Gap 5 MMOL/L (8-16) L 11/25/19 12:55 BUN 79.5 mg/dL (7-18) H 11/25/19 12:55 Creatinine 2.5 mg/dL (0.55-1.3) H 11/25/19 12:55 Est GFR (CKD-EPI)AfAm 27.86 11/25/19 12:55 Est GFR (CKD-EPI)NonAf 24.04 11/25/19 12:55 POC Glucometer 177 UNITS (80-120) 11/26/19 05:42 Random Glucose 191 mg/dL (74-106) H 11/25/19 12:55 Calcium 8.6 mg/dL (8.5-10.1) 11/25/19 12:55 Magnesium 2.2 mg/dL (1.8-2.4) 11/25/19 12:55 Total Bilirubin 0.7 mg/dL (0.2-1) 11/25/19 12:55 AST 10 U/L (15-37) L 11/25/19 12:55 ALT 18 U/L (13-61) 11/25/19 12:55 Alkaline Phosphatase 91 U/L (45-117) 11/25/19 12:55 Total Protein 6.9 g/dl (6.4-8.2) 11/25/19 12:55 Albumin 2.5 g/dl (3.4-5.0) L 11/25/19 12:55 CBC, BMP 11/25/19 12:55 11/26/19 08:50 Active Medications Acetaminophen (Tylenol -) 325 mg PO Q4H PRN PRN Reason: PAIN LEVEL 6-10 Allopurinol (Zyloprim -) 100 mg PO DAILY [facility] Last Admin: 11/26/19 09:49 Dose: 100 mg Documented by: Atorvastatin Calcium (Lipitor -) 80 mg PO [facility] Carvedilol (Coreg -) 25 mg PO BID [facility] Last Admin: 11/26/19 09:49 Dose: 25 mg Documented by: Escitalopram Oxalate (Lexapro -) 10 mg PO DAILY [facility] Last Admin: 11/26/19 09:49 Dose: 10 mg Documented by: Furosemide (Lasix -) 20 mg PO DAILY [facility] Last Admin: 11/26/19 09:50 Dose: 20 mg Documented by: Hydralazine HCl (Apresoline -) 25 mg PO BID [facility] Last Admin: 11/26/19 09:50 Dose: 25 mg Documented by: Dextrose/Sodium Chloride (D5-1/2ns -) 1,000 mls @ 42 mls/hr IV ASDIR [facility] Last Admin: 11/26/19 09:50 Dose: 42 mls/hr Documented by: Insulin Aspart (Novolog Vial Sliding Scale -) 1 vial SQ ACHS [facility]; Protocol Last Admin: 11/26/19 11:11 Dose: Not Given Documented by: Oxycodone HCl (Roxicodone -) 10 mg PO Q4H PRN PRN Reason: PAIN LEVEL 4 - 6 Last Admin: 11/26/19 05:43 Dose: 10 mg Documented by: Imaging - Results Chest X-ray: Other (cardiomegaly, , volume loss RLL) X-ray: Other (right femur intertrochanteric fracture) Problem List - Problems (1) CKD (chronic kidney disease) Assessment/Plan: stable, Problems reviewed: Yes Code(s): N18.9 - CHRONIC KIDNEY DISEASE, UNSPECIFIED (2) Diabetes 1.5, managed as type 2 Assessment/Plan: regular insulin coverage start IV D5 1/2 NS at 75 cc if surgery tomorrow Code(s): E10.9 - TYPE 1 DIABETES MELLITUS WITHOUT COMPLICATIONS (3) Closed right hip fracture Assessment/Plan: for Gamma nail tomorrow Cardiac clearance in am Code(s): S72.001A - FRACTURE OF UNSP PART OF NECK OF RIGHT FEMUR, INIT Qualifiers: Encounter type: initial encounter Qualified Code(s): S72.001A - Fracture of unspecified part of neck of right femur, initial encounter for closed fracture (4) Anemia in chronic kidney disease Assessment/Plan: received transfusions in the past Code(s): N18.9 - CHRONIC KIDNEY DISEASE, UNSPECIFIED; D63.1 - ANEMIA IN CHRONIC KIDNEY DISEASE Qualifiers: Chronic kidney disease stage: stage 2 (mild) Qualified Code(s): N18.2 - Chronic kidney disease, stage 2 (mild); D63.1 - Anemia in chronic kidney disease (5) Atrial fibrillation Assessment/Plan: chronic Eliquis is on hold in view of surgery Code(s): I48.91 - UNSPECIFIED ATRIAL FIBRILLATION Qualifiers: Atrial fibrillation type: paroxysmal Qualified Code(s): I48.0 - Paroxysmal atrial fibrillation (6) CHF (congestive heart failure) Assessment/Plan: gentle hydration Code(s): I50.9 - HEART FAILURE, UNSPECIFIED Qualifiers: Heart failure type: combined systolic and diastolic Heart failure chronicity: chronic Qualified Code(s): I50.42 - Chronic combined systolic (congestive) and diastolic (congestive) heart failure (7) Coronary artery disease Assessment/Plan: patient will require Cardiac clearance Code(s): I25.10 - ATHSCL HEART DISEASE OF [place] CORONARY ARTERY W/O ANG PCTRS Qualifiers: Coronary Disease-Associated Artery/Lesion type: [place] artery [place] vs. transplanted heart: [place] heart Associated angina: without angina Qualified Code(s): I25.10 - Atherosclerotic heart disease of [place] coronary artery without angina pectoris Assessment/Plan -Preop Evaluation: Rt Hip -CAD, s/p PCIs: last 2016 :LAD,LCX -PAFb -CKD -HTN -DM Plan: -Pt with no active cardiac sx, active prior to event, cardiacwise been stable as outpatient -No contraindication for surgery from cardiac standpoint -Cont Coreg, statin into day of surgery -Resume AC when feasible
[2019-11-26] MEDS: ESCITALOPRAM OXALATE 10 MG TABLET PO SCH (09:49)
[2019-11-26] MEDS: CARVEDILOL 25 MG TABLET (FP) PO SCH ×2 (09:49→21:44)
[2019-11-26] MEDS: ALLOPURINOL 100 MG TABLET (FP) PO SCH (09:49)
[2019-11-26] MEDS: FUROSEMIDE 20 MG TABLET (FP) PO SCH (09:50)
[2019-11-26] MEDS: hydrALAZINE HCL 25 MG TABLET (FP) PO SCH ×2 (09:50→21:45)
[2019-11-26 09:53] LABS: ALBUMIN 2.3 g/dl (3.4-5.0); BILIRUBIN,TOTAL 0.6 mg/dL (0.2-1); CALCIUM 8.3 mg/dL (8.5-10.1); CREATININE 2.5 mg/dL (0.55-1.3); POTASSIUM 5.1 mmol/L (3.5-5.1); TOT PROT 6.2 g/dl (6.4-8.2)
[2019-11-26] MEDS ORDERED: SODIUM ZIRCONIUM CYCLOSILICATE (LOKELMA) 10 GM PACKET PO SCH (10:00)
--- NOTE | 2019-11-26 12:56 | PN ---
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, Physician History of Present Illness: Pt seen and examined at bedside. He is awake and alert. He denies shortness of breath. - Current Medication List Current Medications: Active Medications Acetaminophen (Tylenol -) 325 mg PO Q4H PRN PRN Reason: PAIN LEVEL 6-10 Allopurinol (Zyloprim -) 100 mg PO DAILY [facility] Last Admin: 11/26/19 09:49 Dose: 100 mg Documented by: Atorvastatin Calcium (Lipitor -) 80 mg PO [facility] Carvedilol (Coreg -) 25 mg PO BID [facility] Last Admin: 11/26/19 09:49 Dose: 25 mg Documented by: Escitalopram Oxalate (Lexapro -) 10 mg PO DAILY [facility] Last Admin: 11/26/19 09:49 Dose: 10 mg Documented by: Furosemide (Lasix -) 20 mg PO DAILY [facility] Last Admin: 11/26/19 09:50 Dose: 20 mg Documented by: Hydralazine HCl (Apresoline -) 25 mg PO BID [facility] Last Admin: 11/26/19 09:50 Dose: 25 mg Documented by: Dextrose/Sodium Chloride (D5-1/2ns -) 1,000 mls @ 42 mls/hr IV ASDIR [facility] Last Admin: 11/26/19 09:50 Dose: 42 mls/hr Documented by: Insulin Aspart (Novolog Vial Sliding Scale -) [address] [facility]; Protocol Last Admin: 11/26/19 11:11 Dose: Not Given Documented by: Oxycodone HCl (Roxicodone -) 10 mg PO Q4H PRN PRN Reason: PAIN LEVEL 4 - 6 Last Admin: 11/26/19 05:43 Dose: 10 mg Documented by: - Objective Vital Signs: Vital Signs Temperature 98.2 F 11/26/19 09:00 Pulse Rate 75 11/26/19 09:00 Respiratory Rate 20 11/26/19 09:00 Blood Pressure 146/72 11/26/19 09:00 O2 Sat by Pulse Oximetry (%) 96 11/26/19 09:00 Constitutional: Yes: Calm Eyes: Yes: Conjunctiva Clear HENT: Yes: Atraumatic Neck: Yes: Supple Cardiovascular: Yes: S1, S2 Respiratory: Yes: CTA Bilaterally Gastrointestinal: Yes: Soft Genitourinary: Yes: WNL Musculoskeletal: Yes: WNL Edema: No Neurological: Yes: Oriented Psychiatric: Yes: Oriented Labs: CBC, BMP 11/25/19 12:55 11/26/19 08:50 INR, PTT INR 1.49 (0.83-1.09) H 11/25/19 12:55 Problem List - Problems (1) CKD (chronic kidney disease) Code(s): N18.9 - CHRONIC KIDNEY DISEASE, UNSPECIFIED (2) Hyperkalemia Code(s): E87.5 - HYPERKALEMIA (3) Acute kidney failure Code(s): N17.9 - ACUTE KIDNEY FAILURE, UNSPECIFIED Qualifiers: Acute renal failure type: with other specified pathological lesion Qualified Code(s): N17.8 - Other acute kidney failure (4) CHF (congestive heart failure) Code(s): I50.9 - HEART FAILURE, UNSPECIFIED Qualifiers: Heart failure type: combined systolic and diastolic Heart failure chronicit y: chronic Qualified Code(s): I50.42 - Chronic combined systolic (congestive) and diastolic (congestive) heart failure (5) HTN (hypertension) Code(s): I10 - ESSENTIAL (PRIMARY) HYPERTENSION Qualifiers: Hypertension type: essential hypertension Qualified Code(s): I10 - Essential (primary) hypertension Assessment/Plan Current Medications Generic Name Dose Route Start Last Admin Trade Name Freq PRN Reason Stop Dose Admin Acetaminophen 325 mg 11/25/19 22:28 Tylenol - PO Q4H PRN PAIN LEVEL 6-10 Allopurinol 100 mg 11/26/19 10:00 11/26/19 09:49 Zyloprim - PO 100 mg DAILY MARY Administration Atorvastatin Calcium 80 mg 11/26/19 22:00 Lipitor - PO HS MARY Carvedilol 25 mg 11/25/19 22:45 11/26/19 09:49 Coreg - PO 25 mg BID MARY Administration Escitalopram Oxalate 10 mg 11/26/19 10:00 11/26/19 09:49 Lexapro - PO 10 mg DAILY MARY Administration Furosemide 20 mg 11/26/19 10:00 11/26/19 09:50 Lasix - PO 20 mg DAILY MARY Administration Hydralazine HCl 25 mg 11/25/19 22:45 11/26/19 09:50 Apresoline - PO 25 mg BID MARY Administration Dextrose/Sodium Chloride 1,000 mls @ 42 mls/hr 11/26/19 09:00 11/26/19 09:50 D5-1/2ns - IV 42 mls/hr ASDIR MARY Administration Insulin Aspart 1 vial 11/26/19 07:00 11/26/19 11:11 Novolog Vial Sliding Scale - SQ Not Given ACHS MARY Protocol Oxycodone HCl 10 mg 11/25/19 22:27 11/26/19 05:43 Roxicodone - PO 10 mg Q4H PRN Administration PAIN LEVEL 4 - 6 Impression 1. CKD with acute component 2. hx CHF 3. CAD 4. DM 5. HTN 6. hyperlipidemia 7. BPH 8. pleural effusions 9. SPIKE 10. hyperkalemia 11. right femur fracture Plan - potassium improved - renal function close to baseline - avoid intra-op hypotension - avoid nsaids - repeat labs in am - will follow Dr Menezes
--- NOTE | 2019-11-26 14:17 | PN ---
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 (short form) - Note 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: Pt seen and examined. 74 yo M s/p fall with c/o pain right hip. Last took Eliquis yesterday. Anesthesia recommended a 3 day delay in surgery for purposes of anticoagulation and minimizing risks and complications. PE RLE is mildly shortened and externally rotated RLE NVI + pain with motion and tenderness right hip and upper thigh Xrays Show an acute, minimally displaced right femur intertrochanteric fracture. Imp R hip IT fx Rec Needs surgery Need clearance from medicine, cardiology, and anesthesiology At the moment the surgery has been put on the schedule for Friday 11am NPO after midnight tonight Hold blood thinners SCDs to B/L LE Bedrest
[2019-11-26] MEDS: ACETAMINOPHEN 325 MG TABLET (FP) PO PRN (17:01)
--- NOTE | 2019-11-26 17:03 | PN ---
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, Physician Chief Complaint: patient complaining of pain, surgery was rescheduled for 11/29/19 History of Present Illness: 74 yo male who was admitted for right intertrochanteric fracture was recscheduled for 2019/ HE is complaining of pain in [place] right thigh, deneis chest pain, palpittaions or shortness of breath. - Current Medication List Current Medications: Active Medications Acetaminophen (Tylenol -) 325 mg PO Q4H PRN PRN Reason: PAIN LEVEL 6-10 Allopurinol (Zyloprim -) 100 mg PO DAILY [facility] Last Admin: 11/26/19 09:49 Dose: 100 mg Documented by: Atorvastatin Calcium (Lipitor -) 80 mg PO HS [facility] Carvedilol (Coreg -) 25 mg PO BID [facility] Last Admin: 11/26/19 09:49 Dose: 25 mg Documented by: Escitalopram Oxalate (Lexapro -) 10 mg PO DAILY [facility] Last Admin: 11/26/19 09:49 Dose: 10 mg Documented by: Furosemide (Lasix -) 20 mg PO DAILY [facility] Last Admin: 11/26/19 09:50 Dose: 20 mg Documented by: Hydralazine HCl (Apresoline -) 25 mg PO BID [facility] Last Admin: 11/26/19 09:50 Dose: 25 mg Documented by: Insulin Aspart (Novolog Vial Sliding Scale -) 1 vial SQ [facility]; Protocol Last Admin: 11/26/19 11:11 Dose: Not Given Documented by: Oxycodone HCl (Roxicodone -) 10 mg PO Q4H PRN PRN Reason: PAIN LEVEL 4 - 6 Last Admin: 11/26/19 05:43 Dose: 10 mg Documented by: - Objective Vital Signs: Vital Signs Temperature 98.2 F 11/26/19 09:00 Pulse Rate 75 11/26/19 09:00 Respiratory Rate 20 11/26/19 09:00 Blood Pressure 146/72 11/26/19 09:00 O2 Sat by Pulse Oximetry (%) 96 11/26/19 09:00 Constitutional: Yes: No Distress, Calm Eyes: Yes: Conjunctiva Clear, EOM Intact HENT: Yes: Atraumatic, Normocephalic Neck: Yes: Supple, Trachea Midline Cardiovascular: Yes: Regular Rate and Rhythm Respiratory: Yes: Regular, CTA Bilaterally Gastrointestinal: Yes: Normal Bowel Sounds, Soft Labs: CBC, BMP 11/25/19 12:55 11/26/19 08:50 INR, PTT INR 1.49 (0.83-1.09) H 11/25/19 12:55 Problem List - Problems (1) CKD (chronic kidney disease) Code(s): N18.9 - CHRONIC KIDNEY DISEASE, UNSPECIFIED (2) Diabetes 1.5, managed as type 2 Code(s): E10.9 - TYPE 1 DIABETES MELLITUS WITHOUT COMPLICATIONS (3) Closed right hip fracture Code(s): S72.001A - FRACTURE OF UNSP PART OF NECK OF RIGHT FEMUR, INIT Qualifiers: Encounter type: initial encounter Qualified Code(s): S72.001A - Fracture of unspecified part of neck of right femur, initial encounter for closed fracture (4) Anemia in chronic kidney disease Code(s): N18.9 - CHRONIC KIDNEY DISEASE, UNSPECIFIED; D63.1 - ANEMIA IN CHRONIC KIDNEY DISEASE Qualifiers: Chronic kidney disease stage: stage 2 (mild) Qualified Code(s): N18.2 - Chronic kidney disease, stage 2 (mild); D63.1 - Anemia in chronic kidney disease (5) Atrial fibrillation Code(s): I48.91 - UNSPECIFIED ATRIAL FIBRILLATION Qualifiers: Atrial fibrillation type: paroxysmal Qualified Code(s): I48.0 - Paroxysmal atrial fibrillation (6) CHF (congestive heart failure) Code(s): I50.9 - HEART FAILURE, UNSPECIFIED Qualifiers: Heart failure type: combined systolic and diastolic Heart failure chronicity: chronic Qualified Code(s): I50.42 - Chronic combined systolic (congestive) and diastolic (congestive) heart failure (7) Coronary artery disease Code(s): I25.10 - ATHSCL HEART DISEASE OF [place] CORONARY ARTERY W/O ANG PCTRS Qualifiers: Coronary Disease-Associated Artery/Lesion type: [place] artery [place] vs. transplanted heart: [place] heart Associated angina: without angina Qualified Code(s): I25.10 - Atherosclerotic heart disease of [place] coronary artery without angina pectoris
[2019-11-26] MEDS ORDERED: INSULIN (NOVOLOG) ASPART 100 UNITS/ML 10ML VIAL ONE (21:39)
[2019-11-26] MEDS: DOCUSATE SODIUM 100 MG CAPSULE (FP) PO SCH (21:44)
[2019-11-26] MEDS: ATORVASTATIN CA 80 MG TABLET (FP) PO SCH (21:44)
[2019-11-27] MEDS: INSULIN SLIDING SCALE (NOVOLOG) 1 VIAL SQ SCH ×4 (06:30→21:20)
[2019-11-27] MEDS: ACETAMINOPHEN 325 MG TABLET (FP) PO PRN ×2 (08:13→12:16)
[2019-11-27] MEDS: oxyCODONE HCL 5 MG TABLET PO PRN ×2 (08:13→12:16)
[2019-11-27] MEDS ORDERED: ENOXAPARIN NA (PORCINE) 30 MG/0.3 ML DISP.SYRIN SQ SCH (08:30)
[2019-11-27] MEDS: ALLOPURINOL 100 MG TABLET (FP) PO SCH (10:27)
[2019-11-27] MEDS: FUROSEMIDE 20 MG TABLET (FP) PO SCH (10:27)
[2019-11-27] MEDS: hydrALAZINE HCL 25 MG TABLET (FP) PO SCH (10:27)
[2019-11-27] MEDS: CARVEDILOL 25 MG TABLET (FP) PO SCH ×2 (10:27→21:19)
[2019-11-27] MEDS: ESCITALOPRAM OXALATE 10 MG TABLET PO SCH (10:27)
--- NOTE | 2019-11-27 18:17 | PN ---
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, Physician History of Present Illness: Pt seen and examined at bedside. He is awake and alert. he denies shortness of breath. - Current Medication List Current Medications: Active Medications Acetaminophen (Tylenol -) 325 mg PO Q4H PRN PRN Reason: PAIN LEVEL 6-10 Last Admin: 11/27/19 12:16 Dose: 325 mg Documented by: Allopurinol (Zyloprim -) 100 mg PO DAILY [facility] Last Admin: 11/27/19 10:27 Dose: 100 mg Documented by: Atorvastatin Calcium (Lipitor -) 80 mg PO [facility] Last Admin: 11/26/19 21:44 Dose: 80 mg Documented by: Carvedilol (Coreg -) 25 mg PO BID [facility] Last Admin: 11/27/19 10:27 Dose: 25 mg Documented by: Docusate Sodium (Colace -) 100 mg PO [facility] Last Admin: 11/26/19 21:44 Dose: 100 mg Documented by: Enoxaparin Sodium (Lovenox -) 30 mg SQ Q12H [facility] Escitalopram Oxalate (Lexapro -) 10 mg PO DAILY [facility] Last Admin: 11/27/19 10:27 Dose: 10 mg Documented by: Furosemide (Lasix -) 20 mg PO DAILY [facility] Last Admin: 11/27/19 10:27 Dose: 20 mg Documented by: Hydralazine HCl (Apresoline -) 25 mg PO BID [facility] Last Admin: 11/27/19 10:27 Dose: 25 mg Documented by: Insulin Aspart (Novolog Vial Sliding Scale -) 1 vial SQ [facility]; Protocol Last Admin: 11/27/19 16:29 Dose: 2 unit Documented by: Oxycodone HCl (Roxicodone -) 10 mg PO Q4H PRN PRN Reason: PAIN LEVEL 4 - 6 Last Admin: 11/27/19 12:16 Dose: 10 mg Documented by: - Objective Vital Signs: Vital Signs Temperature 98.4 F 11/27/19 14:36 Pulse Rate 64 11/27/19 14:36 Respiratory Rate 18 11/27/19 14:36 Blood Pressure 100/47 L 11/27/19 14:36 O2 Sat by Pulse Oximetry (%) 96 11/27/19 08:15 Constitutional: Yes: Calm Eyes: Yes: Conjunctiva Clear HENT: Yes: Atraumatic Neck: Yes: Supple Cardiovascular: Yes: S1, S2 Respiratory: Yes: CTA Bilaterally Gastrointestinal: Yes: Soft Genitourinary: Yes: WNL Musculoskeletal: Yes: WNL Edema: No Neurological: Yes: Oriented Psychiatric: Yes: Oriented Labs: CBC, BMP 11/25/19 12:55 11/26/19 08:50 INR, PTT INR 1.49 (0.83-1.09) H 11/25/19 12:55 Problem List - Problems (1) CKD (chronic kidney disease) Code(s): N18.9 - CHRONIC KIDNEY DISEASE, UNSPECIFIED (2) Hyperkalemia Code(s): E87.5 - HYPERKALEMIA (3) Acute kidney failure Code(s): N17.9 - ACUTE KIDNEY FAILURE, UNSPECIFIED Qualifiers: Acute renal failure type: with other specified pathological lesion Qualified Code(s): N17.8 - Other acute kidney failure (4) CHF (congestive heart failure) Code(s): I50.9 - HEART FAILURE, UNSPECIFIED Qualifiers: Heart failure type: combined systolic and diastolic Heart failure chronicity: chronic Qualified Code(s): I50.42 - Chronic combined systolic (congestive) and diastolic (congestive) heart failure (5) HTN (hypertension) Code(s): I10 - ESSENTIAL (PRIMARY) HYPERTENSION Qualifiers: Hypertension type: essential hypertension Qualified Code(s): I10 - Essential (primary) hypertension Assessment/Plan Current Medications Generic Name Dose Route Start Last Admin Trade Name Freq PRN Reason Stop Dose Admin Acetaminophen 325 mg 11/25/19 22:28 11/27/19 12:16 Tylenol - PO 325 mg Q4H PRN Administration PAIN LEVEL 6-10 Allopurinol 100 mg 11/26/19 10:00 11/27/19 10:27 Zyloprim - PO 100 mg DAILY MARY Administration Atorvastatin Calcium 80 mg 11/26/19 22:00 11/26/19 21:44 Lipitor - PO 80 mg HS MARY Administration Carvedilol 25 mg 11/25/19 22:45 11/27/19 10:27 Coreg - PO 25 mg BID MARY Administration Docusate Sodium 100 mg 11/26/19 22:00 11/26/19 21:44 Colace - PO 100 mg HS MARY Administration Enoxaparin Sodium 30 mg 11/27/19 08:30 Lovenox - SQ Q12H MARY Escitalopram Oxalate 10 mg 11/26/19 10:00 11/27/19 10:27 Lexapro - PO 10 mg DAILY MARY Administration Furosemide 20 mg 11/26/19 10:00 11/27/19 10:27 Lasix - PO 20 mg DAILY MARY Administration Hydralazine HCl 25 mg 11/25/19 22:45 11/27/19 10:27 Apresoline - PO 25 mg BID MARY Administration Insulin Aspart 1 vial 11/26/19 07:00 11/27/19 16:29 Novolog Vial Sliding Scale - SQ 2 unit ACHS MARY Administration Protocol Oxycodone HCl 10 mg 11/25/19 22:27 11/27/19 12:16 Roxicodone - PO 10 mg Q4H PRN Administration PAIN LEVEL 4 - 6 Impression 1. CKD with acute component 2. hx CHF 3. CAD 4. DM 5. HTN 6. hyperlipidemia 7. BPH 8. pleural effusions 9. SPIKE 10. hyperkalemia 11. right femur fracture Plan - check bmp in am - check potassium - surgery will be Friday - avoid nsaids - ortho input appreciated - will follow Dr Menezes
--- NOTE | 2019-11-27 18:31 | PN ---
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, Physician Chief Complaint: patient complaining of pain, surgery was rescheduled for 11/29/19 confused prossibly because of the Oxycodoen - Current Medication List Current Medications: Active Medications Acetaminophen (Tylenol -) 325 mg PO Q4H PRN PRN Reason: PAIN LEVEL 6-10 Last Admin: 11/27/19 12:16 Dose: 325 mg Documented by: Allopurinol (Zyloprim -) 100 mg PO DAILY [facility] Last Admin: 11/27/19 10:27 Dose: 100 mg Documented by: Atorvastatin Calcium (Lipitor -) 80 mg PO [facility] Last Admin: 11/26/19 21:44 Dose: 80 mg Documented by: Carvedilol (Coreg -) 25 mg PO BID [facility] Last Admin: 11/27/19 10:27 Dose: 25 mg Documented by: Docusate Sodium (Colace -) 100 mg PO [facility] Last Admin: 11/26/19 21:44 Dose: 100 mg Documented by: Enoxaparin Sodium (Lovenox -) 60 mg SQ ONCE ONE Stop: 11/27/19 18:28 Escitalopram Oxalate (Lexapro -) 10 mg PO DAILY [facility] Last Admin: 11/27/19 10:27 Dose: 10 mg Documented by: Furosemide (Lasix -) 20 mg PO DAILY [facility] Last Admin: 11/27/19 10:27 Dose: 20 mg Documented by: Hydralazine HCl (Apresoline -) 10 mg PO BID [facility] Insulin Aspart (Novolog Vial Sliding Scale -) 1 vial SQ [facility]; Protocol Last Admin: 11/27/19 16:29 Dose: 2 unit Documented by: Lidocaine (Lidoderm Patch -) 1 patch TP DAILY [facility] Miscellaneous (Lidoderm Patch Removal) 1 each MC DAILY@2200 [facility] - Objective Vital Signs: Vital Signs Temperature 98.4 F 11/27/19 14:36 Pulse Rate 64 11/27/19 14:36 Respiratory Rate 18 11/27/19 14:36 Blood Pressure 100/47 L 11/27/19 14:36 O2 Sat by Pulse Oximetry (%) 96 11/27/19 08:15 Labs: CBC, BMP 11/25/19 12:55 11/26/19 08:50 INR, PTT INR 1.49 (0.83-1.09) H 11/25/19 12:55 Problem List - Problems (1) CKD (chronic kidney disease) Code(s): N18.9 - CHRONIC KIDNEY DISEASE, UNSPECIFIED (2) Diabetes 1.5, managed as type 2 Code(s): E10.9 - TYPE 1 DIABETES MELLITUS WITHOUT COMPLICATIONS (3) Closed right hip fracture Code(s): S72.001A - FRACTURE OF UNSP PART OF NECK OF RIGHT FEMUR, INIT Qualifiers: Encounter type: initial encounter Qualified Code(s): S72.001A - Fracture of unspecified part of neck of right femur, initial encounter for closed fracture (4) Anemia in chronic kidney disease Code(s): N18.9 - CHRONIC KIDNEY DISEASE, UNSPECIFIED; D63.1 - ANEMIA IN CHRONIC KIDNEY DISEASE Qualifiers: Chronic kidney disease stage: stage 2 (mild) Qualified Code(s): N18.2 - Chronic kidney disease, stage 2 (mild); D63.1 - Anemia in chronic kidney disease (5) Atrial fibrillation Code(s): I48.91 - UNSPECIFIED ATRIAL FIBRILLATION Qualifiers: Atrial fibrillation type: paroxysmal Qualified Code(s): I48.0 - Paroxysmal atrial fibrillation (6) CHF (congestive heart failure) Code(s): I50.9 - HEART FAILURE, UNSPECIFIED Qualifiers: Heart failure type: combined systolic and diastolic Heart failure chronicity: chronic Qualified Code(s): I50.42 - Chronic combined systolic (congestive) and diastolic (congestive) heart failure (7) Coronary artery disease Code(s): I25.10 - ATHSCL HEART DISEASE OF [place] CORONARY ARTERY W/O ANG PCTRS Qualifiers: Coronary Disease-Associated Artery/Lesion type: [place] artery [place] vs. transplanted heart: [place] heart Associated angina: without angina Qualified Code(s): I25.10 - Atherosclerotic heart disease of [place] coronary artery without angina pectoris
[2019-11-27] MEDS ORDERED: ENOXAPARIN NA (PORCINE) 60 MG/0.6 ML DISP.SYRIN SQ ONE ×2 (18:45→22:00)
[2019-11-27] MEDS: DOCUSATE SODIUM 100 MG CAPSULE (FP) PO SCH (21:17)
[2019-11-27] MEDS: hydrALAZINE HCL 10 MG TABLET PO SCH (21:19)
[2019-11-27] MEDS: ATORVASTATIN CA 80 MG TABLET (FP) PO SCH (21:19)
[2019-11-27] MEDS ORDERED: LIDOCAINE PATCH REMOVAL MC SCH (22:00)
--- NOTE | 2019-11-27 22:41 | PN ---
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 (short form) - Note 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: on schedule for OR on Friday pending medical optimization
[2019-11-28] MEDS: INSULIN SLIDING SCALE (NOVOLOG) 1 VIAL SQ SCH ×4 (06:15→21:55)
[2019-11-28 07:47] LABS: BASO % 0.5 % (0-2.0); EOS % 0.4 % (0-4.5); HEMATOCRIT 25.5 % (35.4-49); HEMOGLOBIN 8.1 GM/dL (11.7-16.9); LYMPH % 9.3 % (8-40); MCH 31.1 pg (25.7-33.7); MEAN CELL VOLUME 97.4 fl (80-96); MONO % 3.3 % (3.8-10.2); NEUT % 86.5 % (42.8-82.8); PLATELET COUNT 93 K/MM3 (134-434); RBC 2.61 M/mm3 (4.00-5.60); RDW 18.5 % (11.9-15.9); WHITE BLOOD COUNT 4.8 K/mm3 (4.0-10.0)
[2019-11-28 08:46] LABS: ALBUMIN 2.4 g/dl (3.4-5.0); BILIRUBIN,TOTAL 0.6 mg/dL (0.2-1); BLOOD UREA NITROGEN 94.7 mg/dL (7-18); CALCIUM 8.5 mg/dL (8.5-10.1); CREATININE 3.3 mg/dL (0.55-1.3); POTASSIUM 5.3 mmol/L (3.5-5.1); TOT PROT 6.4 g/dl (6.4-8.2)
[2019-11-28] MEDS: FUROSEMIDE 20 MG TABLET (FP) PO SCH (09:42)
[2019-11-28] MEDS: ESCITALOPRAM OXALATE 10 MG TABLET PO SCH (09:42)
[2019-11-28] MEDS: ALLOPURINOL 100 MG TABLET (FP) PO SCH (09:42)
[2019-11-28] MEDS: hydrALAZINE HCL 10 MG TABLET PO SCH (09:42)
[2019-11-28] MEDS: CARVEDILOL 25 MG TABLET (FP) PO SCH ×2 (09:42→21:22)
[2019-11-28] MEDS: LIDOCAINE 5% TOPICAL PATCH TP SCH (09:48)
[2019-11-28] MEDS ORDERED: FUROSEMIDE 40 MG/4 ML INJECTABLE VIAL IVPUSH SCH (11:21)
--- NOTE | 2019-11-28 11:25 | PN ---
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, Physician Chief Complaint: surgery was rescheduled for 11/29/19 confusion resolved History of Present Illness: 74 yo male who was admitted for right intertrochanteric fracture will have fracture repair with GAmma nail placement on November 29, 2019. The patient was confused yesterday after the administration of Oxycodone. Oxycodone was stopped and the patient is back to his baseline now. He complains of pain of the right thigh and has poor appetite. There is no increased shortness of breath, chest pain or palpitations. - Current Medication List Current Medications: Active Medications Acetaminophen (Tylenol -) 325 mg PO Q4H PRN PRN Reason: PAIN LEVEL 6-10 Last Admin: 11/27/19 12:16 Dose: 325 mg Documented by: Allopurinol (Zyloprim -) 100 mg PO DAILY [facility] Last Admin: 11/28/19 09:42 Dose: 100 mg Documented by: Atorvastatin Calcium (Lipitor -) 80 mg PO [facility] Last Admin: 11/27/19 21:19 Dose: 80 mg Documented by: Carvedilol (Coreg -) 25 mg PO BID [facility] Last Admin: 11/28/19 09:42 Dose: 25 mg Documented by: Docusate Sodium (Colace -) 100 mg PO [facility] Last Admin: 11/27/19 21:17 Dose: 100 mg Documented by: Escitalopram Oxalate (Lexapro -) 10 mg PO DAILY [facility] Last Admin: 11/28/19 09:42 Dose: 10 mg Documented by: Furosemide (Lasix -) 20 mg PO DAILY [facility] Last Admin: 11/28/19 09:42 Dose: 20 mg Documented by: Hydralazine HCl (Apresoline -) 25 mg PO BID [facility] Insulin Aspart (Novolog Vial Sliding Scale -) 1 vial SQ ACHS [facility]; Protocol Last Admin: 11/28/19 06:15 Dose: 2 unit Documented by: Lidocaine (Lidoderm Patch -) 1 patch TP DAILY [facility] Last Admin: 11/28/19 09:48 Dose: 1 patch Documented by: Miscellaneous (Lidoderm Patch Removal) 1 each MC DAILY@2200 [facility] Last Admin: 11/27/19 21:19 Dose: 1 each Documented by: - Objective Vital Signs: Vital Signs Temperature 98.4 F 11/28/19 08:45 Pulse Rate 80 11/28/19 08:45 Respiratory Rate 20 11/28/19 08:45 Blood Pressure 151/69 11/28/19 08:45 O2 Sat by Pulse Oximetry (%) 96 11/27/19 21:00 Constitutional: Yes: No Distress, Calm, Cachectic Eyes: Yes: Conjunctiva Clear, EOM Intact HENT: Yes: Atraumatic, Normocephalic Neck: Yes: Supple, Trachea Midline Cardiovascular: Yes: Regular Rate and Rhythm, S1, S2 Respiratory: Yes: Regular, CTA Bilaterally Gastrointestinal: Yes: Normal Bowel Sounds, Soft ...Rectal Exam: Yes: Deferred Breast(s): Yes: WNL Musculoskeletal: Yes: Muscle Weakness, Other ( ..........) Extremities: Yes: External Rotation (right lower etxremity), Other (pain in the right anterior thigh). No: Calf Tenderness Edema: No Peripheral Pulses WNL: Yes Neurological: Yes: Alert, Oriented Psychiatric: Yes: Alert, Oriented Labs: CBC, BMP 11/28/19 07:10 11/28/19 06:00 INR, PTT INR 1.49 (0.83-1.09) H 11/25/19 12:55 - ....Imaging Chest X-ray: Other (Minimal blunting of the right CPA , cardiomegaly, no infiltrates.) EKG: Other (NSR, 66 b/min, normal P and MD interval , DIVC, QRS axis at 120 degrees, Q in V 1 a III, St-T elevation in V 2) Problem List - Problems (1) Closed right hip fracture Assessment/Plan: for Gamma nail tomorrow Cardiac cleared class III ASA off anticoagulation as per Ortho Lidoderm patches # 2 to the right hip Code(s): S72.001A - FRACTURE OF UNSP PART OF NECK OF RIGHT FEMUR, INIT Qualifiers: Encounter type: initial encounter Qualified Code(s): S72.001A - Fracture of unspecified part of neck of right femur, initial encounter for closed fracture (2) Coronary artery disease Assessment/Plan: Cardiac cleared Code(s): I25.10 - ATHSCL HEART DISEASE OF [place] CORONARY ARTERY W/O ANG PCTRS Qualifiers: Coronary Disease-Associated Artery/Lesion type: [place] artery [place] vs. transplanted heart: [place] heart Associated angina: without angina Qualified Code(s): I25.10 - Atherosclerotic heart disease of [place] coronary artery without angina pectoris (3) CHF (congestive heart failure) Assessment/Plan: gentle hydration will give extra LAsix after the blood unit Code(s): I50.9 - HEART FAILURE, UNSPECIFIED Qualifiers: Heart failure type: combined systolic and diastolic Heart failure chronicity: chronic Qualified Code(s): I50.42 - Chronic combined systolic (congestive) and diastolic (congestive) heart failure (4) CKD (chronic kidney disease) Assessment/Plan: AKD/CKD with deteriorated kidney function possibly due to drop in H/H encouraged po fluids tranfuse 1 u PRBC Problems reviewed: Yes Code(s): N18.9 - CHRONIC KIDNEY DISEASE, UNSPECIFIED Qualifiers: Chronic kidney disease stage: stage 3 (moderate) Qualified Code(s): N18.3 - Chronic kidney disease, stage 3 (moderate) (5) Diabetes 1.5, managed as type 2 Assessment/Plan: regular insulin coverage start IV in am D5 1/2 NS at 42 cc while NPO for surgery tomorrow Code(s): E10.9 - TYPE 1 DIABETES MELLITUS WITHOUT COMPLICATIONS (6) Anemia in chronic kidney disease Assessment/Plan: received transfusions in the past and will receive 1 unit PRBC today repeat CBC in am Code(s): N18.9 - CHRONIC KIDNEY DISEASE, UNSPECIFIED; D63.1 - ANEMIA IN CHRONIC KIDNEY DISEASE Qualifiers: Chronic kidney disease stage: stage 2 (mild) Qualified Code(s): N18.2 - Chronic kidney disease, stage 2 (mild); D63.1 - Anemia in chronic kidney disease (7) Atrial fibrillation Assessment/Plan: chronic Eliquis is on hold in view of surgery administered on dose of lovenox 60 mg once will restart Eliquis post surgery the patient was cleared for surgery by Cardiology Code(s): I48.91 - UNSPECIFIED ATRIAL FIBRILLATION Qualifiers: Atrial fibrillation type: paroxysmal Qualified Code(s): I48.0 - Paroxysmal atrial fibrillation Assessment/Plan PAtient is class III clear for gamma nail repair of the right Intertrochanteric fracture
--- NOTE | 2019-11-28 14:26 | PN ---
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, Physician History of Present Illness: Pt seen and examined at bedside. He denies shortness of breath. - Current Medication List Current Medications: Active Medications Acetaminophen (Tylenol -) 325 mg PO Q4H PRN PRN Reason: PAIN LEVEL 6-10 Last Admin: 11/27/19 12:16 Dose: 325 mg Documented by: Allopurinol (Zyloprim -) 100 mg PO DAILY [facility] Last Admin: 11/28/19 09:42 Dose: 100 mg Documented by: Atorvastatin Calcium (Lipitor -) [address] [facility] Last Admin: 11/27/19 21:19 Dose: 80 mg Documented by: Carvedilol (Coreg -) 25 mg PO BID [facility] Last Admin: 11/28/19 09:42 Dose: 25 mg Documented by: Docusate Sodium (Colace -) [address] [facility] Last Admin: 11/27/19 21:17 Dose: 100 mg Documented by: Escitalopram Oxalate (Lexapro -) 10 mg PO DAILY [facility] Last Admin: 11/28/19 09:42 Dose: 10 mg Documented by: Furosemide (Lasix -) 20 mg PO DAILY [facility] Last Admin: 11/28/19 09:42 Dose: 20 mg Documented by: Furosemide (Lasix Injection -) 20 mg IVPUSH [employer] [facility] Stop: 11/28/19 18:00 Hydralazine HCl (Apresoline -) 25 mg PO BID [facility] Insulin Aspart (Novolog Vial Sliding Scale -) 1 vial SQ [facility]; Protocol Last Admin: 11/28/19 12:22 Dose: 2 unit Documented by: Lidocaine (Lidoderm Patch -) 1 patch TP DAILY [facility] Last Admin: 11/28/19 09:48 Dose: 1 patch Documented by: Miscellaneous (Lidoderm Patch Removal) 2 each MC DAILY@2200 [facility] - Objective Vital Signs: Vital Signs Temperature 98.4 F 11/28/19 08:45 Pulse Rate 80 11/28/19 08:45 Respiratory Rate 20 11/28/19 08:45 Blood Pressure 151/69 11/28/19 08:45 O2 Sat by Pulse Oximetry (%) 96 11/27/19 21:00 Constitutional: Yes: Calm Eyes: Yes: Conjunctiva Clear HENT: Yes: Atraumatic Cardiovascular: Yes: S1, S2 Respiratory: Yes: On Nasal O2 Gastrointestinal: Yes: Soft Genitourinary: Yes: WNL, Incontinence Musculoskeletal: Yes: Muscle Weakness Edema: No Integumentary: Yes: WNL Neurological: Yes: Oriented Psychiatric: Yes: Oriented Labs: CBC, BMP 11/28/19 07:10 11/28/19 06:00 INR, PTT INR 1.49 (0.83-1.09) H 11/25/19 12:55 Problem List - Problems (1) CKD (chronic kidney disease) Code(s): N18.9 - CHRONIC KIDNEY DISEASE, UNSPECIFIED Qualifiers: Chronic kidney disease stage: stage 3 (moderate) Qualified Code(s): N18.3 - Chronic kidney disease, stage 3 (moderate) (2) Hyperkalemia Code(s): E87.5 - HYPERKALEMIA (3) Acute kidney failure Code(s): N17.9 - ACUTE KIDNEY FAILURE, UNSPECIFIED Qualifiers: Acute renal failure type: with other specified pathological lesion Qualified Code(s): N17.8 - Other acute kidney failure (4) CHF (congestive heart failure) Code(s): I50.9 - HEART FAILURE, UNSPECIFIED Qualifiers: Heart failure type: combined systolic and diastolic Heart failure chronicity: chronic Qualified Code(s): I50.42 - Chronic combined systolic (congestive) and diastolic (congestive) heart failure (5) HTN (hypertension) Code(s): I10 - ESSENTIAL (PRIMARY) HYPERTENSION Qualifiers: Hypertension type: essential hypertension Qualified Code(s): I10 - Essential (primary) hypertension Assessment/Plan Current Medications Generic Name Dose Route Start Last Admin Trade Name Freq PRN Reason Stop Dose Admin Acetaminophen 325 mg 11/25/19 22:28 11/27/19 12:16 Tylenol - PO 325 mg Q4H PRN Administration PAIN LEVEL 6-10 Allopurinol 100 mg 11/26/19 10:00 11/28/19 09:42 Zyloprim - PO 100 mg DAILY [facility] Administration Atorvastatin Calcium 80 mg 11/26/19 22:00 11/27/19 21:19 Lipitor - PO 80 mg HS [facility]ARY Administration Carvedilol 25 mg 11/25/19 22:45 11/28/19 09:42 Coreg - PO 25 mg BID [facility] Administration Docusate Sodium 100 mg 11/26/19 22:00 11/27/19 21:17 Colace - PO 100 mg HS [facility]ARY Administration Escitalopram Oxalate 10 mg 11/26/19 10:00 11/28/19 09:42 Lexapro - PO 10 mg DAILY [facility] Administration Furosemide 20 mg 11/26/19 10:00 11/28/19 09:42 Lasix - PO 20 mg DAILY [facility] Administration Furosemide 20 mg 11/28/19 11:21 Lasix Injection - IVPUSH 11/28/19 18:00 [employer] [facility] Hydralazine HCl 25 mg 11/28/19 11:18 Apresoline - PO BID [facility] Insulin Aspart 1 vial 11/26/19 07:00 11/28/19 12:22 Novolog Vial Sliding Scale - SQ 2 unit ACHS [facility] Administration Protocol Lidocaine 1 patch 11/28/19 10:00 11/28/19 09:48 Lidoderm Patch - TP 1 patch DAILY [facility] Administration Miscellaneous 2 each 11/28/19 11:20 Lidoderm Patch Removal MC DAILY@2200 [facility] Impression 1. CKD with acute component 2. hx CHF 3. CAD 4. DM 5. HTN 6. hyperlipidemia 7. BPH 8. pleural effusions 9. SPIKE 10. hyperkalemia 11. 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
[2019-11-28] MEDS ORDERED: SODIUM ZIRCONIUM CYCLOSILICATE (LOKELMA) 5 GM PACKET PO SCH (14:30)
[2019-11-28] MEDS ORDERED: INSULIN (NOVOLOG) ASPART 100 UNITS/ML 10ML VIAL ONE (17:46)
[2019-11-28 20:38] LABS: URINE APPEARANCE Turbid; URINE BILIRUBIN 2+ (NEGATIVE); URINE COLOR Brown; URINE GLUCOSE (UA) Trace (NEGATIVE); URINE KETONE Trace (NEGATIVE); URINE LEUK ESTERASE Trace (NEGATIVE); URINE NITRITE Positive (NEGATIVE); URINE PROTEIN 3+ (NEGATIVE); URINE UROBILINOGEN 0.2 mg/dL (0.2-1.0)
[2019-11-28 20:44] LABS: EPI CELLS 55.3 /uL (0-25.1); HYALINE CASTS 35.59 /uL (0-3.1); URINE BACTERIA 2.2 /uL (0-1359); URINE RBC 1547.1 /uL (0-23.9); URINE WBC 111.1 /uL (0-25.8)
[2019-11-28] MEDS: LIDOCAINE PATCH REMOVAL MC SCH (21:22)
[2019-11-28] MEDS: ATORVASTATIN CA 80 MG TABLET (FP) PO SCH (21:22)
[2019-11-28] MEDS: hydrALAZINE HCL 25 MG TABLET (FP) PO SCH (21:22)
[2019-11-28] MEDS: FUROSEMIDE 40 MG/4 ML INJECTABLE VIAL IVPUSH SCH (21:22)
[2019-11-28] MEDS: DOCUSATE SODIUM 100 MG CAPSULE (FP) PO SCH (21:22)
[2019-11-28] MEDS: DEXTROSE 5%-0.45% SALINE 1,000 ML IV SCH (21:55)
[2019-11-29] MEDS: ACETAMINOPHEN 325 MG TABLET (FP) PO PRN (00:58)
[2019-11-29] MEDS: INSULIN SLIDING SCALE (NOVOLOG) 1 VIAL SQ SCH ×4 (06:12→22:39)
[2019-11-29 08:37] LABS: BASO % 0.5 % (0-2.0); EOS % 0.9 % (0-4.5); HEMATOCRIT 27.9 % (35.4-49); HEMOGLOBIN 9.1 GM/dL (11.7-16.9); LYMPH % 11.7 % (8-40); MCH 31.9 pg (25.7-33.7); MCHC 32.6 g/dl (32.0-35.9); MEAN PLT VOLUME 9.5 fl (7.5-11.1); MONO % 8.2 % (3.8-10.2); NEUT % 78.7 % (42.8-82.8); PLATELET COUNT 90 K/MM3 (134-434); RBC 2.84 M/mm3 (4.00-5.60); RDW 17.8 % (11.9-15.9); WHITE BLOOD COUNT 5.3 K/mm3 (4.0-10.0)
[2019-11-29 08:50] LABS: INR 1.13 (0.83-1.09); PROTHROMBIN TIME (PATIENT) 13.3 SEC (9.7-13.0)
[2019-11-29 08:52] LABS: ACTIVATED PTT 34.4 SECONDS (25.2-36.5)
[2019-11-29 09:04] LABS: ALBUMIN 2.3 g/dl (3.4-5.0); CALCIUM 8.4 mg/dL (8.5-10.1); CREATININE 3.4 mg/dL (0.55-1.3); TOT PROT 6.2 g/dl (6.4-8.2)
[2019-11-29] MEDS: CARVEDILOL 25 MG TABLET (FP) PO SCH ×2 (09:10→22:37)
[2019-11-29] MEDS: hydrALAZINE HCL 25 MG TABLET (FP) PO SCH ×2 (09:10→22:37)
[2019-11-29 09:12] LABS: BLOOD UREA NITROGEN 104.4 mg/dL (7-18)
--- NOTE | 2019-11-29 09:35 | PN ---
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, Physician History of Present Illness: In OR for right gamma nail. - Current Medication List Current Medications: Active Medications Acetaminophen (Tylenol -) 325 mg PO Q4H PRN PRN Reason: PAIN LEVEL 6-10 Last Admin: 11/29/19 00:58 Dose: 325 mg Documented by: Allopurinol (Zyloprim -) 100 mg PO DAILY [facility] Last Admin: 11/28/19 09:42 Dose: 100 mg Documented by: Atorvastatin Calcium (Lipitor -) 80 mg PO [facility] Last Admin: 11/28/19 21:22 Dose: 80 mg Documented by: Carvedilol (Coreg -) 25 mg PO BID [facility] Last Admin: 11/29/19 09:10 Dose: 25 mg Documented by: Docusate Sodium (Colace -) 100 mg PO [facility] Last Admin: 11/28/19 21:22 Dose: 100 mg Documented by: Enoxaparin Sodium (Lovenox -) 60 mg SQ DAILY [facility] Escitalopram Oxalate (Lexapro -) 10 mg PO DAILY [facility] Last Admin: 11/28/19 09:42 Dose: 10 mg Documented by: Furosemide (Lasix Injection -) 20 mg IVPUSH [employer] [facility] Last Admin: 11/28/19 21:22 Dose: 20 mg Documented by: Hydralazine HCl (Apresoline -) 25 mg PO BID [facility] Last Admin: 11/29/19 09:10 Dose: 25 mg Documented by: Dextrose/Sodium Chloride (D5-1/2ns -) 1,000 mls @ 42 mls/hr IV ASDIR [facility] Last Admin: 11/28/19 21:55 Dose: 42 mls/hr Documented by: Insulin Aspart (Novolog Vial Sliding Scale -) 1 vial SQ ACHS [facility]; Protocol Last Admin: 11/29/19 06:12 Dose: 2 unit Documented by: Lidocaine (Lidoderm Patch -) 1 patch TP DAILY [facility] Last Admin: 11/28/19 09:48 Dose: 1 patch Documented by: Miscellaneous (Lidoderm Patch Removal) 2 each MC DAILY@2200 [facility] Last Admin: 11/28/19 21:22 Dose: 2 each Documented by: Sodium Zirconium Cyclosilicate (Lokelma) 10 gm PO DAILY [facility] - Objective Vital Signs: Vital Signs Temperature 98.7 F 11/29/19 05:46 Pulse Rate 76 11/29/19 05:46 Respiratory Rate 20 20 05:46 Blood Pressure 140/67 11/29/19 05:46 O2 Sat by Pulse Oximetry (%) 96 11/28/19 21:00 Labs: CBC, BMP 11/29/19 07:58 11/29/19 07:58 INR, PTT INR 1.13 (0.83-1.09) H 11/29/19 07:58 Assessment/Plan Imaging - Results Chest X-ray: Other (cardiomegaly, , volume loss RLL) X-ray: Other (right femur intertrochanteric fracture) Problem List - Problems (1) CKD (chronic kidney disease) Assessment/Plan: stable, Problems reviewed: Yes Code(s): N18.9 - CHRONIC KIDNEY DISEASE, UNSPECIFIED (2) Diabetes 1.5, managed as type 2 Assessment/Plan: regular insulin coverage start IV D5 1/2 NS at 75 cc if surgery tomorrow Code(s): E10.9 - TYPE 1 DIABETES MELLITUS WITHOUT COMPLICATIONS (3) Closed right hip fracture Assessment/Plan: for Gamma nail tomorrow Code(s): S72.001A - FRACTURE OF UNSP PART OF NECK OF RIGHT FEMUR, INIT Qualifiers: Encounter type: initial encounter Qualified Code(s): S72.001A - Fracture of unspecified part of neck of right femur, initial encounter for closed fracture (4) Anemia in chronic kidney disease Assessment/Plan: received transfusions in the past Code(s): N18.9 - CHRONIC KIDNEY DISEASE, UNSPECIFIED; D63.1 - ANEMIA IN CHRONIC KIDNEY DISEASE Qualifiers: Chronic kidney disease stage: stage 2 (mild) Qualified Code(s): N18.2 - Chronic kidney disease, stage 2 (mild); D63.1 - Anemia in chronic kidney disease (5) Atrial fibrillation Assessment/Plan: chronic Eliquis is on hold in view of surgery Code(s): I48.91 - UNSPECIFIED ATRIAL FIBRILLATION Qualifiers: Atrial fibrillation type: paroxysmal Qualified Code(s): I48.0 - Paroxysmal atrial fibrillation (6) CHF (congestive heart failure) Assessment/Plan: gentle hydration Code(s): I50.9 - HEART FAILURE, UNSPECIFIED Qualifiers: Heart failure type: combined systolic and diastolic Heart failure chronicity: chronic Qualified Code(s): I50.42 - Chronic combined systolic (congestive) and diastolic (congestive) heart failure (7) Coronary artery disease Assessment/Plan: Code(s): I25.10 - ATHSCL HEART DISEASE OF [place] CORONARY ARTERY W/O ANG PCTRS Qualifiers: Coronary Disease-Associated Artery/Lesion type: [place] artery [place] vs. transplanted heart: [place] heart Associated angina: without angina Qualified Code(s): I25.10 - Atherosclerotic heart disease of [place] coronary artery without angina pectoris Assessment/Plan -Preop Evaluation: Rt Hip -CAD, s/p PCIs: last 2016 :LAD,LCX -PAFb -CKD -HTN -DM Plan: -Pt with no active cardiac sx, active prior to event, cardiacwise been stable as outpatient -No contraindication for surgery from cardiac standpoint -Cont Coreg 25 bid, Hydralazine 25 bid, Lipitor 80 qd into day of surgery -Resume AC when feasible
[2019-11-29] MEDS ORDERED: ENOXAPARIN NA (PORCINE) 60 MG/0.6 ML DISP.SYRIN SQ SCH (10:00)
[2019-11-29] MEDS: SODIUM ZIRCONIUM CYCLOSILICATE (LOKELMA) 10 GM PACKET PO SCH (10:30)
[2019-11-29] MEDS: LIDOCAINE 5% TOPICAL PATCH TP SCH (10:30)
[2019-11-29] MEDS: ALLOPURINOL 100 MG TABLET (FP) PO SCH (10:30)
[2019-11-29] MEDS: ESCITALOPRAM OXALATE 10 MG TABLET PO SCH (10:30)
[2019-11-29] MEDS ORDERED: fentaNYL CITRATE 250 MCG/5 ML VIAL ONE (12:25)
[2019-11-29] MEDS ORDERED: PROPOFOL 20 ML ONE (12:26)
[2019-11-29] MEDS ORDERED: SUCCINYLCHOLINE CHLORIDE 200 MG/10 ML SYRINGE ONE (12:27)
[2019-11-29] MEDS ORDERED: EPHEDRINE SULFATE/0.9% NACL/PF 50 MG/10 ML SYRINGE NR ONE (12:27)
[2019-11-29] MEDS ORDERED: ceFAZolin SODIUM 1 GM VIAL IVPB ONE ×2 (12:30→12:50)
[2019-11-29] MEDS ORDERED: DEXAMETHASONE SOD PHOSPHATE 4 MG/1 ML VIAL ONE (12:42)
[2019-11-29] MEDS ORDERED: ceFAZolin SODIUM 1 GM VIAL ONE (12:42)
[2019-11-29] MEDS ORDERED: PHENYLEPHRINE HCL 10 MG/1 ML SINGLE DOSE VIAL ONE (12:47)
--- NOTE | 2019-11-29 13:51 | OP ---
Operative Note - Note: Operative Date: 11/29/19 Pre-Operative Diagnosis: right femur inter trochaneric fracture Operation: right femur Gamma Nail Implants: [place] G3 Gamma Nail, 100mm screw, 37.5mm distal locking screw Surgeon: Singh Murphy Anesthesiologist/SODA CLERK: Roselyn Amos Anesthesia: General Estimated Blood Loss (mls): 150 Drains, Volume Out (mls): 0 Blood Volume Replaced (mls): 0 Fluid Volume Replaced (mls): 1,000 Operative Report Dictated: Yes
--- NOTE | 2019-11-29 13:52 | PN ---
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 (short form) - Note 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: Right femur intramedullary nail/Gamma nail surgery performed today, no complications, EBL 150cc.
[2019-11-29] MEDS ORDERED: ONDANSETRON 4 MG/2 ML VIAL IVPUSH PRN (14:08)
[2019-11-29] MEDS ORDERED: ACETAMINOPHEN 1000 MG/100 ML VIAL (NON FORMULARY) IVPB ONE (14:09)
[2019-11-29] MEDS ORDERED: ACETAMINOPHEN INJECTION 100 ML IVPB ONE (15:19)
[2019-11-29] MEDS: DEXTROSE 5%-0.45% SALINE 1,000 ML IV SCH (15:30)
--- NOTE | 2019-11-29 15:56 | PN ---
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, Physician History of Present Illness: Pt seen and examined at bedside. He is awake and alert. He denies shortness of breath. - Current Medication List Current Medications: Active Medications Acetaminophen (Tylenol -) 325 mg PO Q4H PRN PRN Reason: PAIN LEVEL 6-10 Last Admin: 11/29/19 00:58 Dose: 325 mg Documented by: Allopurinol (Zyloprim -) 100 mg PO DAILY [facility] Last Admin: 11/29/19 10:30 Dose: Not Given Documented by: Atorvastatin Calcium (Lipitor -) 80 mg PO HS [facility] Last Admin: 11/28/19 21:22 Dose: 80 mg Documented by: Carvedilol (Coreg -) 25 mg PO BID [facility] Last Admin: 11/29/19 09:10 Dose: 25 mg Documented by: Docusate Sodium (Colace -) 100 mg PO HS [facility] Last Admin: 11/28/19 21:22 Dose: 100 mg Documented by: Enoxaparin Sodium (Lovenox -) 60 mg SQ DAILY [facility] Last Admin: 11/29/19 10:30 Dose: Not Given Documented by: Escitalopram Oxalate (Lexapro -) 10 mg PO DAILY [facility] Last Admin: 11/29/19 10:30 Dose: Not Given Documented by: Fentanyl (Sublimaze Injection -) 50 mcg IVPUSH [id number] PRN PRN Reason: PAIN-PACU ORDER X 4 DOSES ONLY Furosemide (Lasix Injection -) 20 mg IVPUSH [employer]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 [facility] Last Admin: 11/28/19 21:22 Dose: 20 mg Documented by: Hydralazine HCl (Apresoline -) 25 mg PO BID [facility] Last Admin: 11/29/19 09:10 Dose: 25 mg Documented by: Dextrose/Sodium Chloride (D5-1/2ns -) 1,000 mls @ 42 mls/hr IV ASDIR [facility] Last Admin: 11/28/19 21:55 Dose: 42 mls/hr Documented by: Lactated Ringer's (Lactated Ringers Solution) 1,000 mls @ 75 mls/hr IV ASDIR [facility] Cefazolin Sodium (Ancef 1 Gm Premixed Ivpb -) 1 gm in 50 mls @ 100 mls/hr IVPB Q8H [facility] Stop: 11/30/19 14:59 Insulin Aspart (Novolog Vial Sliding Scale -) 1 vial SQ [facility]; Protocol Last Admin: 11/29/19 11:16 Dose: Not Given Documented by: Lidocaine (Lidoderm Patch -) 1 patch TP DAILY [facility] Last Admin: 11/29/19 10:30 Dose: Not Given Documented by: Miscellaneous (Lidoderm Patch Removal) 2 each MC DAILY@2200 [facility] Last Admin: 11/28/19 21:22 Dose: 2 each Documented by: Ondansetron HCl (Zofran Injection) 4 mg IVPUSH Q6H PRN PRN Reason: NAUSEA AND/OR VOMITING Sodium Zirconium Cyclosilicate (Lokelma) 10 gm PO DAILY [facility] Last Admin: 11/29/19 10:30 Dose: Not Given Documented by: - Objective Vital Signs: Vital Signs Temperature 97.4 F L 11/29/19 13:54 Pulse Rate 75 11/29/19 13:54 Respiratory Rate 15 11/29/19 13:54 Blood Pressure 120/58 L 11/29/19 13:54 O2 Sat by Pulse Oximetry (%) 97 11/29/19 09:00 Constitutional: Yes: Calm Eyes: Yes: Conjunctiva Clear HENT: Yes: Atraumatic Neck: Yes: Supple Cardiovascular: Yes: S1, S2 Respiratory: Yes: CTA Bilaterally Gastrointestinal: Yes: Normal Bowel Sounds, Soft Genitourinary: Yes: WNL Edema: No Neurological: Yes: Oriented Labs: CBC, BMP 11/29/19 07:58 11/29/19 07:58 INR, PTT INR 1.13 (0.83-1.09) H 11/29/19 07:58 Problem List - Problems (1) CKD (chronic kidney disease) Code(s): N18.9 - CHRONIC KIDNEY DISEASE, UNSPECIFIED Qualifiers: Chronic kidney disease stage: stage 3 (moderate) Qualified Code(s): N18.3 - Chronic kidney disease, stage 3 (moderate) (2) Hyperkalemia Code(s): E87.5 - HYPERKALEMIA (3) Acute kidney failure Code(s): N17.9 - ACUTE KIDNEY FAILURE, UNSPECIFIED Qualifiers: Acute renal failure type: with other specified pathological lesion Qualified Code(s): N17.8 - Other acute kidney failure (4) CHF (congestive heart failure) Code(s): I50.9 - HEART FAILURE, UNSPECIFIED Qualifiers: Heart failure type: combined systolic and diastolic Heart failure chronicity: chronic Qualified Code(s): I50.42 - Chronic combined systolic (congestive) and diastolic (congestive) heart failure (5) HTN (hypertension) Code(s): I10 - ESSENTIAL (PRIMARY) HYPERTENSION Qualifiers: Hypertension type: essential hypertension Qualified Code(s): I10 - Essential (primary) hypertension Assessment/Plan Current Medications Generic Name Dose Route Start Last Admin Trade Name Freq PRN Reason Stop Dose Admin Acetaminophen 325 mg 11/25/19 22:28 11/29/19 00:58 Tylenol - PO 325 mg Q4H PRN Administration PAIN LEVEL 6-10 Allopurinol 100 mg 11/26/19 10:00 11/29/19 10:30 Zyloprim - PO Not Given DAILY [facility] Atorvastatin Calcium 80 mg 11/26/19 22:00 11/28/19 21:22 Lipitor - PO 80 mg HS MARY Administration Carvedilol 25 mg 11/25/19 22:45 11/29/19 09:10 Coreg - PO 25 mg BID MARY Administration Docusate Sodium 100 mg 11/26/19 22:00 11/28/19 21:22 Colace - PO 100 mg HS MARY Administration Enoxaparin Sodium 60 mg 11/29/19 10:00 11/29/19 10:30 Lovenox - SQ Not Given DAILY [facility] Escitalopram Oxalate 10 mg 11/26/19 10:00 11/29/19 10:30 Lexapro - PO Not Given DAILY [facility] Fentanyl 50 mcg 11/29/19 14:08 Sublimaze Injection - IVPUSH [id number] PRN PAIN-PACU ORDER X 4 DOSES ONLY Furosemide 20 mg 11/28/19 21:30 11/28/19 21:22 Lasix Injection - IVPUSH 20 mg 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 MARY Administration Hydralazine HCl 25 mg 11/28/19 11:18 11/29/19 09:10 Apresoline - PO 25 mg BID MARY Administration Dextrose/Sodium Chloride 1,000 mls @ 42 mls/hr 11/28/19 21:30 11/28/19 21:55 D5-1/2ns - IV 42 mls/hr ASDIR MARY Administration Lactated Ringer's 1,000 mls @ 75 mls/hr 11/29/19 14:15 Lactated Ringers Solution IV ASDIR MARY Cefazolin Sodium 1 gm in 50 mls @ 100 mls/hr 11/29/19 15:00 Ancef 1 Gm Premixed Ivpb - IVPB 11/30/19 14:59 Q8H MARY Insulin Aspart 1 vial 11/26/19 07:00 11/29/19 11:16 Novolog Vial Sliding Scale - SQ Not Given ACHS MARY Protocol Lidocaine 1 patch 11/28/19 10:00 11/29/19 10:30 Lidoderm Patch - TP Not Given DAILY MARY Miscellaneous 2 each 11/28/19 11:20 11/28/19 21:22 Lidoderm Patch Removal MC 2 each DAILY@2200 MARY Administration Ondansetron HCl 4 mg 11/29/19 14:08 Zofran Injection IVPUSH Q6H PRN NAUSEA AND/OR VOMITING Sodium Zirconium Cyclosilicate 10 gm 11/29/19 10:00 11/29/19 10:30 Lokelma PO Not Given DAILY MARY Impression 1. CKD with acute component 2. hx CHF 3. CAD 4. DM 5. HTN 6. hyperlipidemia 7. BPH 8. pleural effusions 9. SPIKE 10. hyperkalemia 11. right femur fracture Plan - renal function worsening - potassium improved - avoid intraop hypotension - cont fluids for now - repeat labs in am Dr Menezes
[2019-11-29] MEDS: LACTATED RINGERS SOLUTION 1,000 ML IV SCH (16:13)
[2019-11-29] MEDS: CEFAZOLIN 1 GM/D5W 1 GM/50 ML BAG IVPB SCH (16:13)
[2019-11-29] MEDS: LIDOCAINE PATCH REMOVAL MC SCH (21:36)
--- NOTE | 2019-11-29 22:20 | PN ---
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, Physician Chief Complaint: patient had gamma nail placement in the right hip an dtolearted well, during my examination he is sedated but arousable - Current Medication List Current Medications: Active Medications Acetaminophen (Tylenol -) 325 mg PO Q4H PRN PRN Reason: PAIN LEVEL 6-10 Last Admin: 11/29/19 00:58 Dose: 325 mg Documented by: Allopurinol (Zyloprim -) 100 mg PO DAILY [facility] Last Admin: 11/29/19 10:30 Dose: Not Given Documented by: Atorvastatin Calcium (Lipitor -) 80 mg PO [facility] Last Admin: 11/28/19 21:22 Dose: 80 mg Documented by: Carvedilol (Coreg -) 25 mg PO BID [facility] Last Admin: 11/29/19 09:10 Dose: 25 mg Documented by: Docusate Sodium (Colace -) 100 mg PO [facility] Last Admin: 11/28/19 21:22 Dose: 100 mg Documented by: Escitalopram Oxalate (Lexapro -) 10 mg PO DAILY [facility] Last Admin: 11/29/19 10:30 Dose: Not Given Documented by: Fentanyl (Sublimaze Injection -) 50 mcg IVPUSH [id number] PRN PRN Reason: PAIN-PACU ORDER X 4 DOSES ONLY Furosemide (Lasix Injection -) 20 mg 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 [facility] Last Admin: 11/28/19 21:22 Dose: 20 mg Documented by: Hydralazine HCl (Apresoline -) 25 mg PO BID [facility] Last Admin: 11/29/19 09:10 Dose: 25 mg Documented by: Lactated Ringer's (Lactated Ringers Solution) 1,000 mls @ 75 mls/hr IV ASDIR [facility] Last Admin: 11/29/19 16:13 Dose: Not Given Documented by: Cefazolin Sodium (Ancef 1 Gm Premixed Ivpb -) 1 gm in 50 mls @ 100 mls/hr IVPB Q8H [facility] Stop: 11/30/19 14:59 Last Admin: 11/29/19 16:13 Dose: Not Given Documented by: Insulin Aspart (Novolog Vial Sliding Scale -) 1 vial SQ ACHS [facility]; Protocol Last Admin: 11/29/19 16:53 Dose: 2 unit Documented by: Lidocaine (Lidoderm Patch -) 1 patch TP DAILY [facility] Last Admin: 11/29/19 10:30 Dose: Not Given Documented by: Miscellaneous (Lidoderm Patch Removal) 2 each MC DAILY@2200 [facility] Last Admin: 11/29/19 21:36 Dose: Not Given Documented by: Ondansetron HCl (Zofran Injection) 4 mg IVPUSH Q6H PRN PRN Reason: NAUSEA AND/OR VOMITING Sodium Zirconium Cyclosilicate (Lokelma) 10 gm PO DAILY [facility] Last Admin: 11/29/19 10:30 Dose: Not Given Documented by: - Objective Vital Signs: Vital Signs Temperature 97.2 F L 11/29/19 19:17 Pulse Rate 71 11/29/19 19:17 Respiratory Rate 20 11/29/19 16:06 Blood Pressure 141/55 L 11/29/19 19:17 O2 Sat by Pulse Oximetry (%) 100 11/29/19 15:30 Constitutional: Yes: No Distress, Calm Eyes: Yes: Conjunctiva Clear, EOM Intact HENT: Yes: Atraumatic, Normocephalic Neck: Yes: Supple, Trachea Midline Cardiovascular: Yes: Regular Rate and Rhythm, S1, S2 Respiratory: Yes: Regular, CTA Bilaterally Gastrointestinal: Yes: Normal Bowel Sounds, Soft Labs: CBC, BMP 11/29/19 07:58 11/29/19 07:58 INR, PTT INR 1.13 (0.83-1.09) H 11/29/19 07:58 Problem List - Problems (1) Closed right hip fracture Assessment/Plan: tolerated well Gamma nail placement Cardiac cleared class III ASA off anticoagulation as per Ortho Lidoderm patches # 2 to the right hip add Oxycodone 5 mg every 4 hours as needed Code(s): S72.001A - FRACTURE OF UNSP PART OF NECK OF RIGHT FEMUR, INIT Qualifiers: Encounter type: initial encounter Qualified Code(s): S72.001A - Fracture of unspecified part of neck of right femur, initial encounter for closed fracture (2) Coronary artery disease Assessment/Plan: Cardiac cleared post op ekg in am Code(s): I25.10 - ATHSCL HEART DISEASE OF [place] CORONARY ARTERY W/O ANG PCTRS Qualifiers: Coronary Disease-Associated Artery/Lesion type: [place] artery [place] vs. transplanted heart: [place] heart Associated angina: without angina Qualified Code(s): I25.10 - Atherosclerotic heart disease of [place] coronary artery without angina pectoris (3) CHF (congestive heart failure) Assessment/Plan: gentle hydration will give extra LAsix after the blood unit due to elevated BUN will continue hydartion woth D5 1/2 NS, until po intake will improve Code(s): I50.9 - HEART FAILURE, UNSPECIFIED Qualifiers: Heart failure type: combined systolic and diastolic Heart failure chronic ity: chronic Qualified Code(s): I50.42 - Chronic combined systolic (congestive) and diastolic (congestive) heart failure (4) CKD (chronic kidney disease) Assessment/Plan: AKD/CKD with deteriorated kidney function possibly due to drop in H/H encouraged po fluids tranfused 1 u PRBC correction of HB to 9 Code(s): N18.9 - CHRONIC KIDNEY DISEASE, UNSPECIFIED Qualifiers: Chronic kidney disease stage: stage 3 (moderate) Qualified Code(s): N18.3 - Chronic kidney disease, stage 3 (moderate) (5) Diabetes 1.5, managed as type 2 Assessment/Plan: regular insulin coverage start IV in am D5 1/2 NS at 42 cc while NPO for surgery tomorrow Code(s): E10.9 - TYPE 1 DIABETES MELLITUS WITHOUT COMPLICATIONS (6) Anemia in chronic kidney disease Assessment/Plan: received transfusions in the past and will receive 1 unit PRBC today repeat CBC in am Code(s): N18.9 - CHRONIC KIDNEY DISEASE, UNSPECIFIED; D63.1 - ANEMIA IN CHRONIC KIDNEY DISEASE Qualifiers: Chronic kidney disease stage: stage 2 (mild) Qualified Code(s): N18.2 - Chronic kidney disease, stage 2 (mild); D63.1 - Anemia in chronic kidney disease (7) Atrial fibrillation Assessment/Plan: chronic Eliquis is on hold in view of surgery will restart Eliquis post surgery the patient was cleared for surgery by Cardiology Code(s): I48.91 - UNSPECIFIED ATRIAL FIBRILLATION Qualifiers: Atrial fibrillation type: paroxysmal Qualified Code(s): I48.0 - Paroxysmal atrial fibrillation
[2019-11-29] MEDS: DOCUSATE SODIUM 100 MG CAPSULE (FP) PO SCH (22:37)
[2019-11-29] MEDS: ATORVASTATIN CA 80 MG TABLET (FP) PO SCH (22:37)
[2019-11-30] MEDS: LACTATED RINGERS SOLUTION 1,000 ML IV SCH (00:25)
[2019-11-30] MEDS: CEFAZOLIN 1 GM/D5W 1 GM/50 ML BAG IVPB SCH ×2 (00:29→07:08)
[2019-11-30] MEDS: INSULIN SLIDING SCALE (NOVOLOG) 1 VIAL SQ SCH ×4 (06:39→21:08)
--- NOTE | 2019-11-30 06:54 | PN ---
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 (short form) - Note 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: Chief Complaint: Events noted, notes reviewed, resting in bed, denies any chest discomfort, denies dyspnea, reports incisional discomfort History of Present Illness: Seen and examined. Events noted, notes reviewed, resting in bed, denies any c hest discomfort, denies dyspnea, reports incisional discomfort Medications: Current Medications Generic Name Dose Route Start Last Admin Trade Name Freq PRN Reason Stop Dose Admin Acetaminophen 325 mg 11/25/19 22:28 11/29/19 00:58 Tylenol - PO 325 mg Q4H PRN Administration PAIN LEVEL 6-10 Allopurinol 100 mg 11/26/19 10:00 11/29/19 10:30 Zyloprim - PO Not Given DAILY MARY Atorvastatin Calcium 80 mg 11/26/19 22:00 11/29/19 22:37 Lipitor - PO 80 mg HS MARY Administration Carvedilol 25 mg 11/25/19 22:45 11/29/19 22:37 Coreg - PO 25 mg BID MARY Administration Docusate Sodium 100 mg 11/26/19 22:00 11/29/19 22:37 Colace - PO 100 mg HS MARY Administration Escitalopram Oxalate 10 mg 11/26/19 10:00 11/29/19 10:30 Lexapro - PO Not Given DAILY MARY Fentanyl 50 mcg 11/29/19 14:08 Sublimaze Injection - IVPUSH [id number] PRN PAIN-PACU ORDER X 4 DOSES ONLY Hydralazine HCl 25 mg 11/28/19 11:18 11/29/19 22:37 Apresoline - PO 25 mg BID MARY Administration Lactated Ringer's 1,000 mls @ 75 mls/hr 11/29/19 14:15 11/30/19 00:25 Lactated Ringers Solution IV 75 mls/hr ASDIR MARY Administration Cefazolin Sodium 1 gm in 50 mls @ 100 mls/hr 11/29/19 15:00 11/30/19 00:29 Ancef 1 Gm Premixed Ivpb - IVPB 11/30/19 14:59 100 mls/hr Q8H MARY Administration Insulin Aspart 1 vial 11/26/19 07:00 11/30/19 06:39 Novolog Vial Sliding Scale - SQ 4 unit ACHS MARY Administration Protocol Lidocaine 1 patch 11/28/19 10:00 11/29/19 10:30 Lidoderm Patch - TP Not Given DAILY [facility] Miscellaneous 2 each 11/28/19 11:20 11/29/19 21:36 Lidoderm Patch Removal MC Not Given DAILY@2200 [facility] Ondansetron HCl 4 mg 11/29/19 14:08 Zofran Injection IVPUSH Q6H PRN NAUSEA AND/OR VOMITING Sodium Zirconium Cyclosilicate 10 gm 11/29/19 10:00 11/29/19 10:30 Lokelma PO Not Given DAILY [facility] Review of Systems - Review of Systems Constitutional: denies: Fever or Chills Cardiovascular: As noted above Respiratory: denies: Cough or Sputum Production Gastrointestinal: denies: Nausea, Vomiting, Diarrhea, Constipation, Abdominal Pain Neurological: denies: Headaches Vital Signs: Last Vital Signs Temp Pulse Resp BP Pulse Ox 97.4 F L 74 20 140/66 100 11/30/19 06:00 11/30/19 06:00 11/30/19 06:00 11/30/19 06:00 11/29/19 21:00 Intake & Output 11/27/19 11/28/19 11/29/19 11/30/19 23:59 23:59 23:59 23:59 Intake Total 030 276 4137 Output Total 200 300 Balance 215 990 9014 Weight 130 lb 130 lb 2 oz 128 lb 2 oz 130 lb 2 oz Neck: Supple Negative JVD No Bruit Respiratory: Diminished breath sounds at the bases Cardiovascular: S1 S2 Regular Rate and Rhythm Gastrointestinal: Soft Benign Normal Bowel Sounds Ext: Negative Edema Labs: CBC, BMP 11/30/19 07:15 11/30/19 07:15 CBC, BMP 11/29/19 07:58 11/29/19 07:58 Assessment/Plan ASSESSMENT: 1. Pre-procedure cardiovascular evaluation prior to proceeding with right hip fracture operative intervention- POD # 1 post right femur gamma nail insertion 2. Coronary artery disease post percutaneous coronary intervention angina pectoris, clinically stable 3. Diastolic left ventricular dysfunction with clinical class 0 [place] [employer] classification left ventricular failure 4. Persistent atrial fibrillation on chronic anticoagulation therapy with DOAC's 5. Hypertensive vascular disease 6. Diabetes mellitus 7. Chronic kidney disease/prerenal azotemia 8. Anemia and thrombocytopenia PLAN: 1. Pain management as per the primary team 2. Recommend resumption of anticoagulation therapy/DOAC therapy once hemostasis is achieved/cleared by orthopedic surgery 3. Continue Coreg therapy 4. Continue Hydralazine therapy 5. Continue Lipitor therapy 6. Patient stated that he wants to be discharged home, for home physical therapy Patient is to follow-up with his lpn rn post discharge Dr. Beau Smith M.D.
[2019-11-30 08:35] LABS: BASO % 0.1 % (0-2.0); HEMATOCRIT 27.3 % (35.4-49); LYMPH % 6.1 % (8-40); MCH 31.9 pg (25.7-33.7); MCHC 32.8 g/dl (32.0-35.9); MEAN CELL VOLUME 97.1 fl (80-96); MEAN PLT VOLUME 9.6 fl (7.5-11.1); MONO % 4.3 % (3.8-10.2); NEUT % 89.5 % (42.8-82.8); PLATELET COUNT 90 K/MM3 (134-434); RBC 2.81 M/mm3 (4.00-5.60); RDW 17.2 % (11.9-15.9); WHITE BLOOD COUNT 4.7 K/mm3 (4.0-10.0)
[2019-11-30 08:37] LABS: ALBUMIN 2.3 g/dl (3.4-5.0); BILIRUBIN,TOTAL 0.7 mg/dL (0.2-1); BLOOD UREA NITROGEN 103.5 mg/dL (7-18); CALCIUM 8.4 mg/dL (8.5-10.1); CREATININE 3.2 mg/dL (0.55-1.3); POTASSIUM 5.6 mmol/L (3.5-5.1); TOT PROT 6.2 g/dl (6.4-8.2)
--- NOTE | 2019-11-30 09:12 | SPEC ---
DATE OF OPERATION: 11/29/2019 LOCATION: [facility] PREOPERATIVE DIAGNOSIS: Right femur intertrochanteric hip fracture. POSTOPERATIVE DIAGNOSIS: Right femur intertrochanteric hip fracture. PROCEDURE: Right femur intramedullary nail/Gamma nail. SURGEON: Gaby Diane MD RESIDENTIAL GREEN BUILDING DESIGNER: None. ANESTHESIOLOGIST: CASTILLO Hoskins ANESTHESIA: LMA anesthesia. DRAINS: None. COMPLICATIONS: None. SPECIMENS: None. BLOOD LOSS: 150 mL. BLOOD GIVEN: None. FLUID REPLACEMENT: Plasma-Lyte, 1000 mL. INDICATION: This patient is a 74-year-old male with a preoperative diagnosis of a right femur intertrochanteric hip fracture. After understanding the potential risks and benefits he and his both elected to undergo this procedure. All questions and concerns were addressed. PROCEDURE: Patient was brought to the operating room. Peripheral IV placed, IV sedation given. One gram of IV Ancef was given. LMA anesthesia was induced. The patient had ample Webril placed around the perineal post and both ankles. The patient was placed onto the fracture table with a slight longitudinal traction and internal rotation. X-rays were taken documenting excellent reduction of the fracture in the AP and lateral planes. Next, an incision was made over the proximal aspect of the greater trochanter. Subcutaneous hemostasis was achieved with a Bovie cautery, dissection done through the lateral fascia to the top of the greater trochanter. A Marques elevator was used to take off the soft tissue from the starting point. Under direct visualization a partially threaded guidewire was placed through the standard starting position, into the proximal femur, passed the fracture fragment into the medullary canal. It was documented to be in excellent position in AP, lateral and multiple oblique planes. Next, we used the proximal 17-mm cannulated reamer and put in a standard right titanium Bibi Gamma 3, 125-degree, 180-mm trochanteric nail. This was put in cannulated fashion to appropriate depth and using the external guide in a standard fashion, first using external jig, using a threaded guidewire, replaced the lag screw, guide pin to the lateral aspect of the femur. The prosthesis and up to the femoral neck and head, looked to be in excellent position in a center central position, perhaps slightly posterior and slightly inferior in both AP and lateral planes. We measured it at an 100-mm screw. The cannulated drill was used to drill it to this leg and then we put in an 100-mm titanium lag screw. We achieved excellent compression and overall the position of the hardware in the fracture fragments looked excellent. We locked it in place with a proximal set screw, we altered the external jig to the static position and using the standard technique put in a distal interlocking screw under direct visualization of 37.5 mm in length. This locked the nail distally. We removed the external jig. We repeated x-rays in AP, lateral and multiple oblique planes and overall I was quite happy with the position of the fracture reduction, the length of the screw, the position of the hardware. Final x-rays were taken. The area was copiously irrigated and washed out. The deep fascial layer was closed with 0 Vicryl sutures. The deep dermal layer was closed with 2-0 Vicryl. Final skin approximation was done with kimberly. The area was then washed and dried, covered with Xeroform gauze, 4 x 4 gauze, ABD and tape. Patient was taken down off the fracture table in stable condition. There were no complications during the case. Total operative time was about 45 minutes. GABY DIANE M.D. [id number]
[2019-11-30] MEDS ORDERED: PT OWN MED DRAWER 7, Y5N ONE (09:43)
[2019-11-30] MEDS: CARVEDILOL 25 MG TABLET (FP) PO SCH ×2 (09:45→21:06)
[2019-11-30] MEDS: hydrALAZINE HCL 25 MG TABLET (FP) PO SCH ×2 (09:45→21:06)
[2019-11-30] MEDS: LIDOCAINE 5% TOPICAL PATCH TP SCH (09:45)
[2019-11-30] MEDS: SODIUM ZIRCONIUM CYCLOSILICATE (LOKELMA) 10 GM PACKET PO SCH (09:45)
[2019-11-30] MEDS: ESCITALOPRAM OXALATE 10 MG TABLET PO SCH (09:45)
[2019-11-30] MEDS: ALLOPURINOL 100 MG TABLET (FP) PO SCH (09:45)
[2019-11-30] MEDS ORDERED: SODIUM CHLORIDE 0.45% 1,000 ML IV SCH ×2 (10:45→18:04)
--- NOTE | 2019-11-30 12:25 | PN ---
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 (short form) - Note 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: Anesthesia postop note POD#1. S/P right femur gamma nail under GA, LMA. VSS. C/O pain in surgical site. No apparent post anesthesia complications.
--- NOTE | 2019-11-30 16:32 | PN ---
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 (short form) - Note 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: Ortho Pt seen and examined s/p right IM gamma nail pod #1 Selected Entries 11/30/19 14:34 Temperature 97.9 F Pulse Rate 73 Respiratory 20 Rate Blood Pressure 114/54 L Laboratory Tests 11/30/19 07:15 WBC 4.7 Hgb 9.0 L Hct 27.3 L Plt Count 90 L dressing c/d/i, calf soft, nt nvi a/p PT PWB dvt ppx pain control d/c planning
--- NOTE | 2019-11-30 18:07 | PN ---
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, Physician History of Present Illness: Pt seen and examined at bedside. He is awake and appears comfortable. Family are at bedside. He says that his urine is dark. - Current Medication List Current Medications: Active Medications Acetaminophen (Tylenol -) 325 mg PO Q4H PRN PRN Reason: PAIN LEVEL 6-10 Last Admin: 11/29/19 00:58 Dose: 325 mg Documented by: Allopurinol (Zyloprim -) 100 mg PO DAILY [facility] Last Admin: 11/30/19 09:45 Dose: 100 mg Documented by: Atorvastatin Calcium (Lipitor -) 80 mg PO [facility] Last Admin: 11/29/19 22:37 Dose: 80 mg Documented by: Carvedilol (Coreg -) 25 mg PO BID [facility] Last Admin: 11/30/19 09:45 Dose: 25 mg Documented by: Docusate Sodium (Colace -) 100 mg PO [facility] Last Admin: 11/29/19 22:37 Dose: 100 mg Documented by: Escitalopram Oxalate (Lexapro -) 10 mg PO DAILY [facility] Last Admin: 11/30/19 09:45 Dose: 10 mg Documented by: Fentanyl (Sublimaze Injection -) 50 mcg IVPUSH [id number] PRN PRN Reason: PAIN-PACU ORDER X 4 DOSES ONLY Hydralazine HCl (Apresoline -) 25 mg PO BID [facility] Last Admin: 11/30/19 09:45 Dose: 25 mg Documented by: Sodium Chloride (1/2 Normal Saline) 1,000 mls @ 65 mls/hr IV ASDIR [facility] Insulin Aspart (Novolog Vial Sliding Scale -) 1 vial SQ ACHS [facility]; Protocol Last Admin: 11/30/19 16:56 Dose: 4 unit Documented by: Lidocaine (Lidoderm Patch -) 1 patch TP DAILY [facility] Last Admin: 11/30/19 09:45 Dose: 1 patch Documented by: Miscellaneous (Lidoderm Patch Removal) 2 each MC DAILY@2200 [facility] Last Admin: 11/29/19 21:36 Dose: Not Given Documented by: Ondansetron HCl (Zofran Injection) 4 mg IVPUSH Q6H PRN PRN Reason: NAUSEA AND/OR VOMITING Sodium Zirconium Cyclosilicate (Lokelma) 10 gm PO DAILY [facility] Last Admin: 11/30/19 09:45 Dose: 10 gm Documented by: - Objective Vital Signs: Vital Signs Temperature 97.9 F 11/30/19 14:34 Pulse Rate 73 11/30/19 14:34 Respiratory Rate 20 11/30/19 14:34 Blood Pressure 114/54 L 11/30/19 14:34 O2 Sat by Pulse Oximetry (%) 99 11/30/19 09:00 Constitutional: Yes: Calm Eyes: Yes: Conjunctiva Clear HENT: Yes: Atraumatic Neck: Yes: Supple Cardiovascular: Yes: S1, S2 Respiratory: Yes: CTA Bilaterally Gastrointestinal: Yes: Soft Genitourinary: Yes: WNL Edema: No Neurological: Yes: Oriented Psychiatric: Yes: Oriented Labs: CBC, BMP 11/30/19 07:15 11/30/19 07:15 INR, PTT INR 1.13 (0.83-1.09) H 11/29/19 07:58 Problem List - Problems (1) CKD (chronic kidney disease) Code(s): N18.9 - CHRONIC KIDNEY DISEASE, UNSPECIFIED Qualifiers: Chronic kidney disease stage: stage 3 (moderate) Qualified Code(s): N18.3 - Chronic kidney disease, stage 3 (moderate) (2) Hyperkalemia Code(s): E87.5 - HYPERKALEMIA (3) Acute kidney failure Code(s): N17.9 - ACUTE KIDNEY FAILURE, UNSPECIFIED Qualifiers: Acute renal failure type: with other specified pathological lesion Qualified Code(s): N17.8 - Other acute kidney failure (4) CHF (congestive heart failure) Code(s): I50.9 - HEART FAILURE, UNSPECIFIED Qualifiers: Heart failure type: combined systolic and diastolic Heart failure chronicity: chronic Qualified Code(s): I50.42 - Chronic combined systolic (congestive) and diastolic (congestive) heart failure (5) HTN (hypertension) Code(s): I10 - ESSENTIAL (PRIMARY) HYPERTENSION Qualifiers: Hypertension type: essential hypertension Qualified Code(s): I10 - Essential (primary) hypertension Assessment/Plan Current Medications Generic Name Dose Route Start Last Admin Trade Name Freq PRN Reason Stop Dose Admin Acetaminophen 325 mg 11/25/19 22:28 11/29/19 00:58 Tylenol - PO 325 mg Q4H PRN Administration PAIN LEVEL 6-10 Allopurinol 100 mg 11/26/19 10:00 06/30/20 09:45 Zyloprim - PO 100 mg DAILY [facility] Administration Atorvastatin Calcium 80 mg 11/26/19 22:00 11/29/19 22:37 Lipitor - PO 80 mg HS [facility] Administration Carvedilol 25 mg 11/25/19 22:45 11/30/19 09:45 Coreg - PO 25 mg BID [facility] Administration Docusate Sodium 100 mg 11/26/19 22:00 11/29/19 22:37 Colace - PO 100 mg HS [facility] Administration Escitalopram Oxalate 10 mg 11/26/19 10:00 11/30/19 09:45 Lexapro - PO 10 mg DAILY [facility] Administration Fentanyl 50 mcg 11/29/19 14:08 Sublimaze Injection - IVPUSH [id number] PRN PAIN-PACU ORDER X 4 DOSES ONLY Hydralazine HCl 25 mg 11/28/19 11:18 11/30/19 09:45 Apresoline - PO 25 mg BID [facility] Administration Sodium Chloride 1,000 mls @ 65 mls/hr 11/30/19 18:04 1/2 Normal Saline IV ASDIR [facility] Insulin Aspart 1 vial 11/26/19 07:00 11/30/19 16:56 Novolog Vial Sliding Scale - SQ 4 unit ACHS [facility] Administration Protocol Lidocaine 1 patch 11/28/19 10:00 11/30/19 09:45 Lidoderm Patch - TP 1 patch DAILY [facility] Administration Miscellaneous 2 each 11/28/19 11:20 11/29/19 21:36 Lidoderm Patch Removal MC Not Given DAILY@2200 [facility] Ondansetron HCl 4 mg 11/29/19 14:08 Zofran Injection IVPUSH Q6H PRN NAUSEA AND/OR VOMITING Sodium Zirconium Cyclosilicate 10 gm 11/29/19 10:00 11/30/19 09:45 Lokelma PO 10 gm DAILY [facility] Administration Impression 1. CKD with acute component 2. hx CHF 3. CAD 4. DM 5. HTN 6. hyperlipidemia 7. BPH 8. pleural effusions 9. SPIKE 10. hyperkalemia 11. right femur fracture Plan - start 06/03 ns - check ua - repeat labs in am - cont lokelma - fluid should help with potassium - hold diuretics for now - monitor bp Dr Menezes
[2019-11-30] MEDS: SODIUM CHLORIDE 0.45% 1,000 ML IV SCH (18:41)
[2019-11-30] MEDS: FUROSEMIDE 40 MG/4 ML INJECTABLE VIAL IVPUSH SCH (20:45)
[2019-11-30] MEDS ORDERED: INSULIN (NOVOLOG) ASPART 100 UNITS/ML 10ML VIAL ONE (20:59)
[2019-11-30] MEDS: ATORVASTATIN CA 80 MG TABLET (FP) PO SCH (21:06)
[2019-11-30] MEDS: DOCUSATE SODIUM 100 MG CAPSULE (FP) PO SCH (21:06)
[2019-11-30] MEDS: LIDOCAINE PATCH REMOVAL MC SCH (21:08)
[2019-11-30 21:43] LABS: EPI CELLS 5 /uL (0-25.1); HYALINE CASTS 2 /uL (0-3.1); URINE APPEARANCE TURBID; URINE BACTERIA 2 /uL (0-1359); URINE BILIRUBIN NEGATIVE (NEGATIVE); URINE COLOR ORANGE; URINE GLUCOSE (UA) 1+ (NEGATIVE); URINE KETONE NEGATIVE (NEGATIVE); URINE LEUK ESTERASE TRACE (NEGATIVE); URINE NITRITE NEGATIVE (NEGATIVE); URINE PROTEIN 3+ (NEGATIVE); URINE RBC 1158 /uL (0-23.9); URINE UROBILINOGEN 0.2 mg/dL (0.2-1.0); URINE WBC 10 /uL (0-25.8)
[2019-11-30] MEDS: oxyCODONE HCL 5 MG TABLET PO PRN (23:31)
--- NOTE | 2019-11-30 23:38 | PN ---
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, Physician Chief Complaint: patient is day 2 post op after right hip fracture repair with gamma nail placement History of Present Illness: 74 yo male who was admitted for right intertrochanteric fracture repair with GAmma nail placement on November 29, 2019. The patient is alert and oriented today. He complains of pain of the right thigh and has poor appetite. There is no shortness of breath, chest pain or palpitations. There is no fever. - Current Medication List Current Medications: Active Medications Acetaminophen (Tylenol -) 325 mg PO Q4H PRN PRN Reason: PAIN LEVEL 6-10 Last Admin: 11/29/19 00:58 Dose: 325 mg Documented by: Allopurinol (Zyloprim -) 100 mg PO DAILY [facility] Last Admin: 11/30/19 09:45 Dose: 100 mg Documented by: Atorvastatin Calcium (Lipitor -) 80 mg PO [facility] Last Admin: 11/30/19 21:06 Dose: 80 mg Documented by: Carvedilol (Coreg -) 25 mg PO BID [facility] Last Admin: 11/30/19 21:06 Dose: 25 mg Documented by: Docusate Sodium (Colace -) 100 mg PO [facility] Last Admin: 11/30/19 21:06 Dose: 100 mg Documented by: Escitalopram Oxalate (Lexapro -) 10 mg PO DAILY [facility] Last Admin: 11/30/19 09:45 Dose: 10 mg Documented by: Fentanyl (Sublimaze Injection -) 50 mcg IVPUSH [id number] PRN PRN Reason: PAIN-PACU ORDER X 4 DOSES ONLY Hydralazine HCl (Apresoline -) 25 mg PO BID [facility] Last Admin: 11/30/19 21:06 Dose: 25 mg Documented by: Sodium Chloride (1/2 Normal Saline) 1,000 mls @ 50 mls/hr IV ASDIR [facility] Last Admin: 11/30/19 18:41 Dose: 50 mls/hr Documented by: Insulin Aspart (Novolog Vial Sliding Scale -) 1 vial SQ [facility]; Protocol Last Admin: 11/30/19 21:08 Dose: 4 unit Documented by: Lidocaine (Lidoderm Patch -) 1 patch TP DAILY [facility] Last Admin: 11/30/19 09:45 Dose: 1 patch Documented by: Miscellaneous (Lidoderm Patch Removal) 2 each MC DAILY@2200 [facility] Last Admin: 06/30/20 21:08 Dose: 2 each Documented by: Ondansetron HCl (Zofran Injection) 4 mg IVPUSH Q6H PRN PRN Reason: NAUSEA AND/OR VOMITING Oxycodone HCl (Roxicodone -) 5 mg PO Q6H PRN PRN Reason: PAIN LEVEL 6-10 Last Admin: 11/30/19 23:31 Dose: 5 mg Documented by: Sodium Zirconium Cyclosilicate (Lokelma) 10 gm PO DAILY [facility] Last Admin: 11/30/19 09:45 Dose: 10 gm Documented by: - Objective Vital Signs: Vital Signs Temperature 99 F 11/30/19 21:09 Pulse Rate 74 11/30/19 21:09 Respiratory Rate 18 11/30/19 21:09 Blood Pressure 122/68 11/30/19 21:09 O2 Sat by Pulse Oximetry (%) 99 11/30/19 21:00 Constitutional: Yes: No Distress, Calm Eyes: Yes: Conjunctiva Clear, EOM Intact HENT: Yes: Atraumatic, Normocephalic Neck: Yes: Supple, Trachea Midline Cardiovascular: Yes: Regular Rate and Rhythm Respiratory: Yes: On Nasal O2. No: Orthopnea, SOB, SOB on Exertion Gastrointestinal: Yes: Normal Bowel Sounds, Soft ...Rectal Exam: Yes: Deferred Breast(s): Yes: WNL Musculoskeletal: Yes: Other (pain in the right thigh). No: Back Pain Extremities: No: Calf Tenderness Edema: No Peripheral Pulses WNL: Yes Integumentary: Yes: Other (stage 1 prssure ulcer of the sacral area) Neurological: Yes: Alert, Oriented Psychiatric: Yes: Alert, Oriented Labs: CBC, BMP 11/30/19 07:15 11/30/19 07:15 INR, PTT INR 1.13 (0.83-1.09) H 11/29/19 07:58 Problem List - Problems (1) Closed right hip fracture Assessment/Plan: tolerated well Gamma nail placement Cardiac cleared class III ASA off anticoagulation as per Ortho Lidoderm patches # 2 to the right hip add Oxycodone 5 mg every 4 hours as needed Code(s): S72.001A - FRACTURE OF UNSP PART OF NECK OF RIGHT FEMUR, INIT Qualifiers: Encounter type: initial encounter Qualified Code(s): S72.001A - Fracture of unspecified part of neck of right femur, initial encounter for closed fracture (2) Coronary artery disease Assessment/Plan: had no complications during surgery off anticoagulation Code(s): I25.10 - ATHSCL HEART DISEASE OF [place] CORONARY ARTERY W/O ANG PCTRS Qualifiers: Coronary Disease-Associated Artery/Lesion type: [place] artery [place] vs. transplanted heart: [place] heart Associated angina: without angina Qualified Code(s): I25.10 - Atherosclerotic heart disease of [place] coronary artery without angina pectoris (3) CHF (congestive heart failure) Assessment/Plan: gentle hydration due to elevated BUN will continue hydration with 1/2 NS, until po intake will improve Code(s): I50.9 - HEART FAILURE, UNSPECIFIED Qualifiers: Heart failure type: combined systolic and diastolic Heart failure chronicity: chronic Qualified Code(s): I50.42 - Chronic combined systolic (congestive) and diastolic (congestive) heart failure (4) CKD (chronic kidney disease) Assessment/Plan: AKD/CKD with deteriorated kidney function possibly due to drop in H/H encouraged po fluids tranfused 1 u PRBC with a correction of HB to 9 Code(s): N18.9 - CHRONIC KIDNEY DISEASE, UNSPECIFIED Qualifiers: Chronic kidney disease stage: stage 3 (moderate) Qualified Code(s): N18.3 - Chronic kidney disease, stage 3 (moderate) (5) Diabetes 1.5, managed as type 2 Assessment/Plan: regular insulin coverage start IV in am D5 1/2 NS at 42 cc while NPO for surgery tomorrow Code(s): E10.9 - TYPE 1 DIABETES MELLITUS WITHOUT COMPLICATIONS (6) Anemia in chronic kidney disease Assessment/Plan: received transfusions in the past and received 1 unit PRBC prior to surgery repeat CBC in am showed Ht of 9 Code(s): N18.9 - CHRONIC KIDNEY DISEASE, UNSPECIFIED; D63.1 - ANEMIA IN CHRONIC KIDNEY DISEASE Qualifiers: Chronic kidney disease stage: stage 2 (mild) Qualified Code(s): N18.2 - Chronic kidney disease, stage 2 (mild); D63.1 - Anemia in chronic kidney disease (7) Atrial fibrillation Assessment/Plan: chronic Eliquis is on hold will restart Eliquis post surgery Code(s): I48.91 - UNSPECIFIED ATRIAL FIBRILLATION Qualifiers: Atrial fibrillation type: paroxysmal Qualified Code(s): I48.0 - Paroxysmal atrial fibrillation
[2019-12-01] MEDS: INSULIN SLIDING SCALE (NOVOLOG) 1 VIAL SQ SCH ×4 (06:25→21:37)
--- NOTE | 2019-12-01 09:33 | PN ---
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 (short form) - Note 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: Ortho Pt seen and examined s/p right IM gamma nail pod #2 Selected Entries 12/01/19 05:55 Temperature 98.4 F Pulse Rate 72 Respiratory 18 Rate Blood Pressure 144/58 L Laboratory Tests 11/30/19 07:15 WBC 4.7 Hgb 9.0 L Hct 27.3 L Plt Count 90 L dressing c/d/i, calf soft, nt nvi a/p PT PWB dvt ppx pain control d/c planning
[2019-12-01] MEDS: ALLOPURINOL 100 MG TABLET (FP) PO SCH (10:11)
[2019-12-01] MEDS: LIDOCAINE 5% TOPICAL PATCH TP SCH (10:11)
[2019-12-01] MEDS: CARVEDILOL 25 MG TABLET (FP) PO SCH ×2 (10:12→21:12)
[2019-12-01] MEDS: ESCITALOPRAM OXALATE 10 MG TABLET PO SCH (10:12)
[2019-12-01] MEDS: hydrALAZINE HCL 25 MG TABLET (FP) PO SCH ×2 (10:12→21:12)
[2019-12-01 10:27] LABS: ALBUMIN 2.3 g/dl (3.4-5.0); ALK PHOS 65 U/L (45-117); ANION GAP 7 MMOL/L (8-16); BILIRUBIN,TOTAL 0.7 mg/dL (0.2-1); CALCIUM 8.1 mg/dL (8.5-10.1); CHLORIDE 108 mmol/L (98-107); CO2 25 mmol/L (21-32); GLUCOSE,RANDOM 161 mg/dL (74-106); SGOT/AST 7 U/L (15-37); SGPT/ALT < 6 U/L (13-61); SODIUM 139 mmol/L (136-145)
[2019-12-01 10:30] LABS: CREATININE 3.3 mg/dL (0.55-1.3)
--- NOTE | 2019-12-01 10:38 | PN ---
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, Physician History of Present Illness: Denies any chest discomfort or dyspnea, reports incisional discomfort right hip. - Current Medication List Current Medications: Active Medications Acetaminophen (Tylenol -) 325 mg PO Q4H PRN PRN Reason: PAIN LEVEL 6-10 Last Admin: 11/29/19 00:58 Dose: 325 mg Documented by: Allopurinol (Zyloprim -) 100 mg PO DAILY [facility] Last Admin: 12/01/19 10:11 Dose: 100 mg Documented by: Atorvastatin Calcium (Lipitor -) 80 mg PO [facility] Last Admin: 11/30/19 21:06 Dose: 80 mg Documented by: Carvedilol (Coreg -) 25 mg PO BID [facility] Last Admin: 12/01/19 10:12 Dose: 25 mg Documented by: Docusate Sodium (Colace -) 100 mg PO [facility] Last Admin: 11/30/19 21:06 Dose: 100 mg Documented by: Escitalopram Oxalate (Lexapro -) 10 mg PO DAILY [facility] Last Admin: 12/01/19 10:12 Dose: 10 mg Documented by: Fentanyl (Sublimaze Injection -) 50 mcg IVPUSH [id number] PRN PRN Reason: PAIN-PACU ORDER X 4 DOSES ONLY Hydralazine HCl (Apresoline -) 25 mg PO BID [facility] Last Admin: 12/01/19 10:12 Dose: 25 mg Documented by: Sodium Chloride (1/2 Normal Saline) 1,000 mls @ 50 mls/hr IV ASDIR [facility] Last Admin: 11/30/19 18:41 Dose: 50 mls/hr Documented by: Insulin Aspart (Novolog Vial Sliding Scale -) [address] [facility]; Protocol Last Admin: 12/01/19 06:25 Dose: 2 unit Documented by: Lidocaine (Lidoderm Patch -) 2 patch TP DAILY [facility] Last Admin: 12/01/19 10:11 Dose: 2 patch Documented by: Miscellaneous (Lidoderm Patch Removal) 2 each MC DAILY@2200 [facility] Last Admin: 11/30/19 21:08 Dose: 2 each Documented by: Ondansetron HCl (Zofran Injection) 4 mg IVPUSH Q6H PRN PRN Reason: NAUSEA AND/OR VOMITING Oxycodone HCl (Roxicodone -) 5 mg PO Q6H PRN PRN Reason: PAIN LEVEL 6-10 Last Admin: 11/30/19 23:31 Dose: 5 mg Documented by: Sodium Zirconium Cyclosilicate (Lokelma) 10 gm PO DAILY [facility] Last Admin: 11/30/19 09:45 Dose: 10 gm Documented by: - Objective Vital Signs: Vital Signs Temperature 98.4 F 12/01/19 05:55 Pulse Rate 72 12/01/19 05:55 Respiratory Rate 18 12/01/19 05:55 Blood Pressure 144/58 L 12/01/19 05:55 O2 Sat by Pulse Oximetry (%) 99 11/30/19 21:00 Constitutional: Yes: No Distress, Calm, Thin Neck: Yes: Supple Cardiovascular: Yes: Pulse Irregular Respiratory: Yes: Regular, Diminished, On Nasal O2 Gastrointestinal: Yes: Normal Bowel Sounds, Soft Edema: No Labs: CBC, BMP 11/30/19 07:15 12/01/19 09:10 INR, PTT INR 1.13 (0.83-1.09) H 11/29/19 07:58 Assessment/Plan Imaging - Results Chest X-ray: Other (cardiomegaly, , volume loss RLL) X-ray: Other (right femur intertrochanteric fracture) Problem List - Problems (1) CKD (chronic kidney disease) Assessment/Plan: stable, Problems reviewed: Yes Code(s): N18.9 - CHRONIC KIDNEY DISEASE, UNSPECIFIED (2) Diabetes 1.5, managed as type 2 Assessment/Plan: regular insulin coverage start IV D5 1/2 NS at 75 cc if surgery tomorrow Code(s): E10.9 - TYPE 1 DIABETES MELLITUS WITHOUT COMPLICATIONS (3) Closed right hip fracture Assessment/Plan: POD#2 Right Gamma nail Code(s): S72.001A - FRACTURE OF UNSP PART OF NECK OF RIGHT FEMUR, INIT Qualifiers: Encounter type: initial encounter Qualified Code(s): S72.001A - Fracture of unspecified part of neck of right femur, initial encounter for closed fracture (4) Anemia in chronic kidney disease Assessment/Plan: received transfusions in the past Code(s): N18.9 - CHRONIC KIDNEY DISEASE, UNSPECIFIED; D63.1 - ANEMIA IN CHRONIC KIDNEY DISEASE Qualifiers: Chronic kidney disease stage: stage 2 (mild) Qualified Code(s): N18.2 - Chronic kidney disease, stage 2 (mild); D63.1 - Anemia in chronic kidney disease (5) Atrial fibrillation Assessment/Plan: chronic Eliquis is still held post-op Code(s): I48.91 - UNSPECIFIED ATRIAL FIBRILLATION Qualifiers: Atrial fibrillation type: paroxysmal Qualified Code(s): I48.0 - Paroxysmal atrial fibrillation (6) CHF (congestive heart failure) Assessment/Plan: gentle hydration Code(s): I50.9 - HEART FAILURE, UNSPECIFIED Qualifiers: Heart failure type: combined systolic and diastolic Heart failure chronicity: chronic Qualified Code(s): I50.42 - Chronic combined systolic (congestive) and diastolic (congestive) heart failure (7) Coronary artery disease Assessment/Plan: Code(s): I25.10 - ATHSCL HEART DISEASE OF [place] CORONARY ARTERY W/O ANG PCTRS Qualifiers: Coronary Disease-Associated Artery/Lesion type: [place] artery [place] vs. transplanted heart: [place] heart Associated angina: without angina Qualified Code(s): I25.10 - Atherosclerotic heart disease of [place] coronary artery without angina pectoris Assessment/Plan 1. POD # 2 post right femur gamma nail insertion 2. Coronary artery disease post percutaneous coronary intervention angina pectoris, clinically stable 3. Diastolic left ventricular dysfunction with clinical class 0 [place] [employer] classification left ventricular failure 4. Persistent atrial fibrillation off chronic anticoagulation therapy with DOAC's post-op 5. Hypertensive vascular disease 6. Diabetes mellitus 7. Acute on chronic kidney disease 8. Anemia and thrombocytopenia PLAN: 1. Pain management as per the primary team 2. Resume Eliquis once hemostasis is achieved/cleared by orthopedic surgery 3. Continue Coreg 25 bid, Hydralazine 25 bid and Lipitor 80 qd 4. Gentle hydration with monitor renal recovery and hyperkalemia improvement 5. Patient stated that he wants to be discharged home, for home physical therapy Patient is to follow-up with his sprigger post discharge Dr. Beau Chacon
[2019-12-01 10:51] LABS: BLOOD UREA NITROGEN 106.1 mg/dL (7-18)
[2019-12-01] MEDS ORDERED: INSULIN (NOVOLOG) ASPART 100 UNITS/ML 10ML VIAL ONE (11:21)
[2019-12-01] MEDS ORDERED: PT OWN MED DRAWER 7, Y5N ONE (11:22)
[2019-12-01] MEDS: SODIUM ZIRCONIUM CYCLOSILICATE (LOKELMA) 10 GM PACKET PO SCH (11:28)
[2019-12-01] MEDS: SODIUM CHLORIDE 0.45% 1,000 ML IV SCH (12:15)
--- NOTE | 2019-12-01 13:25 | PN ---
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, Physician History of Present Illness: Pt seen and examined at bedside. He denies shortness of breath. He is awake and alert. - Current Medication List Current Medications: Active Medications Acetaminophen (Tylenol -) 325 mg PO Q4H PRN PRN Reason: PAIN LEVEL 6-10 Last Admin: 11/29/19 00:58 Dose: 325 mg Documented by: Allopurinol (Zyloprim -) 100 mg PO DAILY [facility] Last Admin: 12/01/19 10:11 Dose: 100 mg Documented by: Atorvastatin Calcium (Lipitor -) 80 mg PO [facility] Last Admin: 11/30/19 21:06 Dose: 80 mg Documented by: Carvedilol (Coreg -) 25 mg PO BID [facility] Last Admin: 12/01/19 10:12 Dose: 25 mg Documented by: Docusate Sodium (Colace -) 100 mg PO [facility] Last Admin: 11/30/19 21:06 Dose: 100 mg Documented by: Escitalopram Oxalate (Lexapro -) 10 mg PO DAILY [facility] Last Admin: 12/01/19 10:12 Dose: 10 mg Documented by: Fentanyl (Sublimaze Injection -) 50 mcg IVPUSH [id number] PRN PRN Reason: PAIN-PACU ORDER X 4 DOSES ONLY Hydralazine HCl (Apresoline -) 25 mg PO BID [facility] Last Admin: 12/01/19 10:12 Dose: 25 mg Documented by: Sodium Chloride (1/2 Normal Saline) 1,000 mls @ 50 mls/hr IV ASDIR [facility] Last Admin: 12/01/19 12:15 Dose: 50 mls/hr Documented by: Insulin Aspart (Novolog Vial Sliding Scale -) 1 vial SQ ACHS [facility]; Protocol Last Admin: 12/01/19 11:28 Dose: 2 unit Documented by: Lidocaine (Lidoderm Patch -) 2 patch TP DAILY [facility] Last Admin: 12/01/19 10:11 Dose: 2 patch Documented by: Miscellaneous (Lidoderm Patch Removal) 2 each MC DAILY@2200 [facility] Last Admin: 11/30/19 21:08 Dose: 2 each Documented by: Ondansetron HCl (Zofran Injection) 4 mg IVPUSH Q6H PRN PRN Reason: NAUSEA AND/OR VOMITING Oxycodone HCl (Roxicodone -) 5 mg PO Q6H PRN PRN Reason: PAIN LEVEL 6-10 Last Admin: 11/30/19 23:31 Dose: 5 mg Documented by: Sodium Zirconium Cyclosilicate (Lokelma) 10 gm PO DAILY [facility] Last Admin: 12/01/19 11:28 Dose: 10 gm Documented by: - Objective Vital Signs: Vital Signs Temperature 98 F 12/01/19 09:00 Pulse Rate 73 12/01/19 09:00 Respiratory Rate 18 12/01/19 09:00 Blood Pressure 112/50 L 12/01/19 09:00 O2 Sat by Pulse Oximetry (%) 99 11/30/19 21:00 Constitutional: Yes: Calm Eyes: Yes: Conjunctiva Clear HENT: Yes: Atraumatic Neck: Yes: Supple Cardiovascular: Yes: S1, S2 Respiratory: Yes: CTA Bilaterally Gastrointestinal: Yes: Soft Genitourinary: Yes: WNL Edema: No Integumentary: Yes: WNL Neurological: Yes: Oriented Labs: CBC, BMP 11/30/19 07:15 12/01/19 09:10 INR, PTT INR 1.13 (0.83-1.09) H 11/29/19 07:58 Problem List - Problems (1) CKD (chronic kidney disease) Code(s): N18.9 - CHRONIC KIDNEY DISEASE, UNSPECIFIED Qualifiers: Chronic kidney disease stage: stage 3 (moderate) Qualified Code(s): N18.3 - Chronic kidney disease, stage 3 (moderate) (2) Hyperkalemia Code(s): E87.5 - HYPERKALEMIA (3) Acute kidney failure Code(s): N17.9 - ACUTE KIDNEY FAILURE, UNSPECIFIED Qualifiers: Acute renal failure type: with other specified pathological lesion Qualified Code(s): N17.8 - Other acute kidney failure (4) CHF (congestive heart failure) Code(s): I50.9 - HEART FAILURE, UNSPECIFIED Qualifiers: Heart failure type: combined systolic and diastolic Heart failure chronici ty: chronic Qualified Code(s): I50.42 - Chronic combined systolic (congestive) and diastolic (congestive) heart failure (5) HTN (hypertension) Code(s): I10 - ESSENTIAL (PRIMARY) HYPERTENSION Qualifiers: Hypertension type: essential hypertension Qualified Code(s): I10 - Essential (primary) hypertension Assessment/Plan Current Medications Generic Name Dose Route Start Last Admin Trade Name Freq PRN Reason Stop Dose Admin Acetaminophen 325 mg 11/25/19 22:28 11/29/19 00:58 Tylenol - PO 325 mg Q4H PRN Administration PAIN LEVEL 6-10 Allopurinol 100 mg 11/26/19 10:00 12/01/19 10:11 Zyloprim - PO 100 mg DAILY [facility] Administration Atorvastatin Calcium 80 mg 11/26/19 22:00 11/30/19 21:06 Lipitor - PO 80 mg HS [facility] Administration Carvedilol 25 mg 11/25/19 22:45 12/01/19 10:12 Coreg - PO 25 mg BID [facility] Administration Docusate Sodium 100 mg 11/26/19 22:00 11/30/19 21:06 Colace - PO 100 mg HS [facility] Administration Escitalopram Oxalate 10 mg 11/26/19 10:00 12/01/19 10:12 Lexapro - PO 10 mg DAILY [facility] Administration Fentanyl 50 mcg 11/29/19 14:08 Sublimaze Injection - IVPUSH [id number] PRN PAIN-PACU ORDER X 4 DOSES ONLY Hydralazine HCl 25 mg 11/28/19 11:18 12/01/19 10:12 Apresoline - PO 25 mg BID [facility] Administration Sodium Chloride 1,000 mls @ 50 mls/hr 11/30/19 18:07 12/01/19 12:15 1/2 Normal Saline IV 50 mls/hr ASDIR [facility] Administration Insulin Aspart 1 vial 11/26/19 07:00 12/01/19 11:28 Novolog Vial Sliding Scale - SQ 2 unit ACHS [facility] Administration Protocol Lidocaine 2 patch 12/01/19 10:00 12/01/19 10:11 Lidoderm Patch - TP 2 patch DAILY [facility] Administration Miscellaneous 2 each 11/28/19 11:20 11/30/19 21:08 Lidoderm Patch Removal MC 2 each DAILY@2200 [facility] Administration Ondansetron HCl 4 mg 11/29/19 14:08 Zofran Injection IVPUSH Q6H PRN NAUSEA AND/OR VOMITING Oxycodone HCl 5 mg 11/30/19 19:18 11/30/19 23:31 Roxicodone - PO 5 mg Q6H PRN Administration PAIN LEVEL 6-10 Sodium Zirconium Cyclosilicate 10 gm 11/29/19 10:00 12/01/19 11:28 Lokelma PO 10 gm DAILY [facility] Administration Impression 1. CKD with acute component 2. hx CHF 3. CAD 4. DM 5. HTN 6. hyperlipidemia 7. BPH 8. pleural effusions 9. SPIKE 10. hyperkalemia 11. right femur fracture Plan - cont gently hydration - urine is getting clearer - cont lokelma - potassium improved - repeat labs in am - monitor bp Dr Menezes
[2019-12-01] MEDS: oxyCODONE HCL 5 MG TABLET PO PRN (21:12)
[2019-12-01] MEDS: ATORVASTATIN CA 80 MG TABLET (FP) PO SCH (21:12)
[2019-12-01] MEDS: DOCUSATE SODIUM 100 MG CAPSULE (FP) PO SCH (21:12)
[2019-12-01] MEDS: LIDOCAINE PATCH REMOVAL MC SCH (21:37)
--- NOTE | 2019-12-01 22:25 | PN ---
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, Physician Chief Complaint: patient is day 3 post op after right hip fracture repair with gamma nail placement History of Present Illness: pain better, dysphagia present, no bowel movement since admission 74 yo male who was admitted for right intertrochanteric fracture repair with GAmma nail placement on November 29, 2019. The patient is alert and oriented today. He complains of pain of the right thigh and has poor appetite. There is no shortness of breath, chest pain or palpitations. There is no fever. - Current Medication List Current Medications: Active Medications Acetaminophen (Tylenol -) 325 mg PO Q4H PRN PRN Reason: PAIN LEVEL 6-10 Last Admin: 11/29/19 00:58 Dose: 325 mg Documented by: Allopurinol (Zyloprim -) 100 mg PO DAILY [facility] Last Admin: 12/01/19 10:11 Dose: 100 mg Documented by: Atorvastatin Calcium (Lipitor -) 80 mg PO [facility] Last Admin: 12/01/19 21:12 Dose: 80 mg Documented by: Carvedilol (Coreg -) 25 mg PO BID [facility] Last Admin: 12/01/19 21:12 Dose: 25 mg Documented by: Docusate Sodium (Colace -) 100 mg PO [facility] Last Admin: 12/01/19 21:12 Dose: 100 mg Documented by: Escitalopram Oxalate (Lexapro -) 10 mg PO DAILY [facility] Last Admin: 12/01/19 10:12 Dose: 10 mg Documented by: Fentanyl (Sublimaze Injection -) 50 mcg IVPUSH [id number] PRN PRN Reason: PAIN-PACU ORDER X 4 DOSES ONLY Hydralazine HCl (Apresoline -) 25 mg PO BID [facility] Last Admin: 12/01/19 21:12 Dose: 25 mg Documented by: Sodium Chloride (1/2 Normal Saline) 1,000 mls @ 50 mls/hr IV ASDIR [facility] Last Admin: 12/01/19 12:15 Dose: 50 mls/hr Documented by: Insulin Aspart (Novolog Vial Sliding Scale -) 1 vial SQ ACHS [facility]; Protocol Last Admin: 12/01/19 21:37 Dose: 2 unit Documented by: Lidocaine (Lidoderm Patch -) 2 patch TP DAILY [facility] Last Admin: 12/01/19 10:11 Dose: 2 patch Documented by: Miscellaneous (Lidoderm Patch Removal) 2 each MC DAILY@2200 [facility] Last Admin: 12/01/19 21:37 Dose: 2 each Documented by: Ondansetron HCl (Zofran Injection) 4 mg IVPUSH Q6H PRN PRN Reason: NAUSEA AND/OR VOMITING Oxycodone HCl (Roxicodone -) 5 mg PO Q6H PRN PRN Reason: PAIN LEVEL 6-10 Last Admin: 12/01/19 21:12 Dose: 5 mg Documented by: Sodium Zirconium Cyclosilicate (Lokelma) 10 gm PO DAILY [facility] Last Admin: 12/01/19 11:28 Dose: 10 gm Documented by: - Objective Vital Signs: Vital Signs Temperature 97.7 F 12/01/19 19:22 Pulse Rate 77 12/01/19 21:18 Respiratory Rate 18 12/01/19 21:18 Blood Pressure 130/70 12/01/19 21:18 O2 Sat by Pulse Oximetry (%) 100 12/01/19 21:00 Constitutional: Yes: No Distress, Calm Eyes: Yes: Conjunctiva Clear, EOM Intact HENT: Yes: Atraumatic, Normocephalic Neck: Yes: Supple, Trachea Midline Cardiovascular: Yes: Regular Rate and Rhythm, S1, S2 Gastrointestinal: Yes: Normal Bowel Sounds, Soft. No: Distention ...Rectal Exam: Yes: Deferred Breast(s): Yes: WNL Extremities: No: Calf Tenderness Edema: No Neurological: Yes: Alert, Oriented Psychiatric: Yes: Alert, Oriented Labs: CBC, BMP 11/30/19 07:15 12/01/19 09:10 INR, PTT INR 1.13 (0.83-1.09) H 11/29/19 07:58 Problem List - Problems (1) Closed right hip fracture Assessment/Plan: tolerated well Gamma nail placement off anticoagulation as per Ortho Lidoderm patches # 2 to the right hip add Oxycodone 5 mg every 4 hours as needed Code(s): S72.001A - FRACTURE OF UNSP PART OF NECK OF RIGHT FEMUR, INIT Qualifiers: Encounter type: initial encounter Qualified Code(s): S72.001A - Fracture of unspecified part of neck of right femur, initial encounter for closed fracture (2) Coronary artery disease Assessment/Plan: had no complications during surgery off anticoagulation Code(s): I25.10 - ATHSCL HEART DISEASE OF [place] CORONARY ARTERY W/O ANG PCTRS Qualifiers: Coronary Disease-Associated Artery/Lesion type: [place] artery [place] vs. transplanted heart: [place] heart Associated angina: without angina Qualified Code(s): I25.10 - Atherosclerotic heart disease of [place] coronary artery withou t angina pectoris (3) CHF (congestive heart failure) Assessment/Plan: gentle hydration due to elevated BUN will continue hydration with 1/2 NS, until po intake will improve Code(s): I50.9 - HEART FAILURE, UNSPECIFIED Qualifiers: Heart failure type: combined systolic and diastolic Heart failure chronicity: chronic Qualified Code(s): I50.42 - Chronic combined systolic (congestive) and diastolic (congestive) heart failure (4) CKD (chronic kidney disease) Assessment/Plan: AKD/CKD with deteriorated kidney function possibly due to drop in H/H encouraged po fluids tranfused 1 u PRBC with a correction of HB to 9 Code(s): N18.9 - CHRONIC KIDNEY DISEASE, UNSPECIFIED Qualifiers: Chronic kidney disease stage: stage 3 (moderate) Qualified Code(s): N18.3 - Chronic kidney disease, stage 3 (moderate) (5) Diabetes 1.5, managed as type 2 Assessment/Plan: regular insulin coverage start IV in am D5 1/2 NS at 42 cc while NPO for surgery tomorrow Code(s): E10.9 - TYPE 1 DIABETES MELLITUS WITHOUT COMPLICATIONS (6) Anemia in chronic kidney disease Code(s): N18.9 - CHRONIC KIDNEY DISEASE, UNSPECIFIED; D63.1 - ANEMIA IN CHRONIC KIDNEY DISEASE Qualifiers: Chronic kidney disease stage: stage 2 (mild) Qualified Code(s): N18.2 - Chronic kidney disease, stage 2 (mild); D63.1 - Anemia in chronic kidney disease (7) Atrial fibrillation Assessment/Plan: chronic Eliquis is on hold will restart Eliquis post surgery Code(s): I48.91 - UNSPECIFIED ATRIAL FIBRILLATION Qualifiers: Atrial fibrillation type: paroxysmal Qualified Code(s): I48.0 - Paroxysmal atrial fibrillation Assessment/Plan PAtient samy be discharged to rehab once kidney function at baseline.
[2019-12-02] MEDS: INSULIN SLIDING SCALE (NOVOLOG) 1 VIAL SQ SCH ×4 (06:12→22:12)
[2019-12-02] MEDS ORDERED: MAGNESIUM HYDROX 2400MG/30ML ORAL SUSPENSION 30 ML CUP PO ONE (06:47)
[2019-12-02] MEDS: SODIUM CHLORIDE 0.45% 1,000 ML IV SCH ×2 (07:49→21:51)
[2019-12-02 08:44] LABS: ALBUMIN 2.4 g/dl (3.4-5.0); ALK PHOS 68 U/L (45-117); ANION GAP 7 MMOL/L (8-16); BILIRUBIN,TOTAL 0.5 mg/dL (0.2-1); CHLORIDE 107 mmol/L (98-107); CO2 24 mmol/L (21-32); CREATININE 3.4 mg/dL (0.55-1.3); GLUCOSE,RANDOM 152 mg/dL (74-106); POTASSIUM 4.9 mmol/L (3.5-5.1); SGOT/AST 7 U/L (15-37); SGPT/ALT < 6 U/L (13-61); SODIUM 138 mmol/L (136-145)
[2019-12-02] MEDS ORDERED: PT OWN MED DRAWER 7, Y5N ONE ×2 (09:43→16:52)
[2019-12-02] MEDS: CARVEDILOL 25 MG TABLET (FP) PO SCH ×2 (09:51→21:53)
[2019-12-02] MEDS: oxyCODONE HCL 5 MG TABLET PO PRN (09:51)
[2019-12-02] MEDS: hydrALAZINE HCL 25 MG TABLET (FP) PO SCH ×2 (09:51→21:52)
[2019-12-02] MEDS: ALLOPURINOL 100 MG TABLET (FP) PO SCH (09:53)
[2019-12-02] MEDS: ESCITALOPRAM OXALATE 10 MG TABLET PO SCH (09:53)
[2019-12-02] MEDS: PANTOPRAZOLE 40 MG TABLET PO SCH (09:53)
[2019-12-02] MEDS: LIDOCAINE 5% TOPICAL PATCH TP SCH (09:53)
--- NOTE | 2019-12-02 10:04 | PN ---
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, Physician History of Present Illness: Denies any chest discomfort or dyspnea, reports incisional discomfort right hip. POD#3 right IM nail. - Current Medication List Current Medications: Active Medications Acetaminophen (Tylenol -) 325 mg PO Q4H PRN PRN Reason: PAIN LEVEL 6-10 Last Admin: 11/29/19 00:58 Dose: 325 mg Documented by: Allopurinol (Zyloprim -) 100 mg PO DAILY [facility] Last Admin: 12/02/19 09:53 Dose: 100 mg Documented by: Atorvastatin Calcium (Lipitor -) 80 mg PO [facility] Last Admin: 12/01/19 21:12 Dose: 80 mg Documented by: Carvedilol (Coreg -) 25 mg PO BID [facility] Last Admin: 12/02/19 09:51 Dose: 25 mg Documented by: Docusate Sodium (Colace -) 100 mg PO [facility] Last Admin: 12/01/19 21:12 Dose: 100 mg Documented by: Escitalopram Oxalate (Lexapro -) 10 mg PO DAILY [facility] Last Admin: 12/02/19 09:53 Dose: 10 mg Documented by: Fentanyl (Sublimaze Injection -) 50 mcg IVPUSH [id number] PRN PRN Reason: PAIN-PACU ORDER X 4 DOSES ONLY Hydralazine HCl (Apresoline -) 25 mg PO BID [facility] Last Admin: 12/02/19 09:51 Dose: 25 mg Documented by: Sodium Chloride (1/2 Normal Saline) 1,000 mls @ 50 mls/hr IV ASDIR [facility] Last Admin: 12/02/19 07:49 Dose: Not Given Documented by: Insulin Aspart (Novolog Vial Sliding Scale -) 1 vial SQ [facility]; Protocol Last Admin: 12/02/19 06:12 Dose: Not Given Documented by: Lidocaine (Lidoderm Patch -) 2 patch TP DAILY [facility] Last Admin: 12/02/19 09:53 Dose: 2 patch Documented by: Miscellaneous (Lidoderm Patch Removal) 2 each MC DAILY@2200 [facility] Last Admin: 12/01/19 21:37 Dose: 2 each Documented by: Ondansetron HCl (Zofran Injection) 4 mg IVPUSH Q6H PRN PRN Reason: NAUSEA AND/OR VOMITING Oxycodone HCl (Roxicodone -) 5 mg PO Q6H PRN PRN Reason: PAIN LEVEL 6-10 Last Admin: 12/02/19 09:51 Dose: 5 mg Documented by: Pantoprazole Sodium (Protonix -) 40 mg PO ACBK [facility] Last Admin: 12/02/19 09:53 Dose: 40 mg Documented by: Sodium Zirconium Cyclosilicate (Lokelma) 10 gm PO DAILY [facility] Last Admin: 12/01/19 11:28 Dose: 10 gm Documented by: - Objective Vital Signs: Vital Signs Temperature 98.6 F 12/02/19 09:00 Pulse Rate 81 12/02/19 09:00 Respiratory Rate 22 H 12/02/19 09:00 Blood Pressure 134/64 12/02/19 09:00 O2 Sat by Pulse Oximetry (%) 100 12/01/19 21:00 Constitutional: Yes: No Distress, Calm, Thin Neck: Yes: Supple Cardiovascular: Yes: Regular Rate and Rhythm Respiratory: Yes: Regular, Diminished, On Nasal O2 Gastrointestinal: Yes: Soft, Hypoactive Bowel Sounds Edema: No Labs: CBC, BMP 11/30/19 07:15 12/02/19 07:50 INR, PTT INR 1.13 (0.83-1.09) H 11/29/19 07:58 Assessment/Plan Imaging - Results Chest X-ray: Other (cardiomegaly, , volume loss RLL) X-ray: Other (right femur intertrochanteric fracture) Problem List - Problems (1) CKD (chronic kidney disease) Assessment/Plan: stable, Problems reviewed: Yes Code(s): N18.9 - CHRONIC KIDNEY DISEASE, UNSPECIFIED (2) Diabetes 1.5, managed as type 2 Assessment/Plan: regular insulin coverage start IV D5 1/2 NS at 75 cc if surgery tomorrow Code(s): E10.9 - TYPE 1 DIABETES MELLITUS WITHOUT COMPLICATIONS (3) Closed right hip fracture Assessment/Plan: POD#3 Right Gamma nail Code(s): S72.001A - FRACTURE OF UNSP PART OF NECK OF RIGHT FEMUR, INIT Qualifiers: Encounter type: initial encounter Qualified Code(s): S72.001A - Fracture of unspecified part of neck of right femur, initial encounter for closed fracture (4) Anemia in chronic kidney disease Assessment/Plan: received 1 u pRBC transfusion Code(s): N18.9 - CHRONIC KIDNEY DISEASE, UNSPECIFIED; D63.1 - ANEMIA IN CHRONIC KIDNEY DISEASE Qualifiers: Chronic kidney disease stage: stage 2 (mild) Qualified Code(s): N18.2 - Chronic kidney disease, stage 2 (mild); D63.1 - Anemia in chronic kidney disease (5) Atrial fibrillation Assessment/Plan: chronic Eliquis is still held post-op Code(s): I48.91 - UNSPECIFIED ATRIAL FIBRILLATION Qualifiers: Atrial fibrillation type: paroxysmal Qualified Code(s): I48.0 - Paroxysmal atrial fibrillation (6) CHF (congestive heart failure) Assessment/Plan: gentle hydration Code(s): I50.9 - HEART FAILURE, UNSPECIFIED Qualifiers: Heart failure type: combined systolic and diastolic Heart failure chronicity: chronic Qualified Code(s): I50.42 - Chronic combined systolic (congestive) and diastolic (congestive) heart failure (7) Coronary artery disease Assessment/Plan: Code(s): I25.10 - ATHSCL HEART DISEASE OF [place] CORONARY ARTERY W/O ANG PCTRS Qualifiers: Coronary Disease-Associated Artery/Lesion type: [place] artery [place] vs. transplanted heart: [place] heart Associated angina: without angina Qualified Code(s): I25.10 - Atherosclerotic heart disease of [place] coronary artery without angina pectoris Assessment/Plan 1. POD # 3 post right femur gamma nail insertion 2. Coronary artery disease post percutaneous coronary intervention angina pectoris, clinically stable 3. Diastolic left ventricular dysfunction with clinical class 0 [place] Heart [employer] classification left ventricular failure 4. Persistent atrial fibrillation off chronic anticoagulation therapy with DOAC's post-op 5. Hypertensive vascular disease 6. Diabetes mellitus 7. Acute on chronic kidney disease 8. Anemia and thrombocytopenia PLAN: 1. Pain management as per the primary team 2. Resume Eliquis once hemostasis is achieved/cleared by orthopedic surgery 3. Continue Coreg 25 bid, Hydralazine 25 bid and Lipitor 80 qd 4. Gentle hydration with monitor renal recovery and hyperkalemia improvement 5. 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 Beau Chacon
--- NOTE | 2019-12-02 11:10 | CONSULT ---
Admitting History and Physical - Admission History of Present Illness: 74 yo male who was admitted for right intertrochanteric fracture repair with GAmma nail placement on November 29, 2019, reported to have poor appetite. There is no shortness of breath, chest pain or palpitations. There is no fever Selected Entries 11/29/19 11/29/19 11/29/19 05:46 09:47 10:00 Breakfast NPO NPO Diet Tolerated Refused Lunch Supper 0 Temperature Blood Pressure 11/30/19 11/30/19 11/30/19 06:00 10:00 14:34 Breakfast NPO 50% Diet Tolerated Fair Fair Lunch 50% Supper Temperature Blood Pressure 11/30/19 12/01/19 12/01/19 21:21 02:00 05:55 Breakfast Diet Tolerated Lunch Supper 0 0 0 Temperature 98.4 F 98.4 F Blood Pressure 133/78 144/58 L 12/01/19 12/01/19 12/01/19 09:00 09:13 14:30 Breakfast 0 Diet Tolerated Lunch 25% Supper Temperature 98 F 97.6 F Blood Pressure 112/50 L 119/63 12/01/19 12/01/19 12/01/19 19:22 21:17 21:18 Breakfast Diet Tolerated Well Lunch Supper 50% Temperature 97.7 F Blood Pressure 125/58 L 130/70 12/02/19 12/02/19 05:14 09:00 Breakfast Diet Tolerated Lunch Supper Temperature 98.2 F 98.6 F Blood Pressure 128/70 134/64 Laboratory Tests 11/30/19 07:15 WBC 4.7 Laboratory Tests 11/25/19 13:50 COVID-19 (YUAN) Not detected PO intake reportedly improving, although he did not ccept breakfast today. Denied pain for me but received Oxycodone. Distractible. History Source: Medical Record Limitations to Obtaining History: Clinical Condition - Past Medical History MEAT HOSTESS: Yes: Peripheral Neuropathy Cardiovascular: Yes: AFIB, CAD (prior anterolateral [place] 03/1995 w/ PCI of LAD & ramus, PCI of LAD 05/1996 (with 100% occluded ramus and patent RCA), rotoblator & PCI w/ Xience stent prox LAD & prox/mid Cfx 07/30/16), CHF, Hyperlipdemia, [place] (anterolateral [place] 1994), Other (CHF) Pulmonary: Yes: O2 Dependent, Pneumonia (03/2016), Other (Chronic right pleural effusion S/p VATS procedure) Gastrointestinal: Yes: GERD Renal/: Yes: Renal Inusuff, BPH, Renal Calculi Heme/Onc: Yes: Anemia Psych: Yes: Anxiety, Depression Musculoskeletal: Yes: Osteoarthritis Rheumatology: Yes: Gout Endocrine: Yes: Diabetes Mellitus (with peripheral neuropathy), Other (Hypogonadism, nodular goiter) - Past Surgical History Past Surgical History: Yes: Cataract Removal (bilateral), Hernia Repair (umbillical) - Advance Directives Advance Directives: Yes: Health Care Proxy - Smoking History Smoking history: Former smoker Have you smoked in the past 12 months: No Aproximately how many cigarettes per day: 0 If you are a former smoker, when did you quit?: 1989 - Alcohol/Substance Use Hx Alcohol Use: No History of Substance Use: reports: None - Social History ADL: Independent History of Recent Travel: No History - Admission Reason For Visit: CLOSED FRACTURE OF RT HIP - Diagnostics X-ray: Report Reviewed CT Scan: Report Reviewed - General Mental Status: Alert and Oriented (nows he is in hospital), Awake and Alert, Able to Follow Commands, Forgetful, Vague Attention: Moderate Impairment (recent oxycodone related?) Ability to Follow Directions: Fair Head/Neck Control: Fair - Hearing Hearing: Impaired Hearing Aide: No With Patient: No Speech Evaluation - Communication Primary Language: AMERICAN Communication: Yes: Simple Responses - Speech Production Able to Make Needs Known: Yes: WNL Intelligibility: Yes: WNL - Speech Characteristics Voice Loudness: Normal, Mildly Soft/Quiet Voice Pitch: Yes: Normal Voice Phonatory-based Quality: Yes: Normal Speech Pattern: Normal Speech Clarity: < 100% Nasal Resonance: Normal Articulation: Yes: Precise - Language/Auditory Comprehension Follows: Yes: 1 Stage Simple Commands Observation: Able to respond to yes/no queries: Yes (when attending), Yes/No Confusion: No, Comprehends Conversational Speech: Yes, Benefits from Repetiton: Yes, Benefits from Increased Volume of Speech: Yes - Swallow Evaluation/Bedside Assessment Current Nutritional Intake: Regular, Thin Liquids Oral Secretions: Yes: WFL Dentition: Yes: Adequate Facial Symmetry at Rest: Symmetrical Facial Symmetry on Retraction: Symmetrical Facial Movement: Controlled Sensation: Normal Against Resistance Opening: Normal Against Resistance Closing: Normal Pucker Lips: Normal Smile: Normal Lingual Movement: Normal, Symmetric Lingual Speed of Movement: Normal Lingual Movement Strgth Against Opposition: Normal Lingual Movement Characteristics: Normal Laryngeal Movement: Labored,delay initiation Needs Assistance: Yes Rate of Intake: WFL Bolus Size: Small Labial Seal: WFL Chewing: WFL Oral Prep Time: WFL A-P Transit: WFL Pocketing: None Timing of Swallow: Delayed Coughing/Throat Clear: No Change in Voice: No Recommendations - Speech Evaluation, Impression/Plan Impression: Distracted during assessment, needed repeated cues to track on left and right, possibly related to recent oxycodone dose? Limited appetite today - Dysphagia Impressions/Plan Dysphagia Impressions: Mild Impairment, Ongoing Evaluation *Silent aspiration: cannot be R/O at bedside Dysphagia Treatment Plan: Small Bites, Facilitative Feeding, Safe Rate, 1/2 tsp. at a time, Elevate HOB during feed - Recommendations Diet Consistency: Regular (soft) Liquids: Thin Liquids Supplement: Magic Cup, Ensure Pudding, Nepro
[2019-12-02] MEDS: SODIUM ZIRCONIUM CYCLOSILICATE (LOKELMA) 10 GM PACKET PO SCH (11:46)
[2019-12-02] MEDS ORDERED: SODIUM CHLORIDE 0.45% 1,000 ML IV SCH ×2 (16:33→16:45)
[2019-12-02] MEDS ORDERED: INSULIN (NOVOLOG) ASPART 100 UNITS/ML 10ML VIAL ONE (16:52)
--- NOTE | 2019-12-02 19:31 | PN ---
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, Physician History of Present Illness: Pt seen and examined at bedside. He is awake but distracted easily. He has poor PO intake. Family at bedside. - Current Medication List Current Medications: Active Medications Acetaminophen (Tylenol -) 325 mg PO Q4H PRN PRN Reason: PAIN LEVEL 6-10 Last Admin: 11/29/19 00:58 Dose: 325 mg Documented by: Allopurinol (Zyloprim -) 100 mg PO DAILY [facility] Last Admin: 12/02/19 09:53 Dose: 100 mg Documented by: Atorvastatin Calcium (Lipitor -) 80 mg PO [facility] Last Admin: 12/01/19 21:12 Dose: 80 mg Documented by: Carvedilol (Coreg -) 25 mg PO BID [facility] Last Admin: 12/02/19 09:51 Dose: 25 mg Documented by: Docusate Sodium (Colace -) 100 mg PO [facility] Last Admin: 12/01/19 21:12 Dose: 100 mg Documented by: Escitalopram Oxalate (Lexapro -) 10 mg PO DAILY [facility] Last Admin: 12/02/19 09:53 Dose: 10 mg Documented by: Hydralazine HCl (Apresoline -) 25 mg PO BID [facility] Last Admin: 12/02/19 09:51 Dose: 25 mg Documented by: Sodium Chloride (1/2 Normal Saline) 1,000 mls @ 75 mls/hr IV ASDIR [facility] Insulin Aspart (Novolog Vial Sliding Scale -) 1 vial SQ ACHS [facility]; Protocol Last Admin: 12/02/19 16:55 Dose: 2 unit Documented by: Lidocaine (Lidoderm Patch -) 2 patch TP DAILY [facility] Last Admin: 12/02/19 09:53 Dose: 2 patch Documented by: Miscellaneous (Lidoderm Patch Removal) 2 each MC DAILY@2200 [facility] Last Admin: 12/01/19 21:37 Dose: 2 each Documented by: Ondansetron HCl (Zofran Injection) 4 mg IVPUSH Q6H PRN PRN Reason: NAUSEA AND/OR VOMITING Oxycodone HCl (Roxicodone -) 5 mg PO Q6H PRN PRN Reason: PAIN LEVEL 6-10 Last Admin: 12/02/19 09:51 Dose: 5 mg Documented by: Pantoprazole Sodium (Protonix -) 40 mg PO ACBK [facility] Last Admin: 07/02/20 09:53 Dose: 40 mg Documented by: Sodium Zirconium Cyclosilicate (Lokelma) 10 gm PO DAILY [facility] Last Admin: 12/02/19 11:46 Dose: 10 gm Documented by: - Objective Vital Signs: Vital Signs Temperature 98.8 F 12/02/19 19:13 Pulse Rate 81 12/02/19 19:13 Respiratory Rate 20 12/02/19 13:45 Blood Pressure 114/53 L 12/02/19 19:13 O2 Sat by Pulse Oximetry (%) 97 12/02/19 09:00 Constitutional: Yes: Calm Eyes: Yes: Conjunctiva Clear HENT: Yes: Atraumatic Cardiovascular: Yes: S1, S2 Respiratory: Yes: CTA Bilaterally Gastrointestinal: Yes: Soft Genitourinary: Yes: WNL Musculoskeletal: Yes: Muscle Weakness Edema: No Neurological: Yes: Oriented Labs: CBC, BMP 11/30/19 07:15 12/02/19 07:50 INR, PTT INR 1.13 (0.83-1.09) H 11/29/19 07:58 Problem List - Problems (1) CKD (chronic kidney disease) Code(s): N18.9 - CHRONIC KIDNEY DISEASE, UNSPECIFIED Qualifiers: Chronic kidney disease stage: stage 3 (moderate) Qualified Code(s): N18.3 - Chronic kidney disease, stage 3 (moderate) (2) Hyperkalemia Code(s): E87.5 - HYPERKALEMIA (3) Acute kidney failure Code(s): N17.9 - ACUTE KIDNEY FAILURE, UNSPECIFIED Qualifiers: Acute renal failure type: with other specified pathological lesion Qualified Code(s): N17.8 - Other acute kidney failure (4) CHF (congestive heart failure) Code(s): I50.9 - HEART FAILURE, UNSPECIFIED Qualifiers: Heart failure type: combined systolic and diastolic Heart failure chronicity: chronic Qualified Code(s): I50.42 - Chronic combined systolic (congestive) and diastolic (congestive) heart failure (5) HTN (hypertension) Code(s): I10 - ESSENTIAL (PRIMARY) HYPERTENSION Qualifiers: Hypertension type: essential hypertension Qualified Code(s): I10 - Essential (primary) hypertension Assessment/Plan Current Medications Generic Name Dose Route Start Last Admin Trade Name Freq PRN Reason Stop Dose Admin Acetaminophen 325 mg 11/25/19 22:28 11/29/19 00:58 Tylenol - PO 325 mg Q4H PRN Administration PAIN LEVEL 6-10 Allopurinol 100 mg 11/26/19 10:00 12/02/19 09:53 Zyloprim - PO 100 mg DAILY [facility] Administration Atorvastatin Calcium 80 mg 11/26/19 22:00 12/01/19 21:12 Lipitor - PO 80 mg HS [facility] Administration Carvedilol 25 mg 11/25/19 22:45 12/02/19 09:51 Coreg - PO 25 mg BID [facility] Administration Docusate Sodium 100 mg 11/26/19 22:00 12/01/19 21:12 Colace - PO 100 mg HS [facility] Administration Escitalopram Oxalate 10 mg 11/26/19 10:00 12/02/19 09:53 Lexapro - PO 10 mg DAILY [facility] Administration Hydralazine HCl 25 mg 11/28/19 11:18 12/02/19 09:51 Apresoline - PO 25 mg BID [facility] Administration Sodium Chloride 1,000 mls @ 75 mls/hr 12/02/19 18:46 1/2 Normal Saline IV ASDIR [facility] Insulin Aspart 1 vial 11/26/19 07:00 12/02/19 16:55 Novolog Vial Sliding Scale - SQ 2 unit ACHS [facility] Administration Protocol Lidocaine 2 patch 12/01/19 10:00 12/02/19 09:53 Lidoderm Patch - TP 2 patch DAILY [facility] Administration Miscellaneous 2 each 11/28/19 11:20 12/01/19 21:37 Lidoderm Patch Removal MC 2 each DAILY@2200 [facility] Administration Ondansetron HCl 4 mg 11/29/19 14:08 Zofran Injection IVPUSH Q6H PRN NAUSEA AND/OR VOMITING Oxycodone HCl 5 mg 11/30/19 19:18 12/02/19 09:51 Roxicodone - PO 5 mg Q6H PRN Administration PAIN LEVEL 6-10 Pantoprazole Sodium 40 mg 12/02/19 07:15 12/02/19 09:53 Protonix - PO 40 mg ACBK [facility] Administration Sodium Zirconium Cyclosilicate 10 gm 11/29/19 10:00 12/02/19 11:46 Lokelma PO 10 gm DAILY [facility] Administration Impression 1. CKD with acute component 2. hx CHF 3. CAD 4. DM 5. HTN 6. hyperlipidemia 7. BPH 8. pleural effusions 9. SPIKE 10. hyperkalemia 11. right femur fracture Plan - would cont fluids as he is not eating much - repeat labs in am - monitor potassium - cardio input appreciated - discussed with - pain control - avoid nsaids Dr Menezes
[2019-12-02] MEDS: ATORVASTATIN CA 80 MG TABLET (FP) PO SCH (21:52)
[2019-12-02] MEDS: DOCUSATE SODIUM 100 MG CAPSULE (FP) PO SCH (21:53)
[2019-12-02] MEDS: LIDOCAINE PATCH REMOVAL MC SCH (21:53)
[2019-12-03] MEDS: PANTOPRAZOLE 40 MG TABLET PO SCH (06:11)
[2019-12-03] MEDS: INSULIN SLIDING SCALE (NOVOLOG) 1 VIAL SQ SCH ×4 (06:19→22:06)
[2019-12-03] MEDS ORDERED: PT OWN MED DRAWER 7, Y5N ONE (08:01)
[2019-12-03 08:22] LABS: BASO % 0.2 % (0-2.0); EOS % 1.4 % (0-4.5); HEMATOCRIT 21.9 % (35.4-49); HEMOGLOBIN 7.2 GM/dL (11.7-16.9); LYMPH % 9.7 % (8-40); MCHC 33.1 g/dl (32.0-35.9); MEAN CELL VOLUME 96.6 fl (80-96); MEAN PLT VOLUME 9.2 fl (7.5-11.1); MONO % 7.3 % (3.8-10.2); NEUT % 81.4 % (42.8-82.8); PLATELET COUNT 88 K/MM3 (134-434); RBC 2.26 M/mm3 (4.00-5.60); RDW 17.4 % (11.9-15.9); WHITE BLOOD COUNT 4.8 K/mm3 (4.0-10.0)
[2019-12-03 08:38] LABS: ALBUMIN 2.2 g/dl (3.4-5.0); ALK PHOS 71 U/L (45-117); ANION GAP 7 MMOL/L (8-16); BILIRUBIN,TOTAL 0.6 mg/dL (0.2-1); CALCIUM 7.8 mg/dL (8.5-10.1); CHLORIDE 106 mmol/L (98-107); CO2 24 mmol/L (21-32); CREATININE 3.4 mg/dL (0.55-1.3); GLUCOSE,RANDOM 146 mg/dL (74-106); POTASSIUM 4.7 mmol/L (3.5-5.1); SGOT/AST 7 U/L (15-37); SODIUM 136 mmol/L (136-145); TOT PROT 5.8 g/dl (6.4-8.2)
[2019-12-03 08:41] LABS: SGPT/ALT < 6 U/L (13-61)
[2019-12-03 09:23] LABS: BLOOD UREA NITROGEN 113.6 mg/dL (7-18)
[2019-12-03] MEDS: CARVEDILOL 25 MG TABLET (FP) PO SCH ×2 (09:35→22:03)
[2019-12-03] MEDS: LIDOCAINE 5% TOPICAL PATCH TP SCH (09:35)
[2019-12-03] MEDS: hydrALAZINE HCL 25 MG TABLET (FP) PO SCH ×2 (09:35→22:03)
[2019-12-03] MEDS: ALLOPURINOL 100 MG TABLET (FP) PO SCH (09:35)
[2019-12-03] MEDS: ESCITALOPRAM OXALATE 10 MG TABLET PO SCH (09:35)
--- NOTE | 2019-12-03 11:10 | PN ---
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
[2019-12-03] MEDS: SODIUM ZIRCONIUM CYCLOSILICATE (LOKELMA) 10 GM PACKET PO SCH (11:13)
[2019-12-03 13:40] LABS: ANISOCYTOSIS 1+; MACROCYTOSIS 1+; OVALOCYTE 1+; PLATELET ESTIMATE DECREASED
--- NOTE | 2019-12-03 14:47 | PN ---
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, Physician Chief Complaint: Events noted Not in distress History of Present Illness: Patient was seen and examined. Awake and alert. Chart was reviewed Denies chest pain, SOB or palpitations - Current Medication List Current Medications: Active Medications Acetaminophen (Tylenol -) 325 mg PO Q4H PRN PRN Reason: PAIN LEVEL 6-10 Last Admin: 11/29/19 00:58 Dose: 325 mg Documented by: Allopurinol (Zyloprim -) 100 mg PO DAILY [facility] Last Admin: 12/03/19 09:35 Dose: 100 mg Documented by: Atorvastatin Calcium (Lipitor -) 80 mg PO [facility] Last Admin: 12/02/19 21:52 Dose: 80 mg Documented by: Carvedilol (Coreg -) 25 mg PO BID [facility] Last Admin: 12/03/19 09:35 Dose: 25 mg Documented by: Docusate Sodium (Colace -) 100 mg PO [facility] Last Admin: 12/02/19 21:53 Dose: 100 mg Documented by: Escitalopram Oxalate (Lexapro -) 10 mg PO DAILY [facility] Last Admin: 12/03/19 09:35 Dose: 10 mg Documented by: Hydralazine HCl (Apresoline -) 25 mg PO BID [facility] Last Admin: 12/03/19 09:35 Dose: 25 mg Documented by: Sodium Chloride (1/2 Normal Saline) 1,000 mls @ 75 mls/hr IV ASDIR [facility] Last Admin: 12/02/19 21:51 Dose: 75 mls/hr Documented by: Insulin Aspart (Novolog Vial Sliding Scale -) 1 vial SQ [facility]; Protocol Last Admin: 12/03/19 11:13 Dose: Not Given Documented by: Lidocaine (Lidoderm Patch -) 2 patch TP DAILY [facility] Last Admin: 12/03/19 09:35 Dose: 2 patch Documented by: Miscellaneous (Lidoderm Patch Removal) 2 each MC DAILY@2200 [facility] Last Admin: 12/02/19 21:53 Dose: 2 each Documented by: Ondansetron HCl (Zofran Injection) 4 mg IVPUSH Q6H PRN PRN Reason: NAUSEA AND/OR VOMITING Oxycodone HCl (Roxicodone -) 5 mg PO Q6H PRN PRN Reason: PAIN LEVEL 6-10 Last Admin: 12/02/19 09:51 Dose: 5 mg Documented by: Pantoprazole Sodium (Protonix -) 40 mg PO ACBK [facility] Last Admin: 12/03/19 06:11 Dose: 40 mg Documented by: Sodium Zirconium Cyclosilicate (Lokelma) 10 gm PO DAILY [facility] Last Admin: 12/03/19 11:13 Dose: 10 gm Documented by: - Objective Vital Signs: Vital Signs Temperature 98.4 F 12/03/19 13:47 Pulse Rate 77 12/03/19 13:47 Respiratory Rate 20 12/03/19 13:47 Blood Pressure 136/60 12/03/19 13:47 O2 Sat by Pulse Oximetry (%) 98 12/03/19 07:55 Neck: Yes: Supple Cardiovascular: Yes: Regular Rate and Rhythm, S1, S2 Respiratory: Yes: CTA Bilaterally Gastrointestinal: Yes: Normal Bowel Sounds, Soft. No: Tenderness Edema: No Labs: CBC, BMP 12/03/19 07:40 12/03/19 07:40 Problem List - Problems (1) Closed right hip fracture Code(s): S72.001A - FRACTURE OF UNSP PART OF NECK OF RIGHT FEMUR, INIT Qualifiers: Encounter type: initial encounter Qualified Code(s): S72.001A - Fracture of unspecified part of neck of right femur, initial encounter for closed fracture (2) Acute on chronic systolic and diastolic heart failure, NYHA class 2 Code(s): I50.43 - ACUTE ON CHRONIC COMBINED SYSTOLIC AND DIASTOLIC HRT FAIL (3) Grwhn-fn-cuyquqd kidney injury Code(s): N17.9 - ACUTE KIDNEY FAILURE, UNSPECIFIED; N18.9 - CHRONIC KIDNEY DISEASE, UNSPECIFIED Qualifiers: Chronic kidney disease stage: stage 4 (severe) (4) Anemia Code(s): D64.9 - ANEMIA, UNSPECIFIED (5) Atrial fibrillation Code(s): I48.91 - UNSPECIFIED ATRIAL FIBRILLATION Qualifiers: Atrial fibrillation type: paroxysmal Qualified Code(s): I48.0 - Paroxysmal atrial fibrillation (6) Diabetes mellitus Code(s): E11.9 - TYPE 2 DIABETES MELLITUS WITHOUT COMPLICATIONS (7) Diastolic dysfunction without heart failure Code(s): I51.89 - OTHER ILL-DEFINED HEART DISEASES (8) S/P coronary artery stent placement Code(s): Z95.5 - PRESENCE OF CORONARY ANGIOPLASTY IMPLANT AND GRAFT (9) CAD (coronary artery disease) Code(s): I25.10 - ATHSCL HEART DISEASE OF [place] CORONARY ARTERY W/O ANG PCTRS Qualifiers: Coronary Disease-Associated Artery/Lesion type: [place] artery [place] vs. t ransplanted heart: [place] heart Associated angina: without angina Qualified Code(s): I25.10 - Atherosclerotic heart disease of [place] coronary artery without angina pectoris (10) HTN (hypertension) Code(s): I10 - ESSENTIAL (PRIMARY) HYPERTENSION Qualifiers: Hypertension type: essential hypertension Qualified Code(s): I10 - [place] (primary) hypertension (11) Hyperlipidemia Code(s): E78.5 - HYPERLIPIDEMIA, UNSPECIFIED Qualifiers: Hyperlipidemia type: pure hypercholesterolemia Qualified Code(s): E78.00 - Pure hypercholesterolemia, unspecified; E78.0 - Pure hypercholesterolemia Assessment/Plan 1. POD # 4 post right femur gamma nail insertion 2. Coronary artery disease post percutaneous coronary intervention angina pectoris 3. Diastolic left ventricular dysfunction with clinical class 0 [place] [employer] classification left ventricular failure 4. Persistent atrial fibrillation off chronic anticoagulation therapy with DOA post-op 5. Hypertensive vascular disease 6. Diabetes mellitus 7. Acute on chronic kidney disease 8. Anemia and thrombocytopenia PLAN: 1. Pain management as per the primary team 2. Resume Eliquis once hemostasis is achieved/cleared by orthopedic surgery 3. Continue Coreg 25 mg BID, Hydralazine 25 mg BID and Lipitor 80 mg QHS 4. Gentle hydration and monitor renal function and electrolytes 5. PT Patient is to follow-up with his cardiologis Dr. Beau Chacon upon discharge Dannie Coon MD
--- NOTE | 2019-12-03 15:22 | PN ---
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, Physician Chief Complaint: patient is day 3 post op after right hip fracture repair with gamma nail placement hematuria present since yesterday with elevation of the BUN/creat and with low platelet count, etiology is unclear and there is no clumping Rt helga US read by me shows right hydronephrosis, radiology official reading is pending receiving blood - Current Medication List Current Medications: Active Medications Acetaminophen (Tylenol -) 325 mg PO Q4H PRN PRN Reason: PAIN LEVEL 6-10 Last Admin: 11/29/19 00:58 Dose: 325 mg Documented by: Allopurinol (Zyloprim -) 100 mg PO DAILY [facility] Last Admin: 12/03/19 09:35 Dose: 100 mg Documented by: Atorvastatin Calcium (Lipitor -) 80 mg PO [facility] Last Admin: 12/02/19 21:52 Dose: 80 mg Documented by: Carvedilol (Coreg -) 25 mg PO BID [facility] Last Admin: 12/03/19 09:35 Dose: 25 mg Documented by: Docusate Sodium (Colace -) 100 mg PO [facility] Last Admin: 12/02/19 21:53 Dose: 100 mg Documented by: Escitalopram Oxalate (Lexapro -) 10 mg PO DAILY [facility] Last Admin: 12/03/19 09:35 Dose: 10 mg Documented by: Hydralazine HCl (Apresoline -) 25 mg PO BID [facility] Last Admin: 12/03/19 09:35 Dose: 25 mg Documented by: Sodium Chloride (1/2 Normal Saline) 1,000 mls @ 75 mls/hr IV ASDIR [facility]PLAC[facility] Last Admin: 12/02/19 21:51 Dose: 75 mls/hr Documented by: Insulin Aspart (Novolog Vial Sliding Scale -) 1 vial SQ [facility]PLAC[facility]; Protocol Last Admin: 12/03/19 11:13 Dose: Not Given Documented by: Lidocaine (Lidoderm Patch -) 2 patch TP DAILY [facility] Last Admin: 12/03/19 09:35 Dose: 2 patch Documented by: Miscellaneous (Lidoderm Patch Removal) 2 each MC DAILY@2200 [facility] Last Admin: 12/02/19 21:53 Dose: 2 each Documented by: Ondansetron HCl (Zofran Injection) 4 mg IVPUSH Q6H PRN PRN Reason: NAUSEA AND/OR VOMITING Oxycodone HCl (Roxicodone -) 5 mg PO Q6H PRN PRN Reason: PAIN LEVEL 6-10 Last Admin: 12/02/19 09:51 Dose: 5 mg Documented by: Pantoprazole Sodium (Protonix -) 40 mg PO ACBK [facility] Last Admin: 12/03/19 06:11 Dose: 40 mg Documented by: Sodium Zirconium Cyclosilicate (Lokelma) 10 gm PO DAILY [facility] Last Admin: 12/03/19 11:13 Dose: 10 gm Documented by: - Objective Vital Signs: Vital Signs Temperature 98.4 F 12/03/19 13:47 Pulse Rate 77 12/03/19 13:47 Respiratory Rate 20 12/03/19 13:47 Blood Pressure 136/60 12/03/19 13:47 O2 Sat by Pulse Oximetry (%) 98 12/03/19 07:55 Labs: CBC, BMP 12/03/19 07:40 12/03/19 07:40 INR, PTT INR 1.13 (0.83-1.09) H 11/29/19 07:58 Problem List - Problems (1) Hematuria Assessment/Plan: PSA in am transfuse 2 u PRBC awaiting for urine cultures Code(s): R31.9 - HEMATURIA, UNSPECIFIED (2) Thrombocytopenia Assessment/Plan: monitor platelet count Code(s): D69.6 - THROMBOCYTOPENIA, UNSPECIFIED (3) Closed right hip fracture Code(s): S72.001A - FRACTURE OF UNSP PART OF NECK OF RIGHT FEMUR, INIT Qualifiers: Encounter type: initial encounter Qualified Code(s): S72.001A - Fracture of unspecified part of neck of right femur, initial encounter for closed fracture (4) Coronary artery disease Code(s): I25.10 - ATHSCL HEART DISEASE OF [place] CORONARY ARTERY W/O ANG PCTRS Qualifiers: Coronary Disease-Associated Artery/Lesion type: [place] artery [place] vs. transplanted heart: [place] heart Associated angina: without angina Qualified Code(s): I25.10 - Atherosclerotic heart disease of [place] coronary artery without angina pectoris (5) CHF (congestive heart failure) Code(s): I50.9 - HEART FAILURE, UNSPECIFIED Qualifiers: Heart failure type: combined systolic and diastolic Heart failure chronicity: chronic Qualified Code(s): I50.42 - Chronic combined systolic (congestive) and diastolic (congestive) heart failure (6) CKD (chronic kidney disease) Code(s): N18.9 - CHRONIC KIDNEY DISEASE, UNSPECIFIED Qualifiers: Chronic kidney disease stage: stage 3 (moderate) Qualified Code(s): N18.3 - Chronic kidney disease, stage 3 (moderate) (7) Diabetes 1.5, managed as type 2 Code(s): E10.9 - TYPE 1 DIABETES MELLITUS WITHOUT COMPLICATIONS (8) Anemia in chronic kidney disease Code(s): N18.9 - CHRONIC KIDNEY DISEASE, UNSPECIFIED; D63.1 - ANEMIA IN CHRONIC KIDNEY DISEASE Qualifiers: Chronic kidney disease stage: stage 2 (mild) Qualified Code(s): N18.2 - Chronic kidney disease, stage 2 (mild); D63.1 - Anemia in chronic kidney disease (9) Atrial fibrillation Code(s): I48.91 - UNSPECIFIED ATRIAL FIBRILLATION Qualifiers: Atrial fibrillation type: paroxysmal Qualified Code(s): I48.0 - Paroxysmal atrial fibrillation (10) Thrombocytopenia Code(s): D69.6 - THROMBOCYTOPENIA, UNSPECIFIED
--- NOTE | 2019-12-03 15:52 | PN ---
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, Physician History of Present Illness: Pt seen and examined at bedside. He still has poor po intake. Urine is clearer today. - Current Medication List Current Medications: Active Medications Acetaminophen (Tylenol -) 325 mg PO Q4H PRN PRN Reason: PAIN LEVEL 6-10 Last Admin: 11/29/19 00:58 Dose: 325 mg Documented by: Allopurinol (Zyloprim -) 100 mg PO DAILY [facility] Last Admin: 12/03/19 09:35 Dose: 100 mg Documented by: Atorvastatin Calcium (Lipitor -) 80 mg PO [facility] Last Admin: 12/02/19 21:52 Dose: 80 mg Documented by: Carvedilol (Coreg -) 25 mg PO BID [facility] Last Admin: 12/03/19 09:35 Dose: 25 mg Documented by: Docusate Sodium (Colace -) 100 mg PO [facility] Last Admin: 12/02/19 21:53 Dose: 100 mg Documented by: Escitalopram Oxalate (Lexapro -) 10 mg PO DAILY [facility] Last Admin: 12/03/19 09:35 Dose: 10 mg Documented by: Hydralazine HCl (Apresoline -) 25 mg PO BID [facility] Last Admin: 12/03/19 09:35 Dose: 25 mg Documented by: Sodium Chloride (1/2 Normal Saline) 1,000 mls @ 75 mls/hr IV ASDIR [facility] Last Admin: 12/02/19 21:51 Dose: 75 mls/hr Documented by: Insulin Aspart (Novolog Vial Sliding Scale -) 1 vial SQ [facility]; Protocol Last Admin: 12/03/19 11:13 Dose: Not Given Documented by: Lidocaine (Lidoderm Patch -) 2 patch TP DAILY [facility] Last Admin: 12/03/19 09:35 Dose: 2 patch Documented by: Miscellaneous (Lidoderm Patch Removal) 2 each MC DAILY@2200 [facility] Last Admin: 12/02/19 21:53 Dose: 2 each Documented by: Ondansetron HCl (Zofran Injection) 4 mg IVPUSH Q6H PRN PRN Reason: NAUSEA AND/OR VOMITING Oxycodone HCl (Roxicodone -) 5 mg PO Q6H PRN PRN Reason: PAIN LEVEL 6-10 Last Admin: 12/02/19 09:51 Dose: 5 mg Documented by: Pantoprazole Sodium (Protonix -) 40 mg PO ACBK [facility] Last Admin: 12/03/19 06:11 Dose: 40 mg Documented by: Sodium Zirconium Cyclosilicate (Lokelma) 10 gm PO DAILY [facility] Last Admin: 12/03/19 11:13 Dose: 10 gm Documented by: - Objective Vital Signs: Vital Signs Temperature 98.4 F 12/03/19 13:47 Pulse Rate 77 12/03/19 13:47 Respiratory Rate 20 12/03/19 13:47 Blood Pressure 136/60 12/03/19 13:47 O2 Sat by Pulse Oximetry (%) 98 12/03/19 07:55 Constitutional: Yes: Calm Eyes: Yes: Conjunctiva Clear HENT: Yes: Atraumatic Neck: Yes: Supple Cardiovascular: Yes: S1, S2 Respiratory: Yes: CTA Bilaterally Gastrointestinal: Yes: Soft Genitourinary: Yes: WNL Edema: No Neurological: Yes: Oriented Labs: CBC, BMP 12/03/19 07:40 12/03/19 07:40 INR, PTT INR 1.13 (0.83-1.09) H 11/29/19 07:58 Problem List - Problems (1) CKD (chronic kidney disease) Code(s): N18.9 - CHRONIC KIDNEY DISEASE, UNSPECIFIED Qualifiers: Chronic kidney disease stage: stage 3 (moderate) Qualified Code(s): N18.3 - Chronic kidney disease, stage 3 (moderate) (2) Hyperkalemia Code(s): E87.5 - HYPERKALEMIA (3) Acute kidney failure Code(s): N17.9 - ACUTE KIDNEY FAILURE, UNSPECIFIED Qualifiers: Acute renal failure type: with other specified pathological lesion Qualified Code(s): N17.8 - Other acute kidney failure (4) CHF (congestive heart failure) Code(s): I50.9 - HEART FAILURE, UNSPECIFIED Qualifiers: Heart failure type: combined systolic and diastolic Heart failure chronicity: chronic Qualified Code(s): I50.42 - Chronic combined systolic (congestive) and diastolic (congestive) heart failure (5) HTN (hypertension) Code(s): I10 - ESSENTIAL (PRIMARY) HYPERTENSION Qualifiers: Hypertension type: essential hypertension Qualified Code(s): I10 - Essential (primary) hypertension Assessment/Plan Current Medications Generic Name Dose Route Start Last Admin Trade Name Freq PRN Reason Stop Dose Admin Acetaminophen 325 mg 11/25/19 22:28 11/29/19 00:58 Tylenol - PO 325 mg Q4H PRN Administration PAIN LEVEL 6-10 Allopurinol 100 mg 11/26/19 10:00 12/03/19 09:35 Zyloprim - PO 100 mg DAILY [facility]ARY Administration Atorvastatin Calcium 80 mg 11/26/19 22:00 12/02/19 21:52 Lipitor - PO 80 mg HS MARY Administration Carvedilol 25 mg 11/25/19 22:45 12/03/19 09:35 Coreg - PO 25 mg BID [facility]ARY Administration Docusate Sodium 100 mg 11/26/19 22:00 12/02/19 21:53 Colace - PO 100 mg HS MARY Administration Escitalopram Oxalate 10 mg 11/26/19 10:00 12/03/19 09:35 Lexapro - PO 10 mg DAILY [facility] Administration Hydralazine HCl 25 mg 11/28/19 11:18 12/03/19 09:35 Apresoline - PO 25 mg BID [facility]ARY Administration Sodium Chloride 1,000 mls @ 75 mls/hr 12/02/19 18:46 12/02/19 21:51 1/2 Normal Saline IV 75 mls/hr ASDIR MARY Administration Insulin Aspart 1 vial 11/26/19 07:00 12/03/19 11:13 Novolog Vial Sliding Scale - SQ Not Given ACHS [facility] Protocol Lidocaine 2 patch 12/01/19 10:00 12/03/19 09:35 Lidoderm Patch - TP 2 patch DAILY [facility] Administration Miscellaneous 2 each 11/28/19 11:20 12/02/19 21:53 Lidoderm Patch Removal MC 2 each DAILY@2200 [facility]ARY Administration Ondansetron HCl 4 mg 11/29/19 14:08 Zofran Injection IVPUSH Q6H PRN NAUSEA AND/OR VOMITING Oxycodone HCl 5 mg 11/30/19 19:18 12/02/19 09:51 Roxicodone - PO 5 mg Q6H PRN Administration PAIN LEVEL 6-10 Pantoprazole Sodium 40 mg 12/02/19 07:15 12/03/19 06:11 Protonix - PO 40 mg ACBK [facility]ARY Administration Sodium Zirconium Cyclosilicate 10 gm 11/29/19 10:00 12/03/19 11:13 Lokelma PO 10 gm DAILY [facility]ARY Administration Impression 1. CKD with acute component 2. hx CHF 3. CAD 4. DM 5. HTN 6. hyperlipidemia 7. BPH 8. pleural effusions 9. SPIKE 10. hyperkalemia 11. right femur fracture Plan - repeat labs in am - cont with fluids - encourage po intake - pain control - avoid nsaids - urine is clearer Dr Menezes
[2019-12-03] MEDS ORDERED: INSULIN (NOVOLOG) ASPART 100 UNITS/ML 10ML VIAL ONE (16:47)
[2019-12-03] MEDS: SODIUM CHLORIDE 0.45% 1,000 ML IV SCH (18:46)
[2019-12-03 21:04] LABS: BASO % 0.2 % (0-2.0); EOS % 0.8 % (0-4.5); HEMATOCRIT 28.7 % (35.4-49); HEMOGLOBIN 9.6 GM/dL (11.7-16.9); LYMPH % 10.9 % (8-40); MCH 31.7 pg (25.7-33.7); MCHC 33.5 g/dl (32.0-35.9); MEAN CELL VOLUME 94.7 fl (80-96); MEAN PLT VOLUME 9.6 fl (7.5-11.1); MONO % 7.5 % (3.8-10.2); NEUT % 80.6 % (42.8-82.8); PLATELET COUNT 98 K/MM3 (134-434); RBC 3.03 M/mm3 (4.00-5.60); RDW 17.2 % (11.9-15.9); WHITE BLOOD COUNT 5.3 K/mm3 (4.0-10.0)
[2019-12-03] MEDS: ATORVASTATIN CA 80 MG TABLET (FP) PO SCH (22:03)
[2019-12-03] MEDS: LIDOCAINE PATCH REMOVAL MC SCH (22:03)
[2019-12-03] MEDS: DOCUSATE SODIUM 100 MG CAPSULE (FP) PO SCH (22:03)
[2019-12-04] MEDS: PANTOPRAZOLE 40 MG TABLET PO SCH (06:12)
[2019-12-04] MEDS: INSULIN SLIDING SCALE (NOVOLOG) 1 VIAL SQ SCH ×4 (06:16→22:03)
[2019-12-04 09:21] LABS: BASO % 0.3 % (0-2.0); EOS % 0.7 % (0-4.5); HEMATOCRIT 30.3 % (35.4-49); HEMOGLOBIN 10.1 GM/dL (11.7-16.9); LYMPH % 8.4 % (8-40); MCH 30.9 pg (25.7-33.7); MCHC 33.4 g/dl (32.0-35.9); MEAN CELL VOLUME 92.6 fl (80-96); MEAN PLT VOLUME 9.2 fl (7.5-11.1); MONO % 7.5 % (3.8-10.2); NEUT % 83.1 % (42.8-82.8); PLATELET COUNT 98 K/MM3 (134-434); RBC 3.27 M/mm3 (4.00-5.60); RDW 17.4 % (11.9-15.9); WHITE BLOOD COUNT 5.6 K/mm3 (4.0-10.0)
[2019-12-04 09:53] LABS: CHLORIDE 106 mmol/L (98-107); POTASSIUM 4.9 mmol/L (3.5-5.1); SODIUM 138 mmol/L (136-145)
[2019-12-04 10:00] LABS: ALBUMIN 2.2 g/dl (3.4-5.0); ALK PHOS 72 U/L (45-117); ANION GAP 14 MMOL/L (8-16); BILIRUBIN,TOTAL 1.4 mg/dL (0.2-1); CALCIUM 8.1 mg/dL (8.5-10.1); CO2 18 mmol/L (21-32); CREATININE 3.1 mg/dL (0.55-1.3); GLUCOSE,RANDOM 155 mg/dL (74-106); SGOT/AST 10 U/L (15-37); SGPT/ALT < 6 U/L (13-61); TOT PROT 5.9 g/dl (6.4-8.2)
[2019-12-04] MEDS: CARVEDILOL 25 MG TABLET (FP) PO SCH ×2 (10:03→22:02)
[2019-12-04] MEDS: ESCITALOPRAM OXALATE 10 MG TABLET PO SCH (10:03)
[2019-12-04] MEDS: ALLOPURINOL 100 MG TABLET (FP) PO SCH (10:03)
[2019-12-04] MEDS: hydrALAZINE HCL 25 MG TABLET (FP) PO SCH ×2 (10:03→22:03)
[2019-12-04] MEDS: LIDOCAINE 5% TOPICAL PATCH TP SCH (10:04)
[2019-12-04] MEDS: SODIUM ZIRCONIUM CYCLOSILICATE (LOKELMA) 10 GM PACKET PO SCH (10:04)
[2019-12-04 10:06] LABS: BLOOD UREA NITROGEN 111.2 mg/dL (7-18)
[2019-12-04] MEDS ORDERED: INSULIN (NOVOLOG) ASPART 100 UNITS/ML 10ML VIAL ONE (11:18)
--- NOTE | 2019-12-04 14:18 | PN ---
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, Physician Chief Complaint: Events noted No events overnight History of Present Illness: Patient was seen and examined. Awake and alert. Chart was reviewed Denies chest pain, SOB or palpitations - Current Medication List Current Medications: Active Medications Acetaminophen (Tylenol -) 325 mg PO Q4H PRN PRN Reason: PAIN LEVEL 6-10 Last Admin: 11/29/19 00:58 Dose: 325 mg Documented by: Allopurinol (Zyloprim -) 100 mg PO DAILY [facility] Last Admin: 12/04/19 10:03 Dose: 100 mg Documented by: Atorvastatin Calcium (Lipitor -) 80 mg PO [facility] Last Admin: 12/03/19 22:03 Dose: 80 mg Documented by: Carvedilol (Coreg -) 25 mg PO BID [facility] Last Admin: 12/04/19 10:03 Dose: 25 mg Documented by: Docusate Sodium (Colace -) 100 mg PO [facility] Last Admin: 12/03/19 22:03 Dose: 100 mg Documented by: Escitalopram Oxalate (Lexapro -) 10 mg PO DAILY [facility] Last Admin: 12/04/19 10:03 Dose: 10 mg Documented by: Hydralazine HCl (Apresoline -) 25 mg PO BID [facility] Last Admin: 12/04/19 10:03 Dose: 25 mg Documented by: Sodium Chloride (1/2 Normal Saline) 1,000 mls @ 75 mls/hr IV ASDIR [facility] Last Admin: 12/03/19 18:46 Dose: Not Given Documented by: Insulin Aspart (Novolog Vial Sliding Scale -) [address] [facility]; Protocol Last Admin: 12/04/19 11:20 Dose: 2 units Documented by: Lidocaine (Lidoderm Patch -) 2 patch TP DAILY [facility] Last Admin: 12/04/19 10:04 Dose: 2 patch Documented by: Miscellaneous (Lidoderm Patch Removal) 2 each MC DAILY@2200 [facility] Last Admin: 12/03/19 22:03 Dose: 2 each Documented by: Ondansetron HCl (Zofran Injection) 4 mg IVPUSH Q6H PRN PRN Reason: NAUSEA AND/OR VOMITING Pantoprazole Sodium (Protonix -) 40 mg PO ACBK [facility] Last Admin: 12/04/19 06:12 Dose: 40 mg Documented by: Sodium Zirconium Cyclosilicate (Lokelma) 10 gm PO DAILY [facility] Last Admin: 12/04/19 10:04 Dose: 10 gm Documented by: - Objective Vital Signs: Vital Signs Temperature 97.6 F 12/04/19 13:35 Pulse Rate 75 12/04/19 13:35 Respiratory Rate 20 12/04/19 13:35 Blood Pressure 135/70 12/04/19 13:35 O2 Sat by Pulse Oximetry (%) 98 12/04/19 09:00 Neck: Yes: Supple Cardiovascular: Yes: Regular Rate and Rhythm, S1, S2 Respiratory: Yes: CTA Bilaterally Gastrointestinal: Yes: Normal Bowel Sounds, Soft. No: Tenderness Edema: No Labs: CBC, BMP 12/04/19 08:45 12/04/19 08:45 Problem List - Problems (1) Closed right hip fracture Code(s): S72.001A - FRACTURE OF UNSP PART OF NECK OF RIGHT FEMUR, INIT Qualifiers: Encounter type: initial encounter Qualified Code(s): S72.001A - Fracture of unspecified part of neck of right femur, initial encounter for closed fracture (2) Acute on chronic systolic and diastolic heart failure, NYHA class 2 Code(s): I50.43 - ACUTE ON CHRONIC COMBINED SYSTOLIC AND DIASTOLIC HRT FAIL (3) [place]-wa-utsqrme kidney injury Code(s): N17.9 - ACUTE KIDNEY FAILURE, UNSPECIFIED; N18.9 - CHRONIC KIDNEY DISEASE, UNSPECIFIED Qualifiers: Chronic kidney disease stage: stage 4 (severe) (4) Anemia Code(s): D64.9 - ANEMIA, UNSPECIFIED (5) Atrial fibrillation Code(s): I48.91 - UNSPECIFIED ATRIAL FIBRILLATION Qualifiers: Atrial fibrillation type: paroxysmal Qualified Code(s): I48.0 - Paroxysmal atrial fibrillation (6) Diabetes mellitus Code(s): E11.9 - TYPE 2 DIABETES MELLITUS WITHOUT COMPLICATIONS (7) Diastolic dysfunction without heart failure Code(s): I51.89 - OTHER ILL-DEFINED HEART DISEASES (8) S/P coronary artery stent placement Code(s): Z95.5 - PRESENCE OF CORONARY ANGIOPLASTY IMPLANT AND GRAFT (9) CAD (coronary artery disease) Code(s): I25.10 - ATHSCL HEART DISEASE OF [place] CORONARY ARTERY W/O ANG PCTRS Qualifiers: Coronary Disease-Associated Artery/Lesion type: [place] artery [place] vs. transplanted heart: [place] heart Associated angina: without angina Qualified Code(s): I25.10 - Atherosclerotic heart disease of [place] coronary artery without angina pectoris (10) HTN (hypertension) Code(s): I10 - ESSENTIAL (PRIMARY) HYPERTENSION Qualifiers: Hypertension type: essential hypertension Qualified Code(s): I10 - Essential (primary) hypertension (11) Hyperlipidemia Code(s): E78.5 - HYPERLIPIDEMIA, UNSPECIFIED Qualifiers: Hyperlipidemia type: pure hypercholesterolemia Qualified Code(s): E78.00 - Pure hypercholesterolemia, unspecified; E78.0 - Pure hypercholesterolemia Assessment/Plan 1. POD # 5 post right femur gamma nail insertion 2. Coronary artery disease post percutaneous coronary intervention angina pectoris 3. Diastolic left ventricular dysfunction with clinical class 0 [place] [employer] classification left ventricular failure 4. Persistent atrial fibrillation off chronic anticoagulation therapy with DOA post-op 5. Hypertensive vascular disease 6. Diabetes mellitus 7. Acute on chronic kidney disease 8. Anemia and thrombocytopenia PLAN: 1. Pain management 2. Resume Eliquis once hemostasis is achieved/cleared by orthopedic surgery 3. Continue Coreg 25 mg BID, Hydralazine 25 mg BID and Lipitor 80 mg QHS 4. Gentle hydration and monitor renal function and electrolytes 5. 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 Beau Chacon upon discharge Dannie Coon MD
--- NOTE | 2019-12-04 16:15 | PN ---
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 (short form) - Note 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: RENAL Pt denies complaints is by bedside Last Vital Signs Temp Pulse Resp BP Pulse Ox 97.6 F 75 20 135/70 98 12/04/19 13:35 12/04/19 13:35 12/04/19 13:35 12/04/19 13:35 12/04/19 09:00 lungs clear cvs s1s2 rr abd soft ext +edema gu has [place] catheter, tea colored urine with sediment CBC, BMP 12/04/19 08:45 12/04/19 08:45 Current Medications Generic Name Dose Route Start Last Admin Trade Name Freq PRN Reason Stop Dose Admin Acetaminophen 325 mg 11/25/19 22:28 11/29/19 00:58 Tylenol - PO 325 mg Q4H PRN Administration PAIN LEVEL 6-10 Allopurinol 100 mg 11/26/19 10:00 12/04/19 10:03 Zyloprim - PO 100 mg DAILY MARY Administration Atorvastatin Calcium 80 mg 11/26/19 22:00 12/03/19 22:03 Lipitor - PO 80 mg HS MARY Administration Carvedilol 25 mg 11/25/19 22:45 12/04/19 10:03 Coreg - PO 25 mg BID MARY Administration Docusate Sodium 100 mg 11/26/19 22:00 12/03/19 22:03 Colace - PO 100 mg HS MARY Administration Escitalopram Oxalate 10 mg 11/26/19 10:00 12/04/19 10:03 Lexapro - PO 10 mg DAILY MARY Administration Hydralazine HCl 25 mg 11/28/19 11:18 12/04/19 10:03 Apresoline - PO 25 mg BID MARY Administration Sodium Chloride 1,000 mls @ 75 mls/hr 12/02/19 18:46 12/03/19 18:46 1/2 Normal Saline IV Not Given ASDIR MARY Insulin Aspart 1 vial 11/26/19 07:00 12/04/19 11:20 Novolog Vial Sliding Scale - SQ 2 units ACHS MARY Administration Protocol Lidocaine 2 patch 12/01/19 10:00 12/04/19 10:04 Lidoderm Patch - TP 2 patch DAILY [facility]ARY Administration Miscellaneous 2 each 11/28/19 11:20 12/03/19 22:03 Lidoderm Patch Removal MC 2 each DAILY@2200 MARY Administration Ondansetron HCl 4 mg 11/29/19 14:08 Zofran Injection IVPUSH Q6H PRN NAUSEA AND/OR VOMITING Pantoprazole Sodium 40 mg 12/02/19 07:15 12/04/19 06:12 Protonix - PO 40 mg ACBK MARY Administration Sodium Zirconium Cyclosilicate 10 gm 11/29/19 10:00 12/04/19 10:04 Lokelma PO 10 gm DAILY MARY Administration Impression 1. CKD with acute component 2. hx CHF 3. CAD 4. DM 5. HTN 6. hyperlipidemia 7. BPH 8. pleural effusions 9. SPIKE 10. hyperkalemia 11. right femur fracture Plan - repeat labs in am, repeat bmp - cont with fluids - encourage po intake - pain control - avoid nsaids -repeat urinalysis, ck MV
--- NOTE | 2019-12-04 17:51 | PN ---
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, Physician Chief Complaint: Patient is day 4 post op after right hip fracture repair with gamma nail placement.The patient is more alert, and there is no shortness of breath or chest pain. Dark hematuria is present. 2 units of PRBC were transfused yesterday while Eilquis is still on hold. The patient complains of pain of the right thigh only with mobilization. HE continues to have poor appetite. History of Present Illness: 74 yo male was admitted for right intertrochanteric fracture repair with GAmma nail placement on November 29, 2019. He has PMH fr HTN, Chronic Afib, ACD, DM type 2, and CKD. 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 He received 2 units of PRBC. - Current Medication List Current Medications: Active Medications Acetaminophen (Tylenol -) 325 mg PO Q4H PRN PRN Reason: PAIN LEVEL 6-10 Last Admin: 11/29/19 00:58 Dose: 325 mg Documented by: Allopurinol (Zyloprim -) 100 mg PO DAILY [facility] Last Admin: 12/04/19 10:03 Dose: 100 mg Documented by: Atorvastatin Calcium (Lipitor -) 80 mg PO [facility] Last Admin: 12/03/19 22:03 Dose: 80 mg Documented by: Carvedilol (Coreg -) 25 mg PO BID [facility] Last Admin: 12/04/19 10:03 Dose: 25 mg Documented by: Docusate Sodium (Colace -) 100 mg PO [facility] Last Admin: 12/03/19 22:03 Dose: 100 mg Documented by: Escitalopram Oxalate (Lexapro -) 10 mg PO DAILY [facility] Last Admin: 12/04/19 10:03 Dose: 10 mg Documented by: Hydralazine HCl (Apresoline -) 25 mg PO BID [facility] Last Admin: 12/04/19 10:03 Dose: 25 mg Documented by: Sodium Chloride (1/2 Normal Saline) 1,000 mls @ 75 mls/hr IV ASDIR [facility] Last Admin: 12/03/19 18:46 Dose: Not Given Documented by: Insulin Aspart (Novolog Vial Sliding Scale -) 1 vial SQ ACHS [facility]; Protocol Last Admin: 12/04/19 16:41 Dose: 2 units Documented by: Lidocaine (Lidoderm Patch -) 2 patch TP DAILY [facility] Last Admin: 12/04/19 10:04 Dose: 2 patch Documented by: Miscellaneous (Lidoderm Patch Removal) 2 each MC DAILY@2200 [facility] Last Admin: 12/03/19 22:03 Dose: 2 each Documented by: Ondansetron HCl (Zofran Injection) 4 mg IVPUSH Q6H PRN PRN Reason: NAUSEA AND/OR VOMITING Pantoprazole Sodium (Protonix -) 40 mg PO ACBK [facility] Last Admin: 12/04/19 06:12 Dose: 40 mg Documented by: Sodium Zirconium Cyclosilicate (Lokelma) 10 gm PO DAILY [facility] Last Admin: 12/04/19 10:04 Dose: 10 gm Documented by: - Objective Vital Signs: Vital Signs Temperature 97.6 F 12/04/19 13:35 Pulse Rate 75 12/04/19 13:35 Respiratory Rate 20 12/04/19 13:35 Blood Pressure 135/70 12/04/19 13:35 O2 Sat by Pulse Oximetry (%) 98 12/04/19 09:00 Constitutional: Yes: No Distress, Calm Eyes: Yes: Conjunctiva Clear, EOM Intact HENT: Yes: Atraumatic, Normocephalic Neck: Yes: Supple, Trachea Midline Cardiovascular: Yes: Regular Rate and Rhythm, S1, S2 Respiratory: Yes: Regular, CTA Bilaterally Gastrointestinal: Yes: Normal Bowel Sounds, Soft Genitourinary: Yes: Hematuria Breast(s): Yes: WNL Musculoskeletal: Yes: WNL Edema: No Peripheral Pulses WNL: Yes Wound/Incision: Yes: Clean/Dry, Dressing Dry and Intact Neurological: Yes: Alert, Oriented Psychiatric: Yes: Alert, Oriented Labs: CBC, BMP 12/04/19 08:45 12/04/19 08:45 INR, PTT INR 1.13 (0.83-1.09) H 11/29/19 07:58 - ....Imaging Ultrasound: Report Reviewed, Other (official reading negative for hy dronephrosis) Problem List - Problems (1) Hematuria Assessment/Plan: PSA is pending a [place] was inserted and dark Hematuria is still present urine cultures were negative Code(s): R31.9 - HEMATURIA, UNSPECIFIED (2) Thrombocytopenia Assessment/Plan: monitor platelet count stable at this moment Code(s): D69.6 - THROMBOCYTOPENIA, UNSPECIFIED (3) Closed right hip fracture Assessment/Plan: tolerated well Gamma nail placement off anticoagulation Lidoderm patches # 2 to the right hip Oxycodone 5 mg every 4 hours as needed Code(s): S72.001A - FRACTURE OF UNSP PART OF NECK OF RIGHT FEMUR, INIT Qualifiers: Encounter type: initial encounter Qualified Code(s): S72.001A - Fracture of unspecified part of neck of right femur, initial encounter for closed fracture (4) Coronary artery disease Assessment/Plan: had no complications during surgery off anticoagulation Code(s): I25.10 - ATHSCL HEART DISEASE OF [place] CORONARY ARTERY W/O ANG PCTRS Qualifiers: Coronary Disease-Associated Artery/Lesion type: [place] artery [place] vs. transplanted heart: [place] heart Associated angina: without angina Qualified Code(s): I25.10 - Atherosclerotic heart disease of [place] coronary artery without angina pectoris (5) CHF (congestive heart failure) Assessment/Plan: gentle hydration due to elevated BUN will continue hydration with 1/2 NS, until po intake will improve Code(s): I50.9 - HEART FAILURE, UNSPECIFIED Qualifiers: Heart failure type: combined systolic and diastolic Heart failure chronicity: chronic Qualified Code(s): I50.42 - Chronic combined systolic (congestive) and diastolic (congestive) heart failure (6) CKD (chronic kidney disease) Assessment/Plan: AKD/CKD encouraged po fluids continue iv hydration Code(s): N18.9 - CHRONIC KIDNEY DISEASE, UNSPECIFIED Qualifiers: Chronic kidney disease stage: stage 3 (moderate) Qualified Code(s): N18.3 - Chronic kidney disease, stage 3 (moderate) (7) Diabetes 1.5, managed as type 2 Assessment/Plan: regular insulin coverage Code(s): E10.9 - TYPE 1 DIABETES MELLITUS WITHOUT COMPLICATIONS (8) Atrial fibrillation Assessment/Plan: chronic, rhythm is controlled Eliquis is on hold Code(s): I48.91 - UNSPECIFIED ATRIAL FIBRILLATION Qualifiers: Atrial fibrillation type: paroxysmal Qualified Code(s): I48.0 - Paroxysmal atrial fibrillation (9) Thrombocytopenia Assessment/Plan: still present, there is no further drop in platelet count Code(s): D69.6 - THROMBOCYTOPENIA, UNSPECIFIED
[2019-12-04] MEDS: SODIUM CHLORIDE 0.45% 1,000 ML IV SCH (20:07)
[2019-12-04] MEDS: DOCUSATE SODIUM 100 MG CAPSULE (FP) PO SCH (22:02)
[2019-12-04] MEDS: ATORVASTATIN CA 80 MG TABLET (FP) PO SCH (22:02)
[2019-12-04] MEDS: LIDOCAINE PATCH REMOVAL MC SCH (22:09)
[2019-12-05] MEDS: INSULIN SLIDING SCALE (NOVOLOG) 1 VIAL SQ SCH ×4 (07:07→21:22)
[2019-12-05] MEDS: PANTOPRAZOLE 40 MG TABLET PO SCH (07:07)
[2019-12-05] MEDS: hydrALAZINE HCL 25 MG TABLET (FP) PO SCH ×2 (09:34→21:22)
[2019-12-05] MEDS: CARVEDILOL 25 MG TABLET (FP) PO SCH ×2 (09:34→21:22)
[2019-12-05] MEDS: LIDOCAINE 5% TOPICAL PATCH TP SCH (09:34)
[2019-12-05] MEDS: ESCITALOPRAM OXALATE 10 MG TABLET PO SCH (09:34)
[2019-12-05] MEDS: SODIUM ZIRCONIUM CYCLOSILICATE (LOKELMA) 10 GM PACKET PO SCH (09:35)
[2019-12-05] MEDS: ALLOPURINOL 100 MG TABLET (FP) PO SCH (09:35)
[2019-12-05] MEDS: ACETAMINOPHEN 325 MG TABLET (FP) PO PRN ×3 (09:41→21:22)
[2019-12-05] MEDS: SODIUM CHLORIDE 0.45% 1,000 ML IV SCH ×3 (13:03→21:50)
--- NOTE | 2019-12-05 13:03 | PN ---
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 (short form) - Note 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: RENAL asleep, comfortable Last Vital Signs Temp Pulse Resp BP Pulse Ox 97.4 F L 77 20 137/67 98 12/05/19 09:08 12/05/19 09:08 12/05/19 09:08 12/05/19 09:08 12/05/19 09:00 lungs clear cvs s1s2 rr abd soft ext +edema gu has [place] catheter, tea colored urine with sediment CBC, BMP 12/04/19 08:45 12/04/19 08:45 Current Medications Generic Name Dose Route Start Last Admin Trade Name Freq PRN Reason Stop Dose Admin Acetaminophen 325 mg 11/25/19 22:28 12/05/19 09:41 Tylenol - PO 325 mg Q4H PRN Administration PAIN LEVEL 6-10 Allopurinol 100 mg 11/26/19 10:00 12/05/19 09:35 Zyloprim - PO 100 mg DAILY [facility] Administration Atorvastatin Calcium 80 mg 11/26/19 22:00 12/04/19 22:02 Lipitor - PO 80 mg HS [facility]ARY Administration Carvedilol 25 mg 11/25/19 22:45 12/05/19 09:34 Coreg - PO 25 mg BID [facility] Administration Docusate Sodium 100 mg 11/26/19 22:00 12/04/19 22:02 Colace - PO 100 mg HS [facility]ARY Administration Escitalopram Oxalate 10 mg 11/26/19 10:00 12/05/19 09:34 Lexapro - PO 10 mg DAILY [facility] Administration Hydralazine HCl 25 mg 11/28/19 11:18 12/05/19 09:34 Apresoline - PO 25 mg BID [facility] Administration Sodium Chloride 1,000 mls @ 75 mls/hr 12/02/19 18:46 12/04/19 20:07 1/2 Normal Saline IV 75 mls/hr ASDIR [facility] Administration Insulin Aspart 1 vial 11/26/19 07:00 12/05/19 11:09 Novolog Vial Sliding Scale - SQ 2 units ACHS [facility] Administration Protocol Lidocaine 2 patch 12/01/19 10:00 12/05/19 09:34 Lidoderm Patch - TP 2 patch DAILY [facility] Administration Miscellaneous 2 each 11/28/19 11:20 12/04/19 22:09 Lidoderm Patch Removal MC 2 each DAILY@2200 [facility] Administration Ondansetron HCl 4 mg 11/29/19 14:08 Zofran Injection IVPUSH Q6H PRN NAUSEA AND/OR VOMITING Pantoprazole Sodium 40 mg 12/02/19 07:15 12/05/19 07:07 Protonix - PO 40 mg ACBK [facility] Administration Sodium Zirconium Cyclosilicate 10 gm 11/29/19 10:00 12/05/19 09:35 Lokelma PO 10 gm DAILY [facility] Administration Impression 1. CKD with acute component 2. hx CHF 3. CAD 4. DM 5. HTN 6. hyperlipidemia 7. BPH 8. pleural effusions 9. SPIKE 10. hyperkalemia 11. right femur fracture Plan - repeat labs in am, repeat bmp - cont with fluids - encourage po intake - pain control - avoid nsaids -repeat urinalysis, ck MV
--- NOTE | 2019-12-05 14:31 | PN ---
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, Physician Chief Complaint: Events noted No events overnight History of Present Illness: Patient was seen and examined. Awake and alert. Chart was reviewed Denies chest pain, SOB or palpitations - Current Medication List Current Medications: Active Medications Acetaminophen (Tylenol -) 325 mg PO Q4H PRN PRN Reason: PAIN LEVEL 6-10 Last Admin: 12/05/19 09:41 Dose: 325 mg Documented by: Allopurinol (Zyloprim -) 100 mg PO DAILY [facility] Last Admin: 12/05/19 09:35 Dose: 100 mg Documented by: Atorvastatin Calcium (Lipitor -) 80 mg PO [facility] Last Admin: 12/04/19 22:02 Dose: 80 mg Documented by: Carvedilol (Coreg -) 25 mg PO BID [facility] Last Admin: 12/05/19 09:34 Dose: 25 mg Documented by: Docusate Sodium (Colace -) 100 mg PO [facility] Last Admin: 12/04/19 22:02 Dose: 100 mg Documented by: Escitalopram Oxalate (Lexapro -) 10 mg PO DAILY [facility] Last Admin: 12/05/19 09:34 Dose: 10 mg Documented by: Hydralazine HCl (Apresoline -) 25 mg PO BID [facility] Last Admin: 12/05/19 09:34 Dose: 25 mg Documented by: Sodium Chloride (1/2 Normal Saline) 1,000 mls @ 75 mls/hr IV ASDIR [facility] Last Admin: 12/05/19 13:03 Dose: 75 mls/hr Documented by: Insulin Aspart (Novolog Vial Sliding Scale -) 1 vial SQ ACHS [facility]; Protocol Last Admin: 12/05/19 11:09 Dose: 2 units Documented by: Lidocaine (Lidoderm Patch -) 2 patch TP DAILY [facility] Last Admin: 12/05/19 09:34 Dose: 2 patch Documented by: Miscellaneous (Lidoderm Patch Removal) 2 each MC DAILY@2200 [facility] Last Admin: 12/04/19 22:09 Dose: 2 each Documented by: Ondansetron HCl (Zofran Injection) 4 mg IVPUSH Q6H PRN PRN Reason: NAUSEA AND/OR VOMITING Pantoprazole Sodium (Protonix -) 40 mg PO ACBK [facility] Last Admin: 12/05/19 07:07 Dose: 40 mg Documented by: Sodium Zirconium Cyclosilicate (Lokelma) 10 gm PO DAILY [facility] Last Admin: 12/05/19 09:35 Dose: 10 gm Documented by: - Objective Vital Signs: Vital Signs Temperature 97.4 F L 12/05/19 09:08 Pulse Rate 77 12/05/19 09:08 Respiratory Rate 20 12/05/19 09:08 Blood Pressure 137/67 12/05/19 09:08 O2 Sat by Pulse Oximetry (%) 98 12/05/19 09:00 Neck: Yes: Supple Cardiovascular: Yes: Regular Rate and Rhythm Respiratory: Yes: Diminished Gastrointestinal: Yes: Normal Bowel Sounds, Soft. No: Tenderness Edema: No Labs: CBC, BMP 12/04/19 08:45 12/04/19 08:45 Problem List - Problems (1) Closed right hip fracture Code(s): S72.001A - FRACTURE OF UNSP PART OF NECK OF RIGHT FEMUR, INIT Qualifiers: Encounter type: initial encounter Qualified Code(s): S72.001A - Fracture of unspecified part of neck of right femur, initial encounter for closed fracture (2) Acute on chronic systolic and diastolic heart failure, NYHA class 2 Code(s): I50.43 - ACUTE ON CHRONIC COMBINED SYSTOLIC AND DIASTOLIC HRT FAIL (3) [place]-pc-vimiaew kidney injury Code(s): N17.9 - ACUTE KIDNEY FAILURE, UNSPECIFIED; N18.9 - CHRONIC KIDNEY DIS EASE, UNSPECIFIED Qualifiers: Chronic kidney disease stage: stage 4 (severe) (4) Anemia Code(s): D64.9 - ANEMIA, UNSPECIFIED (5) Atrial fibrillation Code(s): I48.91 - UNSPECIFIED ATRIAL FIBRILLATION Qualifiers: Atrial fibrillation type: paroxysmal Qualified Code(s): I48.0 - Paroxysmal atrial fibrillation (6) Diabetes mellitus Code(s): E11.9 - TYPE 2 DIABETES MELLITUS WITHOUT COMPLICATIONS (7) Diastolic dysfunction without heart failure Code(s): I51.89 - OTHER ILL-DEFINED HEART DISEASES (8) S/P coronary artery stent placement Code(s): Z95.5 - PRESENCE OF CORONARY ANGIOPLASTY IMPLANT AND GRAFT (9) CAD (coronary artery disease) Code(s): I25.10 - ATHSCL HEART DISEASE OF [place] CORONARY ARTERY W/O ANG PCTRS Qualifiers: Coronary Disease-Associated Artery/Lesion type: [place] artery [place] vs. transplanted heart: [place] heart Associated angina: without angina Qualified Code(s): I25.10 - Atherosclerotic heart disease of [place] coronary artery without angina pectoris (10) HTN (hypertension) Code(s): I10 - ESSENTIAL (PRIMARY) HYPERTENSION Qualifiers: Hypertension type: essential hypertension Qualified Code(s): I10 - Essential (primary) hypertension (11) Hyperlipidemia Code(s): E78.5 - HYPERLIPIDEMIA, UNSPECIFIED Qualifiers: Hyperlipidemia type: pure hypercholesterolemia Qualified Code(s): E78.00 - Pure hypercholesterolemia, unspecified; E78.0 - Pure hypercholesterolemia Assessment/Plan 1. POD # 6 post right femur gamma nail insertion 2. Coronary artery disease post percutaneous coronary intervention angina pectoris 3. Diastolic left ventricular dysfunction with clinical class 0 [place] [employer] classification left ventricular failure 4. Persistent atrial fibrillation off chronic anticoagulation therapy with DOA post-op 5. Hypertensive vascular disease 6. Diabetes mellitus 7. Acute on chronic kidney disease 8. Anemia and thrombocytopenia PLAN: 1. Pain management 2. Resume Eliquis once hemostasis is achieved/cleared by orthopedic surgery 3. Continue Coreg 25 mg BID, Hydralazine 25 mg BID and Lipitor 80 mg QHS 4. Gentle hydration and monitor renal function and electrolytes 5. 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 Beau Chacon upon discharge Dannie Coon MD
[2019-12-05 16:38] LABS: BASO % 0.2 % (0-2.0); HEMATOCRIT 28.5 % (35.4-49); HEMOGLOBIN 9.3 GM/dL (11.7-16.9); LYMPH % 11.2 % (8-40); MCH 31.2 pg (25.7-33.7); MCHC 32.7 g/dl (32.0-35.9); MEAN CELL VOLUME 95.5 fl (80-96); MEAN PLT VOLUME 9.4 fl (7.5-11.1); MONO % 7.2 % (3.8-10.2); NEUT % 80.4 % (42.8-82.8); PLATELET COUNT 109 K/MM3 (134-434); RBC 2.99 M/mm3 (4.00-5.60); RDW 17.7 % (11.9-15.9); WHITE BLOOD COUNT 4.8 K/mm3 (4.0-10.0)
[2019-12-05 17:04] LABS: ALK PHOS 68 U/L (45-117); ANION GAP 10 MMOL/L (8-16); BILIRUBIN,TOTAL 0.8 mg/dL (0.2-1); CALCIUM 7.7 mg/dL (8.5-10.1); CHLORIDE 106 mmol/L (98-107); CO2 20 mmol/L (21-32); CREATININE 2.9 mg/dL (0.55-1.3); GLUCOSE,RANDOM 178 mg/dL (74-106); POTASSIUM 4.6 mmol/L (3.5-5.1); SGOT/AST 9 U/L (15-37); SODIUM 137 mmol/L (136-145); TOT PROT 5.4 g/dl (6.4-8.2)
[2019-12-05 17:05] LABS: SGPT/ALT < 6 U/L (13-61)
[2019-12-05 17:07] LABS: BLOOD UREA NITROGEN 106.8 mg/dL (7-18)
[2019-12-05] MEDS: DOCUSATE SODIUM 100 MG CAPSULE (FP) PO SCH (21:22)
[2019-12-05] MEDS: ATORVASTATIN CA 80 MG TABLET (FP) PO SCH (21:22)
[2019-12-05] MEDS: LIDOCAINE PATCH REMOVAL MC SCH (21:23)
--- NOTE | 2019-12-05 21:50 | PN ---
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, Physician Chief Complaint: PAtient is awake and more alert, ate better, complains of pain in the right hip with mobilization History of Present Illness: 74 yo male who was admitted for right intertrochanteric fracture developed AKD on CKD and hematuria. - Current Medication List Current Medications: Active Medications Acetaminophen (Tylenol -) 325 mg PO Q4H PRN PRN Reason: PAIN LEVEL 6-10 Last Admin: 12/05/19 14:59 Dose: 325 mg Documented by: Allopurinol (Zyloprim -) 100 mg PO DAILY [facility] Last Admin: 12/05/19 09:35 Dose: 100 mg Documented by: Atorvastatin Calcium (Lipitor -) 80 mg PO [facility] Last Admin: 12/04/19 22:02 Dose: 80 mg Documented by: Carvedilol (Coreg -) 25 mg PO BID [facility] Last Admin: 12/05/19 09:34 Dose: 25 mg Documented by: Docusate Sodium (Colace -) 100 mg PO [facility] Last Admin: 12/04/19 22:02 Dose: 100 mg Documented by: Escitalopram Oxalate (Lexapro -) 10 mg PO DAILY [facility] Last Admin: 12/05/19 09:34 Dose: 10 mg Documented by: Hydralazine HCl (Apresoline -) 25 mg PO BID [facility] Last Admin: 12/05/19 09:34 Dose: 25 mg Documented by: Sodium Chloride (1/2 Normal Saline) 1,000 mls @ 75 mls/hr IV ASDIR [facility] Last Admin: 12/05/19 20:02 Dose: Not Given Documented by: Insulin Aspart (Novolog Vial Sliding Scale -) 1 vial SQ ACHS [facility]; Protocol Last Admin: 12/05/19 16:16 Dose: 2 units Documented by: Lidocaine (Lidoderm Patch -) 2 patch TP DAILY [facility] Last Admin: 12/05/19 09:34 Dose: 2 patch Documented by: Miscellaneous (Lidoderm Patch Removal) 2 each MC DAILY@2200 [facility] Last Admin: 12/04/19 22:09 Dose: 2 each Documented by: Ondansetron HCl (Zofran Injection) 4 mg IVPUSH Q6H PRN PRN Reason: NAUSEA AND/OR VOMITING Pantoprazole Sodium (Protonix -) 40 mg PO ACBK [facility] Last Admin: 12/05/19 07:07 Dose: 40 mg Documented by: Sodium Zirconium Cyclosilicate (Lokelma) 10 gm PO DAILY [facility] Last Admin: 12/05/19 09:35 Dose: 10 gm Documented by: - Objective Vital Signs: Vital Signs Temperature 98.3 F 12/05/19 19:18 Pulse Rate 74 12/05/19 19:18 Respiratory Rate 20 12/05/19 14:37 Blood Pressure 143/61 12/05/19 19:18 O2 Sat by Pulse Oximetry (%) 98 12/05/19 09:00 Constitutional: Yes: No Distress, Calm Eyes: Yes: Conjunctiva Clear, EOM Intact HENT: Yes: Atraumatic, Normocephalic Neck: Yes: Supple, Trachea Midline Cardiovascular: Yes: Regular Rate and Rhythm, S1, S2 Respiratory: Yes: Regular, CTA Bilaterally, On Nasal O2. No: SOB, SOB on Exertion, Wheezes Gastrointestinal: Yes: Normal Bowel Sounds, Soft. No: Hemorrhoids, Hepatomegaly, Tenderness ...Rectal Exam: Yes: Deferred Genitourinary: Yes: Hematuria Breast(s): Yes: WNL Musculoskeletal: Yes: Other (right hip apain) Extremities: No: Calf Tenderness Edema: No Peripheral Pulses WNL: Yes Wound/Incision: Yes: Dressing Dry and Intact Neurological: Yes: Alert, Oriented ...Motor Strength: RLE (in Pain) Psychiatric: Yes: Alert, Oriented Labs: CBC, BMP 12/05/19 15:34 12/05/19 15:34 INR, PTT INR 1.13 (0.83-1.09) H 11/29/19 07:58 Problem List - Problems (1) CKD (chronic kidney disease) Assessment/Plan: AKD/CKD encouraged po fluids continue iv hydration monitor CMP Code(s): N18.9 - CHRONIC KIDNEY DISEASE, UNSPECIFIED Qualifiers: Chronic kidney disease stage: stage 3 (moderate) Qualified Code(s): N18.3 - Chronic kidney disease, stage 3 (moderate) (2) Diabetes 1.5, managed as type 2 Assessment/Plan: regular insulin coverage Code(s): E10.9 - TYPE 1 DIABETES MELLITUS WITHOUT COMPLICATIONS (3) Closed right hip fracture Assessment/Plan: tolerated well Gamma nail placement off anticoagulation Lidoderm patches # 2 to the right hip Oxycodone 5 mg every 4 hours as needed Code(s): S72.001A - FRACTURE OF UNSP PART OF NECK OF RIGHT FEMUR, INIT Qualifiers: Encounter type: initial encounter Qualified Code(s): S72.001A - Fracture of unspecified part of neck of right femur, initial encounter for closed fracture (4) Atrial fibrillation Assessment/Plan: chronic, rhythm is controlled Eliquis is on hold Code(s): I48.91 - UNSPECIFIED ATRIAL FIBRILLATION Qualifiers: Atrial fibrillation type: paroxysmal Qualified Code(s): I48.0 - Paroxysmal atrial fibrillation (5) CHF (congestive heart failure) Assessment/Plan: gentle hydration due to elevated BUN will continue hydration with 1/2 NS, until po intake will improve Code(s): I50.9 - HEART FAILURE, UNSPECIFIED Qualifiers: Heart failure type: combined systolic and diastolic Heart failure chronicity: chronic Qualified Code(s): I50.42 - Chronic combined systolic (congestive) and diastolic (congestive) heart failure (6) Coronary artery disease Assessment/Plan: had no complications during surgery off anticoagulation Code(s): I25.10 - ATHSCL HEART DISEASE OF [place] CORONARY ARTERY W/O ANG PCTRS Qualifiers: Coronary Disease-Associated Artery/Lesion type: [place] artery [place] vs. transplanted heart: [place] heart Associated angina: without angina Qualified Code(s): I25.10 - Atherosclerotic heart disease of [place] coronary artery without angina pectoris (7) Thrombocytopenia Assessment/Plan: improving Code(s): D69.6 - THROMBOCYTOPENIA, UNSPECIFIED
[2019-12-06] MEDS: PANTOPRAZOLE 40 MG TABLET PO SCH (06:01)
[2019-12-06] MEDS: INSULIN SLIDING SCALE (NOVOLOG) 1 VIAL SQ SCH ×4 (06:26→21:48)
--- NOTE | 2019-12-06 09:24 | PN ---
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 (short form) - Note 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: No acute cardiac issues Vital Signs Temperature 98.2 F 12/06/19 06:42 Pulse Rate 75 12/06/19 06:42 Respiratory Rate 20 12/06/19 06:42 Blood Pressure 128/55 L 12/06/19 06:42 O2 Sat by Pulse Oximetry (%) 99 12/05/19 21:00 robb: Yes: Supple Cardiovascular: Yes: Regular Rate and Rhythm Respiratory: Yes: Diminished Gastrointestinal: Yes: Normal Bowel Sounds, Soft. No: Tenderness Edema: No Labs: CBC, BMP 12/05/19 15:34 12/05/19 15:34 Active Medications Acetaminophen (Tylenol -) 325 mg PO Q4H PRN PRN Reason: PAIN LEVEL 6-10 Last Admin: 12/05/19 21:22 Dose: 325 mg Documented by: Allopurinol (Zyloprim -) 100 mg PO DAILY [facility] Last Admin: 12/05/19 09:35 Dose: 100 mg Documented by: Atorvastatin Calcium (Lipitor -) 80 mg PO [facility] Last Admin: 12/05/19 21:22 Dose: 80 mg Documented by: Carvedilol (Coreg -) 25 mg PO BID [facility] Last Admin: 12/05/19 21:22 Dose: 25 mg Documented by: Docusate Sodium (Colace -) 100 mg PO [facility] Last Admin: 12/05/19 21:22 Dose: 100 mg Documented by: Escitalopram Oxalate (Lexapro -) 10 mg PO DAILY [facility] Last Admin: 12/05/19 09:34 Dose: 10 mg Documented by: Hydralazine HCl (Apresoline -) 25 mg PO BID [facility] Last Admin: 12/05/19 21:22 Dose: 25 mg Documented by: Sodium Chloride (1/2 Normal Saline) 1,000 mls @ 75 mls/hr IV ASDIR [facility] Last Admin: 12/05/19 21:50 Dose: 75 mls/hr Documented by: Insulin Aspart (Novolog Vial Sliding Scale -) 1 vial SQ [facility]; Protocol Last Admin: 12/06/19 06:26 Dose: Not Given Documented by: Lidocaine (Lidoderm Patch -) 2 patch TP DAILY [facility] Last Admin: 12/05/19 09:34 Dose: 2 patch Documented by: Miscellaneous (Lidoderm Patch Removal) 2 each MC DAILY@2200 [facility] Last Admin: 12/05/19 21:23 Dose: 2 each Documented by: Ondansetron HCl (Zofran Injection) 4 mg IVPUSH Q6H PRN PRN Reason: NAUSEA AND/OR VOMITING Pantoprazole Sodium (Protonix -) 40 mg PO ACBK [facility] Last Admin: 12/06/19 06:01 Dose: 40 mg Documented by: Sodium Zirconium Cyclosilicate (Lokelma) 10 gm PO DAILY [facility] Last Admin: 12/05/19 09:35 Dose: 10 gm Documented by: Problem List - Problems (1) Closed right hip fracture Code(s): S72.001A - FRACTURE OF UNSP PART OF NECK OF RIGHT FEMUR, INIT Qualifiers: Encounter type: initial encounter Qualified Code(s): S72.001A - Fracture of unspecified part of neck of right femur, initial encounter for closed fracture (2) Acute on chronic systolic and diastolic heart failure, NYHA class 2 Code(s): I50.43 - ACUTE ON CHRONIC COMBINED SYSTOLIC AND DIASTOLIC HRT FAIL (3) [id number] kidney injury Code(s): N17.9 - ACUTE KIDNEY FAILURE, UNSPECIFIED; N18.9 - CHRONIC KIDNEY DISEASE, UNSPECIFIED Qualifiers: Chronic kidney disease stage: stage 4 (severe) (4) Anemia Code(s): D64.9 - ANEMIA, UNSPECIFIED (5) Atrial fibrillation Code(s): I48.91 - UNSPECIFIED ATRIAL FIBRILLATION Qualifiers: Atrial fibrillation type: paroxysmal Qualified Code(s): I48.0 - Paroxysmal atrial fibrillation (6) Diabetes mellitus Code(s): E11.9 - TYPE 2 DIABETES MELLITUS WITHOUT COMPLICATIONS (7) Diastolic dysfunction without heart failure Code(s): I51.89 - OTHER ILL-DEFINED HEART DISEASES (8) S/P coronary artery stent placement Code(s): Z95.5 - PRESENCE OF CORONARY ANGIOPLASTY IMPLANT AND GRAFT (9) CAD (coronary artery disease) Code(s): I25.10 - ATHSCL HEART DISEASE OF [place] CORONARY ARTERY W/O ANG PCTRS Qualifiers: Coronary Disease-Associated Artery/Lesion type: [place] artery [place] vs. transplanted heart: [place] heart Associated angina: without angina Qualified Code(s): I25.10 - Atherosclerotic heart disease of [place] coronary artery without angina pectoris (10) HTN (hypertension) Code(s): I10 - ESSENTIAL (PRIMARY) HYPERTENSION Qualifiers: Hypertension type: essential hypertension Qualified Code(s): I10 - Essential (primary) hypertension (11) Hyperlipidemia Code(s): E78.5 - HYPERLIPIDEMIA, UNSPECIFIED Qualifiers: Hyperlipidemia type: pure hypercholesterolemia Qualified Code(s): E78.00 - Pure hypercholesterolemia, unspecified; E78.0 - Pure hypercholesterolemia Assessment/Plan 1. POD # 7 post right femur gamma nail insertion 2. Coronary artery disease post percutaneous coronary intervention angina pectoris 3. Diastolic left ventricular dysfunction with clinical class 0 [place] [employer] classification left ventricular failure 4. Persistent atrial fibrillation off chronic anticoagulation therapy with DOA post-op 5. Hypertensive vascular disease 6. Diabetes mellitus 7. Acute on chronic kidney disease 8. Anemia and thrombocytopenia PLAN: Same cardiacwise 1. Pain management 2. Resume Eliquis once hemostasis is achieved/cleared by orthopedic surgery 3. Continue Coreg 25 mg BID, Hydralazine 25 mg BID and Lipitor 80 mg QHS 4. Gentle hydration and monitor renal function and electrolytes 5. 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 Beau Chacon upon discharge
[2019-12-06] MEDS: LIDOCAINE 5% TOPICAL PATCH TP SCH (09:49)
[2019-12-06] MEDS: CARVEDILOL 25 MG TABLET (FP) PO SCH ×2 (09:49→21:45)
[2019-12-06] MEDS: ALLOPURINOL 100 MG TABLET (FP) PO SCH (09:49)
[2019-12-06] MEDS: hydrALAZINE HCL 25 MG TABLET (FP) PO SCH ×2 (09:49→21:45)
[2019-12-06] MEDS: ESCITALOPRAM OXALATE 10 MG TABLET PO SCH (09:49)
--- NOTE | 2019-12-06 09:50 | PN ---
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 (short form) - Note 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: Pt seen and examined. He is comfortable, no c/o pain. AVSS H/H stable, mildly decreased today B/L LE grossly NVI Dressing CDI Overall doing well s/p right Gamma Nail. Rec: Con't P.T., PWB RLE DC planning
[2019-12-06 10:41] LABS: HEMATOCRIT 26.9 % (35.4-49); MCH 31.7 pg (25.7-33.7); MCHC 33.3 g/dl (32.0-35.9); MEAN CELL VOLUME 95.2 fl (80-96); MEAN PLT VOLUME 8.9 fl (7.5-11.1); PLATELET COUNT 103 K/MM3 (134-434); RBC 2.82 M/mm3 (4.00-5.60); RDW 17.2 % (11.9-15.9); WHITE BLOOD COUNT 4.6 K/mm3 (4.0-10.0)
--- NOTE | 2019-12-06 11:00 | PN ---
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 Progress Note: Selected Entries 12/03/19 12/03/19 12/04/19 10:20 23:00 10:09 Breakfast 25% 25% Diet Tolerated Poor Lunch 25% Supper 25% Temperature Temperature Source Pulse Rate Respiratory Rate Blood Pressure Blood Pressure Mean Blood Pressure Position O2 Sat by Pulse Oximetry (%) 12/04/19 12/05/19 12/05/19 21:18 09:40 21:46 Breakfast 0 Diet Tolerated Lunch 25% Supper 25% 50% Temperature Temperature Source Pulse Rate Respiratory Rate Blood Pressure Blood Pressure Mean Blood Pressure Position O2 Sat by Pulse Oximetry (%) 12/06/19 12/06/19 12/06/19 06:42 09:00 10:00 Breakfast Diet Tolerated Lunch Supper Temperature 98.2 F 98.4 F Temperature Oral Oral Source Pulse Rate 75 72 Respiratory 20 20 Rate Blood Pressure 128/55 L 140/57 L Blood Pressure 84 96 Mean Blood Pressure Supine Supine Position O2 Sat by Pulse 97 Oximetry (%) Laboratory Tests 12/06/19 09:55 WBC 4.6 On regular Diabetic/low sodium diet Thin liquids Nepro daily Encourage PO hydration/Nepro
[2019-12-06 11:12] LABS: POTASSIUM 4.4 mmol/L (3.5-5.1)
[2019-12-06 11:21] LABS: CALCIUM 7.5 mg/dL (8.5-10.1); CREATININE 2.8 mg/dL (0.55-1.3)
[2019-12-06 11:31] LABS: BLOOD UREA NITROGEN 105.4 mg/dL (7-18)
--- NOTE | 2019-12-06 15:01 | PN ---
Progress Note, Physician History of Present Illness: Pt seen and examined at bedside. He is awake and alert. He has poor PO intake. - Current Medication List Current Medications: Active Medications Acetaminophen (Tylenol -) 325 mg PO Q4H PRN PRN Reason: PAIN LEVEL 6-10 Last Admin: 12/05/19 21:22 Dose: 325 mg Documented by: Allopurinol (Zyloprim -) 100 mg PO DAILY [facility] Last Admin: 12/06/19 09:49 Dose: 100 mg Documented by: Atorvastatin Calcium (Lipitor -) 80 mg PO [facility] Last Admin: 12/05/19 21:22 Dose: 80 mg Documented by: Carvedilol (Coreg -) 25 mg PO BID [facility] Last Admin: 12/06/19 09:49 Dose: 25 mg Documented by: Docusate Sodium (Colace -) 100 mg PO [facility] Last Admin: 12/05/19 21:22 Dose: 100 mg Documented by: Escitalopram Oxalate (Lexapro -) 10 mg PO DAILY [facility] Last Admin: 12/06/19 09:49 Dose: 10 mg Documented by: Hydralazine HCl (Apresoline -) 25 mg PO BID [facility] Last Admin: 12/06/19 09:49 Dose: 25 mg Documented by: Sodium Chloride (1/2 Normal Saline) 1,000 mls @ 75 mls/hr IV ASDIR [facility] Last Admin: 12/05/19 21:50 Dose: 75 mls/hr Documented by: Insulin Aspart (Novolog Vial Sliding Scale -) 1 vial SQ ACHS [facility]; Protocol Last Admin: 12/06/19 11:48 Dose: Not Given Documented by: Lidocaine (Lidoderm Patch -) 2 patch TP DAILY [facility] Last Admin: 12/06/19 09:49 Dose: 2 patch Documented by: Miscellaneous (Lidoderm Patch Removal) 2 each MC DAILY@2200 [facility] Last Admin: 12/05/19 21:23 Dose: 2 each Documented by: Ondansetron HCl (Zofran Injection) 4 mg IVPUSH Q6H PRN PRN Reason: NAUSEA AND/OR VOMITING Pantoprazole Sodium (Protonix -) 40 mg PO ACBK [facility] Last Admin: 12/06/19 06:01 Dose: 40 mg Documented by: Sodium Zirconium Cyclosilicate (Lokelma) 10 gm PO DAILY [facility] Last Admin: 12/05/19 09:35 Dose: 10 gm Documented by: - Objective Vital Signs: Vital Signs Temperature 97.7 F 12/06/19 14:32 Pulse Rate 73 12/06/19 14:32 Respiratory Rate 20 12/06/19 14:32 Blood Pressure 135/57 L 12/06/19 14:32 O2 Sat by Pulse Oximetry (%) 97 12/06/19 09:00 Constitutional: Yes: Calm Eyes: Yes: Conjunctiva Clear HENT: Yes: Atraumatic Neck: Yes: Supple Cardiovascular: Yes: S1, S2 Respiratory: Yes: CTA Bilaterally Gastrointestinal: Yes: Soft Genitourinary: Yes: WNL Edema: No Neurological: Yes: Oriented Psychiatric: Yes: Oriented Labs: CBC, BMP 12/06/19 09:55 12/06/19 09:55 INR, PTT INR 1.13 (0.83-1.09) H 11/29/19 07:58 Problem List - Problems (1) CKD (chronic kidney disease) Code(s): N18.9 - CHRONIC KIDNEY DISEASE, UNSPECIFIED Qualifiers: Chronic kidney disease stage: stage 3 (moderate) Qualified Code(s): N18.3 - Chronic kidney disease, stage 3 (moderate) (2) Hyperkalemia Code(s): E87.5 - HYPERKALEMIA (3) Acute kidney failure Code(s): N17.9 - ACUTE KIDNEY FAILURE, UNSPECIFIED Qualifiers: Acute renal failure type: with other specified pathological lesion Qualified Code(s): N17.8 - Other acute kidney failure (4) CHF (congestive heart failure) Code(s): I50.9 - HEART FAILURE, UNSPECIFIED Qualifiers: Heart failure type: combined systolic and diastolic Heart failure chronicity: chronic Qualified Code(s): I50.42 - Chronic combined systolic (congestive) and diastolic (congestive) heart failure (5) HTN (hypertension) Code(s): I10 - ESSENTIAL (PRIMARY) HYPERTENSION Qualifiers: Hypertension type: essential hypertension Qualified Code(s): I10 - Essential (primary) hypertension Assessment/Plan Current Medications Generic Name Dose Route Start Last Admin Trade Name Freq PRN Reason Stop Dose Admin Acetaminophen 325 mg 11/25/19 22:28 12/05/19 21:22 Tylenol - PO 325 mg Q4H PRN Administration PAIN LEVEL 6-10 Allopurinol 100 mg 11/26/19 10:00 12/06/19 09:49 Zyloprim - PO 100 mg DAILY MARY Administration Atorvastatin Calcium 80 mg 11/26/19 22:00 12/05/19 21:22 Lipitor - PO 80 mg HS MARY Administration Carvedilol 25 mg 11/25/19 22:45 12/06/19 09:49 Coreg - PO 25 mg BID MARY Administration Docusate Sodium 100 mg 11/26/19 22:00 12/05/19 21:22 Colace - PO 100 mg HS MARY Administration Escitalopram Oxalate 10 mg 11/26/19 10:00 12/06/19 09:49 Lexapro - PO 10 mg DAILY MARY Administration Hydralazine HCl 25 mg 11/28/19 11:18 12/06/19 09:49 Apresoline - PO 25 mg BID MARY Administration Sodium Chloride 1,000 mls @ 75 mls/hr 12/02/19 18:46 12/05/19 21:50 1/2 Normal Saline IV 75 mls/hr ASDIR MARY Administration Insulin Aspart 1 vial 11/26/19 07:00 12/06/19 11:48 Novolog Vial Sliding Scale - SQ Not Given ACHS MARY Protocol Lidocaine 2 patch 12/01/19 10:00 12/06/19 09:49 Lidoderm Patch - TP 2 patch DAILY MARY Administration Miscellaneous 2 each 11/28/19 11:20 12/05/19 21:23 Lidoderm Patch Removal MC 2 each DAILY@2200 MARY Administration Ondansetron HCl 4 mg 11/29/19 14:08 Zofran Injection IVPUSH Q6H PRN NAUSEA AND/OR VOMITING Pantoprazole Sodium 40 mg 12/02/19 07:15 12/06/19 06:01 Protonix - PO 40 mg ACBK MARY Administration Sodium Zirconium Cyclosilicate 10 gm 11/29/19 10:00 12/05/19 09:35 Lokelma PO 10 gm DAILY MARY Administration Impression 1. CKD with acute component 2. hx CHF 3. CAD 4. DM 5. HTN 6. hyperlipidemia 7. BPH 8. pleural effusions 9. SPIKE 10. hyperkalemia 11. right femur fracture Plan - cont fluids - renal function slowly improving - repeat labs in am - encourage po intake - pain control - avoid nsaids Dr Menezes
--- NOTE | 2019-12-06 17:29 | PN ---
Progress Note, Physician Chief Complaint: PAtient is awake and more alert, ate better, complains of pain in the right hip with mobilization and is not cooperating to physical therapy. Hematuria persists. 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 Hematuria is persisting. - Current Medication List Current Medications: Active Medications Acetaminophen (Tylenol -) 325 mg PO Q4H PRN PRN Reason: PAIN LEVEL 6-10 Last Admin: 12/05/19 21:22 Dose: 325 mg Documented by: Allopurinol (Zyloprim -) 100 mg PO DAILY [facility] Last Admin: 12/06/19 09:49 Dose: 100 mg Documented by: Atorvastatin Calcium (Lipitor -) 80 mg PO [facility] Last Admin: 12/05/19 21:22 Dose: 80 mg Documented by: Carvedilol (Coreg -) 25 mg PO BID [facility] Last Admin: 12/06/19 09:49 Dose: 25 mg Documented by: Docusate Sodium (Colace -) 100 mg PO [facility] Last Admin: 12/05/19 21:22 Dose: 100 mg Documented by: Escitalopram Oxalate (Lexapro -) 10 mg PO DAILY [facility] Last Admin: 12/06/19 09:49 Dose: 10 mg Documented by: Hydralazine HCl (Apresoline -) 25 mg PO BID [facility] Last Admin: 12/06/19 09:49 Dose: 25 mg Documented by: Sodium Chloride (1/2 Normal Saline) 1,000 mls @ 75 mls/hr IV ASDIR [facility] Last Admin: 12/05/19 21:50 Dose: 75 mls/hr Documented by: Insulin Aspart (Novolog Vial Sliding Scale -) 1 vial SQ [facility]; Protocol Last Admin: 12/06/19 16:54 Dose: 2 units Documented by: Lidocaine (Lidoderm Patch -) 2 patch TP DAILY [facility] Last Admin: 12/06/19 09:49 Dose: 2 patch Documented by: Miscellaneous (Lidoderm Patch Removal) 2 each MC DAILY@2200 [facility] Last Admin: 12/05/19 21:23 Dose: 2 each Documented by: Ondansetron HCl (Zofran Injection) 4 mg IVPUSH Q6H PRN PRN Reason: NAUSEA AND/OR VOMITING Oxycodone HCl (Roxicodone -) 5 mg PO Q4H PRN PRN Reason: PAIN LEVEL 6-10 Pantoprazole Sodium (Protonix -) 40 mg PO ACBK [facility] Last Admin: 12/06/19 06:01 Dose: 40 mg Documented by: Sodium Zirconium Cyclosilicate (Lokelma) 10 gm PO DAILY [facility] Last Admin: 12/05/19 09:35 Dose: 10 gm Documented by: - Objective Vital Signs: Vital Signs Temperature 97.7 F 12/06/19 14:32 Pulse Rate 73 12/06/19 14:32 Respiratory Rate 20 12/06/19 14:32 Blood Pressure 135/57 L 12/06/19 14:32 O2 Sat by Pulse Oximetry (%) 97 12/06/19 09:00 Constitutional: Yes: No Distress, Calm Eyes: Yes: Conjunctiva Clear, EOM Intact HENT: Yes: Atraumatic, Normocephalic Neck: Yes: Supple, Trachea Midline Cardiovascular: Yes: Regular Rate and Rhythm, S1, S2 Respiratory: Yes: Regular, CTA Bilaterally, On Nasal O2, SOB on Exertion. No: SOB, Wheezes Gastrointestinal: Yes: Normal Bowel Sounds, Soft. No: Hepatomegaly, Sp lenomegaly Genitourinary: Yes: Hematuria Extremities: No: Calf Tenderness Edema: No Peripheral Pulses WNL: Yes Wound/Incision: Yes: Well Approximated, Dressing Dry and Intact Neurological: Yes: Alert, Oriented Psychiatric: Yes: Alert, Oriented Labs: CBC, BMP 12/06/19 09:55 12/06/19 09:55 INR, PTT INR 1.13 (0.83-1.09) H 11/29/19 07:58 Problem List - Problems (1) Hematuria Assessment/Plan: PSA is still pending transfused 2 u PRBC urine culture was negative Urology consult Code(s): R31.9 - HEMATURIA, UNSPECIFIED (2) Thrombocytopenia Assessment/Plan: persisting Hematology consultation Code(s): D69.6 - THROMBOCYTOPENIA, UNSPECIFIED (3) CKD (chronic kidney disease) Assessment/Plan: AKD/CKD encouraged po fluids continue iv hydration monitor CMP Code(s): N18.9 - CHRONIC KIDNEY DISEASE, UNSPECIFIED Qualifiers: Chronic kidney disease stage: stage 3 (moderate) Qualified Code(s): N18.3 - Chronic kidney disease, stage 3 (moderate) (4) Diabetes 1.5, managed as type 2 Assessment/Plan: regular insulin coverage Code(s): E10.9 - TYPE 1 DIABETES MELLITUS WITHOUT COMPLICATIONS (5) Closed right hip fracture Assessment/Plan: tolerated well Gamma nail placement off anticoagulation Lidoderm patches # 2 to the right hip Oxycodone 5 mg every 4 hours as needed Code(s): S72.001A - FRACTURE OF UNSP PART OF NECK OF RIGHT FEMUR, INIT Qualifiers: Encounter type: initial encounter Qualified Code(s): S72.001A - Fracture of unspecified part of neck of right femur, initial encounter for closed fracture (6) Atrial fibrillation Assessment/Plan: chronic, rhythm is controlled Eliquis is on hold Code(s): I48.91 - UNSPECIFIED ATRIAL FIBRILLATION Qualifiers: Atrial fibrillation type: paroxysmal Qualified Code(s): I48.0 - Paroxysmal atrial fibrillation (7) CHF (congestive heart failure) Assessment/Plan: gentle hydration due to elevated BUN will continue hydration with 1/2 NS, until po intake will improve Code(s): I50.9 - HEART FAILURE, UNSPECIFIED Qualifiers: Heart failure type: combined systolic and diastolic Heart failure chronicity: chronic Qualified Code(s): I50.42 - Chronic combined systolic (congestive) and diastolic (congestive) heart failure (8) Coronary artery disease Assessment/Plan: had no complications during surgery off anticoagulation Code(s): I25.10 - ATHSCL HEART DISEASE OF [place] CORONARY ARTERY W/O ANG PCTRS Qualifiers: Coronary Disease-Associated Artery/Lesion type: [place] artery [place] vs. transplanted heart: [place] heart Associated angina: without angina Qualified Code(s): I25.10 - Atherosclerotic heart disease of [place] coronary artery without angina pectoris
[2019-12-06] MEDS: oxyCODONE HCL 5 MG TABLET PO PRN (17:34)
[2019-12-06] MEDS: SODIUM CHLORIDE 0.45% 1,000 ML IV SCH ×2 (17:35→21:11)
[2019-12-06] MEDS: LIDOCAINE PATCH REMOVAL MC SCH (21:45)
[2019-12-06] MEDS: DOCUSATE SODIUM 100 MG CAPSULE (FP) PO SCH (21:45)
[2019-12-06] MEDS: ATORVASTATIN CA 80 MG TABLET (FP) PO SCH (21:45)
--- NOTE | 2019-12-07 02:51 | CONSULT ---
Consult - text type - Consultation Consultation Note: Pt us a 74 year old male with pmhx of htn, dm, hld, anxiety, depression, cad, chf, ckd, a-fib who presented to the ER after a fall. He was found to have a right intertrochanteric fracture---s/p ORIF on 11/28. We have been consulted regarding thrombocytopenia COVID neg. Patient with ?? 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: Peripheral Neuropathy Cardio/Vascular: Yes: AFIB, CAD (prior anterolateral [place] 03/1995 w/ PCI of LAD & ramus, PCI of LAD 05/1996 (with 100% occluded ramus and patent RCA), rotoblator & PCI w/ Xience stent prox LAD & prox/mid Cfx 07/30/16), CHF, Hyperlipdemia, [place] (anterolateral [place] 1994), Other (CHF) Pulmonary: Yes: O2 Dependent, Pneumonia (03/2016), Other (Chronic right pleural effusion S/p VATS procedure) Gastrointestinal: Yes: GERD Renal/: Yes: Renal Inusuff, BPH, Renal Calculi Psych: Yes: Anxiety, Depression Musculoskeletal: Yes: Osteoarthritis Rheumatology: Yes: Gout Endocrine: Yes: Diabetes Mellitus (with peripheral neuropathy), Other (Hypo gonadism, nodular goiter) - Past Surgical History Past Surgical History: Yes: Cataract Removal (bilateral), Hernia Repair (umbillical) - Smoking History Smoking history: Former smoker - Social History ADL: Independent Home Medications - Allergies Allergies/Adverse Reactions: Allergies Allergy/AdvReac Type Severity Reaction Status Date / Time pioglitazone HCl [From Actos] Allergy Severe CHF Verified 11/25/19 13:46 - Home Medications Home Medications: Ambulatory Orders Cholecalciferol (Vitamin D3) [Vitamin D3 -] 1,000 unit PO DAILY 07/27/19 Ferrous Sulfate [Iron] 325 mg PO DAILY 07/27/19 Folic Acid 1 mg PO DAILY 07/27/19 Furosemide 40 mg PO DAILY 07/27/19 Isosorbide Mononitrate [Isosorbide Mononitrate ER] 30 mg PO BID 07/27/19 Allopurinol [Zyloprim -] 100 mg PO DAILY tablet 07/30/19 Carvedilol [Coreg -] 25 mg PO BID tablet 07/30/19 Glipizide [Glucotrol -] 5 mg PO BID@0700,1630 tablet 07/30/19 Alprazolam [Xanax] 0.25 mg PO DAILY PRN 7 Days #60 tablet MDD 2 08/15/19 Apixaban [Eliquis -] 2.5 mg PO BID 90 Days #180 tablet 08/15/19 Atorvastatin Ca [Lipitor] 80 mg PO HS tablet 08/15/19 Docusate Sodium [Colace -] 300 mg PO HS capsule 08/15/19 Pantoprazole Sodium [Protonix -] 20 mg PO DAILY tablet.ec 08/15/19 hydrALAZINE HCL [Apresoline -] 25 mg PO TID #0 tablet 08/15/19 Cyproheptadine [Periactin -] 4 mg PO HS 10/28/19 Escitalopram Oxalate [Lexapro -] 10 mg PO DAILY 10/28/19 Nitroglycerin Sublingual [Nitrostat -] 0.4 mg SL PRN PRN 10/28/19 Allopurinol [Zyloprim -] 100 mg PO DAILY tablet 10/30/19 Alprazolam [Xanax] 0.25 mg PO Q12H PRN tablet 10/30/19 Apixaban [Eliquis -] 2.5 mg PO BID tablet 10/30/19 Atorvastatin Ca [Lipitor] 80 mg PO HS tablet 10/30/19 Carvedilol [Coreg -] 25 mg PO BID tablet 10/30/19 Escitalopram Oxalate [Lexapro -] 20 mg PO DAILY tablet 10/30/19 Family Medical History Family History: Denies Physical Exam Vital Signs: AFVSS Labs: CBC, BMP 11/25/19 12:55 11/25/19 12:55 Laboratory Tests 11/25/19 11/25/19 12:55 13:50 Sodium 145 Potassium 5.4 H BUN 79.5 H Creatinine 2.5 H COVID-19 (YUAN) Pending Imaging - Results Chest X-ray: Report Reviewed X-ray: Report Reviewed Cat Scan: Report Reviewed Impression 1. CKD with acute component 2. hx CHF 3. CAD 4. DM 5. HTN 6. hyperlipidemia 7. BPH 8. pleural effusions 11. right femur fracture Thrombocytopenia : suspect due to ? consumption /? CHF chronic , intermittent ? marrow pathology ? MDS Monitor ? goals of care / invasiveness of work up transfuse to keep platelets > 50,000 due to ongoing hematuria f/u urology consult for hematuria
[2019-12-07] MEDS: INSULIN SLIDING SCALE (NOVOLOG) 1 VIAL SQ SCH ×4 (06:01→22:43)
[2019-12-07] MEDS: PANTOPRAZOLE 40 MG TABLET PO SCH (06:01)
[2019-12-07 08:25] LABS: BASO % 0.5 % (0-2.0); EOS % 2.2 % (0-4.5); HEMATOCRIT 26.9 % (35.4-49); HEMOGLOBIN 8.9 GM/dL (11.7-16.9); LYMPH % 13.4 % (8-40); MCH 31.7 pg (25.7-33.7); MCHC 33.2 g/dl (32.0-35.9); MEAN CELL VOLUME 95.5 fl (80-96); MONO % 10.5 % (3.8-10.2); NEUT % 73.4 % (42.8-82.8); PLATELET COUNT 103 K/MM3 (134-434); RBC 2.81 M/mm3 (4.00-5.60); RDW 17.2 % (11.9-15.9); WHITE BLOOD COUNT 4.4 K/mm3 (4.0-10.0)
[2019-12-07 08:42] LABS: ALBUMIN 1.8 g/dl (3.4-5.0); ALK PHOS 65 U/L (45-117); ANION GAP 9 MMOL/L (8-16); BILIRUBIN,TOTAL 1.1 mg/dL (0.2-1); CALCIUM 7.6 mg/dL (8.5-10.1); CHLORIDE 107 mmol/L (98-107); CO2 20 mmol/L (21-32); CREATININE 2.7 mg/dL (0.55-1.3); GLUCOSE,RANDOM 131 mg/dL (74-106); POTASSIUM 4.2 mmol/L (3.5-5.1); SGOT/AST 8 U/L (15-37); SODIUM 136 mmol/L (136-145); TOT PROT 5.2 g/dl (6.4-8.2)
[2019-12-07 08:46] LABS: SGPT/ALT < 6 U/L (13-61)
[2019-12-07 08:49] LABS: BLOOD UREA NITROGEN 106.8 mg/dL (7-18)
[2019-12-07] MEDS: ALLOPURINOL 100 MG TABLET (FP) PO SCH (09:07)
[2019-12-07] MEDS: oxyCODONE HCL 5 MG TABLET PO PRN ×2 (09:07→13:59)
[2019-12-07] MEDS: LIDOCAINE 5% TOPICAL PATCH TP SCH (09:07)
[2019-12-07] MEDS: hydrALAZINE HCL 25 MG TABLET (FP) PO SCH ×2 (09:07→22:08)
[2019-12-07] MEDS: CARVEDILOL 25 MG TABLET (FP) PO SCH ×2 (09:07→22:08)
[2019-12-07] MEDS: ESCITALOPRAM OXALATE 10 MG TABLET PO SCH (09:07)
--- NOTE | 2019-12-07 10:28 | PN ---
Progress Note, E[employer]GL[employer]TER - Note Progress Note: Selected Entries 12/03/19 12/03/19 12/04/19 10:20 23:00 10:09 Breakfast 25% 25% Diet Tolerated Poor Lunch 25% Supper 25% Temperature Temperature Source Pulse Rate Respiratory Rate Blood Pressure Blood Pressure Mean Blood Pressure Position O2 Sat by Pulse Oximetry (%) 12/04/19 12/05/19 12/05/19 21:18 09:40 21:46 Breakfast 0 Diet Tolerated Lunch 25% Supper 25% 50% Temperature Temperature Source Pulse Rate Respiratory Rate Blood Pressure Blood Pressure Mean Blood Pressure Position O2 Sat by Pulse Oximetry (%) 12/06/19 12/06/19 12/06/19 06:42 09:00 10:00 Breakfast Diet Tolerated Lunch Supper Temperature 98.2 F 98.4 F Temperature Oral Oral Source Pulse Rate 75 72 Respiratory 20 20 Rate Blood Pressure 128/55 L 140/57 L Blood Pressure 84 96 Mean Blood Pressure Supine Supine Position O2 Sat by Pulse 97 Oximetry (%) Laboratory Tests 12/06/19 09:55 WBC 4.6 Pt c/o not feeling well, needing "more medication". Nursing aware. On regular Diabetic/low sodium diet Thin liquids Nepro daily Poor po intake BUN High Encourage PO hydration/Nepro
[2019-12-07] MEDS: SODIUM ZIRCONIUM CYCLOSILICATE (LOKELMA) 10 GM PACKET PO SCH (11:36)
--- NOTE | 2019-12-07 13:21 | PN ---
Physical Exam: SUBJECTIVE: Patient seen and examined. Pt. endorses Left leg pain. Pt. denies any numbness tingling in extremities. Pt. states he is hard of hearing. Poor PO intake. OBJECTIVE: Vital Signs Period Temp Pulse Resp BP Sys/Desai Pulse Ox Last 24 Hr 97.7 F-98.9 F 73-78 20-20 124-135/54-58 97-98 GENERAL: The patient is awake, alert, and fully oriented, in moderate acute distress 2/2 pain. HEAD: Normal with no signs of trauma. EYES: Extraocular movements intact, sclera anicteric, conjunctiva clear. ENT: Dry Mucous membranes LUNGS: Breath sounds equal, clear to auscultation bilaterally anteriorly, no wheezes, no crackles, no accessory muscle use. HEART: Regular rate and rhythm, S1, S2 without murmur ABDOMEN: Soft, nontender, nondistended, normoactive bowel sounds, no guarding, no rebound, Seaman draining muddy brown urine. EXTREMITIES: 2+ dorsal pedal pulses, warm, well-perfused, no edema. NEUROLOGICAL: No focal deficits. Gait not assessed. PSYCH: Normal mood, normal affect. SKIN: Warm, dry, normal turgor Laboratory Results - last 24 hr 12/03/19 12/04/19 12/06/19 09:54 08:45 16:32 WBC RBC Hgb Hct MCV MCH MCHC RDW Plt Count MPV Absolute Neuts (auto) Neutrophils % Lymphocytes % Monocytes % Eosinophils % Basophils % Nucleated RBC % Sodium Potassium Chloride Carbon Dioxide Anion Gap BUN Creatinine Est GFR (CKD-EPI)AfAm Est GFR (CKD-EPI)NonAf POC Glucometer 177 Random Glucose Calcium Total Bilirubin AST ALT Alkaline Phosphatase Total Protein Albumin Prostate Specific Ag 0.60 Blood Type O NEGATIVE Antibody Screen Negative Crossmatch See Detail 12/06/19 12/07/19 12/07/19 21:47 05:35 06:00 WBC RBC Hgb Hct MCV MCH MCHC RDW Plt Count MPV Absolute Neuts (auto) Neutrophils % Lymphocytes % Monocytes % Eosinophils % Basophils % Nucleated RBC % Sodium 136 Potassium 4.2 Chloride 107 Carbon Dioxide 20 L Anion Gap 9 BUN 106.8 H* Creatinine 2.7 H Est GFR (CKD-EPI)AfAm 25.39 Est GFR (CKD-EPI)NonAf 21.90 POC Glucometer 164 139 Random Glucose 131 H Calcium 7.6 L Total Bilirubin 1.1 H AST 8 L ALT < 6 L Alkaline Phosphatase 65 Total Protein 5.2 L Albumin 1.8 L Prostate Specific Ag Blood Type Antibody Screen Crossmatch 12/07/19 12/07/19 07:10 11:13 WBC 4.4 RBC 2.81 L Hgb 8.9 L Hct 26.9 L MCV 95.5 MCH 31.7 MCHC 33.2 RDW 17.2 H Plt Count 103 L MPV 9.0 Absolute Neuts (auto) 3.2 Neutrophils % 73.4 Lymphocytes % 13.4 Monocytes % 10.5 H Eosinophils % 2.2 D Basophils % 0.5 Nucleated RBC % 0 Sodium Potassium Chloride Carbon Dioxide Anion Gap BUN Creatinine Est GFR (CKD-EPI)AfAm Est GFR (CKD-EPI)NonAf POC Glucometer 173 Random Glucose Calcium Total Bilirubin AST ALT Alkaline Phosphatase Total Protein Albumin Prostate Specific Ag Blood Type Antibody Screen Crossmatch Active Medications Generic Name Dose Route Start Last Admin Trade Name Freq PRN Reason Stop Dose Admin Acetaminophen 325 mg 11/25/19 22:28 12/05/19 21:22 Tylenol - PO 325 mg Q4H PRN Administration PAIN LEVEL 6-10 Allopurinol 100 mg 11/26/19 10:00 12/07/19 09:07 Zyloprim - PO 100 mg DAILY MARY Administration Atorvastatin Calcium 80 mg 11/26/19 22:00 12/06/19 21:45 Lipitor - PO 80 mg HS MARY Administration Carvedilol 25 mg 11/25/19 22:45 12/07/19 09:07 Coreg - PO 25 mg BID MARY Administration Docusate Sodium 100 mg 11/26/19 22:00 12/06/19 21:45 Colace - PO 100 mg HS MARY Administration Escitalopram Oxalate 10 mg 11/26/19 10:00 12/07/19 09:07 Lexapro - PO 10 mg DAILY MARY Administration Hydralazine HCl 25 mg 11/28/19 11:18 12/07/19 09:07 Apresoline - PO 25 mg BID MARY Administration Sodium Chloride 1,000 mls @ 75 mls/hr 12/02/19 18:46 12/06/19 21:11 1/2 Normal Saline IV Not Given ASDIR MARY Insulin Aspart 1 vial 11/26/19 07:00 12/07/19 11:36 Novolog Vial Sliding Scale - SQ 2 units ACHS MARY Administration Protocol Lidocaine 2 patch 12/01/19 10:00 12/07/19 09:07 Lidoderm Patch - TP 2 patch DAILY MARY Administration Miscellaneous 2 each 11/28/19 11:20 12/06/19 21:45 Lidoderm Patch Removal MC 2 each DAILY@2200 MARY Administration Ondansetron HCl 4 mg 11/29/19 14:08 Zofran Injection IVPUSH Q6H PRN NAUSEA AND/OR VOMITING Oxycodone HCl 5 mg 12/06/19 17:23 12/07/19 09:07 Roxicodone - PO 5 mg Q4H PRN Administration PAIN LEVEL 6-10 Pantoprazole Sodium 40 mg 12/02/19 07:15 12/07/19 06:01 Protonix - PO 40 mg ACBK MARY Administration Sodium Zirconium Cyclosilicate 10 gm 11/29/19 10:00 12/07/19 11:36 Lokelma PO Not Given DAILY MARY ASSESSMENT/PLAN: Pt. is a 74 y.o. M w/ PMHx. 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 Hematuria is persisting. #CKD with acute component #Hx. CHF #CAD #DM #HTN #hyperlipidemia #BPH #Pleural effusions #Right femur fracture Thrombocytopenia : suspect due to ? consumption /? CHF, may be 2/2 occult liver disease and CKD component anemia likely 2/2 to CKD and hematuria chronic, intermittent ? marrow pathology ? MDS Monitor ? goals of care / invasiveness of work up transfuse to keep platelets > 50,000 due to ongoing hematuria f/u urology consult for hematuria f/u Nephrology consult for CKD, maintained on IVF for decreased PO intake and SPIKE. Visit type - Emergency Visit Emergency Visit: Yes ED Registration Date: 11/25/19 Care time: The patient presented to the Emergency Department on the above date and was hospitalized for further evaluation of their emergent condition. - New Patient This patient is new to me today: No - Critical Care Critical Care patient: No - Discharge Referral Referred to [facility] Med P.C[facility] No ATTENDING PHYSICIAN STATEMENT I saw and evaluated the patient. I reviewed the resident's note and discussed the case with the resident. I agree with the resident's findings and plan as documented. SUBJECTIVE: OBJECTIVE: ASSESSMENT AND PLAN:
[2019-12-07] MEDS ORDERED: morphine SULFATE 4 MG/ML VIAL IVPUSH ONE (13:22)
--- NOTE | 2019-12-07 13:29 | PN ---
Progress Note, Physician Chief Complaint: Events noted No events overnight History of Present Illness: Patient was seen and examined. Awake and alert. Chart was reviewed Denies chest pain, SOB or palpitations - Current Medication List Current Medications: Active Medications Acetaminophen (Tylenol -) 325 mg PO Q4H PRN PRN Reason: PAIN LEVEL 6-10 Last Admin: 12/05/19 21:22 Dose: 325 mg Documented by: Allopurinol (Zyloprim -) 100 mg PO DAILY [facility] Last Admin: 12/07/19 09:07 Dose: 100 mg Documented by: Atorvastatin Calcium (Lipitor -) 80 mg PO [facility] Last Admin: 12/06/19 21:45 Dose: 80 mg Documented by: Carvedilol (Coreg -) 25 mg PO BID [facility] Last Admin: 12/07/19 09:07 Dose: 25 mg Documented by: Docusate Sodium (Colace -) 100 mg PO [facility] Last Admin: 12/06/19 21:45 Dose: 100 mg Documented by: Escitalopram Oxalate (Lexapro -) 10 mg PO DAILY [facility] Last Admin: 12/07/19 09:07 Dose: 10 mg Documented by: Hydralazine HCl (Apresoline -) 25 mg PO BID [facility] Last Admin: 12/07/19 09:07 Dose: 25 mg Documented by: Sodium Chloride (1/2 Normal Saline) 1,000 mls @ 75 mls/hr IV ASDIR [facility] Last Admin: 12/06/19 21:11 Dose: Not Given Documented by: Insulin Aspart (Novolog Vial Sliding Scale -) 1 vial SQ [facility]; Protocol Last Admin: 12/07/19 11:36 Dose: 2 units Documented by: Lidocaine (Lidoderm Patch -) 2 patch TP DAILY [facility] Last Admin: 12/07/19 09:07 Dose: 2 patch Documented by: Miscellaneous (Lidoderm Patch Removal) 2 each MC DAILY@2200 [facility] Last Admin: 12/06/19 21:45 Dose: 2 each Documented by: Ondansetron HCl (Zofran Injection) 4 mg IVPUSH Q6H PRN PRN Reason: NAUSEA AND/OR VOMITING Oxycodone HCl (Roxicodone -) 5 mg PO Q4H PRN PRN Reason: PAIN LEVEL 6-10 Last Admin: 12/07/19 09:07 Dose: 5 mg Documented by: Pantoprazole Sodium (Protonix -) 40 mg PO ACBK [facility] Last Admin: 12/07/19 06:01 Dose: 40 mg Documented by: Sodium Zirconium Cyclosilicate (Lokelma) 10 gm PO DAILY [facility] Last Admin: 12/07/19 11:36 Dose: Not Given Documented by: - Objective Vital Signs: Vital Signs Temperature 98.5 F 12/07/19 09:00 Pulse Rate 73 12/07/19 09:00 Respiratory Rate 20 12/07/19 09:00 Blood Pressure 130/57 L 12/07/19 09:00 O2 Sat by Pulse Oximetry (%) 98 12/07/19 09:00 Neck: Yes: Supple Cardiovascular: Yes: Pulse Irregular, S1, S2 Respiratory: Yes: Diminished Gastrointestinal: Yes: Normal Bowel Sounds, Soft. No: Tenderness Edema: No Labs: CBC, BMP 12/07/19 07:10 12/07/19 06:00 Problem List - Problems (1) Closed right hip fracture Code(s): S72.001A - FRACTURE OF UNSP PART OF NECK OF RIGHT FEMUR, INIT Qualifiers: Qualified Code(s): S72.001A - Fracture of unspecified part of neck of right femur, initial encounter for closed fracture (2) Acute on chronic systolic and diastolic heart failure, NYHA class 2 Code(s): I50.43 - ACUTE ON CHRONIC COMBINED SYSTOLIC AND DIASTOLIC HRT FAIL (3) [id number] kidney injury Code(s): N17.9 - ACUTE KIDNEY FAILURE, UNSPECIFIED; N18.9 - CHRONIC KIDNEY DISEASE, UNSPECIFIED (4) Anemia Code(s): D64.9 - ANEMIA, UNSPECIFIED (5) Atrial fibrillation Code(s): I48.91 - UNSPECIFIED ATRIAL FIBRILLATION Qualifiers: Qualified Code(s): I48.0 - Paroxysmal atrial fibrillation (6) Diabetes mellitus Code(s): E11.9 - TYPE 2 DIABETES MELLITUS WITHOUT COMPLICATIONS (7) Diastolic dysfunction without heart failure Code(s): I51.89 - OTHER ILL-DEFINED HEART DISEASES (8) S/P coronary artery stent placement Code(s): Z95.5 - PRESENCE OF CORONARY ANGIOPLASTY IMPLANT AND GRAFT (9) CAD (coronary artery disease) Code(s): I25.10 - ATHSCL HEART DISEASE OF [place] CORONARY ARTERY W/O ANG PCTRS Qualifiers: Qualified Code(s): I25.10 - Atherosclerotic heart disease of [place] coronary artery without angina pectoris (10) HTN (hypertension) Code(s): I10 - ESSENTIAL (PRIMARY) HYPERTENSION Qualifiers: Qualified Code(s): I10 - Essential (primary) hypertension (11) Hyperlipidemia Code(s): E78.5 - HYPERLIPIDEMIA, UNSPECIFIED Qualifiers: Qualified Code(s): E78.00 - Pure hypercholesterolemia, unspecified; E78.0 - Pure hypercholesterolemia Assessment/Plan 1. Post right femur gamma nail insertion 2. Coronary artery disease post percutaneous coronary intervention angina pectoris 3. Diastolic left ventricular dysfunction with clinical class 0 [place] Heart [employer] classification left ventricular failure 4. Persistent atrial fibrillation off chronic anticoagulation therapy with DOA post-op 5. Hypertensive vascular disease 6. Diabetes mellitus 7. Acute on chronic kidney disease 8. Anemia and thrombocytopenia PLAN: 1. Pain management 2. Resume Eliquis once hemostasis is achieved/cleared by orthopedic surgery, still not restarted 3. Continue Coreg 25 mg BID, Hydralazine 25 mg BID and Lipitor 80 mg QHS 4. Gentle hydration and monitor renal function and electrolytes. Rigoberto 5. PT Patient is to follow-up with his award clerk Dr. Beau Chacon upon discharge Dannie Coon MD
[2019-12-07] MEDS: ACETAMINOPHEN 325 MG TABLET (FP) PO PRN (13:57)
[2019-12-07] MEDS ORDERED: MAGNESIUM HYDROX 2400MG/30ML ORAL SUSPENSION 30 ML CUP PO ONE (16:41)
--- NOTE | 2019-12-07 16:45 | PN ---
Progress Note, Physician Chief Complaint: PAtient is awake but fall asleep while I am talking to him, his right hip pain is better. 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 Hematuria is persisting and his kidney function is not better. - Current Medication List Current Medications: Active Medications Acetaminophen (Tylenol -) 325 mg PO Q4H PRN PRN Reason: PAIN LEVEL 6-10 Last Admin: 12/07/19 13:57 Dose: 325 mg Documented by: Allopurinol (Zyloprim -) 100 mg PO DAILY [facility] Last Admin: 12/07/19 09:07 Dose: 100 mg Documented by: Atorvastatin Calcium (Lipitor -) 80 mg PO [facility] Last Admin: 12/06/19 21:45 Dose: 80 mg Documented by: Carvedilol (Coreg -) 25 mg PO BID [facility] Last Admin: 12/07/19 09:07 Dose: 25 mg Documented by: Docusate Sodium (Colace -) 100 mg PO [facility] Last Admin: 12/06/19 21:45 Dose: 100 mg Documented by: Docusate Sodium (Colace -) 300 mg PO [facility] Escitalopram Oxalate (Lexapro -) 10 mg PO DAILY [facility] Last Admin: 12/07/19 09:07 Dose: 10 mg Documented by: Hydralazine HCl (Apresoline -) 25 mg PO BID [facility] Last Admin: 12/07/19 09:07 Dose: 25 mg Documented by: Sodium Chloride (1/2 Normal Saline) 1,000 mls @ 75 mls/hr IV ASDIR [facility] Last Admin: 12/06/19 21:11 Dose: Not Given Documented by: Insulin Aspart (Novolog Vial Sliding Scale -) 1 vial SQ ACHS [facility]; Protocol Last Admin: 12/07/19 11:36 Dose: 2 units Documented by: Lidocaine (Lidoderm Patch -) 2 patch TP DAILY [facility] Last Admin: 12/07/19 09:07 Dose: 2 patch Documented by: Miscellaneous (Lidoderm Patch Removal) 2 each MC DAILY@2200 [facility] Last Admin: 12/06/19 21:45 Dose: 2 each Documented by: Ondansetron HCl (Zofran Injection) 4 mg IVPUSH Q6H PRN PRN Reason: NAUSEA AND/OR VOMITING Oxycodone HCl (Roxicodone -) 5 mg PO Q8H MARY Pantoprazole Sodium (Protonix -) 40 mg PO ACBK [facility] Last Admin: 12/07/19 06:01 Dose: 40 mg Documented by: Sodium Zirconium Cyclosilicate (Lokelma) 10 gm PO DAILY [facility] Last Admin: 12/07/19 11:36 Dose: Not Given Documented by: - Objective Vital Signs: Vital Signs Temperature 97.8 F 12/07/19 14:47 Pulse Rate 73 12/07/19 14:47 Respiratory Rate 12/07/19 14:47 Blood Pressure 128/57 L 12/07/19 14:47 O2 Sat by Pulse Oximetry (%) 98 12/07/19 09:00 Constitutional: Yes: No Distress Eyes: Yes: Conjunctiva Clear, EOM Intact Cardiovascular: Yes: Regular Rate and Rhythm, S1, S2 Respiratory: Yes: On Nasal O2 Gastrointestinal: Yes: Normal Bowel Sounds, Soft. No: Hepatomegaly, Splenomegaly Edema: No Peripheral Pulses WNL: Yes Wound/Incision: Yes: Dressing Dry and Intact Neurological: Yes: Alert Psychiatric: Yes: Alert, Oriented Labs: CBC, BMP 12/07/19 07:10 12/07/19 06:00 INR, PTT INR 1.13 (0.83-1.09) H 11/29/19 07:58 Problem List - Problems (1) Hematuria Assessment/Plan: possible combination of cystitis and renal origin PSA is WNL r Code(s): R31.9 - HEMATURIA, UNSPECIFIED (2) Thrombocytopenia Assessment/Plan: platelets count continues to improve Hematology consultation appreciated platelet counts Code(s): D69.6 - THROMBOCYTOPENIA, UNSPECIFIED (3) CKD (chronic kidney disease) Assessment/Plan: AKD/CKD encouraged po fluids continue iv hydration monitor CMP Code(s): N18.9 - CHRONIC KIDNEY DISEASE, UNSPECIFIED Qualifiers: Chronic kidney disease stage: stage 3 (moderate) Qualified Code(s): N18.3 - Chronic kidney disease, stage 3 (moderate) (4) Diabetes 1.5, managed as type 2 Assessment/Plan: regular insulin coverage Code(s): E10.9 - TYPE 1 DIABETES MELLITUS WITHOUT COMPLICATIONS (5) Closed right hip fracture Assessment/Plan: tolerated well Gamma nail placement restarted Elliquis anticoagulation Lidoderm patches # 2 to the right hip Oxycodone 5 mg every 6 hours as needed Code(s): S72.001A - FRACTURE OF UNSP PART OF NECK OF RIGHT FEMUR, INIT Qualifiers: Encounter type: initial encounter Qualified Code(s): S72.001A - Fracture of unspecified part of neck of right femur, initial encounter for closed fracture (6) Atrial fibrillation Assessment/Plan: chronic, rhythm is controlled Eliquis restarted Code(s): I48.91 - UNSPECIFIED ATRIAL FIBRILLATION Qualifiers: Atrial fibrillation type: paroxysmal Qualified Code(s): I48.0 - Paroxysmal atrial fibrillation (7) CHF (congestive heart failure) Assessment/Plan: there are clinical signs of exacerbation and hydration was stopped po intake continues to be poor Code(s): I50.9 - HEART FAILURE, UNSPECIFIED Qualifiers: Heart failure type: combined systolic and diastolic Heart failure chronicity: chronic Qualified Code(s): I50.42 - Chronic combined systolic (congestive) and diastolic (congestive) heart failure (8) Coronary artery disease Assessment/Plan: had no complications during surgery stable at this moment Code(s): I25.10 - ATHSCL HEART DISEASE OF [place] CORONARY ARTERY W/O ANG PCTRS Qualifiers: Coronary Disease-Associated Artery/Lesion type: [place] artery [place] vs. transplanted heart: [place] heart Associated angina: without angina Qualified Code(s): I25.10 - Atherosclerotic heart disease of [place] coronary artery without angina pectoris
[2019-12-07] MEDS: oxyCODONE HCL 5 MG TABLET PO SCH (17:03)
[2019-12-07] MEDS: SODIUM CHLORIDE 0.45% 1,000 ML IV SCH (17:58)
[2019-12-07] MEDS ORDERED: SODIUM CHLORIDE 0.45% 1,000 ML IV SCH (20:57)
--- NOTE | 2019-12-07 20:57 | PN ---
Progress Note, Physician History of Present Illness: Pt seen and examined at bedside. He still has poor po intake. - Current Medication List Current Medications: Active Medications Acetaminophen (Tylenol -) 325 mg PO Q4H PRN PRN Reason: PAIN LEVEL 6-10 Last Admin: 12/07/19 13:57 Dose: 325 mg Documented by: Allopurinol (Zyloprim -) 100 mg PO DAILY [facility] Last Admin: 12/07/19 09:07 Dose: 100 mg Documented by: Atorvastatin Calcium (Lipitor -) 80 mg PO [facility] Last Admin: 12/06/19 21:45 Dose: 80 mg Documented by: Carvedilol (Coreg -) 25 mg PO BID [facility] Last Admin: 12/07/19 09:07 Dose: 25 mg Documented by: Docusate Sodium (Colace -) 300 mg PO [facility] Escitalopram Oxalate (Lexapro -) 10 mg PO DAILY [facility] Last Admin: 12/07/19 09:07 Dose: 10 mg Documented by: Hydralazine HCl (Apresoline -) 25 mg PO BID [facility] Last Admin: 12/07/19 09:07 Dose: 25 mg Documented by: Sodium Chloride (1/2 Normal Saline) 1,000 mls @ 75 mls/hr IV ASDIR [facility] Last Admin: 12/07/19 17:58 Dose: 75 mls/hr Documented by: Insulin Aspart (Novolog Vial Sliding Scale -) 1 vial SQ [facility]; Protocol Last Admin: 12/07/19 17:04 Dose: 2 units Documented by: Lidocaine (Lidoderm Patch -) 2 patch TP DAILY [facility] Last Admin: 12/07/19 09:07 Dose: 2 patch Documented by: Miscellaneous (Lidoderm Patch Removal) 2 each MC DAILY@2200 [facility] Last Admin: 12/06/19 21:45 Dose: 2 each Documented by: Ondansetron HCl (Zofran Injection) 4 mg IVPUSH Q6H PRN PRN Reason: NAUSEA AND/OR VOMITING Oxycodone HCl (Roxicodone -) 5 mg PO Q8H [facility] Last Admin: 12/07/19 17:03 Dose: 5 mg Documented by: Pantoprazole Sodium (Protonix -) 40 mg PO ACBK [facility] Last Admin: 12/07/19 06:01 Dose: 40 mg Documented by: Sodium Zirconium Cyclosilicate (Lokelma) 10 gm PO DAILY [facility] Last Admin: 12/07/19 11:36 Dose: Not Given Documented by: - Objective Vital Signs: Vital Signs Temperature 98.3 F 12/07/19 18:00 Pulse Rate 69 12/07/19 18:00 Respiratory Rate 20 12/07/19 18:00 Blood Pressure 117/55 L 12/07/19 18:00 O2 Sat by Pulse Oximetry (%) 98 12/07/19 09:00 Constitutional: Yes: Calm Eyes: Yes: Conjunctiva Clear HENT: Yes: Atraumatic Cardiovascular: Yes: S1, S2 Respiratory: Yes: CTA Bilaterally Gastrointestinal: Yes: Soft Genitourinary: Yes: WNL Musculoskeletal: Yes: Muscle Weakness Edema: No Neurological: Yes: Oriented Labs: CBC, BMP 12/07/19 07:10 12/07/19 06:00 INR, PTT INR 1.13 (0.83-1.09) H 11/29/19 07:58 Problem List - Problems (1) CKD (chronic kidney disease) Code(s): N18.9 - CHRONIC KIDNEY DISEASE, UNSPECIFIED Qualifiers: Chronic kidney disease stage: stage 3 (moderate) Qualified Code(s): N18.3 - Chronic kidney disease, stage 3 (moderate) (2) Hyperkalemia Code(s): E87.5 - HYPERKALEMIA (3) Acute kidney failure Code(s): N17.9 - ACUTE KIDNEY FAILURE, UNSPECIFIED Qualifiers: Acute renal failure type: with other specified pathological lesion Qualified Code(s): N17.8 - Other acute kidney failure (4) CHF (congestive heart failure) Code(s): I50.9 - HEART FAILURE, UNSPECIFIED Qualifiers: Heart failure type: combined systolic and diastolic Heart failure chronicity: chronic Qualified Code(s): I50.42 - Chronic combined systolic (congestive) and diastolic (congestive) heart failure (5) HTN (hypertension) Code(s): I10 - ESSENTIAL (PRIMARY) HYPERTENSION Qualifiers: Hypertension type: essential hypertension Qualified Code(s): I10 - Essential (primary) hypertension Assessment/Plan Current Medications Generic Name Dose Route Start Last Admin Trade Name Freq PRN Reason Stop Dose Admin Acetaminophen 325 mg 11/25/19 22:28 12/07/19 13:57 Tylenol - PO 325 mg Q4H PRN Administration PAIN LEVEL 6-10 Allopurinol 100 mg 11/26/19 10:00 12/07/19 09:07 Zyloprim - PO 100 mg DAILY MARY Administration Atorvastatin Calcium 80 mg 11/26/19 22:00 12/06/19 21:45 Lipitor - PO 80 mg HS MARY Administration Carvedilol 25 mg 11/25/19 22:45 12/07/19 09:07 Coreg - PO 25 mg BID MARY Administration Docusate Sodium 300 mg 12/07/19 22:00 Colace - PO HS MARY Escitalopram Oxalate 10 mg 11/26/19 10:00 12/07/19 09:07 Lexapro - PO 10 mg DAILY MARY Administration Hydralazine HCl 25 mg 11/28/19 11:18 12/07/19 09:07 Apresoline - PO 25 mg BID MARY Administration Sodium Chloride 1,000 mls @ 75 mls/hr 12/02/19 18:46 12/07/19 17:58 1/2 Normal Saline IV 75 mls/hr ASDIR MARY Administration Insulin Aspart 1 vial 11/26/19 07:00 12/07/19 17:04 Novolog Vial Sliding Scale - SQ 2 units ACHS MARY Administration Protocol Lidocaine 2 patch 12/01/19 10:00 12/07/19 09:07 Lidoderm Patch - TP 2 patch DAILY MARY Administration Miscellaneous 2 each 11/28/19 11:20 12/06/19 21:45 Lidoderm Patch Removal MC 2 each DAILY@2200 MARY Administration Ondansetron HCl 4 mg 11/29/19 14:08 Zofran Injection IVPUSH Q6H PRN NAUSEA AND/OR VOMITING Oxycodone HCl 5 mg 12/07/19 16:45 12/07/19 17:03 Roxicodone - PO 5 mg Q8H MARY Administration Pantoprazole Sodium 40 mg 12/02/19 07:15 12/07/19 06:01 Protonix - PO 40 mg ACBK MARY Administration Sodium Zirconium Cyclosilicate 10 gm 11/29/19 10:00 12/07/19 11:36 Lokelma PO Not Given DAILY MARY Impression 1. CKD with acute component 2. hx CHF 3. CAD 4. DM 5. HTN 6. hyperlipidemia 7. BPH 8. pleural effusions 9. SPIKE 10. hyperkalemia 11. right femur fracture Plan - renal function improving - will decrease fluids - can stop lokelma - monitor lytes - encourage po intake - pain control - avoid nsaids Dr Menezes
[2019-12-07] MEDS ORDERED: INSULIN (NOVOLOG) ASPART 100 UNITS/ML 10ML VIAL ONE ×2 (21:23→22:32)
[2019-12-07] MEDS: ATORVASTATIN CA 80 MG TABLET (FP) PO SCH (22:08)
[2019-12-07] MEDS: DOCUSATE SODIUM 100 MG CAPSULE (FP) PO SCH (22:08)
[2019-12-07] MEDS: LIDOCAINE PATCH REMOVAL MC SCH (22:09)
[2019-12-08] MEDS: oxyCODONE HCL 5 MG TABLET PO SCH ×3 (00:50→17:33)
[2019-12-08] MEDS: INSULIN SLIDING SCALE (NOVOLOG) 1 VIAL SQ SCH ×4 (06:13→22:10)
[2019-12-08] MEDS: PANTOPRAZOLE 40 MG TABLET PO SCH (06:13)
[2019-12-08] MEDS: ESCITALOPRAM OXALATE 10 MG TABLET PO SCH (09:09)
[2019-12-08] MEDS: ALLOPURINOL 100 MG TABLET (FP) PO SCH (09:09)
[2019-12-08] MEDS: CARVEDILOL 25 MG TABLET (FP) PO SCH ×2 (09:09→21:32)
[2019-12-08] MEDS: LIDOCAINE 5% TOPICAL PATCH TP SCH (09:10)
[2019-12-08] MEDS: hydrALAZINE HCL 25 MG TABLET (FP) PO SCH ×2 (09:19→21:32)
[2019-12-08 09:55] LABS: INR 1.14 (0.83-1.09); PROTHROMBIN TIME (PATIENT) 13.5 SEC (9.7-13.0)
[2019-12-08 09:58] LABS: ACTIVATED PTT 29.4 SECONDS (25.2-36.5)
[2019-12-08 09:59] LABS: ALBUMIN 1.8 g/dl (3.4-5.0); ANION GAP 6 MMOL/L (8-16); CALCIUM 7.6 mg/dL (8.5-10.1); CHLORIDE 108 mmol/L (98-107); CO2 23 mmol/L (21-32); GLUCOSE,RANDOM 142 mg/dL (74-106); POTASSIUM 4.3 mmol/L (3.5-5.1); SODIUM 137 mmol/L (136-145)
[2019-12-08 10:04] LABS: ALK PHOS 80 U/L (45-117); BILIRUBIN,TOTAL 0.7 mg/dL (0.2-1); CREATININE 2.5 mg/dL (0.55-1.3); SGOT/AST 9 U/L (15-37); TOT PROT 5.2 g/dl (6.4-8.2)
[2019-12-08 10:08] LABS: SGPT/ALT < 6 U/L (13-61)
--- NOTE | 2019-12-08 10:11 | PN ---
Progress Note, Physician History of Present Illness: Denies any chest discomfort or dyspnea, reports incisional discomfort right hip. POD#9 right IM nail. - Current Medication List Current Medications: Active Medications Acetaminophen (Tylenol -) 325 mg PO Q4H PRN PRN Reason: PAIN LEVEL 6-10 Last Admin: 12/07/19 13:57 Dose: 325 mg Documented by: Allopurinol (Zyloprim -) 100 mg PO DAILY [facility] Last Admin: 12/08/19 09:09 Dose: 100 mg Documented by: Atorvastatin Calcium (Lipitor -) 80 mg PO [facility] Last Admin: 12/07/19 22:08 Dose: 80 mg Documented by: Carvedilol (Coreg -) 25 mg PO BID [facility] Last Admin: 12/08/19 09:09 Dose: 25 mg Documented by: Docusate Sodium (Colace -) 300 mg PO [facility] Last Admin: 12/07/19 22:08 Dose: 300 mg Documented by: Escitalopram Oxalate (Lexapro -) 10 mg PO DAILY [facility] Last Admin: 12/08/19 09:09 Dose: 10 mg Documented by: Hydralazine HCl (Apresoline -) 25 mg PO BID [facility] Last Admin: 12/08/19 09:19 Dose: 25 mg Documented by: Sodium Chloride (1/2 Normal Saline) 1,000 mls @ 50 mls/hr IV ASDIR [facility] Last Admin: 12/07/19 22:10 Dose: 50 mls/hr Documented by: Insulin Aspart (Novolog Vial Sliding Scale -) 1 vial SQ [facility]; Protocol Last Admin: 12/08/19 06:13 Dose: 2 units Documented by: Lidocaine (Lidoderm Patch -) 2 patch TP DAILY [facility] Last Admin: 12/08/19 09:10 Dose: 2 patch Documented by: Miscellaneous (Lidoderm Patch Removal) 2 each MC DAILY@2200 [facility] Last Admin: 12/07/19 22:09 Dose: 2 each Documented by: Ondansetron HCl (Zofran Injection) 4 mg IVPUSH Q6H PRN PRN Reason: NAUSEA AND/OR VOMITING Oxycodone HCl (Roxicodone -) 5 mg PO Q8H [facility] Last Admin: 12/08/19 09:09 Dose: 5 mg Documented by: Pantoprazole Sodium (Protonix -) 40 mg PO ACBK [facility] Last Admin: 12/08/19 06:13 Dose: 40 mg Documented by: - Objective Vital Signs: Vital Signs Temperature 97.5 F L 12/08/19 05:45 Pulse Rate 70 12/08/19 05:45 Respiratory Rate 20 12/08/19 05:45 Blood Pressure 138/67 12/08/19 05:45 O2 Sat by Pulse Oximetry (%) 98 12/07/19 21:00 Constitutional: Yes: No Distress, Calm, Thin Neck: Yes: Supple Cardiovascular: Yes: Pulse Irregular Respiratory: Yes: Regular, Diminished Gastrointestinal: Yes: Normal Bowel Sounds, Soft Edema: No Labs: CBC, BMP 12/07/19 07:10 12/08/19 08:27 INR, PTT INR 1.14 (0.83-1.09) H 12/08/19 08:27 Assessment/Plan Imaging - Results Chest X-ray: Other (cardiomegaly, , volume loss RLL) X-ray: Other (right femur intertrochanteric fracture) Problem List - Problems (1) CKD (chronic kidney disease) Assessment/Plan: stable, Problems reviewed: Yes Code(s): N18.9 - CHRONIC KIDNEY DISEASE, UNSPECIFIED (2) Diabetes 1.5, managed as type 2 Assessment/Plan: regular insulin coverage start IV D5 1/2 NS at 75 cc if surgery tomorrow Code(s): E10.9 - TYPE 1 DIABETES MELLITUS WITHOUT COMPLICATIONS (3) Closed right hip fracture Assessment/Plan: POD#9 Right Gamma nail Code(s): S72.001A - FRACTURE OF UNSP PART OF NECK OF RIGHT FEMUR, INIT Qualifiers: Encounter type: initial encounter Qualified Code(s): S72.001A - Fracture of unspecified part of neck of right femur, initial encounter for closed fracture (4) Anemia in chronic kidney disease Assessment/Plan: received 1 u pRBC transfusion Code(s): N18.9 - CHRONIC KIDNEY DISEASE, UNSPECIFIED; D63.1 - ANEMIA IN CHRONIC KIDNEY DISEASE Qualifiers: Chronic kidney disease stage: stage 2 (mild) Qualified Code(s): N18.2 - Chronic kidney disease, stage 2 (mild); D63.1 - Anemia in chronic kidney disease (5) Atrial fibrillation Assessment/Plan: chronic Eliquis 2.5 bid resumed post-op Code(s): I48.91 - UNSPECIFIED ATRIAL FIBRILLATION Qualifiers: Atrial fibrillation type: paroxysmal Qualified Code(s): I48.0 - Paroxysmal atrial fibrillation (6) CHF (congestive heart failure) Assessment/Plan: gentle hydration Code(s): I50.9 - HEART FAILURE, UNSPECIFIED Qualifiers: Heart failure type: combined systolic and diastolic Heart failure chronicity: chronic Qualified Code(s): I50.42 - Chronic combined systolic (congestive) and diastolic (congestive) heart failure (7) Coronary artery disease Assessment/Plan: Code(s): I25.10 - ATHSCL HEART DISEASE OF [place] CORONARY ARTERY W/O ANG PCTRS Qualifiers: Coronary Disease-Associated Artery/Lesion type: [place] artery [place] vs. transplanted heart: [place] heart Associated angina: without angina Qualified Code(s): I25.10 - Atherosclerotic heart disease of [place] coronary artery without angina pectoris Assessment/Plan 1. POD # 9 post right femur gamma nail insertion 2. Coronary artery disease post percutaneous coronary intervention angina pectoris, clinically stable 3. Diastolic left ventricular dysfunction with clinical class 0 [place] [employer] classification left ventricular failure 4. Persistent atrial fibrillation off chronic anticoagulation therapy with DOAC's post-op 5. Hypertensive vascular disease 6. Diabetes mellitus 7. Acute on chronic kidney disease and hyperkalemia improving 8. Anemia and thrombocytopenia post transfusion PLAN: 1. Pain management as per the primary team 2. Resume Eliquis 2.5 bid as post-op hemostasis achieved 3. Continue Coreg 25 bid, Hydralazine 25 bid and Lipitor 80 qd 4. Gentle hydration with monitor renal recovery and hyperkalemia improvement 5. Patient stated that he wants to be discharged home, for home physical therapy Patient is to follow-up with his pony rougher post discharge Dr. Beau Chacon
[2019-12-08 10:16] LABS: BLOOD UREA NITROGEN 106.6 mg/dL (7-18)
--- NOTE | 2019-12-08 10:32 | PN ---
Progress Note, [employer]PERATIONS MANAGER - Note Progress Note: Selected Entries 12/07/19 12/07/19 12/07/19 05:50 09:00 09:30 Breakfast 0 Lunch Supper Temperature 98.9 F 98.5 F Blood Pressure 124/58 L 130/57 L 12/07/19 12/07/19 12/07/19 14:47 18:00 19:11 Breakfast Lunch 0 Supper 0 Temperature 97.8 F 98.3 F Blood Pressure 128/57 L 117/55 L 12/07/19 12/08/19 22:00 05:45 Breakfast Lunch Supper Temperature 97.4 F L 97.5 F L Blood Pressure 125/56 L 138/67 Laboratory Tests 12/06/19 12/07/19 12/07/19 09:55 06:00 07:10 WBC 4.4 BUN 105.4 H* 106.8 H* 12/08/19 08:27 WBC BUN 106.6 H* Per RD-Continue Diabetic/low sodium diet. Regular/thin liquids as per [employer]PERATIONS MANAGER. Increase Nepro to BID Prosource SF 30ml BID, daily Nephrovite Increase bowel regimen as needed Poor PO intake, elevated BUN Continue to provide encouragement for PO intake, especially fluids, Nepro Appetite stimulant, if not contraindicated? Pt on Remeron
[2019-12-08] MEDS ORDERED: INSULIN (NOVOLOG) ASPART 100 UNITS/ML 10ML VIAL ONE (11:29)
--- NOTE | 2019-12-08 18:12 | PN ---
Progress Note, Physician History of Present Illness: Pt seen and examined at bedside. He is awake and appears comfortable. - Current Medication List Current Medications: Active Medications Acetaminophen (Tylenol -) 325 mg PO Q4H PRN PRN Reason: PAIN LEVEL 6-10 Last Admin: 12/07/19 13:57 Dose: 325 mg Documented by: Allopurinol (Zyloprim -) 100 mg PO DAILY [facility] Last Admin: 12/08/19 09:09 Dose: 100 mg Documented by: Apixaban (Eliquis -) 2.5 mg PO BID [facility] Atorvastatin Calcium (Lipitor -) 80 mg PO [facility] Last Admin: 12/07/19 22:08 Dose: 80 mg Documented by: Carvedilol (Coreg -) 25 mg PO BID [facility] Last Admin: 12/08/19 09:09 Dose: 25 mg Documented by: Docusate Sodium (Colace -) 300 mg PO [facility] Last Admin: 12/07/19 22:08 Dose: 300 mg Documented by: Escitalopram Oxalate (Lexapro -) 10 mg PO DAILY [facility] Last Admin: 12/08/19 09:09 Dose: 10 mg Documented by: Hydralazine HCl (Apresoline -) 25 mg PO BID [facility] Last Admin: 12/08/19 09:19 Dose: 25 mg Documented by: Sodium Chloride (1/2 Normal Saline) 1,000 mls @ 50 mls/hr IV ASDIR [facility] Last Admin: 12/07/19 22:10 Dose: 50 mls/hr Documented by: Insulin Aspart (Novolog Vial Sliding Scale -) 1 vial SQ ACHS [facility]; Protocol Last Admin: 12/08/19 16:55 Dose: 4 units Documented by: Lidocaine (Lidoderm Patch -) 2 patch TP DAILY [facility] Last Admin: 12/08/19 09:10 Dose: 2 patch Documented by: Miscellaneous (Lidoderm Patch Removal) 2 each MC DAILY@2200 [facility] Last Admin: 12/07/19 22:09 Dose: 2 each Documented by: Ondansetron HCl (Zofran Injection) 4 mg IVPUSH Q6H PRN PRN Reason: NAUSEA AND/OR VOMITING Oxycodone HCl (Roxicodone -) 5 mg PO Q8H [facility] Last Admin: 12/08/19 17:33 Dose: 5 mg Documented by: Pantoprazole Sodium (Protonix -) 40 mg PO ACBK [facility] Last Admin: 12/08/19 06:13 Dose: 40 mg Documented by: - Objective Vital Signs: Vital Signs Temperature 97.4 F L 12/08/19 14:05 Pulse Rate 76 12/08/19 14:05 Respiratory Rate 14 12/08/19 14:05 Blood Pressure 107/51 L 12/08/19 14:05 O2 Sat by Pulse Oximetry (%) 100 12/08/19 10:00 Constitutional: Yes: Calm Eyes: Yes: Conjunctiva Clear HENT: Yes: Atraumatic Neck: Yes: Supple Cardiovascular: Yes: S1, S2 Respiratory: Yes: CTA Bilaterally Gastrointestinal: Yes: Soft Genitourinary: Yes: WNL Edema: No Neurological: Yes: Oriented Labs: CBC, BMP 12/07/19 07:10 12/08/19 08:27 INR, PTT INR 1.14 (0.83-1.09) H 12/08/19 08:27 Fibrinogen 272.0 mg/dL (238-498) 12/08/19 08:27 Problem List - Problems (1) CKD (chronic kidney disease) Code(s): N18.9 - CHRONIC KIDNEY DISEASE, UNSPECIFIED Qualifiers: Chronic kidney disease stage: stage 3 (moderate) Qualified Code(s): N18.3 - Chronic kidney disease, stage 3 (moderate) (2) Hyperkalemia Code(s): E87.5 - HYPERKALEMIA (3) Acute kidney failure Code(s): N17.9 - ACUTE KIDNEY FAILURE, UNSPECIFIED Qualifiers: Acute renal failure type: with other specified pathological lesion Qualified Code(s): N17.8 - Other acute kidney failure (4) CHF (congestive heart failure) Code(s): I50.9 - HEART FAILURE, UNSPECIFIED Qualifiers: Heart failure type: combined systolic and diastolic Heart failure chronicity: chronic Qualified Code(s): I50.42 - Chronic combined systolic (c ongestive) and diastolic (congestive) heart failure (5) HTN (hypertension) Code(s): I10 - ESSENTIAL (PRIMARY) HYPERTENSION Qualifiers: Hypertension type: essential hypertension Qualified Code(s): I10 - Essential (primary) hypertension Assessment/Plan Current Medications Generic Name Dose Route Start Last Admin Trade Name Freq PRN Reason Stop Dose Admin Acetaminophen 325 mg 11/25/19 22:28 12/07/19 13:57 Tylenol - PO 325 mg Q4H PRN Administration PAIN LEVEL 6-10 Allopurinol 100 mg 11/26/19 10:00 12/08/19 09:09 Zyloprim - PO 100 mg DAILY [facility] Administration Apixaban 2.5 mg 12/08/19 22:00 Eliquis - PO BID [facility] Atorvastatin Calcium 80 mg 11/26/19 22:00 12/07/19 22:08 Lipitor - PO 80 mg HS [facility]ARY Administration Carvedilol 25 mg 11/25/19 22:45 12/08/19 09:09 Coreg - PO 25 mg BID [facility] Administration Docusate Sodium 300 mg 12/07/19 22:00 12/07/19 22:08 Colace - PO 300 mg HS [facility]ARY Administration Escitalopram Oxalate 10 mg 11/26/19 10:00 12/08/19 09:09 Lexapro - PO 10 mg DAILY [facility] Administration Hydralazine HCl 25 mg 11/28/19 11:18 12/08/19 09:19 Apresoline - PO 25 mg BID [facility] Administration Sodium Chloride 1,000 mls @ 50 mls/hr 12/07/19 20:57 12/07/19 22:10 1/2 Normal Saline IV 50 mls/hr ASDIR [facility] Administration Insulin Aspart 1 vial 11/26/19 07:00 12/08/19 16:55 Novolog Vial Sliding Scale - SQ 4 units ACHS [facility] Administration Protocol Lidocaine 2 patch 12/01/19 10:00 12/08/19 09:10 Lidoderm Patch - TP 2 patch DAILY [facility] Administration Miscellaneous 2 each 11/28/19 11:20 12/07/19 22:09 Lidoderm Patch Removal MC 2 each DAILY@2200 [facility] Administration Ondansetron HCl 4 mg 11/29/19 14:08 Zofran Injection IVPUSH Q6H PRN NAUSEA AND/OR VOMITING Oxycodone HCl 5 mg 12/07/19 16:45 12/08/19 17:33 Roxicodone - PO 5 mg Q8H [facility] Administration Pantoprazole Sodium 40 mg 12/02/19 07:15 12/08/19 06:13 Protonix - PO 40 mg ACBK [facility] Administration Impression 1. CKD with acute component 2. hx CHF 3. CAD 4. DM 5. HTN 6. hyperlipidemia 7. BPH 8. pleural effusions 9. SPIKE 10. hyperkalemia 11. 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
[2019-12-08] MEDS ORDERED: SODIUM CHLORIDE 0.45% 1,000 ML IV SCH (18:13)
[2019-12-08] MEDS: LIDOCAINE PATCH REMOVAL MC SCH (21:32)
[2019-12-08] MEDS: ATORVASTATIN CA 80 MG TABLET (FP) PO SCH (21:32)
[2019-12-08] MEDS: DOCUSATE SODIUM 100 MG CAPSULE (FP) PO SCH (21:32)
[2019-12-08] MEDS: APIXABAN 2.5 MG TABLET PO SCH (21:32)
--- NOTE | 2019-12-08 22:19 | PN ---
Progress Note, Physician Chief Complaint: PAtient is awake but sedated, complains of pain in the right hip with mobilization and is not cooperating to physical therapy. 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 Hematuria is persisting and his kidney function is not better. - Current Medication List Current Medications: Active Medications Acetaminophen (Tylenol -) 325 mg PO Q4H PRN PRN Reason: PAIN LEVEL 6-10 Last Admin: 12/07/19 13:57 Dose: 325 mg Documented by: Allopurinol (Zyloprim -) 100 mg PO DAILY [facility] Last Admin: 12/08/19 09:09 Dose: 100 mg Documented by: Apixaban (Eliquis -) 2.5 mg PO BID [facility] Last Admin: 12/08/19 21:32 Dose: 2.5 mg Documented by: Atorvastatin Calcium (Lipitor -) 80 mg PO [facility] Last Admin: 12/08/19 21:32 Dose: 80 mg Documented by: Carvedilol (Coreg -) 25 mg PO BID [facility] Last Admin: 12/08/19 21:32 Dose: 25 mg Documented by: Docusate Sodium (Colace -) 300 mg PO [facility] Last Admin: 12/08/19 21:32 Dose: 300 mg Documented by: Escitalopram Oxalate (Lexapro -) 10 mg PO DAILY [facility] Last Admin: 12/08/19 09:09 Dose: 10 mg Documented by: Hydralazine HCl (Apresoline -) 25 mg PO BID [facility] Last Admin: 12/08/19 21:32 Dose: 25 mg Documented by: Sodium Chloride (1/2 Normal Saline) 1,000 mls @ 100 mls/hr IV ASDIR [facility] Insulin Aspart (Novolog Vial Sliding Scale -) 1 vial SQ ACHS [facility]; Protocol Last Admin: 12/08/19 16:55 Dose: 4 units Documented by: Lidocaine (Lidoderm Patch -) 2 patch TP DAILY [facility] Last Admin: 12/08/19 09:10 Dose: 2 patch Documented by: Miscellaneous (Lidoderm Patch Removal) 2 each MC DAILY@2200 [facility] Last Admin: 12/08/19 21:32 Dose: 2 each Documented by: Ondansetron HCl (Zofran Injection) 4 mg IVPUSH Q6H PRN PRN Reason: NAUSEA AND/OR VOMITING Oxycodone HCl (Roxicodone -) 5 mg PO Q8H PRN PRN Reason: PAIN LEVEL 6-10 Pantoprazole Sodium (Protonix -) 40 mg PO ACBK [facility] Last Admin: 12/08/19 06:13 Dose: 40 mg Documented by: - Objective Vital Signs: Vital Signs Temperature 98.6 F 12/08/19 18:00 Pulse Rate 77 12/08/19 18:00 Respiratory Rate 14 12/08/19 14:05 Blood Pressure 134/58 L 12/08/19 18:00 O2 Sat by Pulse Oximetry (%) 100 12/08/19 10:00 Constitutional: Yes: No Distress, Calm Eyes: Yes: Conjunctiva Clear, EOM Intact HENT: Yes: Atraumatic, Normocephalic Neck: Yes: Supple, Trachea Midline Cardiovascular: Yes: Regular Rate and Rhythm, S1, S2 Respiratory: Yes: Regular, CTA Bilaterally Gastrointestinal: Yes: Normal Bowel Sounds, Soft. No: Hepatomegaly, Splenomegaly Extremities: No: Calf Tenderness Edema: No Peripheral Pulses WNL: Yes Wound/Incision: Yes: Dressing Dry and Intact. No: Draining, Bleeding Neurological: Yes: Alert, Oriented Psychiatric: Yes: Alert, Oriented Labs: CBC, BMP 12/07/19 07:10 12/08/19 08:27 INR, PTT INR 1.14 (0.83-1.09) H 12/08/19 08:27 Fibrinogen 272.0 mg/dL (238-498) 12/08/19 08:27 Problem List - Problems (1) Fgwti-gy-wzkadiv kidney injury Assessment/Plan: increase the iv rate to 100 cc/hr with close monitoring patient has low urine output, weight has been stable and there are no signs of fluid overload CXR in am Code(s): N17.9 - ACUTE KIDNEY FAILURE, UNSPECIFIED; N18.9 - CHRONIC KIDNEY DISEASE, UNSPECIFIED Qualifiers: Chronic kidney disease stage: stage 4 (severe) (2) Hematuria Assessment/Plan: PSA is WNL received 2 u PRBC urine culture was negative Urology consult is pending Code(s): R31.9 - HEMATURIA, UNSPECIFIED (3) Thrombocytopenia Assessment/Plan: persisting Hematology consultation appreciated monitor the platelet counts Code(s): D69.6 - THROMBOCYTOPENIA, UNSPECIFIED (4) Diabetes 1.5, managed as type 2 Code(s): E10.9 - TYPE 1 DIABETES MELLITUS WITHOUT COMPLICATIONS (5) Closed right hip fracture Assessment/Plan: tolerated well Gamma nail placement restarted Elliquis anticoagulation Lidoderm patches # 2 to the right hip Oxycodone 5 mg every 6 hours as needed Code(s): S72.001A - FRACTURE OF UNSP PART OF NECK OF RIGHT FEMUR, INIT Qualifiers: Encounter type: initial encounter Qualified Code(s): S72.001A - Fracture of unspecified part of neck of right femur, initial encounter for closed fracture (6) Atrial fibrillation Assessment/Plan: chronic, rhythm is controlled Eliquis restarted Code(s): I48.91 - UNSPECIFIED ATRIAL FIBRILLATION Qualifiers: Atrial fibrillation type: paroxysmal Qualified Code(s): I48.0 - Paroxysmal atrial fibrillation (7) CHF (congestive heart failure) Assessment/Plan: gentle hydration po intake continues to be poor due to elevated BUN will continue hydration with 1/2 NS, po intake will improve Code(s): I50.9 - HEART FAILURE, UNSPECIFIED Qualifiers: Heart failure type: combined systolic and diastolic Heart failure chronicity: chronic Qualified Code(s): I50.42 - Chronic combined systolic (congestive) and diastolic (congestive) heart failure (8) Coronary artery disease Assessment/Plan: had no complications during surgery stable at this moment Code(s): I25.10 - ATHSCL HEART DISEASE OF [place] CORONARY ARTERY W/O ANG PCTRS Qualifiers: Coronary Disease-Associated Artery/Lesion type: [place] artery [place] vs. transplanted heart: [place] heart Associated angina: without angina Qualified Code(s): I25.10 - Atherosclerotic heart disease of [place] coronary artery without angina pectoris
[2019-12-08] MEDS: SODIUM CHLORIDE 0.45% 1,000 ML IV SCH (22:30)
[2019-12-09] MEDS: oxyCODONE HCL 5 MG TABLET PO PRN ×2 (00:30→09:14)
[2019-12-09] MEDS: PANTOPRAZOLE 40 MG TABLET PO SCH (06:18)
[2019-12-09] MEDS: SODIUM CHLORIDE 0.45% 1,000 ML IV SCH (06:18)
[2019-12-09] MEDS: INSULIN SLIDING SCALE (NOVOLOG) 1 VIAL SQ SCH ×4 (06:22→21:07)
[2019-12-09 08:48] LABS: BASO % 0.1 % (0-2.0); EOS % 0.9 % (0-4.5); HEMATOCRIT 26.6 % (35.4-49); HEMOGLOBIN 8.7 GM/dL (11.7-16.9); LYMPH % 9.2 % (8-40); MCH 31.1 pg (25.7-33.7); MCHC 32.6 g/dl (32.0-35.9); MEAN CELL VOLUME 95.5 fl (80-96); MEAN PLT VOLUME 8.7 fl (7.5-11.1); MONO % 9.1 % (3.8-10.2); NEUT % 80.7 % (42.8-82.8); PLATELET COUNT 104 K/MM3 (134-434); RBC 2.78 M/mm3 (4.00-5.60); RDW 17.4 % (11.9-15.9); WHITE BLOOD COUNT 4.8 K/mm3 (4.0-10.0)
[2019-12-09] MEDS: hydrALAZINE HCL 25 MG TABLET (FP) PO SCH ×2 (09:14→21:01)
[2019-12-09] MEDS: ESCITALOPRAM OXALATE 10 MG TABLET PO SCH (09:14)
[2019-12-09] MEDS: CARVEDILOL 25 MG TABLET (FP) PO SCH ×2 (09:14→21:01)
[2019-12-09] MEDS: LIDOCAINE 5% TOPICAL PATCH TP SCH (09:14)
[2019-12-09] MEDS: APIXABAN 2.5 MG TABLET PO SCH ×2 (09:15→21:01)
[2019-12-09] MEDS: ALLOPURINOL 100 MG TABLET (FP) PO SCH (09:15)
[2019-12-09 09:22] LABS: ALBUMIN 1.9 g/dl (3.4-5.0); BILIRUBIN,TOTAL 0.8 mg/dL (0.2-1); CALCIUM 7.6 mg/dL (8.5-10.1); CREATININE 2.7 mg/dL (0.55-1.3); POTASSIUM 4.3 mmol/L (3.5-5.1); TOT PROT 5.3 g/dl (6.4-8.2)
[2019-12-09 09:25] LABS: BLOOD UREA NITROGEN 108.9 mg/dL (7-18)
--- NOTE | 2019-12-09 09:39 | PN ---
Progress Note, Physician History of Present Illness: Denies any chest discomfort or dyspnea, weak and debilitated. POD#10 right IM nail. CXR shows congestion an effusions, IVF d/simon. - Current Medication List Current Medications: Active Medications Acetaminophen (Tylenol -) 325 mg PO Q4H PRN PRN Reason: PAIN LEVEL 6-10 Last Admin: 12/07/19 13:57 Dose: 325 mg Documented by: Allopurinol (Zyloprim -) 100 mg PO DAILY [facility] Last Admin: 12/09/19 09:15 Dose: 100 mg Documented by: Apixaban (Eliquis -) 2.5 mg PO BID [facility] Last Admin: 12/09/19 09:15 Dose: 2.5 mg Documented by: Atorvastatin Calcium (Lipitor -) 80 mg PO [facility] Last Admin: 12/08/19 21:32 Dose: 80 mg Documented by: Carvedilol (Coreg -) 25 mg PO BID [facility] Last Admin: 12/09/19 09:14 Dose: 25 mg Documented by: Docusate Sodium (Colace -) 300 mg PO [facility] Last Admin: 12/08/19 21:32 Dose: 300 mg Documented by: Escitalopram Oxalate (Lexapro -) 10 mg PO DAILY [facility] Last Admin: 12/09/19 09:14 Dose: 10 mg Documented by: Hydralazine HCl (Apresoline -) 25 mg PO BID [facility] Last Admin: 12/09/19 09:14 Dose: 25 mg Documented by: Sodium Chloride (1/2 Normal Saline) 1,000 mls @ 100 mls/hr IV ASDIR [facility] Last Admin: 12/09/19 06:18 Dose: 100 mls/hr Documented by: Insulin Aspart (Novolog Vial Sliding Scale -) 1 vial SQ ACHS [facility]; Protocol Last Admin: 12/09/19 06:22 Dose: 2 units Documented by: Lidocaine (Lidoderm Patch -) 2 patch TP DAILY [facility] Last Admin: 12/09/19 09:14 Dose: 2 patch Documented by: Miscellaneous (Lidoderm Patch Removal) 2 each MC DAILY@2200 [facility] Last Admin: 12/08/19 21:32 Dose: 2 each Documented by: Ondansetron HCl (Zofran Injection) 4 mg IVPUSH Q6H PRN PRN Reason: NAUSEA AND/OR VOMITING Oxycodone HCl (Roxicodone -) 5 mg PO Q8H PRN PRN Reason: PAIN LEVEL 6-10 Last Admin: 12/09/19 09:14 Dose: 5 mg Documented by: Pantoprazole Sodium (Protonix -) 40 mg PO ACBK [facility] Last Admin: 12/09/19 06:18 Dose: 40 mg Documented by: - Objective Vital Signs: Vital Signs Temperature 97.8 F 12/09/19 05:08 Pulse Rate 74 12/09/19 05:08 Respiratory Rate 16 12/09/19 05:08 Blood Pressure 115/52 L 12/09/19 05:08 O2 Sat by Pulse Oximetry (%) 96 12/08/19 22:00 Constitutional: Yes: No Distress, Calm, Thin Neck: Yes: Supple Cardiovascular: Yes: Regular Rate and Rhythm Respiratory: Yes: Regular, Diminished, On Nasal O2 Gastrointestinal: Yes: Soft, Hypoactive Bowel Sounds Edema: No Labs: CBC, BMP 12/09/19 08:09 12/09/19 08:09 INR, PTT INR 1.14 (0.83-1.09) H 12/08/19 08:27 Fibrinogen 272.0 mg/dL (238-498) 12/08/19 08:27 - ....Imaging Chest X-ray: Report Reviewed (Congestion and right effusion) Assessment/Plan Imaging - Results Chest X-ray: Other (cardiomegaly, , volume loss RLL) X-ray: Other (right femur intertrochanteric fracture) Problem List - Problems (1) CKD (chronic kidney disease) Assessment/Plan: stable, Problems reviewed: Yes Code(s): N18.9 - CHRONIC KIDNEY DISEASE, UNSPECIFIED (2) Diabetes 1.5, managed as type 2 Assessment/Plan: regular insulin coverage start IV D5 1/2 NS at 75 cc if surgery tomorrow Code(s): E10.9 - TYPE 1 DIABETES MELLITUS WITHOUT COMPLICATIONS (3) Closed right hip fracture Assessment/Plan: POD#10 Right Gamma nail Code(s): S72.001A - FRACTURE OF UNSP PART OF NECK OF RIGHT FEMUR, INIT Qualifiers: Encounter type: initial encounter Qualified Code(s): S72.001A - Fracture of unspecified part of neck of right femur, initial encounter for closed fracture (4) Anemia in chronic kidney disease Assessment/Plan: received 1 u pRBC transfusion Code(s): N18.9 - CHRONIC KIDNEY DISEASE, UNSPECIFIED; D63.1 - ANEMIA IN CHRONIC KIDNEY DISEASE Qualifiers: Chronic kidney disease stage: stage 2 (mild) Qualified Code(s): N18.2 - Chronic kidney disease, stage 2 (mild); D63.1 - Anemia in chronic kidney disease (5) Atrial fibrillation Assessment/Plan: chronic Eliquis 2.5 bid resumed post-op Code(s): I48.91 - UNSPECIFIED ATRIAL FIBRILLATION Qualifiers: Atrial fibrillation type: paroxysmal Qualified Code(s): I48.0 - Paroxysmal atrial fibrillation (6) CHF (congestive heart failure) Assessment/Plan: D/c IVF, diuretics as needed Code(s): I50.9 - HEART FAILURE, UNSPECIFIED Qualifiers: Heart failure type: combined systolic and diastolic Heart failure chr onicity: chronic Qualified Code(s): I50.42 - Chronic combined systolic (congestive) and diastolic (congestive) heart failure (7) Coronary artery disease Assessment/Plan: Code(s): I25.10 - ATHSCL HEART DISEASE OF [place] CORONARY ARTERY W/O ANG PCTRS Qualifiers: Coronary Disease-Associated Artery/Lesion type: [place] artery [place] vs. transplanted heart: [place] heart Associated angina: without angina Qualified Code(s): I25.10 - Atherosclerotic heart disease of [place] coronary artery without angina pectoris Assessment/Plan 1. POD # 10 post right femur gamma nail insertion 2. Coronary artery disease post percutaneous coronary intervention angina pectoris, clinically stable 3. Acute on chronic diastolic heart failure with pleural effusion 4. Persistent atrial fibrillation on chronic anticoagulation therapy 5. Hypertensive cardiovascular disease 6. Diabetes mellitus 7. Acute on chronic kidney disease and hyperkalemia improving 8. Anemia and thrombocytopenia post transfusion PLAN: 1. Pain management as per the primary team 2. Resumed Eliquis 2.5 bid as post-op hemostasis achieved 3. Continue Coreg 25 bid, Hydralazine 25 bid and Lipitor 80 qd 4. D/c IVF and diuresis as needed with monitor renal recovery and hyperkalemia improvement, encourage oral intake 5. Patient stated that he wants to be discharged home, for home physical therapy Patient is to follow-up with his organic chemist post discharge Dr. Beau Chacon
[2019-12-09] MEDS ORDERED: SODIUM CHLORIDE 0.45% 1,000 ML IV SCH (10:15)
[2019-12-09] MEDS ORDERED: INSULIN (NOVOLOG) ASPART 100 UNITS/ML 10ML VIAL ONE ×2 (11:27→20:56)
[2019-12-09] MEDS: ACETAMINOPHEN 325 MG TABLET (FP) PO PRN (14:49)
--- NOTE | 2019-12-09 15:06 | PN ---
Progress Note, Physician History of Present Illness: Pt seen and examined at bedside. He still has poor po intake. He denies shortness of breath. - Current Medication List Current Medications: Active Medications Acetaminophen (Tylenol -) 325 mg PO Q4H PRN PRN Reason: PAIN LEVEL 6-10 Last Admin: 12/09/19 14:49 Dose: 325 mg Documented by: Allopurinol (Zyloprim -) 100 mg PO DAILY [facility] Last Admin: 12/09/19 09:15 Dose: 100 mg Documented by: Apixaban (Eliquis -) 2.5 mg PO BID [facility] Last Admin: 12/09/19 09:15 Dose: 2.5 mg Documented by: Atorvastatin Calcium (Lipitor -) 80 mg PO [facility] Last Admin: 12/08/19 21:32 Dose: 80 mg Documented by: Carvedilol (Coreg -) 25 mg PO BID [facility] Last Admin: 12/09/19 09:14 Dose: 25 mg Documented by: Docusate Sodium (Colace -) 300 mg PO [facility] Last Admin: 12/08/19 21:32 Dose: 300 mg Documented by: Escitalopram Oxalate (Lexapro -) 10 mg PO DAILY [facility] Last Admin: 12/09/19 09:14 Dose: 10 mg Documented by: Hydralazine HCl (Apresoline -) 25 mg PO BID [facility] Last Admin: 12/09/19 09:14 Dose: 25 mg Documented by: Insulin Aspart (Novolog Vial Sliding Scale -) 1 vial SQ [facility]; Protocol Last Admin: 12/09/19 11:28 Dose: 2 units Documented by: Lidocaine (Lidoderm Patch -) 2 patch TP DAILY [facility] Last Admin: 12/09/19 09:14 Dose: 2 patch Documented by: Miscellaneous (Lidoderm Patch Removal) 2 each MC DAILY@2200 [facility] Last Admin: 12/08/19 21:32 Dose: 2 each Documented by: Ondansetron HCl (Zofran Injection) 4 mg IVPUSH Q6H PRN PRN Reason: NAUSEA AND/OR VOMITING Oxycodone HCl (Roxicodone -) 5 mg PO Q8H PRN PRN Reason: PAIN LEVEL 6-10 Last Admin: 12/09/19 09:14 Dose: 5 mg Documented by: Pantoprazole Sodium (Protonix -) 40 mg PO ACBK [facility] Last Admin: 12/09/19 06:18 Dose: 40 mg Documented by: - Objective Vital Signs: Vital Signs Temperature 98.2 F 12/09/19 10:00 Pulse Rate 69 12/09/19 10:00 Respiratory Rate 18 12/09/19 10:00 Blood Pressure 130/64 12/09/19 10:00 O2 Sat by Pulse Oximetry (%) 93 L 12/09/19 10:00 Constitutional: Yes: Calm Eyes: Yes: Conjunctiva Clear HENT: Yes: Atraumatic Neck: Yes: Supple Cardiovascular: Yes: S1, S2 Respiratory: Yes: CTA Bilaterally Gastrointestinal: Yes: Soft Genitourinary: Yes: WNL Musculoskeletal: Yes: Muscle Weakness Neurological: Yes: Other (drowsy) Labs: CBC, BMP 12/09/19 08:09 12/09/19 08:09 INR, PTT INR 1.14 (0.83-1.09) H 12/08/19 08:27 Fibrinogen 272.0 mg/dL (238-498) 12/08/19 08:27 Problem List - Problems (1) CKD (chronic kidney disease) Code(s): N18.9 - CHRONIC KIDNEY DISEASE, UNSPECIFIED Qualifiers: Chronic kidney disease stage: stage 3 (moderate) Qualified Code(s): N18.3 - Chronic kidney disease, stage 3 (moderate) (2) Hyperkalemia Code(s): E87.5 - HYPERKALEMIA (3) Acute kidney failure Code(s): N17.9 - ACUTE KIDNEY FAILURE, UNSPECIFIED Qualifiers: Acute renal failure type: with other specified pathological lesion Qualified Code(s): N17.8 - Other acute kidney failure (4) CHF (congestive heart failure) Code(s): I50.9 - HEART FAILURE, UNSPECIFIED Qualifiers: Heart failure type: combined systolic and diastolic Heart failure chroni city: chronic Qualified Code(s): I50.42 - Chronic combined systolic (congestive) and diastolic (congestive) heart failure (5) HTN (hypertension) Code(s): I10 - ESSENTIAL (PRIMARY) HYPERTENSION Qualifiers: Hypertension type: essential hypertension Qualified Code(s): I10 - Essential (primary) hypertension Assessment/Plan Current Medications Generic Name Dose Route Start Last Admin Trade Name Freq PRN Reason Stop Dose Admin Acetaminophen 325 mg 11/25/19 22:28 12/09/19 14:49 Tylenol - PO 325 mg Q4H PRN Administration PAIN LEVEL 6-10 Allopurinol 100 mg 11/26/19 10:00 12/09/19 09:15 Zyloprim - PO 100 mg DAILY MARY Administration Apixaban 2.5 mg 12/08/19 22:00 12/09/19 09:15 Eliquis - PO 2.5 mg BID MARY Administration Atorvastatin Calcium 80 mg 11/26/19 22:00 12/08/19 21:32 Lipitor - PO 80 mg HS MARY Administration Carvedilol 25 mg 11/25/19 22:45 12/09/19 09:14 Coreg - PO 25 mg BID MARY Administration Docusate Sodium 300 mg 12/07/19 22:00 12/08/19 21:32 Colace - PO 300 mg HS MARY Administration Escitalopram Oxalate 10 mg 11/26/19 10:00 12/09/19 09:14 Lexapro - PO 10 mg DAILY MARY Administration Hydralazine HCl 25 mg 11/28/19 11:18 12/09/19 09:14 Apresoline - PO 25 mg BID MARY Administration Insulin Aspart 1 vial 11/26/19 07:00 12/09/19 11:28 Novolog Vial Sliding Scale - SQ 2 units ACHS MARY Administration Protocol Lidocaine 2 patch 12/01/19 10:00 12/09/19 09:14 Lidoderm Patch - TP 2 patch DAILY MARY Administration Miscellaneous 2 each 11/28/19 11:20 12/08/19 21:32 Lidoderm Patch Removal MC 2 each DAILY@2200 MARY Administration Ondansetron HCl 4 mg 11/29/19 14:08 Zofran Injection IVPUSH Q6H PRN NAUSEA AND/OR VOMITING Oxycodone HCl 5 mg 12/08/19 22:15 12/09/19 09:14 Roxicodone - PO 5 mg Q8H PRN Administration PAIN LEVEL 6-10 Pantoprazole Sodium 40 mg 12/02/19 07:15 12/09/19 06:18 Protonix - PO 40 mg ACBK MARY Administration Impression 1. CKD with acute component 2. hx CHF 3. CAD 4. DM 5. HTN 6. hyperlipidemia 7. BPH 8. pleural effusions 9. SPIKE 10. hyperkalemia 11. right femur fracture Plan - hold fluids - cxr reviewed - discussed with cardio - appetite remains poor - encourage po intake - pain control - avoid nsaids Dr Menezes
[2019-12-09 20:48] LABS: EPI CELLS >36 /uL (0-25.1); HYALINE CASTS 15 /uL (0-3.1); URINE APPEARANCE TURBID; URINE BILIRUBIN 1+ (NEGATIVE); URINE COLOR ORANGE; URINE GLUCOSE (UA) TRACE (NEGATIVE); URINE KETONE NEGATIVE (NEGATIVE); URINE LEUK ESTERASE 1+ (NEGATIVE); URINE NITRITE POSITIVE (NEGATIVE); URINE PROTEIN 2+ (NEGATIVE); URINE UROBILINOGEN 0.2 mg/dL (0.2-1.0); URINE WBC 97 /uL (0-25.8)
[2019-12-09] MEDS: ATORVASTATIN CA 80 MG TABLET (FP) PO SCH (21:01)
[2019-12-09 21:02] LABS: URINE BACTERIA MODERATE /uL (0-1359); URINE RBC 198.7 /uL (0-23.9)
[2019-12-09] MEDS: DOCUSATE SODIUM 100 MG CAPSULE (FP) PO SCH (21:02)
[2019-12-09 21:03] LABS: URINE CRYSTALS 4+AMORPHOUS URATE /hpf; YEAST MODERATE (NEGATIVE)
[2019-12-09] MEDS: LIDOCAINE PATCH REMOVAL MC SCH (21:07)
--- NOTE | 2019-12-09 23:20 | PN ---
Progress Note, Physician Chief Complaint: PAtient is awake but sedated, complains of pain in the right hip with mobilization and is not cooperating to physical therapy. 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 Hematuria is persisting and his kidney function is not better. - Current Medication List Current Medications: Active Medications Acetaminophen (Tylenol -) 325 mg PO Q4H PRN PRN Reason: PAIN LEVEL 6-10 Last Admin: 12/09/19 14:49 Dose: 325 mg Documented by: Allopurinol (Zyloprim -) 100 mg PO DAILY [facility] Last Admin: 12/09/19 09:15 Dose: 100 mg Documented by: Apixaban (Eliquis -) 2.5 mg PO BID [facility] Last Admin: 12/09/19 21:01 Dose: 2.5 mg Documented by: Atorvastatin Calcium (Lipitor -) 80 mg PO [facility] Last Admin: 12/09/19 21:01 Dose: 80 mg Documented by: Carvedilol (Coreg -) 25 mg PO BID [facility] Last Admin: 12/09/19 21:01 Dose: 25 mg Documented by: Docusate Sodium (Colace -) 300 mg PO [facility] Last Admin: 12/09/19 21:02 Dose: 300 mg Documented by: Escitalopram Oxalate (Lexapro -) 10 mg PO DAILY [facility] Last Admin: 12/09/19 09:14 Dose: 10 mg Documented by: Hydralazine HCl (Apresoline -) 25 mg PO BID [facility] Last Admin: 12/09/19 21:01 Dose: 25 mg Documented by: Insulin Aspart (Novolog Vial Sliding Scale -) 1 vial SQ [facility]; Protocol Last Admin: 12/09/19 21:07 Dose: 2 units Documented by: Lidocaine (Lidoderm Patch -) 2 patch TP DAILY [facility] Last Admin: 12/09/19 09:14 Dose: 2 patch Documented by: Miscellaneous (Lidoderm Patch Removal) 2 each MC DAILY@2200 [facility] Last Admin: 12/09/19 21:07 Dose: 2 each Documented by: Ondansetron HCl (Zofran Injection) 4 mg IVPUSH Q6H PRN PRN Reason: NAUSEA AND/OR VOMITING Oxycodone HCl (Roxicodone -) 5 mg PO Q8H PRN PRN Reason: PAIN LEVEL 6-10 Last Admin: 12/09/19 09:14 Dose: 5 mg Documented by: Pantoprazole Sodium (Protonix -) 40 mg PO ACBK [facility] Last Admin: 12/09/19 06:18 Dose: 40 mg Documented by: - Objective Vital Signs: Vital Signs Temperature 98 F 12/09/19 21:00 Pulse Rate 75 12/09/19 21:07 Respiratory Rate 18 12/09/19 21:00 Blood Pressure 139/66 12/09/19 21:00 O2 Sat by Pulse Oximetry (%) 99 12/09/19 21:07 Constitutional: Yes: No Distress, Calm Eyes: Yes: Conjunctiva Clear, EOM Intact HENT: Yes: Atraumatic, Normocephalic Neck: Yes: Supple, Trachea Midline Cardiovascular: Yes: Regular Rate and Rhythm Respiratory: Yes: Regular (decreased breath sounds at the right base), On Nasal O2, Other (pleural rubs anteriorly at the left base). No: Cough, SOB, SOB on Exertion, Stridor Gastrointestinal: Yes: Normal Bowel Sounds, Soft. No: Splenomegaly ...Rectal Exam: Yes: Deferred Genitourinary: Yes: Hematuria (dark urine) Breast(s): Yes: WNL Extremities: No: Calf Tenderness Edema: No Peripheral Pulses WNL: Yes Wound/Incision: Yes: Clean/Dry, Dressing Dry and Intact Neurological: Yes: Alert, Oriented (with episode of somnoloence and confusion), Confusion (intermittemt confusion), Weakness Psychiatric: Yes: Alert, Other (depressed) Labs: CBC, BMP 12/09/19 08:09 12/09/19 08:09 INR, PTT INR 1.14 (0.83-1.09) H 12/08/19 08:27 Fibrinogen 272.0 mg/dL (238-498) 12/08/19 08:27 - ....Imaging Chest X-ray: Other (congestive changes, right pleural effusion) Problem List - Problems (1) [id number] kidney injury Assessment/Plan: patient developed congestive changes on the X ray and clinically has new pleural rubs at the left base patient has low urine output, gross hematuria is persisting patient might have developed ATN and while hydration was maximized and creatinine is at baseline his BUN continues to be elevated Code(s): N17.9 - ACUTE KIDNEY FAILURE, UNSPECIFIED; N18.9 - CHRONIC KIDNEY DISEASE, UNSPECIFIED Qualifiers: Chronic kidney disease stage: stage 4 (severe) (2) Hematuria Assessment/Plan: possible combination of cystitis and renal origin repeat UA with sediment is pending PSA is WNL received 2 u PRBC urine culture was negative Urology consult is pending Code(s): R31.9 - HEMATURIA, UNSPECIFIED (3) Thrombocytopenia Assessment/Plan: persisting Hematology consultation appreciated monitor the platelet counts Code(s): D69.6 - THROMBOCYTOPENIA, UNSPECIFIED (4) Diabetes 1.5, managed as type 2 Assessment/Plan: regular insulin coverage Code(s): E10.9 - TYPE 1 DIABETES MELLITUS WITHOUT COMPLICATIONS (5) Closed right hip fracture Assessment/Plan: tolerated well Gamma nail placement restarted Elliquis anticoagulation Lidoderm patches # 2 to the right hip Oxycodone 5 mg every 6 hours as needed Code(s): S72.001A - FRACTURE OF UNSP PART OF NECK OF RIGHT FEMUR, INIT Qualifiers: Encounter type: initial encounter Qualified Code(s): S72.001A - Fracture of unspecified part of neck of right femur, initial encounter for closed fracture (6) Atrial fibrillation Assessment/Plan: chronic, rhythm is controlled Eliquis restarted Code(s): I48.91 - UNSPECIFIED ATRIAL FIBRILLATION Qualifiers: Atrial fibrillation type: paroxysmal Qualified Code(s): I48.0 - Paroxysmal atrial fibrillation (7) CHF (congestive heart failure) Assessment/Plan: there are clinical signs of exacerbation and hydration was stopped po intake continues to be poor Code(s): I50.9 - HEART FAILURE, UNSPECIFIED Qualifiers: Heart failure type: combined systolic and diastolic Heart failure chronicity: chronic Qualified Code(s): I50.42 - Chronic combined systolic (congestive) and diastolic (congestive) heart failure (8) Coronary artery disease Assessment/Plan: had no complications during surgery stable at this moment Code(s): I25.10 - ATHSCL HEART DISEASE OF [place] CORONARY ARTERY W/O ANG PCTRS Qualifiers: Coronary Disease-Associated Artery/Lesion type: [place] artery [place] vs. transplanted heart: [place] heart Associated angina: without angina Qualified Code(s): I25.10 - Atherosclerotic heart disease of [place] coronary artery without angina pectoris
[2019-12-10] MEDS: PANTOPRAZOLE 40 MG TABLET PO SCH (06:24)
[2019-12-10] MEDS: INSULIN SLIDING SCALE (NOVOLOG) 1 VIAL SQ SCH ×3 (06:24→21:34)
[2019-12-10 09:22] LABS: BASO % 0.3 % (0-2.0); EOS % 0.8 % (0-4.5); HEMATOCRIT 27.6 % (35.4-49); LYMPH % 6.7 % (8-40); MCH 30.9 pg (25.7-33.7); MCHC 32.7 g/dl (32.0-35.9); MEAN CELL VOLUME 94.5 fl (80-96); MEAN PLT VOLUME 8.4 fl (7.5-11.1); MONO % 6.9 % (3.8-10.2); NEUT % 85.3 % (42.8-82.8); PLATELET COUNT 121 K/MM3 (134-434); RBC 2.92 M/mm3 (4.00-5.60); RDW 17.6 % (11.9-15.9); WHITE BLOOD COUNT 5.9 K/mm3 (4.0-10.0)
[2019-12-10 09:56] LABS: ALBUMIN 2.1 g/dl (3.4-5.0); CALCIUM 8.1 mg/dL (8.5-10.1); POTASSIUM 4.5 mmol/L (3.5-5.1)
[2019-12-10 09:59] LABS: BILIRUBIN,TOTAL 0.8 mg/dL (0.2-1); CREATININE 2.6 mg/dL (0.55-1.3); TOT PROT 5.6 g/dl (6.4-8.2)
[2019-12-10 10:06] LABS: BLOOD UREA NITROGEN 111.6 mg/dL (7-18)
[2019-12-10] MEDS: hydrALAZINE HCL 25 MG TABLET (FP) PO SCH ×2 (10:17→21:35)
[2019-12-10] MEDS: CARVEDILOL 25 MG TABLET (FP) PO SCH ×2 (10:17→21:35)
[2019-12-10] MEDS: APIXABAN 2.5 MG TABLET PO SCH ×2 (10:17→21:35)
[2019-12-10] MEDS: ALLOPURINOL 100 MG TABLET (FP) PO SCH (10:17)
[2019-12-10] MEDS: ESCITALOPRAM OXALATE 10 MG TABLET PO SCH (10:17)
[2019-12-10] MEDS: LIDOCAINE 5% TOPICAL PATCH TP SCH (10:18)
--- NOTE | 2019-12-10 10:32 | PN ---
Progress Note (short form) - Note Progress Note: No acute cardiac events Vital Signs Temperature 97.9 F 12/10/19 06:00 Pulse Rate 77 12/10/19 06:00 Respiratory Rate 18 12/10/19 06:00 Blood Pressure 137/64 12/10/19 06:00 O2 Sat by Pulse Oximetry (%) 99 12/09/19 21:07 Cardiovascular: Yes: Regular Rate and Rhythm Respiratory: Yes: Regular, Diminished, On Nasal O2 Gastrointestinal: Yes: Soft, Hypoactive Bowel Sounds Edema: No Labs: CBC, BMP 12/10/19 08:49 12/10/19 08:49 Active Medications Acetaminophen (Tylenol -) 325 mg PO Q4H PRN PRN Reason: PAIN LEVEL 6-10 Last Admin: 12/09/19 14:49 Dose: 325 mg Documented by: Allopurinol (Zyloprim -) 100 mg PO DAILY [facility] Last Admin: 12/10/19 10:17 Dose: 100 mg Documented by: Apixaban (Eliquis -) 2.5 mg PO BID [facility] Last Admin: 12/10/19 10:17 Dose: 2.5 mg Documented by: Atorvastatin Calcium (Lipitor -) 80 mg PO [facility] Last Admin: 12/09/19 21:01 Dose: 80 mg Documented by: Carvedilol (Coreg -) 25 mg PO BID [facility] Last Admin: 12/10/19 10:17 Dose: 25 mg Documented by: Docusate Sodium (Colace -) 300 mg PO [facility] Last Admin: 12/09/19 21:02 Dose: 300 mg Documented by: Escitalopram Oxalate (Lexapro -) 10 mg PO DAILY [facility] Last Admin: 12/10/19 10:17 Dose: 10 mg Documented by: Hydralazine HCl (Apresoline -) 25 mg PO BID [facility] Last Admin: 12/10/19 10:17 Dose: 25 mg Documented by: Insulin Aspart (Novolog Vial Sliding Scale -) 1 vial SQ [facility]; Protocol Last Admin: 12/10/19 06:24 Dose: 2 units Documented by: Lidocaine (Lidoderm Patch -) 2 patch TP DAILY [facility] Last Admin: 12/10/19 10:18 Dose: 2 patch Documented by: Miscellaneous (Lidoderm Patch Removal) 2 each MC DAILY@2200 [facility] Last Admin: 12/09/19 21:07 Dose: 2 each Documented by: Ondansetron HCl (Zofran Injection) 4 mg IVPUSH Q6H PRN PRN Reason: NAUSEA AND/OR VOMITING Oxycodone HCl (Roxicodone -) 5 mg PO Q8H PRN PRN Reason: PAIN LEVEL 6-10 Last Admin: 12/09/19 09:14 Dose: 5 mg Documented by: Pantoprazole Sodium (Protonix -) 40 mg PO ACBK [facility] Last Admin: 12/10/19 06:24 Dose: 40 mg Documented by: - ....Imaging Chest X-ray: Report Reviewed (Congestion and right effusion) Assessment/Plan Imaging - Results Chest X-ray: Other (cardiomegaly, , volume loss RLL) X-ray: Other (right femur intertrochanteric fracture) Problem List - Problems (1) CKD (chronic kidney disease) Assessment/Plan: stable, Problems reviewed: Yes Code(s): N18.9 - CHRONIC KIDNEY DISEASE, UNSPECIFIED (2) Diabetes 1.5, managed as type 2 Assessment/Plan: regular insulin coverage start IV D5 1/2 NS at 75 cc if surgery tomorrow Code(s): E10.9 - TYPE 1 DIABETES MELLITUS WITHOUT COMPLICATIONS (3) Closed right hip fracture Assessment/Plan: POD#10 Right Gamma nail Code(s): S72.001A - FRACTURE OF UNSP PART OF NECK OF RIGHT FEMUR, INIT Qualifiers: Encounter type: initial encounter Qualified Code(s): S72.001A - Fracture of unspecified part of neck of right femur, initial encounter for closed fracture (4) Anemia in chronic kidney disease Assessment/Plan: received 1 u pRBC transfusion Code(s): N18.9 - CHRONIC KIDNEY DISEASE, UNSPECIFIED; D63.1 - ANEMIA IN CHRONIC KIDNEY DISEASE Qualifiers: Chronic kidney disease stage: stage 2 (mild) Qualified Code(s): N18.2 - Chronic kidney disease, stage 2 (mild); D63.1 - Anemia in chronic kidney disease (5) Atrial fibrillation Assessment/Plan: chronic Eliquis 2.5 bid resumed post-op Code(s): I48.91 - UNSPECIFIED ATRIAL FIBRILLATION Qualifiers: Atrial fibrillation type: paroxysmal Qualified Code(s): I48.0 - Paroxysmal atrial fibrillation (6) CHF (congestive heart failure) Assessment/Plan: D/c IVF, diuretics as needed Code(s): I50.9 - HEART FAILURE, UNSPECIFIED Qualifiers: Heart failure type: combined systolic and diastolic Heart failure chronicity: chronic Qualified Code(s): I50.42 - Chronic combined systolic (congestive) and diastolic (congestive) heart failure (7) Coronary artery disease Assessment/Plan: Code(s): I25.10 - ATHSCL HEART DISEASE OF [place] CORONARY ARTERY W/O ANG PCTRS Qualifiers: Coronary Disease-Associated Artery/Lesion type: [place] artery [place] vs. transplanted heart: [place] heart Associated angina: without angina Qualified Code(s): I25.10 - Atherosclerotic heart disease of [place] coronary artery without angina pectoris Assessment/Plan 1. POD # 11 post right femur gamma nail insertion 2. Coronary artery disease post percutaneous coronary intervention angina pec toris, clinically stable 3. Acute on chronic diastolic heart failure with pleural effusion 4. Persistent atrial fibrillation on chronic anticoagulation therapy 5. Hypertensive cardiovascular disease 6. Diabetes mellitus 7. Acute on chronic kidney disease and hyperkalemia improving 8. Anemia and thrombocytopenia post transfusion PLAN: cardiacwise same: 1. Post-op care/Renal dysfunction per primary team 2.Cont Eliquis 2.5 bid 3. Continue Coreg 25 bid, Hydralazine 25 bid and Lipitor 80 qd Patient is to follow-up with his child caregiver private home post discharge Dr. Beau Chacon
[2019-12-10] MEDS ORDERED: FUROSEMIDE 40 MG TABLET (FP) PO ONE (14:07)
--- NOTE | 2019-12-10 14:07 | PN ---
Progress Note, Physician History of Present Illness: Pt seen and examined at bedside. He complains of hip discomfort. He has poor po intake. - Current Medication List Current Medications: Active Medications Acetaminophen (Tylenol -) 325 mg PO Q4H PRN PRN Reason: PAIN LEVEL 6-10 Last Admin: 12/09/19 14:49 Dose: 325 mg Documented by: Allopurinol (Zyloprim -) 100 mg PO DAILY [facility] Last Admin: 12/10/19 10:17 Dose: 100 mg Documented by: Apixaban (Eliquis -) 2.5 mg PO BID [facility] Last Admin: 12/10/19 10:17 Dose: 2.5 mg Documented by: Atorvastatin Calcium (Lipitor -) 80 mg PO [facility] Last Admin: 12/09/19 21:01 Dose: 80 mg Documented by: Carvedilol (Coreg -) 25 mg PO BID [facility] Last Admin: 12/10/19 10:17 Dose: 25 mg Documented by: Docusate Sodium (Colace -) 300 mg PO [facility] Last Admin: 12/09/19 21:02 Dose: 300 mg Documented by: Escitalopram Oxalate (Lexapro -) 10 mg PO DAILY [facility] Last Admin: 12/10/19 10:17 Dose: 10 mg Documented by: Hydralazine HCl (Apresoline -) 25 mg PO BID [facility] Last Admin: 12/10/19 10:17 Dose: 25 mg Documented by: Insulin Aspart (Novolog Vial Sliding Scale -) 1 vial SQ [facility]; Protocol Last Admin: 12/10/19 06:24 Dose: 2 units Documented by: Lidocaine (Lidoderm Patch -) 2 patch TP DAILY [facility] Last Admin: 12/10/19 10:18 Dose: 2 patch Documented by: Miscellaneous (Lidoderm Patch Removal) 2 each MC DAILY@2200 [facility] Last Admin: 12/09/19 21:07 Dose: 2 each Documented by: Ondansetron HCl (Zofran Injection) 4 mg IVPUSH Q6H PRN PRN Reason: NAUSEA AND/OR VOMITING Oxycodone HCl (Roxicodone -) 5 mg PO Q8H PRN PRN Reason: PAIN LEVEL 6-10 Last Admin: 12/09/19 09:14 Dose: 5 mg Documented by: Pantoprazole Sodium (Protonix -) 40 mg PO ACBK [facility] Last Admin: 12/10/19 06:24 Dose: 40 mg Documented by: - Objective Vital Signs: Vital Signs Temperature 97.9 F 12/10/19 06:00 Pulse Rate 77 12/10/19 06:00 Respiratory Rate 18 12/10/19 06:00 Blood Pressure 137/64 12/10/19 06:00 O2 Sat by Pulse Oximetry (%) 99 12/09/19 21:07 Constitutional: Yes: Calm Eyes: Yes: Conjunctiva Clear HENT: Yes: Atraumatic Cardiovascular: Yes: S1, S2 Respiratory: Yes: CTA Bilaterally Gastrointestinal: Yes: Soft Genitourinary: Yes: WNL Edema: Yes Edema: LLE: 1+, RLE: 1+ Integumentary: Yes: WNL Neurological: Yes: Oriented Psychiatric: Yes: Oriented Labs: CBC, BMP 12/10/19 08:49 12/10/19 08:49 INR, PTT INR 1.14 (0.83-1.09) H 12/08/19 08:27 Fibrinogen 272.0 mg/dL (238-498) 12/08/19 08:27 Problem List - Problems (1) CKD (chronic kidney disease) Code(s): N18.9 - CHRONIC KIDNEY DISEASE, UNSPECIFIED Qualifiers: Chronic kidney disease stage: stage 3 (moderate) Qualified Code(s): N18.3 - Chronic kidney disease, stage 3 (moderate) (2) Hyperkalemia Code(s): E87.5 - HYPERKALEMIA (3) Acute kidney failure Code(s): N17.9 - ACUTE KIDNEY FAILURE, UNSPECIFIED Qualifiers: Acute renal failure type: with other specified pathological lesion Qualified Code(s): N17.8 - Other acute kidney failure (4) CHF (congestive heart failure) Code(s): I50.9 - HEART FAILURE, UNSPECIFIED Qualifiers: Heart failure type: combined systolic and diastolic Heart failure chronicity: chronic Qualified Code(s): I50.42 - Chronic combined systolic (congestive) and diastolic (congestive) heart failure (5) HTN (hypertension) Code(s): I10 - ESSENTIAL (PRIMARY) HYPERTENSION Qualifiers: Hypertension type: essential hypertension Qualified Code(s): I10 - Essential (primary) hypertension Assessment/Plan Current Medications Generic Name Dose Route Start Last Admin Trade Name Freq PRN Reason Stop Dose Admin Acetaminophen 325 mg 11/25/19 22:28 12/09/19 14:49 Tylenol - PO 325 mg Q4H PRN Administration PAIN LEVEL 6-10 Allopurinol 100 mg 11/26/19 10:00 12/10/19 10:17 Zyloprim - PO 100 mg DAILY MARY Administration Apixaban 2.5 mg 12/08/19 22:00 12/10/19 10:17 Eliquis - PO 2.5 mg BID MARY Administration Atorvastatin Calcium 80 mg 11/26/19 22:00 12/09/19 21:01 Lipitor - PO 80 mg HS MARY Administration Carvedilol 25 mg 11/25/19 22:45 12/10/19 10:17 Coreg - PO 25 mg BID MARY Administration Docusate Sodium 300 mg 12/07/19 22:00 12/09/19 21:02 Colace - PO 300 mg HS MARY Administration Escitalopram Oxalate 10 mg 11/26/19 10:00 12/10/19 10:17 Lexapro - PO 10 mg DAILY MARY Administration Hydralazine HCl 25 mg 11/28/19 11:18 12/10/19 10:17 Apresoline - PO 25 mg BID MARY Administration Insulin Aspart 1 vial 11/26/19 07:00 12/10/19 06:24 Novolog Vial Sliding Scale - SQ 2 units ACHS MARY Administration Protocol Lidocaine 2 patch 12/01/19 10:00 12/10/19 10:18 Lidoderm Patch - TP 2 patch DAILY MARY Administration Miscellaneous 2 each 11/28/19 11:20 12/09/19 21:07 Lidoderm Patch Removal MC 2 each DAILY@2200 MARY Administration Ondansetron HCl 4 mg 11/29/19 14:08 Zofran Injection IVPUSH Q6H PRN NAUSEA AND/OR VOMITING Oxycodone HCl 5 mg 12/08/19 22:15 12/09/19 09:14 Roxicodone - PO 5 mg Q8H PRN Administration PAIN LEVEL 6-10 Pantoprazole Sodium 40 mg 12/02/19 07:15 12/10/19 06:24 Protonix - PO 40 mg ACBK MARY Administration Impression 1. CKD with acute component 2. hx CHF 3. CAD 4. DM 5. HTN 6. hyperlipidemia 7. BPH 8. pleural effusions 9. SPIKE 10. hyperkalemia 11. right femur fracture Plan - will give lasix 40 mg - pt was on 40 mg of lasix at home - repeat labs in am - appetite remains poor - encourage po intake - pain control - avoid nsaids - pt did have congestion on cxr - plus one edema on legs Dr Menezes
[2019-12-10] MEDS: ACETAMINOPHEN 325 MG TABLET (FP) PO PRN (15:20)
[2019-12-10] MEDS ORDERED: INSULIN (NOVOLOG) ASPART 100 UNITS/ML 10ML VIAL ONE (21:14)
--- NOTE | 2019-12-10 21:28 | PN ---
Progress Note, Physician Chief Complaint: PAtient is awake but fall asleep while I am talking to him, his right hip pain is better. 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 Hematuria is persisting and his kidney function is not better. - Current Medication List Current Medications: Active Medications Acetaminophen (Tylenol -) 325 mg PO Q4H PRN PRN Reason: PAIN LEVEL 6-10 Last Admin: 12/10/19 15:20 Dose: 325 mg Documented by: Allopurinol (Zyloprim -) 100 mg PO DAILY [facility] Last Admin: 12/10/19 10:17 Dose: 100 mg Documented by: Apixaban (Eliquis -) 2.5 mg PO BID [facility] Last Admin: 12/10/19 10:17 Dose: 2.5 mg Documented by: Atorvastatin Calcium (Lipitor -) 80 mg PO [facility] Last Admin: 12/09/19 21:01 Dose: 80 mg Documented by: Carvedilol (Coreg -) 25 mg PO BID [facility] Last Admin: 12/10/19 10:17 Dose: 25 mg Documented by: Docusate Sodium (Colace -) 300 mg PO [facility] Last Admin: 12/09/19 21:02 Dose: 300 mg Documented by: Escitalopram Oxalate (Lexapro -) 10 mg PO DAILY [facility] Last Admin: 12/10/19 10:17 Dose: 10 mg Documented by: Hydralazine HCl (Apresoline -) 25 mg PO BID [facility] Last Admin: 12/10/19 10:17 Dose: 25 mg Documented by: Insulin Aspart (Novolog Vial Sliding Scale -) 1 vial SQ [facility]; Protocol Last Admin: 12/10/19 17:06 Dose: 4 units Documented by: Lidocaine (Lidoderm Patch -) 2 patch TP DAILY [facility] Last Admin: 12/10/19 10:18 Dose: 2 patch Documented by: Miscellaneous (Lidoderm Patch Removal) 2 each MC DAILY@2200 [facility] Last Admin: 12/09/19 21:07 Dose: 2 each Documented by: Ondansetron HCl (Zofran Injection) 4 mg IVPUSH Q6H PRN PRN Reason: NAUSEA AND/OR VOMITING Oxycodone HCl (Roxicodone -) 5 mg PO Q8H PRN PRN Reason: PAIN LEVEL 6-10 Last Admin: 12/09/19 09:14 Dose: 5 mg Documented by: Pantoprazole Sodium (Protonix -) 40 mg PO ACBK [facility] Last Admin: 12/10/19 06:24 Dose: 40 mg Documented by: - Objective Vital Signs: Vital Signs Temperature 97.9 F 12/10/19 19:30 Pulse Rate 78 12/10/19 19:30 Respiratory Rate 18 12/10/19 19:30 Blood Pressure 134/77 12/10/19 19:30 O2 Sat by Pulse Oximetry (%) 98 12/10/19 19:30 Constitutional: Yes: No Distress, Calm Eyes: Yes: Conjunctiva Clear, EOM Intact HENT: Yes: Atraumatic, Normocephalic Neck: Yes: Supple, Trachea Midline Cardiovascular: Yes: Regular Rate and Rhythm, S1, S2 Gastrointestinal: Yes: Normal Bowel Sounds, Soft ...Rectal Exam: Yes: Deferred Genitourinary: Yes: Other (Condom catheter present, scrotal edema is present from the catheter which is constrictive) Breast(s): Yes: WNL Extremities: Yes: WNL Edema: No Neurological: Yes: Alert, Oriented Psychiatric: Yes: Alert, Oriented Labs: CBC, BMP 12/10/19 08:49 12/10/19 08:49 INR, PTT INR 1.14 (0.83-1.09) H 12/08/19 08:27 Fibrinogen 272.0 mg/dL (238-498) 12/08/19 08:27 Problem List - Problems (1) [id number] kidney injury Assessment/Plan: patient continues to have elevated BUN low urie output and hamaturia patient might have developed ATN and while hydration was maximized and creatinine is at baseline Code(s): N17.9 - ACUTE KIDNEY FAILURE, UNSPECIFIED; N18.9 - CHRONIC KIDNEY DISEASE, UNSPECIFIED Qualifiers: Chronic kidney disease stage: stage 4 (severe) (2) Hematuria Assessment/Plan: possible combination of cystitis and renal origin PSA is WNL r Code(s): R31.9 - HEMATURIA, UNSPECIFIED (3) Thrombocytopenia Assessment/Plan: plateletes count continues to improve Hematology consultation appreciated platelet counts Code(s): D69.6 - THROMBOCYTOPENIA, UNSPECIFIED (4) Diabetes 1.5, managed as type 2 Assessment/Plan: regular insulin coverage Code(s): E10.9 - TYPE 1 DIABETES MELLITUS WITHOUT COMPLICATIONS (5) Closed right hip fracture Assessment/Plan: tolerated well Gamma nail placement restarted Elliquis anticoagulation Lidoderm patches # 2 to the right hip Oxycodone 5 mg every 6 hours as needed Code(s): S72.001A - FRACTURE OF UNSP PART OF NECK OF RIGHT FEMUR, INIT Qualifiers: Encounter type: initial encounter Qualified Code(s): S72.001A - Fracture of unspecified part of neck of right femur, initial encounter for closed fracture (6) Atrial fibrillation Assessment/Plan: chronic, rhythm is controlled Eliquis restarted Code(s): I48.91 - UNSPECIFIED ATRIAL FIBRILLATION Qualifiers: Atrial fibrillation type: paroxysmal Qualified Code(s): I48.0 - Paroxysmal atrial fibrillation (7) CHF (congestive heart failure) Assessment/Plan: there are clinical signs of exacerbation and hydration was stopped po intake continues to be poor Code(s): I50.9 - HEART FAILURE, UNSPECIFIED Qualifiers: Heart failure type: combined systolic and diastolic Heart failure chronicity: chronic Qualified Code(s): I50.42 - Chronic combined systolic (congestive) and diastolic (congestive) heart failure (8) Coronary artery disease Assessment/Plan: had no complications during surgery stable at this moment Code(s): I25.10 - ATHSCL HEART DISEASE OF [place] CORONARY ARTERY W/O ANG PCTRS Qualifiers: Coronary Disease-Associated Artery/Lesion type: [place] artery [place] vs. transplanted heart: [place] heart Associated angina: without angina Qualified Code(s): I25.10 - Atherosclerotic heart disease of [place] coronary artery without angina pectoris
[2019-12-10] MEDS: DOCUSATE SODIUM 100 MG CAPSULE (FP) PO SCH (21:34)
[2019-12-10] MEDS: LIDOCAINE PATCH REMOVAL MC SCH (21:35)
[2019-12-10] MEDS: ATORVASTATIN CA 80 MG TABLET (FP) PO SCH (21:35)
[2019-12-11] MEDS: INSULIN SLIDING SCALE (NOVOLOG) 1 VIAL SQ SCH ×4 (06:05→21:40)
[2019-12-11] MEDS: PANTOPRAZOLE 40 MG TABLET PO SCH (06:16)
[2019-12-11 08:43] LABS: BASO % 0.3 % (0-2.0); EOS % 0.9 % (0-4.5); HEMOGLOBIN 8.4 GM/dL (11.7-16.9); LYMPH % 9.3 % (8-40); MCH 32.3 pg (25.7-33.7); MCHC 33.7 g/dl (32.0-35.9); MEAN CELL VOLUME 95.7 fl (80-96); MEAN PLT VOLUME 8.8 fl (7.5-11.1); NEUT % 82.5 % (42.8-82.8); PLATELET COUNT 111 K/MM3 (134-434); RBC 2.61 M/mm3 (4.00-5.60); RDW 16.9 % (11.9-15.9)
[2019-12-11 09:08] LABS: ALBUMIN 1.9 g/dl (3.4-5.0); BILIRUBIN,TOTAL 0.7 mg/dL (0.2-1); CREATININE 2.5 mg/dL (0.55-1.3); POTASSIUM 4.5 mmol/L (3.5-5.1); TOT PROT 5.2 g/dl (6.4-8.2)
[2019-12-11] MEDS: LIDOCAINE 5% TOPICAL PATCH TP SCH (09:52)
[2019-12-11] MEDS: APIXABAN 2.5 MG TABLET PO SCH (09:53)
[2019-12-11] MEDS: CARVEDILOL 25 MG TABLET (FP) PO SCH ×2 (09:53→21:36)
[2019-12-11] MEDS: hydrALAZINE HCL 25 MG TABLET (FP) PO SCH ×2 (09:53→21:36)
[2019-12-11] MEDS: ALLOPURINOL 100 MG TABLET (FP) PO SCH (09:53)
[2019-12-11] MEDS: ESCITALOPRAM OXALATE 10 MG TABLET PO SCH (09:53)
--- NOTE | 2019-12-11 12:03 | PN ---
Progress Note (short form) - Note Progress Note: No acute cardiac events, on Eliquis Vital Signs Temperature 98.2 F 12/11/19 09:00 Pulse Rate 75 12/11/19 09:00 Respiratory Rate 20 12/11/19 09:00 Blood Pressure 125/57 L 12/11/19 09:00 O2 Sat by Pulse Oximetry (%) 98 12/10/19 21:00 Cardiovascular: Yes: Regular Rate and Rhythm Respiratory: Yes: Regular, Diminished, On Nasal O2 Gastrointestinal: Yes: Soft, Hypoactive Bowel Sounds Edema: No Labs: CBC, BMP 12/11/19 07:25 12/11/19 07:25 Active Medications Acetaminophen (Tylenol -) 325 mg PO Q4H PRN PRN Reason: PAIN LEVEL 6-10 Last Admin: 12/10/19 15:20 Dose: 325 mg Documented by: Allopurinol (Zyloprim -) 100 mg PO DAILY [facility] Last Admin: 12/11/19 09:53 Dose: 100 mg Documented by: Apixaban (Eliquis -) 2.5 mg PO BID [facility] Last Admin: 12/11/19 09:53 Dose: 2.5 mg Documented by: Atorvastatin Calcium (Lipitor -) 80 mg PO [facility] Last Admin: 12/10/19 21:35 Dose: 80 mg Documented by: Carvedilol (Coreg -) 25 mg PO BID [facility] Last Admin: 12/11/19 09:53 Dose: 25 mg Documented by: Docusate Sodium (Colace -) 300 mg PO [facility] Last Admin: 12/10/19 21:34 Dose: 300 mg Documented by: Escitalopram Oxalate (Lexapro -) 10 mg PO DAILY [facility] Last Admin: 12/11/19 09:53 Dose: 10 mg Documented by: Hydralazine HCl (Apresoline -) 25 mg PO BID [facility] Last Admin: 12/11/19 09:53 Dose: 25 mg Documented by: Insulin Aspart (Novolog Vial Sliding Scale -) 1 vial SQ [facility]; Protocol Last Admin: 12/11/19 11:36 Dose: 2 units Documented by: Lidocaine (Lidoderm Patch -) 2 patch TP DAILY [facility] Last Admin: 12/11/19 09:52 Dose: 2 patch Documented by: Miscellaneous (Lidoderm Patch Removal) 2 each MC DAILY@2200 [facility] Last Admin: 12/10/19 21:35 Dose: 2 each Documented by: Ondansetron HCl (Zofran Injection) 4 mg IVPUSH Q6H PRN PRN Reason: NAUSEA AND/OR VOMITING Oxycodone HCl (Roxicodone -) 5 mg PO Q8H PRN PRN Reason: PAIN LEVEL 6-10 Last Admin: 12/09/19 09:14 Dose: 5 mg Documented by: Pantoprazole Sodium (Protonix -) 40 mg PO ACBK [facility] Last Admin: 12/11/19 06:16 Dose: 40 mg Documented by: - ....Imaging Chest X-ray: Report Reviewed (Congestion and right effusion) Assessment/Plan Imaging - Results Chest X-ray: Other (cardiomegaly, , volume loss RLL) X-ray: Other (right femur intertrochanteric fracture) Problem List - Problems (1) CKD (chronic kidney disease) Assessment/Plan: stable, Problems reviewed: Yes Code(s): N18.9 - CHRONIC KIDNEY DISEASE, UNSPECIFIED (2) Diabetes 1.5, managed as type 2 Assessment/Plan: regular insulin coverage start IV D5 1/2 NS at 75 cc if surgery tomorrow Code(s): E10.9 - TYPE 1 DIABETES MELLITUS WITHOUT COMPLICATIONS (3) Closed right hip fracture Assessment/Plan: POD#10 Right Gamma nail Code(s): S72.001A - FRACTURE OF UNSP PART OF NECK OF RIGHT FEMUR, INIT Qualifiers: Encounter type: initial encounter Qualified Code(s): S72.001A - Fracture of unspecified part of neck of right femur, initial encounter for closed fracture (4) Anemia in chronic kidney disease Assessment/Plan: received 1 u pRBC transfusion Code(s): N18.9 - CHRONIC KIDNEY DISEASE, UNSPECIFIED; D63.1 - ANEMIA IN CHRONIC KIDNEY DISEASE Qualifiers: Chronic kidney disease stage: stage 2 (mild) Qualified Code(s): N18.2 - Chronic kidney disease, stage 2 (mild); D63.1 - Anemia in chronic kidney disease (5) Atrial fibrillation Assessment/Plan: chronic Eliquis 2.5 bid resumed post-op Code(s): I48.91 - UNSPECIFIED ATRIAL FIBRILLATION Qualifiers: Atrial fibrillation type: paroxysmal Qualified Code(s): I48.0 - Paroxysmal atrial fibrillation (6) CHF (congestive heart failure) Assessment/Plan: D/c IVF, diuretics as needed Code(s): I50.9 - HEART FAILURE, UNSPECIFIED Qualifiers: Heart failure type: combined systolic and diastolic Heart failure chronicity: chronic Qualified Code(s): I50.42 - Chronic combined systolic (congestive) and diastolic (congestive) heart failure (7) Coronary artery disease Assessment/Plan: Code(s): I25.10 - ATHSCL HEART DISEASE OF [place] CORONARY ARTERY W/O ANG PCTRS Qualifiers: Coronary Disease-Associated Artery/Lesion type: [place] artery [place] vs. transplanted heart: [place] heart Associated angina: without angina Qualified Code(s): I25.10 - Atherosclerotic heart disease of [place] coronary artery without angina pectoris Assessment/Plan 1. POD # 12 post right femur gamma nail insertion 2. Coronary artery disease post percutaneous coronary intervention angina pectoris, clinically stable 3. Acute on chronic diastolic heart failure with pleural effusion 4. Persistent atrial fibrillation on chronic anticoagulation therapy 5. Hypertensive cardiovascular disease 6. Diabetes mellitus 7. Acute on chronic kidney disease and hyperkalemia improving 8. Anemia and thrombocytopenia post transfusion PLAN: cardiacwise same: 1. Post-op care/Renal dysfunction per primary team 2.Cont Eliquis 2.5 bid 3. 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 Beau Chacon
[2019-12-11] MEDS ORDERED: FUROSEMIDE 40 MG/4 ML INJECTABLE VIAL IVPUSH ONE (12:55)
--- NOTE | 2019-12-11 12:57 | PN ---
Progress Note, Physician Chief Complaint: SPIKE/CKD History of Present Illness: Seen and examined at the bedside awake and alert offers no acute complaints no cough, chest pain, fever,chills, N/V/D tolerating oral diet - Current Medication List Current Medications: Active Medications Acetaminophen (Tylenol -) 325 mg PO Q4H PRN PRN Reason: PAIN LEVEL 6-10 Last Admin: 12/10/19 15:20 Dose: 325 mg Documented by: Allopurinol (Zyloprim -) 100 mg PO DAILY [facility] Last Admin: 12/11/19 09:53 Dose: 100 mg Documented by: Apixaban (Eliquis -) 2.5 mg PO BID [facility] Last Admin: 12/11/19 09:53 Dose: 2.5 mg Documented by: Atorvastatin Calcium (Lipitor -) 80 mg PO [facility] Last Admin: 12/10/19 21:35 Dose: 80 mg Documented by: Carvedilol (Coreg -) 25 mg PO BID [facility] Last Admin: 12/11/19 09:53 Dose: 25 mg Documented by: Docusate Sodium (Colace -) 300 mg PO [facility] Last Admin: 12/10/19 21:34 Dose: 300 mg Documented by: Escitalopram Oxalate (Lexapro -) 10 mg PO DAILY [facility] Last Admin: 12/11/19 09:53 Dose: 10 mg Documented by: Furosemide (Lasix Injection -) 40 mg IVPUSH ONCE ONE Stop: 12/11/19 12:56 Hydralazine HCl (Apresoline -) 25 mg PO BID [facility] Last Admin: 12/11/19 09:53 Dose: 25 mg Documented by: Insulin Aspart (Novolog Vial Sliding Scale -) 1 vial SQ [facility]; Protocol Last Admin: 12/11/19 11:36 Dose: 2 units Documented by: Lidocaine (Lidoderm Patch -) 2 patch TP DAILY [facility] Last Admin: 12/11/19 09:52 Dose: 2 patch Documented by: Miscellaneous (Lidoderm Patch Removal) 2 each MC DAILY@2200 [facility] Last Admin: 12/10/19 21:35 Dose: 2 each Documented by: Ondansetron HCl (Zofran Injection) 4 mg IVPUSH Q6H PRN PRN Reason: NAUSEA AND/OR VOMITING Oxycodone HCl (Roxicodone -) 5 mg PO Q8H PRN PRN Reason: PAIN LEVEL 6-10 Last Admin: 12/09/19 09:14 Dose: 5 mg Documented by: Pantoprazole Sodium (Protonix -) 40 mg PO [facility] Last Admin: 12/11/19 06:16 Dose: 40 mg Documented by: - Objective Vital Signs: Vital Signs Temperature 98.2 F 12/11/19 09:00 Pulse Rate 75 12/11/19 09:00 Respiratory Rate 20 12/11/19 09:00 Blood Pressure 125/57 L 12/11/19 09:00 O2 Sat by Pulse Oximetry (%) 100 12/11/19 09:00 Constitutional: Yes: No Distress HENT: Yes: Atraumatic Neck: Yes: Supple Cardiovascular: Yes: Regular Rate and Rhythm Respiratory: Yes: Diminished Gastrointestinal: Yes: Soft Extremities: Yes: Other (+ sacral edema) Edema: Yes Labs: CBC, BMP 12/11/19 07:25 12/11/19 07:25 INR, PTT INR 1.14 (0.83-1.09) H 12/08/19 08:27 Fibrinogen 272.0 mg/dL (238-498) 12/08/19 08:27 Assessment/Plan Impression 1. CKD with acute component 2. hx CHF 3. CAD 4. DM 5. HTN 6. hyperlipidemia 7. BPH 8. pleural effusions 9. SPIKE 10. hyperkalemia 11. right femur fracture Plan Renal function stable. No overt electrolyte or acid/base disturbance Will give Lasix 40mg IV x 1 today as pt still has edema. Trend renal function and electrolytes daily Jacobo Jose DO
--- NOTE | 2019-12-11 16:13 | PN ---
Progress Note, Physician Chief Complaint: PAtient is awake, falls intermittently asleep while talking to him, weak,with very poor appetite. Hematuria is persisting. 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 Hematuria is persisting and his kidney function is not recovering to baseline. He is extremely weak, unable to perform or participate in physical therapy. The pain in the right thigh is persisting. - Current Medication List Current Medications: Active Medications Acetaminophen (Tylenol -) 325 mg PO Q4H PRN PRN Reason: PAIN LEVEL 6-10 Last Admin: 12/10/19 15:20 Dose: 325 mg Documented by: Allopurinol (Zyloprim -) 100 mg PO DAILY [facility] Last Admin: 12/11/19 09:53 Dose: 100 mg Documented by: Atorvastatin Calcium (Lipitor -) 80 mg PO [facility] Last Admin: 12/10/19 21:35 Dose: 80 mg Documented by: Carvedilol (Coreg -) 25 mg PO BID [facility] Last Admin: 12/11/19 09:53 Dose: 25 mg Documented by: Docusate Sodium (Colace -) 300 mg PO [facility] Last Admin: 12/10/19 21:34 Dose: 300 mg Documented by: Escitalopram Oxalate (Lexapro -) 10 mg PO DAILY [facility] Last Admin: 12/11/19 09:53 Dose: 10 mg Documented by: Hydralazine HCl (Apresoline -) 25 mg PO BID [facility] Last Admin: 12/11/19 09:53 Dose: 25 mg Documented by: Insulin Aspart (Novolog Vial Sliding Scale -) 1 vial SQ [facility]; Protocol Last Admin: 12/11/19 11:36 Dose: 2 units Documented by: Lidocaine (Lidoderm Patch -) 2 patch TP DAILY [facility] Last Admin: 12/11/19 09:52 Dose: 2 patch Documented by: Miscellaneous (Lidoderm Patch Removal) 2 each MC DAILY@2200 [facility] Last Admin: 12/10/19 21:35 Dose: 2 each Documented by: Ondansetron HCl (Zofran Injection) 4 mg IVPUSH Q6H PRN PRN Reason: NAUSEA AND/OR VOMITING Oxycodone HCl (Roxicodone -) 5 mg PO Q8H PRN PRN Reason: PAIN LEVEL 6-10 Last Admin: 12/09/19 09:14 Dose: 5 mg Documented by: Pantoprazole Sodium (Protonix -) 40 mg PO [facility] Last Admin: 12/11/19 06:16 Dose: 40 mg Documented by: - Objective Vital Signs: Vital Signs Temperature 98.2 F 12/11/19 09:00 Pulse Rate 75 12/11/19 09:00 Respiratory Rate 20 12/11/19 09:00 Blood Pressure 125/57 L 12/11/19 09:00 O2 Sat by Pulse Oximetry (%) 100 12/11/19 09:00 Constitutional: Yes: No Distress, Calm Eyes: Yes: Conjunctiva Clear, EOM Intact HENT: Yes: Atraumatic, Normocephalic Cardiovascular: Yes: Regular Rate and Rhythm, S1, S2 Respiratory: Yes: On Nasal O2 Gastrointestinal: Yes: Normal Bowel Sounds, Soft. No: Hepatomegaly Extremities: No: Calf Tenderness Edema: No Peripheral Pulses WNL: Yes Integumentary: Yes: Pressure Ulcer ( of the sacreal area stage 3) Wound/Incision: Yes: Well Approximated, Dressing Dry and Intact Psychiatric: Yes: Alert Labs: CBC, BMP 12/11/19 07:25 12/11/19 07:25 INR, PTT INR 1.14 (0.83-1.09) H 12/08/19 08:27 Fibrinogen 272.0 mg/dL (238-498) 12/08/19 08:27 Problem List - Problems (1) [id number] kidney injury Assessment/Plan: patient continues to have elevated BUN and hematuria, and kidneys are not recovering Code(s): N17.9 - ACUTE KIDNEY FAILURE, UNSPECIFIED; N18.9 - CHRONIC KIDNEY DISEASE, UNSPECIFIED Qualifiers: Chronic kidney disease stage: stage 4 (severe) (2) Hematuria Assessment/Plan: transfuse 1 unit PRBC hold eliquis, discuss with family and they are aware of the risks including stroke and acute GA and PSA is WNL r Code(s): R31.9 - HEMATURIA, UNSPECIFIED (3) Diabetes 1.5, managed as type 2 Assessment/Plan: regular insulin coverage Code(s): E10.9 - TYPE 1 DIABETES MELLITUS WITHOUT COMPLICATIONS (4) Closed right hip fracture Assessment/Plan: tolerated well Gamma nail placement Lidoderm patches # 2 to the right hip Oxycodone 5 mg every 6 hours as needed Code(s): S72.001A - FRACTURE OF UNSP PART OF NECK OF RIGHT FEMUR, INIT Qualifiers: Encounter type: initial encounter Qualified Code(s): S72.001A - Fracture of unspecified part of neck of right femur, initial encounter for closed fracture (5) Atrial fibrillation Assessment/Plan: chronic, rhythm is controlled Eliquis restarted Code(s): I48.91 - UNSPECIFIED ATRIAL FIBRILLATION Qualifiers: Atrial fibrillation type: paroxysmal Qualified Code(s): I48.0 - Paroxysmal atrial fibrillation (6) CHF (congestive heart failure) Assessment/Plan: there are clinical signs of exacerbation and hydration was stopped po intake continues to be poor Code(s): I50.9 - HEART FAILURE, UNSPECIFIED Qualifiers: Heart failure type: combined systolic and diastolic Heart failure chronicity: chronic Qualified Code(s): I50.42 - Chronic combined systolic (congestive) and diastolic (congestive) heart failure (7) Coronary artery disease Assessment/Plan: had no complications during surgery stable at this moment Code(s): I25.10 - ATHSCL HEART DISEASE OF [place] CORONARY ARTERY W/O ANG PCTRS Qualifiers: Coronary Disease-Associated Artery/Lesion type: [place] artery [place] vs. transplanted heart: [place] heart Associated angina: without angina Qualified Code(s): I25.10 - Atherosclerotic heart disease of [place] coronary artery without angina pectoris (8) Pressure ulcer Assessment/Plan: stage 3 of the sacral area patient requires gel mattress and a hospital bed Code(s): L89.90 - PRESSURE ULCER OF UNSPECIFIED SITE, UNSPECIFIED STAGE (9) Malnutrition Assessment/Plan: using Nepro supplementation Problems reviewed: Yes Code(s): E46 - UNSPECIFIED PROTEIN-CALORIE MALNUTRITION Qualifiers: Malnutrition type: protein-calorie malnutrition Protein-calorie malnutrition severity: severe Qualified Code(s): E43 - Unspecified severe protein-calorie malnutrition Assessment/Plan 74 yo male with recent right intertrochanteric fracture s/p GAmma nail placement, Stage 3 pressure ulcer, proteic caloric malnutrition non ambulatory and requiring assistance with toiletting, turning and and positioning. He is terminally ill due to atherosclerotic cardiomyopathy, acute renal failur e on chronic chronic failure,and anemia requiring multiple transfusions. Attempts to reestablish his renal function to baseline have failed in the context of persistent hematuria. The family will not proceed with further testing or procedures and requests comfort care.
[2019-12-11] MEDS: DOCUSATE SODIUM 100 MG CAPSULE (FP) PO SCH (21:36)
[2019-12-11] MEDS: LIDOCAINE PATCH REMOVAL MC SCH (21:36)
[2019-12-11] MEDS: ATORVASTATIN CA 80 MG TABLET (FP) PO SCH (21:36)
[2019-12-11] MEDS: oxyCODONE HCL 5 MG TABLET PO PRN (23:30)
[2019-12-11] MEDS: ACETAMINOPHEN 325 MG TABLET (FP) PO PRN (23:31)
[2019-12-12] MEDS: PANTOPRAZOLE 40 MG TABLET PO SCH (06:00)
[2019-12-12] MEDS: INSULIN SLIDING SCALE (NOVOLOG) 1 VIAL SQ SCH ×4 (06:03→21:13)
[2019-12-12] MEDS: oxyCODONE HCL 5 MG TABLET PO PRN (07:58)
[2019-12-12] MEDS: ACETAMINOPHEN 325 MG TABLET (FP) PO PRN (07:59)
[2019-12-12 08:48] LABS: CREATININE 2.6 mg/dL (0.55-1.3); MAGNESIUM 2.2 mg/dL (1.8-2.4); PHOSPHOROUS 3.2 mg/dL (2.5-4.9); POTASSIUM 4.2 mmol/L (3.5-5.1)
[2019-12-12 08:57] LABS: BLOOD UREA NITROGEN 114.1 mg/dL (7-18)
[2019-12-12] MEDS: LIDOCAINE 5% TOPICAL PATCH TP SCH (09:03)
[2019-12-12] MEDS: ESCITALOPRAM OXALATE 10 MG TABLET PO SCH (09:03)
[2019-12-12] MEDS: hydrALAZINE HCL 25 MG TABLET (FP) PO SCH ×2 (09:03→21:13)
[2019-12-12] MEDS: CARVEDILOL 25 MG TABLET (FP) PO SCH ×2 (09:03→21:13)
[2019-12-12] MEDS: ALLOPURINOL 100 MG TABLET (FP) PO SCH (09:03)
--- NOTE | 2019-12-12 09:03 | PN ---
Progress Note, Physician Chief Complaint: PAtient is awake, more alert compared to previous days, weak,with better appetite, complains of pain in the left buttock and sacral area. Hematuria is persisting, received 1 unit PRBC last night. Eliquis was stopped yesterday due to hematuria and need to transfuse repeatedly. 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 Hematuria is persisting and his kidney function is not recovering. The patient is extremely weak, unable to perform or participate in physical therapy. He required assistance of 1 person for turning and positioning. He developed sacral area stage 3 ulcer.. - Current Medication List Current Medications: Active Medications Acetaminophen (Tylenol -) 325 mg PO Q4H PRN PRN Reason: PAIN LEVEL 6-10 Last Admin: 12/12/19 07:59 Dose: 325 mg Documented by: Allopurinol (Zyloprim -) 100 mg PO DAILY [facility] Last Admin: 12/11/19 09:53 Dose: 100 mg Documented by: Atorvastatin Calcium (Lipitor -) 80 mg PO [facility] Last Admin: 12/11/19 21:36 Dose: 80 mg Documented by: Carvedilol (Coreg -) 25 mg PO BID [facility] Last Admin: 12/11/19 21:36 Dose: 25 mg Documented by: Docusate Sodium (Colace -) 300 mg PO [facility] Last Admin: 12/11/19 21:36 Dose: 300 mg Documented by: Escitalopram Oxalate (Lexapro -) 10 mg PO DAILY [facility] Last Admin: 12/11/19 09:53 Dose: 10 mg Documented by: Hydralazine HCl (Apresoline -) 25 mg PO BID [facility] Last Admin: 12/11/19 21:36 Dose: 25 mg Documented by: Insulin Aspart (Novolog Vial Sliding Scale -) 1 vial SQ [facility]; Protocol Last Admin: 12/12/19 06:03 Dose: 2 units Documented by: Lidocaine (Lidoderm Patch -) 2 patch TP DAILY [facility] Last Admin: 12/11/19 09:52 Dose: 2 patch Documented by: Miscellaneous (Lidoderm Patch Removal) 2 each MC DAILY@2200 [facility] Last Admin: 12/11/19 21:36 Dose: 2 each Documented by: Ondansetron HCl (Zofran Injection) 4 mg IVPUSH Q6H PRN PRN Reason: NAUSEA AND/OR VOMITING Oxycodone HCl (Roxicodone -) 5 mg PO Q8H PRN PRN Reason: PAIN LEVEL 6-10 Last Admin: 12/12/19 07:58 Dose: 5 mg Documented by: Pantoprazole Sodium (Protonix -) 40 mg PO [facility] Last Admin: 12/12/19 06:00 Dose: 40 mg Documented by: - Objective Vital Signs: Vital Signs Temperature 97.9 F 12/12/19 06:00 Pulse Rate 75 12/12/19 06:00 Respiratory Rate 18 12/12/19 06:00 Blood Pressure 136/59 L 12/12/19 06:00 O2 Sat by Pulse Oximetry (%) 100 12/11/19 21:00 Constitutional: Yes: Mild Distress Eyes: Yes: Conjunctiva Clear, EOM Intact HENT: Yes: WNL Neck: Yes: WNL Cardiovascular: Yes: Regular Rate and Rhythm, S1, S2 Respiratory: Yes: On Nasal O2. No: SOB, SOB on Exertion, Wheezes Gastrointestinal: Yes: Normal Bowel Sounds, Soft. No: Hepatomegaly, Splenomegaly Breast(s): Yes: WNL Musculoskeletal: Yes: WNL Extremities: No: Calf Tenderness Edema: No Peripheral Pulses WNL: Yes Integumentary: Yes: Pressure Ulcer (os the sacral area stage 3) Wound/Incision: Yes: Clean/Dry Neurological: Yes: Alert, Oriented ...Motor Strength: LLE (weak), RUE (painful to mobilization, unabel to move independently) Psychiatric: Yes: Alert, Oriented Labs: CBC, BMP 12/11/19 07:25 12/12/19 07:46 INR, PTT INR 1.14 (0.83-1.09) H 12/08/19 08:27 Fibrinogen 272.0 mg/dL (238-498) 12/08/19 08:27 Problem List - Problems (1) [id number] kidney injury Assessment/Plan: patient continues to have elevated BUN and hematuria, while creatinine is at baseline his BUN is above 100 persistently despite transfusions and iv fluids Code(s): N17.9 - ACUTE KIDNEY FAILURE, UNSPECIFIED; N18.9 - CHRONIC KIDNEY DISEASE, UNSPECIFIED Qualifiers: Chronic kidney disease stage: stage 4 (severe) (2) Hematuria Assessment/Plan: transfused 1 unit PRBC eliquis is on hold for now, although a cystoscopy would be indicated patient's multiple medical condition, clinical status and level of distress as well as patient's and family's wishes for comfort preclude this procedure discussed with family and are aware of the increased risks including stroke and acute NH and while off Eliquis PSA is WNL r Code(s): R31.9 - HEMATURIA, UNSPECIFIED (3) Diabetes 1.5, managed as type 2 Assessment/Plan: regular insulin coverage Code(s): E10.9 - TYPE 1 DIABETES MELLITUS WITHOUT COMPLICATIONS (4) Closed right hip fracture Assessment/Plan: tolerated well Gamma nail placement Lidoderm patches # 2 to the right hip Oxycodone 5 mg every 6 hours as needed Code(s): S72.001A - FRACTURE OF UNSP PART OF NECK OF RIGHT FEMUR, INIT Qualifiers: Encounter type: initial encounter Qualified Code(s): S72.001A - Fracture of unspecified part of neck of right femur, initial encounter for closed fracture (5) Atrial fibrillation Assessment/Plan: chronic, rhythm is controlled Eliquis on hold due to hematuria which required multiple transfusions Code(s): I48.91 - UNSPECIFIED ATRIAL FIBRILLATION Qualifiers: Atrial fibrillation type: paroxysmal Qualified Code(s): I48.0 - Paroxysmal atrial fibrillation (6) CHF (congestive heart failure) Assessment/Plan: there are clinical signs of exacerbation and hydration was stopped po intake continues to be poor Code(s): I50.9 - HEART FAILURE, UNSPECIFIED Qualifiers: Heart failure type: combined systolic and diastolic Heart failure chronicity: chronic Qualified Code(s): I50.42 - Chronic combined systolic (congestive) and diastolic (congestive) heart failure (7) Coronary artery disease Assessment/Plan: had no complications during surgery stable at this moment Code(s): I25.10 - ATHSCL HEART DISEASE OF [place] CORONARY ARTERY W/O ANG PCTRS Qualifiers: Coronary Disease-Associated Artery/Lesion type: [place] artery [place] vs. transplanted heart: [place] heart Associated angina: without angina Qualified Code(s): I25.10 - Atherosclerotic heart disease of [place] coronary artery without angina pectoris (8) Pressure ulcer Assessment/Plan: stage 3 of the sacral area collagenase applications daily patient requires gel mattress and a hospital bed Code(s): L89.90 - PRESSURE ULCER OF UNSPECIFIED SITE, UNSPECIFIED STAGE (9) Malnutrition Assessment/Plan: using Nepro supplementation Code(s): E46 - UNSPECIFIED PROTEIN-CALORIE MALNUTRITION Qualifiers: Malnutrition type: protein-calorie malnutrition Protein-calorie malnutrition severity: severe Qualified Code(s): E43 - Unspecified severe protein-calorie malnutrition
[2019-12-12] MEDS: ACETAMINOPHEN 325 MG TABLET (FP) PO SCH ×2 (09:26→17:07)
--- NOTE | 2019-12-12 09:45 | PN ---
Progress Note (short form) - Note Progress Note: No acute cardiac events, Joann been d/c'ed due to continuing hematuria, H/H fluctuating Vital Signs Temperature 97.9 F 12/12/19 06:00 Pulse Rate 75 12/12/19 06:00 Respiratory Rate 18 12/12/19 06:00 Blood Pressure 136/59 L 12/12/19 06:00 O2 Sat by Pulse Oximetry (%) 100 12/11/19 21:00 Cardiovascular: Yes: Regular Rate and Rhythm Respiratory: Yes: Regular, Diminished, On Nasal O2 Gastrointestinal: Yes: Soft, Hypoactive Bowel Sounds Edema: No Labs: CBC, BMP 12/11/19 07:25 12/12/19 07:46 Active Medications Acetaminophen (Tylenol -) 325 mg PO Q4H PRN PRN Reason: PAIN LEVEL 6-10 Last Admin: 12/12/19 07:59 Dose: 325 mg Documented by: Acetaminophen (Tylenol -) 650 mg PO Q8H [facility] Last Admin: 12/12/19 09:26 Dose: Not Given Documented by: Allopurinol (Zyloprim -) 100 mg PO DAILY [facility] Last Admin: 12/12/19 09:03 Dose: 100 mg Documented by: Atorvastatin Calcium (Lipitor -) 80 mg PO [facility] Last Admin: 12/11/19 21:36 Dose: 80 mg Documented by: Carvedilol (Coreg -) 25 mg PO BID [facility] Last Admin: 12/12/19 09:03 Dose: 25 mg Documented by: Collagenase (Santyl -) 1 applic TP DAILY [facility]; Protocol Docusate Sodium (Colace -) 300 mg PO [facility] Last Admin: 12/11/19 21:36 Dose: 300 mg Documented by: Escitalopram Oxalate (Lexapro -) 10 mg PO DAILY [facility] Last Admin: 12/12/19 09:03 Dose: 10 mg Documented by: Hydralazine HCl (Apresoline -) 25 mg PO BID [facility] Last Admin: 12/12/19 09:03 Dose: 25 mg Documented by: Insulin Aspart (Novolog Vial Sliding Scale -) 1 vial SQ [facility]; Protocol Last Admin: 12/12/19 06:03 Dose: 2 units Documented by: Lidocaine (Lidoderm Patch -) 2 patch TP DAILY [facility] Last Admin: 12/12/19 09:03 Dose: 2 patch Documented by: Miscellaneous (Lidoderm Patch Removal) 2 each MC DAILY@2200 [facility] Last Admin: 12/11/19 21:36 Dose: 2 each Documented by: Ondansetron HCl (Zofran Injection) 4 mg IVPUSH Q6H PRN PRN Reason: NAUSEA AND/OR VOMITING Oxycodone HCl (Roxicodone -) 5 mg PO Q8H PRN PRN Reason: PAIN LEVEL 6-10 Last Admin: 12/12/19 07:58 Dose: 5 mg Documented by: Pantoprazole Sodium (Protonix -) 40 mg PO ACBK [facility] Last Admin: 12/12/19 06:00 Dose: 40 mg Documented by: - ....Imaging Chest X-ray: Report Reviewed (Congestion and right effusion) Assessment/Plan Imaging - Results Chest X-ray: Other (cardiomegaly, , volume loss RLL) X-ray: Other (right femur intertrochanteric fracture) Problem List - Problems (1) CKD (chronic kidney disease) Assessment/Plan: stable, Problems reviewed: Yes Code(s): N18.9 - CHRONIC KIDNEY DISEASE, UNSPECIFIED (2) Diabetes 1.5, managed as type 2 Assessment/Plan: regular insulin coverage start IV D5 1/2 NS at 75 cc if surgery tomorrow Code(s): E10.9 - TYPE 1 DIABETES MELLITUS WITHOUT COMPLICATIONS (3) Closed right hip fracture Assessment/Plan: POD#10 Right Gamma nail Code(s): S72.001A - FRACTURE OF UNSP PART OF NECK OF RIGHT FEMUR, INIT Qualifiers: Encounter type: initial encounter Qualified Code(s): S72.001A - Fracture of unspecified part of neck of right femur, initial encounter for closed fracture (4) Anemia in chronic kidney disease Assessment/Plan: received 1 u pRBC transfusion Code(s): N18.9 - CHRONIC KIDNEY DISEASE, UNSPECIFIED; D63.1 - ANEMIA IN CHRONIC KIDNEY DISEASE Qualifiers: Chronic kidney disease stage: stage 2 (mild) Qualified Code(s): N18.2 - Chronic kidney disease, stage 2 (mild); D63.1 - Anemia in chronic kidney disease (5) Atrial fibrillation Assessment/Plan: chronic Eliquis 2.5 bid resumed post-op Code(s): I48.91 - UNSPECIFIED ATRIAL FIBRILLATION Qualifiers: Atrial fibrillation type: paroxysmal Qualified Code(s): I48.0 - Paroxysmal atrial fibrillation (6) CHF (congestive heart failure) Assessment/Plan: D/c IVF, diuretics as needed Code(s): I50.9 - HEART FAILURE, UNSPECIFIED Qualifiers: Heart failure type: combined systolic and diastolic Heart failure chronic ity: chronic Qualified Code(s): I50.42 - Chronic combined systolic (congestive) and diastolic (congestive) heart failure (7) Coronary artery disease Assessment/Plan: Code(s): I25.10 - ATHSCL HEART DISEASE OF [place] CORONARY ARTERY W/O ANG PCTRS Qualifiers: Coronary Disease-Associated Artery/Lesion type: [place] artery [place] vs. transplanted heart: [place] heart Associated angina: without angina Qualified Code(s): I25.10 - Atherosclerotic heart disease of [place] coronary artery without angina pectoris Assessment/Plan 1. POD # 12 post right femur gamma nail insertion 2. Coronary artery disease post percutaneous coronary intervention angina pectoris, clinically stable 3. Acute on chronic diastolic heart failure with pleural effusion 4. Persistent atrial fibrillation on chronic anticoagulation therapy 5. Hypertensive cardiovascular disease 6. Diabetes mellitus 7. Acute on chronic kidney disease and hyperkalemia improving 8. Anemia and thrombocytopenia post transfusion PLAN: 1. Post-op care/Renal dysfunction per primary team 2. Eliquis been d/c'ed due to continued hematuria , resume when hemostasis achieved, if not feasible other options (JUSTIN closure) to be considered as oupt 3. Continue Coreg 25 bid, Hydralazine 25 bid and Lipitor 80 qd Patient is to follow-up with his mechanical systems designer post discharge Dr. Beau Chacon
--- NOTE | 2019-12-12 12:00 | PN ---
Progress Note, Physician Chief Complaint: SPIKE/CKD History of Present Illness: Seen and examined at the bedside awake and alert offers no acute complaints no cough, chest pain, fever,chills, N/V/D - Current Medication List Current Medications: Active Medications Acetaminophen (Tylenol -) 325 mg PO Q4H PRN PRN Reason: PAIN LEVEL 6-10 Last Admin: 12/12/19 07:59 Dose: 325 mg Documented by: Acetaminophen (Tylenol -) 650 mg PO Q8H [facility] Last Admin: 12/12/19 09:26 Dose: Not Given Documented by: Allopurinol (Zyloprim -) 100 mg PO DAILY [facility] Last Admin: 12/12/19 09:03 Dose: 100 mg Documented by: Atorvastatin Calcium (Lipitor -) 80 mg PO [facility] Last Admin: 12/11/19 21:36 Dose: 80 mg Documented by: Carvedilol (Coreg -) 25 mg PO BID [facility] Last Admin: 12/12/19 09:03 Dose: 25 mg Documented by: Collagenase (Santyl -) 1 applic TP DAILY [facility]; Protocol Docusate Sodium (Colace -) 300 mg PO [facility] Last Admin: 12/11/19 21:36 Dose: 300 mg Documented by: Escitalopram Oxalate (Lexapro -) 10 mg PO DAILY [facility] Last Admin: 12/12/19 09:03 Dose: 10 mg Documented by: Hydralazine HCl (Apresoline -) 25 mg PO BID [facility] Last Admin: 12/12/19 09:03 Dose: 25 mg Documented by: Insulin Aspart (Novolog Vial Sliding Scale -) 1 vial SQ [facility]; Protocol Last Admin: 12/12/19 11:11 Dose: 2 units Documented by: Lidocaine (Lidoderm Patch -) 2 patch TP DAILY [facility] Last Admin: 12/12/19 09:03 Dose: 2 patch Documented by: Miscellaneous (Lidoderm Patch Removal) 2 each MC DAILY@2200 [facility] Last Admin: 12/11/19 21:36 Dose: 2 each Documented by: Ondansetron HCl (Zofran Injection) 4 mg IVPUSH Q6H PRN PRN Reason: NAUSEA AND/OR VOMITING Oxycodone HCl (Roxicodone -) 5 mg PO Q8H PRN PRN Reason: PAIN LEVEL 6-10 Last Admin: 12/12/19 07:58 Dose: 5 mg Documented by: Pantoprazole Sodium (Protonix -) 40 mg PO [facility] Last Admin: 12/12/19 06:00 Dose: 40 mg Documented by: - Objective Vital Signs: Vital Signs Temperature 96.8 F L 12/12/19 10:00 Pulse Rate 69 12/12/19 10:00 Respiratory Rate 12/12/19 10:00 Blood Pressure 128/61 12/12/19 10:00 O2 Sat by Pulse Oximetry (%) 98 12/12/19 09:00 Constitutional: Yes: No Distress HENT: Yes: Atraumatic Neck: Yes: Supple Cardiovascular: Yes: Regular Rate and Rhythm Respiratory: Yes: Regular Gastrointestinal: Yes: Soft Edema: No Neurological: Yes: Alert Labs: CBC, BMP 12/11/19 07:25 12/12/19 07:46 INR, PTT INR 1.14 (0.83-1.09) H 12/08/19 08:27 Fibrinogen 272.0 mg/dL (238-498) 12/08/19 08:27 Assessment/Plan Impression 1. CKD with acute component 2. hx CHF 3. CAD 4. DM 5. HTN 6. hyperlipidemia 7. BPH 8. pleural effusions 9. SPIKE 10. hyperkalemia 11. right femur fracture Plan Renal function stable. No overt electrolyte or acid/base disturbance Give additional dose of IV Lasix 40 today to help hypervolemia Trend renal function and electrolytes daily Jacobo Jose DO
[2019-12-12] MEDS: COLLAGENASE CLOSTRIDIUM HIST. 30 GRAMS TUBE TP SCH (13:38)
[2019-12-12 15:58] LABS: BASO % 0.3 % (0-2.0); EOS % 0.6 % (0-4.5); HEMATOCRIT 27.7 % (35.4-49); HEMOGLOBIN 9.2 GM/dL (11.7-16.9); LYMPH % 6.3 % (8-40); MCHC 33.1 g/dl (32.0-35.9); MEAN CELL VOLUME 93.6 fl (80-96); MEAN PLT VOLUME 8.6 fl (7.5-11.1); MONO % 5.8 % (3.8-10.2); PLATELET COUNT 125 K/MM3 (134-434); RBC 2.96 M/mm3 (4.00-5.60); RDW 18.4 % (11.9-15.9); WHITE BLOOD COUNT 6.2 K/mm3 (4.0-10.0)
[2019-12-12] MEDS: LIDOCAINE PATCH REMOVAL MC SCH (21:13)
[2019-12-12] MEDS: DOCUSATE SODIUM 100 MG CAPSULE (FP) PO SCH (21:13)
[2019-12-12] MEDS: ATORVASTATIN CA 80 MG TABLET (FP) PO SCH (21:13)
[2019-12-13] MEDS: ACETAMINOPHEN 325 MG TABLET (FP) PO SCH ×3 (01:25→17:25)
[2019-12-13] MEDS: INSULIN SLIDING SCALE (NOVOLOG) 1 VIAL SQ SCH ×5 (06:16→22:00)
[2019-12-13] MEDS: PANTOPRAZOLE 40 MG TABLET PO SCH (06:16)
[2019-12-13] MEDS: oxyCODONE HCL 5 MG TABLET PO PRN ×2 (06:17→14:29)
--- NOTE | 2019-12-13 08:27 | DS ---
Physical Examination Vital Signs: Vital Signs Temperature 97.4 F L 12/13/19 06:00 Pulse Rate 75 12/13/19 06:00 Respiratory Rate 20 12/13/19 06:00 Blood Pressure 148/73 12/13/19 06:00 O2 Sat by Pulse Oximetry (%) 98 12/12/19 21:00 Constitutional: Yes: No Distress, Calm Eyes: Yes: Conjunctiva Clear, EOM Intact Cardiovascular: Yes: Regular Rate and Rhythm, S1, S2 Respiratory: Yes: Regular, CTA Bilaterally Gastrointestinal: Yes: Normal Bowel Sounds, Soft. No: Hepatomegaly, Splenomegaly Renal/: Yes: Hematuria Breast(s): Yes: WNL Musculoskeletal: Yes: Muscle Weakness (generalized,), Other (pain in the right thigh and left buttock) Extremities: No: Calf Tenderness Edema: No Peripheral Pulses WNL: Yes Integumentary: Yes: Pressure Ulcer (o f [place] sacral area stage 3) Wound/Incision: Yes: Well Approximated, Dressing Dry and Intact Neurological: Yes: Alert, Oriented ...Motor Strength: RLE (unabel to move due to pain) Psychiatric: Yes: Alert, Oriented Discharge Summary Problems reviewed: Yes Reason For Visit: CLOSED FRACTURE OF RT HIP Current Active Problems Closed right hip fracture (Acute) Hematuria (Acute) Hyperkalemia (Acute) Malnutrition (Acute) Pressure ulcer (Acute) Thrombocytopenia (Acute) Procedures: Principal: amy nail fracture repair of the right intertrochanteric fracture Hospital Course: 74 yo male admitted for right intertrochanteric fracture after a fall at home. The patient underwent GAmma nail placement. 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 The patient received multiple blood transfusions. Eliquis was restarted after surgery but the patient's hematuria worsened and anticoagulation for Chronic Afib had to be placed on hold again. Due to decreased mobility patient developed a stage 3 pressure ulcer of the sacral area. PAtient wishes to receive comfort care and does not wish to be intubated or resuscitated. HE is non-ambulatory and requires the help of a person with turning and a [place]onda for transfer. HE will be discharged home with [facility]. I will follow up this patient in the community with home visits and as needed. Condition: Stable - Instructions Referrals: Siobhan Mondragon MD [Primary Care Provider] - - Home Medications Comprehensive Discharge Medication List: Ambulatory Orders Cholecalciferol (Vitamin D3) [Vitamin D3 -] 1,000 unit PO DAILY 07/27/19 Ferrous Sulfate [Iron] 325 mg PO DAILY 07/27/19 Folic Acid 1 mg PO DAILY 07/27/19 Isosorbide Mononitrate [Isosorbide Mononitrate ER] 30 mg PO BID 07/27/19 Carvedilol [Coreg -] 25 mg PO BID tablet 07/30/19 Glipizide [Glucotrol -] 5 mg PO BID@0700,1630 tablet 07/30/19 Docusate Sodium [Colace -] 300 mg PO HS capsule 08/15/19 Pantoprazole Sodium [Protonix -] 20 mg PO DAILY tablet.ec 08/15/19 hydrALAZINE HCL [Apresoline -] 25 mg PO TID #0 tablet 08/15/19 Nitroglycerin Sublingual [Nitrostat -] 0.4 mg SL PRN PRN 10/28/19 Allopurinol [Zyloprim -] 100 mg PO DAILY tablet 10/30/19 Alprazolam [Xanax] 0.25 mg PO Q12H PRN tablet 10/30/19 Atorvastatin Ca [Lipitor] 80 mg PO HS tablet 10/30/19 Carvedilol [Coreg -] 25 mg PO BID tablet 10/30/19 Escitalopram Oxalate [Lexapro -] 20 mg PO DAILY tablet 10/30/19 Acetaminophen [Tylenol .Regular Strength -] 650 mg PO Q8H tablet 12/13/19 Allopurinol [Zyloprim -] 100 mg PO DAILY tablet 12/13/19 Atorvastatin Ca [Lipitor] 80 mg PO HS tablet 12/13/19 Carvedilol [Coreg -] 25 mg PO BID tablet 12/13/19 Collagenase Clostridium Hist. [Santyl -] 1 applic TP DAILY 7 Days #1 tube 12/13/19 Docusate Sodium [Colace -] 300 mg PO HS capsule 12/13/19 Escitalopram Oxalate [Lexapro -] 10 mg PO DAILY tablet 12/13/19 Pantoprazole Sodium [Protonix -] 40 mg PO ACBK tablet.ec 12/13/19 oxyCODONE HCL [Roxicodone -] 5 mg PO Q8H PRN tablet 12/13/19
[2019-12-13 08:38] LABS: HEMATOCRIT 27.6 % (35.4-49); HEMOGLOBIN 9.4 GM/dL (11.7-16.9); MCH 32.1 pg (25.7-33.7); MEAN CELL VOLUME 94.4 fl (80-96); MEAN PLT VOLUME 8.4 fl (7.5-11.1); PLATELET COUNT 121 K/MM3 (134-434); RBC 2.92 M/mm3 (4.00-5.60); RDW 18.2 % (11.9-15.9); WHITE BLOOD COUNT 5.1 K/mm3 (4.0-10.0)
[2019-12-13 08:59] LABS: CALCIUM 8.2 mg/dL (8.5-10.1); CREATININE 2.6 mg/dL (0.55-1.3); MAGNESIUM 2.3 mg/dL (1.8-2.4); PHOSPHOROUS 3.3 mg/dL (2.5-4.9); POTASSIUM 4.5 mmol/L (3.5-5.1)
[2019-12-13 09:06] LABS: BLOOD UREA NITROGEN 114.5 mg/dL (7-18)
--- NOTE | 2019-12-13 09:45 | PN ---
Progress Note, Physician History of Present Illness: No acute cardiac events, Joann been d/c'ed due to continuing hematuria, H/H fluctuating - Current Medication List Current Medications: Active Medications Acetaminophen (Tylenol -) 325 mg PO Q4H PRN PRN Reason: PAIN LEVEL 6-10 Last Admin: 12/12/19 07:59 Dose: 325 mg Documented by: Acetaminophen (Tylenol -) 650 mg PO Q8H [facility] Last Admin: 12/13/19 01:25 Dose: Not Given Documented by: Allopurinol (Zyloprim -) 100 mg PO DAILY [facility] Last Admin: 12/12/19 09:03 Dose: 100 mg Documented by: Atorvastatin Calcium (Lipitor -) 80 mg PO [facility] Last Admin: 12/12/19 21:13 Dose: 80 mg Documented by: Carvedilol (Coreg -) 25 mg PO BID [facility] Last Admin: 12/12/19 21:13 Dose: 25 mg Documented by: Collagenase (Santyl -) 1 applic TP DAILY [facility]; Protocol Last Admin: 12/12/19 13:38 Dose: 1 applic Documented by: Docusate Sodium (Colace -) 300 mg PO [facility] Last Admin: 12/12/19 21:13 Dose: 300 mg Documented by: Escitalopram Oxalate (Lexapro -) 10 mg PO DAILY [facility] Last Admin: 12/12/19 09:03 Dose: 10 mg Documented by: Hydralazine HCl (Apresoline -) 25 mg PO BID [facility] Last Admin: 12/12/19 21:13 Dose: 25 mg Documented by: Insulin Aspart (Novolog Vial Sliding Scale -) 1 vial SQ [facility]; Protocol Last Admin: 12/13/19 08:13 Dose: Not Given Documented by: Lidocaine (Lidoderm Patch -) 2 patch TP DAILY [facility] Last Admin: 12/12/19 09:03 Dose: 2 patch Documented by: Miscellaneous (Lidoderm Patch Removal) 2 each MC DAILY@2200 [facility] Last Admin: 12/12/19 21:13 Dose: 2 each Documented by: Ondansetron HCl (Zofran Injection) 4 mg IVPUSH Q6H PRN PRN Reason: NAUSEA AND/OR VOMITING Oxycodone HCl (Roxicodone -) 5 mg PO Q8H PRN PRN Reason: PAIN LEVEL 6-10 Last Admin: 12/13/19 06:17 Dose: 5 mg Documented by: Pantoprazole Sodium (Protonix -) 40 mg PO ACBK [facility] Last Admin: 12/13/19 06:16 Dose: 40 mg Documented by: - Objective Vital Signs: Vital Signs Temperature 97.4 F L 12/13/19 06:00 Pulse Rate 75 12/13/19 06:00 Respiratory Rate 20 12/13/19 06:00 Blood Pressure 148/73 12/13/19 06:00 O2 Sat by Pulse Oximetry (%) 98 12/12/19 21:00 Constitutional: Yes: No Distress, Calm, Thin Neck: Yes: Supple Cardiovascular: Yes: Regular Rate and Rhythm Respiratory: Yes: Regular, Diminished, On Nasal O2 Gastrointestinal: Yes: Soft, Hypoactive Bowel Sounds Edema: No Labs: CBC, BMP 12/13/19 08:09 12/13/19 08:09 INR, PTT INR 1.14 (0.83-1.09) H 12/08/19 08:27 Fibrinogen 272.0 mg/dL (238-498) 12/08/19 08:27 Assessment/Plan Imaging - Results Chest X-ray: Other (cardiomegaly, , volume loss RLL) X-ray: Other (right femur intertrochanteric fracture) Problem List - Problems (1) CKD (chronic kidney disease) Assessment/Plan: stable, Problems reviewed: Yes Code(s): N18.9 - CHRONIC KIDNEY DISEASE, UNSPECIFIED (2) Diabetes 1.5, managed as type 2 Assessment/Plan: regular insulin coverage start IV D5 1/2 NS at 75 cc if surgery tomorrow Code(s): E10.9 - TYPE 1 DIABETES MELLITUS WITHOUT COMPLICATIONS (3) Closed right hip fracture Assessment/Plan: s/p Right Gamma nail Code(s): S72.001A - FRACTURE OF UNSP PART OF NECK OF RIGHT FEMUR, INIT Qualifiers: Encounter type: initial encounter Qualified Code(s): S72.001A - Fracture of unspecified part of neck of right femur, initial encounter for closed fracture (4) Anemia in chronic kidney disease Assessment/Plan: received 1 u pRBC transfusion Code(s): N18.9 - CHRONIC KIDNEY DISEASE, UNSPECIFIED; D63.1 - ANEMIA IN CHRONIC KIDNEY DISEASE Qualifiers: Chronic kidney disease stage: stage 2 (mild) Qualified Code(s): N18.2 - Chronic kidney disease, stage 2 (mild); D63.1 - Anemia in chronic kidney disease (5) Atrial fibrillation Assessment/Plan: chronic Eliquis 2.5 bid held due to hematuria Code(s): I48.91 - UNSPECIFIED ATRIAL FIBRILLATION Qualifiers: Atrial fibrillation type: paroxysmal Qualified Code(s): I48.0 - Paroxysmal atrial fibrillation (6) CHF (congestive heart failure) Assessment/Plan: D/c IVF, diuretics as needed Code(s): I50.9 - HEART FAILURE, UNSPECIFIED Qualifiers: Heart failure type: combined systolic and diastolic Heart failure chronicity: chronic Qualified Code(s): I50.42 - Chronic combined systolic (congestive) and diastolic (congestive) heart failure (7) Coronary artery disease Assessment/Plan: Code(s): I25.10 - ATHSCL HEART DISEASE OF [place] CORONARY ARTERY W/O ANG PCTRS Qualifiers: Coronary Disease-Associated Artery/Lesion type: [place] artery [place] vs. transplanted heart: [place] heart Associated angina: without angina Qualified Code(s): I25.10 - Atherosclerotic heart disease of [place] coronary artery without angina pectoris Assessment/Plan 1. s/p post right femur gamma nail insertion 2. Coronary artery disease post percutaneous coronary intervention angina pectoris, clinically stable 3. Acute on chronic diastolic heart failure with pleural effusion 4. Persistent atrial fibrillation on chronic anticoagulation therapy 5. Hypertensive cardiovascular disease 6. Diabetes mellitus 7. Acute on chronic kidney disease and hyperkalemia improving 8. Anemia and thrombocytopenia post transfusion PLAN: 1. Post-op care/Renal dysfunction per primary team 2. Eliquis been d/c'ed due to continued hematuria , resume when hemostasis achieved, if not feasible other options (JUSTIN closure) to be considered as oupt 3. Continue Coreg 25 bid, Hydralazine 25 bid and Lipitor 80 qd Patient is to follow-up with his occupational health professional post discharge Dr. Beau Chacon
[2019-12-13] MEDS: ALLOPURINOL 100 MG TABLET (FP) PO SCH (10:42)
[2019-12-13] MEDS: CARVEDILOL 25 MG TABLET (FP) PO SCH ×2 (10:42→22:00)
[2019-12-13] MEDS: hydrALAZINE HCL 25 MG TABLET (FP) PO SCH ×2 (10:42→22:00)
[2019-12-13] MEDS: LIDOCAINE 5% TOPICAL PATCH TP SCH (10:45)
[2019-12-13] MEDS: ESCITALOPRAM OXALATE 10 MG TABLET PO SCH (10:45)
[2019-12-13] MEDS: COLLAGENASE CLOSTRIDIUM HIST. 30 GRAMS TUBE TP SCH (10:45)
[2019-12-13 12:46] LABS: ANISOCYTOSIS 1+; MACROCYTOSIS 1+; PLATELET ESTIMATE DECREASED
--- NOTE | 2019-12-13 13:15 | PN ---
Progress Note, Physician History of Present Illness: Pt seen and examined at bedside. He is awake and appears comfortable. - Current Medication List Current Medications: Active Medications Acetaminophen (Tylenol -) 325 mg PO Q4H PRN PRN Reason: PAIN LEVEL 6-10 Last Admin: 12/12/19 07:59 Dose: 325 mg Documented by: Acetaminophen (Tylenol -) 650 mg PO Q8H [facility] Last Admin: 12/13/19 10:42 Dose: 650 mg Documented by: Allopurinol (Zyloprim -) 100 mg PO DAILY [facility] Last Admin: 12/13/19 10:42 Dose: 100 mg Documented by: Atorvastatin Calcium (Lipitor -) 80 mg PO [facility] Last Admin: 12/12/19 21:13 Dose: 80 mg Documented by: Carvedilol (Coreg -) 25 mg PO BID [facility] Last Admin: 12/13/19 10:42 Dose: 25 mg Documented by: Collagenase (Santyl -) 1 applic TP DAILY [facility]; Protocol Last Admin: 12/13/19 10:45 Dose: 1 applic Documented by: Docusate Sodium (Colace -) 300 mg PO [facility] Last Admin: 12/12/19 21:13 Dose: 300 mg Documented by: Escitalopram Oxalate (Lexapro -) 10 mg PO DAILY [facility] Last Admin: 12/13/19 10:45 Dose: 10 mg Documented by: Hydralazine HCl (Apresoline -) 25 mg PO BID [facility] Last Admin: 12/13/19 10:42 Dose: 25 mg Documented by: Insulin Aspart (Novolog Vial Sliding Scale -) 1 vial SQ ACHS [facility]; Protocol Last Admin: 12/13/19 12:00 Dose: 4 units Documented by: Lidocaine (Lidoderm Patch -) 2 patch TP DAILY [facility] Last Admin: 12/13/19 10:45 Dose: 2 patch Documented by: Miscellaneous (Lidoderm Patch Removal) 2 each MC DAILY@2200 [facility] Last Admin: 12/12/19 21:13 Dose: 2 each Documented by: Ondansetron HCl (Zofran Injection) 4 mg IVPUSH Q6H PRN PRN Reason: NAUSEA AND/OR VOMITING Oxycodone HCl (Roxicodone -) 5 mg PO Q8H PRN PRN Reason: PAIN LEVEL 6-10 Last Admin: 12/13/19 06:17 Dose: 5 mg Documented by: Pantoprazole Sodium (Protonix -) 40 mg PO ACBK [facility] Last Admin: 12/13/19 06:16 Dose: 40 mg Documented by: - Objective Vital Signs: Vital Signs Temperature 97.4 F L 12/13/19 06:00 Pulse Rate 75 12/13/19 06:00 Respiratory Rate 20 12/13/19 06:00 Blood Pressure 148/73 12/13/19 06:00 O2 Sat by Pulse Oximetry (%) 98 12/12/19 21:00 Constitutional: Yes: Calm Eyes: Yes: Conjunctiva Clear HENT: Yes: Atraumatic Cardiovascular: Yes: S1, S2 Respiratory: Yes: CTA Bilaterally, On Nasal O2 Gastrointestinal: Yes: Soft Genitourinary: Yes: WNL Edema: No Neurological: Yes: Oriented Psychiatric: Yes: Oriented Labs: CBC, BMP 12/13/19 08:09 12/13/19 08:09 INR, PTT INR 1.14 (0.83-1.09) H 12/08/19 08:27 Fibrinogen 272.0 mg/dL (238-498) 12/08/19 08:27 Problem List - Problems (1) CKD (chronic kidney disease) Code(s): N18.9 - CHRONIC KIDNEY DISEASE, UNSPECIFIED Qualifiers: Chronic kidney disease stage: stage 3 (moderate) Qualified Code(s): N18.3 - Chronic kidney disease, stage 3 (moderate) (2) Hyperkalemia Code(s): E87.5 - HYPERKALEMIA (3) Acute kidney failure Code(s): N17.9 - ACUTE KIDNEY FAILURE, UNSPECIFIED Qualifiers: Acute renal failure type: with other specified pathological lesion Qualified Code(s): N17.8 - Other acute kidney failure (4) CHF (congestive heart failure) Code(s): I50.9 - HEART FAILURE, UNSPECIFIED Qualifiers: Heart failure type: combined systolic and diastolic Heart failure chronicity: chronic Qualified Code(s): I50.42 - Chronic combined systolic (congestive) and diastolic (congestive) heart failure (5) HTN (hypertension) Code(s): I10 - ESSENTIAL (PRIMARY) HYPERTENSION Qualifiers: Hypertension type: essential hypertension Qualified Code(s): I10 - E ssential (primary) hypertension Assessment/Plan Current Medications Generic Name Dose Route Start Last Admin Trade Name Freq PRN Reason Stop Dose Admin Acetaminophen 325 mg 11/25/19 22:28 12/12/19 07:59 Tylenol - PO 325 mg Q4H PRN Administration PAIN LEVEL 6-10 Acetaminophen 650 mg 12/12/19 09:15 12/13/19 10:42 Tylenol - PO 650 mg Q8H [facility] Administration Allopurinol 100 mg 11/26/19 10:00 12/13/19 10:42 Zyloprim - PO 100 mg DAILY [facility] Administration Atorvastatin Calcium 80 mg 11/26/19 22:00 12/12/19 21:13 Lipitor - PO 80 mg HS [facility] Administration Carvedilol 25 mg 11/25/19 22:45 12/13/19 10:42 Coreg - PO 25 mg BID [facility] Administration Collagenase 1 applic 12/12/19 10:00 12/13/19 10:45 Santyl - TP 1 applic DAILY [facility] Administration Protocol Docusate Sodium 300 mg 12/07/19 22:00 12/12/19 21:13 Colace - PO 300 mg HS [facility] Administration Escitalopram Oxalate 10 mg 11/26/19 10:00 12/13/19 10:45 Lexapro - PO 10 mg DAILY [facility] Administration Hydralazine HCl 25 mg 11/28/19 11:18 12/13/19 10:42 Apresoline - PO 25 mg BID [facility] Administration Insulin Aspart 1 vial 11/26/19 07:00 12/13/19 12:00 Novolog Vial Sliding Scale - SQ 4 units ACHS [facility] Administration Protocol Lidocaine 2 patch 12/01/19 10:00 12/13/19 10:45 Lidoderm Patch - TP 2 patch DAILY [facility] Administration Miscellaneous 2 each 11/28/19 11:20 12/12/19 21:13 Lidoderm Patch Removal MC 2 each DAILY@2200 [facility] Administration Ondansetron HCl 4 mg 11/29/19 14:08 Zofran Injection IVPUSH Q6H PRN NAUSEA AND/OR VOMITING Oxycodone HCl 5 mg 12/08/19 22:15 12/13/19 06:17 Roxicodone - PO 5 mg Q8H PRN Administration PAIN LEVEL 6-10 Pantoprazole Sodium 40 mg 12/02/19 07:15 12/13/19 06:16 Protonix - PO 40 mg ACBK [facility] Administration Impression 1. CKD with acute component 2. hx CHF 3. CAD 4. DM 5. HTN 6. hyperlipidemia 7. BPH 8. pleural effusions 9. SPIKE 10. hyperkalemia 11. right femur fracture Plan - monitor renal function in rehab - renal diet - lasix prn - will need outpt follow up - pain control - avoid nsaids Dr Menezes
[2019-12-13] MEDS ORDERED: PT OWN MED DRAWER 7, Y5N ONE (17:14)
[2019-12-13] MEDS: DOCUSATE SODIUM 100 MG CAPSULE (FP) PO SCH (21:59)
[2019-12-13] MEDS: LIDOCAINE PATCH REMOVAL MC SCH (22:00)
[2019-12-13] MEDS: ATORVASTATIN CA 80 MG TABLET (FP) PO SCH (22:00)
[2019-12-14] MEDS: ACETAMINOPHEN 325 MG TABLET (FP) PO SCH ×3 (00:55→16:41)
[2019-12-14] MEDS: PANTOPRAZOLE 40 MG TABLET PO SCH (06:21)
[2019-12-14] MEDS: INSULIN SLIDING SCALE (NOVOLOG) 1 VIAL SQ SCH ×4 (06:21→21:35)
[2019-12-14 08:32] LABS: ALBUMIN 1.8 g/dl (3.4-5.0); CALCIUM 7.9 mg/dL (8.5-10.1); CREATININE 2.6 mg/dL (0.55-1.3); POTASSIUM 4.4 mmol/L (3.5-5.1); TOT PROT 5.1 g/dl (6.4-8.2)
[2019-12-14 08:47] LABS: BILIRUBIN,TOTAL 0.6 mg/dL (0.2-1)
[2019-12-14 08:57] LABS: BLOOD UREA NITROGEN 118.5 mg/dL (7-18)
[2019-12-14] MEDS: ESCITALOPRAM OXALATE 10 MG TABLET PO SCH (09:17)
[2019-12-14] MEDS: CARVEDILOL 25 MG TABLET (FP) PO SCH ×2 (09:18→21:36)
[2019-12-14] MEDS: ALLOPURINOL 100 MG TABLET (FP) PO SCH (09:18)
[2019-12-14] MEDS: LIDOCAINE 5% TOPICAL PATCH TP SCH (09:19)
[2019-12-14] MEDS: oxyCODONE HCL 5 MG TABLET PO PRN ×2 (09:19→14:03)
[2019-12-14] MEDS: hydrALAZINE HCL 25 MG TABLET (FP) PO SCH ×2 (09:19→21:36)
[2019-12-14] MEDS ORDERED: PT OWN MED DRAWER 7, Y5N ONE (09:45)
--- NOTE | 2019-12-14 10:41 | PN ---
Progress Note, Physician Chief Complaint: Events noted No events overnight History of Present Illness: Patient was seen and examined. Awake and alert. Chart was reviewed Denies chest pain, SOB or palpitations - Current Medication List Current Medications: Active Medications Acetaminophen (Tylenol -) 325 mg PO Q4H PRN PRN Reason: PAIN LEVEL 6-10 Last Admin: 12/12/19 07:59 Dose: 325 mg Documented by: Acetaminophen (Tylenol -) 650 mg PO Q8H [facility] Last Admin: 12/14/19 09:18 Dose: 650 mg Documented by: Allopurinol (Zyloprim -) 100 mg PO DAILY [facility] Last Admin: 12/14/19 09:18 Dose: 100 mg Documented by: Atorvastatin Calcium (Lipitor -) 80 mg PO [facility] Last Admin: 12/13/19 22:00 Dose: 80 mg Documented by: Carvedilol (Coreg -) 25 mg PO BID [facility] Last Admin: 12/14/19 09:18 Dose: 25 mg Documented by: Collagenase (Santyl -) 1 applic TP DAILY [facility]; Protocol Last Admin: 12/13/19 10:45 Dose: 1 applic Documented by: Docusate Sodium (Colace -) 300 mg PO [facility] Last Admin: 12/13/19 21:59 Dose: 300 mg Documented by: Escitalopram Oxalate (Lexapro -) 10 mg PO DAILY [facility] Last Admin: 12/14/19 09:17 Dose: 10 mg Documented by: Hydralazine HCl (Apresoline -) 25 mg PO BID [facility] Last Admin: 12/14/19 09:19 Dose: 25 mg Documented by: Insulin Aspart (Novolog Vial Sliding Scale -) 1 vial SQ [facility]; Protocol Last Admin: 12/14/19 06:21 Dose: 2 units Documented by: Lidocaine (Lidoderm Patch -) 2 patch TP DAILY [facility] Last Admin: 12/14/19 09:19 Dose: 2 patch Documented by: Miscellaneous (Lidoderm Patch Removal) 2 each MC DAILY@2200 [facility] Last Admin: 12/13/19 22:00 Dose: 2 each Documented by: Ondansetron HCl (Zofran Injection) 4 mg IVPUSH Q6H PRN PRN Reason: NAUSEA AND/OR VOMITING Oxycodone HCl (Roxicodone -) 5 mg PO Q6H PRN PRN Reason: PAIN LEVEL 6-10 Last Admin: 12/14/19 09:19 Dose: 5 mg Documented by: Pantoprazole Sodium (Protonix -) 40 mg PO [facility]BK [facility] Last Admin: 12/14/19 06:21 Dose: 40 mg Documented by: - Objective Vital Signs: Vital Signs Temperature 97.5 F L 12/14/19 06:24 Pulse Rate 72 12/14/19 06:24 Respiratory Rate 20 12/14/19 06:24 Blood Pressure 117/54 L 12/14/19 06:24 O2 Sat by Pulse Oximetry (%) 99 12/13/19 21:00 Neck: Yes: Supple Cardiovascular: Yes: Regular Rate and Rhythm, S1, S2 Respiratory: Yes: Diminished Gastrointestinal: Yes: Normal Bowel Sounds, Soft. No: Tenderness Edema: No Labs: CBC, BMP 12/13/19 08:09 12/14/19 07:29 Problem List - Problems (1) Closed right hip fracture Code(s): S72.001A - FRACTURE OF UNSP PART OF NECK OF RIGHT FEMUR, INIT Qualifiers: Encounter type: initial encounter Qualified Code(s): S72.001A - Fracture of unspecified part of neck of right femur, initial encounter for closed fracture (2) Acute on chronic systolic and diastolic heart failure, NYHA class 2 Code(s): I50.43 - ACUTE ON CHRONIC COMBINED SYSTOLIC AND DIASTOLIC HRT FAIL (3) [id number] kidney injury Code(s): N17.9 - ACUTE KIDNEY FAILURE, UNSPECIFIED; N18.9 - CHRONIC KIDNEY DISEASE, UNSPECIFIED Qualifiers: Chronic kidney disease stage: stage 4 (severe) (4) Anemia Code(s): D64.9 - ANEMIA, UNSPECIFIED (5) Atrial fibrillation Code(s): I48.91 - UNSPECIFIED ATRIAL FIBRILLATION Qualifiers: Atrial fibrillation type: paroxysmal Qualified Code(s): I48.0 - Paroxysmal atrial fibrillation (6) Diabetes mellitus Code(s): E11.9 - TYPE 2 DIABETES MELLITUS WITHOUT COMPLICATIONS (7) Diastolic dysfunction without heart failure Code(s): I51.89 - OTHER ILL-DEFINED HEART DISEASES (8) S/P coronary artery stent placement Code(s): Z95.5 - PRESENCE OF CORONARY ANGIOPLASTY IMPLANT AND GRAFT (9) CAD (coronary artery disease) Code(s): I25.10 - ATHSCL HEART DISEASE OF [place] CORONARY ARTERY W/O ANG PCTRS Qualifiers: Coronary Disease-Associated Artery/Lesion type: [place] artery [place] vs. transplanted heart: [place] heart Associated angina: without angina Qualified Code(s): I25.10 - Atherosclerotic heart disease of [place] coronary artery without angina pectoris (10) HTN (hypertension) Code(s): I10 - ESSENTIAL (PRIMARY) HYPERTENSION Qualifiers: Hypertension type: essential hypertension Qualified Code(s): I10 - Essential (primary) hypertension (11) Hyperlipidemia Code(s): E78.5 - HYPERLIPIDEMIA, UNSPECIFIED Qualifiers: Hyperlipidemia type: pure hypercholesterolemia Qualified Code(s): E78.00 - Pure hypercholesterolemia, unspecified; E78.0 - Pure hypercholesterolemia Assessment/Plan 1. Post right femur gamma nail insertion 2. Coronary artery disease post percutaneous coronary intervention angina pectoris 3. Diastolic left ventricular dysfunction with clinical class 0 [place] Heart Association classification left ventricular failure 4. Persistent atrial fibrillation off chronic anticoagulation therapy with DOA post-op 5. Hypertensive vascular disease 6. Diabetes mellitus 7. Acute on chronic kidney disease 8. Anemia and thrombocytopenia PLAN: 1. Renal input noted 2. Not on anticoagulation due to hematuria and anemia 3. Continue Coreg 25 mg BID, Hydralazine 25 mg BID and Lipitor 80 mg QHS 4. Gentle hydration and monitor renal function and electrolytes. 5. 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 Beau Chacon upon discharge Dannie Coon MD
[2019-12-14] MEDS: COLLAGENASE CLOSTRIDIUM HIST. 30 GRAMS TUBE TP SCH (11:18)
--- NOTE | 2019-12-14 11:50 | PN ---
Progress Note, LOCAL [employer]IVER - Note Progress Note: Selected Entries 12/13/19 12/14/19 12/14/19 10:13 06:24 06:47 Breakfast 25% 25% Diet Tolerated Poor Poor Temperature 97.5 F L Pulse Rate 72 Blood Pressure 117/54 L 12/14/19 12/14/19 10:24 10:39 Breakfast 0 Diet Tolerated Poor Temperature 97.8 F Pulse Rate 71 Blood Pressure 129/62 Laboratory Tests 12/13/19 08:09 WBC 5.1 Poor PO intake, elevated BUN Continue to provide encouragement for PO intake, especially fluids, Nepro Appetite stimulant, if not contraindicated plan is now home with home hospice
--- NOTE | 2019-12-14 16:31 | PN ---
Progress Note, Physician History of Present Illness: Pt seen and examined at bedside. He is awake and alert. He complains of scrotal swelling. - Current Medication List Current Medications: Active Medications Acetaminophen (Tylenol -) 325 mg PO Q4H PRN PRN Reason: PAIN LEVEL 6-10 Last Admin: 12/12/19 07:59 Dose: 325 mg Documented by: Acetaminophen (Tylenol -) 650 mg PO Q8H [facility]S [facility] Last Admin: 12/14/19 09:18 Dose: 650 mg Documented by: Allopurinol (Zyloprim -) 100 mg PO DAILY [facility] Last Admin: 12/14/19 09:18 Dose: 100 mg Documented by: Atorvastatin Calcium (Lipitor -) 80 mg PO [facility] Last Admin: 12/13/19 22:00 Dose: 80 mg Documented by: Carvedilol (Coreg -) 25 mg PO BID [facility] Last Admin: 12/14/19 09:18 Dose: 25 mg Documented by: Collagenase (Santyl -) 1 applic TP DAILY [facility]; Protocol Last Admin: 12/14/19 11:18 Dose: 1 applic Documented by: Docusate Sodium (Colace -) 300 mg PO [facility] Last Admin: 12/13/19 21:59 Dose: 300 mg Documented by: Escitalopram Oxalate (Lexapro -) 10 mg PO DAILY [facility] Last Admin: 12/14/19 09:17 Dose: 10 mg Documented by: Furosemide (Lasix -) 40 mg PO DAILY [facility] 234 [facility]S [facility] Hydralazine HCl (Apresoline -) 25 mg PO BID [facility] Last Admin: 12/14/19 09:19 Dose: 25 mg Documented by: Insulin Aspart (Novolog Vial Sliding Scale -) 1 vial SQ [facility]S INCLUDE 234 BEDS [facility]; Protocol Last Admin: 12/14/19 16:11 Dose: 2 units Documented by: Lidocaine (Lidoderm Patch -) 2 patch TP DAILY [facility] Last Admin: 12/14/19 09:19 Dose: 2 patch Documented by: Miscellaneous (Lidoderm Patch Removal) 2 each MC DAILY@2200 [facility] 234 [facility]S [facility] Last Admin: 12/13/19 22:00 Dose: 2 each Documented by: Ondansetron HCl (Zofran Injection) 4 mg IVPUSH Q6H PRN PRN Reason: NAUSEA AND/OR VOMITING Oxycodone HCl (Roxicodone -) 5 mg PO Q6H PRN PRN Reason: PAIN LEVEL 6-10 Last Admin: 12/14/19 14:03 Dose: 5 mg Documented by: Pantoprazole Sodium (Protonix -) 40 mg PO ACBK [facility] Last Admin: 12/14/19 06:21 Dose: 40 mg Documented by: - Objective Vital Signs: Vital Signs Temperature 97.6 F 12/14/19 14:10 Pulse Rate 77 12/14/19 14:10 Respiratory Rate 18 12/14/19 14:10 Blood Pressure 137/69 12/14/19 14:10 O2 Sat by Pulse Oximetry (%) 100 12/14/19 09:00 Constitutional: Yes: Calm Eyes: Yes: Conjunctiva Clear HENT: Yes: Atraumatic Neck: Yes: Supple Cardiovascular: Yes: S1, S2 Respiratory: Yes: WNL Gastrointestinal: Yes: WNL Genitourinary: Yes: Scrotal Edema Musculoskeletal: Yes: WNL Edema: Yes Edema: LLE: 1+, RLE: 1+ Neurological: Yes: Oriented Psychiatric: Yes: Oriented Labs: CBC, BMP 12/13/19 08:09 12/14/19 07:29 INR, PTT INR 1.14 (0.83-1.09) H 12/08/19 08:27 Fibrinogen 272.0 mg/dL (238-498) 12/08/19 08:27 Problem List - Problems (1) CKD (chronic kidney disease) Code(s): N18.9 - CHRONIC KIDNEY DISEASE, UNSPECIFIED Qualifiers: Chronic kidney disease stage: stage 3 (moderate) Qualified Code(s): N18.3 - Chronic kidney disease, stage 3 (moderate) (2) Hyperkalemia Code(s): E87.5 - HYPERKALEMIA (3) Acute kidney failure Code(s): N17.9 - ACUTE KIDNEY FAILURE, UNSPECIFIED Qualifiers: Acute renal failure type: with other specified pathological lesion Qualified Code(s): N17.8 - Other acute kidney failure (4) CHF (congestive heart failure) Code(s): I50.9 - HEART FAILURE, UNSPECIFIED Qualifiers: Heart failure type: combined systolic and diastolic Heart failure chronicity: chronic Qualified Code(s): I50.42 - Chronic combined systolic (congestive) and diastolic (congestive) heart failure (5) HTN (hypertension) Code(s): I10 - ESSENTIAL (PRIMARY) HYPERTENSION Qualifiers: Hypertension type: essential hypertension Qualified Code(s): I10 - Essential (primary) hypertension Assessment/Plan Current Medications Generic Name Dose Route Start Last Admin Trade Name Freq PRN Reason Stop Dose Admin Acetaminophen 325 mg 11/25/19 22:28 12/12/19 07:59 Tylenol - PO 325 mg Q4H PRN Administration PAIN LEVEL 6-10 Acetaminophen 650 mg 12/12/19 09:15 12/14/19 09:18 Tylenol - PO 650 mg Q8H [facility]ARY Administration Allopurinol 100 mg 11/26/19 10:00 12/14/19 09:18 Zyloprim - PO 100 mg DAILY [facility] Administration Atorvastatin Calcium 80 mg 11/26/19 22:00 12/13/19 22:00 Lipitor - PO 80 mg HS [facility] Administration Carvedilol 25 mg 11/25/19 22:45 12/14/19 09:18 Coreg - PO 25 mg BID [facility] Administration Collagenase 1 applic 12/12/19 10:00 12/14/19 11:18 Santyl - TP 1 applic DAILY [facility] Administration Protocol Docusate Sodium 300 mg 12/07/19 22:00 12/13/19 21:59 Colace - PO 300 mg HS [facility] Administration Escitalopram Oxalate 10 mg 11/26/19 10:00 12/14/19 09:17 Lexapro - PO 10 mg DAILY [facility] Administration Furosemide 40 mg 12/14/19 16:30 Lasix - PO DAILY [facility] Hydralazine HCl 25 mg 11/28/19 11:18 12/14/19 09:19 Apresoline - PO 25 mg BID [facility] Administration Insulin Aspart 1 vial 11/26/19 07:00 12/14/19 16:11 Novolog Vial Sliding Scale - SQ 2 units ACHS [facility] Administration Protocol Lidocaine 2 patch 12/01/19 10:00 12/14/19 09:19 Lidoderm Patch - TP 2 patch DAILY [facility] Administration Miscellaneous 2 each 11/28/19 11:20 12/13/19 22:00 Lidoderm Patch Removal MC 2 each DAILY@2200 [facility] Administration Ondansetron HCl 4 mg 11/29/19 14:08 Zofran Injection IVPUSH Q6H PRN NAUSEA AND/OR VOMITING Oxycodone HCl 5 mg 12/13/19 20:12 12/14/19 14:03 Roxicodone - PO 5 mg Q6H PRN Administration PAIN LEVEL 6-10 Pantoprazole Sodium 40 mg 12/02/19 07:15 12/14/19 06:21 Protonix - PO 40 mg ACBK [facility] Administration Impression 1. CKD with acute component 2. hx CHF 3. CAD 4. DM 5. HTN 6. hyperlipidemia 7. BPH 8. pleural effusions 9. SPIKE 10. hyperkalemia 11. right femur fracture Plan - will restart lasix - monitor lytes - monitor volume status - encourage po intake - will need outpt follow up - pain control - avoid nsaids Dr Menezes
[2019-12-14] MEDS: FUROSEMIDE 40 MG TABLET (FP) PO SCH (16:41)
--- NOTE | 2019-12-14 18:13 | PN ---
Progress Note, Physician Chief Complaint: PAtient is awake complains of pain in the sacral area with mobilization. Hematuria persists, Eliquis was stopped. 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 Hematuria is persisting and his kidney function is not better. He deve;oped sacral area pressure ulcer unstageable at this time approximately 4 cm diameter - Current Medication List Current Medications: Active Medications Acetaminophen (Tylenol -) 325 mg PO Q4H PRN PRN Reason: PAIN LEVEL 6-10 Last Admin: 12/12/19 07:59 Dose: 325 mg Documented by: Acetaminophen (Tylenol -) 650 mg PO Q8H [facility] Last Admin: 12/14/19 16:41 Dose: 650 mg Documented by: Allopurinol (Zyloprim -) 100 mg PO DAILY [facility] Last Admin: 12/14/19 09:18 Dose: 100 mg Documented by: Atorvastatin Calcium (Lipitor -) 80 mg PO [facility] Last Admin: 12/13/19 22:00 Dose: 80 mg Documented by: Carvedilol (Coreg -) 25 mg PO BID [facility] Last Admin: 12/14/19 09:18 Dose: 25 mg Documented by: Collagenase (Santyl -) 1 applic TP DAILY [facility]; Protocol Last Admin: 12/14/19 11:18 Dose: 1 applic Documented by: Docusate Sodium (Colace -) 300 mg PO [facility] Last Admin: 12/13/19 21:59 Dose: 300 mg Documented by: Escitalopram Oxalate (Lexapro -) 10 mg PO DAILY [facility] Last Admin: 12/14/19 09:17 Dose: 10 mg Documented by: Furosemide (Lasix -) 40 mg PO DAILY [facility] Last Admin: 12/14/19 16:41 Dose: 40 mg Documented by: Hydralazine HCl (Apresoline -) 25 mg PO BID [facility] Last Admin: 12/14/19 09:19 Dose: 25 mg Documented by: Insulin Aspart (Novolog Vial Sliding Scale -) 1 vial SQ ACHS [facility]; Protocol Last Admin: 12/14/19 16:11 Dose: 2 units Documented by: Lidocaine (Lidoderm Patch -) 2 patch TP DAILY [facility] Last Admin: 12/14/19 09:19 Dose: 2 patch Documented by: Miscellaneous (Lidoderm Patch Removal) 2 each MC DAILY@2200 [facility] Last Admin: 12/13/19 22:00 Dose: 2 each Documented by: Ondansetron HCl (Zofran Injection) 4 mg IVPUSH Q6H PRN PRN Reason: NAUSEA AND/OR VOMITING Oxycodone HCl (Roxicodone -) 5 mg PO Q6H PRN PRN Reason: PAIN LEVEL 6-10 Last Admin: 12/14/19 14:03 Dose: 5 mg Documented by: Pantoprazole Sodium (Protonix -) 40 mg PO ACBK [facility] Last Admin: 12/14/19 06:21 Dose: 40 mg Documented by: - Objective Vital Signs: Vital Signs Temperature 97.6 F 12/14/19 14:10 Pulse Rate 77 12/14/19 14:10 Respiratory Rate 18 12/14/19 14:10 Blood Pressure 137/69 12/14/19 14:10 O2 Sat by Pulse Oximetry (%) 100 12/14/19 09:00 Constitutional: Yes: Mild Distress Eyes: Yes: Conjunctiva Clear, EOM Intact HENT: Yes: Atraumatic, Normocephalic Neck: Yes: Supple, Trachea Midline Cardiovascular: Yes: Regular Rate and Rhythm, S1, S2 Respiratory: Yes: Regular, On Nasal O2 Gastrointestinal: Yes: Normal Bowel Sounds, Soft. No: Hepatomegaly, Splenomegaly Breast(s): Yes: WNL Musculoskeletal: Yes: Back Pain, Other (pain in the right thigh) Edema: No Peripheral Pulses WNL: Yes Wound/Incision: Yes: Clean/Dry, Dressing Dry and Intact Neurological: Yes: Alert, Oriented ...Motor Strength: LLE (weak), RLE (weak) Psychiatric: Yes: Alert, Oriented Labs: CBC, BMP 12/13/19 08:09 12/14/19 07:29 INR, PTT INR 1.14 (0.83-1.09) H 12/08/19 08:27 Fibrinogen 272.0 mg/dL (238-498) 12/08/19 08:27 Problem List - Problems (1) Hematuria Assessment/Plan: persisiting stopped Eliquis Code(s): R31.9 - HEMATURIA, UNSPECIFIED (2) Thrombocytopenia Assessment/Plan: platelets count continues to improve Hematology consultation appreciated Code(s): D69.6 - THROMBOCYTOPENIA, UNSPECIFIED (3) CKD (chronic kidney disease) Assessment/Plan: AKD/CKD encouraged po fluids iv hydration stopped monitor CMP Code(s): N18.9 - CHRONIC KIDNEY DISEASE, UNSPECIFIED Qualifiers: Chronic kidney disease stage: stage 3 (moderate) Qualified Code(s): N18.3 - Chronic kidney disease, stage 3 (moderate) (4) Diabetes 1.5, managed as type 2 Assessment/Plan: regular insulin coverage Code(s): E10.9 - TYPE 1 DIABETES MELLITUS WITHOUT COMPLICATIONS (5) Closed right hip fracture Assessment/Plan: tolerated well Gamma nail placement stopped Elliquis anticoagulation Lidoderm patches # 2 to the right hip Oxycodone 5 mg every 6 hours as needed Code(s): S72.001A - FRACTURE OF UNSP PART OF NECK OF RIGHT FEMUR, INIT Qualifiers: Encounter type: initial encounter Qualified Code(s): S72.001A - Fracture of unspecified part of neck of right femur, initial encounter for closed fracture (6) Atrial fibrillation Assessment/Plan: chronic, rhythm is controlled Eliquis stopped Code(s): I48.91 - UNSPECIFIED ATRIAL FIBRILLATION Qualifiers: Atrial fibrillation type: paroxysmal Qualified Code(s): I48.0 - Paroxysmal atrial fibrillation (7) CHF (congestive heart failure) Assessment/Plan: stable at this time Code(s): I50.9 - HEART FAILURE, UNSPECIFIED Qualifiers: Heart failure type: combined systolic and diastolic Heart failure chronicity: chronic Qualified Code(s): I50.42 - Chronic combined systolic (congestive) and diastolic (congestive) heart failure (8) Coronary artery disease Assessment/Plan: had no complications during surgery stable at this moment Code(s): I25.10 - ATHSCL HEART DISEASE OF [place] CORONARY ARTERY W/O ANG PCTRS Qualifiers: Coronary Disease-Associated Artery/Lesion type: [place] artery [place] vs. transplanted heart: [place] heart Associated angina: without angina Qualified Code(s): I25.10 - Atherosclerotic heart disease of [place] coronary artery without angina pectoris (9) Pressure ulcer Assessment/Plan: stage 3 of the sacral area collagenase applications daily patient requires gel mattress and a hospital bed Code(s): L89.90 - PRESSURE ULCER OF UNSPECIFIED SITE, UNSPECIFIED STAGE Assessment/Plan 74 yo male with recent right intertrochanteric fracture s/p GAmma nail placement, Stage 3 pressure ulcer, proteic caloric malnutrition non ambulatory and requiring assistance with toiletting, turning and and positioning. He is terminally ill due to atherosclerotic cardiomyopathy, acute renal failure on chronic chronic failure,and anemia requiring multiple transfusions. Attempts to reestablish his renal function to baseline have failed in the context of persistent hematuria. The family will not proceed with further testing or procedures and requests comfort care. ADDENDUM: Patient nilesh require a semi -electrical hpospital bed to keep HOB elevated morffe than 30 degrees tp preveny aspiration.Pateiknt requirees frequent change in body position to alleviate pain taht is not feasable in an or dinary bed. Patient will need a Shonda lift to transfer from bed to chair. [id number] the opatient will be cinfined to bed. bed
[2019-12-14] MEDS: ATORVASTATIN CA 80 MG TABLET (FP) PO SCH (21:36)
[2019-12-14] MEDS: LIDOCAINE PATCH REMOVAL MC SCH (21:36)
[2019-12-14] MEDS: DOCUSATE SODIUM 100 MG CAPSULE (FP) PO SCH (21:36)
[2019-12-15] MEDS: ACETAMINOPHEN 325 MG TABLET (FP) PO SCH ×3 (01:27→17:48)
[2019-12-15] MEDS: oxyCODONE HCL 5 MG TABLET PO PRN ×4 (05:40→23:32)
[2019-12-15] MEDS: INSULIN SLIDING SCALE (NOVOLOG) 1 VIAL SQ SCH ×4 (06:23→21:03)
[2019-12-15] MEDS: PANTOPRAZOLE 40 MG TABLET PO SCH (06:24)
[2019-12-15 08:27] LABS: BASO % 0.4 % (0-2.0); EOS % 1.1 % (0-4.5); HEMATOCRIT 28.5 % (35.4-49); HEMOGLOBIN 9.6 GM/dL (11.7-16.9); LYMPH % 7.1 % (8-40); MCH 31.9 pg (25.7-33.7); MCHC 33.7 g/dl (32.0-35.9); MEAN CELL VOLUME 94.5 fl (80-96); MEAN PLT VOLUME 8.3 fl (7.5-11.1); MONO % 6.1 % (3.8-10.2); NEUT % 85.3 % (42.8-82.8); PLATELET COUNT 128 K/MM3 (134-434); RBC 3.02 M/mm3 (4.00-5.60); RDW 18.6 % (11.9-15.9); WHITE BLOOD COUNT 5.7 K/mm3 (4.0-10.0)
[2019-12-15] MEDS: FUROSEMIDE 40 MG TABLET (FP) PO SCH (09:00)
[2019-12-15] MEDS: ALLOPURINOL 100 MG TABLET (FP) PO SCH (09:00)
[2019-12-15] MEDS: CARVEDILOL 25 MG TABLET (FP) PO SCH ×2 (09:00→21:04)
[2019-12-15] MEDS: ESCITALOPRAM OXALATE 10 MG TABLET PO SCH (09:00)
[2019-12-15] MEDS: hydrALAZINE HCL 25 MG TABLET (FP) PO SCH ×2 (09:00→21:04)
[2019-12-15 09:01] LABS: ALBUMIN 1.9 g/dl (3.4-5.0); BILIRUBIN,TOTAL 0.5 mg/dL (0.2-1); CALCIUM 8.1 mg/dL (8.5-10.1); CREATININE 2.5 mg/dL (0.55-1.3); POTASSIUM 4.4 mmol/L (3.5-5.1); TOT PROT 5.5 g/dl (6.4-8.2)
[2019-12-15] MEDS: LIDOCAINE 5% TOPICAL PATCH TP SCH (09:01)
[2019-12-15 09:14] LABS: BLOOD UREA NITROGEN 112.9 mg/dL (7-18)
[2019-12-15] MEDS ORDERED: PT OWN MED DRAWER 7, Y5N ONE (09:15)
--- NOTE | 2019-12-15 10:00 | PN ---
Progress Note, Physician History of Present Illness: No acute cardiac events, Taeis been d/c'ed due to hematuria, Hgb stable. - Current Medication List Current Medications: Active Medications Acetaminophen (Tylenol -) 325 mg PO Q4H PRN PRN Reason: PAIN LEVEL 6-10 Last Admin: 12/12/19 07:59 Dose: 325 mg Documented by: Acetaminophen (Tylenol -) 650 mg PO Q8H [facility] Last Admin: 12/15/19 09:00 Dose: 650 mg Documented by: Allopurinol (Zyloprim -) 100 mg PO DAILY [facility] Last Admin: 12/15/19 09:00 Dose: 100 mg Documented by: Atorvastatin Calcium (Lipitor -) [address] [facility] Last Admin: 12/14/19 21:36 Dose: 80 mg Documented by: Carvedilol (Coreg -) 25 mg PO BID [facility] Last Admin: 12/15/19 09:00 Dose: 25 mg Documented by: Collagenase (Santyl -) 1 applic TP DAILY [facility]; Protocol Last Admin: 12/14/19 11:18 Dose: 1 applic Documented by: Docusate Sodium (Colace -) [address] [facility] Last Admin: 12/14/19 21:36 Dose: 300 mg Documented by: Escitalopram Oxalate (Lexapro -) 10 mg PO DAILY [facility] Last Admin: 12/15/19 09:00 Dose: 10 mg Documented by: Furosemide (Lasix -) 40 mg PO DAILY [facility] Last Admin: 12/15/19 09:00 Dose: 40 mg Documented by: Hydralazine HCl (Apresoline -) 25 mg PO BID [facility] Last Admin: 12/15/19 09:00 Dose: 25 mg Documented by: Insulin Aspart (Novolog Vial Sliding Scale -) 1 vial SQ [facility]; Protocol Last Admin: 12/15/19 06:23 Dose: 2 units Documented by: Lidocaine (Lidoderm Patch -) 2 patch TP DAILY [facility] Last Admin: 12/15/19 09:01 Dose: 2 patch Documented by: Miscellaneous (Lidoderm Patch Removal) 2 each MC DAILY@2200 [facility] Last Admin: 12/14/19 21:36 Dose: 2 each Documented by: Ondansetron HCl (Zofran Injection) 4 mg IVPUSH Q6H PRN PRN Reason: NAUSEA AND/OR VOMITING Oxycodone HCl (Roxicodone -) 5 mg PO Q6H PRN PRN Reason: PAIN LEVEL 6-10 Last Admin: 12/15/19 05:40 Dose: 5 mg Documented by: Pantoprazole Sodium (Protonix -) 40 mg PO ACBK [facility] Last Admin: 12/15/19 06:24 Dose: 40 mg Documented by: - Objective Vital Signs: Vital Signs Temperature 97.6 F 12/15/19 08:58 Pulse Rate 72 12/15/19 08:58 Respiratory Rate 20 12/15/19 09:00 Blood Pressure 148/64 12/15/19 08:58 O2 Sat by Pulse Oximetry (%) 99 12/15/19 09:00 Constitutional: Yes: No Distress, Calm, Thin Neck: Yes: Supple Cardiovascular: Yes: Pulse Irregular Respiratory: Yes: Diminished, On Nasal O2 Gastrointestinal: Yes: Soft, Hypoactive Bowel Sounds Edema: No Labs: CBC, BMP 12/15/19 08:06 12/15/19 08:06 INR, PTT INR 1.14 (0.83-1.09) H 12/08/19 08:27 Fibrinogen 272.0 mg/dL (238-498) 12/08/19 08:27 Assessment/Plan Imaging - Results Chest X-ray: Other (cardiomegaly, , volume loss RLL) X-ray: Other (right femur intertrochanteric fracture) Problem List - Problems (1) CKD (chronic kidney disease) Assessment/Plan: stable, Problems reviewed: Yes Code(s): N18.9 - CHRONIC KIDNEY DISEASE, UNSPECIFIED (2) Diabetes 1.5, managed as type 2 Assessment/Plan: regular insulin coverage start IV D5 1/2 NS at 75 cc if surgery tomorrow Code(s): E10.9 - TYPE 1 DIABETES MELLITUS WITHOUT COMPLICATIONS (3) Closed right hip fracture Assessment/Plan: s/p Right Gamma nail Code(s): S72.001A - FRACTURE OF UNSP PART OF NECK OF RIGHT FEMUR, INIT Qualifiers: Encounter type: initial encounter Qualified Code(s): S72.001A - Fracture of unspecified part of neck of right femur, initial encounter for closed fracture (4) Anemia in chronic kidney disease Assessment/Plan: received 1 u pRBC transfusion Code(s): N18.9 - CHRONIC KIDNEY DISEASE, UNSPECIFIED; D63.1 - ANEMIA IN CHRONIC KIDNEY DISEASE Qualifiers: Chronic kidney disease stage: stage 2 (mild) Qualified Code(s): N18.2 - Chronic kidney disease, stage 2 (mild); D63.1 - Anemia in chronic kidney disease (5) Atrial fibrillation Assessment/Plan: chronic Eliquis 2.5 bid held due to hematuria Code(s): I48.91 - UNSPECIFIED ATRIAL FIBRILLATION Qualifiers: Atrial fibrillation type: paroxysmal Qualified Code(s): I48.0 - Paroxysmal atrial fibrillation (6) CHF (congestive heart failure) Assessment/Plan: D/c IVF, diuretics as needed Code(s): I50.9 - HEART FAILURE, UNSPECIFIED Qualifiers: Heart failure type: combined systolic and diastolic Heart failure chr onicity: chronic Qualified Code(s): I50.42 - Chronic combined systolic (congestive) and diastolic (congestive) heart failure (7) Coronary artery disease Assessment/Plan: Code(s): I25.10 - ATHSCL HEART DISEASE OF [place] CORONARY ARTERY W/O ANG PCTRS Qualifiers: Coronary Disease-Associated Artery/Lesion type: [place] artery [place] vs. transplanted heart: [place] heart Associated angina: without angina Qualified Code(s): I25.10 - Atherosclerotic heart disease of [place] coronary artery without angina pectoris Assessment/Plan 1. Post right femur gamma nail insertion 2. Coronary artery disease post percutaneous coronary intervention angina pectoris 3. Diastolic left ventricular dysfunction with clinical class 0 [place] [employer] classification left ventricular failure 4. Persistent atrial fibrillation off chronic anticoagulation therapy with DOA post-op 5. Hypertensive vascular disease 6. Diabetes mellitus 7. Acute on chronic kidney disease 8. Anemia and thrombocytopenia PLAN: 1. Renal input noted 2. Not on anticoagulation due to hematuria and anemia, to resume once hemostasis assured 3. Continue Coreg 25 mg BID, Hydralazine 25 mg BID and Lipitor 80 mg QHS 4. Resumed oral diuretics with monitor diuretic response, renal function and electrolytes. 5. PT as tolerated, mechanical DVT prophylaxis Patient is to follow-up with his care professionals Dr. Beau Chacon upon discharge
--- NOTE | 2019-12-15 10:34 | PN ---
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 Progress Note: Selected Entries 12/13/19 12/14/19 12/14/19 10:13 06:24 06:47 Breakfast 25% 25% Diet Tolerated Poor Poor Temperature 97.5 F L Pulse Rate 72 Blood Pressure 117/54 L 12/14/19 12/14/19 10:24 10:39 Breakfast 0 Diet Tolerated Poor Temperature 97.8 F Pulse Rate 71 Blood Pressure 129/62 Laboratory Tests 12/13/19 08:09 WBC 5.1 Selected Entries 12/14/19 12/14/19 12/14/19 06:24 06:47 10:24 Breakfast 25% 0 Lunch 0 Temperature 97.5 F L Blood Pressure 117/54 L 12/14/19 12/14/19 12/14/19 10:39 14:10 18:56 Breakfast Lunch Temperature 97.8 F 97.6 F 97.2 F L Blood Pressure 129/62 137/69 135/69 12/14/19 12/15/19 12/15/19 21:41 06:00 08:58 Breakfast Lunch Temperature 97.5 F L 97.6 F Blood Pressure 149/71 141/62 148/64 12/15/19 09:44 Breakfast 0 Lunch Temperature Blood Pressure Laboratory Tests 12/15/19 08:06 WBC 5.7 Poor PO intake, elevated BUN provide encouragement for PO intake, especially fluids, Nep[place], as accepted and desired Appetite stimulant, if not contraindicated home hospice
[2019-12-15] MEDS: COLLAGENASE CLOSTRIDIUM HIST. 30 GRAMS TUBE TP SCH (11:43)
--- NOTE | 2019-12-15 12:24 | PN ---
Progress Note, Physician History of Present Illness: Pt seen and examined at bedside. He is awake and more interactive. He feels that the scrotal edema is improving. - Current Medication List Current Medications: Active Medications Acetaminophen (Tylenol -) 325 mg PO Q4H PRN PRN Reason: PAIN LEVEL 6-10 Last Admin: 12/12/19 07:59 Dose: 325 mg Documented by: Acetaminophen (Tylenol -) 650 mg PO Q8H [facility] Last Admin: 12/15/19 09:00 Dose: 650 mg Documented by: Allopurinol (Zyloprim -) 100 mg PO DAILY [facility] Last Admin: 12/15/19 09:00 Dose: 100 mg Documented by: Atorvastatin Calcium (Lipitor -) 80 mg PO [facility] Last Admin: 12/14/19 21:36 Dose: 80 mg Documented by: Carvedilol (Coreg -) 25 mg PO BID [facility] Last Admin: 12/15/19 09:00 Dose: 25 mg Documented by: Collagenase (Santyl -) 1 applic TP DAILY [facility]; Protocol Last Admin: 12/15/19 11:43 Dose: 1 applic Documented by: Docusate Sodium (Colace -) 300 mg PO [facility] Last Admin: 12/14/19 21:36 Dose: 300 mg Documented by: Escitalopram Oxalate (Lexapro -) 10 mg PO DAILY [facility] Last Admin: 12/15/19 09:00 Dose: 10 mg Documented by: Furosemide (Lasix -) 40 mg PO DAILY [facility] Last Admin: 12/15/19 09:00 Dose: 40 mg Documented by: Hydralazine HCl (Apresoline -) 25 mg PO BID [facility] Last Admin: 12/15/19 09:00 Dose: 25 mg Documented by: Insulin Aspart (Novolog Vial Sliding Scale -) 1 vial SQ [facility]; Protocol Last Admin: 12/15/19 11:43 Dose: 2 units Documented by: Lidocaine (Lidoderm Patch -) 2 patch TP DAILY [facility] Last Admin: 12/15/19 09:01 Dose: 2 patch Documented by: Miscellaneous (Lidoderm Patch Removal) 2 each MC DAILY@2200 [facility] Last Admin: 12/14/19 21:36 Dose: 2 each Documented by: Ondansetron HCl (Zofran Injection) 4 mg IVPUSH Q6H PRN PRN Reason: NAUSEA AND/OR VOMITING Oxycodone HCl (Roxicodone -) 5 mg PO Q6H PRN PRN Reason: PAIN LEVEL 6-10 Last Admin: 12/15/19 12:13 Dose: 5 mg Documented by: Pantoprazole Sodium (Protonix -) 40 mg PO ACBK [facility] Last Admin: 12/15/19 06:24 Dose: 40 mg Documented by: - Objective Vital Signs: Vital Signs Temperature 97.6 F 12/15/19 08:58 Pulse Rate 72 12/15/19 08:58 Respiratory Rate 20 12/15/19 09:00 Blood Pressure 148/64 12/15/19 08:58 O2 Sat by Pulse Oximetry (%) 99 12/15/19 09:00 Constitutional: Yes: Calm Eyes: Yes: Conjunctiva Clear HENT: Yes: Atraumatic Neck: Yes: Supple Cardiovascular: Yes: S1, S2 Respiratory: Yes: CTA Bilaterally Gastrointestinal: Yes: Soft Genitourinary: Yes: Scrotal Edema Edema: Yes Edema: LLE: Trace, RLE: Trace Neurological: Yes: Oriented Psychiatric: Yes: Oriented Labs: CBC, BMP 12/15/19 08:06 12/15/19 08:06 INR, PTT INR 1.14 (0.83-1.09) H 12/08/19 08:27 Fibrinogen 272.0 mg/dL (238-498) 12/08/19 08:27 Problem List - Problems (1) CKD (chronic kidney disease) Code(s): N18.9 - CHRONIC KIDNEY DISEASE, UNSPECIFIED Qualifiers: Chronic kidney disease stage: stage 3 (moderate) Qualified Code(s): N18.3 - Chronic kidney disease, stage 3 (moderate) (2) Hyperkalemia Code(s): E87.5 - HYPERKALEMIA (3) Acute kidney failure Code(s): N17.9 - ACUTE KIDNEY FAILURE, UNSPECIFIED Qualifiers: Acute renal failure type: with other specified pathological lesion Qualified Code(s): N17.8 - Other acute kidney failure (4) CHF (congestive heart failure) Code(s): I50.9 - HEART FAILURE, UNSPECIFIED Qualifiers: Heart failure type: combined systolic and diastolic Heart failure chronicity: chronic Qualified Code(s): I50.42 - Chronic combined systolic (congestive) and diastolic (congestive) heart failure (5) HTN (hypertension) Code(s): I10 - ESSENTIAL (PRIMARY) HYPERTENSION Qualifiers: Hypertension type: essential hypertension Qualified Code(s): I10 - Essential (primary) hypertension Assessment/Plan Current Medications Generic Name Dose Route Start Last Admin Trade Name Freq PRN Reason Stop Dose Admin Acetaminophen 325 mg 11/25/19 22:28 12/12/19 07:59 Tylenol - PO 325 mg Q4H PRN Administration PAIN LEVEL 6-10 Acetaminophen 650 mg 12/12/19 09:15 12/15/19 09:00 Tylenol - PO 650 mg Q8H [facility] Administration Allopurinol 100 mg 11/26/19 10:00 12/15/19 09:00 Zyloprim - PO 100 mg DAILY [facility] Administration Atorvastatin Calcium 80 mg 11/26/19 22:00 12/14/19 21:36 Lipitor - PO 80 mg HS [facility] Administration Carvedilol 25 mg 11/25/19 22:45 12/15/19 09:00 Coreg - PO 25 mg BID [facility] Administration Collagenase 1 applic 12/12/19 10:00 12/15/19 11:43 Santyl - TP 1 applic DAILY [facility] Administration Protocol Docusate Sodium 300 mg 12/07/19 22:00 12/14/19 21:36 Colace - PO 300 mg HS [facility] Administration Escitalopram Oxalate 10 mg 11/26/19 10:00 12/15/19 09:00 Lexapro - PO 10 mg DAILY [facility] Administration Furosemide 40 mg 12/14/19 16:30 12/15/19 09:00 Lasix - PO 40 mg DAILY [facility] Administration Hydralazine HCl 25 mg 11/28/19 11:18 12/15/19 09:00 Apresoline - PO 25 mg BID [facility] Administration Insulin Aspart 1 vial 11/26/19 07:00 12/15/19 11:43 Novolog Vial Sliding Scale - SQ 2 units ACHS [facility] Administration Protocol Lidocaine 2 patch 12/01/19 10:00 12/15/19 09:01 Lidoderm Patch - TP 2 patch DAILY [facility] Administration Miscellaneous 2 each 11/28/19 11:20 12/14/19 21:36 Lidoderm Patch Removal MC 2 each DAILY@2200 [facility] Administration Ondansetron HCl 4 mg 11/29/19 14:08 Zofran Injection IVPUSH Q6H PRN NAUSEA AND/OR VOMITING Oxycodone HCl 5 mg 12/13/19 20:12 12/15/19 12:13 Roxicodone - PO 5 mg Q6H PRN Administration PAIN LEVEL 6-10 Pantoprazole Sodium 40 mg 12/02/19 07:15 12/15/19 06:24 Protonix - PO 40 mg ACBK [facility] Administration Impression 1. CKD with acute component 2. hx CHF 3. CAD 4. DM 5. HTN 6. hyperlipidemia 7. BPH 8. pleural effusions 9. SPIKE 10. hyperkalemia 11. right femur fracture Plan - cont lasix - diversity manager improving - monitor volume status - monitor lytes - encourage po intake - pending placement - will need outpt follow up - pain control - avoid nsaids Dr Menezes
[2019-12-15] MEDS ORDERED: INSULIN (NOVOLOG) ASPART 100 UNITS/ML 10ML VIAL ONE (20:50)
[2019-12-15 20:57] VITALS: PULSE 77
[2019-12-15] MEDS: ATORVASTATIN CA 80 MG TABLET (FP) PO SCH (21:04)
[2019-12-15] MEDS: LIDOCAINE PATCH REMOVAL MC SCH (21:04)
[2019-12-15] MEDS: DOCUSATE SODIUM 100 MG CAPSULE (FP) PO SCH (21:04)
[2019-12-15 21:48] VITALS: BMI 23.8
[2019-12-15] MEDS: ACETAMINOPHEN 325 MG TABLET (FP) PO PRN (23:31)
[2019-12-16] MEDS: ACETAMINOPHEN 325 MG TABLET (FP) PO SCH ×2 (01:15→11:27)
[2019-12-16 05:40] VITALS: BP 150/69; TEMP 98.4
[2019-12-16] MEDS: INSULIN SLIDING SCALE (NOVOLOG) 1 VIAL SQ SCH ×2 (06:10→11:26)
[2019-12-16] MEDS: PANTOPRAZOLE 40 MG TABLET PO SCH (06:10)
[2019-12-16] MEDS: ACETAMINOPHEN 325 MG TABLET (FP) PO PRN (06:14)
[2019-12-16] MEDS: oxyCODONE HCL 5 MG TABLET PO PRN (06:14)
[2019-12-16] MEDS: ALLOPURINOL 100 MG TABLET (FP) PO SCH (09:09)
[2019-12-16] MEDS: ESCITALOPRAM OXALATE 10 MG TABLET PO SCH (09:09)
[2019-12-16] MEDS: FUROSEMIDE 40 MG TABLET (FP) PO SCH (09:09)
[2019-12-16] MEDS: hydrALAZINE HCL 25 MG TABLET (FP) PO SCH (09:09)
[2019-12-16] MEDS: CARVEDILOL 25 MG TABLET (FP) PO SCH (09:09)
[2019-12-16] MEDS: LIDOCAINE 5% TOPICAL PATCH TP SCH (09:10)
--- NOTE | 2019-12-16 09:53 | PN ---
Progress Note, Physician History of Present Illness: D/simon before being seen. - Current Medication List Current Medications: Active Medications Acetaminophen (Tylenol -) 325 mg PO Q4H PRN PRN Reason: PAIN LEVEL 6-10 Last Admin: 12/16/19 06:14 Dose: 325 mg Documented by: Acetaminophen (Tylenol -) 650 mg PO Q8H [facility] Last Admin: 12/16/19 01:15 Dose: Not Given Documented by: Allopurinol (Zyloprim -) 100 mg PO DAILY [facility] Last Admin: 12/16/19 09:09 Dose: 100 mg Documented by: Atorvastatin Calcium (Lipitor -) 80 mg PO [facility] Last Admin: 12/15/19 21:04 Dose: 80 mg Documented by: Carvedilol (Coreg -) 25 mg PO BID [facility] Last Admin: 12/16/19 09:09 Dose: 25 mg Documented by: Collagenase (Santyl -) 1 applic TP DAILY [facility]; Protocol Last Admin: 12/15/19 11:43 Dose: 1 applic Documented by: Docusate Sodium (Colace -) 300 mg PO [facility] Last Admin: 12/15/19 21:04 Dose: 300 mg Documented by: Escitalopram Oxalate (Lexapro -) 10 mg PO DAILY [facility] Last Admin: 12/16/19 09:09 Dose: 10 mg Documented by: Furosemide (Lasix -) 40 mg PO DAILY [facility] Last Admin: 12/16/19 09:09 Dose: 40 mg Documented by: Hydralazine HCl (Apresoline -) 25 mg PO BID [facility] Last Admin: 12/16/19 09:09 Dose: 25 mg Documented by: Insulin Aspart (Novolog Vial Sliding Scale -) 1 vial SQ [facility]; Protocol Last Admin: 12/16/19 06:10 Dose: 2 units Documented by: Lidocaine (Lidoderm Patch -) 2 patch TP DAILY [facility] Last Admin: 12/16/19 09:10 Dose: 2 patch Documented by: Miscellaneous (Lidoderm Patch Removal) 2 each MC DAILY@2200 [facility] Last Admin: 12/15/19 21:04 Dose: 2 each Documented by: Ondansetron HCl (Zofran Injection) 4 mg IVPUSH Q6H PRN PRN Reason: NAUSEA AND/OR VOMITING Oxycodone HCl (Roxicodone -) 5 mg PO Q6H PRN PRN Reason: PAIN LEVEL 6-10 Last Admin: 12/16/19 06:14 Dose: 5 mg Documented by: Pantoprazole Sodium (Protonix -) 40 mg PO [facility] Last Admin: 12/16/19 06:10 Dose: 40 mg Documented by: - Objective Vital Signs: Vital Signs Temperature 98.4 F 12/16/19 05:38 Pulse Rate 77 12/16/19 05:38 Respiratory Rate 18 12/16/19 05:38 Blood Pressure 150/69 12/16/19 05:38 O2 Sat by Pulse Oximetry (%) 94 L 12/16/19 09:00 Labs: CBC, BMP 12/15/19 08:06 12/15/19 08:06 INR, PTT INR 1.14 (0.83-1.09) H 12/08/19 08:27 Fibrinogen 272.0 mg/dL (238-498) 12/08/19 08:27 Assessment/Plan Imaging - Results Chest X-ray: Other (cardiomegaly, , volume loss RLL) X-ray: Other (right femur intertrochanteric fracture) Problem List - Problems (1) CKD (chronic kidney disease) Assessment/Plan: stable, Problems reviewed: Yes Code(s): N18.9 - CHRONIC KIDNEY DISEASE, UNSPECIFIED (2) Diabetes 1.5, managed as type 2 Assessment/Plan: regular insulin coverage start IV D5 1/2 NS at 75 cc if surgery tomorrow Code(s): E10.9 - TYPE 1 DIABETES MELLITUS WITHOUT COMPLICATIONS (3) Closed right hip fracture Assessment/Plan: s/p Right Gamma nail Code(s): S72.001A - FRACTURE OF UNSP PART OF NECK OF RIGHT FEMUR, INIT Qualifiers: Encounter type: initial encounter Qualified Code(s): S72.001A - Fracture of unspecified part of neck of right femur, initial encounter for closed fracture (4) Anemia in chronic kidney disease Assessment/Plan: received 1 u pRBC transfusion Code(s): N18.9 - CHRONIC KIDNEY DISEASE, UNSPECIFIED; D63.1 - ANEMIA IN CHRONIC KIDNEY DISEASE Qualifiers: Chronic kidney disease stage: stage 2 (mild) Qualified Code(s): N18.2 - Chronic kidney disease, stage 2 (mild); D63.1 - Anemia in chronic kidney disease (5) Atrial fibrillation Assessment/Plan: chronic Eliquis 2.5 bid held due to hematuria Code(s): I48.91 - UNSPECIFIED ATRIAL FIBRILLATION Qualifiers: Atrial fibrillation type: paroxysmal Qualified Code(s): I48.0 - Paroxysmal atrial fibrillation (6) CHF (congestive heart failure) Assessment/Plan: D/c IVF, diuretics as needed Code(s): I50.9 - HEART FAILURE, UNSPECIFIED Qualifiers: Heart failure type: combined systolic and diastolic Heart failure regional marketing manager nicity: chronic Qualified Code(s): I50.42 - Chronic combined systolic (congestive) and diastolic (congestive) heart failure (7) Coronary artery disease Assessment/Plan: Code(s): I25.10 - ATHSCL HEART DISEASE OF [place] CORONARY ARTERY W/O ANG PCTRS Qualifiers: Coronary Disease-Associated Artery/Lesion type: [place] artery [place] vs. transplanted heart: [place] heart Associated angina: without angina Qualified Code(s): I25.10 - Atherosclerotic heart disease of [place] coronary artery without angina pectoris Assessment/Plan 1. Post right femur gamma nail insertion 2. Coronary artery disease post percutaneous coronary intervention angina pectoris 3. Diastolic left ventricular dysfunction with clinical class 0 [place] [employer] classification left ventricular failure 4. Persistent atrial fibrillation off chronic anticoagulation therapy with DOA post-op 5. Hypertensive vascular disease 6. Diabetes mellitus 7. Acute on chronic kidney disease 8. Anemia and thrombocytopenia 9. Sacral decub ulcer PLAN: 1. Renal input noted 2. Not on anticoagulation due to hematuria and anemia, to resume once hemostasis assured 3. Continue Coreg 25 mg BID, Hydralazine 25 mg BID and Lipitor 80 mg QHS 4. Resumed oral diuretics with monitor diuretic response, renal function and electrolytes. 5. Comfort care per family wishes, mechanical DVT prophylaxis Patient is to follow-up with his pipe line walker Dr. Beau Chacon upon discharge
[2019-12-16] MEDS: COLLAGENASE CLOSTRIDIUM HIST. 30 GRAMS TUBE TP SCH (11:24)
== END 2019-12-16 11:28 | disposition hospice, inpatient (51) | DRG 480 ==
LOC: JER 11:59 → JERBED 14:21 → J6S 16:00
PROVIDERS: ADMIT Internal Medicine; ATTEND Internal Medicine
PROC: 30233N1 Transfusion of Nonautologous Red Blood Cells into Peripheral Vein, Percutaneous Approach (ICD-10-PCS; 2019-11-28)
PROC: 0QS606Z Reposition Right Upper Femur with Intramedullary Internal Fixation Device, Open Approach (ICD-10-PCS; principal; 2019-11-29 11:00)
DX: S72.144A Nondisplaced intertrochanteric fracture of right femur, initial encounter for closed fracture (principal); E43 Unspecified severe protein-calorie malnutrition; L89.153 Pressure ulcer of sacral region, stage 3; I13.0 Hypertensive heart and chronic kidney disease with heart failure and stage 1 through stage 4 chronic kidney disease, or unspecified chronic kidney disease; N17.9 Acute kidney failure, unspecified; I50.42 Chronic combined systolic (congestive) and diastolic (congestive) heart failure; R64 Cachexia; I48.0 Paroxysmal atrial fibrillation; N18.3 Chronic kidney disease, stage 3 (moderate); E11.9 Type 2 diabetes mellitus without complications; E78.5 Hyperlipidemia, unspecified; I25.10 Atherosclerotic heart disease of native coronary artery without angina pectoris; E87.5 Hyperkalemia; N40.0 Benign prostatic hyperplasia without lower urinary tract symptoms; D63.1 Anemia in chronic kidney disease; D69.6 Thrombocytopenia, unspecified; R31.0 Gross hematuria; Z95.5 Presence of coronary angioplasty implant and graft; W19.XXXA Unspecified fall, initial encounter; Y93.9 Activity, unspecified; Y92.89 Other specified places as the place of occurrence of the external cause; Y99.9 Unspecified external cause status
CPT/HCPCS: 36415; 36430; 36511; 70450-TC; 71045-TC-FY; 72125-TC; 73523-TC-FY; 76000-TC-FY; 76775-TC; 76856-TC; 80048; 80053; 81003; 82436; 82550; 82565; 82962; 83735; 84100; 84133; 84153; 84156; 84300; 85025; 85027; 85384; 85610; 85730; 86850; 86870; 86900; 86901; 86902; 86922; 87086; 93005; 93010; 94760; 97116-GP; 97161-GP; 99285-25; J0131; P9038; P9058; U0003